=== PATIENT | female | born 1965 | race Two or more races ===

== ENCOUNTER 2020-07-01 09:22 | Outpatient (REF) | payer MEDICAID, SELFPAY ==
[2020-07-01 10:48] LABS: MANUAL DIFF FLAG NO
[2020-07-01 10:57] LABS: Basophils Absolute Auto 0.1 X10*3/uL (0.0-0.2); Eosinophils Absolute Auto 0.1 X10*3/uL (0.0-0.4); Eosinophils Percent Auto 1.7 % (0-4); Hematocrit 44.6 % (37-47); Hemoglobin 14.4 g/dl (12.0-16.0); Imm Gran Abs Auto 0.01 X10*3/uL (0.00-0.03); Imm Gran Pct Auto 0.2 % (0.0-0.4); Lymphocytes Absolute Auto 1.9 X10*3/uL (1.2-4.9); Lymphocytes Percent Auto 39.4 % (20-40); Mean Corpuscular HGB Conc 32.3 g/dl (31.0-35.0); Mean Corpuscular Hemoglobin 28.2 pg (27.0-33.0); Mean Corpuscular Volume 87.3 fL (80-98); Mean Platelet Volume 8.8 fL (9.4-12.3); Monocytes Absolute Auto 0.4 X10*3/uL (0.1-1.2); Monocytes Percent Auto 7.5 % (2-11); Neutrophils Absolute Auto 2.4 X10*3/uL (2.0-8.3); Neutrophils Percent Auto 50.2 % (45-73); Platelet Count 312 X10*3/uL (160-400); Red Blood Count 5.11 X10*6/uL (4.20-5.50); Red Cell Distribution Width 13.7 % (11.0-16.0); White Blood Count 4.8 X10*3/uL (4.8-10.8)
[2020-07-01 11:02] LABS: Estimated Average Glucose 114 mg/dL; Hemoglobin A1c % 5.6 %
[2020-07-01 11:30] LABS: Alanine Aminotransferase 14 U/L (0-31); Albumin Level 4.2 g/dL (3.5-5.0); Alkaline Phosphatase 110 U/L (39-117); Anion Gap 10 (12-20); Aspartate Amino Transferase 17 U/L (5-31); Bilirubin Total 1.2 mg/dL (0.0-1.0); Blood Urea Nitrogen 9 mg/dL (9-16); C Reactive Protein 0.04 mg/dL (< or = 0.50); Calcium 8.8 mg/dL (8.4-10.2); Carbon Dioxide 32 mmol/L (22-29); Chloride 102 mmol/L (96-108); Cholesterol 201 mg/dL; Estimated Glomerular Filt Rate > 60; Glucose Random 91 mg/dL (60-115); HDL Cholesterol 63 mg/dL; Iron 91 mcg/dL (30-160); LDL Cholesterol Calculated 127 mg/dl; Percent Iron Saturation 20 % (15-50); Potassium 3.9 mmol/l (3.3-5.1); Sodium 140 mmol/L (135-145); Total Iron Binding Capacity 457 mcg/dL (228-428); Triglycerides 58 mg/dL; Unsaturated Iron Binding 366 ug/dL
[2020-07-01 11:52] LABS: Ferritin 16 ng/mL (10-250); TSH reflex Free T4 0.67 mIU/mL (0.32-4.0); Vitamin D 25-OH Total 29.8 ng/mL (>30)
[2020-07-01 12:00] LABS: Vitamin B12 728 pg/mL (200-900)
[2020-07-02 12:11] LABS: Insulin Level Total 3.3 uIU/mL
[2020-07-02 22:57] LABS: Calcium (PTHI) 9.3 mg/dL (8.6-10.4); PTHI 36 pg/mL (14-64)
[2020-07-04 01:12] LABS: Zinc 63 mcg/dL (60-130)
[2020-07-05 12:52] LABS: Vitamin B1 6 nmol/L (8-30)
[2020-07-06 10:31] LABS: Vitamin A 37 mcg/dL (38-98)
== END 2020-07-01 09:23 | disposition home or self-care (01) ==
LOC: HO.LAB 09:22
PROVIDERS: Visit Provider Physician Assistant
DX: Z01.419 Encounter for gynecological examination (general) (routine) without abnormal findings (principal); Z98.84 Bariatric surgery status
CPT/HCPCS: 36415; 80053; 80061; 82306; 82607; 82728; 82746; 83036; 83525; 83540; 83970; 84425; 84443; 84590; 84630; 85025; 86140

== ENCOUNTER 2020-08-08 10:07 | Outpatient (REF) | payer MEDICAID, SELFPAY ==
[2020-08-08 11:05] LABS: Hematocrit 45.2 % (37-47); Hemoglobin 14.3 g/dl (12.0-16.0); Mean Corpuscular HGB Conc 31.6 g/dl (31.0-35.0); Mean Corpuscular Hemoglobin 27.8 pg (27.0-33.0); Mean Corpuscular Volume 87.8 fL (80-98); Mean Platelet Volume 8.7 fL (9.4-12.3); Platelet Count 317 X10*3/uL (160-400); Red Blood Count 5.15 X10*6/uL (4.20-5.50); Red Cell Distribution Width 13.3 % (11.0-16.0); White Blood Count 5.7 X10*3/uL (4.8-10.8)
[2020-08-08 11:15] LABS: Glucose Urine UA NEG (NEG); Leukocyte Esterase Urine TRACE (NEG); Nitrite Urine NEG (NEG); PH 6.5 (5.0-8.0); Urine Blood NEG (NEG); Urine Ketones NEG (NEG); Urine Protein NEG (NEG-TRACE)
[2020-08-08 11:16] LABS: Appearance Urine CLEAR; Color Urine YELLOW
[2020-08-08 11:23] LABS: Estimated Average Glucose 111 mg/dL; Hemoglobin A1c % 5.5 %
[2020-08-08 11:24] LABS: Anion Gap 12 (12-20); Blood Urea Nitrogen 7 mg/dL (9-16); C Reactive Protein 0.03 mg/dL (< or = 0.50); Calcium 9.4 mg/dL (8.4-10.2); Carbon Dioxide 29 mmol/L (22-29); Chloride 104 mmol/L (96-108); Cholesterol 190 mg/dL; Estimated Glomerular Filt Rate > 60; Glucose Random 90 mg/dL (60-115); HDL Cholesterol 65 mg/dL; Iron 125 mcg/dL (30-160); LDL Cholesterol Calculated 110 mg/dl; Percent Iron Saturation 27 % (15-50); Potassium 3.8 mmol/l (3.3-5.1); Sodium 141 mmol/L (135-145); Total Iron Binding Capacity 464 mcg/dL (228-428); Triglycerides 75 mg/dL; Unsaturated Iron Binding 339 ug/dL
[2020-08-08 11:50] LABS: TSH reflex Free T4 1.06 mIU/mL (0.32-4.0); Vitamin D 25-OH Total 28.5 ng/mL (>30)
[2020-08-08 12:01] LABS: Vitamin B12 610 pg/mL (200-900)
[2020-08-08 12:15] LABS: Mucus Urine 1+ /LPF; RBC Urine 0 /HPF (0); Renal Epithelial Cells Urine TRACE /LPF; Squamous Epithelial Cell Urine TRACE /LPF
[2020-08-08 12:23] LABS: Ferritin 14 ng/mL (10-250)
[2020-08-09 08:42] LABS: HIV AB/AG Nonreactive (Nonreactive); HIV Num 1 0.14 S/CO (0.00-0.99)
[2020-08-09 09:40] LABS: ~HepC Num1 0.07 S/CO (0.00-0.79); ~Hepatitis C Antibody Nonreactive (Nonreactive)
== END 2020-08-08 10:08 | disposition home or self-care (01) ==
LOC: HO.LAB 10:07
PROVIDERS: Visit Provider Nurse Practitioner Primary Care
DX: Z00.00 Encounter for general adult medical examination without abnormal findings (principal); R10.31 Right lower quadrant pain; R30.0 Dysuria; Z98.84 Bariatric surgery status
CPT/HCPCS: 36415; 80048; 80061; 81001; 82306; 82607; 82728; 82746; 83036; 83540; 84443; 85027; 86140; 86803; 87086; 87389

== ENCOUNTER 2020-08-13 12:26 | Outpatient (REF) | payer MEDICAID, SELFPAY ==
--- NOTE | 2020-08-13 12:29 | CT_ITS ---
EXAMINATION: CT ABDOMEN AND PELVIS WITHOUT CONTRAST CLINICAL INFORMATION: Right lower quadrant pain. COMPARISON: None. TECHNIQUE: Multidetector volumetric imaging was performed from the superior aspect of the liver through the pubic symphysis. Sagittal and coronal reformatted images were obtained on the technologist's workstation. This CT examination was performed using dose optimization techniques as appropriate, variously including the following: *Automated exposure control *Adjustment of mA and/or kV according to patient size (this includes techniques or standardized protocols for targeted exams where dose is matched to indication/reason for exam; i.e. extremities or head) *Use of iterative reconstruction technique DLP: 365 mGy-cm FINDINGS: LUNG BASES: The visualized lung bases are unremarkable. LIVER, GALLBLADDER, AND BILIARY TREE: The liver is normal in size, shape, and attenuation. No focal hepatic lesion or biliary ductal dilatation is present. The gallbladder has been surgically removed. PANCREAS: Unremarkable. SPLEEN: Unremarkable. ADRENAL GLANDS: Unremarkable. KIDNEYS AND URETERS: The kidneys are normal in size, shape, and attenuation. No hydronephrosis, hydroureter, or calculi seen. No perinephric stranding. BLADDER: Unremarkable. GASTROINTESTINAL TRACT: There is large amount of stool seen throughout the colon without significant distention. The small bowel loops are opacified with oral contrast and are normal caliber. Appendix is not visualized. There are surgical ld in the right lower quadrant, likely from previous appendectomy. ABDOMINAL WALL: No significant hernia is appreciated. LYMPH NODES: Normal. VASCULAR: Unremarkable. PELVIC VISCERA: No free fluid. OSSEOUS STRUCTURES: There are degenerative disc changes with vacuum disc phenomena L5-S1 disc level. No lytic or sclerotic process seen. CT/CT abdomen pelvis wo con IMPRESSION: Significant constipation with large amount of stool seen in the right colon and right lower quadrant. Surgical ld in the right lower quadrant, likely from previous appendectomy. Correlate clinically. The gallbladder has been surgically removed.
== END 2020-08-13 12:27 | disposition home or self-care (01) ==
LOC: HO.CT 12:26
PROVIDERS: Visit Provider Nurse Practitioner Primary Care
DX: R10.31 Right lower quadrant pain (principal)
CPT/HCPCS: 74176

== ENCOUNTER 2020-08-20 08:46 | Outpatient (REF) | payer MEDICAID, SELFPAY ==
--- NOTE | 2020-08-20 08:58 | MM_ITS ---
EXAMINATION: MM SCREENING DIGITAL BREAST TOMOSYNTHESIS, BILATERAL CLINICAL INFORMATION: Screening. Asymptomatic. The lifetime risk of breast cancer based on the Tyrer-Cuzick Model is 8%. COMPARISON: Mammography: 11/08/2018, 07/12/2017, 07/09/2015, 08/31/2013, 03/24/2013, 02/15/2012 TECHNIQUE: Digital breast tomosynthesis is performed in both the craniocaudal and mediolateral oblique views along with computer-aided detection (CAD). Synthesized 2D images are generated from the tomosynthesis. FINDINGS: There are scattered areas of fibroglandular density (ACR BI-RADS breast composition Category b). The breast parenchyma is similar to prior exam. There is no developing density or interval mass or architectural abnormality. There are no abnormal calcifications in either breast. The left MLO view has probable axillary node 12-13 cm from nipple measuring 0.6 x 0.4 cm. This appears high attenuation and margins are ill-defined. Patient will be recalled to further characterize. MM/MM tomosynthesis screening BI IMPRESSION: 1. Left: High attenuation nodule under 1 cm with ill-defined margins left axilla, likely node. 2. Right: No mammographic evidence of malignancy. ASSESSMENT: BI-RADS 0: Incomplete - Need Additional Imaging Evaluation RECOMMENDATION: 1. Additional views of the left breast (3-D spot MLO, 2-D magnification MLO). 2. Targeted ultrasound if warranted after review of the additional views. 3. Radiology department staff will contact the patient for additional imaging. This patient's information was entered into a reminder system with a target due date for their next mammogram.
== END 2020-08-20 08:47 | disposition home or self-care (01) ==
LOC: HO.MAMMO 08:46
PROVIDERS: Visit Provider Obstetrics & Gynecology
DX: Z12.31 Encounter for screening mammogram for malignant neoplasm of breast (principal)
CPT/HCPCS: 77063; 77067

== ENCOUNTER 2020-09-18 14:31 | Outpatient (REF) | payer MEDICAID, SELFPAY ==
--- NOTE | 2020-09-18 14:36 | US_ITS ---
EXAMINATION: US DIAGNOSTIC BREAST, LEFT MM DIAGNOSTIC BREAST, LEFT CLINICAL INFORMATION: High attenuation nodule in the left axilla. COMPARISON: 08/20/2020 and studies dating back to 08/31/2013. TECHNIQUE Ultrasound of the breast is performed with real-time grissom scale imaging and color Doppler. Diagnostic left mammography consisting of mediolateral oblique spot compression imaging with tomosynthesis. FINDINGS: MAMMOGRAM: Mammography views of the left axilla demonstrate a 6 x 5 mm poorly circumscribed density with calcifications throughout. No rim calcifications are present. It is noted that the patient has a large number of tattoos about her chest and arm, however, they have been present for many years and the finding of the calcified density is new compared to prior studies. Patient denies rheumatoid arthritis with goal treatments. ULTRASOUND: Targeted ultrasound evaluation about the left axilla did not demonstrate any abnormal cystic or solid masses. Normal-appearing lymph nodes are present without cortical thickening or lobulation. Results are discussed with the patient at time of visit. US/US breast LT limited IMPRESSION: 1. Indeterminate poorly circumscribed lesion containing a large number of indeterminate calcifications. 2. No ultrasound correlate is identified. ASSESSMENT: BI-RADS 4: Suspicious. RECOMMENDATION: Attempt at stereotactic core biopsy. If this is not possible, would recommend needle localization with surgical excision. Patient would not stay for attempt to see if lesion could be imaged with stereotactic guidance. Report will be called by [facility] patient navigator when the office is next open.
--- NOTE | 2020-09-18 14:36 | MM_ITS ---
EXAMINATION: MM DIAGNOSTIC DIGITAL BREAST TOMOSYNTHESIS, LEFT CLINICAL INFORMATION: Calcified nodule left axilla. COMPARISON: 08/20/2020 and studies dating back to 08/31/2013. TECHNIQUE Diagnostic left mammography consisting of mediolateral oblique spot compression imaging with tomosynthesis. FINDINGS: Breast parenchyma is a mixture of fibroglandular tissue (ACR BI-RADS breast density composition category B) Mammography views of the left axilla demonstrate a 6 x 5 mm poorly-circumscribed density with calcifications throughout. It is noted that the patient has a large number of tattoos about her chest and arm, however, they have been present for many years and the finding of the calcified density is new compared to prior studies. Patient denies rheumatoid arthritis with gold treatments. Results are discussed with the patient at time of visit. MM/MM tomosynthesis added views L IMPRESSION: Indeterminate poorly-circumscribed lesion containing a large number of indeterminate calcifications. No ultrasound correlate is identified. ASSESSMENT: BI-RADS 4: Suspicious RECOMMENDATION: Attempt at stereotactic core biopsy. If this is not possible would recommend needle localization with surgical excision. Patient would not stay for attempt to see if lesion could be imaged with stereotactic guidance. Report will be called by [facility] patient navigator when the office is next open.
== END 2020-09-18 14:32 | disposition home or self-care (01) ==
LOC: HO.MAMMO 14:31
PROVIDERS: Visit Provider Obstetrics & Gynecology
DX: R92.8 Other abnormal and inconclusive findings on diagnostic imaging of breast (principal); E21.3 Hyperparathyroidism, unspecified
CPT/HCPCS: 76642; 77061; 77065

== ENCOUNTER → 2020-09-19 12:21 | Outpatient (BNVA) | payer MEDICAID, SELFPAY | PROVIDERS: Visit Provider Obstetrics & Gynecology ==

== ENCOUNTER 2020-10-29 09:11 | Outpatient (REF) | payer MEDICAID, SELFPAY ==
--- NOTE | ~2020-10-29 | US_ITS ---
EXAMINATION: STEREOTACTIC TOMOSYNTHESIS-GUIDED VACUUM-ASSISTED BREAST BIOPSY, LEFT US BREAST ULTRASOUND LIMITED, LEFT SPECIMEN RADIOGRAPH, LEFT POST PROCEDURE DIGITAL MAMMOGRAM, LEFT CLINICAL INFORMATION: Oval nodule upper left breast 0.6 x 0.4 cm with dense attenuation. Numerous tattoos on extremities and torso. Also history gold therapy for rheumatoid arthritis. Patient also notes history uterine cancer. COMPARISON: Mammography 09/18/2020, 08/20/2020, targeted left breast ultrasound 09/18/2020. TECHNIQUE/PROCEDURE: Informed consent was obtained from the patient after discussion of the benefits, risks, and alternatives to biopsy today. Patient appeared to understand. Gave opportunity for questions. Patient signed consent form. PRELOCALIZATION MAMMOGRAPHY: Prior to procedure, 3 localization with digital mammography is performed with fenestrated paddle and imaging in MLO x3, CC, and exaggerated CC views. BB placed over the site of high attenuation nodule upper left breast, 15 cm from nipple. The high attenuation nodule is only visible in the MLO view and not visible on the CC or exaggerated CC projections. US LIMITED BREAST, LEFT: Ultrasound is targeted to the horizontal plane along the 3 localization BB. This included ultrasound of the left axilla. No cystic or solid mass or lymphadenopathy is demonstrated. There is no specular echo with posterior shadowing to correspond to the recent mammographic finding. STEREOTACTIC BIOPSY, LEFT: BIOPSY TABLE: [employer] Prone Biopsy System. Patient prone oblique with arm through hole. LESION: High attenuation nodule posterior upper outer quadrant. LOCAL ANESTHESIA: 8 mL 1% lidocaine; 10 mL 1% lidocaine with epinephrine. DERMATOTOMY: Single skin clayton dermatotomy performed. NEEDLE: [employer] Eviva 9-gauge vacuum assisted core biopsy device. APPROACH: lateral medial. TARGETING: Digital breast tomosynthesis used for targeting. CORES: 6. CLIP: [employer] SecurMark Cylinder-shaped marker. SPECIMEN RADIOGRAPH: Specimen radiograph is taken in separate room using digital mammography. There is dense compact high attenuation in 2 of the cores consistent with the targeted nodule. POST PROCEDURE UNILATERAL DIGITAL MAMMOGRAM: The post biopsy mammogram is performed in separate room using separate digital mammography equipment from the biopsy procedure. Single MLO view is obtained. There are scattered areas of fibroglandular density (breast composition category: b). The clip marker is in position. The high attenuation nodule is no longer demonstrated with certainty. No gross hematoma. The patient tolerated the procedure well. No immediate complications. Home instructions reviewed with the patient. Final pathology results are pending. US/US breast LT limited IMPRESSION: 1. Digital tomosynthesis-guided core biopsy left breast with clip placement. 2. Specimen radiograph taken and post procedure mammogram. There is satisfactory positioning of the biopsy clip. 3. Final pathology results pending. An addendum report will be issued.
== END 2020-10-29 09:12 | disposition home or self-care (01) ==
LOC: HO.MAMMO 09:11
PROVIDERS: PCP Surgery; Visit Provider Surgery
DX: R92.8 Other abnormal and inconclusive findings on diagnostic imaging of breast (principal); N64.52 Nipple discharge; Z79.899 Other long term (current) drug therapy
CPT/HCPCS: 19081; 76642; 88305; 99202; A4648

== ENCOUNTER → 2020-11-01 08:13 | Outpatient (BNVA) | payer MEDICAID, SELFPAY | PROVIDERS: PCP Surgery; Visit Provider Physician Assistant | DX: R92.8 Other abnormal and inconclusive findings on diagnostic imaging of breast (principal); Z98.84 Bariatric surgery status; Z79.899 Other long term (current) drug therapy | CPT/HCPCS: 99212 ==

== ENCOUNTER → 2020-11-20 10:02 | Outpatient (BNVA) | payer MEDICAID, SELFPAY | PROVIDERS: Visit Provider Internal Medicine Endocrinology, Diabetes & Metabolism ==

== ENCOUNTER 2021-06-04 22:55 | Emergency (ER) | payer MEDICAID, SELFPAY ==
[2021-06-04 23:34] VITALS: BP 126/90; PULSE 77; RESP 18; TEMP 36.6; O2SAT 99; BMI 23.3
[2021-06-05] MEDS: Ibuprofen 800 MG TABLET PO (00:38)
[2021-06-05] MEDS: Acetaminophen 325 MG TABLET 650 MG PO (00:38)
[2021-06-05] MEDS: Amoxicillin/Potassium Clav 875 MG TABLET PO (00:39)
--- NOTE | 2021-06-05 00:42 | ED.GENADULT ---
HPI - General Adult General Chief complaint: Skin/Abscess/Foreign Body Stated complaint: fb in ear/earache Time Seen by Provider: 06/05/21 00:29 Source: patient Mode of arrival: ambulatory Limitations: no limitations History of Present Illness HPI narrative: Patient presents to the ED for right ear pain. Patient states she had cotton swab qtip that was present for 2 weeks and now having ear pain. patient denies any recent ear trauma, ear discharge, bleeding from ears, headache, nausea, emesis, or dizziness. Related Data Home Medications Medication Instructions Recorded Confirmed cyanocobalamin (vitamin B-12) 1,000 mcg PO DAILY 07/05/20 11/20/20 1,000 mcg capsule Previous Rx's Medication Instructions Recorded levothyroxine 25 mcg capsule 25 mcg PO DAILY #30 cap 08/27/20 imipramine HCl 10 mg tablet 10 mg PO BID 90 Days #180 tab 02/14/21 pediatric multivitamin no.17 1 tab PO DAILY #30 tab 02/19/21 calcium citrate 250 mg PO TID #90 tab 03/27/21 cholecalciferol (vitamin D3) 50 50 mcg PO DAILY #30 cap 03/27/21 mcg (2,000 unit) capsule gabapentin 100 mg capsule 100 mg PO TID #270 cap 04/15/21 tramadol 50 mg tablet 50 mg PO TID PRN #90 tab 04/15/21 amoxicillin 875 mg-potassium 1 tab PO Q12H 10 Days #20 tab 06/05/21 clavulanate 125 mg tablet (Augmentin) naproxen 500 mg tablet 500 mg PO BID PRN #20 tab 06/05/21 Allergies Allergy/AdvReac Type Severity Reaction Status Date / Time ondansetron [From ZOFRAN] Allergy Unknown per H&P Verified 10/29/20 08:42 sumatriptan [From IMITREX] Allergy Unknown RASH FROM Verified 10/29/20 08:42 TABLET NOT INJECTION promethazine [From PHENERGAN] AdvReac Severe DYSTONIA Verified 10/29/20 08:42 Review of Systems Review of Systems: Yes all other systems are reviewed and are negative Constitutional: Constitutional: Reports as per HPI and Reports no additional constitutional complaints Eyes: Eyes: Reports as per HPI and Reports no additional eye complaints ENT: Reports system reviewed and no additional complaints, except as documented, Reports as per HPI and Reports otalgia Cardiovascular: Cardiovascular: Reports as per HPI and Reports no additional cardiovascular complaints Respiratory: Respiratory: Reports as per HPI and Reports no additional respiratory complaints Gastrointestinal: Gastrointestinal: Reports as per HPI and Reports no additional gastrointestinal complaints Genitourinary: Genitourinary: Reports no additional female genitourinary complaints and Reports as per HPI Musculoskeletal: Musculoskeletal: Reports no additional musculoskeletal complaints and Reports as per HPI Integumentary/Breasts: Skin/Breast: Reports system reviewed and no additional complaints, except as docu and Reports as per HPI Neurologic: Reports system reviewed and no additional complaints, except as documented and Reports as per HPI Psychiatric: Psychiatric: Reports no additional psychiatric complaints and Reports as per HPI [facility] Past Medical History Medical History (Updated 06/05/21 @ 00:44 by RAMONE Desir) History of secondary hyperparathyroidism Hyperparathyroidism Surgical History H/O left breast biopsy H/O: hysterectomy History of appendectomy History of bilateral tubal ligation S/P gastric bypass Family History Family History Mother Uterine cancer Social History Social History Alcohol intake: never Advance Directives: No Advance Directives Information Provided: No Patient : No Sexual orientation: Straight/Heterosexual Gender identity: Female Physical Exam Vital Signs: Vital Signs: Last Vital Signs Temp 97.9 F 06/04/21 23:34 Pulse 77 06/04/21 23:34 Resp 18 06/04/21 23:34 BP 126/90 H 06/04/21 23:34 Pulse Ox 99 06/04/21 23:34 Body Mass Index 23.3 Const: General: cooperative, healthy appearing, comfortable, no acute distress and well developed Orientation/consciousness: patient oriented x3 HENMT: Other: Ear exams negative for any foreign body or cotton swab. Head: Yes normal to inspection, Yes No palpable skull fracture present, Yes normocephalic and Yes atraumatic Ears: hearing grossly normal bilaterally, external ears normal and TM abnormal (right ear) erythematous Eyes: General: appearance normal, both eyes and all related structures Neck: Neck: Yes normal visual inspection, Yes full ROM, Yes no lymphadenopathy, Yes no meningeal signs, Yes trachea midline, Yes supple and No tender Chest: Chest palpation & inspection: normal inspection of the chest and normal palpation of entire chest wall Resp: Effort & Inspection: normal respiratory effort and able to speak in complete sentences Cardio: Jugular venous distension: no JVD Heart sounds: S1 normal heart sound present and S2 normal heart sound present GI: Inspection: Yes normal to inspection and No abdominal wall ecchymosis Palpation (GI): Soft to palpation, not firm, nontender, no guarding and not rigid : General: No CVA tenderness and Yes no CVA tenderness Back/Spine/Pelvis: Back: no CVA tenderness, No CVA tenderness and No back tenderness Skin: General skin exam: no rashes or lesions noted and elasticity normal Neuro: General: patient oriented x3, gait normal, no meningeal signs and CN's II-XI intact bilaterally Cranial nerves: Yes CN's II-XII intact bilaterally Extrem: General: Yes normal to inspection and Yes full ROM Psych: Appearance: grossly normal, well kempt and not disheveled Course Course Course Narrative: Ear exam negative for foreign body. Reevaluation(s) Reevaluation #1: Ear exam shows otitis media. patient discharged with antibiotics. Time: 00:58 Medical Decision Making [facility] Narrative Medical decision making narrative: Otitis media Discharge Plan Discharge Clinical Impression: Otitis media Patient Disposition: Home, Self-Care Instructions: Ear Infection (ED) Additional Instructions: Return to the ED immediately for worsening ear pain, swelling, redness, pus discharge, headache, foul odor, fever, chills, or any other concerning symptoms. Prescriptions: New amoxicillin-pot clavulanate [Augmentin] 875-125 mg tablet 1 tab PO Q12H 10 Days Qty: 20 RF: 0 naproxen 500 mg tablet 500 mg PO BID PRN (Reason: pain) Qty: 20 RF: 0 No Action cyanocobalamin (vitamin B-12) 1,000 mcg capsule 1,000 mcg PO DAILY RF: 0 levothyroxine 25 mcg capsule 25 mcg PO DAILY Qty: 30 RF: 3 imipramine HCl 10 mg tablet 10 mg PO BID 90 Days Qty: 180 RF: 0 pediatric multivitamin no.17 Tablet,Chewable 1 tab PO DAILY Qty: 30 RF: 8 calcium citrate 250 mg calcium tablet 250 mg PO TID Qty: 90 RF: 0 cholecalciferol (vitamin D3) 50 mcg (2,000 unit) capsule 50 mcg PO DAILY Qty: 30 RF: 11 gabapentin 100 mg capsule 100 mg PO TID Qty: 270 RF: 0 tramadol 50 mg tablet 50 mg PO TID PRN (Reason: pain) Qty: 90 RF: 2 Stand Alone Forms: Work/School Release Print Language: Indonesian
== END 2021-06-05 01:07 | disposition home or self-care (01) ==
PROVIDERS: Emergency Provider Internal Medicine
DX: H66.91 Otitis media, unspecified, right ear (principal)
CPT/HCPCS: 99283; 99284

== ENCOUNTER 2021-07-01 06:28 | Day surgery (SDC) | payer MEDICAID, SELFPAY ==
--- NOTE | 2021-06-30 10:53 | HO.ANESPROP2 ---
Documented by User: Shey Marrufo NP 06/30/21 10:54 HPI - Anesthesia Eval Consult details Narrative: 56yo F for Colonoscopy PMFSH Active Problems Active Problems: All Active Problems (Updated 06/06/21 @ 00:01 by Mary Sevilla) History of secondary hyperparathyroidism (Acute) Abnormal mammogram (Acute) Hyperparathyroidism (Acute) Well woman exam (Acute) Past Medical History Medical History History of secondary hyperparathyroidism Hyperparathyroidism Family History Family History Mother Uterine cancer Surgical History Surgical History H/O left breast biopsy H/O: hysterectomy History of appendectomy History of bilateral tubal ligation S/P gastric bypass Social History Social History Alcohol intake: never Patient Tobacco Use Status: Never used Tobacco Use of substances other than those prescribed or required for medical reasons: No Are you DNR?: No Advance Directives: No Advance Directives Information Provided: Yes Recently lost weight without trying: No Nutrition Risks: No Nutritional Risk Sexual orientation: Straight/Heterosexual Gender identity: Female Meds Allergies Allergy/AdvReac Type Severity Reaction Status Date / Time ondansetron [From ZOFRAN] Allergy Unknown per H&P Verified 10/29/20 08:42 sumatriptan [From IMITREX] Allergy Unknown RASH FROM Verified 10/29/20 08:42 TABLET NOT INJECTION promethazine [From PHENERGAN] AdvReac Severe DYSTONIA Verified 10/29/20 08:42 Home Medications Medication Instructions Recorded Confirmed Last Taken Type cyanocobalamin (vitamin B-12) 1,000 mcg PO DAILY 07/05/20 11/20/20 Unknown History 1,000 mcg capsule Exam Exam Date and Time: June 30, 2021 105 Assessment and Plan Assessment Anesthesia Assessment: Chart Reviewed Documented by User: Cristiane Valdez MD 07/01/21 07:52 [facility] Past Medical History Medical History History of secondary hyperparathyroidism Hyperparathyroidism Family History Family History Mother Uterine cancer Family history of problems with anesthesia: No Surgical History Surgical History H/O left breast biopsy H/O: hysterectomy History of appendectomy History of bilateral tubal ligation S/P gastric bypass History of Problems with Anesthesia: No Social History Social History Alcohol intake: never Patient Tobacco Use Status: Never used Tobacco Use of substances other than those prescribed or required for medical reasons: No Are you DNR?: No Advance Directives: No Advance Directives Information Provided: Yes Recently lost weight without trying: No Nutrition Risks: No Nutritional Risk Sexual orientation: Straight/Heterosexual Gender identity: Female Meds Allergies Allergy/AdvReac Type Severity Reaction Status Date / Time ondansetron [From ZOFRAN] Allergy Unknown per H&P Verified 10/29/20 08:42 sumatriptan [From IMITREX] Allergy Unknown RASH FROM Verified 10/29/20 08:42 TABLET NOT INJECTION promethazine [From PHENERGAN] AdvReac Severe DYSTONIA Verified 10/29/20 08:42 Home Medications Medication Instructions Recorded Confirmed Last Taken Type cyanocobalamin (vitamin B-12) 1,000 mcg PO DAILY 07/05/20 11/20/20 Unknown History 1,000 mcg capsule Exam Height,Weight and Vital Signs: Height 5 ft 5 in Weight 65.771 kg Vital Signs Temp Pulse Resp BP 07/01/21 06:40 97.4 F 78 16 141/117 H Airway Mallampati Class: II TM Dist: >3cm Neck ROM: Full Loose/Missing/Broken Teeth: Yes (Some broken) Heart: RRR Lungs: CTAB Assessment and Plan Final Anesthetic Review Family History of Problems with Anesthesia: No History of Problems with Anesthesia: No NPO: Yes ASA Class: II Final Preanesthetic Review: No Changes in Pt Med Stat, Meds/Allgs Chart Reviewed, Consent Obtained/Reviewed and Anes Risks/Benef Reviewed Patient Risk: Low Procedure Risk: Low Assessment/Block/Sedation in SS: Assess/Block/Sedation-SS Anesthetic Plan Anesthetic Plan: MAC: Disposition: Standard PACU
[2021-07-01 06:32] VITALS: BMI 24.1
[2021-07-01 06:40] VITALS: BP 141/117; PULSE 78; RESP 16; TEMP 36.3
[2021-07-01] MEDS: Lactated Ringers 1,000 ML 100 ML IVCONT (06:59)
--- NOTE | 2021-07-01 07:32 | MHC.SHP ---
Pre-Procedural Eval Section A Date of Service: 07/01/21 The patient is an INPATIENT: No Changes since office visit: No Cold of Flu in the past 2 weeks, No New Medical Problems, No Changes in Medication and No Patient answered all questions The History & Physical has been completed within 30 days and I have reviewed it.: Yes Section B Chief Complaint: bleeding from rectum Allergies: Allergies Allergy/AdvReac Type Severity Reaction Status Date / Time ondansetron [From ZOFRAN] Allergy Unknown per H&P Verified 10/29/20 08:42 sumatriptan [From IMITREX] Allergy Unknown RASH FROM Verified 10/29/20 08:42 TABLET NOT INJECTION promethazine [From PHENERGAN] AdvReac Severe DYSTONIA Verified 10/29/20 08:42 Plan I have reviewed the history and physical and performed a pertinent physical examination on my patient. No changes have occurred unless specified.
--- NOTE | 2021-07-01 08:08 | PM.OP ---
Brief Operative Note Date of Service: 07/01/21 Pre-op diagnosis: rectal bleeding Post-op diagnosis: same Procedure: colonoscopy Surgeon: Fidencio Vila Anesthesia: MAC Estimated blood loss (mL): 0 Pathology: none sent Condition: stable
[2021-07-01 08:10] VITALS: BP 110/76; PULSE 103; RESP 16; TEMP 36.1; O2SAT 99
[2021-07-01 08:25] VITALS: BP 121/71; PULSE 81; RESP 17; TEMP 36.1; O2SAT 100
--- NOTE | 2021-07-01 11:31 | OP_ITS ---
SURGEON: Fidencio Vila MD INDICATIONS: Rectal bleeding. PREOPERATIVE DIAGNOSIS: POSTOPERATIVE DIAGNOSIS: PROCEDURE PERFORMED: Colonoscopy to the terminal ileum. ESTIMATED BLOOD LOSS: COMPLICATIONS: ANESTHESIA: ASSISTANTS: SPECIMENS: MEDICATIONS: Monitored anesthesia care. DESCRIPTION OF PROCEDURE: History and physical performed. The risks and benefits of the procedure were explained to the patient. Informed consent was obtained. The patient was placed in the left lateral decubitus position. A digital rectal exam was performed and was found to be normal. The Olympus pediatric video colonoscope was introduced into the rectum and advanced to the cecum without difficulty. The cecum was identified by transillumination, palpation, and identification of ileocecal valve. Examination was performed and the scope was removed. She tolerated the procedure well and was taken to recovery area in stable condition. FINDINGS: The terminal ileum was examined and appeared normal. The visualized colonic mucosa was normal. The quality of the prep was good. No polyps were identified. Retroflexed examination was normal. IMPRESSION: Normal colonoscopy. RECOMMENDATIONS: 1. Follow up as needed. 2. Repeat colonoscopy is recommended in 10 years for average risk individuals. MD PEYMAN Roberts/MECHELLE / [id number]
== END 2021-07-01 08:55 | disposition home or self-care (01) ==
PROVIDERS: Visit Provider Internal Medicine Gastroenterology
PROC: 0DJD8ZZ Inspection of Lower Intestinal Tract, Via Natural or Artificial Opening Endoscopic (ICD-10-PCS; CPT 45378; principal; 2021-07-01 07:30)
DX: K62.5 Hemorrhage of anus and rectum (principal); K21.9 Gastro-esophageal reflux disease without esophagitis; K58.9 Irritable bowel syndrome, unspecified; I10 Essential (primary) hypertension; E78.00 Pure hypercholesterolemia, unspecified; G43.909 Migraine, unspecified, not intractable, without status migrainosus; J45.909 Unspecified asthma, uncomplicated; Z79.51 Long term (current) use of inhaled steroids; Z79.899 Other long term (current) drug therapy; Z85.42 Personal history of malignant neoplasm of other parts of uterus; Z98.84 Bariatric surgery status; Z98.51 Tubal ligation status
CPT/HCPCS: 45378

== ENCOUNTER 2021-07-18 10:59 | Day surgery (SDC) | payer MEDICAID, SELFPAY ==
--- NOTE | 2021-07-17 09:40 | P.CONAN_ITS ---
Documented by User: Shey Marrufo NP 07/17/21 09:40 HPI - Anesthesia Eval Consult details Narrative: 56yo F for Upper Endoscopy s/p colo with MAC 07/01/21 PMFSH Active Problems Active Problems: All Active Problems (Updated 06/06/21 @ 00:01 by Mary Sevilla) History of secondary hyperparathyroidism (Acute) Abnormal mammogram (Acute) Hyperparathyroidism (Acute) Well woman exam (Acute) Past Medical History Medical History History of secondary hyperparathyroidism Hyperparathyroidism Family History Family History Mother Uterine cancer Family history of problems with anesthesia: No Surgical History Surgical History H/O left breast biopsy H/O: hysterectomy History of appendectomy History of bilateral tubal ligation S/P gastric bypass History of Problems with Anesthesia: No Social History Social History Alcohol intake: never Patient Tobacco Use Status: Never used Tobacco Second Hand Smoke Exposure: No Use of substances other than those prescribed or required for medical reasons: No Are you DNR?: No Advance Directives: No Advance Directives Information Provided: Yes Advance Directives on File: No Sexual orientation: Straight/Heterosexual Gender identity: Female Meds Allergies Allergy/AdvReac Type Severity Reaction Status Date / Time ondansetron [From ZOFRAN] Allergy Unknown per H&P Verified 10/29/20 08:42 sumatriptan [From IMITREX] Allergy Unknown RASH FROM Verified 10/29/20 08:42 TABLET NOT INJECTION promethazine [From PHENERGAN] AdvReac Severe DYSTONIA Verified 10/29/20 08:42 Home Medications Medication Instructions Recorded Confirmed Last Taken Type cyanocobalamin (vitamin B-12) 1,000 mcg PO DAILY 07/05/20 11/20/20 Unknown History 1,000 mcg capsule Exam Exam Date and Time: July 17, 2021 0940 Assessment and Plan Assessment Anesthesia Assessment: Chart Reviewed Final Anesthetic Review Family History of Problems with Anesthesia: No History of Problems with Anesthesia: No Documented by User: Cristiane Valdez MD 07/18/21 12:25 [facility] Past Medical History Medical History History of secondary hyperparathyroidism Hyperparathyroidism Family History Family History Mother Uterine cancer Surgical History Surgical History H/O left breast biopsy H/O: hysterectomy History of appendectomy History of bilateral tubal ligation S/P gastric bypass Social History Social History Alcohol intake: never Patient Tobacco Use Status: Never used Tobacco Second Hand Smoke Exposure: No Use of substances other than those prescribed or required for medical reasons: No Are you DNR?: No Advance Directives: No Advance Directives Information Provided: Yes Advance Directives on File: No Sexual orientation: Straight/Heterosexual Gender identity: Female Meds Allergies Allergy/AdvReac Type Severity Reaction Status Date / Time ondansetron [From ZOFRAN] Allergy Unknown per H&P Verified 10/29/20 08:42 sumatriptan [From IMITREX] Allergy Unknown RASH FROM Verified 10/29/20 08:42 TABLET NOT INJECTION promethazine [From PHENERGAN] AdvReac Severe DYSTONIA Verified 10/29/20 08:42 Home Medications Medication Instructions Recorded Confirmed Last Taken Type cyanocobalamin (vitamin B-12) 1,000 mcg PO DAILY 07/05/20 11/20/20 Unknown History 1,000 mcg capsule Exam Height,Weight and Vital Signs: Height 5 ft 5 in Weight 65.771 kg Vital Signs Temp Pulse Resp BP Pulse Ox 07/18/21 11:26 98.5 F 81 16 137/89 98 Airway Mallampati Class: II TM Dist: >3cm Neck ROM: Full Loose/Missing/Broken Teeth: Yes (Some broken) Heart: RRR Lungs: CTAB Assessment and Plan Assessment Anesthesia Assessment: Anesthesia Plan Discussed Final Anesthetic Review NPO: Yes ASA Class: II Final Preanesthetic Review: No Changes in Pt Med Stat, Meds/Allgs Chart Reviewed, Consent Obtained/Reviewed and Anes Risks/Benef Reviewed Patient Risk: Low Procedure Risk: Low Assessment/Block/Sedation in SS: Assess/Block/Sedation-SS Anesthetic Plan Anesthetic Plan: MAC: Disposition: Standard PACU
[2021-07-18 11:26] VITALS: BP 137/89; PULSE 81; RESP 16; TEMP 36.9; O2SAT 98; BMI 24.1
[2021-07-18] MEDS: Lactated Ringers 1,000 ML 100 ML IVCONT (11:45)
--- NOTE | 2021-07-18 11:46 | PC.NURSE ---
pt has 6 earrings and 2 rings that are unable to be removed. pt educated on the risks of jewelry remaining during procedure which includes possible burn to area where jewelry is place. pt understands and is agreeable to proceed with procedure.
[2021-07-18] MEDS: Acetaminophen 325 MG TABLET 650 MG PO (12:04)
--- NOTE | 2021-07-18 12:08 | MHC.SHP ---
Pre-Procedural Eval Section A Date of Service: 07/18/21 The patient is an INPATIENT: No Changes since office visit: No Cold of Flu in the past 2 weeks, No New Medical Problems, No Changes in Medication and No Patient answered all questions The History & Physical has been completed within 30 days and I have reviewed it.: Yes Section B Chief Complaint: GERD, Dysphagia Allergies: Allergies Allergy/AdvReac Type Severity Reaction Status Date / Time ondansetron [From ZOFRAN] Allergy Unknown per H&P Verified 10/29/20 08:42 sumatriptan [From IMITREX] Allergy Unknown RASH FROM Verified 10/29/20 08:42 TABLET NOT INJECTION promethazine [From PHENERGAN] AdvReac Severe DYSTONIA Verified 10/29/20 08:42 Plan I have reviewed the history and physical and performed a pertinent physical examination on my patient. No changes have occurred unless specified.
--- NOTE | 2021-07-18 12:48 | PM.OP ---
Brief Operative Note Date of Service: 07/18/21 Pre-op diagnosis: dysphagia, abd pain Post-op diagnosis: same (normal) Surgeon: Fidencio Vila Anesthesia: MAC Was an Foam Machine Operator used for this Procedure?: No Estimated blood loss (mL): 2 Pathology: other (bxs egj, gastric remnant) Condition: stable Disposition: PACU
[2021-07-18 12:55] VITALS: BP 108/71; PULSE 94; RESP 16; TEMP 36.9; O2SAT 99
[2021-07-18 13:10] VITALS: BP 118/75; PULSE 82; RESP 16; O2SAT 100
[2021-07-18 13:23] VITALS: BP 122/81; PULSE 78; RESP 16; TEMP 36.9; O2SAT 100
--- NOTE | 2021-07-18 23:39 | OP_ITS ---
SURGEON: Fidencio Vila MD INDICATIONS: Dysphagia and epigastric pain. PREOPERATIVE DIAGNOSIS: POSTOPERATIVE DIAGNOSIS: PROCEDURE PERFORMED: Upper endoscopy with biopsy. ESTIMATED BLOOD LOSS: COMPLICATIONS: ANESTHESIA: Monitored anesthesia care. ASSISTANTS: SPECIMENS: DESCRIPTION OF PROCEDURE: History and physical performed. The risks and benefits of the procedure were explained to the patient. Informed consent was obtained. The patient was placed in a left lateral decubitus position. The Olympus video gastroscope was introduced into the esophagus, stomach, and small bowel. Examination was performed. The scope was removed. She tolerated the procedure well and was taken to recovery room in stable condition. FINDINGS: ESOPHAGUS: The esophagus was normal. There was no stricture. The EG junction was slightly irregular and this was biopsied. There was no esophagitis. STOMACH: There was a small gastric pouch from her previous gastric bypass surgery. The pouch was normal. Biopsies were obtained from the remnant. There was a small staple visible at the anastomosis. The gastrojejunal anastomosis was normal and wide open. The small bowel was explored for approximately 20 cm and appeared normal. IMPRESSION: 1. Dysphagia. 2. Normal upper endoscopy status post gastric bypass. RECOMMENDATION: Follow up the biopsy results. MD PEYMAN Roberts/MECHELLE / [id number]
== END 2021-07-18 13:44 | disposition home or self-care (01) ==
PROVIDERS: Visit Provider Internal Medicine Gastroenterology
PROC: 0DJ08ZZ Inspection of Upper Intestinal Tract, Via Natural or Artificial Opening Endoscopic (ICD-10-PCS; CPT 43235; principal; 2021-07-18 12:20)
DX: R13.10 Dysphagia, unspecified (principal); K29.50 Unspecified chronic gastritis without bleeding; K21.9 Gastro-esophageal reflux disease without esophagitis; Z90.3 Acquired absence of stomach [part of]; Z98.84 Bariatric surgery status; Z88.8 Allergy status to other drugs, medicaments and biological substances
CPT/HCPCS: 43239; 88305; 88342; J3010

== ENCOUNTER → 2021-08-06 11:41 | Outpatient (BNVA) | payer MEDICAID, SELFPAY | PROVIDERS: Visit Provider Obstetrics & Gynecology ==

== ENCOUNTER 2021-08-28 09:08 | Outpatient (REF) | payer MEDICAID, SELFPAY ==
[2021-08-28 10:21] LABS: Alanine Aminotransferase 30 U/L (0-31); Albumin Level 3.7 g/dL (3.5-5.0); Alkaline Phosphatase 115 U/L (39-117); Anion Gap 8 (12-20); Aspartate Amino Transferase 22 U/L (5-31); Bilirubin Total 0.9 mg/dL (0.0-1.0); Blood Urea Nitrogen 12 mg/dL (9-16); Calcium 9.2 mg/dL (8.4-10.2); Carbon Dioxide 29 mmol/L (22-29); Chloride 106 mmol/L (96-108); Estimated Glomerular Filt Rate > 60; Glucose Fasting 98 mg/dL (60-99); Potassium 3.9 mmol/L (3.3-5.1); Sodium 139 mmol/L (135-145); Total Protein 6.8 g/dL (6.5-8.0)
[2021-08-28 10:44] LABS: Vitamin D 25-OH Total 25.6 ng/mL (>30)
[2021-08-28 10:48] LABS: Hematocrit 39.7 % (37.0-47.0); Hemoglobin 12.8 g/dl (12.0-16.0); Mean Corpuscular HGB Conc 32.2 g/dl (31.0-35.0); Mean Corpuscular Hemoglobin 27.5 pg (27.0-33.0); Mean Corpuscular Volume 85.2 fL (80.0-98.0); Mean Platelet Volume 9.1 fL (9.4-12.3); Platelet Count 333 X10*3/uL (160-400); Red Blood Count 4.66 X10*6/uL (4.20-5.50); Red Cell Distribution Width 15.5 % (11.0-16.0); White Blood Count 5.4 X10*3/uL (4.8-10.8)
[2021-08-28 11:44] LABS: Vitamin B12 411 pg/mL (200-900)
[2021-08-29 17:31] LABS: Calcium, Random Urine 13.1 mg/dL
[2021-09-01 13:32] LABS: Calcium (PTHI) 9.4 mg/dL (8.6-10.4); PTHI 30 pg/mL (14-64)
== END 2021-08-28 09:09 | disposition home or self-care (01) ==
LOC: HO.LAB 09:08
PROVIDERS: Absent Provider Nurse Practitioner Primary Care; PCP Nurse Practitioner Primary Care; Visit Provider Internal Medicine Endocrinology, Diabetes & Metabolism
DX: Z00.00 Encounter for general adult medical examination without abnormal findings (principal); I10 Essential (primary) hypertension; Z86.39 Personal history of other endocrine, nutritional and metabolic disease
CPT/HCPCS: 36415; 80053; 82306; 82310; 82607; 82746; 83970; 85027

== ENCOUNTER 2021-09-10 14:21 | Outpatient (REF) | payer MEDICAID, SELFPAY ==
--- NOTE | ~2021-09-10 | MM_ITS ---
EXAMINATION: MM SCREENING DIGITAL BREAST TOMOSYNTHESIS, BILATERAL CLINICAL INFORMATION: Screening. Asymptomatic. Left axilla stereotactic biopsy (benign lymph node with tattoo ink). The lifetime risk of breast cancer based on the Tyrer-Cuzick Model is 15%. COMPARISON: Mammography: 10/29/2020, 09/18/2020, 08/20/2020, 11/08/2018 TECHNIQUE: Digital breast tomosynthesis is performed in both the craniocaudal and mediolateral oblique views along with computer-aided detection (CAD). Synthesized 2D images are generated from the tomosynthesis. Additional left MLO view is provided. FINDINGS: There are scattered areas of fibroglandular density (ACR BI-RADS breast composition Category b). There are no significant masses, abnormal calcifications, or other abnormalities. There is biopsy clip marker overlying left axilla. The skin contours are smooth. There are no significant changes. MM/MM tomosynthesis screening BI IMPRESSION: No mammographic evidence of malignancy. ASSESSMENT: BI-RADS 1: Negative RECOMMENDATION: Routine annual mammography screening. This patient's information was entered into a reminder system with a target due date for their next mammogram.
== END 2021-09-10 14:22 | disposition home or self-care (01) ==
LOC: HO.MAMMO 14:21
PROVIDERS: Visit Provider Obstetrics & Gynecology
DX: Z12.31 Encounter for screening mammogram for malignant neoplasm of breast (principal)
CPT/HCPCS: 77063; 77067

== ENCOUNTER 2021-11-04 07:05 | Emergency (ER) | payer MEDICAID, SELFPAY ==
--- NOTE | ~2021-11-04 | XR_ITS ---
EXAMINATION: XR KNEE, RIGHT CLINICAL INFORMATION: Fall COMPARISON: Previous x-ray January 2013 TECHNIQUE: Four views of the right knee. FINDINGS: There is a transverse nondisplaced fracture through the patella. No other fracture is seen. The joint spaces are normal. There is a joint effusion. There is soft tissue swelling over the patella. XR/XR knee RT 4V IMPRESSION: Transverse nondisplaced fracture of the patella.
[2021-11-04 08:55] VITALS: BP 135/88; PULSE 94; RESP 17; TEMP 36.6; O2SAT 97; BMI 23.3
--- NOTE | 2021-11-04 09:17 | ED_ITS ---
HPI - Extremity Injury (Lower) General Chief Complaint: Extremity Injury, Lower Stated Complaint: Fall/knee pain Time Seen by Provider: 11/04/21 09:02 Source: patient Mode of arrival: ambulatory Limitations: no limitations History of Present Illness HPI Narrative: 56-year-old female presents to the emergency department she states several hours after tripping over a BB. She states she tried to step over with tripped and fell landed on her right knee. She states she was ambulatory afterwards but has been complaining of back pain. States she might have bumped her chin as well but has no complaints about the chin and jaw this time. She is not on any blood thinners she denies fevers chills cough nausea vomiting or diarrhea. MD complaint: knee injury Onset (ago): hour(s) Related Data Home Medications Medication Instructions Recorded Confirmed cyanocobalamin (vitamin B-12) 1,000 mcg PO DAILY 07/05/20 11/20/20 1,000 mcg capsule Previous Rx's Medication Instructions Recorded levothyroxine 25 mcg capsule 25 mcg PO DAILY #30 cap 08/27/20 imipramine HCl 10 mg tablet 10 mg PO BID 90 Days #180 tab 02/14/21 pediatric multivitamin no.17 1 tab PO DAILY #30 tab 02/19/21 calcium citrate 250 mg PO TID #90 tab 03/27/21 cholecalciferol (vitamin D3) 50 50 mcg PO DAILY #30 cap 03/27/21 mcg (2,000 unit) capsule gabapentin 100 mg capsule 100 mg PO TID #270 cap 04/15/21 tramadol 50 mg tablet 50 mg PO TID PRN #90 tab 04/15/21 naproxen 500 mg tablet 500 mg PO BID PRN #20 tab 06/05/21 morphine 15 mg immediate release 7.5 mg PO Q8H PRN #10 tab 11/04/21 tablet Allergies Allergy/AdvReac Type Severity Reaction Status Date / Time ondansetron [From ZOFRAN] Allergy Unknown per H&P Verified 08/06/21 11:59 sumatriptan [From IMITREX] Allergy Unknown RASH FROM Verified 08/06/21 11:59 TABLET NOT INJECTION promethazine [From PHENERGAN] AdvReac Severe DYSTONIA Verified 08/06/21 11:59 Review of Systems Review of Systems: Review of systems: General: Patient denies any fever chills recent illness or falls Musculoskeletal: Lower back pain denies any or body aches or other injuries HEENT: denies headache, runny nose, ear pain Respiratory: denies shortness of breath, cough Cardiovascular: no chest pain or palpitations : denies dysuria, frequency Abdomen: no nausea vomiting denies abdominal pain Extremities: Right knee pain and swelling Skin: no diaphoresis Yes all other systems are reviewed and are negative PMFSH Past Medical History Medical History History of secondary hyperparathyroidism Hyperparathyroidism Surgical History H/O bilateral salpingo-oophorectomy H/O left breast biopsy H/O: hysterectomy History of appendectomy History of bilateral tubal ligation S/P gastric bypass Family History Family History Mother Uterine cancer Social History Social History Alcohol intake: never Patient Tobacco Use Status: Never used Tobacco Second Hand Smoke Exposure: No Advance Directives: No Advance Directives Information Provided: No Patient : No Sexual orientation: Straight/Heterosexual Gender identity: Female Physical Exam Vital Signs: Vital Signs: Last Vital Signs Temp 97.8 F 11/04/21 08:55 Pulse 94 11/04/21 08:55 Resp 17 11/04/21 08:55 BP 135/88 11/04/21 08:55 Pulse Ox 97 11/04/21 08:55 BMI result Body Mass Index 23.3 General: Well-appearing well-nourished in no signs of distress HEENT: Normocephalic atraumatic Neck: No signs of JVD, no masses no tenderness or lymphadenopathy Cardiovascular: Regular rate and rhythm Respiratory: Clear to auscultation bilaterally Abdomen: Soft nontender no masses Extremities: Patient is able to bend flex at the ankle knee and hip bilaterally the right knee is swollen compared to the left and is tender to palpation there is no signs of redness or infection Normal pedal pulses no signs of edema Skin: Dry warm no rashes Back: No tenderness full ROM she points to her lower back L4-L5 as being the most tender in its bilateral pain. No signs of infection MDM - Extremity Injury (Lower) MDM Narrative Medical decision making narrative: Acute on chronic back pain with right knee injury I will put the patient lidocaine prednisone Toradol again patient Tylenol as well. We will get an x- ray of the knee do not think there is any imaging of lumbar spine. 1011 x-ray confirms a nondisplaced patellar fracture. Place patient in immobilizer ice also patient home with short course of morphine. Medical Records Attestation: I reviewed the patient's medical records. Imaging Data xr knee: My impression: nondisplaced patella fracture Discharge Plan Discharge Clinical Impression: Closed fracture of patella Patient Disposition: Home, Self-Care Instructions: Crutch Instructions (ED), Patellar Fracture (ED) Additional Instructions: Please call to follow up. Prescriptions: New morphine 15 mg tablet 7.5 mg PO Q8H PRN (Reason: pain) Qty: 10 0RF No Action cyanocobalamin (vitamin B-12) 1,000 mcg capsule 1,000 mcg PO DAILY 0RF levothyroxine 25 mcg capsule 25 mcg PO DAILY Qty: 30 3RF imipramine HCl 10 mg tablet 10 mg PO BID 90 Days Qty: 180 0RF pediatric multivitamin no.17 Tablet,Chewable 1 tab PO DAILY Qty: 30 8RF calcium citrate 250 mg calcium tablet 250 mg PO TID Qty: 90 0RF cholecalciferol (vitamin D3) 50 mcg (2,000 unit) capsule 50 mcg PO DAILY Qty: 30 11RF gabapentin 100 mg capsule 100 mg PO TID Qty: 270 0RF tramadol 50 mg tablet 50 mg PO TID PRN (Reason: pain) Qty: 90 2RF naproxen 500 mg tablet 500 mg PO BID PRN (Reason: pain) Qty: 20 0RF Referrals: Kaveh Evans MD [Physician] - 2 days (Patella fracture follow up.)
[2021-11-04] MEDS: predniSONE 20 MG TABLET 60 MG PO (10:16)
[2021-11-04] MEDS: Acetaminophen 325 MG TABLET 650 MG PO (10:16)
[2021-11-04] MEDS: Ketorolac Tromethamine 30 MG/ML VIAL 15 MG IM (10:18)
[2021-11-04] MEDS: Lidocaine 4 % Patch ADH..PATCH 2 PATCH TRANSDERMA (10:23)
== END 2021-11-04 11:16 | disposition home or self-care (01) ==
PROVIDERS: Emergency Provider Student in an Organized Health Care Education/Training Program; PCP Nurse Practitioner Primary Care
DX: S82.034A Nondisplaced transverse fracture of right patella, initial encounter for closed fracture (principal); W01.198A Fall on same level from slipping, tripping and stumbling with subsequent striking against other object, initial encounter; M54.50 Low back pain, unspecified; Y93.89 Activity, other specified; Y92.018 Other place in single-family (private) house as the place of occurrence of the external cause; Y99.9 Unspecified external cause status
CPT/HCPCS: 73564; 96372; 99284; J1885

== ENCOUNTER 2021-11-10 13:34 | Outpatient (REF) | payer MEDICAID, SELFPAY ==
--- NOTE | ~2021-11-10 | US_ITS ---
EXAMINATION: US THYROID CLINICAL INFORMATION: Dysphagia. COMPARISON: Ultrasound-thyroid soft tissues neck, most recent 10/24/2018. TECHNIQUE: Linear transducer grayscale and color Doppler examination with attention to the region of the thyroid. FINDINGS: SIZE: Measurements of the thyroid lobes and nodules are given in sagittal, anteroposterior and transverse dimensions respectively. Right Thyroid Lobe: 4.3 x 1.1 x 1.2 cm, volume 3.2 mL. Previously 5.2 x 1.4 x 1.3 cm, volume 4.9 mL. Parenchyma: The gland echotexture is homogeneous. Thyroid vascularity is normal. Left Thyroid Lobe: 4.2 x 0.8 x 1.4 cm, volume 2.4 mL. Previously 5.1 x 0.9 x 1.5 cm, volume 3.6 mL. Parenchyma: The gland echotexture is homogeneous. Thyroid vascularity is normal. Isthmus: 0.1 cm in maximum AP dimension. Previously 0.1 cm. Estimated total number of nodules greater than or equal to 1 cm: 0. There is question of a nodule versus pseudo nodule as follows: 1. Location: Right mid pole. Size: 0.7 x 0.6 x 0.5 cm, volume 0.10 mL. Previously: 1.2 x 0.6 x 0.8 cm, volume 0.48 mL. Nodule characteristics: Composition: Solid (2). Echogenicity: Isoechoic (1). Shape: Not taller than wide (0). Margins: Smooth (0). Echogenic Foci: None (0). ACR TI-RADS total points: 3 ACR TI-RADS category: 3 Significant change in size (>/= 20% in 2 dimensions and minimal increase of 2 mm or 50% or greater increase in volume): Change in features: Change in ACR TI-RADS risk category: NODES: No lymphadenopathy is seen in the tissue surrounding the thyroid gland. US/US thyroid IMPRESSION: Small thyroid gland. Question solitary right thyroid nodule versus area of gland heterogeneity or pseudo nodule. This is decreased in size from previous exam. This does not meet TI RADS criteria for fine-needle aspiration or follow-up. ACR TI-RADS RECOMMENDATION REFERENCE: Ultrasound-guided fine-needle aspiration, followup ultrasound, no further follow up. * TR1 (0 point) and TR 2 (2 points): No FNA or follow up * TR3 (3 points): FNA if more than or equal to 2.5 cm in maximum dimension, followup ultrasound in 1, 3 and 5 years if 1.5 to 2.4 cm in maximum dimension. * TR4 (4-6 points): FNA if more than or equal to 1.5 cm in maximum dimension, followup ultrasound in 1, 2, 3 and 5 years if 1 to 1.4 cm in maximum dimension. * TR5 (more than or equal to 7 points): FNA if more than or equal to 1 cm in maximum dimension, followup ultrasound every year for 5 years if 0.5 to 0.9 cm in maximum dimension. * TR3, TR4 or TR5 nodules that are below the size threshold for follow up receive no follow up.
== END 2021-11-10 13:35 | disposition home or self-care (01) ==
LOC: HO.US 13:34
PROVIDERS: PCP Nurse Practitioner Primary Care; Visit Provider Nurse Practitioner Primary Care
DX: R13.10 Dysphagia, unspecified (principal)
CPT/HCPCS: 76536

== ENCOUNTER 2021-11-12 12:57 | Outpatient (REF) | payer MEDICAID, SELFPAY ==
--- NOTE | ~2021-11-12 | XR_ITS ---
EXAMINATION: XR knee RT 2V CLINICAL INFORMATION: Knee pain COMPARISON: Knee radiographs 11/04/2021 TECHNIQUE: 2 views of the knee XR/XR knee RT 2V FINDINGS/IMPRESSION: Redemonstration of the transversely oriented nondisplaced intra-articular fracture of the patella in unchanged alignment. Fracture margins remain visible. No jamel bony callus formation. Joint spaces are maintained. Decrease trace suprapatellar joint effusion. Soft tissues are unremarkable.
== END 2021-11-12 12:58 | disposition home or self-care (01) ==
LOC: HO.HOSX 12:57
PROVIDERS: Visit Provider Physician Assistant
DX: S82.001A Unspecified fracture of right patella, initial encounter for closed fracture (principal); X58.XXXA Exposure to other specified factors, initial encounter; Y93.9 Activity, unspecified; Y92.9 Unspecified place or not applicable; Y99.9 Unspecified external cause status
CPT/HCPCS: 73560; 99202

== ENCOUNTER → 2021-11-24 10:39 | Outpatient (BNVA) | payer MEDICAID, SELFPAY | PROVIDERS: PCP Internal Medicine; Visit Provider Internal Medicine | DX: E21.3 Hyperparathyroidism, unspecified (principal); E03.9 Hypothyroidism, unspecified; E55.9 Vitamin D deficiency, unspecified | CPT/HCPCS: 99212 ==

== ENCOUNTER 2021-12-05 08:38 | Outpatient (REF) | payer MEDICAID, SELFPAY ==
--- NOTE | ~2021-12-05 | MM_ITS ---
EXAMINATION: BONE DENSITOMETRY CLINICAL INDICATION: Hyperparathyroidism. COMPARISON: Baseline BD dated 08/19/2017. TECHNIQUE: Using a [employer] DXA System (software version: 13.1) manufactured by [employer], dual-energy x-ray absorptiometry was performed of the lumbar spine, left hip, and left forearm radius 33%. The images are of good technical quality. Summary results are attached. FINDINGS: AP SPINE L1-L4: Current: BMD 0.937 g/cm2, Z-score -1.5, T-score -2.0, osteopenia, 15.8% decrease from baseline (<5% change is not significant). Baseline: BMD 1.113 g/cm2. LEFT FEMUR, NECK: Current: BMD 0.683 g/cm2, Z-score -1.7, T-score -2.6, osteoporosis. Baseline: BMD 0.919 g/cm2. LEFT FEMUR, TOTAL: Current: BMD 0.697 g/cm2, Z-score -2.0, T-score -2.5, osteoporosis, 33.0% decrease from baseline (<5% change is not significant). Baseline: BMD 1.041 g/cm2. LEFT FOREARM RADIUS 33%: BMD 0.901 g/cm2, Z-score 0.8, T-score 0.3, normal, 9.9% decrease from baseline (<5% change is not significant). Baseline: BMD 1.000 g/cm2. IDENTIFIED RISK FACTORS: Menopause, anticonvulsant, bilateral oophorectomy, height loss, history of fracture (adult), hyperparathyroid, hysterectomy, recurrent falls, secondary osteoporosis. HISTORY OF FRACTURE: Other fracture. MEDICATIONS: Calcium, vitamin D. MM/XR DEXA appendicular skeleton IMPRESSION: 1. DIAGNOSIS: Osteoporosis based on the lowest T-score value of -2.6 in the femoral neck applying World Health Organization criteria. 2. 10-YEAR FRACTURE RISK PREDICTION, FRAX: Major osteoporotic fracture (clinical spine, forearm, hip or shoulder) 9.8%. Hip fracture 2.0%. 3. Treatment Recommendations: NOF guidelines recommend consideration for treatment in postmenopausal women and men age 50 and older presenting with the following: -A hip or vertebral (clinical or morphometric) fracture. -T-score less than or equal to -2.5 at the femoral neck or spine after appropriate evaluation to exclude secondary causes. -Low bone mass at the hip or spine and a 10-year fracture probability by FRAX of greater than or equal to 3% for hip fracture or greater than or equal to 20% for major osteoporotic fracture based on the [place] adapted WHO algorithm. 4. Other Recommendations: All treatment decisions require clinical judgment and consideration of individual patient factors, including patient preferences, comorbidities, previous drug use, risk factors not captured in the FRAX model (e.g. frailty, falls, vitamin D deficiency, increased bone turnover, interval significant decline in bone density) and possible under or overestimation of fracture risk by FRAX. Additional medical evaluation for secondary cause of low bone mineral density may be appropriate. FUTURE SCAN RECOMMENDATION: People with diagnosed cases of osteoporosis or at high risk for fracture should have regular bone mineral density tests. For patients eligible for Medicare, routine testing is allowed once every 2 years. The testing frequency can be increased to one year for patients who have rapidly progressing disease, those who are receiving or discontinuing medical therapy to restore bone mass, or have additional risk factors.
== END 2021-12-05 08:39 | disposition home or self-care (01) ==
LOC: HO.MAMMO 08:38
PROVIDERS: PCP Nurse Practitioner Primary Care; Visit Provider Internal Medicine
DX: Z13.820 Encounter for screening for osteoporosis (principal); E21.3 Hyperparathyroidism, unspecified; Z78.0 Asymptomatic menopausal state; M81.0 Age-related osteoporosis without current pathological fracture
CPT/HCPCS: 77081

== ENCOUNTER 2021-12-08 09:02 | Outpatient (REF) | payer MEDICAID, SELFPAY ==
[2021-12-08 10:01] LABS: Hematocrit 42.7 % (37.0-47.0); Hemoglobin 13.8 g/dl (12.0-16.0); Mean Corpuscular HGB Conc 32.3 g/dl (31.0-35.0); Mean Corpuscular Hemoglobin 26.7 pg (27.0-33.0); Mean Corpuscular Volume 82.8 fL (80.0-98.0); Mean Platelet Volume 8.6 fL (9.4-12.3); Platelet Count 359 X10*3/uL (160-400); Red Blood Count 5.16 X10*6/uL (4.20-5.50); Red Cell Distribution Width 14.5 % (11.0-16.0); White Blood Count 5.7 X10*3/uL (4.8-10.8)
[2021-12-08 10:20] LABS: Cholesterol 243 mg/dL; Estimated Average Glucose 114 mg/dL; HDL Cholesterol 76 mg/dL; Hemoglobin A1c % 5.6 %; LDL Cholesterol Calculated 157 mg/dl; Triglycerides 51 mg/dL
[2021-12-08 10:24] LABS: Alanine Aminotransferase 24 U/L (0-31); Albumin Level 4.1 g/dL (3.5-5.0); Alkaline Phosphatase 173 U/L (39-117); Anion Gap 11 (12-20); Aspartate Amino Transferase 22 U/L (5-31); Bilirubin Total 0.6 mg/dL (0.0-1.0); Blood Urea Nitrogen 15 mg/dL (9-16); Calcium 9.5 mg/dL (8.4-10.2); Carbon Dioxide 26 mmol/L (22-29); Chloride 106 mmol/L (96-108); Estimated Glomerular Filt Rate > 60; Glucose Random 101 mg/dL (60-115); Potassium 4.3 mmol/L (3.3-5.1); Sodium 139 mmol/L (135-145); Total Protein 7.5 g/dL (6.5-8.0)
[2021-12-08 10:38] LABS: HIV AB/AG Nonreactive (Nonreactive); HIV Num 1 0.06 S/CO (0.00-0.99)
[2021-12-08 10:39] LABS: ~Hepatitis C Antibody Nonreactive (Nonreactive)
[2021-12-08 10:46] LABS: Free T4 (Free Thyroxine) 0.99 ng/dL (0.71-1.85); Thyroid Stimulating Hormone 1.13 uIU/mL (0.32-4.0)
[2021-12-08 10:54] LABS: Syphilis Screen Nonreactive (Nonreactive)
[2021-12-08 11:09] LABS: Folate 16.2 ng/mL (> or = 4.0); Vitamin B12 406 pg/mL (200-900)
[2021-12-08 12:49] LABS: Creatinine Urine 118.23 mg/dL
[2021-12-08 13:08] LABS: CT PCR NOT DETECTED (Not Detect.); NG PCR NOT DETECTED (Not Detect.)
[2021-12-09 13:47] LABS: Calcium (PTHI) 9.4 mg/dL (8.6-10.4); PTHI 60 pg/mL (16-77)
== END 2021-12-08 09:03 | disposition home or self-care (01) ==
LOC: HO.LAB 09:02
PROVIDERS: Absent Provider Internal Medicine; PCP Nurse Practitioner Primary Care; Visit Provider Nurse Practitioner Primary Care
DX: Z00.00 Encounter for general adult medical examination without abnormal findings (principal); E21.3 Hyperparathyroidism, unspecified; I10 Essential (primary) hypertension; E03.9 Hypothyroidism, unspecified
CPT/HCPCS: 36415; 80053; 80061; 82043; 82306; 82607; 82746; 83036; 83970; 84100; 84439; 84443; 85027; 86780; 86803; 87389; 87491; 87591

== ENCOUNTER 2021-12-12 07:40 | Outpatient (REF) | payer MEDICAID, SELFPAY ==
--- NOTE | ~2021-12-12 | XR_ITS ---
EXAMINATION: XR KNEE, RIGHT CLINICAL INFORMATION: Pain in right knee. COMPARISON: 11/12/2021 TECHNIQUE: AP and lateral views of the right knee. FINDINGS: Previously noted patellar fracture is not as well seen, and there appears to be some degree of bony union. No dislocation or effusion is appreciated. There is minimal spurring superior undersurface of the patella. Joint spaces are maintained. XR/XR knee RT 2V IMPRESSION: Continued interval healing of patellar fracture with what appears to be some degree of bony union with fracture lines not well seen.
== END 2021-12-12 07:41 | disposition home or self-care (01) ==
LOC: HO.HOSX 07:40
PROVIDERS: Visit Provider Physician Assistant
DX: S82.001D Unspecified fracture of right patella, subsequent encounter for closed fracture with routine healing (principal)
CPT/HCPCS: 73560; 99212

== ENCOUNTER 2022-01-17 07:32 | Emergency (ER) | payer MEDICAID, SELFPAY ==
--- NOTE | ~2022-01-17 | US_ITS ---
EXAMINATION: US VENOUS ULTRASOUND WITH DOPPLER LOWER EXTREMITY, RIGHT CLINICAL INFORMATION: Right lower extremity swelling. COMPARISON: None TECHNIQUE: Ultrasound of the deep veins is performed from the hip to the calf with compression sonography and color and pulse Doppler assessment. Spectral analysis with color-flow imaging is performed. FINDINGS: There is normal venous compression and respiratory variation and augmented flow. The visualized common femoral vein, superficial femoral vein, profunda femoral vein, popliteal vein, and the trifurcation region shows no evidence of deep venous thrombosis. There is no significant popliteal fossa cyst. If the patient's symptoms persist, followup ultrasound in 5 days 7 days might be of value to exclude proximal propagation from a non-visualized calf vein. US/US venous duplex LE RT IMPRESSION: No DVT demonstrated in the right lower extremity.
[2022-01-17 08:21] VITALS: BP 114/81; PULSE 94; RESP 17; TEMP 36.6; O2SAT 99; BMI 25.7
--- NOTE | 2022-01-17 08:51 | ED_ITS ---
HPI - Extremity Problem General Chief complaint: Extremity Problem Stated complaint: R foot swollen/UTI Time Seen by Provider: 01/17/22 08:30 Source: patient Mode of arrival: ambulatory Limitations: no limitations History of Present Illness HPI Narrative: 56-year-old female who presents emergency department for evaluation of right lower extremity swelling. Patient states that over the past week she has noticed swelling of the right foot that extends to the right ankle. She states that the swelling comes and goes but is gotten worse over the past 3 days. She states she does have pain in the area which she describes as a mild, pressure- like pain which is intermittent as well. She also states that she has had a strong odor to her urine which is unusual for her. She states that she has had no urinary frequency, dysuria or vaginal discharge. The patient fractured her right patella on 11/04/2021 (2 months prior) which is treated with immobilization only and she currently wearing a brace to her right knee. She states she has a brace on and a brace off to shower only. The patient travel to [place] by bus 2 weeks prior, this trip was 7 [address] in each direction She denied fever, chills, rhinorrhea, sore throat, chest pain, cough, shortness of breath, dyspnea on exertion, nausea, vomiting or diarrhea. The patient does have a history of uterine cancer and has had hysterectomy with bilateral s alpingo-oophorectomy in 2012. Related Data Home Medications Medication Instructions Recorded Confirmed cyanocobalamin (vitamin B-12) 1,000 mcg PO DAILY 07/05/20 11/24/21 1,000 mcg capsule bupropion HCl 150 mg 24 hr tablet, 150 mg PO QAM 11/24/21 11/24/21 extended release clonazepam 1 mg tablet 1 mg PO BEDTIME 11/24/21 11/24/21 diltiazem HCl 180 mg 180 mg PO DAILY 11/24/21 11/24/21 capsule,extended release 24 hr fluticasone propionate 110 1 puff PO BID 11/24/21 11/24/21 mcg/actuation HFA aerosol inhaler (Flovent HFA) hydroxyzine pamoate 50 mg capsule 50 mg PO TID PRN 11/24/21 11/24/21 levothyroxine 25 mcg capsule 50 mcg PO DAILY cap 11/24/21 11/24/21 pantoprazole 40 mg tablet,delayed 40 mg PO DAILY 11/24/21 11/24/21 release zolpidem 10 mg tablet 10 mg PO BEDTIME 11/24/21 11/24/21 calcium citrate 250 mg PO DAILY 11/26/21 cholecalciferol (vitamin D3) 50 2,000 unit PO DAILY cap 11/26/21 mcg (2,000 unit) capsule Previous Rx's Medication Instructions Recorded imipramine HCl 10 mg tablet 10 mg PO BID 90 Days #180 tab 02/14/21 pediatric multivitamin no.17 1 tab PO DAILY #30 tab 02/19/21 calcium citrate 250 mg PO TID #90 tab 03/27/21 cholecalciferol (vitamin D3) 50 50 mcg PO DAILY #30 cap 03/27/21 mcg (2,000 unit) capsule gabapentin 100 mg capsule 100 mg PO TID #270 cap 04/15/21 tramadol 50 mg tablet 50 mg PO TID PRN #90 tab 04/15/21 Allergies Allergy/AdvReac Type Severity Reaction Status Date / Time ondansetron [From ZOFRAN] Allergy Unknown per H&P Verified 12/12/21 10:51 sumatriptan [From IMITREX] Allergy Unknown RASH FROM Verified 12/12/21 10:51 TABLET NOT INJECTION promethazine [From PHENERGAN] AdvReac Severe DYSTONIA Verified 12/12/21 10:51 Review of Systems Review of Systems: Yes all other systems are reviewed and are negative [facility] Past Medical History [facility] Narrative: Past medical history: Right patella fracture 11/04/2021. Social history: She denies tobacco, alcohol and drug use. Medical History History of secondary hyperparathyroidism Hyperparathyroidism Hypothyroidism Vitamin D deficiency Surgical History H/O bilateral salpingo-oophorectomy H/O left breast biopsy H/O: hysterectomy History of appendectomy History of bilateral tubal ligation S/P gastric bypass Family History Family History Mother Uterine cancer Father No problems noted. 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 Sexual orientation: Straight/Heterosexual Gender identity: Female Physical Exam Vital Signs: Vital Signs: Last Vital Signs Temp 98 F 01/17/22 08:21 Pulse 94 01/17/22 08:21 Resp 17 01/17/22 08:21 BP 114/81 01/17/22 08:21 Pulse Ox 99 01/17/22 08:21 BMI result Body Mass Index 25.7 Const: General: cooperative and no acute distress Orientation/consciousness: oriented to person and oriented to place Limitations: no limitations HEENT: Head: Yes normal to inspection, Yes normocephalic and Yes atraumatic Ears: external ears normal General nose exam: Normal external nose present Face and sinus: Yes normal facial exam Mouth: Normal oral and palatal mucosa present Throat: Yes posterior oropharynx normal Eyes: General: appearance normal, both eyes and all related structures Pupils: Equal, round and reactive pupils present Neck: Neck: Yes normal visual inspection, Yes no lymphadenopathy, Yes trachea midline and Yes supple Chest: Chest palpation & inspection: normal inspection of the chest and normal palpation of entire chest wall Resp: Effort & Inspection: normal respiratory effort and able to speak in complete sentences Auscultation: clear to auscultation bilaterally Cardio: Rate: regular rate Rhythm: regular rhythm Heart sounds: S1 normal heart sound present, S2 normal heart sound present and no murmurs GI: Inspection: Yes normal to inspection Palpation (GI): Soft to palpation, nontender and no guarding Auscultation: normal bowel sounds : General: Yes no CVA tenderness Back/Spine/Pelvis: Back: no CVA tenderness Skin: General skin exam: no rashes or lesions noted Neuro: General: oriented to person and oriented to place Cranial nerves: Yes CN's II-XII intact bilaterally and Yes Equal, round and reactive pupils present Cognition (Neuro): normal cognition Extrem: Other: Patient does have swelling of her right foot and ankle with no tenderness palpation, there is no increased warmth, there is no erythema, extremities neurovascular intact. She is wearing a right knee brace. Her extremities n eurovascular intact Psych: Appearance: grossly normal Speech and movement: Normal speech and movement present Affect: normal affect Attitude: cooperative Thought process: Normal thought process present Course Course Course Narrative: 56-year-old female who presents emergency department for evaluation swelling of her right foot and ankle x1 week worse x3 days. She also complains of a strong odor to her urine with no urinary frequency or dysuria. patient did fracture her patella 2 months prior and has been wearing a knee immobilizer. Also, 2 weeks prior she went on a long bus trip. She has not had any other symptoms such as chest pain, shortness of breath, dyspnea on exertion, fever, chills or cough. Her vital signs were normal with a heart rate of 94, respiratory rate of 17 and a normal O2 saturation of 99% on room air. Her exam did reveal swelling of the right foot and ankle otherwise was unremarkable. 1024: Patient's laboratory evaluation was unremarkable. Urinalysis revealed 1+ leukocyte esterase. Microscopic revealed 9 WBCs, 1+ bacteria, 3+ squamous cells, I do not think that this represents a urinary tract infection. The patient's right lower extremity duplex ultrasound did not reveal a DVT at this time. I did discuss these findings with the patient. I did tell the patient that a blood clot from the knee to the calf can sometimes be missed on the initial ultrasound and that if she continues to have swelling of her right lower extremity or if the swelling is getting worse and she needs a repeat ultrasound in 4-5 days. Patient was advised to keep her right leg elevated to see if this improves the swelling. Patient was given printed and verbal instructions and discharged home. MDM - Extremity (Nontraumatic) Lab Data Result diagrams: 01/17/22 09:00 01/17/22 09:00 Labs: Lab Results 01/17/22 01/17/22 01/17/22 Range/Units 09:00 09:00 09:00 WBC 5.6 (4.8-10.8) X10*3/uL RBC 5.19 (4.20-5.50) X10*6/uL Hgb 13.5 (12.0-16.0) g/dl Hct 43.0 (37.0-47.0) % MCV 82.9 (80.0-98.0) fL MCH 26.0 L (27.0-33.0) pg MCHC 31.4 (31.0-35.0) g/dl RDW 14.7 (11.0-16.0) % Plt Count 346 (160-400) X10*3/uL MPV 8.1 L (9.4-12.3) fL Immature Gran % (Auto) 0.2 (0.0-0.4) % Neut % (Auto) 40.4 L (45-73) % Lymph % (Auto) 44.2 H (20-40) % [place] % (Auto) 10.3 (2-11) % Eos % (Auto) 4.0 (0-4) % Baso % (Auto) 0.9 (0-2) % Lymph # (Auto) 2.5 (1.2-4.9) X10*3/uL [place] # (Auto) 0.6 (0.1-1.2) X10*3/uL Eos # (Auto) 0.2 (0.0-0.4) X10*3/uL Baso # (Auto) 0.1 (0.0-0.2) X10*3/uL Abs Immat Gran (auto) 0.01 (0.00-0.03) X10*3/uL Absolute Neuts (auto) 2.3 (2.0-8.3) x10*3/uL Absolute Nucleated RBC 0.000 (0.0-0.012) X10*3/uL Nucleated RBC % (auto) 0.0 (0.0-0.2) /100WBC PT 11.8 (9.9-13.0) SEC INR 1.0 (0.9-1.1) APTT 36.0 (24.1-38.0) SEC Sodium 138 (135-145) mmol/L Potassium 4.6 (3.3-5.1) mmol/L Chloride 107 (96-108) mmol/L Carbon Dioxide 26 (22-29) mmol/L Anion Gap 10 L (12-20) BUN 14 (9-16) mg/dL Creatinine 0.92 (0.5-1.4) mg/dL Estim Creat Clear Calc 67.9 Estimated GFR > 60 Random Glucose 109 (60-115) mg/dL Calcium 9.5 (8.4-10.2) mg/dL Total Bilirubin 0.6 (0.0-1.0) mg/dL AST 23 (5-31) U/L ALT 27 (0-31) U/L Alkaline Phosphatase 156 H (39-117) U/L Total Protein 7.0 (6.5-8.0) g/dL Albumin 3.7 (3.5-5.0) g/dL Urine Color Urine Appearance Urine pH (5.0-8.0) Ur Specific [place] (1.005-1.025) Urine Protein (NEG-TRACE) MG/DL Urine Glucose (UA) (NEG) MG/DL Urine Ketones (NEG) MG/DL Urine Blood (NEG) Urine Nitrite (NEG) Ur Leukocyte Esterase (NEG) Urine RBC (0) /HPF Urine WBC (0-4) /HPF Ur Squamous Epith Cells /LPF Calcium Oxalate Crystal /LPF Amorphous Sediment /LPF Urine Bacteria /LPF 01/17/22 Range/Units 09:34 WBC (4.8-10.8) X10*3/uL RBC (4.20-5.50) X10*6/uL Hgb (12.0-16.0) g/dl Hct (37.0-47.0) % MCV (80.0-98.0) fL MCH (27.0-33.0) pg MCHC (31.0-35.0) g/dl RDW (11.0-16.0) % Plt Count (160-400) X10*3/uL MPV (9.4-12.3) fL Immature Gran % (Auto) (0.0-0.4) % Neut % (Auto) (45-73) % Lymph % (Auto) (20-40) % [place] % (Auto) (2-11) % Eos % (Auto) (0-4) % Baso % (Auto) (0-2) % Lymph # (Auto) (1.2-4.9) X10*3/uL [place] # (Auto) (0.1-1.2) X10*3/uL Eos # (Auto) (0.0-0.4) X10*3/uL Baso # (Auto) (0.0-0.2) X10*3/uL Abs Immat Gran (auto) (0.00-0.03) X10*3/uL Absolute Neuts (auto) (2.0-8.3) x10*3/uL Absolute Nucleated RBC (0.0-0.012) X10*3/uL Nucleated RBC % (auto) (0.0-0.2) /100WBC PT (9.9-13.0) SEC INR (0.9-1.1) APTT (24.1-38.0) SEC Sodium (135-145) mmol/L Potassium (3.3-5.1) mmol/L Chloride (96-108) mmol/L Carbon Dioxide (22-29) mmol/L Anion Gap (12-20) BUN (9-16) mg/dL Creatinine (0.5-1.4) mg/dL Estim Creat Clear Calc Estimated GFR Random Glucose (60-115) mg/dL Calcium (8.4-10.2) mg/dL Total Bilirubin (0.0-1.0) mg/dL AST (5-31) U/L ALT (0-31) U/L Alkaline Phosphatase (39-117) U/L Total Protein (6.5-8.0) g/dL Albumin (3.5-5.0) g/dL Urine Color YELLOW Urine Appearance CLOUDY Urine pH 7.0 (5.0-8.0) Ur Specific [place] 1.015 (1.005-1.025) Urine Protein NEG (NEG-TRACE) MG/DL Urine Glucose (UA) NEG (NEG) MG/DL Urine Ketones NEG (NEG) MG/DL Urine Blood NEG (NEG) Urine Nitrite NEG (NEG) Ur Leukocyte Esterase 1+ H (NEG) Urine RBC 0 (0) /HPF Urine WBC 5-9 H (0-4) /HPF Ur Squamous Epith Cells 3+ /LPF Calcium Oxalate Crystal TRACE /LPF Amorphous Sediment 4+ /LPF Urine Bacteria 1+ /LPF Discharge Plan Discharge Clinical Impression: Swelling of right foot, Swelling of joint, ankle, right Patient Disposition: Home, Self-Care Additional Instructions: Your blood work was normal Your urinalysis did not reveal any evidence for urine infection at this time. The duplex ultrasound of your right lower extremity did not reveal a blood clot. Sometimes a blood clot from the foot to the knee can be missed on the initial ultrasound. If your swelling gets worse or if it does not improve in 4-5 days then you need a repeat duplex ultrasound to make sure that you do not have a blood clot in the veins of your lower leg. You can call your doctor to see if your doctor can order this duplex ultrasound as an outpatient however if you doctor cannot order this test and you should return to the emergency department for the repeat duplex ultrasound. Keep your right leg elevated to see if this decreases the swelling. Take ibuprofen 200 mg pills, 3 pills every 6 hours as needed for pain. Take Tylenol (acetaminophen) 500 mg pills, 2 pills every 4 to 6 hours as needed for pain. Follow-up with your doctor in 2 days. Please return to the emergency department if your symptoms get worse or if you develop any symptoms that are concerning to you. Prescriptions: No Action cyanocobalamin (vitamin B-12) 1,000 mcg capsule 1,000 mcg PO DAILY 0RF imipramine HCl 10 mg tablet 10 mg PO BID 90 Days Qty: 180 0RF pediatric multivitamin no.17 Tablet,Chewable 1 tab PO DAILY Qty: 30 8RF calcium citrate 250 mg calcium tablet 250 mg PO TID Qty: 90 0RF cholecalciferol (vitamin D3) 50 mcg (2,000 unit) capsule 50 mcg PO DAILY Qty: 30 11RF gabapentin 100 mg capsule 100 mg PO TID Qty: 270 0RF tramadol 50 mg tablet 50 mg PO TID PRN (Reason: pain) Qty: 90 2RF calcium citrate 250 mg calcium tablet 250 mg PO DAILY 0RF cholecalciferol (vitamin D3) 50 mcg (2,000 unit) capsule 2,000 unit PO DAILY 0RF levothyroxine 25 mcg capsule 50 mcg PO DAILY 0RF clonazepam 1 mg tablet 1 mg PO BEDTIME 0RF Rx Instructions: administer 30 minutes before bedtime bupropion HCl 150 mg tablet extended release 24 hr 150 mg PO QAM 0RF pantoprazole 40 mg tablet,delayed release (DR/EC) 40 mg PO DAILY 0RF diltiazem HCl 180 mg capsule,extended release 24hr 180 mg PO DAILY 0RF Flovent HFA 110 mcg/actuation HFA aerosol inhaler 1 puff PO BID 0RF zolpidem 10 mg tablet 10 mg PO BEDTIME 0RF hydroxyzine pamoate 50 mg capsule 50 mg PO TID PRN (Reason: anxiety) 0RF
[2022-01-17 09:06] LABS: Basophils Absolute Auto 0.1 X10*3/uL (0.0-0.2); Basophils Percent Auto 0.9 % (0-2); Eosinophils Absolute Auto 0.2 X10*3/uL (0.0-0.4); Hemoglobin 13.5 g/dl (12.0-16.0); Imm Gran Abs Auto 0.01 X10*3/uL (0.00-0.03); Imm Gran Pct Auto 0.2 % (0.0-0.4); Lymphocytes Absolute Auto 2.5 X10*3/uL (1.2-4.9); Lymphocytes Percent Auto 44.2 % (20-40); MANUAL DIFF FLAG NO; Mean Corpuscular HGB Conc 31.4 g/dl (31.0-35.0); Mean Corpuscular Volume 82.9 fL (80.0-98.0); Mean Platelet Volume 8.1 fL (9.4-12.3); Monocytes Absolute Auto 0.6 X10*3/uL (0.1-1.2); Monocytes Percent Auto 10.3 % (2-11); Neutrophils Absolute Auto 2.3 x10*3/uL (2.0-8.3); Neutrophils Percent Auto 40.4 % (45-73); Platelet Count 346 X10*3/uL (160-400); Red Blood Count 5.19 X10*6/uL (4.20-5.50); Red Cell Distribution Width 14.7 % (11.0-16.0); White Blood Count 5.6 X10*3/uL (4.8-10.8)
[2022-01-17 09:11] LABS: Prothrombin Time 11.8 SEC (9.9-13.0)
[2022-01-17 09:23] LABS: Alanine Aminotransferase 27 U/L (0-31); Albumin Level 3.7 g/dL (3.5-5.0); Alkaline Phosphatase 156 U/L (39-117); Anion Gap 10 (12-20); Aspartate Amino Transferase 23 U/L (5-31); Bilirubin Total 0.6 mg/dL (0.0-1.0); Blood Urea Nitrogen 14 mg/dL (9-16); Calcium 9.5 mg/dL (8.4-10.2); Carbon Dioxide 26 mmol/L (22-29); Chloride 107 mmol/L (96-108); Creatinine Clr Calc Pharmacy 67.9; Estimated Glomerular Filt Rate > 60; Glucose Random 109 mg/dL (60-115); Potassium 4.6 mmol/L (3.3-5.1); Sodium 138 mmol/L (135-145)
[2022-01-17 09:42] LABS: Appearance Urine CLOUDY; Color Urine YELLOW; Glucose Urine UA NEG (NEG); Leukocyte Esterase Urine 1+ (NEG); Nitrite Urine NEG (NEG); Specific Gravity - Urine 1.015 (1.005-1.025); UACC Culture Trigger YES; Urine Blood NEG (NEG); Urine Ketones NEG (NEG); Urine Protein NEG (NEG-TRACE)
[2022-01-17 10:04] LABS: Amorphous Sediment Urine 4+ /LPF; Bacteria Urine 1+ /LPF; Calcium Oxalate Crystals Urine TRACE /LPF; RBC Urine 0 /HPF (0); Squamous Epithelial Cell Urine 3+ /LPF
== END 2022-01-17 10:47 | disposition home or self-care (01) ==
PROVIDERS: Emergency Provider Emergency Medicine Emergency Medical Services; PCP Nurse Practitioner Primary Care
DX: M79.661 Pain in right lower leg (principal); M79.89 Other specified soft tissue disorders; M25.471 Effusion, right ankle
CPT/HCPCS: 36415; 80053; 81001; 85025; 85610; 85730; 87086; 87147; 93971; 99283; 99284

== ENCOUNTER 2022-01-23 07:30 | Outpatient (REF) | payer MEDICAID, SELFPAY ==
--- NOTE | ~2022-01-23 | XR_ITS ---
EXAMINATION: XR KNEE, RIGHT CLINICAL INFORMATION: Right knee pain COMPARISON: 04/13/2022 and studies dating back to 11/04/2021. TECHNIQUE: AP and lateral views of the right knee. FINDINGS: There is osteopenia of the patella. There appears to be bony union of previously noted patellar fracture. No acute fracture or dislocation is evident. No knee effusion is seen. Minor spurring undersurface of the patella is present. XR/XR knee RT 2V IMPRESSION: Evidence of continued healing with bony union of the patella fracture.
== END 2022-01-23 07:31 | disposition home or self-care (01) ==
LOC: HO.HOSX 07:30
PROVIDERS: Visit Provider Physician Assistant
DX: S82.001D Unspecified fracture of right patella, subsequent encounter for closed fracture with routine healing (principal); X58.XXXD Exposure to other specified factors, subsequent encounter
CPT/HCPCS: 73560; 99212

== ENCOUNTER 2022-01-24 06:58 | Emergency (ER) | payer MEDICAID, SELFPAY ==
--- NOTE | ~2022-01-24 | US_ITS ---
EXAMINATION: US VENOUS ULTRASOUND WITH DOPPLER LOWER EXTREMITY, RIGHT CLINICAL INFORMATION: Lower leg swelling/pain. Evaluate for deep vein thrombosis. COMPARISON: Right lower extremity venous ultrasound dated 01/17/2022. TECHNIQUE: Ultrasound of the deep veins is performed from the hip to the calf with compression sonography and color and pulse Doppler assessment. Spectral analysis with color-flow imaging is performed. FINDINGS: There is normal venous compression and respiratory variation and augmented flow. The visualized common femoral vein, superficial femoral vein, profunda femoral vein, popliteal vein, and the trifurcation region shows no evidence of deep venous thrombosis. There is no significant popliteal fossa cyst. If the patient's symptoms persist, followup ultrasound in 5 days 7 days might be of value to exclude proximal propagation from a non-visualized calf vein. US/US venous duplex LE RT IMPRESSION: No DVT demonstrated in the right lower extremity.
--- NOTE | ~2022-01-24 | US_ITS ---
EXAMINATION: Right LOWER EXTREMITY DUPLEX CLINICAL INFORMATION: Unilateral leg swelling and pain. Skin changes. COMPARISON: None TECHNIQUE: Real-time ultrasound and Doppler techniques (integrating B-mode 2-D vascular images, Doppler spectral analysis and color flow Doppler imaging) were utilized to interrogate the right lower extremity. FINDINGS: RIGHT LEG: Common femoral artery: 81.4 cm/s, multiphasic Profunda femoris artery: 83.2 cm/s, multiphasic Superficial femoral artery (proximal): 78.9 cm/s, multiphasic Superficial femoral artery (mid): 75.7 cm/s, multiphasic Superficial femoral artery (distal): 82.9 cm/s, multiphasic Proximal popliteal artery: 55.4 cm/s, multiphasic Distal popliteal artery: 43 cm/s, multiphasic Peroneal artery: 34.9 cm/s, multiphasic Posterior tibial artery: 36.8 cm/s, multiphasic US/US arterial duplex LE RT IMPRESSION: There is no evidence of any hemodynamically significant lower extremity arterial disease by duplex Doppler criteria at rest.
[2022-01-24 07:19] VITALS: BP 127/91; PULSE 84; RESP 16; TEMP 36.9; O2SAT 97; BMI 28.1
[2022-01-24 07:44] LABS: MANUAL DIFF FLAG NO
[2022-01-24 07:45] LABS: Appearance Urine HAZY; Color Urine YELLOW; Glucose Urine UA NEG (NEG); Leukocyte Esterase Urine TRACE (NEG); Nitrite Urine NEG (NEG); PH 6.5 (5.0-8.0); Urine Blood NEG (NEG); Urine Ketones NEG (NEG); Urine Protein NEG (NEG-TRACE)
[2022-01-24 07:48] LABS: Basophils Absolute Auto 0.1 X10*3/uL (0.0-0.2); Basophils Percent Auto 0.7 % (0-2); Eosinophils Absolute Auto 0.2 X10*3/uL (0.0-0.4); Eosinophils Percent Auto 3.4 % (0-4); Hemoglobin 12.3 g/dl (12.0-16.0); Imm Gran Abs Auto 0.02 X10*3/uL (0.00-0.03); Imm Gran Pct Auto 0.3 % (0.0-0.4); Lymphocytes Absolute Auto 2.9 X10*3/uL (1.2-4.9); Lymphocytes Percent Auto 42.7 % (20-40); Mean Corpuscular HGB Conc 31.5 g/dl (31.0-35.0); Mean Corpuscular Hemoglobin 25.9 pg (27.0-33.0); Mean Corpuscular Volume 82.1 fL (80.0-98.0); Mean Platelet Volume 8.3 fL (9.4-12.3); Monocytes Absolute Auto 0.6 X10*3/uL (0.1-1.2); Monocytes Percent Auto 8.2 % (2-11); Neutrophils Absolute Auto 3.1 x10*3/uL (2.0-8.3); Neutrophils Percent Auto 44.7 % (45-73); Platelet Count 321 X10*3/uL (160-400); Red Blood Count 4.75 X10*6/uL (4.20-5.50); Red Cell Distribution Width 14.6 % (11.0-16.0); White Blood Count 6.8 X10*3/uL (4.8-10.8)
[2022-01-24 07:58] LABS: Uric Acid 3.1 mg/dL (2.4-5.7)
[2022-01-24 07:59] LABS: Alanine Aminotransferase 38 U/L (0-31); Albumin Level 3.6 g/dL (3.5-5.0); Alkaline Phosphatase 152 U/L (39-117); Anion Gap 11 (12-20); Aspartate Amino Transferase 30 U/L (5-31); Bilirubin Total 0.6 mg/dL (0.0-1.0); Blood Urea Nitrogen 16 mg/dL (9-16); Calcium 8.9 mg/dL (8.4-10.2); Carbon Dioxide 22 mmol/L (22-29); Chloride 110 mmol/L (96-108); Creatinine Clr Calc Pharmacy 79.3; Estimated Glomerular Filt Rate > 60; Glucose Random 94 mg/dL (60-115); Potassium 3.9 mmol/L (3.3-5.1); Sodium 139 mmol/L (135-145); Total Protein 6.6 g/dL (6.5-8.0)
[2022-01-24 07:59] LABS: Amorphous Sediment Urine 3+ /LPF; Bacteria Urine TRACE /LPF; RBC Urine 0 /HPF (0); Squamous Epithelial Cell Urine 2+ /LPF; WBC Urine 0-2 /HPF (0-4)
--- NOTE | 2022-01-24 09:04 | ED.GENADULT ---
HPI - General Adult General Chief complaint: Extremity Problem Stated complaint: Swollen Feet Time Seen by Provider: 01/24/22 09:03 Source: patient Mode of arrival: ambulatory Limitations: no limitations History of Present Illness HPI narrative: Patient is a 56 year old female presenting to the emergency department today with right foot and ankle swelling. Patient states that for the last week and a half, she has had swelling to her right foot and ankle and now the area seems to be changing color. Patient states that she was seen here for it previously and was told that she doesn't have a blood clot then after getting an ultrasound but now she believes one could have developed. Patient denies any dizziness, lightheadedness, abdominal pain, nausea, vomiting, fever, chills, blurry vision, double vision, loss of vision, chest pain, difficulty breathing, shortness of breath, back pain, night sweats, pain with urination, increased urinary frequency, increased urinary urgency, blood in her urine or stool, syncope or a near syncopal episode, recent trauma or falls, bowel incontinence, bladder incontinence, bowel retention, bladder retention, or any other complaints at this time. Onset (ago): week(s) Location: right and lower extremity Severity: mild Severity scale (1-10): 2 Relieving factors: none Exacerbating factors: none Associated symptoms: denies other symptoms Treatments prior to arrival: none Related Data Home Medications Medication Instructions Recorded Confirmed cyanocobalamin (vitamin B-12) 1,000 mcg PO DAILY 07/05/20 11/24/21 1,000 mcg capsule bupropion HCl 150 mg 24 hr tablet, 150 mg PO QAM 11/24/21 11/24/21 extended release clonazepam 1 mg tablet 1 mg PO BEDTIME 11/24/21 11/24/21 diltiazem HCl 180 mg 180 mg PO DAILY 11/24/21 11/24/21 capsule,extended release 24 hr fluticasone propionate 110 1 puff PO BID 11/24/21 11/24/21 mcg/actuation HFA aerosol inhaler (Flovent HFA) hydroxyzine pamoate 50 mg capsule 50 mg PO TID PRN 11/24/21 11/24/21 levothyroxine 25 mcg capsule 50 mcg PO DAILY cap 11/24/21 11/24/21 pantoprazole 40 mg tablet,delayed 40 mg PO DAILY 11/24/21 11/24/21 release zolpidem 10 mg tablet 10 mg PO BEDTIME 11/24/21 11/24/21 calcium citrate 250 mg PO DAILY 11/26/21 cholecalciferol (vitamin D3) 50 2,000 unit PO DAILY cap 11/26/21 mcg (2,000 unit) capsule Previous Rx's Medication Instructions Recorded imipramine HCl 10 mg tablet 10 mg PO BID 90 Days #180 tab 02/14/21 pediatric multivitamin no.17 1 tab PO DAILY #30 tab 02/19/21 calcium citrate 250 mg PO TID #90 tab 03/27/21 cholecalciferol (vitamin D3) 50 50 mcg PO DAILY #30 cap 03/27/21 mcg (2,000 unit) capsule gabapentin 100 mg capsule 100 mg PO TID #270 cap 04/15/21 tramadol 50 mg tablet 50 mg PO TID PRN #90 tab 04/15/21 amoxicillin 875 mg-potassium 1 tab PO BID 10 Days #20 tab 01/20/22 clavulanate 125 mg tablet Allergies Allergy/AdvReac Type Severity Reaction Status Date / Time ondansetron [From ZOFRAN] Allergy Unknown per H&P Verified 12/12/21 10:51 sumatriptan [From IMITREX] Allergy Unknown RASH FROM Verified 12/12/21 10:51 TABLET NOT INJECTION promethazine [From PHENERGAN] AdvReac Severe DYSTONIA Verified 12/12/21 10:51 Review of Systems Constitutional: Constitutional: Reports no additional constitutional complaints, Denies chills, Denies fever(s) and Denies night sweats Eyes: Eyes: Reports no additional eye complaints, Denies blurry vision, Denies change in vision, Denies diplopia, Denies eye discharge, Denies loss of vision and Denies eye pain ENT: Denies dizziness Cardiovascular: Cardiovascular: Reports no additional cardiovascular complaints, Denies chest pain, Denies lightheadedness, Denies Loss of Consciousness and Denies dyspnea Respiratory: Respiratory: Reports no additional respiratory complaints and Denies dyspnea Gastrointestinal: Gastrointestinal: Reports no additional gastrointestinal complaints, Denies abdominal pain, Denies melena, Denies hematochezia, Denies change in bowel habits and Denies change in stool character Genitourinary: Genitourinary: Denies hematuria, Denies urinary frequency, Denies dysuria, Denies urinary incontinence, Denies urinary hesitancy and Denies urinary urgency Musculoskeletal: Musculoskeletal: Reports no additional musculoskeletal complaints, Denies numbness and Denies tingling Comments: right foot and ankle swelling with skin discoloration Neurologic: Denies dizziness, Denies loss of vision, Denies numbness and Denies tingling Psychiatric: Psychiatric: Reports no additional psychiatric complaints Endocrine: Endocrine: Reports no additional endocrine complaints Hematologic/Lymphatic: Hematologic/Lymphatic: Reports no additional hematologic/lymphatic complaints Allergic/Immunologic: Allergic/Immunologic: Reports no additional allergic/immunologic complaints [facility] Past Medical History Attestation statement: The following information was validated with the patient. Source: old records reviewed Medical History History of secondary hyperparathyroidism Hyperparathyroidism Hypothyroidism Vitamin D deficiency Surgical History H/O bilateral salpingo-oophorectomy H/O left breast biopsy H/O: hysterectomy History of appendectomy History of bilateral tubal ligation S/P gastric bypass Family History Family History Mother Uterine cancer Father No problems noted. 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 Sexual orientation: Straight/Heterosexual Gender identity: Female Physical Exam ED Vital Signs: Vital Signs - 24 hr 01/24/22 07:19 Temperature 98.5 F Pulse Rate 84 Respiratory Rate 16 Blood Pressure 127/91 H Pulse Oximetry 97 BMI result Body Mass Index 28.1 Const General: cooperative, no acute distress, alert and awake Nutritional Appearance: well nourished Orientation/consciousness: patient oriented x3 Limitations: no limitations HENMT Head: Yes normal to inspection and Yes atraumatic Ears: hearing grossly normal bilaterally and external ears normal General nose exam: Normal external nose present, no nasal discharge noted and no epistaxis Face and sinus: Yes normal facial exam, No abrasion and No laceration Mouth: Normal oral and palatal mucosa present, no drooling and no muffled voice Eyes General: appearance normal, both eyes and all related structures Periorbital: periorbital findings normal Eyelids: Yes eyelids normal Conjunctivae: conjunctivae normal Pupils: Equal, round and reactive pupils present EOM: EOMs intact bilaterally Neck Neck: Yes normal visual inspection, Yes full ROM and Yes no lymphadenopathy Chest Chest palpation & inspection: normal inspection of the chest Resp Effort & Inspection: normal respiratory effort and able to speak in complete sentences Auscultation: clear to auscultation bilaterally Cardio Rate: regular rate Rhythm: regular rhythm GI Inspection: Yes normal to inspection Skin Other: venous stasis dermatitis present to the right ankle and distal portion of the right lower leg Neuro General: patient oriented x3 and moves all extremities Cranial nerves: Yes Equal, round and reactive pupils present Cognition (Neuro): normal cognition Motor exam (neuro): 5/5 motor strength present throughout Sensory Exam: Normal double simultaneous stimulation for sensation Coordination: [id number] test normal Extrem Other: swelling to the dorsal aspect of the right foot and circumferential swelling to the right ankle General: Yes full ROM and Yes capillary refill normal Psych Appearance: grossly normal Mental Status: mental status grossly normal Affect: normal affect Attitude: cooperative Thought process: Normal thought process present Thought content: Normal thought content present Insight: Good insight present (Psych) Medical Decision Making MDM Narrative Medical decision making narrative: Patient is a 56 year old female presenting to the emergency department today with right foot and ankle swelling and skin changes. Patient's physical exam did show edema to the dorsal aspect of the right foot and circumferentially around the right ankle as well as venous stasis dermatitis to the right lower extremity. Patient's blood work was unremarkable. Patient's right lower extremity venous and arterial US showed no acute process. I explained my physical exam findings as well as all test results to the patient. I answered all questions asked by the patient. I stressed the importance of the patient taking her medication as prescribed. I stressed the importance of the patient following up with her primary care provider, a vascular specialist, and the wound center. I stressed the importance of the patient returning to the emergency department immediately if her symptoms were to worsen or if she were to develop any dizziness, shortness of breath, difficulty breathing, chest pain, blurry vision, loss of vision, nausea, vomiting, abdominal pain, fever, chills, back pain, or any other complaints. Patient verbalized agreement and understanding with this treatment plan and discharge. Differential Diagnosis Differential Diagnosis: lymphedema, venous stasis dermatitis Medical Records Medical records reviewed: Yes I reviewed the patient's medical records. Lab Data Lab results reviewed: Yes I reviewed the patient's lab results. Result diagrams: 01/24/22 07:33 01/24/22 07:33 Labs: Lab Results 01/24/22 01/24/22 01/24/22 Range/Units 07:33 07:33 07:33 WBC 6.8 (4.8-10.8) X10*3/uL RBC 4.75 (4.20-5.50) X10*6/uL Hgb 12.3 (12.0-16.0) g/dl Hct 39.0 (37.0-47.0) % MCV 82.1 (80.0-98.0) fL MCH 25.9 L (27.0-33.0) pg MCHC 31.5 (31.0-35.0) g/dl RDW 14.6 (11.0-16.0) % Plt Count 321 (160-400) X10*3/uL MPV 8.3 L (9.4-12.3) fL Immature Gran % (Auto) 0.3 (0.0-0.4) % Neut % (Auto) 44.7 L (45-73) % Lymph % (Auto) 42.7 H (20-40) % [place] % (Auto) 8.2 (2-11) % Eos % (Auto) 3.4 (0-4) % Baso % (Auto) 0.7 (0-2) % Lymph # (Auto) 2.9 (1.2-4.9) X10*3/uL [place] # (Auto) 0.6 (0.1-1.2) X10*3/uL Eos # (Auto) 0.2 (0.0-0.4) X10*3/uL Baso # (Auto) 0.1 (0.0-0.2) X10*3/uL Abs Immat Gran (auto) 0.02 (0.00-0.03) X10*3/uL Absolute Neuts (auto) 3.1 (2.0-8.3) x10*3/uL Absolute Nucleated RBC 0.000 (0.0-0.012) X10*3/uL Nucleated RBC % (auto) 0.0 (0.0-0.2) /100WBC Sodium 139 (135-145) mmol/L Potassium 3.9 (3.3-5.1) mmol/L Chloride 110 H (96-108) mmol/L Carbon Dioxide 22 (22-29) mmol/L Anion Gap 11 L (12-20) BUN 16 (9-16) mg/dL Creatinine 0.82 (0.5-1.4) mg/dL Estim Creat Clear Calc 79.3 Estimated GFR > 60 Random Glucose 94 (60-115) mg/dL Uric Acid 3.1 (2.4-5.7) mg/dL Calcium 8.9 D (8.4-10.2) mg/dL Total Bilirubin 0.6 (0.0-1.0) mg/dL AST 30 (5-31) U/L ALT 38 H (0-31) U/L Alkaline Phosphatase 152 H (39-117) U/L Total Protein 6.6 (6.5-8.0) g/dL Albumin 3.6 (3.5-5.0) g/dL Urine Color Urine Appearance Urine pH (5.0-8.0) Ur Specific Barre (1.005-1.025) Urine Protein (NEG-TRACE) MG/DL Urine Glucose (UA) (NEG) MG/DL Urine Ketones (NEG) MG/DL Urine Blood (NEG) Urine Nitrite (NEG) Ur Leukocyte Esterase (NEG) Urine RBC (0) /HPF Urine WBC (0-4) /HPF Ur Squamous Epith Cells /LPF Amorphous Sediment /LPF Urine Bacteria /LPF 01/24/22 Range/Units 07:37 WBC (4.8-10.8) X10*3/uL RBC (4.20-5.50) X10*6/uL Hgb (12.0-16.0) g/dl Hct (37.0-47.0) % MCV (80.0-98.0) fL MCH (27.0-33.0) pg MCHC (31.0-35.0) g/dl RDW (11.0-16.0) % Plt Count (160-400) X10*3/uL MPV (9.4-12.3) fL Immature Gran % (Auto) (0.0-0.4) % Neut % (Auto) (45-73) % Lymph % (Auto) (20-40) % [place] % (Auto) (2-11) % Eos % (Auto) (0-4) % Baso % (Auto) (0-2) % Lymph # (Auto) (1.2-4.9) X10*3/uL [place] # (Auto) (0.1-1.2) X10*3/uL Eos # (Auto) (0.0-0.4) X10*3/uL Baso # (Auto) (0.0-0.2) X10*3/uL Abs Immat Gran (auto) (0.00-0.03) X10*3/uL Absolute Neuts (auto) (2.0-8.3) x10*3/uL Absolute Nucleated RBC (0.0-0.012) X10*3/uL Nucleated RBC % (auto) (0.0-0.2) /100WBC Sodium (135-145) mmol/L Potassium (3.3-5.1) mmol/L Chloride (96-108) mmol/L Carbon Dioxide (22-29) mmol/L Anion Gap (12-20) BUN (9-16) mg/dL Creatinine (0.5-1.4) mg/dL Estim Creat Clear Calc Estimated GFR Random Glucose (60-115) mg/dL Uric Acid (2.4-5.7) mg/dL Calcium (8.4-10.2) mg/dL Total Bilirubin (0.0-1.0) mg/dL AST (5-31) U/L ALT (0-31) U/L Alkaline Phosphatase (39-117) U/L Total Protein (6.5-8.0) g/dL Albumin (3.5-5.0) g/dL Urine Color YELLOW Urine Appearance HAZY Urine pH 6.5 (5.0-8.0) Ur Specific [place] 1.010 (1.005-1.025) Urine Protein NEG (NEG-TRACE) MG/DL Urine Glucose (UA) NEG (NEG) MG/DL Urine Ketones NEG (NEG) MG/DL Urine Blood NEG (NEG) Urine Nitrite NEG (NEG) Ur Leukocyte Esterase TRACE H (NEG) Urine RBC 0 (0) /HPF Urine WBC 0-2 (0-4) /HPF Ur Squamous Epith Cells 2+ /LPF Amorphous Sediment 3+ /LPF Urine Bacteria TRACE /LPF Imaging Data Right lower extremity venous US: Attestation: I personally reviewed and interpreted this imaging study as follows: Radiologist's impression: EXAMINATION:? US VENOUS ULTRASOUND WITH DOPPLER LOWER EXTREMITY, RIGHT CLINICAL INFORMATION:? Lower leg swelling/pain. Evaluate for deep vein thrombosis. COMPARISON:? Right lower extremity venous ultrasound dated 01/17/2022. TECHNIQUE: Ultrasound of the deep veins is performed from the hip to the calf with compression sonography and color and pulse Doppler assessment. Spectral analysis with color-flow imaging is performed. FINDINGS: There is normal venous compression and respiratory variation and augmented flow. The visualized common femoral vein, superficial femoral vein, profunda femoral vein, popliteal vein, and the trifurcation region shows no evidence of deep venous thrombosis. ? There is no significant popliteal fossa cyst. If the patient's symptoms persist, followup ultrasound in 5 days 7 days might be of value to exclude proximal propagation from a non-visualized calf vein. US/US venous duplex LE RT IMPRESSION: No DVT demonstrated in the right lower extremity. Dictated By: Chuck Greenberg MD Signed By: Electronically signed by Chuck Greenberg MD 01/24/22 1057 Right lower extremity arterial US: Attestation: I personally reviewed and interpreted this imaging study as follows: Radiologist's impression: EXAMINATION: Right LOWER EXTREMITY DUPLEX CLINICAL INFORMATION: Unilateral leg swelling and pain. Skin changes. COMPARISON: None TECHNIQUE: Real-time ultrasound and Doppler techniques (integrating B-mode 2-D vascular images, Doppler spectral analysis and color flow Doppler imaging) were utilized to interrogate the right lower extremity. FINDINGS: RIGHT LEG: Common femoral artery: 81.4 cm/s, multiphasic Profunda femoris artery: 83.2 cm/s, multiphasic Superficial femoral artery (proximal): 78.9 cm/s, multiphasic Superficial femoral artery (mid):? 75.7 cm/s, multiphasic Superficial femoral artery (distal):? 82.9 cm/s, multiphasic Proximal popliteal artery: 55.4 cm/s, multiphasic Distal popliteal artery: 43 cm/s, multiphasic Peroneal artery:? 34.9 cm/s, multiphasic Posterior tibial artery:? 36.8 cm/s, multiphasic US/US arterial duplex LE RT IMPRESSION: There is no evidence of any hemodynamically significant lower extremity arterial disease by duplex Doppler criteria at rest. Dictated By: Garth Rocha MD Signed By: Electronically signed by Garth Rocha MD 01/24/22 1127 Discharge Plan Discharge Clinical Impression: Lymphedema, Acute venous stasis dermatitis Patient Disposition: Home, Self-Care Instructions: Lymphedema (ED) Additional Instructions: Follow up with your primary care provider. Return to the emergency department immediately if your symptoms worsen or if you develop any dizziness, shortness of breath, difficulty breathing, chest pain, blurry vision, loss of vision, nausea, vomiting, abdominal pain, fever, chills, back pain, or any other complaints. Prescriptions: No Action cyanocobalamin (vitamin B-12) 1,000 mcg capsule 1,000 mcg PO DAILY 0RF imipramine HCl 10 mg tablet 10 mg PO BID 90 Days Qty: 180 0RF pediatric multivitamin no.17 Tablet,Chewable 1 tab PO DAILY Qty: 30 8RF calcium citrate 250 mg calcium tablet 250 mg PO TID Qty: 90 0RF cholecalciferol (vitamin D3) 50 mcg (2,000 unit) capsule 50 mcg PO DAILY Qty: 30 11RF gabapentin 100 mg capsule 100 mg PO TID Qty: 270 0RF tramadol 50 mg tablet 50 mg PO TID PRN (Reason: pain) Qty: 90 2RF calcium citrate 250 mg calcium tablet 250 mg PO DAILY 0RF cholecalciferol (vitamin D3) 50 mcg (2,000 unit) capsule 2,000 unit PO DAILY 0RF amoxicillin-pot clavulanate 875-125 mg tablet 1 tab PO BID 10 Days Qty: 20 0RF levothyroxine 25 mcg capsule 50 mcg PO DAILY 0RF clonazepam 1 mg tablet 1 mg PO BEDTIME 0RF Rx Instructions: administer 30 minutes before bedtime bupropion HCl 150 mg tablet extended release 24 hr 150 mg PO QAM 0RF pantoprazole 40 mg tablet,delayed release (DR/EC) 40 mg PO DAILY 0RF diltiazem HCl 180 mg capsule,extended release 24hr 180 mg PO DAILY 0RF Flovent HFA 110 mcg/actuation HFA aerosol inhaler 1 puff PO BID 0RF zolpidem 10 mg tablet 10 mg PO BEDTIME 0RF hydroxyzine pamoate 50 mg capsule 50 mg PO TID PRN (Reason: anxiety) 0RF Referrals: [facility] [place] Vascular Services [Provider Group] [facility] [place] Wound Care Management [Provider Group] Nupur Weir CORN HUSK BALER [Primary Care Provider] - Interventions: ED Discharge Assessment Last Done: 01/24/22 11:47 Discharge Date/Time: 01/24/22 11:48 Print Language: Indian
== END 2022-01-24 11:48 | disposition home or self-care (01) ==
PROVIDERS: Emergency Provider Emergency Medicine; PCP Nurse Practitioner Primary Care
DX: R60.0 Localized edema (principal); I87.2 Venous insufficiency (chronic) (peripheral); Z79.899 Other long term (current) drug therapy
CPT/HCPCS: 36415; 80053; 81001; 84550; 85025; 93926; 93971; 99283

== ENCOUNTER 2022-02-24 08:24 | Outpatient (REF) | payer MEDICAID, SELFPAY ==
[2022-02-24 10:38] LABS: Alanine Aminotransferase 27 U/L (0-31); Alkaline Phosphatase 155 U/L (39-117); Anion Gap 11 (12-20); Aspartate Amino Transferase 25 U/L (5-31); Bilirubin Total 0.5 mg/dL (0.0-1.0); Blood Urea Nitrogen 11 mg/dL (9-16); Calcium 9.4 mg/dL (8.4-10.2); Carbon Dioxide 27 mmol/L (22-29); Chloride 110 mmol/L (96-108); Estimated Glomerular Filt Rate > 60; Glucose Random 111 mg/dL (60-115); Phosphorus 4.1 mg/dL (2.7-4.5); Potassium 4.2 mmol/L (3.3-5.1); Sodium 144 mmol/L (135-145); Total Protein 7.3 g/dL (6.5-8.0)
[2022-02-24 10:51] LABS: Free T4 (Free Thyroxine) 0.91 ng/dL (0.71-1.85); Thyroid Stimulating Hormone 1.23 uIU/mL (0.32-4.0); Vitamin D 25-OH Total 32.8 ng/mL (>30)
[2022-02-25 15:26] LABS: Calcium (PTHI) 9.7 mg/dL (8.6-10.4); PTHI 40 pg/mL (16-77)
[2022-02-26 20:53] LABS: Alkaline Phosphatase Bone 27.5 mcg/L (5.6-29.0)
[2022-02-26 23:01] LABS: Prot Elec - Alpha1 0.3 g/dL (0.2-0.3); Prot Elec - Alpha2 0.8 g/dL (0.5-0.9); Prot Elec - Beta 1 0.6 g/dL (0.4-0.6); Prot Elec - Beta 2 0.4 g/dL (0.2-0.5); Prot Elec - Gamma 1.3 g/dL (0.8-1.7); Prot Elec - Total Protein 7.3 g/dL (6.1-8.1)
== END 2022-02-24 08:25 | disposition home or self-care (01) ==
LOC: HO.LAB 08:24
PROVIDERS: PCP Nurse Practitioner Primary Care; Visit Provider Internal Medicine
DX: M81.0 Age-related osteoporosis without current pathological fracture (principal); E03.9 Hypothyroidism, unspecified; E55.9 Vitamin D deficiency, unspecified
CPT/HCPCS: 36415; 80053; 82306; 83970; 84075; 84100; 84165; 84439; 84443

== ENCOUNTER 2022-02-28 11:44 | Outpatient (REF) | payer MEDICAID, SELFPAY ==
[2022-02-28 11:59] LABS: Total Volume 24 Hour Urine 3040 mL
[2022-02-28 12:11] LABS: Creatinine, 24Hr Urine 1.4 G/Day (1.0-2.0); Creatinine, mg/dL 47.62
[2022-03-02 19:06] LABS: Calcium, 24 Hr Urine 347 mg/24 h; Calcium/Creatinine Ratio 238 mg/g creat (30-275); Creatinine 24Hr Urine 1.46 g/24 h (0.50-2.15)
[2022-03-05 15:32] LABS: N-Telopeptide 70 (see note); NTXCreaRU 49 mg/dL (20-275)
== END 2022-02-28 11:45 | disposition home or self-care (01) ==
LOC: HO.LNP 11:44
PROVIDERS: Visit Provider Internal Medicine
DX: M81.0 Age-related osteoporosis without current pathological fracture (principal)
CPT/HCPCS: 82340; 82523; 82570

== ENCOUNTER 2022-03-03 10:59 | Outpatient (REF) | payer MEDICAID, SELFPAY ==
[2022-03-03 13:57] LABS: Anion Gap 11 (12-20); Blood Urea Nitrogen 14 mg/dL (9-16); Calcium 8.8 mg/dL (8.4-10.2); Carbon Dioxide 24 mmol/L (22-29); Chloride 108 mmol/L (96-108); Estimated Glomerular Filt Rate > 60; Glucose Random 102 mg/dL (60-115); Potassium 4.2 mmol/L (3.3-5.1); Sodium 139 mmol/L (135-145)
== END 2022-03-03 11:00 | disposition home or self-care (01) ==
LOC: HO.LAB 10:59
PROVIDERS: PCP Nurse Practitioner Primary Care; Visit Provider Nurse Practitioner Primary Care
DX: I10 Essential (primary) hypertension (principal); I83.11 Varicose veins of right lower extremity with inflammation
CPT/HCPCS: 36415; 80048; 99202

== ENCOUNTER 2022-05-24 12:22 | Emergency (ER) | payer MEDICAID, SELFPAY ==
--- NOTE | ~2022-05-24 | XR_ITS ---
EXAMINATION: XR CHEST CLINICAL INFORMATION: Chest pain COMPARISON: Previous chest x-ray most recent May 2018 TECHNIQUE: Frontal view of the chest was obtained. FINDINGS: No significant abnormality is noted involving the heart, lungs, mediastinum, bony thorax or soft tissues. XR/XR chest 1V IMPRESSION: Unremarkable examination.
--- NOTE | ~2022-05-24 | CT_ITS ---
EXAMINATION: CT HEAD WITHOUT CONTRAST CLINICAL INFORMATION: Headache x1 week. Left upper lip numbness. COMPARISON: CT scan of the head 03/27/2019. TECHNIQUE: Contiguous axial imaging was performed from the skull base to vertex without intravenous administration of contrast. This CT examination was performed using dose optimization techniques as appropriate, variously including the following: *Automated exposure control *Adjustment of mA and/or kV according to patient size (this includes techniques or standardized protocols for targeted exams where dose is matched to indication/reason for exam; i.e. extremities or head) *Use of iterative reconstruction technique DLP: 630 mGy-cm FINDINGS: There is no acute intracranial hemorrhage or abnormal extra-axial collection. No intracranial mass effect or midline shift. Lateral and third ventricles are normal. No hydrocephalus. Valentin-white matter differentiation is preserved and there is no evidence of acute territorial infarct. The calvarium and skull base are intact. No mastoid middle ear effusion. No active paranasal sinus disease. CT/CT head/brain wo IV con IMPRESSION: Normal CT scan of the head.
--- NOTE | 2022-05-24 13:02 | ECG_ITS ---
Test Reason : CP Blood Pressure : / mmHG Vent. Rate : 085 BPM Atrial Rate : 085 BPM P-R Int : 152 ms QRS Dur : 074 ms QT Int : 372 ms P-R-T Axes : 039 020 018 degrees QTc Int : 442 ms Normal sinus rhythm Normal ECG When compared with ECG of 07-APR-2019 21:24, No significant change was found Referred By: Generic ED Physician Electronically Signed By:CINDI BELL
[2022-05-24 13:46] LABS: MANUAL DIFF FLAG NO
[2022-05-24 13:48] LABS: Basophils Absolute Auto 0.1 X10*3/uL (0.0-0.2); Basophils Percent Auto 0.9 % (0-2); Eosinophils Absolute Auto 0.2 X10*3/uL (0.0-0.4); Eosinophils Percent Auto 2.4 % (0-4); Hematocrit 43.1 % (37.0-47.0); Hemoglobin 13.7 g/dl (12.0-16.0); Imm Gran Abs Auto 0.01 X10*3/uL (0.00-0.03); Imm Gran Pct Auto 0.2 % (0.0-0.4); Lymphocytes Absolute Auto 2.8 X10*3/uL (1.2-4.9); Lymphocytes Percent Auto 41.5 % (20-40); Mean Corpuscular HGB Conc 31.8 g/dl (31.0-35.0); Mean Corpuscular Hemoglobin 25.6 pg (27.0-33.0); Mean Corpuscular Volume 80.4 fL (80.0-98.0); Mean Platelet Volume 8.6 fL (9.4-12.3); Monocytes Absolute Auto 0.6 X10*3/uL (0.1-1.2); Monocytes Percent Auto 8.3 % (2-11); Neutrophils Absolute Auto 3.1 x10*3/uL (2.0-8.3); Neutrophils Percent Auto 46.7 % (45-73); Platelet Count 409 X10*3/uL (160-400); Red Blood Count 5.36 X10*6/uL (4.20-5.50); Red Cell Distribution Width 17.2 % (11.0-16.0); White Blood Count 6.6 X10*3/uL (4.8-10.8)
[2022-05-24 14:02] LABS: Anion Gap 13 (12-20); Blood Urea Nitrogen 10 mg/dL (9-16); Calcium 9.6 mg/dL (8.4-10.2); Carbon Dioxide 25 mmol/L (22-29); Chloride 109 mmol/L (96-108); Estimated Glomerular Filt Rate > 60; Glucose Random 91 mg/dL (60-115); Sodium 143 mmol/L (135-145)
[2022-05-24 14:07] LABS: Troponin-I High Sensitivity < 3.5 ng/L (<3.5-17.0)
[2022-05-24 14:43] VITALS: BP 145/94; PULSE 83; RESP 18; TEMP 36.1; O2SAT 100; BMI 26.6
[2022-05-24 20:44] VITALS: BP 151/97; PULSE 85; RESP 33; TEMP 37.3; O2SAT 100
--- NOTE | 2022-05-24 20:53 | PC.NURSE ---
Pt V/S are higher than her based line. Pt is placed on the telemetry with NSR, RR 33, lung sound are clear and no edema on her legs.
--- NOTE | 2022-05-24 21:26 | ED_ITS ---
HPI - Chest Pain General Chief Complaint: Chest Pain Stated Complaint: Chest pain/Headache/HBP Time Seen by Provider: 05/24/22 14:38 Source: patient Mode of arrival: ambulatory Limitations: no limitations History of Present Illness HPI narrative: Patient comes to the emergency room complaining of 1 week of a migraine headache, chest pressure, back pain, mild left upper lip numbness. 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 Patient states that they could not do anything because her blood pressure was high. Patient went to see her primary care physician and they increased her medication. Patient does not know which medication she takes her blood pressure. Patient states that she has had occasional sharp pains on the left side of the chest that radiated towards the back, lasting a few seconds at a time. At this time, patient has no chest pain, no lip numbness, no paresthesias in upper lower extremities, denies any loss of motor function. Patient states that she continues having the headache, it is always on top of her head and complaining of photophobia, complaining of nausea with no vomiting or diarrhea. Related Data Home Medications Medication Instructions Recorded Confirmed cyanocobalamin (vitamin B-12) 1,000 mcg PO DAILY 07/05/20 05/19/22 1,000 mcg capsule bupropion HCl 150 mg 24 hr tablet, 150 mg PO QAM 11/24/21 05/19/22 extended release clonazepam 1 mg tablet 1 mg PO BEDTIME 11/24/21 05/19/22 diltiazem HCl 180 mg 180 mg PO DAILY 11/24/21 05/19/22 capsule,extended release 24 hr fluticasone propionate 110 1 puff PO BID 11/24/21 05/19/22 mcg/actuation HFA aerosol inhaler (Flovent HFA) hydroxyzine pamoate 50 mg capsule 50 mg PO TID PRN anxiety 11/24/21 05/19/22 levothyroxine 25 mcg capsule 50 mcg PO DAILY 11/24/21 05/19/22 pantoprazole 40 mg tablet,delayed 40 mg PO DAILY 11/24/21 05/19/22 release zolpidem 10 mg tablet 10 mg PO BEDTIME 11/24/21 05/19/22 calcium citrate 250 mg PO DAILY 11/26/21 05/19/22 cholecalciferol (vitamin D3) 50 2,000 unit PO DAILY 11/26/21 05/19/22 mcg (2,000 unit) capsule Previous Rx's Medication Instructions Recorded imipramine HCl 10 mg tablet 10 mg PO BID 90 days #180 tabs 02/14/21 pediatric multivitamin no.17 1 tab PO DAILY #30 tabs 02/19/21 gabapentin 100 mg capsule 100 mg PO TID #270 caps 04/15/21 tramadol 50 mg tablet 50 mg PO TID PRN pain #90 tabs 04/15/21 amoxicillin 875 mg-potassium 1 tab PO BID uti 10 days #20 tabs 01/20/22 clavulanate 125 mg tablet dfluftpqyj-smjaphdgzqcpk-fbwpllgz 2 cap PO Q4-6H PRN pain #10 caps 05/24/22 50 mg-300 mg-40 mg capsule (Fioricet) Allergies Allergy/AdvReac Type Severity Reaction Status Date / Time ondansetron [From ZOFRAN] Allergy Unknown per H&P Verified 05/24/22 14:38 sumatriptan [From IMITREX] Allergy Unknown RASH FROM Verified 05/24/22 14:38 TABLET NOT INJECTION promethazine [From PHENERGAN] AdvReac Severe DYSTONIA Verified 05/24/22 14:38 Review of Systems Review of Systems: Constitutional : No Weight loss, No Fever, No Chills, No Night Sweats, No Fatigue, No Malaise ENT/Mouth : No Hearing loss, No Ear Pain, No Nasal Congestion, No Sinus Pain, No Hoarseness, No sore throat, No Rhinorrhea, No Swallowing Difficulty Eyes: No Eye Pain, No Swelling, No Redness, No Foreign Body, No Discharge, No Vision Changes Cardiovascular : No Chest Pain, No SOB, No Dyspnea on Exertion, No Orthopnea, No Edema, No Palpitations Respiratory : No Cough, No Sputum, No Wheezing, No Smoke Exposure, No Dyspnea Gastrointestinal : Complaining of Nausea, No Vomiting, No Diarrhea, No Co nstipation, No abdominal Pain, No Hematochezia, No Melena Genitourinary : no irregular bleeding, No Dysuria, No Urinary Frequency, No Hematuria, No Urinary Incontinence, No Urgency, No Flank Pain, No Urinary Flow Changes, No Hesitancy Musculoskeletal : No joint pain, No Myalgias, No Joint Swelling Skin : No Skin Lesions, No rash Neuro : No Weakness, No Numbness, no loss of consciousness, no dizziness, complaining of a migraine headache on the top of her head, complaining of mild left upper lip numbness but it is not present anymore Psych : No Anxiety/Panic, No Depression, No SI/HI/AH/VH, No Social Issues, Heme/Lymph: No Bruising, No Bleeding,No Lymphadenopathy Endocrine : No Polyuria, No Polydipsia, No Temperature Intolerance [facility] Past Medical History Medical History History of secondary hyperparathyroidism Hyperparathyroidism Hypothyroidism Vitamin D deficiency Surgical History H/O bilateral salpingo-oophorectomy H/O left breast biopsy H/O: hysterectomy History of appendectomy History of bilateral tubal ligation S/P gastric bypass Family History Family History Mother Uterine cancer Father No problems noted. 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 Oriented X3. No acute distress. Eyes: Pupils equal, round and reactive to light. ENT: Pharynx normal. Neck: Normal inspection. Neck supple. No lymph nodes noted. No crepitus CVS: Normal heart rate and rhythm. Pulses normal. Normal S1 and S2 Respiratory: No respiratory distress. Breath sounds normal. No Wheezing. No rales Abdomen: Soft and nontender. No rigidity. No distention. Skin: Skin warm and dry. Normal skin color. Normal skin turgor. Extremities: No lower extremity edema. No Lacerations. No Rash Neuro: Oriented X 3. No motor deficit. No sensory deficit. Moving all extremities. No slurred speech. CN 2 through 12 grossly intact Psych: calm, cooperative, normal affect NIH Stroke Scale Level of Consciousness: Alert Level of Consciousness Questions: Answers both questions correctly Level of Consciousness Commands: Performs both tasks correctly Best Gaze: Normal Visual: No visual loss Facial Palsy: Normal Motor Arm (Right): No drift Motor Arm (Left): No drift Motor Leg (Right): No drift Motor Leg (Left): No drift Limb Ataxia: Absent Sensory: Normal Best Language: No aphasia Dysarthia: Normal Extinction and Inattention: No abnormality Score: 0 Course Course Course Narrative: Patient states that she used to take medications specific for migraines a year ago but she has not had any migraines and ran out of meds. Patient decided not to take anything for headache over the last week because she was hoping it would go away by itself. At this time, head CT pending, patient receiving cocktail for migraine headache. NIH score is 0. I discussed the head CT with the patient, no acute findings. Patient has had the symptoms for over a week now, likely to be positive if it was stroke related. Again, patient has no motor dysfunction a nonspecific complaints. Patient's symptoms likely secondary to migraine headache. Upon a negative, EKG within normal limits, normal sinus rhythm, heart rate 85, nonspecific T-wave inversion in lead 3, no ST segment depression or elevation, QTC 442 Patient feeling better. Patient will be sent home MDM - Chest Pain Lab Data Result diagrams: 05/24/22 13:23 05/24/22 13:23 Labs: Lab Results 05/24/22 05/24/22 05/24/22 Range/Units 13:23 13:23 13:23 WBC 6.6 (4.8-10.8) X10*3/uL RBC 5.36 (4.20-5.50) X10*6/uL Hgb 13.7 (12.0-16.0) g/dl Hct 43.1 (37.0-47.0) % MCV 80.4 (80.0-98.0) fL MCH 25.6 L (27.0-33.0) pg MCHC 31.8 (31.0-35.0) g/dl RDW 17.2 H (11.0-16.0) % Plt Count 409 H D (160-400) X10*3/uL MPV 8.6 L (9.4-12.3) fL Immature Gran % (Auto) 0.2 (0.0-0.4) % Neut % (Auto) 46.7 (45-73) % Lymph % (Auto) 41.5 H (20-40) % Jefferson % (Auto) 8.3 (2-11) % Eos % (Auto) 2.4 (0-4) % Baso % (Auto) 0.9 (0-2) % Lymph # (Auto) 2.8 (1.2-4.9) X10*3/uL Jefferson # (Auto) 0.6 (0.1-1.2) X10*3/uL Eos # (Auto) 0.2 (0.0-0.4) X10*3/uL Baso # (Auto) 0.1 (0.0-0.2) X10*3/uL Abs Immat Gran (auto) 0.01 (0.00-0.03) X10*3/uL Absolute Neuts (auto) 3.1 (2.0-8.3) x10*3/uL Absolute Nucleated RBC 0.000 (0.0-0.012) X10*3/uL Nucleated RBC % (auto) 0.0 (0.0-0.2) /100WBC Sodium 143 (135-145) mmol/L Potassium 4.0 (3.3-5.1) mmol/L Chloride 109 H (96-108) mmol/L Carbon Dioxide 25 (22-29) mmol/L Anion Gap 13 (12-20) BUN 10 (9-16) mg/dL Creatinine 0.84 (0.5-1.4) mg/dL Estim Creat Clear Calc TNP Estimated GFR > 60 Random Glucose 91 (60-115) mg/dL Calcium 9.6 D (8.4-10.2) mg/dL Troponin I High Sens < 3.5 (<3.5-17.0) ng/L Imaging Data CT scan - head: Radiologist's impression: FINDINGS: There is no acute intracranial hemorrhage or abnormal extra-axial collection. No intracranial mass effect or midline shift. Lateral and third ventricles are normal. No hydrocephalus. Valentin-white matter differentiation is preserved and there is no evidence of acute territorial infarct. The calvarium and skull base are intact. No mastoid middle ear effusion. No active paranasal sinus disease. ? CT/CT head/brain wo IV con IMPRESSION: Normal CT scan of the head. Discharge Plan Discharge Clinical Impression: Headache, migraine Patient Disposition: Home, Self-Care Instructions: Acute Headache (ED) Additional Instructions: Please follow-up with your primary care physician tomorrow. If you have any worsening or new symptoms, please return to the emergency room or call 911 Prescriptions: New tfeojhdsdb-gsdarzlozijic-yjlh [Fioricet] 50-300-40 mg capsule 2 cap PO Q4-6H PRN (Reason: pain) Qty: 10 0RF Rx Instructions: do not exceed 6 caps per day No Action cyanocobalamin (vitamin B-12) 1,000 mcg capsule 1,000 mcg PO DAILY imipramine HCl 10 mg tablet 10 mg PO BID 90 Days Qty: 180 0RF pediatric multivitamin no.17 Tablet,Chewable 1 tab PO DAILY Qty: 30 8RF gabapentin 100 mg capsule 100 mg PO TID Qty: 270 0RF tramadol 50 mg tablet 50 mg PO TID PRN (Reason: pain) Qty: 90 2RF calcium citrate 250 mg calcium tablet 250 mg PO DAILY cholecalciferol (vitamin D3) 50 mcg (2,000 unit) capsule 2,000 unit PO DAILY amoxicillin-pot clavulanate 875-125 mg tablet 1 tab PO BID 10 Days Qty: 20 0RF levothyroxine 25 mcg capsule 50 mcg PO DAILY clonazepam 1 mg tablet 1 mg PO BEDTIME Rx Instructions: administer 30 minutes before bedtime bupropion HCl 150 mg tablet extended release 24 hr 150 mg PO QAM pantoprazole 40 mg tablet,delayed release (DR/EC) 40 mg PO DAILY diltiazem HCl 180 mg capsule,extended release 24hr 180 mg PO DAILY Flovent HFA 110 mcg/actuation HFA aerosol inhaler 1 puff PO BID zolpidem 10 mg tablet 10 mg PO BEDTIME hydroxyzine pamoate 50 mg capsule 50 mg PO TID PRN (Reason: anxiety)
--- NOTE | 2022-05-24 21:32 | PC.NURSE ---
pt to radiology
[2022-05-24] MEDS: 0.9 % Sodium Chloride 1,000 ML 999 ML IVCONT (22:01)
[2022-05-24] MEDS: diphenhydrAMINE HCL 50 MG/ML VIAL 25 MG IVPUSH (22:06)
[2022-05-24] MEDS: Ketorolac Tromethamine 30 MG/ML VIAL IVPUSH (22:06)
[2022-05-24] MEDS: Metoclopramide HCl 10 MG/2 ML VIAL IVPUSH (22:06)
--- NOTE | 2022-05-24 22:09 | PC.NURSE ---
patient a&ox3, alarm security or surveillance monitor nsr 70s, iv inserted, pt medicated per order, will continue to monitor
--- NOTE | 2022-05-24 23:56 | PC.NURSE ---
pt a&o, no sob or chest pain. reviewed discharge instructions , pt verbalized undertstanding.
== END 2022-05-25 00:28 | disposition home or self-care (01) ==
PROVIDERS: Emergency Provider Emergency Medicine; PCP Nurse Practitioner Primary Care
DX: G43.909 Migraine, unspecified, not intractable, without status migrainosus (principal); R07.89 Other chest pain; Z79.899 Other long term (current) drug therapy
CPT/HCPCS: 36415; 70450; 71045; 80048; 84484; 85025; 93005; 99284; 99285; J1200; J1885; J2765

== ENCOUNTER 2022-05-29 11:41 | Outpatient (REF) | payer MEDICAID, SELFPAY ==
[2022-05-29 13:24] LABS: Alanine Aminotransferase 17 U/L (0-31); Albumin Level 4.2 g/dL (3.5-5.0); Alkaline Phosphatase 136 U/L (39-117); Anion Gap 12 (12-20); Aspartate Amino Transferase 20 U/L (5-31); Bilirubin Total 0.6 mg/dL (0.0-1.0); Blood Urea Nitrogen 9 mg/dL (9-16); Calcium 9.2 mg/dL (8.4-10.2); Carbon Dioxide 26 mmol/L (22-29); Chloride 107 mmol/L (96-108); Estimated Glomerular Filt Rate > 60; Glucose Random 96 mg/dL (60-115); Phosphorus 3.3 mg/dL (2.7-4.5); Sodium 141 mmol/L (135-145); Total Protein 7.1 g/dL (6.5-8.0)
[2022-05-29 13:34] LABS: Vitamin D 25-OH Total 36.1 ng/mL (>30)
[2022-05-29 13:51] LABS: Creatinine, mg/dL 57.75
[2022-05-29 14:48] LABS: Creatinine, 24Hr Urine 1.7 G/Day (1.0-2.0); Total Volume 24 Hour Urine 3000 mL
[2022-05-31 13:31] LABS: Calcium (PTHI) 9.3 mg/dL (8.6-10.4); PTHI 82 pg/mL (16-77)
[2022-06-01 16:32] LABS: Calcium, 24 Hr Urine 420 mg/24 h; Calcium/Creatinine Ratio 237 mg/g creat (30-275); Creatinine 24Hr Urine 1.77 g/24 h (0.50-2.15)
== END 2022-05-29 11:42 | disposition home or self-care (01) ==
LOC: HO.LAB 11:41
PROVIDERS: Visit Provider Internal Medicine
DX: M81.0 Age-related osteoporosis without current pathological fracture (principal); E55.9 Vitamin D deficiency, unspecified
CPT/HCPCS: 36415; 80053; 82306; 82340; 82570; 83970; 84100

== ENCOUNTER 2022-06-03 10:33 | Outpatient (REF) | payer MEDICAID, SELFPAY ==
--- NOTE | ~2022-06-03 | US_ITS ---
EXAMINATION: US LOWER EXTREMITY VENOUS (REFLUX EXAM), BILATERAL CLINICAL INDICATION: Chronic venous insufficiency with lower extremity varicose veins COMPARISON: 01/24/2022 TECHNIQUE: Color flow triplex imaging and compression Doppler was performed to evaluate both the deep and the superficial systems bilaterally. To evaluate the superficial system, the examination was performed in the upright position. Color-flow Doppler ultrasound and compression ultrasound were utilized. In addition, maneuvers were utilized to demonstrate reflux. FINDINGS: 1. DEEP VENOUS ULTRASOUND OF THE RIGHT LOWER EXTREMITY: Common Femoral Vein: Compressible, normal respiratory variation and augmented flow. Femoral Vein: Compressible, normal color flow and augmentation. Popliteal Vein: Compressible, normal augmentation. Deep Reflux: There is no evidence of reflux in the deep system in either the common femoral vein or the popliteal vein. There is no evidence of a Fox's cyst. 2. SUPERFICIAL ULTRASOUND WITH DOPPLER OF RIGHT LOWER EXTREMITY: GREAT SAPHENOUS VEIN: Saphenofemoral Junction: 0.5 cm; Reflux: 0 ms Proximal Thigh: 0.5 cm; Reflux: 0 ms Mid Thigh: 0.2 cm; Reflux: 0 ms Above Knee: 0.2 cm; Reflux: 0 ms At Knee: 0.2 cm; Reflux: 0 ms Below Knee: 0.2 cm; Reflux: 0 ms Mid Calf: 0.1 cm; Reflux: 1252 ms Ankle: 0.1 cm; Reflux: 0 ms DUPLICATED MEDIAL GREAT SAPHENOUS VEIN: Diameter: None Imaged Reflux: NA DUPLICATED LATERAL GREAT SAPHENOUS VEIN: Diameter: None Imaged Reflux: NA SMALL SAPHENOUS VEIN: Proximal: 0.3 cm; Reflux: 0 ms Distal: 0.1 cm; Reflux: 0 ms VEIN OF GIACOMINI: None Imaged. PERFORATORS: Location: None significant Size: NA Reflux: NA VARICOSITIES: Location: None Imaged Size: NA Reflux: NA 3. DEEP VENOUS ULTRASOUND OF THE LEFT LOWER EXTREMITY: Common Femoral Vein: Compressible, normal respiratory variation and augmented flow. Femoral Vein: Compressible, normal color flow and augmentation. Popliteal Vein: Compressible, normal augmentation. Deep Reflux: There is no evidence of reflux in the deep system in either the common femoral vein or the popliteal vein. There is no evidence of a Fox's cyst. 4. SUPERFICIAL ULTRASOUND WITH DOPPLER OF LEFT LOWER EXTREMITY: GREAT SAPHENOUS VEIN: Saphenofemoral Junction: 0.4 cm; Reflux: 0 ms Proximal Thigh: 0.4 cm; Reflux: 0 ms Mid Thigh: 0.2 cm; Reflux: 0 ms Above Knee: 0.3 cm; Reflux: 0 ms At Knee: 0.2 cm; Reflux: 0 ms Below Knee: 0.1 cm; Reflux: 0 ms Mid Calf: 0.2 cm; Reflux: 0 ms Ankle: 0.2 cm; Reflux: 0 ms DUPLICATED MEDIAL GREAT SAPHENOUS VEIN: Diameter: None Imaged Reflux: NA DUPLICATED LATERAL GREAT SAPHENOUS VEIN: Diameter: 0.3 cm Reflux: None SMALL SAPHENOUS VEIN: Proximal: 0.4 cm; Reflux: 0 ms Distal: 0.2 cm; Reflux: 0 ms VEIN OF GIACOMINI: None Imaged. PERFORATORS: Location: None significant Size: NA Reflux: NA VARICOSITIES: Location: None Imaged Size: NA Reflux: NA US/US venous duplex LE BI IMPRESSION: Right: No significant venous insufficiency. There is one focal area of reflux in the mid calf great saphenous vein which is otherwise normal in size Left: No significant venous insufficiency.
== END 2022-06-03 10:34 | disposition home or self-care (01) ==
LOC: HO.US 10:33
PROVIDERS: Visit Provider Surgery Vascular Surgery
DX: I83.11 Varicose veins of right lower extremity with inflammation (principal)
CPT/HCPCS: 93970

== ENCOUNTER → 2022-06-11 09:59 | Outpatient (BNVA) | payer MEDICAID, SELFPAY | PROVIDERS: PCP Nurse Practitioner Primary Care; Visit Provider Surgery Vascular Surgery | DX: M79.89 Other specified soft tissue disorders (principal) | CPT/HCPCS: 99212 ==

== ENCOUNTER → 2022-06-18 12:49 | Outpatient (BNVA) | payer MEDICAID, SELFPAY | PROVIDERS: PCP Nurse Practitioner Primary Care; Visit Provider Internal Medicine | DX: M81.0 Age-related osteoporosis without current pathological fracture (principal); R82.994 Hypercalciuria; E03.9 Hypothyroidism, unspecified; E55.9 Vitamin D deficiency, unspecified | CPT/HCPCS: 99212 ==

== ENCOUNTER 2022-09-09 09:07 | Outpatient (REF) | payer MEDICAID, SELFPAY ==
--- NOTE | ~2022-09-09 | XR_ITS ---
EXAMINATION: XR SHOULDER, RIGHT XR SHOULDER, LEFT CLINICAL INFORMATION: Arm pain. COMPARISON: None. TECHNIQUE: AP external rotation, Grashey, scapular Y, and axillary views of each shoulder. FINDINGS: RIGHT SHOULDER: The bones and soft tissues are normal. No fracture. Glenohumeral and acromioclavicular alignment is anatomic with normal joint space. No abnormal soft tissue calcifications. LEFT SHOULDER: Slight offset (4 mm) at the acromioclavicular joint along the inferior cortices with relative cephalad displacement of the distal clavicle is asymmetric as compared to the contralateral side and could be the result of an old, healed acromioclavicular separation injury or due to normal variation. No fracture. Glenohumeral alignment is anatomic with normal joint space. No abnormal soft tissue calcifications. XR/XR shoulder RT min 2V IMPRESSION: Slight offset at the left acromioclavicular joint could be due to an old healed acromioclavicular separation injury or normal variation. Otherwise, normal radiographs of the shoulders.
--- NOTE | ~2022-09-09 | XR_ITS ---
EXAMINATION: XR SHOULDER, RIGHT XR SHOULDER, LEFT CLINICAL INFORMATION: Arm pain. COMPARISON: None. TECHNIQUE: AP external rotation, Grashey, scapular Y, and axillary views of each shoulder. FINDINGS: RIGHT SHOULDER: The bones and soft tissues are normal. No fracture. Glenohumeral and acromioclavicular alignment is anatomic with normal joint space. No abnormal soft tissue calcifications. LEFT SHOULDER: Slight offset (4 mm) at the acromioclavicular joint along the inferior cortices with relative cephalad displacement of the distal clavicle is asymmetric as compared to the contralateral side and could be the result of an old, healed acromioclavicular separation injury or due to normal variation. No fracture. Glenohumeral alignment is anatomic with normal joint space. No abnormal soft tissue calcifications. XR/XR shoulder LT min 2V IMPRESSION: Slight offset at the left acromioclavicular joint could be due to an old healed acromioclavicular separation injury or normal variation. Otherwise, normal radiographs of the shoulders.
[2022-09-09 13:16] LABS: Syphilis Screen Nonreactive (Nonreactive)
[2022-09-10 09:20] LABS: BV Int Neg Control Negative (Negative); BV Int Pos Control Positive (Positive)
[2022-09-11 09:51] LABS: HBsAGNum1 0.31 S/CO (0.00-0.99); HIV AB/AG Nonreactive (Nonreactive); HIV Num 1 0.06 S/CO (0.00-0.99); Hepatitis B Surface Antigen Negative (Negative); ~HepC Num1 0.11 S/CO (0.00-0.79); ~Hepatitis C Antibody Nonreactive (Nonreactive)
== END 2022-09-09 09:08 | disposition home or self-care (01) ==
LOC: HO.LAB 09:07
PROVIDERS: Absent Provider Nurse Practitioner Primary Care; PCP Nurse Practitioner Primary Care; Visit Provider Obstetrics & Gynecology
DX: Z01.419 Encounter for gynecological examination (general) (routine) without abnormal findings (principal); N76.0 Acute vaginitis; B96.89 Other specified bacterial agents as the cause of diseases classified elsewhere; M79.601 Pain in right arm; M79.602 Pain in left arm
CPT/HCPCS: 36415; 73030; 86780; 86803; 87340; 87389; 87480; 87510; 87660

== ENCOUNTER 2022-09-09 10:33 | Outpatient (REF) | payer MEDICAID, SELFPAY | END 2022-09-09 10:34 | disposition home or self-care (01) | LOC: HO.LNP 10:33 | PROVIDERS: Visit Provider Obstetrics & Gynecology | DX: Z13.89 Encounter for screening for other disorder (principal) ==

== ENCOUNTER 2022-09-21 08:12 | Outpatient (REF) | payer MEDICAID, SELFPAY ==
--- NOTE | ~2022-09-21 | MM_ITS ---
EXAMINATION: MM SCREENING DIGITAL BREAST TOMOSYNTHESIS, BILATERAL CLINICAL INFORMATION: Screening. Asymptomatic. Left axilla stereotactic biopsy (benign lymph node with tattoo ink). The lifetime risk of breast cancer based on the Tyrer-Cuzick Model is 10%. COMPARISON: Mammography: 09/10/2021, 10/29/2020, 09/18/2020, 08/20/2020, 11/08/2018 TECHNIQUE: Digital breast tomosynthesis is performed in both the craniocaudal and mediolateral oblique views along with computer-aided detection (CAD). Synthesized 2D images are generated from the tomosynthesis. FINDINGS: There are scattered areas of fibroglandular density (ACR BI-RADS breast composition Category b). There are no significant masses, abnormal calcifications, or other abnormalities. No developing density or architectural abnormality. Biopsy clip marker again seen left axilla. There is left nipple piercing in a piercing medial upper chest. MM/MM tomosynthesis screening BI IMPRESSION: No mammographic evidence of malignancy. ASSESSMENT: BI-RADS 2: Benign RECOMMENDATION: Routine annual mammography screening. This patient's information was entered into a reminder system with a target due date for their next mammogram.
== END 2022-09-21 08:13 | disposition home or self-care (01) ==
LOC: HO.MAMMO 08:12
PROVIDERS: PCP Nurse Practitioner Primary Care; Visit Provider Obstetrics & Gynecology
DX: Z12.31 Encounter for screening mammogram for malignant neoplasm of breast (principal)
CPT/HCPCS: 77063; 77067

== ENCOUNTER 2022-11-01 09:02 | Emergency (ER) | payer MEDICAID, SELFPAY ==
[2022-11-01 09:08] VITALS: BP 116/85; PULSE 96; RESP 18; TEMP 36.8; O2SAT 99; BMI 28.2
--- NOTE | 2022-11-01 10:25 | ED.GENADULT ---
HPI - General Adult General Chief complaint: Ear Problems Stated complaint: R ear pain Time Seen by Provider: 11/01/22 10:14 Source: patient Mode of arrival: ambulatory Limitations: no limitations History of Present Illness HPI narrative: 57 yold female presents to the ED for right ear pain since last night. patient states she had an earing in her ear and it fell out and the back piece fell into her right ear and has had pain ever since. Patient state she showered immediatley to try and take it out and does not remember if earing piece fell out the ear. Related Data Home Medications Medication Instructions Recorded Confirmed cyanocobalamin (vitamin B-12) 1,000 mcg PO DAILY 07/05/20 06/18/22 1,000 mcg capsule bupropion HCl 150 mg 24 hr tablet, 150 mg PO QAM 11/24/21 06/18/22 extended release clonazepam 1 mg tablet 1 mg PO BEDTIME 11/24/21 06/18/22 diltiazem HCl 180 mg 180 mg PO DAILY 11/24/21 06/18/22 capsule,extended release 24 hr fluticasone propionate 110 1 puff PO BID 11/24/21 06/18/22 mcg/actuation HFA aerosol inhaler (Flovent HFA) hydroxyzine pamoate 50 mg capsule 50 mg PO TID PRN anxiety 11/24/21 06/18/22 pantoprazole 40 mg tablet,delayed 40 mg PO DAILY 11/24/21 06/18/22 release zolpidem 10 mg tablet 10 mg PO BEDTIME 11/24/21 06/18/22 cholecalciferol (vitamin D3) 50 2,000 unit PO DAILY 11/26/21 06/18/22 mcg (2,000 unit) capsule levothyroxine 25 mcg capsule 25 mcg PO DAILY 06/18/22 06/18/22 Previous Rx's Medication Instructions Recorded imipramine HCl 10 mg tablet 10 mg PO BID 90 days #180 tabs 02/14/21 pediatric multivitamin no.17 1 tab PO DAILY #30 tabs 02/19/21 gabapentin 100 mg capsule 100 mg PO TID #270 caps 04/15/21 tramadol 50 mg tablet 50 mg PO TID PRN pain #90 tabs 04/15/21 tvihlhgols-[id number]-[id number] 2 cap PO Q4-6H PRN pain #10 caps 05/24/22 50 mg-300 mg-40 mg capsule (Fioricet) metronidazole 500 mg tablet 500 mg PO BID 7 days #14 tabs 09/09/22 hydrochlorothiazide 12.5 mg tablet 12.5 mg PO DAILY 30 days #30 tabs 09/28/22 amoxicillin 875 mg-potassium 1 tab PO Q12H 10 days #20 tabs 11/01/22 clavulanate 125 mg tablet naproxen 500 mg tablet 500 mg PO BID PRN pain 10 days #20 11/01/22 tabs Allergies Allergy/AdvReac Type Severity Reaction Status Date / Time ondansetron [From ZOFRAN] Allergy Unknown per H&P Verified 09/09/22 09:35 sumatriptan [From IMITREX] Allergy Unknown RASH FROM Verified 09/09/22 09:35 TABLET NOT INJECTION promethazine [From PHENERGAN] AdvReac Severe DYSTONIA Verified 09/09/22 09:35 Review of Systems Review of Systems: Right ear pain Yes all other systems are reviewed and are negative [facility] Past Medical History Medical History History of secondary hyperparathyroidism Hypercalciuria Hyperparathyroidism Hypothyroidism Vitamin D deficiency Surgical History H/O bilateral salpingo-oophorectomy H/O left breast biopsy H/O: hysterectomy History of appendectomy History of bilateral tubal ligation S/P gastric bypass Family History Family History Mother Uterine cancer Father No problems noted. 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 Sexual orientation: Straight/Heterosexual Gender identity: Female Physical Exam ED Vital Signs: Vital Signs - 24 hr 11/01/22 09:08 Temperature 98.2 F Pulse Rate 96 Respiratory Rate 18 Blood Pressure 116/85 Pulse Oximetry 99 Oxygen Delivery Method Room Air BMI result Body Mass Index 28.2 Const General: cooperative, healthy appearing, comfortable, no acute distress, well developed, alert, awake and Physically active Orientation/consciousness: oriented to person, oriented to place, oriented to time and patient oriented x3 [facility] Head: Yes normal to inspection, Yes No palpable skull fracture present, Yes normocephalic and No atraumatic Ears: hearing grossly normal bilaterally, external ears normal, TM normal on the left, EAC's normal, mastoids normal, no periauricular adenopathy and TM abnormal (right ear. no foreign body in ear on examination) bulging and erythematous Eyes General: appearance normal, both eyes and all related structures Neck Neck: Yes normal visual inspection, Yes full ROM, Yes no lymphadenopathy, Yes no meningeal signs, Yes trachea midline, Yes supple, No anterior neck swelling, No positive Brudzinski's sign and No positive Kernig's sign Chest Chest palpation & inspection: normal inspection of the chest and normal palpation of entire chest wall Resp Effort & Inspection: normal respiratory effort and able to speak in complete sentences Auscultation: clear to auscultation bilaterally Cardio Jugular venous distension: no JVD Heart sounds: S1 normal heart sound present and S2 normal heart sound present GI Inspection: Yes normal to inspection and No abdominal wall ecchymosis Palpation (GI): Soft to palpation, not firm, nontender, no guarding and not rigid General: No CVA tenderness and Yes no CVA tenderness Back/Spine/Pelvis Back: no CVA tenderness, No CVA tenderness and No back tenderness Skin General skin exam: no rashes or lesions noted and elasticity normal Neuro General: oriented to person, oriented to place, oriented to time, patient oriented x3, gait normal, tone normal, moves all extremities, Normal light touch and pain sensation and no meningeal signs Extrem General: Yes normal to inspection and Yes full ROM Psych Appearance: grossly normal, well kempt and not disheveled Course Course Course Narrative: Right ear pain. Reevaluation(s) Reevaluation #1: On visual inspection of right ear canal there was no obvious foreign body. To make sure normal saline was injected into ear to clean out some earwax and upon re-evaluation there was no foreign body in ear. Positive for tympanic membrane erythema and bulging. No redness or swelling of mastoids. Outer ear normal. Patient discharged antibiotic and pain medication. Exam negative for tympanic membrane perforation Time: 10:33 Medical Decision Making Medical Decision Making [facility] Narrative: 57-year-old female presents to ED for right ear pain for possible foreign body causing ear pain/irritation. Negative for complaints of hearing loss, ear discharge, bleeding from the ear, headache, dizziness, nausea, vomiting. Differential Diagnosis Differential Diagnoses: The differential diagnosis associated with the presentation includes (Foreign body, otitis media, otitis externa, tympanic membrane perforation.) Prescription Management I considered prescription management with: Pain Medication and Antibiotic Discharge Plan Discharge Clinical Impression: Otitis media Patient Disposition: Home, Self-Care Instructions: Ear Infection (ED) Additional Instructions: La historia del examen f?sico indica infecci?n del o?do. No hab?a whit?n cuerpo extra?o en el o?do. Regrese al servicio de urgencias si empeora el dolor de o?do, la secreci?n del o?do, el enrojecimiento o la hinchaz?n del o?do externo/[place] del o?do/o detr?s del o?do, n?useas, v?mitos, dolor de maulik, mareos, fiebre, escalofr?os o cualquier otro s?ntoma preocupante. Por favor, ibeth un seguimiento con el PCP. Prescriptions: New amoxicillin-pot clavulanate 875-125 mg tablet 1 tab PO Q12H 10 Days Qty: 20 0RF naproxen 500 mg tablet 500 mg PO BID PRN (Reason: pain) 10 Days Qty: 20 0RF No Action cyanocobalamin (vitamin B-12) 1,000 mcg capsule 1,000 mcg PO DAILY imipramine HCl 10 mg tablet 10 mg PO BID 90 Days Qty: 180 0RF pediatric multivitamin no.17 Tablet,Chewable 1 tab PO DAILY Qty: 30 8RF gabapentin 100 mg capsule 100 mg PO TID Qty: 270 0RF tramadol 50 mg tablet 50 mg PO TID PRN (Reason: pain) Qty: 90 2RF cholecalciferol (vitamin D3) 50 mcg (2,000 unit) capsule 2,000 unit PO DAILY hydrochlorothiazide 12.5 mg tablet 12.5 mg PO DAILY 30 Days Qty: 30 5RF [id number]-gpgbdhsccancw-pwsd [Fioricet] 50-300-40 mg capsule 2 cap PO Q4-6H PRN (Reason: pain) Qty: 10 0RF Rx Instructions: do not exceed 6 caps per day clonazepam 1 mg tablet 1 mg PO BEDTIME Rx Instructions: administer 30 minutes before bedtime bupropion HCl 150 mg tablet extended release 24 hr 150 mg PO QAM pantoprazole 40 mg tablet,delayed release (DR/EC) 40 mg PO DAILY diltiazem HCl 180 mg capsule,extended release 24hr 180 mg PO DAILY Flovent HFA 110 mcg/actuation HFA aerosol inhaler 1 puff PO BID zolpidem 10 mg tablet 10 mg PO BEDTIME hydroxyzine pamoate 50 mg capsule 50 mg PO TID PRN (Reason: anxiety) levothyroxine 25 mcg capsule 25 mcg PO DAILY metronidazole 500 mg tablet 500 mg PO BID 7 Days Qty: 14 0RF Stand Alone Forms: Work/School Release Interventions: ED Discharge Assessment Last Done: 11/01/22 10:42 Discharge Date/Time: 11/01/22 10:43 Print Language: Cuban
== END 2022-11-01 10:43 | disposition home or self-care (01) ==
PROVIDERS: Emergency Provider Emergency Medicine; PCP Nurse Practitioner Primary Care
DX: H66.91 Otitis media, unspecified, right ear (principal); Z79.899 Other long term (current) drug therapy
CPT/HCPCS: 99282

== ENCOUNTER 2022-11-12 12:21 | Outpatient (REF) | payer MEDICAID, SELFPAY ==
[2022-11-12 13:29] LABS: Hematocrit 40.8 % (37.0-47.0); Hemoglobin 13.2 g/dl (12.0-16.0); Mean Corpuscular HGB Conc 32.4 g/dl (31.0-35.0); Mean Corpuscular Hemoglobin 25.5 pg (27.0-33.0); Mean Corpuscular Volume 78.9 fL (80.0-98.0); Mean Platelet Volume 8.2 fL (9.4-12.3); Platelet Count 374 X10*3/uL (160-400); Red Blood Count 5.17 X10*6/uL (4.20-5.50); Red Cell Distribution Width 16.2 % (11.0-16.0); White Blood Count 6.2 X10*3/uL (4.8-10.8)
[2022-11-12 14:03] LABS: Alanine Aminotransferase 13 U/L (0-31); Alkaline Phosphatase 139 U/L (39-117); Aspartate Amino Transferase 19 U/L (5-31); Bilirubin Direct < 0.2 mg/dL (0.0-0.5); Bilirubin Total 0.7 mg/dL (0.0-1.0); Lipase 18 U/L (8-78)
== END 2022-11-12 12:22 | disposition home or self-care (01) ==
LOC: HO.LAB 12:21
PROVIDERS: PCP Nurse Practitioner Primary Care; Visit Provider Internal Medicine Gastroenterology
DX: R10.84 Generalized abdominal pain (principal)
CPT/HCPCS: 36415; 80076; 83690; 85027

== ENCOUNTER 2022-11-18 08:13 | Emergency (ER) | payer MEDICAID, SELFPAY ==
[2022-11-18 09:16] VITALS: BP 111/77; PULSE 84; RESP 16; TEMP 36.1; O2SAT 100; BMI 29.1
--- NOTE | 2022-11-18 10:29 | ED.BACK ---
HPI - Back Pain/Injury General Chief Complaint: Back Pain/Injury Stated Complaint: L lower back pain Time Seen by Provider: 11/18/22 10:19 Source: patient Mode of arrival: ambulatory Limitations: no limitations History of Present Illness HPI Narrative: 57-year-old female with history of hypertension presents with low back pain. The pain is located on the left side. Radiates left buttock. The pain is sharp. Source with movement, twisting and lifting. There is no loss of bowel or bladder control. She denies any paresthesias including saddle paresthesias. She denies any focal weakness. She denies any falls, injuries or heavy lifting events per prior treatment includes Tylenol without any assistance. Patient does have some urinary frequency but no dysuria or hematuria. Patient denies history of intravenous drug abuse. She denies any fevers or chills. Related Data Home Medications Medication Instructions Recorded Confirmed cyanocobalamin (vitamin B-12) 1,000 mcg PO DAILY 07/05/20 06/18/22 1,000 mcg capsule bupropion HCl 150 mg 24 hr tablet, 150 mg PO QAM 11/24/21 06/18/22 extended release clonazepam 1 mg tablet 1 mg PO BEDTIME 11/24/21 06/18/22 diltiazem HCl 180 mg 180 mg PO DAILY 11/24/21 06/18/22 capsule,extended release 24 hr fluticasone propionate 110 1 puff PO BID 11/24/21 06/18/22 mcg/actuation HFA aerosol inhaler (Flovent HFA) hydroxyzine pamoate 50 mg capsule 50 mg PO TID PRN anxiety 11/24/21 06/18/22 pantoprazole 40 mg tablet,delayed 40 mg PO DAILY 11/24/21 06/18/22 release zolpidem 10 mg tablet 10 mg PO BEDTIME 11/24/21 06/18/22 cholecalciferol (vitamin D3) 50 2,000 unit PO DAILY 11/26/21 06/18/22 mcg (2,000 unit) capsule levothyroxine 25 mcg capsule 25 mcg PO DAILY 06/18/22 06/18/22 Previous Rx's Medication Instructions Recorded imipramine HCl 10 mg tablet 10 mg PO BID 90 days #180 tabs 02/14/21 pediatric multivitamin no.17 1 tab PO DAILY #30 tabs 02/19/21 gabapentin 100 mg capsule 100 mg PO TID #270 caps 04/15/21 tramadol 50 mg tablet 50 mg PO TID PRN pain #90 tabs 04/15/21 vrcckxvbyt-ksbhvgdkelgoe-czaagbqd 2 cap PO Q4-6H PRN pain #10 caps 05/24/22 50 mg-300 mg-40 mg capsule (Fioricet) metronidazole 500 mg tablet 500 mg PO BID 7 days #14 tabs 09/09/22 hydrochlorothiazide 12.5 mg tablet 12.5 mg PO DAILY 30 days #30 tabs 09/28/22 amoxicillin 875 mg-potassium 1 tab PO Q12H 10 days #20 tabs 11/01/22 clavulanate 125 mg tablet naproxen 500 mg tablet 500 mg PO BID PRN pain 10 days #20 11/01/22 tabs cephalexin 500 mg capsule 500 mg PO Q12H #14 caps 11/18/22 cyclobenzaprine 10 mg tablet 10 mg PO TID PRN muscle spasm #10 11/18/22 tabs meloxicam submicronized 10 mg 10 mg PO DAILY #14 caps 11/18/22 capsule Allergies Allergy/AdvReac Type Severity Reaction Status Date / Time ondansetron [From ZOFRAN] Allergy Unknown per H&P Verified 09/09/22 09:35 sumatriptan [From IMITREX] Allergy Unknown RASH FROM Verified 09/09/22 09:35 TABLET NOT INJECTION promethazine [From PHENERGAN] AdvReac Severe DYSTONIA Verified 09/09/22 09:35 [facility] Past Medical History Medical History History of secondary hyperparathyroidism Hypercalciuria Hyperparathyroidism Hypothyroidism Vitamin D deficiency Surgical History H/O bilateral salpingo-oophorectomy H/O left breast biopsy H/O: hysterectomy History of appendectomy History of bilateral tubal ligation S/P gastric bypass Family History Family History Mother Uterine cancer Father No problems noted. 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 Sexual orientation: Straight/Heterosexual Gender identity: Female Physical Exam Vital Signs: Vital Signs: Last Vital Signs Temp 97 F 11/18/22 09:16 Pulse 84 11/18/22 09:16 Resp 16 11/18/22 09:16 BP 111/77 11/18/22 09:16 Pulse Ox 100 11/18/22 09:16 O2 Del Method 11/18/22 09:16 BMI result Body Mass Index 29.1 GEN: Well developed, no acute distress, alert, oriented HEENT: Normocephalic, atraumatic, normal external ears, nose appears normal, no oropharyngeal edema or exudates Eyes: Normal to appearance Neck: Supple, no lymphadenopathy Respiratory: Talks in complete sentences, no respiratory distress, clear to auscultation bilaterally Cardiovascular: Regular rate and rhythm, no murmurs rubs or gallops Abdomen: Soft, nontender, nondistended, no guarding, no rebound Back: No CVA tenderness Extremities: No clubbing cyanosis or edema Neurologic: No focal neurologic deficits, cranial nerves 2-12 intact, strength is 5/5 bilaterally, gait normal Skin: No rash Back: No midline tenderness, no step-off, left paraspinous tenderness, left SI tenderness Course Course Course Narrative: 57-year-old female presents with left low back pain. The pain radiates to her left buttock. There are no focal deficits. No injuries or falls or trauma. At this point there are no warning sign red flag events to warrant emergent imaging such as an MRI. There is no traumatic injury, x-ray does not appear to be necessary at this time as well. Patient is neurologically nonfocal. She has no fevers, no midline tenderness no history of intravenous drug abuse, doubt epidural abscess. There is no evidence of acute cauda equina syndrome. Patient will receive analgesics. She does have some urinary symptoms so will check urinalysis. She denies since she had a hysterectomy approximately 13 years ago. Reevaluation(s) Reevaluation #1: The workup is complete. Urinalysis does demonstrate a mild urinary tract infection. She received Keflex 500 mg orally in the emergency department. She will receive a 7 day course. Recommend close follow-up with primary care provider. I discussed all discharge instructions including the appropriate use of medications, NSAIDs, Tylenol and muscle relaxers. She is or muscle relaxers can cause drowsiness and she is aware she should not operate any kind of machinery while on this medication. She also understands reasons to return to the emergency department including uncontrolled back pain, high fevers, neurologic abnormalities, etc.. Time: 11:00 Medical Decision Making Medical Decision Making [facility] Narrative: This patient presents with back pain most consistent with musculoskeletal back pain. Differential diagnoses includes lumbago versus musculoskeletal spasm / strain versus sciatica.No back pain red flags on history or physical. Presentation not consistent with malignancy (lack of history of malignancy, lack of B symptoms), fracture (no trauma, no bony tenderness to palpation), cauda equina (no bowel or urinary incontinence/retention, no saddle anesthesia, no distal weakness), AAA, viscus perforation , pulmonary embolism, renal colic, pyelonephritis (afebrile, no CVAT, no urinary symptoms). Given the clinical picture, no indication for imaging at this time. Plan: pain control, supportive care, reassess Differential Diagnosis Differential Diagnoses: The differential diagnosis associated with the presentation includes (Muscle spasm, strain, sprain, less likely fracture, malignancy, AAA, renal colic, pyelonephritis) Acute low back pain Admission/Observation Consideration of admission/observation: Escalation of care including admission/observation considered Lab Data [facility] Lab Attestation statement: I reviewed the patient's lab results. Labs: Lab Results 11/18/22 11/18/22 Range/Units 10:39 10:39 Urine Color Dark Yellow Urine Appearance Clear Urine pH 8.0 (5.0-9.0) Ur Specific [place] 1.010 (1.005-1.025) Urine Protein Negative (Neg-Trace) mg/dL Urine Glucose (UA) Negative (Negative) mg/dL Urine Ketones Negative (Negative) mg/dL Urine Blood Negative (Negative) Urine Nitrite Negative (Negative) Ur Leukocyte Esterase Large (3+) H (Negative) Urine RBC 0-2 (0-2) /HPF Urine WBC 11-20 H (0-5) /HPF Ur Squamous Epith Cells 3-5 (0-2) /HPF Urine Bacteria None Seen (None Seen) Hyaline Casts 0-2 (0-2) /LPF Urine Test NEGATIVE (NEGATIVE) External Record Review External record reviewed: Office record (Outpatient OBGYN record, 09/09/2022) Tests considered The following testing was considered but not selected: X-ray, MRI, CT scan Prescription Management I considered prescription management with: Pain Medication and Antibiotic Chronic Conditions Patient?s care impacted by: Hypertension Discharge Plan Discharge Clinical Impression: Strain of lumbar region, UTI (urinary tract infection) Patient Disposition: Home, Self-Care Instructions: Urinary Tract Infection in Women (ED), Acute Low Back Pain (ED) Prescriptions: New meloxicam submicronized 10 mg capsule 10 mg PO DAILY Qty: 14 0RF cyclobenzaprine 10 mg tablet 10 mg PO TID PRN (Reason: muscle spasm) Qty: 10 0RF cephalexin 500 mg capsule 500 mg PO Q12H Qty: 14 0RF No Action cyanocobalamin (vitamin B-12) 1,000 mcg capsule 1,000 mcg PO DAILY imipramine HCl 10 mg tablet 10 mg PO BID 90 Days Qty: 180 0RF pediatric multivitamin no.17 Tablet,Chewable 1 tab PO DAILY Qty: 30 8RF gabapentin 100 mg capsule 100 mg PO TID Qty: 270 0RF tramadol 50 mg tablet 50 mg PO TID PRN (Reason: pain) Qty: 90 2RF cholecalciferol (vitamin D3) 50 mcg (2,000 unit) capsule 2,000 unit PO DAILY hydrochlorothiazide 12.5 mg tablet 12.5 mg PO DAILY 30 Days Qty: 30 5RF amoxicillin-pot clavulanate 875-125 mg tablet 1 tab PO Q12H 10 Days Qty: 20 0RF naproxen 500 mg tablet 500 mg PO BID PRN (Reason: pain) 10 Days Qty: 20 0RF [id number]-srnwwjbhjkumo-wfia [Fioricet] 50-300-40 mg capsule 2 cap PO Q4-6H PRN (Reason: pain) Qty: 10 0RF Rx Instructions: do not exceed 6 caps per day clonazepam 1 mg tablet 1 mg PO BEDTIME Rx Instructions: administer 30 minutes before bedtime bupropion HCl 150 mg tablet extended release 24 hr 150 mg PO QAM pantoprazole 40 mg tablet,delayed release (DR/EC) 40 mg PO DAILY diltiazem HCl 180 mg capsule,extended release 24hr 180 mg PO DAILY Flovent HFA 110 mcg/actuation HFA aerosol inhaler 1 puff PO BID zolpidem 10 mg tablet 10 mg PO BEDTIME hydroxyzine pamoate 50 mg capsule 50 mg PO TID PRN (Reason: anxiety) levothyroxine 25 mcg capsule 25 mcg PO DAILY metronidazole 500 mg tablet 500 mg PO BID 7 Days Qty: 14 0RF Referrals: Nupur Weir, RE[employer]ERATION SERVICE INSPECTOR [Primary Care Provider] - 1 week
--- NOTE | 2022-11-18 10:42 | MHC.EDTECH ---
Urine collected and sent to lab
[2022-11-18 10:51] LABS: Appearance Urine Clear; Color Urine Dark Yellow; Glucose Urine UA Negative (Negative); Leukocyte Esterase Urine Large (3+) (Negative); Nitrite Urine Negative (Negative); UMIC TRIGGER UACC YES; Urine Blood Negative (Negative); Urine Ketones Negative (Negative); Urine Protein Negative (Neg-Trace)
[2022-11-18 10:53] LABS: Bacteria Urine None Seen (None Seen); Hyaline Casts Urine 0-2 /LPF (0-2); RBC Urine 0-2 /HPF (0-2); UACC Culture Trigger YES; UPreg QC Valid YES; Urine Pregnancy NEGATIVE (NEGATIVE)
[2022-11-18] MEDS: Ketorolac Tromethamine 30 MG/ML VIAL IM (11:12)
[2022-11-18] MEDS: cephALEXin 500 MG CAPSULE PO (11:12)
[2022-11-18] MEDS: Cyclobenzaprine HCl 10 MG TABLET PO (11:13)
[2022-11-18] MEDS: Acetaminophen 325 MG TABLET 975 MG PO (11:13)
== END 2022-11-18 11:20 | disposition home or self-care (01) ==
PROVIDERS: Emergency Provider Emergency Medicine; PCP Nurse Practitioner Primary Care
DX: S39.012A Strain of muscle, fascia and tendon of lower back, initial encounter (principal); X58.XXXA Exposure to other specified factors, initial encounter; N39.0 Urinary tract infection, site not specified; I10 Essential (primary) hypertension; Y93.9 Activity, unspecified; Y92.9 Unspecified place or not applicable; Y99.9 Unspecified external cause status; Z79.899 Other long term (current) drug therapy
CPT/HCPCS: 81001; 81025; 87086; 96372; 99284; J1885

== ENCOUNTER → 2022-11-24 14:27 | Outpatient (BNVA) | payer MEDICAID, SELFPAY | PROVIDERS: PCP Nurse Practitioner Primary Care; Visit Provider Nurse Practitioner Family | DX: N30.10 Interstitial cystitis (chronic) without hematuria (principal); R30.0 Dysuria; R32 Unspecified urinary incontinence | CPT/HCPCS: 99202 ==

== ENCOUNTER 2022-11-25 12:10 | Emergency (ER) | payer MEDICAID, SELFPAY ==
--- NOTE | 2022-11-25 12:18 | ED_ITS ---
HPI - Back Pain/Injury General Chief Complaint: General Medical <RAMONE Ward - Last Filed: 11/25/22 12:21> Stated Complaint: L side back pain <RAMONE Ward - Last Filed: 11/25/22 12:21> Time Seen by Provider: 11/25/22 14:25 <RAMONE Ward - Last Filed: 11/25/22 12:21> Source: patient <Marleny Singh NP - Last Filed: 11/25/22 15:05> Mode of arrival: ambulatory <Marleny Singh NP - Last Filed: 11/25/22 15:05> Limitations: no limitations <Marleny Singh NP - Last Filed: 11/25/22 15:05> History of Present Illness HPI Narrative: This is a 57-year-old female with history of hypertension who presents the ER with complaints of left lower back pain for the last 3 weeks with no known injury or trauma. Patient reports she was seen here on November 18 diagnosed with a UTI and given a course of antibiotics which she completed today. Patient reports she is here because she has continued pain does not feel like it is better. She denies any urinary symptoms, fevers, vomiting, diarrhea, radiation of pain, numbness/tingling/weakness in lower extremities, numbness in the groin, bowel or bladder incontinence. Patient is ambulatory <Marleny Singh NP - Last Filed: 11/25/22 15:05> MD elicited complaint: back pain <Marleny Singh NP - Last Filed: 11/25/22 15:05> Related Data Home Medications: Home Medications Medication Instructions Recorded Confirmed cyanocobalamin (vitamin B-12) 1,000 mcg PO DAILY 07/05/20 06/18/22 1,000 mcg capsule bupropion HCl 150 mg 24 hr tablet, 150 mg PO QAM 11/24/21 06/18/22 extended release clonazepam 1 mg tablet 1 mg PO BEDTIME 11/24/21 06/18/22 diltiazem HCl 180 mg 180 mg PO DAILY 11/24/21 06/18/22 capsule,extended release 24 hr fluticasone propionate 110 1 puff PO BID 11/24/21 06/18/22 mcg/actuation HFA aerosol inhaler (Flovent HFA) hydroxyzine pamoate 50 mg capsule 50 mg PO TID PRN anxiety 11/24/21 06/18/22 pantoprazole 40 mg tablet,delayed 40 mg PO DAILY 11/24/21 06/18/22 release cholecalciferol (vitamin D3) 50 2,000 unit PO DAILY 11/26/21 06/18/22 mcg (2,000 unit) capsule levothyroxine 25 mcg capsule 25 mcg PO DAILY 06/18/22 06/18/22 losartan 50 mg tablet 50 mg PO DAILY blood pressure 11/24/22 Previous Rx's Medication Instructions Recorded gabapentin 100 mg capsule 100 mg PO TID #270 caps 04/15/21 cyclobenzaprine 10 mg tablet 10 mg PO TID PRN muscle spasm #10 11/18/22 tabs estradiol 0.01% (0.1 mg/gram) See Rx Instructions vaginal 3XW 30 11/24/22 vaginal cream days #42.5 grams oxybutynin chloride 10 mg 10 mg PO DAILY 30 days #30 tabs 11/24/22 tablet,extended release 24 hr cyclobenzaprine 10 mg tablet 10 mg PO TID PRN muscle spasm #15 11/25/22 tabs ibuprofen 600 mg tablet 600 mg PO Q8H PRN pain #30 tabs 11/25/22 lidocaine 5 % topical patch 1 patch topical DAILY #15 ea 11/25/22 (Lidoderm) cefpodoxime 200 mg tablet 200 mg PO BID 10 days #20 tabs 12/24/22 ibuprofen 600 mg tablet 600 mg PO Q8H PRN fever or pain 12/24/22 #14 tabs polyethylene glycol 3350 17 17 g PO DAILY PRN constipation 12/24/22 gram/dose oral powder (Miralax) #119 grams levofloxacin 750 mg tablet 750 mg PO DAILY #7 tabs 12/29/22 <RAMONE Ward - Last Filed: 11/25/22 12:21> Allergies/Adverse Reactions: Allergies Allergy/AdvReac Type Severity Reaction Status Date / Time ondansetron [From ZOFRAN] Allergy Unknown per H&P Verified 11/25/22 12:19 sumatriptan [From IMITREX] Allergy Unknown RASH FROM Verified 11/25/22 12:19 TABLET NOT INJECTION promethazine [From PHENERGAN] AdvReac Severe DYSTONIA Verified 11/25/22 12:19 <Ana María Be PA - Last Filed: 11/25/22 12:21> Review of Systems Review of Systems: Yes all other systems are reviewed and are negative <Marleny Singh NP - Last Filed: 11/25/22 15:05> Constitutional: Constitutional: Reports no additional constitutional complaints, Denies body ache(s), Denies chills, Denies fever(s), Denies headache(s) and Denies weakness <Marleny Singh NP - Last Filed: 11/25/22 15:05> Eyes: Eyes: Reports no additional eye complaints and Denies change in vision <Marleny Singh NP - Last Filed: 11/25/22 15:05> ENT: Reports system reviewed and no additional complaints, except as documented, Denies dizziness, Denies headache(s), Denies nasal congestion, Denies nasal discharge and Denies neck pain <Marleny Singh NP - Last Filed: 11/25/22 15:05> Cardiovascular: Cardiovascular: Reports no additional cardiovascular complaints, Denies chest pain, Denies leg edema and Denies dyspnea <Marleny Singh NP - Last Filed: 11/25/22 15:05> Respiratory: Respiratory: Reports no additional respiratory complaints, Denies cough and Denies dyspnea <Marleny Singh NP - Last Filed: 11/25/22 15:05> Gastrointestinal: Gastrointestinal: Reports no additional gastrointestinal complaints, Denies abdominal pain, Denies diarrhea, Denies nausea and Denies vomiting <Marleny Singh NP - Last Filed: 11/25/22 15:05> Genitourinary: Genitourinary: Reports no additional female genitourinary complaints and Denies urinary incontinence <Marleny Singh NP - Last Filed: 11/25/22 15:05> Musculoskeletal: Musculoskeletal: Reports no additional musculoskeletal complaints, Reports back pain, Denies arthralgias, Denies joint swelling, Denies neck pain, Denies numbness and Denies tingling <Marleny Singh NP - Last Filed: 11/25/22 15:05> Integumentary/Breasts: Skin/Breast: Reports system reviewed and no additional complaints, except as docu and Denies rash <Marleny Singh NP - Last Filed: 11/25/22 15:05> Neurologic: Reports system reviewed and no additional complaints, except as documented, Denies Abnormal speech present, Denies dizziness, Denies headache(s), Denies numbness, Denies tingling and Denies weakness <Marleny Singh NP - Last Filed: 11/25/22 15:05> [facility] Past Medical History Attestation statement: The following information was validated with the patient. <Marleny Singh NP - Last Filed: 11/25/22 15:05> Source: old records reviewed and nursing notes reviewed <Marleny Singh NP - Last Filed: 11/25/22 15:05> Medical History: Medical History History of secondary hyperparathyroidism Hypercalciuria Hyperparathyroidism Hypothyroidism Vitamin D deficiency <RAMONE Ward - Last Filed: 11/25/22 12:21> Surgical History: Surgical History H/O bilateral salpingo-oophorectomy H/O left breast biopsy H/O: hysterectomy History of appendectomy History of bilateral tubal ligation S/P gastric bypass <RAMONE Ward - Last Filed: 11/25/22 12:21> Family History Family History: Family History Mother Uterine cancer Father No problems noted. 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 Sexual orientation: Straight/Heterosexual Gender identity: Female <RAMONE Ward - Last Filed: 11/25/22 12:21> Physical Exam Vital Signs: Vital Signs: Last Vital Signs Temp 98 F 11/25/22 12:19 Pulse 90 11/25/22 12:19 Resp 18 11/25/22 12:19 BP 134/83 11/25/22 12:19 Pulse Ox 99 11/25/22 12:19 O2 Del Method Room Air 11/25/22 12:19 BMI result Body Mass Index 29.7 <RAMONE Ward - Last Filed: 11/25/22 12:21> Vital Signs: Last Vital Signs Temp 98 F 11/25/22 12:19 Pulse 90 11/25/22 12:19 Resp 18 11/25/22 12:19 BP 134/83 11/25/22 12:19 Pulse Ox 99 11/25/22 12:19 O2 Del Method Room Air 11/25/22 12:19 BMI result Body Mass Index 29.7 <Marleny Singh NP - Last Filed: 11/25/22 15:05> Const: General: cooperative, healthy appearing, comfortable and no acute distress <Marleny Singh NP - Last Filed: 11/25/22 15:05> Orientation/consciousness: patient oriented x3 <Marleny Singh NP - Last Filed: 11/25/22 15:05> Limitations: no limitations <Marleny Singh NP - Last Filed: 11/25/22 15:05> HEENT: Head: Yes normal to inspection <Marleny Singh NP - Last Filed: 11/25/22 15:05> Ears: hearing grossly normal bilaterally <Marleny Singh NP - Last Filed: 11/25/22 15:05> General nose exam: Normal external nose present <Marleny Singh NP - Last Filed: 11/25/22 15:05> Face and sinus: Yes normal facial exam <Marleny Singh NP - Last Filed: 11/25/22 15:05> Mouth: Normal oral and palatal mucosa present <Marleny Singh NP - Last Filed: 11/25/22 15:05> Throat: Yes posterior oropharynx normal <Marleny Singh [employer] - Last Filed: 11/25/22 15:05> Eyes: General: appearance normal, both eyes and all related structures <Marleny Singh [employer] - Last Filed: 11/25/22 15:05> Pupils: Equal, round and reactive pupils present <Marleny Singh [employer] - Last Filed: 11/25/22 15:05> Neck: Neck: Yes normal visual inspection <Marleny Singh [employer] - Last Filed: 11/25/22 15:05> Chest: Chest palpation & inspection: normal inspection of the chest <Marleny Singh [employer] - Last Filed: 11/25/22 15:05> Resp: Effort & Inspection: normal respiratory effort <Marleny Singh [employer] - Last Filed: 11/25/22 15:05> Auscultation: clear to auscultation bilaterally <Marleny Singh [employer] - Last Filed: 11/25/22 15:05> Cardio: Rate: regular rate <Marleny Singh [employer] - Last Filed: 11/25/22 15:05> Rhythm: regular rhythm <Marleny Singh [employer] - Last Filed: 11/25/22 15:05> Peripheral pulses: Peripheral pulses 2+ throughout <Marleny Singh [employer] - Last Filed: 11/25/22 15:05> GI: Inspection: Yes normal to inspection <Marleny Singh [employer] - Last Filed: 11/25/22 15:05> Palpation (GI): Soft to palpation and nontender <Marleny Singh [employer] - Last Filed: 11/25/22 15:05> Auscultation: normal bowel sounds <Marleny Singh [employer] - Last Filed: 11/25/22 15:05> : General: Yes no CVA tenderness <Marleny Singh [employer] - Last Filed: 11/25/22 15:05> Back/Spine/Pelvis: Other: Patient with tenderness on compression over the left SI joint This is worsened with straight leg raise on the left side <Marleny Pascucci, [employer] - Last Filed: 11/25/22 15:05> Back: no CVA tenderness <Marleny Yamilkacci, [employer] - Last Filed: 11/25/22 15:05> Thoracic/Lumbar Spine: thoracic and lumbar spine normal to inspection <Marleny Francisco, [employer] - Last Filed: 11/25/22 15:05> Skin: General skin exam: no rashes or lesions noted <Marleny Francisco, [employer] - Last Filed: 11/25/22 15:05> Neuro: General: patient oriented x3, no focal motor deficits and normal sensation to monofilament <Marleny Francisco, [employer] - Last Filed: 11/25/22 15:05> Cranial nerves: Yes CN's II-XII intact bilaterally, Yes Equal, round and reactive pupils present, Yes Bilaterally intact EOM present, Yes Nystagmus not present, Yes Normal facial strength present and Yes Midline tongue present <Marleny Akilai, [employer] - Last Filed: 11/25/22 15:05> Cognition (Neuro): normal cognition <Marleny Paswilliamcci, [employer] - Last Filed: 11/25/22 15:05> Speech: No Abnormal speech present <Marleny Paswilliamcci, [employer] - Last Filed: 11/25/22 15:05> Gait exam (Neuro): Normal gait present <Marleny Akilai, [employer] - Last Filed: 11/25/22 15:05> Motor exam (neuro): 5/5 motor strength present throughout <Marleny Akilai, [employer] - Last Filed: 11/25/22 15:05> Sensory Exam: Normal double simultaneous stimulation for sensation <Marleny Akilai, [employer] - Last Filed: 11/25/22 15:05> Deep tendon reflexes (DTR's): Right patellar reflex intensity grade: 2+ and Left patellar reflex intensity grade: 2+ <Marleny Francisco, [employer] - Last Filed: 11/25/22 15:05> Extrem: General: Yes normal to inspection <Marleny Francisco, [employer] - Last Filed: 11/25/22 15:05> Course Course Course Narrative: RME - 57 yo female presenting to the ER for evaluation of non-trauamtic, left lower back pain for the last 2 weeks. Radiates into the leg at times. Seen here on 11/18 - diagnosed with UTI. Discharged with Keflex, Flexeril, Meloxicam with no improvement. Worse with any movement. Plan: repeat UA, reassess and treat pain in treatment room <RAMONE Ward - Last Filed: 11/25/22 12:21> Medical Decision Making Medical Decision Making [facility] Narrative: This is a 57-year-old female who presents with atraumatic left lower back pain for the last 3 weeks when it with no known injury or trauma. Recent diagnosis of UTI which patient believes was contributing to her pain but she complete her course of antibiotics today with continued pain. Patient with tenderness over the left SI joint on compression. Patient with no midline tenderness, step-offs deformities. Patient with a normal neurological exam with no red flag symptoms. Likely sacroiliitis Patient will be discharged home with NSAID, muscle relaxants, Lidoderm patches Recommend follow-up with primary care doctor for further evaluation <Marleny Singh NP - Last Filed: 11/25/22 15:05> Differential Diagnosis Differential Diagnoses: The differential diagnosis associated with the presentation includes <Marleny Singh NP - Last Filed: 11/25/22 15:05> Sacroiliitis Less likely fracture, epidural abscess, cord compression, cauda equina, AAA, pyelo, uti <Marleny Singh NP - Last Filed: 11/25/22 15:05> Lab Data [facility] Lab Attestation statement: I reviewed the patient's lab results. <Marleny Singh NP - Last Filed: 11/25/22 15:05> Labs: Lab Results 11/25/22 Range/Units 12:24 Urine Color Dark Yellow Urine Appearance Clear Urine pH 6.5 (5.0-9.0) Ur Specific [place] 1.025 (1.005-1.025) Urine Protein Trace (Neg-Trace) mg/dL Urine Glucose (UA) Negative (Negative) mg/dL Urine Ketones Negative (Negative) mg/dL Urine Blood Negative (Negative) Urine Nitrite Negative (Negative) Ur Leukocyte Esterase Small (1+) H (Negative) Urine RBC 0-2 (0-2) /HPF Urine WBC 0-5 (0-5) /HPF Ur Squamous Epith Cells 0-2 (0-2) /HPF Urine Bacteria None Seen (None Seen) Hyaline Casts 0-2 (0-2) /LPF <RAMONE Ward - Last Filed: 11/25/22 12:21> Lab Results 11/25/22 Range/Units 12:24 Urine Color Dark Yellow Urine Appearance Clear Urine pH 6.5 (5.0-9.0) Ur Specific [place] 1.025 (1.005-1.025) Urine Protein Trace (Neg-Trace) mg/dL Urine Glucose (UA) Negative (Negative) mg/dL Urine Ketones Negative (Negative) mg/dL Urine Blood Negative (Negative) Urine Nitrite Negative (Negative) Ur Leukocyte Esterase Small (1+) H (Negative) Urine RBC 0-2 (0-2) /HPF Urine WBC 0-5 (0-5) /HPF Ur Squamous Epith Cells 0-2 (0-2) /HPF Urine Bacteria None Seen (None Seen) Hyaline Casts 0-2 (0-2) /LPF <Marleny Singh NP - Last Filed: 11/25/22 15:05> Discharge Plan Discharge Clinical Impression: Sacroiliac pain <RAMONE Ward - Last Filed: 11/25/22 12:21> Patient Disposition: Home, Self-Care <RAMONE Ward - Last Filed: 11/25/22 12:21> Instructions: Sacroiliitis (ED) <RAMONE Ward - Last Filed: 11/25/22 12:21> Additional Instructions: Heat or ice to the area gentle stretching No heavy lifting or bending Please follow up with your PCP as you may benefit from an injection in your left lower spine <RAMONE Ward - Last Filed: 11/25/22 12:21> Prescriptions: New lidocaine [Lidoderm] 5 % adhesive patch,medicated 1 patch topical DAILY Qty: 15 0RF Rx Instructions: leave on most painful area for up to 12 hrs cyclobenzaprine 10 mg tablet 10 mg PO TID PRN (Reason: muscle spasm) Qty: 15 0RF ibuprofen 600 mg tablet 600 mg PO Q8H PRN (Reason: pain) Qty: 30 0RF No Action cyanocobalamin (vitamin B-12) 1,000 mcg capsule 1,000 mcg PO DAILY gabapentin 100 mg capsule 100 mg PO TID Qty: 270 0RF cholecalciferol (vitamin D3) 50 mcg (2,000 unit) capsule 2,000 unit PO DAILY cyclobenzaprine 10 mg tablet 10 mg PO TID PRN (Reason: muscle spasm) Qty: 10 0RF levofloxacin 750 mg tablet 750 mg PO DAILY Qty: 7 0RF cefpodoxime 200 mg tablet 200 mg PO BID 10 Days Qty: 20 0RF Rx Instructions: must administer with a meal/food polyethylene glycol 3350 [Miralax] 17 gram/dose powder 17 g PO DAILY PRN (Reason: constipation) Qty: 119 0RF ibuprofen 600 mg tablet 600 mg PO Q8H PRN (Reason: fever or pain) Qty: 14 0RF clonazepam 1 mg tablet 1 mg PO BEDTIME Rx Instructions: administer 30 minutes before bedtime bupropion HCl 150 mg tablet extended release 24 hr 150 mg PO QAM pantoprazole 40 mg tablet,delayed release (DR/EC) 40 mg PO DAILY diltiazem HCl 180 mg capsule,extended release 24hr 180 mg PO DAILY Flovent HFA 110 mcg/actuation HFA aerosol inhaler 1 puff PO BID hydroxyzine pamoate 50 mg capsule 50 mg PO TID PRN (Reason: anxiety) levothyroxine 25 mcg capsule 25 mcg PO DAILY losartan 50 mg tablet 50 mg PO DAILY oxybutynin chloride 10 mg tablet extended release 24hr 10 mg PO DAILY 30 Days Qty: 30 1RF estradiol 0.01 % (0.1 mg/gram) cream See Rx Instructions vaginal 3XW 30 Days Qty: 42.5 0RF Rx Instructions: vaginally 3 times a week; pea sized amount to urethra 3 times a week <RAMONE Ward - Last Filed: 11/25/22 12:21> Referrals: Nupur Weir NP [Primary Care Provider] - 1 week <RAMONE Ward - Last Filed: 11/25/22 12:21> Interventions: ED Discharge Assessment Last Done: 11/25/22 14:42 <RAMONE Ward - Last Filed: 11/25/22 12:21> Discharge Date/Time: 11/25/22 14:43 <RAMONE Ward - Last Filed: 11/25/22 12:21>
[2022-11-25 12:19] VITALS: BP 134/83; PULSE 90; RESP 18; TEMP 36.6; O2SAT 99; BMI 29.7
[2022-11-25 12:32] LABS: Appearance Urine Clear; Color Urine Dark Yellow; Glucose Urine UA Negative (Negative); Leukocyte Esterase Urine Small (1+) (Negative); Nitrite Urine Negative (Negative); PH 6.5 (5.0-9.0); Specific Gravity - Urine 1.025 (1.005-1.025); UMIC TRIGGER UACC YES; Urine Blood Negative (Negative); Urine Ketones Negative (Negative); Urine Protein Trace mg/dL (Neg-Trace)
[2022-11-25 12:39] LABS: Bacteria Urine None Seen (None Seen); Hyaline Casts Urine 0-2 /LPF (0-2); RBC Urine 0-2 /HPF (0-2); Squamous Epithelial Cell Urine 0-2 /HPF (0-2); UACC Culture Trigger YES; WBC Urine 0-5 /HPF (0-5)
== END 2022-11-25 14:43 | disposition home or self-care (01) ==
PROVIDERS: Physician Assistant; Emergency Provider Emergency Medicine; PCP Nurse Practitioner Primary Care
DX: M54.50 Low back pain, unspecified (principal); M53.3 Sacrococcygeal disorders, not elsewhere classified; Z79.899 Other long term (current) drug therapy
CPT/HCPCS: 81001; 87086; 99282; 99283

== ENCOUNTER 2022-11-30 12:01 | Outpatient (REF) | payer MEDICAID, SELFPAY ==
[2022-11-30 13:35] LABS: Hematocrit 39.4 % (37.0-47.0); Hemoglobin 12.6 g/dl (12.0-16.0); Mean Corpuscular Hemoglobin 25.9 pg (27.0-33.0); Mean Corpuscular Volume 81.1 fL (80.0-98.0); Mean Platelet Volume 8.2 fL (9.4-12.3); Platelet Count 403 X10*3/uL (160-400); Red Blood Count 4.86 X10*6/uL (4.20-5.50); Red Cell Distribution Width 16.5 % (11.0-16.0); White Blood Count 6.9 X10*3/uL (4.8-10.8)
[2022-11-30 14:56] LABS: Alanine Aminotransferase 11 U/L (0-31); Albumin Level 3.8 g/dL (3.5-5.0); Alkaline Phosphatase 133 U/L (39-117); Aspartate Amino Transferase 15 U/L (5-31); Bilirubin Direct 0.2 mg/dL (0.0-0.5); Bilirubin Total 0.7 mg/dL (0.0-1.0); Total Protein 6.5 g/dL (6.5-8.0)
[2022-11-30 18:43] LABS: Lipase 19 U/L (8-78)
== END 2022-11-30 12:02 | disposition home or self-care (01) ==
LOC: HO.LAB 12:01
PROVIDERS: PCP Nurse Practitioner Primary Care; Visit Provider Internal Medicine Gastroenterology
DX: R10.13 Epigastric pain (principal)
CPT/HCPCS: 36415; 80076; 83690; 85027

== ENCOUNTER 2022-12-07 09:13 | Outpatient (REF) | payer MEDICAID, SELFPAY ==
--- NOTE | ~2022-12-07 | US_ITS ---
EXAMINATION: US ABDOMEN COMPLETE CLINICAL INFORMATION: Epigastric pain. COMPARISON: CT abdomen and pelvis 08/13/2020. TECHNIQUE: Real-time imaging of the abdominal viscera. FINDINGS: PANCREAS: Visualized portions of the pancreas are unremarkable. The pancreatic tail is obscured by bowel gas. ABDOMINAL AORTA: The proximal, mid, and distal segments are normal in caliber. INFERIOR VENA CAVA: Visualized portions are normal. LIVER: Liver is normal in size. The liver contour is normal. Parenchymal echogenicity is normal. No focal hepatic lesion. There is no intrahepatic biliary duct dilatation seen. GALLBLADDER: Surgically absent. COMMON BILE DUCT: Mildly dilated for the postcholecystectomy state measuring 1.3 cm in diameter. This is unchanged from prior CT where it measured 1.3 cm. RIGHT KIDNEY: No hydronephrosis or focal parenchymal lesions. The kidney measures 9.8 cm in maximum dimension. 3 mm nonobstructing midpole renal stone. LEFT KIDNEY: Normal. No hydronephrosis. No renal calculi or focal parenchymal lesions. The kidney measures 10.9 cm in maximum dimension. SPLEEN: Normal. The spleen measures 9.3 cm in maximum dimension. FREE FLUID: None. US/US abdomen complete IMPRESSION: 1. Status post cholecystectomy. Common bile duct is mildly dilated for the postcholecystectomy state measuring 1.3 cm in diameter, unchanged from prior. No intrahepatic biliary duct dilatation. 2. A 3 mm nonobstructing right renal stone.
--- NOTE | ~2022-12-07 | US_ITS ---
EXAMINATION: US PELVIS LIMITED (BLADDER) CLINICAL INFORMATION: Unspecified urinary incontinence. COMPARISON: CT abdomen and pelvis 08/13/2020. Renal ultrasound 02/16/2012. TECHNIQUE: Real-time imaging of the bladder. FINDINGS: BLADDER: Well distended and normal. Bilateral ureteral jets are demonstrated. Prevoid bladder volume is 185 mL. Postvoid bladder volume is 12 mL. US/US bladder IMPRESSION: Unremarkable bladder ultrasound.
== END 2022-12-07 09:14 | disposition home or self-care (01) ==
LOC: HO.US 09:13
PROVIDERS: Absent Provider Nurse Practitioner Family; PCP Nurse Practitioner Primary Care; Visit Provider Internal Medicine Gastroenterology
DX: R32 Unspecified urinary incontinence (principal); R30.0 Dysuria; N30.10 Interstitial cystitis (chronic) without hematuria
CPT/HCPCS: 76700; 76857

== ENCOUNTER 2022-12-23 12:49 | Outpatient (REF) | payer MEDICAID, SELFPAY | END 2022-12-23 12:50 | disposition home or self-care (01) | LOC: HO.US 12:49 | PROVIDERS: PCP Nurse Practitioner Primary Care; Visit Provider Nurse Practitioner Family | DX: Z13.89 Encounter for screening for other disorder (principal) ==

== ENCOUNTER 2022-12-24 13:02 | Emergency (ER) | payer MEDICAID, SELFPAY ==
--- NOTE | ~2022-12-24 | CT_ITS ---
EXAMINATION: CT ABDOMEN AND PELVIS WITHOUT CONTRAST CLINICAL INFORMATION: Left flank pain, stone COMPARISON: 08/13/2020 TECHNIQUE: Multidetector volumetric imaging was performed from the superior aspect of the liver through the pubic symphysis. Sagittal and coronal reformatted images were obtained on the technologist's workstation. This CT examination was performed using dose optimization techniques as appropriate, variously including the following: *Automated exposure control *Adjustment of mA and/or kV according to patient size (this includes techniques or standardized protocols for targeted exams where dose is matched to indication/reason for exam; i.e. extremities or head) *Use of iterative reconstruction technique DLP: 558 mGy-cm FINDINGS: LUNG BASES: The visualized lung bases are unremarkable. LIVER, GALLBLADDER, AND BILIARY TREE: The liver is normal in size, shape, and attenuation. No focal hepatic lesion or biliary ductal dilatation is present. Status post cholecystectomy. Prominent common duct once again seen. PANCREAS: Pancreas is not adequately delineated. Lack of oral and intravenous contrast SPLEEN: Unremarkable. ADRENAL GLANDS: Unremarkable. KIDNEYS AND URETERS: Small nonobstructing calculi on the right and left. Largest measures 3 mm on right.. No evidence of hydronephrosis. Ureters are not adequately seen but no convincing evidence for stone in the projected path of the ureters. BLADDER: Bladder is decompressed GASTROINTESTINAL TRACT: Moderate colonic stool. Nonobstructing bowel pattern. Again limited from lack of oral and intravenous contrast. Surgical sutures associated with bowel in the upper pelvis and left upper quadrant. No convincing evidence for an acute abnormality. No obstruction is seen. A normal appendix is not visualized but no definitive suspicion around the cecum. ABDOMINAL WALL: No significant hernia is appreciated. LYMPH NODES: No bulky adenopathy is felt to be present. VASCULAR: Some atherosclerotic changes are noted. PELVIC VISCERA: Unremarkable. OSSEOUS STRUCTURES: Stable appearing sclerotic lesion in the left iliac bone. CT/CT abdomen pelvis wo IV con IMPRESSION: Limited study as described. Some small renal calculi seen bilaterally. No evidence of ureteral stone or obstruction. The bowel pattern appears nonobstructing. No free fluid. [id number] colonic stool. Other findings are as described above. Fleischner guidelines were followed.
[2022-12-24 13:10] VITALS: BP 125/86; PULSE 80; RESP 18; TEMP 36.6; O2SAT 100; BMI 29.1
--- NOTE | 2022-12-24 13:11 | ED.GENADULT ---
HPI - General Adult General Chief complaint: General Medical <RAMONE Seo - Last Filed: 12/24/22 13:11> Stated complaint: Lower L back pain <RAMONE Seo Last Filed: 12/24/22 13:11> Time Seen by Provider: 12/24/22 17:33 <RAMONE Seo - Last Filed: 12/24/22 13:11> Source: patient <RAMONE Adam Last Filed: 12/24/22 18:09> Mode of arrival: ambulatory <RAMONE Adam Last Filed: 12/24/22 18:09> History of Present Illness HPI narrative: 57-year-old female with a past medical history of hypothyroid, vitamin-D deficiency, presenting to the ED complaining of intermittent left flank pain radiating to abdomen with associated dysuria and dark/or odorous urine x 3 days. Admits symptoms feel similar to prior kidney stone on contralateral side. Denies fever, chills, nausea, vomiting, diarrhea, hematuria <RAMONE Adam Last Filed: 12/24/22 18:09> Related Data Home medications: Home Medications Medication Instructions Recorded Confirmed cyanocobalamin (vitamin B-12) 1,000 mcg PO DAILY 07/05/20 06/18/22 1,000 mcg capsule bupropion HCl 150 mg 24 hr tablet, 150 mg PO QAM 11/24/21 06/18/22 extended release clonazepam 1 mg tablet 1 mg PO BEDTIME 11/24/21 06/18/22 diltiazem HCl 180 mg 180 mg PO DAILY 11/24/21 06/18/22 capsule,extended release 24 hr fluticasone propionate 110 1 puff PO BID 11/24/21 06/18/22 mcg/actuation HFA aerosol inhaler (Flovent HFA) hydroxyzine pamoate 50 mg capsule 50 mg PO TID PRN anxiety 11/24/21 06/18/22 pantoprazole 40 mg tablet,delayed 40 mg PO DAILY 11/24/21 06/18/22 release cholecalciferol (vitamin D3) 50 2,000 unit PO DAILY 11/26/21 06/18/22 mcg (2,000 unit) capsule levothyroxine 25 mcg capsule 25 mcg PO DAILY 06/18/22 06/18/22 losartan 50 mg tablet 50 mg PO DAILY blood pressure 11/24/22 Previous Rx's Medication Instructions Recorded gabapentin 100 mg capsule 100 mg PO TID #270 caps 04/15/21 cyclobenzaprine 10 mg tablet 10 mg PO TID PRN muscle spasm #10 11/18/22 tabs estradiol 0.01% (0.1 mg/gram) See Rx Instructions vaginal 3XW 30 11/24/22 vaginal cream days #42.5 grams oxybutynin chloride 10 mg 10 mg PO DAILY 30 days #30 tabs 11/24/22 tablet,extended release 24 hr cyclobenzaprine 10 mg tablet 10 mg PO TID PRN muscle spasm #15 11/25/22 tabs ibuprofen 600 mg tablet 600 mg PO Q8H PRN pain #30 tabs 11/25/22 lidocaine 5 % topical patch 1 patch topical DAILY #15 ea 11/25/22 (Lidoderm) cefpodoxime 200 mg tablet 200 mg PO BID 10 days #20 tabs 12/24/22 ibuprofen 600 mg tablet 600 mg PO Q8H PRN fever or pain 12/24/22 #14 tabs polyethylene glycol 3350 17 17 g PO DAILY PRN constipation 12/24/22 gram/dose oral powder (Miralax) #119 grams <RAMONE Seo - Last Filed: 12/24/22 13:11> Allergies/adverse reactions: Allergies Allergy/AdvReac Type Severity Reaction Status Date / Time ondansetron [From ZOFRAN] Allergy Unknown per H&P Verified 11/25/22 12:19 sumatriptan [From IMITREX] Allergy Unknown RASH FROM Verified 11/25/22 12:19 TABLET NOT INJECTION promethazine [From PHENERGAN] AdvReac Severe DYSTONIA Verified 11/25/22 12:19 <RAMONE Seo - Last Filed: 12/24/22 13:11> Review of Systems Review of Systems: Constitutional: No Fever, No Chills, No Fatigue, No Malaise ENT/Mouth: No Ear Pain, No Nasal Congestion, No sore throat, No Rhinorrhea, No Swallowing Difficulty Cardiovascular: No Chest Pain, No SOB Respiratory: No Cough, No Sputum, No Dyspnea Gastrointestinal: No Nausea, No Vomiting, No Diarrhea, No Constipation, No Abdominal pain Genitourinary: No irregular bleeding, + Dysuria, No Urinary Frequency, No Hematuria, No Urinary Incontinence/retention, + Flank Pain, No Urinary Flow Changes, No Hesitancy Musculoskeletal: No joint pain, No Myalgias, No Joint Swelling Skin: No Skin Lesions, No rash Neuro: No Weakness, No Numbness, No Dizziness, No Headache <RAMONE Adam - Last Filed: 12/24/22 18:09> Yes all other systems are reviewed and are negative <RAMONE Adam - Last Filed: 12/24/22 18:09> Constitutional: Constitutional: Reports as per HPI <RAMONE Adam - Last Filed: 12/24/22 18:09> [facility] Past Medical History Attestation statement: The following information was validated with the patient. <RAMONE Adam - Last Filed: 12/24/22 18:09> Medical History: Medical History History of secondary hyperparathyroidism Hypercalciuria Hyperparathyroidism Hypothyroidism Vitamin D deficiency <RAMONE Seo - Last Filed: 12/24/22 13:11> Surgical History: Surgical History H/O bilateral salpingo-oophorectomy H/O left breast biopsy H/O: hysterectomy History of appendectomy History of bilateral tubal ligation S/P gastric bypass <RAMONE Seo - Last Filed: 12/24/22 13:11> Family History Family History: Family History Mother Uterine cancer Father No problems noted. 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 Sexual orientation: Straight/Heterosexual Gender identity: Female <RAMONE Seo Last Filed: 12/24/22 13:11> Physical Exam ED Vital Signs: Vital Signs - 24 hr 12/24/22 13:10 12/24/22 17:32 Temperature 97.8 F Pulse Rate 80 76 Respiratory Rate 18 16 Blood Pressure 125/86 125/84 Pulse Oximetry 100 100 Oxygen Delivery Method Room Air Room Air BMI result Body Mass Index 29.1 <RAMONE Seo - Last Filed: 12/24/22 13:11> Vital Signs - 24 hr 12/24/22 13:10 12/24/22 17:32 Temperature 97.8 F Pulse Rate 80 76 Respiratory Rate 18 16 Blood Pressure 125/86 125/84 Pulse Oximetry 100 100 Oxygen Delivery Method Room Air Room Air BMI result Body Mass Index 29.1 <RAMONE Adam - Last Filed: 12/24/22 18:09> Const General: cooperative, healthy appearing and no acute distress <RAMONE Adam - Last Filed: 12/24/22 18:09> Orientation/consciousness: patient oriented x3 <RAMONE Adam - Last Filed: 12/24/22 18:09> Limitations: no limitations <RAMONE Adam - Last Filed: 12/24/22 18:09> HENMT Head: Yes normal to inspection and Yes atraumatic <RAMONE Adam - Last Filed: 12/24/22 18:09> Ears: hearing grossly normal bilaterally <RAMONE Adam - Last Filed: 12/24/22 18:09> General nose exam: Normal external nose present <RAMONE Adam - Last Filed: 12/24/22 18:09> Face and sinus: Yes normal facial exam <RAMONE dAam - Last Filed: 12/24/22 18:09> Eyes General: appearance normal, both eyes and all related structures <RAMONE Adam - Last Filed: 12/24/22 18:09> EOM: EOMs intact bilaterally <RAMONE Adam - Last Filed: 12/24/22 18:09> Neck Neck: Yes normal visual inspection and Yes no meningeal signs <RAMONE Adam - Last Filed: 12/24/22 18:09> Resp Effort & Inspection: normal respiratory effort and no respiratory distress <Diamond Rendon PA - Last Filed: 12/24/22 18:09> Auscultation: clear to auscultation bilaterally <Diamond Rendon PA - Last Filed: 12/24/22 18:09> Cardio Rate: regular rate <Diamond Rendon PA - Last Filed: 12/24/22 18:09> Heart sounds: S1 normal heart sound present and S2 normal heart sound present <Diamond Rendon PA - Last Filed: 12/24/22 18:09> GI Inspection: Yes normal to inspection <Diamond Rendon PA - Last Filed: 12/24/22 18:09> Palpation (GI): Soft to palpation, nontender, no guarding and not rigid <Diamond Rendon PA - Last Filed: 12/24/22 18:09> General: Yes CVA tenderness on the left <Diamond Rendon PA - Last Filed: 12/24/22 18:09> Back/Spine/Pelvis Back: CVA tenderness <Diamond Rendon PA - Last Filed: 12/24/22 18:09> Skin Rashes: no rashes <Diamond Rendon PA - Last Filed: 12/24/22 18:09> Wounds: no wounds <Diamond Rendon PA - Last Filed: 12/24/22 18:09> Neuro General: patient oriented x3, tone normal and no meningeal signs <Diamond Rendon PA - Last Filed: 12/24/22 18:09> Gait exam (Neuro): Normal gait present <Diamond Rendon PA - Last Filed: 12/24/22 18:09> Extrem General: Yes normal to inspection <Diamond Rendon PA - Last Filed: 12/24/22 18:09> Course Course Course Narrative: This is an RME: Additional HPI, ROS, PE not included below will be deferred to primary provider. 57-year-old female presents with intermittent severe sharp left-sided flank pain, tells me this feels like the time she had a kidney stone. Tells me she is very uncomfortable reports 10/10 pain Exam benign Plan labs, urine, imaging <Noman Johnston PA - Last Filed: 12/24/22 13:11> This is an RME: Additional HPI, ROS, PE not included below will be deferred to primary provider. 57-year-old female presents with intermittent severe sharp left-sided flank pain, tells me this feels like the time she had a kidney stone. Tells me she is very uncomfortable reports 10/10 pain Exam benign Plan labs, urine, imaging -1736--no leukocytosis. Labs otherwise unremarkable -UA infected with moderate leuk esterase and wbc's CT abdomen pelvis wo IV con IMPRESSION: Limited study as described. ? Some small renal calculi seen bilaterally. No evidence of ureteral stone or obstruction. ? The bowel pattern appears nonobstructing. No free fluid. Vnth-[id number] colonic stool. ? Other findings are as described above.? ? Fleischner guidelines were followed. > concern for possibly passed stone versus pyelonephritis. Results discussed with patient including worrisome signs and symptoms and strict return precautions, and when to return to the emergency department. They verbalized understanding and feel safe for discharge at this time. <RAMONE Adam - Last Filed: 12/24/22 18:09> Medications Administered Discontinued Medications Generic Name Dose Route Start Last Admin Trade Name Freq PRN Reason Stop Dose Admin Ibuprofen 800 mg 12/24/22 17:56 12/24/22 18:05 Ibuprofen 800 Mg Tablet PO 12/24/22 17:57 800 mg ONCE ONE Administration <RAMONE Seo - Last Filed: 12/24/22 13:11> Medications Administered Discontinued Medications Generic Name Dose Route Start Last Admin Trade Name Freq PRN Reason Stop Dose Admin Ibuprofen 800 mg 12/24/22 17:56 12/24/22 18:05 Ibuprofen 800 Mg Tablet PO 12/24/22 17:57 800 mg ONCE ONE Administration <RAMNOE Adam - Last Filed: 12/24/22 18:09> Medical Decision Making Medical Decision Making MDM Narrative: 57-year-old female with a past medical history of hypothyroid, vitamin-D deficiency, presenting to the ED complaining of intermittent left flank pain radiating to abdomen with associated dysuria and dark/or odorous urine x 3 days. On exam vital signs stable, NAD, nontoxic appearing, abdomen soft/nontender, + left CVAT noted. Concern for renal stone vs pyelonephritis vs UTI. Lower suspicion for appendicitis/diverticulitis or pancreatitis/cholecystitis/lithiasis Plan: Labs, UA, CT AP Please refer to course for remaining clinical decision making, interpretation of labs/imaging results, and discussions with consultants and/or family members. <RAMONE Adam - Last Filed: 12/24/22 18:09> Differential Diagnosis Differential Diagnoses: The differential diagnosis associated with the presentation includes <RAMONE Adam - Last Filed: 12/24/22 18:09> As above <RAMONE Adam - Last Filed: 12/24/22 18:09> Admission/Observation Consideration of admission/observation: Escalation of care including admission/observation considered <RAMONE Adam - Last Filed: 12/24/22 18:09> Lab Data MDM Lab Attestation statement: I reviewed the patient's lab results. <RAMONE Adam - Last Filed: 12/24/22 18:09> Result Diagrams: 12/24/22 13:31 12/24/22 13:31 <RAMONE Seo - Last Filed: 12/24/22 13:11> Labs: Lab Results 12/24/22 12/24/22 12/24/22 Range/Units 13:28 13:31 13:31 WBC 9.1 (4.8-10.8) X10*3/uL RBC 5.29 (4.20-5.50) X10*6/uL Hgb 13.5 (12.0-16.0) g/dl Hct 42.4 (37.0-47.0) % MCV 80.2 (80.0-98.0) fL MCH 25.5 L (27.0-33.0) pg MCHC 31.8 (31.0-35.0) g/dl RDW 15.8 (11.0-16.0) % Plt Count 372 (160-400) X10*3/uL MPV 7.7 L (9.4-12.3) fL Immature Gran % (Auto) 0.1 (0.0-0.4) % Neut % (Auto) 56.5 (45-73) % Lymph % (Auto) 31.4 (20-40) % [place] % (Auto) 8.1 (2-11) % Eos % (Auto) 3.2 (0-4) % Baso % (Auto) 0.7 (0-2) % Lymph # (Auto) 2.9 (1.2-4.9) X10*3/uL [place] # (Auto) 0.7 (0.1-1.2) X10*3/uL Eos # (Auto) 0.3 (0.0-0.4) X10*3/uL Baso # (Auto) 0.1 (0.0-0.2) X10*3/uL Abs Immat Gran (auto) 0.01 (0.00-0.03) X10*3/uL Absolute Neuts (auto) 5.1 (2.0-8.3) x10*3/uL Absolute Nucleated RBC 0.000 (0.0-0.012) X10*3/uL Nucleated RBC % (auto) 0.0 (0.0-0.2) /100WBC Sodium 141 (135-145) mmol/L Potassium 3.6 (3.3-5.1) mmol/L Chloride 107 (96-108) mmol/L Carbon Dioxide 26 (22-29) mmol/L Anion Gap 12 (12-20) BUN 15 (9-16) mg/dL Creatinine 0.85 (0.5-1.4) mg/dL Estim Creat Clear Calc 76.9 Estimated GFR > 60 Random Glucose 110 (60-115) mg/dL Calcium 9.0 (8.4-10.2) mg/dL Magnesium 2.2 (1.6-2.6) mg/dL Total Bilirubin 0.7 (0.0-1.0) mg/dL AST 17 (5-31) U/L ALT 14 (0-31) U/L Alkaline Phosphatase 140 H (39-117) U/L Total Protein 7.1 (6.5-8.0) g/dL Albumin 4.0 (3.5-5.0) g/dL Beta HCG, Quant < 2 mIU/mL Urine Color Dark Yellow Urine Appearance Cloudy Urine pH 8.0 (5.0-9.0) Ur Specific [place] 1.020 (1.005-1.025) Urine Protein Trace (Neg-Trace) mg/dL Urine Glucose (UA) Negative (Negative) mg/dL Urine Ketones Trace (Negative) mg/dL Urine Blood Negative (Negative) Urine Nitrite Negative (Negative) Ur Leukocyte Esterase Moderate (2+) H (Negative) Urine RBC 0-2 (0-2) /HPF Urine WBC 11-20 H (0-5) /HPF Ur Squamous Epith Cells 0-2 (0-2) /HPF Urine Bacteria None Seen (None Seen) Hyaline Casts 0-2 (0-2) /LPF <RAMONE Seo - Last Filed: 12/24/22 13:11> Lab Results 12/24/22 12/24/22 12/24/22 Range/Units 13:28 13:31 13:31 WBC 9.1 (4.8-10.8) X10*3/uL RBC 5.29 (4.20-5.50) X10*6/uL Hgb 13.5 (12.0-16.0) g/dl Hct 42.4 (37.0-47.0) % MCV 80.2 (80.0-98.0) fL MCH 25.5 L (27.0-33.0) pg MCHC 31.8 (31.0-35.0) g/dl RDW 15.8 (11.0-16.0) % Plt Count 372 (160-400) X10*3/uL MPV 7.7 L (9.4-12.3) fL Immature Gran % (Auto) 0.1 (0.0-0.4) % Neut % (Auto) 56.5 (45-73) % Lymph % (Auto) 31.4 (20-40) % [place] % (Auto) 8.1 (2-11) % Eos % (Auto) 3.2 (0-4) % Baso % (Auto) 0.7 (0-2) % Lymph # (Auto) 2.9 (1.2-4.9) X10*3/uL [place] # (Auto) 0.7 (0.1-1.2) X10*3/uL Eos # (Auto) 0.3 (0.0-0.4) X10*3/uL Baso # (Auto) 0.1 (0.0-0.2) X10*3/uL Abs Immat Gran (auto) 0.01 (0.00-0.03) X10*3/uL Absolute Neuts (auto) 5.1 (2.0-8.3) x10*3/uL Absolute Nucleated RBC 0.000 (0.0-0.012) X10*3/uL Nucleated RBC % (auto) 0.0 (0.0-0.2) /100WBC Sodium 141 (135-145) mmol/L Potassium 3.6 (3.3-5.1) mmol/L Chloride 107 (96-108) mmol/L Carbon Dioxide 26 (22-29) mmol/L Anion Gap 12 (12-20) BUN 15 (9-16) mg/dL Creatinine 0.85 (0.5-1.4) mg/dL Estim Creat Clear Calc 76.9 Estimated GFR > 60 Random Glucose 110 (60-115) mg/dL Calcium 9.0 (8.4-10.2) mg/dL Magnesium 2.2 (1.6-2.6) mg/dL Total Bilirubin 0.7 (0.0-1.0) mg/dL AST 17 (5-31) U/L ALT 14 (0-31) U/L Alkaline Phosphatase 140 H (39-117) U/L Total Protein 7.1 (6.5-8.0) g/dL Albumin 4.0 (3.5-5.0) g/dL Beta HCG, Quant < 2 mIU/mL Urine Color Dark Yellow Urine Appearance Cloudy Urine pH 8.0 (5.0-9.0) Ur Specific [place] 1.020 (1.005-1.025) Urine Protein Trace (Neg-Trace) mg/dL Urine Glucose (UA) Negative (Negative) mg/dL Urine Ketones Trace (Negative) mg/dL Urine Blood Negative (Negative) Urine Nitrite Negative (Negative) Ur Leukocyte Esterase Moderate (2+) H (Negative) Urine RBC 0-2 (0-2) /HPF Urine WBC 11-20 H (0-5) /HPF Ur Squamous Epith Cells 0-2 (0-2) /HPF Urine Bacteria None Seen (None Seen) Hyaline Casts 0-2 (0-2) /LPF <RAMONE Adam - Last Filed: 12/24/22 18:09> Radiology Impression Discussion of test interpretation with radiology: I have reviewed the radiologist's reading. <RAMONE Adam - Last Filed: 12/24/22 18:09> External Record Review External record reviewed: Inpatient record, Office record, Outpatient record, Prior outpatient labs, Prior outpatient radiology, Primary care record and Outside ED record <RAMONE Adam - Last Filed: 12/24/22 18:09> Discharge Plan Discharge Clinical Impression: Pyelonephritis <RAMONE Seo - Last Filed: 12/24/22 13:11> Patient Disposition: Home, Self-Care <RAMONE Seo - Last Filed: 12/24/22 13:11> Instructions: Kidney Infection (ED) <RAMONE Seo - Last Filed: 12/24/22 13:11> Additional Instructions: Your urine is infected. Due to your back pain were concerned your kidneys infected Your blood work is otherwise reassuring. CT scan shows stones in both of her kidneys which are nonobstructing. You also are constipated MiraLax will help passage of stool. Cefpodoxime is an antibiotic please take as prescribed Please follow-up with her doctor and Urology as needed If symptoms persist or worsen, pain becomes unbearable, you have fever, difficulty or inability to pee, persistent nausea or vomiting return to the ED <RAMONE Seo - Last Filed: 12/24/22 13:11> Prescriptions: New cefpodoxime 200 mg tablet 200 mg PO BID 10 Days Qty: 20 0RF Rx Instructions: must administer with a meal/food polyethylene glycol 3350 [Miralax] 17 gram/dose powder 17 g PO DAILY PRN (Reason: constipation) Qty: 119 0RF ibuprofen 600 mg tablet 600 mg PO Q8H PRN (Reason: fever or pain) Qty: 14 0RF No Action cyanocobalamin (vitamin B-12) 1,000 mcg capsule 1,000 mcg PO DAILY gabapentin 100 mg capsule 100 mg PO TID Qty: 270 0RF cholecalciferol (vitamin D3) 50 mcg (2,000 unit) capsule 2,000 unit PO DAILY cyclobenzaprine 10 mg tablet 10 mg PO TID PRN (Reason: muscle spasm) Qty: 10 0RF lidocaine [Lidoderm] 5 % adhesive patch,medicated 1 patch topical DAILY Qty: 15 0RF Rx Instructions: leave on most painful area for up to 12 hrs cyclobenzaprine 10 mg tablet 10 mg PO TID PRN (Reason: muscle spasm) Qty: 15 0RF ibuprofen 600 mg tablet 600 mg PO Q8H PRN (Reason: pain) Qty: 30 0RF clonazepam 1 mg tablet 1 mg PO BEDTIME Rx Instructions: administer 30 minutes before bedtime bupropion HCl 150 mg tablet extended release 24 hr 150 mg PO QAM pantoprazole 40 mg tablet,delayed release (DR/EC) 40 mg PO DAILY diltiazem HCl 180 mg capsule,extended release 24hr 180 mg PO DAILY Flovent HFA 110 mcg/actuation HFA aerosol inhaler 1 puff PO BID hydroxyzine pamoate 50 mg capsule 50 mg PO TID PRN (Reason: anxiety) levothyroxine 25 mcg capsule 25 mcg PO DAILY losartan 50 mg tablet 50 mg PO DAILY oxybutynin chloride 10 mg tablet extended release 24hr 10 mg PO DAILY 30 Days Qty: 30 1RF estradiol 0.01 % (0.1 mg/gram) cream See Rx Instructions vaginal 3XW 30 Days Qty: 42.5 0RF Rx Instructions: vaginally 3 times a week; pea sized amount to urethra 3 times a week <RAMONE Seo - Last Filed: 12/24/22 13:11> Referrals: [facility] [Provider Group] Nupur Weir NP [Primary Care Provider] - <RAMONE Seo - Last Filed: 12/24/22 13:11>
[2022-12-24 13:37] LABS: Basophils Absolute Auto 0.1 X10*3/uL (0.0-0.2); Basophils Percent Auto 0.7 % (0-2); Eosinophils Absolute Auto 0.3 X10*3/uL (0.0-0.4); Eosinophils Percent Auto 3.2 % (0-4); Hematocrit 42.4 % (37.0-47.0); Hemoglobin 13.5 g/dl (12.0-16.0); Imm Gran Abs Auto 0.01 X10*3/uL (0.00-0.03); Imm Gran Pct Auto 0.1 % (0.0-0.4); Lymphocytes Absolute Auto 2.9 X10*3/uL (1.2-4.9); Lymphocytes Percent Auto 31.4 % (20-40); MANUAL DIFF FLAG NO; Mean Corpuscular HGB Conc 31.8 g/dl (31.0-35.0); Mean Corpuscular Hemoglobin 25.5 pg (27.0-33.0); Mean Corpuscular Volume 80.2 fL (80.0-98.0); Mean Platelet Volume 7.7 fL (9.4-12.3); Monocytes Absolute Auto 0.7 X10*3/uL (0.1-1.2); Monocytes Percent Auto 8.1 % (2-11); Neutrophils Absolute Auto 5.1 x10*3/uL (2.0-8.3); Neutrophils Percent Auto 56.5 % (45-73); Platelet Count 372 X10*3/uL (160-400); Red Blood Count 5.29 X10*6/uL (4.20-5.50); Red Cell Distribution Width 15.8 % (11.0-16.0); White Blood Count 9.1 X10*3/uL (4.8-10.8)
[2022-12-24 13:38] LABS: Appearance Urine Cloudy; Color Urine Dark Yellow; Glucose Urine UA Negative (Negative); Leukocyte Esterase Urine Moderate (2+) (Negative); Nitrite Urine Negative (Negative); UMIC TRIGGER UACC YES; Urine Blood Negative (Negative); Urine Ketones Trace mg/dL (Negative); Urine Protein Trace mg/dL (Neg-Trace)
[2022-12-24 13:40] LABS: Bacteria Urine None Seen (None Seen); Hyaline Casts Urine 0-2 /LPF (0-2); RBC Urine 0-2 /HPF (0-2); Squamous Epithelial Cell Urine 0-2 /HPF (0-2); UACC Culture Trigger YES
[2022-12-24 14:12] LABS: Alanine Aminotransferase 14 U/L (0-31); Alkaline Phosphatase 140 U/L (39-117); Anion Gap 12 (12-20); Aspartate Amino Transferase 17 U/L (5-31); Bilirubin Total 0.7 mg/dL (0.0-1.0); Blood Urea Nitrogen 15 mg/dL (9-16); Carbon Dioxide 26 mmol/L (22-29); Chloride 107 mmol/L (96-108); Creatinine Clr Calc Pharmacy 76.9; Estimated Glomerular Filt Rate > 60; Glucose Random 110 mg/dL (60-115); Magnesium 2.2 mg/dL (1.6-2.6); Potassium 3.6 mmol/L (3.3-5.1); Sodium 141 mmol/L (135-145); Total Protein 7.1 g/dL (6.5-8.0)
[2022-12-24 14:14] LABS: HCG Quantitative < 2 mIU/mL
[2022-12-24 17:32] VITALS: BP 125/84; PULSE 76; RESP 16; O2SAT 100
[2022-12-24] MEDS: Ibuprofen 800 MG TABLET PO (18:05)
== END 2022-12-24 18:12 | disposition home or self-care (01) ==
PROVIDERS: Physician Assistant; Emergency Provider Student in an Organized Health Care Education/Training Program; PCP Nurse Practitioner Primary Care
DX: N12 Tubulo-interstitial nephritis, not specified as acute or chronic (principal); N20.0 Calculus of kidney; Z87.442 Personal history of urinary calculi; Z79.899 Other long term (current) drug therapy; Z90.79 Acquired absence of other genital organ(s); Z98.84 Bariatric surgery status; Z90.710 Acquired absence of both cervix and uterus
CPT/HCPCS: 36415; 74176; 80053; 81001; 83735; 84702; 85025; 87086; 99284

== ENCOUNTER 2022-12-29 09:30 | Emergency (ER) | payer MEDICAID, SELFPAY ==
--- NOTE | ~2022-12-29 | CT_ITS ---
EXAMINATION: CT ABDOMEN AND PELVIS WITHOUT CONTRAST CLINICAL INFORMATION: Left flank pain, hematuria. COMPARISON: 12/24/2022 CT scan of the abdomen and pelvis. TECHNIQUE: Multidetector volumetric imaging was performed from the superior aspect of the liver through the pubic symphysis. Sagittal and coronal reformatted images were obtained on the technologist's workstation. Lack of intravenous and oral contrast limits visceral evaluation. This CT examination was performed using dose optimization techniques as appropriate, variously including the following: *Automated exposure control *Adjustment of mA and/or kV according to patient size (this includes techniques or standardized protocols for targeted exams where dose is matched to indication/reason for exam; i.e. extremities or head) *Use of iterative reconstruction technique DLP: 559 mGy-cm FINDINGS: LUNG BASES: The visualized lung bases are unremarkable. LIVER, GALLBLADDER, AND BILIARY TREE: No hepatic abnormality. Status post cholecystectomy. Associated mild biliary ductal dilatation without associated abnormality. PANCREAS: Unremarkable. SPLEEN: Unremarkable. ADRENAL GLANDS: Unremarkable. KIDNEYS AND URETERS: Nonobstructing adrenal calculi bilaterally. No hydroureteronephrosis bilaterally. BLADDER: Unremarkable. GASTROINTESTINAL TRACT: Gastric postsurgical changes are seen without abnormality. The small bowel is unremarkable. Surgical clips are seen in the right lower quadrant. No evidence for acute appendicitis. The colon shows mild to moderate stool without focal abnormality. The rectum is unremarkable. ABDOMINAL WALL: No significant hernia is appreciated. LYMPH NODES: Unremarkable. VASCULAR: Unremarkable. PELVIC VISCERA: Status post hysterectomy. No adnexal abnormality. OSSEOUS STRUCTURES: L5-S1 severe degenerative disc disease and mild to moderate bilateral neural foraminal narrowing. Mild bilateral facet arthropathy at L4-5 and L5-S1. No acute fracture. CT/CT abdomen pelvis wo IV con IMPRESSION: 1. Nonobstructing intrarenal calculi bilaterally. No hydroureteronephrosis. 2. Mild to moderate colonic stool burden without focal abnormality. 3. L5-S1 severe degenerative disc disease and mild to moderate bilateral neural foraminal narrowing.
[2022-12-29 09:42] VITALS: BP 125/85; PULSE 84; RESP 18; TEMP 36.7; O2SAT 97; BMI 29.1
[2022-12-29 10:37] LABS: Hematocrit 40.2 % (37.0-47.0); Mean Corpuscular HGB Conc 32.3 g/dl (31.0-35.0); Mean Corpuscular Hemoglobin 25.6 pg (27.0-33.0); Mean Corpuscular Volume 79.3 fL (80.0-98.0); Mean Platelet Volume 8.1 fL (9.4-12.3); Platelet Count 383 X10*3/uL (160-400); Red Blood Count 5.07 X10*6/uL (4.20-5.50); Red Cell Distribution Width 15.9 % (11.0-16.0); White Blood Count 5.8 X10*3/uL (4.8-10.8)
[2022-12-29 10:39] LABS: Appearance Urine Cloudy; Color Urine Dark Yellow; Glucose Urine UA Negative (Negative); Leukocyte Esterase Urine Moderate (2+) (Negative); Nitrite Urine Negative (Negative); Specific Gravity - Urine 1.025 (1.005-1.025); UMIC TRIGGER UACC YES; Urine Blood Negative (Negative); Urine Ketones Trace mg/dL (Negative); Urine Protein Trace mg/dL (Neg-Trace)
[2022-12-29 10:47] LABS: Bacteria Urine None Seen (None Seen); Hyaline Casts Urine 0-2 /LPF (0-2); RBC Urine 0-2 /HPF (0-2); UACC Culture Trigger YES; WBC Urine 21-50 /HPF (0-5)
[2022-12-29 10:55] LABS: Anion Gap 11 (12-20); Blood Urea Nitrogen 13 mg/dL (9-16); Calcium 9.2 mg/dL (8.4-10.2); Carbon Dioxide 30 mmol/L (22-29); Chloride 105 mmol/L (96-108); Creatinine Clr Calc Pharmacy 76.9; Estimated Glomerular Filt Rate > 60; Glucose Random 111 mg/dL (60-115); Potassium 3.5 mmol/L (3.3-5.1); Sodium 142 mmol/L (135-145)
[2022-12-29 13:11] VITALS: BP 119/83; PULSE 82; RESP 16; TEMP 36.9; O2SAT 99
--- NOTE | 2022-12-29 13:15 | PC.NURSE ---
Pt on stretcher, airway open and patent, no obvious signs of distress, no difficulty/labored breathing. Pt a&ox4, skin normal for ethnicity, warm, and dry. Lung sounds clr and equal bilaterally. Heart sounds normal. Abdomen soft, pt has tenderness on left flank. No edema noted. Pt reporting left flank pain for the past 3 days, pain rated 10/10.
--- NOTE | 2022-12-29 14:05 | ED_ITS ---
HPI - General Adult General Chief complaint: Abdominal Pain Stated complaint: Kidney stone Time Seen by Provider: 12/29/22 12:40 Source: patient Mode of arrival: ambulatory Limitations: no limitations History of Present Illness HPI narrative: 57-year-old female came in for evaluation of left flank pain and dysuria odorous urine. No fever, no chills, patient was seen 5 days ago diagnosed with UTI/pyelonephritis patient was sent home on cefpodoxime patient reported with no improvement of her symptoms. Related Data Home Medications Medication Instructions Recorded Confirmed cyanocobalamin (vitamin B-12) 1,000 mcg PO DAILY 07/05/20 06/18/22 1,000 mcg capsule bupropion HCl 150 mg 24 hr tablet, 150 mg PO QAM 11/24/21 06/18/22 extended release clonazepam 1 mg tablet 1 mg PO BEDTIME 11/24/21 06/18/22 diltiazem HCl 180 mg 180 mg PO DAILY 11/24/21 06/18/22 capsule,extended release 24 hr fluticasone propionate 110 1 puff PO BID 11/24/21 06/18/22 mcg/actuation HFA aerosol inhaler (Flovent HFA) hydroxyzine pamoate 50 mg capsule 50 mg PO TID PRN anxiety 11/24/21 06/18/22 pantoprazole 40 mg tablet,delayed 40 mg PO DAILY 11/24/21 06/18/22 release cholecalciferol (vitamin D3) 50 2,000 unit PO DAILY 11/26/21 06/18/22 mcg (2,000 unit) capsule levothyroxine 25 mcg capsule 25 mcg PO DAILY 06/18/22 06/18/22 losartan 50 mg tablet 50 mg PO DAILY blood pressure 11/24/22 Previous Rx's Medication Instructions Recorded gabapentin 100 mg capsule 100 mg PO TID #270 caps 04/15/21 cyclobenzaprine 10 mg tablet 10 mg PO TID PRN muscle spasm #10 11/18/22 tabs estradiol 0.01% (0.1 mg/gram) See Rx Instructions vaginal 3XW 30 11/24/22 vaginal cream days #42.5 grams oxybutynin chloride 10 mg 10 mg PO DAILY 30 days #30 tabs 11/24/22 tablet,extended release 24 hr cyclobenzaprine 10 mg tablet 10 mg PO TID PRN muscle spasm #15 11/25/22 tabs ibuprofen 600 mg tablet 600 mg PO Q8H PRN pain #30 tabs 11/25/22 lidocaine 5 % topical patch 1 patch topical DAILY #15 ea 11/25/22 (Lidoderm) cefpodoxime 200 mg tablet 200 mg PO BID 10 days #20 tabs 12/24/22 ibuprofen 600 mg tablet 600 mg PO Q8H PRN fever or pain 12/24/22 #14 tabs polyethylene glycol 3350 17 17 g PO DAILY PRN constipation 12/24/22 gram/dose oral powder (Miralax) #119 grams levofloxacin 750 mg tablet 750 mg PO DAILY #7 tabs 12/29/22 Allergies Allergy/AdvReac Type Severity Reaction Status Date / Time ondansetron [From ZOFRAN] Allergy Unknown per H&P Verified 11/25/22 12:19 sumatriptan [From IMITREX] Allergy Unknown RASH FROM Verified 11/25/22 12:19 TABLET NOT INJECTION promethazine [From PHENERGAN] AdvReac Severe DYSTONIA Verified 11/25/22 12:19 Review of Systems Review of Systems: All other systems are reviewed and are negative Constitutional: Reports as per HPI and Reports no additional constitutional complaints Eyes: Reports as per HPI and Reports no additional eye complaints Reports system reviewed and no additional complaints, except as documented Cardiovascular: Reports as per HPI and Reports no additional cardiovascular complaints Respiratory: Reports as per HPI and Reports no additional respiratory complaints Gastrointestinal: Reports as per HPI and Reports no additional gastrointestinal complaints Genitourinary: Reports no additional female genitourinary complaints Musculoskeletal: Reports no additional musculoskeletal complaints Skin/Breast: Reports system reviewed and no additional complaints, except as d ocu Psychiatric: Reports no additional psychiatric complaints Endocrine: Reports no additional endocrine complaints Hematologic/Lymphatic: Reports no additional hematologic/lymphatic complaints Allergic/Immunologic: Reports no additional allergic/immunologic complaints Reports system reviewed and no additional complaints, except as documented and Reports Abnormal speech present [facility] Past Medical History Medical History History of secondary hyperparathyroidism Hypercalciuria Hyperparathyroidism Hypothyroidism Vitamin D deficiency Surgical History H/O bilateral salpingo-oophorectomy H/O left breast biopsy H/O: hysterectomy History of appendectomy History of bilateral tubal ligation S/P gastric bypass Family History Family History Mother Uterine cancer Father No problems noted. 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 Blood pressure normal. Heart rate normal. Respiration rate normal. Temperature normal. Oxygen saturation normal. Appearance: Alert. Oriented X3. No acute distress. Head: Normal external exam. Normocephalic. Atraumatic. No Conrad signs noted. No raccoon eyes noted Eyes: PERRLA. EOMI. Conjunctiva and sclera normal. Eyelids normal. ENT: TM's Normal. Pharynx normal. Uvula midline. Moist mucous membranes. No trismus noted. No drooling noted. No muffled voice noted. Neck: Normal inspection. Neck supple. FROM. No adenopathy. Thyroid Normal. No meningeal signs. No neck mass noted. CVS: Normal heart rate and rhythm. Heart sound normal. No murmurs noted. Pulses normal throughout. Respiratory: No respiratory distress. Painless inspiration. Breath sounds normal. No wheezes/rales/rhonchi noted. Chest nontender. No accessory muscle usage noted or decreased air movement noted. Abdomen: Soft and nontender. Bowel sounds normal in all 4 quadrants. No distention noted. No organomegaly noted. No visible injury noted. Back: No CVA tenderness. Full range of motion noted. Skin: Skin warm and dry. Normal skin color. Normal skin turgor. No ortiz hes/lesions/lacerations noted. Extremities: No lower extremity edema. Extremities exhibit normal range of motion. Extremities nontender. Neuro: Oriented X 3. Cranial nerve exam: II-XII are grossly intact No motor deficit. No sensory deficit. Reflexes normal. Course Course Course Narrative: Left pyelonephritis, patient on day 5 of cefpodoxime was no full improvement will start the patient on Levaquin and encouraged to drink plenty of fluids. CT showing non obstructing uropathy. Medications Administered Discontinued Medications Generic Name Dose Route Start Last Admin Trade Name Freq PRN Reason Stop Dose Admin Levofloxacin 750 mg in 150 mls @ 100 mls/hr 12/29/22 14:07 12/29/22 15:20 Levaquin IV 12/29/22 15:36 100 mls/hr ONCE ONE Administration Medical Decision Making Differential Diagnosis Differential Diagnoses: The differential diagnosis associated with the presentation includes (Pyelonephritis, kidney stone, diverticulitis, colitis, electrolyte abnormalities, severe anemia, myofascial flank pain.) Lab Data MDM Lab Attestation statement: I reviewed the patient's lab results. 12/29/22 10:23 12/29/22 10:23 Labs: Lab Results 12/29/22 12/29/22 12/29/22 Range/Units 10:23 10:23 10:28 WBC 5.8 (4.8-10.8) X10*3/uL RBC 5.07 (4.20-5.50) X10*6/uL Hgb 13.0 (12.0-16.0) g/dl Hct 40.2 (37.0-47.0) % MCV 79.3 L (80.0-98.0) fL MCH 25.6 L (27.0-33.0) pg MCHC 32.3 (31.0-35.0) g/dl RDW 15.9 (11.0-16.0) % Plt Count 383 (160-400) X10*3/uL MPV 8.1 L (9.4-12.3) fL Absolute Nucleated RBC 0.000 (0.0-0.012) X10*3/uL Nucleated RBC % (auto) 0.0 (0.0-0.2) /100WBC Sodium 142 (135-145) mmol/L Potassium 3.5 (3.3-5.1) mmol/L Chloride 105 (96-108) mmol/L Carbon Dioxide 30 H (22-29) mmol/L Anion Gap 11 L (12-20) BUN 13 (9-16) mg/dL Creatinine 0.85 (0.5-1.4) mg/dL Estim Creat Clear Calc 76.9 Estimated GFR > 60 Random Glucose 111 (60-115) mg/dL Lactic Acid (0.5-2.0) mmol/L Calcium 9.2 (8.4-10.2) mg/dL Urine Color Dark Yellow Urine Appearance Cloudy Urine pH 7.0 (5.0-9.0) Ur Specific Franklin 1.025 (1.005-1.025) Urine Protein Trace (Neg-Trace) mg/dL Urine Glucose (UA) Negative (Negative) mg/dL Urine Ketones Trace (Negative) mg/dL Urine Blood Negative (Negative) Urine Nitrite Negative (Negative) Ur Leukocyte Esterase Moderate (2+) H (Negative) Urine RBC 0-2 (0-2) /HPF Urine WBC 21-50 H (0-5) /HPF Ur Squamous Epith Cells 3-5 (0-2) /HPF Urine Bacteria None Seen (None Seen) Hyaline Casts 0-2 (0-2) /LPF 12/29/22 Range/Units 15:06 WBC (4.8-10.8) X10*3/uL RBC (4.20-5.50) X10*6/uL Hgb (12.0-16.0) g/dl Hct (37.0-47.0) % MCV (80.0-98.0) fL MCH (27.0-33.0) pg MCHC (31.0-35.0) g/dl RDW (11.0-16.0) % Plt Count (160-400) X10*3/uL MPV (9.4-12.3) fL Absolute Nucleated RBC (0.0-0.012) X10*3/uL Nucleated RBC % (auto) (0.0-0.2) /100WBC Sodium (135-145) mmol/L Potassium (3.3-5.1) mmol/L Chloride (96-108) mmol/L Carbon Dioxide (22-29) mmol/L Anion Gap (12-20) BUN (9-16) mg/dL Creatinine (0.5-1.4) mg/dL Estim Creat Clear Calc Estimated GFR Random Glucose (60-115) mg/dL Lactic Acid 1.0 (0.5-2.0) mmol/L Calcium (8.4-10.2) mg/dL Urine Color Urine Appearance Urine pH (5.0-9.0) Ur Specific Franklin (1.005-1.025) Urine Protein (Neg-Trace) mg/dL Urine Glucose (UA) (Negative) mg/dL Urine Ketones (Negative) mg/dL Urine Blood (Negative) Urine Nitrite (Negative) Ur Leukocyte Esterase (Negative) Urine RBC (0-2) /HPF Urine WBC (0-5) /HPF Ur Squamous Epith Cells (0-2) /HPF Urine Bacteria (None Seen) Hyaline Casts (0-2) /LPF Independent Interpretation I performed an independent interpretation of an: CT Scan (Abdomen and pelvis: No acute intra-abdominal pathology.) Radiology Impression Discussion of test interpretation with radiology: I have reviewed the r adiologist's reading. Discharge Plan Discharge Clinical Impression: Pyelonephritis Patient Disposition: Home, Self-Care Instructions: Kidney Infection (ED) Prescriptions: New levofloxacin 750 mg tablet 750 mg PO DAILY Qty: 7 0RF No Action cyanocobalamin (vitamin B-12) 1,000 mcg capsule 1,000 mcg PO DAILY gabapentin 100 mg capsule 100 mg PO TID Qty: 270 0RF cholecalciferol (vitamin D3) 50 mcg (2,000 unit) capsule 2,000 unit PO DAILY cyclobenzaprine 10 mg tablet 10 mg PO TID PRN (Reason: muscle spasm) Qty: 10 0RF lidocaine [Lidoderm] 5 % adhesive patch,medicated 1 patch topical DAILY Qty: 15 0RF Rx Instructions: leave on most painful area for up to 12 hrs cyclobenzaprine 10 mg tablet 10 mg PO TID PRN (Reason: muscle spasm) Qty: 15 0RF ibuprofen 600 mg tablet 600 mg PO Q8H PRN (Reason: pain) Qty: 30 0RF cefpodoxime 200 mg tablet 200 mg PO BID 10 Days Qty: 20 0RF Rx Instructions: must administer with a meal/food polyethylene glycol 3350 [Miralax] 17 gram/dose powder 17 g PO DAILY PRN (Reason: constipation) Qty: 119 0RF ibuprofen 600 mg tablet 600 mg PO Q8H PRN (Reason: fever or pain) Qty: 14 0RF clonazepam 1 mg tablet 1 mg PO BEDTIME Rx Instructions: administer 30 minutes before bedtime bupropion HCl 150 mg tablet extended release 24 hr 150 mg PO QAM pantoprazole 40 mg tablet,delayed release (DR/EC) 40 mg PO DAILY diltiazem HCl 180 mg capsule,extended release 24hr 180 mg PO DAILY Flovent HFA 110 mcg/actuation HFA aerosol inhaler 1 puff PO BID hydroxyzine pamoate 50 mg capsule 50 mg PO TID PRN (Reason: anxiety) levothyroxine 25 mcg capsule 25 mcg PO DAILY losartan 50 mg tablet 50 mg PO DAILY oxybutynin chloride 10 mg tablet extended release 24hr 10 mg PO DAILY 30 Days Qty: 30 1RF estradiol 0.01 % (0.1 mg/gram) cream See Rx Instructions vaginal 3XW 30 Days Qty: 42.5 0RF Rx Instructions: vaginally 3 times a week; pea sized amount to urethra 3 times a week Referrals: Nupur Weir NP [Primary Care Provider] -
--- NOTE | 2022-12-29 14:07 | MHC.CM.ED ---
Received notification from Demetria from registration that patient is requesting to complete a HCP. Met with patient. HCP completed, signed and witnessed. Original given to patient. Copy placed in chart. Continue to monitor for d/c needs.
[2022-12-29 14:25] VITALS: BP 119/75; PULSE 73; RESP 18; O2SAT 100
[2022-12-29 15:17] VITALS: BP 126/82; PULSE 71; RESP 17; TEMP 36.9; O2SAT 100
[2022-12-29] MEDS: levoFLOXacin/D5W 750 MG/150 ML PIGGYBACK 100 MG IV (15:20)
--- NOTE | 2022-12-29 15:38 | PC.NURSE ---
pt reporting 10/10 left flank pain, abx started per MAR (late start on abx due to delay in getting blood cultures)
[2022-12-29] MEDS: Morphine Sulfate 2 MG/ML CARTRIDGE 1 MG IVPUSH (16:25)
[2022-12-29 16:57] VITALS: BP 125/80; PULSE 74; RESP 16; TEMP 36.7; O2SAT 97
--- NOTE | 2022-12-29 16:58 | MHC.EDTECH ---
THIS PCT ASSUMED CARE OF PT AT 1645 ,VITALS SIGN TAKEN ,PT WAITING FOR DISCHARGED PAPER WORK .
== END 2022-12-29 17:34 | disposition home or self-care (01) ==
PROVIDERS: Emergency Provider Emergency Medicine; PCP Nurse Practitioner Primary Care
DX: N12 Tubulo-interstitial nephritis, not specified as acute or chronic (principal); R31.9 Hematuria, unspecified; R10.9 Unspecified abdominal pain; Z79.899 Other long term (current) drug therapy
CPT/HCPCS: 36415; 74176; 80048; 81001; 83605; 85027; 87040; 87086; 96365; 96375; 99284; 99285; J1956; J2270

== ENCOUNTER 2023-01-02 09:46 | Outpatient (REF) | payer MEDICAID, SELFPAY ==
[2023-01-02 10:40] LABS: Creatinine, mg/dL 59.76
[2023-01-02 11:14] LABS: Alanine Aminotransferase 14 U/L (0-31); Albumin Level 3.9 g/dL (3.5-5.0); Alkaline Phosphatase 114 U/L (39-117); Anion Gap 13 (12-20); Aspartate Amino Transferase 19 U/L (5-31); Bilirubin Total 0.8 mg/dL (0.0-1.0); Blood Urea Nitrogen 10 mg/dL (9-16); Calcium 9.1 mg/dL (8.4-10.2); Carbon Dioxide 25 mmol/L (22-29); Chloride 105 mmol/L (96-108); Estimated Glomerular Filt Rate > 60; Glucose Random 111 mg/dL (60-115); Phosphorus 3.5 mg/dL (2.7-4.5); Potassium 3.8 mmol/L (3.3-5.1); Sodium 139 mmol/L (135-145); Total Protein 6.7 g/dL (6.5-8.0)
[2023-01-02 11:31] LABS: Free T4 (Free Thyroxine) 1.07 ng/dL (0.71-1.85); Thyroid Stimulating Hormone 0.89 uIU/mL (0.32-4.0)
[2023-01-02 13:11] LABS: Creatinine, 24Hr Urine 1.9 G/Day (1.0-2.0); Total Volume 24 Hour Urine 3110 mL
[2023-01-04 15:24] LABS: Calcium (PTHI) 9.4 mg/dL (8.6-10.4); PTHI 49 pg/mL (16-77)
[2023-01-05 15:28] LABS: Calcium, 24 Hr Urine 199 mg/24 h; Calcium/Creatinine Ratio 103 mg/g creat (30-275); Creatinine 24Hr Urine 1.93 g/24 h (0.50-2.15)
== END 2023-01-02 09:47 | disposition home or self-care (01) ==
LOC: HO.LAB 09:46
PROVIDERS: Visit Provider Internal Medicine
DX: R82.994 Hypercalciuria (principal); E03.9 Hypothyroidism, unspecified; E55.9 Vitamin D deficiency, unspecified
CPT/HCPCS: 36415; 80053; 82306; 82340; 82570; 83970; 84100; 84439; 84443

== ENCOUNTER → 2023-01-08 08:28 | Outpatient (BNVA) | payer MEDICAID, SELFPAY | PROVIDERS: PCP Nurse Practitioner Primary Care; Visit Provider Nurse Practitioner Family | DX: N12 Tubulo-interstitial nephritis, not specified as acute or chronic (principal); R30.0 Dysuria; R10.9 Unspecified abdominal pain | CPT/HCPCS: 51798; 99212 ==

== ENCOUNTER → 2023-01-13 09:12 | Outpatient (BNVA) | payer MEDICAID, SELFPAY | PROVIDERS: PCP Nurse Practitioner Primary Care; Visit Provider Internal Medicine | DX: R82.994 Hypercalciuria (principal); M81.0 Age-related osteoporosis without current pathological fracture; E03.9 Hypothyroidism, unspecified; E55.9 Vitamin D deficiency, unspecified; E04.9 Nontoxic goiter, unspecified; Z98.84 Bariatric surgery status; Z79.899 Other long term (current) drug therapy | CPT/HCPCS: 99212 ==

== ENCOUNTER → 2023-01-18 09:11 | Outpatient (BNVA) | payer MEDICAID, SELFPAY | PROVIDERS: PCP Nurse Practitioner Primary Care; Visit Provider Nurse Practitioner Family ==

== ENCOUNTER 2023-01-18 09:22 | Emergency (ER) | payer MEDICAID, SELFPAY ==
[2023-01-18 09:39] VITALS: BP 102/68; PULSE 76; RESP 20; TEMP 36.8; O2SAT 97; BMI 29.1
[2023-01-18 09:54] LABS: Hematocrit 39.5 % (37.0-47.0); Hemoglobin 12.6 g/dl (12.0-16.0); Mean Corpuscular HGB Conc 31.9 g/dl (31.0-35.0); Mean Corpuscular Hemoglobin 25.5 pg (27.0-33.0); Platelet Count 372 X10*3/uL (160-400); Red Blood Count 4.94 X10*6/uL (4.20-5.50); Red Cell Distribution Width 16.1 % (11.0-16.0); White Blood Count 7.1 X10*3/uL (4.8-10.8)
[2023-01-18 09:59] LABS: Appearance Urine Clear; Color Urine Dark Yellow; Glucose Urine UA Negative (Negative); Leukocyte Esterase Urine Small (1+) (Negative); Nitrite Urine Negative (Negative); PH 7.5 (5.0-9.0); Specific Gravity - Urine <= 1.005 (1.005-1.025); UMIC TRIGGER UACC YES; Urine Blood Negative (Negative); Urine Ketones Negative (Negative); Urine Protein Negative (Neg-Trace)
[2023-01-18 10:05] LABS: Anion Gap 14 (12-20); Blood Urea Nitrogen 7 mg/dL (9-16); Calcium 9.2 mg/dL (8.4-10.2); Carbon Dioxide 24 mmol/L (22-29); Chloride 107 mmol/L (96-108); Creatinine Clr Calc Pharmacy 81.7; Estimated Glomerular Filt Rate > 60; Glucose Random 87 mg/dL (60-115); Potassium 3.8 mmol/L (3.3-5.1); Sodium 141 mmol/L (135-145)
[2023-01-18 10:20] LABS: Bacteria Urine None Seen (None Seen); Hyaline Casts Urine 0-2 /LPF (0-2); RBC Urine 0-2 /HPF (0-2); Squamous Epithelial Cell Urine 0-2 /HPF (0-2); UACC Culture Trigger YES; WBC Urine 0-5 /HPF (0-5)
--- NOTE | 2023-01-18 10:50 | ED.GENADULT ---
HPI - General Adult General Chief complaint: Back Pain/Injury Stated complaint: kidney inflamation back pain Time Seen by Provider: 01/18/23 10:49 Source: patient Mode of arrival: ambulatory Limitations: no limitations History of Present Illness HPI narrative: Patient is a 57 year old assigned female at with a history of pyelonephritis and kidney stones presenting to the emergency department today with persistent back pain. Patient states that she was seen here for this previously and was told then it was a UTI / kidney infection. Patient states that she has been on multiple antibiotics and followed up with urology who will be seeing her again at the end of this month. Patient denies any dizziness, lightheadedness, abdominal pain, nausea, vomiting, fever, chills, blurry vision, double vision, loss of vision, chest pain, difficulty breathing, shortness of breath, night sweats, pain with urination, increased urinary frequency, increased urinary urgency, blood in her urine or stool, syncope or a near syncopal episode, recent trauma or falls, bowel incontinence, bladder incontinence, bowel retention, bladder retention, or any other complaints at this time. Onset (ago): week(s) (3) Location: back Severity: mild Severity scale (1-10): 2 Relieving factors: none Exacerbating factors: none Associated symptoms: denies other symptoms Treatments prior to arrival: none Related Data Home Medications Medication Instructions Recorded Confirmed cyanocobalamin (vitamin B-12) 1,000 mcg PO DAILY 07/05/20 01/13/23 1,000 mcg capsule bupropion HCl 150 mg 24 hr tablet, 150 mg PO QAM 11/24/21 01/13/23 extended release clonazepam 1 mg tablet 1 mg PO BEDTIME 11/24/21 01/13/23 diltiazem HCl 180 mg 180 mg PO DAILY 11/24/21 01/13/23 capsule,extended release 24 hr fluticasone propionate 110 1 puff PO BID 11/24/21 01/13/23 mcg/actuation HFA aerosol inhaler (Flovent HFA) hydroxyzine pamoate 50 mg capsule 50 mg PO TID PRN anxiety 11/24/21 01/13/23 pantoprazole 40 mg tablet,delayed 40 mg PO DAILY 11/24/21 01/13/23 release cholecalciferol (vitamin D3) 50 2,000 unit PO DAILY 11/26/21 01/13/23 mcg (2,000 unit) capsule losartan 50 mg tablet 50 mg PO DAILY blood pressure 11/24/22 01/13/23 levothyroxine 25 mcg tablet 25 mcg PO DAILY 01/08/23 01/13/23 riboflavin (vitamin B2) 100 mg 200 mg PO BID 01/08/23 01/13/23 tablet (Vitamin B-2) topiramate 50 mg tablet 50 mg PO QID 01/08/23 01/13/23 Previous Rx's Medication Instructions Recorded gabapentin 100 mg capsule 100 mg PO TID #270 caps 04/15/21 estradiol 0.01% (0.1 mg/gram) See Rx Instructions vaginal 3XW 30 11/24/22 vaginal cream days #42.5 grams oxybutynin chloride 10 mg 10 mg PO DAILY 30 days #30 tabs 11/24/22 tablet,extended release 24 hr cyclobenzaprine 10 mg tablet 10 mg PO TID PRN muscle spasm #15 11/25/22 tabs lidocaine 5 % topical patch 1 patch topical DAILY #15 ea 11/25/22 (Lidoderm) levofloxacin 500 mg tablet 500 mg PO DAILY 7 days #7 tabs 01/08/23 hydrochlorothiazide 12.5 mg tablet 12.5 mg PO DAILY 90 days #90 tabs 01/13/23 Allergies Allergy/AdvReac Type Severity Reaction Status Date / Time ondansetron [From ZOFRAN] Allergy Unknown per H&P Verified 01/13/23 09:19 sumatriptan [From IMITREX] Allergy Unknown RASH FROM Verified 01/13/23 09:19 TABLET NOT INJECTION promethazine [From PHENERGAN] AdvReac Severe DYSTONIA Verified 01/13/23 09:19 Review of Systems Constitutional: Constitutional: Reports no additional constitutional complaints, Denies chills, Denies fever(s) and Denies night sweats Eyes: Eyes: Reports no additional eye complaints, Denies blurry vision, Denies change in vision, Denies diplopia, Denies eye discharge, Denies loss of vision and Denies eye pain ENT: Denies dizziness Cardiovascular: Cardiovascular: Reports no additional cardiovascular complaints, Denies chest pain, Denies lightheadedness, Denies Loss of Consciousness and Denies dyspnea Respiratory: Respiratory: Reports no additional respiratory complaints and Denies dyspnea Gastrointestinal: Gastrointestinal: Reports no additional gastrointestinal complaints, Denies abdominal pain, Denies melena, Denies hematochezia, Denies change in bowel habits and Denies change in stool character Genitourinary: Genitourinary: Denies hematuria, Denies urinary frequency, Denies dysuria, Denies urinary incontinence, Denies urinary hesitancy and Denies urinary urgency Musculoskeletal: Musculoskeletal: Reports no additional musculoskeletal complaints, Reports back pain, Denies numbness and Denies tingling Neurologic: Denies dizziness, Denies loss of vision, Denies numbness and Denies tingling Psychiatric: Psychiatric: Reports no additional psychiatric complaints Endocrine: Endocrine: Reports no additional endocrine complaints Hematologic/Lymphatic: Hematologic/Lymphatic: Reports no additional hematologic/lymphatic complaints Allergic/Immunologic: Allergic/Immunologic: Reports no additional allergic/immunologic complaints PMFSH Past Medical History Attestation statement: The following information was validated with the patient. Source: old records reviewed and nursing notes reviewed Medical History Goiter History of secondary hyperparathyroidism Hypercalciuria Hyperparathyroidism Hypothyroidism Vitamin D deficiency Surgical History H/O bilateral salpingo-oophorectomy H/O left breast biopsy H/O: hysterectomy History of appendectomy History of bilateral tubal ligation S/P gastric bypass Family History Family History Mother Uterine cancer Father No problems noted. 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 Sexual orientation: Straight/Heterosexual Gender identity: Female Physical Exam ED Vital Signs: Vital Signs - 24 hr 01/18/23 09:39 Temperature 98.3 F Pulse Rate 76 Respiratory Rate 20 Blood Pressure 102/68 Pulse Oximetry 97 Oxygen Delivery Method Room Air BMI result Body Mass Index 29.1 Const General: cooperative, no acute distress, alert and awake Nutritional Appearance: well nourished Orientation/consciousness: patient oriented x3 Limitations: no limitations HENMT Head: Yes normal to inspection and Yes atraumatic Ears: hearing grossly normal bilaterally and external ears normal General nose exam: Normal external nose present, no nasal discharge noted and no epistaxis Face and sinus: Yes normal facial exam, No abrasion and No laceration Mouth: Normal oral and palatal mucosa present, no drooling and no muffled voice Eyes General: appearance normal, both eyes and all related structures Periorbital: periorbital findings normal Eyelids: Yes eyelids normal Conjunctivae: conjunctivae normal Pupils: Equal, round and reactive pupils present EOM: EOMs intact bilaterally Neck Neck: Yes normal visual inspection, Yes full ROM and Yes no lymphadenopathy Chest Chest palpation & inspection: normal inspection of the chest Resp Effort & Inspection: normal respiratory effort and able to speak in complete sentences Auscultation: clear to auscultation bilaterally Cardio Rate: regular rate Rhythm: regular rhythm GI Inspection: Yes normal to inspection Palpation (GI): Soft to palpation, not firm, nontender and no guarding General: Yes no CVA tenderness Back/Spine/Pelvis Back: no CVA tenderness Neuro General: patient oriented x3 and moves all extremities Cranial nerves: Yes Equal, round and reactive pupils present Cognition (Neuro): normal cognition Motor exam (neuro): 5/5 motor strength present throughout Sensory Exam: Normal double simultaneous stimulation for sensation Coordination: [id number] test normal Extrem General: Yes normal to inspection, Yes full ROM and Yes capillary refill normal Psych Appearance: grossly normal Mental Status: mental status grossly normal Affect: normal affect Attitude: cooperative Thought process: Normal thought process present Thought content: Normal thought content present Insight: Good insight present (Psych) Medical Decision Making Medical Decision Making MDM Narrative: Patient is a 57 year old assigned female at with a history of pyelonephritis, UTI, and kidney stones presenting to the emergency department today with persistent back pain. Patient's physical exam was unremarkable. Patient's blood work was unremarkable. Patient's urine showed no acute process. Patient's CT of the abdomen/pelvis from her previous visit on 12/29/2022 showed no acute process but did show bilateral kidney stones. I explained my physical exam findings as well as all test results to the patient. I answered all questions asked by the patient. I stressed the importance of the patient taking her medication as prescribed. I stressed the importance of the patient following up with her primary care provider and her urologist. I stressed the importance of the patient returning to the emergency department immediately if her symptoms were to worsen or if she were to develop any dizziness, shortness of breath, difficulty breathing, chest pain, blurry vision, loss of vision, nausea, vomiting, abdominal pain, fever, chills, back pain, or any other complaints. Patient verbalized agreement and understanding with this treatment plan and discharge. Differential Diagnosis Differential Diagnoses: The differential diagnosis associated with the presentation includes flank pain Lab Data MDM Lab Attestation statement: I reviewed the patient's lab results. 01/18/23 09:46 01/18/23 09:46 Labs: Lab Results 01/18/23 01/18/23 01/18/23 Range/Units 09:46 09:46 09:46 WBC 7.1 (4.8-10.8) X10*3/uL RBC 4.94 (4.20-5.50) X10*6/uL Hgb 12.6 (12.0-16.0) g/dl Hct 39.5 (37.0-47.0) % MCV 80.0 (80.0-98.0) fL MCH 25.5 L (27.0-33.0) pg MCHC 31.9 (31.0-35.0) g/dl RDW 16.1 H (11.0-16.0) % Plt Count 372 (160-400) X10*3/uL MPV 8.0 L (9.4-12.3) fL Absolute Nucleated RBC 0.000 (0.0-0.012) X10*3/uL Nucleated RBC % (auto) 0.0 (0.0-0.2) /100WBC Sodium 141 (135-145) mmol/L Potassium 3.8 (3.3-5.1) mmol/L Chloride 107 (96-108) mmol/L Carbon Dioxide 24 (22-29) mmol/L Anion Gap 14 (12-20) BUN 7 L (9-16) mg/dL Creatinine 0.80 (0.5-1.4) mg/dL Estim Creat Clear Calc 81.7 Estimated GFR > 60 Random Glucose 87 (60-115) mg/dL Calcium 9.2 (8.4-10.2) mg/dL Urine Color Dark Yellow Urine Appearance Clear Urine pH 7.5 (5.0-9.0) Ur Specific [place] <= 1.005 (1.005-1.025) Urine Protein Negative (Neg-Trace) mg/dL Urine Glucose (UA) Negative (Negative) mg/dL Urine Ketones Negative (Negative) mg/dL Urine Blood Negative (Negative) Urine Nitrite Negative (Negative) Ur Leukocyte Esterase Small (1+) H (Negative) Urine RBC 0-2 (0-2) /HPF Urine WBC 0-5 (0-5) /HPF Ur Squamous Epith Cells 0-2 (0-2) /HPF Urine Bacteria None Seen (None Seen) Hyaline Casts 0-2 (0-2) /LPF Discharge Plan Discharge Clinical Impression: Flank pain Patient Disposition: Home, Self-Care Instructions: Flank Pain (ED) Additional Instructions: Follow up with your primary care provider and your urologist. Return to the emergency department immediately if your symptoms worsen or if you develop any dizziness, shortness of breath, difficulty breathing, chest pain, blurry vision, loss of vision, nausea, vomiting, abdominal pain, fever, chills, back pain, or any other complaints. Prescriptions: No Action cyanocobalamin (vitamin B-12) 1,000 mcg capsule 1,000 mcg PO DAILY gabapentin 100 mg capsule 100 mg PO TID Qty: 270 0RF cholecalciferol (vitamin D3) 50 mcg (2,000 unit) capsule 2,000 unit PO DAILY hydrochlorothiazide 12.5 mg tablet 12.5 mg PO DAILY 90 Days Qty: 90 3RF lidocaine [Lidoderm] 5 % adhesive patch,medicated 1 patch topical DAILY Qty: 15 0RF Rx Instructions: leave on most painful area for up to 12 hrs cyclobenzaprine 10 mg tablet 10 mg PO TID PRN (Reason: muscle spasm) Qty: 15 0RF clonazepam 1 mg tablet 1 mg PO BEDTIME Rx Instructions: administer 30 minutes before bedtime bupropion HCl 150 mg tablet extended release 24 hr 150 mg PO QAM pantoprazole 40 mg tablet,delayed release (DR/EC) 40 mg PO DAILY diltiazem HCl 180 mg capsule,extended release 24hr 180 mg PO DAILY Flovent HFA 110 mcg/actuation HFA aerosol inhaler 1 puff PO BID hydroxyzine pamoate 50 mg capsule 50 mg PO TID PRN (Reason: anxiety) losartan 50 mg tablet 50 mg PO DAILY oxybutynin chloride 10 mg tablet extended release 24hr 10 mg PO DAILY 30 Days Qty: 30 1RF estradiol 0.01 % (0.1 mg/gram) cream See Rx Instructions vaginal 3XW 30 Days Qty: 42.5 0RF Rx Instructions: vaginally 3 times a week; pea sized amount to urethra 3 times a week levothyroxine 25 mcg tablet 25 mcg PO DAILY topiramate 50 mg tablet 50 mg PO QID riboflavin (vitamin B2) [Vitamin B-2] 100 mg tablet 200 mg PO BID levofloxacin 500 mg tablet 500 mg PO DAILY 7 Days Qty: 7 0RF Referrals: Nupur Weir PATIENT SERVICE ASSOCIATE [Primary Care Provider] - Interventions: ED Discharge Assessment Last Done: 01/18/23 11:06 Discharge Date/Time: 01/18/23 11:06 Print Language: Wolof
== END 2023-01-18 11:06 | disposition home or self-care (01) ==
PROVIDERS: Emergency Provider Emergency Medicine; PCP Nurse Practitioner Primary Care
DX: R10.9 Unspecified abdominal pain (principal)
CPT/HCPCS: 36415; 80048; 81001; 85027; 87086; 99282; 99283

== ENCOUNTER → 2023-01-26 10:53 | Outpatient (BNVA) | payer MEDICAID, SELFPAY | PROVIDERS: PCP Nurse Practitioner Primary Care; Visit Provider Nurse Practitioner Family | DX: N30.10 Interstitial cystitis (chronic) without hematuria (principal); N20.0 Calculus of kidney; R30.0 Dysuria; R32 Unspecified urinary incontinence | CPT/HCPCS: 51798; 99212 ==

== ENCOUNTER 2023-02-11 10:11 | Outpatient (REF) | payer MEDICAID, SELFPAY ==
--- NOTE | ~2023-02-11 | US_ITS ---
EXAMINATION: US RETROPERITONEAL COMPLETE (RENAL) CLINICAL INFORMATION: Interstitial cystitis (chronic) without hematuria. COMPARISON: CT abdomen and pelvis 12/29/2022. Bladder ultrasound 12/07/2022. Ultrasound abdomen complete 12/07/2022. TECHNIQUE: Real-time imaging of the kidneys and bladder. FINDINGS: RIGHT KIDNEY: 11.3 x 3.5 x 5.2 cm (SAG x AP x TRV). The kidney is normal in size, contour, and echogenicity. Renal cortical thickness is normal. There is a 3 mm echogenic focus present in the mid right kidney consistent with a nonobstructing calculus. No focal parenchymal lesions or hydronephrosis. LEFT KIDNEY: 11.4 x 4.9 x 5.4 cm (SAG x AP x TRV). The kidney is normal in size, contour, and echogenicity. Renal cortical thickness is normal. No calculi or focal parenchymal lesions. No hydronephrosis. BLADDER: Well distended and normal. Bilateral ureteral jets are demonstrated. Prevoid bladder volume is 202 mL. Postvoid bladder volume is 11 mL. US/US retroperitoneal comp IMPRESSION: Nonobstructing 3 mm right renal calculus.
== END 2023-02-11 10:12 | disposition home or self-care (01) ==
LOC: HO.US 10:11
PROVIDERS: PCP Nurse Practitioner Primary Care; Visit Provider Nurse Practitioner Family
DX: N30.10 Interstitial cystitis (chronic) without hematuria (principal); N20.0 Calculus of kidney
CPT/HCPCS: 76770

== ENCOUNTER 2023-03-03 18:04 | Emergency (ER) | payer MEDICAID, SELFPAY ==
[2023-03-03 18:18] VITALS: BP 110/73; PULSE 84; RESP 18; TEMP 37.1; O2SAT 99; BMI 29.1
--- NOTE | 2023-03-03 18:20 | ED.GENADULT ---
HPI - General Adult General Chief complaint: General Medical Stated complaint: 3 day L sided back pain. Time Seen by Provider: 03/03/23 19:35 Source: patient Mode of arrival: ambulatory Limitations: no limitations History of Present Illness HPI narrative: Patient is a 58-year-old female who presents emergency department for evaluation of left lateral abdomen/back pain x3 days. Additionally reporting dark colored urine with dysuria. denies frequency, urgency, hesitancy, or hematuria. Denies fevers, chills, nausea, vomiting, diarrhea, constipation. Denies any chest pain or shortness of breath. Denies history of similar pain. Related Data Home Medications Medication Instructions Recorded Confirmed cyanocobalamin (vitamin B-12) 1,000 mcg PO DAILY 07/05/20 01/26/23 1,000 mcg capsule bupropion HCl 150 mg 24 hr tablet, 150 mg PO QAM 11/24/21 01/26/23 extended release clonazepam 1 mg tablet 1 mg PO BEDTIME 11/24/21 01/26/23 diltiazem HCl 180 mg 180 mg PO DAILY 11/24/21 01/26/23 capsule,extended release 24 hr fluticasone propionate 110 1 puff PO BID 11/24/21 01/26/23 mcg/actuation HFA aerosol inhaler (Flovent HFA) hydroxyzine pamoate 50 mg capsule 50 mg PO TID PRN anxiety 11/24/21 01/26/23 pantoprazole 40 mg tablet,delayed 40 mg PO DAILY 11/24/21 01/26/23 release cholecalciferol (vitamin D3) 50 2,000 unit PO DAILY 11/26/21 01/26/23 mcg (2,000 unit) capsule losartan 50 mg tablet 50 mg PO DAILY blood pressure 11/24/22 01/26/23 levothyroxine 25 mcg tablet 25 mcg PO DAILY 01/08/23 01/26/23 riboflavin (vitamin B2) 100 mg 200 mg PO BID 01/08/23 01/26/23 tablet (Vitamin B-2) topiramate 50 mg tablet 50 mg PO QID 01/08/23 01/26/23 Previous Rx's Medication Instructions Recorded gabapentin 100 mg capsule 100 mg PO TID #270 caps 04/15/21 estradiol 0.01% (0.1 mg/gram) See Rx Instructions vaginal 3XW 30 11/24/22 vaginal cream days #42.5 grams cyclobenzaprine 10 mg tablet 10 mg PO TID PRN muscle spasm #15 11/25/22 tabs lidocaine 5 % topical patch 1 patch topical DAILY #15 ea 11/25/22 (Lidoderm) hydrochlorothiazide 12.5 mg tablet 12.5 mg PO DAILY 90 days #90 tabs 01/13/23 nitrofurantoin macrocrystal 100 mg 100 mg PO Q12H 14 days #28 caps 01/26/23 capsule cefuroxime axetil 250 mg tablet 250 mg PO BID #9 tabs 03/03/23 Allergies Allergy/AdvReac Type Severity Reaction Status Date / Time ondansetron [From ZOFRAN] Allergy Unknown per H&P Verified 01/26/23 20:31 sumatriptan [From IMITREX] Allergy Unknown RASH FROM Verified 01/26/23 20:31 TABLET NOT INJECTION promethazine [From PHENERGAN] AdvReac Severe DYSTONIA Verified 01/26/23 20:31 Review of Systems Review of Systems: Constitutional : No Weight loss, No Fever, No Chills ENT/Mouth :? No sore throat, No Rhinorrhea Eyes: No Swelling, No Redness Cardiovascular : No Chest Pain, No SOB, No Edema Respiratory : No Cough, No Sputum, No Wheezing Gastrointestinal : No Nausea, no Vomiting, no Diarrhea, positive abdominal pain, No Hematochezia, No Melena Genitourinary : No Dysuria, No Urinary Frequency, No Hematuria, No Urgency? Musculoskeletal : No joint pain, No Myalgias, No Joint Swelling Skin : No Skin Lesions, No rash Neuro : No Weakness, No Numbness, No Dizziness, No Headache Psych : No Anxiety/Panic, No Depression Heme/Lymph: No Bruising, No Lymphadenopathy Endocrine : No Polyuria, No Polydipsia Yes all other systems are reviewed and are negative [facility] Past Medical History Attestation statement: The following information was validated with the patient. Source: old records reviewed Medical History Goiter History of secondary hyperparathyroidism Hypercalciuria Hyperparathyroidism Hypothyroidism Vitamin D deficiency Surgical History H/O bilateral salpingo-oophorectomy H/O left breast biopsy H/O: hysterectomy History of appendectomy History of bilateral tubal ligation S/P gastric bypass Family History Family History Mother Uterine cancer Father No problems noted. 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 No acute distress.?Normal affect. Eyes: Pupils equal, round and reactive to light.? ENT: Pharynx normal.?? Neck: Normal inspection.? Neck supple.?? CVS: Heart sounds normal. Normal heart rate and rhythm.? Pulses normal.?? Respiratory: No respiratory distress.? Lung sounds clear to auscultation bilaterally?? Abdomen: Soft with left lower and upper quadrant tenderness upon palpation. Normoactive bowel sounds. ? Skin: Skin warm and dry.? Normal skin color.? Extremities: No lower extremity edema.? Neuro: Moves all extremities spontaneously. Sensation intact bilaterally. . No focal neuro deficits. Ambulates with normal steady gait. Course Course Course Narrative: RME- 58 year old female presents for evaluation of left flank pain with painful urination for the last 3 days. Also complains of dark urine. Plan for labs and UA Reevaluation(s) Reevaluation #1: CBC reveals no leukocytosis, BMP is overall unremarkable. Urinalysis revealing 1+ leukocyte esterase, no WBC, nitrate, bacteria. She had had mild improvement with ketorolac. Given persistent ABD tenderness, no will obtain CT abdomen and pelvis for further evaluation. Reevaluation #2: CT of the abdomen and pelvis reveals postsurgical gastric bypass changes, post cholecystectomy with dilated CBD seen on previous exams, small nonobstructing right renal stone. Otherwise no acute abnormality. She is symptomatic for urinary infection and has history of interstitial cystitis, will treat at this time as urinary tract infection, culture sent. Advised outpatient follow-up with primary care provider. Reviewed worrisome signs and symptoms that would warrant re-evaluation emergency department. All questions answered. Stable for discharge. Time: 23:48 Medications Administered Discontinued Medications Generic Name Dose Route Start Last Admin Trade Name Freq PRN Reason Stop Dose Admin Iohexol 100 ml 03/03/23 22:22 03/03/23 22:24 Iohexol 350 Mg/Ml 100 Ml Infus..Btl IV 03/03/23 22:23 85 ml ONCE ONE Administration Ketorolac Tromethamine 30 mg 03/03/23 20:50 03/03/23 20:54 Ketorolac Tromethamine 30 Mg/Ml Vial IM 03/03/23 20:51 30 mg ONCE ONE Administration Medical Decision Making Medical Decision Making [facility] Narrative: Patient is a 58-year-old female with past medical history of nephrolithiasis, interstitial cystitis, osteoporosis, hypothyroidism, bilateral salpingo-oophorectomy presenting to emergency department for evaluation of left-sided abdominal pain and reported dark urine without mild dysuria. Abdominal examination is prominent for left upper and lower quadrant tenderness upon palpation, and left CVA tenderness. Will obtain CBC to evaluate for leukocytosis/ anemia, CMP and lipase to evaluate for abnormal electrolytes /abnormal renal function/ abnormal hepatic/biliary function, and Urinalysis. Will trial ketorolac for pain Differential Diagnosis Differential Diagnoses: The differential diagnosis associated with the presentation includes (Appendicitis, diverticulitis, nephrolithiasis, pyelonephritis, urinary tract infection) Admission/Observation Consideration of admission/observation: Escalation of care including admission/observation considered (I considered admission for abdominal pain as noted above, please see course for further narrative) Lab Data [facility] Lab Attestation statement: I reviewed the patient's lab results. (Please see course for further narrative) 03/03/23 18:34 03/03/23 18:34 Labs: Lab Results 03/03/23 03/03/23 03/03/23 Range/Units 18:34 18:34 20:45 WBC 9.3 (4.8-10.8) X10*3/uL RBC 4.99 (4.20-5.50) X10*6/uL Hgb 12.8 (12.0-16.0) g/dl Hct 39.7 (37.0-47.0) % MCV 79.6 L (80.0-98.0) fL MCH 25.7 L (27.0-33.0) pg MCHC 32.2 (31.0-35.0) g/dl RDW 15.6 (11.0-16.0) % Plt Count 376 (160-400) X10*3/uL MPV 8.3 L (9.4-12.3) fL Immature Gran % (Auto) 0.2 (0.0-0.4) % Neut % (Auto) 56.3 (45-73) % Lymph % (Auto) 32.6 (20-40) % [place] % (Auto) 8.8 (2-11) % Eos % (Auto) 1.5 (0-4) % Baso % (Auto) 0.6 (0-2) % Lymph # (Auto) 3.0 (1.2-4.9) X10*3/uL [place] # (Auto) 0.8 (0.1-1.2) X10*3/uL Eos # (Auto) 0.1 (0.0-0.4) X10*3/uL Baso # (Auto) 0.1 (0.0-0.2) X10*3/uL Abs Immat Gran (auto) 0.02 (0.00-0.03) X10*3/uL Absolute Neuts (auto) 5.2 (2.0-8.3) x10*3/uL Absolute Nucleated RBC 0.000 (0.0-0.012) X10*3/uL Nucleated RBC % (auto) 0.0 (0.0-0.2) /100WBC Sodium 142 (135-145) mmol/L Potassium 3.2 L (3.3-5.1) mmol/L Chloride 106 (96-108) mmol/L Carbon Dioxide 26 (22-29) mmol/L Anion Gap 13 (12-20) BUN 10 (9-16) mg/dL Creatinine 0.96 (0.5-1.4) mg/dL Estim Creat Clear Calc 67.2 Estimated GFR 60 Random Glucose 110 (60-115) mg/dL Calcium 9.3 (8.4-10.2) mg/dL Total Bilirubin 0.4 (0.0-1.0) mg/dL Direct Bilirubin 0.2 (0.0-0.5) mg/dL AST 19 (5-31) U/L ALT 13 (0-31) U/L Alkaline Phosphatase 156 H (39-117) U/L Total Protein 7.5 (6.5-8.0) g/dL Albumin 4.1 (3.5-5.0) g/dL Lipase 25 (8-78) U/L Urine Color Yellow Urine Appearance Clear Urine pH 7.0 (5.0-9.0) Ur Specific [place] 1.010 (1.005-1.025) Urine Protein Negative (Neg-Trace) mg/dL Urine Glucose (UA) Negative (Negative) mg/dL Urine Ketones Negative (Negative) mg/dL Urine Blood Negative (Negative) Urine Nitrite Negative (Negative) Ur Leukocyte Esterase Small (1+) H (Negative) Urine RBC 0-2 (0-2) /HPF Urine WBC 0-5 (0-5) /HPF Ur Squamous Epith Cells 0-2 (0-2) /HPF Urine Bacteria None Seen (None Seen) Hyaline Casts 0-2 (0-2) /LPF Radiology Impression Discussion of test interpretation with radiology: I have reviewed the radiologist's reading. Radiologist Impression: CT/CT abdomen pelvis w IV con IMPRESSION: Postop changes from gastric bypass. Post cholecystectomy. Dilated common bile duct similar to previous exams. This may be normal postcholecystectomy. Correlation with liver function tests recommended. Small nonobstructing right renal stone.? Independent Historian Clinical information obtained from an independent historian. History obtained from or confirmed by: Spouse (Spouse is present at bed side and confirms history) External Record Review External record reviewed: Outpatient record and Prior outpatient labs Discharge Plan Discharge Clinical Impression: Urinary tract infection Patient Disposition: Home, Self-Care Instructions: Urinary Tract Infection in Women (DC) Additional Instructions: A prescription for antibiotic was sent to your pharmacy, you received the 1st dose while in the emergency department. Please tile picker your prescription from the pharmacy intake tomorrow morning. Return back to emergency department any new or worsening symptoms or concerns. Please follow-up with your primary care provider. Prescriptions: New cefuroxime axetil 250 mg tablet 250 mg PO BID Qty: 9 0RF No Action cyanocobalamin (vitamin B-12) 1,000 mcg capsule 1,000 mcg PO DAILY gabapentin 100 mg capsule 100 mg PO TID Qty: 270 0RF cholecalciferol (vitamin D3) 50 mcg (2,000 unit) capsule 2,000 unit PO DAILY hydrochlorothiazide 12.5 mg tablet 12.5 mg PO DAILY 90 Days Qty: 90 3RF lidocaine [Lidoderm] 5 % adhesive patch,medicated 1 patch topical DAILY Qty: 15 0RF Rx Instructions: leave on most painful area for up to 12 hrs cyclobenzaprine 10 mg tablet 10 mg PO TID PRN (Reason: muscle spasm) Qty: 15 0RF clonazepam 1 mg tablet 1 mg PO BEDTIME Rx Instructions: administer 30 minutes before bedtime bupropion HCl 150 mg tablet extended release 24 hr 150 mg PO QAM pantoprazole 40 mg tablet,delayed release (DR/EC) 40 mg PO DAILY diltiazem HCl 180 mg capsule,extended release 24hr 180 mg PO DAILY Flovent HFA 110 mcg/actuation HFA aerosol inhaler 1 puff PO BID hydroxyzine pamoate 50 mg capsule 50 mg PO TID PRN (Reason: anxiety) losartan 50 mg tablet 50 mg PO DAILY estradiol 0.01 % (0.1 mg/gram) cream See Rx Instructions vaginal 3XW 30 Days Qty: 42.5 0RF Rx Instructions: vaginally 3 times a week; pea sized amount to urethra 3 times a week levothyroxine 25 mcg tablet 25 mcg PO DAILY topiramate 50 mg tablet 50 mg PO QID riboflavin (vitamin B2) [Vitamin B-2] 100 mg tablet 200 mg PO BID nitrofurantoin macrocrystal 100 mg capsule 100 mg PO Q12H 14 Days Qty: 28 0RF Rx Instructions: Start antibiotics 2 days before procedure Referrals: Nupur Weir NP [Primary Care Provider] -
[2023-03-03 18:58] LABS: Anion Gap 13 (12-20); Blood Urea Nitrogen 10 mg/dL (9-16); Calcium 9.3 mg/dL (8.4-10.2); Carbon Dioxide 26 mmol/L (22-29); Chloride 106 mmol/L (96-108); Creatinine Clr Calc Pharmacy 67.2; Estimated Glomerular Filt Rate 60; Glucose Random 110 mg/dL (60-115); Potassium 3.2 mmol/L (3.3-5.1); Sodium 142 mmol/L (135-145)
[2023-03-03 19:00] VITALS: BP 107/73; PULSE 73; RESP 16; TEMP 37; O2SAT 99
[2023-03-03 20:00] VITALS: BP 113/72; PULSE 81; RESP 16; O2SAT 96
[2023-03-03 21:53] VITALS: BP 128/86; PULSE 70; RESP 16; TEMP 36.9; O2SAT 95
[2023-03-03 22:37] LABS: Alanine Aminotransferase 13 U/L (0-31); Albumin Level 4.1 g/dL (3.5-5.0); Alkaline Phosphatase 156 U/L (39-117); Aspartate Amino Transferase 19 U/L (5-31); Bilirubin Direct 0.2 mg/dL (0.0-0.5); Bilirubin Total 0.4 mg/dL (0.0-1.0); Lipase 25 U/L (8-78); Total Protein 7.5 g/dL (6.5-8.0)
== END 2023-03-03 23:59 | disposition home or self-care (01) ==
PROVIDERS: Physician Assistant; Emergency Provider Emergency Medicine Emergency Medical Services; PCP Nurse Practitioner Primary Care
DX: N39.0 Urinary tract infection, site not specified (principal); Z90.710 Acquired absence of both cervix and uterus; Z98.51 Tubal ligation status; Z98.84 Bariatric surgery status; Z90.722 Acquired absence of ovaries, bilateral; Z79.899 Other long term (current) drug therapy
CPT/HCPCS: 36415; 74177; 80048; 80076; 81001; 83690; 85025; 87086; 96372; 99284; J1885; Q9967

== ENCOUNTER 2023-03-07 08:32 | Emergency (ER) | payer MEDICAID, SELFPAY ==
[2023-03-07 08:42] VITALS: BP 104/58; PULSE 81; RESP 18; TEMP 36.6; O2SAT 100; BMI 29.1
[2023-03-07 09:06] VITALS: BP 123/88; PULSE 76; RESP 18; O2SAT 96
--- NOTE | 2023-03-07 09:56 | ED_ITS ---
HPI - General Adult General Chief complaint: General Medical Stated complaint: left side rib pain Time Seen by Provider: 03/07/23 08:52 Source: patient and RN notes reviewed Mode of arrival: ambulatory Limitations: no limitations History of Present Illness HPI narrative: This is a 58-year-old female, with a past medical history of nephrolithiasis, interstitial cystitis, osteoarthritis, hypothyroidism, presenting to the emergency department for evaluation of left rib pain x1 week. Patient states that 1 week ago she woke up and felt pain on her left rib. She states that the pain is constant and does not radiate. She reports that the pain worsens with palpation and with positional changes. Patient denies any fevers or chills. Denies cough, shortness of breath, palpitations, abdominal pain, nausea, vomit ing or diarrhea. She was seen several days ago for a UTI, she has been taking prescribed antibiotic as directed. No other complaints or concerns at this time. MD complaint: Left rib pain Onset (ago): week(s) Radiation: non-radiation Severity: mild Quality: aching Pain Consistency: constant Relieving factors: none Exacerbating factors: none Associated symptoms: denies other symptoms Treatments prior to arrival: none Related Data Home Medications Medication Instructions Recorded Confirmed cyanocobalamin (vitamin B-12) 1,000 mcg PO DAILY 07/05/20 01/26/23 1,000 mcg capsule bupropion HCl 150 mg 24 hr tablet, 150 mg PO QAM 11/24/21 01/26/23 extended release clonazepam 1 mg tablet 1 mg PO BEDTIME 11/24/21 01/26/23 diltiazem HCl 180 mg 180 mg PO DAILY 11/24/21 01/26/23 capsule,extended release 24 hr fluticasone propionate 110 1 puff PO BID 11/24/21 01/26/23 mcg/actuation HFA aerosol inhaler (Flovent HFA) hydroxyzine pamoate 50 mg capsule 50 mg PO TID PRN anxiety 11/24/21 01/26/23 pantoprazole 40 mg tablet,delayed 40 mg PO DAILY 11/24/21 01/26/23 release cholecalciferol (vitamin D3) 50 2,000 unit PO DAILY 11/26/21 01/26/23 mcg (2,000 unit) capsule losartan 50 mg tablet 50 mg PO DAILY blood pressure 11/24/22 01/26/23 levothyroxine 25 mcg tablet 25 mcg PO DAILY 01/08/23 01/26/23 riboflavin (vitamin B2) 100 mg 200 mg PO BID 01/08/23 01/26/23 tablet (Vitamin B-2) topiramate 50 mg tablet 50 mg PO QID 01/08/23 01/26/23 Previous Rx's Medication Instructions Recorded gabapentin 100 mg capsule 100 mg PO TID #270 caps 04/15/21 estradiol 0.01% (0.1 mg/gram) See Rx Instructions vaginal 3XW 30 11/24/22 vaginal cream days #42.5 grams cyclobenzaprine 10 mg tablet 10 mg PO TID PRN muscle spasm #15 11/25/22 tabs lidocaine 5 % topical patch 1 patch topical DAILY #15 ea 11/25/22 (Lidoderm) hydrochlorothiazide 12.5 mg tablet 12.5 mg PO DAILY 90 days #90 tabs 01/13/23 nitrofurantoin macrocrystal 100 mg 100 mg PO Q12H 14 days #28 caps 01/26/23 capsule cefuroxime axetil 250 mg tablet 250 mg PO BID #9 tabs 03/03/23 ibuprofen 600 mg tablet 600 mg PO QID PRN pain #30 tabs 03/07/23 lidocaine 5 % topical patch 1 patch topical DAILY #15 ea 03/07/23 (Lidoderm) Allergies Allergy/AdvReac Type Severity Reaction Status Date / Time ondansetron [From ZOFRAN] Allergy Unknown per H&P Verified 01/26/23 20:31 sumatriptan [From IMITREX] Allergy Unknown RASH FROM Verified 01/26/23 20:31 TABLET NOT INJECTION promethazine [From PHENERGAN] AdvReac Severe DYSTONIA Verified 01/26/23 20:31 Review of Systems Review of Systems: Constitutional: No Weight loss, No Fever, No Chills ENT/Mouth: No Ear Pain, No Nasal Congestion, No Sinus Pain, No Hoarseness, No sore throat, No Rhinorrhea, No Swallowing Difficulty Cardiovascular: No Chest Pain, No SOB Respiratory: No Cough, No Sputum, No Wheezing Gastrointestinal: No Nausea, No Vomiting, No Diarrhea, No Constipation, No Abdominal pain Genitourinary: No Dysuria, No Urinary Frequency, No Hematuria, No Urinary Incontinence/retention, No Urgency, No Flank Pain Musculoskeletal: No joint pain, No Myalgias, No Joint Swelling Skin: No Skin Lesions, No rash Neuro: No Weakness, No Numbness, No Paresthesias Yes all other systems are reviewed and are negative Constitutional: Constitutional: Reports as per [facility] Past Medical History Medical History Goiter History of secondary hyperparathyroidism Hypercalciuria Hyperparathyroidism Hypothyroidism Vitamin D deficiency Surgical History H/O bilateral salpingo-oophorectomy H/O left breast biopsy H/O: hysterectomy History of appendectomy History of bilateral tubal ligation S/P gastric bypass Family History Family History Mother Uterine cancer Father No problems noted. 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 Sexual orientation: Straight/Heterosexual Gender identity: Female Physical Exam ED Vital Signs: Vital Signs - 24 hr 03/07/23 08:42 03/07/23 09:06 Temperature 97.8 F Pulse Rate 81 76 Respiratory Rate 18 18 Blood Pressure 104/58 L 123/88 Pulse Oximetry 100 96 Oxygen Delivery Method Room Air Room Air BMI result Body Mass Index 29.1 Const General: cooperative, comfortable and no acute distress Orientation/consciousness: patient oriented x3 Limitations: no limitations [facility] Head: Yes normal to inspection, Yes normocephalic and Yes atraumatic Ears: hearing grossly normal bilaterally General nose exam: Normal external nose present Face and sinus: Yes normal facial exam Mouth: Normal oral and palatal mucosa present, oropharynx normal and moist mucous membranes Throat: Yes posterior oropharynx normal Eyes General: appearance normal, both eyes and all related structures Eyelids: Yes eyelids normal Conjunctivae: conjunctivae normal Sclerae: sclerae normal Pupils: Equal, round and reactive pupils present EOM: EOMs intact bilaterally Neck Neck: Yes normal visual inspection, Yes full ROM and Yes no lymphadenopathy Lymphatic: no lymphadenopathy noted Chest Other: Left anterior rib with point tenderness to palpation, no crepitus, step-off, or deformity. Chest palpation & inspection: normal inspection of the chest Resp Effort & Inspection: normal respiratory effort and able to speak in complete sentences Auscultation: clear to auscultation bilaterally, no crackles, no rales, no rhonchi and no wheezes Cardio Rate: regular rate Rhythm: regular rhythm Heart sounds: S1 normal heart sound present and S2 normal heart sound present GI Other: No left upper abdominal quadrant tenderness. Inspection: Yes normal to inspection Palpation (GI): Soft to palpation, nontender and no guarding Skin General skin exam: no rashes or lesions noted Trauma: no lacerations or abrasions Wounds: no wounds Neuro General: patient oriented x3 and moves all extremities Cranial nerves: Yes Equal, round and reactive pupils present Extrem General: Yes normal to inspection Right upper extremity: normal to inspection Left upper extremity: normal to inspection Right lower extremity: normal to inspection Left lower extremity: normal to inspection Course Reevaluation(s) Reevaluation #1: No fracture seen on xray. symptoms likely MSK related. will treat conservatively, given return precautions if any new or worsening symptoms occur. Pt remained stable in department. VSS. Stable for d/c. Medical Decision Making Medical Decision Making MDM Narrative: 58-year-old female, with a past medical history of osteopenia, presenting to the emergency department for evaluation of left rib pain x1 week. No trauma or injury, vital signs within normal limits, patient has anterior left rib tenderness to palpation. Lungs clear to auscultation bilaterally. Patient's abdomen is soft nontender, no left upper quadrant tenderness to palpation. Pain worsens with positional changes. Given history of osteoporosis will obtain left rib x-ray with one-view chest for further evaluation. Differential Diagnosis Differential Diagnoses: The differential diagnosis associated with the presentation includes Left rib fracture, pneumothorax, costochondritis Admission/Observation Consideration of admission/observation: Escalation of care including admission/observation considered Patient would have been admitted to the hospital had her work up had any findings where hospital admission was appropriate and her clinical presentation warranted hospital admission. Radiology Impression Discussion of test interpretation with radiology: I have reviewed the radiologist's reading. Radiologist Impression: CLINICAL INFORMATION: Left rib pain COMPARISON: 05/24/2022 TECHNIQUE: 3 views of the left ribs were obtained. FINDINGS: Lungs are well-inflated and clear. No pneumothorax or pleural effusion. Cardiac silhouette is normal in size. Pulmonary vascular pattern is normal. The ribs have an intact appearance. No evidence of an acute, displaced rib fracture. Mild dextrocurvature and mild to moderate multilevel discovertebral degenerative changes of the thoracic spine. Multiple surgical clips are present in the epigastric region. No dilated bowel loops in the visualized portion of the upper abdomen. No pneumoperitoneum. XR/XR ribs LT min 3V w CXR1V IMPRESSION: *? No acute pulmonary disease. *? No evidence of rib fracture. Discharge Plan Discharge Clinical Impression: Rib pain on left side, Acute costochondritis Patient Disposition: Home, Self-Care Instructions: Costochondritis (ED) Additional Instructions: Your x-rays did not show any rib fractures today. You likely have inflammation in between the rib cage. Please take prescribed anti-inflammatory as directed over the next several days. You can apply heat or ice to the area. Gentle stretching can help with your pain. Please return if you develop any fevers or chills, worsening pain, shortness of breath or chest pain. If any new or worsening symptoms occur please return for re-evaluation. Prescriptions: New ibuprofen 600 mg tablet 600 mg PO QID PRN (Reason: pain) Qty: 30 0RF lidocaine [Lidoderm] 5 % adhesive patch,medicated 1 patch topical DAILY Qty: 15 0RF Rx Instructions: leave on most painful area for up to 12 hrs No Action cyanocobalamin (vitamin B-12) 1,000 mcg capsule 1,000 mcg PO DAILY gabapentin 100 mg capsule 100 mg PO TID Qty: 270 0RF cholecalciferol (vitamin D3) 50 mcg (2,000 unit) capsule 2,000 unit PO DAILY hydrochlorothiazide 12.5 mg tablet 12.5 mg PO DAILY 90 Days Qty: 90 3RF lidocaine [Lidoderm] 5 % adhesive patch,medicated 1 patch topical DAILY Qty: 15 0RF Rx Instructions: leave on most painful area for up to 12 hrs cyclobenzaprine 10 mg tablet 10 mg PO TID PRN (Reason: muscle spasm) Qty: 15 0RF cefuroxime axetil 250 mg tablet 250 mg PO BID Qty: 9 0RF clonazepam 1 mg tablet 1 mg PO BEDTIME Rx Instructions: administer 30 minutes before bedtime bupropion HCl 150 mg tablet extended release 24 hr 150 mg PO QAM pantoprazole 40 mg tablet,delayed release (DR/EC) 40 mg PO DAILY diltiazem HCl 180 mg capsule,extended release 24hr 180 mg PO DAILY Flovent HFA 110 mcg/actuation HFA aerosol inhaler 1 puff PO BID hydroxyzine pamoate 50 mg capsule 50 mg PO TID PRN (Reason: anxiety) losartan 50 mg tablet 50 mg PO DAILY estradiol 0.01 % (0.1 mg/gram) cream See Rx Instructions vaginal 3XW 30 Days Qty: 42.5 0RF Rx Instructions: vaginally 3 times a week; pea sized amount to urethra 3 times a week levothyroxine 25 mcg tablet 25 mcg PO DAILY topiramate 50 mg tablet 50 mg PO QID riboflavin (vitamin B2) [Vitamin B-2] 100 mg tablet 200 mg PO BID nitrofurantoin macrocrystal 100 mg capsule 100 mg PO Q12H 14 Days Qty: 28 0RF Rx Instructions: Start antibiotics 2 days before procedure Interventions: ED Discharge Assessment Last Done: 03/07/23 11:52 Discharge Date/Time: 03/07/23 11:53
[2023-03-07 11:48] VITALS: BP 131/81; PULSE 70; RESP 17; O2SAT 97
== END 2023-03-07 11:53 | disposition home or self-care (01) ==
PROVIDERS: Emergency Provider Emergency Medicine; PCP Nurse Practitioner Primary Care
DX: R07.81 Pleurodynia (principal); M94.0 Chondrocostal junction syndrome [Tietze]; Z79.899 Other long term (current) drug therapy
CPT/HCPCS: 71101; 99283; 99284

== ENCOUNTER 2023-03-10 10:22 | Outpatient (AMB) | payer MEDICAID, SELFPAY ==
--- NOTE | 2023-03-10 10:47 | MHC.OFFVIS ---
Intake Intake Visit Reasons: 6w/US(SET) Intake Note: Patient is present for follow up ultrasound/interstitial cystitis (imaging 02/11) Urology Medications: Macrobid, Estrace (patient stated not using cream) Blood Thinner: none Tool Planner Required: Yes Accompanied by: Self / Same As Patient Allergies ondansetron [From ZOFRAN] Allergy (Unknown, Verified 03/10/23 11:15) per H&P sumatriptan [From IMITREX] Allergy (Unknown, Verified 03/10/23 11:15) RASH FROM TABLET NOT INJECTION promethazine [From PHENERGAN] Adverse Reaction (Severe, Verified 03/10/23 11:15) DYSTONIA Medication List - Last Reconciled 03/10/23 by KYLER Bhatia- bupropion HCl 150 mg PO QAM cefuroxime axetil 250 mg PO BID cholecalciferol (vitamin D3) 2,000 units PO DAILY clonazepam 1 mg PO BEDTIME cyanocobalamin (vitamin B-12) 1,000 mcg PO DAILY cyclobenzaprine 10 mg PO TID PRN diltiazem HCl 180 mg PO DAILY estradiol 0.01%(0.1mg/gram) vaginally 3 times a week; pea sized amount to urethra 3 times a week 30 days fluticasone propionate 110 mcg/actuation (Flovent HFA) 1 puff PO BID gabapentin 100 mg PO TID hydrochlorothiazide 12.5 mg PO DAILY 90 days hydroxyzine pamoate 50 mg PO TID PRN ibuprofen 600 mg PO QID PRN levothyroxine 25 mcg PO DAILY lidocaine 5% (Lidoderm) 1 patch topical DAILY lidocaine 5% (Lidoderm) 1 patch topical DAILY losartan 50 mg PO DAILY mirtazapine 30 mg PO BEDTIME pantoprazole 40 mg PO DAILY riboflavin (vitamin B2) (Vitamin B-2) 200 mg PO BID topiramate 50 mg PO QID zolpidem 10 mg PO BEDTIME HPI HPI Comments History of Present Illness Details Laura is a pleasant 58 year old female patient of Dr. Weir. She has a past medical history of interstitial cystitis, BV, osteoporosis, and hypothyroidism. She presents to the office today for follow-up. Of note, patient was previously seen approximately 6 weeks ago at which time a retroperitoneal ultrasound was ordered for further assessment evaluation given her recent ER admission and ongoing issues with recurrent UTIs with question of pyelonephritis. Retroperitoneal ultrasound results reviewed with the patient today. Right kidney with 3 mm echogenic focus present in the mid right kidney consistent with nonobstructing calculus. No lesions or hydronephrosis noted. Left kidney with no calculi, lesions, and or hydronephrosis. The bladder is well distended and normal. Patient reports recent ER visit approximately 3 days ago for left-sided rib pain radiating under left breast. She reports to be following up with her PCP regarding this issue within the next few days as she has called and left message with nursing. She does continue to report left-sided rib pain. She reports pain to be worse with movement and palpation of area she otherwise denies any other aggravating factors. In office urinalysis results reviewed with the patient today. However she denies urinary urgency, urinary frequency, incontinence, nocturia, hematuria, changes to urinary stream, flank pain, fever, and or chills. When asked she reports complaince with Estrace cream as prescribed. [facility] Medical History (Updated 03/11/23 @ 21:07 by JEANETH Bhatia) Goiter History of secondary hyperparathyroidism Hypercalciuria Hyperparathyroidism Hypothyroidism Vitamin D deficiency Surgical History H/O bilateral salpingo-oophorectomy H/O left breast biopsy H/O: hysterectomy History of appendectomy History of bilateral tubal ligation S/P gastric bypass Family History Mother Uterine cancer Father No problems noted. 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 Sexual orientation: Straight/Heterosexual Gender identity: Female Female Reproductive History Menstrual Age of Menarche: 13 Review of Systems Const All systems reviewed & are unremarkable except as noted in HPI and below Reports as per HPI Eyes Reports no additional complaints ENT Reports no additional complaints Card Reports no additional complaints Resp Reports no additional complaints GI Reports no additional complaints Reports as per HPI Musc Reports no additional complaints Neuro Reports no additional complaints Psych Reports anxiety and Reports depression Endo Reports no additional complaints Aman/Lymph Reports no additional complaints Aller/Immun Reports no additional complaints Physical Exam Const General: cooperative, healthy appearing, comfortable, no acute distress, well developed, alert and awake Orientation/consciousness: patient oriented x3 Limitations: no limitations HEENT Head: Yes normal to inspection, Yes normocephalic and Yes atraumatic Ears: hearing grossly normal bilaterally Eyes General: appearance normal, both eyes and all related structures Neck Neck: Yes normal visual inspection and Yes trachea midline Chest Chest palpation & inspection: normal inspection of the chest Resp Effort & Inspection: normal respiratory effort and able to speak in complete sentences Cardio Rate: regular rate GI Inspection: Yes normal to inspection General: Yes CVA tenderness bilateral External Female Exam: normal external appearance and normal appearance of the urethra Speculum Exam - Vagina: normal appearance of the vagina (piercing noted ) Back/Spine/Pelvis Back: CVA tenderness Skin General skin exam: no rashes or lesions noted Neuro General: patient oriented x3 Extrem General: Yes normal to inspection Psych Appearance: grossly normal and well kempt Mental Status: mental status grossly normal Speech and movement: Normal speech and movement present and Clear speech present Affect: normal affect Attitude: cooperative Thought process: Normal thought process present Thought content: Normal thought content present Insight: Fair insight present (Psych) Judgement: Fair judgement present (Psych) Office Procedures Post Void Residual Post Residual Void Post Void Residual (PVR): 0 07135-[id number] Void Residual by ultrasound Results AMB Urinalysis, Automated UA Leukoctes 15 Ynes/uL Last Edit by [employer] on 03/10/23 10:59 UA Nitrite Negative Last Edit by [employer] on 03/10/23 10:59 UA Urobilinogen 0.2 mg/dL Last Edit by [employer] on 03/10/23 10:59 UA Protein 0 mg/dL Last Edit by [employer] on 03/10/23 10:59 UA pH 8.0 Last Edit by [employer] on 03/10/23 10:59 UA Blood 0 Christiano/uL Last Edit by [employer] on 03/10/23 10:59 UA Specific Naoma 1.010 Last Edit by [employer] on 03/10/23 10:59 UA Ketone Negative Last Edit by [employer] on 03/10/23 10:59 UA Bilirubin 0 mg/dL Last Edit by Lara Hull on 03/10/23 10:59 UA Glucose 0 mg/dL Last Edit by Lara Hull on 03/10/23 10:59 Results Reviewed Results Reviewed: Laboratory Last Values Urine pH (Auto) 8.0 03/10/23 10:50 Specific Naoma (Auto) 1.010 03/10/23 10:50 Urine Protein (Auto) 0 mg/dL 03/10/23 10:50 Glucose (UA)(Auto) 0 mg/dL 03/10/23 10:50 Urine Ketones (Auto) Negative 03/10/23 10:50 Urine Blood (Auto) 0 Christiano/uL 03/10/23 10:50 Urine Nitrite (Auto) Negative 03/10/23 10:50 Urine Bilirubin (Auto) 0 mg/dL 03/10/23 10:50 Urine Urobilinogen (Auto) 0.2 mg/dL 03/10/23 10:50 Leukocyte Esterase (Auto) 15 Ynes/uL 03/10/23 10:50 Date of Service: 02/11/23 Procedure(s): US retroperitoneal comp FINDINGS: RIGHT KIDNEY: 11.3 x 3.5 x 5.2 cm (SAG x AP x TRV). The kidney is normal in size, contour, and echogenicity. Renal cortical thickness is normal. There is a 3 mm echogenic focus present in the mid right kidney consistent with a nonobstructing calculus. No focal parenchymal lesions or hydronephrosis. LEFT KIDNEY: 11.4 x 4.9 x 5.4 cm (SAG x AP x TRV). The kidney is normal in size, contour, and echogenicity. Renal cortical thickness is normal. No calculi or focal parenchymal lesions. No hydronephrosis. BLADDER: Well distended and normal. Bilateral ureteral jets are demonstrated. Prevoid bladder volume is 202 mL. Postvoid bladder volume is 11 mL. IMPRESSION: Nonobstructing 3 mm right renal calculus. Assessment & Plan Assessment & Plan (1) Nephrolithiasis: Code(s): N20.0 - Calculus of kidney (2) Recurrent UTI: Code(s): N39.0 - Urinary tract infection, site not specified Plan In office urinalysis results reviewed with the patient today. Recent imaging results reviewed with the patient today; as noted above. Discussed, educated, and stressed the importance of drinking plenty of water daily. Discussed adding 1 oz of lemon juice to water daily Continue Estrace cream as discussed and prescribed. Start vitamin B6 as discussed and prescribed. Patient continues with lateral left-sided rib pain radiating under left breast; follow-up with PCP as planned. Follow-up in 3 months; if not sooner with any issues, concerns, and or questions Orders: Orders AMB Urinalysis Automated 03/10/23 Z13.9 - Encounter for screening, unspecified AMB Post Void Residual by ultrasound 03/10/23 R32 - Unspecified urinary incontinence Medications: New pyridoxine (vitamin B6) 100 mg PO DAILY 90 tabs 1RF 90 days N20.0 - Calculus of kidney Refilled estradiol 0.01%(0.1mg/gram) vaginally 3 times a week; pea sized amount to urethra 3 times a week 30 days 42.5 grams 0RF Patient Instructions: The patient had an opportunity to ask questions regarding the treatment plan. All questions were answered. Physical exam, labs, and imaging were discussed and reviewed in detail. As well as risks, benefits, and discussion of treatment choices. No major barriers to understanding were identified. The patient expressed understanding and agreement with the above treatment plan. The patient was made aware they should contact our office by phone for worsening of their current condition, the appearance of new symptoms, or with any questions or concerns. Compliance is encouraged with any medications and follow up testing that is ordered. It is a privilege to be allowed the opportunity to participate in? your urological care.? Again, if you have any questions or concerns If you have any questions or concerns please do not hesitate to contact me. The office is [phone]. This note is constructed using voice recognition software. While every effort has been made to ensure accuracy glazier metal furniture errors may have been included. Yours sincerely, JEANETH Bhatia Coding Level of Care Code Est Pt Level 4 (26405) Diagnoses Nephrolithiasis N20.0 Recurrent UTI N39.0 CPT Codes Post Residual Void - PVR CPT Code: 40973-Wuak Void Residual by ultrasound ([id number])
== END 2023-03-10 11:19 | disposition home or self-care (01) ==
PROVIDERS: Visit Provider Nurse Practitioner Family
DX: N39.0 Urinary tract infection, site not specified (principal)
CPT/HCPCS: 99214

== ENCOUNTER → 2023-03-10 10:22 | Outpatient (BNVA) | payer MEDICAID, SELFPAY | PROVIDERS: Visit Provider Nurse Practitioner Family | DX: N20.0 Calculus of kidney (principal); N39.0 Urinary tract infection, site not specified | CPT/HCPCS: 51798; 99214 ==

== ENCOUNTER 2023-05-06 22:33 | Emergency (ER) | payer MEDICAID, SELFPAY ==
--- NOTE | ~2023-05-06 | XR_ITS ---
EXAMINATION: XR FOOT, LEFT CLINICAL INFORMATION: Pain status post trauma. COMPARISON: None available. TECHNIQUE: AP, lateral, and oblique views of the left foot. FINDINGS: There is abnormal morphology of the fifth toe phalanges with absence of the middle phalanx and the widened articulation between the proximal and distal phalanx, potentially the result of developmental variation (synphalangism) or prior trauma. No acute fractures are identified. No acute fractures are identified. Minimal first MTP osteoarthritis. Lisfranc alignment appears appropriate. Mild soft tissue swelling in the medial midfoot. Small enthesopathic spurs are present at the Achilles tendon insertion and plantar fascial origin on the calcaneus. XR/XR foot LT 2V IMPRESSION: 1. No acute fracture or malalignment. 2. 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 Widening of the fifth toe interphalangeal joint may be due to developmental variation, though prior trauma with instability at this articulation is also possible.
[2023-05-06 22:56] VITALS: BP 105/71; PULSE 88; RESP 18; TEMP 36.6; O2SAT 96; BMI 28.3
[2023-05-06] MEDS: Ibuprofen 600 MG TABLET PO (23:05)
--- NOTE | 2023-05-07 01:41 | ED.LOWEXIN ---
HPI - Extremity Injury (Lower) General Chief Complaint: Extremity Injury, Lower Stated Complaint: left foot inj Time Seen by Provider: 05/07/23 01:27 Source: patient and RN notes reviewed Mode of arrival: ambulatory Limitations: no limitations History of Present Illness HPI Narrative: This is a 58-year-old female, with a past medical history of osteoporosis, presenting to the emergency department with complaints of left foot pain since today. Patient states that she was walking to let her dogs out and she accidentally being to her foot up against a wooden drawer. Patient reports that she immediately felt pain. She has had a throbbing pain in her feet. She denies history of problems in her feet before. She has been able to ambulate without difficulty. No numbness or tingling. No other complaints or concerns at this time. MD complaint: foot injury Onset (ago): hour(s) Place: home Severity: moderate Relieving factors: nothing Exacerbating factors: nothing Context: direct blow Other symptoms: none Related Data Home Medications Medication Instructions Recorded Confirmed cyanocobalamin (vitamin B-12) 1,000 mcg PO DAILY 07/05/20 03/10/23 1,000 mcg capsule bupropion HCl 150 mg 24 hr tablet, 150 mg PO QAM 11/24/21 03/10/23 extended release clonazepam 1 mg tablet 1 mg PO BEDTIME 11/24/21 03/10/23 diltiazem HCl 180 mg 180 mg PO DAILY 11/24/21 03/10/23 capsule,extended release 24 hr fluticasone propionate 110 1 puff PO BID 11/24/21 03/10/23 mcg/actuation HFA aerosol inhaler (Flovent HFA) hydroxyzine pamoate 50 mg capsule 50 mg PO TID PRN anxiety 11/24/21 03/10/23 pantoprazole 40 mg tablet,delayed 40 mg PO DAILY 11/24/21 03/10/23 release cholecalciferol (vitamin D3) 50 2,000 unit PO DAILY 11/26/21 03/10/23 mcg (2,000 unit) capsule losartan 50 mg tablet 50 mg PO DAILY blood pressure 11/24/22 03/10/23 levothyroxine 25 mcg tablet 25 mcg PO DAILY 01/08/23 03/10/23 riboflavin (vitamin B2) 100 mg 200 mg PO BID 01/08/23 03/10/23 tablet (Vitamin B-2) topiramate 50 mg tablet 50 mg PO QID 01/08/23 03/10/23 mirtazapine 30 mg tablet 30 mg PO BEDTIME 03/10/23 03/10/23 zolpidem 10 mg tablet 10 mg PO BEDTIME 03/10/23 03/10/23 Previous Rx's Medication Instructions Recorded gabapentin 100 mg capsule 100 mg PO TID #270 caps 04/15/21 cyclobenzaprine 10 mg tablet 10 mg PO TID PRN muscle spasm #15 11/25/22 tabs lidocaine 5 % topical patch 1 patch topical DAILY #15 ea 11/25/22 (Lidoderm) hydrochlorothiazide 12.5 mg tablet 12.5 mg PO DAILY 90 days #90 tabs 01/13/23 cefuroxime axetil 250 mg tablet 250 mg PO BID #9 tabs 03/03/23 ibuprofen 600 mg tablet 600 mg PO QID PRN pain #30 tabs 03/07/23 lidocaine 5 % topical patch 1 patch topical DAILY #15 ea 03/07/23 (Lidoderm) estradiol 0.01% (0.1 mg/gram) See Rx Instructions vaginal 3XW 30 03/10/23 vaginal cream days #42.5 grams pyridoxine (vitamin B6) 100 mg 100 mg PO DAILY 90 days #90 tabs 03/11/23 tablet acetaminophen 325 mg capsule 650 mg (2 x 325 mg) PO Q6H PRN 05/07/23 (Tylenol) pain #30 caps ibuprofen 600 mg tablet 600 mg PO Q6H PRN pain #30 tabs 05/07/23 Allergies Allergy/AdvReac Type Severity Reaction Status Date / Time ondansetron [From ZOFRAN] Allergy Unknown per H&P Verified 03/10/23 11:15 sumatriptan [From IMITREX] Allergy Unknown RASH FROM Verified 03/10/23 11:15 TABLET NOT INJECTION promethazine [From PHENERGAN] AdvReac Severe DYSTONIA Verified 03/10/23 11:15 Review of Systems Review of Systems: Yes all other systems are reviewed and are negative Constitutional: Constitutional: Reports as per [facility] Past Medical History Attestation statement: The following information was validated with the patient. Medical History Goiter Hypercalciuria Vitamin D deficiency Hypothyroidism History of secondary hyperparathyroidism Hyperparathyroidism Surgical History H/O bilateral salpingo-oophorectomy S/P gastric bypass H/O left breast biopsy H/O: hysterectomy History of bilateral tubal ligation History of appendectomy Family History Family History Mother Uterine cancer Father No problems noted. 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 Sexual orientation: Straight/Heterosexual Gender identity: Female Physical Exam Vital Signs: Vital Signs: Last Vital Signs Temp 97.9 F 05/06/23 22:56 Pulse 88 05/06/23 22:56 Resp 18 05/06/23 22:56 BP 105/71 05/06/23 22:56 Pulse Ox 96 05/06/23 22:56 O2 Del Method Room Air 05/06/23 22:56 BMI result Body Mass Index 28.3 Const: General: cooperative, comfortable and no acute distress Orientation/consciousness: patient oriented x3 Limitations: no limitations HEENT: Head: Yes normal to inspection, Yes normocephalic and Yes atraumatic Ears: hearing grossly normal bilaterally General nose exam: Normal external nose present Face and sinus: Yes normal facial exam Mouth: Normal oral and palatal mucosa present, oropharynx normal and moist mucous membranes Throat: Yes posterior oropharynx normal Eyes: General: appearance normal, both eyes and all related structures Eyelids: Yes eyelids normal Conjunctivae: conjunctivae normal Sclerae: sclerae normal Pupils: Equal, round and reactive pupils present EOM: EOMs intact bilaterally Neck: Neck: Yes normal visual inspection, Yes full ROM and Yes no lymphadenopathy Lymphatic: no lymphadenopathy noted Chest: Chest palpation & inspection: normal inspection of the chest Resp: Effort & Inspection: normal respiratory effort and able to speak in complete sentences Auscultation: clear to auscultation bilaterally, no crackles, no rales, no rhonchi and no wheezes Cardio: Rate: regular rate Rhythm: regular rhythm Heart sounds: S1 normal heart sound present and S2 normal heart sound present GI: Inspection: Yes normal to inspection Skin: General skin exam: no rashes or lesions noted Trauma: no lacerations or abrasions Wounds: no wounds Neuro: General: patient oriented x3 and moves all extremities Cranial nerves: Yes Equal, round and reactive pupils present Extrem: Other: Left foot with no obvious deformity or swelling. Patient has tenderness to palpation along the left 3rd 4th and 5th metatarsals. No step-off. No hematoma. No ecchymosis. No open wounds. DP pulses 2+. Full range of motion of the ankle and foot General: Yes normal to inspection Right upper extremity: normal to inspection Left upper extremity: normal to inspection Right lower extremity: normal to inspection Left lower extremity: normal to inspection Medications Administered Discontinued Medications Generic Name Dose Route Start Last Admin Trade Name Freq PRN Reason Stop Dose Admin Ibuprofen 600 mg 05/06/23 23:00 05/06/23 23:05 Ibuprofen 600 Mg Tablet PO 05/06/23 23:01 600 mg ONCE ONE Administration Medical Decision Making Medical Decision Making [facility] Narrative: This is a 58-year-old female presenting to the emergency department with complaints of left foot pain status post striking her left foot on a drawer. Vital signs stable. Patient is ambulatory. Differentials include fracture, contusion, sprain, strain. Differential Diagnosis Differential Diagnoses: The differential diagnosis associated with the presentation includes Fracture, contusion, sprain, strain Radiology Impression Discussion of test interpretation with radiology: I have reviewed the radiologist's reading. Radiologist Impression: EXAMINATION: XR FOOT, LEFT CLINICAL INFORMATION: Pain status post trauma. COMPARISON: None available. TECHNIQUE: AP, lateral, and oblique views of the left foot. FINDINGS: There is abnormal morphology of the fifth toe phalanges with absence of the middle phalanx and the widened articulation between the proximal and distal phalanx, potentially the result of developmental variation (synphalangism) or prior trauma. No acute fractures are identified. No acute fractures are identified. Minimal first MTP osteoarthritis. Lisfranc alignment appears appropriate. Mild soft tissue swelling in the medial midfoot. Small enthesopathic spurs are present at the Achilles tendon insertion and plantar fascial origin on the calcaneus. XR/XR foot LT 2V IMPRESSION: 1. No acute fracture or malalignment. 2. 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 Widening of the fifth toe interphalangeal joint may be due to developmental variation, though prior trauma with instability at this articulation is also possible. Dictated By: n Discharge Plan Discharge Clinical Impression: Contusion of foot, left Qualifiers: Encounter type: initial encounter Qualified Code(s): S90.32XA - Contusion of left foot, initial encounter Patient Disposition: Home, Self-Care Instructions: Foot Contusion (ED) Additional Instructions: Your foot x-ray does not show any broken bones. Please rest, ice, and elevate your left leg and foot. Take ibuprofen and Tylenol as directed as needed for pain. If any new or worsening symptoms occur, please return for re-evaluation. Prescriptions: New ibuprofen 600 mg tablet 600 mg PO Q6H PRN (Reason: pain) Qty: 30 0RF acetaminophen [Tylenol] 325 mg capsule 650 mg PO Q6H PRN (Reason: pain) Qty: 30 0RF No Action cyanocobalamin (vitamin B-12) 1,000 mcg capsule 1,000 mcg PO DAILY gabapentin 100 mg capsule 100 mg PO TID Qty: 270 0RF cholecalciferol (vitamin D3) 50 mcg (2,000 unit) capsule 2,000 unit PO DAILY hydrochlorothiazide 12.5 mg tablet 12.5 mg PO DAILY 90 Days Qty: 90 3RF lidocaine [Lidoderm] 5 % adhesive patch,medicated 1 patch topical DAILY Qty: 15 0RF Rx Instructions: leave on most painful area for up to 12 hrs cyclobenzaprine 10 mg tablet 10 mg PO TID PRN (Reason: muscle spasm) Qty: 15 0RF cefuroxime axetil 250 mg tablet 250 mg PO BID Qty: 9 0RF ibuprofen 600 mg tablet 600 mg PO QID PRN (Reason: pain) Qty: 30 0RF lidocaine [Lidoderm] 5 % adhesive patch,medicated 1 patch topical DAILY Qty: 15 0RF Rx Instructions: leave on most painful area for up to 12 hrs clonazepam 1 mg tablet 1 mg PO BEDTIME Rx Instructions: administer 30 minutes before bedtime bupropion HCl 150 mg tablet extended release 24 hr 150 mg PO QAM pantoprazole 40 mg tablet,delayed release (DR/EC) 40 mg PO DAILY diltiazem HCl 180 mg capsule,extended release 24hr 180 mg PO DAILY Flovent HFA 110 mcg/actuation HFA aerosol inhaler 1 puff PO BID hydroxyzine pamoate 50 mg capsule 50 mg PO TID PRN (Reason: anxiety) losartan 50 mg tablet 50 mg PO DAILY levothyroxine 25 mcg tablet 25 mcg PO DAILY topiramate 50 mg tablet 50 mg PO QID riboflavin (vitamin B2) [Vitamin B-2] 100 mg tablet 200 mg PO BID zolpidem 10 mg tablet 10 mg PO BEDTIME mirtazapine 30 mg tablet 30 mg PO BEDTIME estradiol 0.01 % (0.1 mg/gram) cream See Rx Instructions vaginal 3XW 30 Days Qty: 42.5 0RF Rx Instructions: vaginally 3 times a week; pea sized amount to urethra 3 times a week pyridoxine (vitamin B6) 100 mg tablet 100 mg PO DAILY 90 Days Qty: 90 1RF
== END 2023-05-07 02:16 | disposition home or self-care (01) ==
PROVIDERS: Emergency Provider Internal Medicine
DX: S90.32XA Contusion of left foot, initial encounter (principal); W22.03XA Walked into furniture, initial encounter; Y93.89 Activity, other specified; Y92.009 Unspecified place in unspecified non-institutional (private) residence as the place of occurrence of the external cause; Y99.9 Unspecified external cause status
CPT/HCPCS: 73620; 99283

== ENCOUNTER 2023-06-02 09:36 | Outpatient (REF) | payer MEDICAID, SELFPAY ==
[2023-06-02 10:59] LABS: Alanine Aminotransferase 17 U/L (0-31); Alkaline Phosphatase 109 U/L (39-117); Aspartate Amino Transferase 21 U/L (5-31); Bilirubin Direct 0.2 mg/dL (0.0-0.5); Bilirubin Total 0.5 mg/dL (0.0-1.0); Gamma Glutamyl Transpeptidase 19 U/L (7-33); Iron 36 mcg/dL (30-160); Percent Iron Saturation 8 % (15-50); Total Iron Binding Capacity 425 mcg/dL (228-428); Unsaturated Iron Binding 389 ug/dL
[2023-06-02 11:17] LABS: Ferritin 9 ng/mL (10-250)
[2023-06-05 23:03] LABS: Smooth Muscle Antibody <20 U (<20)
[2023-06-07 13:59] LABS: Anti Nuclear Antibody Screen NEGATIVE (NEGATIVE)
[2023-06-08 11:04] LABS: Mitochondrial Antibodies NEGATIVE (NEGATIVE)
[2023-06-09 00:18] LABS: FIB-ALT 17 U/L (6-29); FIB-Alpha-2-Macroglobulin 204 mg/dL (106-279); FIB-Apolipoprotein A1 164 mg/dL (101-198); FIB-GGT 15 U/L (3-70); FIB-Haptoglobin 108 mg/dL (43-212); FIB-Total Bilirubin 0.5 mg/dL (0.2-1.2); Liver Fibrosis Score 0.15; Liver Fibrosis Stage F0; Nec Inflam Act Grade A0; Nec Inflam Act Score 0.05
== END 2023-06-02 09:37 | disposition home or self-care (01) ==
LOC: HO.LAB 09:36
PROVIDERS: Visit Provider Internal Medicine Gastroenterology
DX: R79.89 Other specified abnormal findings of blood chemistry (principal)
CPT/HCPCS: 36415; 80076; 81596; 82728; 82977; 83540; 86015; 86038; 86381

== ENCOUNTER 2023-06-10 10:31 | Outpatient (AMB) | payer MEDICAID, SELFPAY ==
--- NOTE | 2023-06-10 11:01 | A.OFFVIS_ITS ---
Intake Intake Visit Reasons: 3m follow up Intake Note: Patient is present for follow up recurrent uti/nephrolithiasis Urology Medications: Estrace Cream, Vitamin B 6 Blood Thinner: none PVR: 0ml's Air Drier Machine Operator Required: Yes Air Drier Machine Operator Name: DARCI Accompanied by: Self / Same As Patient Allergies ondansetron [From ZOFRAN] Allergy (Unknown, Verified 06/10/23 12:03) per H&P sumatriptan [From IMITREX] Allergy (Unknown, Verified 06/10/23 12:03) RASH FROM TABLET NOT INJECTION promethazine [From PHENERGAN] Adverse Reaction (Severe, Verified 06/10/23 12:03) DYSTONIA Medication List - Last Reconciled 06/10/23 by JEANETH Bhatia acetaminophen (Tylenol) 650 mg (2 x 325 mg) PO Q6H PRN bupropion HCl 150 mg PO QAM cefuroxime axetil 250 mg PO BID cholecalciferol (vitamin D3) 2,000 units PO DAILY clonazepam 1 mg PO BEDTIME cyanocobalamin (vitamin B-12) 1,000 mcg PO DAILY cyclobenzaprine 10 mg PO TID PRN diltiazem HCl 180 mg PO DAILY estradiol 0.01%(0.1mg/gram) vaginally 3 times a week; pea sized amount to urethra 3 times a week 30 days fluticasone propionate 110 mcg/actuation (Flovent HFA) 1 puff PO BID gabapentin 100 mg PO TID hydrochlorothiazide 12.5 mg PO DAILY 90 days hydroxyzine pamoate 50 mg PO TID PRN ibuprofen 600 mg PO QID PRN ibuprofen 600 mg PO Q6H PRN levothyroxine 25 mcg PO DAILY lidocaine 5% (Lidoderm) 1 patch topical DAILY lidocaine 5% (Lidoderm) 1 patch topical DAILY losartan 50 mg PO DAILY mirtazapine 30 mg PO BEDTIME pantoprazole 40 mg PO DAILY pyridoxine (vitamin B6) 100 mg PO DAILY 90 days riboflavin (vitamin B2) (Vitamin B-2) 200 mg PO BID topiramate 50 mg PO QID zolpidem 10 mg PO BEDTIME HPI HPI Comments History of Present Illness Details Laura is a pleasant 58 year old female patient of Dr. Weir. She has a past medical history of goiter, hypercalciuria interstitial cystitis, BV, osteoporosis, and hyperthyroidism. She presents to the office today for follow-up. When asked patient reports to be doing and feeling well. She reports recently following up with [facility] same date urgent care for an infection in her toe that she stubbed. When asked she continues to report bilateral flank pain. Discussed most recent CT results from February. The kidneys are normal in size, shape, and attenuation. Small stone in the right kidney. Kidneys are otherwise normal. The bladder is unremarkable. No CVA tenderness noted on exam today bilaterally. Discussed pain being related to musculoskeletal back pain during assessment of the patient today pain elicited with movements of bending over and or sitting up. In office urinalysis results reviewed with the patient today. She otherwise denies urinary urgency, urinary frequency, incontinence, nocturia, hematuria, changes to urinary stream, fever, and or c hills. Patient reports compliance with Estrace cream and reports somewhat improvement in dysuria. PVR 0 mL PFSH Medical History Goiter Hypercalciuria Vitamin D deficiency Hypothyroidism History of secondary hyperparathyroidism Hyperparathyroidism Surgical History H/O bilateral salpingo-oophorectomy S/P gastric bypass H/O left breast biopsy H/O: hysterectomy History of bilateral tubal ligation History of appendectomy Family History Mother Uterine cancer Father No problems noted. 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 Sexual orientation: Straight/Heterosexual Gender identity: Female Female Reproductive History Menstrual Age of Menarche: 13 Review of Systems Const All systems reviewed & are unremarkable except as noted in HPI and below Reports as per HPI Eyes Reports no additional complaints ENT Reports no additional complaints Card Reports no additional complaints Resp Reports no additional complaints GI Reports no additional complaints Reports as per HPI Musc Reports as per HPI Neuro Reports no additional complaints Psych Reports anxiety and Reports depression Endo Reports as per HPI Aman/Lymph Reports no additional complaints Aller/Immun Reports no additional complaints Physical Exam Const General: cooperative, healthy appearing, comfortable, no acute distress, well developed, alert and awake Orientation/consciousness: patient oriented x3 Limitations: no limitations HEENT Head: Yes normal to inspection, Yes normocephalic and Yes atraumatic Ears: hearing grossly normal bilaterally Eyes General: appearance normal, both eyes and all related structures Neck Neck: Yes normal visual inspection and Yes trachea midline Chest Chest palpation & inspection: normal inspection of the chest Resp Effort & Inspection: normal respiratory effort and able to speak in complete sentences Cardio Rate: regular rate GI Inspection: Yes normal to inspection General: Yes CVA tenderness bilateral External Female Exam: normal external appearance and normal appearance of the urethra Speculum Exam - Vagina: normal appearance of the vagina (piercing noted ) Back/Spine/Pelvis Back: CVA tenderness Skin General skin exam: no rashes or lesions noted Neuro General: patient oriented x3 Extrem General: Yes normal to inspection Psych Appearance: grossly normal and well kempt Mental Status: mental status grossly normal Speech and movement: Normal speech and movement present and Clear speech present Affect: normal affect Attitude: cooperative Thought process: Normal thought process present Thought content: Normal thought content present Insight: Fair insight present (Psych) Judgement: Fair judgement present (Psych) Office Procedures Post Void Residual Post Residual Void Post Void Residual (PVR): 0 [id number] Void Residual by ultrasound Results AMB Urinalysis, Automated UA Leukoctes 0 Ynes/uL Last Edit by [employer] on 06/10/23 11:25 UA Nitrite Negative Last Edit by [employer] on 06/10/23 11:25 UA Urobilinogen 0.2 mg/dL Last Edit by Dreamise on 06/10/23 11:25 UA Protein 0 mg/dL Last Edit by Dreamise on 06/10/23 11:25 UA pH 7.5 Last Edit by Dreamise on 06/10/23 11:25 UA Blood 0 Christiano/uL Last Edit by Dreamise on 06/10/23 11:25 UA Specific Killbuck 1.010 Last Edit by Dreamise on 06/10/23 11:25 UA Ketone Negative Last Edit by Dreamise on 06/10/23 11:25 UA Bilirubin 0 mg/dL Last Edit by Dreamise on 06/10/23 11:25 UA Glucose 0 mg/dL Last Edit by Lara Hull on 06/10/23 11:25 Results Reviewed Results Reviewed: Laboratory Last Values Urine pH (Auto) 7.5 06/10/23 11: Specific Killbuck (Auto) 1.010 06/10/23 11:23 Urine Protein (Auto) 0 mg/dL 06/10/23 11:23 Glucose (UA)(Auto) 0 mg/dL 06/10/23 11:23 Urine Ketones (Auto) Negative 06/10/23 11:23 Urine Blood (Auto) 0 Christiano/uL 06/10/23 11:23 Urine Nitrite (Auto) Negative 06/10/23 11:23 Urine Bilirubin (Auto) 0 mg/dL 06/10/23 11:23 Urine Urobilinogen (Auto) 0.2 mg/dL 06/10/23 11:23 Leukocyte Esterase (Auto) 0 Ynes/uL 06/10/23 11:23 Assessment & Plan Assessment & Plan (1) Recurrent UTI: Code(s): N39.0 - Urinary tract infection, site not specified (2) Nephrolithiasis: Code(s): N20.0 - Calculus of kidney (3) Flank pain: Code(s): R10.9 - Unspecified abdominal pain Plan In office urinalysis results reviewed with the patient today; as noted above. PVR 0 mL. Will obtain renal ultrasound for further assessment evaluation. Continue Estrace cream as discussed and prescribed. No CVA tenderness noted on exam today Discussed pain elicited during movements of sitting and standing most likely musculoskeletal. Educated, encouraged, instructed on importance of drinking plenty of water daily. Follow-up once imaging is completed; or sooner with any issues, concerns, and or questions. Orders: Orders AMB Post Void Residual by ultrasound 06/10/23 N39.0 - Urinary tract infection, site not specified AMB Urinalysis Automated 06/10/23 Z13.9 - Encounter for screening, unspecified US renal BI Today N20.0 - Calculus of kidney Medications: Refilled estradiol 0.01%(0.1mg/gram) vaginally 3 times a week; pea sized amount to uret hra 3 times a week 30 days 42.5 grams 0RF Coding Level of Care Code Est Pt Level 3 (25199) Diagnoses Recurrent UTI N39.0 Nephrolithiasis N20.0 Flank pain R10.9 CPT Codes Post Residual Void - PVR CPT Code: 23663-Ivlq Void Residual by ultrasound ([id number])
== END 2023-06-10 11:27 | disposition home or self-care (01) ==
PROVIDERS: PCP Nurse Practitioner Primary Care; Visit Provider Nurse Practitioner Family
DX: N39.0 Urinary tract infection, site not specified (principal); N20.0 Calculus of kidney; R10.9 Unspecified abdominal pain
CPT/HCPCS: 99213

== ENCOUNTER → 2023-06-10 10:31 | Outpatient (BNVA) | payer MEDICAID, SELFPAY | PROVIDERS: PCP Nurse Practitioner Primary Care; Visit Provider Nurse Practitioner Family | DX: N39.0 Urinary tract infection, site not specified (principal); N20.0 Calculus of kidney | CPT/HCPCS: 51798; 81003; 99212 ==

== ENCOUNTER 2023-07-07 08:50 | Outpatient (REF) | payer MEDICAID, SELFPAY ==
--- NOTE | ~2023-07-07 | US_ITS ---
EXAMINATION: US THYROID CLINICAL INFORMATION: Nontoxic goiter, unspecified. COMPARISON: Thyroid ultrasound 11/10/2021 and 10/24/2018. TECHNIQUE: Linear transducer grissom-scale and color Doppler examination with attention to the region of the thyroid. FINDINGS: SIZE: Measurements of the thyroid lobes and nodules are given in sagittal, anteroposterior and transverse dimensions respectively. Right Thyroid Lobe: 4.3 x 1.3 x 1.4 cm, volume 4.0 mL. Previously 4.3 x 1.1 x 1.2 cm, volume 4.9 mL. Parenchyma: The gland echotexture is homogeneous. Thyroid vascularity is normal. Left Thyroid Lobe: 4.6 x 0.9 x 1.2 cm, volume 2.5 mL. Previously 4.2 x 0.8 x 1.4 cm, volume 2.4 mL. Parenchyma: The gland echotexture is homogeneous. Thyroid vascularity is normal. Isthmus: 0.3 cm in maximum AP dimension. Previously 0.1 cm. Estimated total number of nodules greater than or equal to 1 cm: 0. [employer] nodules are described as follows: 1. Location: Right mid. Size: 0.8 x 0.6 x 0.7 cm, volume 0.2 mL. Previously: 0.7 x 0.6 x 0.5 cm, volume 0.1 mL. Nodule characteristics: Composition: Solid (2). Echogenicity: Isoechoic (1). Shape: Not taller than wide (0). Margins: Smooth (0). Echogenic Foci: None (0). ACR TI-RADS total points: 3 Previous: 3 ACR TI-RADS category: 3 Previous: 3 Significant change in size (>/= 20% in 2 dimensions and minimal increase of 2 mm or 50% or greater increase in volume): No Change in features: No Change in ACR TI-RADS risk category: No NODES: Left level 3 lymph node measures 2.1 x 0.3 x 1.2 cm. US/US thyroid IMPRESSION: No further routine follow-up is needed for right mid thyroid nodule. Nonspecific left level 3 lymph node measuring 2.1 x 0.3 x 1.2 cm. ACR TI-RADS RECOMMENDATION REFERENCE: Ultrasound-guided fine-needle aspiration, follow up ultrasound, no further followup. * TR1 (0 point) and TR2 (2 points): No FNA or followup * TR3 (3 points): FNA if more than or equal to 2.5 cm in maximum dimension, follow up ultrasound in 1, 3 and 5 years if 1.5 to 2.4 cm in maximum dimension. * TR4 (4-6 points): FNA if more than or equal to 1.5 cm in maximum dimension, follow up ultrasound in 1, 2, 3 and 5 years if 1 to 1.4 cm in maximum dimension. * TR5 (more than or equal to 7 points): FNA if more than or equal to 1 cm in maximum dimension, follow up ultrasound every year for 5 years if 0.5 to 0.9 cm in maximum dimension. * TR3, TR4 or TR5 nodules that are below the size threshold for follow up receive no followup.
== END 2023-07-07 08:51 | disposition home or self-care (01) ==
LOC: HO.US 08:50
PROVIDERS: PCP Nurse Practitioner Primary Care; Visit Provider Internal Medicine
DX: E04.9 Nontoxic goiter, unspecified (principal)
CPT/HCPCS: 76536

== ENCOUNTER 2023-07-20 14:40 | Outpatient (REF) | payer MEDICAID, SELFPAY ==
--- NOTE | ~2023-07-20 | XR_ITS ---
EXAMINATION: XR RIBS, LEFT CLINICAL INFORMATION: Pain left sided ribs COMPARISON: Left rib radiograph from 03/07/2023 TECHNIQUE: 5 views of the left ribs were obtained. FINDINGS: No focal consolidation. No pneumothorax. Trachea is midline. Cardiomediastinal silhouette is not enlarged. Aorta demonstrates atherosclerotic calcifications. No large pleural effusion. Soft tissue piercings noted. Surgical clips involving the stomach and gastroesophageal junction. Surgical clip left breast tissue. Degenerative changes of the thoracolumbar spine. No acute visualized left-sided rib fractures. XR/XR ribs LT min 3V w CXR1V IMPRESSION: 1. No acute cardiopulmonary process. 2. No acute visualized left-sided rib fractures.
== END 2023-07-20 14:41 | disposition home or self-care (01) ==
LOC: HO.HHCX 14:40
PROVIDERS: Visit Provider Internal Medicine Geriatric Medicine
DX: R07.81 Pleurodynia (principal)
CPT/HCPCS: 71101

== ENCOUNTER 2023-08-02 11:48 | Emergency (ER) | payer MEDICAID, SELFPAY ==
[2023-08-02 12:01] VITALS: BP 114/67; PULSE 90; RESP 16; TEMP 36.4; O2SAT 99; BMI 27.5
--- NOTE | 2023-08-02 12:02 | ED.GENADULT ---
HPI - General Adult General Chief complaint: Abdominal Pain Stated complaint: L Side Pain Radiating to Back Time Seen by Provider: 08/02/23 20:23 Source: patient Mode of arrival: ambulatory Limitations: no limitations History of Present Illness HPI narrative: Patient is a 58 year old assigned female at with a history of kidney stones presenting to the emergency department today with left sided flank pain. Patient states that she has had left sided flank pain intermittently for 3 weeks. Patient denies any dizziness, lightheadedness, abdominal pain, nausea, vomiting, fever, chills, blurry vision, double vision, loss of vision, chest pain, difficulty breathing, shortness of breath, back pain, night sweats, pain with urination, increased urinary frequency, increased urinary urgency, blood in her urine or stool, syncope or a near syncopal episode, recent trauma or falls, bowel incontinence, bladder incontinence, bowel retention, bladder retention, or any other complaints at this time. Onset (ago): week(s) (3) Location: left (flank) Severity: mild Severity scale (1-10): 3 Quality: aching and dull Pain Consistency: intermittent Relieving factors: none Exacerbating factors: none Associated symptoms: denies other symptoms Treatments prior to arrival: none Related Data Home Medications Medication Instructions Recorded Confirmed cyanocobalamin (vitamin B-12) 1,000 mcg PO DAILY 07/05/20 06/10/23 1,000 mcg capsule bupropion HCl 150 mg 24 hr tablet, 150 mg PO QAM 11/24/21 06/10/23 extended release clonazepam 1 mg tablet 1 mg PO BEDTIME 11/24/21 06/10/23 diltiazem HCl 180 mg 180 mg PO DAILY 11/24/21 06/10/23 capsule,extended release 24 hr fluticasone propionate 110 1 puff PO BID 11/24/21 06/10/23 mcg/actuation HFA aerosol inhaler (Flovent HFA) hydroxyzine pamoate 50 mg capsule 50 mg PO TID PRN anxiety 11/24/21 06/10/23 pantoprazole 40 mg tablet,delayed 40 mg PO DAILY 11/24/21 06/10/23 release cholecalciferol (vitamin D3) 50 2,000 unit PO DAILY 11/26/21 06/10/23 mcg (2,000 unit) capsule losartan 50 mg tablet 50 mg PO DAILY blood pressure 11/24/22 06/10/23 levothyroxine 25 mcg tablet 25 mcg PO DAILY 01/08/23 06/10/23 riboflavin (vitamin B2) 100 mg 200 mg PO BID 01/08/23 06/10/23 tablet (Vitamin B-2) topiramate 50 mg tablet 50 mg PO QID 01/08/23 06/10/23 mirtazapine 30 mg tablet 30 mg PO BEDTIME 03/10/23 06/10/23 zolpidem 10 mg tablet 10 mg PO BEDTIME 03/10/23 06/10/23 Previous Rx's Medication Instructions Recorded gabapentin 100 mg capsule 100 mg PO TID #270 caps 04/15/21 cyclobenzaprine 10 mg tablet 10 mg PO TID PRN muscle spasm #15 11/25/22 tabs lidocaine 5 % topical patch 1 patch topical DAILY #15 ea 11/25/22 (Lidoderm) hydrochlorothiazide 12.5 mg tablet 12.5 mg PO DAILY 90 days #90 tabs 01/13/23 cefuroxime axetil 250 mg tablet 250 mg PO BID #9 tabs 03/03/23 ibuprofen 600 mg tablet 600 mg PO QID PRN pain #30 tabs 03/07/23 lidocaine 5 % topical patch 1 patch topical DAILY #15 ea 03/07/23 (Lidoderm) pyridoxine (vitamin B6) 100 mg 100 mg PO DAILY 90 days #90 tabs 03/11/23 tablet acetaminophen 325 mg capsule 650 mg (2 x 325 mg) PO Q6H PRN 05/07/23 (Tylenol) pain #30 caps ibuprofen 600 mg tablet 600 mg PO Q6H PRN pain #30 tabs 05/07/23 estradiol 0.01% (0.1 mg/gram) See Rx Instructions vaginal 3XW 30 06/10/23 vaginal cream days #42.5 grams Allergies Allergy/AdvReac Type Severity Reaction Status Date / Time ondansetron [From ZOFRAN] Allergy Unknown per H&P Verified 06/10/23 12:03 sumatriptan [From IMITREX] Allergy Unknown RASH FROM Verified 06/10/23 12:03 TABLET NOT INJECTION promethazine [From PHENERGAN] AdvReac Severe DYSTONIA Verified 06/10/23 12:03 Review of Systems Constitutional: Constitutional: Reports no additional constitutional complaints, Denies chills, Denies fever(s) and Denies night sweats Eyes: Eyes: Reports no additional eye complaints, Denies blurry vision, Denies change in vision, Denies diplopia, Denies eye discharge, Denies loss of vision and Denies eye pain ENT: Denies dizziness Cardiovascular: Cardiovascular: Reports no additional cardiovascular complaints, Denies chest pain, Denies lightheadedness, Denies Loss of Consciousness and Denies dyspnea Respiratory: Respiratory: Reports no additional respiratory complaints and Denies dyspnea Gastrointestinal: Gastrointestinal: Reports no additional gastrointestinal complaints, Denies abdominal pain, Denies melena, Denies hematochezia, Denies change in bowel habits and Denies change in stool character Genitourinary: Genitourinary: Denies hematuria, Denies urinary frequency, Denies dysuria, Denies urinary incontinence, Denies urinary hesitancy and Denies urinary urgency Comments: left flank pain Musculoskeletal: Musculoskeletal: Reports no additional musculoskeletal complaints, Denies numbness and Denies tingling Neurologic: Denies dizziness, Denies loss of vision, Denies numbness and Denies tingling Psychiatric: Psychiatric: Reports no additional psychiatric complaints Endocrine: Endocrine: Reports no additional endocrine complaints Hematologic/Lymphatic: Hematologic/Lymphatic: Reports no additional hematologic/lymphatic complaints Allergic/Immunologic: Allergic/Immunologic: Reports no additional allergic/immunologic complaints PMF Past Medical History Attestation statement: The following information was validated with the patient. Source: old records reviewed and nursing notes reviewed Medical History Recurrent UTI Flank pain Dysuria Swelling of joint, ankle, right Swelling of right foot Right patella fracture Well woman exam Abnormal mammogram Well woman exam Goiter Hypercalciuria Vitamin D deficiency Hypothyroidism History of secondary hyperparathyroidism Hyperparathyroidism Surgical History H/O bilateral salpingo-oophorectomy S/P gastric bypass H/O left breast biopsy H/O: hysterectomy History of bilateral tubal ligation History of appendectomy Family History Family History Mother Uterine cancer Father No problems noted. 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 Sexual orientation: Straight/Heterosexual Gender identity: Female Physical Exam ED Vital Signs: Vital Signs - 24 hr 08/02/23 12:01 08/02/23 19:42 Temperature 97.5 F Pulse Rate 90 85 Respiratory Rate 16 18 Blood Pressure 114/67 118/73 Pulse Oximetry 99 97 Oxygen Delivery Method Room Air Room Air BMI result Body Mass Index 27.5 Const General: cooperative, no acute distress, alert and awake Nutritional Appearance: well nourished Orientation/consciousness: patient oriented x3 Limitations: no limitations HENMT Head: Yes normal to inspection and Yes atraumatic Ears: hearing grossly normal bilaterally and external ears normal General nose exam: Normal external nose present, no nasal discharge noted and no epistaxis Face and sinus: Yes normal facial exam, No abrasion and No laceration Mouth: Normal oral and palatal mucosa present, no drooling and no muffled voice Eyes General: appearance normal, both eyes and all related structures Periorbital: periorbital findings normal Eyelids: Yes eyelids normal Conjunctivae: conjunctivae normal Pupils: Equal, round and reactive pupils present EOM: EOMs intact bilaterally Neck Neck: Yes normal visual inspection, Yes full ROM and Yes no lymphadenopathy Chest Chest palpation & inspection: normal inspection of the chest Resp Effort & Inspection: normal respiratory effort and able to speak in complete sentences GI Inspection: Yes normal to inspection Palpation (GI): Soft to palpation, not firm, nontender and no guarding General: Yes no CVA tenderness Back/Spine/Pelvis Back: no CVA tenderness Neuro General: patient oriented x3 and moves all extremities Cranial nerves: Yes Equal, round and reactive pupils present Cognition (Neuro): normal cognition Motor exam (neuro): 5/5 motor strength present throughout Sensory Exam: Normal double simultaneous stimulation for sensation Coordination: [id number] test normal Extrem General: Yes normal to inspection, Yes full ROM and Yes capillary refill normal Psych Appearance: grossly normal Mental Status: mental status grossly normal Affect: normal affect Attitude: cooperative Thought process: Normal thought process present Thought content: Normal thought content present Insight: Good insight present (Psych) Course Course Course Narrative: RME performed by Luci Gu PA-C. Patient is a 58 year old assigned female at presenting to the emergency department with left flank pain x 3 weeks. Hx of kidney stones. Labs and swabs ordered. Patient placed back in the waiting room pending room availability and results. Medications Administered Discontinued Medications Generic Name Dose Route Start Last Admin Trade Name Nancy PRN Reason Stop Dose Admin Ketorolac Tromethamine 15 mg 08/02/23 20:32 08/02/23 20:49 Ketorolac Tromethamine 15 Mg/Ml Vial IM 08/02/23 20:33 15 mg ONCE ONE Administration Medical Decision Making Medical Decision Making [facility] Narrative: Patient is a 58 year old assigned female at with a history of kidney stones presenting to the emergency department today with left flank pain. Patient's physical exam was unremarkable. Patient's blood work was unremarkable. Patient's urine showed a possible UTI but no urinary symptoms so will await culture before initiating treatment. I explained my physical exam findings as well as all test results to the patient. I answered all questions asked by the patient. Patient received IM Toradol which she stated helped her symptoms significantly. I stressed the importance of the patient taking her medication as prescribed. I stressed the importance of the patient following up with her primary care provider. I stressed the importance of the patient returning to the emergency department immediately if her symptoms were to worsen or if she were to develop any dizziness, shortness of breath, difficulty breathing, chest pain, blurry vision, loss of vision, nausea, vomiting, abdominal pain, fever, chills, back pain, or any other complaints. Patient verbalized agreement and understanding with this treatment plan and discharge. Differential Diagnosis Differential Diagnoses: The differential diagnosis associated with the presentation includes Flank pain Kidney stone Admission/Observation Consideration of admission/observation: Escalation of care including admission/observation considered Patient would have been admitted to the hospital had her work up had any findings where hospital admission was appropriate and her clinical presentation warranted hospital admission. Lab Data [facility] Lab Attestation statement: I reviewed the patient's lab results. My interpretation of these results are in the [facility] Rationale portion of this note. 08/02/23 13:07 08/02/23 13:07 Labs: Lab Results 08/02/23 08/02/23 Range/Units 13:07 15:56 WBC 7.0 (4.8-10.8) X10*3/uL RBC 4.98 (4.20-5.50) X10*6/uL Hgb 12.7 (12.0-16.0) g/dl Hct 38.9 (37.0-47.0) % MCV 78.1 L (80.0-98.0) fL MCH 25.5 L (27.0-33.0) pg MCHC 32.6 (31.0-35.0) g/dl RDW 15.6 (11.0-16.0) % Plt Count 388 (160-400) X10*3/uL MPV 8.3 L (9.4-12.3) fL Immature Gran % (Auto) 0.1 (0.0-0.4) % Neut % (Auto) 48.8 (45-73) % Lymph % (Auto) 41.3 H (20-40) % [place] % (Auto) 7.2 (2-11) % Eos % (Auto) 1.6 (0-4) % Baso % (Auto) 1.0 (0-2) % Lymph # (Auto) 2.9 (1.2-4.9) X10*3/uL [place] # (Auto) 0.5 (0.1-1.2) X10*3/uL Eos # (Auto) 0.1 (0.0-0.4) X10*3/uL Baso # (Auto) 0.1 (0.0-0.2) X10*3/uL Abs Immat Gran (auto) 0.01 (0.00-0.03) X10*3/uL Absolute Neuts (auto) 3.4 (2.0-8.3) x10*3/uL Absolute Nucleated RBC 0.000 (0.0-0.012) X10*3/uL Nucleated RBC % (auto) 0.0 (0.0-0.2) /100WBC Sodium 137 (135-145) mmol/L Potassium 3.5 (3.3-5.1) mmol/L Chloride 106 (96-108) mmol/L Carbon Dioxide 25 (22-29) mmol/L Anion Gap 10 L (12-20) BUN 14 (9-16) mg/dL Creatinine 0.85 (0.5-1.4) mg/dL Estim Creat Clear Calc 73.9 Estimated GFR > 60 Random Glucose 103 (60-115) mg/dL Calcium 9.0 (8.4-10.2) mg/dL Magnesium 2.1 (1.6-2.6) mg/dL Total Bilirubin 0.5 (0.0-1.0) mg/dL AST 23 (5-31) U/L ALT 16 (0-31) U/L Alkaline Phosphatase 120 H (39-117) U/L Total Protein 7.4 (6.5-8.0) g/dL Albumin 4.0 (3.5-5.0) g/dL Urine Color Yellow Urine Appearance Hazy Urine pH 7.5 (5.0-9.0) Ur Specific [place] 1.010 (1.005-1.025) Urine Protein Negative (Neg-Trace) mg/dL Urine Glucose (UA) Negative (Negative) mg/dL Urine Ketones Negative (Negative) mg/dL Urine Blood Negative (Negative) Urine Nitrite Negative (Negative) Ur Leukocyte Esterase Moderate (2+) H (Negative) Urine RBC 0-2 (0-2) /HPF Urine WBC 6-10 H (0-5) /HPF Ur Squamous Epith Cells 3-5 (0-2) /HPF Urine Bacteria Trace (None Seen) Hyaline Casts 0-2 (0-2) /LPF Influenza Type A (PCR) NEGATIVE (Negative) Influenza Type B (PCR) NEGATIVE (Negative) RSV RNA Qual (PCR) NEGATIVE (Negative) SARS-CoV-2 RNA (RT-PCR) NEGATIVE (Negative) Discharge Plan Discharge Clinical Impression: Flank pain Patient Disposition: Home, Self-Care Instructions: Flank Pain (ED) Additional Instructions: Follow up with your primary care provider and given your history of kidney stones, a urologist. Return to the emergency department immediately if your symptoms worsen or if you develop any dizziness, shortness of breath, difficulty breathing, chest pain, blurry vision, loss of vision, nausea, vomiting, abdominal pain, fever, chills, back pain, or any other complaints. Prescriptions: No Action cyanocobalamin (vitamin B-12) 1,000 mcg capsule 1,000 mcg PO DAILY gabapentin 100 mg capsule 100 mg PO TID Qty: 270 0RF cholecalciferol (vitamin D3) 50 mcg (2,000 unit) capsule 2,000 unit PO DAILY hydrochlorothiazide 12.5 mg tablet 12.5 mg PO DAILY 90 Days Qty: 90 3RF lidocaine [Lidoderm] 5 % adhesive patch,medicated 1 patch topical DAILY Qty: 15 0RF Rx Instructions: leave on most painful area for up to 12 hrs cyclobenzaprine 10 mg tablet 10 mg PO TID PRN (Reason: muscle spasm) Qty: 15 0RF cefuroxime axetil 250 mg tablet 250 mg PO BID Qty: 9 0RF ibuprofen 600 mg tablet 600 mg PO QID PRN (Reason: pain) Qty: 30 0RF lidocaine [Lidoderm] 5 % adhesive patch,medicated 1 patch topical DAILY Qty: 15 0RF Rx Instructions: leave on most painful area for up to 12 hrs ibuprofen 600 mg tablet 600 mg PO Q6H PRN (Reason: pain) Qty: 30 0RF acetaminophen [Tylenol] 325 mg capsule 650 mg PO Q6H PRN (Reason: pain) Qty: 30 0RF clonazepam 1 mg tablet 1 mg PO BEDTIME Rx Instructions: administer 30 minutes before bedtime bupropion HCl 150 mg tablet extended release 24 hr 150 mg PO QAM pantoprazole 40 mg tablet,delayed release (DR/EC) 40 mg PO DAILY diltiazem HCl 180 mg capsule,extended release 24hr 180 mg PO DAILY Flovent HFA 110 mcg/actuation HFA aerosol inhaler 1 puff PO BID hydroxyzine pamoate 50 mg capsule 50 mg PO TID PRN (Reason: anxiety) losartan 50 mg tablet 50 mg PO DAILY levothyroxine 25 mcg tablet 25 mcg PO DAILY topiramate 50 mg tablet 50 mg PO QID riboflavin (vitamin B2) [Vitamin B-2] 100 mg tablet 200 mg PO BID zolpidem 10 mg tablet 10 mg PO BEDTIME mirtazapine 30 mg tablet 30 mg PO BEDTIME pyridoxine (vitamin B6) 100 mg tablet 100 mg PO DAILY 90 Days Qty: 90 1RF estradiol 0.01 % (0.1 mg/gram) cream See Rx Instructions vaginal 3XW 30 Days Qty: 42.5 0RF Rx Instructions: vaginally 3 times a week; pea sized amount to urethra 3 times a week Referrals: [facility] [Provider Group] (Call to establish and follow up with a urologist given your current flank pain and history of kidney stones. ) Nupur Weir, [employer] [Primary Care Provider] - Stand Alone Forms: Work/School Release Interventions: ED Discharge Assessment Last Done: 08/02/23 20:52 Discharge Date/Time: 08/02/23 20:53 Print Language: Romansh
[2023-08-02 13:13] LABS: MANUAL DIFF FLAG NO
[2023-08-02 13:15] LABS: Basophils Absolute Auto 0.1 X10*3/uL (0.0-0.2); Eosinophils Absolute Auto 0.1 X10*3/uL (0.0-0.4); Eosinophils Percent Auto 1.6 % (0-4); Hematocrit 38.9 % (37.0-47.0); Hemoglobin 12.7 g/dl (12.0-16.0); Imm Gran Abs Auto 0.01 X10*3/uL (0.00-0.03); Imm Gran Pct Auto 0.1 % (0.0-0.4); Lymphocytes Absolute Auto 2.9 X10*3/uL (1.2-4.9); Lymphocytes Percent Auto 41.3 % (20-40); Mean Corpuscular HGB Conc 32.6 g/dl (31.0-35.0); Mean Corpuscular Hemoglobin 25.5 pg (27.0-33.0); Mean Corpuscular Volume 78.1 fL (80.0-98.0); Mean Platelet Volume 8.3 fL (9.4-12.3); Monocytes Absolute Auto 0.5 X10*3/uL (0.1-1.2); Monocytes Percent Auto 7.2 % (2-11); Neutrophils Absolute Auto 3.4 x10*3/uL (2.0-8.3); Neutrophils Percent Auto 48.8 % (45-73); Platelet Count 388 X10*3/uL (160-400); Red Blood Count 4.98 X10*6/uL (4.20-5.50); Red Cell Distribution Width 15.6 % (11.0-16.0)
[2023-08-02 13:32] LABS: Alanine Aminotransferase 16 U/L (0-31); Alkaline Phosphatase 120 U/L (39-117); Anion Gap 10 (12-20); Aspartate Amino Transferase 23 U/L (5-31); Bilirubin Total 0.5 mg/dL (0.0-1.0); Blood Urea Nitrogen 14 mg/dL (9-16); Carbon Dioxide 25 mmol/L (22-29); Chloride 106 mmol/L (96-108); Creatinine Clr Calc Pharmacy 73.9; Estimated Glomerular Filt Rate > 60; Glucose Random 103 mg/dL (60-115); Magnesium 2.1 mg/dL (1.6-2.6); Potassium 3.5 mmol/L (3.3-5.1); Sodium 137 mmol/L (135-145); Total Protein 7.4 g/dL (6.5-8.0)
[2023-08-02 16:14] LABS: Appearance Urine Hazy; Color Urine Yellow; Glucose Urine UA Negative (Negative); Leukocyte Esterase Urine Moderate (2+) (Negative); Nitrite Urine Negative (Negative); PH 7.5 (5.0-9.0); UMIC TRIGGER UACC YES; Urine Blood Negative (Negative); Urine Ketones Negative (Negative); Urine Protein Negative (Neg-Trace)
[2023-08-02 16:21] LABS: Bacteria Urine Trace (None Seen); Hyaline Casts Urine 0-2 /LPF (0-2); RBC Urine 0-2 /HPF (0-2); UACC Culture Trigger YES
[2023-08-02 17:38] LABS: Influenza A PCR NEGATIVE (Negative); Influenza B PCR NEGATIVE (Negative); Resp Syncy Virus RNA Qual PCR NEGATIVE (Negative); SARS COV2 PCR INHOUSE NEGATIVE (Negative)
[2023-08-02 19:42] VITALS: BP 118/73; PULSE 85; RESP 18; O2SAT 97
[2023-08-02] MEDS: Ketorolac Tromethamine 15 MG/ML VIAL IM (20:49)
== END 2023-08-02 20:53 | disposition home or self-care (01) ==
PROVIDERS: Physician Assistant Medical; Emergency Provider Student in an Organized Health Care Education/Training Program; PCP Nurse Practitioner Primary Care
DX: R10.9 Unspecified abdominal pain (principal); M54.50 Low back pain, unspecified; Z20.822 Contact with and (suspected) exposure to COVID-19; Z20.828 Contact with and (suspected) exposure to other viral communicable diseases; Z79.899 Other long term (current) drug therapy
CPT/HCPCS: 0241U; 36415; 80053; 81001; 83735; 85025; 87086; 96372; 99284; J1885

== ENCOUNTER 2023-08-12 15:57 | Emergency (ER) | payer MEDICAID, SELFPAY ==
[2023-08-12 16:30] VITALS: BP 115/80; PULSE 89; RESP 20; TEMP 36.6; O2SAT 99; BMI 27.5
[2023-08-12 21:22] VITALS: BP 112/68; PULSE 66; RESP 16; TEMP 36.7; O2SAT 96
[2023-08-12 21:48] LABS: Appearance Urine Clear; Color Urine Dark Yellow; Glucose Urine UA Negative (Negative); Leukocyte Esterase Urine Moderate (2+) (Negative); Nitrite Urine Negative (Negative); Specific Gravity - Urine 1.015 (1.005-1.025); UMIC TRIGGER UACC YES; Urine Blood Negative (Negative); Urine Ketones Trace mg/dL (Negative); Urine Protein Negative (Neg-Trace)
[2023-08-12 21:52] LABS: Bacteria Urine 1+ (None Seen); Hyaline Casts Urine 0-2 /LPF (0-2); RBC Urine 0-2 /HPF (0-2); UACC Culture Trigger YES; WBC Urine 21-50 /HPF (0-5)
--- NOTE | 2023-08-12 22:35 | ED.FEMALEGU ---
HPI - Female Genitourinary General Chief complaint: Urogenital-Female Stated complaint: flank pain/back pain Time Seen by Provider: 08/12/23 21:52 Source: patient and RN notes reviewed Mode of arrival: ambulatory Limitations: no limitations History of Present Illness HPI Narrative: Pt is a 58yo female who presents to the ED with 3 wks of left flank pain. Pt states the pain is constant pressure and 10/10. She reports associated burning with urination and increased frequency of urination but denies any blood in the urine. She notes no worsening factors and states that propping something under her back on the left side helps alleviate the pain. She denies any fevers, chills, n/v, or abdominal pain. Pt states a hx of cholecystectomy and appendectomy. Related Data Home Medications Medication Instructions Recorded Confirmed cyanocobalamin (vitamin B-12) 1,000 mcg PO DAILY 07/05/20 06/10/23 1,000 mcg capsule bupropion HCl 150 mg 24 hr tablet, 150 mg PO QAM 11/24/21 06/10/23 extended release clonazepam 1 mg tablet 1 mg PO BEDTIME 11/24/21 06/10/23 diltiazem HCl 180 mg 180 mg PO DAILY 11/24/21 06/10/23 capsule,extended release 24 hr fluticasone propionate 110 1 puff PO BID 11/24/21 06/10/23 mcg/actuation HFA aerosol inhaler (Flovent HFA) hydroxyzine pamoate 50 mg capsule 50 mg PO TID PRN anxiety 11/24/21 06/10/23 pantoprazole 40 mg tablet,delayed 40 mg PO DAILY 11/24/21 06/10/23 release cholecalciferol (vitamin D3) 50 2,000 unit PO DAILY 11/26/21 06/10/23 mcg (2,000 unit) capsule losartan 50 mg tablet 50 mg PO DAILY blood pressure 11/24/22 06/10/23 levothyroxine 25 mcg tablet 25 mcg PO DAILY 01/08/23 06/10/23 riboflavin (vitamin B2) 100 mg 200 mg PO BID 01/08/23 06/10/23 tablet (Vitamin B-2) topiramate 50 mg tablet 50 mg PO QID 01/08/23 06/10/23 mirtazapine 30 mg tablet 30 mg PO BEDTIME 03/10/23 06/10/23 zolpidem 10 mg tablet 10 mg PO BEDTIME 03/10/23 06/10/23 Previous Rx's Medication Instructions Recorded gabapentin 100 mg capsule 100 mg PO TID #270 caps 04/15/21 cyclobenzaprine 10 mg tablet 10 mg PO TID PRN muscle spasm #15 11/25/22 tabs lidocaine 5 % topical patch 1 patch topical DAILY #15 ea 11/25/22 (Lidoderm) hydrochlorothiazide 12.5 mg tablet 12.5 mg PO DAILY 90 days #90 tabs 01/13/23 cefuroxime axetil 250 mg tablet 250 mg PO BID #9 tabs 03/03/23 ibuprofen 600 mg tablet 600 mg PO QID PRN pain #30 tabs 03/07/23 lidocaine 5 % topical patch 1 patch topical DAILY #15 ea 03/07/23 (Lidoderm) pyridoxine (vitamin B6) 100 mg 100 mg PO DAILY 90 days #90 tabs 03/11/23 tablet acetaminophen 325 mg capsule 650 mg (2 x 325 mg) PO Q6H PRN 05/07/23 (Tylenol) pain #30 caps ibuprofen 600 mg tablet 600 mg PO Q6H PRN pain #30 tabs 05/07/23 estradiol 0.01% (0.1 mg/gram) See Rx Instructions vaginal 3XW 30 06/10/23 vaginal cream days #42.5 grams cefuroxime axetil 250 mg tablet 250 mg PO Q12H #14 tabs 08/12/23 Allergies Allergy/AdvReac Type Severity Reaction Status Date / Time ondansetron [From ZOFRAN] Allergy Unknown per H&P Verified 06/10/23 12:03 sumatriptan [From IMITREX] Allergy Unknown RASH FROM Verified 06/10/23 12:03 TABLET NOT INJECTION promethazine [From PHENERGAN] AdvReac Severe DYSTONIA Verified 06/10/23 12:03 Review of Systems Constitutional: Constitutional: Denies chills, Denies fever(s) and Denies headache(s) ENT: Denies headache(s) Cardiovascular: Cardiovascular: Denies chest pain and Denies dyspnea Respiratory: Respiratory: Denies dyspnea Gastrointestinal: Gastrointestinal: Denies abdominal pain, Denies constipation, Denies diarrhea, Denies nausea and Denies vomiting Genitourinary: Genitourinary: Reports dysuria, Reports flank pain (left) and Reports urinary urgency Neurologic: Denies headache(s) [facility] Past Medical History Medical History Recurrent UTI Flank pain Dysuria Swelling of joint, ankle, right Swelling of right foot Right patella fracture Well woman exam Abnormal mammogram Well woman exam Goiter Hypercalciuria Vitamin D deficiency Hypothyroidism History of secondary hyperparathyroidism Hyperparathyroidism Surgical History H/O bilateral salpingo-oophorectomy S/P gastric bypass H/O left breast biopsy H/O: hysterectomy History of bilateral tubal ligation History of appendectomy Family History Family History Mother Uterine cancer Father No problems noted. 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 Sexual orientation: Straight/Heterosexual Gender identity: Female Physical Exam Vital Signs: Vital Signs: Last Vital Signs Temp 98.0 F 08/12/23 21:22 Pulse 66 08/12/23 21:22 Resp 16 08/12/23 21:22 BP 112/68 08/12/23 21:22 Pulse Ox 96 08/12/23 21:22 O2 Del Method Room Air 08/12/23 21:22 BMI result Body Mass Index 27.5 Const: General: cooperative, no acute distress and alert Orientation/consciousness: patient oriented x3 HEENT: Head: Yes normal to inspection Ears: hearing grossly normal bilaterally General nose exam: Normal external nose present Eyes: General: appearance normal, both eyes and all related structures Resp: Effort & Inspection: normal respiratory effort and able to speak in complete sentences Cardio: Rate: regular rate Rhythm: regular rhythm GI: Inspection: Yes normal to inspection Palpation (GI): Soft to palpation and nontender : General: Yes CVA tenderness on the left Back/Spine/Pelvis: Back: CVA tenderness Neuro: General: patient oriented x3 and moves all extremities Medical Decision Making Medical Decision Making MDM Narrative: 58-year-old female presents for evaluation of left flank pain and symptoms. She has no leukocytosis, her vital signs are within normal limits. Clinically she has positive CVA tenderness, therefore will treat for complicated UTI/pyelonephritis with 7 days of cefuroxime. The patient is requesting a dose of parental antibiotics here as her symptoms started 3 weeks ago. Will give her a 1 time dose of ceftriaxone 500 mg IM Differential Diagnosis Differential Diagnoses: The differential diagnosis associated with the presentation includes (pyelonephritis, uncomplicated UTI, muscle strain, PID, nephrolithiasis) Lab Data MDM Lab Attestation statement: I reviewed the patient's lab results. And labs from previous visit due to air, however she has no leukocytosis with a white count of 6.6, no left shift. She has a chronic microcytic anemia consistent with baseline patient's potassium is just below normal at 3.2, renal function within normal limits. No other significant abnormalities Labs: Lab Results 08/12/23 Range/Units 21:41 Urine Color Dark Yellow Urine Appearance Clear Urine pH 6.0 (5.0-9.0) Ur Specific [place] 1.015 (1.005-1.025) Urine Protein Negative (Neg-Trace) mg/dL Urine Glucose (UA) Negative (Negative) mg/dL Urine Ketones Trace (Negative) mg/dL Urine Blood Negative (Negative) Urine Nitrite Negative (Negative) Ur Leukocyte Esterase Moderate (2+) H (Negative) Urine RBC 0-2 (0-2) /HPF Urine WBC 21-50 H (0-5) /HPF Ur Squamous Epith Cells 6-10 (0-2) /HPF Urine Bacteria 1+ (None Seen) Hyaline Casts 0-2 (0-2) /LPF Discharge Plan Discharge Clinical Impression: Acute pyelonephritis Patient Disposition: Home, Self-Care Instructions: Kidney Infection (ED) Additional Instructions: Your urine appears to show an infection. Your blood work and vital signs have been normal We are treating you for a kidney infection Your given a dose of antibiotic in the emergency department Take the prescription antibiotic twice daily for 7 days incompletely entire course Return for new or worsening symptoms, especially if you develop a fever Prescriptions: New cefuroxime axetil 250 mg tablet 250 mg PO Q12H Qty: 14 0RF No Action cyanocobalamin (vitamin B-12) 1,000 mcg capsule 1,000 mcg PO DAILY gabapentin 100 mg capsule 100 mg PO TID Qty: 270 0RF cholecalciferol (vitamin D3) 50 mcg (2,000 unit) capsule 2,000 unit PO DAILY hydrochlorothiazide 12.5 mg tablet 12.5 mg PO DAILY 90 Days Qty: 90 3RF lidocaine [Lidoderm] 5 % adhesive patch,medicated 1 patch topical DAILY Qty: 15 0RF Rx Instructions: leave on most painful area for up to 12 hrs cyclobenzaprine 10 mg tablet 10 mg PO TID PRN (Reason: muscle spasm) Qty: 15 0RF cefuroxime axetil 250 mg tablet 250 mg PO BID Qty: 9 0RF ibuprofen 600 mg tablet 600 mg PO QID PRN (Reason: pain) Qty: 30 0RF lidocaine [Lidoderm] 5 % adhesive patch,medicated 1 patch topical DAILY Qty: 15 0RF Rx Instructions: leave on most painful area for up to 12 hrs ibuprofen 600 mg tablet 600 mg PO Q6H PRN (Reason: pain) Qty: 30 0RF acetaminophen [Tylenol] 325 mg capsule 650 mg PO Q6H PRN (Reason: pain) Qty: 30 0RF clonazepam 1 mg tablet 1 mg PO BEDTIME Rx Instructions: administer 30 minutes before bedtime bupropion HCl 150 mg tablet extended release 24 hr 150 mg PO QAM pantoprazole 40 mg tablet,delayed release (DR/EC) 40 mg PO DAILY diltiazem HCl 180 mg capsule,extended release 24hr 180 mg PO DAILY Flovent HFA 110 mcg/actuation HFA aerosol inhaler 1 puff PO BID hydroxyzine pamoate 50 mg capsule 50 mg PO TID PRN (Reason: anxiety) losartan 50 mg tablet 50 mg PO DAILY levothyroxine 25 mcg tablet 25 mcg PO DAILY topiramate 50 mg tablet 50 mg PO QID riboflavin (vitamin B2) [Vitamin B-2] 100 mg tablet 200 mg PO BID zolpidem 10 mg tablet 10 mg PO BEDTIME mirtazapine 30 mg tablet 30 mg PO BEDTIME pyridoxine (vitamin B6) 100 mg tablet 100 mg PO DAILY 90 Days Qty: 90 1RF estradiol 0.01 % (0.1 mg/gram) cream See Rx Instructions vaginal 3XW 30 Days Qty: 42.5 0RF Rx Instructions: vaginally 3 times a week; pea sized amount to urethra 3 times a week
[2023-08-12 22:58] VITALS: BP 115/80; PULSE 77; RESP 16; O2SAT 99
[2023-08-12] MEDS: cefTRIAXone sodium 500 MG, Lidocaine HCl 1 % MPF 1 ML IM (22:58)
== END 2023-08-12 23:06 | disposition home or self-care (01) ==
PROVIDERS: Registered Nurse Emergency; Emergency Provider Internal Medicine; PCP Nurse Practitioner Primary Care
DX: N10 Acute pyelonephritis (principal); M54.50 Low back pain, unspecified; R10.9 Unspecified abdominal pain; R30.0 Dysuria; Z79.899 Other long term (current) drug therapy
CPT/HCPCS: 36415; 80053; 81001; 85025; 87086; 96372; 99284; J0696

== ENCOUNTER 2023-08-31 09:18 | Outpatient (REF) | payer MEDICAID, SELFPAY ==
--- NOTE | ~2023-08-31 | US_ITS ---
EXAMINATION: US RETROPERITONEAL LIMITED (RENAL ONLY) CLINICAL INFORMATION: Calculus of kidney. COMPARISON: CT abdomen and pelvis 03/03/2023. Ultrasound kidneys and bladder 03/13/2023. Ultrasound abdomen complete 12/07/2022. TECHNIQUE: Real-time imaging of the kidneys. Limited visualization due to bowel gas. FINDINGS: RIGHT KIDNEY: 10.8 x 5.1 x 5.2 cm (SAG x AP x TRV). Mid pole 0.3 cm calculus. Upper pole 0.3 cm calculus. No hydronephrosis. Renal cortical thickness is normal. Limited visualization. LEFT KIDNEY: 11.2 x 5.2 x 4.2 cm (SAG x AP x TRV). No hydronephrosis. No renal calculi. Renal cortical thickness is normal. Limited visualization. US/US renal BI IMPRESSION: Right renal nonobstructive calculi. No hydronephrosis.
== END 2023-08-31 09:19 | disposition home or self-care (01) ==
LOC: HO.US 09:18
PROVIDERS: PCP Nurse Practitioner Primary Care; Visit Provider Nurse Practitioner Family
DX: N20.0 Calculus of kidney (principal)
CPT/HCPCS: 76775

== ENCOUNTER 2023-09-09 10:04 | Outpatient (REF) | payer MEDICAID, SELFPAY ==
[2023-09-09 11:47] LABS: Alanine Aminotransferase 19 U/L (0-31); Alkaline Phosphatase 103 U/L (39-117); Anion Gap 11 (12-20); Aspartate Amino Transferase 25 U/L (5-31); Bilirubin Total 0.7 mg/dL (0.0-1.0); Blood Urea Nitrogen 11 mg/dL (9-16); Calcium 9.2 mg/dL (8.4-10.2); Carbon Dioxide 28 mmol/L (22-29); Chloride 106 mmol/L (96-108); Estimated Glomerular Filt Rate > 60; Glucose Random 104 mg/dL (60-115); Phosphorus 2.9 mg/dL (2.7-4.5); Potassium 3.6 mmol/L (3.3-5.1); Sodium 141 mmol/L (135-145); Total Protein 7.1 g/dL (6.5-8.0)
[2023-09-09 12:04] LABS: Free T4 (Free Thyroxine) 1.05 ng/dL (0.71-1.85); Vitamin D 25-OH Total 66.5 ng/mL (>30)
== END 2023-09-09 10:05 | disposition home or self-care (01) ==
LOC: HO.LAB 10:04
PROVIDERS: PCP Nurse Practitioner Primary Care; Visit Provider Internal Medicine
DX: E04.9 Nontoxic goiter, unspecified (principal); M81.0 Age-related osteoporosis without current pathological fracture; E55.9 Vitamin D deficiency, unspecified
CPT/HCPCS: 36415; 80053; 82306; 84100; 84439; 84443

== ENCOUNTER 2023-09-10 09:18 | Outpatient (AMB) | payer MEDICAID, SELFPAY ==
--- NOTE | 2023-09-10 09:46 | A.OFFVIS_ITS ---
Intake Intake Visit Reasons: 2m/US Intake Note: Patient is present for follow up recurrent uti/nephrolithiasis Urology Medications: Estrace Cream, Vitamin B 6 Blood Thinner: none PVR: 0ml's [employer] Required: No Accompanied by: Self / Same As Patient Allergies ondansetron [From ZOFRAN] Allergy (Unknown, Verified 09/12/23 21:11) per H&P sumatriptan [From IMITREX] Allergy (Unknown, Verified 09/12/23 21:11) RASH FROM TABLET NOT INJECTION promethazine [From PHENERGAN] Adverse Reaction (Severe, Verified 09/12/23 21:11) DYSTONIA Medication List - Last Reconciled 09/12/23 by KYLER Bhatia-PEYMAN acetaminophen (Tylenol) 650 mg (2 x 325 mg) PO Q6H PRN bupropion HCl 150 mg PO QAM cholecalciferol (vitamin D3) 2,000 units PO DAILY clonazepam 1 mg PO BEDTIME cyanocobalamin (vitamin B-12) 1,000 mcg PO DAILY cyclobenzaprine 10 mg PO TID PRN diltiazem HCl 180 mg PO DAILY estradiol 0.01%(0.1mg/gram) vaginally 3 times a week; pea sized amount to urethra 3 times a week 30 days fluticasone propionate 110 mcg/actuation (Flovent HFA) 1 puff PO BID gabapentin 100 mg PO TID hydrochlorothiazide 12.5 mg PO DAILY 90 days hydroxyzine pamoate 50 mg PO TID PRN ibuprofen 600 mg PO QID PRN ibuprofen 600 mg PO Q6H PRN levothyroxine 25 mcg PO DAILY lidocaine 5% (Lidoderm) 1 patch topical DAILY lidocaine 5% (Lidoderm) 1 patch topical DAILY losartan 50 mg PO DAILY mirtazapine 30 mg PO BEDTIME pantoprazole 40 mg PO DAILY pyridoxine (vitamin B6) 100 mg PO DAILY 90 days riboflavin (vitamin B2) (Vitamin B-2) 200 mg PO BID topiramate 50 mg PO QID zolpidem 10 mg PO BEDTIME HPI HPI Comments History of Present Illness Details Laura is a pleasant 58 year old female patient of Dr. Weir. She has a past medical history of goiter, hypercalciuria interstitial cystitis, BV, osteoporosis, and hyperthyroidism. She presents to the office today for follow-up. When asked patient reports to be doing and feeling well. She reports having seeked emergency room care last month for left-sided pain in symptoms. She had no leukocytosish and her vital signs were within normal limits. However, she had positive CVA tenderness, therefore was treated for complicated UTI/pyelonephritis with 7 days of cefuroxime. Urine culture was negative. Renal ultrasound results obtained through ER visit reviewed with the patient today. Right mid pole 0.3 cm calculus. Upper 0.3 cm calculus. No hydronephrosis. Left kidney with no hydronephrosis or calculi noted. When asked she reports having finished antibiotic therapy approximately 2 weeks ago however continues with intermittent episodes of left sided flank pain and dysuria. In office urinalysis results reviewed with the patient today. PVR 0 mL. No CVA tenderness noted bilaterally. She otherwise denies urinary urgency, urinary frequency, incontinence, nocturia, hematuria, changes to urinary stream, fever, and or chills. Patient reports compliance with Estrace cream. Discussed further assessment evaluation with urine culture and or microgen testing. She otherwise offers no other issues or concerns at this time. [facility] Medical History (Updated 09/12/23 @ 21:30 by [facility]) Flank pain Dysuria Recurrent UTI Swelling of joint, ankle, right Swelling of right foot Right patella fracture Well woman exam Abnormal mammogram Well woman exam Goiter Hypercalciuria Vitamin D deficiency Hypothyroidism History of secondary hyperparathyroidism Hyperparathyroidism Surgical History H/O bilateral salpingo-oophorectomy S/P gastric bypass H/O left breast biopsy H/O: hysterectomy History of bilateral tubal ligation History of appendectomy Family History Mother Uterine cancer Father No problems noted. 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 Sexual orientation: Straight/Heterosexual Gender identity: Female Female Reproductive History Menstrual Age of Menarche: 13 Review of Systems Const All systems reviewed & are unremarkable except as noted in HPI and below Reports as per HPI Eyes Reports no additional complaints ENT Reports no additional complaints Card Reports no additional complaints Resp Reports no additional complaints GI Reports no additional complaints Reports as per HPI Musc Reports as per HPI Neuro Reports no additional complaints Psych Reports anxiety and Reports depression Endo Reports as per HPI Aman/Lymph Reports no additional complaints Aller/Immun Reports no additional complaints Physical Exam Const General: cooperative, healthy appearing, comfortable, no acute distress, well developed, alert and awake Orientation/consciousness: patient oriented x3 Limitations: no limitations HEENT Head: Yes normal to inspection, Yes normocephalic and Yes atraumatic Ears: hearing grossly normal bilaterally Eyes General: appearance normal, both eyes and all related structures Neck Neck: Yes normal visual inspection and Yes trachea midline Chest Chest palpation & inspection: normal inspection of the chest Resp Effort & Inspection: normal respiratory effort and able to speak in complete sentences Cardio Rate: regular rate GI Inspection: Yes normal to inspection General: Yes no CVA tenderness Back/Spine/Pelvis Back: no CVA tenderness Skin General skin exam: no rashes or lesions noted Neuro General: patient oriented x3 Extrem General: Yes normal to inspection Psych Appearance: grossly normal and well kempt Mental Status: mental status grossly normal Speech and movement: Normal speech and movement present and Clear speech present Affect: normal affect Attitude: cooperative Thought process: Normal thought process present Thought content: Normal thought content present Insight: Fair insight present (Psych) Judgement: Fair judgement present (Psych) Office Procedures Post Void Residual Post Residual Void Post Void Residual (PVR): 0 [id number] Void Residual by ultrasound Results AMB Urinalysis, Automated UA Leukoctes 15 Ynes/uL Last Edit by Revver on 09/10/23 10:10 UA Nitrite Negative Last Edit by Revver on 09/10/23 10:10 UA Urobilinogen 0.2 mg/dL Last Edit by Revver on 09/10/23 10:10 UA Protein 15 mg/dL Last Edit by Revver on 09/10/23 10:10 UA pH 8.0 Last Edit by Revver on 09/10/23 10:10 UA Blood 0 Christiano/uL Last Edit by Revver on 09/10/23 10:10 UA Specific [place] 1.010 Last Edit by Revver on 09/10/23 10:10 UA Ketone Negative Last Edit by Lara Hull on 09/10/23 10:10 UA Bilirubin 1 mg/dL Last Edit by Lara Hull on 09/10/23 10:10 UA Glucose 0 mg/dL Last Edit by Lara Hull on 09/10/23 10:10 Results Reviewed Results Reviewed: Laboratory Last Values Urine pH (Auto) 8.0 09/10/23 10:09 Specific [place] (Auto) 1.010 09/10/23 10:09 Urine Protein (Auto) 15 mg/dL 09/10/23 10:09 Glucose (UA)(Auto) 0 mg/dL 09/10/23 10:09 Urine Ketones (Auto) Negative 09/10/23 10:09 Urine Blood (Auto) 0 Christiano/uL 09/10/23 10:09 Urine Nitrite (Auto) Negative 09/10/23 10:09 Urine Bilirubin (Auto) 1 mg/dL 09/10/23 10:09 Urine Urobilinogen (Auto) 0.2 mg/dL 09/10/23 10:09 Leukocyte Esterase (Auto) 15 Ynes/uL 09/10/23 10:09 Date of Service: 08/31/23 EXAMINATION: US RETROPERITONEAL LIMITED (RENAL ONLY) FINDINGS: RIGHT KIDNEY: 10.8 x 5.1 x 5.2 cm (SAG x AP x TRV). Mid pole 0.3 cm calculus. Upper pole 0.3 cm calculus. No hydronephrosis. Renal cortical thickness is normal. Limited visualization. LEFT KIDNEY: 11.2 x 5.2 x 4.2 cm (SAG x AP x TRV). No hydronephrosis. No renal calculi. Renal cortical thickness is normal. Limited visualization. IMPRESSION: Right renal nonobstructive calculi. No hydronephrosis. Assessment & Plan Assessment & Plan (1) Nephrolithiasis: Code(s): N20.0 - Calculus of kidney (2) Dysuria: Code(s): R30.0 - Dysuria (3) Flank pain: Code(s): R10.9 - Unspecified abdominal pain Plan In office urinalysis results reviewed with the patient today; as noted above; will send for urine culture Information provided for insurance company to further assess approval for microgen Continue Estrace cream as discussed and prescribed. Discussed seeking medical treatment if symptoms persist and/or worsen. Discussed, educated, and stressed the importance of drinking plenty of water daily. Will await results for treatment. Discussed at length potential causes for lower urinary tract symptoms patient is experiencing. Follow-up in 1 month with PVR; or sooner with any issues, concerns, and or questions. Orders: Orders AMB Post Void Residual by ultrasound 09/10/23 R32 - Unspecified urinary incontinence Urine Culture 09/10/23 N39.0 - Urinary tract infection, site not specified AMB Urinalysis Automated 09/10/23 Z13.9 - Encounter for screening, unspecified Medications: Discontinued ibuprofen Discontinued Reason: Duplicate 600 mg PO Q6H PRN 30 tabs 0RF pain Patient Instructions: The patient had an opportunity to ask questions regarding the treatment plan. All questions were answered. Physical exam, labs, and imaging were discussed and reviewed in detail. As well as risks, benefits, and discussion of treatment choices. No major barriers to understanding were identified. The patient expressed understanding and agreement with the above treatment plan. The patient was made aware they should contact our office by phone for worsening of their current condition, the appearance of new symptoms, or with any questions or concerns. Compliance is encouraged with any medications and follow up testing that is ordered. It is a privilege to be allowed the opportunity to participate in? your urological care.? Again, if you have any questions or concerns If you have any questions or concerns please do not hesitate to contact me. The office is [phone]. This note is constructed using voice recognition software. While every effort has been made to ensure accuracy psychiatry adult physician errors may have been included. Yours sincerely, JEANETH Bhatia Coding Level of Care Code Est Pt Level 3 (35123) Diagnoses Nephrolithiasis N20.0 Dysuria R30.0 Flank pain R10.9 CPT Codes Post Residual Void - PVR CPT Code: 27035-Fwik Void Residual by ultrasound ([id number])
== END 2023-09-10 10:13 | disposition home or self-care (01) ==
PROVIDERS: PCP Nurse Practitioner Primary Care; Visit Provider Nurse Practitioner Family
DX: N20.0 Calculus of kidney (principal); R30.0 Dysuria; R10.9 Unspecified abdominal pain
CPT/HCPCS: 99213

== ENCOUNTER → 2023-09-10 09:18 | Outpatient (BNVA) | payer MEDICAID, SELFPAY | PROVIDERS: PCP Nurse Practitioner Primary Care; Visit Provider Nurse Practitioner Family ==

== ENCOUNTER 2023-09-10 09:51 | Outpatient (REF) | payer MEDICAID, SELFPAY ==
[2023-09-15 15:13] LABS: N-Telopeptide 77 (see note); NTXCreaRU 61 mg/dL (20-275)
== END 2023-09-10 09:52 | disposition home or self-care (01) ==
LOC: HO.LNP 09:51
PROVIDERS: Visit Provider Internal Medicine
DX: M81.0 Age-related osteoporosis without current pathological fracture (principal); N20.0 Calculus of kidney; R30.0 Dysuria; R10.9 Unspecified abdominal pain; R32 Unspecified urinary incontinence; N39.0 Urinary tract infection, site not specified; Z79.899 Other long term (current) drug therapy
CPT/HCPCS: 51798; 81003; 82523; 99212

== ENCOUNTER 2023-09-11 11:22 | Outpatient (REF) | payer MEDICAID, SELFPAY ==
[2023-09-11 12:00] LABS: Creatinine, mg/dL 76.22
[2023-09-11 14:13] LABS: Creatinine, 24Hr Urine 1.4 G/Day (1.0-2.0); Total Volume 24 Hour Urine 1900 mL
[2023-09-13 17:54] LABS: Calcium, 24 Hr Urine 268 mg/24 h; Calcium/Creatinine Ratio 176 mg/g creat (30-275); Creatinine 24Hr Urine 1.52 g/24 h (0.50-2.15)
== END 2023-09-11 11:23 | disposition home or self-care (01) ==
LOC: HO.LNP 11:22
PROVIDERS: Visit Provider Internal Medicine
DX: M81.0 Age-related osteoporosis without current pathological fracture (principal)
CPT/HCPCS: 82340; 82570

== ENCOUNTER 2023-09-15 10:07 | Outpatient (AMB) | payer MEDICAID, SELFPAY ==
--- OUTSIDE RECORDS SUMMARY | 2023-09-15 10:09 | XMS_ITS | Patient Health Record ---
Author Name Unknown Organization [facility] Address [address] [place] [address] Care Team Providers Care Deputy District Customs Director Name Role Phone MICHAEL YANEZ N.P. Primary Care Provider Joselin Langley Jr Unavailable ALLERGIES No Known Allergies RESULTS Component Value Reference Range Notes Complete Blood Count no Diff Reviewed date:11/12/2022 01:32:57 PM Interpretation: Performing Lab:[facility], [address] [place] [phone] Notes/Report: White Blood Count 6.2 4.8-10.8 X10*3/uL Red Blood Count 5.17 4.20-5.50 X10*6/uL Hemoglobin 13.2 12.0-16.0 g/dl Hematocrit 40.8 37.0-47.0 % Mean Corpuscular Volume 78.9 80.0-98.0 fL Mean Corpuscular Hemoglobin 25.5 27.0-33.0 pg Mean Corpuscular HGB Conc 32.4 31.0-35.0 g/dl Red Cell Distribution Width 16.2 11.0-16.0 % Platelet Count 374 160-400 X10*3/uL Mean Platelet Volume 8.2 9.4-12.3 fL NRBC Pct Auto 0.0 0.0-0.2 /100WBC NRBC Abs Auto 0.000 0.0-0.012 X10*3/uL Liver Panel Reviewed date:11/13/2022 07:46:07 AM Interpretation: Performing Lab:[facility], [address] [place] [phone] Notes/Report: Bilirubin Total 0.7 0.0-1.0 mg/dL Bilirubin Direct < 0.2 0.0-0.5 mg/dL Aspartate Amino Transferase 19 5-31 U/L Alanine Aminotransferase 13 0-31 U/L Total Protein 7.0 6.5-8.0 g/dL Albumin Level 4.0 3.5-5.0 g/dL Alkaline Phosphatase 139 39-117 U/L Lipase Reviewed date:11/13/2022 07:46:00 AM Interpretation: Performing Lab:[facility], [address] [place] [phone] Notes/Report: Lipase 18 8-78 U/L Complete Blood Count no Diff Reviewed date:12/03/2022 08:57:38 AM Interpretation: Performing Lab:[facility], [address] [place] [phone] Notes/Report: White Blood Count 6.9 4.8-10.8 X10*3/uL Red Blood Count 4.86 4.20-5.50 X10*6/uL Hemoglobin 12.6 12.0-16.0 g/dl Hematocrit 39.4 37.0-47.0 % Mean Corpuscular Volume 81.1 80.0-98.0 fL Mean Corpuscular Hemoglobin 25.9 27.0-33.0 pg Mean Corpuscular HGB Conc 32.0 31.0-35.0 g/dl Red Cell Distribution Width 16.5 11.0-16.0 % Platelet Count 403 160-400 X10*3/uL Mean Platelet Volume 8.2 9.4-12.3 fL NRBC Pct Auto 0.0 0.0-0.2 /100WBC NRBC Abs Auto 0.000 0.0-0.012 X10*3/uL Liver Panel Reviewed date:12/03/2022 08:57:30 AM Interpretation: Performing Lab:[address] [phone] Notes/Report: Bilirubin Total 0.7 0.0-1.0 mg/dL Bilirubin Direct 0.2 0.0-0.5 mg/dL Aspartate Amino Transferase 15 5-31 U/L Alanine Aminotransferase 11 0-31 U/L Total Protein 6.5 6.5-8.0 g/dL Albumin Level 3.8 3.5-5.0 g/dL Alkaline Phosphatase 133 39-117 U/L Lipase Reviewed date:12/03/2022 08:57:19 AM Interpretation: Performing Lab:[facility], [address] [place] [address] Notes/Report: Lipase 19 8-78 U/L US abdomen complete Reviewed date:12/17/2022 12:54:08 PM Interpretation: Performing Lab: Notes/Report: [facility] [address] [place] [address] Ultrasound Report Signed Patient: Tay Tyler MR#: [id number] 27 : 1965 Acct:[id number] Age/Sex: 57 / F ADM Date: 12/07/22 Loc: HO.US Attending Dr: Joselin Maravilla Ordering Physician: JOSELIN MARAVILLA MD Date of Service: 12/07/22 Procedure(s): US abdomen complete Accession Number(s): [id number] cc: JOSELIN MARAVILLA MD EXAMINATION: US ABDOMEN COMPLETE CLINICAL INFORMATION: Epigastric pain. COMPARISON: CT abdomen and pelvis 08/13/2020. TECHNIQUE: Real-time imaging of the abdominal viscera. FINDINGS: PANCREAS: Visualized portions of the pancreas are unremarkable. The pancreatic tail is obscured by bowel gas. ABDOMINAL AORTA: The proximal, mid, and distal segments are normal in caliber. INFERIOR VENA CAVA: Visualized portions are normal. LIVER: Liver is normal in size. The liver contour is normal. Parenchymal echogenicity is normal. No focal hepatic lesion. There is no intrahepatic biliary duct dilatation seen. GALLBLADDER: Surgically absent. COMMON BILE DUCT: Mildly dilated for the postcholecystectomy state measuring 1.3 cm in diameter. This is unchanged from prior CT where it measured 1.3 cm. RIGHT KIDNEY: No hydronephrosis or focal parenchymal lesions. The kidney measures 9.8 cm in maximum dimension. 3 mm nonobstructing midpole renal stone. LEFT KIDNEY: Normal. No hydronephrosis. No renal calculi or focal parenchymal lesions. The kidney measures 10.9 cm in maximum dimension. SPLEEN: Normal. The spleen measures 9.3 cm in maximum dimension. FREE FLUID: None. US/US abdomen complete IMPRESSION: 1. Status post cholecystectomy. Common bile duct is mildly dilated for the postcholecystectomy state measuring 1.3 cm in diameter, unchanged from prior. No intrahepatic biliary duct dilatation. 2. A 3 mm nonobstructing right renal stone. Dictated By: Katherine Guillory MD Signed By: <Electronically signed by Katherine Guillory MD in OV> 12/14/221949 DD/ 2 TD/TT: Rehabilitation Case Coordinator: Liver Panel Reviewed date:06/03/2023 01:14:34 PM Interpretation: Performing Lab:[facility], [address] [place] [phone] Notes/Report: Bilirubin Total 0.5 0.0-1.0 mg/dL Bilirubin Direct 0.2 0.0-0.5 mg/dL Aspartate Amino Transferase 21 5-31 U/L Alanine Aminotransferase 17 0-31 U/L Total Protein 7.0 6.5-8.0 g/dL Albumin Level 4.0 3.5-5.0 g/dL Alkaline Phosphatase 109 39-117 U/L IRON PROFILE Reviewed date:06/02/2023 03:49:57 PM Interpretation: Performing Lab:[facility], [address] [place] [phone] Notes/Report: Iron 36 30-160 mcg/dL Total Iron Binding Capacity 425 228-428 mcg/d L Percent Iron Saturation 8 15-50 % Unsaturated Iron Binding 389 Ferritin Reviewed date:06/02/2023 03:49:40 PM Interpretation: Performing Lab:[facility], [address] [place] [phone] Notes/Report: Ferritin 9 10-250 ng/mL Gamma Glutamyl Transpeptidas e Reviewed date:06/03/2023 01:14:41 PM Interpretation: Performing Lab:[address] [phone] Notes/Report: Gamma Glutamyl Transpeptidase 19 7-33 U/L Mitochondrial Antibody Reviewed date:06/10/2023 09:19:32 AM Interpretation: Performing Lab:[facility], [address] [place] [phone] Notes/Report: Mitochondrial Antibodies NEGATIVE NEGATIVE THIS TEST WAS PERFORMED AT: [facility] [address] [place] [phone] NILSA MATTHEWS MD Mitochondrial Ab Titer TNP Smooth Muscle Antibody Reviewed date:06/10/2023 09:19:26 AM Interpretation: Performing Lab:[facility], [address] [place] [phone] Notes/Report: Smooth Muscle Antibody <20 <20 U Reference Range: <20 U: Negative >or=20 U: Positive Antibodies recognizing actin are the main component of smooth muscle antibodies associated with auto- immune liver disease. Actin antibodies are found in approximately 75% of patients with autoimmune hepatitis (AIH) type 1, approximately 65% of patients with autoimmune cholangitis, approximately 30% of patients with primary biliary cirrhosis and approximately 2% of healthy controls. High values are closely correlated with AIH type 1. THIS TEST WAS PERFORMED AT: [facility]/[address] [phone] TREVIN XIAO MD,PHD Liver Fibrosis Pnl Reviewed date:06/10/2023 09:19:10 AM Interpretation: Performing Lab:[facility], [address] [place] [phone] Notes/Report: Liver Fibrosis Score 0.15 Liver Fibrosis Stage F0 Liver Fibrosis Interpretation SEE NOTE no fibrosis Fibro Test Score (f) Metavir Score f>=0 and f<=0.21 : F0 (no fibrosis) f>0.21 and f<=0.27 : F0-F1 (no fibrosis) f>0.27 and f<=0.31 : F1 (minimal fibrosis) f>0.31 and f<=0.48 : F1-F2 (minimal fibrosis) f>0.48 and f<=0.58 : F2 (moderate fibrosis) f>0.58 and f<=0.72 : F3 (advanced fibrosis) f>0.72 and f<=0.74 : F3-F4 (advanced fibrosis) f>0.74 and f<=1.00 : F4 (severe fibrosis) Nec Inflam Act Score 0.05 Nec Inflam Act Grade A0 Nec Inflam Act Interpretation SEE NOTE no activity ActiTest Score (a) Metavir Score a>=0 and a<=0.17 : A0 (no activity) a>0.17 and a<=0.29 : A0-A1 (no activity) a>0.29 and a<=0.36 : A1 (minimal activity) a>0.36 and a<=0.52 : A1-A2 (minimal activity) a>0.52 and a<=0.60 : A2 (significant activity) a>0.60 and a<=0.62 : A2-A3 (significant activity) a>0.62 and a<=1.00 : A3 (severe activity) HRF-Vvlka-9-Macroglobulin 204 106-279 mg/dL FIB-Haptoglobin 108 43-212 mg/dL FIB-Apolipoprotein A1 164 101-198 mg/dL FIB-Total Bilirubin 0.5 0.2-1.2 mg/dL FIB-GGT 15 3-70 U/L FIB-ALT 17 6-29 U/L Reference ID [id number] Footnote SEE NOTE The reliability of results is dependent on compliance with the preanalytical and analytical conditions recommended by [employer]. The tests have to be deferred for: acute hemolysis, acute hepatitis, acute inflammation, extra hepatic cholestasis. The advice of a specialist should be sought for interpretation in chronic hemolysis and Gilbert's syndrome. The test interpretation is not validated in liver transplant patients. Isolated extreme values of one of the components should lead to caution in interpreting the results. In case of discordance between a biopsy result and a test, it is recommended to seek the advice of a specialist. The causes of these discordances could be due to a flaw of the test or to a flaw in the biopsy: i.e. a liver biopsy has a 33% variability rate for one fibrosis stage. FibroTest is interpretable for chronic hepatitis B and C, alcoholic and non alcoholic steatosis. ActiTest is interpretable for chronic hepatitis B and C. The performance characteristics have been determined by [employer] [place]. It has not been cleared or approved by the U.S. Food and Drug Administration. Performance characteristics refer to the analytical performance of the test. [address], the associated logo, [employer] and all associated [employer] gamino are the registered trademarks of [employer]. All third green party gamino - (R) and (TM) - are the property of their respective owners. (C) 7060-4512 [employer]. All rights reserved. THIS TEST WAS PERFORMED AT: [facility] [address] [place] [address] VASQUEZ JENKINS MD,PHD,CARLOS ENRIQUE VINH Reflex Titer and Pattern Reviewed date:06/10/2023 09:19:16 AM Interpretation: Performing Lab:[facility], [address] [place] [phone] Notes/Report: Anti Nuclear Antibody Screen NEGATIVE NEGATIVE VINH IFA is a first line screen for detecting the presence of up to approximately 150 autoantibodies in various autoimmune diseases. A negative VINH IFA result suggests an VINH-associated autoimmune disease is not present at this time, but is not definitive. If there is high clinical suspicion for Sjogren's syndrome, testing for anti-SS-A/Ro antibody should be considered. Anti-Maddie-1 antibody should be considered for clinically suspected inflammatory myopathies. AC-0: Negative International Consensus on VINH Patterns (https://doi.org/10.1515/c hfs-3843-9649) For additional information, please refer to http://education.[employer].FOXFRAME.COM/faq/QOA270 (This link is being provided for informational/ educational purposes only.) THIS TEST WAS PERFORMED AT: [facility] [address] [place] [phone] NILSA MATTHEWS MD Anti Nuclear Antibody Titer TNP Anti Nuclear Antibody Pattern TNP VINH Titer 2 TNP VINH Pattern 2 TNP VINH Titer 3 TNP VINH Pattern 3 TNP REASON FOR REFERRAL Referring Provider First Name Hadley Referring Provider Last Name Odell Referred Organization [facility] Referred Provider Joselin Maravilla Jr Referred Address [address] [place] [phone], Referred Provider Specialty Gastroentero logy General Notes Sarah Posey 023 10:50:22 AM EDT > requested a [facility] referral from [facility] for visit with Dr. Maravilla on 11-30-2022. [phone] Referral Priority Routine MEDICATIONS Medication SIG (Take, Route, Frequency, Duration) Notes Start Date End Date Status ProAir HFA 8.5gm Act jermain Nabumetone Not-Takin g Vitamin D 1000units Active Rizatriptan Benzoate Not-Taking Vitamin B-2 Active Calcium Citrate Acti ve Cephalexin prn Not-Takin g Cyclobenzaprine HCl Active Vitamin B12 Active Dulcolax (colon prep) 5 MG take at 3:00 p.m and 7:00p.m. Orally two tablets twice a day for one day for 1 day 06/23/2021 Active MiraLax (colon prep) 17 GM/SCOOP mixed with Gatorade or Crystal Light Orally begin at 5:00 p.m. the day before the procedure for 1 day 06/23/2021 Active buPROPion HCl ER (XL) Active Loperamide HCl Not-T aking DOK Not-Taking Vitamin C Active Levothyroxine Sodium Active Mirtazapine 30 MG TAKE 1 TABLET BY MOUTH EVERY NIGHT AT BEDTIME Oral for 30 Active hydrOXYzine Pamoate 50 MG TAKE 1 CAPSULE BY MOUTH AT BEDTIME. TAKE 1 CAPSULE 2 TIMES PER DAY NEEDED FOR INCREASED ANXIETY Oral for 30 Active Flovent HFA 110 MCG/ACT INHALE 1 PUFF BY MOUTH TWICE DAILY Inhalation for 60 Active Pantoprazole Sodium 40 MG TAKE 1 TABLET BY MOUTH EVERY DAY Orally Once a day for 90 days Active Topiramate 50 MG TAKE 1 TABLET BY MOUTH FOUR TIMES DAILY Oral for 90 Active clonazePAM 2mg Activ e metroNIDAZOLE Not-Ta bryanna Wellbutrin 300mg Act jermain Estradiol 0.5 MG 1 tablet Orally Not-Taking Magnesium Oxide 400 MG TAKE 1 TABLET BY MOUTH DAILY Oral for 90 Active Gabapentin 100 MG TAKE 1 CAPSULE BY MOUTH FOUR TIMES DAILY Diagnosis Unavailable Oral for 30 Active hydroCHLOROthiazide 12.5 MG TAKE 1 TABLE T BY MOUTH DAILY Diagnosis Unavailable Oral for 90 Active Losartan Potassium 50 MG TAKE 1 TABLET B Y MOUTH EVERY DAY FOR BLOOD PRESSURE Oral for 90 Active IMMUNIZATIONS Vaccine Route Administration Date Status Comme nts Influenza Unknown 12/14/2018 Refused Influenza Unknown 11/30/2022 Refused SOCIAL HISTORY Sex Assigned At : Social History Observation Description Sex Assigned At Unknown PROBLEMS Problem Type ICD Code Onset Dates Problem Status W/U Status Risk SNOMED Code Notes Problem Colon cancer screening (Z12.11) Active confirmed 931618618 Problem Rectal bleeding (K62.5) Active confirmed 58763032 Problem Epigastric pain (R10.13) Active confirmed 05362601 Problem Dysphagia (R13.10) Active confirmed Dys phagia (86674813) Problem Elevated LFTs (R79.89) Active confirmed 238573516 Problem Gastroesophageal reflux disease without esophagitis (K21.9) Active confirmed 944123544 Problem Dysphagia, unspecified type (R13.10) Active confirmed 97420291 Encounters Encounter Location Date Provider Diagnosis [facility] [address] [place] [address] 11/30/2022 Joselin Maravilla Jr Epigastric pain R10.13 ; Elevated liver function tests R79.89 and Gastroesophageal reflux disease without esophagitis K21.9 [facility] [address] [place] [address] 06/02/2023 Joselin Maravilla Jr Elevated LFTs R79.89 and Gastroesophageal reflux disease without esophagitis K21.9 [facility] [address] [facility] [place] [address] 09/28/2022 Joselin Maravilla Jr [facility] [address] [facility] [place] [address] 11/11/2022 Jsoelin Maravilla Jr Generalized abdominal pain R10.84 [facility] [address] [facility] [place] [address] 11/13/2022 Joselin Maravilla Jr [facility] [address] [facility] [place] [address] 12/03/2022 Joselin Maravilla Jr [facility] [address] [place] [address] 12/17/2022 Joselin Maravilla Jr [facility] [address] [facility] [place] [address] 04/13/2023 Joselin Maravilla Jr [facility] [address] [place] [address] 04/13/2023 Joselin Maravilla Jr [facility] [address] [facility] [place] [address] 06/10/2023 Joselin Maravilla Jr ASSESSMENTS Encounter Date Diagnosis Assessment Notes Treatment Notes Treatment Clinical Notes 11/11/2022 Generalized abdomina l pain (ICD-10 - R10.84) 11/30/2022 Epigastric pain (ICD -10 - R10.13) 11/30/2022 Elevated liver funct ion tests (ICD-10 - R79.89) 06/02/2023 Elevated LFTs (ICD-1 0 - R79.89) 06/02/2023 Gastroesophageal ref lux disease without esophagitis (ICD-10 - K21.9) 11/30/2022 Gastroesophageal ref lux disease without esophagitis (ICD-10 - K21.9) PLAN OF TREATMENT Pending Test Test Name Order Date LIVER PROFILE 11/11/2022 LIVER PROFILE 06/02/2023 LIVER PROFILE 11/30/2022 LIPASE 11/11/2022 LIPASE 11/30/2022 GGT 06/02/2023 IRON + IBC (FE) 06/02/2023 FERRITIN 06/02/2023 CBC w/o DIFF 11/30/2022 CBC w/o DIFF 11/11/2022 MITOCHONDRIAL AB 06/02/2023 SMOOTH MUSCLE ANTIBODIES 06/02/2023 XR GI SERIES 09/12/2015 US ABD 11/30/2022 Future Test Test Name Order Date COLONOSCOPY 07/08/2012 UPPER GI ENDOSCOPY BALLOOON DILATION OF ESOPH 12/11/2015 COLONOSCOPY 12/11/2015 COLONOSCOPY 06/23/2021 Next Appt Details Provider Name:Joselin haider , 12/01/2023 09:40:00 AM, [address] [facility], [address], [place], [address], Insurance Providers Payer Name Payer Address Payer Phone Subscriber Number Group Number Insured Name Patient Relationship to Insured Coverage Start Date Coverage End Date MEDICAID OF [employer] [address] [place] [phone] [id number] TAY TYLER Self - patient is the insured MEDICAL (GENERAL) HISTORY Medical History History ICD Code colonoscopy 07/20, normal, ten-year foll owup irritable bowel syndrome gastroesophageal reflux dise ase, EGD 07/20, normal, surgical changes from gastric bypass, biopsies negative for H. pylori elevated cholesterol migraine headaches urinary incontinence anxiety/depression hypertension interstitial cystitis migraines asthma Surgical History Surgery Date(Month/Year) cystoscopy partial bladder denervation tubal ligation appendectomy partial hysterectomy tonsillectomy cancer in uterus x2 [phone] Laparoscopic bypass surgery 11/14
--- NOTE | 2023-09-15 10:10 | MHC.OFFVIS ---
Intake Vital Signs 09/15/23 10:11 Height 5 ft 5 in Weight 163 lb 2.273 oz BMI 27.1 BP 118/72 Intake Visit Reasons: [employer] annual exam Workers' Compensation Claims Supervisor Required: No Information Interpreted: non-clinical & clinical Supervisor Type Disk Quality Control: Supervisor Type Disk Quality Control Present (Yahaira REYES) Accompanied by: Self / Same As Patient Allergies ondansetron [From ZOFRAN] Allergy (Unknown, Verified 09/15/23 10:14) per H&P sumatriptan [From IMITREX] Allergy (Unknown, Verified 09/15/23 10:14) RASH FROM TABLET NOT INJECTION promethazine [From PHENERGAN] Adverse Reaction (Severe, Verified 09/15/23 10:14) DYSTONIA Post menopausal: Yes HPI HPI Comments History of Present Illness Details Presenting for annual exam. No complaints. Last Pap/HPV was in 2015, the patient is status post hysterectomy for endometrial hyperplasia Last Mammogram was BI-RADS 2 in 09/21 Last Colonoscopy was in 07/20, the recommendation was to repeat in 10 years [facility] Medical History (Updated 09/15/23 @ 10:26 by Alex Machuca MD) Flank pain Dysuria Recurrent UTI Swelling of joint, ankle, right Swelling of right foot Right patella fracture Well woman exam Abnormal mammogram Well woman exam Goiter Hypercalciuria Vitamin D deficiency Hypothyroidism History of secondary hyperparathyroidism Hyperparathyroidism Surgical History H/O bilateral salpingo-oophorectomy S/P gastric bypass H/O left breast biopsy H/O: hysterectomy History of bilateral tubal ligation History of appendectomy Family History Mother Uterine cancer Father No problems noted. 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 Sexual orientation: Straight/Heterosexual Gender identity: Female Female Reproductive History Menstrual Age of Menarche: 13 Menopause type: surgical Total pregnancies: 7 Full term: 4 Number of Living Children: 4 Ab spontaneous: 3 Date of Mammogram: 09/21/22 Review of Systems Const All systems reviewed & are unremarkable except as noted in HPI and below Card Reports as per HPI and Reports no additional complaints Resp Reports as per HPI and Reports no additional complaints GI Reports as per HPI and Reports no additional complaints Reports as per HPI Physical Exam Vital Signs: BMI result Body Mass Index 27.1 Const General: cooperative, healthy appearing and comfortable General: Yes bladder normal to palpation External Female Exam: No lesion Speculum Exam - Vagina: normal appearance of the vagina, normal vaginal discharge and not erythematous Speculum Exam - Cervix: Cervix absent Bimanual exam- vagina & uterus: bladder normal to palpation and uterus absent Bimanual Exam- Adnexa, other: Other (No masses detected) Assessment & Plan Assessment & Plan (1) Well woman exam: Code(s): Z01.419 - Encounter for gynecological examination (general) (routine) without abnormal findings Plan: Co testing not indicated since the patient is status post hysterectomy with no history of cervical dysplasia. Mammogram ordered. The patient was instructed to perform monthly self-breast exams and schedule annual exam in a year. All questions answered and the patient verbalized understanding. Orders: Orders MM tomosynthesis screening BI Today Z12.31 - Encounter for screening mammogram for malignant neoplasm of breast Coding Level of Care Code Est Pt Prev Care 40-64y([address]) Diagnoses Well woman exam Z01.419
[2023-09-15 10:11] VITALS: BP 118/72; BMI 27.1
== END 2023-09-15 10:54 | disposition home or self-care (01) ==
LOC: HO.HWS 10:07
PROVIDERS: PCP Nurse Practitioner Primary Care; Referring Provider Nurse Practitioner Primary Care; Visit Provider Obstetrics & Gynecology
DX: Z01.419 Encounter for gynecological examination (general) (routine) without abnormal findings (principal)
CPT/HCPCS: 99396

== ENCOUNTER → 2023-09-15 10:07 | Outpatient (BNVA) | payer MEDICAID, SELFPAY | PROVIDERS: PCP Nurse Practitioner Primary Care; Visit Provider Obstetrics & Gynecology | DX: Z01.419 Encounter for gynecological examination (general) (routine) without abnormal findings (principal) | CPT/HCPCS: 99396 ==

== ENCOUNTER 2023-09-16 10:06 | Outpatient (AMB) | payer MEDICAID, SELFPAY ==
[2023-09-16 10:09] VITALS: BP 114/80; PULSE 88; BMI 26.0
--- NOTE | 2023-09-16 10:09 | A.OFFVIS_ITS ---
Intake Vital Signs 09/16/23 10:09 Height 5 ft 5 in Weight 156 lb 8.451 oz BMI 26.0 BP 114/80 Blood Pressure Location Lt brachial Position Sitting Pulse 88 Pulse Source Pulse Oximeter Intake Visit Reasons: F/U Osteoporosis-confirmed Intake Note: Patient presents today for Osteoporosis follow up. Last seen by Dr. Galvan on 01/13/2023. Front Office Administrator Required: Yes Front Office Administrator Language: Selenium Plant Operator Name: [facility] medical staff Information Interpreted: non-clinical & clinical Accompanied by: Self / Same As Patient Allergies ondansetron [From ZOFRAN] Allergy (Unknown, Verified 09/16/23 10:18) per H&P sumatriptan [From IMITREX] Allergy (Unknown, Verified 09/16/23 10:18) RASH FROM TABLET NOT INJECTION promethazine [From PHENERGAN] Adverse Reaction (Severe, Verified 09/16/23 10:18) DYSTONIA HPI HPI Comments History of Present Illness Details 58 YO Female with a PMHx of obesity s/p a marie en y gastric bypass in 2017 who is seen in F/U for idiopathic hypercalciuria. She was previously followed by Dr. Lozada. The patient last saw Dr. Galvan on 01/13/2023 First diagnosed in 2021 with her first bone density. Has never been treated for this. Workup revealed elevated urinary calcium and mildly elevated PTH. She was started on HCTZ 12.5 mg once daily and urine calcium and PTH have normalized. No history of pathologic fracture or ONJ. Has 1 servings of dietary calcium per day in the form of cheese.? Takes Calcium supplement Calcium citrate 750 mg daily in divided doses.? Takes 2000 IU of Vitamin D daily. Does use daily PPI. Denies ever using anticoagulant, antiepileptic or glucocorticoid medication.? Does no scheduled exercise. Fracture history: Fracture of the kneecap in Sep 2021. This was a fragility fracture. Height loss: Has lost [address] [employer]GE history: Menarche was age 10. Menses were always irregular. . She did breastfeed for 5.5 years. She had uterine cancer and underwent a TAHBSOO in 2013. She used HRT for 5 years, which she stopped at the age of 51. Denies history of Kidney stones: Family history of Osteoporosis in her Mother. UTD on dental cleanings and sees dentist every 6 months.? Is having dental extractions tomorrow. She did complete a full biochemical workup for secondary causes of Osteoporosis. Her 24 hour urine calcium was elevated, but she had been taking Calcium supplements at that time. Calcium was stopped and she repeated her workup 2 weeks later. Labs 05/29/2022 with Calcium 9.3, Albumin 4.2, PTH 82 and Vitamin D 36.1. Urine calcium was elevated to 420 and was an adequate collection. She presents today to review these results. DXA: 12/05/2021 FINDINGS: AP SPINE L1-L4: Current: BMD 0.937 g/cm2, Z-score -1.5, T-score -2.0, osteopenia, 15.8% decrease from baseline (<5% change is not significant). Baseline: BMD 1.113 g/cm2. LEFT FEMUR, NECK: Current: BMD 0.683 g/cm2, Z-score -1.7, T-score -2.6, osteoporosis. Baseline: BMD 0.919 g/cm2. LEFT FEMUR, TOTAL: Current: BMD 0.697 g/cm2, Z-score -2.0, T-score -2.5, osteoporosis, 33.0% decrease from baseline (<5% change is not significant). Baseline: BMD 1.041 g/cm2. LEFT FOREARM RADIUS 33%: BMD 0.901 g/cm2, Z-score 0.8, T-score 0.3, normal, 9.9% decrease from baseline (<5% change is not significant). Baseline: BMD 1.000 g/cm2. Labs: Laboratory Tests 01/02/23 01/02/23 01/02/23 09:00 09:00 10:00 Creatinine 0.84 Estimated GFR > 60 Calcium 9.1 Albumin 3.9 25-OH Vitamin D To magdalena 44.0 TSH 0.89 Free T4 1.07 PTH Intact Calcium (PTH Intac t) Ur 24 Hour Volume 3110 Ur Creatinine 24 H our 1.93 Ur Calcium 24 Hr 199 01/02/23 10:00 Creatinine Estimated GFR Calcium Albumin 25-OH Vitamin D To magdalena TSH Free T4 PTH Intact 49 Calcium (PTH Intac t) 9.4 Ur 24 Hour Volume Ur Creatinine 24 H our Ur Calcium 24 Hr No fracture since last visit [facility] Medical History (Updated 09/15/23 @ 10:26 by Alex Machuca MD) Flank pain Dysuria Recurrent UTI Swelling of joint, ankle, right Swelling of right foot Right patella fracture Well woman exam Abnormal mammogram Well woman exam Goiter Hypercalciuria Vitamin D deficiency Hypothyroidism History of secondary hyperparathyroidism Hyperparathyroidism Surgical History H/O bilateral salpingo-oophorectomy S/P gastric bypass H/O left breast biopsy H/O: hysterectomy History of bilateral tubal ligation History of appendectomy Family History Mother Uterine cancer Father No problems noted. 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 Was also history of nephrolithiasis. Plan is to continue the hydrochlorothiazide and recheck a DEXA bone density in 3 months' time. Depending upon the above could consider giving anti resorptive therapy or observing. Will also check urinary NTX at that point Orders: Orders Collagen Crosslinks NTX Today M81.0 - Age-related osteoporosis without current pathological fracture XR DEXA axial skeleton Today M81.0 - Age-related osteoporosis without current pathological fracture Coding Level of Care Code Est Pt Level 3 (97718) Diagnoses Hypercalciuria R82.994
== END 2023-09-16 10:25 | disposition home or self-care (01) ==
PROVIDERS: PCP Nurse Practitioner Primary Care; Visit Provider Internal Medicine Endocrinology, Diabetes & Metabolism
DX: R82.994 Hypercalciuria (principal)
CPT/HCPCS: 99213

== ENCOUNTER → 2023-09-16 10:06 | Outpatient (BNVA) | payer MEDICAID, SELFPAY | PROVIDERS: Visit Provider Internal Medicine Endocrinology, Diabetes & Metabolism | DX: R82.994 Hypercalciuria (principal) | CPT/HCPCS: 99212 ==

== ENCOUNTER 2023-10-08 08:51 | Outpatient (REF) | payer MEDICAID, SELFPAY | END 2023-10-08 08:52 | disposition home or self-care (01) | LOC: HO.LAB 08:51 | PROVIDERS: PCP Nurse Practitioner Primary Care; Visit Provider Nurse Practitioner Family | DX: R30.0 Dysuria (principal); N20.0 Calculus of kidney; N39.0 Urinary tract infection, site not specified | CPT/HCPCS: 51798; 81003; 87086; 99212 ==

== ENCOUNTER 2023-10-08 08:51 | Outpatient (AMB) | payer MEDICAID, SELFPAY ==
--- NOTE | 2023-10-08 08:57 | MHC.OFFVIS ---
Intake Intake Visit Reasons: 4w/PVR Intake Note: Patient is present for follow up recurrent uti/nephrolithiasis Urology Medications: Estrace Cream, Vitamin B 6 Blood Thinner: none Patient stated she feels a burning sensation when she urinates PVR:0ml Critical Care Unit Manager Required: No Accompanied by: Self / Same As Patient Allergies ondansetron [From ZOFRAN] Allergy (Unknown, Verified 10/08/23 09:25) per H&P sumatriptan [From IMITREX] Allergy (Unknown, Verified 10/08/23 09:25) RASH FROM TABLET NOT INJECTION promethazine [From PHENERGAN] Adverse Reaction (Severe, Verified 10/08/23 09:25) DYSTONIA Medication List - Last Reconciled 10/08/23 by KYLER Bhatia- bupropion HCl 150 mg PO QAM cholecalciferol (vitamin D3) 2,000 units PO DAILY clonazepam 1 mg PO BEDTIME cyanocobalamin (vitamin B-12) 1,000 mcg PO DAILY diltiazem HCl 180 mg PO DAILY fluticasone propionate 110 mcg/actuation (Flovent HFA) 1 puff PO BID gabapentin 100 mg PO TID hydrochlorothiazide 12.5 mg PO DAILY 90 days hydroxyzine pamoate 50 mg PO TID PRN levothyroxine 25 mcg PO DAILY lidocaine 5% (Lidoderm) 1 patch topical DAILY losartan 50 mg PO DAILY mirtazapine 30 mg PO BEDTIME pantoprazole 40 mg PO DAILY pyridoxine (vitamin B6) 100 mg PO DAILY 90 days riboflavin (vitamin B2) (Vitamin B-2) 200 mg PO BID sulfamethoxazole-trimethoprim 800-160 mg (Bactrim DS) 1 tab PO BID 14 days topiramate 50 mg PO QID trimethoprim 100 mg PO DAILY 90 days HPI HPI Comments History of Present Illness Details Laura is a pleasant 58 year old female patient of Dr. Weir. She has a past medical history of goiter, hypercalciuria interstitial cystitis, BV, osteoporosis, and hyperthyroidism. She presents to the office today for follow-up of her nephrolithiasis, recurrent urinary tract infections and pyelonephritis. In discussion with the patient today she reports noting dysuria over the last 2 weeks. She reports not having called the office as she had this appointment scheduled. In office urinalysis today with 3+ leukocytes negative nitrates. Discussed importance of calling office with any new onset UTI like symptoms given longstanding history of pyelonephritis. No CVA tenderness noted bilaterally. She otherwise denies urinary urgency, urinary frequency, incontinence, nocturia, hematuria, foul smelling urine, changes to urinary stream, flank pain, fever, and or chills. Recent renal imaging results reviewed with the patient today. Right kidney with mid pole 0.3 cm calculus. Upper pole was 0.3 cm calculus. No hydronephrosis. Left kidney with no hydronephrosis and or calculi noted. When asked she reports having since stopped Estrace cream as she does not wish to continue this. Discussed further treatment options for prevention of recurrent urinary tract infections. PVR 0 mL. She otherwise offers no other issues or concerns at this time. [facility] Medical History Flank pain Dysuria Recurrent UTI Swelling of joint, ankle, right Swelling of right foot Right patella fracture Well woman exam Abnormal mammogram Well woman exam Goiter Hypercalciuria Vitamin D deficiency Hypothyroidism History of secondary hyperparathyroidism Hyperparathyroidism Surgical History H/O bilateral salpingo-oophorectomy S/P gastric bypass H/O left breast biopsy H/O: hysterectomy History of bilateral tubal ligation History of appendectomy Family History Mother Uterine cancer Father No problems noted. 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 Sexual orientation: Straight/Heterosexual Gender identity: Female Female Reproductive History Menstrual Age of Menarche: 13 Review of Systems Const All systems reviewed & are unremarkable except as noted in HPI and below Reports as per HPI Eyes Reports no additional complaints ENT Reports no additional complaints Card Reports no additional complaints Resp Reports no additional complaints GI Reports no additional complaints Reports as per HPI Musc Reports as per HPI Neuro Reports no additional complaints Psych Reports anxiety and Reports depression Endo Reports as per HPI Aman/Lymph Reports no additional complaints Aller/Immun Reports no additional complaints Physical Exam Const General: cooperative, healthy appearing, comfortable, no acute distress, well developed, alert and awake Orientation/consciousness: patient oriented x3 Limitations: no limitations HEENT Head: Yes normal to inspection, Yes normocephalic and Yes atraumatic Ears: hearing grossly normal bilaterally Eyes General: appearance normal, both eyes and all related structures Neck Neck: Yes normal visual inspection and Yes trachea midline Chest Chest palpation & inspection: normal inspection of the chest Resp Effort & Inspection: normal respiratory effort and able to speak in complete sentences Cardio Rate: regular rate GI Inspection: Yes normal to inspection General: Yes no CVA tenderness Back/Spine/Pelvis Back: no CVA tenderness Skin General skin exam: no rashes or lesions noted Neuro General: patient oriented x3 Extrem General: Yes normal to inspection Psych Appearance: grossly normal and well kempt Mental Status: mental status grossly normal Speech and movement: Normal speech and movement present and Clear speech present Affect: normal affect Attitude: cooperative Thought process: Normal thought process present Thought content: Normal thought content present Insight: Fair insight present (Psych) Judgement: Fair judgement present (Psych) Office Procedures Post Void Residual Post Residual Void Post Void Residual (PVR): 0 21137-Imlx Void Residual by ultrasound Results AMB Urinalysis, Automated UA Leukoctes 500 Ynes/uL Last Edit by Angela Quintanilla CMA on 10/08/23 09:15 UA Nitrite Negative Last Edit by Angela Quintanilla CMA on 10/08/23 09:15 UA Urobilinogen 0.2 mg/dL Last Edit by Angela Quintanilla CMA on 10/08/23 09:15 UA Protein 15 mg/dL Last Edit by Angela Quintanilla CMA on 10/08/23 09:15 UA pH 7.5 Last Edit by Angela Quintanilla CMA on 10/08/23 09:15 UA Blood 0 Christiano/uL Last Edit by Angela Quintanilla CMA on 10/08/23 09:15 UA Specific [place] 1.010 Last Edit by Angela Quintanilla CMA on 10/08/23 09:15 UA Ketone Negative Last Edit by Angela Quintanilla CMA on 10/08/23 09:15 UA Bilirubin 1 mg/dL Last Edit by Angela Quintanilla CMA on 10/08/23 09:15 UA Glucose 0 mg/dL Last Edit by Angela Quintanilla CMA on 10/08/23 09:15 Results Reviewed Results Reviewed: Laboratory Last Values Urine pH (Auto) 7.5 10/08/23 08:59 Specific [place] (Auto) 1.010 10/08/23 08:59 Urine Protein (Auto) 15 mg/dL 10/08/23 08:59 Glucose (UA)(Auto) 0 mg/dL 10/08/23 08:59 Urine Ketones (Auto) Negative 10/08/23 08:59 Urine Blood (Auto) 0 Christiano/uL 10/08/23 08:59 Urine Nitrite (Auto) Negative 10/08/23 08:59 Urine Bilirubin (Auto) 1 mg/dL 10/08/23 08:59 Urine Urobilinogen (Auto) 0.2 mg/dL 10/08/23 08:59 Leukocyte Esterase (Auto) 500 Ynes/uL 10/08/23 08:59 Date of Service: 08/31/23 EXAMINATION: US RETROPERITONEAL LIMITED (RENAL ONLY) FINDINGS: RIGHT KIDNEY: 10.8 x 5.1 x 5.2 cm (SAG x AP x TRV). Mid pole 0.3 cm calculus. Upper pole 0.3 cm calculus. No hydronephrosis. Renal cortical thickness is normal. Limited visualization. LEFT KIDNEY: 11.2 x 5.2 x 4.2 cm (SAG x AP x TRV). No hydronephrosis. No renal calculi. Renal cortical thickness is normal. Limited visualization. IMPRESSION: Right renal nonobstructive calculi. No hydronephrosis. Assessment & Plan Assessment & Plan (1) Dysuria: Code(s): R30.0 - Dysuria (2) Nephrolithiasis: Code(s): N20.0 - Calculus of kidney (3) Urinary tract infection: Code(s): N39.0 - Urinary tract infection, site not specified Plan In office urinalysis results reviewed with the patient today; as noted above; will send for urine culture. Recent renal imaging results reviewed with the patient today; as noted above. Start Bactrim as discussed and prescribed. Will discontinue Estrace cream as patient does not wish to continue. Discussed UTI prevention with D mannose supplement, vitamin-C, increasing fluid intake, behavioral therapy with timed voiding, perineal hygiene and postcoital voiding, and management of constipation with stool softeners and increased fiber intake. Discussed low-dose antibiotic therapy of trimethoprim once completion of treatment dose for urinary tract infection. Discussed at length multiple treatment options of recurrent urinary tract infections as well as potential causes for recurrent urinary tract infections as well as nephrolithiasis. Discussed further metabolic workup with 24 hour urine collection as well as labs however patient declines at this time as she feels recurrent nephrolithiasis is related to topiramate in which she finds helpful for her headaches. Discussed, educated, and stressed the importance of drinking plenty of water daily. Continue adding 1 oz of lemon juice to water daily. Follow-up in 3 months with PVR; or sooner with any issues, concerns, and or questions. Orders: Orders AMB Urinalysis Automated Today R33.9 - Retention of urine, unspecified Urine Culture Today N39.0 - Urinary tract infection, site not specified AMB Post Void Residual by ultrasound Today R33.9 - Retention of urine, unspecified Medications: New sulfamethoxazole-trimethoprim 800-160 mg (Bactrim DS) 1 tab PO BID 14 days 28 tabs 0RF N39.0 - Urinary tract infection, site not specified trimethoprim Start daily once treatment of/for UTI is completed 100 mg PO DAILY 90 days 90 tabs 1RF R33.9 - Retention of urine, unspecified Discontinued estradiol 0.01%(0.1mg/gram) Discontinued Reason: Patient Refused vaginally 3 times a week; pea sized amount to urethra 3 times a week 30 days 42.5 grams 5RF Patient Instructions: The patient had an opportunity to ask questions regarding the treatment plan. All questions were answered. Physical exam, labs, and imaging were discussed and reviewed in detail. As well as risks, benefits, and discussion of treatment choices. No major barriers to understanding were identified. The patient expressed understanding and agreement with the above treatment plan. The patient was made aware they should contact our office by phone for worsening of their current condition, the appearance of new symptoms, or with any questions or concerns. Compliance is encouraged with any medications and follow up testing that is ordered. It is a privilege to be allowed the opportunity to participate in? your urological care.? Again, if you have any questions or concerns If you have any questions or concerns please do not hesitate to contact me. The office is [phone]. This note is constructed using voice recognition software. While every effort has been made to ensure accuracy land department head errors may have been included. Yours sincerely, KYLER Bhatia-PEYMAN Coding Level of Care Code Est Pt Level 4 (79030) Diagnoses Dysuria R30.0 Nephrolithiasis N20.0 Urinary tract infection N39.0 CPT Codes Post Residual Void - PVR CPT Code: 40037-Zdez Void Residual by ultrasound ([id number])
== END 2023-10-08 09:21 | disposition home or self-care (01) ==
PROVIDERS: PCP Nurse Practitioner Primary Care; Visit Provider Nurse Practitioner Family
DX: R30.0 Dysuria (principal); N20.0 Calculus of kidney; N39.0 Urinary tract infection, site not specified; R33.9 Retention of urine, unspecified
CPT/HCPCS: 99214

== ENCOUNTER 2023-12-07 08:38 | Outpatient (REF) | payer MEDICAID, SELFPAY ==
--- NOTE | ~2023-12-07 | MM_ITS ---
EXAMINATION: BONE DENSITOMETRY CLINICAL INDICATION: Age-related osteoporosis without current pathological fracture. COMPARISON: Previous BD dated 12/05/2021 and baseline BD dated 08/19/2017. TECHNIQUE: Using a [employer] DXA System (software version: 13.1) manufactured by [employer], dual-energy x-ray absorptiometry was performed of the lumbar spine and left hip. The images are of good technical quality. Summary results are attached. FINDINGS: LEFT FEMUR, NECK: Current: BMD 0.749 g/cm2, Z-score -1.1, T-score -2.1, osteopenia. Prior: BMD 0.683 g/cm2. Baseline: BMD 0.919 g/cm2. LEFT FEMUR, TOTAL: Current: BMD 0.772 g/cm2, Z-score -1.2, T-score -1.9, osteopenia, 10.8% increase from previous, 25.8% decrease from baseline (<5% change is not significant). Prior: BMD 0.697 g/cm2. Baseline: BMD 1.041 g/cm2. AP SPINE L1-L4: Current: BMD 0.885 g/cm2, Z-score -1.6, T-score -2.5, osteoporosis, 5.5% decrease from previous, 20.5% decrease from baseline (<5% change is not significant). Prior: BMD 0.937 g/cm2. Baseline: BMD 1.113 g/cm2. IDENTIFIED RISK FACTORS: Menopause, hysterectomy, history of fracture (adult), bilateral oophorectomy, osteoporosis, recurrent falls, secondary osteoporosis (partial gastrectomy, hyperthyroidism). HISTORY OF FRACTURE: Other. MEDICATIONS: None listed. MM/XR DEXA axial skeleton IMPRESSION: 1. DIAGNOSIS: Osteoporosis based on the lowest T-score value of -2.5 in the lumbar spine applying World Health Organization criteria. 2. 10-YEAR FRACTURE RISK PREDICTION, FRAX: According to the guidelines, FRAX calculation should only be performed on patients in the osteopenia bone density category. Therefore, FRAX was not performed on this patient. 3. Treatment Recommendations: NOF guidelines recommend consideration for treatment in postmenopausal women and men age 50 and older presenting with the following: -A hip or vertebral (clinical or morphometric) fracture. -T-score less than or equal to -2.5 at the femoral neck or spine after appropriate evaluation to exclude secondary causes. -Low bone mass at the hip or spine and a 10-year fracture probability by FRAX of greater than or equal to 3% for hip fracture or greater than or equal to 20% for major osteoporotic fracture based on the [place] adapted WHO algorithm. 4. Other Recommendations: All treatment decisions require clinical judgment and consideration of individual patient factors, including patient preferences, comorbidities, previous drug use, risk factors not captured in the FRAX model (e.g. frailty, falls, vitamin D deficiency, increased bone turnover, interval significant decline in bone density) and possible under or overestimation of fracture risk by FRAX. Additional medical evaluation for secondary cause of low bone mineral density may be appropriate. FUTURE SCAN RECOMMENDATION: People with diagnosed cases of osteoporosis or at high risk for fracture should have regular bone mineral density tests. For patients eligible for Medicare, routine testing is allowed once every 2 years. The testing frequency can be increased to one year for patients who have rapidly progressing disease, those who are receiving or discontinuing medical therapy to restore bone mass, or have additional risk factors.
--- NOTE | ~2023-12-07 | MM_ITS ---
EXAMINATION: MM SCREENING DIGITAL BREAST TOMOSYNTHESIS, BILATERAL CLINICAL INFORMATION: Screening. Asymptomatic. COMPARISON: Mammography: This study is compared with prior exams dating back to 2019. TECHNIQUE: Digital breast tomosynthesis is performed in both the craniocaudal and mediolateral oblique views along with computer-aided detection (CAD). Synthesized 2D images are generated from the tomosynthesis. FINDINGS: There are scattered areas of fibroglandular density (ACR BI-RADS breast composition Category b). There are no significant masses, abnormal calcifications, or other abnormalities. There is a biopsy tissue marker in the left axilla. The patient has bilateral metallic hardware in the medial aspects of each breast, unchanged from the previous study. The patient's left nipple ring is present on the this study. MM/MM tomosynthesis screening BI IMPRESSION: No mammographic evidence of malignancy. ASSESSMENT: BI-RADS BI-RADS 1 - Negative RECOMMENDATION: Routine annual mammography screening. 1 year F/U This examination should not preclude the clinical evaluation of a suspicious palpable abnormality. This patient's information was entered into a reminder system with a target due date for their next mammogram.
== END 2023-12-07 08:39 | disposition home or self-care (01) ==
LOC: HO.MAMMO 08:38
PROVIDERS: PCP Nurse Practitioner Primary Care; Visit Provider Nurse Practitioner Primary Care
DX: Z12.31 Encounter for screening mammogram for malignant neoplasm of breast (principal); Z13.820 Encounter for screening for osteoporosis; M81.0 Age-related osteoporosis without current pathological fracture; Z78.0 Asymptomatic menopausal state
CPT/HCPCS: 77063; 77067; 77080

== ENCOUNTER → 2023-12-07 09:15 | Outpatient (BNV) | payer MEDICAID, SELFPAY | PROVIDERS: PCP Nurse Practitioner Primary Care; Visit Provider Radiology Diagnostic Radiology | DX: Z12.31 Encounter for screening mammogram for malignant neoplasm of breast (principal) | CPT/HCPCS: 77063; 77067 ==

== ENCOUNTER 2023-12-29 12:06 | Day surgery (SDC) | payer MEDICAID, SELFPAY ==
--- NOTE | 2023-12-27 15:34 | P.CONAN_ITS ---
Documented by User: Shey Marrufo NP 12/27/23 15:35 HPI - Anesthesia Eval Consult details Narrative: 58yo F for Colonoscopy PMFSH Active Problems Active Problems: All Active Problems Flank pain (Acute) Dysuria (Acute) Nephrolithiasis (Acute) Goiter (Acute) Interstitial cystitis (Acute) Urinary incontinence (Acute) Bacterial vaginosis (Acute) Hypercalciuria (Acute) Varicose veins of right lower extremity with inflammation (Acute) Osteoporosis (Acute) Vitamin D deficiency (Acute) Hypothyroidism (Acute) H/O bilateral salpingo-oophorectomy (Acute) History of secondary hyperparathyroidism (Acute) Hyperparathyroidism (Acute) Past Medical History Medical History Flank pain Dysuria Recurrent UTI Swelling of joint, ankle, right Swelling of right foot Right patella fracture Well woman exam Abnormal mammogram Well woman exam Goiter Hypercalciuria Vitamin D deficiency Hypothyroidism History of secondary hyperparathyroidism Hyperparathyroidism Family History Family History Mother Uterine cancer Father No problems noted. 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 Sexual orientation: Straight/Heterosexual Gender identity: Female Meds Allergies Allergy/AdvReac Type Severity Reaction Status Date / Time ondansetron [From ZOFRAN] Allergy Unknown per H&P Verified 10/08/23 09:25 sumatriptan [From IMITREX] Allergy Unknown RASH FROM Verified 10/08/23 09:25 TABLET NOT INJECTION promethazine [From PHENERGAN] AdvReac Severe DYSTONIA Verified 10/08/23 09:25 Home Medications ?Medication ?Instructions ?Recorded ?Confirmed ?Last Taken ?Type cyanocobalamin (vitamin B-12) 1,000 mcg PO DAILY 07/05/20 06/10/23 Unknown History 1,000 mcg capsule bupropion HCl 150 mg 24 hr tablet, 150 mg PO QAM 11/24/21 06/10/23 Unknown History extended release clonazepam 1 mg tablet 1 mg PO BEDTIME 11/24/21 06/10/23 Unknown History diltiazem HCl 180 mg 180 mg PO DAILY 11/24/21 06/10/23 Unknown History capsule,extended release 24 hr fluticasone propionate 110 1 puff PO BID 11/24/21 06/10/23 Unknown History mcg/actuation HFA aerosol inhaler (Flovent HFA) hydroxyzine pamoate 50 mg capsule 50 mg PO TID PRN anxiety 11/24/21 06/10/23 Unknown History pantoprazole 40 mg tablet,delayed 40 mg PO DAILY 11/24/21 06/10/23 Unknown History release cholecalciferol (vitamin D3) 50 2,000 unit PO DAILY 11/26/21 06/10/23 Unknown History mcg (2,000 unit) capsule losartan 50 mg tablet 50 mg PO DAILY blood pressure 11/24/22 06/10/23 Unknown History levothyroxine 25 mcg tablet 25 mcg PO DAILY 01/08/23 06/10/23 Unknown History riboflavin (vitamin B2) 100 mg 200 mg PO BID 01/08/23 06/10/23 Unknown History tablet (Vitamin B-2) topiramate 50 mg tablet 50 mg PO QID 01/08/23 06/10/23 Unknown History mirtazapine 30 mg tablet 30 mg PO BEDTIME 03/10/23 06/10/23 Unknown History Assessment and Plan Assessment Anesthesia Assessment: Chart Reviewed Final Anesthetic Review Family History of Problems with Anesthesia: No History of Problems with Anesthesia: No Documented by User: Yolanda Velazquez MD 12/29/23 13:11 PMFSH Past Medical History Medical History Flank pain Dysuria Recurrent UTI Swelling of joint, ankle, right Swelling of right foot Right patella fracture Well woman exam Abnormal mammogram Well woman exam Goiter Hypercalciuria Vitamin D deficiency Hypothyroidism History of secondary hyperparathyroidism Hyperparathyroidism Family History Family History Mother Uterine cancer Father No problems noted. 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 Sexual orientation: Straight/Heterosexual Gender identity: Female Meds Allergies Allergy/AdvReac Type Severity Reaction Status Date / Time ondansetron [From ZOFRAN] Allergy Unknown per H&P Verified 10/08/23 09:25 sumatriptan [From IMITREX] Allergy Unknown RASH FROM Verified 10/08/23 09:25 TABLET NOT INJECTION promethazine [From PHENERGAN] AdvReac Severe DYSTONIA Verified 10/08/23 09:25 Home Medications ?Medication ?Instructions ?Recorded ?Confirmed ?Last Taken ?Type cyanocobalamin (vitamin B-12) 1,000 mcg PO DAILY 07/05/20 06/10/23 Unknown History 1,000 mcg capsule bupropion HCl 150 mg 24 hr tablet, 150 mg PO QAM 11/24/21 06/10/23 Unknown Hi story extended release clonazepam 1 mg tablet 1 mg PO BEDTIME 11/24/21 06/10/23 Unknown History diltiazem HCl 180 mg 180 mg PO DAILY 11/24/21 06/10/23 Unknown History capsule,extended release 24 hr fluticasone propionate 110 1 puff PO BID 11/24/21 06/10/23 Unknown History mcg/actuation HFA aerosol inhaler (Flovent HFA) hydroxyzine pamoate 50 mg capsule 50 mg PO TID PRN anxiety 11/24/21 06/10/23 Unknown History pantoprazole 40 mg tablet,delayed 40 mg PO DAILY 11/24/21 06/10/23 Unknown History release cholecalciferol (vitamin D3) 50 2,000 unit PO DAILY 11/26/21 06/10/23 Unknown History mcg (2,000 unit) capsule losartan 50 mg tablet 50 mg PO DAILY blood pressure 11/24/22 06/10/23 Unknown History levothyroxine 25 mcg tablet 25 mcg PO DAILY 01/08/23 06/10/23 Unknown History riboflavin (vitamin B2) 100 mg 200 mg PO BID 01/08/23 06/10/23 Unknown History tablet (Vitamin B-2) topiramate 50 mg tablet 50 mg PO QID 01/08/23 06/10/23 Unknown History mirtazapine 30 mg tablet 30 mg PO BEDTIME 03/10/23 06/10/23 Unknown History Exam Airway Mallampati Class: II TM Dist: >3cm Neck ROM: Full Loose/Missing/Broken Teeth: Yes and Lower Heart: RRR Lungs: CTA Assessment and Plan Assessment Anesthesia Assessment: Anesthesia Plan Discussed Final Anesthetic Review NPO: Yes ASA Class: II Final Preanesthetic Review: Meds/Allgs Chart Reviewed, Consent Obtained/Reviewed and Anes Risks/Benef Reviewed Patient Risk: Low Procedure Risk: Low Anesthetic Plan Anesthetic Plan: MAC: Disposition: Standard PACU
[2023-12-29 12:20] VITALS: BMI 26.3
[2023-12-29 12:22] VITALS: BP 120/87; PULSE 72; RESP 18; TEMP 36.6; O2SAT 99
[2023-12-29] MEDS: Lactated Ringers 1,000 ML 100 ML IVCONT (12:37)
--- NOTE | 2023-12-29 12:47 | MHC.SHP ---
Pre-Procedural Eval Section A - 24 Hr Update-Section A only Date of Service: 12/29/23 The patient is an INPATIENT: No Changes since office visit: No Cold of Flu in the past 2 weeks, No New Medical Problems, No Changes in Medication and No Patient answered all questions The patient has been examined within 24 hours of the surgical procedure. The History & Physical has been completed within 30 days and I have reviewed it.: Yes Section B - Complete if H&P > 30 days Chief Complaint: Hemorrhage of anus and rectum Allergies: Allergies Allergy/AdvReac Type Severity Reaction Status Date / Time ondansetron [From ZOFRAN] Allergy Unknown per H&P Verified 10/08/23 09:25 sumatriptan [From IMITREX] Allergy Unknown RASH FROM Verified 10/08/23 09:25 TABLET NOT INJECTION promethazine [From PHENERGAN] AdvReac Severe DYSTONIA Verified 10/08/23 09:25 Plan I have reviewed the history and physical and performed a pertinent physical examination on my patient. No changes have occurred unless specified. Time Spent With Patient Time: Total time managing care of this patient today ____ minutes.
[2023-12-29 13:45] VITALS: BP 105/64; PULSE 82; RESP 16; TEMP 36.2; O2SAT 99
[2023-12-29 14:00] VITALS: BP 116/77; PULSE 82; RESP 18; TEMP 36.2; O2SAT 99
--- NOTE | 2023-12-29 21:40 | OP_ITS ---
DATE OF SERVICE: 12/29/2023 SURGEON: Fidencio Vila MD INDICATIONS: Rectal bleeding. PREOPERATIVE DIAGNOSIS: POSTOPERATIVE DIAGNOSIS: PROCEDURE PERFORMED: Colonoscopy to the terminal ileum. ESTIMATED BLOOD LOSS: COMPLICATIONS: ANESTHESIA: Monitored anesthesia care. ASSISTANTS: SPECIMENS: DESCRIPTION OF PROCEDURE: A history and physical was performed. The risks and benefits of the procedure were explained to the patient, and informed consent was obtained. The patient was placed in the left lateral decubitus position. A digital rectal exam was performed and showed decreased sphincter tone. The Olympus pediatric video colonoscope was introduced into the rectum and advanced to the cecum. The cecum was identified by transillumination, palpation, and identification of ileocecal valve. Examination was performed. The scope was removed. She tolerated the procedure well and was returned to the recovery area in stable condition. FINDINGS: The terminal ileum was normal. The visualized colonic mucosa was normal. The quality of the prep was good. Random sigmoid biopsies were obtained. Retroflexed examination showed small internal hemorrhoids. IMPRESSION: Normal colonoscopy. RECOMMENDATION: 1. Follow up as needed. 2. Repeat colonoscopy is recommended in 10 years for average risk individuals. MD PEYMAN Roberts/MODL / [id number]
== END 2023-12-29 15:21 | disposition home or self-care (01) ==
PROVIDERS: PCP Nurse Practitioner Primary Care; Visit Provider Internal Medicine Gastroenterology
PROC: 0DJD8ZZ Inspection of Lower Intestinal Tract, Via Natural or Artificial Opening Endoscopic (ICD-10-PCS; CPT 45378; principal; 2023-12-29 13:10)
DX: K62.5 Hemorrhage of anus and rectum (principal); K64.8 Other hemorrhoids; I10 Essential (primary) hypertension; Z88.8 Allergy status to other drugs, medicaments and biological substances
CPT/HCPCS: 45380; 88305; J2704

== ENCOUNTER 2024-01-04 09:47 | Outpatient (REF) | payer MEDICAID, SELFPAY ==
[2024-01-04 11:52] LABS: MANUAL DIFF FLAG NO
[2024-01-04 12:08] LABS: Basophils Absolute Auto 0.1 X10*3/uL (0.0-0.2); Basophils Percent Auto 1.3 % (0-2); Eosinophils Absolute Auto 0.2 X10*3/uL (0.0-0.4); Eosinophils Percent Auto 2.7 % (0-4); Hematocrit 36.5 % (37.0-47.0); Hemoglobin 11.7 g/dl (12.0-16.0); Imm Gran Abs Auto 0.01 X10*3/uL (0.00-0.03); Imm Gran Pct Auto 0.2 % (0.0-0.4); Lymphocytes Absolute Auto 2.2 X10*3/uL (1.2-4.9); Lymphocytes Percent Auto 39.8 % (20-40); Mean Corpuscular HGB Conc 32.1 g/dl (31.0-35.0); Mean Corpuscular Hemoglobin 24.8 pg (27.0-33.0); Mean Corpuscular Volume 77.5 fL (80.0-98.0); Mean Platelet Volume 8.4 fL (9.4-12.3); Monocytes Absolute Auto 0.5 X10*3/uL (0.1-1.2); Monocytes Percent Auto 9.3 % (2-11); Neutrophils Absolute Auto 2.6 x10*3/uL (2.0-8.3); Neutrophils Percent Auto 46.7 % (45-73); Platelet Count 391 X10*3/uL (160-400); Red Blood Count 4.71 X10*6/uL (4.20-5.50); Red Cell Distribution Width 17.4 % (11.0-16.0); White Blood Count 5.5 X10*3/uL (4.8-10.8)
[2024-01-04 12:34] LABS: Anion Gap 13 (12-20); Blood Urea Nitrogen 11 mg/dL (9-16); Carbon Dioxide 23 mmol/L (22-29); Chloride 107 mmol/L (96-108); Estimated Glomerular Filt Rate > 60; Glucose Random 103 mg/dL (60-115); Iron 24 mcg/dL (30-160); Percent Iron Saturation 5 % (15-50); Potassium 3.7 mmol/L (3.3-5.1); Sodium 139 mmol/L (135-145); Total Iron Binding Capacity 446 mcg/dL (228-428); Unsaturated Iron Binding 422 ug/dL
[2024-01-04 12:53] LABS: Ferritin 9 ng/mL (10-250)
[2024-01-04 13:02] LABS: Folate 12.9 ng/mL (> or = 4.0); Vitamin B12 473 pg/mL (200-900)
[2024-01-05 04:01] LABS: HIV AB/AG Nonreactive (Nonreactive); HIV Num 1 0.05 S/CO (0.00-0.99)
[2024-01-05 11:14] LABS: RPR Rapid Plasma Reagin NON-REACTIVE (NON-REACTIVE)
== END 2024-01-04 09:48 | disposition home or self-care (01) ==
LOC: HO.HHCL 09:47
PROVIDERS: Visit Provider Nurse Practitioner Primary Care
DX: R41.3 Other amnesia (principal)
CPT/HCPCS: 36415; 80048; 82607; 82728; 82746; 83540; 85025; 86592; 87389

== ENCOUNTER 2024-02-15 09:51 | Outpatient (AMB) | payer MEDICAID, SELFPAY ==
[2024-02-15 10:02] VITALS: BP 100/66; PULSE 90; BMI 25.9
--- NOTE | 2024-02-15 10:02 | MHC.OFFVIS ---
Vital Signs 02/15/24 10:02 Height 5 ft 5 in Weight 155 lb 6.814 oz BMI 25.9 BP 100/66 Blood Pressure Location Lt brachial Position Sitting Pulse 90 Pulse Source Pulse Oximeter Intake Visit Reasons: Osteoporosis-lvm Intake Note: Patient presents today for Osteoporosis follow up visit. Missile Facilities Repairer Required: No Accompanied by: Self / Same As Patient Allergies ondansetron [From ZOFRAN] Allergy (Unknown, Verified 02/15/24 10:06) per H&P sumatriptan [From IMITREX] Allergy (Unknown, Verified 02/15/24 10:06) RASH FROM TABLET NOT INJECTION promethazine [From PHENERGAN] Adverse Reaction (Severe, Verified 02/15/24 10:06) DYSTONIA HPI Comments Details: 59 YO [Female] with PMHx of partial gastrectomy and reported secondary hyperpara is seen in consultation at the request of PCP for Osteoporosis. First diagnosed in 1 yr ago . Never Received treatment in the past No history of pathologic fracture or ONJ. Hx of fx of knee right 1 1/2 yrs ago Has servings of dietary calcium per day in the form of [].Does not Takes Calcium supplement mg daily in divided doses. Takes 2000 IU of Vitamin D daily. Takes PPI, anticoagulant, takes antiepileptic Topramax or glucocorticoid medication. 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 Has history of Kidney stones: Denies family history of Osteoporosis or hip fracture. UTD on dental cleanings and sees dentist every 6 months. Has planned upcoming dental work for broken teet or extractions. DXA dated :FINDINGS: LEFT FEMUR, NECK: Current: BMD 0.749 g/cm2, Z-score -1.1, T-score -2.1, osteopenia. Prior: BMD 0.683 g/cm2. Baseline: BMD 0.919 g/cm2. LEFT FEMUR, TOTAL: Current: BMD 0.772 g/cm2, Z-score -1.2, T-score -1.9, osteopenia, 10.8% increase from previous, 25.8% decrease from baseline (<5% change is not significant). Prior: BMD 0.697 g/cm2. Baseline: BMD 1.041 g/cm2. AP SPINE L1-L4: Current: BMD 0.885 g/cm2, Z-score -1.6, T-score -2.5, osteoporosis, 5.5% decrease from previous, 20.5% decrease from baseline (<5% change is not significant). Prior: BMD 0.937 g/cm2. Baseline: BMD 1.113 g/cm2. Labs: [facility] Medical History Flank pain Dysuria Recurrent UTI Swelling of joint, ankle, right Swelling of right foot Right patella fracture Well woman exam Abnormal mammogram Well woman exam Goiter Hypercalciuria Vitamin D deficiency Hypothyroidism History of secondary hyperparathyroidism Hyperparathyroidism Surgical History H/O bilateral salpingo-oophorectomy S/P gastric bypass H/O left breast biopsy H/O: hysterectomy History of bilateral tubal ligation History of appendectomy Family History Mother Uterine cancer Father No problems noted. 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 Absence of blue sclera. Absence of kyphosis. Thyroid gland is of nl size and weighs 15 gms. There are no thyroid nodules palpated. Lungs CTA. Heart S1 S2 Reg R/R Abdominal exam benign. Muscle strength 5/5 . Examination of spine reveals absence of tenderness on palpation Assessment & Plan Assessment & Plan (1) Osteoporosis: Code(s): M81.0 - Age-related osteoporosis without current pathological fracture Category: Medical Plan: This is a 59-year-old female with a history of osteoporosis with secondary workup in the past suggestive of 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 Recent 24 hour urine for calcium was normal. Currently on calcium and vitamin-D supplementation. Pharmacologic therapy is warranted considering risk factors as well as high urinary NTX After careful discussion with the patient going over options of therapy, we start Evista 60 mg q.d.. Patient was warned about the side effects including but not limited to flashes and risk of DVT. Will recheck urine NTX in 3-4 months prior to follow-up visit Orders: Orders Collagen Crosslinks NTX 3 Months M81.0 - Age-related osteoporosis without current pathological fracture Medications: New raloxifene (Evista) 60 mg PO DAILY 30 tabs 4RF Coding Level of Care Code New Pt Level 4 (58088) Diagnoses Osteoporosis M81.0
== END 2024-02-15 10:44 | disposition home or self-care (01) ==
PROVIDERS: PCP Nurse Practitioner Primary Care; Referring Provider Nurse Practitioner Primary Care; Visit Provider Internal Medicine Endocrinology, Diabetes & Metabolism
DX: M81.0 Age-related osteoporosis without current pathological fracture (principal)
CPT/HCPCS: 99214

== ENCOUNTER → 2024-02-15 09:51 | Outpatient (BNVA) | payer MEDICAID, SELFPAY | PROVIDERS: PCP Nurse Practitioner Primary Care; Visit Provider Internal Medicine Endocrinology, Diabetes & Metabolism | DX: M81.0 Age-related osteoporosis without current pathological fracture (principal) | CPT/HCPCS: 99212 ==

== ENCOUNTER 2024-02-18 10:30 | Outpatient (REF) | payer MEDICAID, SELFPAY | END 2024-02-18 10:31 | disposition home or self-care (01) | LOC: HO.LAB 10:30 | PROVIDERS: Absent Provider Internal Medicine Endocrinology, Diabetes & Metabolism; PCP Internal Medicine; Visit Provider Nurse Practitioner Family | DX: N39.0 Urinary tract infection, site not specified (principal) | CPT/HCPCS: 87086 ==

== ENCOUNTER 2024-02-26 21:18 | Emergency (ER) | payer MEDICAID, SELFPAY ==
[2024-02-26 21:55] VITALS: BP 114/75; PULSE 75; RESP 20; TEMP 37.1; O2SAT 100; BMI 25.1
[2024-02-26 22:18] LABS: Basophils Absolute Auto 0.1 X10*3/uL (0.0-0.2); Basophils Percent Auto 1.1 % (0-2); Eosinophils Absolute Auto 0.1 X10*3/uL (0.0-0.4); Eosinophils Percent Auto 1.9 % (0-4); Hematocrit 36.1 % (37.0-47.0); Imm Gran Abs Auto 0.01 X10*3/uL (0.00-0.03); Imm Gran Pct Auto 0.2 % (0.0-0.4); Lymphocytes Absolute Auto 3.3 X10*3/uL (1.2-4.9); Lymphocytes Percent Auto 50.8 % (20-40); MANUAL DIFF FLAG NO; Mean Corpuscular HGB Conc 33.2 g/dl (31.0-35.0); Mean Corpuscular Hemoglobin 25.6 pg (27.0-33.0); Mean Platelet Volume 7.9 fL (9.4-12.3); Monocytes Absolute Auto 0.6 X10*3/uL (0.1-1.2); Monocytes Percent Auto 9.3 % (2-11); Neutrophils Absolute Auto 2.4 x10*3/uL (2.0-8.3); Neutrophils Percent Auto 36.7 % (45-73); Platelet Count 324 X10*3/uL (160-400); Red Blood Count 4.69 X10*6/uL (4.20-5.50); Red Cell Distribution Width 16.7 % (11.0-16.0); White Blood Count 6.5 X10*3/uL (4.8-10.8)
[2024-02-26 22:24] LABS: INTERNATIONAL NORM RATIO 1.1 (0.9-1.1); Prothrombin Time 12.9 SEC (11.1-13.3)
[2024-02-26 22:40] LABS: Alanine Aminotransferase 14 U/L (0-31); Alkaline Phosphatase 109 U/L (39-117); Anion Gap 10 (12-20); Aspartate Amino Transferase 19 U/L (5-31); Bilirubin Total 0.4 mg/dL (0.0-1.0); Blood Urea Nitrogen 9 mg/dL (9-16); Calcium 8.8 mg/dL (8.4-10.2); Carbon Dioxide 26 mmol/L (22-29); Chloride 105 mmol/L (96-108); Creatinine Clr Calc Pharmacy 56.8; Estimated Glomerular Filt Rate 54; Glucose Random 98 mg/dL (60-115); Potassium 3.1 mmol/L (3.3-5.1); Sodium 138 mmol/L (135-145)
[2024-02-26 23:18] VITALS: BP 107/68; PULSE 75; RESP 15; TEMP 36.6; O2SAT 99
[2024-02-26 23:28] LABS: Appearance Urine Clear; Color Urine Yellow; Glucose Urine UA Negative (Negative); Leukocyte Esterase Urine Large (3+) (Negative); Nitrite Urine Negative (Negative); Specific Gravity - Urine <= 1.005 (1.005-1.025); UMIC TRIGGER UACC YES; Urine Blood Negative (Negative); Urine Ketones Negative (Negative); Urine Protein Negative (Neg-Trace)
[2024-02-26 23:33] LABS: Bacteria Urine None Seen (None Seen); Hyaline Casts Urine 0-2 /LPF (0-2); RBC Urine 0-2 /HPF (0-2); Squamous Epithelial Cell Urine 0-2 /HPF (0-2); UACC Culture Trigger YES; WBC Urine 21-50 /HPF (0-5)
--- NOTE | 2024-02-27 00:08 | ED.GENADULT ---
HPI - General Adult General Chief complaint: Recheck/Abnormal Lab/Rx Stated complaint: Anemia/Cyst Time Seen by Provider: 02/27/24 00:08 Source: patient Mode of arrival: ambulatory Limitations: no limitations History of Present Illness ED Provider: Romero PARSON HPI narrative: 59-year-old female history of Hypothyroidism, hyperparathyroidism, bilateral salpingo-oophorectomy, osteoporosis, urinary incontinence presents to the emergency department with multiple complaints. She is requesting that she be tested for diabetes she is concerned she may be diabetic. He is also requesting that we check her hemoglobin and hematocrit she thinks she may be anemic. She has never needed a blood transfusion has not yet seen Hematology. Denies any bleeding. No known bleeding disorders. Patient also concerned that she had a cyst in her coccyx region that ?burst? this has been there for a few days. Now it is starting to bother her. Denies fevers, chills, chest pain, shortness of breath, nausea, vomiting, abdominal pain, headache, vision changes, dizziness and weakness. Related Data Home Medications ?Medication ?Instructions ?Recorded ?Confirmed cyanocobalamin (vitamin B-12) 1,000 mcg PO DAILY 07/05/20 06/10/23 1,000 mcg capsule bupropion HCl 150 mg 24 hr tablet, 150 mg PO QAM 11/24/21 06/10/23 extended release clonazepam 1 mg tablet 1 mg PO BEDTIME 11/24/21 06/10/23 diltiazem HCl 180 mg 180 mg PO DAILY 11/24/21 06/10/23 capsule,extended release 24 hr fluticasone propionate 110 1 puff PO BID 11/24/21 06/10/23 mcg/actuation HFA aerosol inhaler (Flovent HFA) hydroxyzine pamoate 50 mg capsule 50 mg PO TID PRN anxiety 11/24/21 06/10/23 pantoprazole 40 mg tablet,delayed 40 mg PO DAILY 11/24/21 06/10/23 release cholecalciferol (vitamin D3) 50 2,000 unit PO DAILY 11/26/21 06/10/23 mcg (2,000 unit) capsule losartan 50 mg tablet 50 mg PO DAILY blood pressure 11/24/22 06/10/23 levothyroxine 25 mcg tablet 25 mcg PO DAILY 01/08/23 06/10/23 riboflavin (vitamin B2) 100 mg 200 mg PO BID 01/08/23 06/10/23 tablet (Vitamin B-2) topiramate 50 mg tablet 50 mg PO QID 01/08/23 06/10/23 mirtazapine 30 mg tablet 30 mg PO BEDTIME 03/10/23 06/10/23 Previous Rx's ?Medication ?Instructions ?Recorded hydrochlorothiazide 12.5 mg tablet 12.5 mg PO DAILY 90 days #90 tabs 01/13/23 lidocaine 5 % topical patch 1 patch topical DAILY #15 ea 03/07/23 (Lidoderm) pyridoxine (vitamin B6) 100 mg 100 mg PO DAILY 90 days #90 tabs 08/31/23 tablet sulfamethoxazole 800 1 tab PO BID 14 days #28 tabs 10/08/23 mg-trimethoprim 160 mg tablet (Bactrim DS) trimethoprim 100 mg tablet 100 mg PO DAILY 90 days #90 tabs 10/08/23 gabapentin 100 mg capsule 100 mg PO TID #270 caps 12/06/23 raloxifene 60 mg tablet (Evista) 60 mg PO DAILY #30 tabs 02/15/24 cephalexin 500 mg tablet 500 mg PO Q6H 10 days #40 tabs 02/27/24 doxycycline hyclate 100 mg capsule 100 mg PO BID 10 days #20 caps 02/27/24 ketorolac 10 mg tablet 10 mg PO TID PRN pain 5 days #15 02/27/24 tabs Allergies Allergy/AdvReac Type Severity Reaction Status Date / Time ondansetron [From ZOFRAN] Allergy Unknown per H&P Verified 02/26/24 21:59 sumatriptan [From IMITREX] Allergy Unknown RASH FROM Verified 02/26/24 21:59 TABLET NOT INJECTION promethazine [From PHENERGAN] AdvReac Severe DYSTONIA Verified 02/26/24 21:59 Review of Systems Review of Systems: Yes all other systems are reviewed and are negative PMFSH Past Medical History Attestation statement: The following information was validated with the patient. Source: old records reviewed and nursing notes reviewed Medical History Flank pain Dysuria Recurrent UTI Swelling of joint, ankle, right Swelling of right foot Right patella fracture Well woman exam Abnormal mammogram Well woman exam Goiter Hypercalciuria Vitamin D deficiency Hypothyroidism History of secondary hyperparathyroidism Hyperparathyroidism Surgical History H/O bilateral salpingo-oophorectomy S/P gastric bypass H/O left breast biopsy H/O: hysterectomy History of bilateral tubal ligation History of appendectomy Family History Family History Mother Uterine cancer Father No problems noted. 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 Oriented X3.? No acute distress.? Head: Normocephalic, atraumatic, no step-offs or deformities Eyes: Pupils equal, round and reactive to light.? ENT: Pharynx normal.? Neck: Normal inspection.? Neck supple.? CVS: Normal heart rate and rhythm.? Pulses normal.? Respiratory: No respiratory distress.? Breath sounds normal.? Abdomen: Soft and nontender.? Skin: Skin warm and dry.? Normal skin color.? Normal skin turgor.? +small developing abscess to left buttocks with centralized area with purulence that is self draining. Overlying erythema and warmth. No fluctuance, induration noted . Extremities: No lower extremity edema.? No calf ttp. 5/5 strength to bilateral upper and lower extremities Back: No midline tenderness, no C-spine tenderness, full range of motion, no CVA tenderness bilaterally Neuro: Oriented X 3.? No motor deficit.? No sensory deficit. CN 2-12 intact . Normal finger to nose, heel to marroquin, steady tandem gait normal coordination Course Reevaluation(s) Reevaluation #1: CBC with no acute findings requiring intervention chronically low hematocrit however appears to be around her baseline. Low MCV. Chemistry with low potassium 3.1 will give oral potassium at this time. No other abnormalities needing intervention. Used a needle to deroof area on left buttocks now self draining. Advised wound check in 3-4 days. PO atbx will be sent Time: 00:15 Reevaluation #2: Educated patient on diagnosis and treatment plan, answered all question, patient verbalizes understanding. At this time patient will be discharged home, advised to return with new or worsening symptoms. Educated on worrisome signs and symptoms and when to return. At this time I feel comfortable discharge home. Time: 00:26 Medical Decision Making Medical Decision Making [facility] Narrative: [id number] 59-year-old female presents requesting lab work to see if she is anemic and diabetic also concerned that she has a cyst in her coccyx region. Also complaining of nausea and headache Physical exam with a small developing abscess to left buttocks with centralized area with purulence that is self draining. Overlying erythema and warmth. No fluctuance, induration noted . NIH stroke scale 0 History and physical exam concerning for migraine versus headache. Unlikely intracranial hemorrhage, stroke, posterior stroke. I suspect developing abscess that is self draining with mild cellulitis overlying. Unlikely pilonidal cyst. Unlikely necrotizing infection. Will rule out anemia. Diabetes workup should be followed up with her PCP. Not appropriate for emergency department. Unlikely DKA, HHS. Will rule out metabolic derangement Plan labs, urine Differential Diagnosis Differential Diagnoses: The differential diagnosis associated with the presentation includes History and physical exam concerning for migraine versus headache. Unlikely intracranial hemorrhage, stroke, posterior stroke. I suspect developing abscess that is self draining with mild cellulitis overlying. Unlikely pilonidal cyst. Unlikely necrotizing infection. Will rule out anemia. Diabetes workup should be followed up with her PCP. Not appropriate for emergency department. Unlikely DKA, HHS. Will rule out metabolic derangement Admission/Observation Consideration of admission/observation: Escalation of care including admission/observation considered Lab Data [facility] Lab Attestation statement: I reviewed the patient's lab results. 02/26/24 22:13 02/26/24 22:13 Labs: Lab Results 02/26/24 02/26/24 Range/Units 22:13 23:22 WBC 6.5 (4.8-10.8) X10*3/uL RBC 4.69 (4.20-5.50) X10*6/uL Hgb 12.0 (12.0-16.0) g/dl Hct 36.1 L (37.0-47.0) % MCV 77.0 L (80.0-98.0) fL MCH 25.6 L (27.0-33.0) pg MCHC 33.2 (31.0-35.0) g/dl RDW 16.7 H (11.0-16.0) % Plt Count 324 (160-400) X10*3/uL MPV 7.9 L (9.4-12.3) fL Immature Gran % (Auto) 0.2 (0.0-0.4) % Neut % (Auto) 36.7 L (45-73) % Lymph % (Auto) 50.8 H (20-40) % [place] % (Auto) 9.3 (2-11) % Eos % (Auto) 1.9 (0-4) % Baso % (Auto) 1.1 (0-2) % Lymph # (Auto) 3.3 (1.2-4.9) X10*3/uL [place] # (Auto) 0.6 (0.1-1.2) X10*3/uL Eos # (Auto) 0.1 (0.0-0.4) X10*3/uL Baso # (Auto) 0.1 (0.0-0.2) X10*3/uL Abs Immat Gran (auto) 0.01 (0.00-0.03) X10*3/uL Absolute Neuts (auto) 2.4 (2.0-8.3) x10*3/uL Absolute Nucleated RBC 0.000 (0.0-0.012) X10*3/uL Nucleated RBC % (auto) 0.0 (0.0-0.2) /100WBC PT 12.9 (11.1-13.3) SEC INR 1.1 (0.9-1.1) Sodium 138 (135-145) mmol/L Potassium 3.1 L (3.3-5.1) mmol/L Chloride 105 (96-108) mmol/L Carbon Dioxide 26 (22-29) mmol/L Anion Gap 10 L (12-20) BUN 9 (9-16) mg/dL Creatinine 1.05 (0.5-1.4) mg/dL Estim Creat Clear Calc 56.8 Estimated GFR 54 Random Glucose 98 (60-115) mg/dL Calcium 8.8 (8.4-10.2) mg/dL Total Bilirubin 0.4 (0.0-1.0) mg/dL AST 19 (5-31) U/L ALT 14 (0-31) U/L Alkaline Phosphatase 109 (39-117) U/L Total Protein 7.0 (6.5-8.0) g/dL Albumin 4.0 (3.5-5.0) g/dL Urine Color Yellow Urine Appearance Clear Urine pH 7.0 (5.0-9.0) Ur Specific [place] <= 1.005 (1.005-1.025) Urine Protein Negative (Neg-Trace) mg/dL Urine Glucose (UA) Negative (Negative) mg/dL Urine Ketones Negative (Negative) mg/dL Urine Blood Negative (Negative) Urine Nitrite Negative (Negative) Ur Leukocyte Esterase Large (3+) H (Negative) Urine RBC 0-2 (0-2) /HPF Urine WBC 21-50 H (0-5) /HPF Ur Squamous Epith Cells 0-2 (0-2) /HPF Urine Bacteria None Seen (None Seen) Hyaline Casts 0-2 (0-2) /LPF External Record Review External record reviewed: Inpatient record, Office record, Outpatient record, Prior outpatient labs, Prior outpatient radiology, Primary care record and Outside ED record Chronic Conditions Patient?s care impacted by: Other (Hypothyroidism, hyperparathyroidism, bilateral salpingo-oophorectomy, osteoporosis, urinary incontinence) Critical Care Time Critical Care Time Critical Care Time: No Discharge Plan Discharge Clinical Impression: Blood glucose elevated, Headache, Abscess, Hypokalemia Patient Disposition: Home, Self-Care Instructions: Pilonidal Cyst (ED), Acute Headache (DC) Additional Instructions: Take your medications as prescribed. If you were prescribed antibiotics today, it is important that you take your medication to their entirety, do not skip any doses, do not finish them early. Follow-up with your primary care provider this week. Return to the emergency department with new or worsening symptoms. Such as fevers, chills, chest pain, shortness of breath, nausea, vomiting, dizziness, headache, vision changes, lethargy In case of emergency call 911 Toradol has been sent to your pharmacy, you tolerated this well in the department. Please take this as prescribed do not take this with ibuprofen, or other NSAIDs, do not mix this with alcohol. Side effects of this medication including increased risk for bleeding and possible kidney injury. Diabetes with something that should be followed up with with your primary care provider not here in the emergency department. Please follow-up with hematology for your concerns about your hemoglobin and hematocrit. This is a workup that is further evaluated by a specialist or your primary care provider not here in the emergency department. Follow up with your pcp to repeat check your potassium Prescriptions: New doxycycline hyclate 100 mg capsule 100 mg PO BID 10 Days Qty: 20 0RF ketorolac 10 mg tablet 10 mg PO TID PRN (Reason: pain) 5 Days Qty: 15 0RF cephalexin 500 mg tablet 500 mg PO Q6H 10 Days Qty: 40 0RF No Action cyanocobalamin (vitamin B-12) 1,000 mcg capsule 1,000 mcg PO DAILY cholecalciferol (vitamin D3) 50 mcg (2,000 unit) capsule 2,000 unit PO DAILY hydrochlorothiazide 12.5 mg tablet 12.5 mg PO DAILY 90 Days Qty: 90 3RF pyridoxine (vitamin B6) 100 mg tablet 100 mg PO DAILY 90 Days Qty: 90 1RF gabapentin 100 mg capsule 100 mg PO TID Qty: 270 3RF lidocaine [Lidoderm] 5 % adhesive patch,medicated 1 patch topical DAILY Qty: 15 0RF Rx Instructions: leave on most painful area for up to 12 hrs clonazepam 1 mg tablet 1 mg PO BEDTIME Rx Instructions: administer 30 minutes before bedtime bupropion HCl 150 mg tablet extended release 24 hr 150 mg PO QAM pantoprazole 40 mg tablet,delayed release (DR/EC) 40 mg PO DAILY diltiazem HCl 180 mg capsule,extended release 24hr 180 mg PO DAILY Flovent HFA 110 mcg/actuation HFA aerosol inhaler 1 puff PO BID hydroxyzine pamoate 50 mg capsule 50 mg PO TID PRN (Reason: anxiety) losartan 50 mg tablet 50 mg PO DAILY levothyroxine 25 mcg tablet 25 mcg PO DAILY topiramate 50 mg tablet 50 mg PO QID riboflavin (vitamin B2) [Vitamin B-2] 100 mg tablet 200 mg PO BID mirtazapine 30 mg tablet 30 mg PO BEDTIME sulfamethoxazole-trimethoprim [Bactrim DS] 800-160 mg tablet 1 tab PO BID 14 Days Qty: 28 0RF trimethoprim 100 mg tablet 100 mg PO DAILY 90 Days Qty: 90 1RF Rx Instructions: Start daily once treatment of/for UTI is completed raloxifene [Evista] 60 mg tablet 60 mg PO DAILY Qty: 30 4RF Referrals: [facility] [place] Oncology/Hematology [Provider Group] - 2 days Nupur Weir NP [Primary Care Provider] - 2 days Print Language: Czech
[2024-02-27] MEDS: Potassium Chloride Packet 20 MEQ PACKET 40 MEQ PO (00:41)
[2024-02-27] MEDS: Ketorolac Tromethamine 30 MG/ML VIAL IM (00:42)
[2024-02-27 00:48] VITALS: BP 107/68; PULSE 75; RESP 15; TEMP 36.6; O2SAT 99
== END 2024-02-27 00:52 | disposition home or self-care (01) ==
PROVIDERS: Emergency Provider Emergency Medicine; PCP Nurse Practitioner Primary Care
DX: L05.01 Pilonidal cyst with abscess (principal); R73.9 Hyperglycemia, unspecified; R51.9 Headache, unspecified
CPT/HCPCS: 36415; 80053; 81001; 85025; 85610; 87086; 96372; 99284; J1885

== ENCOUNTER 2024-02-28 11:21 | Outpatient (AMB) | payer MEDICAID, SELFPAY ==
--- NOTE | 2024-02-28 11:40 | MHC.OFFVIS ---
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 Required: No Accompanied by: Self / Same As Patient Allergies ondansetron [From ZOFRAN] Allergy (Unknown, Verified 02/28/24 13:27) per H&P sumatriptan [From IMITREX] Allergy (Unknown, Verified 02/28/24 13:27) RASH FROM TABLET NOT INJECTION promethazine [From PHENERGAN] Adverse Reaction (Severe, Verified 02/28/24 13:27) DYSTONIA Medication List - Last Reconciled 02/28/24 by SHANDA BhatiaP- bupropion HCl XL 150 mg PO QAM cephalexin 500 mg PO Q6H 10 days cholecalciferol (vitamin D3) 2,000 units PO DAILY clonazepam 1 mg PO BEDTIME cyanocobalamin (vitamin B-12) 1,000 mcg PO DAILY diltiazem HCl CD 180 mg PO DAILY doxycycline hyclate 100 mg PO BID 10 days fluticasone propionate 110 mcg/actuation (Flovent HFA) 1 puff PO BID gabapentin 100 mg PO TID hydrochlorothiazide 12.5 mg PO DAILY 90 days hydroxyzine pamoate 50 mg PO TID PRN ketorolac 10 mg PO TID PRN 5 days levothyroxine 25 mcg PO DAILY lidocaine 5% (Lidoderm) 1 patch topical DAILY losartan 50 mg PO DAILY mirtazapine 30 mg PO BEDTIME pantoprazole 40 mg PO DAILY pyridoxine (vitamin B6) 100 mg PO DAILY 90 days raloxifene (Evista) 60 mg PO DAILY riboflavin (vitamin B2) (Vitamin B-2) 200 mg PO BID topiramate 50 mg PO QID HPI Comments Details: Laura is a pleasant 59 year old female patient of Dr. Weir. She has a past medical history of goiter, hypercalciuria interstitial cystitis, BV, osteoporosis, and hyperthyroidism. She presents to the office today for follow-up of her nephrolithiasis, recurrent urinary tract infections and pyelonephritis. In discussion with the patient today she reports to be doing and feeling well urologically however has been experiencing issues with an abscess to the left buttocks (Pilonidal Cyst). She reports having followed up with [facility] and has been on antibiotic therapy since 02/27/24 doxycycline and cephalexin. She also reports having gone to oncology prior to this appointment today to schedule an appointment for her ongoing issues with her blood work and potential anemia. She currently denies any bothersome urinary issues or concerns. She reports having stopped her low-dose trimethoprim as she has been on antibiotics for pilonidal cyst. In office urinalysis results reviewed with the patient today. She currently denies any UTI like symptoms. She denies urinary urgency, urinary frequency, incontinence, nocturia, hematuria, foul smelling urine, changes to urinary stream, flank pain, fever, and or chills. Previous imaging 09/22 renal ultrasound noted right kidney with mid pole 0.3 cm calculus and upper pole was 0.3 cm calculus. No hydronephrosis. Left kidney with no hydronephrosis and or calculi noted. Patient had previously been on Estrace cream however does not wish to continue. PVR 32 mL. She otherwise offers no other issues or concerns at this time. [facility] Medical History (Updated 02/28/24 @ 13:53 by LUCRECIA Bhatia) Recurrent UTI Flank pain Dysuria Swelling of joint, ankle, right Swelling of right foot Right patella fracture Well woman exam Abnormal mammogram Well woman exam Goiter Hypercalciuria Vitamin D deficiency Hypothyroidism History of secondary hyperparathyroidism Hyperparathyroidism Surgical History H/O bilateral salpingo-oophorectomy S/P gastric bypass H/O left breast biopsy H/O: hysterectomy History of bilateral tubal ligation History of appendectomy Family History Mother Uterine cancer Father No problems noted. 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 Sexual orientation: Straight/Heterosexual Gender identity: Female Female Reproductive History Menstrual Age of Menarche: 13 Review of Systems Const All systems reviewed & are unremarkable except as noted in HPI and below Reports as per HPI Eyes Reports no additional complaints ENT Reports no additional complaints Card Reports no additional complaints Resp Reports no additional complaints GI Reports no additional complaints Reports as per HPI Musc Reports as per HPI Neuro Reports no additional complaints Psych Reports anxiety and Reports depression Endo Reports as per HPI Aman/Lymph Reports no additional complaints Aller/Immun Reports no additional complaints Physical Exam Const General: cooperative, healthy appearing, comfortable, no acute distress, well developed, alert and awake Orientation/consciousness: patient oriented x3 Limitations: no limitations HEENT Head: Yes normal to inspection, Yes normocephalic and Yes atraumatic Ears: hearing grossly normal bilaterally Eyes General: appearance normal, both eyes and all related structures Neck Neck: Yes normal visual inspection and Yes trachea midline Chest Chest palpation & inspection: normal inspection of the chest Resp Effort & Inspection: normal respiratory effort and able to speak in complete sentences Cardio Rate: regular rate GI Inspection: Yes normal to inspection General: Yes no CVA tenderness Back/Spine/Pelvis Back: no CVA tenderness Skin General skin exam: no rashes or lesions noted Neuro General: patient oriented x3 Extrem General: Yes normal to inspection Psych Appearance: grossly normal and well kempt Mental Status: mental status grossly normal Speech and movement: Normal speech and movement present and Clear speech present Affect: normal affect Attitude: cooperative Thought process: Normal thought process present Thought content: Normal thought content present Insight: Fair insight present (Psych) Judgement: Fair judgement present (Psych) Office Procedures Post Void Residual Post Residual Void Post Void Residual (PVR): 32 [id number] Void Residual by ultrasound Results AMB Urinalysis, Automated UA Leukoctes 15 Ynes/uL Last Edit by [employer] Della on 02/28/24 12:00 UA Nitrite Negative Last Edit by [employer] Della on 02/28/24 12:00 UA Urobilinogen 0.2 mg/dL Last Edit by [employer] on 02/28/24 12:00 UA Protein 15 mg/dL Last Edit by [employer] on 02/28/24 12:00 UA pH 8.5 Last Edit by [employer] on 02/28/24 12:00 UA Blood 0 Christiano/uL Last Edit by [employer] on 02/28/24 12:00 UA Specific [place] 1.005 Last Edit by [employer] on 02/28/24 12:00 UA Ketone Negative Last Edit by [employer] on 02/28/24 12:00 UA Bilirubin 1 mg/dL Last Edit by Lara Hull on 02/28/24 12:00 UA Glucose 0 mg/dL Last Edit by Lara Hull on 02/28/24 12:00 Results Reviewed Results Reviewed: Laboratory Last Values Urine pH (Auto) 8.5 02/28/24 11:48 Specific [place] (Auto) 1.005 02/28/24 11:48 Urine Protein (Auto) 15 mg/dL 02/28/24 11:48 Glucose (UA)(Auto) 0 mg/dL 02/28/24 11:48 Urine Ketones (Auto) Negative 02/28/24 11:48 Urine Blood (Auto) 0 [place]/uL 02/28/24 11:48 Urine Nitrite (Auto) Negative 02/28/24 11:48 Urine Bilirubin (Auto) 1 mg/dL 02/28/24 11:48 Urine Urobilinogen (Auto) 0.2 mg/dL 02/28/24 11:48 Leukocyte Esterase (Auto) 15 Ynes/uL 02/28/24 11:48 Assessment & Plan Assessment & Plan (1) Nephrolithiasis: Code(s): N20.0 - Calculus of kidney Category: Medical Plan In office urinalysis results reviewed with the patient today; as noted above. PVR 32 mL. Patient currently denies any bothersome urinary issues or concerns. She reports be happy with current voiding parameters. Stop trimethoprim as discussed Discussed UTI prevention with D mannose supplement, vitamin-C, increasing fluid intake, behavioral therapy with timed voiding, perineal hygiene and postcoital voiding, and management of constipation with stool softeners and increased fiber intake. Will obtain renal ultrasound in 3 months. Follow-up in 3 months with imaging to be completed prior; or sooner with any issues, concerns, and or questions. Orders: Orders AMB Urinalysis Automated Today Z13.9 - Encounter for screening, unspecified AMB Post Void Residual by ultrasound Today R32 - Unspecified urinary incontinence US renal BI 3 Months N20.0 - Calculus of kidney Patient Instructions: The patient had an opportunity to ask questions regarding the treatment plan. All questions were answered. Physical exam, labs, and imaging were discussed and reviewed in detail. As well as risks, benefits, and discussion of treatment choices. No major barriers to understanding were identified. The patient expressed understanding and agreement with the above treatment plan. The patient was made aware they should contact our office by phone for worsening of their current condition, the appearance of new symptoms, or with any questions or concerns. Compliance is encouraged with any medications and follow up testing that is ordered. It is a privilege to be allowed the opportunity to participate in? your urological care.? Again, if you have any questions or concerns If you have any questions or concerns please do not hesitate to contact me. The office is [phone]. This note is constructed using voice recognition software. While every effort has been made to ensure accuracy coin box collector errors may have been included. Yours sincerely, JEANETH Bhatia Coding Level of Care Code Est Pt Level 3 (80405) Diagnoses Nephrolithiasis N20.0 CPT Codes Post Residual Void - PVR CPT Code: 01401-Pruf Void Residual by ultrasound ([id number])
== END 2024-02-28 12:22 | disposition home or self-care (01) ==
PROVIDERS: PCP Nurse Practitioner Primary Care; Visit Provider Nurse Practitioner Family
DX: Z13.9 Encounter for screening, unspecified (principal); N20.0 Calculus of kidney
CPT/HCPCS: 99213

== ENCOUNTER → 2024-02-28 11:21 | Outpatient (BNVA) | payer MEDICAID, SELFPAY | PROVIDERS: PCP Nurse Practitioner Primary Care; Visit Provider Nurse Practitioner Family | DX: N20.0 Calculus of kidney (principal); R32 Unspecified urinary incontinence; Z87.440 Personal history of urinary (tract) infections | CPT/HCPCS: 51798; 81003; 99212 ==

== ENCOUNTER 2024-04-11 12:16 | Outpatient (REF) | payer MEDICAID, SELFPAY ==
[2024-04-11 13:52] LABS: Anion Gap 14 (12-20); Blood Urea Nitrogen 10 mg/dL (9-16); C Reactive Protein < 0.04 mg/dL (< or = 0.50); Calcium 9.4 mg/dL (8.4-10.2); Carbon Dioxide 24 mmol/L (22-29); Chloride 103 mmol/L (96-108); Estimated Glomerular Filt Rate 47; Glucose Random 114 mg/dL (60-115); Potassium 3.1 mmol/L (3.3-5.1); Sodium 138 mmol/L (135-145)
[2024-04-11 14:07] LABS: Erythrocyte Sedimentation Rate 2 MM/HR (0-20)
== END 2024-04-11 12:17 | disposition home or self-care (01) ==
LOC: HO.HHCL 12:16
PROVIDERS: Visit Provider Nurse Practitioner Primary Care
DX: E87.6 Hypokalemia (principal); R53.1 Weakness
CPT/HCPCS: 36415; 80048; 83735; 85652; 86140

== ENCOUNTER 2024-04-21 11:35 | Outpatient (REF) | payer MEDICAID, SELFPAY ==
[2024-04-21 13:56] LABS: Anion Gap 8 (12-20); Blood Urea Nitrogen 8 mg/dL (9-16); Calcium 8.9 mg/dL (8.4-10.2); Carbon Dioxide 23 mmol/L (22-29); Chloride 114 mmol/L (96-108); Estimated Glomerular Filt Rate > 60; Glucose Random 93 mg/dL (60-115); Potassium 3.8 mmol/L (3.3-5.1); Sodium 141 mmol/L (135-145)
== END 2024-04-21 11:36 | disposition home or self-care (01) ==
LOC: HO.HHCL 11:35
PROVIDERS: Visit Provider Nurse Practitioner Primary Care
DX: E87.6 Hypokalemia (principal)
CPT/HCPCS: 36415; 80048

== ENCOUNTER 2024-05-04 14:58 | Outpatient (AMB) | payer MEDICAID, SELFPAY ==
--- NOTE | 2024-05-04 15:00 | A.OFFVIS_ITS ---
Vital Signs 05/04/24 15:01 Height 5 ft 5 in Weight 150 lb BMI 25.0 BP 117/72 Blood Pressure Location Rt brachial Position Sitting Pulse 59 Intake Visit Reasons: Pilonidal Cyst Intake Note: This patient presents for Pilonidal Cyst assessment. Pt c/o; reports when she has a flare-up she gets redness on the skin and then several days later it turns into little blister's with oozing, reports completed two rounds of antibiotics in January 2024, reports she gets a flare approximately every 1 1/2 months, reports when she gets the flare-up it is painful for x1 week, reports burning sensation from the inside out and she feels like it want's to burst. 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 Required: No Accompanied by: Self / Same As Patient Allergies ondansetron [From ZOFRAN] Allergy (Unknown, Verified 05/04/24 15:01) per H&P sumatriptan [From IMITREX] Allergy (Unknown, Verified 05/04/24 15:01) RASH FROM TABLET NOT INJECTION promethazine [From PHENERGAN] Adverse Reaction (Severe, Verified 05/04/24 15:01) DYSTONIA Medication List - Last Reconciled 05/04/24 by Raffy Ramirez MD bupropion HCl XL 150 mg PO QAM cephalexin 500 mg PO Q6H 10 days cholecalciferol (vitamin D3) 2,000 units PO DAILY clonazepam 1 mg PO BEDTIME cyanocobalamin (vitamin B-12) 1,000 mcg PO DAILY diltiazem HCl CD 180 mg PO DAILY doxycycline hyclate 100 mg PO BID 10 days fluticasone propionate 110 mcg/actuation (Flovent HFA) 1 puff PO BID gabapentin 100 mg PO TID hydrochlorothiazide 12.5 mg PO DAILY 90 days hydroxyzine pamoate 50 mg PO TID PRN ketorolac 10 mg PO TID PRN 5 days levothyroxine 25 mcg PO DAILY lidocaine 5% (Lidoderm) 1 patch topical DAILY losartan 50 mg PO DAILY mirtazapine 30 mg PO BEDTIME pantoprazole 40 mg PO DAILY pyridoxine (vitamin B6) 100 mg PO DAILY 90 days raloxifene (Evista) 60 mg PO DAILY riboflavin (vitamin B2) (Vitamin B-2) 200 mg PO BID topiramate 50 mg PO QID HPI HPI Pilonidal Cyst: Details: [age] year old female referred for Pilar cyst of the sacrococcygeal area. She describes an area of pain, swelling and drainage at the tailbone on and off for about 3 years now. She says that this happens every 1 to months and would improve after this drained spontaneously. However, she would notice reaccumulation. She has never had any surgery in the area before. She says that this keeps happening regularly wants this area removed. [facility] Medical History (Updated 05/04/24 @ 15:48 by Raffy Ramirez MD) Sacrococcygeal pilonidal cyst Recurrent UTI Flank pain Dysuria Swelling of joint, ankle, right Swelling of right foot Right patella fracture Well woman exam Abnormal mammogram Well woman exam Goiter Hypercalciuria Vitamin D deficiency Hypothyroidism History of secondary hyperparathyroidism Hyperparathyroidism Surgical History H/O bilateral salpingo-oophorectomy S/P gastric bypass H/O left breast biopsy H/O: hysterectomy History of bilateral tubal ligation History of appendectomy Family History Mother Uterine cancer Father No problems noted. 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 Sexual orientation: Straight/Heterosexual Gender identity: Female Female Reproductive History Menstrual Age of Menarche: 13 Review of Systems Const Denies chills and Denies fever(s) Card Denies chest pain, Denies dyspnea and Denies dyspnea on exertion Resp Denies cough, Denies dyspnea and Denies dyspnea on exertion GI Denies hematochezia and Denies change in bowel habits Denies hematuria Musc Denies back pain and Denies limited range of motion Neuro Denies focal weakness and Denies convulsions Psych Denies depression and Denies mood swings Physical Exam Vital Signs: Last Vital Signs Pulse 59 05/04/24 15:01 BP 117/72 05/04/24 15:01 BMI result Body Mass Index 25.0 Const General: comfortable and no acute distress Orientation/consciousness: patient oriented x3 Neck Neck: Yes no lymphadenopathy Resp Auscultation: clear to auscultation bilaterally Cardio Rhythm: regular rhythm GI Palpation (GI): Soft to palpation, nontender and no guarding Back/Spine/Pelvis Other: Faint induration to the left of the midline of the sacrococcygeal area, with no obvious sinus, no obvious midline pits at this time Neuro General: patient oriented x3 Assessment & Plan Assessment & Plan (1) Sacrococcygeal pilonidal cyst: Code(s): L05.91 - Pilonidal cyst without abscess Category: Medical Plan: She has this recurrent area of pain, swelling and drainage on the sacrococcygeal area to the left of the midline. She says this is happens every 1-2 months and this has been doing so for the past 2 years. Overall clinical picture is suggestive of a pilonidal cyst. I do not see any obvious midline pits I explained to her the option of excising this area of faint induration. This may be best done under anesthesia in the operating room. I explained the risks of excision of this pilonidal cyst including but not limited to bleeding, infections, recurrence, postop pain, poor healing, as well as the benefits and alternatives She says that this has been bothering her as this has been happening for several years now. She wants to proceed. Coding Level of Care Code New Pt Level 3 (85684) Diagnoses Sacrococcygeal pilonidal cyst L05.91
[2024-05-04 15:01] VITALS: BP 117/72; PULSE 59; BMI 25.0
== END 2024-05-04 15:47 | disposition home or self-care (01) ==
PROVIDERS: PCP Nurse Practitioner Primary Care; Visit Provider Surgery
DX: L05.91 Pilonidal cyst without abscess (principal)
CPT/HCPCS: 99203

== ENCOUNTER → 2024-05-04 14:58 | Outpatient (BNVA) | payer MEDICAID, SELFPAY | PROVIDERS: PCP Nurse Practitioner Primary Care; Visit Provider Surgery | DX: L05.91 Pilonidal cyst without abscess (principal) | CPT/HCPCS: 99202 ==

== ENCOUNTER 2024-05-10 11:22 | Outpatient (REF) | payer MEDICAID, SELFPAY ==
--- NOTE | ~2024-05-10 | US_ITS ---
EXAMINATION: US RETROPERITONEAL LIMITED (RENAL ONLY) CLINICAL INFORMATION: Calculus of kidney. COMPARISON: Ultrasound renal 08/31/2023. Ultrasound retroperitoneal 02/11/2023. CT abdomen and pelvis 02/01/2023. TECHNIQUE: Real-time imaging of the kidneys. FINDINGS: RIGHT KIDNEY: 10.3 x 3.4 x 5.8 cm (SAG x AP x TRV). The kidney is normal in size, contour, and echogenicity. Renal cortical thickness is normal. There are two echogenic foci in the kidney measuring 4 mm in size one in the mid kidney one in the upper pole. These are consistent with nonobstructing calculi. No focal parenchymal lesions or hydronephrosis. LEFT KIDNEY: 11.0 x 4.5 x 5.7 cm (SAG x AP x TRV). The kidney is normal in size, contour, and echogenicity. Renal cortical thickness is normal. No calculi or focal parenchymal lesions. No hydronephrosis. US/US renal BI IMPRESSION: Nonobstructing right renal calculi. Similar findings were seen on the 08/31/2023 study. Electronically signed by: Calin Doe MD 05/17/2024 02:10 PM EDT
== END 2024-05-10 11:23 | disposition home or self-care (01) ==
LOC: HO.US 11:22
PROVIDERS: PCP Nurse Practitioner Primary Care; Visit Provider Nurse Practitioner Family
DX: N20.0 Calculus of kidney (principal)
CPT/HCPCS: 76775

== ENCOUNTER 2024-05-12 10:22 | Day surgery (SDC) | payer MEDICAID, SELFPAY ==
--- NOTE | 2024-05-10 15:08 | P.CONAN_ITS ---
Documented by User: Shey Marrufo NP 05/10/24 15:09 HPI - Anesthesia Eval Consult details Narrative: 59yo F for Excision Pilonidal Cyst sacrococcygeal area s/p [facility] 12/2023 with [facility] Active Problems Active Problems: All Active Problems Sacrococcygeal pilonidal cyst (Acute) Recurrent UTI (Acute) Flank pain (Acute) Dysuria (Acute) Nephrolithiasis (Acute) Goiter (Acute) Interstitial cystitis (Acute) Urinary incontinence (Acute) Bacterial vaginosis (Acute) Hypercalciuria (Acute) Varicose veins of right lower extremity with inflammation (Acute) Osteoporosis (Acute) Vitamin D deficiency (Acute) Hypothyroidism (Acute) H/O bilateral salpingo-oophorectomy (Acute) History of secondary hyperparathyroidism (Acute) Hyperparathyroidism (Acute) Past Medical History Medical History Migraine HTN (hypertension) IBS (irritable bowel syndrome) GERD (gastroesophageal reflux disease) Chronic interstitial cystitis Sleep apnea Asthma Anemia Hypercholesteremia Depression Anxiety Sacrococcygeal pilonidal cyst Recurrent UTI Goiter Flank pain Dysuria Hypercalciuria Swelling of joint, ankle, right Swelling of right foot Vitamin D deficiency Hypothyroidism Right patella fracture History of secondary hyperparathyroidism Abnormal mammogram Well woman exam Family History Family History Mother Uterine cancer Father No problems noted. Family history of problems with anesthesia: No Surgical History Surgical History History of bladder surgery H/O bilateral salpingo-oophorectomy S/P gastric bypass H/O left breast biopsy H/O: hysterectomy History of bilateral tubal ligation History of appendectomy History of Problems with Anesthesia: No Social History Social History Household Members Other:: son Housing: Apartment Are you a primary acute care certified nursing assistant to a significant other at home: No Do you presently have visiting nurse or other home services: No Alcohol intake: never Patient Tobacco Use Status: Never used Tobacco Second Hand Smoke Exposure: No Use of substances other than those prescribed or required for medical reasons: No Have you been hit, kicked, punched, or otherwise hurt by someone within the past year? 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 Sexual orientation: Straight/Heterosexual Gender identity: Female Meds Allergies Allergy/AdvReac Type Severity Reaction Status Date / Time ondansetron [From ZOFRAN] Allergy Unknown per H&P Verified 05/12/24 10:29 sumatriptan [From IMITREX] Allergy Unknown RASH FROM Verified 05/12/24 10:29 TABLET NOT INJECTION promethazine [From PHENERGAN] AdvReac Severe DYSTONIA Verified 05/12/24 10:29 Home Medications ?Medication ?Instructions ?Recorded ?Confirmed ?Last Taken ?Type cyanocobalamin (vitamin B-12) 1,000 mcg PO DAILY 07/05/20 05/12/24 Unknown History 1,000 mcg capsule diltiazem HCl 180 mg 180 mg PO DAILY 11/24/21 05/12/24 05/11/24 History capsule,extended release 24 hr fluticasone propionate 110 1 puff PO BID 11/24/21 05/12/24 Unknown History mcg/actuation HFA aerosol inhaler (Flovent HFA) pantoprazole 40 mg tablet,delayed 40 mg PO DAILY 11/24/21 05/12/24 Unknown History release cholecalciferol (vitamin D3) 50 2,000 unit PO DAILY 11/26/21 05/12/24 Unknown History mcg (2,000 unit) capsule losartan 50 mg tablet 50 mg PO DAILY blood pressure 11/24/22 05/12/24 05/11/24 History levothyroxine 25 mcg tablet 25 mcg PO DAILY 01/08/23 05/12/24 Unknown History riboflavin (vitamin B2) 100 mg 200 mg PO BID 01/08/23 05/12/24 Unknown History tablet (Vitamin B-2) topiramate 50 mg tablet 100 mg PO BID 01/08/23 05/12/24 Unknown History Exam Pertinent Lab Results Pertinent Lab Results: Laboratory Tests 02/26/24 04/21/24 22:13 11:38 WBC 6.5 Hgb 12.0 Hct 36.1 L Plt Count 324 Sodium 141 Potassium 3.8 D Chloride 114 H Carbon Dioxide 23 BUN 8 L Creatinine 0.87 Assessment and Plan Assessment Anesthesia Assessment: Chart Reviewed Final Anesthetic Review Family History of Problems with Anesthesia: No History of Problems with Anesthesia: No Documented by User: Zoe Rooney MD 05/12/24 10:52 [facility] Past Medical History Medical History Migraine HTN (hypertension) IBS (irritable bowel syndrome) GERD (gastroesophageal reflux disease) Chronic interstitial cystitis Sleep apnea Asthma Anemia Hypercholesteremia Depression Anxiety Sacrococcygeal pilonidal cyst Recurrent UTI Goiter Flank pain Dysuria Hypercalciuria Swelling of joint, ankle, right Swelling of right foot Vitamin D deficiency Hypothyroidism Right patella fracture History of secondary hyperparathyroidism Abnormal mammogram Well woman exam Family History Family History Mother Uterine cancer Father No problems noted. Surgical History Surgical History History of bladder surgery H/O bilateral salpingo-oophorectomy S/P gastric bypass H/O left breast biopsy H/O: hysterectomy History of bilateral tubal ligation History of appendectomy Social History Social History Household Members Other:: son Housing: Apartment Are you a primary acute care certified nursing assistant to a significant other at home: No Do you presently have visiting nurse or other home services: No Alcohol intake: never Patient Tobacco Use Status: Never used Tobacco Second Hand Smoke Exposure: No Use of substances other than those prescribed or required for medical reasons: No Have you been hit, kicked, punched, or otherwise hurt by someone within the past year? 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 Sexual orientation: Straight/Heterosexual Gender identity: Female Meds Allergies Allergy/AdvReac Type Severity Reaction Status Date / Time ondansetron [From ZOFRAN] Allergy Unknown per H&P Verified 05/12/24 10:29 sumatriptan [From IMITREX] Allergy Unknown RASH FROM Verified 05/12/24 10:29 TABLET NOT INJECTION promethazine [From PHENERGAN] AdvReac Severe DYSTONIA Verified 05/12/24 10:29 Home Medications ?Medication ?Instructions ?Recorded ?Confirmed ?Last Taken ?Type cyanocobalamin (vitamin B-12) 1,000 mcg PO DAILY 07/05/20 05/12/24 Unknown History 1,000 mcg capsule diltiazem HCl 180 mg 180 mg PO DAILY 11/24/21 05/12/24 05/11/24 History capsule,extended release 24 hr fluticasone propionate 110 1 puff PO BID 11/24/21 05/12/24 Unknown History mcg/actuation HFA aerosol inhaler (Flovent HFA) pantoprazole 40 mg tablet,delayed 40 mg PO DAILY 11/24/21 05/12/24 Unknown History release cholecalciferol (vitamin D3) 50 2,000 unit PO DAILY 11/26/21 05/12/24 Unknown History mcg (2,000 unit) capsule losartan 50 mg tablet 50 mg PO DAILY blood pressure 11/24/22 05/12/24 05/11/24 History levothyroxine 25 mcg tablet 25 mcg PO DAILY 01/08/23 05/12/24 Unknown History riboflavin (vitamin B2) 100 mg 200 mg PO BID 01/08/23 05/12/24 Unknown History tablet (Vitamin B-2) topiramate 50 mg tablet 100 mg PO BID 01/08/23 05/12/24 Unknown History Exam Airway Mallampati Class: II TM Dist: >3cm Neck ROM: Full Heart: rrr Lungs: cta Assessment and Plan Assessment Anesthesia Assessment: Anesthesia Plan Discussed Final Anesthetic Review NPO: Yes ASA Class: III Final Preanesthetic Review: No Changes in Pt Med Stat, Meds/Allgs Chart Reviewed, Consent Obtained/Reviewed and Anes Risks/Benef Reviewed Patient Risk: Intermediate Procedure Risk: Low Anesthetic Plan Anesthetic Plan: GA (nipple and ear piercings multiple, pt refuses to take them out, risk of pressure necrosis at sie from prone position explained, pt says she is fine taking the risk.) Disposition: Standard PACU
--- OUTSIDE RECORDS SUMMARY | 2024-05-12 10:24 | XMS_ITS | Patient Health Record ---
Author Organization [facility] Address [address] [place] [address] Care Team Providers Care Shoemaking Finisher Name Role Phone MICHAEL YANEZ N.P. Primary Care Provider Fidencio Langley Jr Unavailable [phone] ALLERGIES No Known Allergies RESULTS Component Value Reference Range Notes Liver Panel Reviewed date:06/03/2023 01:14:34 PM Interpretation: Performing Lab:[facility], [address] [place] [phone] Notes/Report: Bilirubin Total 0.5 0.0-1.0 mg/dL Bilirubin Direct 0.2 0.0-0.5 mg/dL Aspartate Amino Transferase 21 5-31 U/L Alanine Aminotransferase 17 0-31 U/L Total Protein 7.0 6.5-8.0 g/dL Albumin Level 4.0 3.5-5.0 g/dL Alkaline Phosphatase 109 39-117 U/L IRON PROFILE Reviewed date:06/02/2023 03:49:57 PM Interpretation: Performing Lab:[facility], [address] [place] [phone] Notes/Report: Iron 36 30-160 mcg/dL Total Iron Binding Capacity 425 228-428 mcg/d L Percent Iron Saturation 8 15-50 % Unsaturated Iron Binding 389 Ferritin Reviewed date:06/02/2023 03:49:40 PM Interpretation: Performing Lab:[facility], [address] [place] [phone] Notes/Report: Ferritin 9 10-250 ng/mL Gamma Glutamyl Transpeptidas e Reviewed date:06/03/2023 01:14:41 PM Interpretation: Performing Lab:[facility], [address] [place] [phone] Notes/Report: Gamma Glutamyl Transpeptidase 19 7-33 U/L Mitochondrial Antibody Reviewed date:06/10/2023 09:19:32 AM Interpretation: Performing Lab:[facility], [address] [place] [phone] Notes/Report: Mitochondrial Antibodies NEGATIVE NEGATIVE THIS TEST WAS PERFORMED AT: [facility] [address] [phone] NILSA MATTHEWS MD Mitochondrial Ab Titer TNP Smooth Muscle Antibody Reviewed date:06/10/2023 09:19:26 AM Interpretation: Performing Lab:[facility], [address] [place] [phone] Notes/Report: Smooth Muscle Antibody <20 <20 U [...] type 1. THIS TEST WAS PERFORMED AT: [facility]/[address] [phone] TREVIN XIAO MD,PHD Liver Fibrosis Pnl Reviewed date:06/10/2023 09:19:10 AM Interpretation: Performing Lab:[facility], [address] [place] [phone] Notes/Report: Liver Fibrosis Score 0.15 Liver Fibrosis [...] a>0.62 and a<=1.00 : A3 (severe activity) MFQ-Nwqfa-7-Macroglobulin 204 106-279 mg/dL FIB-Haptoglobin 108 43-212 mg/dL FIB-Apolipoprotein A1 164 101-198 mg/dL FIB-Total Bilirubin 0.5 0.2-1.2 mg/dL FIB-GGT 15 3-70 U/L FIB-ALT 17 6-29 U/L Reference ID [id number] Footnote SEE NOTE The reliability of results is dependent on compliance with the preanalytical and analytical conditions recommended by [employer]. The tests have to be deferred for: [...] The performance characteristics have been determined by [facility]. It has not been cleared or approved by the U.S. Food and Drug Administration. Performance characteristics refer to the analytical performance of the test. Unified, [employer], the associated logo, [employer] and all associated [employer] gamino are the registered trademarks of [employer]. All third republican gamino - (R) and (TM) - are the property of their respective owners. (C) 6819-2277 [employer]. All rights reserved. THIS TEST WAS PERFORMED AT: [facility] [place] [address] [place] [address] VASQUEZ JENKINS MD,PHD,CARLOS ENRIQUE VINH Reflex Titer and Pattern Reviewed date:06/10/2023 09:19:16 AM Interpretation: Performing Lab:[facility], [address] [place] [phone] Notes/Report: Anti Nuclear Antibody Screen NEGATIVE NEGATIVE [...] AC-0: Negative International Consensus on VINH Patterns (https://doi.org/10.1515/cclm -2409-1177) For additional information, please refer to http://education.RelayFoods.com/faq/HDI763 (This link is being provided for informational/ educational purposes only.) THIS TEST WAS PERFORMED AT: [facility] [address] [place] [phone] NILSA MATTHEWS MD Anti Nuclear Antibody Titer TNP Anti Nuclear Antibody Pattern TNP VINH Titer 2 TNP VINH Pattern 2 TNP VINH Titer 3 TNP VINH Pattern 3 TNP Pathology Reviewed date:12/31/2023 03:02:56 PM Interpretation: Performing Lab:[facility], [address] [place] [phone] Notes/Report: REASON FOR REFERRAL Referring Provider First Name Hadley Referring Provider Last Name Odell Referred Organization [facility] Referred Provider Fidencio Vila Jr Referred Address [address] [place] [address],[place] [address],[place],[address],[place] Referred Provider Specialty Gastroentero tigre General Notes [place],Sarah 024 11:31:55 AM EDT > requested a [facility] referral from [facility] for procedure with Dr. Vila on [phone] Referral Priority Routine MEDICATIONS Medication SIG (Take, Route, Frequency, Duration) Notes Start Date End Date Status Flovent HFA 110 MCG/ACT INHALE 1 PUFF BY MOUTH TWICE DAILY Inhalation for 60 Active Gabapentin 100 MG TAKE 1 CAPSULE BY MOUTH FOUR TIMES DAILY Diagnosis Unavailable Oral for 30 Active Magnesium Oxide 400 MG TAKE 1 TABLET BY MOUTH DAILY Oral for 90 Active Losartan Potassium 50 MG TAKE 1 TABLET B Y MOUTH EVERY DAY FOR BLOOD PRESSURE Oral for 90 Active Dulcolax (colon prep) 5 MG take at 3:00 p.m and 7:00p.m. Orally two tablets twice a day for one day for 1 day 06/23/2021 Active hydrOXYzine Pamoate 50 MG TAKE 1 CAPSULE BY MOUTH AT BEDTIME. TAKE 1 CAPSULE 2 TIMES PER DAY NEEDED FOR INCREASED ANXIETY Oral for 30 Active Mirtazapine 30 MG TAKE 1 TABLET BY MOUTH EVERY NIGHT AT BEDTIME Oral for 30 Active Vitamin C Active Vitamin B12 Active MiraLax (colon prep) 17 GM/SCOOP mixed with Gatorade or Crystal Light Orally begin at 5:00 p.m. the day before the procedure for 1 day 12/01/2023 Active Cyclobenzaprine HCl Active MiraLax (colon prep) 17 GM/SCOOP mixed with Gatorade or Crystal Light Orally begin at 5:00 p.m. the day before the procedure for 1 day 06/23/2021 Active Cephalexin prn Not-Takin g Vitamin B-2 Active DOK Not-Taking Dulcolax (colon prep) 5 MG take at 3:00 p.m and 7:00p.m. Orally two tablets twice a day for one day for 1 day 12/08/2023 Active buPROPion HCl ER (XL) Active Loperamide HCl Not-T aking MiraLax (colon prep) 8.3 ounce ((238) grams mixed with Gatorade or Crystal Light orally begin at 5:00 p.m. the day before the procedure for 1 day 12/08/2023 Active Levothyroxine Sodium Active Nabumetone Not-Takin g clonazePAM 2mg Activ e metroNIDAZOLE Not-Ta bryanna Vitamin D 1000units Active Rizatriptan Benzoate Not-Taking ProAir HFA 8.5gm Act jermain Calcium Citrate Acti ve hydroCHLOROthiazide 12.5 MG TAKE 1 TABLE T BY MOUTH DAILY Diagnosis Unavailable Oral for 90 Active Topiramate 50 MG TAKE 1 TABLET BY MOUTH FOUR TIMES DAILY Oral for 90 Active Pantoprazole Sodium 40 MG TAKE 1 TABLET BY MOUTH EVERY DAY Orally Once a day for 90 days Active Wellbutrin 300mg Act jermain Estradiol 0.5 MG 1 tablet Orally Not-Taking IMMUNIZATIONS Vaccine Route Administration Date Status Comme nts Influenza Unknown 12/14/2018 Refused Influenza Unknown 11/30/2022 Refused SOCIAL HISTORY Sex Assigned At : Social History Observation Description Sex Assigned At Unknown PROBLEMS Problem Type ICD Code Onset Dates Problem Status W/U Status Risk SNOMED Code Notes Problem Colon cancer screening (Z12.11) Active confirmed 205238641 Problem Rectal bleeding (K62.5) Active confirmed 01129822 Problem Epigastric pain (R10.13) Active confirmed 57410527 Problem Dysphagia (R13.10) Active confirmed Dys phagia (38459467) Problem Elevated LFTs (R79.89) Active confirmed 469003418 Problem Gastroesophageal reflux disease without esophagitis (K21.9) Active confirmed 486105586 Problem Dysphagia, unspecified type (R13.10) Active confirmed 70147426 VITAL SIGNS Temperature 98.0 degrees Fahrenheit 12/01/2023 Blood pressure diastolic 00 mm Hg 12/01/2023 Height 64.5 in 12/01/2023 Blood pressure systolic 000 mm Hg 12/01/2023 Weight 157 lb 2 oz lbs 12/01/2023 BMI 26.55 kg/m2 12/01/2023 Encounters Encounter Location Date Provider Diagnosis [facility] [address] [place], [place] [phone] 12/29/2023 Fidencio Vial Jr Rectal bleeding K62.5 [facility] [address] [place] [address] 06/02/2023 Fidencio Vila Jr Elevated LFTs R79.89 and Gastroesophageal reflux disease without esophagitis K21.9 [facility] [address] [place] [address] 12/01/2023 Fidencio Vila Jr Rectal bleeding K62.5 ; Gastroesophageal reflux disease without esophagitis K21.9 and Elevated LFTs R79.89 [facility] [address] [place] [address] 06/10/2023 Fidencio Vila Jr [facility] [address] [place] [address] 12/01/2023 Fidencio Vila Jr [facility] [address] [place] [address] 12/24/2023 Fidencio Vila Jr [facility] [address] [place] [address] 12/31/2023 Fidencio Vila Jr ASSESSMENTS Encounter Date Diagnosis Assessment Notes Treatment Notes Treatment Clinical Notes 12/29/2023 Rectal bleeding (ICD-10 - K62.5) 06/02/2023 Elevated LFTs (ICD-1 0 - R79.89) 06/02/2023 Gastroesophageal reflux disease without esophagitis (ICD-10 - K21.9) 12/01/2023 Rectal bleeding (ICD-10 - K62.5) Colonoscopy material was printed 12/01/2023 Gastroesophageal reflux disease without esophagitis (ICD-10 - K21.9) 12/01/2023 Elevated LFTs (ICD-1 0 - R79.89) PLAN OF TREATMENT Pending Test Test Name Order Date LIVER PROFILE 11/11/2022 LIVER PROFILE 06/02/2023 LIVER PROFILE 11/30/2022 LIPASE 11/11/2022 LIPASE 11/30/2022 GGT 06/02/2023 IRON + IBC (FE) 06/02/2023 FERRITIN 06/02/2023 CBC w/o DIFF 11/11/2022 CBC w/o DIFF 11/30/2022 MITOCHONDRIAL AB 06/02/2023 SMOOTH MUSCLE ANTIBODIES 06/02/2023 XR GI SERIES 09/12/2015 US ABD 11/30/2022 Future Test Test Name Order Date COLONOSCOPY 07/08/2012 UPPER GI ENDOSCOPY BALLOOON DILATION OF ESOPH 12/11/2015 COLONOSCOPY 12/11/2015 COLONOSCOPY 06/23/2021 COLONOSCOPY 12/01/2023 Next Appt Details Provider Name:Fidencio rosenbergtadeo Kapoor, 01/03/2025 09:20:00 AM, [address], [address], [place], [address], Insurance Providers Payer Name Payer Address Payer Phone Subscriber Number Group Number Insured Name Patient Relationship to Insured Coverage Start Date Coverage End Date [facility] [address] [place] [address] [id number] TAY TYLER Self - patient is the [...] partial hysterectomy tonsillectomy cancer in uterus [phone] Laparoscopic bypass surgery 11/14
--- OUTSIDE RECORDS SUMMARY | 2024-05-12 10:24 | XMS_ITS ---
Author Organization [facility] Address [address] [place] [address] [place] [address] Care Team Providers Care Shim Plug Cutter Name Role Phone MICHAEL YANEZ N.P. Primary Care Provider Tiara Vila Jr, Fidencio Rivera [phone] REASON FOR VISIT bowel prep MEDICATIONS Medication SIG (Take, Route, Frequency, Duration) Notes Start Date End Date Status Dulcolax (colon prep) 5 MG take at 3:00 p.m and 7:00p.m. Orally two tablets twice a day for one day for 1 day 12/08/2023 Active MiraLax (colon prep) 8.3 ounce ((238) grams mixed with Gatorade or Crystal Light orally begin at 5:00 p.m. the day before the procedure for 1 day 12/08/2023 Active Encounters Encounter Location Date Provider Diagnosis [address] [address] 12/24/2023 Fidencio Vila Jr PLAN OF TREATMENT Medication Medication Name Sig Start Date Stop Date Notes Dulcolax (colon prep) 5 MG take at 3:00 p.m and 7:00p.m. Orally two tablets twice a day for one day for 1 day 12/08/2023 MiraLax (colon prep) 8.3 oun ce ((238) grams mixed with Gatorade or Crystal Light orally begin at 5:00 p.m. the day before the procedure for 1 day 12/08/2023 Next Appt Details Provider Name:Fidencio haider Jr, 01/03/2025 09:20:00 AM, [address] [place] [address], [address], [place], [address],
--- OUTSIDE RECORDS SUMMARY | 2024-05-12 10:24 | XMS_ITS ---
Author Organization [facility] Address [address] [place] [address] Drive [address] [place] [address] Care Team Providers Care Health Safety Coordinator Name Role Phone MICHAEL YANEZ N.P. Primary Care Provider Fidencio Langley Jr REASON FOR VISIT rectal bleeding Encounters Encounter Location Date Provider Diagnosis [facility] [place] [address] [place] [phone] 12/29/2023 Fidencio Vila Jr Rectal bleeding K62.5 ASSESSMENTS Encounter Date Diagnosis Assessment Notes Treatment Notes Treatment Clinical Notes 12/29/2023 Rectal bleeding (ICD-10 - K62.5) PLAN OF TREATMENT Next Appt Details Provider Name:Fidencio haider Jr, 01/03/2025 09:20:00 AM, [address] [place] [address], [address], [place], [address],
--- OUTSIDE RECORDS SUMMARY | 2024-05-12 10:24 | XMS_ITS ---
Author Organization [facility] Address [address] [facility] [place] [address] Care Team Providers Care Inspector Rubber Stamp Die Name Role Phone MICHAEL YANEZ N.P. Primary Care Provider Tiara Vila Jr, Fidencio Rivera REASON FOR VISIT pathology Encounters Encounter Location Date Provider Diagnosis [facility] [address] [place] [address] 12/31/2023 Fidencio Vila Jr PLAN OF TREATMENT Next Appt Details Provider Name:Fidencio haider Jr, 01/03/2025 09:20:00 AM, [address] [place] [address], [address], [place], [address],
[2024-05-12 10:43] VITALS: BP 124/74; PULSE 63; RESP 16; TEMP 36.5; O2SAT 100; BMI 30.7
[2024-05-12] MEDS: Lactated Ringers 1,000 ML 100 ML IVCONT (11:01)
--- NOTE | 2024-05-12 11:24 | MHC.SHP ---
Pre-Procedural Eval Section A - 24 Hr Update-Section A only Date of Service: 05/12/24 The patient is an INPATIENT: No Changes since office visit: No Cold of Flu in the past 2 weeks, No New Medical Problems, No Changes in Medication and No Patient answered all questions The patient has been examined within 24 hours of the surgical procedure. The History & Physical has been completed within 30 days and I have reviewed it.: Yes Section B - Complete if H&P > 30 days Chief Complaint: Pilonidal cyst without abscess Allergies: Allergies Allergy/AdvReac Type Severity Reaction Status Date / Time ondansetron [From ZOFRAN] Allergy Unknown per H&P Verified 05/12/24 10:29 sumatriptan [From IMITREX] Allergy Unknown RASH FROM Verified 05/12/24 10:29 TABLET NOT INJECTION promethazine [From PHENERGAN] AdvReac Severe DYSTONIA Verified 05/12/24 10:29 Plan I have reviewed the history and physical and performed a pertinent physical examination on my patient. No changes have occurred unless specified. Time Spent With Patient Time: Total time managing care of this patient today ____ minutes.
--- NOTE | 2024-05-12 11:25 | PC.NURSE ---
Patient arrived with multiple earrings in bilateral ears, as well as two nipple piercings. All jewelry unable to be removed, per patient. Dr. Rooney made aware and at bedside to discuss risks with patient. Dr. Ramirez made aware. Waiver signed. Okay to proceed. OR nurse and FINANCIAL PLANNING ADVISOR Collin aware.
--- NOTE | 2024-05-12 11:56 | P.OP_ITS ---
Operative Note Operative Note Date of Service: 05/12/24 Narrative: Preop diagnosis: Pilonidal cyst, sacrococcygeal area Postop diagnosis: Epidermal cyst, sacrococcygeal area Procedure: Excision of epidermal cyst, sacrococcygeal area Surgeon: Raffy Ramirez MD Hotel Supplies Salesperson: RAMONE Jiang The patient is a 59-year-old female with note of recurrent ear pain, swelling and drainage left of the midline on the sacrococcygeal area. This was suggestive of a pilonidal cyst. There was note of a faint induration with discoloration in this area. She understood the technique of the planned procedure as well as the risks, benefits, and alternatives. She was brought to the operating room. She was placed in prone position under general anesthesia via endotracheal tube. The sacrococcygeal area was prepped and draped in the usual sterile fashion. A surgical time-out was done. The patient received cefazolin 2 g IV preoperatively Examination of the area revealed this faint induration to the left of the midline with discoloration of the overlying skin. However, I did not notice any midline pits. There was no induration suggestive of fistulous tracts elsewhere. Examination therefore was more suggestive of an epidermal cyst I infiltrated the planned line of incision with lidocaine 1%. I made the incision elliptically overlying the area of induration and discoloration of the skin with a blade 15. This carried down with electrocautery through the full-thickness of the skin subcutaneous fat. This entire area measuring about 5 cm long by 2 cm wide was excised. This was entered as a specimen. I used a electrocautery to achieve hemostasis. Once hemostasis was confirmed, I closed the deep subcutaneous layer with Polysorb 3-0 simple interrupted sutures. Skin closure was achieved with nylon 3-0 simple interrupted sutures alternating with vertical mattress sutures. The The area was then infiltrated with Marcaine 0.5% for postop analgesia. Dressings were applied. The procedure was then completed. The patient tolerated the procedure well. There were no immediate complications. Initial final counts of sponges and instruments were correct. Estimated blood loss was less than 10 cc. The patient was extubated without difficulty and transferred to the recovery room with stable vital signs.
[2024-05-12 12:25] VITALS: BP 105/61; PULSE 80; RESP 12; TEMP 36.1; O2SAT 97
[2024-05-12 12:30] VITALS: BP 97/69; PULSE 77; RESP 18; O2SAT 96
[2024-05-12 12:35] VITALS: BP 109/70; PULSE 64; RESP 18; O2SAT 97
[2024-05-12] MEDS: fentaNYL citrate/PF 100 MCG/2 ML VIAL 25 MCG IVPUSH (12:35)
[2024-05-12 12:40] VITALS: BP 101/70; PULSE 59; RESP 12; O2SAT 95
[2024-05-12 12:55] VITALS: BP 98/71; PULSE 67; RESP 18; TEMP 36.5; O2SAT 98
== END 2024-05-12 13:10 | disposition home or self-care (01) ==
PROVIDERS: PCP Nurse Practitioner Primary Care; Visit Provider Surgery
PROC: (CPT 11406; principal; 2024-05-12 12:00)
DX: L72.0 Epidermal cyst (principal); I10 Essential (primary) hypertension; E78.00 Pure hypercholesterolemia, unspecified; D64.9 Anemia, unspecified; J45.909 Unspecified asthma, uncomplicated; Z79.51 Long term (current) use of inhaled steroids; Z79.899 Other long term (current) drug therapy; Z88.8 Allergy status to other drugs, medicaments and biological substances; Z98.84 Bariatric surgery status; Z98.890 Other specified postprocedural states
CPT/HCPCS: 11406; 88304; J0690; J1100; J2250; J2704; J2795; J3010

== ENCOUNTER → 2024-05-12 10:22 | Outpatient (BNV) | payer MEDICAID, SELFPAY | PROVIDERS: PCP Nurse Practitioner Primary Care; Visit Provider Surgery | DX: L72.0 Epidermal cyst (principal) | CPT/HCPCS: 11406 ==

== ENCOUNTER 2024-05-25 10:33 | Outpatient (AMB) | payer MEDICAID, SELFPAY ==
--- NOTE | 2024-05-25 10:44 | A.OFFVIS_ITS ---
Intake Visit Reasons: S/P exc. pilonidal cyst sacrococcygeal area Intake Note: This patient presents for post-op assessment status post excision of epidermal cyst, sacrococcygeal area. Pt c/o; reports pain. Tint Layer Required: Yes Tint Layer Language: Product Development Consultant Services: Tint Layer Present Information Interpreted: non-clinical & clinical Accompanied by: Self / Same As Patient Allergies ondansetron [From ZOFRAN] Allergy (Unknown, Verified 05/25/24 10:48) per H&P sumatriptan [From IMITREX] Allergy (Unknown, Verified 05/25/24 10:48) RASH FROM TABLET NOT INJECTION promethazine [From PHENERGAN] Adverse Reaction (Severe, Verified 05/25/24 10:48) DYSTONIA HPI HPI S/P exc. pilonidal cyst sacrococcygeal area: Details: She underwent excision of an epidermal cyst from the sacrococcygeal area under anesthesia last 05/12/2024. She tolerated procedure well. She currently denies significant complaints. [facility] Medical History (Updated 05/25/24 @ 10:57 by Raffy Ramirez MD) Epidermal cyst Migraine HTN (hypertension) IBS (irritable bowel syndrome) GERD (gastroesophageal reflux disease) Chronic interstitial cystitis Sleep apnea Asthma Anemia Hypercholesteremia Depression Anxiety Sacrococcygeal pilonidal cyst Recurrent UTI Goiter Flank pain Dysuria Hypercalciuria Swelling of joint, ankle, right Swelling of right foot Vitamin D deficiency Hypothyroidism Right patella fracture History of secondary hyperparathyroidism Abnormal mammogram Well woman exam Surgical History History of removal of cyst (~05/12/24) History of bladder surgery H/O bilateral salpingo-oophorectomy S/P gastric bypass H/O left breast biopsy H/O: hysterectomy History of bilateral tubal ligation History of appendectomy Family History Mother Uterine cancer Father No problems noted. 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 Sexual orientation: Straight/Heterosexual Gender identity: Female Female Reproductive History Menstrual Age of Menarche: 13 Review of Systems Const Denies chills and Denies fever(s) Physical Exam Const General: comfortable and no acute distress Resp Effort & Inspection: normal respiratory effort Back/Spine/Pelvis Other: Excision site on the sacrococcygeal area is well healed, not infected, sutures intact Assessment & Plan Assessment & Plan (1) Epidermal cyst: Code(s): L72.0 - Epidermal cyst Category: Medical Plan: I had done excision of an area of cystic induration on the sacrococcygeal region. The incision is well healed. I removed all her sutures. Her path report had shown spongiotic dermatitis along with superficial perivascular chronic inflammation. I explained to her the benign nature of this pathology She can follow up on a p.r.n. basis. Coding Level of Care Code Global (85310) Diagnoses Epidermal cyst L72.0
== END 2024-05-25 10:55 | disposition home or self-care (01) ==
PROVIDERS: PCP Nurse Practitioner Primary Care; Visit Provider Surgery
DX: L72.0 Epidermal cyst (principal)
CPT/HCPCS: 99024

== ENCOUNTER → 2024-05-25 10:33 | Outpatient (BNVA) | payer MEDICAID, SELFPAY | PROVIDERS: PCP Nurse Practitioner Primary Care; Visit Provider Surgery | DX: Z09 Encounter for follow-up examination after completed treatment for conditions other than malignant neoplasm (principal); Z98.890 Other specified postprocedural states; Z87.2 Personal history of diseases of the skin and subcutaneous tissue | CPT/HCPCS: 99212 ==

== ENCOUNTER 2024-05-31 08:26 | Outpatient (AMB) | payer MEDICAID, SELFPAY ==
--- NOTE | 2024-05-31 08:44 | A.OFFVIS_ITS ---
Intake Visit Reasons: 3m/US/PVR(set) Intake Note: Patient presents today for follow up on: nephrolithiasis, interstitial cystitis, recurrent uti, and ultrasound results Urology Medications: Vitamin B6 Blood Thinner: none PVR: 71ml's Sales Representative Malt Liquors Required: No Accompanied by: Self / Same As Patient Allergies ondansetron [From ZOFRAN] Allergy (Unknown, Verified 05/31/24 08:53) per H&P sumatriptan [From IMITREX] Allergy (Unknown, Verified 05/31/24 08:53) RASH FROM TABLET NOT INJECTION promethazine [From PHENERGAN] Adverse Reaction (Severe, Verified 05/31/24 08:53) DYSTONIA Medication List - Last Reconciled 05/31/24 by LUCRECIA Bhatia cholecalciferol (vitamin D3) 2,000 units PO DAILY cyanocobalamin (vitamin B-12) 1,000 mcg PO DAILY diltiazem HCl CD 180 mg PO DAILY docusate sodium (Colace) 100 mg PO BID fluticasone propionate 110 mcg/actuation (Flovent HFA) 1 puff PO BID gabapentin 100 mg PO TID ketorolac 10 mg PO TID PRN 5 days levothyroxine 25 mcg PO DAILY lidocaine 5% (Lidoderm) 1 patch topical DAILY losartan 50 mg PO DAILY oxycodone-acetaminophen 5-325 mg (Percocet) 1 tab PO Q4-6H PRN pantoprazole 40 mg PO DAILY pyridoxine (vitamin B6) 100 mg PO DAILY 90 days raloxifene 60 mg PO DAILY riboflavin (vitamin B2) (Vitamin B-2) 200 mg PO BID topiramate 100 mg PO BID HPI Comments Details: Laura is a pleasant 59 year old female patient of Dr. Weir. She has a past medical history of goiter, hypercalciuria interstitial cystitis, BV, osteoporosis, and hyperthyroidism. She presents to the office today for follow- up of her nephrolithiasis, recurrent urinary tract infections and pyelonephritis. In discussion with the patient today she reports to be doing and feeling well. She reports noting intermittent episodes of dysuria over the last 2 weeks. She reports feeling at times with increase in hydration symptoms to subside. Unable to obtain urine for urinalysis today however PVR 71 mL. Recent renal imaging results reviewed with the patient today bilateral kidneys with no lesions or hydronephrosis. Right kidney with 2 echogenic foci in the right kidney consistent with nonobstructing calculi. When asked she does report compliance with vitamin B6 as prescribed. She discusses feeling episodes of mixed urinary incontinence are occurring more frequently. She reports having edge d this issue in the past and felt symptoms improved spontaneously however more recently has has been experiencing mixed urinary incontinence. She otherwise denies nocturia, hematuria, foul smelling urine, changes to urinary stream, flank pain, fever, and or chills. She otherwise offers no other issues or concerns at this time. [facility] Medical History Epidermal cyst Migraine HTN (hypertension) IBS (irritable bowel syndrome) GERD (gastroesophageal reflux disease) Chronic interstitial cystitis Sleep apnea Asthma Anemia Hypercholesteremia Depression Anxiety Sacrococcygeal pilonidal cyst Recurrent UTI Goiter Flank pain Dysuria Hypercalciuria Swelling of joint, ankle, right Swelling of right foot Vitamin D deficiency Hypothyroidism Right patella fracture History of secondary hyperparathyroidism Abnormal mammogram Well woman exam Surgical History History of removal of cyst (~05/12/24) History of bladder surgery H/O bilateral salpingo-oophorectomy S/P gastric bypass H/O left breast biopsy H/O: hysterectomy History of bilateral tubal ligation History of appendectomy Family History Mother Uterine cancer Father No problems noted. 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 Sexual orientation: Straight/Heterosexual Gender identity: Female Female Reproductive History Menstrual Age of Menarche: 13 Review of Systems Const All systems reviewed & are unremarkable except as noted in HPI and below Reports as per HPI Eyes Reports no additional complaints ENT Reports no additional complaints Card Reports no additional complaints Resp Reports no additional complaints GI Reports no additional complaints Reports as per HPI Musc Reports as per HPI Neuro Reports no additional complaints Psych Reports anxiety and Reports depression Endo Reports as per HPI Aman/Lymph Reports no additional complaints Aller/Immun Reports no additional complaints Physical Exam Const General: cooperative, healthy appearing, comfortable, no acute distress, well developed, alert and awake Orientation/consciousness: patient oriented x3 Limitations: no limitations HEENT Head: Yes normal to inspection, Yes normocephalic and Yes atraumatic Ears: hearing grossly normal bilaterally Eyes General: appearance normal, both eyes and all related structures Neck Neck: Yes normal visual inspection and Yes trachea midline Chest Chest palpation & inspection: normal inspection of the chest Resp Effort & Inspection: normal respiratory effort and able to speak in complete sentences Cardio Rate: regular rate GI Inspection: Yes normal to inspection General: Yes no CVA tenderness Back/Spine/Pelvis Back: no CVA tenderness Skin General skin exam: no rashes or lesions noted Neuro General: patient oriented x3 Extrem General: Yes normal to inspection Psych Appearance: grossly normal and well kempt Mental Status: mental status grossly normal Speech and movement: Normal speech and movement present and Clear speech present Affect: normal affect Attitude: cooperative Thought process: Normal thought process present Thought content: Normal thought content present Insight: Fair insight present (Psych) Judgement: Fair judgement present (Psych) Office Procedures Post Void Residual Post Residual Void Post Void Residual (PVR): 71 [id number] Void Residual by ultrasound Results Reviewed Results Reviewed: Date of Service: 05/10/24 EXAMINATION: US RETROPERITONEAL LIMITED (RENAL ONLY) FINDINGS: RIGHT KIDNEY: 10.3 x 3.4 x 5.8 cm (SAG x AP x TRV). The kidney is normal in size, contour, and echogenicity. Renal cortical thickness is normal. There are two echogenic foci in the kidney measuring 4 mm in size one in the mid kidney one in the upper pole. These are consistent with nonobstructing calculi. No focal parenchymal lesions or hydronephrosis. LEFT KIDNEY: 11.0 x 4.5 x 5.7 cm (SAG x AP x TRV). The kidney is normal in size, contour, and echogenicity. Renal cortical thickness is normal. No calculi or focal parenchymal lesions. No hydronephrosis. IMPRESSION: Nonobstructing right renal calculi. Similar findings were seen on the 08/31/2023 study. Assessment & Plan Assessment & Plan (1) Nephrolithiasis: Code(s): N20.0 - Calculus of kidney Category: Medical (2) Interstitial cystitis: Code(s): N30.10 - Interstitial cystitis (chronic) without hematuria Category: Medical (3) Recurrent UTI: Code(s): N39.0 - Urinary tract infection, site not specified Category: Medical (4) Dysuria: Code(s): R30.0 - Dysuria Category: Medical Plan Unable to obtain urine for urinalysis however PVR 74 mL. Order for urinalysis submitted patient will go to lab will await results for potential treatment. Discussed bladder triggers/irritants. Recent renal imaging results reviewed with the patient today; as noted above. Continue drinking plenty of water daily. Continue adding 1 oz of lemon juice to water daily. Continue vitamin B6 as discussed and prescribed. Discussed pelvic floor therapy/exercises. Start oxybutynin as discussed and prescribed. Follow-up in 1-3 months with PVR; or sooner with any issues, concerns, and or questions. Orders: Orders AMB Post Void Residual by ultrasound Today R32 - Unspecified urinary incontinence UA CC w/rflx Micro + Cult Today N39.0 - Urinary tract infection, site not specified, R30.0 - Dysuria Medications: New oxybutynin chloride ER 10 mg PO DAILY 30 days 30 tabs 3RF N32.81 - Overactive bladder Discontinued ketorolac Discontinued Reason: Patient Completed Course 10 mg PO TID 5 days PRN 15 tabs 0RF pain oxycodone-acetaminophen 5-325 mg (Percocet) Partial Fill upon patient request. Discontinued Reason: Patient Completed Course 1 tab PO Q4-6H PRN 25 tabs 0RF pain Patient Instructions: The patient had an opportunity to ask questions regarding the treatment plan. All questions were answered. Physical exam, labs, and imaging were discussed and reviewed in detail. As well as risks, benefits, and discussion of treatment choices. No major barriers to understanding were identified. The patient expressed understanding and agreement with the above treatment plan. The patient was made aware they should contact our office by phone for worsening of their current condition, the appearance of new symptoms, or with any questions or concerns. Compliance is encouraged with any medications and follow up testing that is ordered. It is a privilege to be allowed the opportunity to participate in? your urological care.? Again, if you have any questions or concerns If you have any questions or concerns please do not hesitate to contact me. The office is [phone]. This note is constructed using voice recognition software. While every effort has been made to ensure accuracy tape folding machine operator errors may have been included. Yours sincerely, KYLER Bhatia-PEYMAN Coding Level of Care Code Est Pt Level 4 (40396) Diagnoses Nephrolithiasis N20.0 Interstitial cystitis N30.10 Recurrent UTI N39.0 Dysuria R30.0 CPT Codes Post Residual Void - PVR CPT Code: 70117-Elcl Void Residual by ultrasound ([id number])
== END 2024-05-31 09:17 | disposition home or self-care (01) ==
PROVIDERS: PCP Nurse Practitioner Primary Care; Visit Provider Nurse Practitioner Family
DX: N20.0 Calculus of kidney (principal); N30.10 Interstitial cystitis (chronic) without hematuria; N39.0 Urinary tract infection, site not specified; R30.0 Dysuria
CPT/HCPCS: 99214

== ENCOUNTER → 2024-05-31 08:26 | Outpatient (BNVA) | payer MEDICAID, SELFPAY | PROVIDERS: PCP Nurse Practitioner Primary Care; Visit Provider Nurse Practitioner Family | DX: N20.0 Calculus of kidney (principal); N30.10 Interstitial cystitis (chronic) without hematuria; N39.0 Urinary tract infection, site not specified; R30.0 Dysuria | CPT/HCPCS: 51798; 99212 ==

== ENCOUNTER 2024-06-08 08:54 | Emergency (ER) | payer MEDICAID, SELFPAY ==
--- NOTE | ~2024-06-08 | XR_ITS ---
EXAMINATION: XR FOOT, RIGHT CLINICAL INFORMATION: Fall. Pain. COMPARISON: Right ankle and foot radiographs dated 02/20/2017. TECHNIQUE: AP, lateral, and oblique views of the right foot. FINDINGS: No acute fracture or dislocation. Normal tarsal alignment. No joint space narrowing or marginal osteophytes. No osseous erosion. Small plantar and dorsal calcaneal spurs. XR/XR foot RT min 3V IMPRESSION: 1. No acute fracture or dislocation. 2. Small plantar and dorsal calcaneal spurs. Electronically signed by: Chuck Greenberg MD 06/08/2024 10:45 AM EDT
[2024-06-08 08:57] VITALS: BP 100/67; PULSE 62; RESP 20; TEMP 36.2; O2SAT 100; BMI 24.6
--- OUTSIDE RECORDS SUMMARY | 2024-06-08 09:29 | XMS_ITS ---
Author Organization [facility] Address [address] [place] [address] Care Team Providers Care Case Resource Manager Name Role Phone MICHAEL YANEZ N.P. Primary Care Provider Tiara Vila Jr, Fidencio Rivera REASON FOR VISIT pathology Encounters Encounter Location Date Provider Diagnosis [facility] [address] [place] [address] 12/31/2023 Fidencio Vila Jr PLAN OF TREATMENT Next Appt Details Provider Name:Fidencio haider Jr, 01/03/2025 09:20:00 AM, [address] [place] [address], [address], [place], [address],
--- OUTSIDE RECORDS SUMMARY | 2024-06-08 09:30 | XMS_ITS | Patient Health Record ---
Author Organization [facility] Address [address] [place] [phone] Care Team Providers Care English Composition Teacher Name Role Phone MICHAEL YANEZ N.P. Primary Care Provider Fidencio Langley Jr Unavailable ALLERGIES No Known Allergies RESULTS Component Value Reference Range Notes Pathology Reviewed date:12/31/2023 03:02:56 PM Interpretation: Performing Lab:[facility], [address] [place] [phone] Notes/Report: REASON FOR REFERRAL Referring Provider First Name Hadley Referring Provider Last Name Odell Referred Organization [facility] Referred Provider Fidencio iVla Jr Referred Address [address] [place] [address] [address] [place] [phone], Referred Provider Specialty Gastroentero logy General Notes Sarah Posey 024 11:31:55 AM EDT > requested a [facility] referral from [facility] for procedure with Dr. Vila on [phone] Referral Priority Routine MEDICATIONS Medication SIG (Take, [...] Problem Colon cancer screening (Z12.11) Active confirmed 028363029 Problem Rectal bleeding (K62.5) Active confirmed 51942735 Problem Epigastric pain (R10.13) Active confirmed 25029515 Problem Dysphagia (R13.10) Active confirmed Dys phagia (11259468) Problem Elevated LFTs (R79.89) Active confirmed 471889355 Problem Gastroesophageal reflux disease without esophagitis (K21.9) Active confirmed 919852979 Problem Dysphagia, unspecified type (R13.10) Active confirmed 00494663 VITAL SIGNS Temperature 98.0 degrees Fahrenheit 12/01/2023 Blood pressure diastolic 00 mm Hg 12/01/2023 Height 64.5 in 12/01/2023 Blood pressure systolic 000 mm Hg 12/01/2023 Weight 157 lb 2 oz lbs 12/01/2023 BMI 26.55 kg/m2 12/01/2023 Encounters Encounter Location Date Provider Diagnosis [facility] [address] [place] [phone] 12/29/2023 Fidencio Vila Jr Rectal bleeding K62.5 [facility] [address] [place] [phone] 12/01/2023 Fidencio Vila Jr Rectal bleeding K62.5 ; Gastroesophageal reflux disease without esophagitis K21.9 and Elevated LFTs R79.89 [facility] [address] [place] [phone] 06/10/2023 Fidencio Vila Jr [facility] [address] [place] [phone] 12/01/2023 Fidencio Vila Jr [facility] [address] [place] [phone] 12/24/2023 Fidencio Vila Jr [facility] [address] [place] [phone] 12/31/2023 Fidencio Vila Jr ASSESSMENTS Encounter Date Diagnosis Assessment Notes Treatment Notes Treatment Clinical Notes 12/29/2023 Rectal bleeding (ICD-10 - K62.5) 12/01/2023 Rectal bleeding (ICD-10 - K62.5) Colonoscopy [...] COLONOSCOPY 12/01/2023 Next Appt Details Provider Name:Fidencio haider , 01/03/2025 09:20:00 AM, [address], [address], [place], [address], Insurance Providers Payer Name Payer Address Payer Phone Subscriber Number Group Number Insured Name Patient Relationship to Insured Coverage Start Date Coverage End Date [facility] [address] [place] [phone] [id number] TAY TYLER Self - patient is the [...] partial hysterectomy tonsillectomy cancer in uterus [phone] Laparoscopic bypass surgery 11/14
--- OUTSIDE RECORDS SUMMARY | 2024-06-08 09:30 | XMS_ITS ---
Author Organization [facility] Address [address] [place] [address] [place] [phone] Care Team Providers Care Feeder Driver Name Role Phone MICHAEL YANEZ N.P. Primary Care Provider Tiara Vila Jr, Fidencio Rivera REASON FOR VISIT bowel prep MEDICATIONS Medication [...] Active Encounters Encounter Location Date Provider Diagnosis [address] [phone] 12/24/2023 Fidencio Vila Jr PLAN OF TREATMENT [...] Provider Name:Fidencio haider Jr, 01/03/2025 09:20:00 AM, [address] [place] [address], [address], [place], [address],
--- OUTSIDE RECORDS SUMMARY | 2024-06-08 09:30 | XMS_ITS ---
Author Organization [facility] Address [address] [place] [address] Drive [address] [place] [address] Care Team Providers Care Milieu Coordinator Name Role Phone MICHAEL YANEZ N.P. Primary Care Provider Fidencio Langley Jr [phone] REASON FOR VISIT rectal bleeding Encounters Encounter Location Date Provider Diagnosis [facility] Out[facility] [address] [place] [phone] 12/29/2023 Fidencio Vila Jr Rectal bleeding K62.5 ASSESSMENTS Encounter Date Diagnosis Assessment Notes Treatment Notes Treatment Clinical Notes 12/29/2023 Rectal bleeding (ICD-10 - K62.5) PLAN OF TREATMENT Next Appt Details Provider Name:Fidencio haider Jr, 01/03/2025 09:20:00 AM, [address] [place] [address], [address], [place], [address],
--- NOTE | 2024-06-08 10:00 | ED_ITS ---
HPI - Extremity Problem General Chief complaint: Extremity Problem Stated complaint: Toe injury Time Seen by Provider: 06/08/24 09:26 Source: patient and rail tractor operator (Slovenian) Mode of arrival: ambulatory Limitations: language barrier (Slovenian speaking) History of Present Illness ED Provider: ANTHONY MO PA-C HPI Narrative: 59 year old zambian speaking female with pmhx significant for hypothyroidism, hyperparathyroidism, osteoporosis, anemia, asthma, anxiety, depression, PETER with CPAP, GERD, IBS, hypertension, chronic migraine presents to the ED today for evaluation of toe pain x 24 hours. Patient reports standing on stairs to hang something yesterday, tripped causing her right 1-3 toes to curl under her foot. She did not fall to the ground. Denies head strike or LOC. Not on blood thinners. Reports pain in these toes since. She has not taken any OTC pain meds for this. Able to ambulate with some discomfort. Denies fever, chills, numbness/tingling/weakness to RLE. gasket supervisor utilized throughout visit to communicate with patient. Related Data Home Medications ?Medication ?Instructions ?Recorded ?Confirmed cyanocobalamin (vitamin B-12) 1,000 mcg PO DAILY 07/05/20 05/31/24 1,000 mcg capsule diltiazem HCl 180 mg 180 mg PO DAILY 11/24/21 05/31/24 capsule,extended release 24 hr fluticasone propionate 110 1 puff PO BID 11/24/21 05/31/24 mcg/actuation HFA aerosol inhaler (Flovent HFA) pantoprazole 40 mg tablet,delayed 40 mg PO DAILY 11/24/21 05/31/24 release cholecalciferol (vitamin D3) 50 2,000 unit PO DAILY 11/26/21 05/31/24 mcg (2,000 unit) capsule losartan 50 mg tablet 50 mg PO DAILY blood pressure 11/24/22 05/31/24 levothyroxine 25 mcg tablet 25 mcg PO DAILY 01/08/23 05/31/24 riboflavin (vitamin B2) 100 mg 200 mg PO BID 01/08/23 05/31/24 tablet (Vitamin B-2) topiramate 50 mg tablet 100 mg PO BID 01/08/23 05/31/24 Previous Rx's ?Medication ?Instructions ?Recorded lidocaine 5 % topical patch 1 patch topical DAILY #15 ea 03/07/23 (Lidoderm) gabapentin 100 mg capsule 100 mg PO TID #270 caps 12/06/23 raloxifene 60 mg tablet 60 mg PO DAILY #30 tabs 05/11/24 docusate sodium 100 mg capsule 100 mg PO BID #30 caps 05/12/24 (Colace) pyridoxine (vitamin B6) 100 mg 100 mg PO DAILY 90 days #90 tabs 05/26/24 tablet oxybutynin chloride 10 mg 10 mg PO DAILY 30 days #30 tabs 05/31/24 tablet,extended release 24 hr Allergies Allergy/AdvReac Type Severity Reaction Status Date / Time ondansetron [From ZOFRAN] Allergy Unknown per H&P Verified 06/08/24 08:59 sumatriptan [From IMITREX] Allergy Unknown RASH FROM Verified 06/08/24 08:59 TABLET NOT INJECTION promethazine [From PHENERGAN] AdvReac Severe DYSTONIA Verified 06/08/24 08:59 Review of Systems Review of Systems: Yes all other systems are reviewed and are negative [facility] Past Medical History Attestation statement: The following information was validated with the patient. Source: old records reviewed and nursing notes reviewed Medical History Epidermal cyst Migraine HTN (hypertension) IBS (irritable bowel syndrome) GERD (gastroesophageal reflux disease) Chronic interstitial cystitis Sleep apnea Asthma Anemia Hypercholesteremia Depression Anxiety Sacrococcygeal pilonidal cyst Recurrent UTI Goiter Flank pain Dysuria Hypercalciuria Swelling of joint, ankle, right Swelling of right foot Vitamin D deficiency Hypothyroidism Right patella fracture History of secondary hyperparathyroidism Abnormal mammogram Well woman exam Surgical History History of removal of cyst (~05/12/24) History of bladder surgery H/O bilateral salpingo-oophorectomy S/P gastric bypass H/O left breast biopsy H/O: hysterectomy History of bilateral tubal ligation History of appendectomy Family History Family History Mother Uterine cancer Father No problems noted. 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 Skin: Warm, dry, intact. No rashes or lesions. Head: Normocephalic, atraumatic. EENT: Hearing is intact b/l. Conjunctiva clear. PERRLA. Moist mucous membranes.? Cardiac: Chest wall symmetric. RRR. Lungs: Normal respiratory effort without accessory muscle use. CTA bilaterally. Back: No midline spinous or paraspinal tenderness. No step off deformity. Ext: Upper and lower extremities atraumatic, without tenderness, deformity, swelling or erythema. Full ROM to all toes on right foot/ right ankle. ambulating with steady gait. cap refill >2 sec. 2+ pt/dp pulse intact. no calf tenderness. no ttp over Achilles tendon or plantar fascia. Neuro: AOx3. Normal speech. Sensation intact to light touch. NV intact distally. Psych: Appropriate mood and affect. Responds appropriately to questions. Course Course Course Narrative: 1100 -- xr right foot without fracture. post op shoe provided for comfort. advised to alternate tylenol/ motrin for pain. Patient has remained stable throughout ED visit today. Discussed worrisome signs and symptoms and when to return to the ED. All questions answered at this time. Patient is agreeable with disposition and stable for discharge. Medications Administered Discontinued Medications Generic Name Dose Route Start Last Admin Trade Name Freq PRN Reason Stop Dose Admin Acetaminophen 975 mg 06/08/24 10:02 06/08/24 10:10 Acetaminophen 325 Mg Tablet PO 06/08/24 10:03 975 mg ONCE ONE Administration Medical Decision Making Medical Decision Making MDM Narrative: 59 year old zambian speaking female with pmhx significant for hypothyroidism, hyperparathyroidism, osteoporosis, anemia, asthma, anxiety, depression, PETER with CPAP, GERD, IBS, hypertension, chronic migraine presents to the ED today for evaluation of toe pain x 24 hours. Vital signs stable, afebrile. Patient is nontoxic-appearing and in no acute distress. On exam, lower extremities atr aumatic, without tenderness, deformity, swelling or erythema. Full ROM to all toes on right foot/ right ankle. ambulating with steady gait. cap refill >2 sec. 2+ pt/dp pulse intact. no calf tenderness. no ttp over Achilles tendon or plantar fascia. Differential diagnosis includes contusion, MSK sprain/strain, fracture, dislocation. Unlikely neurovascular compromise, threat to limb, compartment s yndrome. Presentation not consistent with gout, pseudogout, Lyme arthritis, septic joint. Plan for x-rays, pain control, re-evaluation. Differential Diagnosis Differential Diagnoses: The differential diagnosis associated with the presentation includes As above Admission/Observation Not indicated Independent Interpretation I performed an independent interpretation of an: Plain X-Ray Interpretation: X-ray right foot without fracture, agree with radiologist's interpretation. Radiology Impression Discussion of test interpretation with radiology: I have reviewed the radiologist's reading. Radiologist Impression: EXAMINATION: XR FOOT, RIGHT CLINICAL INFORMATION: Fall. Pain. COMPARISON: Right ankle and foot radiographs dated 02/20/2017. TECHNIQUE: AP, lateral, and oblique views of the right foot. FINDINGS: No acute fracture or dislocation. Normal tarsal alignment. No joint space narrowing or marginal osteophytes. No osseous erosion. Small plantar and dorsal calcaneal spurs. XR/XR foot RT min 3V IMPRESSION: 1. No acute fracture or dislocation. 2. Small plantar and dorsal calcaneal spurs. Electronically signed by: Chuck Greenberg MD 06/08/2024 10:45 AM EDT External Record Review External record reviewed: Inpatient record, Office record, Outpatient record, Prior outpatient labs, Prior outpatient radiology, Primary care record and Outside ED record Prescription Management I considered prescription management with: Pain Medication (tylenol/ motrin) Chronic Conditions Patient?s care impacted by: Other (Osteoporosis) Social Determinants Patient?s care significantly limited by Social Determinants of Health including: Other Social Determinant of Health Procedures Orthopedic Splinting/Casting Injury #1: Side: right Lower Extremity Injury Location: foot and toe Lower Extremity Immobilizer: post-op shoe Critical Care Time Critical Care Time Critical Care Time: No Discharge Plan Discharge Clinical Impression: Strain of great toe Patient Disposition: Home, Self-Care Instructions: Post Surgical Shoe (ED) Additional Instructions: You have been evaluated in the Emergency Department today for toe pain. Your evaluation did not find evidence of medical conditions requiring emergent intervention at this time. You?ve been provided post-op shoe to use for comfort. Please rest, ice, and elevate your foot and resume normal activities as tolerated. I recommend you take 600mg ibuprofen every 6 hours or Tylenol 650mg every 6 hours as needed for pain. If needed, you can alternate these medications so that you take one medication every 3 hours. For instance, at noon take ibuprofen, then at 3pm take Tylenol, then at 6pm take ibuprofen. Please schedule an appointment for follow up with your primary care provider this week. Return to the Emergency Department if you experience worsening pain, numbness, tingling, change of color in your toes, or any other concerning symptoms. Prescriptions: No Action cyanocobalamin (vitamin B-12) 1,000 mcg capsule 1,000 mcg PO DAILY cholecalciferol (vitamin D3) 50 mcg (2,000 unit) capsule 2,000 unit PO DAILY gabapentin 100 mg capsule 100 mg PO TID Qty: 270 3RF raloxifene 60 mg tablet 60 mg PO DAILY Qty: 30 4RF docusate sodium [Colace] 100 mg capsule 100 mg PO BID Qty: 30 0RF pyridoxine (vitamin B6) 100 mg tablet 100 mg PO DAILY 90 Days Qty: 90 1RF lidocaine [Lidoderm] 5 % adhesive patch,medicated 1 patch topical DAILY Qty: 15 0RF Rx Instructions: leave on most painful area for up to 12 hrs pantoprazole 40 mg tablet,delayed release (DR/EC) 40 mg PO DAILY diltiazem HCl 180 mg capsule,extended release 24hr 180 mg PO DAILY Flovent HFA 110 mcg/actuation HFA aerosol inhaler 1 puff PO BID losartan 50 mg tablet 50 mg PO DAILY levothyroxine 25 mcg tablet 25 mcg PO DAILY topiramate 50 mg tablet 100 mg PO BID riboflavin (vitamin B2) [Vitamin B-2] 100 mg tablet 200 mg PO BID oxybutynin chloride 10 mg tablet extended release 24hr 10 mg PO DAILY 30 Days Qty: 30 3RF Referrals: Nupur Weir, AUTOMATIC DRILL OPERATOR [Primary Care Provider] - Stand Alone Forms: Work/School Release Print Language: Slovenian
[2024-06-08] MEDS: Acetaminophen 325 MG TABLET 975 MG PO (10:10)
[2024-06-08 11:11] VITALS: BP 127/71; PULSE 75; RESP 18; TEMP 36.8; O2SAT 97
== END 2024-06-08 11:11 | disposition home or self-care (01) ==
PROVIDERS: Emergency Provider Emergency Medicine; PCP Nurse Practitioner Primary Care
DX: S93.501A Unspecified sprain of right great toe, initial encounter (principal); M79.671 Pain in right foot; X58.XXXA Exposure to other specified factors, initial encounter; Y93.89 Activity, other specified; Y92.89 Other specified places as the place of occurrence of the external cause; Y99.8 Other external cause status; Z79.899 Other long term (current) drug therapy
CPT/HCPCS: 29515; 73630; 99283; 99284

== ENCOUNTER 2024-06-10 10:28 | Outpatient (REF) | payer MEDICAID, SELFPAY ==
[2024-06-10 11:27] LABS: Appearance Urine Clear; Color Urine Yellow; Glucose Urine UA Negative (Negative); Leukocyte Esterase Urine Trace (Negative); Nitrite Urine Negative (Negative); UMIC TRIGGER UACC YES; Urine Blood Negative (Negative); Urine Ketones Negative (Negative); Urine Protein Negative (Neg-Trace)
[2024-06-10 11:35] LABS: Bacteria Urine None Seen (None Seen); Hyaline Casts Urine 0-2 /LPF (0-2); RBC Urine 0-2 /HPF (0-2); Squamous Epithelial Cell Urine 0-2 /HPF (0-2); WBC Urine 0-5 /HPF (0-5)
== END 2024-06-10 10:29 | disposition home or self-care (01) ==
LOC: HO.LAB 10:28
PROVIDERS: PCP Nurse Practitioner Primary Care; Visit Provider Nurse Practitioner Family
DX: N39.0 Urinary tract infection, site not specified (principal); R30.0 Dysuria
CPT/HCPCS: 81001

== ENCOUNTER 2024-06-14 10:42 | Outpatient (AMB) | payer MEDICAID, SELFPAY ==
--- NOTE | 2024-06-14 10:46 | MHC.OFFVIS ---
Intake Visit Reasons: excision of cyst Intake Note: Office procedure: excision of cyst. Venue Manager Required: No Accompanied by: Self / Same As Patient Allergies ondansetron [From ZOFRAN] Allergy (Unknown, Verified 06/14/24 10:48) per H&P sumatriptan [From IMITREX] Allergy (Unknown, Verified 06/14/24 10:48) RASH FROM TABLET NOT INJECTION promethazine [From PHENERGAN] Adverse Reaction (Severe, Verified 06/14/24 10:48) DYSTONIA HPI HPI excision of cyst: Details: She is here for excision of a cyst on the shoulder on the right just under the neck. [facility] Medical History Epidermal cyst Migraine HTN (hypertension) IBS (irritable bowel syndrome) GERD (gastroesophageal reflux disease) Chronic interstitial cystitis Sleep apnea Asthma Anemia Hypercholesteremia Depression Anxiety Sacrococcygeal pilonidal cyst Recurrent UTI Goiter Flank pain Dysuria Hypercalciuria Swelling of joint, ankle, right Swelling of right foot Vitamin D deficiency Hypothyroidism Right patella fracture History of secondary hyperparathyroidism Abnormal mammogram Well woman exam Surgical History History of removal of cyst (~05/12/24) History of bladder surgery H/O bilateral salpingo-oophorectomy S/P gastric bypass H/O left breast biopsy H/O: hysterectomy History of bilateral tubal ligation History of appendectomy Family History Mother Uterine cancer Father No problems noted. 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 The area of the cyst on the back of the neck to the right was prepped and draped. Lidocaine 1% was used for local anesthesia. I made an elliptical incision on the skin surrounding this cystic induration with a blade 15. This was carried down through the full-thickness of the skin and subcutaneous fat to excise this entire cystic induration. This was sent as a specimen. This cyst measured about 1 cm in widest dimension. I closed the incision with full-thickness nylon 3-0 interrupted sutures. Dressings were applied. The procedure was completed. She tolerated the procedure well. There were no immediate complications. Estimated blood loss was less than 5 cc. 09617-[id number]/arms/legs 0.6-1cm Procedure code (CPT) selection complete Assessment & Plan Assessment & Plan (1) Epidermal cyst: Code(s): L72.0 - Epidermal cyst Category: Medical Plan: The cyst on the base of the neck near the shoulder was excised. She was given wound care instructions. I will see her for removal of sutures in about 2 weeks. Medications: New ibuprofen 200 mg PO TID PRN 10 tabs 0RF pain Coding Level of Care Code Procedure Only Diagnoses Epidermal cyst L72.0 CPT Codes Trunk/Arms/Legs - CPT: 96150-nxtge/arms/legs 0.6-1cm ([id number])
== END 2024-06-14 11:35 | disposition home or self-care (01) ==
PROVIDERS: PCP Nurse Practitioner Primary Care; Referring Provider Nurse Practitioner Primary Care; Visit Provider Surgery
DX: L72.0 Epidermal cyst (principal)
CPT/HCPCS: 11421

== ENCOUNTER 2024-06-28 13:21 | Outpatient (AMB) | payer MEDICAID, SELFPAY ==
--- NOTE | 2024-06-28 13:22 | MHC.OFFVIS ---
Vital Signs 06/28/24 13:32 Height 5 ft 5 in Weight 149 lb BMI 24.8 Intake Visit Reasons: s/p excision cyst Intake Note: This patient presents for post-op follow-up assessment status post excision epidermal cyst. Pt c/o; ? infection, reports excision of back has white discharge. Field Machinist Required: Yes Field Machinist Language: Mold Parter Services: Field Machinist Present (Marcia) Information Interpreted: non-clinical & clinical Accompanied by: Self / Same As Patient Allergies ondansetron [From ZOFRAN] Allergy (Unknown, Verified 06/28/24 13:33) per H&P sumatriptan [From IMITREX] Allergy (Unknown, Verified 06/28/24 13:33) RASH FROM TABLET NOT INJECTION promethazine [From PHENERGAN] Adverse Reaction (Severe, Verified 06/28/24 13:33) DYSTONIA HPI HPI s/p excision cyst: Details: She underwent excision of a cyst from the right neck/shoulder under local anesthesia last June 14. She tolerated procedure well. She currently denies significant complaints. [facility] Medical History Epidermal cyst Migraine HTN (hypertension) IBS (irritable bowel syndrome) GERD (gastroesophageal reflux disease) Chronic interstitial cystitis Sleep apnea Asthma Anemia Hypercholesteremia Depression Anxiety Sacrococcygeal pilonidal cyst Recurrent UTI Goiter Flank pain Dysuria Hypercalciuria Swelling of joint, ankle, right Swelling of right foot Vitamin D deficiency Hypothyroidism Right patella fracture History of secondary hyperparathyroidism Abnormal mammogram Well woman exam Surgical History History of removal of cyst (~05/12/24) History of bladder surgery H/O bilateral salpingo-oophorectomy S/P gastric bypass H/O left breast biopsy H/O: hysterectomy History of bilateral tubal ligation History of appendectomy Family History Mother Uterine cancer Father No problems noted. 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 The incision is well healed. The path report shows an epidermal cyst. I removed her sutures. She can follow up on a p.r.n. basis. Coding Level of Care Code Global (39718) Diagnoses Epidermal cyst L72.0
[2024-06-28 13:32] VITALS: BMI 24.8
== END 2024-06-28 14:10 | disposition home or self-care (01) ==
LOC: HO.HGS 13:21
PROVIDERS: PCP Nurse Practitioner Primary Care; Visit Provider Surgery
DX: L72.0 Epidermal cyst (principal)
CPT/HCPCS: 99024

== ENCOUNTER → 2024-06-28 13:21 | Outpatient (BNVA) | payer MEDICAID, SELFPAY | PROVIDERS: PCP Nurse Practitioner Primary Care; Visit Provider Surgery | DX: Z09 Encounter for follow-up examination after completed treatment for conditions other than malignant neoplasm (principal); Z87.2 Personal history of diseases of the skin and subcutaneous tissue | CPT/HCPCS: 99212 ==

== ENCOUNTER 2024-07-05 15:32 | Emergency (ER) | payer MEDICAID, SELFPAY ==
--- NOTE | ~2024-07-05 | CT_ITS ---
EXAMINATION: CT ABDOMEN AND PELVIS WITH CONTRAST CLINICAL INFORMATION: Abdominal pain. Nausea, vomiting and diarrhea. COMPARISON: March 03, 2023 TECHNIQUE: Multidetector volumetric images were obtained from the superior aspect of the liver through the pubic symphysis following administration 85 mL of Omnipaque 350 intravenous contrast. Sagittal and coronal reformatted images were obtained on the technologist's workstation. Oral contrast: No This CT examination was performed using dose optimization techniques as appropriate, variously including the following: *Automated exposure control *Adjustment of mA and/or kV according to patient size (this includes techniques or standardized protocols for targeted exams where dose is matched to indication/reason for exam; i.e. extremities or head) *Use of iterative reconstruction technique DLP: 514 mGy-cm FINDINGS: LUNG BASES: The visualized lung bases are unremarkable. LIVER, GALLBLADDER, AND BILIARY TREE: The liver is normal in size, shape, and attenuation. No focal hepatic lesion or biliary ductal dilatation is present. There has been a prior cholecystectomy. The common bile duct measures up to 1.1 cm. PANCREAS: Unremarkable. SPLEEN: Unremarkable. ADRENAL GLANDS: Unremarkable. KIDNEYS AND URETERS: The kidneys are normal in size, shape, and attenuation. There is a stable small right mid pole renal calcification. There is no hydronephrosis. BLADDER: Unremarkable. GASTROINTESTINAL TRACT: There are prominent fluid-filled and mildly thickened small bowel loops. The appendix is not confidently seen as a separate structure. There is a distended segment of mid small bowel within the left abdomen associated with surgical clips. ABDOMINAL WALL: No significant hernia is appreciated. LYMPH NODES: Normal. VASCULAR: Unremarkable. PELVIC VISCERA: Unremarkable. OSSEOUS STRUCTURES: There is diffuse thoracolumbar degenerative change. CT/CT abdomen pelvis w IV con IMPRESSION: Prominent fluid-filled and mildly thickened small bowel loops. Findings are suggestive of enteritis. There is a distended segment of mid small bowel within the left abdomen associated with surgical clips likely chronic. Fleischner guidelines were followed. Electronically signed by: Josue Montoya MD 07/06/2024 03:03 AM ROBIN
[2024-07-05 15:48] VITALS: BP 103/74; PULSE 94; RESP 20; TEMP 36.6; O2SAT 97; BMI 24.5
--- NOTE | 2024-07-05 15:52 | ED.NAVMDI ---
HPI - Nausea/Vomiting/Diarrhea General Chief complaint: Nausea/Vomiting/Diarrhea Stated complaint: abd pain-diarrhea Time Seen by Provider: 07/05/24 22:15 Related Data Home Medications ?Medication ?Instructions ?Recorded ?Confirmed cyanocobalamin (vitamin B-12) 1,000 mcg PO DAILY 07/05/20 05/31/24 1,000 mcg capsule diltiazem HCl 180 mg 180 mg PO DAILY 11/24/21 05/31/24 capsule,extended release 24 hr fluticasone propionate 110 1 puff PO BID 11/24/21 05/31/24 mcg/actuation HFA aerosol inhaler (Flovent HFA) pantoprazole 40 mg tablet,delayed 40 mg PO DAILY 11/24/21 05/31/24 release cholecalciferol (vitamin D3) 50 2,000 unit PO DAILY 11/26/21 05/31/24 mcg (2,000 unit) capsule losartan 50 mg tablet 50 mg PO DAILY blood pressure 11/24/22 05/31/24 levothyroxine 25 mcg tablet 25 mcg PO DAILY 01/08/23 05/31/24 riboflavin (vitamin B2) 100 mg 200 mg PO BID 01/08/23 05/31/24 tablet (Vitamin B-2) topiramate 50 mg tablet 100 mg PO BID 01/08/23 05/31/24 Previous Rx's ?Medication ?Instructions ?Recorded lidocaine 5 % topical patch 1 patch topical DAILY #15 ea 03/07/23 (Lidoderm) gabapentin 100 mg capsule 100 mg PO TID #270 caps 12/06/23 raloxifene 60 mg tablet 60 mg PO DAILY #30 tabs 05/11/24 docusate sodium 100 mg capsule 100 mg PO BID #30 caps 05/12/24 (Colace) pyridoxine (vitamin B6) 100 mg 100 mg PO DAILY 90 days #90 tabs 05/26/24 tablet oxybutynin chloride 10 mg 10 mg PO DAILY 30 days #30 tabs 05/31/24 tablet,extended release 24 hr ibuprofen 600 mg tablet 600 mg PO Q6-8H PRN pain (scale 06/08/24 score 1-3) #20 tabs ibuprofen 200 mg tablet 200 mg PO TID PRN pain #10 tabs 06/14/24 Allergies Allergy/AdvReac Type Severity Reaction Status Date / Time ondansetron [From ZOFRAN] Allergy Unknown per H&P Verified 07/05/24 15:50 sumatriptan [From IMITREX] Allergy Unknown RASH FROM Verified 07/05/24 15:50 TABLET NOT INJECTION promethazine [From PHENERGAN] AdvReac Severe DYSTONIA Verified 07/05/24 15:50 PMFSH Past Medical History Medical History Epidermal cyst Migraine HTN (hypertension) IBS (irritable bowel syndrome) GERD (gastroesophageal reflux disease) Chronic interstitial cystitis Sleep apnea Asthma Anemia Hypercholesteremia Depression Anxiety Sacrococcygeal pilonidal cyst Recurrent UTI Goiter Flank pain Dysuria Hypercalciuria Swelling of joint, ankle, right Swelling of right foot Vitamin D deficiency Hypothyroidism Right patella fracture History of secondary hyperparathyroidism Abnormal mammogram Well woman exam Surgical History History of removal of cyst (~05/12/24) History of bladder surgery H/O bilateral salpingo-oophorectomy S/P gastric bypass H/O left breast biopsy H/O: hysterectomy History of bilateral tubal ligation History of appendectomy Family History Family History Mother Uterine cancer Father No problems noted. 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 Full HPI, ROS, assessment and treatment plan per primary provider in the Main ED. 59 yo female here for eval of diarrhea x2 weeks. no recent travel. abd pain to epigastric region. no sick contacts. Plan: labs, UA, viral swabs Medications Administered Discontinued Medications Generic Name Dose Route Start Last Admin Trade Name Freq PRN Reason Stop Dose Admin Sodium Chloride 1,000 mls @ 999 mls/hr 07/05/24 23:00 07/06/24 00:40 Ns IV 07/06/24 00:00 Infused .Q1H1M YODIT Infusion Sodium Chloride 1,000 mls @ 999 mls/hr 07/05/24 23:00 07/06/24 02:20 Ns IV 07/06/24 00:00 Infused .Q1H1M YODIT Infusion Iohexol 85 ml 07/05/24 23:37 07/05/24 23:38 Iohexol 350 Mg/Ml 100 Ml Infus..Btl IV 07/05/24 23:38 85 ml ONCE ONE Administration Metoclopramide HCl 10 mg 07/05/24 22:48 07/05/24 23:18 Metoclopramide Hcl 10 Mg/2 Ml Vial IVPUSH 07/05/24 22:49 10 mg ONCE ONE Administration Medical Decision Making Lab Data 07/05/24 16:54 07/05/24 16:54 Labs: Lab Results 07/05/24 Range/Units 16:54 WBC 5.8 (4.8-10.8) X10*3/uL RBC 4.67 (4.20-5.50) X10*6/uL Hgb 13.3 (12.0-16.0) g/dl Hct 41.5 (37.0-47.0) % MCV 88.9 (80.0-98.0) fL MCH 28.5 (27.0-33.0) pg MCHC 32.0 (31.0-35.0) g/dl RDW 14.7 (11.0-16.0) % Plt Count 328 (160-400) X10*3/uL MPV 8.6 L (9.4-12.3) fL Immature Gran % (Auto) 0.2 (0.0-0.4) % Neut % (Auto) 44.1 L (45-73) % Lymph % (Auto) 44.4 H (20-40) % [place] % (Auto) 8.1 (2-11) % Eos % (Auto) 2.2 (0-4) % Baso % (Auto) 1.0 (0-2) % Lymph # (Auto) 2.6 (1.2-4.9) X10*3/uL [place] # (Auto) 0.5 (0.1-1.2) X10*3/uL Eos # (Auto) 0.1 (0.0-0.4) X10*3/uL Baso # (Auto) 0.1 (0.0-0.2) X10*3/uL Abs Immat Gran (auto) 0.01 (0.00-0.03) X10*3/uL Absolute Neuts (auto) 2.6 (2.0-8.3) x10*3/uL Absolute Nucleated RBC 0.000 (0.0-0.012) X10*3/uL Nucleated RBC % (auto) 0.0 (0.0-0.2) /100WBC Sodium 140 (135-145) mmol/L Potassium 3.7 (3.3-5.1) mmol/L Chloride 110 H (96-108) mmol/L Carbon Dioxide 24 (22-29) mmol/L Anion Gap 10 L (12-20) BUN 7 L (9-16) mg/dL Creatinine 0.81 (0.5-1.4) mg/dL Estim Creat Clear Calc 68.1 Estimated GFR > 60 Random Glucose 85 (60-115) mg/dL Calcium 9.3 (8.4-10.2) mg/dL Magnesium 2.1 (1.6-2.6) mg/dL Total Bilirubin 1.0 (0.0-1.0) mg/dL AST 26 (5-31) U/L ALT 20 (0-31) U/L Alkaline Phosphatase 111 (39-117) U/L Total Protein 7.0 (6.5-8.0) g/dL Albumin 4.0 (3.5-5.0) g/dL Lipase 18 (8-78) U/L Urine Color Yellow Urine Appearance Clear Urine pH 7.5 (5.0-9.0) Ur Specific [place] 1.010 (1.005-1.025) Urine Protein Negative (Neg-Trace) mg/dL Urine Glucose (UA) Negative (Negative) mg/dL Urine Ketones Negative (Negative) mg/dL Urine Blood Negative (Negative) Urine Nitrite Negative (Negative) Ur Leukocyte Esterase Small (1+) H (Negative) Urine RBC 0-2 (0-2) /HPF Urine WBC 6-10 H (0-5) /HPF Ur Squamous Epith Cells 0-2 (0-2) /HPF Urine Bacteria None Seen (None Seen) Hyaline Casts 0-2 (0-2) /LPF Influenza Type A (PCR) NEGATIVE (Negative) Influenza Type B (PCR) NEGATIVE (Negative) RSV RNA Qual (PCR) NEGATIVE (Negative) SARS-CoV-2 RNA (RT-PCR) NEGATIVE (Negative) Discharge Plan Discharge Clinical Impression: Gastroenteritis, Dehydration Patient Disposition: Home, Self-Care Instructions: Dehydration (ED), Gastroenteritis (DC) Additional Instructions: Please follow-up with your primary care physician tomorrow. If you have any worsening or new symptoms, please return to the emergency room or call 911 Prescriptions: No Action cyanocobalamin (vitamin B-12) 1,000 mcg capsule 1,000 mcg PO DAILY cholecalciferol (vitamin D3) 50 mcg (2,000 unit) capsule 2,000 unit PO DAILY gabapentin 100 mg capsule 100 mg PO TID Qty: 270 3RF raloxifene 60 mg tablet 60 mg PO DAILY Qty: 30 4RF docusate sodium [Colace] 100 mg capsule 100 mg PO BID Qty: 30 0RF pyridoxine (vitamin B6) 100 mg tablet 100 mg PO DAILY 90 Days Qty: 90 1RF ibuprofen 600 mg tablet 600 mg PO Q6-8H PRN (Reason: pain (scale score 1-3)) Qty: 20 0RF lidocaine [Lidoderm] 5 % adhesive patch,medicated 1 patch topical DAILY Qty: 15 0RF Rx Instructions: leave on most painful area for up to 12 hrs pantoprazole 40 mg tablet,delayed release (DR/EC) 40 mg PO DAILY diltiazem HCl 180 mg capsule,extended release 24hr 180 mg PO DAILY Flovent HFA 110 mcg/actuation HFA aerosol inhaler 1 puff PO BID losartan 50 mg tablet 50 mg PO DAILY levothyroxine 25 mcg tablet 25 mcg PO DAILY topiramate 50 mg tablet 100 mg PO BID riboflavin (vitamin B2) [Vitamin B-2] 100 mg tablet 200 mg PO BID oxybutynin chloride 10 mg tablet extended release 24hr 10 mg PO DAILY 30 Days Qty: 30 3RF ibuprofen 200 mg tablet 200 mg PO TID PRN (Reason: pain) Qty: 10 0RF Referrals: Nupur Weir [employer] [Primary Care Provider] - 07/11/24 Interventions: ED Discharge Assessment Last Done: 07/06/24 05:20 Discharge Date/Time: 07/06/24 05:22 Print Language: Eritrean
[2024-07-05 16:58] LABS: MANUAL DIFF FLAG NO
[2024-07-05 17:04] LABS: Basophils Absolute Auto 0.1 X10*3/uL (0.0-0.2); Eosinophils Absolute Auto 0.1 X10*3/uL (0.0-0.4); Eosinophils Percent Auto 2.2 % (0-4); Hematocrit 41.5 % (37.0-47.0); Hemoglobin 13.3 g/dl (12.0-16.0); Imm Gran Abs Auto 0.01 X10*3/uL (0.00-0.03); Imm Gran Pct Auto 0.2 % (0.0-0.4); Lymphocytes Absolute Auto 2.6 X10*3/uL (1.2-4.9); Lymphocytes Percent Auto 44.4 % (20-40); Mean Corpuscular Hemoglobin 28.5 pg (27.0-33.0); Mean Corpuscular Volume 88.9 fL (80.0-98.0); Mean Platelet Volume 8.6 fL (9.4-12.3); Monocytes Absolute Auto 0.5 X10*3/uL (0.1-1.2); Monocytes Percent Auto 8.1 % (2-11); Neutrophils Absolute Auto 2.6 x10*3/uL (2.0-8.3); Neutrophils Percent Auto 44.1 % (45-73); Platelet Count 328 X10*3/uL (160-400); Red Blood Count 4.67 X10*6/uL (4.20-5.50); Red Cell Distribution Width 14.7 % (11.0-16.0); White Blood Count 5.8 X10*3/uL (4.8-10.8)
[2024-07-05 17:06] LABS: Appearance Urine Clear; Color Urine Yellow; Glucose Urine UA Negative (Negative); Leukocyte Esterase Urine Small (1+) (Negative); Nitrite Urine Negative (Negative); PH 7.5 (5.0-9.0); UMIC TRIGGER UACC YES; Urine Blood Negative (Negative); Urine Ketones Negative (Negative); Urine Protein Negative (Neg-Trace)
[2024-07-05 17:12] LABS: Bacteria Urine None Seen (None Seen); Hyaline Casts Urine 0-2 /LPF (0-2); RBC Urine 0-2 /HPF (0-2); Squamous Epithelial Cell Urine 0-2 /HPF (0-2); UACC Culture Trigger YES
[2024-07-05 17:14] LABS: Alanine Aminotransferase 20 U/L (0-31); Alkaline Phosphatase 111 U/L (39-117); Anion Gap 10 (12-20); Aspartate Amino Transferase 26 U/L (5-31); Blood Urea Nitrogen 7 mg/dL (9-16); Calcium 9.3 mg/dL (8.4-10.2); Carbon Dioxide 24 mmol/L (22-29); Chloride 110 mmol/L (96-108); Creatinine Clr Calc Pharmacy 68.1; Estimated Glomerular Filt Rate > 60; Glucose Random 85 mg/dL (60-115); Lipase 18 U/L (8-78); Magnesium 2.1 mg/dL (1.6-2.6); Potassium 3.7 mmol/L (3.3-5.1); Sodium 140 mmol/L (135-145)
[2024-07-05 17:38] LABS: Influenza A PCR NEGATIVE (Negative); Influenza B PCR NEGATIVE (Negative); Resp Syncy Virus RNA Qual PCR NEGATIVE (Negative); SARS COV2 PCR INHOUSE NEGATIVE (Negative)
[2024-07-05 21:37] VITALS: BP 107/66; PULSE 85; RESP 16; TEMP 36.6; O2SAT 100
[2024-07-05 22:12] VITALS: BP 118/63; PULSE 95; RESP 16; TEMP 36.6; O2SAT 98
--- NOTE | 2024-07-05 22:18 | PC.NURSE ---
pt from [facility], assume care of pt at this time. Pt states, she has been having diarrhea for 2 weeks, tried to take something for it, but it was not working, and stopped. Pt states, it dont' tell me, when it is coming, it just comes out . Pt has gastric bypass surgery 3 years ago
--- NOTE | 2024-07-05 22:49 | ED_ITS ---
HPI - Nausea/Vomiting/Diarrhea General Chief complaint: Nausea/Vomiting/Diarrhea Stated complaint: abd pain-diarrhea Time Seen by Provider: 07/05/24 22:15 History of Present Illness HPI Narrative: Patient is a 59-year-old female with a history of gastric sleeve done 3 years ago presents today with having generalized malaise nausea also having some diarrhea. Not feeling well. The diarrhea is brown in color. There is no blood. There is no fever no chills. Patient is from home. No coughing or congestion positive diffuse abdominal pain. Related Data Home Medications ?Medication ?Instructions ?Recorded ?Confirmed cyanocobalamin (vitamin B-12) 1,000 mcg PO DAILY 07/05/20 05/31/24 1,000 mcg capsule diltiazem HCl 180 mg 180 mg PO DAILY 11/24/21 05/31/24 capsule,extended release 24 hr fluticasone propionate 110 1 puff PO BID 11/24/21 05/31/24 mcg/actuation HFA aerosol inhaler (Flovent HFA) pantoprazole 40 mg tablet,delayed 40 mg PO DAILY 11/24/21 05/31/24 release cholecalciferol (vitamin D3) 50 2,000 unit PO DAILY 11/26/21 05/31/24 mcg (2,000 unit) capsule losartan 50 mg tablet 50 mg PO DAILY blood pressure 11/24/22 05/31/24 levothyroxine 25 mcg tablet 25 mcg PO DAILY 01/08/23 05/31/24 riboflavin (vitamin B2) 100 mg 200 mg PO BID 01/08/23 05/31/24 tablet (Vitamin B-2) topiramate 50 mg tablet 100 mg PO BID 01/08/23 05/31/24 Previous Rx's ?Medication ?Instructions ?Recorded lidocaine 5 % topical patch 1 patch topical DAILY #15 ea 03/07/23 (Lidoderm) gabapentin 100 mg capsule 100 mg PO TID #270 caps 12/06/23 raloxifene 60 mg tablet 60 mg PO DAILY #30 tabs 05/11/24 docusate sodium 100 mg capsule 100 mg PO BID #30 caps 05/12/24 (Colace) pyridoxine (vitamin B6) 100 mg 100 mg PO DAILY 90 days #90 tabs 05/26/24 tablet oxybutynin chloride 10 mg 10 mg PO DAILY 30 days #30 tabs 05/31/24 tablet,extended release 24 hr ibuprofen 600 mg tablet 600 mg PO Q6-8H PRN pain (scale 06/08/24 score 1-3) #20 tabs ibuprofen 200 mg tablet 200 mg PO TID PRN pain #10 tabs 06/14/24 Allergies Allergy/AdvReac Type Severity Reaction Status Date / Time ondansetron [From ZOFRAN] Allergy Unknown per H&P Verified 07/05/24 15:50 sumatriptan [From IMITREX] Allergy Unknown RASH FROM Verified 07/05/24 15:50 TABLET NOT INJECTION promethazine [From PHENERGAN] AdvReac Severe DYSTONIA Verified 07/05/24 15:50 Review of Systems 2 Review of Systems: Positive abdominal pain Positive diarrhea Yes all other systems are reviewed and are negative PMFSH Past Medical History Attestation statement: The following information was validated with the patient. Medical History Epidermal cyst Migraine HTN (hypertension) IBS (irritable bowel syndrome) GERD (gastroesophageal reflux disease) Chronic interstitial cystitis Sleep apnea Asthma Anemia Hypercholesteremia Depression Anxiety Sacrococcygeal pilonidal cyst Recurrent UTI Goiter Flank pain Dysuria Hypercalciuria Swelling of joint, ankle, right Swelling of right foot Vitamin D deficiency Hypothyroidism Right patella fracture History of secondary hyperparathyroidism Abnormal mammogram Well woman exam Surgical History History of removal of cyst (~05/12/24) History of bladder surgery H/O bilateral salpingo-oophorectomy S/P gastric bypass H/O left breast biopsy H/O: hysterectomy History of bilateral tubal ligation History of appendectomy Family History Family History Mother Uterine cancer Father No problems noted. 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 Oriented X3. No acute distress. Eyes: Pupils equal, round and reactive to light. ENT: Pharynx normal. Neck: Normal inspection. Neck supple. No lymph nodes noted. No crepitus CVS: Normal heart rate and rhythm. Pulses normal. Normal S1 and S2 Respiratory: No respiratory distress. Breath sounds normal. No Wheezing. No rales Abdomen: Soft and nontender. No rigidity. No distention. good BS x4 Skin: Skin warm and dry. Normal skin color. Normal skin turgor. Extremities: No lower extremity edema. Neurovascular intact to all extremities. No Lacerations. No Rash Neuro: Oriented X 3. No motor deficit. No sensory deficit. Moving all extermities. No slurred speech Medications Administered Discontinued Medications Generic Name Dose Route Start Last Admin Trade Name Freq PRN Reason Stop Dose Admin Sodium Chloride 1,000 mls @ 999 mls/hr 07/05/24 23:00 07/06/24 00:40 Ns IV 07/06/24 00:00 Infused .Q1H1M YODIT Infusion Sodium Chloride 1,000 mls @ 999 mls/hr 07/05/24 23:00 07/06/24 00:40 Ns IV 07/06/24 00:00 999 mls/hr .Q1H1M YODIT Administration Iohexol 85 ml 07/05/24 23:37 07/05/24 23:38 Iohexol 350 Mg/Ml 100 Ml Infus..Btl IV 07/05/24 23:38 85 ml ONCE ONE Administration Metoclopramide HCl 10 mg 07/05/24 22:48 07/05/24 23:18 Metoclopramide Hcl 10 Mg/2 Ml Vial IVPUSH 07/05/24 22:49 10 mg ONCE ONE Administration Medical Decision Making Medical Decision Making [facility] Narrative: Patient is 59 years old presents today with having diarrhea for 2 weeks. Abdominal pain. History of having gastric bypass surgery multiple years ago. Given IV fluids here in the emergency department. Patient's white count is normal. Hemoglobin is 13 no evidence for anemia. Patient's electrolytes showed normal BUN and creatinine. Urine showed no signs of infection. Patient's flu COVID RSV were all negative. My interpretation patient's CT scan was grossly negative for obstruction abscess perforation. Currently awaiting CT scan results from Radiology. Differential Diagnosis Differential Diagnoses: The differential diagnosis associated with the presentation includes Obstruction, dehydration, UTI Admission/Observation Consideration of admission/observation: Escalation of care including admission/observation considered Lab Data [facility] Lab Attestation statement: I reviewed the patient's lab results. 07/05/24 16:54 07/05/24 16:54 Labs: Lab Results 07/05/24 Range/Units 16:54 WBC 5.8 (4.8-10.8) X10*3/uL RBC 4.67 (4.20-5.50) X10*6/uL Hgb 13.3 (12.0-16.0) g/dl Hct 41.5 (37.0-47.0) % MCV 88.9 (80.0-98.0) fL MCH 28.5 (27.0-33.0) pg MCHC 32.0 (31.0-35.0) g/dl RDW 14.7 (11.0-16.0) % Plt Count 328 (160-400) X10*3/uL MPV 8.6 L (9.4-12.3) fL Immature Gran % (Auto) 0.2 (0.0-0.4) % Neut % (Auto) 44.1 L (45-73) % Lymph % (Auto) 44.4 H (20-40) % [place] % (Auto) 8.1 (2-11) % Eos % (Auto) 2.2 (0-4) % Baso % (Auto) 1.0 (0-2) % Lymph # (Auto) 2.6 (1.2-4.9) X10*3/uL [place] # (Auto) 0.5 (0.1-1.2) X10*3/uL Eos # (Auto) 0.1 (0.0-0.4) X10*3/uL Baso # (Auto) 0.1 (0.0-0.2) X10*3/uL Abs Immat Gran (auto) 0.01 (0.00-0.03) X10*3/uL Absolute Neuts (auto) 2.6 (2.0-8.3) x10*3/uL Absolute Nucleated RBC 0.000 (0.0-0.012) X10*3/uL Nucleated RBC % (auto) 0.0 (0.0-0.2) /100WBC Sodium 140 (135-145) mmol/L Potassium 3.7 (3.3-5.1) mmol/L Chloride 110 H (96-108) mmol/L Carbon Dioxide 24 (22-29) mmol/L Anion Gap 10 L (12-20) BUN 7 L (9-16) mg/dL Creatinine 0.81 (0.5-1.4) mg/dL Estim Creat Clear Calc 68.1 Estimated GFR > 60 Random Glucose 85 (60-115) mg/dL Calcium 9.3 (8.4-10.2) mg/dL Magnesium 2.1 (1.6-2.6) mg/dL Total Bilirubin 1.0 (0.0-1.0) mg/dL AST 26 (5-31) U/L ALT 20 (0-31) U/L Alkaline Phosphatase 111 (39-117) U/L Total Protein 7.0 (6.5-8.0) g/dL Albumin 4.0 (3.5-5.0) g/dL Lipase 18 (8-78) U/L Urine Color Yellow Urine Appearance Clear Urine pH 7.5 (5.0-9.0) Ur Specific [place] 1.010 (1.005-1.025) Urine Protein Negative (Neg-Trace) mg/dL Urine Glucose (UA) Negative (Negative) mg/dL Urine Ketones Negative (Negative) mg/dL Urine Blood Negative (Negative) Urine Nitrite Negative (Negative) Ur Leukocyte Esterase Small (1+) H (Negative) Urine RBC 0-2 (0-2) /HPF Urine WBC 6-10 H (0-5) /HPF Ur Squamous Epith Cells 0-2 (0-2) /HPF Urine Bacteria None Seen (None Seen) Hyaline Casts 0-2 (0-2) /LPF Influenza Type A (PCR) NEGATIVE (Negative) Influenza Type B (PCR) NEGATIVE (Negative) RSV RNA Qual (PCR) NEGATIVE (Negative) SARS-CoV-2 RNA (RT-PCR) NEGATIVE (Negative) Independent Interpretation I performed an independent interpretation of an: CT Scan Discharge Plan Discharge Clinical Impression: Gastroenteritis, Dehydration Patient Disposition: Still a Patient Instructions: Gastroenteritis (DC), Dehydration (ED) Prescriptions: No Action cyanocobalamin (vitamin B-12) 1,000 mcg capsule 1,000 mcg PO DAILY cholecalciferol (vitamin D3) 50 mcg (2,000 unit) capsule 2,000 unit PO DAILY gabapentin 100 mg capsule 100 mg PO TID Qty: 270 3RF raloxifene 60 mg tablet 60 mg PO DAILY Qty: 30 4RF docusate sodium [Colace] 100 mg capsule 100 mg PO BID Qty: 30 0RF pyridoxine (vitamin B6) 100 mg tablet 100 mg PO DAILY 90 Days Qty: 90 1RF ibuprofen 600 mg tablet 600 mg PO Q6-8H PRN (Reason: pain (scale score 1-3)) Qty: 20 0RF lidocaine [Lidoderm] 5 % adhesive patch,medicated 1 patch topical DAILY Qty: 15 0RF Rx Instructions: leave on most painful area for up to 12 hrs pantoprazole 40 mg tablet,delayed release (DR/EC) 40 mg PO DAILY diltiazem HCl 180 mg capsule,extended release 24hr 180 mg PO DAILY Flovent HFA 110 mcg/actuation HFA aerosol inhaler 1 puff PO BID losartan 50 mg tablet 50 mg PO DAILY levothyroxine 25 mcg tablet 25 mcg PO DAILY topiramate 50 mg tablet 100 mg PO BID riboflavin (vitamin B2) [Vitamin B-2] 100 mg tablet 200 mg PO BID oxybutynin chloride 10 mg tablet extended release 24hr 10 mg PO DAILY 30 Days Qty: 30 3RF ibuprofen 200 mg tablet 200 mg PO TID PRN (Reason: pain) Qty: 10 0RF Referrals: Nupur Weir [employer] [Primary Care Provider] - 07/11/24 Print Language: Cymraes
[2024-07-05] MEDS: 0.9 % Sodium Chloride 1,000 ML 999 ML IV (23:18)
[2024-07-05] MEDS: Metoclopramide HCl 10 MG/2 ML VIAL IVPUSH (23:18)
[2024-07-05] MEDS: iohexoL 350 MG/ML 100 ML INFUS..BTL 85 ML IV (23:38)
[2024-07-06] MEDS: 0.9 % Sodium Chloride 1,000 ML 999 ML IV (00:40)
[2024-07-06 00:58] VITALS: BP 98/55; PULSE 63; TEMP 36.4; O2SAT 97
[2024-07-06 05:20] VITALS: BP 93/61; PULSE 64; RESP 18; TEMP 36.4; O2SAT 99
== END 2024-07-06 05:22 | disposition home or self-care (01) ==
PROVIDERS: Physician Assistant Medical; Emergency Provider Emergency Medicine Emergency Medical Services; PCP Nurse Practitioner Primary Care
DX: K52.9 Noninfective gastroenteritis and colitis, unspecified (principal); E86.0 Dehydration; Z03.818 Encounter for observation for suspected exposure to other biological agents ruled out; I10 Essential (primary) hypertension; E78.00 Pure hypercholesterolemia, unspecified; J45.909 Unspecified asthma, uncomplicated; Z79.899 Other long term (current) drug therapy
CPT/HCPCS: 0241U; 74177; 80053; 81001; 81003; 83690; 83735; 85025; 87086; 96361; 96374; 99284; J2765; Q9967

== ENCOUNTER 2024-07-13 08:42 | Outpatient (AMB) | payer MEDICAID, SELFPAY ==
--- NOTE | 2024-07-13 08:46 | A.OFFVIS_ITS ---
Intake Visit Reasons: 1m/PVR Intake Note: Patient presents today for follow up on: nephrolithiasis, interstitial cystitis, and recurrent uti Urology Medications: Vitamin B6, oxybutynin Blood Thinner: none PVR: 107ml's Rn Cardiac Rehab Required: No Accompanied by: Self / Same As Patient Allergies ondansetron [From ZOFRAN] Allergy (Unknown, Verified 07/13/24 10:36) per H&P sumatriptan [From IMITREX] Allergy (Unknown, Verified 07/13/24 10:36) RASH FROM TABLET NOT INJECTION promethazine [From PHENERGAN] Adverse Reaction (Severe, Verified 07/13/24 10:36) DYSTONIA Medication List - Last Reconciled 07/13/24 by LUCRECIA Bhatia cholecalciferol (vitamin D3) 2,000 units PO DAILY cyanocobalamin (vitamin B-12) 1,000 mcg PO DAILY diltiazem HCl CD 180 mg PO DAILY docusate sodium (Colace) 100 mg PO BID fluticasone propionate 110 mcg/actuation (Flovent HFA) 1 puff PO BID gabapentin 100 mg PO TID ibuprofen 600 mg PO Q6-8H PRN ibuprofen 200 mg PO TID PRN levothyroxine 25 mcg PO DAILY lidocaine 5% (Lidoderm) 1 patch topical DAILY losartan 50 mg PO DAILY pantoprazole 40 mg PO DAILY pyridoxine (vitamin B6) 100 mg PO DAILY 90 days raloxifene 60 mg PO DAILY riboflavin (vitamin B2) (Vitamin B-2) 200 mg PO BID solifenacin (Vesicare) 5 mg PO DAILY 30 days topiramate 100 mg PO BID HPI Comments Details: Laura is a pleasant 59 year old female patient of Dr. Weir. She has a past medical history of goiter, hypercalciuria interstitial cystitis, BV, osteoporosis, and hyperthyroidism. She presents to the office today for follow- up of her nephrolithiasis, recurrent urinary tract infections and pyelonephritis. In discussion with the patient today she reports since her last office visit here approximately 3 months ago she seeked emergency room care services at which time she was diagnosed with gastritis and is following up with Dr. Vila outpatient. She reports nausea and vomiting she had been experiencing have significantly subsided. In discussion with the patient today regarding her urinary issues she reports she continues with episodes of urinary frequency and urgency despite trial of oxybutynin 10 mg daily. In office urinalysis results reviewed with the patient today. PVR 107 mL. We discussed slight increase in PVR in relation to OAB medications. Previous workup has included renal ultrasound 05/23 noting bilateral kidneys with no lesions or hydronephrosis. Right kidney with 2 echogenic foci in the right kidney consistent with nonobstructing calculi. When asked she does report compliance with vitamin B6 as prescribed. She denies nocturia, hematuria, foul smelling urine, changes to urinary stream, flank pain, fever, and or chills. She otherwise offers no other issues or concerns at this time. [facility]LY [facility] Medical History Epidermal cyst Migraine HTN (hypertension) IBS (irritable bowel syndrome) GERD (gastroesophageal reflux disease) Chronic interstitial cystitis Sleep apnea Asthma Anemia Hypercholesteremia Depression Anxiety Sacrococcygeal pilonidal cyst Recurrent UTI Goiter Flank pain Dysuria Hypercalciuria Swelling of joint, ankle, right Swelling of right foot Vitamin D deficiency Hypothyroidism Right patella fracture History of secondary hyperparathyroidism Abnormal mammogram Well woman exam Surgical History History of removal of cyst (~05/12/24) History of bladder surgery H/O bilateral salpingo-oophorectomy S/P gastric bypass H/O left breast biopsy H/O: hysterectomy History of bilateral tubal ligation History of appendectomy Family History Mother Uterine cancer Father No problems noted. 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 Sexual orientation: Straight/Heterosexual Gender identity: Female Female Reproductive History Menstrual Age of Menarche: 13 Review of Systems Const All systems reviewed & are unremarkable except as noted in HPI and below Reports as per HPI Eyes Reports no additional complaints ENT Reports no additional complaints Card Reports no additional complaints Resp Reports no additional complaints GI Reports no additional complaints Reports as per HPI Musc Reports as per HPI Neuro Reports no additional complaints Psych Reports anxiety and Reports depression Endo Reports as per HPI Aman/Lymph Reports no additional complaints Aller/Immun Reports no additional complaints Physical Exam Const General: cooperative, healthy appearing, comfortable, no acute distress, well developed, alert and awake Orientation/consciousness: patient oriented x3 Limitations: no limitations HEENT Head: Yes normal to inspection, Yes normocephalic and Yes atraumatic Ears: hearing grossly normal bilaterally Eyes General: appearance normal, both eyes and all related structures Neck Neck: Yes normal visual inspection and Yes trachea midline Chest Chest palpation & inspection: normal inspection of the chest Resp Effort & Inspection: normal respiratory effort and able to speak in complete sentences Cardio Rate: regular rate GI Inspection: Yes normal to inspection General: Yes no CVA tenderness Back/Spine/Pelvis Back: no CVA tenderness Skin General skin exam: no rashes or lesions noted Neuro General: patient oriented x3 Extrem General: Yes normal to inspection Psych Appearance: grossly normal and well kempt Mental Status: mental status grossly normal Speech and movement: Normal speech and movement present and Clear speech present Affect: normal affect Attitude: cooperative Thought process: Normal thought process present Thought content: Normal thought content present Insight: Fair insight present (Psych) Judgement: Fair judgement present (Psych) Office Procedures Post Void Residual Post Residual Void Post Void Residual (PVR): 107 [id number] Void Residual by ultrasound Results AMB Urinalysis, Automated UA Leukoctes 70 Ynes/uL Last Edit by Lara Hull on 07/13/24 09:57 UA Nitrite Last Edit by Lara Hull on 07/13/24 09:57 UA Urobilinogen 0.2 mg/dL Last Edit by Lara Hull on 07/13/24 09:57 UA Protein 15 mg/dL Last Edit by Lara Hull on 07/13/24 09:57 UA pH 6.0 Last Edit by Lara Rollinsnura on 07/13/24 09:57 UA Blood 0 Christiano/uL Last Edit by Maximusrichmond Rianura on 07/13/24 09:57 UA Specific [place] 1.015 Last Edit by Maximusedgaralverto Rollinsnura on 07/13/24 09:57 UA Ketone Last Edit by Maximusrichmond Rianura on 07/13/24 09:57 UA Bilirubin 0 mg/dL Last Edit by Lauraalverto Rianura on 07/13/24 09:57 UA Glucose 0 mg/dL Last Edit by Maximusrichmond Rianura on 07/13/24 09:57 Results Reviewed Results Reviewed: Laboratory Last Values Urine pH (Auto) 6.0 07/13/24 09:56 Specific [place] (Auto) 1.015 07/13/24 09:56 Urine Protein (Auto) 15 mg/dL 07/13/24 09:56 Glucose (UA)(Auto) 0 mg/dL 07/13/24 09:56 Urine Blood (Auto) 0 Christiano/uL 07/13/24 09:56 Urine Bilirubin (Auto) 0 mg/dL 07/13/24 09:56 Urine Urobilinogen (Auto) 0.2 mg/dL 07/13/24 09:56 Leukocyte Esterase (Auto) 70 Ynes/uL 07/13/24 09:56 Assessment & Plan Assessment & Plan (1) Nephrolithiasis: Code(s): N20.0 - Calculus of kidney Category: Medical (2) Interstitial cystitis: Code(s): N30.10 - Interstitial cystitis (chronic) without hematuria Category: Medical (3) Urinary incontinence: Code(s): R32 - Unspecified urinary incontinence Category: Medical (4) Lower urinary tract symptoms: Code(s): R39.9 - Unspecified symptoms and signs involving the genitourinary system Category: Medical Plan In office urinalysis results reviewed the patient today; as noted above. PVR 107 mL. We discussed slight increase in PVR in relation to OAB medications. Stop oxybutynin as discussed. We discussed potential near future in office cystoscopy and or urodynamics for further assessment evaluation. Discussed bladder triggers/irritants. Start VESIcare 5 mg daily. We discussed pelvic floor therapy. Follow-up in 1-3 months with PVR; or sooner with any issues, concerns, and or questions. Orders: Orders AMB Urinalysis Automated Today Z13.9 - Encounter for screening, unspecified AMB Post Void Residual by ultrasound Today R32 - Unspecified urinary incontinence Medications: New solifenacin (Vesicare) 5 mg PO DAILY 30 days 30 tabs 3RF Discontinued oxybutynin chloride ER Discontinued Reason: Doctor's Order 10 mg PO DAILY 30 days 30 tabs 3RF N32.81 - Overactive bladder Patient Instructions: The patient had an opportunity to ask questions regarding the treatment plan. All questions were answered. Physical exam, labs, and imaging were discussed and reviewed in detail. As well as risks, benefits, and discussion of treatment choices. No major barriers to understanding were identified. The patient expressed understanding and agreement with the above treatment plan. The patient was made aware they should contact our office by phone for worsening of their current condition, the appearance of new symptoms, or with any questions or concerns. Compliance is encouraged with any medications and follow up testing that is ordered. It is a privilege to be allowed the opportunity to participate in? your urological care.? Again, if you have any questions or concerns If you have any questions or concerns please do not hesitate to contact me. The office is [phone]. This note is constructed using voice recognition software. While every effort has been made to ensure accuracy diving coach errors may have been included. Yours sincerely, JEANETH Bhatia Coding Level of Care Code Est Pt Level 4 (90780) Diagnoses Nephrolithiasis N20.0 Interstitial cystitis N30.10 Urinary incontinence R32 Lower urinary tract symptoms R39.9 CPT Codes Post Residual Void - PVR CPT Code: 85538-[id number] Void Residual by ultrasound ([id number])
== END 2024-07-13 09:28 | disposition home or self-care (01) ==
PROVIDERS: PCP Nurse Practitioner Primary Care; Visit Provider Nurse Practitioner Family
DX: N20.0 Calculus of kidney (principal); N30.10 Interstitial cystitis (chronic) without hematuria; R32 Unspecified urinary incontinence; R39.9 Unspecified symptoms and signs involving the genitourinary system; Z13.9 Encounter for screening, unspecified
CPT/HCPCS: 99214

== ENCOUNTER → 2024-07-13 08:42 | Outpatient (BNVA) | payer MEDICAID, SELFPAY | PROVIDERS: PCP Nurse Practitioner Primary Care; Visit Provider Nurse Practitioner Family | DX: N20.0 Calculus of kidney (principal); N30.10 Interstitial cystitis (chronic) without hematuria; R32 Unspecified urinary incontinence; N32.81 Overactive bladder | CPT/HCPCS: 51798; 81003; 99212 ==

== ENCOUNTER 2024-07-13 09:29 | Outpatient (REF) | payer MEDICAID, SELFPAY ==
[2024-07-13 12:56] LABS: Adenovirus F 40/41 Not Detected (Not Detect.); Astrovirus Not Detected (Not Detect.); Campylobacter Not Detected (Not Detect.); Cryptosporidium Not Detected (Not Detect.); Cyclospora cayetanensis Not Detected (Not Detect.); E. coli EAEC Not Detected (Not Detect.); E. coli EPEC Not Detected (Not Detect.); E. coli ETEC Not Detected (Not Detect.); E. coli STEC Not Detected (Not Detect.); Entamoeba histolytica Not Detected (Not Detect.); Giardia lamblia Not Detected (Not Detect.); Norovirus GI/GII Not Detected (Not Detect.); Plesiomonas shigelloides Not Detected (Not Detect.); Rotavirus A Not Detected (Not Detect.); Salmonella Not Detected (Not Detect.); Sapovirus Not Detected (Not Detect.); Shigella sp./EIEC Not Detected (Not Detect.); Vibrio Not Detected (Not Detect.); Vibrio Cholerae Not Detected (Not Detect.); Yersinia enterocolitica Not Detected (Not Detect.)
== END 2024-07-13 09:30 | disposition home or self-care (01) ==
LOC: HO.LNP 09:29
PROVIDERS: Visit Provider Nurse Practitioner Primary Care
DX: R19.7 Diarrhea, unspecified (principal)
CPT/HCPCS: 87507

== ENCOUNTER 2024-07-14 12:12 | Outpatient (REF) | payer MEDICAID, SELFPAY ==
[2024-07-14 12:37] LABS: MANUAL DIFF FLAG NO
[2024-07-14 13:34] LABS: Basophils Percent Auto 0.8 % (0-2); Eosinophils Absolute Auto 0.1 X10*3/uL (0.0-0.4); Eosinophils Percent Auto 2.7 % (0-4); Hemoglobin 12.8 g/dl (12.0-16.0); Imm Gran Abs Auto 0.01 X10*3/uL (0.00-0.03); Imm Gran Pct Auto 0.2 % (0.0-0.4); Lymphocytes Percent Auto 38.9 % (20-40); Mean Corpuscular Hemoglobin 28.6 pg (27.0-33.0); Mean Corpuscular Volume 89.5 fL (80.0-98.0); Mean Platelet Volume 8.7 fL (9.4-12.3); Monocytes Absolute Auto 0.5 X10*3/uL (0.1-1.2); Monocytes Percent Auto 9.7 % (2-11); Neutrophils Absolute Auto 2.5 x10*3/uL (2.0-8.3); Neutrophils Percent Auto 47.7 % (45-73); Platelet Count 301 X10*3/uL (160-400); Red Blood Count 4.47 X10*6/uL (4.20-5.50); Red Cell Distribution Width 14.8 % (11.0-16.0); White Blood Count 5.3 X10*3/uL (4.8-10.8)
[2024-07-14 14:08] LABS: Alanine Aminotransferase 17 U/L (0-31); Albumin Level 3.7 g/dL (3.5-5.0); Alkaline Phosphatase 104 U/L (39-117); Aspartate Amino Transferase 21 U/L (5-31); Bilirubin Direct 0.3 mg/dL (0.0-0.5); Bilirubin Total 0.7 mg/dL (0.0-1.0); Lipase 14 U/L (8-78); Total Protein 6.4 g/dL (6.5-8.0)
[2024-07-14 14:08] LABS: Appearance Urine Clear; Color Urine Yellow; Glucose Urine UA Negative (Negative); Leukocyte Esterase Urine Moderate (2+) (Negative); Nitrite Urine Negative (Negative); PH 7.5 (5.0-9.0); Specific Gravity - Urine <= 1.005 (1.005-1.025); UMIC TRIGGER UACC YES; Urine Blood Negative (Negative); Urine Ketones Negative (Negative); Urine Protein Negative (Neg-Trace)
[2024-07-14 14:15] LABS: TSH reflex Free T4 0.96 uIU/mL (0.32-4.0); Thyroid Stimulating Hormone 0.97 uIU/mL (0.32-4.0)
[2024-07-14 14:23] LABS: Bacteria Urine None Seen (None Seen); Hyaline Casts Urine 0-2 /LPF (0-2); RBC Urine 0-2 /HPF (0-2); WBC Urine 0-5 /HPF (0-5)
[2024-07-21 11:43] LABS: N-Telopeptide 76 (see note); NTXCreaRU 45 mg/dL (20-275)
== END 2024-07-14 12:13 | disposition home or self-care (01) ==
LOC: HO.LAB 12:12
PROVIDERS: Internal Medicine Gastroenterology; Absent Provider Internal Medicine Endocrinology, Diabetes & Metabolism; PCP Nurse Practitioner Primary Care; Visit Provider Nurse Practitioner Family
DX: R10.9 Unspecified abdominal pain (principal); M81.0 Age-related osteoporosis without current pathological fracture; R53.83 Other fatigue
CPT/HCPCS: 36415; 80076; 81001; 81003; 82523; 83690; 84443; 85025

== ENCOUNTER 2024-07-24 09:08 | Outpatient (AMB) | payer MEDICAID, SELFPAY ==
--- NOTE | 2024-07-24 09:12 | MHC.OFFVIS ---
Vital Signs 07/24/24 09:14 Height 5 ft 5.67 in Weight 149 lb 11.102 oz BMI 24.4 BP 126/82 Blood Pressure Location Rt brachial Position Sitting Pulse 78 Pulse Source Pulse Oximeter Intake Visit Reasons: Osteoporosis-confirmed Intake Note: Patient presents today for Osteoporosis follow up visit. Television Writer Required: Yes Television Writer Language: Video Game Developer Services: Television Writer Present Television Writer Name: Ghassan Information Interpreted: non-clinical & clinical Accompanied by: Self / Same As Patient Allergies ondansetron [From ZOFRAN] Allergy (Unknown, Verified 07/24/24 09:15) per H&P sumatriptan [From IMITREX] Allergy (Unknown, Verified 07/24/24 09:15) RASH FROM TABLET NOT INJECTION promethazine [From PHENERGAN] Adverse Reaction (Severe, Verified 07/24/24 09:15) DYSTONIA Medication List - Last Reconciled 07/24/24 by Allen Trinidad MD cetirizine 10 mg PO DAILY PRN cholecalciferol (vitamin D3) 2,000 units PO DAILY cyanocobalamin (vitamin B-12) 1,000 mcg PO DAILY dicyclomine 10 mg PO diltiazem HCl CD 180 mg PO DAILY docusate sodium (Colace) 100 mg PO BID fluticasone propionate 110 mcg/actuation (Flovent HFA) 1 puff PO BID gabapentin 100 mg PO TID ibuprofen 600 mg PO Q6-8H PRN ibuprofen 200 mg PO TID PRN levothyroxine 25 mcg PO DAILY lidocaine 5% (Lidoderm) 1 patch topical DAILY losartan 50 mg PO DAILY pantoprazole 40 mg PO DAILY pyridoxine (vitamin B6) 100 mg PO DAILY 90 days riboflavin (vitamin B2) (Vitamin B-2) 200 mg PO BID solifenacin (Vesicare) 5 mg PO DAILY 30 days topiramate 100 mg PO BID HPI Comments Details: 59 YO [Female] with PMHx of partial gastrectomy and reported secondary hyperpara is seen in consultation at the request of PCP for Osteoporosis. First diagnosed in 1 yr ago . Never Received treatment in the past No history of pathologic fracture or ONJ. Hx of fx of knee right 1 1/2 yrs ago Has servings of dietary calcium per day in the form of [].Does not Takes Calcium supplement mg daily in divided doses. Takes 2000 IU of Vitamin D daily. Takes PPI, anticoagulant, takes antiepileptic Topramax or glucocorticoid medication. Not Does weight bearing exercise Fracture history: as above Height loss: No CONTENT WRITER history: 2012 -2013 BERNIE -BSO ? Has history of Kidney stones: Denies family history of Osteoporosis or hip fracture. UTD on dental cleanings and sees dentist every 6 months. Has planned upcoming dental work for broken teet or extractions. DXA dated :FINDINGS: LEFT FEMUR, NECK: Current: BMD 0.749 g/cm2, Z-score -1.1, T-score -2.1, osteopenia. Prior: BMD 0.683 g/cm2. Baseline: BMD 0.919 g/cm2. LEFT FEMUR, TOTAL: Current: BMD 0.772 g/cm2, Z-score -1.2, T-score -1.9, osteopenia, 10.8% increase from previous, 25.8% decrease from baseline (<5% change is not significant). Prior: BMD 0.697 g/cm2. Baseline: BMD 1.041 g/cm2. AP SPINE L1-L4: Current: BMD 0.885 g/cm2, Z-score -1.6, T-score -2.5, osteoporosis, 5.5% decrease from previous, 20.5% decrease from baseline (<5% change is not significant). Prior: BMD 0.937 g/cm2. Baseline: BMD 1.113 g/cm2. Labs: Currently on Evista 60 mg q.d.. Urine NTX is elevated. Paternal aunt had breast cancer . Has significant amount of GERD [facility] Medical History Epidermal cyst Migraine HTN (hypertension) IBS (irritable bowel syndrome) GERD (gastroesophageal reflux disease) Chronic interstitial cystitis Sleep apnea Asthma Anemia Hypercholesteremia Depression Anxiety Sacrococcygeal pilonidal cyst Recurrent UTI Goiter Flank pain Dysuria Hypercalciuria Swelling of joint, ankle, right Swelling of right foot Vitamin D deficiency Hypothyroidism Right patella fracture History of secondary hyperparathyroidism Abnormal mammogram Well woman exam Surgical History History of removal of cyst (~05/12/24) History of bladder surgery H/O bilateral salpingo-oophorectomy S/P gastric bypass H/O left breast biopsy H/O: hysterectomy History of bilateral tubal ligation History of appendectomy Family History Mother Uterine cancer Father No problems noted. 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 Recent 24 hour urine for calcium was normal. Currently on calcium and vitamin-D supplementation. Currently on Evista 60 mg q.d. but urine NTX remains high After careful discussion with the patient going over options of therapy, we decided to discontinue the Evista and to give a dose of Reclast considering patient is high risk for fracture but has significant GERD and probably can not tolerate oral alendronate. I went over side effects of Reclast including acute phase reaction and told the patient to take Tylenol the day of the infusion as well as muscle aches and bone aches Medications: Discontinued raloxifene Discontinued Reason: Doctor's Order 60 mg PO DAILY 30 tabs 4RF Coding Level of Care Code Est Pt Level 3 (62374) Diagnoses Osteoporosis M81.0
[2024-07-24 09:14] VITALS: BP 126/82; PULSE 78; BMI 24.4
== END 2024-07-24 09:35 | disposition home or self-care (01) ==
PROVIDERS: PCP Nurse Practitioner Primary Care; Visit Provider Internal Medicine Endocrinology, Diabetes & Metabolism
DX: M81.0 Age-related osteoporosis without current pathological fracture (principal)
CPT/HCPCS: 99213

== ENCOUNTER → 2024-07-24 09:08 | Outpatient (BNVA) | payer MEDICAID, SELFPAY | PROVIDERS: PCP Nurse Practitioner Primary Care; Visit Provider Internal Medicine Endocrinology, Diabetes & Metabolism | DX: M81.0 Age-related osteoporosis without current pathological fracture (principal) | CPT/HCPCS: 99212 ==

== ENCOUNTER 2024-07-28 07:23 | Outpatient (REF) | payer MEDICAID, SELFPAY ==
[2024-07-28 08:31] LABS: Anion Gap 10 (12-20); Blood Urea Nitrogen 16 mg/dL (9-16); Calcium 8.4 mg/dL (8.4-10.2); Carbon Dioxide 23 mmol/L (22-29); Chloride 112 mmol/L (96-108); Estimated Glomerular Filt Rate > 60; Glucose Random 94 mg/dL (60-115); Potassium 3.9 mmol/L (3.3-5.1); Sodium 141 mmol/L (135-145)
== END 2024-07-28 07:24 | disposition home or self-care (01) ==
LOC: HO.LAB 07:23
PROVIDERS: PCP Nurse Practitioner Primary Care; Visit Provider Internal Medicine Endocrinology, Diabetes & Metabolism
DX: M81.0 Age-related osteoporosis without current pathological fracture (principal)
CPT/HCPCS: 36415; 80048

== ENCOUNTER 2024-08-07 08:48 | Outpatient (RCR) | payer MEDICAID, SELFPAY ==
[2024-08-07 08:52] VITALS: BP 106/71; PULSE 66; RESP 16; TEMP 36.5; O2SAT 100
[2024-08-07] MEDS: Zoledronic Acid/Mannitol-Water 5 MG/100 ML PGGYBK.BTL IV (09:07)
[2024-08-07] MEDS: 0.9 % Sodium Chloride Flush 10 ML SYRINGE 5 ML IVFLUSH (09:21)
== END 2024-08-07 15:24 | disposition home or self-care (01) ==
LOC: HO.INF 08:48
PROVIDERS: Visit Provider Internal Medicine Endocrinology, Diabetes & Metabolism
DX: M81.0 Age-related osteoporosis without current pathological fracture (principal)
CPT/HCPCS: 96374; J3489

== ENCOUNTER 2024-08-25 09:59 | Outpatient (REF) | payer MEDICAID, SELFPAY ==
[2024-08-25 12:32] LABS: Cholesterol 173 mg/dL (<200); HDL Cholesterol 56 mg/dL (>40); LDL Cholesterol Calculated 105 mg/dL (<100); Triglycerides 61 mg/dL (<150)
== END 2024-08-25 10:00 | disposition home or self-care (01) ==
LOC: HO.HHCL 09:59
PROVIDERS: Visit Provider Nurse Practitioner Primary Care
DX: E78.00 Pure hypercholesterolemia, unspecified (principal)
CPT/HCPCS: 36415; 80061

== ENCOUNTER 2024-08-30 11:43 | Emergency (ER) | payer MEDICAID, SELFPAY ==
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
[2024-08-30 11:45] VITALS: BP 110/75; PULSE 75; RESP 18; TEMP 36.6; O2SAT 94; BMI 24.2
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
[2024-08-30 13:30] VITALS: BP 109/70; PULSE 64; RESP 16; TEMP 36.7; O2SAT 100
[2024-08-30] MEDS: Cyclobenzaprine HCl 10 MG TABLET PO (13:47)
[2024-08-30 13:48] VITALS: BP 109/70; PULSE 64; RESP 16; TEMP 36.7; O2SAT 100
== END 2024-08-30 13:49 | disposition home or self-care (01) ==
PROVIDERS: Emergency Provider Emergency Medicine; PCP Nurse Practitioner Primary Care
DX: S39.012A Strain of muscle, fascia and tendon of lower back, initial encounter (principal); V43.52XA Car driver injured in collision with other type car in traffic accident, initial encounter; Y92.414 Local residential or business street as the place of occurrence of the external cause; Y93.9 Activity, unspecified; Y99.9 Unspecified external cause status; E03.9 Hypothyroidism, unspecified; E21.3 Hyperparathyroidism, unspecified; M81.0 Age-related osteoporosis without current pathological fracture; I10 Essential (primary) hypertension; Z79.899 Other long term (current) drug therapy
CPT/HCPCS: 72100; 99283

== ENCOUNTER → 2024-08-30 11:47 | Outpatient (BNV) | payer MEDICAID, SELFPAY | PROVIDERS: Emergency Provider Emergency Medicine; PCP Nurse Practitioner Primary Care; Visit Provider Radiology Vascular & Interventional Radiology | DX: M54.50 Low back pain, unspecified (principal); V49.40XA Driver injured in collision with unspecified motor vehicles in traffic accident, initial encounter; Z04.3 Encounter for examination and observation following other accident | CPT/HCPCS: 72100 ==

== ENCOUNTER 2024-11-23 10:07 | Outpatient (AMB) | payer MEDICAID, SELFPAY ==
[2024-11-23 10:11] VITALS: BP 104/60; BMI 24.6
--- NOTE | 2024-11-23 10:11 | MHC.OFFVIS ---
Vital Signs 11/23/24 10:11 Height 5 ft 5 in Weight 148 lb BMI 24.6 BP 104/60 Intake Visit Reasons: SOFTWARE APPLICATIONS ARCHITECT annual exam/DO NOT RS Staff Development Coordinator Rn Required: Yes Staff Development Coordinator Rn Language: Linter Operator Services: Staff Development Coordinator Rn Present (in person) Staff Development Coordinator Rn Name: Yahaira REYES Information Interpreted: non-clinical & clinical Claim Manager: Claim Manager Present (Yahaira REYES) Accompanied by: Self / Same As Patient Allergies ondansetron [From ZOFRAN] Allergy (Unknown, Verified 11/23/24 10:15) per H&P sumatriptan [From IMITREX] Allergy (Unknown, Verified 11/23/24 10:15) RASH FROM TABLET NOT INJECTION promethazine [From PHENERGAN] Adverse Reaction (Severe, Verified 11/23/24 10:15) DYSTONIA Post menopausal: Yes HPI Comments Details: Presenting for annual exam. No complaints. Last Pap/HPV was negative in 09/14, the patient is status post hysterectomy for endometrial hyperplasia Last Mammogram was BI-RADS 1 in 12/21 Last Colonoscopy was done in 01/20, the recommendation was to repeat in 10 years [facility] Medical History (Updated 11/23/24 @ 10:26 by Alex Machuca MD) Well woman exam Epidermal cyst Migraine HTN (hypertension) IBS (irritable bowel syndrome) GERD (gastroesophageal reflux disease) Chronic interstitial cystitis Sleep apnea Asthma Anemia Hypercholesteremia Depression Anxiety Sacrococcygeal pilonidal cyst Recurrent UTI Goiter Flank pain Dysuria Hypercalciuria Swelling of joint, ankle, right Swelling of right foot Vitamin D deficiency Hypothyroidism Right patella fracture History of secondary hyperparathyroidism Abnormal mammogram Surgical History History of removal of cyst (~05/12/24) History of bladder surgery H/O bilateral salpingo-oophorectomy S/P gastric bypass H/O left breast biopsy H/O: hysterectomy History of bilateral tubal ligation History of appendectomy Family History Mother Uterine cancer Father No problems noted. 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 Sexual orientation: Straight/Heterosexual Gender identity: Female Female Reproductive History Menstrual Age of Menarche: 13 Total pregnancies: 7 Full term: 4 Ab spontaneous: 3 Date of Mammogram: 12/07/23 (bi rad 1) Date of last Bone Density Screenin12/07/23 Review of Systems Const All systems reviewed & are unremarkable except as noted in HPI and below Card Reports as per HPI and Reports no additional complaints Resp Reports as per HPI and Reports no additional complaints GI Reports as per HPI and Reports no additional complaints Reports as per HPI Physical Exam Vital Signs: Last Vital Signs BP 104/60 11/23/24 10:11 BMI result Body Mass Index 24.6 Const General: cooperative, healthy appearing and comfortable General: Yes bladder normal to palpation External Female Exam: No lesion Speculum Exam - Vagina: normal appearance of the vagina, normal vaginal discharge and not erythematous Speculum Exam - Cervix: Cervix absent Bimanual exam- vagina & uterus: bladder normal to palpation and uterus absent Bimanual Exam- Adnexa, other: Other (No masses detected) Assessment & Plan Assessment & Plan (1) Well woman exam: Code(s): Z01.419 - Encounter for gynecological examination (general) (routine) without abnormal findings Category: Medical Plan: Co testing not indicated since the patient is status post hysterectomy with no history of abnormal Pap smears. Counseled the patient about the recommended dietary allowance of 1200 mg of Calcium & 600 IU of vitamin D. Mammogram ordered. The patient was instructed to perform monthly self-breast exams and schedule annual exam in a year. All questions answered and the patient verbalized understanding. Orders: Orders MM tomosynthesis screening BI Today Z12.31 - Encounter for screening mammogram for malignant neoplasm of breast Coding Level of Care Code Est Pt Prev Care 40-64y(11862) Diagnoses Well woman exam Z01.419
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
--- OUTSIDE RECORDS SUMMARY | 2024-11-23 12:52 | XMS_ITS | Encounter Summary ---
Author Organization [employer] Address [address] [facility] [address] 7[address] [place] [address] Care Team Providers Care Economic Consultant Name Role Phone Weir Nupur RENAE Primary Care Provider [phone] Encounter Details Date Type Department Care Team (Latest Contact Info) Description 11/16/2024 Travel Social History Tobacco Use Types Packs/Day Years [...] the past 12 months, has t he electric, gas, oil or water company threatened to shut off services in your [...] AM EDT documented as of this encounter Plan of Treatment Upcoming Encounters Date Type Department Care Team (Late st Contact Info) Description 12/01/2024 11:00 AM EDT [address] [facility] [address] [place] [address] Kassy Ramsey, ILENE [address] [place] [address] 12/15/2024 9:15 AM EDT Office Visit [facility] [address] [place] [address] Nupur Weir ANP [address] [place] [address] 09/28/2025 9:30 AM EST Medication Management [address] [address] Fay Leigh, PharmD [address] [place] [address] documented as of this encounter Visit Diagnoses Not on filedocumented in this encounter Care Teams Economic Consultant Relationship Specialty Start Date End Date Nupur Weir ANP [address] [place] [address] PCP - General Family Medicine 01/16/20 documented as of this encounter
--- OUTSIDE RECORDS SUMMARY | 2024-11-23 12:52 | XMS_ITS | Encounter Summary ---
Author Organization [employer] Address [address] 7[address] [place] [address] Care Team Providers Care Financial Reporting Director Name Role Phone Nupur Weir Primary Care Provider [phone] Encounter Details Date Type Department Care Team (Late st Contact Info) Description 11/16/2024 Orders Only [facility] [address] [place] [address] Nupur Weir ANP [address] [place] [address] Acute cystitis without hematuria (Primary Dx) Social History Tobacco Use Types [...] AM EDT documented as of this encounter Progress Notes * BATOOL Liang - 11/16/2024 2:47 PM EDT Spoke w/ pt - Pt w/ strep agalactiae UTI, still w/ sx, will rx amox TID x 7d. She is to let me knowif she still has sx next week. documented in this encounter Plan of Treatment Upcoming Encounters Date Type Department Care Team (Late st Contact Info) Description 12/01/2024 11:00 AM EDT Clinical Support [facility] [address] [place] [address] Kassy Ramsey RN 505 [place] [address] 12/15/2024 9:15 AM EDT Office Visit [facility] [address] [place] [address] Nupur Weir ANP [address] [place] [address] 09/28/2025 9:30 AM EST Medication Management [facility] [address] [place] [address] Fay Leigh PharmD [address] [place] [address] documented as of this encounter Visit Diagnoses Diagnosis Acute cystitis without hematuria- Primary documented in this encounter Care Teams Financial Reporting Director Relationship Specialty Start Date End Date Nupur Weir ANP [address] [place] [address] PCP - General Family Medicine 01/16/20 documented as of this encounter
--- OUTSIDE RECORDS SUMMARY | 2024-11-23 12:52 | XMS_ITS | Encounter Summary ---
Author Organization [employer] Address [address] [place] [address] 7t [place] [address] Care Team Providers Care Ssrs Developer Name Role Phone Nupur Weir Primary Care Provider [phone] Reason for Visit * Reason Comments Med Refill Encounter Details Date Type Department Care Team (Late st Contact Info) Description 01/09/2023 Refill [facility] [address] [place] [address] Nupur Weir ANP [address] [place] [address] Arthralgia, unspecified joint; Other specified hypothyroidism Social History Tobacco Use Types Packs/Day Years Used Date Smoking Tobacco: Never Passive Smoke Exposure: Never Smokeless Tobacco: Never Alcohol Use Standard Drinks/Week Comments Never 0 (1 standard drink = 0.6 oz pur e alcohol) PHQ-2 Answer Date Recorded Patient Health Questionnaire-2 Score 0 01/01/2023 Depression Answer Date Recorded Patient Health Questionnaire-2 Score 0 01/01/2023 Comments Unknown Sex and Gender Information Value Date Recorded Sex Assigned at Female 06/29/2022 10:16 AM EDT Legal Sex Female 10:16 AM EDT Gender Identity Female 06/29/2022 10:16 AM EDT Sexual Orientation Straight 06/29/2022 10 :16 AM EDT COVID-19 Exposure Response Date Recorded In the last 10 days, have yo u been in contact with someone who was confirmed or suspected to have Coronavirus/COVID-19? No / Unsure 01/01/2023 11:19 AM EDT documented as of this encounter Plan of Treatment Upcoming Encounters Date Type Department Care Team (Late st Contact Info) Description 12/01/2024 11:00 AM EDT Clinical Support [address] [address] Kassy Ramsey, ILENE [address] [place] [address] 12/15/2024 9:15 AM EDT Office Visit [address] [address] Nupur Weir ANP [address] [place] [address] 09/28/2025 9:30 AM EST Medication Management [address] [address] Fay Leigh, MayoD [address] [place] [address] documented as of this encounter Visit Diagnoses Diagnosis Arthralgia, unspecified joint Other specified hypothyroidism documented in this encounter Care Teams Ssrs Developer Relationship Specialty Start Date End Date Nupur Weir ANP [address] [place] [phone] PCP - General Family Medicine 01/16/20 documented as of this encounter
--- OUTSIDE RECORDS SUMMARY | 2024-11-23 12:52 | XMS_ITS | Encounter Summary ---
Author Organization [employer] Address [address] [facility] [address] [facility] [address] 7[address] [place] [address] Care Team Providers Care Motorcoach Driver Name Role Phone Nupur Weir Primary Care Provider [phone] Reason for Visit * Reason Comments Med Refill Encounter Details Date Type Department Care Team ([facility] st Contact Info) Description 11/07/2024 Refill [facility] [address] [place] [address] Nupur Weir ANP [address] [place] [address] Primary hypertension; Iron deficiency anemia, unspecified iron deficiency anemia type Social History Tobacco Use Types Packs/Day Years [...] the past 12 months, has t he [employer], oil or water [employer] threatened to shut off services in your [...] Description 12/01/2024 11:00 AM EDT Clinical Support [address] [address] Kassy Ramsey, RN [address] [place] [address] 12/15/2024 9:15 AM EDT Office Visit [facility] [address] [place] [address] Nupur Weir, BATOOL [address] [place] [address] 09/28/2025 9:30 AM EST Medication Management [address] [address] Fay Leigh, MayoD [address] [place] [address] documented as of this encounter Visit Diagnoses Diagnosis Primary hypertension Unspecified essential hypertension Iron deficiency anemia, unspecified iron deficiency anemia type documented in this encounter Care Teams Motorcoach Driver Relationship Specialty Start Date End Date Nupur Weir ANP [address] [place] [address] PCP - General Family Medicine 01/16/20 documented as of this encounter
--- OUTSIDE RECORDS SUMMARY | 2024-11-23 12:52 | XMS_ITS | Encounter Summary ---
Author Organization [employer] Address [address] [facility] [address] [place] [address] Care Team Providers Care Equipment Operator Warehouse Name Role Phone Nupur Weir Primary Care Provider [phone] Reason for Visit * Reason Onset Date Comments Med Refill 07/26/2024 Encounter Details Date Type Department Care Team ([facility] st Contact Info) Description 07/26/2024 Telephone [facility] [address] [place] [address] Nupur Weir ANP [address] [place] [address] Med Refill Social History Tobacco Use Types Packs/Day Years [...] AM EDT documented as of this encounter Miscellaneous Notes * Telephone Encounter - Guille Monet - 07/26/2024 3:04 PM EST TC from pt requesting medication refill. Medications needing refill : traMADol (Ultram) 50 MG tablet To be sent to: [id number] [place], [place] - [address] [place] [address] AT [facility] documented in this encounter Plan of Treatment Upcoming Encounters Date Type Department Care Team (Late st Contact Info) Description 12/01/2024 11:00 AM EDT Clinical Support [facility] [address] [place] [address] Kassy Ramsey RN [address] [place] [address] 12/15/2024 9:15 AM EDT Office Visit [facility] [address] [place] [address] Nupur Weir, ANP [address] [place] [address] 09/28/2025 9:30 AM EST Medication Management [facility] [address] [place], [place] [phone] Fay Leigh, MayoD [address] [place] [address] documented as of this encounter Visit Diagnoses Not on filedocumented in this encounter Care Teams Equipment Operator Warehouse Relationship Specialty Start Date End Date Nupur Weir ANP [address] [place], [place] [phone] PCP - General Family Medicine 01/16/20 documented as of this encounter
--- OUTSIDE RECORDS SUMMARY | 2024-11-23 12:52 | XMS_ITS | Encounter Summary ---
Author Organization [employer] Address [address] [place] [address] Care Team Providers Care Spin Instructor Name Role Phone Nupur Weir Primary Care Provider [phone] Encounter Details Date Type Department Care Team (Late st Contact Info) Description 11/16/2024 Orders Only [facility] [address] [place] [address] Nupur Weir ANP [address] [place] [address] Constipation, unspecified constipation type (Primary Dx) Social History Tobacco Use Types [...] Progress Notes * BATOOL Liang - 11/16/2024 2:56 PM EDT She is having chronic constipation despite taking senna and docusate. We will add fiber supplement and PRN miralax. documented in this encounter Plan of Treatment Upcoming Encounters Date Type Department Care Team (Late st Contact Info) Description 12/01/2024 11:00 AM EDT Clinical Support [facility] [address] [place] [address] Kassy Ramsey, ILENE [address] [place] [address] 12/15/2024 9:15 AM EDT Office Visit [address] [address] Nupur Weir ANP [address] [place] [address] 09/28/2025 9:30 AM EST Medication Management [address] [place] [address] Fay Leigh, [place] [address] [place] [address] documented as of this encounter Visit Diagnoses Diagnosis Constipation, unspecified constipation type- Primary documented in this encounter Care Teams Spin Instructor Relationship Specialty Start Date End Date Nupur Weir ANP [address] [place] [address] PCP - General Family Medicine 01/16/20 documented as of this encounter
--- OUTSIDE RECORDS SUMMARY | 2024-11-23 12:52 | XMS_ITS | Clinical Summary ---
Author Organization [employer] Address [address] [place] [address] [address] [place] [address] Care Team Providers Care Shipper Receiver Name Role Phone Carmella Michael RENAE Primary Care Provider [phone] Allergies Active Allergy Reactions Criticality Noted Date Comments Ondansetron 09/01/2022 Promethazine 04/29/2014 Sumatriptan 10/19/2011 Other reaction(s): tablet only Medications SUMAtriptan Succinate 4 MG/0.5ML solution auto-injectorIndic ations:Migraine with aura and without status migrainosus, not intractable Admin 0.5mL under the skin once as needed for migraine, can repeat once in 1 hour if not effective 1 mL 2 09/01/19 23 Active Spacer/Aero-Holdin g Chambers (OptiChamber Sylvia-Lg Mask) deviceIndications: Moderate asthma without complication, unspecified whether persistent Use for metered doses inhaler as directed 1 each 09/04/19 23 Active Additional Information Patient not taking.Reported on 05/24/2024 ferrous sulfate (Fe Tabs) 325 (65 Fe) MG EC tabletIndications: Iron deficiency anemia, unspecified iron deficiency anemia type Take 1 tab every other day with vitamin C or juice. Do not crush, chew, or split. 45 tablet 1 07/21/20 24 Active ascorbic acid (Vitamin C) 500 MG tabletIndications: Iron deficiency anemia, unspecified iron deficiency anemia type Take 1 tab every other day with iron supplement (ferrous sulfate) 45 tablet 1 07/21/20 24 Active gabapentin (Neurontin) 100 MG capsuleIndications :Arthralgia, unspecified joint 1 capsule by mouth 3 times a day 90 capsule 2 07/21/20 24 Active lidocaine (Lidoderm) 5 % patch APPLY 1 PATCH TOPICALLY TO THE SKIN DAILY. LEAVE ON MOST PAINFUL AREA FOR UP TO 12 HOURS 30 patch 1 08/01/20 24 Active dicyclomine (Bentyl) 10 MG capsule Take 1 capsule by mouth. 2 to 4 times a day 08/08/20 Active dilTIAZem CD (Cardizem CD) 180 MG 24 hr capsule Take 1 capsule by mouth Once per day. 07/14/20 24 Active fluticasone (Flonase) 50 MCG/ACT nasal spray Administer 2 sprays into each nostril Once per day. 08/10/20 24 Active magnesium oxide (Mag-Ox) 400 (240 Mg) MG tablet Take 1 tablet by mouth Once per day. 08/13/20 Active pantoprazole (ProtoNix) 40 MG EC tablet Take 1 tablet by mouth Once per day. 06/27/20 24 Active pyridoxine (Vitamin B-6) 100 MG tablet Take 1 tablet by mouth Once per day. 05/26/20 24 Active raloxifene (Evista) 60 MG tablet Take 1 tablet by mouth Once per day. 05/11/20 24 Active solifenacin (VESIcare) 5 MG tablet Take 1 tablet by mouth Once per day. 08/08/20 24 Active topiramate (Topamax) 100 MG tablet Take 1 tablet by mouth 2 times daily. 05/25/20 24 Active senna-docusate (Stimulant Laxative) 8.6-50 MG tabletIndications: Constipation, unspecified constipation type TAKE 2 TABLETS BY MOUTH DAILY NEEDED FOR CONSTIPATION 180 tablet 1 08/25/20 24 Active levothyroxine (Synthroid, Levoxyl) 25 MCG tabletIndications: Other specified hypothyroidism TAKE 1 TABLET BY MOUTH EVERY DAY BEFORE BREAKFAST 90 tablet 1 08/29/20 24 Active losartan (Cozaar) 50 MG tabletIndications: Primary hypertension TAKE 1 TABLET(50 MG) BY MOUTH IN THE MORNING 90 tablet 1 08/29/20 24 Active hydrocortisone (Anusol-HC) 2.5 % rectal creamIndications:H emorrhoids, unspecified hemorrhoid type Insert into the rectum 2 times daily. For 7 days 28 g 1 09/15/19 25 Active clotrimazole (Lotrimin) 1 % creamIndications:I ntertrigo Apply twice daily for 14-28d to navel area 30 g 09/15/19 25 Active albuterol (Ventolin HFA) 108 (90 Base) MCG/ACT inhaler INHALE 2 PUFFS BY MOUTH EVERY 4 HOURS IF NEEDED 18 g 1 09/21/19 25 Active Cholecalciferol (Vitamin D3) 125 MCG (5000 UT) chewable tablet Chew 1 tablet Once per day. otc Active Mometasone Furoate (Asmanex HFA) 100 MCG/ACT aerosol INHALE 1 PUFF BY MOUTH EVERY 12 HOURS 13 g 1 10/23/19 25 Active amoxicillin (Amoxil) 500 MG capsuleIndications :Acute cystitis without hematuria Take 1 capsule (500 mg) by mouth every 8 (eight) hours for 7 days. 21 capsule 11/17/19 25 025 Active polyethylene glycol, PEG, 3350 (MiraLax) 17 GM/SCOOP powderIndications: Constipation, unspecified constipation type Take 17 g by mouth Once daily as needed (constipation). 510 g 11/17/19 25 Active polycarbophil (FiberCon) 625 MG tabletIndications: Constipation, unspecified constipation type Take 1 tablet (625 mg) by mouth Once per day. 90 tablet 3 11/17/19 25 026 Active traMADol (Ultram) 50 MG tabletIndications: Arthralgia, unspecified joint Take 1 tablet (50 mg) by mouth every 8 (eight) hours if needed for severe pain for up to 7 days. 21 tablet 10/23/19 25 025 Active Problems Problem Noted Date Diagnosed Date Constipation 08/25/2024 Dental calculus 05/08/2024 Missing teeth, acquired 05/08/2024 Dental caries 05/08/2024 Obstructive sleep apnea 10/20/2023 Paronychia of great toe, left 05/31/2023 Assessment & Plan (05/31/2023 5:38 PM EDT): I cleaned the area with Iodine swab and alcohol pad, put on triple antibiotic ointment and dressed with gauze and non adherent dressing. Patient will repeat same dressing daily, clean with soap and water only, keep it clean and dry and put on ab ointment Rx Duricef x 5-7d. Refer to podiatry Td up to date less than 5y ago. Acute pyelonephritis 01/01/2023 Assessment & Plan (01/01/2023 12:58 PM EDT): Seems to be resolving, however given the presence of some residual symptoms I will start a new antibiotic regimen for 7 days. increase water intake fu with PCP for evaluation of kidney stone take Tylenol PRN pain DC levoquin due to intolerance and start Bactrim DS BID x7 days. Gastritis medicamentosa 01/01/2023 Assessment & Plan (01/01/2023 12:58 PM EDT): Most likely related to antibioitcs, otherwise pt seems to tolerate PO. Use Tums TID AC meals and Reglan PRN (Pt seems to be allergic to Zofran) Recurrent syncope 07/30/2022 Fracture of patella 11/04/2021 History of total hysterectomy 12/30/2012 Joint pain 12/30/2012 Headache disorder 12/20/2012 Atypical endometrial hyperplasia 11/30/2012 Migraine 10/18/2012 Hypertension 08/13/2012 Allergic rhinitis 03/10/2012 Anemia 03/10/2012 Asthma 03/10/2012 Backache 03/10/2012 Chronic interstitial cystitis 03/10/2012 Gastroesophageal reflux disease 03/10/2012 Insomnia 03/10/2012 Irritable bowel syndrome 03/10/2012 Stress incontinence, female 03/10/2012 Anxiety 02/15/2012 Depressive disorder 02/15/2012 Obesity 02/15/2012 Pure hypercholesterolemia 02/15/2012 Encounters Date Type Department Care Team Description 11/16/2024 2:15 PM EDT Office Visit [facility] [address] [place] [phone] Michael Yanez ANP Low back pain at multiple sites (Primary Dx) 11/16/2024 Orders Only [facility] [address] [place] [phone] Michael Yanez ANP Constipation, unspecified constipation type (Primary Dx) 11/16/2024 Orders Only [facility] [address] [place] [phone] Michael Yanez, BATOOL Acute cystitis without hematuria (Primary Dx) 11/16/2024 Travel 11/10/2024 Telephone [facility] [address] [facility] [place] [address] Michael Yanez ANP Referral 11/10/2024 Population Health Risk Score [facility] ([facility]) Department [address] [place] [phone] Provider, Population Health Generic 11/07/2024 Refill [facility] [address] [place] [address] Michael Yanez ANP Primary hypertension; Iron deficiency anemia, unspecified iron deficiency anemia type 10/23/2024 Travel 10/23/2024 Refill [facility] [address] [facility] [place] [address] Michael Yanez ANP Arthralgia, unspecified joint (Primary Dx) 10/23/2024 Refill [facility] [place] [place] [address] Michael Yanez ANP 10/04/2024 Telephone [facility] [address] [place] [phone] Renee Law MA november (Called pt to book appt ,pt agreed to come 12/15/24.) 09/29/2024 Telephone [facility] [address] [place] [phone] Mary Lou Obrien, PharmD 09/29/2024 Travel 09/21/2024 Refill [facility] [address] [place] [phone] Michael Yanez ANP Arthralgia, unspecified joint (Primary Dx) 09/21/2024 Refill [facility] [place] [address] Michael Yanez ANP 09/15/2024 11:00 AM EST Office Visit [facility] [address] [place] [phone] Michael Yanez ANP Hemorrhoids, unspecified hemorrhoid type (Primary Dx); Intertrigo; Dysuria; Vaginal discharge; Right ear pain; Obstructive sleep apnea 09/15/2024 Orders Only [facility] [address] [place] [phone] Michael Yanez ANP 09/15/2024 Travel 08/31/2024 Patient Outreach [facility] [address] [place] [phone] Michael Yanez ANP Transition Of Care (Tcm) 08/31/2024 Telephone [facility] [address] [place] [phone] Michael Yanez ANP Error (VOID this visit) 08/30/2024 Orders Only [facility] External Provider, [facility] 08/29/2024 Refill [facility] [address] [place], [place] [phone] Michael Yanez ANP Other specified hypothyroidism; Primary hypertension 08/25/2024 Telephone [facility] [address] [place] [address] Julianne Anne RN Results 08/25/2024 Orders Only [facility] [address] [place] [phone] Michael Yanez ANP Constipation, unspecified constipation type (Primary Dx); Constipation, unspecified constipation type 08/25/2024 Orders Only [facility] [address] [place] [phone] Michael Yanez ANP 08/25/2024 Travel from Last 3 Months Immunizations Name Administration Dates Next Due Hep B, adult 02/15/2008,10/26/2007,09/07/2007 Influenza injectable quadriv alent preservative free 09/01/2022,08/19/2021,07/12/2020,07/17,06/10/2017,10/12/2016 Influenza, IIV3, injectable 05/25/2014, 2,05/07/2011 Influenza, Split (incl. [place] f[place] antigen) 05/11/2013 Influenza, seasonal, injecta ble, preservative free 07/21/2024 Pfizer Covid-19 Vaccine 12+ 09/29/2024(Deferred: Patient decision) Pneumococcal Polysaccharide PPSV23 07/17/2018, TD (adult), 2 Lf tetanus tox oid, preservative free, adsorbed 07/12/2020,08/17/2017 Td (adult), 5 Lf tetanus tox oid, preservative free, adsorbed 08/13/2015,05/04/2014 Tdap 06/07/2009 Zoster, Recombinant 10/03/2024,07/21/2024 Social History Tobacco Use Types Packs/Day Years Used Date Smoking Tobacco: Never Passive Smoke Exposure: Never Smokeless Tobacco: Never Tobacco Cessation:Counseling Given: Not Answered Alcohol Use Standard Drinks/Week Comments Never 0 [...] Orientation Straight 06/29/2022 10 :16 AM EDT Last Filed Vital Signs Vital Sign Reading [...] oz) 11/16/2024 2:12 P M EDT Height 165.1 cm (5' 5 ) 07/07/2024 9:35 AM EST Body Mass Index 25.16 07/07/2024 9:35 AM EST Plan of Treatment Upcoming Encounters Date Type Department Care Team (Late st Contact Info) Description 12/01/2024 11:00 AM EDT Clinical Support [address] [phone] Kassy Ramsey, RN [address] [place] [address] 12/15/2024 9:15 AM EDT Office Visit [facility] [address] [place] [phone] Michael Yanez, ANP [address] [place] [phone] 09/28/2025 9:30 AM EST Medication Management [address] [address] Fay Leigh, PharmD [address] [place] [phone] Health Maintenance Due Date Last Done Comments CT Colonography 1966 FIT DNA/Cologuard 1966 FIT 1966 FOBT 1966 Sigmoidoscopy 1966 Pap Smear 1987 Cervical Cancer Screening 01/27/1996 HPV/Cotest 01/27/1996 Pneumococcal Vaccine: 50+ Years (2 of 2 - PCV) 07/17/2019 07/17/2018, 02/09/2014 SDOH Screening 11/04/2023 11/03/2022 Dental Oral Exam 11/06/2024 05/08/2024, 03/20/2022 Dental Prophylaxis 11/06/2024 05/08/2024, 03/20/2022 Depression Screening 01/03/2025 01/04/2024, 01/04/20 Dental X-Ray: Full Mouth 03/21/2025 03/20/2022 Dental X-Ray: Bitewings 05/09/2025 05/08/2024 Alcohol/Substance Use Screening 07/07/2025 07/07/2024 Tobacco Screening 11/16/2025 11/16/2024 Mammogram 12/06/2025 12/07/2023, 11/09/2018 Lipid Panel 08/25/2029 08/25/2024, 12/08/2021 DTaP/Tdap/Td Vaccines (6 - Td or Tdap) 07/12/2030 07/12/2020, 08/17/2017, 08/13/2015, Additional history exists Colonoscopy 12/28/2033 07/08/2021 Colorectal Cancer Screening 12/28/2033 RSV Patients and Patients Aged 60 years or older (1 - 1-dose 75+ series) 2041 Hepatitis B Vaccines Completed 02/15/2008, 10/26/2007, 09/07/2007 Hepatitis C Screening Completed 09/09/2022 , 12/08/2021, 08/08/2020 HIV Screening Completed 01/04/2024, 08/30, 12/08/2021, Additional history exists Influenza Vaccine Completed 07/21/2024, , 08/19/2021, Additional history exists Zoster Vaccines Completed 10/03/2024, 07/21/2024 COVID-19 Vaccine Discontinued HIB Vaccines Aged Out No longer eligi ble based on patient's age to complete this topic HPV Vaccines Aged Out No longer eligi ble based on patient's age to complete this topic Hepatitis A Vaccines Aged Out No long er eligible based on patient's age to complete this topic IPV Vaccines Aged Out No longer eligi ble based on patient's age to complete this topic Meningococcal Vaccine Aged Out No yanira werner eligible based on patient's age to complete this topic RSV under 20 months Aged Out No longe r eligible based on patient's age to complete this topic Rotavirus Vaccines Aged Out No longer eligible based on patient's age to complete this topic Procedures Procedure Name Priority Date/Time Associated Diagnosis Comments CULTURE, URINE, ROUTINE Routine 09/15/2024 5:27 PM EST POCT URINALYSIS DIPSTICK Routine 09/15/2024 12:05 PM EST Dysuria URINALYSIS, COMPLETE, WITH REFLEX TO CULTURE Routine 09/15/2024 11:58 AM EST Dysuria BACTERIAL VAGINOSIS PANEL Routine 09/15/2024 12:00 AM EST Vaginal discharge XR LUMBAR SPINE 2-3 VIEWS Routine 08/30/2024 12:38 PM EST LIPID PANEL, STANDARD Routine 08/25/2024 10:00 AM EST Full PROPHYLAXIS - ADULT Routine 05/08/2024 9:00 AM EDT Dental calculus BITEWINGS - 4 RADIOGRAPHIC IMAGES Routine 05/08/2024 9:00 AM EDT Dental calculus Missing teeth, acquired Dental caries PERIODIC ORAL EVALUATION - ESTABLISHED PATIENT Routine 05/08/2024 9:00 AM EDT Dental calculus Missing teeth, acquired Dental caries Encounter for dental examination HIV 1/2 ANTIGEN/ANTIBODY, FOURTH GENERATION W/RFL Routine 01/04/2024 9:49 AM EDT Memory loss BI MAMMOGRAM SCREENING TOMOSYNTHESIS BILATERAL Routine 12/07/2023 9:05 AM EDT HEPATITIS C ANTIBODY Routine 09/09/2022 10:23 AM EST HM COLONOSCOPY Routine 07/08/2021 12:15 PM EST from Last 3 Months or Most Recently Relevant to Health Maintenance Results * Culture, Urine, Routine (09/15/2024 5:27 PM EST) Urine Urine specimen obtained by clean catch procedure / Unknown 09/15/2024 5:27 PM EST 09/15/2024 5:27 PM EST Comment:UACC Narrative [facility] - 09/16/2024 1:25 PM EST Strep agalactiae (Grp B) Quant > 100,000 cfu/mL Susc N/A Susceptibility not routinely performed on this isolate. Specimen Source: Urine clean catch Michael RENAE LAB MICROBIOLOGY - GENERAL ORDER MARGI Final Result [facility] [address] [place] [phone] * (ABNORMAL) POCT Urinalysis (09/15/2024 12:05 PM EST) Color, UA Ciara Clarity, UA Hazy Glucose, UA Negative Bilirubin, UA Negative Ketones, UA Negative Spec Grav, UA 1.025 Blood, UA Positive(A) Negative, None Detected Comment:trace pH, UA 7.0 Protein, UA Trace Urobilinogen, UA 1.0 Leukocytes, UA Trace Negative, Rare, Trace Comment:small Nitrite, UA Negative Negative, None Detected Appearance, UA hazy QC Media Lot # [id number] Lot# Expiration Date Urine 09/15/2024 12:0 5 PM EST Michael Yanez [place] POINT OF CARE TEST ENTER/EDIT OR DERABLES Final Result * (ABNORMAL) Urinalysis, Complete, with Reflex to Culture (09/15/2024 11:58 AM EST) Color Urine Yellow [facility] Appearance Urine Turbid [facility] PH 7.0 5.0 - 9.0 [facility] Glucose Urine UA Negative Negative mg/dL [facility] Urine Blood Negative Negative [facility] Specific [place] - Urine 1.020 1.005 - 1.025 [facility] Urine Protein Negative Neg-Trace mg/dL [facility] Urine Ketones Negative Negative mg/dL [facility] Nitrite Urine Negative Negative [facility] Leukocyte Esterase Urine Moderate (2+)(A) Negative [facility] RBC Urine 0-2 0 - 2 /HPF [facility] Urine WBC 6-10 0 - 5 /HPF [facility] Urine Squamous Epithelial Cell 6-10 0 - 2 /HPF [facility] TRANSITIONAL (EPITHELIAL) CELLS (#/HPF) IN URINE Present [facility] CALCIUM OXALATE CRYSTAL, UR Present [facility] Urine Bacteria 1+ None Seen [facility] Hyaline Casts, Urine 0-2 0 - 2 /LPF [facility] Urine 09/15/2024 11:5 8 AM EST 09/15/2024 4:10 PM EST Narrative [facility] - 09/15/2024 5:19 PM EST Urine, Clean Catch Michael RENAE LAB URINE ORDERABLES Final Resul t Performing Organization Address City/[facility]/ZIP Co de Phone Number [facility] [address] [place] [address] [phone] * Bacterial Vaginosis Panel (09/15/2024 12:00 AM EST) TRICHOMONAS VAGINALIS DETECTION BY PCR NOT DETECTED Not Detect [facility] BACTERIAL VAGINOSIS DETECTION BY PCR NEGATIVE Negative [facility] Comment:The BV organism targ ets of the Xpert Xpress MVP test can becommensal in women; Xpert Xpress MVP positive results forbacterial vaginosis should be considered in conjunction withother clinical and patient information to determine thedisease status. Organisms that are not detected by the XpertXpress MVP test have also been reported to be associatedwith BV and aerobic vaginitis.The Xpert Xpress MVP test performance has not been evaluatedin patients under the age of 14. RHONDA GROUP DETECTION BY PCR NOT DETECTED Not Detect [facility] Rhonda glab krusei PCR NOT DETECTED Not Detect [facility] Swab Vaginal structure / Unknown 09/15/2024 09/15/2024 us Michael RENAE LAB MICROBIOLOGY - GENERAL ORDER MARGI Final Result [facility] [address] [place] [phone] * XR Lumbar Spine 2-3 Views (08/30/2024 12:38 PM EST) Anatomical Region Laterality Modality Spine, L-spine Radiographic Jennifer ging 08/30/2024 12:3 8 PM EST Narrative 08/30/2024 12:39 PM EST ? [facility] ?[address] ?[place] [address] ?XRay Report ? Signed ? Patient: Gladys,Laura ?MR#: [id number] ?? 28 ? : 1965 ?Acct:[id number] ? Age/Sex: 59 / F ?ADM Date: 08/30/24 ? Loc: HO.ED ? Attending Dr: ? Ordering Physician: Garth Pedersen ?? Date of Service: 08/30/24 ?? Procedure(s): XR lumbar spine 2-3V ?? Accession Number(s): [id number] ? cc: Garth Pedersen; MICHAEL YANEZ NP ? CLINICAL HISTORY: trauma ? 3 views lumbar spine ? Comparison: None ? Findings: ?? No acute fracture or acute malalignment. ?? Moderate degenerative changes within the lumbar spine most pronounced at ?? L5-S1. ? Impression: ? No acute finding. Moderate degenerative change. ? This document has been electronically signed by: Vipin Joe MD on ?? 08/30/2024 12:38:00 ? Dictated By: ?Vipin Joe MD ? Signed By: ?<Electronically signed by Vipin Joe MD in OV> ? 08/30/24 1238 ? DD/ 1238 ? TD/TT: 08/30/24 1238 ? Education Rep: ? Procedure Note Jayda, Image - 08/30/[address] [address] XRay Report Signed Patient: Aleksandar Graham#: [id number] [birth year] : 1965Acct:[id number] Age/Sex: 59 / FADM Date: 08/30/24 Loc: HO.ED Attending Dr: Ordering Physician: Garth Pedersen Date of Service: 08/30/24 Procedure(s): XR lumbar spine 2-3V Accession Number(s): [id number] cc: Garth Pedersen; MICHAEL YANEZ NP CLINICAL HISTORY: trauma 3 views lumbar spine Comparison: None Findings: No acute fracture or acute malalignment. Moderate degenerative changes within the lumbar spine most pronounced at L5-S1. Impression: No acute finding. Moderate degenerative change. This document has been electronically signed by: Vipin Joe MD on 08/30/2024 12:38:00 Dictated By: Vipin Joe MD Signed By: <Electronically signed by Vipin Joe MD in OV> 08/30/24 1238 DD/ 1238 TD/TT: 08/30/24 1238 Education Rep: [facility] External Provider IMG XR PROCEDURES Edited Result - Final * (ABNORMAL) Lipid Panel, Standard (08/25/2024 10:00 AM EST) Triglycerides 61 <150 mg/dL [facility] Comment:Desirable Triglyceri de: less than 150 mg/dLBorderline High Triglyceride 150-199 mg/dLHigh Triglyceride: 200-499 mg/dLVery High Triglyceride: greater than or equal to 5OO mg/dL Cholesterol 173 <200 mg/dL [facility] Comment:Desirable Cholestero l: less than 200 mg/dLBorderline High Cholesterol: 200-239 mg/dLHigh Cholesterol: greater than 239 mg/dL LDL Cholesterol Calculated 105(H) <100 mg/dL [facility] Comment:Desirable LDL: less than 100 mg/dLNear Optimal/Above Optimal LDL: 110- 129 mg/dLBorderline High LDL: 130-159 mg/dLHigh LDL: 160-189 mg/dLVery High LDL: greater than or equal to 190 mg/dL HDL Cholesterol 56 >40 mg/dL [facility] Comment:Desirable HDL: great er than 40 mg/dL Note: This HDL assay may give artificially low results in patients with liver disease. 08/25/2024 10:0 0 AM EST 08/25/2024 11:37 AM EST us Michael Yanez ANP LAB BLOOD ORDERABLES Final Resul t Performing Organization Address [facility] Co de Phone Number [facility] [address] [place] [phone] * HIV-1/2 Antigen and Antibodies, Fourth Generation, with Reflexes (01/04/2024 9:49 AM EDT) HIV AB/AG Nonreactive Nonreactive [facility] Comment:HIV-1 p24 Ag and/or HIV-1/HIV-2 Ab not detected.A test result that is nonreactive does not exclude thepossibility of exposure to or infection with HIV-1 and/orHIV-2. Nonreactive results in this assay for individualswith prior exposure to HIV-1 and/or HIV-2 may be due toantigen and antibody levels that are below the limit ofdetection of this assay.The Smart Cube HIV Ag/Ab Combo assay result andsupplemental assay results should be interpreted inconjunction with the patient's clinical presentation,history and other laboratory results. If the results areinconsistent with clinical evidence, additional testing issuggested to confirm the result. Blood Venous blood specimen / Unknown 01/04/2024 9:49 AM EDT 01/04/2024 11:50 AM EDT us Michael Yanez ANP LAB BLOOD ORDERABLES Final Resul t Performing Organization Address [facility] Co de Phone Number [facility] [address] [place] [phone] * BI Mammogram Screening Tomosynthesis Bilateral (12/07/2023 9:05 AM EDT) Anatomical Region Laterality Modality Breast Bilateral Mammography 12/07/2023 9:05 AM EDT Narrative 12/13/2023 5:28 AM EDT ? [facility] ? [address] ?[place] [address] ? Mammography Report ? Signed ? Patient: Gladys,Laura ?MR#: [id number] ?? 28 ? : 1965 ?Acct:[id number] ? Age/Sex: 58 / F ?ADM Date: 04/09/24 ? Loc: HO.MAMMO ? Attending Dr: Michael Yanez NP ? Ordering Physician: Alex Machuca MD ?Results: 1Negativ ?? e ? Date of Service: 12/07/23 ?Follow Up: 1 Year From Orig ?? inal Mammogram ? Procedure(s): MM tomosynthesis screening BI ?? Accession Number(s): [id number] ? cc: MICHAEL YANEZ NP; Alex Machuca MD ? EXAMINATION: ?? MM SCREENING DIGITAL BREAST TOMOSYNTHESIS, BILATERAL ? CLINICAL INFORMATION: ? Screening. Asymptomatic. ? COMPARISON: ?? Mammography: This study is compared with prior exams dating back to ?? 2019. ? TECHNIQUE: ?? Digital breast tomosynthesis is performed in both the craniocaudal and ?? mediolateral oblique views along with computer-aided detection (CAD). ?? Synthesized 2D images are generated from the tomosynthesis. ? FINDINGS: ?? There are scattered areas of fibroglandular density (ACR BI-RADS breast ?? composition Category b). ? There are no significant masses, abnormal calcifications, or other ?? abnormalities. ? There is a biopsy tissue marker in the left axilla. ? The patient has bilateral metallic hardware in the medial aspects of ?? each breast, unchanged from the previous study. The patient's left ?? nipple ring is present on the this study. ? MM/MM tomosynthesis screening BI ?? IMPRESSION: ?? No mammographic evidence of malignancy. ? ASSESSMENT: ? BI-RADS BI-RADS 1 - Negative ? RECOMMENDATION: ?? Routine annual mammography screening. ? 1 year F/U ? This examination should not preclude the clinical evaluation of a ?? suspicious palpable abnormality. ? This patient's information was entered into a reminder system with a ?? target due date for their next mammogram. ? Dictated By: ?Bebe Hagan MD ? Signed By: ?<Electronically signed by Bebe Hagan MD in OV> ? 12/13/23 05 ? DD/ 0905 ? TD/TT: ? Education Rep: ? Procedure Note Donheraclioter, Image - 12/13/2023 [facility] [address] [place] [address] Mammography Report Signed Patient: Aleksandar Graham#: [id number] 27 : 1965Acct:[id number] Age/Sex: 58 / FADM Date: 12/07/23 Loc: HO.MAMMO Attending Dr: Michael Yanez NP Ordering Physician: Alex Machucaesults: 1Negativ e Date of Service: 12/07/23Follow Up: 1 Year From Orig inal Mammogram Procedure(s): MM tomosynthesis screening BI Accession Number(s): [id number] cc: MICHAEL YANEZ NP; Alex Machuca MD EXAMINATION: MM SCREENING DIGITAL BREAST TOMOSYNTHESIS, BILATERAL CLINICAL INFORMATION: Screening. Asymptomatic. COMPARISON: Mammography: This study is compared with prior exams dating back to 2019. TECHNIQUE: Digital breast tomosynthesis is performed in both the craniocaudal and mediolateral oblique views along with computer-aided detection (CAD). Synthesized 2D images are generated from the tomosynthesis. FINDINGS: There are scattered areas of fibroglandular density (ACR BI-RADS breast composition Category b). There are no significant masses, abnormal calcifications, or other abnormalities. There is a biopsy tissue marker in the left axilla. The patient has bilateral metallic hardware in the medial aspects of each breast, unchanged from the previous study. The patient's left nipple ring is present on the this study. MM/MM tomosynthesis screening BI IMPRESSION: No mammographic evidence of malignancy. ASSESSMENT: BI-RADS BI-RADS 1 - Negative RECOMMENDATION: Routine annual mammography screening. 1 year F/U This examination should not preclude the clinical evaluation of a suspicious palpable abnormality. This patient's information was entered into a reminder system with a target due date for their next mammogram. Dictated By: Bebe Hagan MD Signed By: <Electronically signed by Bebe Hagan MD in OV> 12/13/23523 DD/ 4 TD/TT: Education Rep: [facility] External Provider IMG BI PROCEDURES Final Result * Hepatitis C Ab (09/09/2022 10:23 AM EST) Hepatitis C Antibody Nonreactive Nonreactive [facility] Comment:Antibodies to HCV no t detected; does not exclude early acuteHCV infection. 09/09/2022 10:2 3 AM EST 09/09/2022 10:23 AM EST [facility] External Provider LAB BLO OD ORDERABLES Final Result [facility] [address] [place] [address] [phone] * Hm Colonoscopy (07/08/2021 12:15 PM EST) Colonoscopy Normal Normal Fidencio Vila MD HEALTH MAINTENANCE Edited Re sult - Final from Last 3 Months or Most Recently Relevant to Health Maintenance Insurance [facility] AD[facility] Care Teams Shipper Receiver Relationship Specialty Start Date End Date Michael Yanez ANP [address] [place] [address] PCP - General Family Medicine 01/16/20
--- OUTSIDE RECORDS SUMMARY | 2024-11-23 12:52 | XMS_ITS | Encounter Summary ---
Author Organization [employer] Address [address] [place] [address] 7t [place] [address] Care Team Providers Care Furnace Operator Oil Or Gas Name Role Phone Nupur Weir Primary Care Provider [phone] Reason for Visit * Reason Onset Date Comments Med Refill 05/14/2023 Encounter Details Date Type Department Care Team ([facility] st Contact Info) Description 05/14/2023 Telephone [facility] [address] [place] [address] Nupur Weir ANP [address] [place] [address] Med Refill Social History Tobacco Use Types [...] encounter Miscellaneous Notes * Telephone Encounter - Chanel Whyte - 05/14/2023 1:36 PM EDT Tc from pt requesting med refill for medication tramadol . documented in this encounter Plan of Treatment Upcoming Encounters Date Type Department Care Team (Late st Contact Info) Description 12/01/2024 11:00 AM EDT Clinical Support [address] [address] Kassy Ramsey RN 505 [place] [address] 12/15/2024 9:15 AM EDT Office Visit [address] [address] Nupur Weir ANP [address] [place] [address] 09/28/2025 9:30 AM EST Medication Management [address] [address] Fay Leigh PharmD [address] [place] [address] documented as of this encounter Visit Diagnoses Not on filedocumented in this encounter Care Teams Furnace Operator Oil Or Gas Relationship Specialty Start Date End Date Nupur Weir ANP [address] [place] [address] PCP - General Family Medicine 01/16/20 documented as of this encounter
--- OUTSIDE RECORDS SUMMARY | 2024-11-23 12:52 | XMS_ITS | Encounter Summary ---
Author Organization [employer] Address [address] [facility] 7t [place] [address] Care Team Providers Care Professor Of Music Name Role Phone Nupur Weir Primary Care Provider [phone] Encounter Details Date Type Department Care Team ([facility] st Contact Info) Description 11/10/2024 Population Health Risk Score [facility] (C[facility]) Department [address] [facility] 7 [place] [id number] Provider, Population Health Generic Social History Tobacco Use Types Packs/Day Years [...] Description 12/01/2024 11:00 AM EDT Clinical Support [facility] [address] [place] [address] Kassy Ramsey RN 505 [place] [address] 12/15/2024 9:15 AM EDT Office Visit [facility] [address] [place] [address] Nupur Weir ANP [address] [place] [address] 09/28/2025 9:30 AM EST Medication Management [facility] [address] [place] [address] Fay Leigh, MayoD [address] [place] [address] documented as of this encounter Visit Diagnoses Not on filedocumented in this encounter Care Teams Professor Of Music Relationship Specialty Start Date End Date Nupur Weir ANP [address] [place] [address] PCP - General Family Medicine 01/16/20 documented as of this encounter
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
--- OUTSIDE RECORDS SUMMARY | 2024-11-23 12:53 | XMS_ITS | Encounter Summary ---
Author Organization [employer] Address [address] [facility] [address] 7t [place] [address] Care Team Providers Care Cylinder Die Machine Helper Name Role Phone Nupur Weir Primary Care Provider [phone] Reason for Visit * Reason Comments Med Refill Encounter Details Date Type Department Care Team ([facility] st Contact Info) Description 02/11/[address] [facility] MED[facility]INE 230 [place] [address] Nupur Weir ANP [address] [place] [address] Social History Tobacco Use Types Packs/Day Years Used Date Smoking Tobacco: Never Passive Smoke Exposure: Never Smokeless Tobacco: Never Alcohol Use Standard Drinks/Week Comments Never 0 (1 standard drink = 0.6 oz pur e alcohol) PHQ-2 Answer Date Recorded Patient Health Questionnaire-2 Score 0 01/01/2023 Housing Stability Answer Date Recorded What is your housing situation today? I have michael gilbert 06/13/[address] you li ve. Do you have problems with any of the following? None of the above 06/13/2023 Food Insecurity Answer Date Recorded Within the past 12 months, y ou worried that your food would run out before you got money to buy more: Never True 06/13/2023 Within the past 12 months,th e food you bought just didn't last and you didn't have enough money to get more: Never True Transportation Answer Date Recorded In the past 12 months, has l ack of transportation kept you from medical appts, meetings, work or from getting things needed for daily living? No 06/13/2023 Utilities Answer Date Recorded In the past 12 months, has t he electric, gas, oil or water company threatened to shut off services in your home? No 06/13/2023 Depression Answer Date Recorded Patient Health Questionnaire-2 Score 0 01/04/2024 Comments Unknown Sex and Gender Information Value [...] Description 12/01/2024 11:00 AM EDT Clinical Support [address] [address] Kassy Ramsey, ILENE [address] [place] [address] 12/15/2024 9:15 AM EDT Office Visit [address] [address] Nupur Weir ANP [address] [place] [address] 09/28/2025 9:30 AM EST Medication Management [address] [address] Fay Leigh, PharmD [address] [place] [address] documented as of this encounter Visit Diagnoses Not on filedocumented in this encounter Care Teams Cylinder Die Machine Helper Relationship Specialty Start Date End Date Nupur Weir ANP [address] [place] [address] PCP - General Family Medicine 01/16/20 documented as of this encounter
--- OUTSIDE RECORDS SUMMARY | 2024-11-23 12:53 | XMS_ITS | Encounter Summary ---
Author Organization [employer] Address [address] [facility] [facility] [address] 7[address] [place] [address] Care Team Providers Care Data Virtualization Consultant Name Role Phone Nupur Weir Primary Care Provider [phone] Encounter Details Date Type Department Care Team ([facility] st Contact Info) Description 07/05/2024 Telephone [facility] [address] [place] [address] Yarelis Rosales DDS [address] [place] [address] Social History Tobacco Use Types Packs/Day Years [...] encounter Miscellaneous Notes * Telephone Encounter - Shameka Simons - 07/05/2024 10:56 AM EST [place] doctor flip Patient called she went her pharmacy and her medication was not there. Can we send her prescriptions to her pharmacy thank you . documented in this encounter Plan of Treatment Upcoming Encounters Date Type Department Care Team (Late st Contact Info) Description 12/01/2024 11:00 AM EDT Clinical Support [facility] [address] [place] [address] Kassy Ramsey RN 505 [place] [address] 12/15/2024 9:15 AM EDT Office Visit [facility] [address] [place] [address] Nupur Weir ANP [address] [place] [address] 09/28/2025 9:30 AM EST Medication Management [facility] [address] [place] [address] Fay Leigh, PharmD [address] [place] [address] documented as of this encounter Visit Diagnoses Not on filedocumented in this encounter Care Teams Data Virtualization Consultant Relationship Specialty Start Date End Date Nupur Weir ANP 230 [place] [address] PCP - General Family Medicine 01/16/20 documented as of this encounter
--- OUTSIDE RECORDS SUMMARY | 2024-11-23 12:53 | XMS_ITS ---
Author Organization [facility] Address [address] [facility] [address] [place] [address] Care Team Providers Care Director Surface Transportation Name Role Phone MICHAEL YANEZ N.P. Primary Care Provider Fidencio Langley Jr REASON FOR VISIT labs Encounters Encounter Location Date Provider Diagnosis [facility] [address] [facility] [address] [place] [address] 07/17/2024 Fidencio Vila Jr Plan Of Treatment Next Appt Details Provider Name:Fidencio haider Jr, 07/11/2025 09:40:00 AM, [address] [facility], [address], [place], [address], Progress Notes * TIFFANIE TYLERADOB: 6 (59 yo F)Acc No.[id number]:07/17/2024 Patient:?TAY TYLER :1965???Age:59 Y???Sex:Female [address] [facility] [address] * true * Date:? Generated for Viviane negrete/Shakila/eTransmitting on:?11/23/2024 12:53 PM EDT
--- OUTSIDE RECORDS SUMMARY | 2024-11-23 12:53 | XMS_ITS | Encounter Summary ---
Author Organization [employer] Address [address] [facility] [address] [address] 7t [place] [address] Care Team Providers Care Devops Consultant Name Role Phone Nupur Weir Primary Care Provider [phone] Reason for Visit * Reason Comments Med Refill Encounter Details Date Type Department Care Team ([facility] st Contact Info) Description 09/19/2023 Refill [facility] 230 [place] [address] Nupur Weir ANP 230 [place] [address] Constipation, unspecified constipation type Social History Tobacco Use Types Packs/Day [...] Description 12/01/2024 11:00 AM EDT Clinical Support [address] [address] Kassy Ramsey RN 505 [place] [address] 12/15/2024 9:15 AM EDT Office Visit [address] [address] Nupur Weir ANP [address] [place] [address] 09/28/2025 9:30 AM EST Medication Management [address] [address] Fay Leigh PharmD [address] [place] [phone] documented as of this encounter Visit Diagnoses Diagnosis Constipation, unspecified constipation type documented in this encounter Care Teams Devops Consultant Relationship Specialty Start Date End Date Nupur Weir ANP [address] [place] [address] PCP - General Family Medicine 01/16/20 documented as of this encounter
--- OUTSIDE RECORDS SUMMARY | 2024-11-23 12:53 | XMS_ITS ---
Author Organization [facility] Address [address] [place] [address] Care Team Providers Care Mortar Mixer Name Role Phone MICHAEL YANEZ N.P. Primary Care Provider Fidencio Langley Jr Unavailable [phone] Allergies Allergen (clinical drug ingredient) Drug/Non Drug Allergy documented on EMR Reaction Allergy Type Onset Date Status fentanyl fentaNYL Unknown Drug Allergy Active REASON FOR VISIT Patient presents today for diarrhea Medications Medication SIG (Take, Route, Frequency, Duration) Notes Start Date End Date Status Dicyclomine HCl 10 MG 1 tablet Orally 2- 4 times a day 07/14/2024 Active Topiramate 50 MG TAKE 1 TABLET BY MOUTH FOUR TIMES DAILY Oral for 90 Unknown Pantoprazole Sodium 40 MG TAKE 1 TABLET BY MOUTH EVERY DAY for 90 Active traMADol HCl 50 MG Oral for 7 M2550,Unavail able Active Gabapentin 100 MG TAKE 1 CAPSULE BY MOUTH FOUR TIMES DAILY Diagnosis Unavailable Oral for 30 Active Magnesium Oxide 400 MG TAKE 1 TABLET BY MOUTH DAILY Oral for 90 Active Ferrous Sulfate 325 (65 Fe) MG Oral for 90 D509,Unavaila ble Active hydrOXYzine Pamoate 50 MG TAKE 1 CAPSULE BY MOUTH AT BEDTIME. TAKE 1 CAPSULE 2 TIMES PER DAY NEEDED FOR INCREASED ANXIETY Oral for 30 Active Flovent HFA 110 MCG/ACT INHALE 1 PUFF BY MOUTH TWICE DAILY Inhalation for 60 prn Active Vitamin B12 Active Cyclobenzaprine HCl prn Active Vitamin C Active ProAir HFA 8.5gm Act jermain Calcium Citrate Acti ve Vitamin D 1000units Active Vitamin B-2 Active Levothyroxine Sodium Active Vital Signs Blood pressure systolic 00 mm Hg 07/14/20 24 Blood pressure diastolic 00 mm Hg 024 Height 64.5 in 07/14/2024 Weight 153 lbs 07/14/2024 BMI 25.85 kg/m2 07/14/2024 Encounters Encounter Location Date Provider Diagnosis [facility] [address] [place] [address] 07/14/2024 Fidencio Vila Jr Abdominal cramping R10.9 Assessments Encounter Date Diagnosis (ICD Code) Assessment Notes Treatment Notes Treatment Clinical Notes Section Notes 07/14/2024 Abdominal cramping (ICD-10 - R10.9) Dicyclomine (By mouth) material was printed We discussed her symptoms today. We discussed infectious gastroenteritis. We recommended repeat laboratory testing, and a trial of dicyclomine. It is possible that she has postinfectious IBS exacerbation. We discussed this today. She'll let us know how she's doing a month. Followup in one year. Plan Of Treatment Medication Medication Name Sig Start Date Stop Date Notes Dicyclomine HCl 10 MG 1 tablet Orally 2-4 times a day 06/30 Treatment Notes Assessment Notes Abdominal cramping Dicyclomine (By mout h) material was printed Pending Test Test Name Order Date LIVER PROFILE 07/14/2024 LIPASE 07/14/2024 TSH (THYROID STIMULATING HORMONE) 2023 CBC w DIFF 07/14/2024 Next Appt Details Follow Up: 1 Year, Reason: Provider Name:Fidencio haider Jr, 07/11/2025 09:40:00 AM, [address] [facility], [address], [place], [address], Progress Notes * GREG TYLERFRENCHB: 6 (59 yo F)Acc No.[id number]:07/14/2024 Progress Notes Patient:?TAY TYLER Provider:?Fidencio Vila MD :1965???Age:59 Y???Sex:Female D ate:07/14/2024 Address:[place] [address], [address] [place] [address] [place], [place] Pcp:MICHAEL YANEZ N.P. Subjective: * Chief Complaints: * ???1. Patient presents today for diarrhea. * HPI: ???New symptom(s):? Tay returns today for followup. She was seen in the emergency department on 07/05 with complaints of nausea, vomiting, and diarrhea. She was evaluated and diagnosed with enteritis. CT scan and labs are reviewed. Since that time, she has had cramps and diarrhea, with decreased appetite. Diarrhea resolved and she hasn't been able to go over the past couple of days. She still has cramping. There has been no rectal bleeding. There has been no fevers or chills. ?She was last seen for colonoscopy in december which was normal. This included biopsies. We reviewed this today. * Medical History:?Colonoscopy 01/20, normal including biopsies, ten-year colon recall, Irritable bowel syndrome, gastroesophageal reflux disease, EGD 07/20, normal, surgical changes from gastric bypass, biopsies negative for H. pylori, Elevated cholesterol, Migraine headaches, Urinary incontinence, Anxiety/depression, Hypertension, Interstitial cystitis, Migraines, Asthma. * Surgical History:?cystoscopy , partial bladder denervation , tubal ligation , appendectomy , partial hysterectomy , tonsillectomy , cancer in uterus x2 2012- 2013, Laparoscopic bypass surgery 11/14, removed two cyst removed from right shouder and outer colon =dr. jones . * Family History:?Father: dece ased, cancer, diagnosed with Colon cancer.?Mother: , reflux/cancer.? Positive for reflux disease in her mother. No family history of liver cancer. * Social History:?Tobacco Use:?Tobacco Use/Smoking?Are you a: nonsmoker.?Drugs/Alcohol:?Alcohol Screen?Points: 0, Interpretation: Negative.?Miscellaneous:?Marital status: single. Occupation: unemployed. * Medications:?Taking Vitamin D 1000units , Taking ProAir HFA 8.5gm , Taking Calcium Citrate , Taking Vitamin B-2 , Taking Levothyroxine Sodium , Taking Vitamin C , Taking Vitamin B12 , Taking Cyclobenzaprine HCl , Notes: prn, Taking hydrOXYzine Pamoate 50 MG Capsule TAKE 1 CAPSULE BY MOUTH AT BEDTIME. TAKE 1 CAPSULE 2 TIMES PER DAY NEEDED FOR INCREASED ANXIETY Oral , Taking Flovent HFA 110 MCG/ACT Aerosol INHALE 1 PUFF BY MOUTH TWICE DAILY Inhalation , Notes: prn, Taking Gabapentin 100 MG Capsule TAKE 1 CAPSULE BY MOUTH FOUR TIMES DAILY Diagnosis Unavailable Oral , Taking Magnesium Oxide 400 MG Tablet TAKE 1 TABLET BY MOUTH DAILY Oral , Taking Pantoprazole Sodium 40 MG Tablet Delayed Release TAKE 1 TABLET BY MOUTH EVERY DAY , Taking traMADol HCl 50 MG Tablet Oral , Notes: M2550,Unavailable, Taking Ferrous Sulfate 325 (65 Fe) MG Tablet Delayed Release Oral , Notes: D509,Unavailable, Discontinued Wellbutrin 300mg , Discontinued clonazePAM 2mg , Discontinued buPROPion HCl ER (XL) , Discontinued MiraLax (colon prep) 17 GM/SCOOP Powder mixed with Gatorade or Crystal Light Orally begin at 5:00 p.m. the day before the procedure, Discontinued Dulcolax (colon prep) 5 MG Tablet Delayed Release take at 3:00 p.m and 7:00p.m. Orally two tablets twice a day for one day, Discontinued Mirtazapine 30 MG Tablet TAKE 1 TABLET BY MOUTH EVERY NIGHT AT BEDTIME Oral , Discontinued Losartan Potassium 50 MG Tablet TAKE 1 TABLET BY MOUTH EVERY DAY FOR BLOOD PRESSURE Oral , Discontinued hydroCHLOROthiazide 12.5 MG Tablet TAKE 1 TABLET BY MOUTH DAILY Diagnosis Unavailable Oral , Discontinued MiraLax (colon prep) 17 GM/SCOOP Powder mixed with Gatorade or Crystal Light Orally begin at 5:00 p.m. the day before the procedure, Discontinued MiraLax (colon prep) 8.3 ounce ((238) grams mixed with Gatorade or Crystal Light orally begin at 5:00 p.m. the day before the procedure, Discontinued Dulcolax (colon prep) 5 MG Tablet Delayed Release take at 3:00 p.m and 7:00p.m. Orally two tablets twice a day for one day, Discontinued Estradiol 0.5 MG Tablet 1 tablet Orally , Discontinued metroNIDAZOLE , Discontinued Rizatriptan Benzoate , Discontinued Nabumetone , Discontinued Cephalexin prn, Discontinued DOK , Discontinued Loperamide HCl , Unknown Topiramate 50 MG Tablet TAKE 1 TABLET BY MOUTH FOUR TIMES DAILY Oral , Medication List reviewed and reconciled with the patient * Allergies:?fentaNYL. Objective: * Vitals:?Wt: 153 lbs, Ht: 64. 5 in, BMI:25.85 Index, BP: 00/00 mm Hg. * Examination: ???General Examination: ???On examination today, she appears well. Skin is anicteric. Lungs are clear. Heart shows regular rate. Abdomen is soft without focal masses or tenderness. Extremities are without edema. Assessment: * Assessment: 1.?Abdominal cramping - R10. 9 (Primary)? We discussed her symptoms to day. We discussed infectious gastroenteritis. We recommended repeat laboratory testing, and a trial of dicyclomine. It is possible that she has postinfectious IBS exacerbation. We discussed this today. She'll let us know how she's doing a month. Followup in one year. Plan: * Treatment: * Procedure Codes:?3017F COLOR ECTAL CA SCREEN DOC REV, G9903 Pt scrn tbco id as non user, G9745 DOC RSN FOR NOT SCREEN/REC F/U HBP * Preventive Medicine:? ??Counseling:?Care goal follow-up plan:?Above Normal BMI Follow-up?Giving encouragement to exercise,?BMI management provided?Yes.? * Follow Up:?1 Year * * Sign off status: Completed true * Provider:?Fidencio Vila MD Date:?1 09/13/2023 Generated for Viviane negrete/Shakila/eTransmitting on:?11/23/2024 12:53 PM EDT History and Physical Notes * HPI (History of Present Illness) Category Sub-Category Detail Notes Category Not es New symptom(s) Tay returns today for followup. She was seen in the emergency department on 07/05 with complaints of nausea, vomiting, and diarrhea. She was evaluated and diagnosed with enteritis. CT scan and labs are reviewed. Since that time, she has had cramps and diarrhea, with decreased appetite. Diarrhea resolved and she hasn't been able to go over the past couple of days. She still has cramping. There has been no rectal bleeding. There has been no fevers or chills. She was last seen for colonoscopy in december which was normal. This included biopsies. We reviewed this today. Examination Category Sub-Category Detail Notes Category Not es General Examination On exami nation today, she appears well. Skin is anicteric. Lungs are clear. Heart shows regular rate. Abdomen is soft without focal masses or tenderness. Extremities are without edema.
--- OUTSIDE RECORDS SUMMARY | 2024-11-23 12:53 | XMS_ITS | Encounter Summary ---
Author Organization [employer] Address [address] 7t [place] [address] Care Team Providers Care House Officer Name Role Phone Nupur Weir Primary Care Provider [phone] Reason for Visit * Reason Comments Med Refill Encounter Details Date Type Department Care Team ([facility] Contact Info) Description 06/19/2024 Refill [facility] MED[facility]INE 230 [place] [address] Nupur Weir ANP 230 [place] [address] Other specified hypothyroidism Social History Tobacco Use [...] Description 12/01/2024 11:00 AM EDT Clinical Support [address] [address] Kassy Ramsey, ILENE 505 [place] [address] 12/15/2024 9:15 AM EDT Office Visit [address] [address] Nupur Weir ANP [address] [place] [address] 09/28/2025 9:30 AM EST Medication Management [address] [address] Fay Leigh PharmD [address] [place] [address] documented as of this encounter Visit Diagnoses Diagnosis Other specified hypothyroidism documented in this encounter Care Teams House Officer Relationship Specialty Start Date End Date Nupur Weir ANP [address] [place] [address] PCP - General Family Medicine 01/16/20 documented as of this encounter
--- OUTSIDE RECORDS SUMMARY | 2024-11-23 12:53 | XMS_ITS | Encounter Summary ---
Author Organization [employer] Address [address] 7t [place] [address] Care Team Providers Care Commercial Administrator Name Role Phone Nupur Weir Primary Care Provider [phone] Reason for Visit * Reason Comments Med Refill Encounter Details Date Type Department Care Team ([facility] st Contact Info) Description 11/11/2023 Refill [facility] MEDICINE 230 [place] [address] Nupur Weir ANP 230 [place] [address] Social History Tobacco Use Types Packs/Day Years [...] Description 12/01/2024 11:00 AM EDT Clinical Support [address] [address] Kassy Ramsey, ILENE 505 [place] [address] 12/15/2024 9:15 AM EDT Office Visit [address] [address] Nupur Weir ANP [address] [place] [address] 09/28/2025 9:30 AM EST Medication Management [address] [address] Fay Leigh, PharmD [address] [place] [address] documented as of this encounter Visit Diagnoses Not on filedocumented in this encounter Care Teams Commercial Administrator Relationship Specialty Start Date End Date Nupur Weir ANP [address] [place] [address] PCP - General Family Medicine 01/16/20 documented as of this encounter
--- OUTSIDE RECORDS SUMMARY | 2024-11-23 12:53 | XMS_ITS | Encounter Summary ---
Author Organization [employer] Address [address] 7t [place] [address] Care Team Providers Care Customs And Immigration Officer Name Role Phone Weir Nupur RENAE Primary Care Provider [phone] Reason for Visit * Reason Comments Med Refill Encounter Details Date Type Department Care Team ([facility] st Contact Info) Description 02/11/2024 Refill [facility] MEDICINE 230 [place] [address] Marcella Colindres MD 230 [place] [address] Gastritis medicamentosa Social History Tobacco Use Types Packs/Day Years [...] Description 12/01/2024 11:00 AM EDT Clinical Support [address] [address] Kassy Ramsey, RN 505 [place] [address] 12/15/2024 9:15 AM EDT Office Visit [address] [address] Nupur Weir ANP [address] [place] [address] 09/28/2025 9:30 AM EST Medication Management [address] [address] Fay Leigh PharmD [address] [place] [address] documented as of this encounter Visit Diagnoses Diagnosis Gastritis medicamentosa Other specified gastritis without mention of hemorrhage documented in this encounter Care Teams Customs And Immigration Officer Relationship Specialty Start Date End Date Nupur Weir ANP [address] [place] [address] PCP - General Family Medicine 01/16/20 documented as of this encounter
--- OUTSIDE RECORDS SUMMARY | 2024-11-23 12:53 | XMS_ITS ---
Author Organization [facility] Address [address] [place] [address] Care Team Providers Care Computer Applications Engineer Name Role Phone MICHAEL YANEZ N.P. Primary Care Provider Tiara Vila Jr, Fidencio Rivera REASON FOR VISIT pathology Encounters Encounter Location Date Provider Diagnosis [facility] [address] [place] [address] 12/31/2023 Fidencio Vial Jr Plan Of Treatment Next Appt Details Provider Name:Fidencio haider Jr, 07/11/2025 09:40:00 AM, [address], [address], [place], [address], Progress Notes * TIFFANIE TYLERADOB: 6 (58 yo F)Acc No.[id number]:12/31/2023 Patient:?TAY TYLER :1965???Age:58 Y???Sex:Female Address:[address] [facility] [address] * true * Date:? Generated for Viviane negrete/Shakila/eTransmitting on:?11/23/2024 12:52 PM EDT
--- OUTSIDE RECORDS SUMMARY | 2024-11-23 12:53 | XMS_ITS | Encounter Summary ---
Author Organization [employer] Address [address] 7t [place] [address] Care Team Providers Care Events Specialist Name Role Phone Nupur Weir Primary Care Provider [phone] Reason for Visit * Reason Onset Date Comments Med Refill 10/01/2023 Encounter Details Date Type Department Care Team ([facility] st Contact Info) Description 10/01/2023 Telephone [facility] MEDICINE 230 [place] [address] Nupur Weir ANP 230 [place] [address] Med Refill Social History Tobacco Use Types [...] encounter Miscellaneous Notes * Telephone Encounter - Simran Mcghee - 10/01/2023 4:12 PM EST TC from pt requesting medication refill. Medications needing refill : albuterol 108 (90 Base) MCG/ACT inhaler To be sent to: [id number] [place] [facility] [address] [facility] documented in this encounter Plan of Treatment Upcoming Encounters Date Type Department Care Team (Late st Contact Info) Description 12/01/2024 11:00 AM EDT Clinical Support [facility] MEDICINE [address] [place] [address] Kassy Ramsey, RN 505 [place] [address] 12/15/2024 9:15 AM EDT Office Visit [facility] [address] [place] [address] Nupur Weir, BATOOL [address] [place] [address] 09/28/2025 9:30 AM EST Medication Management [facility] [address] [place] [address] Fay Leigh, PharmD [address] [place] [address] documented as of this encounter Visit Diagnoses Not on filedocumented in this encounter Care Teams Events Specialist Relationship Specialty Start Date End Date Nupur Weir ANP 230 [place] [address] PCP - General Family Medicine 01/16/20 documented as of this encounter
--- OUTSIDE RECORDS SUMMARY | 2024-11-23 12:54 | XMS_ITS | Encounter Summary ---
Author Organization [employer] Address [address] 7t [place] [address] Care Team Providers Care Cardiovascular Or Nurse Name Role Phone Nupur Weir Primary Care Provider [phone] Encounter Details Date Type Department Care Team (Late st Contact Info) Description 04/11/2024 Orders Only [facility] 230 [place] [address] Nupur Weir ANP 230 [place] [address] Social History Tobacco Use Types Packs/Day Years [...] Description 12/01/2024 11:00 AM EDT Clinical Support [address] [address] Kassy Ramsey, RN 505 [place] [address] 12/15/2024 9:15 AM EDT Office Visit [address] [address] Nupur Weir ANP [address] [place] [address] 09/28/2025 9:30 AM EST Medication Management [address] [address] Fay Leigh, PharmD [address] [place] [address] documented as of this encounter Visit Diagnoses Not on filedocumented in this encounter Care Teams Cardiovascular Or Nurse Relationship Specialty Start Date End Date Nupur Weir ANP [address] [place] [address] PCP - General Family Medicine 01/16/20 documented as of this encounter
--- OUTSIDE RECORDS SUMMARY | 2024-11-23 12:54 | XMS_ITS | Encounter Summary ---
Author Organization [facility] [facility] Address [address] [place] [address] 7t [place] [address] Care Team Providers Care Launch Operator Name Role Phone Nupur Weir Primary Care Provider [phone] Encounter Details Date Type Department Care Team (Latest Contact Info) Description 03/26/2022 Abstract [facility] CONVERSIONS Dental, Provider, DDS Social History Tobacco Use Types Packs/Day Years Used Date Smoking Tobacco: Never Assessed Comments Unknown Sex and Gender Information Value [...] Description 12/01/2024 11:00 AM EDT Clinical Support [facility] MEDICINE [address] [place] [address] Kassy Ramsey RN [address] [place] [address] 12/15/2024 9:15 AM EDT Office Visit [facility] [address] [place] [address] Nupur Weir ANP 230 [place] [address] 09/28/2025 9:30 AM EST Medication Management [facility] [address] [place] [address] Fay Leigh PharmD 230 [place] [address] documented as of this encounter Visit Diagnoses Not on filedocumented in this encounter Care Teams Launch Operator Relationship Specialty Start Date End Date Nupur Weir ANP 230 [place] [address] PCP - General Family Medicine 01/16/20 documented as of this encounter
--- OUTSIDE RECORDS SUMMARY | 2024-11-23 12:54 | XMS_ITS | Encounter Summary ---
Author Organization [email or web address] Address [address] 7t [place] [address] Care Team Providers Care Side Gluer Name Role Phone Nupur Weir Primary Care Provider [phone] Reason for Visit * Reason Comments Med Refill Encounter Details Date Type Department Care Team ([facility] st Contact Info) Description 07/22/2024 Refill [facility] MEDICINE 230 [place] [address] Nupur Weir ANP 230 [place] [address] Social History Tobacco Use Types Packs/Day Years [...] Description 12/01/2024 11:00 AM EDT Clinical Support [facility] MEDICINE [address] [place] [address] Kassy Ramsey, RN 505 [place] [address] 12/15/2024 9:15 AM EDT Office Visit [facility] MEDICINE [address] [place] [address] Nupur Weir ANP [address] [place] [address] 09/28/2025 9:30 AM EST Medication Management [facility] MED[facility] [address] [place] [address] Fay Leigh, PharmD [address] [place] [address] documented as of this encounter Visit Diagnoses Not on filedocumented in this encounter Care Teams Side Gluer Relationship Specialty Start Date End Date Nupur Weir ANP 230 [place] [address] PCP - General Family Medicine 01/16/20 documented as of this encounter
--- OUTSIDE RECORDS SUMMARY | 2024-11-23 12:54 | XMS_ITS | Encounter Summary ---
Author Organization [employer] [facility] Address [address] [place] [address] 7 [place] [address] Care Team Providers Care Real Estate Inspector Name Role Phone Nupur Weir Primary Care Provider [phone] Encounter Details Date Type Department Care Team (Late st Contact Info) Description 08/14/2022 Abstract [facility] 230 [place] [address] Angel Lagos DMD 230 [place] [address] Social History Tobacco Use Types Packs/Day Years [...] Description 12/01/2024 11:00 AM EDT Clinical Support [facility] [address] [place] [address] Kassy Ramsey RN 505 [place] [address] 12/15/2024 9:15 AM EDT Office Visit [facility] [address] [place] [address] Nupur Weir ANP 230 [place] [address] 09/28/2025 9:30 AM EST Medication Management [facility] 230 [place] [address] Fay Leigh, [place] 230 [place] [address] documented as of this encounter Visit Diagnoses Not on filedocumented in this encounter Care Teams Real Estate Inspector Relationship Specialty Start Date End Date Nupur Weir ANP [address] [place] [address] PCP - General Family Medicine 01/16/20 documented as of this encounter
--- OUTSIDE RECORDS SUMMARY | 2024-11-23 12:54 | XMS_ITS | Encounter Summary ---
Author Organization [employer] Address [address] 7t [place] [address] Care Team Providers Care Acting Instructor Name Role Phone Weir Nupur RENAE Primary Care Provider [phone] Reason for Visit * Reason Comments Med Refill Encounter Details Date Type Department Care Team ([facility] st Contact Info) Description 03/22/[address] [facility] MEDICINE 230 [place] [address] Marcella Colindres MD 230 [place] [address] Acute pyelonephritis Social History Tobacco Use Types Packs/Day Years [...] Description 12/01/2024 11:00 AM EDT Clinical Support [address] [address] Kassy Ramsey, RN 505 [place] [address] 12/15/2024 9:15 AM EDT Office Visit [address] [address] Nupur Weir ANP [address] [place] [address] 09/28/2025 9:30 AM EST Medication Management [address] [address] Fay Leigh PharmD [address] [place] [address] documented as of this encounter Visit Diagnoses Diagnosis Acute pyelonephritis 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
--- OUTSIDE RECORDS SUMMARY | 2024-11-23 12:54 | XMS_ITS | Encounter Summary ---
Author Organization [employer] [facility] Address [address] [place] [address] 7 [place] [address] Care Team Providers Care Silk Soaker Name Role Phone Nupur Weir Primary Care Provider [phone] Encounter Details Date Type Department Care Team (Late st Contact Info) Description 07/30/2022 Abstract [facility] ADULT DENTAL [address] [place] [address] Dental, Provider, DDS Social History Tobacco Use [...] Description 12/01/2024 11:00 AM EDT Clinical Support [facility] MEDICINE [address] [place] [address] Kassy Ramsey RN [address] [place] [address] 12/15/2024 9:15 AM EDT Office Visit [facility] [address] [place] [address] Nupur Weir ANP [address] [place] [address] 09/28/2025 9:30 AM EST Medication Management [facility] [address] [place] [address] Fay Leigh, MayoD [address] [place] [address] documented as of this encounter Procedures Procedure Name Priority Date/Time Associated Diagnosis Comments 32 MO COMPOSITE FILLING Routine 07/30/2022 12:00 AM EST 28 O COMPOSITE FILLING Routine 07/30/2022 12:00 AM EST 21 O COMPOSITE FILLING Routine 07/30/2022 12:00 AM EST 6 DL COMPOSITE FILLING Routine 07/30/2022 12:00 AM EST 8 DL COMPOSITE FILLING Routine 07/30/2022 12:00 AM EST 15 MOL AMALGAM FILLING Routine 07/30/2022 12:00 AM EST 14 MODL AMALGAM FILLING Routine 07/30/2022 12:00 AM EST 12 DO AMALGAM FILLING Routine 07/30/2022 12:00 AM EST 5 MOD AMALGAM FILLING Routine 07/30/2022 12:00 AM EST 1 O AMALGAM FILLING Routine 07/30/2022 12:00 AM EST documented in this encounter Visit Diagnoses Not on filedocumented in this encounter Care Teams Silk Soaker Relationship Specialty Start Date End Date Nupur Weir ANP [address] [place] [address] PCP - General Family Medicine 01/16/20 documented as of this encounter
== END 2024-11-23 10:35 | disposition home or self-care (01) ==
LOC: HO.HWS 10:07
PROVIDERS: PCP Nurse Practitioner Primary Care; Visit Provider Obstetrics & Gynecology
DX: Z01.419 Encounter for gynecological examination (general) (routine) without abnormal findings (principal)
CPT/HCPCS: 99396; 99459

== ENCOUNTER → 2024-11-23 10:07 | Outpatient (BNVA) | payer MEDICAID, SELFPAY | PROVIDERS: PCP Nurse Practitioner Primary Care; Visit Provider Obstetrics & Gynecology | DX: Z01.419 Encounter for gynecological examination (general) (routine) without abnormal findings (principal) | CPT/HCPCS: 99396; 99459 ==

== ENCOUNTER 2024-12-07 10:04 | Outpatient (REF) | payer MEDICAID, SELFPAY ==
--- OUTSIDE RECORDS SUMMARY | 2024-12-07 11:44 | XMS_ITS | Encounter Summary ---
Author Organization [employer] [facility] Address [address] [place] [address] 7t [place] [address] Care Team Providers Care Dry Cell Tester Name Role Phone Nupur Weir Primary Care Provider [phone] Reason for Visit * Reason Onset Date Comments Med Refill 05/14/2023 Encounter Details Date Type Department Care Team ([facility] st Contact Info) Description 05/14/2023 Telephone [facility] MEDICINE 230 [place] [address] Nupur Weir ANP [address] [place] [address] Med Refill Social History Tobacco Use Types [...] Care Team (Late st Contact Info) Description 12/15/2024 9:15 AM EDT Office Visit [address] [address] Nupur Weir ANP [address] [place] [address] 02/06/2025 9:45 AM EDT Office Visit [address] [address] 09/28/2025 9:30 AM EST Medication Management [address] [address] Fay Leigh, Elba [address] [place] [address] documented as of this encounter Visit Diagnoses Not on filedocumented in this encounter Care Teams Dry Cell Tester Relationship Specialty Start Date End Date Nupur Weir ANP [address] [place] [address] PCP - General Family Medicine 01/16/20 documented as of this encounter
--- OUTSIDE RECORDS SUMMARY | 2024-12-07 11:44 | XMS_ITS | Encounter Summary ---
Author Organization [employer] Address [address] 7t [place] [address] Care Team Providers Care Fashion Artist Name Role Phone Nupur Weir Primary Care Provider [phone] Reason for Visit * Reason Onset Date Comments Medication Question 12/01/2024 Encounter Details Date Type Department Care Team ([facility] st Contact Info) Description 12/01/2024 Telephone [facility] MEDICINE 230 [place] [address] Nupur Weir ANP 230 [place] [address] Medication Question Social History Tobacco Use Types Packs/Day Years [...] encounter Miscellaneous Notes * Telephone Encounter - Berkley Hinkle RN - 12/02/2024 11:19 AM EDT Telephone call placed to pt regarding below message. Advised to drink lots of water this and come in Wednesday for repeat urine Cx to make sure we Rx correct Abx for her infection. Pt agreeable,states will come Wednesday and denied having any other questions or concerns at this time. Recommend repeat urine culture given persistent symptoms despite taking antibiotics as prescribed.I believe these were prescribed at an outside provider and the last urine culture here shows group B strep which should have been susceptible I believe to amoxicillin. Please ask Kacy to repeat her urine culture at her earliest convenience and drink lots and lots of water this weekend. * Telephone Encounter - Luh Carcamo RN - 12/01/2024 2:44 PM EDT Telephone call returned to pt. Pt states she took full 7 days of antibiotics (amoxicillin) for acute cystitis but she says she finished the abx 2 days ago and is still having burning with urination. Denies other symptoms. Reports drinking a lot of water. She said that PCP advised her to call backif symptoms unresolved because may change medication. Advised her will send message to PCP but as it is Wednesday, reviewed [facility] hours, Wednesday hours, and warning signs and symptoms for when to seek medical care. Pt verbalized understanding. * Telephone Encounter - Diane Cohen - 12/01/2024 11:08 AM EDT Pt walked in requesting another medication due to urine burning pt states pcp sent a medication butmedication is not working , pt states the burning is getting worse. documented in this encounter Plan of Treatment Upcoming Encounters Date Type Department Care Team (Late st Contact Info) Description 12/15/2024 9:15 AM EDT Office Visit [address] [address] Nupur Weir ANP [address] [place] [address] 02/06/2025 9:45 AM EDT Office Visit [address] [address] 09/28/2025 9:30 AM EST Medication Management [address] [address] Fay Leigh, PharmD [address] [place] [address] documented as of this encounter Visit Diagnoses Not on filedocumented in this encounter Care Teams Fashion Artist Relationship Specialty Start Date End Date Nupur Weir ANP [address] [place] [address] PCP - General Family Medicine 01/16/20 documented as of this encounter
--- OUTSIDE RECORDS SUMMARY | 2024-12-07 11:44 | XMS_ITS | Encounter Summary ---
Author Organization [employer] Address [address] 7t [place] [address] Care Team Providers Care Sales Route Driver Helper Name Role Phone Nupur Weir Primary Care Provider [phone] Reason for Visit * Reason Comments Med Refill Encounter Details Date Type Department Care Team ([facility] st Contact Info) Description 02/11/2024 Refill [facility] MEDICINE 230 [place] [address] Nupur Weir ANP [address] [place] [address] Social History Tobacco Use Types Packs/Day Years [...] Description 12/15/2024 9:15 AM EDT Office Visit [address] [address] Nupur Weir ANP [address] [place] [address] 02/06/2025 9:45 AM EDT Office Visit [address] [address] 09/28/2025 9:30 AM EST Medication Management [address] [address] Fay Leigh, PharmD [address] [place] [address] documented as of this encounter Visit Diagnoses Not on filedocumented in this encounter Care Teams Sales Route Driver Helper Relationship Specialty Start Date End Date Nupur Weir ANP [address] [place] [address] PCP - General Family Medicine 01/16/20 documented as of this encounter
--- OUTSIDE RECORDS SUMMARY | 2024-12-07 11:44 | XMS_ITS | Encounter Summary ---
Author Organization [employer] Address [address] [place] [address] 7t [place] [address] Care Team Providers Care Practice Specialist Name Role Phone Nupur Weir Primary Care Provider [phone] Reason for Visit * Reason Comments Med Refill Encounter Details Date Type Department Care Team (Late st Contact Info) Description 01/09/2023 Refill [facility] MEDICINE 230 [place] [address] Nupur Weir ANP [address] [place] [address] Arthralgia, unspecified joint; Other specified hypothyroidism Social [...] Description 12/15/2024 9:15 AM EDT Office Visit [address] [address] Nupur Weir ANP [address] [place] [address] 02/06/2025 9:45 AM EDT Office Visit [address] [address] 09/28/2025 9:30 AM EST Medication Management [address] [address] Fay Leigh, MayoD [address] [place] [address] documented as of this encounter Visit Diagnoses Diagnosis Arthralgia, unspecified joint Other specified hypothyroidism documented in this encounter Care Teams Practice Specialist Relationship Specialty Start Date End Date Nupur Weir ANP [address] [place] [address] PCP - General Family Medicine 01/16/20 documented as of this encounter
--- OUTSIDE RECORDS SUMMARY | 2024-12-07 11:44 | XMS_ITS | Encounter Summary ---
Author Organization [employer] Address [address] 7t [place] [address] Care Team Providers Care Marketing Analytics Manager Name Role Phone Carmella Nupur RENAE Primary Care Provider [phone] Reason for Visit * Reason Comments Med Refill Encounter Details Date Type Department Care Team ([facility] st Contact Info) Description 02/11/2024 Refill [facility] MEDICINE 230 [place] [address] Marcella Colindres MD [address] [place] [address] Gastritis medicamentosa Social History Tobacco Use Types [...] Description 12/15/2024 9:15 AM EDT Office Visit [address] [address] Nupur Weir ANP [address] [place] [address] 02/06/2025 9:45 AM EDT Office Visit [address] [address] 09/28/2025 9:30 AM EST Medication Management [address] [address] Fay Leigh, PharmD [address] [place] [address] documented as of this encounter Visit Diagnoses Diagnosis Gastritis medicamentosa Other specified gastritis without mention of hemorrhage documented in this encounter Care Teams Marketing Analytics Manager Relationship Specialty Start Date End Date Nupur Weir ANP [address] [place] [address] PCP - General Family Medicine 01/16/20 documented as of this encounter
--- OUTSIDE RECORDS SUMMARY | 2024-12-07 11:44 | XMS_ITS | Patient Health Record ---
Author Organization [facility] Address [address] [place] [address] Care Team Providers Care Progress Worker Name Role Phone MICHAEL YANEZ N.P. Primary Care Provider Fidencio Langley Jr Unavailable Allergies Allergen (clinical drug ingredient) Drug/Non Drug Allergy documented on EMR Reaction Allergy Type Onset Date Status fentanyl fentaNYL Unknown Drug Allergy Active Results Component Value Reference Range Notes Pathology Reviewed date:12/31/2023 03:02:56 PM Interpretation: Performing Lab:[facility], [address] [place] [phone] Notes/Report: - -------- Name: Tay Tyler Age/Sex: 58/F : 1965 Unit#: [id number] Attend Dr: Fidencio Vila MD Re12/29/23 Status : [facility] Location: [facility] Disch: - -------- SPEC : [id number] RECD : 12/29/23 STATUS: CIELO PRICE NUM: [id number] ANGELA: 12/29/231338 [facility] DR: Fidencio Vila MD ENTERED: 12/29/23 SP TYPE: Surgical OTHR DR: MICHAEL YANEZ NP ORDERED: HE Stain/3, Gross Micro L4 Diagnosis Colon, sigmoid, biopsy: Colonic mucosa within normal limits. Clinical History Pre-Op Dx: Rectal bleeding Post-Op Dx: Normal colon Microscopic Description Microscopic sections reviewed. Material Received Sigmoid bx's Gross Description Received in formalin labeled ?sigmoid bx's? are 2 marti-pink irregular tissue fragments measuring 0.25 and 0.3 cm, submitted in toto in a cassette labeled A. CEDS Copies To: Fidencio Vila MD [address] [place] [address] [id number] [place] [id number] MICHAEL YANEZ NP [address] [place] [address] [place] [id number] - -------- Signed (signature on file) Messi Anaya MD 12/31/[address] - -------- END OF REPORT Complete Blood Count Auto Rena maddox Reviewed date:07/17/2024 08:00:34 AM Interpretation: Performing Lab:[facility], [address] [place] [phone] Notes/Report: White Blood Count 5.3 4.8-10.8 X10*3/uL Red Blood Count 4.47 4.20-5.50 X10*6/uL Hemoglobin 12.8 12.0-16.0 g/dl Hematocrit 40.0 37.0-47.0 % Mean Corpuscular Volume 89.5 80.0-98.0 fL Mean Corpuscular Hemoglobin 28.6 27.0-33.0 pg Mean Corpuscular HGB Conc 32.0 31.0-35.0 g/dl Red Cell Distribution Width 14.8 11.0-16.0 % Platelet Count 301 160-400 X10*3/uL Mean Platelet Volume 8.7 9.4-12.3 fL Neutrophils Percent Auto 47.7 45-73 % Imm Gran Pct Auto 0.2 0.0-0.4 % Lymphocytes Percent Auto 38.9 20-40 % Monocytes Percent Auto 9.7 2-11 % Eosinophils Percent Auto 2.7 0-4 % Basophils Percent Auto 0.8 0-2 % NRBC Pct Auto 0.0 0.0-0.2 /100WBC Neutrophils Absolute Auto 2.5 2.0-8.3 x10*3/u L Imm Gran Abs Auto 0.01 0.00-0.03 X10*3/uL Lymphocytes Absolute Auto 2.0 1.2-4.9 X10*3/u L Monocytes Absolute Auto 0.5 0.1-1.2 X10*3/uL Eosinophils Absolute Auto 0.1 0.0-0.4 X10*3/u L Basophils Absolute Auto 0.0 0.0-0.2 X10*3/uL NRBC Abs Auto 0.000 0.0-0.012 X10*3/uL Liver Panel Reviewed date:07/17/2024 08:00:27 AM Interpretation: Performing Lab:[facility], [address] [place] [phone] Notes/Report: Bilirubin Total 0.7 0.0-1.0 mg/dL Bilirubin Direct 0.3 0.0-0.5 mg/dL Aspartate Amino Transferase 21 5-31 U/L Alanine Aminotransferase 17 0-31 U/L Total Protein 6.4 6.5-8.0 g/dL Albumin Level 3.7 3.5-5.0 g/dL Alkaline Phosphatase 104 39-117 U/L Lipase Reviewed date:07/17/2024 08:00:21 AM Interpretation: Performing Lab:[facility], [address] [place] [phone] Notes/Report: Lipase 14 8-78 U/L Thyroid Stimulating Hormone Reviewed date:07/17/2024 08:00:15 AM Interpretation: Performing Lab:[facility], [address] [place] [phone] Notes/Report: Thyroid Stimulating Hormone 0.97 0.32-4.0 uIU/mL TSH 3rd Generation ([facility]) Reason For Referral No Information Medications Medication SIG (Take, Route, Frequency, Duration) Notes Start Date End Date Status Vitamin C Active Vitamin B-2 Active Ferrous Sulfate 325 (65 Fe) MG Oral for 90 D509,Unavaila ble Active Levothyroxine Sodium Active hydrOXYzine Pamoate 50 MG TAKE 1 CAPSULE BY MOUTH AT BEDTIME. TAKE 1 CAPSULE 2 TIMES PER DAY NEEDED FOR INCREASED ANXIETY Oral for 30 Active Flovent HFA 110 MCG/ACT INHALE 1 PUFF BY MOUTH TWICE DAILY Inhalation for 60 prn Active Vitamin B12 Active Cyclobenzaprine HCl prn Active Dicyclomine HCl 10 MG 1 tablet Orally 2- 4 times a day 07/14/2024 Active ProAir HFA 8.5gm Act jermain Pantoprazole Sodium 40 MG TAKE 1 TABLET BY MOUTH EVERY DAY for 90 Active Calcium Citrate Acti ve traMADol HCl 50 MG Oral for 7 M2550,Unavail able Active Gabapentin 100 MG TAKE 1 CAPSULE BY MOUTH FOUR TIMES DAILY Diagnosis Unavailable Oral for 30 Active Vitamin D 1000units Active Magnesium Oxide 400 MG TAKE 1 TABLET BY MOUTH DAILY Oral for 90 Active Topiramate 50 MG TAKE 1 TABLET BY MOUTH FOUR TIMES DAILY Oral for 90 Unknown Immunizations Vaccine Route Administration Date Status Comme nts Influenza Unknown 12/14/2018 Refused Influenza Unknown 11/30/2022 Refused Problems Problem Type SNOMED Code ICD Code Onset Dates Problem Status W/U Status Risk Notes Problem 211518076 Colon cancer screening (Z12.11) Active confirmed Problem 32081430 Rectal bleeding (K62.5) Active confirmed Problem 70233368 Epigastric pain (R10.13) Active confirmed Problem Dysphagia (11000384) Dysphagia (R13.10) Active confirmed Problem 044760815 Elevated LFTs (R79.89) Active confirmed Problem 920320575 Gastroesophageal reflux disease without esophagitis (K21.9) Active confirmed Problem 87070260 Dysphagia, unspecified type (R13.10) Active confirmed Vital Signs Blood pressure diastolic 00 mm Hg 07/14/2024 Height 64.5 in 07/14/2024 Blood pressure systolic 00 mm Hg 07/14/2024 Weight 153 lbs 07/14/2024 BMI 25.85 kg/m2 07/14/2024 Encounters Encounter Location Date Provider Diagnosis [facility] Outpatient [address] [place] [phone] 12/29/2023 Fidencio Vila Jr Rectal bleeding K62.5 [facility] [address] [place] [phone] 07/14/2024 Fidencio Vila Jr Abdominal cramping R10.9 [facility] [address] [address] 12/24/2023 Fidencio Vila Jr [facility] [address] [place] [address] [address] 12/31/2023 Fidencio Vila Jr [facility] [address] [address] 07/17/2024 Fidencio Vila Jr Assessments Encounter Date Diagnosis (ICD Code) Assessment Notes Treatment Notes Treatment Clinical Notes Section Notes 12/29/2023 Rectal bleeding (ICD-10 - K62.5) 07/14/2024 Abdominal cramping (ICD-10 - R10.9) Dicyclomine (By mouth) material was printed We discussed her symptoms today. We discussed infectious gastroenteritis. We recommended repeat laboratory testing, and a trial of dicyclomine. It is possible that she has postinfectious IBS exacerbation. We discussed this today. She'll let us know how she's doing a month. Followup in one year. Plan Of Treatment Pending Test Test Name Order Date LIVER PROFILE 06/02/2023 LIVER PROFILE 11/30/2022 LIVER PROFILE 11/11/2022 LIVER PROFILE 07/14/2024 LIPASE 07/14/2024 LIPASE 11/30/2022 LIPASE 11/11/2022 GGT 06/02/2023 TSH (THYROID STIMULATING HORMONE) 2023 IRON + IBC (FE) 06/02/2023 FERRITIN 06/02/2023 CBC w DIFF 07/14/2024 CBC w/o DIFF 11/30/2022 CBC w/o DIFF 11/11/2022 MITOCHONDRIAL AB 06/02/2023 SMOOTH MUSCLE ANTIBODIES 06/02/2023 XR GI SERIES 09/12/2015 US ABD 11/30/2022 Future Test Test Name Order Date COLONOSCOPY 07/08/2012 UPPER GI ENDOSCOPY BALLOOON DILATION OF ESOPH 12/11/2015 COLONOSCOPY 12/11/2015 COLONOSCOPY 06/23/2021 COLONOSCOPY 12/01/2023 Next Appt Details Provider Name:Fidencio haider , 07/11/2025 09:40:00 AM, [address] [facility], [address], [place], [address], Insurance Providers Payer Name Payer Address Payer Phone Subscriber Number Group Number Insured Name Patient Relationship to Insured Coverage Start Date Coverage End Date [facility] [address] [place] [address] [id number] TAY TYLER Self - patient is the insured Medical (General) History Medical History History ICD Code Colonoscopy 01/20, normal including biops ies, ten-year colon recall irritable bowel syndrome gastroesophageal reflux dise ase, EGD 07/20, normal, surgical changes from gastric bypass, biopsies negative for H. pylori elevated cholesterol migraine headaches urinary incontinence anxiety/depression hypertension interstitial cystitis migraines asthma Surgical History Surgery Date(Month/Year) cystoscopy partial bladder denervation tubal ligation appendectomy partial hysterectomy tonsillectomy cancer in uterus x2 [phone] Laparoscopic bypass surgery 11/14 removed two cyst removed fro m right shouder and outer colon =dr. jones
--- OUTSIDE RECORDS SUMMARY | 2024-12-07 11:44 | XMS_ITS | Encounter Summary ---
Author Organization [employer] Address [address] [place] [address] Care Team Providers Care Heavy Truck Mechanic Name Role Phone Nupur Weir Primary Care Provider [phone] Reason for Visit * Reason Onset Date Comments Appointment Request 11/30/2024 Encounter Details Date Type Department Care Team ([facility] st Contact Info) Description 11/30/2024 Telephone [facility] MEDICINE [address] [place] [address] Nupur Weir ANP [address] [place] [address] Appointment Request Social History Tobacco Use Types Packs/Day Years [...] * Telephone Encounter - Chanel Whyte - 11/30/2024 11:07 AM EDT Tc from pt requesting to r/s 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 States has another appt around the same time at sleep medicine and pt informs takes bus and believes will not be able to make it on time. Would like to r/s for Wednesday. documented in this encounter Plan of Treatment Upcoming Encounters Date Type Department Care Team (Late st Contact Info) Description 12/15/2024 9:15 AM EDT Office Visit [facility] MED[facility] [address] [place] [address] Nupur Weir ANP [address] [place] [address] 02/06/2025 9:45 AM EDT Office Visit [facility] [address] [place] [address] 09/28/2025 9:30 AM EST Medication Management [facility] [address] [place] [address] Fay Leigh, Elba [address] [place] [address] documented as of this encounter Visit Diagnoses Not on filedocumented in this encounter Care Teams Heavy Truck Mechanic Relationship Specialty Start Date End Date Nupur Weir ANP [address] [place] [address] PCP - General Family Medicine 01/16/20 documented as of this encounter
--- OUTSIDE RECORDS SUMMARY | 2024-12-07 11:44 | XMS_ITS ---
Author Organization [facility] Address [address] [place] [address] Care Team Providers Care Environmental Economist Name Role Phone MICHAEL YANEZ N.P. Primary Care Provider Fidencio Langley Jr [phone] REASON FOR VISIT labs Encounters Encounter Location Date Provider Diagnosis [facility] [address] [place] [address] 07/17/2024 Fidencio Vila Jr Plan Of Treatment Next Appt Details Provider Name:Fidencio haider Jr, 07/11/2025 09:40:00 AM, [address], [address], [place], [address], Progress Notes * TIFFANIE TYLERADOB: 6 (59 yo F)Acc No.[id number]:07/17/2024 Patient:?TAY TYLER :1965???Age:59 Y???Sex:Female Address:[address] [place] [address] * true * Date:? Generated for Viviane negrete/Shakila/eTransmitting on:?12/07/2024 11:44 AM EDT
--- OUTSIDE RECORDS SUMMARY | 2024-12-07 11:44 | XMS_ITS | Clinical Summary ---
Author Organization [employer] Address [address] [place] [address] 7t [place] [address] Care Team Providers Care Content Management Consultant Name Role Phone Michael Yanez BATOOL Primary Care Provider Allergies Active Allergy Reactions Criticality Noted Date Comments Ondansetron 09/01/2022 Promethazine 04/29/2014 Sumatriptan 10/19/2011 Other reaction(s): tablet only Medications SUMAtriptan Succinate 4 MG/0.5ML solution auto-injectorIndi cations:Migraine with aura and without status migrainosus, not intractable Admin 0.5mL under the skin once as needed for migraine, can repeat once in 1 hour if not effective 1 mL 2 023 Active Spacer/Aero-Holdi ng Chambers (OptiChamber Sylvia-Lg Mask) deviceIndications :Moderate asthma without complication, unspecified whether persistent Use for metered doses inhaler as directed 1 each 023 Active Additional Information Patient not taking.Reported on 05/24/2024 ferrous sulfate (Fe Tabs) 325 (65 Fe) MG EC tabletIndications :Iron deficiency anemia, unspecified iron deficiency anemia type Take 1 tab every other day with vitamin C or juice. Do not crush, chew, or split. 45 tablet 1 024 Active ascorbic acid (Vitamin C) 500 MG tabletIndications :Iron deficiency anemia, unspecified iron deficiency anemia type Take 1 tab every other day with iron supplement (ferrous sulfate) 45 tablet 1 024 Active gabapentin (Neurontin) 100 MG capsuleIndication s:Arthralgia, unspecified joint 1 capsule by mouth 3 times a day 90 capsule 2 Active lidocaine (Lidoderm) 5 % patch APPLY 1 PATCH TOPICALLY TO THE SKIN DAILY. LEAVE ON MOST PAINFUL AREA FOR UP TO 12 HOURS 30 patch 1 Active dicyclomine (Bentyl) 10 MG capsule Take 1 capsule by mouth. 2 to 4 times a day Active dilTIAZem CD (Cardizem CD) 180 MG 24 hr capsule Take 1 capsule by mouth Once per day. Active fluticasone (Flonase) 50 MCG/ACT nasal spray Administer 2 sprays into each nostril Once per day. Active magnesium oxide (Mag-Ox) 400 (240 Mg) MG tablet Take 1 tablet by mouth Once per day. Active pantoprazole (ProtoNix) 40 MG EC tablet Take 1 tablet by mouth Once per day. Active pyridoxine (Vitamin B-6) 100 MG tablet Take 1 tablet by mouth Once per day. Active raloxifene (Evista) 60 MG tablet Take 1 tablet by mouth Once per day. Active solifenacin (VESIcare) 5 MG tablet Take 1 tablet by mouth Once per day. Active topiramate (Topamax) 100 MG tablet Take 1 tablet by mouth 2 times daily. Active senna-docusate (Stimulant Laxative) 8.6-50 MG tabletIndications :Constipation, unspecified constipation type TAKE 2 TABLETS BY MOUTH DAILY NEEDED FOR CONSTIPATION 180 tablet 1 Active levothyroxine (Synthroid, Levoxyl) 25 MCG tabletIndications :Other specified hypothyroidism TAKE 1 TABLET BY MOUTH EVERY DAY BEFORE BREAKFAST 90 tablet 1 Active losartan (Cozaar) 50 MG tabletIndications :Primary hypertension TAKE 1 TABLET(50 MG) BY MOUTH IN THE MORNING 90 tablet 1 024 Active clotrimazole (Lotrimin) 1 % creamIndications: Intertrigo Apply twice daily for 14-28d to navel area 30 g Active Cholecalciferol (Vitamin D3) 125 MCG (5000 UT) chewable tablet Chew 1 tablet Once per day. otc Active Mometasone Furoate (Asmanex HFA) 100 MCG/ACT aerosol INHALE 1 PUFF BY MOUTH EVERY 12 HOURS 13 g 1 025 Active polyethylene glycol, PEG, 3350 (MiraLax) 17 GM/SCOOP powderIndications :Constipation, unspecified constipation type Take 17 g by mouth Once daily as needed (constipation). 510 g 025 Active polycarbophil (FiberCon) 625 MG tabletIndications :Constipation, unspecified constipation type Take 1 tablet (625 mg) by mouth Once per day. 90 tablet 3 025 2025 Active hydrocortisone (Anusol-HC) 2.5 % rectal creamIndications: Hemorrhoids, unspecified hemorrhoid type INSERT INTO THE RECTUM TWICE A DAY FOR 7 DAYS 28 g 1 025 Active albuterol (Ventolin HFA) 108 (90 Base) MCG/ACT inhaler INHALE 2 PUFFS BY MOUTH EVERY 4 HOURS NEEDED 18 g 1 025 Active hydrocortisone (Anusol-HC) 2.5 % rectal creamIndications: Hemorrhoids, unspecified hemorrhoid type Insert into the rectum 2 times daily. For 7 days 28 g 1 025 2024 Discontinued(R eorder (will not trigger notification to Pharmacy)) albuterol (Ventolin HFA) 108 (90 Base) MCG/ACT inhaler INHALE 2 PUFFS BY MOUTH EVERY 4 HOURS IF NEEDED 18 g 1 025 2024 Discontinued amoxicillin (Amoxil) 500 MG capsuleIndication s:Acute cystitis without hematuria Take 1 capsule (500 mg) by mouth every 8 (eight) hours for 7 days. 21 capsule 025 2024 traMADol (Ultram) 50 MG tabletIndications :Low back pain at multiple sites Take 1 tablet (50 mg) by mouth every 8 (eight) hours if needed for severe pain for up to 7 days. 21 tablet 025 2024 Active Problems Problem Noted Date Diagnosed Date Long-term current use of opiate analgesic 2024 Constipation 08/25/2024 Dental calculus 05/08/2024 Missing teeth, [...] Encounters Date Type Department Care Team Description 12/01/2024 11:30 AM EDT Clinical Support [address] [address] Kassy Ramsey, ILENE Low back pain at multiple sites (Primary Dx); Long-term current use of opiate analgesic 12/01/2024 Orders Only [facility] [address] [place] [address] [place] [id number] Michael Yanez ANP Dysuria (Primary Dx) 12/01/2024 Telephone [facility] [address] [place] [address] Michael Yanez ANP Medication Question 12/01/2024 Travel 11/30/2024 Telephone [facility] ADULT DENTAL [address] [place] [address] Diego Poseyaris rs no show appt 11/30/2024 Telephone [facility] MED & PEDS [address] [place] [address] Kassy Ramsey RN 11/30/2024 Telephone [facility] [address] [place] [phone] Michael Yanez ANP Appointment Request 11/30/2024 Refill [facility] [address] [place] [address] Michael Yanez ANP 11/24/2024 Refill [facility] [address] [place] [address] Michael Yanez ANP Hemorrhoids, unspecified hemorrhoid type 11/24/2024 Refill [facility] [address] [place] [address] [place] [address] Michael Yanez ANP Low back pain at multiple sites (Primary Dx) 11/16/2024 2:15 PM EDT Office Visit [facility] [place] [address] Michael Yanez ANP Low back pain at multiple sites (Primary Dx) 11/16/2024 Orders Only [facility] [address] [place] [address] [place] [address] Michael Yanez ANP Constipation, unspecified constipation type (Primary Dx) 11/16/2024 Orders Only [facility] [address] [place] [address] [place] [address] Michael Yanez ANP Acute cystitis without hematuria (Primary Dx) 11/16/2024 Travel 11/10/2024 Telephone [facility] [address] [place] [address] Michael Yanez ANP Referral 11/10/2024 Population Health Risk Score Community Care [facility] ([facility] Department [address] [place] [phone] Provider, Population Health Generic 11/07/2024 Refill [facility] [address] [place] [address] Michael Yanez ANP Primary hypertension; Iron deficiency anemia, unspecified iron deficiency anemia type 10/23/2024 Travel 10/23/2024 Refill [facility] [address] [place] [address] Michael Yanez ANP Arthralgia, unspecified joint (Primary Dx) 10/23/2024 Refill [facility] [address] [place] [address] Michael Yanez ANP 10/04/2024 Telephone [facility] [address] [place] [address] Renee Law MA november (Called pt to book appt ,pt agreed to come 12/15/24.) 09/29/2024 Telephone [facility] [address] [place] [address] Mary Lou Obrien, Elba 09/29/2024 Travel 09/21/2024 Refill [facility] [address] [place] [address] Michael Yanez ANP Arthralgia, unspecified joint (Primary Dx) 09/21/2024 Refill [facility] [address] [place] [address] Michael Yanez ANP 09/15/2024 11:00 AM EST Office Visit [facility] [address] [place] [address] Michael Yanez ANP Hemorrhoids, unspecified hemorrhoid type (Primary Dx); Intertrigo; Dysuria; Vaginal discharge; Right ear pain; Obstructive sleep apnea 09/15/2024 Orders Only [facility] [address] [place] [address] Michael Yanez ANP 09/15/2024 Travel from Last 3 Months Immunizations Name [...] Description 12/15/2024 9:15 AM EDT Office Visit [facility] [address] [place] [address] Michael Yanez ANP [address] [place] [address] 02/06/2025 9:45 AM EDT Office Visit [facility] [address] [place] [address] 09/28/2025 9:30 AM EST Medication Management [facility] [address] [place] [address] Fay Leigh, PharmD [address] [place] [address] Health Maintenance Due Date Last Done Comments [...] Procedure Name Priority Date/Time Associated Diagnosis Comments POCT MERY-14 URINE DRUG SCREEN Routine 12/01/2024 11:09 AM EDT Long-term current use of opiate analgesic Low back pain at multiple sites CULTURE, URINE, ROUTINE Routine 09/15/2024 5:27 PM EST POCT URINALYSIS DIPSTICK Routine 09/15/2024 12:05 PM EST Dysuria URINALYSIS, COMPLETE, WITH REFLEX TO CULTURE Routine 09/15/2024 11:58 AM EST Dysuria BACTERIAL VAGINOSIS PANEL Routine 09/15/2024 12:00 AM EST Vaginal discharge LIPID PANEL, STANDARD Routine 08/25/2024 10:00 AM [...] Recently Relevant to Health Maintenance Results * POCT MERY-14 Urine Drug Screen (12/01/2024 11:09 AM EDT) Urine Urine specimen obtained by clean catch procedure / Unknown 12/01/2024 11:09 AM EDT Narrative Kassy Ramsey RN - 12/01/2024 11:09 AM EDT negative AMP, BAR, BUP, BZO, ADOLFO, FTY, MDMA, MET, MOP, MTD, OXY, PCP, TCA, THC. .UTOX cup Lot#[id number] Exp. 04/18/26 Internal Pass Control us Michael RENAE POINT OF CARE TEST ENTER/EDIT OR DERABLES Final Result * Culture, Urine, Routine (09/15/2024 5:27 PM EST) Urine Urine specimen obtained by clean catch procedure / Unknown 09/15/2024 5:27 PM EST 09/15/2024 5:27 PM EST Comment:UACC Narrative [facility] - 09/16/2024 1:25 PM EST Strep agalactiae (Grp B) Quant > 100,000 cfu/mL Susc N/A Susceptibility not routinely performed on this isolate. Specimen Source: Urine clean catch us Michael RENAE LAB MICROBIOLOGY - GENERAL ORDER MARGI Final Result [facility] [address] [place] [phone] * (ABNORMAL) POCT Urinalysis (09/15/2024 12:05 [...] Date Urine 09/15/2024 12:0 5 PM EST [facility] POINT OF CARE TEST ENTER/EDIT OR DERABLES Final Result * (ABNORMAL) Urinalysis, Complete, with Reflex to Culture (09/15/2024 11:58 AM EST) Color Urine Yellow [facility] Appearance Urine Turbid [facility] PH 7.0 5.0 - 9.0 [facility] Glucose Urine UA Negative Negative mg/dL [facility] Urine Blood Negative Negative [facility] Specific [place] - Urine 1.020 1.005 - 1.025 [facility] Urine Protein Negative Neg-Trace mg/dL [facility] Urine Ketones Negative Negative mg/dL [facility] Nitrite Urine Negative Negative [facility] Leukocyte Esterase Urine Moderate (2+)(A) Negative [facility] RBC Urine 0-2 0 - 2 /HPF [facility] Urine WBC 6-10 0 - 5 /HPF [facility] Urine Squamous Epithelial Cell 6-10 0 - 2 /HPF [facility] TRANSITIONAL (EPITHELIAL) CELLS (#/HPF) IN URINE Present [facility] CALCIUM OXALATE CRYSTAL, UR Present [facility] Urine Bacteria 1+ None Seen [facility] Hyaline Casts, Urine 0-2 0 - 2 /LPF [facility] Urine 09/15/2024 11:5 8 AM EST 09/15/2024 4:10 PM EST Narrative [facility] - 09/15/2024 5:19 PM EST Urine, Clean Catch Michael Yanez [facility] URINE ORDERABLES Final Resul t Performing Organization Address [facility] Co de Phone Number [facility] [address] [place] [phone] * Bacterial Vaginosis Panel (09/15/2024 12:00 AM EST) TRICHOMONAS VAGINALIS DETECTION BY PCR NOT DETECTED Not Detect [facility] BACTERIAL VAGINOSIS DETECTION BY PCR NEGATIVE Negative [facility] Comment:The BV organism targ ets of [...] DETECTION BY PCR NOT DETECTED Not Detect [facility] Rhonda glab krusei PCR NOT DETECTED Not Detect [facility] Swab Vaginal structure / Unknown 09/15/2024 09/15/2024 us Michael RENAE LAB MICROBIOLOGY - GENERAL ORDER MARGI Final Result Performing Organization Address City/[facility]/ZIP Co de Phone Number [facility] [address] [place] [phone] * (ABNORMAL) Lipid Panel, Standard (08/25/2024 10:00 AM EST) Triglycerides 61 <150 mg/dL [facility] Comment:Desirable Triglyceri de: less than 150 mg/dLBorderline High Triglyceride 150-199 mg/dLHigh Triglyceride: 200-499 mg/dLVery High Triglyceride: greater than or equal to 5OO mg/dL Cholesterol 173 <200 mg/dL [facility] Comment:Desirable Cholestero l: less than 200 mg/dLBorderline High Cholesterol: 200-239 mg/dLHigh Cholesterol: greater than 239 mg/dL LDL Cholesterol Calculated 105(H) <100 mg/dL [facility] Comment:Desirable LDL: less than 100 mg/dLNear Optimal/Above Optimal LDL: 110- 129 mg/dLBorderline High LDL: 130-159 mg/dLHigh LDL: 160-189 mg/dLVery High LDL: greater than or equal to 190 mg/dL HDL Cholesterol 56 >40 mg/dL [facility] Comment:Desirable HDL: great er than 40 mg/dL Note: This HDL assay may give artificially low results in patients with liver disease. 08/25/2024 10:0 0 AM EST 08/25/2024 11:37 AM EST [facility] LAB BLOOD ORDERABLES Final Resul t [facility] [address] [place] [phone] * HIV-1/2 Antigen and Antibodies, Fourth Generation, with Reflexes (01/04/2024 9:49 AM EDT) HIV AB/AG Nonreactive Nonreactive [facility] Comment:HIV-1 p24 Ag and/or HIV-1/HIV-2 Ab not detected.A test result that is nonreactive does not exclude thepossibility of exposure to or infection with HIV-1 and/orHIV-2. Nonreactive results in this assay for individualswith prior exposure to HIV-1 and/or HIV-2 may be due toantigen and antibody levels that are below the limit ofdetection of this assay.The Ultora HIV Ag/Ab Combo assay result andsupplemental assay results should be interpreted inconjunction with the patient's clinical presentation,history and other laboratory results. If the results areinconsistent with clinical evidence, additional testing issuggested to confirm the result. Blood Venous blood specimen / Unknown 01/04/2024 9:49 AM EDT 01/04/2024 11:50 AM EDT us Michael Yanez ANP LAB BLOOD ORDERABLES Final Resul t [facility] [address] [place] [phone] * BI Mammogram Screening Tomosynthesis Bilateral (12/07/2023 9:05 AM EDT) Anatomical Region Laterality Modality Breast Bilateral Mammography 12/07/2023 9:05 AM EDT Narrative 12/13/2023 5:28 AM EDT ? [facility] ? [address] ?[place] [address] ? Mammography Report ? Signed ? Patient: Laura Graham ?MR#: [id number] ?? 27 ? : 1965 ?Acct:[id number] ? Age/Sex: 58 / F ?ADM Date: 12/07/23 ? Loc: HO.MAMMO ? Attending Dr: Michael Yanez FILEMAKER DEVELOPER ? Ordering Physician: Alex Machuca MD ?Results: 1Negativ ?? e ? Date of Service: 12/07/23 ?Follow Up: 1 Year From Orig ?? inal Mammogram ? Procedure(s): MM tomosynthesis screening BI ?? Accession Number(s): [id number] ? cc: MICHAEL YANEZ NP; Alex Machuca [...] Bebe Hagan MD in OV> ? 12/13/23 0524 ? DD/ 0905 ? TD/TT: ? Computer Technician: ? Procedure Note Jayda, Image - 12/13/2023 [facility] [address] [place] [address] Dr. [place], [place] [address] Mammography Report Signed Patient: Aleksandar Graham#: [id number] 27 : 1965Acct:[id number] Age/Sex: 58 / FADM Date: 12/07/23 Loc: FOREST Attending Dr: Michael Yanez FILEMAKER DEVELOPER Ordering Physician: Alex Machuca MDResults: 1Negativ e Date of Service: 12/07/23Follow Up: 1 Year From Orig ina Mammogram Procedure(s): MM tomosynthesis screening BI Accession Number(s): [id number] cc: MICHAEL YANEZ NP; Alex Machuca MD [...] Bebe Hagan MD in OV> 12/13/23523 DD/ 0905 TD/TT: Computer Technician: us [facility] External Provider IMG BI PROCEDURES Final Result * Hepatitis C Ab (09/09/2022 10:23 AM EST) Hepatitis C Antibody Nonreactive Nonreactive [facility] Comment:Antibodies to HCV no t detected; does not exclude early acuteHCV infection. 09/09/2022 10:2 3 AM EST 09/09/2022 10:23 AM EST [facility] External Provider LAB BLO OD ORDERABLES Final Result [facility] [address] [place] [phone] * Hm Colonoscopy (07/08/2021 12:15 PM EST) Colonoscopy Normal Normal Fidencio Vila MD HEALTH MAINTENANCE Edited Re sult - Final from Last 3 Months or Most Recently Relevant to Health Maintenance [place] [facility] MEDICAID STAND ADULT Care Teams Content Management Consultant Relationship Specialty Start Date End Date Michael Yanez ANP [address] [place] [phone] PCP - General Family Medicine 01/16/20
--- OUTSIDE RECORDS SUMMARY | 2024-12-07 11:44 | XMS_ITS | Encounter Summary ---
Author Organization [employer] Address [address] [place] [address] Care Team Providers Care Weight Loss Sales Consultant Name Role Phone Nupur Weir Primary Care Provider [phone] Reason for Visit * Reason Onset Date Comments Med Refill 07/26/2024 Encounter Details Date Type Department Care Team ([facility] st Contact Info) Description 07/26/2024 Telephone [facility] [address] [place] [address] Nupur Weir ANP [address] [place] [address] Med Refill Social History Tobacco Use Types [...] 50 MG tablet To be sent to: [id number] [place], [place] - [address] [place] [address] AT [facility] documented in this encounter Plan of Treatment Upcoming Encounters Date Type Department Care Team (Late st Contact Info) Description 12/15/2024 9:15 AM EDT Office Visit [facility] [address] [place] [address] Nupur Weir, ANP [address] [place] [address] 02/06/2025 9:45 AM EDT Office Visit [facility] [address] [place] [address] 09/28/2025 9:30 AM EST Medication Management [facility] [address] [place] [address] Fay Leigh, [place] [address] [place] [address] documented as of this encounter Visit Diagnoses Not on filedocumented in this encounter Care Teams Weight Loss Sales Consultant Relationship Specialty Start Date End Date Nupur Weir ANP [address] [place] [address] PCP - General Family Medicine 01/16/20 documented as of this encounter
--- OUTSIDE RECORDS SUMMARY | 2024-12-07 11:44 | XMS_ITS | Encounter Summary ---
Author Organization [employer] Address [address] [place] [address] Care Team Providers Care Leather Tooler Name Role Phone Nupur Weir Primary Care Provider [phone] Reason for Visit * Reason Comments Med Refill Encounter Details Date Type Department Care Team ([facility] st Contact Info) Description 11/07/2024 Refill [facility] MED & PEDS [address] [place] [address] Nupur Weir ANP [address] [place] [address] Primary hypertension; Iron deficiency anemia, unspecified iron [...] the past 12 months, has t he giddy, [employer], oil or water [employer] threatened to shut off services in your [...] Description 12/15/2024 9:15 AM EDT Office Visit [address] [address] Nupur Weir ANP [address] [place] [address] 02/06/2025 9:45 AM EDT Office Visit [address] [address] 09/28/2025 9:30 AM EST Medication Management [address] [address] Fay Leigh, MayoD [address] [place] [address] documented as of this encounter Visit Diagnoses Diagnosis Primary hypertension Unspecified essential hypertension Iron deficiency anemia, unspecified iron deficiency anemia type documented in this encounter Care Teams Leather Tooler Relationship Specialty Start Date End Date Nupur Weir ANP [address] [place] [phone] PCP - General Family Medicine 01/16/20 documented as of this encounter
--- OUTSIDE RECORDS SUMMARY | 2024-12-07 11:44 | XMS_ITS ---
Author Organization [facility] Address [address] [place] [address] Care Team Providers Care Nursery Helper Name Role Phone MICHAEL YANEZ N.P. Primary Care Provider Tiara Vila Jr, Fidencio Rivera [phone] REASON FOR VISIT pathology Encounters Encounter Location Date Provider Diagnosis [facility] [address] [place] [address] 12/31/2023 Fidencio Vila Jr Plan Of Treatment Next Appt Details Provider Name:Fidencio haider Jr, 07/11/2025 09:40:00 AM, [address], [address], [place], [address], Progress Notes * TIFFANIE TYLERADOB: 6 (58 yo F)Acc No.[id number]:12/31/2023 Patient:?TAY TYLER :1965???Age:58 Y???Sex:Female Address:[address] [place] [address] * true * Date:? Generated for Viviane negrete/Shakila/eTransmitting on:?12/07/2024 11:44 AM EDT
--- OUTSIDE RECORDS SUMMARY | 2024-12-07 11:44 | XMS_ITS | Encounter Summary ---
Author Organization [employer] Address [address] [place] [address] Care Team Providers Care Cone Marker Name Role Phone Nupur Weir Primary Care Provider [phone] Reason for Visit * Reason Comments Med Refill Encounter Details Date Type Department Care Team ([facility] st Contact Info) Description 09/19/2023 Refill [facility] [address] [place] [address] Nupur Weir ANP [address] [place] [address] Constipation, unspecified constipation type Social History Tobacco [...] Description 12/15/2024 9:15 AM EDT Office Visit [facility] [address] [place] [address] Nupur Weir ANP [address] [place] [address] 02/06/2025 9:45 AM EDT Office Visit [address] [address] 09/28/2025 9:30 AM EST Medication Management [address] [address] Fay Leigh, PharmD [address] [place] [phone] documented as of this encounter Visit Diagnoses Diagnosis Constipation, unspecified constipation type documented in this encounter Care Teams Cone Marker Relationship Specialty Start Date End Date Nupur Weir ANP [address] [place] [address] PCP - General Family Medicine 01/16/20 documented as of this encounter
--- OUTSIDE RECORDS SUMMARY | 2024-12-07 11:44 | XMS_ITS | Encounter Summary ---
Author Organization [employer] Address [address] [facility] [address] 7[address] [place] [address] Care Team Providers Care Window Cutter Name Role Phone Nupur Weir Primary Care Provider [phone] Reason for Visit * Reason Onset Date Comments rs no show appt 11/30/2024 Encounter Details Date Type Department Care Team ([facility] st Contact Info) Description 11/30/2024 Telephone [facility] [address] [place] [address] Taty, Laura [address] [place] [address] rs no show appt Social History Tobacco Use Types Packs/Day Years [...] encounter Miscellaneous Notes * Telephone Encounter - Brittney Wiley - 11/30/2024 1:58 PM EDT Patient called in looking to rs no show appt. Patient has been informed there is a waiting period prior to rs a no show visit and office will reach out to katheryn directly to reschedule. Patient understood DR documented in this encounter Plan of Treatment Upcoming Encounters Date Type Department Care Team (Late st Contact Info) Description 12/15/2024 9:15 AM EDT Office Visit [facility] [address] [place] [address] Nupur Weir, ANP [address] [place] [address] 02/06/2025 9:45 AM EDT Office Visit [address] [address] 09/28/2025 9:30 AM EST Medication Management [address] [address] Fay Leigh, MayoD 230 [place] [address] documented as of this encounter Visit Diagnoses Not on filedocumented in this encounter Care Teams Window Cutter Relationship Specialty Start Date End Date Nupur Weir ANP [address] [place] [address] PCP - General Family Medicine 01/16/20 documented as of this encounter
--- OUTSIDE RECORDS SUMMARY | 2024-12-07 11:45 | XMS_ITS ---
Author Organization [facility] Address [address] [place] [address] Care Team Providers Care Back Joiner Name Role Phone MICHAEL YANEZ N.P. Primary Care Provider Fidencio Langley Jr Unavailable [phone] Allergies Allergen (clinical drug ingredient) Drug/Non Drug [...] 07/14/2024 Encounters Encounter Location Date Provider Diagnosis [facility] [address] [place] [address] 07/14/2024 Fidencio Vila Jr Abdominal cramping R10.9 [...] Name:Fidencio haider Jr, 07/11/2025 09:40:00 AM, [address] [facility], [address], [place], [address], Progress Notes * GREG TYLERFRENCHB: 6 (59 yo F)Acc No.[id number]:07/14/2024 Progress Notes Patient:?TAY TYLER Provider:?Fidencio Vila MD :[id number]???Age:59 Y???Sex:Female D ate:07/14/2024 Address:[place] [address], [address] [place] [address] [id number] Pcp:MICHAEL YANEZ N.P. Subjective: * Chief Complaints: [...] Vila MD Date:?1 09/13/2023 Generated for Viviane negrete/Shakila/eTalexsmitting on:?12/07/2024 11:44 AM EDT History and Physical Notes * HPI [...]
--- OUTSIDE RECORDS SUMMARY | 2024-12-07 11:45 | XMS_ITS | Encounter Summary ---
Author Organization [employer] Address [address] [facility] [address] 7t [place] [address] Care Team Providers Care Shield Runner Name Role Phone Nupur Weir Primary Care Provider [phone] Reason for Visit * Reason Onset Date Comments Med Refill 10/01/2023 Encounter Details Date Type Department Care Team ([facility] st Contact Info) Description 10/01/2023 Telephone [facility] 230 [place] [address] Nupur Weir ANP 230 [place] [address] Med Refill Social History Tobacco Use Types [...] Base) MCG/ACT inhaler To be sent to: [id number] [place], [place] [address] [address] [facility] documented in this encounter Plan of Treatment Upcoming Encounters Date Type Department Care Team (Late st Contact Info) Description 12/15/2024 9:15 AM EDT Office Visit [facility] [address] [place] [address] Nupur Weir ANP [address] [place] [address] 02/06/2025 9:45 AM EDT Office Visit [facility] [address] [place] [address] 09/28/2025 9:30 AM EST Medication Management [address] [address] Fay Leigh, MayoD [address] [place] [address] documented as of this encounter Visit Diagnoses Not on filedocumented in this encounter Care Teams Shield Runner Relationship Specialty Start Date End Date Nupur Weir ANP [address] [place] [address] PCP - General Family Medicine 01/16/20 documented as of this encounter
--- OUTSIDE RECORDS SUMMARY | 2024-12-07 11:45 | XMS_ITS | Encounter Summary ---
Author Organization [employer] Address [address] [facility] [address] 7[address] [place] [address] Care Team Providers Care Store Receiver Name Role Phone Nupur Weir Primary Care Provider [phone] Reason for Visit * Reason Comments Med Refill Encounter Details Date Type Department Care Team ([facility] st Contact Info) Description 11/11/2023 Refill [facility] 230 [place] [address] Nupur Weir ANP 230 [place] [address] Social History Tobacco Use Types Packs/Day Years [...] Description 12/15/2024 9:15 AM EDT Office Visit [address] [address] Nupur Weir ANP [address] [place] [address] 02/06/2025 9:45 AM EDT Office Visit [address] [address] 09/28/2025 9:30 AM EST Medication Management [address] [address] Fay Leigh, PharmD [address] [place] [address] documented as of this encounter Visit Diagnoses Not on filedocumented in this encounter Care Teams Store Receiver Relationship Specialty Start Date End Date Nupur Weir ANP [address] [place] [address] PCP - General Family Medicine 01/16/20 documented as of this encounter
--- OUTSIDE RECORDS SUMMARY | 2024-12-07 11:45 | XMS_ITS | Encounter Summary ---
Author Organization [employer] Address [address] [facility] [address] 7t [place] [address] Care Team Providers Care Automotive Sales Professional Name Role Phone Nupur Weir Primary Care Provider [phone] Encounter Details Date Type Department Care Team (Late st Contact Info) Description 04/11/2024 Orders Only [facility] 230 [place] [address] Nupur Weir ANP 230 [place] [address] Social History Tobacco Use Types Packs/Day Years [...] Description 12/15/2024 9:15 AM EDT Office Visit [facility] [address] [place] [address] Nupur Weir ANP [address] [place] [address] 02/06/2025 9:45 AM EDT Office Visit [address] [address] 09/28/2025 9:30 AM EST Medication Management [address] [address] Fay Leigh, PharmD [address] [place] [address] documented as of this encounter Visit Diagnoses Not on filedocumented in this encounter Care Teams Automotive Sales Professional Relationship Specialty Start Date End Date Nupur Weir ANP [address] [place] [address] PCP - General Family Medicine 01/16/20 documented as of this encounter
--- OUTSIDE RECORDS SUMMARY | 2024-12-07 11:45 | XMS_ITS | Encounter Summary ---
Author Organization [employer] [facility] Address [address] [place] [address] 7t [place] [address] Care Team Providers Care Drapery Hanger Name Role Phone Nupur Weir Primary Care Provider [phone] Encounter Details Date Type Department Care Team (Late st Contact Info) Description 07/30/2022 Abstract [facility] ADULT D[facility] [address] [place] [address] Dental, Provider, DDS Social History Tobacco Use [...] Description 12/15/2024 9:15 AM EDT Office Visit [facility] [address] [place] [address] Nupur Weir ANP 230 [place] [address] 02/06/2025 9:45 AM EDT Office Visit [facility] [address] [place] [address] 09/28/2025 9:30 AM EST Medication Management [facility] [address] [place] [address] Fay Leigh, PharmD 230 [place] [address] documented as of this encounter Procedures Procedure [...] on filedocumented in this encounter Care Teams Drapery Hanger Relationship Specialty Start Date End Date Nupur Weir ANP [address] [place] [address] PCP - General Family Medicine 01/16/20 documented as of this encounter
--- OUTSIDE RECORDS SUMMARY | 2024-12-07 11:45 | XMS_ITS | Encounter Summary ---
Author Organization [employer] Address [address] [facility] [address] 7t [place] [address] Care Team Providers Care Pipe Fitter Street Service Name Role Phone Nupur Weir Primary Care Provider [phone] Encounter Details Date Type Department Care Team (Late st Contact Info) Description 07/05/2024 Telephone [facility]ULT D[facility] [address] [place] [address] Yarelis Rosales DDS 230 [place] [address] Social History Tobacco Use Types Packs/Day Years [...] Shameka Simons - 07/05/2024 10:56 AM EST Co doctor flip Patient called she went her pharmacy and her medication was not there. Can we send her prescriptions to her pharmacy thank you . documented in this encounter Plan of Treatment Upcoming Encounters Date Type Department Care Team (Late st Contact Info) Description 12/15/2024 9:15 AM EDT Office Visit [facility] [address] [place] [address] Nupur Weir ANP 230 [place] [address] 02/06/2025 9:45 AM EDT Office Visit [facility] [address] [place] [address] 09/28/2025 9:30 AM EST Medication Management [address] [address] Fay Leigh, PharmD [address] [place] [address] documented as of this encounter Visit Diagnoses Not on filedocumented in this encounter Care Teams Pipe Fitter Street Service Relationship Specialty Start Date End Date Nupur Weir ANP [address] [place] [address] PCP - General Family Medicine 01/16/20 documented as of this encounter
--- OUTSIDE RECORDS SUMMARY | 2024-12-07 11:45 | XMS_ITS | Encounter Summary ---
Author Organization [facility] Address [address] [place] [address] 7 [place] [address] Care Team Providers Care Lens Finisher Name Role Phone Nupur Weir Primary Care Provider Encounter Details Date Type Department Care Team (Late st Contact Info) Description 08/14/2022 Abstract [facility] ADULT D[facility] [address] [place] [address] Angel Lagos DMD 230 [place] [address] Social History Tobacco Use Types Packs/Day Years [...] Description 12/15/2024 9:15 AM EDT Office Visit [facility] [address] [place] [address] Nupur Weir ANP 230 [place] [address] 02/06/2025 9:45 AM EDT Office Visit [facility] [address] [place] [address] 09/28/2025 9:30 AM EST Medication Management [facility] [address] [place] [address] Fay Leigh, MayoD [address] [place] [address] documented as of this encounter Visit Diagnoses Not on filedocumented in this encounter Care Teams Lens Finisher Relationship Specialty Start Date End Date Nupur Weir ANP 230 [place] [address] PCP - General Family Medicine 01/16/20 documented as of this encounter
--- OUTSIDE RECORDS SUMMARY | 2024-12-07 11:45 | XMS_ITS | Encounter Summary ---
Author Organization [employer] Address [address] 7[address] [place] [address] Care Team Providers Care Supply Chain Engineer Name Role Phone Nupur Weir Primary Care Provider [phone] Reason for Visit * Reason Comments Med Refill Encounter Details Date Type Department Care Team ([facility] Contact Info) Description 06/19/2024 Refill [facility] 230 [place] [address] Nupur Weir ANP [address] [place] [address] Other specified hypothyroidism Social History Tobacco Use [...] Description 12/15/2024 9:15 AM EDT Office Visit [facility] [address] [place] [address] Nupur Weir ANP [address] [place] [address] 02/06/2025 9:45 AM EDT Office Visit [address] [address] 09/28/2025 9:30 AM EST Medication Management [address] [address] Fay Leigh, PharmD [address] [place] [address] documented as of this encounter Visit Diagnoses Diagnosis Other specified hypothyroidism documented in this encounter Care Teams Supply Chain Engineer Relationship Specialty Start Date End Date Nupur Weir ANP [address] [place] [address] PCP - General Family Medicine 01/16/20 documented as of this encounter
--- OUTSIDE RECORDS SUMMARY | 2024-12-07 11:45 | XMS_ITS | Encounter Summary ---
Author Organization [employer] Address [address] [facility] [address] 7t [place] [address] Care Team Providers Care Peripheral Edp Equipment Operator Name Role Phone Weir Nupur RENAE Primary Care Provider [phone] Reason for Visit * Reason Comments Med Refill Encounter Details Date Type Department Care Team ([facility] st Contact Info) Description 03/22/2024 Refill [facility] 230 [place] [address] Marcella Colindres MD 230 [place] [address] Acute pyelonephritis Social History Tobacco Use Types [...] Description 12/15/2024 9:15 AM EDT Office Visit [address] [address] Nupur Weir ANP [address] [place] [address] 02/06/2025 9:45 AM EDT Office Visit [address] [address] 09/28/2025 9:30 AM EST Medication Management [address] [address] Fay Leigh, PharmD [address] [place] [address] documented as of this encounter Visit Diagnoses Diagnosis Acute pyelonephritis 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
--- OUTSIDE RECORDS SUMMARY | 2024-12-07 11:45 | XMS_ITS | Encounter Summary ---
Author Organization [facility] Address [address] [place] [address] 7t [place] [address] Care Team Providers Care Assorter Laundry Name Role Phone Nupur Weir Primary Care Provider [phone] Encounter Details Date Type Department Care Team (Latest Contact Info) Description 03/26/2022 Abstract [facility] CONVERSIONS Dental, Provider, DDS Social History Tobacco [...] Description 12/15/2024 9:15 AM EDT Office Visit [facility] MEDICINE [address] [place] [address] Nupur Weir ANP 230 [place] [address] 02/06/2025 9:45 AM EDT Office Visit [facility] MEDICINE [address] [place] [address] 09/28/2025 9:30 AM EST Medication Management [address] [address] Fay Leigh, PharmD 230 [place] [address] documented as of this encounter Visit Diagnoses Not on filedocumented in this encounter Care Teams Assorter Laundry Relationship Specialty Start Date End Date Nupur Weir ANP 230 [place] [address] PCP - General Family Medicine 01/16/20 documented as of this encounter
--- OUTSIDE RECORDS SUMMARY | 2024-12-07 11:45 | XMS_ITS | Encounter Summary ---
Author Organization [employer] Address [address] [facility] [address] 7t [place] [address] Care Team Providers Care Insulation Worker Interior Surface Name Role Phone Nupur Weir Primary Care Provider [phone] Reason for Visit * Reason Comments Med Refill Encounter Details Date Type Department Care Team ([facility] st Contact Info) Description 07/22/2024 Refill [facility] 230 [place] [address] Nupur Weir ANP [address] [place] [address] Social History Tobacco Use Types Packs/Day Years [...] Description 12/15/2024 9:15 AM EDT Office Visit [facility] [address] [place] [address] Nupur Weir ANP [address] [place] [address] 02/06/2025 9:45 AM EDT Office Visit [address] [address] 09/28/2025 9:30 AM EST Medication Management [facility] [address] [place] [address] Fay Leigh, PharmD [address] [place] [address] documented as of this encounter Visit Diagnoses Not on filedocumented in this encounter Care Teams Insulation Worker Interior Surface Relationship Specialty Start Date End Date Nupur Weir ANP [address] [place] [address] PCP - General Family Medicine 01/16/20 documented as of this encounter
[2024-12-07 11:57] LABS: Appearance Urine Cloudy; Color Urine Yellow; Glucose Urine UA Negative (Negative); Leukocyte Esterase Urine Moderate (2+) (Negative); Nitrite Urine Negative (Negative); UMIC TRIGGER UACC YES; Urine Blood Negative (Negative); Urine Ketones Negative (Negative); Urine Protein Negative (Neg-Trace)
[2024-12-07 12:27] LABS: Bacteria Urine Trace (None Seen); Hyaline Casts Urine 0-2 /LPF (0-2); RBC Urine 0-2 /HPF (0-2); Squamous Epithelial Cell Urine 0-2 /HPF (0-2); UACC Culture Trigger YES
== END 2024-12-07 10:05 | disposition home or self-care (01) ==
LOC: HO.HHCL 10:04
PROVIDERS: Nurse Practitioner Family; Visit Provider Nurse Practitioner Primary Care
DX: R30.0 Dysuria (principal)
CPT/HCPCS: 81001; 87086; 87088; 87186

== ENCOUNTER 2024-12-21 10:44 | Outpatient (AMB) | payer MEDICAID, SELFPAY ==
--- NOTE | 2024-12-21 10:50 | A.OFFVIS_ITS ---
Intake Visit Reasons: 2m/followup Intake Note: Patient presents today for follow up on: nephrolithiasis, interstitial cystitis, and recurrent uti Urology Medications: Vitamin B6, Vesicare Blood Thinner: none PVR: 34ml's [employer] Director Required: No Accompanied by: Self / Same As Patient Allergies ondansetron [From ZOFRAN] Allergy (Unknown, Verified 12/21/24 11:04) per H&P sumatriptan [From IMITREX] Allergy (Unknown, Verified 12/21/24 11:04) RASH FROM TABLET NOT INJECTION promethazine [From PHENERGAN] Adverse Reaction (Severe, Verified 12/21/24 11:04) DYSTONIA HPI Comments Details: Laura is a pleasant 59 year old female patient of Dr. Weir. She has a past medical history of goiter, hypercalciuria interstitial cystitis, BV, osteoporosis, and hyperthyroidism. She presents to the office today for follow- up of her nephrolithiasis, recurrent urinary tract infections and pyelonephritis. In discussion with the patient today she reports having followed up with PCP for a sore throat and dysuria at which time she was started on Augmentin however initially recommendations were made for Macrobid. She reports that although she completed Augmentin as prescribed she continues with episodes of dysuria. She discusses feeling UTIs are related to her ongoing issues with constipation. She reports having followed up with her GI provider Dr. Vila and has underwent colonoscopy with normal findings however continues with constipation despite changes to her diet and compliance with MiraLax. In review of patient's chart it appears urine cultures are as follows: 01/18 Strep agalactiae, 09/23 Strep agalactiae (grp B), 12/22 E coli, 12/22 E coli Microgen 01/19 Enterococcus faecalis When asked she reports having completed Augmentin 2 days ago. In office urinalysis results were reviewed with the patient today negative leukocytes negative nitrates however patient continues to report dysuria. Will send for microgen. Patient also with a history of nephrolithiasis renal ultrasound 05/23 noted bilateral kidneys with no lesions or hydronephrosis. Right kidney with 2 echogenic foci in the right kidney consistent with nonobstructing calculi. When asked she does report compliance with vitamin B6 as prescribed. Patient also with a previous history of trialing oxybutynin for episodes of urinary urgency and frequency however PVRs were borderline elevated and therefore were discontinued. We recently trialed low-dose VESIcare however patient unsure if this has been helpful as she had a urinary tract infection. PVR today 34 mL. We discussed importance of following up with GI in relation to constipation. All questions were answered. She otherwise offers no other issues or concerns at this time. History of Present Illness The patient is a 59-year-old female presenting with symptoms suggestive of a urinary tract infection and concurrent constipation issues. Approximately a month ago, she started experiencing symptoms typical of a urinary tract infection as well as a sore throat at which time she followed up with her PCP and she was treated with Augmentin. The course of antibiotics was completed, but the symptoms of UTI have not improved. The patient has been experiencing chronic constipation, exacerbated post-gastric bypass surgery, which has impacted her bowel movements significantly. Despite dietary modifications and the use of MiraLAX and Docusate, her symptoms persist. The patient suffers from hard stools, occasionally accompanied by blood, which raises concern about her current bowel health. In relation to her urinary symptoms, the patient reports burning as a significant feature of her presentation. Despite treatment, there has not been satisfactory improvement in her urinary symptoms. This concern, coupled with persistent constipation, continues to affect her daily health and well-being. Plan The plan for the patient involves refraining from further antibiotic use until the current urinary sample is analyzed via micorgen. Dietary management addressing constipation will continue, with advisory on high fiber intake and fluid consumption. The patient's past use of MiraLAX and Docusate We may consider alternatives based on upcoming evaluations, particularly if her symptoms do not improve. An assessment by a release specialist may be crucial for optimizing the management plan. Pending urine analysis results will guide any necessary adjustment to the treatment strategy. Follow-up will occur post- results to reassess and possibly refine the therapeutic measures. Patient was informed and verbally consented to the use of an ambient scribe for clinic note documentation during this visit. Discussion Notes In this consultation, I discussed with the patient the management of her ongoing symptoms. There is an understanding that the antibiotic course for the urinary tract infection has been completed, yet symptom relief is minimal. The plan involves awaiting results from the urine culture before deciding on any further antibiotic use to ensure targeted treatment should bacterial infection persist. The patient was advised about adjusting her diet further to potentially alleviate constipation while maintaining hydration. Although she has been compliant with dietary improvements and medications like MiraLAX and Docusate, if symptoms remain unresolved, consultation with a release specialist may be necessary. The patient was encouraged to communicate with the specialist about her ongoing symptoms despite previous evaluations indicating a normally appearing colonoscopy. [facility] Medical History Well woman exam Epidermal cyst Migraine HTN (hypertension) IBS (irritable bowel syndrome) GERD (gastroesophageal reflux disease) Chronic interstitial cystitis Sleep apnea Asthma Anemia Hypercholesteremia Depression Anxiety Sacrococcygeal pilonidal cyst Recurrent UTI Goiter Flank pain Dysuria Hypercalciuria Swelling of joint, ankle, right Swelling of right foot Vitamin D deficiency Hypothyroidism Right patella fracture History of secondary hyperparathyroidism Abnormal mammogram Surgical History History of removal of cyst (~05/12/24) History of bladder surgery H/O bilateral salpingo-oophorectomy S/P gastric bypass H/O left breast biopsy H/O: hysterectomy History of bilateral tubal ligation History of appendectomy Family History Mother Uterine cancer Father No problems noted. 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 Sexual orientation: Straight/Heterosexual Gender identity: Female Female Reproductive History Menstrual Age of Menarche: 13 Review of Systems Const All systems reviewed & are unremarkable except as noted in HPI and below Reports as per HPI Eyes Reports no additional complaints ENT Reports no additional complaints Card Reports no additional complaints Resp Reports no additional complaints GI Reports no additional complaints Reports as per HPI Musc Reports as per HPI Neuro Reports no additional complaints Psych Reports anxiety and Reports depression Endo Reports as per HPI Aman/Lymph Reports no additional complaints Aller/Immun Reports no additional complaints Physical Exam Const General: cooperative, healthy appearing, comfortable, no acute distress, well developed, alert and awake Orientation/consciousness: patient oriented x3 Limitations: no limitations HEENT Head: Yes normal to inspection, Yes normocephalic and Yes atraumatic Ears: hearing grossly normal bilaterally Eyes General: appearance normal, both eyes and all related structures Neck Neck: Yes normal visual inspection and Yes trachea midline Chest Chest palpation & inspection: normal inspection of the chest Resp Effort & Inspection: normal respiratory effort and able to speak in complete sentences Cardio Rate: regular rate GI Inspection: Yes normal to inspection General: Yes no CVA tenderness Back/Spine/Pelvis Back: no CVA tenderness Skin General skin exam: no rashes or lesions noted Neuro General: patient oriented x3 Extrem General: Yes normal to inspection Psych Appearance: grossly normal and well kempt Mental Status: mental status grossly normal Speech and movement: Normal speech and movement present and Clear speech present Affect: normal affect Attitude: cooperative Thought process: Normal thought process present Thought content: Normal thought content present Insight: Fair insight present (Psych) Judgement: Fair judgement present (Psych) Office Procedures Post Void Residual Post Residual Void Post Void Residual (PVR): 34 [id number] Void Residual by ultrasound Results AMB Urinalysis, Automated UA Leukoctes 70 Ynes/uL Last Edit by [employer] on 12/21/24 11:07 UA Nitrite Last Edit by [employer] on 12/21/24 11:07 UA Urobilinogen 0.2 mg/dL Last Edit by [employer] on 12/21/24 11:07 UA Protein 0 mg/dL Last Edit by [employer] on 12/21/24 11:07 UA pH 8.0 Last Edit by [employer] on 12/21/24 11:07 UA Blood 0 Christiano/uL Last Edit by [employer] on 12/21/24 11:07 UA Specific [place] 1.010 Last Edit by [employer] on 12/21/24 11:07 UA Ketone Last Edit by [employer] on 12/21/24 11:07 UA Bilirubin 0 mg/dL Last Edit by Lara Della on 12/21/24 11:07 UA Glucose 0 mg/dL Last Edit by Maximusedgaralverto Hull on 12/21/24 11:07 Results Reviewed Results Reviewed: Laboratory Last Values Urine pH (Auto) 8.0 12/21/24 11:06 Specific [place] (Auto) 1.010 12/21/24 11:06 Urine Protein (Auto) 0 mg/dL 12/21/24 11:06 Glucose (UA)(Auto) 0 mg/dL 12/21/24 11:06 Urine Blood (Auto) 0 Christiano/uL 12/21/24 11:06 Urine Bilirubin (Auto) 0 mg/dL 12/21/24 11:06 Urine Urobilinogen (Auto) 0.2 mg/dL 12/21/24 11:06 Leukocyte Esterase (Auto) 70 Ynes/uL 12/21/24 11:06 Assessment & Plan Assessment & Plan (1) Dysuria: Code(s): R30.0 - Dysuria Category: Medical (2) Nephrolithiasis: Code(s): N20.0 - Calculus of kidney Category: Medical Plan In office urinalysis results reviewed with the patient today; will send for microgen testing; will await results for potential treatment PVR 34 mL. We discussed correlation of constipation with recurrent urinary tract infections. Encouraged to call GI specialist for further recommendation of ongoing issues with constipation. Will continue with surveillance monitoring We discussed worsening symptoms. Discussed UTI prevention with D mannose supplement, vitamin-C, increasing fluid intake, behavioral therapy with timed voiding, perineal hygiene and postcoital voiding, and management of constipation with stool softeners and increased fiber intake. Follow-up in 1-3 months with PVR; or sooner with any issues, concerns, and or questions. Orders: Orders AMB Post Void Residual by ultrasound Today R39.9 - Unspecified symptoms and signs involving the genitourinary system AMB Urinalysis Automated Today Z13.9 - Encounter for screening, unspecified Patient Instructions: The patient had an opportunity to ask questions regarding the treatment plan. All questions were answered. Physical exam, labs, and imaging were discussed and reviewed in detail. As well as risks, benefits, and discussion of treatment choices. No major barriers to understanding were identified. The patient expressed understanding and agreement with the above treatment plan. The patient was made aware they should contact our office by phone for worsening of their current condition, the appearance of new symptoms, or with any questions or concerns. Compliance is encouraged with any medications and follow up testing that is ordered. It is a privilege to be allowed the opportunity to participate in? your urological care.? Again, if you have any questions or concerns If you have any questions or concerns please do not hesitate to contact me. The office is [phone]. This note is constructed using voice recognition software. While every effort has been made to ensure accuracy control room operator errors may have been included. Yours sincerely, JEANETH Bhatia Coding Level of Care Code Est Pt Level 4 (60144) Complex EM visit Add On G2211 Diagnoses Dysuria R30.0 Nephrolithiasis N20.0 CPT Codes Post Residual Void - PVR CPT Code: 55623-Ikai Void Residual by ultrasound ([id number])
--- OUTSIDE RECORDS SUMMARY | 2024-12-21 12:34 | XMS_ITS | Encounter Summary ---
Author Organization [employer] Address [address] [place] [address] Care Team Providers Care Production Control Pegboard Clerk Name Role Phone Nupur Weir Primary Care Provider [phone] Reason for Visit * Reason Comments Med Refill Encounter Details Date Type Department Care Team ([facility] st Contact Info) Description 11/07/2024 Refill [facility] [address] [place] [address] Nupur Weir ANP [address] [place] [address] Primary hypertension; Iron deficiency anemia, unspecified iron [...] the past 12 months, has t he [employer], gas, oil or water company threatened to [...] Care Team (Late st Contact Info) Description 02/06/2025 9:45 AM EDT Office Visit [facility] [address] [place] [phone] 09/28/2025 9:30 AM EST Medication Management [facility] [address] [place] [phone] Fay Leigh, MayoD [address] [place] [phone] documented as of this encounter Visit Diagnoses Diagnosis Primary hypertension Unspecified essential hypertension Iron deficiency anemia, unspecified iron deficiency anemia type documented in this encounter Care Teams Production Control Pegboard Clerk Relationship Specialty Start Date End Date Nupur Weir ANP [address] [place] [phone] PCP - General Family Medicine 01/16/20 documented as of this encounter
--- OUTSIDE RECORDS SUMMARY | 2024-12-21 12:34 | XMS_ITS | Encounter Summary ---
Author Organization [employer] Address [address] [place] [address] Care Team Providers Care Drum Dyeing Machine Operator Name Role Phone Nupur Weir Primary Care Provider [phone] Reason for Visit * Reason Onset Date Comments rs no show appt 11/30/2024 Encounter Details Date Type Department Care Team ([facility] st Contact Info) Description 11/30/2024 Telephone [facility] [address] [place] [address] Taty, Laura [address] [place] [address] rs no show appt Social History Tobacco [...] visit and office will reach out to katherny directly to reschedule. Patient understood DR documented in this encounter Plan of Treatment Upcoming Encounters Date Type Department Care Team (Late st Contact Info) Description 02/06/2025 9:45 AM EDT Office Visit [facility] [address] [place] [address] [phone] 09/28/2025 9:30 AM EST Medication Management [facility] [address] [place] [phone] Fay Leigh, PharmD [address] [place] [address] documented as of this encounter Visit Diagnoses Not on filedocumented in this encounter Care Teams Drum Dyeing Machine Operator Relationship Specialty Start Date End Date Nupur Weir ANP [address] [place] [address] PCP - General Family Medicine 01/16/20 documented as of this encounter
--- OUTSIDE RECORDS SUMMARY | 2024-12-21 12:34 | XMS_ITS | Clinical Summary ---
Author Organization [employer] Address [address] [place] [address] 7[address] [place] [address] Care Team Providers Care Finishing Trimmer Name Role Phone Carmella Michael RENAE Primary Care Provider [phone] Allergies Active Allergy Reactions Criticality Noted Date [...] inhaler as directed 1 each 023 Active ferrous sulfate (Fe Tabs) 325 (65 Fe) [...] 3 times a day 90 capsule 2 024 Active lidocaine (Lidoderm) 5 % patch APPLY 1 PATCH TOPICALLY TO THE SKIN DAILY. LEAVE ON MOST PAINFUL AREA FOR UP TO 12 HOURS 30 patch 1 Active dicyclomine (Bentyl) 10 MG capsule Take 1 capsule by mouth. 2 to 4 times a day Active dilTIAZem CD (Cardizem CD) 180 MG 24 hr capsule Take 1 capsule by mouth Once per day. Active magnesium oxide (Mag-Ox) [...] DAILY NEEDED FOR CONSTIPATION 180 tablet 1 024 Active levothyroxine (Synthroid, Levoxyl) 25 MCG tabletIndications :Other specified hypothyroidism TAKE 1 TABLET BY MOUTH EVERY DAY BEFORE BREAKFAST 90 tablet 1 024 Active losartan (Cozaar) 50 MG tabletIndications :Primary hypertension TAKE 1 TABLET(50 MG) BY MOUTH IN THE MORNING 90 tablet 1 024 Active clotrimazole (Lotrimin) 1 % creamIndications: Intertrigo Apply twice daily for 14-28d to navel area 30 g 025 Active Cholecalciferol (Vitamin D3) 125 MCG (5000 [...] EVERY 4 HOURS NEEDED 18 g 1 Active amoxicillin-clavu lanate (Augmentin) 875-125 MG tablet Take 1 tablet by mouth 2 times daily for 10 days. 20 tablet 025 2024 Active acetaminophen (Tylenol Extra Strength) 500 MG tablet Take 1 tablet (500 mg) by mouth every 6 (six) hours if needed for mild pain. 120 tablet 025 2024 Active fluticasone (Flonase) 50 MCG/ACT nasal spray Administer 2 sprays into each nostril Once per day. 16 g 1 025 Active fluticasone (Flonase) 50 MCG/ACT nasal spray Administer 2 sprays into each nostril Once per day. 024 2024 Discontinued(R eorder (will not trigger notification to Pharmacy)) hydrocortisone (Anusol-HC) 2.5 % rectal creamIndications: Hemorrhoids, [...] to 7 days. 21 tablet 025 2024 nitrofurantoin, macrocrystal-mono hydrate, (Macrobid) 100 MG capsuleIndication s:Dysuria Take 1 capsule (100 mg) by mouth 2 times daily for 5 days. 10 capsule 025 2024 Active Problems Problem Noted Date Diagnosed Date Subacute pansinusitis 12/11/2024 Assessment & Plan (12/11/2024 10:46 AM EDT): Rx Augmentin x 10d Rest (sleep at least 8 hours a night). Hydrate with plenty of water (avoid caffeine and alcohol). Use saline nose drops to loosen mucus + Flonase Take Acetaminophen (Tylenol??)/Ibuprofen as needed to reduce fever, headache, body aches or discomfort Gargle with salt water and use throat sprays/lozenges for throat pain. Use heated, humidified air. If you do not have a humidifier, take hot showers. Cover coughs and sneezes using the crook of your elbow. If you have a fever, stay home and away from others (self isolation) until fever-free for 72 hours (temperature should be less than 100??F without medication). DC as needed persistent symptoms, presence of vaginal discharge, diarrhea. Lower urinary tract symptoms (LUTS) 12/11/2024 Assessment & Plan (12/11/2024 10:45 AM EDT): Patient has symptomatic bacteriuria PCP had sent Macrobid but given concomitant sinus symptoms, I have reviewed urine culture and prescribed amoxicillin Advised to follow-up as needed recurrent UTI symptoms Long-term current use of opiate analgesic 2024 [...] Encounters Date Type Department Care Team Description 12/21/2024 Refill [facility] [address] [place] [address] Michael Yanez, BATOOL Arthralgia, unspecified joint 12/15/2024 9:15 AM EDT Office Visit [facility] [address] [place] [address] Michael Yanez ANP PETER (obstructive sleep apnea) (Primary Dx); Uncomplicated asthma, unspecified asthma severity, unspecified whether persistent 12/15/2024 Travel 12/13/2024 Refill [facility] [address] [place] [address] Michael aYnez ANP Arthralgia, unspecified joint 12/11/2024 10:20 AM EDT Office Visit [facility] [address] [place] [address] Marcella Colindres MD Subacute pansinusitis (Primary Dx); Lower urinary tract symptoms (LUTS); Nasal congestion 12/11/2024 Travel 12/07/2024 Orders Only GENERIC EXTERNAL DATA DEPARTMENT Provider, Generic External Data 12/01/2024 11:30 AM EDT Clinical Support [facility] [address] [place] [phone] Kassy Ramsey, RN Low back pain at multiple sites (Primary Dx); Long-term current use of opiate analgesic 12/01/2024 Orders Only [facility] [address] [place] [phone] Michael Yanez ANP Dysuria (Primary Dx) 12/01/2024 Telephone [facility] [address] [place] [phone] Michael Yanez ANP Medication Question 12/01/2024 Travel 11/30/2024 Telephone [facility] ADULT DENTAL [address] [place] [address] Laura Posey rs no show appt 11/30/2024 Telephone [facility] & PEDS [address] [place], [place] [phone] Kassy Ramsey, RN 11/30/2024 Telephone [facility] [address] [place] [phone] Michael Yanez ANP Appointment Request 11/30/2024 Refill [facility] [address] [place] [phone] Michael Yanez ANP 11/24/2024 Refill [facility] [address] [place] [address] Michael Yanez ANP Hemorrhoids, unspecified hemorrhoid type 11/24/2024 Refill [facility] [address] [facility] [place] [address] Michael Yanez ANP Low back pain at multiple sites (Primary Dx) 11/16/2024 2:15 PM EDT Office Visit [facility] [address] [facility] [place] [address] Michael Yanez ANP Low back pain at multiple sites (Primary Dx) 11/16/2024 Orders Only [facility] [address] [facility] [place] [address] Michael Yanez ANP Constipation, unspecified constipation type (Primary Dx) 11/16/2024 Orders Only [facility] [address] [facility] [address] Michael Yanez ANP Acute cystitis without hematuria (Primary Dx) 11/16/2024 Travel 11/10/2024 Telephone [facility] [place] [address] Michael Yanez ANP Referral 11/10/2024 Population Health Risk Score [facility] () Department [address] [place] [phone] Provider, Population Health Generic 11/07/2024 Refill [facility] [address] [place] [address] Michael Yanez ANP Primary hypertension; Iron deficiency anemia, unspecified iron deficiency anemia type 10/23/2024 Travel 10/23/2024 Refill [facility] [place] [address] Michael Yanez ANP Arthralgia, unspecified joint (Primary Dx) 10/23/2024 Refill [facility] [place] [address] Michael Yanez ANP 10/04/2024 Telephone [facility] [place] [address] Renee Law [place] november (Called pt to book appt ,pt agreed to come 12/15/24.) 09/29/2024 Telephone [facility] [address] [place] [phone] Mary Lou Obrien, PharmD 09/29/2024 Travel from Last 3 Months Immunizations Name Administration Dates Next Due Hep B, adult 02/15/2008,10/26/2007,09/07/2007 Influenza injectable quadriv alent preservative free 09/01/2022,08/19/2021,07/12/2020,07/17,06/10/2017,10/12/2016 Influenza, IIV3, injectable 05/25/2014, 2,05/07/2011 Influenza, Split (incl. [place] antigen) 05/11/2013 Influenza, seasonal, injecta ble, preservative free 07/21/2024 Pfizer Covid-19 Vaccine 12+ 09/29/2024(Deferred: Patient decision) Pneumococcal Conjugate PCV 20 12/15/2024 Pneumococcal Polysaccharide PPSV23 07/17/2018, TD (adult), 2 [...] the past 12 months, has t he [employer], gas, oil or water [email or web address] threatened to shut off services in your [...] Sign Reading Time Taken Comments Blood Pressure 111/79 12/15/2024 9:06 AM EDT Pulse 76 12/15/2024 9:06 AM EDT Temperature 35.9 ??C (96.7 ??F) 12/11/2024 10:10 AM E DT Respiratory Rate 20 12/15/2024 9:06 AM EDT Oxygen Saturation 98% 12/11/2024 10:10 AM EDT Inhaled Oxygen Concentration - - Weight 68 kg (150 lb) 12/15/2024 9:06 AM EDT Height 165.1 cm (5' 5 ) 12/15/2024 9:06 AM EDT Body Mass Index 24.96 12/15/2024 9:06 AM EDT Plan of Treatment Upcoming Encounters Date Type Department Care Team (Late st Contact Info) Description 02/06/2025 9:45 AM EDT Office Visit [facility] [address] [place] [phone] 09/28/2025 9:30 AM EST Medication Management [address] [address] Fay Leigh, PharmD [address] [place] [address] Health Maintenance Due Date Last Done Comments CT Colonography 1966 FIT DNA/Cologuard 1966 FIT 1966 FOBT 1965 Sigmoidoscopy 1966 Pap Smear 1987 HPV/Cotest 01/27/1996 SDOH Screening 11/04/2023 11/03/2022 Dental Oral Exam 11/06/2024 05/08/2024, 03/20/2022 Dental Prophylaxis 11/06/2024 05/08/2024, 03/20/2022 Depression Screening 01/03/2025 01/04/2024, 01/04/20 Dental X-Ray: Full Mouth 03/21/2025 03/20/2022 Dental X-Ray: Bitewings 05/09/2025 05/08/2024 Alcohol/Substance Use Screening 07/07/2025 07/07/2024 Mammogram 12/06/2025 12/07/2023, 11/09/2018 Tobacco Screening 12/15/2025 12/15/2024 Lipid Panel 08/25/2029 08/25/2024, 12/08/2021 DTaP/Tdap/Td Vaccines [...] history exists Zoster Vaccines Completed 10/03/2024, 07/21/2024 Pneumococcal Vaccine: 50+ Years Completed 12/15/2024, 07/17/2018, 02/09/2014 COVID-19 Vaccine Discontinued Cervical Cancer Screening Discontinued HIB Vaccines Aged Out No longer [...] Procedure Name Priority Date/Time Associated Diagnosis Comments POC VU ID NOW STREP A Routine 12/11/2024 10:23 AM EDT Nasal congestion POCT INFLUENZA B (ID NOW RAPID MOLECULAR) Routine 12/11/2024 10:23 AM EDT Nasal congestion POCT INFLUENZA A (ID NOW RAPID MOLECULAR) Routine 12/11/2024 10:23 AM EDT Nasal congestion POCT RAPID COVID ANTIGEN Routine 12/11/2024 10:23 AM EDT Nasal congestion URINALYSIS, COMPLETE, WITH REFLEX TO CULTURE Routine 12/07/2024 10:06 AM EDT URINALYSIS WITH REFLEX MICROSCOPIC Routine 12/07/2024 10:06 AM EDT CULTURE, URINE, ROUTINE Routine 12/07/2024 10:06 AM EDT Dysuria CULTURE, URINE, ROUTINE Routine 12/07/2024 12:00 AM EDT POCT MERY-14 URINE DRUG SCREEN Routine 12/01/2024 11:09 AM EDT Long-term current use of opiate analgesic Low back pain at multiple sites LIPID PANEL, STANDARD Routine 08/25/2024 10:00 AM [...] Relevant to Health Maintenance Results * POCT Rapid Influenza B VU ID NOW (12/11/2024 10:23 AM EDT) Influenza B Negative Negative, Indeterminate [facility] QC Media Lot # [id number] [facility] Lot# Expiration Date [facility] Swab 12/11/2024 10:2 3 AM EDT Marcella Colindres MD POINT OF CARE TEST ENTER /EDIT ORDERABLES Final Result [facility] [address] [place] [address] [phone] * POCT Rapid Influenza A VU ID NOW (12/11/2024 10:23 AM EDT) Influenza A Negative Negative, Indeterminate [facility] QC Media Lot # [id number] [facility] Lot# Expiration Date [facility] Swab 12/11/2024 10:2 3 AM EDT Marcella Colindres MD POINT OF CARE TEST ENTER /EDIT ORDERABLES Final Result [facility] [address] [place] [address] [phone] * POCT Rapid Strep A VU ID NOW (12/11/2024 10:23 AM EDT) [facility] Rapid Strep A Screen Negative Negative, None Detected QC Media Lot # [id number] Lot# Expiration Date Swab 12/11/2024 10:2 3 AM EDT Marcella Colindres MD POINT OF CARE TEST ENTER /EDIT ORDERABLES Final Result * POCT Rapid Covid-19 BinaxNOW (12/11/2024 10:23 AM EDT) [facility] Rapid COVID Ag Negative QC Media Lot # [id number] Lot# Expiration Date Swab 12/11/2024 10:2 3 AM EDT Marcella Colindres MD POINT OF CARE TEST ENTER /EDIT ORDERABLES Final Result * (ABNORMAL) Urinalysis, Complete, with Reflex to Culture (12/07/2024 10:06 AM EDT) Pathologist [facility] Color Urine Yellow [facility] Appearance Urine Cloudy [facility] PH 7.0 5.0 - 9.0 [facility] Glucose Urine UA Negative Negative mg/dL [facility] Urine Blood Negative Negative [facility] Specific Murphy - Urine 1.020 1.005 - 1.025 [facility] Urine Protein Negative Neg-Trace mg/dL [facility] Urine Ketones Negative Negative mg/dL [facility] Nitrite Urine Negative Negative [facility] Leukocyte Esterase Urine Moderate (2+)(A) Negative [facility] RBC Urine 0-2 0 - 2 /HPF [facility] Urine WBC 6-10 0 - 5 /HPF [facility] Urine Squamous Epithelial Cell 0-2 0 - 2 /HPF [facility] Urine Bacteria Trace None Seen [facility] Hyaline Casts, Urine 0-2 0 - 2 /LPF [facility] 12/07/2024 10:0 6 AM EDT 12/07/2024 11:43 AM EDT [facility] - 12/07/2024 12:28 PM EDT Urine, Clean Catch us Generic External Data Provider LAB URINE ORDERAB LES Final Result Performing Organization Address City/[facility]/ZIP Co de Phone Number [facility] [address] [place] [phone] * (ABNORMAL) Urinalysis w/reflex microscopic (12/07/2024 10:06 AM EDT) Color Urine Yellow [facility] Appearance Urine Cloudy [facility] PH 7.0 5.0 - 9.0 [facility] Glucose Urine UA Negative Negative mg/dL [facility] Urine Blood Negative Negative [facility] Specific Murphy - Urine 1.020 1.005 - 1.025 [facility] Urine Protein Negative Neg-Trace mg/dL [facility] Urine Ketones Negative Negative mg/dL [facility] Nitrite Urine Negative Negative [facility] Leukocyte Esterase Urine Moderate (2+)(A) Negative [facility] 12/07/2024 10:0 6 AM EDT 12/07/2024 11:43 AM EDT [facility] - 12/07/2024 11:57 AM EDT Urine, Clean Catch us Generic External Data Provider LAB URINE ORDERAB LES Final Result Performing Organization Address City/[facility]/ZIP Co de Phone Number [facility] [address] [place] [phone] * Culture, Urine, Routine (12/07/2024 10:06 AM EDT) Only the most recent of2 resultswithin the time period is included. Urine Urine specimen obtained by clean catch procedure / Unknown 12/07/2024 10:06 AM EDT 12/07/2024 11:43 AM EDT Comment:UACC Narrative [facility] - 12/09/2024 8:29 AM EDT Escherichia coli Quant 10,000 to 50,000 cfu/mL Escherichia coli: Ampicillin <=2(S) Escherichia coli: Cefazolin (Urine) 4(S) Escherichia coli: Cefepime <=0.12(S) Escherichia coli: Ceftriaxone <=0.25(S) Escherichia coli: Ciprofloxacin 1(R) Escherichia coli: Gentamicin <=1(S) Escherichia coli: Nitrofurantoin <=16(S) Escherichia coli: Trimethoprim/Sulfamethoxazole >=320(R) Specimen Source: Urine clean catch us Michael RENAE LAB MICROBIOLOGY - GENERAL ORDER MARGI Final Result [facility] [address] [place] [phone] * POCT MERY-14 Urine Drug Screen (12/01/2024 11:09 AM EDT) Urine Urine specimen obtained by clean catch procedure / Unknown 12/01/2024 11:09 AM EDT Narrative Kassy Ramsey RN - 12/01/2024 11:09 AM EDT negative AMP, BAR, BUP, BZO, ADOLFO, FTY, MDMA, MET, MOP, MTD, OXY, PCP, TCA, THC. .UTOX cup Lot#[id number] Exp. 04/18/26 Internal Pass Control us Michael RENAE POINT OF CARE TEST ENTER/EDIT OR DERABLES Final Result * (ABNORMAL) Lipid Panel, Standard (08/25/2024 10:00 AM EST) Triglycerides 61 <150 mg/dL [facility] Comment:Desirable Triglyceri de: less than 150 mg/dLBorderline High Triglyceride 150-199 mg/dLHigh Triglyceride: 200-499 mg/dLVery High Triglyceride: greater than or equal to 5OO mg/dL Cholesterol 173 <200 mg/dL [facility] Comment:Desirable Cholestero l: less than 200 mg/dLBorderline High Cholesterol: 200-239 mg/dLHigh Cholesterol: greater than 239 mg/dL LDL Cholesterol Calculated 105(H) <100 mg/dL [facility] Comment:Desirable LDL: less than 100 mg/dLNear Optimal/Above Optimal LDL: 110- 129 mg/dLBorderline High LDL: 130-159 mg/dLHigh LDL: 160-189 mg/dLVery High LDL: greater than or equal to 190 mg/dL HDL Cholesterol 56 >40 mg/dL [facility] Comment:Desirable HDL: great er than 40 mg/dL Note: This HDL assay may give artificially low results in patients with liver disease. 08/25/2024 10:0 0 AM EST 08/25/2024 11:37 AM EST [facility] LAB BLOOD ORDERABLES Final Resul t [facility] [address] [place] [phone] * HIV-1/2 Antigen and Antibodies, Fourth Generation, with Reflexes (01/04/2024 9:49 AM EDT) HIV AB/AG Nonreactive Nonreactive [facility] Comment:HIV-1 p24 Ag and/or HIV-1/HIV-2 Ab not detected.A test result that is nonreactive does not exclude thepossibility of exposure to or infection with HIV-1 and/orHIV-2. Nonreactive results in this assay for individualswith prior exposure to HIV-1 and/or HIV-2 may be due toantigen and antibody levels that are below the limit ofdetection of this assay.The [employer]otec AMD HIV Ag/Ab Combo assay result andsupplemental assay results should be interpreted inconjunction with the patient's clinical presentation,history and other laboratory results. If the results areinconsistent with clinical evidence, additional testing issuggested to confirm the result. Blood Venous blood specimen / Unknown 01/04/2024 9:49 AM EDT 01/04/2024 11:50 AM EDT us Michael Yanez [facility] BLOOD ORDERABLES Final Resul t [facility] [address] [place] [phone] * BI Mammogram Screening Tomosynthesis Bilateral (12/07/2023 9:05 AM EDT) Anatomical Region Laterality Modality Breast Bilateral Mammography 12/07/2023 9:05 AM EDT Narrative 12/13/2023 5:28 AM EDT ? [facility] ? [address] ?[place] [address] ? Mammography Report ? Signed ? Patient: Gladys,Laura ?MR#: [id number] ?? 27 ? : 1965 ?Acct:[id number] ? Age/Sex: 58 / F ?ADM Date: 04//24 ? Loc: HO.MAMMO ? Attending Dr: Michael Yanez HISTOLOGY TECHNICIAN ? Ordering Physician: Alex Machuca MD ?Results: 1Negativ ?? e ? Date of Service: 12/06/ ?Follow Up: 1 Year From Orig ?? inal Mammogram ? Procedure(s): MM tomosynthesis screening BI ?? Accession Number(s): [id number] ? cc: MICHAEL YANEZ NP; Alex Machuca [...] by Bebe Hagan MD in OV> ? 12/13/23523 ? DD/ 4 ? TD/TT: ? [employer] Set Up Technician: ? Procedure Note Jayda, Frances - 12/13/2023 [facility] [address] [place] [address] [place] [address] Mammography Report Signed Patient: Aleksandar Graham#: [id number] 27 : 1965Acct:[id number] Age/Sex: 58 / FADM Date: 12/07/23 Loc: BUDDayronMAMMO Attending Dr: Michael Yanez NP Ordering Physician: Alex Machuca MDResults: 1Negativ e Date of Service: 12/07/23Follow Up: 1 Year From Orig inal Mammogram Procedure(s): MM tomosynthesis screening BI Accession Number(s): [id number] cc: MICHAEL YANEZ NP; Alex Machuca MD [...] MD in OV> 12/13/23523 DD/ 4 TD/TT: [employer] Set Up Technician: [facility] External Provider IMG BI PROCEDURES Final Result * Hepatitis C Ab (09/09/2022 10:23 AM EST) Hepatitis C Antibody Nonreactive Nonreactive [facility] Comment:Antibodies to HCV no t detected; does not exclude early acuteHCV infection. 09/09/2022 10:2 3 AM EST 09/09/2022 10:23 AM EST [facility] External Provider LAB BLO OD ORDERABLES Final Result [facility] [address] [place] [phone] [phone] * Hm Colonoscopy (07/08/2021 12:15 PM EST) Colonoscopy Normal Normal Fidencio Vila MD HEALTH MAINTENANCE Edited Re sult - Final from Last 3 Months or Most Recently Relevant to Health Maintenance Insurance [facility] C3 DENTAL-[facility] MEDICAID STAND ADULT Care Teams Finishing Trimmer Relationship Specialty Start Date End Date Michael Yanez ANP [address] [place] [phone] PCP - General Family Medicine 01/16/20
--- OUTSIDE RECORDS SUMMARY | 2024-12-21 12:34 | XMS_ITS | Encounter Summary ---
Author Organization [employer] Address [address] [place] [address] [address] [place] [address] Care Team Providers Care Industrial Waste Treatment Technician Name Role Phone Nupur Weir Primary Care Provider [phone] Reason for Visit * Reason Comments Med Refill Encounter Details Date Type Department Care Team (Late st Contact Info) Description 01/09/2023 Refill [facility] [address] [place] [address] Nupur Weir ANP [address] [place] [address] Arthralgia, unspecified joint; Other specified hypothyroidism Social [...] Description 02/06/2025 9:45 AM EDT Office Visit [address] [address] 09/28/2025 9:30 AM EST Medication Management [address] [address] Fay Leigh, [place] [address] [place] [address] documented as of this encounter Visit Diagnoses Diagnosis Arthralgia, unspecified joint Other specified hypothyroidism documented in this encounter Care Teams Industrial Waste Treatment Technician Relationship Specialty Start Date End Date Nupur Weir ANP [address] [place] [phone] PCP - General Family Medicine 01/16/20 documented as of this encounter
--- OUTSIDE RECORDS SUMMARY | 2024-12-21 12:34 | XMS_ITS | Encounter Summary ---
Author Organization [employer] Address [address] [place] [address] Care Team Providers Care Methods Engineer Name Role Phone Nupur Weir Primary Care Provider [phone] Reason for Visit * Reason Onset Date Comments Appointment Request 11/30/2024 Encounter Details Date Type Department Care Team ([facility] st Contact Info) Description 11/30/2024 Telephone [facility] [address] [place] [address] Nupur Weir ANP [address] [place] [address] Appointment Request Social History Tobacco Use Types [...] EDT Tc from pt requesting to r/s [employer] appt. States has another appt around the same time at sleep medicine and pt informs takes bus and believes will not be able to make it on time. Would like to r/s for Wednesday. documented in this encounter Plan of Treatment Upcoming Encounters Date Type Department Care Team (Late st Contact Info) Description 02/06/2025 9:45 AM EDT Office Visit [facility] [address] [place] [address] [phone] 09/28/2025 9:30 AM EST Medication Management [facility] [address] [place] [phone] Fay Leigh, PharmD [address] [place], [place] [phone] documented as of this encounter Visit Diagnoses Not on filedocumented in this encounter Care Teams Methods Engineer Relationship Specialty Start Date End Date Nupur Weir ANP [address] [place] [address] PCP - General Family Medicine 01/16/20 documented as of this encounter
--- OUTSIDE RECORDS SUMMARY | 2024-12-21 12:34 | XMS_ITS | Encounter Summary ---
Author Organization [employer] Address [address] [place] [address] 7t [place] [address] Care Team Providers Care Home Lending Officer Name Role Phone Nupur Weir Primary Care Provider Reason for Visit * Reason Onset Date Comments Med Refill 05/14/2023 Encounter Details Date Type Department Care Team ([facility] st Contact Info) Description 05/14/2023 Telephone [facility] MEDICINE 230 [place] [address] Nupur Weir ANP 230 [place] [address] Med Refill Social History Tobacco Use Types [...] Description 02/06/2025 9:45 AM EDT Office Visit [address] [address] 09/28/2025 9:30 AM EST Medication Management [address] [address] Fay Leigh PharmD [address] [place] [address] documented as of this encounter Visit Diagnoses Not on filedocumented in this encounter Care Teams Home Lending Officer Relationship Specialty Start Date End Date Nupur Weir ANP [address] [place] [address] PCP - General Family Medicine 01/16/20 documented as of this encounter
--- OUTSIDE RECORDS SUMMARY | 2024-12-21 12:35 | XMS_ITS | Encounter Summary ---
Author Organization [id number] | [employer] [facility] Address [address] [place] [address] 7 [place] [address] Care Team Providers Care Metal Furniture Glazier Name Role Phone Nupur Weir Primary Care Provider [phone] Encounter Details Date Type Department Care Team (Latest Contact Info) Description 03/26/[address] [facility] CONVERSIONS Dental, Provider, DDS Social History [...] Upcoming Encounters Date Type Department Care Team ( st Contact Info) Description 02/06/2025 9:45 AM EDT Office Visit [facility] MEDICINE [address] [place] [address] 09/28/2025 9:30 AM EST Medication Management [facility] MEDICINE 230 [place] [address] Fay Leigh, PharmD 230 [place] [address] documented as of this encounter Visit Diagnoses Not on filedocumented in this encounter Care Teams Metal Furniture Glazier Relationship Specialty Start Date End Date Nupur Weir ANP [address] [place] [address] PCP - General Family Medicine 01/16/20 documented as of this encounter"
--- OUTSIDE RECORDS SUMMARY | 2024-12-21 12:35 | XMS_ITS ---
Author Organization [facility] Address [address] [place] [address] Care Team Providers Care Code Enforcement Supervisor Name Role Phone MICHAEL YANEZ N.P. Primary [...] 07/14/2024 Encounters Encounter Location Date Provider Diagnosis [facility] [address] [place] [address] 07/14/2024 Fidencio Vila Jr Abdominal cramping R10.9 [...] [address] [facility], [address], [place], [address], Progress Notes * GREG TYLERFRENCHB: 6 (59 yo F)Acc No.[id number]:07/14/2024 Progress Notes Patient:?TAY TYLER Provider:?Fidencio Vila MD :1965???Age:59 Y???Sex:Female D ate:07/14/2024 Address:[place] [address], [address] [place] [address] [place], [id number] Pcp:MICHAEL YANEZ N.P. Subjective: * Chief Complaints: [...] Provider:?Fidencio Vila MD Date:?1 09/13/2023 Generated for Vivinae negrete/Shakila/eTransmitting on:?12/21/2024 12:35 PM EDT History and Physical Notes * [...]
--- OUTSIDE RECORDS SUMMARY | 2024-12-21 12:35 | XMS_ITS | Encounter Summary ---
Author Organization [employer] Address [address] 7t [place] [address] Care Team Providers Care Diffusion Operator Name Role Phone Nupur Weir Primary Care Provider [phone] Reason for Visit * Reason Onset Date Comments Med Refill 07/26/2024 Encounter Details Date Type Department Care Team ([facility] st Contact Info) Description 07/26/2024 Telephone [facility] MEDICINE 230 [place] [address] Nupur Weir ANP 230 [place] [address] Med Refill Social History Tobacco Use Types [...] 50 MG tablet To be sent to: [id number] [place], [place] [address] [facility] documented in this encounter Plan of Treatment Upcoming Encounters Date Type Department Care Team (Late st Contact Info) Description 02/06/2025 9:45 AM EDT Office Visit [facility] MEDICINE [address] [place] [phone] 09/28/2025 9:30 AM EST Medication Management [facility] MEDICINE [address] [place] [address] Fay Leigh, PharmD 230 [place] [address] documented as of this encounter Visit Diagnoses Not on filedocumented in this encounter Care Teams Diffusion Operator Relationship Specialty Start Date End Date Nupur Weir ANP 230 [place] [address] PCP - General Family Medicine 01/16/20 documented as of this encounter
--- OUTSIDE RECORDS SUMMARY | 2024-12-21 12:35 | XMS_ITS | Encounter Summary ---
Author Organization [employer] Address [address] 7t [place] [address] Care Team Providers Care Hplc Chemist Name Role Phone Weir Nupur RENAE Primary Care Provider Reason for Visit * Reason Comments Med Refill Encounter Details Date Type Department Care Team ([facility] st Contact Info) Description 03/22/[address] 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
--- OUTSIDE RECORDS SUMMARY | 2024-12-21 12:35 | XMS_ITS | Encounter Summary ---
Author Organization [employer] Address [address] 7t [place] [address] Care Team Providers Care Junior Analyst Name Role Phone Carmella Nupur RENAE Primary Care Provider [phone] Reason for Visit * Reason Comments Med Refill Encounter Details Date Type Department Care Team ([facility] st Contact Info) Description 02/11/2024 Refill [facility] MEDICINE 230 [place] [address] Marcella Colindres MD 230 [place] [address] Gastritis medicamentosa Social History Tobacco Use Types [...] Description 02/06/2025 9:45 AM EDT Office Visit [address] [address] 09/28/2025 9:30 AM EST Medication Management [address] [address] Fay Leigh, PharmD [address] [place] [address] documented as of this encounter Visit Diagnoses Diagnosis Gastritis medicamentosa Other specified gastritis without mention of hemorrhage documented in this encounter Care Teams Junior Analyst Relationship Specialty Start Date End Date Nupur Weir ANP [address] [place] [address] PCP - General Family Medicine 01/16/20 documented as of this encounter
--- OUTSIDE RECORDS SUMMARY | 2024-12-21 12:35 | XMS_ITS | Encounter Summary ---
Author Organization [employer] [facility] Address [address] [place] [address] 7t [place] [address] Care Team Providers Care Credit Reference Clerk Name Role Phone Carmella Nupur RENAE Primary Care Provider [phone] Encounter Details Date Type Department Care Team (Late st Contact Info) Description 07/30/2022 Abstract [facility] ADULT DENTAL 230 [place] [address] Dental, Provider, DDS Social History Tobacco Use [...] Description 02/06/2025 9:45 AM EDT Office Visit [facility] MEDICINE [address] [place] [address] 09/28/2025 9:30 AM EST Medication Management [facility] MEDICINE [address] [place] [address] Fay Leigh, PharmD 230 [place] [address] documented as of this encounter Procedures Procedure [...] on filedocumented in this encounter Care Teams Credit Reference Clerk Relationship Specialty Start Date End Date Nupur Weir ANP [address] [place] [address] PCP - General Family Medicine 01/16/20 documented as of this encounter
--- OUTSIDE RECORDS SUMMARY | 2024-12-21 12:35 | XMS_ITS | Patient Health Record ---
Author Organization [facility] Address [address] [place] [address] Care Team Providers Care Warehouse Examiner Name Role Phone MICHAEL YANEZ N.P. Primary Care Provider Fidencio Langely Jr Unavailable Allergies Allergen (clinical drug ingredient) Drug/Non Drug Allergy documented on EMR Reaction Allergy Type Onset Date Status fentanyl fentaNYL Unknown Drug Allergy Active Results Component Value Reference Range Notes Pathology Reviewed date:12/31/2023 03:02:56 PM Interpretation: Performing Lab:[facility], [address] [place] [phone] Notes/Report: - -------- Name: Tay Tyler Age/Sex: 58/F : 1965 Unit#: [id number] Attend Dr: Fidencio Vila MD Re12/29/23 Status : [facility] Location: [facility] Disch: - -------- SPEC : [id number] RECD : 12/29/23 STATUS: CIELO PRICE NUM: [id number] ANGELA: 12/29/231338 [facility] DR: Fidencio Vila MD ENTERED: 12/29/23 [...] A. CEDS Copies To: Fidencio Vila MD [address] [place] [address] [id number] [place] [id number] MICHAEL YANEZ NP [address] [place] [address] [place] [phone] - -------- Signed (signature on file) Messi Anaya MD 12/31/[address] - -------- END OF REPORT Complete Blood Count Auto Rena maddox Reviewed date:07/17/2024 08:00:34 AM Interpretation: Performing Lab:[facility], [address] [place] [phone] Notes/Report: White Blood Count 5.3 4.8-10.8 X10*3/uL [...] Panel Reviewed date:07/17/2024 08:00:27 AM Interpretation: Performing Lab:[facility], [address] [place] [phone] Notes/Report: Bilirubin Total 0.7 0.0-1.0 mg/dL Bilirubin Direct 0.3 0.0-0.5 mg/dL Aspartate Amino Transferase 21 5-31 U/L Alanine Aminotransferase 17 0-31 U/L Total Protein 6.4 6.5-8.0 g/dL Albumin Level 3.7 3.5-5.0 g/dL Alkaline Phosphatase 104 39-117 U/L Lipase Reviewed date:07/17/2024 08:00:21 AM Interpretation: Performing Lab:[facility], [address] [place] [phone] Notes/Report: Lipase 14 8-78 U/L Thyroid Stimulating Hormone Reviewed date:07/17/2024 08:00:15 AM Interpretation: Performing Lab:[facility], [address] [place] [phone] Notes/Report: Thyroid Stimulating Hormone 0.97 0.32-4.0 uIU/mL [...] Problem Status W/U Status Risk Notes Problem 558567025 Colon cancer screening (Z12.11) Active confirmed Problem 85974948 Rectal bleeding (K62.5) Active confirmed Problem 48101392 Epigastric pain (R10.13) Active confirmed Problem Dysphagia (66631585) Dysphagia (R13.10) Active confirmed Problem 170233045 Elevated LFTs (R79.89) Active confirmed Problem 670678483 Gastroesophageal reflux disease without esophagitis (K21.9) Active confirmed Problem 90346077 Dysphagia, unspecified type (R13.10) Active confirmed Vital Signs Blood pressure diastolic 00 mm Hg 07/14/2024 Height 64.5 in 07/14/2024 Blood pressure systolic 00 mm Hg 07/14/2024 Weight 153 lbs 07/14/2024 BMI 25.85 kg/m2 07/14/2024 Encounters Encounter Location Date Provider Diagnosis [facility] Outpatient [address] [place] [id number] 12/29/2023 Fidencio Vila Jr Rectal bleeding K62.5 [facility] [address] [place] [address] 07/14/2024 Fidencio Vila Jr Abdominal cramping R10.9 [facility] [address] [address] 12/24/2023 Fidencio Vila Jr [facility] [address] [place] [address] [address] 12/31/2023 Fidencio Vila Jr [facility] [address] [address] 07/17/2024 Fidencio Vila Jr Assessments Encounter Date [...] Test Name Order Date LIVER PROFILE 07/14/2024 LIVER PROFILE 06/02/2023 LIVER PROFILE 11/30/2022 LIVER PROFILE 11/11/2022 LIPASE 11/30/2022 LIPASE 11/11/2022 LIPASE 07/14/2024 GGT 06/02/2023 TSH (THYROID STIMULATING HORMONE) 2023 [...] Name:Fidencio haider , 07/11/2025 09:40:00 AM, [address] [facility], [address], [place], [address], Insurance Providers Payer Name Payer Address Payer Phone Subscriber Number Group Number Insured Name Patient Relationship to Insured Coverage Start Date Coverage End Date MEDICAID OF [facility] [address] [place] [address] [id number] TAY TYLER Self - patient is the [...] partial hysterectomy tonsillectomy cancer in uterus [phone] Laparoscopic bypass surgery 11/14 removed two cyst removed fro m right shouder and outer colon =dr. jones
--- OUTSIDE RECORDS SUMMARY | 2024-12-21 12:35 | XMS_ITS | Encounter Summary ---
Author Organization [employer] Address [address] 7t [place] [address] Care Team Providers Care Tire Service Technician Name Role Phone Nupur Weir Primary Care Provider Reason for Visit * Reason Comments Med Refill Encounter Details Date Type Department Care Team ([facility] st Contact Info) Description 11/11/2023 Refill [facility] MEDICINE 230 [place] [address] uNpur Weir ANP 230 [place] [address] Social History Tobacco Use Types Packs/Day Years Used Date Smoking Tobacco: Never Passive Smoke Exposure: Never Smokeless Tobacco: Never Alcohol Use Standard Drinks/Week Comments Never 0 (1 standard drink = 0.6 oz pur e alcohol) PHQ-2 Answer Date Recorded Patient Health Questionnaire-2 Score 0 01/01/2023 Housing Stability Answer Date Recorded What is your housing situation today? I have michael gilbetr 06/13/[address] you li [...] Description 02/06/2025 9:45 AM EDT Office Visit [facility] MEDICINE [address] [place] [address] 09/28/2025 9:30 AM EST Medication Management [address] [address] Fay Leigh, PharmD [address] [place] [address] documented as of this encounter Visit Diagnoses Not on filedocumented in this encounter Care Teams Tire Service Technician Relationship Specialty Start Date End Date Nupur Weir ANP [address] [place] [address] PCP - General Family Medicine 01/16/20 documented as of this encounter
--- OUTSIDE RECORDS SUMMARY | 2024-12-21 12:35 | XMS_ITS | Encounter Summary ---
Author Organization [employer] [facility] Address [address] [place] [address] 7t [place] [address] Care Team Providers Care User Interface Artist Name Role Phone Nupur Weir Primary Care Provider [phone] Encounter Details Date Type Department Care Team (Late st Contact Info) Description 08/14/2022 Abstract [facility] ADULT DENTAL 230 [place] [address] Angel Lagos DMD 230 [place] [address] Social History Tobacco Use Types Packs/Day Years [...] Description 02/06/2025 9:45 AM EDT Office Visit [facility] MEDICINE [address] [place] [address] 09/28/2025 9:30 AM EST Medication Management [facility] MEDICINE 230 [place] [address] Fay Leigh, PharmD 230 [place] [address] documented as of this encounter Visit Diagnoses Not on filedocumented in this encounter Care Teams User Interface Artist Relationship Specialty Start Date End Date Nupur Weir ANP 230 [place] [address] PCP - General Family Medicine 01/16/20 documented as of this encounter
--- OUTSIDE RECORDS SUMMARY | 2024-12-21 12:35 | XMS_ITS | Encounter Summary ---
Author Organization [employer] Address [address] 7t [place] [address] Care Team Providers Care Airbrush Artist Name Role Phone Nupur Weir Primary Care Provider [phone] Encounter Details Date Type Department Care Team (Late st Contact Info) Description 07/05/2024 Telephone [facility] ADULT DENTAL 230 [place] [address] Yarelis Rosales DDS 230 [place] [address] Social History Tobacco Use Types Packs/Day Years [...] Shameka Simons - 07/05/2024 10:56 AM EST In doctor flip Patient called she went her pharmacy and her medication was not there. Can we send her prescriptions to her pharmacy thank you . documented in this encounter Plan of Treatment Upcoming Encounters Date Type Department Care Team (Late st Contact Info) Description 02/06/2025 9:45 AM EDT Office Visit [facility] MEDICINE [address] [place] [address] 09/28/2025 9:30 AM EST Medication Management [facility] [address] [place] [address] Fay Leigh, PharmD [address] [place] [address] documented as of this encounter Visit Diagnoses Not on filedocumented in this encounter Care Teams Airbrush Artist Relationship Specialty Start Date End Date Nupur Weir ANP [address] [place] [address] PCP - General Family Medicine 01/16/20 documented as of this encounter
--- OUTSIDE RECORDS SUMMARY | 2024-12-21 12:35 | XMS_ITS | Encounter Summary ---
Author Organization [employer] Address [address] 7t [place] [address] Care Team Providers Care Solution Developer Name Role Phone Nupur Weir Primary Care Provider [phone] Reason for Visit * Reason Onset Date Comments Med Refill 10/01/2023 Encounter Details Date Type Department Care Team ([facility] st Contact Info) Description 10/01/2023 Telephone [facility] MEDICINE 230 [place] [address] Nupur Weir ANP 230 [place] [address] Med Refill Social History Tobacco Use Types [...] Base) MCG/ACT inhaler To be sent to: [id number] [place], [place] [address] [facility] documented in this encounter Plan of Treatment Upcoming Encounters Date Type Department Care Team (Late st Contact Info) Description 02/06/2025 9:45 AM EDT Office Visit [facility] MEDICINE [address] [place] [address] 09/28/2025 9:30 AM EST Medication Management [facility] MEDICINE [address] [place] [address] Fay Leigh, PharmD 230 [place] [address] documented as of this encounter Visit Diagnoses Not on filedocumented in this encounter Care Teams Solution Developer Relationship Specialty Start Date End Date Nupur Weir ANP 230 [place] [address] PCP - General Family Medicine 01/16/20 documented as of this encounter
--- OUTSIDE RECORDS SUMMARY | 2024-12-21 12:35 | XMS_ITS | Encounter Summary ---
Author Organization [employer] Address [address] 7t [place] [address] Care Team Providers Care Refractory Tile Helper Name Role Phone Nupur Weir Primary Care Provider [phone] Reason for Visit * Reason Comments Med Refill Encounter Details Date Type Department Care Team ([facility] st Contact Info) Description 09/19/2023 Refill [facility] MEDICINE 230 [place] [address] Nupur Weir ANP 230 [place] [address] Constipation, unspecified constipation type Social History Tobacco [...] Description 02/06/2025 9:45 AM EDT Office Visit [facility] MEDICINE [address] [place] [address] 09/28/2025 9:30 AM EST Medication Management [address] [address] Fay Leigh, PharmD [address] [place] [address] documented as of this encounter Visit Diagnoses Diagnosis Constipation, unspecified constipation type documented in this encounter Care Teams Refractory Tile Helper Relationship Specialty Start Date End Date Nupur Weir ANP [address] [place] [address] PCP - General Family Medicine 01/16/20 documented as of this encounter
--- OUTSIDE RECORDS SUMMARY | 2024-12-21 12:35 | XMS_ITS | Encounter Summary ---
Author Organization [employer] Address [address] 7t [place] [address] Care Team Providers Care Asp Net Software Developer Name Role Phone Nupur Weir Primary Care Provider [phone] Reason for Visit * Reason Comments Med Refill Encounter Details Date Type Department Care Team ([facility] st Contact Info) Description 02/11/2024 Refill [facility] MEDICINE 230 [place] [address] Nupur Weir ANP 230 [place] [address] Social History Tobacco Use Types Packs/Day Years [...] Description 02/06/2025 9:45 AM EDT Office Visit [facility] MEDICINE [address] [place] [address] 09/28/2025 9:30 AM EST Medication Management [address] [address] Fay Leigh, PharmD [address] [place] [address] documented as of this encounter Visit Diagnoses Not on filedocumented in this encounter Care Teams Asp Net Software Developer Relationship Specialty Start Date End Date Nupur Weir ANP [address] [place] [address] PCP - General Family Medicine 01/16/20 documented as of this encounter
--- OUTSIDE RECORDS SUMMARY | 2024-12-21 12:35 | XMS_ITS | Encounter Summary ---
Author Organization [employer] Address [address] 7t [place] [address] Care Team Providers Care Smokehouse Worker Name Role Phone Nupur Weir Primary Care Provider [phone] Reason for Visit * Reason Comments Med Refill Encounter Details Date Type Department Care Team ([facility] st Contact Info) Description 07/22/2024 Refill [facility] MEDICINE 230 [place] [address] Nupur Weir ANP 230 [place] [address] Social History Tobacco Use Types Packs/Day Years [...] Description 02/06/2025 9:45 AM EDT Office Visit [facility] MEDICINE [address] [place] [address] 09/28/2025 9:30 AM EST Medication Management [facility] MEDICINE [address] [place] [address] Fay Leigh, PharmD [address] [place] [address] documented as of this encounter Visit Diagnoses Not on filedocumented in this encounter Care Teams Smokehouse Worker Relationship Specialty Start Date End Date Nupur Weir ANP [address] [place] [address] PCP - General Family Medicine 01/16/20 documented as of this encounter
--- OUTSIDE RECORDS SUMMARY | 2024-12-21 12:35 | XMS_ITS ---
Author Organization [facility] Address [address] [place] [address] Care Team Providers Care Instructional Support Services Director Name Role Phone MICHAEL YANEZ N.P. Primary Care Provider Fidencio Langley Jr REASON FOR VISIT labs Encounters Encounter Location Date Provider Diagnosis [facility] [address] [place] [address] 07/17/2024 Fidencio Vila Jr Plan Of Treatment Next Appt Details Provider Name:Fidencio haider Jr, 07/11/2025 09:40:00 AM, [address], [address], [place], [address], Progress Notes * TIFFANEI TYLERADOB: 6 (59 yo F)Acc No.[id number]:07/17/2024 Patient:?TAY TYLER :1965???Age:59 Y???Sex:Female Address:[address] [facility] [place] [address] * true * Date:? Generated for Viviane negrete/Shakila/eTransmitting on:?12/21/2024 12:35 PM EDT
--- OUTSIDE RECORDS SUMMARY | 2024-12-21 12:35 | XMS_ITS | Encounter Summary ---
Author Organization [employer] Address [address] [place] [address] Care Team Providers Care Pricing Intern Name Role Phone Nupur Weir Primary Care Provider [phone] Encounter Details Date Type Department Care Team (Late st Contact Info) Description 04/11/2024 Orders Only [facility] [address] [place] [address] Nupur Weir ANP [address] [place] [address] Social History Tobacco Use Types Packs/Day Years [...] Description 02/06/2025 9:45 AM EDT Office Visit [facility] [address] [place] [phone] 09/28/2025 9:30 AM EST Medication Management [facility] [address] [place] [phone] Fay Leigh, PharmD [address] [place] [phone] documented as of this encounter Visit Diagnoses Not on filedocumented in this encounter Care Teams Pricing Intern Relationship Specialty Start Date End Date Nupur Weir ANP [address] [place] [phone] PCP - General Family Medicine 01/16/20 documented as of this encounter
--- OUTSIDE RECORDS SUMMARY | 2024-12-21 12:35 | XMS_ITS | Encounter Summary ---
Author Organization [employer] Address [address] 7[address] [place] [address] Care Team Providers Care Flask Cleaner Name Role Phone Nupur Weir Primary Care Provider [phone] Reason for Visit * Reason Comments Med Refill Encounter Details Date Type Department Care Team ([facility] Contact Info) Description 06/19/2024 Refill [facility] [address] [place] [address] Nupur Weir ANP [address] [place] [address] Other specified hypothyroidism Social History Tobacco Use [...] Description 02/06/2025 9:45 AM EDT Office Visit [facility] [address] [place] [phone] 09/28/2025 9:30 AM EST Medication Management [facility] [address] [place] [phone] Fay Leigh, PharmD [address] [place] [phone] documented as of this encounter Visit Diagnoses Diagnosis Other specified hypothyroidism documented in this encounter Care Teams Flask Cleaner Relationship Specialty Start Date End Date Nupur Weir ANP [address] [place] [phone] PCP - General Family Medicine 01/16/20 documented as of this encounter
--- OUTSIDE RECORDS SUMMARY | 2024-12-21 12:35 | XMS_ITS | Encounter Summary ---
Author Organization [employer] Address [address] [place] [address] Care Team Providers Care Dye Stand Loader Name Role Phone Nupur Weir Primary Care Provider [phone] Reason for Visit * Reason Comments Med Refill Encounter Details Date Type Department Care Team ([facility] st Contact Info) Description 12/21/2024 Refill [facility] [address] [place] [address] Nupur Weir ANP [address] [place] [address] Arthralgia, unspecified joint Social History Tobacco Use Types Packs/Day Years [...] Description 02/06/2025 9:45 AM EDT Office Visit [facility] [address] [place] [phone] 09/28/2025 9:30 AM EST Medication Management [facility] [address] [place] [phone] Fay Leigh, MayoD [address] [place] [phone] documented as of this encounter Visit Diagnoses Diagnosis Arthralgia, unspecified joint documented in this encounter Care Teams Dye Stand Loader Relationship Specialty Start Date End Date Nupur Weir ANP [address] [place] [phone] PCP - General Family Medicine 01/16/20 documented as of this encounter
--- OUTSIDE RECORDS SUMMARY | 2024-12-21 12:35 | XMS_ITS ---
Author Organization [facility] Address [address] [place] [address] Care Team Providers Care Transformation Analyst Name Role Phone MICHAEL YANEZ N.P. Primary Care Provider Tiara Vila Jr, Fidencio Rivera REASON FOR VISIT pathology Encounters Encounter Location Date Provider Diagnosis [facility] [address] [place] [address] 12/31/2023 Fidencio Vila Jr Plan Of Treatment Next Appt Details Provider Name:Fidencio haider Jr, 07/11/2025 09:40:00 AM, [address], [address], [place], [address], Progress Notes * TIFFANIE TYLERADOB: 6 (58 yo F)Acc No.[id number]:12/31/2023 Patient:?TAY TYLER :1965???Age:58 Y???Sex:Female Address:[address] [place] [address] * true * Date:? Generated for Taylori caden/Shakila/eTransmitting on:?12/21/2024 12:34 PM EDT
== END 2024-12-21 11:32 | disposition home or self-care (01) ==
LOC: HO.HUSH 10:45
PROVIDERS: PCP Nurse Practitioner Primary Care; Visit Provider Nurse Practitioner Family
DX: R30.0 Dysuria (principal); N20.0 Calculus of kidney; Z13.9 Encounter for screening, unspecified
CPT/HCPCS: 99214

== ENCOUNTER → 2024-12-21 10:44 | Outpatient (BNVA) | payer MEDICAID, SELFPAY | PROVIDERS: PCP Nurse Practitioner Primary Care; Visit Provider Nurse Practitioner Family | DX: R30.0 Dysuria (principal); N20.0 Calculus of kidney; Z87.440 Personal history of urinary (tract) infections | CPT/HCPCS: 51798; 81003; 99212 ==

== ENCOUNTER 2024-12-31 08:52 | Emergency (ER) | payer MEDICAID, SELFPAY ==
--- NOTE | ~2024-12-31 | CT_ITS ---
CLINICAL HISTORY: right flank pain, +uti, eval for pyelo CT abdomen and pelvis without contrast Comparison: None Findings: The lung bases are clear. Partial gastrectomy. Left lower abdominal enteroenteric anastomosis. No bowel obstruction. Up to 13 mm dilatation of the extrahepatic bile duct at least partially secondary to the cholecystectomy. 2 mm nonobstructive right renal stone. No hydronephrosis. Jwew-jy-obcqbcnk colonic stool. Hysterectomy. Appendix not seen and therefore could not be evaluated. The bones are intact. Spinal degenerative changes. Atherosclerotic calcifications. Nonspecific small sclerotic focus within the left iliac wing. Spleen, pancreas, adrenals, and liver are unremarkable. IMPRESSION: 2 mm nonobstructive right renal stone. No hydronephrosis. This document has been electronically signed by: Marium Avendano MD on 12/31/2024 11:41:34
[2024-12-31 08:57] VITALS: BP 93/43; PULSE 89; RESP 18; TEMP 36.4; O2SAT 97; BMI 25.6
[2024-12-31 09:14] VITALS: BP 102/66; PULSE 67; RESP 16; O2SAT 98
--- OUTSIDE RECORDS SUMMARY | 2024-12-31 09:31 | XMS_ITS ---
Author Organization [facility] Address [address] [place] [address] Care Team Providers Care Management Professor Name Role Phone MICHAEL YANEZ N.P. Primary Care Provider Fidencio Langley Jr REASON FOR VISIT labs Encounters Encounter Location Date Provider Diagnosis [facility] [address] [place] [address] 07/17/2024 Fidencio Vila Jr Plan Of Treatment Next Appt Details Provider Name:Fidencio haider Jr, 07/11/2025 09:40:00 AM, [address], [address], [place], [address], Progress Notes * TIFFANIE TYLERADOB: 6 (59 yo F)Acc No.[id number]:07/17/2024 Patient:?TAY TYLER :1965???Age:59 Y???Sex:Female Address:[address] [place] [address] * true * Date:? Generated for Viviane negrete/Shakila/eTransmitting on:?12/31/2024 09:31 AM EDT
--- OUTSIDE RECORDS SUMMARY | 2024-12-31 09:31 | XMS_ITS ---
Author Organization [facility] Address [address] [place] [address] Care Team Providers Care Depositing Machine Operator Name Role Phone MICHAEL YANEZ N.P. Primary Care Provider Fidencio Langley Jr Unavailable [phone] Allergies Allergen (clinical drug ingredient) Drug/Non Drug [...] 07/14/2024 Encounters Encounter Location Date Provider Diagnosis [facility] [address] [place] [address] 07/14/2024 Fidencio Vila Jr Abdominal cramping R10.9 [...] AM, [address], [address], [place], [address], Progress Notes * GREG TYLERFRENCHB: 6 (59 yo F)Acc No.[id number]:07/14/2024 Progress Notes Patient:?TAY TYLER Provider:?Fidencio Vila MD :1965???Age:59 Y???Sex:Female D ate:07/14/2024 Address:[place] [address], [address] [place] [address] [place], [place]-[address] Pcp:MICHAEL YANEZ N.P. Subjective: * Chief Complaints: [...] MD Date:?1 09/13/2023 Generated for Viviane negrete/Shakila/eTransmitting on:?12/31/2024 09:31 AM EDT History and Physical Notes * [...]
--- OUTSIDE RECORDS SUMMARY | 2024-12-31 09:32 | XMS_ITS ---
Author Organization [facility] Address [address] [place] [address] Care Team Providers Care Glaze Carrier Name Role Phone MICHAEL YANEZ N.P. Primary Care Provider Tiara Vila Jr, Fidencio Rivera [phone] REASON FOR VISIT pathology Encounters Encounter Location Date Provider Diagnosis [facility] [address] [place] [address] 12/31/2023 Fidencio Vila Jr Plan Of Treatment Next Appt Details Provider Name:Fidencio haider Jr, 07/11/2025 09:40:00 AM, [address], [address], [place], [address], Progress Notes * TIFFANIE TYLERADOB: 6 (58 yo F)Acc No.[id number]:12/31/2023 Patient:?TAY TYLER :1965???Age:58 Y???Sex:Female Address:[address] [facility] [address] * true * Date:? Generated for Viviane negrete/Shakila/eTransmitting on:?12/31/2024 09:31 AM EDT
--- OUTSIDE RECORDS SUMMARY | 2024-12-31 09:32 | XMS_ITS | Patient Health Record ---
Author Organization [facility] Address [address] [place] [address] Care Team Providers Care Pharmacy Benefit Manager Name Role Phone MICHAEL YANEZ N.P. Primary Care Provider Fidencio Langley Jr Unavailable Allergies Allergen (clinical drug ingredient) Drug/Non Drug Allergy documented on EMR Reaction Allergy Type Onset Date Status fentanyl fentaNYL Unknown Drug Allergy Active Results Component Value Reference Range Notes Complete Blood Count Auto Di ff Reviewed date:07/17/2024 08:00:34 AM Interpretation: Performing Lab:[facility], [address] [place] [phone] Notes/Report: White Blood Count 5.3 4.8-10.8 X10*3/uL [...] Panel Reviewed date:07/17/2024 08:00:27 AM Interpretation: Performing Lab:[facility], [address] [place] [phone] Notes/Report: Bilirubin Total 0.7 0.0-1.0 mg/dL Bilirubin Direct 0.3 0.0-0.5 mg/dL Aspartate Amino Transferase 21 5-31 U/L Alanine Aminotransferase 17 0-31 U/L Total Protein 6.4 6.5-8.0 g/dL Albumin Level 3.7 3.5-5.0 g/dL Alkaline Phosphatase 104 39-117 U/L Lipase Reviewed date:07/17/2024 08:00:21 AM Interpretation: Performing Lab:[facility], [address] [place] [phone] Notes/Report: Lipase 14 8-78 U/L Thyroid Stimulating Hormone Reviewed date:07/17/2024 08:00:15 AM Interpretation: Performing Lab:[facility], [address] [place] [phone] Notes/Report: Thyroid Stimulating Hormone 0.97 0.32-4.0 uIU/ mL TSH 3rd Generation ([facility]) Reason For [...] Problem Status W/U Status Risk Notes Problem 283664311 Colon cancer screening (Z12.11) Active confirmed Problem 98526457 Rectal bleeding (K62.5) Active confirmed Problem 49749514 Epigastric pain (R10.13) Active confirmed Problem Dysphagia (78600462) Dysphagia (R13.10) Active confirmed Problem 746071962 Elevated LFTs (R79.89) Active confirmed Problem 407814242 Gastroesophageal reflux disease without esophagitis (K21.9) Active confirmed Problem 62823111 Dysphagia, unspecified type (R13.10) Active confirmed Vital Signs Blood pressure diastolic 00 mm Hg 07/14/2024 Height 64.5 in 07/14/2024 Blood pressure systolic 00 mm Hg 07/14/2024 Weight 153 lbs 07/14/2024 BMI 25.85 kg/m2 07/14/2024 Encounters Encounter Location Date Provider Diagnosis [facility] [address] [place] [address] 07/14/2024 Fidencio Vila Jr Abdominal cramping R10.9 [facility] [address] [place] [address] 07/17/2024 Fidencio Vila Jr Assessments Encounter Date [...] COLONOSCOPY 12/01/2023 Next Appt Details Provider Name:Fidencio Lori haider , 07/11/2025 09:40:00 AM, [address] [place] [address], [address], [place], [address], Insurance Providers Payer Name Payer Address Payer Phone Subscriber Number Group Number Insured Name Patient Relationship to Insured Coverage Start Date Coverage End Date MEDICAID OF [employer] [facility] [address] [place] [address] [phone] [id number] TAY TYLER Self - patient is the [...] partial hysterectomy tonsillectomy cancer in uterus [phone] Laparoscopic bypass surgery 11/14 removed two cyst removed fro m right shouder and outer colon =dr. jones
[2024-12-31 09:35] LABS: MANUAL DIFF FLAG NO
[2024-12-31 09:36] LABS: Basophils Absolute Auto 0.1 X10*3/uL (0.0-0.2); Basophils Percent Auto 1.1 % (0-2); Eosinophils Absolute Auto 0.3 X10*3/uL (0.0-0.4); Eosinophils Percent Auto 5.8 % (0-4); Hematocrit 39.9 % (37.0-47.0); Imm Gran Abs Auto 0.01 X10*3/uL (0.00-0.03); Imm Gran Pct Auto 0.2 % (0.0-0.4); Lymphocytes Absolute Auto 2.3 X10*3/uL (1.2-4.9); Lymphocytes Percent Auto 50.4 % (20-40); Mean Corpuscular HGB Conc 32.6 g/dl (31.0-35.0); Mean Corpuscular Hemoglobin 29.3 pg (27.0-33.0); Mean Corpuscular Volume 90.1 fL (80.0-98.0); Mean Platelet Volume 8.1 fL (9.4-12.3); Monocytes Absolute Auto 0.4 X10*3/uL (0.1-1.2); Monocytes Percent Auto 8.2 % (2-11); Neutrophils Absolute Auto 1.5 x10*3/uL (2.0-8.3); Neutrophils Percent Auto 34.3 % (45-73); Platelet Count 269 X10*3/uL (160-400); Red Blood Count 4.43 X10*6/uL (4.20-5.50); Red Cell Distribution Width 13.5 % (11.0-16.0); White Blood Count 4.5 X10*3/uL (4.8-10.8)
[2024-12-31 09:37] LABS: Appearance Urine Cloudy; Color Urine Yellow; Glucose Urine UA Negative (Negative); Leukocyte Esterase Urine Moderate (2+) (Negative); Nitrite Urine Negative (Negative); PH 8.5 (5.0-9.0); Specific Gravity - Urine 1.015 (1.005-1.025); UMIC TRIGGER UACC YES; Urine Blood Negative (Negative); Urine Ketones Negative (Negative); Urine Protein Negative (Neg-Trace)
[2024-12-31 09:42] LABS: Bacteria Urine None Seen (None Seen); Hyaline Casts Urine 0-2 /LPF (0-2); RBC Urine 0-2 /HPF (0-2); Squamous Epithelial Cell Urine 0-2 /HPF (0-2); UACC Culture Trigger YES
[2024-12-31 09:49] LABS: Anion Gap 12 (12-20); Blood Urea Nitrogen 11 mg/dL (9-16); Calcium 8.4 mg/dL (8.4-10.2); Carbon Dioxide 21 mmol/L (22-29); Chloride 111 mmol/L (96-108); Creatinine Clr Calc Pharmacy 84.6; Estimated Glomerular Filt Rate > 60; Glucose Random 91 mg/dL (60-115); Potassium 3.8 mmol/L (3.3-5.1); Sodium 140 mmol/L (135-145)
--- NOTE | 2024-12-31 09:49 | ED_ITS ---
HPI - Back Pain/Injury General Chief Complaint: Back Pain/Injury Stated Complaint: back pain Time Seen by Provider: 12/31/24 09:33 Source: patient and party demonstrator Mode of arrival: ambulatory Limitations: language barrier History of Present Illness ED Provider: Marleny Singh APRN HPI Narrative: This is a 51-year-old female who has a history of hypertension, urinary incontinence, abdominal surgical history (total hyst, appendectomy, cholecystectomy, bariatric surgeon) who presents to the ER with complaints of lower back pain right greater than left for the last 4 days which radiates to the right lower abdomen. There is associated dysuria. There is no reports of nausea, vomiting, diarrhea, constipation, fevers, chills, vaginal discharge. Patient is not sexually active. No concern for STI. Patient was seen at her urologist 4days ago and was diagnosed with a UTI and started on linezolid. She feels that she has no improvement in her symptoms. MD elicited complaint: back pain Related Data Home Medications ?Medication ?Instructions ?Recorded ?Confirmed cyanocobalamin (vitamin B-12) 1,000 mcg PO DAILY 07/05/20 07/13/24 1,000 mcg capsule diltiazem HCl 180 mg 180 mg PO DAILY 11/24/21 07/13/24 capsule,extended release 24 hr fluticasone propionate 110 1 puff PO BID 11/24/21 07/13/24 mcg/actuation HFA aerosol inhaler (Flovent HFA) pantoprazole 40 mg tablet,delayed 40 mg PO DAILY 11/24/21 07/13/24 release cholecalciferol (vitamin D3) 50 2,000 unit PO DAILY 11/26/21 07/13/24 mcg (2,000 unit) capsule losartan 50 mg tablet 50 mg PO DAILY blood pressure 11/24/22 07/13/24 levothyroxine 25 mcg tablet 25 mcg PO DAILY 01/08/23 07/13/24 riboflavin (vitamin B2) 100 mg 200 mg PO BID 01/08/23 07/13/24 tablet (Vitamin B-2) topiramate 50 mg tablet 100 mg PO BID 01/08/23 07/13/24 cetirizine 10 mg tablet 10 mg PO DAILY PRN itch 07/24/24 Previous Rx's ?Medication ?Instructions ?Recorded lidocaine 5 % topical patch 1 patch topical DAILY #15 ea 03/07/23 (Lidoderm) gabapentin 100 mg capsule 100 mg PO TID #270 caps 12/06/23 docusate sodium 100 mg capsule 100 mg PO BID #30 caps 05/12/24 (Colace) ibuprofen 600 mg tablet 600 mg PO Q6-8H PRN pain (scale 06/08/24 score 1-3) #20 tabs ibuprofen 200 mg tablet 200 mg PO TID PRN pain #10 tabs 06/14/24 cyclobenzaprine 10 mg tablet 10 mg PO TID PRN muscle spasm #10 08/30/24 tabs lidocaine 5 % topical patch 1 patch topical DAILY #15 ea 08/30/24 solifenacin 5 mg tablet (Vesicare) 5 mg PO DAILY 30 days #30 tabs 12/13/24 pyridoxine (vitamin B6) 100 mg 100 mg PO DAILY 90 days #90 tabs 12/22/24 tablet linezolid 600 mg tablet (Zyvox) 600 mg PO BID 7 days #14 tabs 12/26/24 phenazopyridine 200 mg tablet 200 mg PO TID 6 doses #6 tabs 12/31/24 (Pyridium) Allergies Allergy/AdvReac Type Severity Reaction Status Date / Time ondansetron [From ZOFRAN] Allergy Unknown per H&P Verified 12/31/24 08:58 sumatriptan [From IMITREX] Allergy Unknown RASH FROM Verified 12/31/24 08:58 TABLET NOT INJECTION promethazine [From PHENERGAN] AdvReac Severe DYSTONIA Verified 12/31/24 08:58 Review of Systems 2 Review of Systems: Yes all other systems are reviewed and are negative Constitutional: Constitutional: Reports no additional constitutional complaints, Denies body ache(s), Denies chills, Denies fever(s), Denies headache(s) and Denies weakness Eyes: Eyes: Reports no additional eye complaints and Denies change in vision ENT: Reports system reviewed and no additional complaints, except as documented, Denies dizziness, Denies headache(s), Denies nasal congestion, Denies nasal discharge and Denies neck pain Cardiovascular: Cardiovascular: Reports no additional cardiovascular complaints, Denies chest pain, Denies leg edema and Denies dyspnea Respiratory: Respiratory: Reports no additional respiratory complaints, Denies cough and Denies dyspnea Gastrointestinal: Gastrointestinal: Reports no additional gastrointestinal complaints, Reports abdominal pain, Denies diarrhea, Denies nausea and Denies vomiting Genitourinary: Genitourinary: Reports no additional female genitourinary complaints, Reports dysuria, Denies urinary incontinence, Denies urinary hesitancy, Denies urinary urgency, Denies vaginal discharge, Denies vaginal dryness and Denies vaginal odor Musculoskeletal: Musculoskeletal: Reports no additional musculoskeletal complaints, Reports back pain, Denies arthralgias, Denies joint swelling, Denies neck pain, Denies numbness and Denies tingling Integumentary/Breasts: Skin/Breast: Reports system reviewed and no additional complaints, except as docu and Denies rash Neurologic: Reports system reviewed and no additional complaints, except as documented, Denies Abnormal speech present, Denies dizziness, Denies headache(s), Denies numbness, Denies tingling and Denies weakness PMFSH Past Medical History Attestation statement: The following information was validated with the patient. Source: old records reviewed and nursing notes reviewed Medical History Well woman exam Epidermal cyst Migraine HTN (hypertension) IBS (irritable bowel syndrome) GERD (gastroesophageal reflux disease) Chronic interstitial cystitis Sleep apnea Asthma Anemia Hypercholesteremia Depression Anxiety Sacrococcygeal pilonidal cyst Recurrent UTI Goiter Flank pain Dysuria Hypercalciuria Swelling of joint, ankle, right Swelling of right foot Vitamin D deficiency Hypothyroidism Right patella fracture History of secondary hyperparathyroidism Abnormal mammogram Surgical History History of removal of cyst (~05/12/24) History of bladder surgery H/O bilateral salpingo-oophorectomy S/P gastric bypass H/O left breast biopsy H/O: hysterectomy History of bilateral tubal ligation History of appendectomy Family History Family History Mother Uterine cancer Father No problems noted. 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 Sexual orientation: Straight/Heterosexual Gender identity: Female Physical Exam 2 Vital Signs: Vital Signs: Last Vital Signs Temp 98.2 F 12/31/24 12:25 Pulse 76 12/31/24 12:25 Resp 18 12/31/24 12:25 BP 106/60 12/31/24 12:25 Pulse Ox 97 12/31/24 12:25 O2 Del Method Room Air 12/31/24 12:25 BMI result Body Mass Index 25.6 Const: General: cooperative, healthy appearing, comfortable and no acute distress Orientation/consciousness: patient oriented x3 Limitations: no limitations HEENT: Head: Yes normal to inspection Ears: hearing grossly normal bilaterally General nose exam: Normal external nose present Face and sinus: Yes normal facial exam Mouth: Normal oral and palatal mucosa present Throat: Yes posterior oropharynx normal Eyes: General: appearance normal, both eyes and all related structures P upils: Equal, round and reactive pupils present Neck: Neck: Yes normal visual inspection Chest: Chest palpation & inspection: normal inspection of the chest Resp: Effort & Inspection: normal respiratory effort Auscultation: clear to auscultation bilaterally Cardio: Rate: regular rate Rhythm: regular rhythm Peripheral pulses: P eripheral pulses 2+ throughout GI: Inspection: Yes normal to inspection Palpation (GI): Soft to palpation and Tenderness to palpation present (GI) (No rebound or guarding) in the RLQ Auscultation: normal bowel sounds : General: Yes no CVA tenderness Back/Spine/Pelvis: Back: no CVA tenderness Thoracic/Lumbar Spine: thoracic and lumbar spine normal to inspection Skin: General skin exam: no rashes or lesions noted Neuro: General: patient oriented x3, no focal motor deficits and normal sensation to monofilament Cranial nerves: Yes Equal, round and reactive pupils present Cognition (Neuro): normal cognition Speech: No Abnormal speech present Gait exam (Neuro): Normal gait present Motor exam (neuro): 5/5 motor strength present throughout Extrem: General: Yes normal to inspection Course Course Course Narrative: CT shows IMPRESSION: 2 mm nonobstructive right renal stone. No hydronephrosis. Otherwise unremarkable. Labs are unremarkable. UA is consistent with a UTI. Patient is currently on linezolid from her urologist. I do not have her culture available. I will send a repeat culture to determine if this is the appropriate antibiotic. There is no clinical findings concerning for pyelonephritis. Patient nontoxic. Stable vital signs. She can be discharged home with recommendations to continue to follow up with her outpatient neurologist. Reviewed worrisome signs and symptoms of when to return to the emergency room. Comfortable plan for discharge home Medications Administered Discontinued Medications Generic Name Dose Route Start Last Admin Trade Name Nancy PRN Reason Stop Dose Admin Oxycodone HCl 5 mg 12/31/24 09:49 12/31/24 09:58 Oxycodone Hcl Immed Release 5 Mg Tablet PO 12/31/24 09:50 5 mg ONCE ONE Administration Medical Decision Making Medical Decision Making [facility] Narrative: This is a 51-year-old female who has a history of hypertension, urinary incontinence, abdominal surgical history (total hyst, appendectomy, cholecystectomy, bariatric surgeon) who presents to the ER with complaints of lower back pain right greater than left for the last 4 days which radiates to the right lower abdomen. There is associated dysuria. There is no reports of nausea, vomiting, diarrhea, constipation, fevers, chills, vaginal discharge. Patient is not sexually active. No concern for STI. Patient was seen at her urologist 4days ago and was diagnosed with a UTI and started on linezolid. She feels that she has no improvement in her symptoms. On exam patient has tenderness of the right lower quadrant no rebound or guarding. She has no CVA tenderness. Patient nontoxic. Vitals stable. Will obtain labs, UA, CT Will provide analgesia Differential Diagnosis Differential Diagnoses: The differential diagnosis associated with the presentation includes Renal colic, pyelonephritis, UTI Admission/Observation Consideration of admission/observation: Escalation of care including admission/observation considered Lab Data [facility] Lab Attestation statement: I reviewed the patient's lab results. 12/31/24 09:30 12/31/24 09:30 Labs: Lab Results 12/31/24 Range/Units 09:30 WBC 4.5 L (4.8-10.8) X10*3/uL RBC 4.43 (4.20-5.50) X10*6/uL Hgb 13.0 (12.0-16.0) g/dl Hct 39.9 (37.0-47.0) % MCV 90.1 (80.0-98.0) fL MCH 29.3 (27.0-33.0) pg MCHC 32.6 (31.0-35.0) g/dl RDW 13.5 (11.0-16.0) % Plt Count 269 (160-400) X10*3/uL MPV 8.1 L (9.4-12.3) fL Immature Gran % (Auto) 0.2 (0.0-0.4) % Neut % (Auto) 34.3 L (45-73) % Lymph % (Auto) 50.4 H (20-40) % [place] % (Auto) 8.2 (2-11) % Eos % (Auto) 5.8 H (0-4) % Baso % (Auto) 1.1 (0-2) % Lymph # (Auto) 2.3 (1.2-4.9) X10*3/uL [place] # (Auto) 0.4 (0.1-1.2) X10*3/uL Eos # (Auto) 0.3 (0.0-0.4) X10*3/uL Baso # (Auto) 0.1 (0.0-0.2) X10*3/uL Abs Immat Gran (auto) 0.01 (0.00-0.03) X10*3/uL Absolute Neuts (auto) 1.5 L (2.0-8.3) x10*3/uL Absolute Nucleated RBC 0.000 (0.0-0.012) X10*3/uL Nucleated RBC % (auto) 0.0 (0.0-0.2) /100WBC Sodium 140 (135-145) mmol/L Potassium 3.8 (3.3-5.1) mmol/L Chloride 111 H (96-108) mmol/L Carbon Dioxide 21 L (22-29) mmol/L Anion Gap 12 (12-20) BUN 11 (9-16) mg/dL Creatinine 0.71 (0.5-1.4) mg/dL Estim Creat Clear Calc 84.6 Estimated GFR > 60 Random Glucose 91 (60-115) mg/dL Calcium 8.4 (8.4-10.2) mg/dL Total Bilirubin 0.7 (0.0-1.0) mg/dL Direct Bilirubin 0.2 (0.0-0.5) mg/dL AST 28 (5-31) U/L ALT 27 (0-31) U/L Alkaline Phosphatase 88 (39-117) U/L Total Protein 6.6 (6.5-8.0) g/dL Albumin 3.7 (3.5-5.0) g/dL Urine Color Yellow Urine Appearance Cloudy Urine pH 8.5 (5.0-9.0) Ur Specific [place] 1.015 (1.005-1.025) Urine Protein Negative (Neg-Trace) mg/dL Urine Glucose (UA) Negative (Negative) mg/dL Urine Ketones Negative (Negative) mg/dL Urine Blood Negative (Negative) Urine Nitrite Negative (Negative) Ur Leukocyte Esterase Moderate (2+) H (Negative) Urine RBC 0-2 (0-2) /HPF Urine WBC 6-10 H (0-5) /HPF Ur Squamous Epith Cells 0-2 (0-2) /HPF Urine Bacteria None Seen (None Seen) Hyaline Casts 0-2 (0-2) /LPF Independent Interpretation I performed an independent interpretation of an: CT Scan Interpretation: I independently viewed the CT scan agree with the radiology report Radiology Impression Discussion of test interpretation with radiology: I have reviewed the radiologist's reading. Radiologist Impression: [place] [id number] CT Scan Report Signed Patient: Laura Graham MR#: [id number] : 1965 Acct:[id number] Age/Sex: 59 / F ADM Date: 12/31/24 Loc: HO.ED Attending Dr: Ordering Physician: Marleny Singh NP Date of Service: 12/31/24 Procedure(s): CT abdomen pelvis wo IV con Accession Number(s): [id number] cc: Marleny Singh NP; MICHAEL YAENZ NP~ Report Number: [id number]: Total DLP = 505.00 mGy-cm CLINICAL HISTORY: right flank pain, +uti, eval for pyelo CT abdomen and pelvis without contrast Comparison: None Findings: The lung bases are clear. Partial gastrectomy. Left lower abdominal enteroenteric anastomosis. No bowel obstruction. Up to 13 mm dilatation of the extrahepatic bile duct at least partially secondary to the cholecystectomy. 2 mm nonobstructive right renal stone. No hydronephrosis. Lluo-gx-bxggrubz colonic stool. Hysterectomy. Appendix not seen and therefore could not be evaluated. The bones are intact. Spinal degenerative changes. Atherosclerotic calcifications. Nonspecific small sclerotic focus within the left iliac wing. Spleen, pancreas, adrenals, and liver are unremarkable. IMPRESSION: 2 mm nonobstructive right renal stone. No hydronephrosis. Discharge Plan Discharge Clinical Impression: UTI (urinary tract infection) Patient Disposition: Home, Self-Care Instructions: Urinary Tract Infection in Women (ED) Additional Instructions: Continue your antibiotics You may take Tylenol for pain We are also prescribing you Pyridium which will help with the discomfort Your CT scan does show kidney stone in the right kidney. This is not causing any of your pain. Please follow-up with your outpatient urologist as needed Prescriptions: New phenazopyridine [Pyridium] 200 mg tablet 200 mg PO TID Qty: 6 0RF No Action cyanocobalamin (vitamin B-12) 1,000 mcg capsule 1,000 mcg PO DAILY cholecalciferol (vitamin D3) 50 mcg (2,000 unit) capsule 2,000 unit PO DAILY gabapentin 100 mg capsule 100 mg PO TID Qty: 270 3RF docusate sodium [Colace] 100 mg capsule 100 mg PO BID Qty: 30 0RF solifenacin [Vesicare] 5 mg tablet 5 mg PO DAILY 30 Days Qty: 30 1RF pyridoxine (vitamin B6) 100 mg tablet 100 mg PO DAILY 90 Days Qty: 90 0RF linezolid [Zyvox] 600 mg tablet 600 mg PO BID 7 Days Qty: 14 0RF ibuprofen 600 mg tablet 600 mg PO Q6-8H PRN (Reason: pain (scale score 1-3)) Qty: 20 0RF lidocaine [Lidoderm] 5 % adhesive patch,medicated 1 patch topical DAILY Qty: 15 0RF Rx Instructions: leave on most painful area for up to 12 hrs cyclobenzaprine 10 mg tablet 10 mg PO TID PRN (Reason: muscle spasm) Qty: 10 0RF lidocaine 5 % adhesive patch,medicated 1 patch topical DAILY Qty: 15 0RF Rx Instructions: leave on most painful area for up to 12 hrs pantoprazole 40 mg tablet,delayed release (DR/EC) 40 mg PO DAILY diltiazem HCl 180 mg capsule,extended release 24hr 180 mg PO DAILY Flovent HFA 110 mcg/actuation HFA aerosol inhaler 1 puff PO BID losartan 50 mg tablet 50 mg PO DAILY levothyroxine 25 mcg tablet 25 mcg PO DAILY topiramate 50 mg tablet 100 mg PO BID riboflavin (vitamin B2) [Vitamin B-2] 100 mg tablet 200 mg PO BID ibuprofen 200 mg tablet 200 mg PO TID PRN (Reason: pain) Qty: 10 0RF cetirizine 10 mg tablet 10 mg PO DAILY PRN (Reason: itch) Referrals: Michael Yanez, JETTING MACHINE OPERATOR [Primary Care Provider] - 1 week (as needed) Interventions: ED Discharge Assessment Last Done: 12/31/24 12:25 Discharge Date/Time: 12/31/24 12:26 Print Language: Malian
[2024-12-31] MEDS: oxyCODONE HCl Immed Release 5 MG TABLET PO (09:58)
[2024-12-31 10:19] LABS: Alanine Aminotransferase 27 U/L (0-31); Albumin Level 3.7 g/dL (3.5-5.0); Alkaline Phosphatase 88 U/L (39-117); Aspartate Amino Transferase 28 U/L (5-31); Bilirubin Direct 0.2 mg/dL (0.0-0.5); Bilirubin Total 0.7 mg/dL (0.0-1.0); Total Protein 6.6 g/dL (6.5-8.0)
--- NOTE | 2024-12-31 11:06 | PC.NURSE ---
Report received. Taken over care at this time.
[2024-12-31 12:00] VITALS: BP 106/60; PULSE 76; RESP 18; TEMP 36.8; O2SAT 97
[2024-12-31 12:25] VITALS: BP 106/60; PULSE 76; RESP 18; TEMP 36.8; O2SAT 97
== END 2024-12-31 12:26 | disposition home or self-care (01) ==
PROVIDERS: Nurse Practitioner Family; Emergency Provider Emergency Medicine; PCP Nurse Practitioner Primary Care
DX: N39.0 Urinary tract infection, site not specified (principal); M54.50 Low back pain, unspecified; R10.31 Right lower quadrant pain; R30.0 Dysuria; Z79.899 Other long term (current) drug therapy
CPT/HCPCS: 36415; 74176; 80048; 80076; 81001; 85025; 87086; 99284

== ENCOUNTER → 2024-12-31 09:48 | Outpatient (BNV) | payer MEDICAID, SELFPAY | PROVIDERS: Emergency Provider Emergency Medicine; PCP Nurse Practitioner Primary Care; Visit Provider Radiology Diagnostic Radiology | DX: N20.0 Calculus of kidney (principal) | CPT/HCPCS: 74176 ==

== ENCOUNTER 2025-01-08 08:45 | Emergency (ER) | payer MEDICAID, SELFPAY ==
[2025-01-08 08:53] VITALS: BP 97/63; PULSE 67; RESP 16; TEMP 36.2; O2SAT 100; BMI 25.6
[2025-01-08 09:19] LABS: IDNOW Serial# 6674DD1D; Strep A Nucleic Acid Negative (Negative)
--- OUTSIDE RECORDS SUMMARY | 2025-01-08 09:52 | XMS_ITS | Encounter Summary ---
Author Organization [employer] Address [address] [facility] [address] [place] [address] Care Team Providers Care Consumer Loan Underwriter Name Role Phone Nupur Weir Primary Care Provider [phone] Reason for Visit * Reason Comments Med Refill Encounter Details Date Type Department Care Team ([facility] st Contact Info) Description 12/22/2024 Refill [facility] [address] [place] [address] Nupur Weir ANP [address] [place] [address] Arthralgia, unspecified joint Social History Tobacco Use [...] Description 02/06/2025 9:45 AM EDT Office Visit [address] [address] 04/13/2025 9:00 AM EDT Office Visit [address] [address] Nupur Weir ANP [address] [place] [address] 09/28/2025 9:30 AM EST Medication Management [facility] [address] [place] [address] Fay Leigh, [place] [address] [place] [address] documented as of this encounter Visit Diagnoses Diagnosis Arthralgia, unspecified joint documented in this encounter Care Teams Consumer Loan Underwriter Relationship Specialty Start Date End Date Nupur Weir ANP [address] [place] [address] PCP - General Family Medicine 01/16/20 documented as of this encounter
--- OUTSIDE RECORDS SUMMARY | 2025-01-08 09:52 | XMS_ITS | Encounter Summary ---
Author Organization [employer] Address [address] 7[address] [place] [address] Care Team Providers Care Cap Blocker Name Role Phone Nupur Weir Primary Care Provider [phone] Reason for Visit * Reason Comments Med Refill Encounter Details Date Type Department Care Team ([facility] st Contact Info) Description 11/07/2024 Refill [facility] [address] [place] [address] Nupur Weir ANP [address] [place] [address] Primary hypertension; Iron deficiency anemia, unspecified iron [...] the past 12 months, has t he [employer] or [employer] threatened to shut off services in your [...] Description 02/06/2025 9:45 AM EDT Office Visit [facility] [address] [place] [address] 04/13/2025 9:00 AM EDT Office Visit [facility] [address] [place] [address] Nupur Weir ANP [address] [place] [address] 09/28/2025 9:30 AM EST Medication Management [facility] [address] [place] [address] Fay Leigh, [place] [address] [place] [phone] documented as of this encounter Visit Diagnoses Diagnosis Primary hypertension Unspecified essential hypertension Iron deficiency anemia, unspecified iron deficiency anemia type documented in this encounter Care Teams Cap Blocker Relationship Specialty Start Date End Date Nupur Weir ANP [address] [place] [address] PCP - General Family Medicine 01/16/20 documented as of this encounter
--- OUTSIDE RECORDS SUMMARY | 2025-01-08 09:52 | XMS_ITS | Encounter Summary ---
Author Organization [employer] Address [address] [place] [address] 7t [place] [address] Care Team Providers Care Show Host Name Role Phone Nupur Weir Primary Care Provider [phone] Reason for Visit * Reason Comments Med Refill Encounter Details Date Type Department Care Team (Late st Contact Info) Description 01/09/2023 Refill [facility] [address] [place] [address] Nupur Weir ANP [address] [place] [address] Arthralgia, unspecified joint; Other specified hypothyroidism Social [...] Description 02/06/2025 9:45 AM EDT Office Visit [address] [address] 04/13/2025 9:00 AM EDT Office Visit [address] [address] Nupur Weir ANP [address] [place] [address] 09/28/2025 9:30 AM EST Medication Management [address] [address] Fay Leigh PharmD [address] [place] [address] documented as of this encounter Visit Diagnoses Diagnosis Arthralgia, unspecified joint Other specified hypothyroidism documented in this encounter Care Teams Show Host Relationship Specialty Start Date End Date Nupur Weir ANP [address] [place] [address] PCP - General Family Medicine 01/16/20 documented as of this encounter
--- OUTSIDE RECORDS SUMMARY | 2025-01-08 09:52 | XMS_ITS ---
Author Organization [facility] Address 10 [facility] [address] [place] [address] Care Team Providers Care Telecommunications Operator Name Role Phone MICHAEL YANEZ N.P. Primary Care Provider Fidencio Langley Jr REASON FOR VISIT dysphagia Encounters Encounter Location Date Provider Diagnosis [facility] [address] [place] [address] 01/03/2025 Fidencio Vila Jr Plan Of Treatment Next Appt Details Provider Name:Fidencio haider Jr, 07/11/2025 09:40:00 AM, [address] [facility], [address], [place], [address], Progress Notes * TIFFANIE TYLERADOB: 6 (59 yo F)Acc No.[id number]:01/03/2025 Progress Notes Patient:?TAY TYLER Provider:?Fidencio Vila MD :1965???Age:59 Y???Sex:Female D ate:01/03/2025 Address:[address] [place] Pcp:MICHAEL YANEZ N.P. Subjective: * Chief Complaints: * ???1. Dysphagia. * Medical History:? Objective: * Vitals:? Assessment: Plan: * Treatment: * * The named appointment provid er may or may not be the originator of this progress note, and it is not deemed complete until electronically signed by the appointment provider. Sign off status: Pending * Provider:?Fidencio Vila MD Date:?0 01/03/2025 Generated for Viviane negrete/Shakila/Constantino on:?01/08/2025 09:52 AM EDT
--- OUTSIDE RECORDS SUMMARY | 2025-01-08 09:52 | XMS_ITS | Encounter Summary ---
Author Organization [employer] Address [address] [place] [address] Street 7t [place] [address] Care Team Providers Care Pony Ride Attendant Name Role Phone Nupur Weir Primary Care Provider [phone] Reason for Visit * Reason Onset Date Comments Med Refill 12/22/2024 Encounter Details Date Type Department Care Team ([facility] st Contact Info) Description 12/22/2024 Telephone [facility] [address] [place] [address] Nupur Weir ANP [address] [place] [address] Med Refill Social History Tobacco Use Types [...] * Telephone Encounter - Guille Monet - 12/22/2024 12:45 PM EDT TC from pt requesting medication refill. Medications needing refill : traMADol (Ultram) 50 MG tablet To be sent to: [facility] - [place], [place] - [address] [place] [address] documented in this encounter Plan of Treatment Upcoming Encounters Date Type Department Care Team (Late st Contact Info) Description 02/06/2025 9:45 AM EDT Office Visit [address] [address] 04/13/2025 9:00 AM EDT Office Visit [address] [address] Nupur Weir ANP [address] [place] [address] 09/28/2025 9:30 AM EST Medication Management [address] [place] [address] Fay Leigh, [place] [address] [place] [address] documented as of this encounter Visit Diagnoses Not on filedocumented in this encounter Care Teams Pony Ride Attendant Relationship Specialty Start Date End Date Nupur Weir ANP [address] [place] [address] PCP - General Family Medicine 01/16/20 documented as of this encounter
--- OUTSIDE RECORDS SUMMARY | 2025-01-08 09:53 | XMS_ITS | Clinical Summary ---
Author Organization [email or web address] Address [address] [place] [address] [address] [place] [address] Care Team Providers Care Aviation Maintenance Technician Name Role Phone Carmella Michael RENAE Primary Care Provider [phone] Allergies Active Allergy Reactions Criticality Noted Date [...] (ferrous sulfate) 45 tablet 1 024 Active lidocaine (Lidoderm) 5 % patch APPLY 1 PATCH TOPICALLY TO THE SKIN DAILY. LEAVE ON MOST PAINFUL AREA FOR UP TO 12 HOURS 30 patch 1 024 Active dicyclomine (Bentyl) 10 MG capsule Take [...] HOURS NEEDED 18 g 1 025 Active acetaminophen (Tylenol Extra Strength) 500 MG tablet Take 1 tablet (500 mg) by mouth every 6 (six) hours if needed for mild pain. 120 tablet 025 2024 Active fluticasone (Flonase) 50 MCG/ACT nasal spray Administer 2 sprays into each nostril Once per day. 16 g 1 025 Active gabapentin (Neurontin) 100 MG capsuleIndication s:Arthralgia, unspecified joint 1 capsule by mouth 3 times a day 90 capsule 2 025 Active gabapentin (Neurontin) 100 MG capsuleIndication s:Arthralgia, unspecified joint 1 capsule by mouth 3 times a day 90 capsule 2 024 2024 Discontinued(R eorder (will not trigger notification to Pharmacy)) fluticasone (Flonase) 50 MCG/ACT nasal spray Administer 2 sprays into each nostril Once per day. 024 2024 Discontinued(R eorder (will not trigger notification to Pharmacy)) nitrofurantoin, macrocrystal-mono hydrate, (Macrobid) 100 MG capsuleIndication s:Dysuria Take 1 capsule (100 mg) by mouth 2 times daily for 5 days. 10 capsule 025 2024 amoxicillin-clavu lanate (Augmentin) 875-125 MG tablet Take 1 tablet by mouth 2 times daily for 10 days. 20 tablet 025 2024 traMADol (Ultram) 50 MG tabletIndications [...] Encounters Date Type Department Care Team Description 01/08/2025 Orders Only GENERIC EXTERNAL DATA DEPARTMENT Provider, Generic External Data 01/02/2025 Telephone [facility] [address] [place] [phone] Michael Yanez ANP March01/02/2025 Patient Outreach [facility] [address] [place] [phone] Michael Yanez ANP Care Coordination (CM/CHW outreach) 01/01/2025 Patient Outreach [facility] [address] [place] [phone] Michael Yanez ANP Care Coordination (CHW chart review) 01/01/2025 Patient Outreach [facility] [address] [place] [phone] Michael Yanez ANP Care Management ([facility]- chart review) 01/01/2025 Patient Outreach [address] [address] Michael Yanez ANP 12/31/2024 Orders Only GENERIC EXTERNAL DATA DEPARTMENT Provider, Generic External Data 12/22/2024 Refill [facility] [address] [place] [phone] Michael Yanez ANP Arthralgia, unspecified joint 12/22/2024 Refill [facility] [address] [place] [address] Kassy Ramsey RN Low back pain at multiple sites (Primary Dx) 12/22/2024 Telephone [facility] [address] [place] [address] Michael Yanez ANP Med Refill 12/22/[address] [address] Michael Yanez ANP Arthralgia, unspecified joint 12/21/[address] [address] Michael Yanez ANP Arthralgia, unspecified joint 12/15/2024 9:15 AM EDT Office Visit [address] [address] Michael Yanez ANP PETER (obstructive sleep apnea) (Primary Dx); Uncomplicated asthma, unspecified asthma severity, unspecified whether persistent 12/15/2024 Travel 12/13/2024 Refill [facility] [address] [place] [phone] Michael Yanez ANP Arthralgia, unspecified joint 12/11/2024 10:20 AM EDT Office Visit [facility] [address] [place] [phone] Marcella Colindres MD Subacute pansinusitis (Primary Dx); Lower urinary tract symptoms (LUTS); Nasal congestion 12/11/2024 Travel 12/07/2024 Orders Only GENERIC EXTERNAL DATA DEPARTMENT Provider, Generic External Data 12/01/2024 11:30 AM EDT Clinical Support [facility] [address] [place] [phone] Kassy Ramsey, ILENE Low back pain at multiple sites (Primary Dx); Long-term current use of opiate analgesic 12/01/2024 Orders Only [facility] [place] [address] Michael Yanez ANP Dysuria (Primary Dx) 12/01/2024 Telephone [facility] [address] [place] [address] [place] [address] Michael Yanez ANP Medication Question 12/01/2024 Travel 11/30/2024 Telephone [facility] [address] [place] [address] Diego Poseyaris rs no show appt 11/30/2024 Telephone [facility] [address] [place] [address] Kassy Ramsey RN 11/30/2024 Telephone [facility] [address] [place] [phone] Michael Yanez ANP Appointment Request 11/30/2024 Refill [facility] [address] [place] [phone] Michael Yanez ANP 11/24/2024 Refill [facility] [address] [place] [phone] Michael Yanez ANP Hemorrhoids, unspecified hemorrhoid type 11/24/2024 Refill [facility] [address] [place] [address] [place] [address] Michael Yanez ANP Low back pain at multiple sites (Primary Dx) 11/16/2024 2:15 PM EDT Office Visit [facility] [place] [address] Michael Yaenz ANP Low back pain at multiple sites (Primary Dx) 11/16/2024 Orders Only [facility] [place] [place] [address] Michael Yanez ANP Constipation, unspecified constipation type (Primary Dx) 11/16/2024 Orders Only [facility] [address] [place] [address] [place] [address] Michael Yanez ANP Acute cystitis without hematuria (Primary Dx) 11/16/2024 Travel 11/10/2024 Telephone [facility] [address] [place] [phone] Michael Yanez ANP Referral 11/10/2024 Population Health Risk Score Community [facility] ([facility]) Department [address] [place] [phone] Provider, Population Health Generic 11/07/2024 Refill [facility] [address] [place] [address] Michael Yanez ANP Primary hypertension; Iron deficiency anemia, unspecified iron deficiency anemia type 10/23/2024 Travel 10/23/2024 Refill [facility] [address] [place] [address] Michael Yanez ANP Arthralgia, unspecified joint (Primary Dx) 10/23/2024 Refill [facility] [address] [place] [address] Michael Yanez ANP from Last 3 Months Immunizations Name Administration [...] Description 02/06/2025 9:45 AM EDT Office Visit [address] [address] 04/13/2025 9:00 AM EDT Office Visit [address] [address] Michael Yanez, ANP [address] [place] [address] 09/28/2025 9:30 AM EST Medication Management [address] [address] Fay Leigh, PharmD [address] [place] [address] Health Maintenance Due Date Last Done Comments [...] Procedure Name Priority Date/Time Associated Diagnosis Comments STREP A NUCLEIC ACID Routine 01/08/2025 9:[address] ABDOMEN PELVIS WO CONTRAST Routine 12/31/2024 11:41 AM EDT BASIC METABOLIC PANEL Routine 12/31/2024 9:30 AM EDT URINALYSIS, COMPLETE, WITH REFLEX TO CULTURE Routine 12/31/2024 9:30 AM EDT CBC WITH AUTO DIFFERENTIAL Routine 12/31/2024 9:30 AM EDT CULTURE, URINE, ROUTINE Routine 12/31/2024 12:00 AM EDT POC VU ID NOW STREP A Routine [...] Recently Relevant to Health Maintenance Results * Strep A Nucleic Acid (01/08/2025 9:03 AM EDT) IDNOW SERIAL# [id number] [facility] Strep A Nucleic Acid Negative Negative [facility] Comment:All test results mus t be correlated with clinical findings.This test has not been evaluated for monitoring treatment ofinfection.Additional follow-up testing using the culture method isrequired if the result is negative and clinical symptomspersist, or in the event of an acute rheumatic feveroutbreak. 01/08/2025 9:03 AM EDT 01/08/2025 9:06 AM EDT us Generic External Data Provider LAB MICROBIOLOGY - GENERAL ORDERABLES Final Result [facility] [address] [place] [phone] * CT Abdomen Pelvis w/o Contrast (12/31/2024 11:41 AM EDT) Anatomical Region Laterality Modality Body, Pelvis, Abdomen Computed T omography 12/31/2024 11:4 1 AM EDT Narrative 12/31/2024 11:43 AM EDT ? [facility] ?[address] ?[place] [address] ? CT Scan Report ? Signed ? Patient: Gladys,Laura ?MR#: [id number] ?? 27 ? : 1965 ?Acct:[id number] ? Age/Sex: 59 / F ?ADM Date: 12/31/24 ? Loc: HO.ED ? Attending Dr: ? Ordering Physician: Marleny Singh NP ?? Date of Service: 12/31/24 ?? Procedure(s): CT abdomen pelvis wo IV con ?? Accession Number(s): [id number] ? cc: Marleny Singh COMSEC MANAGER; MICHAEL YANEZ COMSEC MANAGER ? Report Number: ?? [id number]: Total DLP = ??505.00 mGy-cm ? CLINICAL HISTORY: right flank pain, +uti, eval for pyelo ? CT abdomen and pelvis without contrast ? Comparison: None ? Findings: ?? The lung bases are clear. ? Partial gastrectomy. Left lower abdominal enteroenteric anastomosis. No ?? bowel obstruction. ?? Up to 13 mm dilatation of the extrahepatic bile duct at least partially ?? secondary to the cholecystectomy. ?? 2 mm nonobstructive right renal stone. No hydronephrosis. ?? Mwlh-ac-ujcbkxsm colonic stool. ? Hysterectomy. ?? Appendix not seen and therefore could not be evaluated. ?? The bones are intact. ?? Spinal degenerative changes. ? Atherosclerotic calcifications. ?? Nonspecific small sclerotic focus within the left iliac wing. ?? Spleen, pancreas, adrenals, and liver are unremarkable. ? IMPRESSION: ?? 2 mm nonobstructive right renal stone. No hydronephrosis. ? This document has been electronically signed by: Marium Avendano MD on ?? 12/31/2024 11:41:34 ? Dictated By: ?Marium Avendano MD ? Signed By: ?<Electronically signed by Marium Avendano MD in OV> ? 12/31/24 1142 ? DD/ 1141 ? TD/TT: 12/31/24 1141 ? Embedded Software Architect: ? Procedure Note Frances Montelongo - 12/31/[address] [address] [address] Scan Report Signed Patient: Aleksandar Graham#: [id number] 28 : 1965Acct:[id number] Age/Sex: 59 / FADM Date: 12/31/24 Loc: HO.ED Attending Dr: Ordering Physician: Marleny Singh NP Date of Service: 12/31/24 Procedure(s): CT abdomen pelvis wo IV con Accession Number(s): [id number] cc: Marleny Singh COMSEC MANAGER; MICHAEL YANEZ NP Report Number: [id number]: Total DLP = 505.00 mGy-cm CLINICAL HISTORY: right flank pain, +uti, eval for pyelo CT abdomen and pelvis without contrast Comparison: None Findings: The lung bases are clear. Partial gastrectomy. Left lower abdominal enteroenteric anastomosis. No bowel obstruction. Up to 13 mm dilatation of the extrahepatic bile duct at least partially secondary to the cholecystectomy. 2 mm nonobstructive right renal stone. No hydronephrosis. Fdpc-ul-gffogkdc colonic stool. Hysterectomy. Appendix not seen and therefore could not be evaluated. The bones are intact. Spinal degenerative changes. Atherosclerotic calcifications. Nonspecific small sclerotic focus within the left iliac wing. Spleen, pancreas, adrenals, and liver are unremarkable. IMPRESSION: 2 mm nonobstructive right renal stone. No hydronephrosis. This document has been electronically signed by: Marium Avendano MD on 12/31/2024 11:41:34 Dictated By: Marium Avendano MD Signed By: <Electronically signed by Marium Avendano MD in OV> 12/31/24 1142 DD/ 1141 TD/TT: 12/31/24 1141 Embedded Software Architect: [facility] External Provider IMG CT PROCEDURES Edited Result - Final * (ABNORMAL) Urinalysis, Complete, with Reflex to Culture (12/31/2024 9:30 AM EDT) Only the most recent of2 resultswithin the time period is included. Color Urine Yellow [facility] Appearance Urine Cloudy [facility] PH 8.5 5.0 - 9.0 [facility] Glucose Urine UA Negative Negative mg/dL [facility] Urine Blood Negative Negative [facility] Specific [place] - Urine 1.015 1.005 - 1.025 [facility] Urine Protein Negative Neg-Trace mg/dL [facility] Urine Ketones Negative Negative mg/dL [facility] Nitrite Urine Negative Negative [facility] Leukocyte Esterase Urine Moderate (2+)(A) Negative [facility] RBC Urine 0-2 0 - 2 /HPF [facility] Urine WBC 6-10(A) 0 - 5 /HPF [facility] Urine Squamous Epithelial Cell 0-2 0 - 2 /HPF [facility] Urine Bacteria None Seen None Seen [facility] Hyaline Casts, Urine 0-2 0 - 2 /LPF [facility] 12/31/2024 9:30 AM EDT 12/31/2024 9:33 AM EDT Narrative [facility] - 12/31/2024 9:43 AM EDT [id number], Clean Catch us Generic External Data Provider LAB URINE ORDERAB LES Final Result [facility] [address] [place] [phone] * (ABNORMAL) CBC auto differential (12/31/2024 9:30 AM EDT) White Blood Count 4.5(L) 4.8 - 10.8 X10*3/uL [facility] Red Blood Count 4.43 4.20 - 5.50 X10*6/uL [facility] Hemoglobin 13.0 12.0 - 16.0 g/dl [facility] Hematocrit 39.9 37.0 - 47.0 % [facility] Mean Corpuscular Volume 90.1 80.0 - 98.0 fL [facility] Mean Corpuscular Hemoglobin 29.3 27.0 - 33.0 pg [facility] Mean Corpuscular HGB Conc 32.6 31.0 - 35.0 g/dl [facility] Red Cell Distribution Width 13.5 11.0 - 16.0 % [facility] Platelet Count 269 160 - 400 X10*3/uL [facility] Mean Platelet Volume 8.1(L) 9.4 - 12.3 fL [facility] Neutrophils Percent Auto 34.3(L) 45 - 73 % [facility] Imm Gran Pct Auto 0.2 0.0 - 0.4 % [facility] Lymphocytes Percent Auto 50.4(H) 20 - 40 % [facility] Monocytes Percent Auto 8.2 2 - 11 % [facility] Eosinophils Percent Auto 5.8(H) 0 - 4 % [facility] Basophils Percent Auto 1.1 0 - 2 % [facility] NRBC Pct Auto 0.0 0.0 - 0.2 /100WBC [facility] Neutrophils Absolute Auto 1.5(L) 2.0 - 8.3 x10*3/uL [facility] Imm Gran Abs Auto 0.01 0.00 - 0.03 X10*3/uL [facility] Lymphocytes Absolute Auto 2.3 1.2 - 4.9 X10*3/uL [facility] Monocytes Absolute Auto 0.4 0.1 - 1.2 X10*3/uL [facility] Eosinophils Absolute Auto 0.3 0.0 - 0.4 X10*3/uL [facility] Basophils Absolute Auto 0.1 0.0 - 0.2 X10*3/uL [facility] NRBC Abs Auto 0.000 0.0 - 0.012 X10*3/uL [facility] 12/31/2024 9:30 AM EDT 12/31/2024 9:33 AM EDT us Generic External Data Provider LAB BLOOD ORDERAB LES Final Result [facility] [address] [place] [phone] * (ABNORMAL) Basic Metabolic Panel (12/31/2024 9:30 AM EDT) Sodium 140 135 - 145 mmol/L [facility] Potassium 3.8 3.3 - 5.1 mmol/L [facility] Chloride 111(H) 96 - 108 mmol/L [facility] Carbon Dioxide 21(L) 22 - 29 mmol/L [facility] Anion Gap 12 12 - 20 [facility] Urea Nitrogen (BUN) 11 9 - 16 mg/dL [facility] Creatinine, Serum 0.71 0.5 - 1.4 mg/dL [facility] Creatinine Clr Calc Pharmacy 84.6 [facility] Comment:Provided height and weight: 165.1 cm,69.7 kg.eGFR (calculated from the MDRD study equation) and eCrCl(calculated from the Cockcroft-Gault equation) are based ondifferent parameters and may not yield comparable results.If eCrCl result is absurd, please check patient'sheight/weight. Estimated Glomerular Filt Rate >60 [facility] Comment:Chronic Kidney Disea se: Estimated GFR < 60 mL/min/1.00t4Mklamx Kidney Disease: Estimated GFR < 15 mL/min/1.73m2 Glucose 91 60 - 115 mg/dL [facility] Calcium 8.4 8.4 - 10.2 mg/dL [facility] 12/31/2024 9:30 AM EDT 12/31/2024 9:33 AM EDT us Generic External Data Provider LAB BLOOD ORDERAB LES Final Result [facility] [address] [place] [phone] * Culture, Urine, Routine (12/31/2024 12:00 AM EDT) Only the most recent of3 resultswithin the time period is included. Urine Urine specimen obtained by clean catch procedure / Unknown 12/31/2024 12/31/2024 Comment:UACC Narrative [facility] - 01/01/2025 9:58 AM EDT Urine Culture Report Result Urine Culture < 10,000 cfu/ml Specimen Source: Urine clean catch us Generic External Data Provider LAB MICROBIOLOGY - GENERAL ORDERABLES Final Result Performing Organization Address [facility] Co de Phone Number [facility] [address] [place] [phone] * POCT Rapid Influenza B VU ID NOW (12/11/2024 10:23 AM EDT) Influenza B Negative Negative, Indeterminate [facility] QC Media Lot # [id number] [facility] Lot# Expiration Date [facility] Swab 12/11/2024 10:2 3 AM EDT Marcella Colindres MD POINT OF CARE TEST ENTER /EDIT ORDERABLES Final Result Performing Organization Address [facility] de Phone Number [facility] [address] [place] [phone] * POCT Rapid Influenza A VU ID NOW (12/11/2024 10:23 AM EDT) Influenza A Negative Negative, Indeterminate [facility] QC Media Lot # [id number] [facility] Lot# Expiration Date [facility] Swab 12/11/2024 10:2 3 AM EDT Marcella Colindres MD POINT OF CARE TEST ENTER /EDIT ORDERABLES Final Result Performing Organization Address [facility] Co de Phone Number [facility] [address] [place] [phone] * POCT Rapid Strep A VU ID NOW (12/11/2024 10:23 AM EDT) Rapid Strep A Screen Negative Negative, None Detected QC Media Lot # [id number] Lot# Expiration Date Swab 12/11/2024 10:2 3 AM EDT Marcella Colindres MD POINT OF CARE TEST ENTER /EDIT ORDERABLES Final Result * POCT Rapid Covid-19 BinaxNOW (12/11/2024 10:23 AM EDT) Rapid COVID Ag Negative QC Media Lot # [id number] Lot# Expiration Date 42 Swab 12/11/2024 10:2 3 AM EDT Marcella Colindres MD POINT OF CARE TEST ENTER /EDIT ORDERABLES Final Result * (ABNORMAL) Urinalysis w/reflex microscopic (12/07/2024 10:06 AM EDT) [facility] Color Urine Yellow [facility] Appearance Urine Cloudy [facility] PH 7.0 5.0 - 9.0 [facility] Glucose Urine UA Negative Negative mg/dL [facility] Urine Blood Negative Negative [facility] Specific [place] - Urine 1.020 1.005 - 1.025 [facility] Urine Protein Negative Neg-Trace mg/dL [facility] Urine Ketones Negative Negative mg/dL [facility] Nitrite Urine Negative Negative [facility] Leukocyte Esterase Urine Moderate (2+)(A) Negative [facility] 12/07/2024 10:0 6 AM EDT 12/07/2024 11:43 AM EDT Narrative [facility] - 12/07/2024 11:57 AM EDT Urine, Clean Catch Generic External Data Provider LAB URINE ORDERAB LES Final Result [facility] [address] [place] [phone] * POCT MERY-14 Urine Drug Screen (12/01/2024 11:09 AM EDT) Urine Urine specimen obtained by clean catch procedure / Unknown 12/01/2024 11:09 AM EDT Narrative Kassy Ramsey, ILENE - 12/01/2024 11:09 AM EDT negative AMP, BAR, BUP, BZO, ADOLFO, FTY, MDMA, MET, MOP, MTD, OXY, PCP, TCA, THC. .UTOX cup Lot#[id number] Exp. 04/18/26 Internal Pass Control Michael Yanez ANP POINT OF CARE TEST ENTER/EDIT OR DERABLES Final Result * (ABNORMAL) Lipid Panel, Standard (08/25/2024 10:00 AM EST) Triglycerides 61 <150 mg/dL [facility] Comment:Desirable Triglyceri de: less than 150 mg/dLBorderline High Triglyceride 150-199 mg/dLHigh Triglyceride: 200-499 mg/dLVery High Triglyceride: greater than or equal to 5OO mg/dL Cholesterol 173 <200 mg/dL [facility] Comment:Desirable Cholestero l: less than 200 mg/dLBorderline High Cholesterol: 200-239 mg/dLHigh Cholesterol: greater than 239 mg/dL LDL Cholesterol Calculated 105(H) <100 mg/dL [facility] Comment:Desirable LDL: less than 100 mg/dLNear Optimal/Above Optimal LDL: 110- 129 mg/dLBorderline High LDL: 130-159 mg/dLHigh LDL: 160-189 mg/dLVery High LDL: greater than or equal to 190 mg/dL HDL Cholesterol 56 >40 mg/dL [facility] Comment:Desirable HDL: great er than 40 mg/dL Note: This HDL assay may give artificially low results in patients with liver disease. 08/25/2024 10:0 0 AM EST 08/25/2024 11:37 AM EST us Michael Yanez ANP LAB BLOOD ORDERABLES Final Resul t [facility] [place] [phone] * HIV-1/2 Antigen and Antibodies, Fourth [...] below the limit ofdetection of this assay.The CritiSense HIV Ag/Ab Combo assay result andsupplemental assay results should be interpreted inconjunction with the patient's clinical presentation,history and other laboratory results. If the results areinconsistent with clinical evidence, additional testing issuggested to confirm the result. Blood Venous blood specimen / Unknown 01/04/2024 9:49 AM EDT 01/04/2024 11:50 AM EDT [facility] LAB BLOOD ORDERABLES Final Resul t [facility] [address] [place] [phone] * BI Mammogram Screening Tomosynthesis Bilateral (12/07/2023 9:05 AM EDT) Anatomical Region Laterality Modality Breast Bilateral Mammography 12/07/2023 9:05 AM EDT Narrative 12/13/2023 5:28 AM EDT ? [facility] [place] ? [address] [facility] ?[place] [address] ? Mammography Report ? Signed ? Patient: Gladys,Laura ?MR#: [id number] ?? 27 ? : 1965 ?Acct:[id number] ? Age/Sex: 58 / F ?ADM Date: 04/09/24 ? Loc: HO.MAMMO ? Attending Dr: Michael Yanez NP ? Ordering Physician: Alex Machuca MD ?Results: 1Negativ ?? e ? Date of Service: 12/07/23 ?Follow Up: 1 Year From Orig ?? inal Mammogram ? Procedure(s): MM tomosynthesis screening BI ?? Accession Number(s): [id number] ? cc: MICHAEL YANEZ NP; Alex Machuca [...] MD in OV> ? 12/13/23523 ? DD/ 0905 ? TD/TT: ? Embedded Software Architect: ? Procedure Note Donotuseinterpreter, Image - 12/13/2023 Mar[facility]n [facility] [address] [place] [address] Mammography Report Signed Patient: Aleksandar Graham#: [id number] 28 : 1965Acct:[id number] Age/Sex: 58 / FADM Date: 12/07/23 Loc: HO.MAMMO Attending Dr: Michael Yanez NP Ordering Physician: Alex Mcahuca MDResults: 1Negativ e Date of Service: 12/07/23Follow Up: 1 Year From Orig inal Mammogram Procedure(s): MM tomosynthesis screening BI Accession Number(s): [id number] cc: MICHAEL YANEZ NP; Alex Machuca MD [...] Bebe Hagan MD in OV> 12/13/23523 DD/ 09 TD/TT: Embedded Software Architect: [facility] External Provider IMG BI PROCEDURES Final Result * Hepatitis C Ab (09/09/2022 10:23 AM EST) Hepatitis C Antibody Nonreactive Nonreactive [facility] Comment:Antibodies to HCV no t detected; does not exclude early acuteHCV infection. 09/09/2022 10:2 3 AM EST 09/09/2022 10:23 AM EST [facility] External Provider LAB BLO OD ORDERABLES Final Result Performing Organization Address City/State/[facility] Co de Phone Number [facility] [address] [place] [phone] * Hm Colonoscopy (07/08/2021 12:15 PM EST) Colonoscopy Normal Normal Fidencio Vila MD HEALTH MAINTENANCE Edited Re sult - Final from Last 3 Months or Most Recently Relevant to Health Maintenance Insurance [place] [address] C[place] AD[place] Care Teams Aviation Maintenance Technician Relationship Specialty Start Date End Date Michael Yanez ANP [address] [place] [place] [address] PCP - General Family Medicine 01/16/20
--- OUTSIDE RECORDS SUMMARY | 2025-01-08 09:53 | XMS_ITS | Encounter Summary ---
Author Organization [employer] Address [address] 7t [place] [address] Care Team Providers Care Middle School Professional Name Role Phone Nupur Weir Primary Care Provider [phone] Reason for Visit * Reason Comments Med Refill Encounter Details Date Type Department Care Team ([facility] st Contact Info) Description 12/21/2024 Refill [facility] [address] [place] [address] Nupur Weir ANP 230 [place] [address] Arthralgia, unspecified joint Social History Tobacco Use [...] Description 02/06/2025 9:45 AM EDT Office Visit [address] [address] 04/13/2025 9:00 AM EDT Office Visit [address] [address] Nupur Weir ANP [address] [place] [address] 09/28/2025 9:30 AM EST Medication Management [facility] [address] [place] [address] Fay Leigh, MayoD [address] [place] [address] documented as of this encounter Visit Diagnoses Diagnosis Arthralgia, unspecified joint documented in this encounter Care Teams Middle School Professional Relationship Specialty Start Date End Date Nupur Weir ANP [address] [place] [address] PCP - General Family Medicine 01/16/20 documented as of this encounter
--- OUTSIDE RECORDS SUMMARY | 2025-01-08 09:53 | XMS_ITS | Patient Health Record ---
Author Organization [facility] Address [address] [place] [address] Care Team Providers Care Metal Finish Inspector Name Role Phone MICHAEL YANEZ N.P. Primary Care Provider Fidencio Langley Jr Unavailable [phone] Allergies Allergen (clinical drug ingredient) Drug/Non Drug Allergy documented on EMR Reaction Allergy Type Onset Date Status fentanyl fentaNYL Unknown Drug Allergy Active Results Component Value Reference Range Notes Complete Blood Count Auto Di ff Reviewed date:07/17/2024 08:00:34 AM Interpretation: Performing Lab:[facility], [address] [place] [phone] Notes/Report: White Blood Count 5.3 4.8-10.8 X10*3/uL [...] Panel Reviewed date:07/17/2024 08:00:27 AM Interpretation: Performing Lab:[facility], [address] [place] [phone] Notes/Report: Bilirubin Total 0.7 0.0-1.0 mg/dL Bilirubin Direct 0.3 0.0-0.5 mg/dL Aspartate Amino Transferase 21 5-31 U/L Alanine Aminotransferase 17 0-31 U/L Total Protein 6.4 6.5-8.0 g/dL Albumin Level 3.7 3.5-5.0 g/dL Alkaline Phosphatase 104 39-117 U/L Lipase Reviewed date:07/17/2024 08:00:21 AM Interpretation: Performing Lab:[facility], [address] [place] [phone] Notes/Report: Lipase 14 8-78 U/L Thyroid Stimulating Hormone Reviewed date:07/17/2024 08:00:15 AM Interpretation: Performing Lab:[facility], [address] [place] [phone] Notes/Report: Thyroid Stimulating Hormone 0.97 0.32-4.0 uIU/ [...] Problem Status W/U Status Risk Notes Problem 276127655 Colon cancer screening (Z12.11) Active confirmed Problem 18274003 Rectal bleeding (K62.5) Active confirmed Problem 32972844 Epigastric pain (R10.13) Active confirmed Problem Dysphagia (09284985) Dysphagia (R13.10) Active confirmed Problem 778182668 Elevated LFTs (R79.89) Active confirmed Problem 569438984 Gastroesophageal reflux disease without esophagitis (K21.9) Active confirmed Problem 01087341 Dysphagia, unspecified type (R13.10) Active confirmed Vital Signs Blood pressure diastolic 00 mm Hg 07/14/2024 Height 64.5 in 07/14/2024 Blood pressure systolic 00 mm Hg 07/14/2024 Weight 153 lbs 07/14/2024 BMI 25.85 kg/m2 07/14/2024 Encounters Encounter Location Date Provider Diagnosis [facility] [address] [place] [address] 07/14/2024 Fidencio Vila Jr Abdominal cramping R10.9 [facility] [address] [place] [address] 07/17/2024 Fidencio Vila Jr Assessments Encounter Date [...] LIVER PROFILE 11/11/2022 LIVER PROFILE 07/14/2024 LIPASE 11/30/2022 LIPASE 11/11/2022 LIPASE 07/14/2024 GGT [...] Name:Fidencio Lori haider , 07/11/2025 09:40:00 AM, [address] [place] [address], [address], [place], [address], Insurance Providers Payer Name Payer Address Payer Phone Subscriber Number Group Number Insured Name Patient Relationship to Insured Coverage Start Date Coverage End Date MEDICA[facility] [address] [place] [phone] [id number] TAY TYLER Self - patient is the [...] partial hysterectomy tonsillectomy cancer in uterus [phone] Laparoscopic bypass surgery 11/14 removed two cyst removed fro m right shouder and outer colon =dr. jones
--- OUTSIDE RECORDS SUMMARY | 2025-01-08 09:53 | XMS_ITS | Encounter Summary ---
Author Organization [employer] Address [address] [facility] 7t [place] [address] Care Team Providers Care Gate Watch Name Role Phone Nupur Weir Primary Care Provider [phone] Encounter Details Date Type Department Care Team (Late st Contact Info) Description 04/11/2024 Orders Only [facility] [address] [place] [address] Nupur Weir ANP 230 [place] [address] Social History Tobacco Use Types Packs/Day Years [...] Description 02/06/2025 9:45 AM EDT Office Visit [facility] [address] [place] [address] 04/13/2025 9:00 AM EDT Office Visit [facility] [address] [place] [address] Nupur Weir ANP [address] [place] [address] 09/28/2025 9:30 AM EST Medication Management [facility] [address] [place] [address] Fay Leigh, PharmD [address] [place] [address] documented as of this encounter Visit Diagnoses Not on filedocumented in this encounter Care Teams Gate Watch Relationship Specialty Start Date End Date Nupur Weir ANP [address] [place] [address] PCP - General Family Medicine 01/16/20 documented as of this encounter
--- OUTSIDE RECORDS SUMMARY | 2025-01-08 09:53 | XMS_ITS ---
Author Organization [facility] Address [address] [place] [address] Care Team Providers Care Model Builder Display Name Role Phone MICHAEL YANEZ N.P. Primary Care Provider Fidencio Langley Jr [phone] REASON FOR VISIT labs Encounters Encounter Location Date Provider Diagnosis [facility] [address] [place] [address] 07/17/2024 Fidencio Vila Jr Plan Of Treatment Next Appt Details Provider Name:Fidencio haiedr Jr, 07/11/2025 09:40:00 AM, [address], [address], [place], [address], Progress Notes * TIFFANIE TYLERADOB: 6 (59 yo F)Acc No.[id number]:07/17/2024 Patient:?TAY TYLER :1965???Age:59 Y???Sex:Female Address:[address] [place] [address] * true * Date:? Generated for Taylori caden/Shakila/eTransmitting on:?01/08/2025 09:52 AM EDT
--- OUTSIDE RECORDS SUMMARY | 2025-01-08 09:53 | XMS_ITS | Encounter Summary ---
Author Organization [employer] Address [address] [place] [address] Street 7t [place] [address] Care Team Providers Care Burrer Operator Name Role Phone Nupur Weir Primary Care Provider [phone] Reason for Visit * Reason Onset Date Comments Med Refill 07/26/2024 Encounter Details Date Type Department Care Team ([facility] st Contact Info) Description 07/26/2024 Telephone [facility] [address] [place] [address] Nupur Weir ANP 230 [place] [address] Med Refill Social History Tobacco Use Types [...] 50 MG tablet To be sent to: [id number] [address] [place] [address] AT [facility] documented in this encounter Plan of Treatment Upcoming Encounters Date Type Department Care Team (Late st Contact Info) Description 02/06/2025 9:45 AM EDT Office Visit [facility] [address] [place] [address] 04/13/2025 9:00 AM EDT Office Visit [facility] [address] [place] [address] Nupur Weir, BATOOL [address] [place] [address] 09/28/2025 9:30 AM EST Medication Management [facility] [address] [place] [address] Fay Leigh, Elba [address] [place] [address] documented as of this encounter Visit Diagnoses Not on filedocumented in this encounter Care Teams Burrer Operator Relationship Specialty Start Date End Date Nupur Weir ANP [address] [place] [address] PCP - General Family Medicine 01/16/20 documented as of this encounter
--- OUTSIDE RECORDS SUMMARY | 2025-01-08 09:53 | XMS_ITS | Encounter Summary ---
Author Organization [employer] Address [address] [place] [address] Street 7t [place] [address] Care Team Providers Care Time Study Statistician Name Role Phone Nupur Weir Primary Care Provider [phone] Reason for Visit * Reason Comments Med Refill Encounter Details Date Type Department Care Team ([facility] st Contact Info) Description 11/11/[address] [facility] [address] [place] [address] Nupur Weir ANP 230 [place] [address] Social History Tobacco Use Types Packs/Day Years [...] 9:45 AM EDT Office Visit [facility] [address] [place] [address] 04/13/2025 9:00 AM EDT Office Visit [address] [address] Nupur Weir ANP [address] [place] [address] 09/28/2025 9:30 AM EST Medication Management [address] [address] Fay Leigh, PharmD [address] [place] [address] documented as of this encounter Visit Diagnoses Not on filedocumented in this encounter Care Teams Time Study Statistician Relationship Specialty Start Date End Date Nupur Weir ANP [address] [place] [address] PCP - General Family Medicine 01/16/20 documented as of this encounter
--- OUTSIDE RECORDS SUMMARY | 2025-01-08 09:53 | XMS_ITS | Encounter Summary ---
Author Organization [employer] Address [address] [place] [address] Street 7t [place] [address] Care Team Providers Care Stone Chimney Mason Name Role Phone Nupur Weir Primary Care Provider [phone] Encounter Details Date Type Department Care Team (Late st Contact Info) Description 01/08/2025 Orders Only GENERIC EXTERNAL DATA DEPARTMENT Provider, Generic External Data Social History Tobacco Use Types Packs/Day Years [...] Description 02/06/2025 9:45 AM EDT Office Visit [facility] [address] [place] [address] 04/13/2025 9:00 AM EDT Office Visit [address] [address] Nupur Weir, ANP 230 [place] [address] 09/28/2025 9:30 AM EST Medication Management [address] [address] Fay Leigh, PharmD 230 [place] [address] documented as of this encounter Procedures Procedure Name Priority Date/Time Associated Diagnosis Comments STREP A NUCLEIC ACID Routine 01/08/2025 9:03 AM EDT documented in this encounter Results * Strep A Nucleic Acid (01/08/2025 9:03 AM EDT) [facility] SERIAL# [id number] [facility] Strep A Nucleic Acid Negative Negative [facility] Comment:All test results mus t [...] LAB MICROBIOLOGY - GENERAL ORDERABLES Final Result [facility] [address] [place] [phone] documented in this encounter Visit Diagnoses Not on filedocumented in this encounter Care Teams Stone Chimney Mason Relationship Specialty Start Date End Date Nupur Weir ANP [address] [place] [address] PCP - General Family Medicine 01/16/20 documented as of this encounter
--- OUTSIDE RECORDS SUMMARY | 2025-01-08 09:53 | XMS_ITS ---
Author Organization [facility] Address [address] [place] [address] Care Team Providers Care Distributed Generation Project Manager Name Role Phone MIHCAEL YANEZ N.P. Primary Care Provider Fidencio Langley Jr Unavailable [phone] Allergies Allergen (clinical drug ingredient) Drug/Non Drug [...] 07/14/2024 Encounters Encounter Location Date Provider Diagnosis [facility] [address] [place] [address] 07/14/2024 Fidencio Vila Jr Abdominal cramping R10.9 [...] Name:Fidencio haider Jr, 07/11/2025 09:40:00 AM, [address] [facility], [address], [place], [address], Progress Notes * GREG TYLERFRENCHB: 6 (59 yo F)Acc No.[id number]:07/14/2024 Progress Notes Patient:?TAY TYLER Provider:?Fidencio Vila MD :1965???Age:59 Y???Sex:Female D ate:07/14/2024 Address:[place] [address], [address] [place] [address] [id number] Pcp:MICHAEL YANEZ N.P. Subjective: * Chief Complaints: [...] MD Date:?1 09/13/2023 Generated for Viviane negrete/Shakila/eTransmitting on:?01/08/2025 09:52 AM EDT History and Physical Notes * [...]
--- OUTSIDE RECORDS SUMMARY | 2025-01-08 09:53 | XMS_ITS | Encounter Summary ---
Author Organization [employer] Address [address] [place] [address] 7t [place] [address] Care Team Providers Care Denial Resolution Specialist Name Role Phone Nupur Weir Primary Care Provider [phone] Reason for Visit * Reason Comments Med Refill Encounter Details Date Type Department Care Team ([facility] st Contact Info) Description 09/19/2023 Refill [facility] 230 [place] [address] Nupur Weir ANP 230 [place] [address] Constipation, unspecified constipation type Social History Tobacco [...] 9:45 AM EDT Office Visit [facility] [address] [place] [address] 04/13/2025 9:00 AM EDT Office Visit [address] [address] Nupur Weir ANP [address] [place] [address] 09/28/2025 9:30 AM EST Medication Management [address] [address] Fay Leigh, PharmD [address] [place] [address] documented as of this encounter Visit Diagnoses Diagnosis Constipation, unspecified constipation type documented in this encounter Care Teams Denial Resolution Specialist Relationship Specialty Start Date End Date Nupur Weir ANP [address] [place] [address] PCP - General Family Medicine 01/16/20 documented as of this encounter
--- OUTSIDE RECORDS SUMMARY | 2025-01-08 09:53 | XMS_ITS | Encounter Summary ---
Author Organization [employer] [facility] Address [address] [place] [address] 7 [place] [address] Care Team Providers Care Exhaust Emissions Inspector Name Role Phone Nupur Weir Primary Care Provider [phone] Encounter Details Date Type Department Care Team (Latest Contact Info) Description 03/26/2022 Abstract [facility] Dental, Provider, DDS Social History [...] Description 02/06/2025 9:45 AM EDT Office Visit [facility] [address] [place] [address] 04/13/2025 9:00 AM EDT Office Visit [facility] [address] [place] [address] Nupur Weir ANP 230 [place] [address] 09/28/2025 9:30 AM EST Medication Management [facility] [address] [place] [address] Fay Leigh, PharmD [address] [place] [address] documented as of this encounter Visit Diagnoses Not on filedocumented in this encounter Care Teams Exhaust Emissions Inspector Relationship Specialty Start Date End Date Nupur Weir ANP 230 [place] [address] PCP - General Family Medicine 01/16/20 documented as of this encounter
--- OUTSIDE RECORDS SUMMARY | 2025-01-08 09:53 | XMS_ITS | Encounter Summary ---
Author Organization [employer] Address [address] 7t [place] [address] Care Team Providers Care Special Education Para Professional Name Role Phone Nupur Weir Primary Care Provider [phone] Reason for Visit * Reason Comments Med Refill Encounter Details Date Type Department Care Team ([facility] st Contact Info) Description 03/22/2024 Refill [facility] 230 [place] [address] Marcella Colindres MD 230 [place] [address] Acute pyelonephritis Social History Tobacco Use Types [...] Description 02/06/2025 9:45 AM EDT Office Visit [facility] [address] [place] [address] 04/13/2025 9:00 AM EDT Office Visit [address] [address] Nupur Weir ANP [address] [place] [address] 09/28/2025 9:30 AM EST Medication Management [address] [address] Fay Leigh, PharmD [address] [place] [address] documented as of this encounter Visit Diagnoses Diagnosis Acute pyelonephritis 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 documented in this encounter Care Teams Special Education Para Professional Relationship Specialty Start Date End Date Nupur Weir ANP [address] [place] [address] PCP - General Family Medicine 01/16/20 documented as of this encounter
--- OUTSIDE RECORDS SUMMARY | 2025-01-08 09:53 | XMS_ITS | Encounter Summary ---
Author Organization [employer] [facility] Address [address] [place] [address] 7 [place] [address] Care Team Providers Care Traffic Court Magistrate Name Role Phone Nupur Weir Primary Care Provider [phone] Encounter Details Date Type Department Care Team (Late st Contact Info) Description 07/30/2022 Abstract [facility] [address] [place] [address] Dental, Provider, DDS Social History Tobacco Use [...] 9:45 AM EDT Office Visit [facility] [address] [place] [address] 04/13/2025 9:00 AM EDT Office Visit [facility] [address] [place] [address] Nupur Weir ANP 230 [place] [address] 09/28/2025 9:30 AM EST Medication Management [facility] [address] [place] [address] Fay Leigh, PharmD [address] [place] [address] documented as of this encounter Procedures Procedure [...] on filedocumented in this encounter Care Teams Traffic Court Magistrate Relationship Specialty Start Date End Date Nupur Weir ANP [address] [place] [address] PCP - General Family Medicine 01/16/20 documented as of this encounter
--- OUTSIDE RECORDS SUMMARY | 2025-01-08 09:53 | XMS_ITS | Encounter Summary ---
Author Organization [email or web address] Address [address] [place] [address] 7t [place] [address] Care Team Providers Care Enterprise Software Developer Name Role Phone Nupur Weir Primary Care Provider [phone] Reason for Visit * Reason Onset Date Comments Med Refill 10/01/2023 Encounter Details Date Type Department Care Team ([facility] st Contact Info) Description 10/01/2023 Telephone [facility] 230 [place] [address] Nupur Weir ANP 230 [place] [address] Med Refill Social History Tobacco Use Types [...] Base) MCG/ACT inhaler To be sent to: [id number] - [place], [place] - [address] [facility] documented in this encounter Plan of Treatment Upcoming Encounters Date Type Department Care Team (Late st Contact Info) Description 02/06/2025 9:45 AM EDT Office Visit [facility] [address] [place] [address] 04/13/2025 9:00 AM EDT Office Visit [facility] [address] [place] [address] Nupur Weir ANP 230 [place] [address] 09/28/2025 9:30 AM EST Medication Management [facility] [address] [place] [address] Fay Leigh, MayoD [address] [place] [address] documented as of this encounter Visit Diagnoses Not on filedocumented in this encounter Care Teams Enterprise Software Developer Relationship Specialty Start Date End Date Nupur Weir ANP 230 [place] [address] PCP - General Family Medicine 01/16/20 documented as of this encounter
--- OUTSIDE RECORDS SUMMARY | 2025-01-08 09:53 | XMS_ITS | Encounter Summary ---
Author Organization [employer] Address [address] [place] [address] 7 [place] [address] Care Team Providers Care Power System Electrical Engineer Name Role Phone Nupur Weir Primary Care Provider [phone] Encounter Details Date Type Department Care Team (Late st Contact Info) Description 08/14/2022 Abstract [facility] [address] [place] [address] Angel Lagos DMD 230 [place] [address] Social History Tobacco Use Types Packs/Day Years [...] Description 02/06/2025 9:45 AM EDT Office Visit [facility] [address] [place] [address] 04/13/2025 9:00 AM EDT Office Visit [facility] [address] [place] [address] Nupur Weir ANP [address] [place] [address] 09/28/2025 9:30 AM EST Medication Management [facility] [address] [place] [address] Fay Leigh, MayoD 230 [place] [address] documented as of this encounter Visit Diagnoses Not on filedocumented in this encounter Care Teams Power System Electrical Engineer Relationship Specialty Start Date End Date Nupur Weir ANP [address] [place] [address] PCP - General Family Medicine 01/16/20 documented as of this encounter
--- OUTSIDE RECORDS SUMMARY | 2025-01-08 09:53 | XMS_ITS | Encounter Summary ---
Author Organization [employer] Address [address] [place] [address] Street 7t [place] [address] Care Team Providers Care Cell Technician Name Role Phone Nupur Weir Primary Care Provider [phone] Reason for Visit * Reason Comments Med Refill Encounter Details Date Type Department Care Team ([facility] Contact Info) Description 06/19/2024 Refill [facility] 230 [place] [address] Nupur Weir ANP [address] [place] [address] Other specified hypothyroidism Social History Tobacco Use [...] Description 02/06/2025 9:45 AM EDT Office Visit [address] [address] 04/13/2025 9:00 AM EDT Office Visit [address] [address] Nupur Weir ANP [address] [place] [address] 09/28/2025 9:30 AM EST Medication Management [address] [address] Fay Leigh, PharmD [address] [place] [address] documented as of this encounter Visit Diagnoses Diagnosis Other specified hypothyroidism documented in this encounter Care Teams Cell Technician Relationship Specialty Start Date End Date Nupur Weir ANP [address] [place] [address] PCP - General Family Medicine 01/16/20 documented as of this encounter
--- OUTSIDE RECORDS SUMMARY | 2025-01-08 09:53 | XMS_ITS | Encounter Summary ---
Author Organization [employer] Address [address] 7[address] [place] [address] Care Team Providers Care Regulatory Coordinator Name Role Phone Nupur Weir Primary Care Provider [phone] Reason for Visit * Reason Comments Med Refill Encounter Details Date Type Department Care Team ([facility] st Contact Info) Description 02/11/2024 Refill [facility] [address] [place] [address] Nupur Weir ANP 230 [place] [address] Social History Tobacco Use Types Packs/Day Years [...] Description 02/06/2025 9:45 AM EDT Office Visit [facility] [address] [place] [address] 04/13/2025 9:00 AM EDT Office Visit [address] [address] Nupur Weir ANP [address] [place] [address] 09/28/2025 9:30 AM EST Medication Management [address] [address] Fay Leigh, PharmD [address] [place] [address] documented as of this encounter Visit Diagnoses Not on filedocumented in this encounter Care Teams Regulatory Coordinator Relationship Specialty Start Date End Date Nupur Weir ANP [address] [place] [phone] PCP - General Family Medicine 01/16/20 documented as of this encounter
--- OUTSIDE RECORDS SUMMARY | 2025-01-08 09:53 | XMS_ITS | Encounter Summary ---
Author Organization [employer] Address [address] 7t [place] [address] Care Team Providers Care Service Operations Manager Name Role Phone Nupur Weir Primary Care Provider [phone] Reason for Visit * Reason Comments Med Refill Encounter Details Date Type Department Care Team ([facility] Contact Info) Description 07/22/2024 Refill [facility] 230 [place] [address] Nupur Weir ANP 230 [place] [address] Social History Tobacco Use Types Packs/Day Years [...] Description 02/06/2025 9:45 AM EDT Office Visit [facility] [address] [place] [phone] 04/13/2025 9:00 AM EDT Office Visit [facility] [address] [place] [address] Nupur Weir ANP [address] [place] [address] 09/28/2025 9:30 AM EST Medication Management [facility] [address] [place] [address] Fay Leigh, PharmD [address] [place] [address] documented as of this encounter Visit Diagnoses Not on filedocumented in this encounter Care Teams Service Operations Manager Relationship Specialty Start Date End Date Nupur Weir ANP [address] [place] [address] PCP - General Family Medicine 01/16/20 documented as of this encounter
--- OUTSIDE RECORDS SUMMARY | 2025-01-08 09:53 | XMS_ITS | Encounter Summary ---
Author Organization [employer] Address [address] [place] [address] 7t [place] [address] Care Team Providers Care Scrap Drop Engineer Name Role Phone Nupur Weir Primary Care Provider [phone] Reason for Visit * Reason Onset Date Comments Appointment Request 11/30/2024 Encounter Details Date Type Department Care Team ([facility] st Contact Info) Description 11/30/[address] [facility] 230 [place] [address] Nupur Weir ANP 230 [place] [address] Appointment Request Social History Tobacco Use Types [...] EDT Tc from pt requesting to r/s VEGETABLE INSPECTOR appt. States has another appt around the same time at sleep medicine and pt informs takes bus and believes will not be able to make it on time. Would like to r/s for Wednesday. documented in this encounter Plan of Treatment Upcoming Encounters Date Type Department Care Team (Late st Contact Info) Description 02/06/2025 9:45 AM EDT Office Visit [facility] [address] [place] [address] 04/13/2025 9:00 AM EDT Office Visit [facility] [address] [place] [address] Nupur Weir ANP 230 [place] [address] 09/28/2025 9:30 AM EST Medication Management [facility] 230 [place] [address] Fay Leigh, Elba 230 [place] [address] documented as of this encounter Visit Diagnoses Not on filedocumented in this encounter Care Teams Scrap Drop Engineer Relationship Specialty Start Date End Date Nupur Weir ANP 230 [place] [address] PCP - General Family Medicine 01/16/20 documented as of this encounter
--- OUTSIDE RECORDS SUMMARY | 2025-01-08 09:53 | XMS_ITS | Encounter Summary ---
Author Organization [employer] Address [address] 7t [place] [address] Care Team Providers Care Dry End Tester Name Role Phone Nupur Weir Primary Care Provider [phone] Reason for Visit * Reason Comments Med Refill Encounter Details Date Type Department Care Team ([facility] st Contact Info) Description 02/11/2024 Refill [facility] 230 [place] [address] Marcella Colindres MD 230 [place] [address] Gastritis medicamentosa Social History Tobacco Use Types [...] EDT Office Visit [facility] [address] [place] [address] 04/13/2025 9:00 AM EDT Office Visit [address] [address] Nupur Weir ANP [address] [place] [address] 09/28/2025 9:30 AM EST Medication Management [address] [address] Fay Leigh, PharmD [address] [place] [address] documented as of this encounter Visit Diagnoses Diagnosis Gastritis medicamentosa Other specified gastritis without mention of hemorrhage documented in this encounter Care Teams Dry End Tester Relationship Specialty Start Date End Date Nupur Weir ANP [address] [place] [address] PCP - General Family Medicine 01/16/20 documented as of this encounter
--- OUTSIDE RECORDS SUMMARY | 2025-01-08 09:53 | XMS_ITS | Encounter Summary ---
Author Organization [employer] Address [address] 7t [place] [address] Care Team Providers Care Machine Design Checker Name Role Phone Nupur Weir Primary Care Provider Encounter Details Date Type Department Care Team (Late st Contact Info) Description 07/05/2024 Telephone [facility] 230 [place] [address] Yarelis Rosales DDS 230 [place] [address] Social History Tobacco Use Types Packs/Day Years [...] Shameka Simons - 07/05/2024 10:56 AM EST Hi doctor flip Patient called she went her pharmacy and her medication was not there. Can we send her prescriptions to her pharmacy thank you . documented in this encounter Plan of Treatment Upcoming Encounters Date Type Department Care Team (Late st Contact Info) Description 02/06/2025 9:45 AM EDT Office Visit [facility] [address] [place] [address] 04/13/2025 9:00 AM EDT Office Visit [facility] [address] [place] [address] Nupur Weir ANP [address] [place] [address] 09/28/2025 9:30 AM EST Medication Management [facility] [address] [place] [address] Fay Leigh, MayoD [address] [place] [address] documented as of this encounter Visit Diagnoses Not on filedocumented in this encounter Care Teams Machine Design Checker Relationship Specialty Start Date End Date Nupur Weir ANP 230 [place] [address] PCP - General Family Medicine 01/16/20 documented as of this encounter
--- OUTSIDE RECORDS SUMMARY | 2025-01-08 09:53 | XMS_ITS | Encounter Summary ---
Author Organization [employer] Address [address] [place] [address] 7t [place] [address] Care Team Providers Care Accredited Legal Secretary Name Role Phone Nupur Weir Primary Care Provider [phone] Reason for Visit * Reason Onset Date Comments Med Refill 05/14/2023 Encounter Details Date Type Department Care Team ([facility] st Contact Info) Description 05/14/2023 Telephone [facility] [address] [place] [address] Nupur Weir ANP 230 [place] [address] Med Refill Social History Tobacco Use Types [...] Description 02/06/2025 9:45 AM EDT Office Visit [address] [address] 04/13/2025 9:00 AM EDT Office Visit [address] [address] Nupur Weir ANP [address] [place] [address] 09/28/2025 9:30 AM EST Medication Management [address] [address] Fay Leigh PharmD [address] [place] [address] documented as of this encounter Visit Diagnoses Not on filedocumented in this encounter Care Teams Accredited Legal Secretary Relationship Specialty Start Date End Date Nupur Weir ANP [address] [place] [address] PCP - General Family Medicine 01/16/20 documented as of this encounter
--- OUTSIDE RECORDS SUMMARY | 2025-01-08 09:53 | XMS_ITS | Encounter Summary ---
Author Organization [employer] Address [address] [place] [address] Street 7t [place] [address] Care Team Providers Care Strip Mill Operator Name Role Phone Nupur Weir Primary Care Provider [phone] Reason for Visit * Reason Onset Date Comments rs no show appt 11/30/2024 Encounter Details Date Type Department Care Team ([facility] st Contact Info) Description 11/30/2024 Telephone [facility] [address] [place] [address] Taty Laura [address] [place] [address] rs no show appt Social History Tobacco [...] Description 02/06/2025 9:45 AM EDT Office Visit [facility] [address] [place] [phone] 04/13/2025 9:00 AM EDT Office Visit [address] [address] Nupur Weir, BATOOL 230 [place] [address] 09/28/2025 9:30 AM EST Medication Management [address] [address] Fay Leigh, Elba 230 [place] [address] documented as of this encounter Visit Diagnoses Not on filedocumented in this encounter Care Teams Strip Mill Operator Relationship Specialty Start Date End Date Nupur Weir ANP 230 [place] [address] PCP - General Family Medicine 01/16/20 documented as of this encounter
[2025-01-08 10:08] LABS: Influenza A PCR NEGATIVE (Negative); Influenza B PCR NEGATIVE (Negative); Resp Syncy Virus RNA Qual PCR NEGATIVE (Negative); SARS COV2 PCR INHOUSE NEGATIVE (Negative)
--- NOTE | 2025-01-08 10:11 | ED_ITS ---
HPI - General Adult General Chief complaint: General Medical Stated complaint: ? FB in Throat Headache Time Seen by Provider: 01/08/25 09:46 Source: patient Mode of arrival: ambulatory Limitations: no limitations History of Present Illness ED Provider: Fifi Be PA-C HPI narrative: 59-year-old female presents to the ER for evaluation of sore throat, foreign body sensation in the throat. Throat pain with associated headache and ear pain x 3 days. Reports fever overnight. States she takes multiple medications and feels as though one of her pills could have caused the sensation, however she remains able to drink fluids, and have broth and soft foods. Reports feeling irritation, without coughing or choking. Denies any recent sick contacts, difficulty breathing, no N/V/D. Has been taking in normal PO medications as well. MD complaint: sore throat Onset (ago): day(s) Location: mouth (throat ) Radiation: non-radiation Pain Consistency: intermittent Exacerbating factors: eating Associated symptoms: denies other symptoms Treatments prior to arrival: none Related Data Home Medications ?Medication ?Instructions ?Recorded ?Confirmed cyanocobalamin (vitamin B-12) 1,000 mcg PO DAILY 07/05/20 07/13/24 1,000 mcg capsule diltiazem HCl 180 mg 180 mg PO DAILY 11/24/21 07/13/24 capsule,extended release 24 hr fluticasone propionate 110 1 puff PO BID 11/24/21 07/13/24 mcg/actuation HFA aerosol inhaler (Flovent HFA) pantoprazole 40 mg tablet,delayed 40 mg PO DAILY 11/24/21 07/13/24 release cholecalciferol (vitamin D3) 50 2,000 unit PO DAILY 11/26/21 07/13/24 mcg (2,000 unit) capsule losartan 50 mg tablet 50 mg PO DAILY blood pressure 11/24/22 07/13/24 levothyroxine 25 mcg tablet 25 mcg PO DAILY 01/08/23 07/13/24 riboflavin (vitamin B2) 100 mg 200 mg PO BID 01/08/23 07/13/24 tablet (Vitamin B-2) topiramate 50 mg tablet 100 mg PO BID 01/08/23 07/13/24 cetirizine 10 mg tablet 10 mg PO DAILY PRN itch 07/24/24 Previous Rx's ?Medication ?Instructions ?Recorded lidocaine 5 % topical patch 1 patch topical DAILY #15 ea 03/07/23 (Lidoderm) gabapentin 100 mg capsule 100 mg PO TID #270 caps 12/06/23 docusate sodium 100 mg capsule 100 mg PO BID #30 caps 05/12/24 (Colace) ibuprofen 600 mg tablet 600 mg PO Q6-8H PRN pain (scale 06/08/24 score 1-3) #20 tabs ibuprofen 200 mg tablet 200 mg PO TID PRN pain #10 tabs 06/14/24 cyclobenzaprine 10 mg tablet 10 mg PO TID PRN muscle spasm #10 08/30/24 tabs lidocaine 5 % topical patch 1 patch topical DAILY #15 ea 08/30/24 solifenacin 5 mg tablet (Vesicare) 5 mg PO DAILY 30 days #30 tabs 12/13/24 pyridoxine (vitamin B6) 100 mg 100 mg PO DAILY 90 days #90 tabs 12/22/24 tablet linezolid 600 mg tablet (Zyvox) 600 mg PO BID 7 days #14 tabs 12/26/24 phenazopyridine 200 mg tablet 200 mg PO TID 6 doses #6 tabs 12/31/24 (Pyridium) Allergies Allergy/AdvReac Type Severity Reaction Status Date / Time ondansetron [From ZOFRAN] Allergy Unknown per H&P Verified 01/08/25 08:57 sumatriptan [From IMITREX] Allergy Unknown RASH FROM Verified 01/08/25 08:57 TABLET NOT INJECTION promethazine [From PHENERGAN] AdvReac Severe DYSTONIA Verified 01/08/25 08:57 [facility] Past Medical History Medical History Well woman exam Epidermal cyst Migraine HTN (hypertension) IBS (irritable bowel syndrome) GERD (gastroesophageal reflux disease) Chronic interstitial cystitis Sleep apnea Asthma Anemia Hypercholesteremia Depression Anxiety Sacrococcygeal pilonidal cyst Recurrent UTI Goiter Flank pain Dysuria Hypercalciuria Swelling of joint, ankle, right Swelling of right foot Vitamin D deficiency Hypothyroidism Right patella fracture History of secondary hyperparathyroidism Abnormal mammogram Surgical History History of removal of cyst (~05/12/24) History of bladder surgery H/O bilateral salpingo-oophorectomy S/P gastric bypass H/O left breast biopsy H/O: hysterectomy History of bilateral tubal ligation History of appendectomy Family History Family History Mother Uterine cancer Father No problems noted. Social History Social History Household Members Other:: son Housing: Apartment Are you a primary healthcare business analyst to a significant other at home: No Do you presently have visiting nurse or other home services: No Alcohol intake: never Comment: counts correct Patient Tobacco Use Status: Never used Tobacco Smoked in Last 30 Days: No Second Hand Smoke Exposure: No Use of substances other than those prescribed or required for medical reasons: No Advance Directives: Yes Advance Directives on File: Yes Advance Directives Date on File: 12/29/22 Do you have a plan to hurt others: No Plan Current occupational status: disabled 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 Oriented X3. No acute distress. Head: normocephalic, atraumatic. Eyes: Pupils equal, round and reactive to light. ENT: Pharynx with moderate generalized erythema posteriorly. No tonsillar swelling or exudate. voice is normal. superior aspect of the left tympanic membrane with mild erythema, remainder of the tympanic membrane is normal without any bulging or perforation. Right TM is normal. Neck: Normal inspection. Neck supple. No palpable masses or lymphadenopathy. CVS: Normal heart rate and rhythm. Pulses normal. Respiratory: No respiratory distress. Breath sounds normal. Abdomen: Soft and nontender. +BS x4 Skin: Skin warm and dry. Normal skin color. Normal skin turgor. No rashes. Extremities: No lower extremity edema. No joint swelling. Neuro/psych: Oriented X 3. Sounds grossly normal, nonfocal Normal speech and cognition. Medications Administered Discontinued Medications Generic Name Dose Route Start Last Admin Trade Name Nancy PRN Reason Stop Dose Admin Lidocaine HCl 15 ml 01/08/25 10:23 01/08/25 10:35 Lidocaine Hcl Viscous 2 % 15 Ml Solution MUCOUS MEM 01/08/25 10:24 15 ml ONCE ONE Administration Medical Decision Making Medical Decision Making [facility] Narrative: 59 yo female presenting with throat pain with associated headache and ear pain x 3 days. Complaints are primarily related to throat pain and irritation, FB sensation in the throat. she is tolerating PO intake, no vomiting. No tonsillitis on exam, her neck is supple. voice is normal. Likely viral URI. low suspicion for thyroiditis, foreign body, obstruction. Safe for discharge home. Differential Diagnosis Differential Diagnoses: The differential diagnosis associated with the presentation includes viral infection, bacterial infection, GERD, pill esophagitis, foreign body, allergic rhinitis with post nasal drip, thyroiditis Lab Data [facility] Lab Attestation statement: I reviewed the patient's lab results. Labs: Lab Results 01/08/25 Range/Units 09:03 Influenza Type A (PCR) NEGATIVE (Negative) Influenza Type B (PCR) NEGATIVE (Negative) RSV RNA Qual (PCR) NEGATIVE (Negative) SARS-CoV-2 RNA (RT-PCR) NEGATIVE (Negative) S. pyogenes GrpA KIMBERLEY Negative (Negative) External Record Review External record reviewed: Outpatient record, Prior outpatient labs and Prior outpatient radiology Tests considered The following testing was considered but not selected: Considered x-ray of the soft tissue of the neck however low yield and low suspicion for esophageal obstruction Prescription Management I considered prescription management with: Pain Medication and Antibiotic Critical Care Time Critical Care Time Critical Care Time: No Discharge Plan Discharge Clinical Impression: Pharyngitis Patient Disposition: Home, Self-Care Instructions: Pharyngitis (ED) Additional Instructions: you tested negative for strep throat, COVID, flu, RSV. Your symptoms most likely due to another viral process. drink plenty of fluids. Stick to easy to swallow foods like soup, applesauce, pudding. slowly advanced as tolerated. If you are still having issues swallowing, call Dr. Vila with the GI office for further evaluation and treatment recommend [id number] Cepacol lozenges or Chloraseptic spray to help with throat pain and sore throat take Motrin & Tylenol as needed for pain If you develop new or worsening symptoms call 911 or come back to the ER for further evaluation. Prescriptions: No Action cyanocobalamin (vitamin B-12) 1,000 mcg capsule 1,000 mcg PO DAILY cholecalciferol (vitamin D3) 50 mcg (2,000 unit) capsule 2,000 unit PO DAILY gabapentin 100 mg capsule 100 mg PO TID Qty: 270 3RF docusate sodium [Colace] 100 mg capsule 100 mg PO BID Qty: 30 0RF solifenacin [Vesicare] 5 mg tablet 5 mg PO DAILY 30 Days Qty: 30 1RF pyridoxine (vitamin B6) 100 mg tablet 100 mg PO DAILY 90 Days Qty: 90 0RF linezolid [Zyvox] 600 mg tablet 600 mg PO BID 7 Days Qty: 14 0RF ibuprofen 600 mg tablet 600 mg PO Q6-8H PRN (Reason: pain (scale score 1-3)) Qty: 20 0RF phenazopyridine [Pyridium] 200 mg tablet 200 mg PO TID Qty: 6 0RF lidocaine [Lidoderm] 5 % adhesive patch,medicated 1 patch topical DAILY Qty: 15 0RF Rx Instructions: leave on most painful area for up to 12 hrs cyclobenzaprine 10 mg tablet 10 mg PO TID PRN (Reason: muscle spasm) Qty: 10 0RF lidocaine 5 % adhesive patch,medicated 1 patch topical DAILY Qty: 15 0RF Rx Instructions: leave on most painful area for up to 12 hrs pantoprazole 40 mg tablet,delayed release (DR/EC) 40 mg PO DAILY diltiazem HCl 180 mg capsule,extended release 24hr 180 mg PO DAILY Flovent HFA 110 mcg/actuation HFA aerosol inhaler 1 puff PO BID losartan 50 mg tablet 50 mg PO DAILY levothyroxine 25 mcg tablet 25 mcg PO DAILY topiramate 50 mg tablet 100 mg PO BID riboflavin (vitamin B2) [Vitamin B-2] 100 mg tablet 200 mg PO BID ibuprofen 200 mg tablet 200 mg PO TID PRN (Reason: pain) Qty: 10 0RF cetirizine 10 mg tablet 10 mg PO DAILY PRN (Reason: itch) Referrals: [facility] [Provider Group] Nupur Weir NP [Primary Care Provider] - Interventions: ED Discharge Assessment Last Done: 01/08/25 11:14 Discharge Date/Time: 01/08/25 11:17 Print Language: Korean
[2025-01-08 10:25] VITALS: BP 111/71; PULSE 66; RESP 14
[2025-01-08] MEDS: Lidocaine HCl Viscous 2 % 15 ML SOLUTION MUCOUS MEM (10:35)
--- NOTE | 2025-01-08 10:40 | PC.NURSE ---
pt is alert and oriented, skin appropriate for ethnicity, respirations even and unlabored, pt reports for the last 3 days feels like her pill is stuck in her throat, pt is able swallow water and handling her secretions with out any difficulties but solids give her pain and that feeling of something being stuck, speaking in clear and full sentences and airway is patent
[2025-01-08 11:14] VITALS: BP 111/71; PULSE 66; RESP 14; TEMP 36.8; O2SAT 97
== END 2025-01-08 11:17 | disposition home or self-care (01) ==
PROVIDERS: Emergency Provider Emergency Medicine Emergency Medical Services; PCP Nurse Practitioner Primary Care
DX: J02.9 Acute pharyngitis, unspecified (principal); R51.9 Headache, unspecified; I10 Essential (primary) hypertension; E78.00 Pure hypercholesterolemia, unspecified; J45.909 Unspecified asthma, uncomplicated; Z03.818 Encounter for observation for suspected exposure to other biological agents ruled out; Z79.899 Other long term (current) drug therapy
CPT/HCPCS: 0241U; 87651; 99283; 99284

== ENCOUNTER 2025-02-05 12:22 | Outpatient (REF) | payer MEDICAID, SELFPAY ==
--- OUTSIDE RECORDS SUMMARY | 2025-02-05 14:02 | XMS_ITS | Encounter Summary ---
Author Organization [employer] Address [address] 7t [place] [address] Care Team Providers Care Cable Tower Operator Name Role Phone Nupur Weir Primary Care Provider [phone] Reason for Visit * Reason Comments Med Refill Encounter Details Date Type Department Care Team ([facility] st Contact Info) Description 11/07/2024 Refill [facility] [address] [place] [address] Nupur Weir ANP [address] [place] [address] Primary hypertension; Iron deficiency anemia, unspecified iron [...] got money to buy more: Sometimes True 11/22/ 2024 Within the past 12 months,th e food [...] the past 12 months, has t he [employer], [employer], oil or water [employer] threatened to shut off services in your [...] Description 02/06/2025 9:45 AM EDT Office Visit [facility] [address] [place] [address] 04/13/2025 9:00 AM EDT Office Visit [facility] [address] [place] [address] Nupur Weir ANP [address] [place] [address] 09/28/2025 9:30 AM EST Medication Management [facility] [address] [place] [address] Fay Leigh, MayoD [address] [place] [address] documented as of this encounter Visit Diagnoses Diagnosis Primary hypertension Unspecified essential hypertension Iron deficiency anemia, unspecified iron deficiency anemia type documented in this encounter Care Teams Cable Tower Operator Relationship Specialty Start Date End Date Nupur Weir ANP [address] [place] [address] PCP - General Family Medicine 01/16/20 documented as of this encounter
== END 2025-02-05 12:23 | disposition home or self-care (01) ==
LOC: HO.MAMMO 12:22
PROVIDERS: PCP Nurse Practitioner Primary Care; Visit Provider Obstetrics & Gynecology
DX: Z12.31 Encounter for screening mammogram for malignant neoplasm of breast (principal)
CPT/HCPCS: 77063; 77067

== ENCOUNTER → 2025-02-05 12:30 | Outpatient (BNV) | payer MEDICAID, SELFPAY | PROVIDERS: PCP Nurse Practitioner Primary Care; Visit Provider Internal Medicine | DX: Z12.31 Encounter for screening mammogram for malignant neoplasm of breast (principal) | CPT/HCPCS: 77063; 77067 ==

== ENCOUNTER 2025-02-21 09:38 | Outpatient (AMB) | payer MEDICAID, SELFPAY ==
--- NOTE | 2025-02-21 09:41 | MHC.OFFVIS ---
Vital Signs 02/21/25 09:45 Height 5 ft 5.04 in Weight 152 lb 1.903 oz BMI 25.3 BP 92/58 L Blood Pressure Location Lt brachial Position Sitting Pulse 66 Pulse Source Pulse Oximeter Intake Visit Reasons: Osteoporosis Intake Note: Patient presents today for Osteoporosis follow up visit. Head Of Marketing Analytics Required: Yes Head Of Marketing Analytics Language: City [employer] Services: Head Of Marketing Analytics Present Head Of Marketing Analytics [place] [facility] [place] Information Interpreted: non-clinical & clinical Accompanied by: Self / Same As Patient Allergies ondansetron (From ZOFRAN) Allergy (Unknown, Verified 02/21/25 09:54) per H&P sumatriptan (From IMITREX) Allergy (Unknown, Verified 02/21/25 09:54) RASH FROM TABLET NOT INJECTION promethazine (From PHENERGAN) Adverse Reaction (Severe, Verified 02/21/25 09:54) DYSTONIA Medication List - Last Reconciled 02/21/25 by Allen Trinidad MD cetirizine 10 mg PO DAILY PRN cholecalciferol (vitamin D3) 2,000 units PO DAILY cyanocobalamin (vitamin B-12) 1,000 mcg PO DAILY cyclobenzaprine 10 mg PO TID PRN diltiazem HCl CD 180 mg PO DAILY docusate sodium (Colace) 100 mg PO BID fluticasone propionate 110 mcg/actuation (Flovent HFA) 1 puff PO BID gabapentin 100 mg PO TID ibuprofen 600 mg PO Q6-8H PRN ibuprofen 200 mg PO TID PRN levothyroxine 25 mcg PO DAILY lidocaine 5% (Lidoderm) 1 patch topical DAILY lidocaine 5% 1 patch topical DAILY linezolid (Zyvox) 600 mg PO BID 7 days losartan 50 mg PO DAILY pantoprazole 40 mg PO DAILY phenazopyridine (Pyridium) 200 mg PO TID 6 doses pyridoxine (vitamin B6) 100 mg PO DAILY 90 days riboflavin (vitamin B2) (Vitamin B-2) 200 mg PO BID solifenacin (Vesicare) 5 mg PO DAILY 30 days topiramate 100 mg PO BID HPI Comments Details: 60 YO [Female] with PMHx of partial gastrectomy and reported secondary hyperpara is seen in consultation at the request of PCP for Osteoporosis. First diagnosed in 1 yr ago . Never Received treatment in the past No history of pathologic fracture or ONJ. Hx of fx of knee right 1 1/2 yrs ago Has servings of dietary calcium per day in the form of [].Does not Takes Calcium supplement mg daily in divided doses. Takes 2000 IU of Vitamin D daily. Takes PPI, anticoagulant, takes antiepileptic Topramax or glucocorticoid medication. Not Does weight bearing exercise Fracture history: as above Height loss: No [employer] history: 2012 -2013 BERNIE -BSO ? Has history of Kidney stones: Denies family history of Osteoporosis or hip fracture. UTD on dental cleanings and sees dentist every 6 months. Has planned upcoming dental work for broken teet or extractions. DXA dated :FINDINGS: LEFT FEMUR, NECK: Current: BMD 0.749 g/cm2, Z-score -1.1, T-score -2.1, osteopenia. Prior: BMD 0.683 g/cm2. Baseline: BMD 0.919 g/cm2. LEFT FEMUR, TOTAL: Current: BMD 0.772 g/cm2, Z-score -1.2, T-score -1.9, osteopenia, 10.8% increase from previous, 25.8% decrease from baseline (<5% change is not significant). Prior: BMD 0.697 g/cm2. Baseline: BMD 1.041 g/cm2. AP SPINE L1-L4: Current: BMD 0.885 g/cm2, Z-score -1.6, T-score -2.5, osteoporosis, 5.5% decrease from previous, 20.5% decrease from baseline (<5% change is not significant). Prior: BMD 0.937 g/cm2. Baseline: BMD 1.113 g/cm2. Labs: Was on Evista 60 mg q.d.. Urine NTX was s elevated. Paternal aunt had breast cancer . Has significant amount of GERD. Received a dose of Reclast in 07/2024 The patient is a 60-year-old female presenting for osteoporosis management and preventative care. She received a dose of Reclast infusion in July and tolerated it well, with no fractures reported since the last visit. Prior to Reclast, she was on Raloxifene (Avista) for osteoporosis management. The patient has been advised to maintain a dietary intake of 1200 mg of calcium, preferably from food sources, and to continue vitamin D supplementation. A urine test was discussed to evaluate the effectiveness of Reclast, with instructions to provide the second morning urine sample after fasting overnight. She is due for a bone density test next year in November, which will help determine the need for further Reclast treatment. The patient reported experiencing bone pain when bending, which was suggested to be unrelated to her current osteoporosis treatment and possibly due to arthritis. [facility] Medical History Well woman exam Epidermal cyst Migraine HTN (hypertension) IBS (irritable bowel syndrome) GERD (gastroesophageal reflux disease) Chronic interstitial cystitis Sleep apnea Asthma Anemia Hypercholesteremia Depression Anxiety Sacrococcygeal pilonidal cyst Recurrent UTI Goiter Flank pain Dysuria Hypercalciuria Swelling of joint, ankle, right Swelling of right foot Vitamin D deficiency Hypothyroidism Right patella fracture History of secondary hyperparathyroidism Abnormal mammogram Surgical History History of removal of cyst (~05/12/24) History of bladder surgery H/O bilateral salpingo-oophorectomy S/P gastric bypass H/O left breast biopsy H/O: hysterectomy History of bilateral tubal ligation History of appendectomy Family History Mother Uterine cancer Father No problems noted. 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 Recent 24 hour urine for calcium was normal. Currently on calcium and vitamin-D supplementation. Was on Evista 60 mg q.d. but urine NTX remains high and received a dose of Reclast in 07/2024 Plan is to check a urine NTX. If urine NTX is suppressed we will continue to observe on calcium and vitamin-D. He is due for another DEXA in 1 year's time in 11/2025 1. Osteoporosis The patient is managed with Reclast infusion, which she tolerated well. A urine NTX test is planned to assess the effectiveness of Reclast. She is advised to maintain a dietary intake of 1200 mg of calcium and continue vitamin D supplementation. A bone density test is scheduled for next year to evaluate the need for further Reclast treatment. During the visit, I discussed the patient's current osteoporosis management with Reclast and the importance of maintaining adequate calcium and vitamin D intake. We reviewed the need for a urine test to assess Reclast's effectiveness and scheduled a bone density test for next year. I advised the patient to consult her primary care physician regarding her bone pain, which may be due to arthritis. - Continue taking vitamin D as prescribed. - Aim to consume 1200 mg of calcium daily from dietary sources. - Complete the urine test as instructed to assess Reclast effectiveness. - Schedule and complete a bone density test next year before the follow-up visit. - Discuss bone pain with your primary care physician. The patient had an opportunity to ask questions regarding treatment plan. The patient expressed understanding and agreement with the above treatment plan. Patient was informed and verbally consented to the use of an ambient scribe for clinic note documentation during this visit. Orders: Orders XR DEXA axial skeleton 1 Year M81.0 - Age-related osteoporosis without current pathological fracture Coding Level of Care Code Est Pt Level 3 (74243) Diagnoses Osteoporosis M81.0
[2025-02-21 09:45] VITALS: BP 92/58; PULSE 66; BMI 25.3
--- OUTSIDE RECORDS SUMMARY | 2025-02-21 10:51 | XMS_ITS | Encounter Summary ---
Author Organization [employer] Address [address] [place] [address] Care Team Providers Care Personalized Living Manager Name Role Phone Nupur Weir Primary Care Provider [phone] Reason for Visit * Reason Comments Med Refill Encounter Details Date Type Department Care Team ([facility] st Contact Info) Description 11/07/2024 Refill [facility] [address] [place] [address] Nupur Weir ANP [address] [place] [address] Primary hypertension; Iron deficiency anemia, unspecified iron [...] the past 12 months, has t he [employer], SHADOW, oil or water [employer] threatened to shut off services in your [...] Care Team (Late st Contact Info) Description 04/13/2025 9:00 AM EDT Office Visit [facility] [address] [place] [id number] Nupur Weir ANP [address] [place] [address] 09/28/2025 9:30 AM EST Medication Management [facility] [address] [place] [address] Fay Leigh, PharmD [address] [place] [address] documented as of this encounter Visit Diagnoses Diagnosis Primary hypertension Unspecified essential hypertension Iron deficiency anemia, unspecified iron deficiency anemia type documented in this encounter Care Teams Personalized Living Manager Relationship Specialty Start Date End Date Nupur Weir ANP [address] [place] [address] PCP - General Family Medicine 01/16/20 documented as of this encounter
== END 2025-02-21 10:04 | disposition home or self-care (01) ==
LOC: HO.ENCR 09:39
PROVIDERS: PCP Nurse Practitioner Primary Care; Visit Provider Internal Medicine Endocrinology, Diabetes & Metabolism
DX: M81.0 Age-related osteoporosis without current pathological fracture (principal)
CPT/HCPCS: 99213

== ENCOUNTER → 2025-02-21 09:38 | Outpatient (BNVA) | payer MEDICAID, SELFPAY | PROVIDERS: PCP Nurse Practitioner Primary Care; Visit Provider Internal Medicine Endocrinology, Diabetes & Metabolism | DX: M81.0 Age-related osteoporosis without current pathological fracture (principal) | CPT/HCPCS: 99212 ==

== ENCOUNTER 2025-02-24 10:27 | Emergency (ER) | payer MEDICAID, SELFPAY ==
--- NOTE | ~2025-02-24 | XR_ITS ---
CLINICAL HISTORY: fall 3 view left shoulder Comparison: CR/SR - XR SHOULDER LT MIN 2V - 09/09/22 10:52 EST Findings: Bony alignment is anatomic without fracture, dislocation, or separation. Mild AC joint DJD. Glenohumeral joint is well-maintained. IMPRESSION: 1. No acute findings This document has been electronically signed by: Hoang Rapp MD on 02/24/2025 12:58:05
--- NOTE | ~2025-02-24 | XR_ITS ---
CLINICAL HISTORY: fall Exam: AP pelvis with AP and frog-leg lateral views of the left hip. Comparison: CT/[place]/SR - CT ABDOMEN PELVIS WO IV CON - 12/31/24 09:53 EDT Findings: Bony alignment is anatomic. No acute fractures. Surgical clips are seen within the pelvis and lower abdomen. Continued findings of osteitis pubis. Unchanged bone island within the left iliac bone. IMPRESSION: No acute findings. This document has been electronically signed by: Hoang Rapp MD on 02/24/2025 12:58:18
--- NOTE | ~2025-02-24 | XR_ITS ---
CLINICAL HISTORY: fall Exam: AP, lateral, and oblique views of the left knee. Comparison: None provided. Findings: Bony alignment is anatomic. No fracture or joint effusion. Joint spaces are well preserved. Impression: No fracture. This document has been electronically signed by: Hoang Rapp MD on 02/24/2025 12:55:48
[2025-02-24 10:38] VITALS: BP 100/66; PULSE 71; RESP 16; TEMP 36.1; O2SAT 98; BMI 25.4
[2025-02-24] MEDS: Ibuprofen 600 MG TABLET PO (11:57)
[2025-02-24 12:00] VITALS: BP 107/69; PULSE 56; RESP 16; TEMP 36.3; O2SAT 100
--- NOTE | 2025-02-24 12:25 | ED.GENADULT ---
HPI - General Adult General Chief complaint: Fall Stated complaint: fall Time Seen by Provider: 02/24/25 11:04 Source: patient, RN notes reviewed and old records reviewed Mode of arrival: ambulatory Limitations: no limitations History of Present Illness ED Provider: Slava HPI narrative: 60-year-old female with past medical history significant for osteoporosis presents for evaluation after a fall. Patient reports that yesterday she tripped while getting out of bed. She has an extension cord next to her bed. She got her foot stuck in the cord and fell onto her left side. This happened yesterday morning She is having pain to her left shoulder, hip and thigh/knee area primarily pain She does have some mild left ankle pain pain She has been ambulatory. She denies hitting her head or losing consciousness. She is not anticoagulated. Denies any chest pain or pain with inspiration Related Data Home Medications ?Medication ?Instructions ?Recorded ?Confirmed cyanocobalamin (vitamin B-12) 1,000 mcg PO DAILY 07/05/20 02/21/25 1,000 mcg capsule diltiazem HCl 180 mg 180 mg PO DAILY 11/24/21 02/21/25 capsule,extended release 24 hr fluticasone propionate 110 1 puff PO BID 11/24/21 02/21/25 mcg/actuation HFA aerosol inhaler (Flovent HFA) pantoprazole 40 mg tablet,delayed 40 mg PO DAILY 11/24/21 02/21/25 release cholecalciferol (vitamin D3) 50 2,000 unit PO DAILY 11/26/21 02/21/25 mcg (2,000 unit) capsule losartan 50 mg tablet 50 mg PO DAILY blood pressure 11/24/22 02/21/25 levothyroxine 25 mcg tablet 25 mcg PO DAILY 01/08/23 02/21/25 riboflavin (vitamin B2) 100 mg 200 mg PO BID 01/08/23 02/21/25 tablet (Vitamin B-2) topiramate 50 mg tablet 100 mg PO BID 01/08/23 02/21/25 cetirizine 10 mg tablet 10 mg PO DAILY PRN itch 07/24/24 02/21/25 Previous Rx's ?Medication ?Instructions ?Recorded lidocaine 5 % topical patch 1 patch topical DAILY #15 ea 03/07/23 (Lidoderm) gabapentin 100 mg capsule 100 mg PO TID #270 caps 12/06/23 docusate sodium 100 mg capsule 100 mg PO BID #30 caps 05/12/24 (Colace) ibuprofen 600 mg tablet 600 mg PO Q6-8H PRN pain (scale 06/08/24 score 1-3) #20 tabs ibuprofen 200 mg tablet 200 mg PO TID PRN pain #10 tabs 06/14/24 cyclobenzaprine 10 mg tablet 10 mg PO TID PRN muscle spasm #10 08/30/24 tabs lidocaine 5 % topical patch 1 patch topical DAILY #15 ea 08/30/24 pyridoxine (vitamin B6) 100 mg 100 mg PO DAILY 90 days #90 tabs 12/22/24 tablet linezolid 600 mg tablet (Zyvox) 600 mg PO BID 7 days #14 tabs 12/26/24 phenazopyridine 200 mg tablet 200 mg PO TID 6 doses #6 tabs 12/31/24 (Pyridium) solifenacin 5 mg tablet (Vesicare) 5 mg PO DAILY 30 days #30 tabs 02/06/25 ibuprofen 600 mg tablet 600 mg PO Q6H PRN pain #20 tabs 02/24/25 Allergies Allergy/AdvReac Type Severity Reaction Status Date / Time ondansetron (From ZOFRAN) Allergy Unknown per H&P Verified 02/24/25 10:39 sumatriptan (From IMITREX) Allergy Unknown RASH FROM Verified 02/24/25 10:39 TABLET NOT INJECTION promethazine (From PHENERGAN) AdvReac Severe DYSTONIA Verified 02/24/25 10:39 Review of Systems Constitutional: Constitutional: Denies chills, Denies fever(s) and Denies headache(s) Eyes: Eyes: Denies blurry vision ENT: Denies vertigo, Denies dizziness and Denies headache(s) Cardiovascular: Cardiovascular: Denies chest pain and Denies dyspnea on exertion Respiratory: Respiratory: Denies cough and Denies dyspnea on exertion Gastrointestinal: Gastrointestinal: Denies abdominal pain, Denies nausea and Denies vomiting Musculoskeletal: Musculoskeletal: Reports back pain, Reports arthralgias and Reports limited range of motion Integumentary/Breasts: Skin/Breast: Denies rash Neurologic: Denies vertigo, Denies dizziness and Denies headache(s) Psychiatric: Psychiatric: Denies anxiety PMFSH Past Medical History Medical History Well woman exam Epidermal cyst Migraine HTN (hypertension) IBS (irritable bowel syndrome) GERD (gastroesophageal reflux disease) Chronic interstitial cystitis Sleep apnea Asthma Anemia Hypercholesteremia Depression Anxiety Sacrococcygeal pilonidal cyst Recurrent UTI Goiter Flank pain Dysuria Hypercalciuria Swelling of joint, ankle, right Swelling of right foot Vitamin D deficiency Hypothyroidism Right patella fracture History of secondary hyperparathyroidism Abnormal mammogram Surgical History History of removal of cyst (~05/12/24) History of bladder surgery H/O bilateral salpingo-oophorectomy S/P gastric bypass H/O left breast biopsy H/O: hysterectomy History of bilateral tubal ligation History of appendectomy Family History Family History Mother Uterine cancer Father No problems noted. 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 Sexual orientation: Straight/Heterosexual Gender identity: Female Physical Exam ED Vital Signs: Vital Signs - 24 hr 02/24/25 10:38 02/24/25 12:00 Temperature 96.9 F 97.3 F Pulse Rate 71 56 Respiratory Rate 16 16 Blood Pressure 100/66 107/69 Pulse Oximetry 98 100 Oxygen Delivery Method Room Air Room Air BMI result Body Mass Index 25.4 Const General: healthy appearing, comfortable, no acute distress, alert and awake Nutritional Appearance: well nourished Orientation/consciousness: patient oriented x3 HENMT Head: Yes normocephalic and Yes atraumatic Eyes Eyelids: Yes eyelids normal Conjunctivae: conjunctivae normal Sclerae: sclerae normal Corneas: corneas normal Pupils: Equal, round and reactive pupils present EOM: EOMs intact bilaterally Neck Neck: Yes full ROM Resp Effort & Inspection: normal respiratory effort, able to speak in complete sentences and not labored GI Inspection: No distended Palpation (GI): Soft to palpation, not firm, nontender, no guarding and not rigid Auscultation: normoactive bowel sounds Skin General skin exam: elasticity normal Neuro General: patient oriented x3 Cranial nerves: Yes Equal, round and reactive pupils present and Yes Bilaterally intact EOM present Cognition (Neuro): normal cognition Extrem Other: There was no obvious deformity to the left shoulder, hip, knee or ankle. She is able to abduct her left upper extremity at the shoulder to shoulder level. She is able to who pronate and supinate without any difficulty. Stent no tenderness over the clavicle. No evidence of shoulder dislocation. She has some mild tenderness over the left the rotator cuff region. The patient is able to elevate the left lower extremity at the hip with full flexion-extension. She has limited flexion of the knee to about 90?. There is some tenderness to the lateral hip, knee and without deformity to any of these regions. No Achilles tenderness or deformity. There was no significant tenderness over the left lateral malleolus. Course Reevaluation(s) Reevaluation #1: X-rays did not show any evidence of fracture. The patient be discharged with symptomatic care Time: 13:32 Medications Administered Discontinued Medications Generic Name Dose Route Start Last Admin Trade Name Freq PRN Reason Stop Dose Admin Ibuprofen 600 mg 02/24/25 11:40 02/24/25 11:57 Ibuprofen 600 Mg Tablet PO 02/24/25 11:41 600 mg ONCE ONE Administration Medical Decision Making Medical Decision Making [facility] Narrative: 60-year-old female presents for evaluation after a fall. This was a nonsyncopal fall. She tripped over an extension cord landing on her left side. Plan for x-rays of the left shoulder, hip, knee. She has no edema or deformity to the left ankle and no tenderness over the lateral malleolus. X-ray of the left ankle was deferred Radiology Impression Discussion of test interpretation with radiology: I have reviewed the radiologist's reading. Radiologist Impression: Findings: Bony alignment is anatomic without fracture, dislocation, or separation. Mild AC joint DJD. Glenohumeral joint is well-maintained. IMPRESSION: 1. No acute findings This document has been electronically signed by: Hoang Rapp MD on 02/24/2025 12:58:05 Findings: Bony alignment is anatomic. No acute fractures. Surgical clips are seen within the pelvis and lower abdomen. Continued findings of osteitis pubis. Unchanged bone island within the left iliac bone. IMPRESSION: No acute findings. This document has been electronically signed by: Hoang Rapp MD on 02/24/2025 12:58:18 Findings: Bony alignment is anatomic. No fracture or joint effusion. Joint spaces are well preserved. Impression: No fracture. This document has been electronically signed by: Hoang Rapp MD on 02/24/2025 12:55:48 Discharge Plan Discharge Clinical Impression: Acute pain of left lower extremity, Acute pain of left shoulder Patient Disposition: Home, Self-Care Instructions: Arthralgia (ED) Additional Instructions: Your x-rays did not show any evidence of fracture. Use ibuprofen/Tylenol for pain Follow-up with your primary doctor, return for worsening symptoms Prescriptions: New ibuprofen 600 mg tablet 600 mg PO Q6H PRN (Reason: pain) Qty: 20 0RF No Action cyanocobalamin (vitamin B-12) 1,000 mcg capsule 1,000 mcg PO DAILY cholecalciferol (vitamin D3) 50 mcg (2,000 unit) capsule 2,000 unit PO DAILY gabapentin 100 mg capsule 100 mg PO TID Qty: 270 3RF docusate sodium [Colace] 100 mg capsule 100 mg PO BID Qty: 30 0RF pyridoxine (vitamin B6) 100 mg tablet 100 mg PO DAILY 90 Days Qty: 90 0RF linezolid [Zyvox] 600 mg tablet 600 mg PO BID 7 Days Qty: 14 0RF solifenacin [Vesicare] 5 mg tablet 5 mg PO DAILY 30 Days Qty: 30 1RF ibuprofen 600 mg tablet 600 mg PO Q6-8H PRN (Reason: pain (scale score 1-3)) Qty: 20 0RF phenazopyridine [Pyridium] 200 mg tablet 200 mg PO TID Qty: 6 0RF lidocaine [Lidoderm] 5 % adhesive patch,medicated 1 patch topical DAILY Qty: 15 0RF Rx Instructions: leave on most painful area for up to 12 hrs cyclobenzaprine 10 mg tablet 10 mg PO TID PRN (Reason: muscle spasm) Qty: 10 0RF lidocaine 5 % adhesive patch,medicated 1 patch topical DAILY Qty: 15 0RF Rx Instructions: leave on most painful area for up to 12 hrs pantoprazole 40 mg tablet,delayed release (DR/EC) 40 mg PO DAILY diltiazem HCl 180 mg capsule,extended release 24hr 180 mg PO DAILY Flovent HFA 110 mcg/actuation HFA aerosol inhaler 1 puff PO BID losartan 50 mg tablet 50 mg PO DAILY levothyroxine 25 mcg tablet 25 mcg PO DAILY topiramate 50 mg tablet 100 mg PO BID riboflavin (vitamin B2) [Vitamin B-2] 100 mg tablet 200 mg PO BID ibuprofen 200 mg tablet 200 mg PO TID PRN (Reason: pain) Qty: 10 0RF cetirizine 10 mg tablet 10 mg PO DAILY PRN (Reason: itch) Print Language: Mongolian
[2025-02-24 13:40] VITALS: BP 107/69; PULSE 56; RESP 16; TEMP 36.3; O2SAT 100
== END 2025-02-24 13:40 | disposition home or self-care (01) ==
PROVIDERS: Emergency Provider Emergency Medicine; PCP Nurse Practitioner Primary Care
DX: M79.605 Pain in left leg (principal); M25.552 Pain in left hip; M25.512 Pain in left shoulder; M25.562 Pain in left knee; Z79.899 Other long term (current) drug therapy
CPT/HCPCS: 73030; 73502; 73564; 99283; 99284

== ENCOUNTER → 2025-02-24 11:40 | Outpatient (BNV) | payer MEDICAID, SELFPAY | PROVIDERS: Emergency Provider Emergency Medicine; PCP Nurse Practitioner Primary Care; Visit Provider Radiology Diagnostic Radiology | DX: M25.552 Pain in left hip (principal); M85.38 Osteitis condensans, other site; M19.012 Primary osteoarthritis, left shoulder | CPT/HCPCS: 73030; 73502; 73564 ==

== ENCOUNTER 2025-03-09 09:35 | Outpatient (REF) | payer MEDICAID, SELFPAY ==
--- OUTSIDE RECORDS SUMMARY | 2025-01-03 05:20 | XMS_ITS ---
Author Organization [facility] Address 10 [facility] [address] [place] [address] Care Team Providers Care Kitman Name Role Phone MICHAEL YANEZ N.P. Primary Care Provider Fidencio Langley Jr REASON FOR VISIT dysphagia Encounters Encounter Location Date Provider Diagnosis [facility] [address] [place] [address] 01/03/2025 Fidencio Vila Jr Plan Of Treatment Next Appt Details Provider Name:Fidencio haider Jr, 07/18/2025 11:20:00 AM, [address] [place] [address], [address], [place], [address], Progress Notes * TIFFANIE TYLERADOB: 6 (60 yo F)Acc No.[id number]:01/03/2025 Progress Notes Patient: TAY CAPELLAN Provider: Remi Vila MD :1965 A ge:59 Y S ex:Female Date:01/03/2025 Address:[address] [place] Pcp:MICHAEL YANEZ N.P. Subjective: * Chief Complaints: [...] 01/03/2025 Generated for Viviane negrete/Shakila/Constantino on: 0 03/09/2025 09:51 AM EDT
--- OUTSIDE RECORDS SUMMARY | 2025-03-09 09:52 | XMS_ITS ---
Author Organization [employer] Address [address] [place] [address] [address] [place] [address] Care Team Providers Care Recording Artist Name Role Phone Nupur Weir Primary Care Provider [phone] Abel Chavarria RN Unavailable [phone] Margareth Chavarria Unavailable CM Complex Status:Outreach In Progress (Enrolling) Start date:02/26/2025 Enrollment reason:ADT Feed Overview ED- Pt went to [facility] ED on 02/24/25. Case Team Name Relationship Phone Abel Chavarria RN(Responsible Staff) Registered Nurse [phone] Continued Care and Services Coordination
[2025-03-15 05:09] LABS: NTXCreaRU 69 mg/dL (20-275)
== END 2025-03-09 09:36 | disposition home or self-care (01) ==
LOC: HO.LNP 09:35
PROVIDERS: Visit Provider Internal Medicine Endocrinology, Diabetes & Metabolism
DX: M81.0 Age-related osteoporosis without current pathological fracture (principal)
CPT/HCPCS: 82523

== ENCOUNTER 2025-03-10 11:21 | Emergency (ER) | payer MEDICAID, SELFPAY ==
--- NOTE | 2025-03-10 | ECG_ITS ---
Test Reason : CHEST PAIN Blood Pressure : */* mmHG Vent. Rate : 65 BPM Atrial Rate : 65 BPM P-R Int : 148 ms QRS Dur : 76 ms QT Int : 390 ms P-R-T Axes : 1 48 32 degrees QTcB Int : 405 ms Normal sinus rhythm Normal ECG When compared with ECG of 24-May-2022 13:47, No significant change was found Referred By: Generic ED Physician Electronically Signed By: Inderjit Heart
--- NOTE | ~2025-03-10 | XR_ITS ---
EXAMINATION: XR CHEST CLINICAL INFORMATION: shortness of breath COMPARISON: July 20, 2023. TECHNIQUE: 2 views of the chest were obtained. FINDINGS: Hyperinflated lungs. No consolidation, pleural effusion or pneumothorax. Cardiomediastinal silhouette size is normal. Calcified plaque thoracic aortic arch. Multilevel thoracolumbar spondylosis. Sutures in the epigastric/left upper quadrant abdomen. Metallic piercing in the mid lower sternum and likely nipple areolar region, both breasts. XR/XR chest 2V IMPRESSION: Hyperinflated lungs. No acute airspace disease. Electronically signed by: Maximus Max MD 03/12/2025 08:12 AM EDT
[2025-03-10 11:42] VITALS: BP 131/77; PULSE 69; RESP 20; TEMP 36.6; O2SAT 100; BMI 24.1
--- NOTE | 2025-03-10 11:46 | ED.CHESTPAIN ---
HPI - Chest Pain General Chief Complaint: Chest Pain Stated Complaint: CP Time Seen by Provider: 03/10/25 13:20 Source: patient and lead housekeeper Mode of arrival: ambulatory Limitations: no limitations History of Present Illness ED Provider: HPI narrative: 60-year-old woman presenting with pain over her left shoulder as well as packed muscle and upper back, it is radiating to her left arm she feels pulsations, denies nausea or vomiting diaphoresis or shortness of breath, she does not smoke does not drink no drug use, no history of cardiac issues no recent travel, no hemoptysis no pleurisy. Related Data Home Medications ?Medication ?Instructions ?Recorded ?Confirmed cyanocobalamin (vitamin B-12) 1,000 mcg PO DAILY 07/05/20 02/21/25 1,000 mcg capsule diltiazem HCl 180 mg 180 mg PO DAILY 11/24/21 02/21/25 capsule,extended release 24 hr fluticasone propionate 110 1 puff PO BID 11/24/21 02/21/25 mcg/actuation HFA aerosol inhaler (Flovent HFA) pantoprazole 40 mg tablet,delayed 40 mg PO DAILY 11/24/21 02/21/25 release cholecalciferol (vitamin D3) 50 2,000 unit PO DAILY 11/26/21 02/21/25 mcg (2,000 unit) capsule losartan 50 mg tablet 50 mg PO DAILY blood pressure 11/24/22 02/21/25 levothyroxine 25 mcg tablet 25 mcg PO DAILY 01/08/23 02/21/25 riboflavin (vitamin B2) 100 mg 200 mg PO BID 01/08/23 02/21/25 tablet (Vitamin B-2) topiramate 50 mg tablet 100 mg PO BID 01/08/23 02/21/25 cetirizine 10 mg tablet 10 mg PO DAILY PRN itch 07/24/24 02/21/25 Previous Rx's ?Medication ?Instructions ?Recorded lidocaine 5 % topical patch 1 patch topical DAILY #15 ea 03/07/23 (Lidoderm) gabapentin 100 mg capsule 100 mg PO TID #270 caps 12/06/23 docusate sodium 100 mg capsule 100 mg PO BID #30 caps 05/12/24 (Colace) ibuprofen 600 mg tablet 600 mg PO Q6-8H PRN pain (scale 06/08/24 score 1-3) #20 tabs ibuprofen 200 mg tablet 200 mg PO TID PRN pain #10 tabs 06/14/24 cyclobenzaprine 10 mg tablet 10 mg PO TID PRN muscle spasm #10 08/30/24 tabs lidocaine 5 % topical patch 1 patch topical DAILY #15 ea 08/30/24 pyridoxine (vitamin B6) 100 mg 100 mg PO DAILY 90 days #90 tabs 12/22/24 tablet linezolid 600 mg tablet (Zyvox) 600 mg PO BID 7 days #14 tabs 12/26/24 phenazopyridine 200 mg tablet 200 mg PO TID 6 doses #6 tabs 12/31/24 (Pyridium) solifenacin 5 mg tablet (Vesicare) 5 mg PO DAILY 30 days #30 tabs 02/06/25 ibuprofen 600 mg tablet 600 mg PO Q6H PRN pain #20 tabs 02/24/25 Medrol (Angel) 4 mg tablets in a 4 mg PO DAILY #21 ea 03/10/25 dose pack (methylprednisolone) lidocaine 4 % topical patch 1 patch topical DAILY PRN pain #10 03/10/25 (Aspercreme (lidocaine)) ea Allergies Allergy/AdvReac Type Severity Reaction Status Date / Time ondansetron (From ZOFRAN) Allergy Unknown per H&P Verified 03/10/25 11:42 sumatriptan (From IMITREX) Allergy Unknown RASH FROM Verified 03/10/25 11:42 TABLET NOT INJECTION promethazine (From PHENERGAN) AdvReac Severe DYSTONIA Verified 03/10/25 11:42 Review of Systems Constitutional: Constitutional: Reports as per [facility] Past Medical History Medical History Well woman exam Epidermal cyst Migraine HTN (hypertension) IBS (irritable bowel syndrome) GERD (gastroesophageal reflux disease) Chronic interstitial cystitis Sleep apnea Asthma Anemia Hypercholesteremia Depression Anxiety Sacrococcygeal pilonidal cyst Recurrent UTI Goiter Flank pain Dysuria Hypercalciuria Swelling of joint, ankle, right Swelling of right foot Vitamin D deficiency Hypothyroidism Right patella fracture History of secondary hyperparathyroidism Abnormal mammogram Surgical History History of removal of cyst (~05/12/24) History of bladder surgery H/O bilateral salpingo-oophorectomy S/P gastric bypass H/O left breast biopsy H/O: hysterectomy History of bilateral tubal ligation History of appendectomy Family History Family History Mother Uterine cancer Father No problems noted. 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 Sexual orientation: Straight/Heterosexual Gender identity: Female Physical Exam Vital Signs: Vital Signs: Last Vital Signs Temp 98.0 F 03/10/25 14:19 Pulse 63 03/10/25 14:19 Resp 13 03/10/25 14:19 BP 108/61 03/10/25 14:19 Pulse Ox 100 03/10/25 14:19 O2 Del Method Room Air 03/10/25 14:19 BMI result Body Mass Index 24.1 Const: Other: Gen: ?Overall well-appearing patient HEENT: PERRLA, EOMI, MMM, Neck: Supple, no LAD CV: RRR, no obvious murmurs appreciated, radial pulses intact bilateral upper extremities Resp: ?No wheezing rales rhonchi no stridor moving air well Abd: ?Bowel sounds are present, no tenderness no rebound no rigidity MSK: Positive impingement sign left shoulder, tenderness along pectoralis tenderness along parasternal muscles and medial border of the scapula Skin: Warm, dry, intact, Neuro: ?Alert and oriented x3, moving upper and lower extremities symmetrically, no obvious facial asymmetry noted Course Course Course Narrative: RME 1148 am, 03/10/25, Alisha Saldivar PA-C: We will defer full ROS and PE to treating provider. Since , 2 days ago patient has had left anterior chest wall pain. It is worse with positional changes as well as deep inspiration and are movement. It feels worse when she is sitting up versus lying down flat. She reports it does not feel like heartburn and she is not coughing denying any fevers or chills but does make her feel winded with ambulation. She denies any history of tobacco use or heart failure. She is reporting a history of asthma and mom she does have a rescue inhaler she does not feel she needed to use it at all or wheezing. She denies any fevers or chills no abdominal discomfort or nausea or vomiting no diarrhea no body aches joint pain or rashes other than her chest wall pain. She has not tried to treat it in any way. No cardiac family history. No paresthesias or weakness no radiation to back. no falls or trauma. Pain is 10/10, she has not appear in any acute respiratory distress and is speaking evenly. She does not feel like she is going to pass out and no palpitations. This has happened to her before in the past she can not recall what the etiology was. Medical Decision Making Medical Decision Making [facility] Narrative: PERC negative, EKG without any changes to suspect underlying ACS, chest x-ray without mediastinal widening or pneumothorax, physical exam is consistent with impingement of the left shoulder, scapulothoracic dyskinesis, see my discharge instructions Differential Diagnosis Differential Diagnoses: The differential diagnosis associated with the presentation includes ACS, pneumothorax, aortic dissection, PE, musculoskeletal pain Admission/Observation Consideration of admission/observation: Escalation of care including admission/observation considered Lab Data [facility] Lab Attestation statement: I reviewed the patient's lab results. 03/10/25 11:57 03/10/25 11:57 Labs: Lab Results 03/10/25 Range/Units 11:57 WBC 5.7 (4.8-10.8) X10*3/uL RBC 5.13 (4.20-5.50) X10*6/uL Hgb 15.1 (12.0-16.0) g/dl Hct 46.6 (37.0-47.0) % MCV 90.8 (80.0-98.0) fL MCH 29.4 (27.0-33.0) pg MCHC 32.4 (31.0-35.0) g/dl RDW 13.2 (11.0-16.0) % Plt Count 264 (160-400) X10*3/uL MPV 8.3 L (9.4-12.3) fL Immature Gran % (Auto) 0.3 (0.0-0.4) % Neut % (Auto) 49.2 (45-73) % Lymph % (Auto) 39.5 (20-40) % Beauregard % (Auto) 7.7 (2-11) % Eos % (Auto) 2.4 (0-4) % Baso % (Auto) 0.9 (0-2) % Lymph # (Auto) 2.3 (1.2-4.9) X10*3/uL Beauregard # (Auto) 0.4 (0.1-1.2) X10*3/uL Eos # (Auto) 0.1 (0.0-0.4) X10*3/uL Baso # (Auto) 0.1 (0.0-0.2) X10*3/uL Abs Immat Gran (auto) 0.02 (0.00-0.03) X10*3/uL Absolute Neuts (auto) 2.8 (2.0-8.3) x10*3/uL Absolute Nucleated RBC 0.000 (0.0-0.012) X10*3/uL Nucleated RBC % (auto) 0.0 (0.0-0.2) /100WBC Sodium 139 (135-145) mmol/L Potassium 4.0 (3.3-5.1) mmol/L Chloride 107 (96-108) mmol/L Carbon Dioxide 26 (22-29) mmol/L Anion Gap 10 L (12-20) BUN 11 (9-16) mg/dL Creatinine 0.77 (0.5-1.4) mg/dL Estim Creat Clear Calc 73.6 Estimated GFR > 60 Fasting Glucose 95 (60-99) mg/dL Calcium 8.9 (8.4-10.2) mg/dL Magnesium 2.3 (1.6-2.6) mg/dL Total Bilirubin 0.8 (0.0-1.0) mg/dL AST 27 (5-31) U/L ALT 29 (0-31) U/L Alkaline Phosphatase 100 (39-117) U/L Troponin I High Sens < 2.7 (<3.5-17.0) ng/L Total Protein 7.1 (6.5-8.0) g/dL Albumin 4.2 (3.5-5.0) g/dL Lipase 17 (8-78) U/L Independent Interpretation I performed an independent interpretation of an: EKG (65 beats per minute otherwise normal ECG without dysrhythmia, AV suni blocks or ST-T changes to suspect underlying ACS, my independent interpretation) and Plain X-Ray (My independent chest xray interpretation: Lungs: Lungs are clear bilaterally without evidence of focal consolidation, pleural effusion, or pneumothorax. Cardiac silhouette is unremarkable, no obvious mediastinal widening, no obvious bony abnormalities such as fractures. Impression: Normal chest X-r) Discharge Plan Discharge Clinical Impression: Chest pain, precordial, Impingement of left shoulder Patient Disposition: Home, Self-Care Additional Instructions: Evaluated with chest pain, shoulder pain, you had cardiac workup, chest x-ray, physical examination is consistent musculoskeletal pain, lidocaine patches to your upper back, big bag of ice for 30 minutes to his shoulder, gentle [id number] exercises as not to get stiff, and steroid pack as prescribed, follow up with the PCP any other issues or concerns come back to the ER Prescriptions: New methylprednisolone [Medrol (Angel)] 4 mg tablets,dose pack 4 mg PO DAILY Qty: 21 0RF Rx Instructions: Day 1: 24 mg on day 1 administered as 8 mg before breakfast, 4 mg after lunch, 4 mg after supper, and 8 mg at bedtime or 24 mg as a single dose or divided into 2 or 3 doses upon initiation. Day 2: 20 mg on day 2 administered as 4 mg before breakfast, 4 mg after lunch, 4 mg after supper, and 8 mg at bedtime. Day 3: 16 mg on day 3 administered as 4 mg before breakfast, 4 mg after lunch, 4 mg after supper, and 4 mg at bedtime. Day 4: 12 mg on day 4 administered as 4 mg before breakfast, 4 mg after lunch, and 4 mg at bedtime. Day 5: 8 mg on day 5 administered as 4 mg before breakfast and 4 mg at bedtime. Day 6: 4 mg on day 6 administered as 4 mg before breakfast. lidocaine [Aspercreme (lidocaine)] 4 % adhesive patch,medicated 1 patch topical DAILY PRN (Reason: pain) Qty: 10 0RF No Action cyanocobalamin (vitamin B-12) 1,000 mcg capsule 1,000 mcg PO DAILY cholecalciferol (vitamin D3) 50 mcg (2,000 unit) capsule 2,000 unit PO DAILY gabapentin 100 mg capsule 100 mg PO TID Qty: 270 3RF docusate sodium [Colace] 100 mg capsule 100 mg PO BID Qty: 30 0RF pyridoxine (vitamin B6) 100 mg tablet 100 mg PO DAILY 90 Days Qty: 90 0RF linezolid [Zyvox] 600 mg tablet 600 mg PO BID 7 Days Qty: 14 0RF solifenacin [Vesicare] 5 mg tablet 5 mg PO DAILY 30 Days Qty: 30 1RF ibuprofen 600 mg tablet 600 mg PO Q6-8H PRN (Reason: pain (scale score 1-3)) Qty: 20 0RF phenazopyridine [Pyridium] 200 mg tablet 200 mg PO TID Qty: 6 0RF lidocaine [Lidoderm] 5 % adhesive patch,medicated 1 patch topical DAILY Qty: 15 0RF Rx Instructions: leave on most painful area for up to 12 hrs cyclobenzaprine 10 mg tablet 10 mg PO TID PRN (Reason: muscle spasm) Qty: 10 0RF lidocaine 5 % adhesive patch,medicated 1 patch topical DAILY Qty: 15 0RF Rx Instructions: leave on most painful area for up to 12 hrs ibuprofen 600 mg tablet 600 mg PO Q6H PRN (Reason: pain) Qty: 20 0RF pantoprazole 40 mg tablet,delayed release (DR/EC) 40 mg PO DAILY diltiazem HCl 180 mg capsule,extended release 24hr 180 mg PO DAILY Flovent HFA 110 mcg/actuation HFA aerosol inhaler 1 puff PO BID losartan 50 mg tablet 50 mg PO DAILY levothyroxine 25 mcg tablet 25 mcg PO DAILY topiramate 50 mg tablet 100 mg PO BID riboflavin (vitamin B2) [Vitamin B-2] 100 mg tablet 200 mg PO BID ibuprofen 200 mg tablet 200 mg PO TID PRN (Reason: pain) Qty: 10 0RF cetirizine 10 mg tablet 10 mg PO DAILY PRN (Reason: itch) Referrals: Nupur Weir, VEHICLE CHECK IN CLERK [Primary Care Provider, Internal Medicine] - 2 weeks Clinical Impression: Impingement of left shoulder; Chest pain, precordial Print Language: Polish
[2025-03-10 12:02] LABS: MANUAL DIFF FLAG NO
[2025-03-10 12:03] LABS: Hematocrit 46.6 % (37.0-47.0); Hemoglobin 15.1 g/dl (12.0-16.0); Imm Gran Abs Auto 0.02 X10*3/uL (0.00-0.03); Imm Gran Pct Auto 0.3 % (0.0-0.4); Lymphocytes Absolute Auto 2.3 X10*3/uL (1.2-4.9); Mean Corpuscular HGB Conc 32.4 g/dl (31.0-35.0); Mean Corpuscular Hemoglobin 29.4 pg (27.0-33.0); Mean Corpuscular Volume 90.8 fL (80.0-98.0); NRBC Abs Auto 0.000 X10*3/uL (0.0-0.012); NRBC Pct Auto 0.0 /100WBC (0.0-0.2); Platelet Count 264 X10*3/uL (160-400); Red Blood Count 5.13 X10*6/uL (4.20-5.50); White Blood Count 5.7 X10*3/uL (4.8-10.8)
[2025-03-10 12:25] LABS: Alanine Aminotransferase 29 U/L (0-31); Albumin Level 4.2 g/dL (3.5-5.0); Alkaline Phosphatase 100 U/L (39-117); Anion Gap 10 (12-20); Aspartate Amino Transferase 27 U/L (5-31); Blood Urea Nitrogen 11 mg/dL (9-16); Calcium 8.9 mg/dL (8.4-10.2); Carbon Dioxide 26 mmol/L (22-29); Chloride 107 mmol/L (96-108); Creatinine Clr Calc Pharmacy 73.6; Estimated Glomerular Filt Rate > 60; Lipase 17 U/L (8-78); Magnesium 2.3 mg/dL (1.6-2.6); Potassium 4.0 mmol/L (3.3-5.1); Sodium 139 mmol/L (135-145); Total Protein 7.1 g/dL (6.5-8.0)
[2025-03-10 12:36] LABS: Troponin-I High Sensitivity < 2.7 ng/L (<3.5-17.0)
[2025-03-10 13:18] VITALS: BP 115/72; PULSE 60; RESP 16; O2SAT 98
[2025-03-10 14:19] VITALS: BP 108/61; PULSE 63; RESP 13; TEMP 36.7; O2SAT 100
--- NOTE | 2025-03-10 14:52 | PC.NURSE ---
patient a&ox3, labs previously drawn, ekg performed-nsr, pt c/o 06/08 pain to left shoulder/chest, singer and unloader applied, call smith within reach, plan of care ongoing
[2025-03-10 15:22] VITALS: BP 104/70; PULSE 61; RESP 11; TEMP 36.8; O2SAT 97
[2025-03-10] MEDS: Lidocaine 4 % Patch ADH..PATCH 1 PATCH TRANSDERMA (15:36)
--- NOTE | 2025-03-10 15:48 | PC.NURSE ---
pt a&ox3, vss, pt medicated per order, pt to discharge home
[2025-03-10 15:49] VITALS: BP 114/86; PULSE 62; RESP 16; TEMP 36.6; O2SAT 94
[2025-03-10 15:53] VITALS: BP 114/86; PULSE 62; RESP 16; TEMP 36.6; O2SAT 94
== END 2025-03-10 15:53 | disposition home or self-care (01) ==
PROVIDERS: Physician Assistant Medical; Emergency Provider Emergency Medicine; PCP Nurse Practitioner Primary Care
DX: M25.812 Other specified joint disorders, left shoulder (principal); R07.2 Precordial pain; R07.9 Chest pain, unspecified; R06.02 Shortness of breath; M25.512 Pain in left shoulder; I10 Essential (primary) hypertension
CPT/HCPCS: 36415; 71046; 80053; 83690; 83735; 84484; 85025; 93005; 96372; 99284; 99285; J1885; J8540

== ENCOUNTER → 2025-03-10 11:23 | Outpatient (BNV) | payer MEDICAID, SELFPAY | PROVIDERS: Emergency Provider Emergency Medicine; PCP Nurse Practitioner Primary Care; Visit Provider Internal Medicine Cardiovascular Disease | DX: R07.9 Chest pain, unspecified (principal) | CPT/HCPCS: 93010 ==

== ENCOUNTER → 2025-03-10 11:46 | Outpatient (BNV) | payer MEDICAID, SELFPAY | PROVIDERS: Emergency Provider Emergency Medicine; PCP Nurse Practitioner Primary Care; Visit Provider Radiology Diagnostic Radiology | DX: J98.4 Other disorders of lung (principal) | CPT/HCPCS: 71046 ==

== ENCOUNTER 2025-03-22 11:18 | Outpatient (REF) | payer MEDICAID, SELFPAY | END 2025-03-22 11:19 | disposition home or self-care (01) | LOC: HO.LAB 11:18 | PROVIDERS: PCP Nurse Practitioner Primary Care; Visit Provider Nurse Practitioner Family | DX: N20.0 Calculus of kidney (principal); R30.0 Dysuria; N39.0 Urinary tract infection, site not specified; N36.2 Urethral caruncle; N95.2 Postmenopausal atrophic vaginitis; Z98.51 Tubal ligation status; Z79.890 Hormone replacement therapy; Z79.899 Other long term (current) drug therapy | CPT/HCPCS: 51798; 81003; 87086; 99212 ==

== ENCOUNTER 2025-03-22 11:18 | Outpatient (AMB) | payer MEDICAID, SELFPAY ==
--- OUTSIDE RECORDS SUMMARY | 2025-01-03 05:20 | XMS_ITS ---
Author Organization [facility] Address [address] [address] [place] [phone] Care Team Providers Care Mail Deliverer Name Role Phone MICHAEL YANEZ N.P. Primary Care Provider Fidencio Langley Jr [phone] REASON FOR VISIT dysphagia Encounters Encounter Location Date Provider Diagnosis [facility] [address] [place] [phone] 01/03/2025 Fidencio Vila Jr Plan Of Treatment Next Appt Details Provider Name:Fidencio haider Jr, 07/18/2025 11:20:00 AM, [address] [place] [address], [address], [place], [address], Progress Notes * TIFFANIE TYLERADOB: 6 (60 yo F)Acc No.[id number]:01/03/2025 Progress Notes Patient: TAY CAPELLAN Provider: Remi Vila MD :1965 A ge:59 Y S ex:Female Date:01/03/2025 Address:[address] [id number] Pcp:MICHAEL YANEZ N.P. Subjective: * Chief Complaints: [...] 0 01/03/2025 Generated for Viviane negrete/Shakila/Constantino on: 0 03/22/2025 12:14 PM EDT
--- NOTE | 2025-03-22 11:21 | A.OFFVIS_ITS ---
Intake Visit Reasons: 3m/PVR Intake Note: Patient is present for 3M/PVR Urology Medication:VITAMIN B6,SOLIFENACIN Antibiotic Allergy:NONE Blood Thinner:NONE TODAY'S PVR:54ML'S Dot Net Architect Required: No Allergies ondansetron (From ZOFRAN) Allergy (Unknown, Verified 03/22/25 22:33) per H&P sumatriptan (From IMITREX) Allergy (Unknown, Verified 03/22/25 22:33) RASH FROM TABLET NOT INJECTION promethazine (From PHENERGAN) Adverse Reaction (Severe, Verified 03/22/25 22:33) DYSTONIA Medication List - Last Reconciled 03/22/25 by KYLER Bhatia- diltiazem HCl CD 180 mg PO DAILY estradiol 0.01%(0.1mg/gram) Apply a pea-sized amount to urethra daily x1 month and then 3 times per week thereafter 30 days gabapentin 100 mg PO TID levothyroxine 25 mcg PO DAILY losartan 50 mg PO DAILY pantoprazole 40 mg PO DAILY pyridoxine (vitamin B6) 100 mg PO DAILY 90 days riboflavin (vitamin B2) (Vitamin B-2) 200 mg PO BID solifenacin (Vesicare) 5 mg PO DAILY 30 days topiramate 100 mg PO BID HPI Comments Details: Laura is a pleasant 60 year old female patient of Dr. Weir. She has a past medical history of goiter, hypercalciuria interstitial cystitis, BV, osteoporosis, and hyperthyroidism. She presents to the office today for follow- up of her nephrolithiasis, recurrent urinary tract infections and pyelonephritis. Of note, patient was last seen approximately 3 months ago at which time she had been reporting UTI like symptoms and her urine was sent for microgen testing. Microgen 12/22 notes corynebacterium pyruviciproducens, Staphylococcus hemolyticus, Staphylococcus epidermidis, corynebacterium tuberculostearicum, and Staphylococcus lugdunensis. She reports having completed linezolid as prescribed. She reports shortly after initial course of antibiotic therapy she did seek emergency room care however recommendations were made to complete antibiotic therapy as prescribed. In review of patient's chart it appears CT of the abdomen was ordered and performed. These results were reviewed and communicated with the patient today. 01/21 2 mm nonobstructing right renal stone. No hydronephrosis noted bilaterally. She does continue to report intermittent episodes of dysuria. In office urinalysis results reviewed with the patient today. 3+ leukocytes negative nitrates. She does report a longstanding history of constipation and follows up with Dr. Vila. Previous urine cultures are as follows: 01/18 Strep agalactiae, 09/23 Strep agalactiae (grp B), 12/22 E coli, 12/22 E coli Microgen 01/19 Enterococcus faecalis When asked she does report compliance with vitamin B6 as prescribed as well as drinking plenty of water daily. Patient also with a previous history of triali ng oxybutynin for episodes of urinary urgency and frequency however PVRs were borderline elevated and therefore were discontinued. She continues on low-dose VESIcare however patient unsure if this has been helpful as she continues with UTI like symptoms. PVR today 54 mL. We discussed potential causes of lower urinary tract symptoms patient is experiencing as well as further treatment options of recurrent urinary tract infections. All questions were answered. She otherwise offers no other issues or concerns at this time. [facility] Medical History Well woman exam Epidermal cyst Migraine HTN (hypertension) IBS (irritable bowel syndrome) GERD (gastroesophageal reflux disease) Chronic interstitial cystitis Sleep apnea Asthma Anemia Hypercholesteremia Depression Anxiety Sacrococcygeal pilonidal cyst Recurrent UTI Goiter Flank pain Dysuria Hypercalciuria Swelling of joint, ankle, right Swelling of right foot Vitamin D deficiency Hypothyroidism Right patella fracture History of secondary hyperparathyroidism Abnormal mammogram Surgical History History of removal of cyst (~05/12/24) History of bladder surgery H/O bilateral salpingo-oophorectomy S/P gastric bypass H/O left breast biopsy H/O: hysterectomy History of bilateral tubal ligation History of appendectomy Family History Mother Uterine cancer Father No problems noted. 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 Sexual orientation: Straight/Heterosexual Gender identity: Female Female Reproductive History Menstrual Age of Menarche: 13 Review of Systems Const All systems reviewed & are unremarkable except as noted in HPI and below Reports as per HPI Eyes Reports no additional complaints ENT Reports no additional complaints Card Reports no additional complaints Resp Reports no additional complaints GI Reports no additional complaints Reports as per HPI Musc Reports as per HPI Neuro Reports no additional complaints Psych Reports anxiety and Reports depression Endo Reports as per HPI Aman/Lymph Reports no additional complaints Aller/Immun Reports no additional complaints Physical Exam Const General: cooperative, healthy appearing, comfortable, no acute distress, well developed, alert and awake Orientation/consciousness: patient oriented x3 Limitations: no limitations HEENT Head: Yes normal to inspection, Yes normocephalic and Yes atraumatic Ears: hearing grossly normal bilaterally Eyes General: appearance normal, both eyes and all related structures Neck Neck: Yes normal visual inspection and Yes trachea midline Chest Chest palpation & inspection: normal inspection of the chest Resp Effort & Inspection: normal respiratory effort and able to speak in complete sentences Cardio Rate: regular rate GI Inspection: Yes normal to inspection General: Yes no CVA tenderness Back/Spine/Pelvis Back: no CVA tenderness Skin General skin exam: no rashes or lesions noted Neuro General: patient oriented x3 Extrem General: Yes normal to inspection Psych Appearance: grossly normal and well kempt Mental Status: mental status grossly normal Speech and movement: Normal speech and movement present and Clear speech present Affect: normal affect Attitude: cooperative Thought process: Normal thought process present Thought content: Normal thought content present Insight: Fair insight present (Psych) Judgement: Fair judgement present (Psych) Office Procedures Post Void Residual Post Residual Void Post Void Residual (PVR): 54 [id number] Void Residual by ultrasound Results AMB Urinalysis, Automated 2 UA Leukoctes 500 Ynes/uL Last Edit by DIA Hussein on 03/22/25 11:44 UA Nitrite Negative Last Edit by DIA Hussein on 03/22/25 11:44 UA Urobilinogen 0.2 mg/dL Last Edit by DIA Hussein on 03/22/25 11:4 4 UA Protein 15 mg/dL Last Edit by Bull Eaton [facility] on 03/22/25 11:44 UA pH 6.5 Last Edit by Bull Eaton [facility] on 03/22/25 11:44 UA Blood 0 Christiano/uL Last Edit by Bull Eaton [facility] on 03/22/25 11:44 UA Specific [place] 1.015 Last Edit by Bull Eaton [facility] on 03/22/25 11: 44 UA Ketone Negative Last Edit by Bull Eaton [facility] on 03/22/25 11:44 UA Bilirubin 0 mg/dL Last Edit by Bull Eaton [facility] on 03/22/25 11:44 UA Glucose 0 mg/dL Last Edit by Bull Eaton [facility] on 03/22/25 11:44 Results Reviewed Results Reviewed: Laboratory Last Values Urine pH (Auto) 6.5 03/22/25 11:44 Specific [place] (Auto) 1.015 03/22/25 11:44 Urine Protein (Auto) 15 mg/dL 03/22/25 11:44 Glucose (UA)(Auto) 0 mg/dL 03/22/25 11:44 Urine Ketones (Auto) Negative 03/22/25 11:44 Urine Blood (Auto) 0 Christiano/uL 03/22/25 11:44 Urine Nitrite (Auto) Negative 03/22/25 11:44 Urine Bilirubin (Auto) 0 mg/dL 03/22/25 11:44 Urine Urobilinogen (Auto) 0.2 mg/dL 03/22/25 11:44 Leukocyte Esterase (Auto) 500 Ynes/uL 03/22/25 11:44 Date of Service: 12/31/24 Procedure(s): CT abdomen pelvis wo IV con Findings: The lung bases are clear. Partial gastrectomy. Left lower abdominal enteroenteric anastomosis. No bowel obstruction. Up to 13 mm dilatation of the extrahepatic bile duct at least partially secondary to the cholecystectomy. 2 mm nonobstructive right renal stone. No hydronephrosis. [id number] colonic stool. Hysterectomy. Appendix not seen and therefore could not be evaluated. The bones are intact. Spinal degenerative changes. Atherosclerotic calcifications. Nonspecific small sclerotic focus within the left iliac wing. Spleen, pancreas, adrenals, and liver are unremarkable. IMPRESSION: 2 mm nonobstructive right renal stone. No hydronephrosis. Assessment & Plan Assessment & Plan (1) Nephrolithiasis: Code(s): N20.0 - Calculus of kidney Category: Medical (2) Dysuria: Code(s): R30.0 - Dysuria Category: Medical (3) Lower urinary tract symptoms: Code(s): R39.9 - Unspecified symptoms and signs involving the genitourinary system Category: Medical (4) Recurrent UTI: Code(s): N39.0 - Urinary tract infection, site not specified Category: Medical Plan In office urinalysis results with the patient today; as noted above; will send for urine culture; will await results for potential treatment We discussed potential causes of recurrent urinary tract infections as well as further treatment options and risks and benefits of these treatment options. Start Estrace cream as discussed and prescribed. Discussed UTI prevention with D mannose supplement, vitamin-C, increasing fluid intake, behavioral therapy with timed voiding, perineal hygiene and postcoital voiding, and management of constipation with stool softeners and increased fiber intake. Recent CT results reviewed with the patient today; as noted above. Follow-up next available in office cystoscopy; or sooner with any issues, concerns, and or questions. Orders: Orders Urine Culture Today N39.0 - Urinary tract infection, site not specified AMB Urinalysis Automated Today Z13.9 - Encounter for screening, unspecified Medications: New estradiol 0.01%(0.1mg/gram) Apply a pea-sized amount to urethra daily x1 month and then 3 times per week thereafter 42.5 grams 2RF 30 days N36.2 - Urethral caruncle, N39.0 - Urinary tract infection, site not specified, N95.2 - Postmenopausal atrophic vaginitis Patient Instructions: The patient had an opportunity to ask questions regarding the treatment plan. All questions were answered. Physical exam, labs, and imaging were discussed and reviewed in detail. As well as risks, benefits, and discussion of treatment choices. No major barriers to understanding were identified. The patient expressed understanding and agreement with the above treatment plan. The patient was made aware they should contact our office by phone for worsening of their current condition, the appearance of new symptoms, or with any questions or concerns. Compliance is encouraged with any medications and follow up testing that is ordered. It is a privilege to be allowed the opportunity to participate in? your urological care.? Again, if you have any questions or concerns If you have any questions or concerns please do not hesitate to contact me. The office is [phone]. This note is constructed using voice recognition software. While every effort has been made to ensure accuracy structural engineer errors may have been included. Yours sincerely, JEANETH Bhatia Coding Level of Care Code Est Pt Level 4 (93825) Complex EM visit Add On G2211 Diagnoses Nephrolithiasis N20.0 Dysuria R30.0 Lower urinary tract symptoms R39.9 Recurrent UTI N39.0 CPT Codes Post Residual Void - PVR CPT Code: 03375-[id number] Void Residual by ultrasound ([id number])
--- OUTSIDE RECORDS SUMMARY | 2025-03-22 12:14 | XMS_ITS ---
Author Organization [employer] Address [address] [place] [address] [address] [place] [address] Care Team Providers Care Communications Department Head Name Role Phone Nupur Weir Primary Care Provider [phone] Abel Chavarria RN Unavailable [phone] Margaerth Chavarria Unavailable CM Complex Status:Enrolled (Active) Start date:02/26/2025 Enrollment date:03/15/2025 Enrollment reason:ADT Feed Overview ED- Pt went [place] [facility] [place]. Case Team Name Relationship Phone Abel Chavarria RN(Responsible Staff) Registered Nurse [phone] Continued Care and Services Coordination
== END 2025-03-22 12:15 | disposition home or self-care (01) ==
LOC: HO.HUSH 11:18
PROVIDERS: PCP Nurse Practitioner Primary Care; Visit Provider Nurse Practitioner Family
DX: Z13.9 Encounter for screening, unspecified (principal)

== ENCOUNTER 2025-04-04 14:04 | Outpatient (REF) | payer MEDICAID, SELFPAY ==
--- OUTSIDE RECORDS SUMMARY | 2025-01-03 05:20 | XMS_ITS ---
Author Organization [facility] Address [address] [facility] [address] [place] [address] Care Team Providers Care Automation Qa Lead Name Role Phone MICHAEL YANEZ N.P. Primary Care Provider Fidencio Langley Jr [phone] REASON FOR VISIT dysphagia Encounters Encounter Location Date Provider Diagnosis [facility] [address] [place] [phone] 01/03/2025 Fidencio Vila Jr Plan Of Treatment Next Appt Details Provider Name:Fidencio haider Jr, 07/18/2025 11:20:00 AM, [address] [place] [address], [address], [place], [address], Progress Notes * TIFFANIE TYLERADOB: 6 (60 yo F)Acc No.[id number]:01/03/2025 Progress Notes Patient: TAY CAPELLAN Provider: Remi Vila MD :1965 A ge:59 Y S ex:Female Date:01/03/2025 Address:[address] [id number] Pcp:MICHAEL YANEZ N.P. Subjective: * Chief Complaints: [...] 01/03/2025 Generated for Viviane negrete/Shakila/Constantino on: 0 04/04/2025 02:38 PM EDT
--- NOTE | ~2025-04-04 | XR_ITS ---
EXAMINATION: XR CHEST 2 VIEWS HISTORY: right chest pain, hemoptysis COMPARISON: Comparison is made with the prior examination dated 03/10/2025. FINDINGS: PA and lateral views of the chest are submitted. The lungs are mildly hyperinflated, consistent with COPD. The lungs are clear. There is no pleural effusion, pneumothorax, or pulmonary vascular congestion. The heart is normal in size. There is degenerative disc disease of the spine. There are surgical clips at the GE junction. XR/XR chest 2V IMPRESSION: COPD. No acute cardiopulmonary abnormality. Electronically signed by: Allen Horta MD 04/05/2025 07:18 AM EDT
--- OUTSIDE RECORDS SUMMARY | 2025-04-04 14:39 | XMS_ITS ---
Author Organization [employer] Address [address] [place] [address] [address] [place] [address] Care Team Providers Care Senior System Operator Name Role Phone Nupur Weir Primary Care Provider [phone] Abel Chavarria RN Unavailable [phone] Margareth Chavarria Unavailable CM Complex Status:Enrolled (Active) Start date:02/26/2025 Enrollment date:03/15/2025 Enrollment reason:ADT Feed Overview ED- [place] [facility] [place]. Case Team Name Relationship Phone Abel Chavarria RN(Responsible Staff) Registered Nurse [phone] Continued Care and Services Coordination
[2025-04-04 15:22] LABS: D Dimer High Sensitivity 200 NG/ML
[2025-04-04 15:40] LABS: Blood Urea Nitrogen 11 mg/dL (9-16); Estimated Glomerular Filt Rate > 60
== END 2025-04-04 14:05 | disposition home or self-care (01) ==
LOC: HO.XRAY 14:04
PROVIDERS: PCP Nurse Practitioner Primary Care; Visit Provider Emergency Medicine
DX: R04.2 Hemoptysis (principal); R07.9 Chest pain, unspecified
CPT/HCPCS: 36415; 71046; 82565; 84520; 85379

== ENCOUNTER → 2025-04-04 14:23 | Outpatient (BNV) | payer MEDICAID, SELFPAY | PROVIDERS: PCP Nurse Practitioner Primary Care; Visit Provider Radiology Diagnostic Radiology | DX: R10.11 Right upper quadrant pain (principal) | CPT/HCPCS: 71046 ==

== ENCOUNTER 2025-04-05 08:09 | Emergency (ER) | payer MEDICAID, SELFPAY ==
--- OUTSIDE RECORDS SUMMARY | 2025-01-03 05:20 | XMS_ITS ---
Author Organization [facility] Address [address] [facility] [address] [place] [address] Care Team Providers Care Data Software Engineer Name Role Phone MICHAEL YANEZ N.P. Primary Care Provider Fidencio Langley Jr REASON FOR VISIT dysphagia Encounters Encounter Location Date Provider Diagnosis [facility] [address] [place] [phone] 01/03/2025 Fidencio Vila Jr Plan Of Treatment Next Appt Details Provider Name:Fidencio haider Jr, 07/18/2025 11:20:00 AM, [address] [place] [address], [address], [place], [address], Progress Notes * TIFFANIE TYLERADOB: 6 (60 yo F)Acc No.[id number]:01/03/2025 Progress Notes Patient: TAY CAPELALN Provider: Remi Vila MD :1965 A ge:59 Y S ex:Female Date:01/03/2025 Address:[address] Pcp:MICHAEL YANEZ N.P. Subjective: * Chief Complaints: [...] 01/03/2025 Generated for Viviane negrete/Shakila/Constantino on: 0 04/05/2025 09:25 AM EDT
--- NOTE | ~2025-04-05 | CT_ITS ---
EXAMINATION: CT ABDOMEN AND PELVIS WITHOUT CONTRAST CLINICAL INFORMATION: Right upper quadrant/flank pain. Rule out right-sided hydronephrosis/kidney stone. COMPARISON: 12/31/2024, 07/05/2024. TECHNIQUE: Multidetector volumetric imaging was performed from the superior aspect of the liver through the pubic symphysis. Sagittal and coronal reformatted images were obtained on the technologist's workstation. This CT examination was performed using dose optimization techniques as appropriate, variously including the following: *Automated exposure control *Adjustment of mA and/or kV according to patient size (this includes techniques or standardized protocols for targeted exams where dose is matched to indication/reason for exam; i.e. extremities or head) *Use of iterative reconstruction technique FINDINGS: LUNG BASES: Lung bases are clear. There are no effusions. Heart size is normal. LIVER, GALLBLADDER, AND BILIARY TREE: The unenhanced liver is normal in size, shape, and attenuation. No focal hepatic lesion or biliary ductal dilatation is present. The gallbladder is surgically absent. Prominent common bile duct, unchanged, measuring up to 1.1 cm. This is likely secondary to reservoir effect from cholecystectomy. PANCREAS: Unremarkable. SPLEEN: Unremarkable. ADRENAL GLANDS: Unremarkable. KIDNEYS AND URETERS: Right kidney: 3 mm nonobstructing calculus in the midpole. Right kidney otherwise normal. No hydronephrosis. No hydroureter. Left kidney: Normal appearance. No hydronephrosis. No hydroureter. BLADDER: Unremarkable. GASTROINTESTINAL TRACT: There has been a prior gastric bypass procedure. The gastric pouch and gastrojejunostomy have an unremarkable appearance. The distal anastomosis demonstrates what appears to be an intussusception. There is extensive fecal residue seen throughout the colon and rectum in keeping with constipation. There is no small bowel dilatation or obstruction. There is no large bowel dilatation or wall thickening. There is no CT evidence of appendicitis. ABDOMINAL WALL: No significant hernia is appreciated. LYMPH NODES: Normal. VASCULAR: Unremarkable. PELVIC VISCERA: Probable hysterectomy. No adnexal masses. OSSEOUS STRUCTURES: There are degenerative changes of the spine particularly involving L5-S1. There is a bone island in the left iliac bone. CT/CT abdomen pelvis wo IV con IMPRESSION: 1. There is no obstructive uropathy. There is a nonobstructing 3 mm calculus in the midpole right kidney. 2. There has been gastric bypass procedure. There is what appears to be an intussusception at the distal anastomosis. Given no associated small bowel obstruction, this is likely transient. Would correlate with clinical presentation and symptomatology. 3. There is moderate constipation present. 4. Stable prominence of the common bile duct measuring 1.1 cm. This is likely secondary to reservoir effect from cholecystectomy. 5. There has been a cholecystectomy. 6. There has been a hysterectomy. Electronically signed by: Gallo Schuster MD 04/05/2025 10:18 AM EDT
--- NOTE | ~2025-04-05 | US_ITS ---
EXAMINATION: US ABDOMEN LIMITED HISTORY: RUQ pain TECHNIQUE: Real-time grayscale ultrasound imaging of the liver and pancreas was performed and images were reviewed. COMPARISON: Correlation is made with a CT of the abdomen without contrast performed earlier in the day. FINDINGS: Liver: The right lobe of the liver measures 14.0 cm in size. The left lobe of the liver measures 10.7 cm in size. The liver demonstrates slightly increased echotexture, consistent with steatosis. No focal mass or intrahepatic biliary ductal dilatation is identified. There is normal hepatopedal flow in the portal vein. Gallbladder and biliary tree: The gallbladder is surgically absent. The common bile duct measures 12 mm diameter. Pancreas: The pancreatic head, neck, and body are unremarkable. The pancreatic tail is obscured by bowel gas. There is no free fluid in the right upper quadrant. US/US abdomen limited IMPRESSION: Mild hepatic steatosis. The common bile duct measures 13 mm in diameter which may be within normal limits for a patient status post cholecystectomy. If there is clinical concern for choledocholithiasis, MRCP could be performed. Electronically signed by: Allen Horta MD 04/05/2025 01:25 PM EDT
--- NOTE | ~2025-04-05 | XR_ITS ---
EXAMINATION: XR CHEST CLINICAL INFORMATION: right upper quadrant pain COMPARISON: 04/04/2025. TECHNIQUE: 2 views of the chest were obtained. FINDINGS: The cardiac, hilar, and mediastinal contours are normal. The lungs are somewhat hyperaerated, however bilaterally. There is no pneumothorax or pleural effusion. There is no focal osseous or soft tissue abnormality. There are mild degenerative spinal changes. There are surgical clips throughout the epigastric region. XR/XR chest 2V IMPRESSION: No active pulmonary disease. Electronically signed by: Gallo Schuster MD 04/05/2025 09:56 AM EDT
[2025-04-05 08:18] VITALS: BP 120/74; PULSE 71; RESP 18; TEMP 36.1; O2SAT 100; BMI 25.8
--- NOTE | 2025-04-05 09:11 | ED_ITS ---
HPI - General Adult General Chief complaint: General Medical Stated complaint: pain in lung Time Seen by Provider: 04/05/25 09:09 Source: patient Mode of arrival: ambulatory Limitations: no limitations History of Present Illness HPI narrative: Well-appearing 60-year-old female presenting to the emergency department today for evaluation of what she describes as lung pain. This has been going on for the last week and a half. It is worse with lying down and if she leans to her right side. Worse with movement and with eating. Past medical history significant for both a cholecystectomy and appendectomy as well as recurrent UTIs and kidney stones. It does hurt when she takes a deep breath than but it does not make her feel short of breath. She has tried both pain patches as well as cold and heat compresses all of which has made no difference for her. She did seek medical attention to her walk-in PCP clinic a week ago and they did not give her any answers they just told her to go to the ED if it is worse. There was no workup or imaging done. Patient denies this happening before in the past. She is also endorsing dysuria with frequency for the last 2 days. She is denying any vaginal symptoms or concern for STIs. She is not exhibiting any fevers chills coughing nausea or vomiting or diarrhea she has not had any body aches joint pain or rashes. Despite chart being flagged for salesperson recreational vehicles need- patient declines this and communicated well in Icelandic. Upon receiving the results of the CT abdomen and pelvis is shown that patient had prior gastric bypass surgery I questioned her about this she stated it was 4 years ago. Related Data Home Medications ?Medication ?Instructions ?Recorded ?Confirmed diltiazem HCl 180 mg 180 mg PO DAILY 11/24/21 capsule,extended release 24 hr pantoprazole 40 mg tablet,delayed 40 mg PO DAILY 11/2403/22/25 release losartan 50 mg tablet 50 mg PO DAILY blood pressur e 11/24/22 03/22/25 levothyroxine 25 mcg tablet 25 mcg PO DAILY 01/08/23 0 03/22/25 riboflavin (vitamin B2) 100 mg 200 mg PO BID 01/08/23 03/22/25 tablet (Vitamin B-2) topiramate 50 mg tablet 100 mg PO BID 01/08/2303/22 Previous Rx's ?Medication ?Instructions ?Recorded gabapentin 100 mg capsule 100 mg PO TID #270 caps 0404/22 solifenacin 5 mg tablet (Vesicare) 5 mg PO DAILY 30 da ys #30 tabs 02/06/25 estradiol 0.01% (0.1 mg/gram) See Rx Instructions .Rou te 3XW 30 03/22/25 vaginal cream days #42.5 grams pyridoxine (vitamin B6) 100 mg 100 mg PO DAILY 90 days #90 tabs 03/22/25 tablet fosfomycin tromethamine 3 gram 3 g PO Q3D 9 days #3 ea 03/26/25 oral packet lidocaine 5 % topical patch 1 patch topical DAILY pain #30 ea 04/05/25 nitrofurantoin 100 mg PO Q12H 5 days #10 ca ps 04/05/25 monohydrate/macrocrystals 100 mg capsule (Macrobid) Allergies Allergy/AdvReac Type Severity Reaction Status Date / Time ondansetron (From ZOFRAN) Allergy Unknown per H&P Verified 04/05/25 08:20 sumatriptan (From IMITREX) Allergy Unknown RASH FROM Verified 04/05/25 08:20 TABLET NOT INJECTION promethazine (From PHENERGAN) AdvReac Severe DYSTONIA Verified 04/05/25 08:20 Review of Systems 2 Review of Systems: Yes all other systems are reviewed and are negative [facility] Past Medical History Attestation statement: The following information was validated with the patient. Source: old records reviewed and nursing notes reviewed Medical History Well woman exam Epidermal cyst Migraine HTN (hypertension) IBS (irritable bowel syndrome) GERD (gastroesophageal reflux disease) Chronic interstitial cystitis Sleep apnea Asthma Anemia Hypercholesteremia Depression Anxiety Sacrococcygeal pilonidal cyst Recurrent UTI Goiter Flank pain Dysuria Hypercalciuria Swelling of joint, ankle, right Swelling of right foot Vitamin D deficiency Hypothyroidism Right patella fracture History of secondary hyperparathyroidism Abnormal mammogram Surgical History History of removal of cyst (~05/12/24) History of bladder surgery H/O bilateral salpingo-oophorectomy S/P gastric bypass H/O left breast biopsy H/O: hysterectomy History of bilateral tubal ligation History of appendectomy Family History Family History Mother Uterine cancer Father No problems noted. 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 Sexual orientation: Straight/Heterosexual Gender identity: Female Physical Exam ED Vital Signs: Vital Signs - 24 hr 04/05/25 08:18 04/05/25 09:28 04/05/25 13:13 Temperature 97 F 98.4 F 98.1 F Pulse Rate 71 64 60 Respiratory Rate 18 18 16 Blood Pressure 120/74 114/74 121/76 Pulse Oximetry 100 100 100 Oxygen Delivery Method Room Air Room Air Room Air BMI result Body Mass Index 25.8 Const General: cooperative, healthy appearing, no acute distress and other (uncomfortable appearing leaning to left side and sitting upward) Nutritional Appearance: average body habitus Orientation/consciousness: patient oriented x3 Limitations: no limitations HENMT Head: Yes normal to inspection Ears: hearing grossly normal bilaterally General nose exam: Normal external nose present Face and sinus: Yes normal facial exam Mouth: Normal oral and palatal mucosa present Teeth and gingiva: dentition normal Eyes General: appearance normal, both eyes and all related structures Alignment and Position: alignment normal Periorbital: periorbital findings normal Eyelids: Yes eyelids normal Conjunctivae: conjunctivae normal Sclerae: sclerae normal Corneas: corneas normal Pupils: Equal, round and reactive pupils present EOM: EOMs intact bilaterally Neck Neck: Yes normal visual inspection, Yes full ROM and Yes no lymphadenopathy Chest Chest palpation & inspection: normal inspection of the chest and other (TTP right upper quadrant) Resp Effort & Inspection: normal respiratory effort and able to speak in complete sentences Auscultation: clear to auscultation bilaterally Cardio Jugular venous distension: no JVD Palpation: normal PMI Rate: regular rate Rhythm: regular rhythm Bruits: other (no bruit) Peripheral pulses: Peripheral pulses 2+ throughout GI Inspection: Yes normal to inspection Palpation (GI): Soft to palpation and Tenderness to palpation present (GI) (RUQ + murphys but no gallbladder) Percussion: Yes normal to percussion Auscultation: Hyperactive bowel sounds present Rectal Exam - Female: deferred General: Yes CVA tenderness on the right Back/Spine/Pelvis Back: CVA tenderness Thoracic/Lumbar Spine: thoracic and lumbar spine normal to inspection Skin General skin exam: other (several tattoos no infectious lesions noted) Neuro General: patient oriented x3 Cranial nerves: Yes Equal, round and reactive pupils present Extrem General: Yes normal to inspection, Yes full ROM and Yes capillary refill normal Medications Administered Discontinued Medications Generic Name Dose Route Start Last Admin Trade Name Freq PRN Reason Stop Dose Admin Acetaminophen 975 mg 04/05/25 09:28 04/05/25 09:57 Acetaminophen 325 Mg Tablet PO 04/05/25 09:29 975 mg ONCE ONE Administration Medical Decision Making Medical Decision Making MDM Narrative: Well appearing 60 year old F here for evaluation of RUQ pain for the last 10 days. Upon arrival to ED she is afebrile, saturating 100 % on RA with normal stable vitals signs appearing in no distress. She has tender abd in the RUQ and suprapubic region, but no gaurding. Will obtain labs and imaging. Will give tylenol for pain.Differentials are broad at this point as PCP referred for lungs, but history is more suggestive of GI/ ailment. She has negative murphys not likely gallbladder etiology. No pleuritic pain constant, nonexertional not consistent with ACS etiology either. 1045am: CT results rev'd of abd/pelvis with intussusception at the level of the anastomosis from prior gastric surgery that occurred 4 years ago could be transient. Consult placed to surgery Dr. Ashley. 1104: Dr. Ashley reviewed case and imaging, he recommended I consult with bariatric surgery. COnsult placed to construction engineering manager RAMONE Brown. UA with pyuria will treat for UTI with macrobid and culture to follow. No pyelo. 1233: Bariatric specialist bowel RAMONE saw patient at bedside and after discussing patient with supervising MD they have recommended that patient have a right upper quadrant ultrasound to look at the biliary duct to make sure no stone blockage and if that is normal plan is to discharge patient home on a liquid diet only until they see her for follow up with plan for upper endo. Right upper quadrant ultrasound ordered. 1332: RUQ Ultrasound without evidence of obvious CBD stone. Plan to send home with care plan. Differential Diagnosis Differential Diagnoses: The differential diagnosis associated with the presentation includes kidney stone hepatobiliary disease musculoskeletal strain abdominal mass PE pyelonephritis Admission/Observation Consideration of admission/observation: Escalation of care including admission/observation considered Patient would have been admitted to the hospital had her work up had any findings where hospital admission was appropriate and her clinical presentation warranted hospital admission. Consult Healthcare Provider Management of the patient was discussed with: Facing Cutting Machine Operator See MDM Lab Data [facility] Lab Attestation statement: I reviewed the patient's lab results. NO luekocytosis. D dimer is negative. PE can be ruled out. There is bordeline elevation of ALT, but otherwise no evidence for hepatobiliary dysfunction or pancreatitis. No OLGA LIDIA, but urine suggestive of UTI. Will reflex to culture. 04/05/25 10:05 04/05/25 10:05 Labs: Lab Results 04/05/25 04/05/25 Range/Units 10:05 10:08 WBC 4.4 L (4.8-10.8) X10*3/uL RBC 4.62 (4.20-5.50) X10*6/uL Hgb 13.6 (12.0-16.0) g/dl Hct 41.1 (37.0-47.0) % MCV 89.0 (80.0-98.0) fL MCH 29.4 (27.0-33.0) pg MCHC 33.1 (31.0-35.0) g/dl RDW 13.5 (11.0-16.0) % Plt Count 235 (160-400) X10*3/uL MPV 8.0 L (9.4-12.3) fL Immature Gran % (Auto) 0.2 (0.0-0.4) % Neut % (Auto) 42.5 L (45-73) % Lymph % (Auto) 41.9 H (20-40) % [place] % (Auto) 11.3 H (2-11) % Eos % (Auto) 3.2 (0-4) % Baso % (Auto) 0.9 (0-2) % Lymph # (Auto) 1.9 (1.2-4.9) X10*3/uL [place] # (Auto) 0.5 (0.1-1.2) X10*3/uL Eos # (Auto) 0.1 (0.0-0.4) X10*3/uL Baso # (Auto) 0.0 (0.0-0.2) X10*3/uL Abs Immat Gran (auto) 0.01 (0.00-0.03) X10*3/uL Absolute Neuts (auto) 1.9 L (2.0-8.3) x10*3/uL Absolute Nucleated RBC 0.000 (0.0-0.012) X10*3/uL Nucleated RBC % (auto) 0.0 (0.0-0.2) /100WBC D-Dimer High Sensitivty 164 NG/ML Sodium 141 (135-145) mmol/L Potassium 4.7 (3.3-5.1) mmol/L Chloride 112 H (96-108) mmol/L Carbon Dioxide 23 (22-29) mmol/L Anion Gap 11 L (12-20) BUN 13 (9-16) mg/dL Creatinine 0.70 (0.5-1.4) mg/dL Estim Creat Clear Calc 85.1 Estimated GFR > 60 Random Glucose 96 (60-115) mg/dL Calcium 8.9 (8.4-10.2) mg/dL Total Bilirubin 0.8 (0.0-1.0) mg/dL AST 27 (5-31) U/L ALT 41 H (0-31) U/L Alkaline Phosphatase 98 (39-117) U/L Troponin I High Sens < 2.7 (<3.5-17.0) ng/L Total Protein 6.6 (6.5-8.0) g/dL Albumin 3.9 (3.5-5.0) g/dL Lipase 19 (8-78) U/L Urine Color Yellow Urine Appearance Turbid Urine pH 7.0 (5.0-9.0) Ur Specific [place] 1.015 (1.005-1.025) Urine Protein Negative (Neg-Trace) mg/dL Urine Glucose (UA) Negative (Negative) mg/dL Urine Ketones Negative (Negative) mg/dL Urine Blood Negative (Negative) Urine Nitrite Negative (Negative) Ur Leukocyte Esterase Moderate (2+) H (Negative) Urine RBC 0-2 (0-2) /HPF Urine WBC 6-10 H (0-5) /HPF Ur Squamous Epith Cells 0-2 (0-2) /HPF Urine Bacteria None Seen (None Seen) Hyaline Casts 0-2 (0-2) /LPF Independent Interpretation I performed an independent interpretation of an: EKG, Plain X-Ray, Ultrasound and CT Scan Radiology Impression Discussion of test interpretation with radiology: I have reviewed the radiologist's reading. Tests considered The following testing was considered but not selected: CTA had there been concerns for PE. Prescription Management I considered prescription management with: Pain Medication and Antibiotic Chronic Conditions Patient?s care impacted by: Other Discharge Plan Discharge Clinical Impression: Abdominal pain, Dysuria, Calculus, kidney, Anterior chest wall pain Patient Disposition: Home, Self-Care Instructions: Dysuria (ED), Abdominal Pain (ED), Chest Wall Pain (ED) Additional Instructions: You were seen in the emergency department today due to right upper quadrant pain. You had both abdominal labs and imaging done including a ultrasound of the right upper quadrant. There was concern for potential intussusception of the area of where he had surgery before in the past but this was evaluated bedside by bariatric surgery team who did not feel agreed to this finding. Your lab work today was reassuring but suggest potential for UTI as well. Given that there is no fluid collection or kidney stones. We will treat this with Macrobid and send a culture to follow. Plan for diet restrictions until bariatric team sees you and recommends otherwise: Organic protein powder. 1 scoop to be mixed in with 8 oz of water or almond milk 5 times a day. Absolutely no food otherwise. They do plan to do an upper endoscopy with you to be further discussed at your follow up with them next week. If you experience any worsening pain or discomfort please do not hesitate to return to the emergency department. To help with the chest wall pain we will prescribe lidocaine patches. Prescriptions: New lidocaine 5 % adhesive patch,medicated 1 patch topical DAILY Qty: 30 0RF Rx Instructions: leave on most painful area for up to 12 hrs nitrofurantoin monohyd/m-cryst [Macrobid] 100 mg capsule 100 mg PO Q12H 5 Days Qty: 10 0RF Rx Instructions: must administer with a meal/food No Action gabapentin 100 mg capsule 100 mg PO TID Qty: 270 3RF solifenacin [Vesicare] 5 mg tablet 5 mg PO DAILY 30 Days Qty: 30 1RF pyridoxine (vitamin B6) 100 mg tablet 100 mg PO DAILY 90 Days Qty: 90 0RF fosfomycin tromethamine 3 gram packet 3 g PO Q3D 9 Days Qty: 3 0RF Rx Instructions: One dose (one packet) every 3 days pantoprazole 40 mg tablet,delayed release (DR/EC) 40 mg PO DAILY diltiazem HCl 180 mg capsule,extended release 24hr 180 mg PO DAILY losartan 50 mg tablet 50 mg PO DAILY levothyroxine 25 mcg tablet 25 mcg PO DAILY topiramate 50 mg tablet 100 mg PO BID riboflavin (vitamin B2) [Vitamin B-2] 100 mg tablet 200 mg PO BID estradiol 0.01 % (0.1 mg/gram) cream See Rx Instructions .Route 3XW 30 Days Qty: 42.5 2RF Rx Instructions: Apply a pea-sized amount to urethra daily x1 month and then 3 times per week thereafter Referrals: Dex Brown PA [Physician Ship'S Captain, Bariatric Surgery] Referral Note: follow up next week Interventions: ED Discharge Assessment Last Done: 04/05/25 14:26 Discharge Date/Time: 04/05/25 14:26 Print Language: Belarusian
--- OUTSIDE RECORDS SUMMARY | 2025-04-05 09:25 | XMS_ITS ---
Author Organization [employer] Address [address] [place] [address] [address] [place] [address] Care Team Providers Care Court Reporter Name Role Phone Nupur Weir Primary Care Provider [phone] Abel Chavarria RN Unavailable [phone] Margareth Chavarria Unavailable CM Complex Status:Enrolled (Active) Start date:02/26/2025 Enrollment date:03/15/2025 Enrollment reason:ADT Feed Overview ED- [place] [facility] [place]. Case Team Name Relationship Phone Abel Chavarria RN(Responsible Staff) Registered Nurse [phone] Continued Care and Services Coordination
[2025-04-05 09:28] VITALS: BP 114/74; PULSE 64; RESP 18; TEMP 36.9; O2SAT 100
--- NOTE | 2025-04-05 09:29 | ECG_ITS ---
Test Reason : PAIN WITH INSPIRATION Blood Pressure : */* mmHG Vent. Rate : 61 BPM Atrial Rate : 61 BPM P-R Int : 164 ms QRS Dur : 90 ms QT Int : 416 ms P-R-T Axes : -10 9 7 degrees QTcB Int : 418 ms Normal sinus rhythm Normal ECG When compared with ECG of 10-Mar-2025 11:23, No significant change was found Referred By: Alisha Saldivar Electronically Signed By: HUMBERTO LAKE
--- NOTE | 2025-04-05 09:58 | PC.NURSE ---
patient returned from radiology- a&ox3, vss, pt c/o 06/08 rt upper abd/flank pain, pt medicated with tylenol per order, ekg performed, tech to draw labs, call smith within reach, plan of care ongoing
[2025-04-05 10:09] LABS: MANUAL DIFF FLAG NO
[2025-04-05 10:11] LABS: Hematocrit 41.1 % (37.0-47.0); Hemoglobin 13.6 g/dl (12.0-16.0); Imm Gran Abs Auto 0.01 X10*3/uL (0.00-0.03); Imm Gran Pct Auto 0.2 % (0.0-0.4); Lymphocytes Absolute Auto 1.9 X10*3/uL (1.2-4.9); Mean Corpuscular HGB Conc 33.1 g/dl (31.0-35.0); Mean Corpuscular Hemoglobin 29.4 pg (27.0-33.0); Mean Corpuscular Volume 89.0 fL (80.0-98.0); NRBC Abs Auto 0.000 X10*3/uL (0.0-0.012); NRBC Pct Auto 0.0 /100WBC (0.0-0.2); Platelet Count 235 X10*3/uL (160-400); Red Blood Count 4.62 X10*6/uL (4.20-5.50); White Blood Count 4.4 X10*3/uL (4.8-10.8)
[2025-04-05 10:16] LABS: Appearance Urine Turbid; Glucose Urine UA Negative (Negative); PH 7.0 (5.0-9.0); Specific Gravity - Urine 1.015 (1.005-1.025); UMIC TRIGGER UACC YES
[2025-04-05 10:20] LABS: UACC Culture Trigger YES
[2025-04-05 10:21] LABS: D Dimer High Sensitivity 164 NG/ML
[2025-04-05 10:24] LABS: Alanine Aminotransferase 41 U/L (0-31); Albumin Level 3.9 g/dL (3.5-5.0); Alkaline Phosphatase 98 U/L (39-117); Anion Gap 11 (12-20); Aspartate Amino Transferase 27 U/L (5-31); Blood Urea Nitrogen 13 mg/dL (9-16); Calcium 8.9 mg/dL (8.4-10.2); Carbon Dioxide 23 mmol/L (22-29); Chloride 112 mmol/L (96-108); Creatinine Clr Calc Pharmacy 85.1; Estimated Glomerular Filt Rate > 60; Lipase 19 U/L (8-78); Potassium 4.7 mmol/L (3.3-5.1); Sodium 141 mmol/L (135-145); Total Protein 6.6 g/dL (6.5-8.0)
[2025-04-05 10:36] LABS: Troponin-I High Sensitivity < 2.7 ng/L (<3.5-17.0)
[2025-04-05 13:13] VITALS: BP 121/76; PULSE 60; RESP 16; TEMP 36.7; O2SAT 100
--- NOTE | 2025-04-05 13:31 | PM.CNGS ---
History of Present Illness Consult details Consult date: 04/05/25 Narrative: Patient is a 60-year-old female with a history of gastric bypass performed by Dr. Potter in October 2017. She returned to the hospital in June 2018 with abdominal pain, found to have anastomotic ulcer and acute cholecystitis. She underwent laparoscopic cholecystectomy in June 2018 and eventual healing of her ulcer. She was last seen in the office in October 2020. Lost to follow-up since then. She presented to the emergency department today with right upper quadrant abdominal pain for the last 10 days. She does state that she felt as though food caused some discomfort upon swallowing for the last 3 months. Describes this pain is different. Currently right upper quadrant abdominal pain worse with deep inspiration. She does report taking pantoprazole, avoiding alcohol NSAIDs and tobacco. In the emergency room, labs were fairly benign. CT scan was consider for possible distal anastomosis intussusception. She was also found to have positive urinalysis. [facility] Past Medical History Medical History Well woman exam Epidermal cyst Migraine HTN (hypertension) IBS (irritable bowel syndrome) GERD (gastroesophageal reflux disease) Chronic interstitial cystitis Sleep apnea Asthma Anemia Hypercholesteremia Depression Anxiety Sacrococcygeal pilonidal cyst Recurrent UTI Goiter Flank pain Dysuria Hypercalciuria Swelling of joint, ankle, right Swelling of right foot Vitamin D deficiency Hypothyroidism Right patella fracture History of secondary hyperparathyroidism Abnormal mammogram Family History Family History Mother Uterine cancer Father No problems noted. Surgical History Surgical History History of removal of cyst (~05/12/24) History of bladder surgery H/O bilateral salpingo-oophorectomy S/P gastric bypass H/O left breast biopsy H/O: hysterectomy History of bilateral tubal ligation History of appendectomy Social History Social History Household Members Other:: son Housing: Apartment Are you a primary child care attendant school to a significant other at home: No Do you presently have visiting nurse or other home services: No Alcohol intake: former Comment: counts correct Patient Tobacco Use Status: Never used Tobacco Smoked in Last 30 Days: Yes Second Hand Smoke Exposure: No Use of substances other than those prescribed or required for medical reasons: No Advance Directives: Yes Advance Directives on File: Yes Advance Directives Date on File: 12/29/22 Do you have a plan to hurt others: No Plan Patient : No Current occupational status: disabled 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 Sexual orientation: Straight/Heterosexual Gender identity: Female Meds Allergies Allergy/AdvReac Type Severity Reaction Status Date / Time ondansetron (From ZOFRAN) Allergy Unknown per H&P Verified 04/05/25 08:20 sumatriptan (From IMITREX) Allergy Unknown RASH FROM Verified 04/05/25 08:20 TABLET NOT INJECTION promethazine (From PHENERGAN) AdvReac Severe DYSTONIA Verified 04/05/25 08:20 Home Medications ?Medication ?Instructions ?Recorded ?Confirmed ?Last Taken ?Type diltiazem HCl 180 mg 180 mg PO DAILY 11/24/21 03/22/25 05/11/24 History capsule,extended release 24 hr pantoprazole 40 mg tablet,delayed 40 mg PO DAILY 11/24/21 03/22/25 Unknown History release losartan 50 mg tablet 50 mg PO DAILY blood pressure 11/24/22 03/22/25 05/11/24 History levothyroxine 25 mcg tablet 25 mcg PO DAILY 01/08/23 03/22/25 Unknown History riboflavin (vitamin B2) 100 mg 200 mg PO BID 01/08/23 03/22/25 Unknown History tablet (Vitamin B-2) topiramate 50 mg tablet 100 mg PO BID 01/08/23 03/22/25 Unknown History Physical Exam Vital Signs: Vital Signs: Last Vital Signs Temp 98.1 F 04/05/25 13:13 Pulse 60 04/05/25 13:13 Resp 16 04/05/25 13:13 BP 121/76 04/05/25 13:13 Pulse Ox 100 04/05/25 13:13 O2 Del Method Room Air 04/05/25 13:13 BMI result Body Mass Index 25.8 Const: General: cooperative, healthy appearing and no acute distress Orientation/consciousness: patient oriented x3 HEENT: Head: Yes normal to inspection Ears: hearing grossly normal bilaterally General nose exam: Normal external nose present Face and sinus: Yes normal facial exam Eyes: General: appearance normal, both eyes and all related structures Chest: Chest palpation & inspection: tenderness costal cartilage right anterior-axillary line Resp: Effort & Inspection: normal respiratory effort Auscultation: clear to auscultation bilaterally Cardio: Rate: regular rate Rhythm: regular rhythm Heart sounds: S1 normal heart sound present and S2 normal heart sound present GI: Inspection: Yes normal to inspection, No distended and Yes obesity Palpation (GI): Soft to palpation, nontender and no guarding Auscultation: normal bowel sounds : General: Yes no CVA tenderness Back/Spine/Pelvis: Back: no CVA tenderness Skin: General skin exam: no rashes or lesions noted Neuro: General: patient oriented x3 Extrem: General: No edema Psych: Appearance: grossly normal Mental Status: mental status grossly normal Speech and movement: Normal speech and movement present Affect: normal affect Attitude: cooperative Results Labs 04/05/25 10:05 04/05/25 10:05 Labs: Abnormal lab results 04/05/25 04/05/25 Range/Units 10:05 10:08 WBC 4.4 L (4.8-10.8) X10*3/uL MPV 8.0 L (9.4-12.3) fL Neut % (Auto) 42.5 L (45-73) % Lymph % (Auto) 41.9 H (20-40) % [place] % (Auto) 11.3 H (2-11) % Absolute Neuts (auto) 1.9 L (2.0-8.3) x10*3/uL Chloride 112 H (96-108) mmol/L Anion Gap 11 L (12-20) ALT 41 H (0-31) U/L Ur Leukocyte Esterase Moderate (2+) H (Negative) Urine WBC 6-10 H (0-5) /HPF Short CBC 04/05/25 Range/Units 10:05 WBC 4.4 L (4.8-10.8) X10*3/uL Hgb 13.6 (12.0-16.0) g/dl Hct 41.1 (37.0-47.0) % Plt Count 235 (160-400) X10*3/uL BMP 04/05/25 10:05 Sodium 141 Potassium 4.7 Chloride 112 H Carbon Dioxide 23 BUN 13 Creatinine 0.70 Calcium 8.9 Liver Function 04/05/25 Range/Units 10:05 Total Bilirubin 0.8 (0.0-1.0) mg/dL AST 27 (5-31) U/L ALT 41 H (0-31) U/L Alkaline Phosphatase 98 (39-117) U/L Albumin 3.9 (3.5-5.0) g/dL Urine 04/05/25 Range/Units 10:08 Urine Color Yellow Urine Appearance Turbid Urine pH 7.0 (5.0-9.0) Ur Specific [place] 1.015 (1.005-1.025) Urine Protein Negative (Neg-Trace) mg/dL Urine Glucose (UA) Negative (Negative) mg/dL All other labs normal. Imaging CT scan - pelvis: report reviewed and image reviewed Assessment and Plan (1) Right upper quadrant abdominal pain: Status: Acute Patient will get right upper quadrant ultrasound rule out choledocholithiasis If this is negative, likely representing costochondritis. Avoid NSAIDs. Continue PPI. The previously noted intussusception on CT scan, may be incidental finding. We will treat conservatively with recommendation for liquid diet until seen in follow-up. Or[place] protein powder, 1 scoop in 8 oz of unsweetened almond milk or water. Five shakes per day until seen in the office next week. We will arrange for upper endoscopy next week Encouraged to follow up in the office moving forward Plan Patient is seen and examined with Dr. Potter. Procedures Date of Service Date of Service: 04/05/25
[2025-04-05 14:26] VITALS: BP 121/76; PULSE 60; RESP 16; TEMP 36.7; O2SAT 100
== END 2025-04-05 14:26 | disposition home or self-care (01) ==
PROVIDERS: Physician Assistant Medical; Emergency Provider Emergency Medicine; PCP Nurse Practitioner Primary Care
DX: R30.0 Dysuria (principal); N20.0 Calculus of kidney; R10.9 Unspecified abdominal pain; R07.89 Other chest pain; Z98.84 Bariatric surgery status; Z87.19 Personal history of other diseases of the digestive system; Z79.899 Other long term (current) drug therapy
CPT/HCPCS: 36415; 71046; 74176; 76705; 80053; 81001; 83690; 84484; 85025; 85379; 87086; 93005; 99284

== ENCOUNTER → 2025-04-05 09:02 | Outpatient (BNV) | payer MEDICAID, SELFPAY | PROVIDERS: Emergency Provider Emergency Medicine; PCP Nurse Practitioner Primary Care; Visit Provider Physician Assistant Surgical | DX: R10.11 Right upper quadrant pain (principal) | CPT/HCPCS: 99283 ==

== ENCOUNTER → 2025-04-05 09:29 | Outpatient (BNV) | payer MEDICAID, SELFPAY | PROVIDERS: Emergency Provider Emergency Medicine; PCP Nurse Practitioner Primary Care; Visit Provider Internal Medicine | DX: R07.1 Chest pain on breathing (principal) | CPT/HCPCS: 93010 ==

== ENCOUNTER → 2025-04-05 09:31 | Outpatient (BNV) | payer MEDICAID, SELFPAY | PROVIDERS: PCP Nurse Practitioner Primary Care; Visit Provider Radiology Diagnostic Radiology | DX: N20.0 Calculus of kidney (principal); K76.0 Fatty (change of) liver, not elsewhere classified; R10.11 Right upper quadrant pain | CPT/HCPCS: 71046; 74176; 76705 ==

== ENCOUNTER 2025-04-10 10:00 | Outpatient (REF) | payer MEDICAID, SELFPAY ==
--- OUTSIDE RECORDS SUMMARY | 2025-01-03 05:20 | XMS_ITS ---
Author Organization [facility] Address 10 [facility] [address] [place] [address] Care Team Providers Care Media Sales Representative Name Role Phone MICHAEL YANEZ N.P. Primary Care Provider Fidencio Langley Jr REASON FOR VISIT dysphagia Encounters Encounter Location Date Provider Diagnosis [facility] [address] [place] [address] 01/03/2025 Fidencio Vila Jr Plan Of Treatment Next Appt Details Provider Name:Fidencio haider Jr, 07/18/2025 11:20:00 AM, [address] [place] [address], [address], [place], [address], Progress Notes * TIFFANIE TYLERADOB: 6 (60 yo F)Acc No.[id number]:01/03/2025 Progress Notes Patient: TAY CAPELLAN Provider: Remi Vila MD :1965 A ge:59 Y S ex:Female Date:01/03/2025 Address:[address] [place] Pcp:MICHAEL YANEZ N.P. Subjective: * Chief Complaints: [...] 01/03/2025 Generated for Viviane negrete/Shakila/Constantino on: 0 04/10/2025 01:55 PM EDT
--- OUTSIDE RECORDS SUMMARY | 2025-04-10 13:56 | XMS_ITS ---
Author Organization [employer] Address [address] [place] [address] [address] [place] [address] Care Team Providers Care Internet Designer Name Role Phone Nupur Weir Primary Care Provider [phone] Abel Chavarria RN Unavailable [phone] Margareth Chavarria Unavailable CM Complex Status:Enrolled (Active) Start date:02/26/2025 Enrollment date:03/15/2025 Enrollment reason:ADT Feed Overview ED- Pt went to [facility] ED on 02/24/25. Case Team Name Relationship Phone Abel Chavarria RN(Responsible Staff) Registered Nurse [phone] Continued Care and Services Coordination
[2025-04-16 09:05] LABS: Alphahydroxytriazolam, GCMS Ur NEGATIVE; Alprazolam, GCMS Urine NEGATIVE; Aminoclonazepam, GCMS Urine NEGATIVE; Lorazepam GCMS Urine NEGATIVE; Nordiazepam, GCMS Urine NEGATIVE; Oxazepam, GCMS Urine NEGATIVE; Temazepam, GCMS Urine NEGATIVE
[2025-04-16 09:06] LABS: Alphahydroxymidazolam,GCMS Ur NEGATIVE; Flurazepam Metabolite,GCMS Ur NEGATIVE
== END 2025-04-10 10:01 | disposition home or self-care (01) ==
LOC: HO.HHCLNP 10:00
PROVIDERS: Visit Provider Nurse Practitioner Primary Care
DX: Z51.81 Encounter for therapeutic drug level monitoring (principal); Z79.891 Long term (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
CPT/HCPCS: 80307; 80346

== ENCOUNTER → 2025-04-11 08:55 | Outpatient (REF) | payer MEDICAID, SELFPAY ==
--- OUTSIDE RECORDS SUMMARY | 2025-01-03 05:20 | XMS_ITS ---
Author Organization [facility] Address 10 [facility] [address] [place] [address] Care Team Providers Care Fur Cleaner Name Role Phone MICHAEL YANEZ N.P. Primary Care Provider Fidencio Langley Jr REASON FOR VISIT dysphagia Encounters Encounter Location Date Provider Diagnosis [facility] [address] [place] [address] 01/03/2025 Fidencio Vila Jr Plan Of Treatment Next Appt Details Provider Name:Fidencio haider Jr, 07/18/2025 11:20:00 AM, [address] [place] [address], [address], [place], [address], Progress Notes * TIFFANIE TYLERADOB: 6 (60 yo F)Acc No.[id number]:01/03/2025 Progress Notes Patient: TAY CAPELLAN Provider: Remi Vila MD :1965 A ge:59 Y S ex:Female Date:01/03/2025 Address:[address] [place] Pcp:MICHAEL YANEZ N.P. Subjective: * Chief Complaints: * 1 . Dysphagia. * Medical History: Objective: * Vitals: Assessment: Plan: * Treatment: * * The named appointment provid er may or may not be the originator of this progress note, and it is not deemed complete until electronically signed by the appointment provider. Sign off status: Pending * Provider: Rmei Vila MD Date: 0 01/03/2025 Generated for Viviane negrete/Shakila/Constantino on: 0 04/11/2025 09:15 AM EDT
[2025-04-11 09:08] LABS: MANUAL DIFF FLAG NO
--- NOTE | 2025-04-11 09:17 | ECG_ITS ---
Test Reason : z79.899 Blood Pressure : */* mmHG Vent. Rate : 64 BPM Atrial Rate : 64 BPM P-R Int : 152 ms QRS Dur : 88 ms QT Int : 420 ms P-R-T Axes : -4 33 25 degrees QTcB Int : 433 ms Normal sinus rhythm Normal ECG When compared with ECG of 05-Apr-2025 09:52, No significant change was found Referred By: Sarabjit Purcell Electronically Signed By: Inderjit Heart
[2025-04-11 09:48] LABS: Hematocrit 44.0 % (37.0-47.0); Hemoglobin 14.2 g/dl (12.0-16.0); Imm Gran Abs Auto 0.02 X10*3/uL (0.00-0.03); Imm Gran Pct Auto 0.4 % (0.0-0.4); Lymphocytes Absolute Auto 2.1 X10*3/uL (1.2-4.9); Mean Corpuscular HGB Conc 32.3 g/dl (31.0-35.0); Mean Corpuscular Hemoglobin 28.7 pg (27.0-33.0); Mean Corpuscular Volume 88.9 fL (80.0-98.0); NRBC Abs Auto 0.000 X10*3/uL (0.0-0.012); NRBC Pct Auto 0.0 /100WBC (0.0-0.2); Platelet Count 337 X10*3/uL (160-400); Red Blood Count 4.95 X10*6/uL (4.20-5.50); White Blood Count 4.9 X10*3/uL (4.8-10.8)
[2025-04-11 10:39] LABS: Alanine Aminotransferase 30 U/L (0-31); Albumin Level 4.3 g/dL (3.5-5.0); Alkaline Phosphatase 119 U/L (39-117); Anion Gap 13 (12-20); Aspartate Amino Transferase 32 U/L (5-31); Blood Urea Nitrogen 13 mg/dL (9-16); Calcium 8.9 mg/dL (8.4-10.2); Carbon Dioxide 22 mmol/L (22-29); Chloride 107 mmol/L (96-108); Cholesterol 227 mg/dL (<200); Estimated Glomerular Filt Rate > 60; HDL Cholesterol 53 mg/dL (>40); Potassium 3.7 mmol/L (3.3-5.1); Sodium 138 mmol/L (135-145); Total Protein 7.5 g/dL (6.5-8.0); Triglycerides 77 mg/dL (<150)
[2025-04-11 11:00] LABS: Free T4 (Free Thyroxine) 1.12 ng/dL (0.71-1.85); Thyroid Stimulating Hormone 0.70 uIU/mL (0.32-4.0)
== END ==
LOC: HO.CARD 08:55
PROVIDERS: PCP Nurse Practitioner Primary Care; Visit Provider Registered Nurse Psychiatric/Mental Health
DX: Z51.81 Encounter for therapeutic drug level monitoring (principal); Z79.899 Other long term (current) drug therapy
CPT/HCPCS: 36415; 80053; 80061; 82248; 84439; 84443; 85025; 93005

== ENCOUNTER → 2025-04-11 09:17 | Outpatient (BNV) | payer MEDICAID, SELFPAY | PROVIDERS: PCP Nurse Practitioner Primary Care; Visit Provider Internal Medicine Cardiovascular Disease | DX: Z13.6 Encounter for screening for cardiovascular disorders (principal); Z79.899 Other long term (current) drug therapy | CPT/HCPCS: 93010 ==

== ENCOUNTER 2025-04-11 09:28 | Day surgery (SDC) | payer MEDICAID, SELFPAY ==
--- NOTE | 2025-04-10 15:17 | HO.ANESPROP2 ---
Documented by User: Diamond Murcia NP 04/10/25 15:26 HPI - Anesthesia Eval Consult details Narrative: 60 yr old female for upper endoscopy Migraines: on topamax Asthma: Asmanex & rescue inhaler PETER: CPAP status unknown [facility] Active Problems Active Problems: All Active Problems Right upper quadrant abdominal pain (Acute) Well woman exam (Acute) Lower urinary tract symptoms (Acute) Epidermal cyst (Acute) Nephrolithiasis (Acute) Interstitial cystitis (Acute) Urinary incontinence (Acute) Bacterial vaginosis (Acute) Varicose veins of right lower extremity with inflammation (Acute) Osteoporosis (Acute) Hyperparathyroidism (Acute) Sacrococcygeal pilonidal cyst (Acute) Recurrent UTI (Acute) Flank pain (Acute) Dysuria (Acute) Goiter (Acute) Hypercalciuria (Acute) Vitamin D deficiency (Acute) Hypothyroidism (Acute) H/O bilateral salpingo-oophorectomy (Acute) History of secondary hyperparathyroidism (Acute) Past Medical History Medical History Well woman exam Epidermal cyst Migraine HTN (hypertension) IBS (irritable bowel syndrome) GERD (gastroesophageal reflux disease) Chronic interstitial cystitis Sleep apnea Asthma Anemia Hypercholesteremia Depression Anxiety Sacrococcygeal pilonidal cyst Recurrent UTI Goiter Flank pain Dysuria Hypercalciuria Swelling of joint, ankle, right Swelling of right foot Vitamin D deficiency Hypothyroidism Right patella fracture History of secondary hyperparathyroidism Abnormal mammogram Family History Family History Mother Uterine cancer Father No problems noted. Family history of problems with anesthesia: No Surgical History Surgical History History of removal of cyst (~05/12/24) History of bladder surgery H/O bilateral salpingo-oophorectomy S/P gastric bypass H/O left breast biopsy H/O: hysterectomy History of bilateral tubal ligation History of appendectomy History of Problems with Anesthesia: No Social History Social History Household Members Other:: son Housing: Apartment Are you a primary rehab care assistant to a significant other at home: No Do you presently have visiting nurse or other home services: No Alcohol intake: former Comment: counts correct Patient Tobacco Use Status: Never used Tobacco Second Hand Smoke Exposure: No Use of substances other than those prescribed or required for medical reasons: No Have you been hit, kicked, punched, or otherwise hurt by someone within the past year? 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 Sexual orientation: Straight/Heterosexual Gender identity: Female Meds Allergies Allergy/AdvReac Type Severity Reaction Status Date / Time ondansetron (From ZOFRAN) Allergy Unknown per H&P Verified 04/11/25 10:30 sumatriptan (From IMITREX) Allergy Unknown RASH FROM Verified 04/11/25 10:30 TABLET NOT INJECTION promethazine (From PHENERGAN) AdvReac Severe DYSTONIA Verified 04/11/25 10:30 Home Medications ?Medication ?Instructions ?Recorded ?Confirmed ?Last Taken ?Type diltiazem HCl 180 mg 180 mg PO DAILY 11/24/21 04/11/25 05/11/24 History capsule,extended release 24 hr pantoprazole 40 mg tablet,delayed 40 mg PO DAILY 11/24/21 04/11/25 Unknown History release losartan 50 mg tablet 50 mg PO DAILY blood pressure 11/24/22 04/11/25 05/11/24 History levothyroxine 25 mcg tablet 25 mcg PO DAILY 01/08/23 04/11/25 Unknown History riboflavin (vitamin B2) 100 mg 200 mg PO BID 01/08/23 04/11/25 Unknown History tablet (Vitamin B-2) topiramate 50 mg tablet 100 mg PO BID 01/08/23 04/11/25 Unknown History Exam Pertinent Lab Results Pertinent Lab Results: Laboratory Tests 04/05/25 10:05 WBC 4.4 L RBC 4.62 Hgb 13.6 Hct 41.1 Plt Count 235 Sodium 141 Potassium 4.7 BUN 13 Creatinine 0.70 Narrative Narrative: EKG 03/2025 Vent. Rate : 61 BPM Atrial Rate : 61 BPM P-R Int : 164 ms QRS Dur : 90 ms QT Int : 416 ms P-R-T Axes : -10 9 7 degrees QTcB Int : 418 ms Normal sinus rhythm Normal ECG When compared with ECG of 10-Mar-2025 11:23, No significant change was found Assessment and Plan Final Anesthetic Review Family History of Problems with Anesthesia: No History of Problems with Anesthesia: No Documented by User: Halle Howard MD 04/11/25 11:37 [facility] Past Medical History Medical History Well woman exam Epidermal cyst Migraine HTN (hypertension) IBS (irritable bowel syndrome) GERD (gastroesophageal reflux disease) Chronic interstitial cystitis Sleep apnea Asthma Anemia Hypercholesteremia Depression Anxiety Sacrococcygeal pilonidal cyst Recurrent UTI Goiter Flank pain Dysuria Hypercalciuria Swelling of joint, ankle, right Swelling of right foot Vitamin D deficiency Hypothyroidism Right patella fracture History of secondary hyperparathyroidism Abnormal mammogram Family History Family History Mother Uterine cancer Father No problems noted. Surgical History Surgical History History of removal of cyst (~05/12/24) History of bladder surgery H/O bilateral salpingo-oophorectomy S/P gastric bypass H/O left breast biopsy H/O: hysterectomy History of bilateral tubal ligation History of appendectomy Social History Social History Household Members Other:: son Housing: Apartment Are you a primary rehab care assistant to a significant other at home: No Do you presently have visiting nurse or other home services: No Alcohol intake: former Comment: counts correct Patient Tobacco Use Status: Never used Tobacco Second Hand Smoke Exposure: No Use of substances other than those prescribed or required for medical reasons: No Have you been hit, kicked, punched, or otherwise hurt by someone within the past year? 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 Sexual orientation: Straight/Heterosexual Gender identity: Female Meds Allergies Allergy/AdvReac Type Severity Reaction Status Date / Time ondansetron (From ZOFRAN) Allergy Unknown per H&P Verified 04/11/25 10:30 sumatriptan (From IMITREX) Allergy Unknown RASH FROM Verified 04/11/25 10:30 TABLET NOT INJECTION promethazine (From PHENERGAN) AdvReac Severe DYSTONIA Verified 04/11/25 10:30 Home Medications ?Medication ?Instructions ?Recorded ?Confirmed ?Last Taken ?Type diltiazem HCl 180 mg 180 mg PO DAILY 11/24/21 04/11/25 05/11/24 History capsule,extended release 24 hr pantoprazole 40 mg tablet,delayed 40 mg PO DAILY 11/24/21 04/11/25 Unknown History release losartan 50 mg tablet 50 mg PO DAILY blood pressure 11/24/22 04/11/25 05/11/24 History levothyroxine 25 mcg tablet 25 mcg PO DAILY 01/08/23 04/11/25 Unknown History riboflavin (vitamin B2) 100 mg 200 mg PO BID 01/08/23 04/11/25 Unknown History tablet (Vitamin B-2) topiramate 50 mg tablet 100 mg PO BID 01/08/23 04/11/25 Unknown History Exam Airway Mallampati Class: II TM Dist: >3cm Neck ROM: Full Assessment and Plan Assessment Anesthesia Assessment: Anesthesia Plan Discussed and Chart Reviewed Final Anesthetic Review NPO: Yes ASA Class: III Final Preanesthetic Review: No Changes in Pt Med Stat, Meds/Allgs Chart Reviewed, Consent Obtained/Reviewed, Anes Risks/Benef Reviewed and DNR Form (If Appl.) Patient Risk: Intermediate Procedure Risk: Low Anesthetic Plan Anesthetic Plan: TIVA Disposition: Standard PACU
[2025-04-11 10:37] VITALS: BP 100/66; PULSE 66; RESP 12; TEMP 36.6; O2SAT 99; BMI 23.8
[2025-04-11] MEDS: Lactated Ringers 1,000 ML 100 ML IVCONT (10:41)
--- NOTE | 2025-04-11 11:29 | P.HPSUR_ITS ---
Pre-Procedural Eval Section A - 24 Hr Update-Section A only Date of Service: 04/11/25 The patient is an INPATIENT: No The patient has been examined within 24 hours of the surgical procedure. The History & Physical has been completed within 30 days and I have reviewed it.: Yes Section B - Complete if H&P > 30 days Chief Complaint: Bariatric surgery status Details of Present Illness: Right side abdominal pain, s/p gastric bypass Relevant Family History (Specify if Yes): No Relevant Social History: None Present Medications: None Medical History: No relevant PMH History of Previous Operations: Relevant previous surgery/procedure and date(s) (Lap gastric bypass) Allergies: Allergies Allergy/AdvReac Type Severity Reaction Status Date / Time ondansetron (From ZOFRAN) Allergy Unknown per H&P Verified 04/11/25 10:30 sumatriptan (From IMITREX) Allergy Unknown RASH FROM Verified 04/11/25 10:30 TABLET NOT INJECTION promethazine (From PHENERGAN) AdvReac Severe DYSTONIA Verified 04/11/25 10:30 Review of Systems Sugical H&P ROS: Negative: Constitution, Cardiovascular, Respiratory, Neurological, Psychiatric, Hem-Onc, Allergic/Immunologic, Gastrointestinal, Genitourinary, Musculoskeletal, Integumentary, Endocrine and Eyes/Ears/Nose/Throat Exam Surgical H&P Exam: Normal: HEENT, Normal: Heart, Normal: Lungs, Normal: Extre mities, Normal: Abdomen, Normal: Skin and Normal: Neurological Plan Diagnosis/Plan: Unchanged (EGD to assess etiology of the right side abdominal pain in relation to her gastric bypass. Risks of bleeding and perforation were discussed with the patient and she is in agreement with the plan.) I have reviewed the history and physical and performed a pertinent physical examination on my patient. No changes have occurred unless specified. Time Spent With Patient Time: Total time managing care of this patient today ____ minutes.
--- NOTE | 2025-04-11 11:31 | P.BOP_ITS ---
Brief Operative Note Date of Service: 04/11/25 Pre-op diagnosis: RUQ abdominal pain, s/p gastric bypass Post-op diagnosis: same Procedure: PROCEDURE DATE: 04/11/2025 PREOPERATIVE DIAGNOSIS: RUQ pain, s/p gastric bypass POSTOPERATIVE DIAGNOSIS: ?Same as above. Normal post-gastric bypass anatomy PROCEDURE: [id number] with biopsies Surgeon: ?Yao Potter M.D.. Ph.D. Pyrotechnics Press Tender: ?None ? Anesthesia: IV sedation Estimated blood loss: ?Minimal FINDINGS AND PROCEDURE: ? OPERATIVE INDICATIONS: ?The patient is a 60 year old male known to me who underwent a laparoscopic gastric bypass by me. The patient had an excellent weight loss so far and had an uneventful recovery.?She presented to the ER a week ago with right side abdominal pain. CT of the abdomen showed constipation and questionable intussusception. Based on this information I recommended an upper endoscopy to evaluate the patient's symptoms.? Risks and complications of the surgery were discussed with the patient in advance particularly the possibility of perforation or bleeding that may require surgical intervention. The patient understood the risks and was in agreement with the plan. ? PROCEDURE: After informed consent was obtained by the patient, the patient was ?transferred to the Operating Room and was placed in the supine position.? After successful induction of IV sedation, a mouth block was placed and the patient was placed in the left lateral decubitus position. An upper endoscopy was performed next, the oropharynx and esophagus appeared within the normal limits. There was no hiatal hernia.? The z-line was smooth. One biopsy from the GE junction. The small pouch was entered, appeared to be of normal size. There was no gastritis and the gastrojejunostomy was patent. A biopsy was obtained from the gastric pouch. No significant bleeding was noted from any of the biopsy sites. There was no anastomotic ulcer.? At that point the scope was advanced into the proximal small intestine (proximal Ml limb) up to 120cm from incisors which appeared to be normal as well. The Ml limb and the pouch were decompressed and the scope was withdrawn from the patient's mouth. The patient was awaken and was transferred in stable condition to the Recovery Room for further care. I was present and performed all steps of the procedure. There were no residents to assist with this case. Yao Potter M.D., Ph.D. Surgeon: Tung Potter MD Anesthesia: MAC Was an Pyrotechnics Press Tender used for this Procedure?: No Estimated blood loss (mL): 0 IV fluids (mL): 400 Urine output (mL): 0 (No Donald to record output) Pathology: other (1) gastric pouch x1, GE junction x1) Condition: stable Disposition: PACU
[2025-04-11 11:59] VITALS: BP 95/62; PULSE 76; RESP 16; TEMP 36.1; O2SAT 99
[2025-04-11 12:14] VITALS: BP 109/71; PULSE 78; RESP 12; O2SAT 99
[2025-04-11 12:25] VITALS: BP 112/69; PULSE 74; RESP 16; O2SAT 99
[2025-04-11 12:47] VITALS: BP 112/58; PULSE 67; RESP 16; O2SAT 100
== END 2025-04-11 14:13 | disposition home or self-care (01) ==
PROVIDERS: PCP Nurse Practitioner Primary Care; Visit Provider Surgery
PROC: 0DJ08ZZ Inspection of Upper Intestinal Tract, Via Natural or Artificial Opening Endoscopic (ICD-10-PCS; CPT 43235; principal; 2025-04-11 11:40)
DX: R10.11 Right upper quadrant pain (principal); K59.00 Constipation, unspecified; K21.9 Gastro-esophageal reflux disease without esophagitis; K58.9 Irritable bowel syndrome, unspecified; I10 Essential (primary) hypertension; D64.9 Anemia, unspecified; N30.10 Interstitial cystitis (chronic) without hematuria; E78.00 Pure hypercholesterolemia, unspecified; J45.909 Unspecified asthma, uncomplicated; E55.9 Vitamin D deficiency, unspecified; E03.9 Hypothyroidism, unspecified; R82.994 Hypercalciuria; Z87.11 Personal history of peptic ulcer disease; Z87.19 Personal history of other diseases of the digestive system; Z90.49 Acquired absence of other specified parts of digestive tract; Z98.84 Bariatric surgery status; Z79.899 Other long term (current) drug therapy; Z88.8 Allergy status to other drugs, medicaments and biological substances
CPT/HCPCS: 43239; 88305; 88313; 88342; J0131; J2003; J2704

== ENCOUNTER → 2025-04-11 09:28 | Outpatient (BNV) | payer MEDICAID, SELFPAY | PROVIDERS: PCP Nurse Practitioner Primary Care; Visit Provider Surgery | DX: R10.11 Right upper quadrant pain (principal) | CPT/HCPCS: 43239 ==

== ENCOUNTER 2025-05-01 14:29 | Outpatient (REF) | payer MEDICAID, SELFPAY ==
--- NOTE | ~2025-05-01 | CT_ITS ---
EXAMINATION: CT ANGIOGRAM CHEST CLINICAL INFORMATION: Chest pain with episode of hemoptysis COMPARISON: September 12, 2023 TECHNIQUE: Multiple axial images were obtained through the chest after the administration of 65 mL of Omnipaque 350 intravenous contrast. Extensive vascular post-processing including two-dimensional and three-dimensional reformatted images were created and reviewed on an independent workstation. This CT examination was performed using dose optimization techniques as appropriate, variously including the following: *Automated exposure control *Adjustment of mA and/or kV according to patient size (this includes techniques or standardized protocols for targeted exams where dose is matched to indication/reason for exam; i.e. extremities or head) *Use of iterative reconstruction technique DLP: 139 mGY*cm FINDINGS: QUALITY OF STUDY/CONTRAST BOLUS: Adequate PULMONARY ARTERIES: No filling defects are identified in the pulmonary arteries. THORACIC AORTA: Unremarkable without aneurysm. There is minimal chronic calcification. LUNGS AND PLEURA: There is no pleural effusion or pleural thickening. MEDIASTINUM: Unremarkable CORONARY ARTERY CALCIFICATION: None CHEST WALL/AXILLA: No axillary or internal mammary lymphadenopathy. UPPER ABDOMEN: Changes from gastric bypass surgery are evident. BONES: Mild to moderate degenerative changes are evident in the midthoracic spine. CT/CT angio chest PE protocol IMPRESSION: No sign of pulmonary embolus or parenchymal disease. Fleischner guidelines were followed. Electronically signed by: Kleber Garg MD 05/01/2025 03:08 PM EDT
[2025-05-01] MEDS: iohexoL 350 MG/ML 100 ML INFUS..BTL IV (14:43)
--- OUTSIDE RECORDS SUMMARY | 2025-05-01 15:41 | XMS_ITS | Encounter Summary ---
Author Organization [employer] Address [address] [place] [address] [address] [place] [address] Care Team Providers Care Clinic Physician Name Role Phone Nupur Weir Primary Care Provider [phone] Abel Chavarria RN Unavailable [phone] Margareth Chavarria Unavailable Reason for Visit * Reason Onset Date Comments Med Refill 07/26/2024 Encounter Details Date Type Department Care Team ([facility] st Contact Info) Description 07/26/2024 Telephone [facility] [address] [place] [address] Nupur Weir ANP [address] [place] [address] Med Refill Social History Tobacco Use Types [...] t he electric, gas, oil or water [employer] threatened to shut off services in your [...] 50 MG tablet To be sent to: [id number] [id number] documented in this encounter Plan of Treatment Upcoming Encounters Date Type Department Care Team (Late st Contact Info) Description 05/08/2025 9:45 AM EDT Office Visit [facility] [address] [place] [id number] 05/15/2025 9:15 AM EDT Office Visit [facility] [address] [place] [id number] Nupur Weri, ANP [address] [place] [address] [place] [address] 09/28/2025 9:30 AM EST Medication Management [facility] [address] [place], [place] [phone] Fay Leigh, [place] [address] [place] [address] documented as of this encounter Visit Diagnoses Not on filedocumented in this encounter Care Teams Clinic Physician Relationship Specialty Start Date End Date Nupur Weir ANP [address] [place] [address] PCP - General Family Medicine 01/16/20 Abel Chavarria, RN [address] [place] [id number] Registered Nurse Family Medicine 02/26/25 Margareth Chavarria 02/26/25 documented as of this encounter
--- OUTSIDE RECORDS SUMMARY | 2025-05-01 15:41 | XMS_ITS | Encounter Summary ---
Author Organization [employer] Address [address] [place] [address] Care Team Providers Care Tar Heater Operator Name Role Phone Michael Yanez Primary Care Provider [phone] Abel Chavarria RN Unavailable [phone] Margareth Chavarria Unavailable Encounter Details Date Type Department Care Team (Late st Contact Info) Description 05/01/2025 Orders Only [facility] [address] [place] [address] Jaleel Holley MD [address] [place] [address] Social History Tobacco Use Types Packs/Day Years Used Date Smoking Tobacco: Never Passive Smoke Exposure: Never Smokeless Tobacco: Never Alcohol Use Standard Drinks/Week Comments Never 0 (1 standard drink = 0.6 oz pur e alcohol) Alcohol Answer Date Recorded Frequency of Alcohol Consumption Not on file 07/07/2024 Average Number of Drinks Not on file 024 Frequency of Binge Drinking Not on file 03/2024 Score 0 07/07/2024 Depression Answer Date Recorded Patient Health Questionnaire-9 Score 17 04/12/2025 Patient Health Questionnaire-9 Score 17 04/12/2025 Last PHQ-9: Questionnaire Data Not on file 0 04/12/2025 Housing Stability Answer Date Recorded What is your housing situation today? I have michael gilbert 02/26/[address] you li ve. Do you have problems with any of the following? None of the above 02/26/2025 Food Insecurity Answer Date Recorded Within the past 12 months, y ou worried that your food would run out before you got money to buy more: Never True 02/26/2025 Within the past 12 months,th e food you bought just didn't last and you didn't have enough money to get more: Never True Transportation Answer Date Recorded In the past 12 months, has l ack of transportation kept you from medical appts, meetings, work or from getting things needed for daily living? Yes, it has kept me from medical appointments or getting medications. 02/26/2025 Utilities Answer Date Recorded In the past 12 months, has t he electric, gas, oil or water company threatened to shut off services in your home? No 02/26/2025 Depression Answer Date Recorded Patient Health Questionnaire-2 Score 3 04/12/2025 Internet Access Answer Date Recorded Internet Access Q1 Yes 02/26/2025 Internet Access Q2 Not on file 02/26/2025 Comments Unknown Sex and Gender Information Value [...] Description 05/08/2025 9:45 AM EDT Office Visit [facility] [address] [place] [address] 05/15/2025 9:15 AM EDT Office Visit [facility] [address] [place] [address] Michael Yanez, ANP [address] [place] [address] 09/28/2025 9:30 AM EST Medication Management [facility] [address] [place] [address] Fay Leigh, PharmD [address] [place] [address] documented as of this encounter Procedures Procedure Name Priority Date/Time Associated Diagnosis Comments CTA CHEST PE PROTOCAL Routine 05/01/2025 2:33 PM EDT documented in this encounter Results * CTA Chest PE Protocal (05/01/2025 2:33 PM EDT) Anatomical Region Laterality Modality Body, Chest Computed Tomogra phy 05/01/2025 2:33 PM EDT Narrative 05/01/2025 3:11 PM EDT [place] [address] [address] Scan Report Signed Patient: Laura Gonzalez MR#: [id number] : 1965 Acct:[id number] Age/Sex: 60 / F ADM Date: 05/01/25 Loc: .CT Attending Dr: Jaleel Holley MD Ordering Physician: JALEEL HOLLEY MD Date of Service: 05/01/25 Procedure(s): CT angio chest PE protocol Accession Number(s): [id number] cc: JALEEL HOLLEY MD; MICHAEL YANEZ NP Report Number: [id number]: Total DLP = 139.00 mGy-cm Reason for Exam: CHEST PAIN W episode of hemoptysis EXAMINATION: CT ANGIOGRAM CHEST CLINICAL INFORMATION: Chest pain with episode of hemoptysis COMPARISON: September 12, 2023 TECHNIQUE: Multiple axial images were obtained through the chest after the administration of 65 mL of Omnipaque 350 intravenous contrast. Extensive vascular post-processing including two-dimensional and three-dimensional reformatted images were created and reviewed on an independent workstation. This CT examination was performed using dose optimization techniques as appropriate, variously including the following: *Automated exposure control *Adjustment of mA and/or kV according to patient size (this includes techniques or standardized protocols for targeted exams where dose is matched to indication/reason for exam; i.e. extremities or head) *Use of iterative reconstruction technique DLP: 139 mGY*cm FINDINGS: QUALITY OF STUDY/CONTRAST BOLUS: Adequate PULMONARY ARTERIES: No filling defects are identified in the pulmonary arteries. THORACIC AORTA: Unremarkable without aneurysm. There is minimal chronic calcification. LUNGS AND PLEURA: There is no pleural effusion or pleural thickening. MEDIASTINUM: Unremarkable CORONARY ARTERY CALCIFICATION: None CHEST WALL/AXILLA: No axillary or internal mammary lymphadenopathy. UPPER ABDOMEN: Changes from gastric bypass surgery are evident. BONES: Mild to moderate degenerative changes are evident in the midthoracic spine. CT/CT angio chest PE protocol IMPRESSION: No sign of pulmonary embolus or parenchymal disease. Fleischner guidelines were followed. Electronically signed by: Kleber Garg MD 05/01/2025 03:08 PM EDT RP Dictated By: Kleber Garg MD Signed By: <Electronically signed by Kleber Garg MD in OV> 05/01/25 1508 DD/ 1433 TD/TT: 05/01/25 1452 Individual Pension Adviser: Procedure Note Donotuseinterpreter, Image - 05/01/[address] [place] [address] [address] Scan Report Signed Patient: Aleksandar Gonzalez#: [id number] : 1965Acct:[id number] Age/Sex: 60 / FADM Date: 05/01/25 Loc: HO.CT Attending Dr: Jaleel Holley MD Ordering Physician: JALEEL HOLLEY MD Date of Service: 05/01/25 Procedure(s): CT angio chest PE protocol Accession Number(s): [id number] cc: JALEEL HOLLEY MD; MICHAEL YANEZ NP Report Number: [id number]: Total DLP = 139.00 mGy-cm Reason for Exam: CHEST PAIN W episode of hemoptysis EXAMINATION: CT ANGIOGRAM CHEST CLINICAL INFORMATION: Chest pain with episode of hemoptysis COMPARISON: September 12, 2023 TECHNIQUE: Multiple axial images were obtained through the chest after the administration of 65 mL of Omnipaque 350 intravenous contrast. Extensive vascular post-processing including two-dimensional and three-dimensional reformatted images were created and reviewed on an independent workstation. This CT examination was performed using dose optimization techniques as appropriate, variously including the following: *Automated exposure control *Adjustment of mA and/or kV according to patient size (this includes techniques or standardized protocols for targeted exams where dose is matched to indication/reason for exam; i.e. extremities or head) *Use of iterative reconstruction technique DLP: 139 mGY*cm FINDINGS: QUALITY OF STUDY/CONTRAST BOLUS: Adequate PULMONARY ARTERIES: No filling defects are identified in the pulmonary arteries. THORACIC AORTA: Unremarkable without aneurysm. There is minimal chronic calcification. LUNGS AND PLEURA: There is no pleural effusion or pleural thickening. MEDIASTINUM: Unremarkable CORONARY ARTERY CALCIFICATION: None CHEST WALL/AXILLA: No axillary or internal mammary lymphadenopathy. UPPER ABDOMEN: Changes from gastric bypass surgery are evident. BONES: Mild to moderate degenerative changes are evident in the midthoracic spine. CT/CT angio chest PE protocol IMPRESSION: No sign of pulmonary embolus or parenchymal disease. Fleischner guidelines were followed. Electronically signed by: Kleber Garg MD 05/01/2025 03:08 PM EDT RP Dictated By: Kleber Garg MD Signed By: <Electronically signed by Kleber Garg MD in OV> 05/01/25 1508 DD/ 1433 TD/TT: 05/01/25 1452 Individual Pension Adviser: Jaleel Holley MD IMG CT PROCEDURES Final Result documented in this encounter Visit Diagnoses Not on filedocumented in this encounter Additional Health Concerns Assessment Noted Time PHQ-9 Depression Total Score: 17 08/ 025 10:08 AM EDT documented as of this encounter Care Teams Tar Heater Operator Relationship Specialty Start Date End Date Michael Yanez ANP [address] [place] [address] PCP - General Family Medicine 01/16/20 Abel Chavarria, ILENE [address] [place] [address] Registered Nurse Family Medicine 02/26/25 Margareth Chavarria 02/26/25 documented as of this encounter
--- OUTSIDE RECORDS SUMMARY | 2025-05-01 15:41 | XMS_ITS | Encounter Summary ---
Author Organization [employer] Address [address] 7[address] [place] [address] Care Team Providers Care Spray Crew Name Role Phone Nupur Weir Primary Care Provider [phone] Abel Chavarria RN Unavailable [phone] Margareth Chavarria Unavailable Reason for Visit * Reason Comments Med Refill Encounter Details Date Type Department Care Team (Late st Contact Info) Description 02/11/2024 Refill [facility] 230 [place] [address] Marcella Colindres MD 230 [place] [address] Gastritis medicamentosa Social History Tobacco Use Types [...] Description 05/08/2025 9:45 AM EDT Office Visit [address] [address] 05/15/2025 9:15 AM EDT Office Visit [address] [address] Nupur Weir ANP [address] [place] [address] 09/28/2025 9:30 AM EST Medication Management [address] [address] Fay Leigh PharmD [address] [place] [address] documented as of this encounter Visit Diagnoses Diagnosis Gastritis medicamentosa Other specified gastritis without mention of hemorrhage documented in this encounter Care Teams Spray Crew Relationship Specialty Start Date End Date Nupur Weir ANP [address] [place] [address] PCP - General Family Medicine 01/16/20 Abel Chavarria, ILENE [address] [place] [address] Registered Nurse Family Medicine 02/26/25 Margareth Chavarria 02/26/25 documented as of this encounter
--- OUTSIDE RECORDS SUMMARY | 2025-05-01 15:41 | XMS_ITS | Encounter Summary ---
Author Organization [employer] Address [address] [place] [address] Street 7t [place] [address] Care Team Providers Care Steam Room Attendant Name Role Phone Nupur Weir Primary Care Provider [phone] Abel Chavarria RN Unavailable [phone] Margareth Chavarria Unavailable Reason for Visit * Reason Comments Med Refill Encounter Details Date Type Department Care Team (Late st Contact Info) Description 12/22/2024 Refill [facility] [address] [place] [address] Nupur Weir ANP 230 [place] [address] Arthralgia, unspecified joint Social History Tobacco Use [...] t he electric, gas, oil or water [employer] threatened to shut off services in your [...] Description 05/08/2025 9:45 AM EDT Office Visit [address] [address] 05/15/2025 9:15 AM EDT Office Visit [address] [address] Nupur Weir ANP [address] [place] [address] 09/28/2025 9:30 AM EST Medication Management [address] [address] Fay Leigh, MayoD [address] [place] [address] documented as of this encounter Visit Diagnoses Diagnosis Arthralgia, unspecified joint documented in this encounter Care Teams Steam Room Attendant Relationship Specialty Start Date End Date Nupur Weir ANP 230 [place] [address] PCP - General Family Medicine 01/16/20 Abel Chavarria, ILENE [address] [place] [address] Registered Nurse Family Medicine 02/26/25 Margareth Chavarria 02/26/25 documented as of this encounter
--- OUTSIDE RECORDS SUMMARY | 2025-05-01 15:41 | XMS_ITS | Encounter Summary ---
Author Organization [employer] Address [address] 7t [place] [address] Care Team Providers Care Pottery Decorator Name Role Phone Nupur Weir Primary Care Provider [phone] Abel Chavarria RN Unavailable [phone] Margareth Chavarria Unavailable Reason for Visit * Reason Comments Med Refill Encounter Details Date Type Department Care Team ([facility] st Contact Info) Description 02/11/2024 Refill [facility] 230 [place] [address] Nupur Weir ANP 230 [place] [address] Social History Tobacco Use Types Packs/Day Years [...] Description 05/08/2025 9:45 AM EDT Office Visit [address] [address] 05/15/2025 9:15 AM EDT Office Visit [address] [address] Nupur Weir ANP [address] [place] [address] 09/28/2025 9:30 AM EST Medication Management [address] [address] Fay Leigh, PharmD [address] [place] [address] documented as of this encounter Visit Diagnoses Not on filedocumented in this encounter Care Teams Pottery Decorator Relationship Specialty Start Date End Date Nupur Weir ANP [address] [place] [address] PCP - General Family Medicine 01/16/20 Abel Chavarria, RN [address] [place] [address] Registered Nurse Family Medicine 02/26/25 Margareth Chavarria 02/26/25 documented as of this encounter
--- OUTSIDE RECORDS SUMMARY | 2025-05-01 15:41 | XMS_ITS | Encounter Summary ---
Author Organization [employer] Address [address] 7t [place] [address] Care Team Providers Care Electronics Teacher Name Role Phone Nupur Weir Primary Care Provider [phone] Abel Chavarria RN Unavailable [phone] Margareth Chavarria Unavailable Reason for Visit * Reason Comments Med Refill Encounter Details Date Type Department Care Team (Late st Contact Info) Description 11/07/2024 Refill [facility] [address] [place] [address] Nupur Weir ANP 230 [place] [address] Primary hypertension; Iron deficiency anemia, unspecified iron [...] Description 05/08/2025 9:45 AM EDT Office Visit [address] [address] 05/15/2025 9:15 AM EDT Office Visit [address] [address] Nupur Weir, BATOOL [address] [place] [address] 09/28/2025 9:30 AM EST Medication Management [address] [address] Fay Leigh, MayoD [address] [place] [address] documented as of this encounter Visit Diagnoses Diagnosis Primary hypertension Unspecified essential hypertension Iron deficiency anemia, unspecified iron deficiency anemia type documented in this encounter Care Teams Electronics Teacher Relationship Specialty Start Date End Date Nupur Weir ANP [address] [place] [address] PCP - General Family Medicine 01/16/20 Abel Chavarria RN [address] [place] [address] Registered Nurse Family Medicine 02/26/25 Margareth Chavarria 02/26/25 documented as of this encounter
--- OUTSIDE RECORDS SUMMARY | 2025-05-01 15:41 | XMS_ITS | Encounter Summary ---
Author Organization [employer] Address [address] [address] 7t [place] [address] Care Team Providers Care Manufacturing Mechanic Name Role Phone Nupur Weir Primary Care Provider [phone] Abel Chavarria RN Unavailable [phone] Margareth Chavarria Unavailable Encounter Details Date Type Department Care Team (Late st Contact Info) Description 04/11/2024 Orders Only [facility] [address] [place] [address] Nupur Weir ANP 230 [place] [address] Social History Tobacco Use Types Packs/Day Years [...] Description 05/08/2025 9:45 AM EDT Office Visit [address] [address] 05/15/2025 9:15 AM EDT Office Visit [address] [address] Nupur Weir ANP [address] [place] [address] 09/28/2025 9:30 AM EST Medication Management [address] [address] Fay Leigh, PharmD [address] [place] [address] documented as of this encounter Visit Diagnoses Not on filedocumented in this encounter Care Teams Manufacturing Mechanic Relationship Specialty Start Date End Date Nupur Weir ANP [address] [place] [address] PCP - General Family Medicine 01/16/20 Abel Chavarria, ILENE [address] [place] [address] Registered Nurse Family Medicine 02/26/25 Margareth Chavarria 02/26/25 documented as of this encounter
--- OUTSIDE RECORDS SUMMARY | 2025-05-01 15:41 | XMS_ITS | Encounter Summary ---
Author Organization [employer] Address [address] [facility] [address] 7t [place] [address] Care Team Providers Care Central Office Supervisor Name Role Phone Nupur Weir Primary Care Provider [phone] Abel Chavarria RN Unavailable [phone] Margareth Chavarria Unavailable Reason for Visit * Reason Comments Med Refill Encounter Details Date Type Department Care Team ([facility] st Contact Info) Description 06/19/2024 Refill [facility] 230 [place] [address] Nupur Weir ANP [address] [place] [address] Other specified hypothyroidism Social History Tobacco Use [...] Description 05/08/2025 9:45 AM EDT Office Visit [address] [address] 05/15/2025 9:15 AM EDT Office Visit [address] [address] Nupur Weir ANP [address] [place] [address] 09/28/2025 9:30 AM EST Medication Management [address] [address] Fay Leigh PharmD [address] [place] [address] documented as of this encounter Visit Diagnoses Diagnosis Other specified hypothyroidism documented in this encounter Care Teams Central Office Supervisor Relationship Specialty Start Date End Date Nupur Weir ANP [address] [place] [address] PCP - General Family Medicine 01/16/20 Abel Chavarria, ILENE [address] [place] [address] Registered Nurse Family Medicine 02/26/25 Margareth Chavarria 02/26/25 documented as of this encounter
--- OUTSIDE RECORDS SUMMARY | 2025-05-01 15:41 | XMS_ITS | Encounter Summary ---
Author Organization [employer] Address [address] [place] [address] Street 7t [place] [address] Care Team Providers Care Tape Cutting Machine Operator Name Role Phone Nupur Weir Primary Care Provider [phone] Abel Chavarria RN Unavailable [phone] Margareth Chavarria Unavailable Reason for Visit * Reason Comments Med Refill Encounter Details Date Type Department Care Team (Late st Contact Info) Description 07/22/2024 Refill [facility] 230 [place] [address] Nupur Weir ANP [address] [place] [address] Social History Tobacco Use Types Packs/Day Years [...] the past 12 months, has t he [employer], gas, oil or water [employer] threatened to shut off services in your [...] Description 05/08/2025 9:45 AM EDT Office Visit [address] [address] 05/15/2025 9:15 AM EDT Office Visit [address] [address] Nupur Weir ANP [address] [place] [address] 09/28/2025 9:30 AM EST Medication Management [address] [address] Fay Leigh, PharmD [address] [place] [address] documented as of this encounter Visit Diagnoses Not on filedocumented in this encounter Care Teams Tape Cutting Machine Operator Relationship Specialty Start Date End Date Nupur Weir ANP [address] [place] [address] PCP - General Family Medicine 01/16/20 Abel Chavarria RN 505 [place] [address] Registered Nurse Family Medicine 02/26/25 Margareth Chavarria 02/26/25 documented as of this encounter
--- OUTSIDE RECORDS SUMMARY | 2025-05-01 15:41 | XMS_ITS | Encounter Summary ---
Author Organization [employer] Address [address] [place] [address] 7t [place] [address] Care Team Providers Care Marketing Assistant Name Role Phone Nupur Weir Primary Care Provider [phone] Abel Chavarria RN Unavailable [phone] Margareth Chavarria Unavailable Reason for Visit * Reason Onset Date Comments Med Refill 10/01/2023 Encounter Details Date Type Department Care Team ([facility] st Contact Info) Description 10/01/[address] [facility] [address] [place] [address] Nupur Weir ANP [address] [place] [address] Med Refill Social History Tobacco Use Types [...] Base) MCG/ACT inhaler To be sent to: [id number] [place], [place] - [address] [facility] documented in this encounter Plan of Treatment Upcoming Encounters Date Type Department Care Team (Late st Contact Info) Description 05/08/2025 9:45 AM EDT Office Visit [facility] [address] [place] [address] 05/15/2025 9:15 AM EDT Office Visit [facility] [address] [place] [address] Nupur Weir, ANP [address] [place] [address] 09/28/2025 9:30 AM EST Medication Management [facility] [address] [place] [address] Fay Leigh, PharmD [address] [place] [address] documented as of this encounter Visit Diagnoses Not on filedocumented in this encounter Care Teams Marketing Assistant Relationship Specialty Start Date End Date Nupur Weir ANP [address] [place] [address] PCP - General Family Medicine 01/16/20 Abel Chavarria RN 505 [place] [address] Registered Nurse Family Medicine 02/26/25 Margareth Chavarria 02/26/25 documented as of this encounter
--- OUTSIDE RECORDS SUMMARY | 2025-05-01 15:41 | XMS_ITS | Encounter Summary ---
Author Organization [employer] Address [address] [place] [address] Street 7t [place] [address] Care Team Providers Care Legal Compliance Officer Name Role Phone Nupur Weir Primary Care Provider [phone] Abel Chavarria RN Unavailable [phone] Margareth Chavarria Unavailable Reason for Visit * Reason Onset Date Comments rs no show appt 11/30/2024 Encounter Details Date Type Department Care Team (Late st Contact Info) Description 11/30/2024 Telephone [facility] [address] [place] [address] Taty, Laura [address] [place] [address] rs no show appt Social History Tobacco [...] the past 12 months, has t he [employer], gas, oil or water company threatened to [...] AM EDT documented as of this encounter Functional Status * Over the last 2 weeks, how often have you been bothered by any of the following problems? Question Answer Date of Assessment Author Feeling nervous, anxious, or on edge 2 12/01/2024 11:08 AM EDT Kassy Ramsey RN Not being able to stop or co ntrol worrying 2 12/01/2024 11:08 AM Kassy Lay RN Worrying too much about diff erent things 0 12/01/2024 11:08 AM Kassy Lay RN Trouble relaxing 1 12/01/2024 11:08 AM Kassy Lay RN Being so restless that it is hard to sit still 0 12/01/2024 11:08 AM Kassy Lay RN Becoming easily annoyed or irritable 1 12/01/2024 11:08 AM Kassy Lay RN Feeling afraid as if somethi ng awful might happen 0 12/01/2024 11:08 AM EDT Kassy Ramsey, ILENE ROSALBA-7 Total Score 6 12/01/2024 11:08 AM EDT Kassy Ramsey, ILENE documented as of this encounter Miscellaneous Notes [...] Description 05/08/2025 9:45 AM EDT Office Visit [address] [address] 05/15/2025 9:15 AM EDT Office Visit [address] [address] Nupur Weir ANP [address] [place] [address] 09/28/2025 9:30 AM EST Medication Management [address] [address] Fay Leigh, PharmD [address] [place] [address] documented as of this encounter Visit Diagnoses Not on filedocumented in this encounter Care Teams Legal Compliance Officer Relationship Specialty Start Date End Date Nupur Weir ANP [address] [place] [address] PCP - General Family Medicine 01/16/20 Abel Chavarria, ILENE [address] [place] [address] Registered Nurse Family Medicine 02/26/25 Margareth Chavarria 02/26/25 documented as of this encounter
--- OUTSIDE RECORDS SUMMARY | 2025-05-01 15:41 | XMS_ITS ---
Author Organization [employer] Address [address] [place] [address] 7t [place] [address] Care Team Providers Care Workers Compensation Legal Secretary Name Role Phone Nupur Weir Primary Care Provider [phone] Abel Chavarria RN Unavailable [phone] Margareth Chavarria Unavailable [facility] Status:Enrolled (Active) Start date:02/26/2025 Enrollment date:03/15/2025 Enrollment reason:ADT Feed Overview ED- Pt went to [facility] on 02/24/25. Please outreach for enrollment. [place] Case Team Name Relationship Phone Margareth Chavarria(Responsible Staff) [phone] Continued Care and Services Coordination
--- OUTSIDE RECORDS SUMMARY | 2025-05-01 15:41 | XMS_ITS | Encounter Summary ---
Author Organization [employer] Address [address] [place] [address] Care Team Providers Care Development Officer Name Role Phone Nupur Weir Primary Care Provider [phone] Abel Chavarria RN Unavailable [phone] Margareth Chavarria Unavailable Encounter Details Date Type Department Care Team (Late st Contact Info) Description 04/05/2025 Orders Only [facility] [address] [place] [address] Jaleel Block MD [address] [place] [address] Right-sided chest pain (Primary Dx); Hemoptysis Social History Tobacco Use Types Packs/Day Years [...] Answer Date Recorded Patient Health Questionnaire-9 Score 7 03/15/2025 Patient Health Questionnaire-9 Score 7 03/15/2025 Last PHQ-9: Questionnaire Data Not on file 0 03/15/2025 Housing Stability Answer Date Recorded What is [...] Answer Date Recorded Patient Health Questionnaire-2 Score 2 03/15/2025 Internet Access Answer Date Recorded Internet Access [...] Description 05/08/2025 9:45 AM EDT Office Visit [address] [address] 05/15/2025 9:15 AM EDT Office Visit [address] [address] Nupur Weir, ANP [address] [place] [address] 09/28/2025 9:30 AM EST Medication Management [address] [address] Fay Leigh, MayoD [address] [place] [address] documented as of this encounter Procedures Procedure Name Priority Date/Time Associated Diagnosis Comments CULTURE, URINE, ROUTINE Routine 04/05/2025 12:00 AM EDT Right-sided chest pain documented in this encounter Results * Culture, Urine, Routine (04/05/2025 12:00 AM EDT) Urine Urine specimen obtained by clean catch procedure / Unknown 04/05/2025 04/05/2025 Comment:[facility] - 04/06/2025 10:53 AM EDT Urine Culture No growth. Specimen Source: Urine clean catch us Generic External Data Provider LAB MICROBIOLOGY - GENERAL ORDERABLES Final Result Performing Organization Address City/State/[facility] Co de Phone Number [facility] [address] [place] [phone] documented in this encounter Visit Diagnoses Diagnosis Right-sided chest pain- Primary Hemoptysis documented in this encounter Additional Health Concerns Assessment Noted Time PHQ-9 Depression Total Score: 7 03/15/20 25 3:29 PM EDT documented as of this encounter Care Teams Development Officer Relationship Specialty Start Date End Date Nupur Weir ANP [address] [place] [address] PCP - General Family Medicine 01/16/20 Abel Chavarria, ILENE [address] [place] [address] Registered Nurse Family Medicine 02/26/25 Margareth Chavarria 02/26/25 documented as of this encounter
--- OUTSIDE RECORDS SUMMARY | 2025-05-01 15:41 | XMS_ITS | Encounter Summary ---
Author Organization [employer] Address [address] [place] [address] Street [address]t [place] [address] Care Team Providers Care Director Of Acquisitions Name Role Phone Nupur Weir Primary Care Provider [phone] Abel Chavarria RN Unavailable [phone] Margareth Chavarria Unavailable Reason for Visit * Reason Onset Date Comments Appointment Request 11/30/2024 Encounter Details Date Type Department Care Team ([facility] st Contact Info) Description 11/30/2024 Telephone [facility] [address] [place] [address] Nupur Weir ANP [address] [place] [address] Appointment Request Social History Tobacco Use Types [...] t he electric, gas, oil or water [email or web address] threatened to shut off services in your [...] Score 6 12/01/2024 11:08 AM EDT Kassy Ramsey RN documented as of this encounter Miscellaneous Notes * Telephone Encounter - Chanel Whyte - 11/30/2024 11:07 AM EDT 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 States has another appt around the same time at sleep medicine and pt informs takes bus and believes will not be able to make it on time. Would like to r/s for Wednesday. documented in this encounter Plan of Treatment Upcoming Encounters Date Type Department Care Team (Late st Contact Info) Description 05/08/2025 9:45 AM EDT Office Visit [address] [address] 05/15/2025 9:15 AM EDT Office Visit [address] [address] Nupur Weir ANP [address] [place] [address] 09/28/2025 9:30 AM EST Medication Management [address] [address] Fay Leigh, PharmD [address] [place] [address] documented as of this encounter Visit Diagnoses Not on filedocumented in this encounter Care Teams Director Of Acquisitions Relationship Specialty Start Date End Date Nupur Weir ANP [address] [place] [address] PCP - General Family Medicine 01/16/20 Abel Chavarria, ILENE [address] [place] [address] Registered Nurse Family Medicine 02/26/25 Margareth Chavarria 02/26/25 documented as of this encounter
--- OUTSIDE RECORDS SUMMARY | 2025-05-01 15:41 | XMS_ITS | Encounter Summary ---
Author Organization [employer] Address [address] 7[address] [place] [address] Care Team Providers Care Physical Meteorologist Name Role Phone Nupur Weir Primary Care Provider [phone] Abel Chavarria RN Unavailable [phone] Margareth Chavarria Unavailable Reason for Visit * Reason Comments Med Refill Encounter Details Date Type Department Care Team (Late st Contact Info) Description 03/11/2025 Refill [facility] [address] [place] [address] Nupur Weir ANP [address] [place] [address] Arthralgia, unspecified joint Social History Tobacco Use [...] 05/08/2025 9:45 AM EDT Office Visit [address] [address] 05/15/2025 9:15 AM EDT Office Visit [address] [address] Nupur Weir, ANP [address] [place] [address] 09/28/2025 9:30 AM EST Medication Management [address] [address] Fay Leigh, MayoD [address] [place] [address] documented as of this encounter Visit Diagnoses Diagnosis Arthralgia, unspecified joint documented in this encounter Care Teams Physical Meteorologist Relationship Specialty Start Date End Date Nupur Weir ANP [address] [place] [address] PCP - General Family Medicine 01/16/20 Abel Chavarria RN 505 [place] [address] Registered Nurse Family Medicine 02/26/25 Margareth Chavarria 02/26/25 documented as of this encounter
--- OUTSIDE RECORDS SUMMARY | 2025-05-01 15:41 | XMS_ITS | Encounter Summary ---
Author Organization [employer] Address [address] [place] [address] Street 7t [place] [address] Care Team Providers Care Weight Recorder Name Role Phone Nupur Weir Primary Care Provider [phone] Abel Chavarria RN Unavailable [phone] Margareth Chavarria Unavailable Reason for Visit * Reason Comments Med Refill Encounter Details Date Type Department Care Team (Late st Contact Info) Description 09/19/2023 Refill [facility] 230 [place] [address] Nupur Weir ANP 230 [place] [address] Constipation, unspecified constipation type Social History Tobacco [...] 05/08/2025 9:45 AM EDT Office Visit [address] [address] 05/15/2025 9:15 AM EDT Office Visit [address] [address] Nupur Weir ANP [address] [place] [address] 09/28/2025 9:30 AM EST Medication Management [address] [address] Fay Leigh PharmD [address] [place] [address] documented as of this encounter Visit Diagnoses Diagnosis Constipation, unspecified constipation type documented in this encounter Care Teams Weight Recorder Relationship Specialty Start Date End Date Nupur Weir ANP [address] [place] [address] PCP - General Family Medicine 01/16/20 Abel Chavarria, ILENE [address] [place] [address] Registered Nurse Family Medicine 02/26/25 Margareth Chavarria 02/26/25 documented as of this encounter
--- OUTSIDE RECORDS SUMMARY | 2025-05-01 15:41 | XMS_ITS | Encounter Summary ---
Author Organization [employer] Address [address] [facility] [facility] [address] 7t [place] [address] Care Team Providers Care Customer Security Clerk Name Role Phone Nupur Weir Primary Care Provider [phone] Abel Chavarria RN Unavailable [phone] Margareth Chavarria Unavailable Reason for Visit * Reason Comments Med Refill Encounter Details Date Type Department Care Team (Late st Contact Info) Description 03/22/2024 Refill [facility] [address] [place] [address] Marcella Colindres MD [address] [place] [address] Acute pyelonephritis Social History Tobacco Use Types [...] 05/08/2025 9:45 AM EDT Office Visit [address] [address] 05/15/2025 9:15 AM EDT Office Visit [address] [address] Nupur Weir ANP [address] [place] [address] 09/28/2025 9:30 AM EST Medication Management [address] [address] Fay Leigh PharmD [address] [place] [address] documented as of this encounter Visit Diagnoses Diagnosis Acute pyelonephritis 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
--- OUTSIDE RECORDS SUMMARY | 2025-05-01 15:41 | XMS_ITS | Encounter Summary ---
Author Organization [employer] Address [address] [facility] [facility] [address] [place] [address] Care Team Providers Care Steam Hammer Operator Name Role Phone Nupur Weir Primary Care Provider [phone] Abel Chavarria RN Unavailable [phone] Margareth Chavarria Unavailable Reason for Visit * Reason Comments Med Refill Encounter Details Date Type Department Care Team (Late st Contact Info) Description 11/11/2023 Refill [facility] [address] [place] [address] Nupur Weir ANP 230 [place] [address] Social History Tobacco Use Types Packs/Day Years [...] Description 05/08/2025 9:45 AM EDT Office Visit [address] [address] 05/15/2025 9:15 AM EDT Office Visit [address] [address] Nupur Weir ANP [address] [place] [address] 09/28/2025 9:30 AM EST Medication Management [address] [address] Fay Leigh, PharmD [address] [place] [address] documented as of this encounter Visit Diagnoses Not on filedocumented in this encounter Care Teams Steam Hammer Operator Relationship Specialty Start Date End Date Nupur Weir ANP [address] [place] [address] PCP - General Family Medicine 01/16/20 Abel Chavarria, RN [address] [place] [address] Registered Nurse Family Medicine 02/26/25 Margareth Chavarria 02/26/25 documented as of this encounter
--- OUTSIDE RECORDS SUMMARY | 2025-05-01 15:41 | XMS_ITS ---
Author Organization [employer] Address [address] [place] [address] [address]t [place] [address] Care Team Providers Care Lines Tender Name Role Phone Nupur Weir Primary Care Provider [phone] Abel Chavarria RN Unavailable [phone] Margareth Chavarria Unavailable CM Complex Status:Enrolled (Active) Start date:02/26/2025 Enrollment date:03/15/2025 Enrollment reason:ADT Feed Overview ED- Pt went to [facility] ED on 02/24/25. Case Team Name Relationship Phone Abel Chavarria RN(Responsible Staff) Registered Nurse [phone] Continued Care and Services Coordination
--- OUTSIDE RECORDS SUMMARY | 2025-05-01 15:41 | XMS_ITS | Encounter Summary ---
Author Organization [employer] Address [address] [place] [address] 7t [place] [address] Care Team Providers Care Berry Picker Machine Operator Name Role Phone Nupur Weir Primary Care Provider [phone] Abel Chavarria RN Unavailable [phone] Margareth Chavarria Unavailable Reason for Visit * Reason Onset Date Comments Med Refill 05/14/2023 Encounter Details Date Type Department Care Team (Late st Contact Info) Description 05/14/2023 Telephone [facility] [address] [place] [address] Nupur Weir ANP [address] [place], [place] [phone] Med Refill Social History Tobacco Use Types [...] Description 05/08/2025 9:45 AM EDT Office Visit [address] [address] 05/15/2025 9:15 AM EDT Office Visit [address] [address] Nupur Weir ANP [address] [place] [address] 09/28/2025 9:30 AM EST Medication Management [address] [address] Fay Leigh PharmD [address] [place] [address] documented as of this encounter Visit Diagnoses Not on filedocumented in this encounter Care Teams Berry Picker Machine Operator Relationship Specialty Start Date End Date Nupur Weir ANP [address] [place] [address] PCP - General Family Medicine 01/16/20 Abel Chavarria, ILENE [address] [place] [address] Registered Nurse Family Medicine 02/26/25 Margareth Chavarria 02/26/25 documented as of this encounter
--- OUTSIDE RECORDS SUMMARY | 2025-05-01 15:41 | XMS_ITS | Encounter Summary ---
Author Organization [employer] [facility] Address [address] [place] [address] 7t [place] [address] Care Team Providers Care Managing Director Name Role Phone Nupur Weir Primary Care Provider [phone] Abel Chavarria RN Unavailable [phone] Margareth Chavarria Unavailable Reason for Visit * Reason Comments Med Refill Encounter Details Date Type Department Care Team (Late st Contact Info) Description 01/09/2023 Refill [facility] [address] [place] [address] Nupur Weir ANP 230 [place] [address] Arthralgia, unspecified joint; Other specified hypothyroidism Social [...] Description 05/08/2025 9:45 AM EDT Office Visit [address] [address] 05/15/2025 9:15 AM EDT Office Visit [address] [address] Nupur Weir ANP [address] [place] [address] 09/28/2025 9:30 AM EST Medication Management [address] [address] Fay Leigh PharmD [address] [place] [address] documented as of this encounter Visit Diagnoses Diagnosis Arthralgia, unspecified joint Other specified hypothyroidism documented in this encounter Care Teams Managing Director Relationship Specialty Start Date End Date Nupur Weir ANP [address] [place] [address] PCP - General Family Medicine 01/16/20 Abel Chavarria, RN [address] [place] [address] Registered Nurse Family Medicine 02/26/25 Margareth Chavarria 02/26/25 documented as of this encounter
--- OUTSIDE RECORDS SUMMARY | 2025-05-01 15:41 | XMS_ITS | Clinical Summary ---
Author Organization [employer] Address [address] [place] [address] Care Team Providers Care Unemployment Specialist Name Role Phone Michael Yanez Primary Care Provider Abel Chavarria RN Unavailable Margareth Chavarria Unavailable Allergies Active Allergy Reactions Criticality Noted Date Comments Ondansetron 09/01/2022 Promethazine 04/29/2014 Sumatriptan 10/19/2011 Other reaction(s): tablet only Medications * This document contains information received from the source organization and may not represent a complete record from that organization. SUMAtriptan Succinate 4 MG/0.5ML solution auto-injectorIndi cations:Migraine with aura and without status migrainosus, not intractable Admin 0.5mL under the skin once as needed for migraine, can repeat once in 1 hour if not effective 1 mL 2 023 Active dicyclomine (Bentyl) 10 MG capsule Take 1 capsule by mouth. 2 to 4 times a day 024 Active dilTIAZem CD (Cardizem CD) 180 MG 24 hr capsule Take 1 capsule by mouth Once per day. 024 Active magnesium oxide (Mag-Ox) 400 (240 Mg) MG tablet Take 1 tablet by mouth Once per day. 024 Active pantoprazole (ProtoNix) 40 MG EC tablet Take 1 tablet by mouth Once per day. 024 Active pyridoxine (Vitamin B-6) 100 MG tablet Take 1 tablet by mouth Once per day. 024 Active raloxifene (Evista) 60 MG tablet Take 1 tablet by mouth Once per day. Active solifenacin (VESIcare) 5 MG tablet Take 1 tablet by mouth Once per day. Active topiramate (Topamax) 100 MG tablet Take 1 tablet by mouth in the morning and 1 tablet in the evening. 024 Active clotrimazole (Lotrimin) 1 % creamIndications: Intertrigo Apply twice daily for 14-28d to [facility] 30 g 025 Active Cholecalciferol (Vitamin D3) 125 MCG (5000 UT) chewable tablet Chew 1 tablet Once per day. otc Active polyethylene glycol, PEG, 3350 (MiraLax) 17 [...] HOURS NEEDED 18 g 1 025 Active Spacer/Aero-Holdi ng Chambers (OptiChamber Sylvia-Lg Mask) deviceIndications :Moderate asthma without complication, unspecified whether persistent Use for metered doses inhaler as directed 1 each 025 Active fluticasone (Flonase) 50 MCG/ACT nasal spray Administer 2 sprays into each nostril Once per day. 16 g 1 025 Active senna-docusate (Stimulant Laxative) 8.6-50 MG tabletIndications :Constipation, unspecified constipation type TAKE 2 TABLETS BY MOUTH DAILY NEEDED FOR CONSTIPATION 180 tablet 1 025 Active atovaquone-progua nil (Malarone) 250-100 MG tabletIndications :Need for malaria prophylaxis Begin 1 - 2 days before travel, take 1 tab daily during travel and for 7 days after leaving. 28 tablet Active naloxone (Narcan) 4 mg/0.1 mL nasal sprayIndications: Long-term current use of opiate analgesic Administer 1 spray (4 mg) into affected nostril(s) if needed for opioid reversal. May repeat every 2-3 minutes if needed, alternating nostrils, until medical assistance becomes available. 2 each 2 025 2025 Active levothyroxine (Synthroid, Levoxyl) 25 MCG tabletIndications :Other specified hypothyroidism TAKE 1 TABLET BY MOUTH EVERY MORNING BEFORE BREAKFAST 90 tablet 1 Active Mometasone Furoate (Asmanex HFA) 100 MCG/ACT aerosol INHALE 1 PUFF EVERY TWELVE HOURS 13 g 1 Active cyclobenzaprine (Flexeril) 10 MG tablet Take 1 tablet (10 mg) by mouth at bedtime for 10 days. 10 tablet Active meloxicam (Mobic) 15 MG tablet Take 1 tablet (15 mg) by mouth Once per day. 30 tablet 025 2025 Active Ascorbic Acid (vitamin C) 500 MG tabletIndications :Iron deficiency anemia, unspecified iron deficiency anemia type TAKE 1 TABLET BY MOUTH EVERY EVENING WITH IRON supplement 90 tablet Active losartan (Cozaar) 50 MG tabletIndications :Primary hypertension TAKE 1 TABLET BY MOUTH EVERY MORNING 90 tablet Active gabapentin (Neurontin) 100 MG capsuleIndication s:Arthralgia, unspecified joint TAKE 1 CAPSULE BY MOUTH AT NOON, EVENING, AND BEDTIME 90 capsule 2 Active tiZANidine (Zanaflex) 2 MG tablet Take 1 tablet (2 mg) by mouth every 8 (eight) hours if needed (pain) for up to 10 days. 30 tablet Active lidocaine (Lidoderm) 5 % patch APPLY 1 PATCH TOPICALLY TO THE SKIN DAILY. LEAVE ON MOST PAINFUL AREA FOR UP TO 12 HOURS 30 patch 1 Active acetaminophen (Tylenol Extra Strength) 500 MG tablet Take 1 tablet (500 mg) by mouth every 6 (six) hours if needed for mild pain. 60 tablet 08/06/2 025 Active ferrous sulfate (Fe Tabs) 325 (65 Fe) MG EC tabletIndications :Iron deficiency anemia, unspecified iron deficiency anemia type Take 1 tab every other day with vitamin C or juice. Do not crush, chew, or split. 45 tablet 1 025 Active traMADol (Ultram) 50 MG tabletIndications :Long-term current use of opiate analgesic,Back pain, unspecified back location, unspecified back pain laterality, unspecified chronicity TAKE 1 TABLET BY MOUTH EVERY 8 HOURS NEEDED FOR SEVERE PAIN FOR UP TO 7 DAYS 21 tablet 025 Active ferrous sulfate (Fe Tabs) 325 (65 Fe) MG EC tabletIndications :Iron deficiency anemia, unspecified iron deficiency anemia type Take 1 tab every other day with vitamin C or juice. Do not crush, chew, or split. 45 tablet 1 024 2024 Discontinued(R eorder (will not trigger notification to Pharmacy)) lidocaine (Lidoderm) 5 % patch APPLY 1 PATCH TOPICALLY TO THE SKIN DAILY. LEAVE ON MOST PAINFUL AREA FOR UP TO 12 HOURS 30 patch 1 024 2024 Discontinued(R eorder (will not trigger notification to Pharmacy)) azithromycin (Zithromax Z-Angel) 250 MG tablet Take 2 tablets once on day 1, then 1 tablet 1x/day for 4 days. 6 tablet 025 2024 Discontinued(T herapy completed) acetaminophen (Tylenol Extra Strength) 500 MG tablet Take 1 tablet (500 mg) by mouth every 6 (six) hours if needed for mild pain. 120 tablet 025 2024 Discontinued(R eorder (will not trigger notification to Pharmacy)) Diclofenac Sodium 1 % gel Apply 1 inch topically if needed in the morning and at bedtime (pain). 60 g 025 2024 traMADol (Ultram) 50 MG tabletIndications :Long-term current use of opiate analgesic,Back pain, unspecified back location, unspecified back pain laterality, unspecified chronicity Take 1 tablet (50 mg) by mouth every 8 (eight) hours if needed for severe pain for up to 7 days. 21 tablet 025 2024 Discontinued ibuprofen 800 MG tablet Take 1 tablet (800 mg) by mouth if needed in the morning, at noon, and at bedtime for mild pain for up to 10 days. 30 tablet 025 2024 Active Problems Problem Noted Date Diagnosed Date Moderate major depression 04/11/2025 Acute bursitis of left shoulder 03/12/2025 Assessment & Plan (03/12/2025 5:01 PM EDT): Patient will apply heat to affected area, start meloxicam tomorrow + Tylenol 3 times daily + Flexeril nightly Can use diclofenac gel twice daily on affected area and gentle stretching exercises, will refer to PT Toradol injection today Subacute pansinusitis 12/11/2024 Assessment & Plan (12/11/2024 10:46 AM EDT): Rx Augmentin x 10d Rest (sleep at least 8 hours a night). Hydrate with plenty of water (avoid caffeine and alcohol). Use saline nose drops to loosen mucus + Flonase Take Acetaminophen (Tylenol )/Ibuprofen as needed to reduce fever, headache, body [...] 72 hours (temperature should be less than 100 F without medication). DC as needed persistent symptoms, presence of vaginal discharge, diarrhea. 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 Encouraged multifactorial approach to pain control including pharm and non-pharm modalities Pill count as expected. UTOX unexpected. 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 Send out MTD and BZO confirmatory. Possible BZO from psych. Chronic interstitial cystitis 03/10/2012 Gastroesophageal reflux disease 03/10/2012 Insomnia 03/10/2012 Irritable bowel syndrome 03/10/2012 Stress incontinence, female 03/10/2012 Anxiety 02/15/2012 Depressive disorder 02/15/2012 Obesity 02/15/2012 Pure hypercholesterolemia 02/15/2012 Encounters * This document contains information received from the source organization and may not represent a complete record from that organization. Date Type Department Care Team Description 05/01/2025 Orders Only [facility] [address] [place] [phone] Jaleel Block MD 04/25/2025 Patient Outreach [facility] [address] [place] [phone] Michael Yanez ANP 04/23/2025 Patient Outreach [facility] [address] [place] [phone] Michael Yanez ANP Care Management (C3CM- f/u call) 04/18/2025 Refill [facility] [address] [place] [address] Michael Yanez ANP Long-term current use of opiate analgesic; Back pain, unspecified back location, unspecified back pain laterality, unspecified chronicity 04/17/2025 10:30 AM EDT Clinical Support [facility] [address] [place] [address] Kassy Ramsey, RN Long-term current use of opiate analgesic (Primary Dx) 04/17/2025 Refill [facility] [address] [place] [address] Michael Yanez ANP Iron deficiency anemia, unspecified iron deficiency anemia type 04/17/2025 Telephone [facility] [address] [place] [address] Kassy Ramsey RN 04/17/2025 Travel 04/16/2025 Refill [facility] [address] [place] [address] Michael Yanez ANP Iron deficiency anemia, unspecified iron deficiency anemia type 04/11/2025 4:00 PM EDT Office Visit [address] [address] Michael Yanez ANP Primary hypertension (Primary Dx) 04/11/2025 Orders Only GENERIC EXTERNAL DATA DEPARTMENT Provider, Generic External Data 04/11/2025 Travel 04/10/2025 9:45 AM EDT Office Visit [address] [address] Anushka Gunter, KYLER Lumbar spondylosis (Primary Dx); Long-term current use of opiate analgesic 04/10/2025 Patient Outreach [address] [address] Michael Yanez ANP Care Coordination (C3/CHW KHUSHBU Edwards- Appt reminder) 04/10/2025 Telephone [facility] [address] [place] [address] Kassy Ramsey RN 04/10/[address] [address] Jaleel Block MD CTA Chest order 04/10/[address] [address] Michael Yanez ANP CHART PREP 04/10/2025 Telephone [facility] [address] [place] [address] Kassy Ramsey RN 04/10/2025 Travel 04/10/[address] [address] Michael Yanez ANP ER Follow-up 04/09/2025 Patient Outreach [address] [address] Michael Yanez ANP Care Management (C3- f/u call) 04/09/2025 Patient Outreach [address] [address] Michael Yanez ANP 04/06/2025 Patient Outreach [address] [address] Michael Yanez ANP Pre-visit Planning (SDOH screening completed on 02/26/25 ) 04/05/2025 Patient Outreach [address] [address] Michael Yanez ANP 04/05/2025 Telephone [facility] [address] [place] [address] Jaleel Block MD 04/05/2025 [facility] [address] [address] Jaleel Block MD Right-sided chest pain (Primary Dx); Hemoptysis 04/05/2025 Orders Only [facility] External Provider, [facility] 04/04/2025 9:40 AM EDT [facility] [address] [address] Jaleel Block MD Right-sided chest pain (Primary Dx); Hemoptysis 04/04/2025 Telephone [facility] [address] [address] Jaleel Block MD 04/04/2025 Orders Only [facility] [address] [address] Jaleel Block MD 04/04/2025 Telephone [facility] [address] [place] [address] Jaleel Block MD 04/04/2025 Travel 03/28/2025 Patient Outreach [address] [address] Michael Yanez ANP Care Coordination (C3/W Margareth Chavarria TC- PT-1 Coordination) 03/27/2025 Patient Outreach [address] [address] Michale Yanez ANP Care Management (C3CM- f/u call) 03/22/2025 Orders Only GENERIC EXTERNAL DATA DEPARTMENT Provider, Generic External Data 03/22/2025 Travel 03/22/[address] [address] Michael Yanez ANP Long-term current use of opiate analgesic (Primary Dx); Back pain, unspecified back location, unspecified back pain laterality, unspecified chronicity 03/21/2025 Patient Outreach [facility] [address] [place] [phone] Michael Yanez ANP Care Coordination ([facility]/KHUSHBU Jurado-Appt reminder-[facility]) 03/19/2025 Refill [facility] [address] [place], [place] [address] [address] Michael Yanez ANP Arthralgia, unspecified joint 03/16/2025 Patient Outreach [address] [address] Michael Yanez ANP Care Coordination ([facility]/Isra Chavarria-KHUSHBU- Booked PT-1 for upcoming appt to [facility]) 03/15/2025 Patient Outreach [address] [address] Michael Yanez ANP Care Management ([facility]- initial assessment/ enrollment/) 03/15/[address] [address] Berkley Hinkle, ILENE 03/15/2025 Plan of Care Documentation [address] [address] 03/14/[address] [address] Michael Yanez ANP Iron deficiency anemia, unspecified iron deficiency anemia type; Primary hypertension 03/13/2025 Patient Outreach [address] [address] Michael Yanez ANP Care Coordination ([facility]/KHUSHBU Jurado- CM Complex Care [place] Appt Reminder) 03/12/2025 2:00 PM EDT Office Visit [facility] [address] [place] [phone] Marcella Colindres MD Acute bursitis of left shoulder (Primary Dx) 03/12/2025 Travel 03/12/2025 Patient Outreach [address] [address] Michael Yanez ANP 03/11/[address] [address] Michael Yanez ANP Arthralgia, unspecified joint 03/10/2025 Orders Only GENERIC EXTERNAL DATA DEPARTMENT Provider, Generic External Data 02/28/2025 Patient Outreach [address] [address] Michael Yanez ANP 02/27/2025 1:00 PM EDT Telemedicine [address] [address] Julianne Anne RN Strain of left shoulder, initial encounter 02/27/2025 Travel 02/26/2025 Patient Outreach [address] [address] Michael Yanez ANP Care Coordination (C3/W Margareth Chavarria - ADT Outreach-Agrees to participate) 02/26/2025 Patient Outreach [address] [address] Michael Yanez ANP Care Coordination (C3/[facility] Margareth Chavarria, Chart Review) 02/26/2025 Patient Outreach [address] [address] iMchael Yanez ANP Care Management (C3CM- chart review) 02/26/2025 Patient Outreach [address] [address] Michael Yanez ANP 02/25/2025 Refill [facility] [address] [place] [address] Jaleel Block MD 02/12/2025 Refill [facility] [address] [place], [place] [phone] Michael Yanez ANP Other specified hypothyroidism 02/06/2025 Telephone [facility] [address] [place], [place] [phone] Kassy Ramsey RN 02/05/2025 Orders Only [facility] External Provider, [facility] from Last 3 Months Immunizations Immunization Administration Dates Next Due Hep A, Adult 01/12/2025 Hep B, adult 02/15/2008,10/26/2007,09/07/2007 Influenza injectable quadriv alent preservative free 09/01/2022,08/19/2021,07/12/2020,07/17,06/10/2017,10/12/2016 Influenza, IIV3, injectable 05/25/2014, 2,05/07/2011 Influenza, Split (incl. [place] antigen) 05/11/2013 Influenza, seasonal, injecta ble, preservative free 07/21/2024 Pfizer Covid-19 Vaccine 12+ 01/12/2025(Deferred: Patient decision) Pneumococcal Conjugate PCV 20 12/15/2024 [...] Sign Reading Time Taken Comments Blood Pressure 104/70 04/11/2025 4:23 PM EDT Pulse 70 04/11/2025 4:23 PM EDT Temperature 36.3 C (97.4 F) 04/04/2025 9:16 AM EDT Respiratory Rate 20 04/11/2025 4:23 PM EDT Oxygen Saturation 98% 04/04/2025 9:16 AM EDT Inhaled Oxygen Concentration - - Weight 64.9 kg (143 lb) 04/11/2025 4:23 PM EDT Height 165.1 cm (5' 5 ) 04/11/2025 4:23 PM EDT Body Mass Index 23.8 04/11/2025 4:23 PM EDT Plan of Treatment Upcoming Encounters Date Type Department Care Team (Late st Contact Info) Description 05/08/2025 9:45 AM EDT Office Visit [facility] [address] [place] [phone] 05/15/2025 9:15 AM EDT Office Visit [address] [address] Michael Yanez ANP [address] [place] [address] 09/28/2025 9:30 AM EST Medication Management [address] [address] Fay Leigh, PharmD [address] [facility] [place] [address] Health Maintenance Due Date Last Done Comments CT Colonography 1965 FIT DNA/Cologuard 1965 FIT 1965 FOBT 1965 Sigmoidoscopy 1965 Pap Smear 1987 HPV/Cotest 01/27/1996 Dental Oral Exam 11/06/2024 05/08/2024, 03/20/2022 Dental Prophylaxis 11/06/2024 05/08/2024, 03/20/2022 Dental X-Ray: Full Mouth 03/21/2025 03/20/2022 Influenza Vaccine (#1) 2025 , 09/01/2022, 08/19/2021, Additional history exists Dental X-Ray: Bitewings 05/09/2025 05/08/2024 Alcohol/Substance Use Screening 07/07/2025 07/07/2024 Depression Monitoring 10/13/2025 04/12/2025, 025 Disability Screening 12/15/2025 12/15/2024 Mammogram 02/05/2026 02/05/2025, 04/04/2024, 11/09/2018 SDOH Screening 02/26/2026 02/26/2025 Tobacco Screening 04/11/2026 04/11/2025 Lipid Panel 08/25/2029 08/25/2024, 12/08/2021 DTaP/Tdap/Td Vaccines [...] Completed 01/04/2024, 08/30, 12/08/2021, Additional history exists Zoster Vaccines Completed 10/03/2024, 07/21/2024 Pneumococcal Vaccine: 50+ Years Completed 12/15/2024, 07/17/2018, 02/09/2014 Hepatitis A Vaccines Aged Out 01/12/2025 No long er eligible based on patient's age to complete this topic COVID-19 Vaccine Discontinued Cervical Cancer Screening Discontinued HIB Vaccines Aged Out No longer eligi ble based on patient's age to complete this topic HPV Vaccines Aged Out No longer eligi ble based on patient's age to complete this topic IPV Vaccines Aged Out No longer eligi ble based on patient's age to complete this topic Meningococcal B Vaccine Aged Out No l onger eligible based on patient's age to complete [...] PE PROTOCAL Routine 05/01/2025 2:33 PM EDT POCT MERY-14 URINE DRUG SCREEN Routine 04/17/2025 10:40 AM EDT Long-term current use of opiate analgesic HEMATOXYLIN AND EOSIN STAIN Routine 04/11/2025 12:01 PM EDT POCT MERY-14 URINE DRUG SCREEN Routine 04/10/2025 10:46 AM EDT Long-term current use of opiate analgesic DRUG MONITORING, BENZODIAZEPINES, QUANTITATIVE, URINE Routine 04/10/2025 10:00 AM EDT Long-term current use of opiate analgesic METHADONE SCREEN, URINE Routine 04/10/2025 10:00 AM EDT Long-term current use of opiate analgesic US ABDOMEN LIMITED Routine 04/05/2025 12 :53 PM EDT URINALYSIS, COMPLETE, WITH REFLEX TO CULTURE Routine 04/05/2025 10:08 AM EDT HIGH SENSITIVITY TROPONIN I Routine 04/05/2025 10:05 AM EDT LIPASE Routine 04/05/2025 10:05 AM EDT COMPREHENSIVE METABOLIC PANEL Routine 04/05/2025 10:05 AM EDT D DIMER HIGH SENSITIVITY Routine 04/05/2025 10:05 AM EDT CBC WITH AUTO DIFFERENTIAL Routine 04/05/2025 10:[address] ABDOMEN PELVIS WO CONTRAST Routine 04/05/2025 9:45 AM EDT XR CHEST 2 VIEWS Routine 04/05/2025 8:44 AM EDT CULTURE, URINE, ROUTINE Routine 04/05/2025 12:00 AM EDT Right-sided chest pain XR CHEST 2 VIEWS Routine 04/04/2025 2:35 PM EDT Right-sided chest pain Hemoptysis D DIMER HIGH SENSITIVITY Routine 04/04/2025 2:21 PM EDT CREATININE, SERUM Routine 04/04/2025 2:2 1 PM EDT Right-sided chest pain UREA NITROGEN (BUN) Routine 04/04/2025 2 :21 PM EDT Right-sided chest pain CULTURE, URINE, ROUTINE Routine 03/22/2025 11:18 AM EDT HIGH SENSITIVITY TROPONIN I Routine 03/10/2025 11:57 AM EDT LIPASE Routine 03/10/2025 11:57 AM EDT MAGNESIUM Routine 03/10/2025 11:57 AM EDT COMPREHENSIVE METABOLIC PANEL, FASTING Routine 03/10/2025 11:57 AM EDT CBC WITH AUTO DIFFERENTIAL Routine 03/10/2025 11:57 AM EDT XR CHEST 2 VIEWS Routine 03/10/2025 11:0 5 AM EDT XR HIP LEFT WITH PELVIS 1 VIEW Routine 02/24/2025 12:58 PM EDT XR SHOULDER 2+ VIEWS LEFT Routine 02/24/2025 12:58 PM EDT XR KNEE 4+ VIEWS LEFT Routine 02/24/2025 12:55 PM EDT BI MAMMOGRAM SCREENING TOMOSYNTHESIS BILATERAL Routine 02/05/2025 12:34 PM EDT LIPID PANEL, STANDARD Routine 08/25/2024 10:00 AM [...] Routine 01/04/2024 9:49 AM EDT Memory loss HEPATITIS C ANTIBODY Routine 09/09/2022 10:23 AM EST HM COLONOSCOPY Routine 07/08/2021 12:15 PM EST from Last 3 Months or Most Recently Relevant to Health Maintenance Results * CTA Chest PE Protocal (05/01/2025 2:33 PM EDT) Anatomical Region Laterality Modality Body, Chest Computed Tomogra phy 05/01/2025 2:33 PM EDT Narrative 05/01/2025 3:11 PM EDT [address] [address] [address] Scan Report Signed Patient: Laura Gonzalez MR#: [id number] : 1965 Acct:[id number] Age/Sex: 60 / F ADM Date: 05/01/25 Loc: .CT Attending Dr: Jaleel Block MD Ordering Physician: JALEEL BLOCK MD Date of Service: 05/01/25 Procedure(s): CT angio chest PE protocol Accession Number(s): [id number] cc: JALEEL BLOCK MD; MICHAEL YANEZ NP Report Number: [id number]: Total DLP = 139.00 mGy-cm Reason for [...] Kleber Garg MD 05/01/2025 03:08 PM EDT Dictated By: Kleber Garg MD Signed By: <Electronically signed by Kleber Garg MD in OV> 05/01/25 1508 DD/ 1433 TD/TT: 05/01/25 1452 Bag Adjuster: Procedure Note Donotrikkiter, Image - 05/01/[address] [place] [address] [address] Scan Report Signed Patient: Aleksandar Gonzalez#: [id number] : 1965Acct:[id number] Age/Sex: 60 / FADM Date: 05/01/25 Loc: HO.CT Attending Dr: Jaleel Block MD Ordering Physician: JALEEL BLOCK MD Date of Service: 05/01/25 Procedure(s): CT angio chest PE protocol Accession Number(s): [id number] cc: JALEEL BLOKC MD; MICHAEL YANEZ NP Report Number: [id number]: Total DLP = 139.00 mGy-cm Reason for [...] 05/01/25 1508 DD/ 1433 TD/TT: 05/01/25 1452 Bag Adjuster: Jaleel Block MD IMG CT PROCEDURES Final Result * (ABNORMAL) POCT MERY-14 Urine Drug Screen (04/17/2025 10:40 AM EDT) Only the most recent of2 resultswithin the time period is included. THC Negative Negative Cocaine Screen, Urine Negative Negative Opiate Screen, Urine Negative Negative Methamphetamine Screen Urine Negative Negative Amphetamine Screen, Urine Negative Negative Benzodiazepines Screen, Urine Negative Negative Barbiturate Screen, Urine Negative Negative Methadone Screen, Urine Negative Negative Buprenophine Screen, Urine Negative Negative TCA, Urine Positive(A) Negative MDMA Urine Negative Negative ng/mL Oxycodone Screen, Urine Negative Negative Phencyclidine (PCP), Urine Negative Negative Propoxyphene, Urine Negative Negative Fentanyl, Urine Negative Negative Urine Urine specimen obtained by clean catch procedure / Unknown 04/17/2025 10:40 AM EDT Kassy Restrepo RN - 04/17/2025 10:40 AM EDT Internal Pass Control Lot# [id number] Exp: 06-29-26 [facility] POINT OF CARE TEST ENTER/EDIT OR DERABLES Final Result * Hematoxylin and Eosin Stain (04/11/2025 12:01 PM EDT) 04/11/2025 12:0 1 PM EDT 04/11/2025 1:46 PM EDT [facility] - 04/12/2025 2:08 PM EDT ----- ------- Name: Laura Gonzalez Age/Sex: 60/F : 1965 Unit#: [id number] Attend Dr: Tung Potter MD Re04/11/25 Status: [facility] Location: [facility] Disch: ----- ------- SPEC : [id number] RECD: 04/11/25 STATUS: [facility] NUM: [id number] ANGELA: 04/11/25-[address] [facility] [address]: Tung Potter MD ENTERED: 04/11/25 SP TYPE: Surgical OTHR DR: MICHAEL YANEZ NP ORDERED: HE Stain/6, Gross Micro L4/2, IHC, Special st. 2/2, H. pylori, AB/PAS/2 Diagnosis A. Stomach, pouch, biopsy: Gastric body mucosa within normal limits; negative for Helicobacter pylori, intestinal metaplasia and dysplasia. B. Gastroesophageal junction, biopsy: Squamous mucosa within normal limits; negative for inflammation (including intraepithelial eosinophils), fungal organisms, intestinal metaplasia and dysplasia. Clinical History Pre-Op Dx: Abdominal pain Post-Op Dx: Normal post gastric bypass anatomy Microscopic Description A-B. Microscopic sections examined. No metaplastic changes are seen, supported by AB/PAS stains (A); no Helicobacter organisms are seen, supported by H. pylori immunostain (A). Material Received A. Gastric pouch bx B. EG junction bx Gross Description Received in two parts. Part A: Received in formalin labeled gastric pouch bx is a 0.25 cm marti-pink irregular tissue fragment, submitted in toto in a cassette labeled A. Part B: Received in formalin labeled EG junction bx is a 0.2 cm pale, grissom-marti irregular tissue fragment, submitted in toto in a cassette labeled B. CEDS Special stains ordered and performed: AB/PAS on A-B; immunostain for H pylori on A. IHC S/NG Disclaimer NOTE: Unless otherwise stated, all tissue is formalin-fixed and paraffin-embedded. Some or all of the immunohistochemical tests reported herein may have been developed and their performance characteristics determined by [facility]. They have not been cleared or approved by the U.S. Food and Drug Administration (FDA). However, the FDA has determined that such clearance or approval is not necessary. This laboratory is CONTINUED ON NEXT PAGE ----- ------- Name: Laura Gonzalez Age/Sex: 60/F : 1965 Unit#: [id number] Attend Dr: Tung Potter MD Re04/11/25 Status: [facility] Location: [facility] Disch: ----- ------- SPEC : [id number] RECD: 04/11/25 STATUS: CIELO PRICE NUM: [id number] ANGELA: 04/11/25-1201 [facility] DR: Tung Potter MD ENTERED: 04/11/25 SP TYPE: Surgical OTHR DR: MICHAEL YANEZ NP ORDERED: HE Stain/6, Gross Micro L4/2, IHC, Special st. 2/2, H. pylori, AB/PAS/2 IHC S/NG Disclaimer (Continued) certified under the Clinical Laboratory Improvement Amendments of 1988 (CLIA) as qualified to perform high complexity clinical laboratory testing. Copies To: Tung Potter MD [facility] [address] [place] [id number] MICHAEL YANEZ NP [address] [place] [address] ----- ------- Signed (signature on file) Yasmeen Carrasco MD 04/12/25 1408 ----- ------- END OF REPORT us Generic External Data Provider LAB BLOOD ORDERAB LES Final Result [facility] [address] [place] [phone] * Drug Monitoring, Benzodiazepines, Quantitative, Urine (04/10/2025 10:00 AM EDT) Nordiazepam, GCMS Urine NEGATIVE [facility] Comment:CUTOFF: 50 ng/mL Oxazepam, GCMS Urine NEGATIVE [facility] Comment:CUTOFF: 50 ng/mL Lorazepam GCMS Urine NEGATIVE [facility] Comment:CUTOFF: 50 ng/mL Alprazolam, GCMS Urine NEGATIVE [facility] Comment:CUTOFF: 25 ng/mL Alphahydroxytriazolam, GCMS Ur NEGATIVE [facility] Comment:CUTOFF: 50 ng/mL Temazepam, GCMS Urine NEGATIVE [facility] Comment:CUTOFF: 50 ng/mL Alphahydroxymidazolam,GC MS Ur NEGATIVE [facility] Comment:CUTOFF: 50 ng/mL Aminoclonazepam, GCMS Urine NEGATIVE [facility] Comment:CUTOFF: 25 ng/mL Flurazepam Metabolite,GCMS Ur NEGATIVE [facility] Comment:CUTOFF: 50 ng/mL Benzodiazepines Comments SEE NOTE [facility] Comment:This drug testing is for medical treatment only. Analysiswas performed as non-forensic testing and these resultsshould be used only by healthcare providers to renderdiagnosis or treatment, or to monitor progress of medicalconditions.LDT Notes:Confirmation tests were developed and their analyticalperformance characteristics have been determined by [employer]. It has not been cleared or approved by the FDA.This assay has been validated pursuant to the CLIAregulations and is used for clinical purposes.Healthcare Providers needing Interpretation assistance,please contact us at [phone] ( ) M-F,8am to 10pm ESTPERFORMING SITE:[facility] [employer] [facility], [address] [place] [phone] [employer] Operator: NILSA MATTHEWS MD, CLIA:[id number] Urine (Urine, Random) 04/10/2025 10:00 AM EDT 04/10/2025 1:[address] [facility] LAB URINE ORDERABLES Final Resul t [facility] [address] [place] [phone] * Drug Monitoring, Methadone Metabolite, Screen, Urine (04/10/2025 10:00 AM EDT) Methadone Screen, Urine Not Detected Not Detect ng/mL [facility] Comment:Methadone cut-off is 300 ng/mL.Positive results are unconfirmed and should not be used fornon-medical purposes. Urine (Urine, Random) 04/10/2025 10:00 AM EDT 04/10/2025 1:08 PM EDT us Michael Yanez ANP LAB URINE ORDERABLES Final Resul t [facility] [address] [place] [phone] * US Abdomen Limited (04/05/2025 12:53 PM EDT) Anatomical Region Laterality Modality Abdomen Ultrasound 04/05/2025 12:5 3 PM EDT Narrative 04/05/2025 1:28 PM EDT [address] [address] Ultrasound Report Signed Patient: Laura Gonzalez MR#: [id number] : 1965 Acct:[id number] Age/Sex: 60 / F ADM Date: 04/05/25 Loc: HO.ED Attending Dr: Ordering Physician: Alisha Saldivar PA-C Date of Service: 04/05/25 Procedure(s): US abdomen limited Accession Number(s): [id number] cc: Alisha Saldivar PA-C; MICHAEL YANEZ [employer]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 COMPARISON: Correlation is made with a CT of the abdomen without contrast performed earlier in the day. FINDINGS: Liver: The right lobe of the liver measures 14.0 cm in size. The left lobe of the liver measures 10.7 cm in size. The liver demonstrates slightly increased echotexture, consistent with steatosis. No focal mass or intrahepatic biliary ductal dilatation is identified. There is normal hepatopedal flow in the portal vein. Gallbladder and biliary tree: The gallbladder is surgically absent. The common bile duct measures 12 mm diameter. Pancreas: The pancreatic head, neck, and body are unremarkable. The pancreatic tail is obscured by bowel gas. There is no free fluid in the right upper quadrant. US/US abdomen limited IMPRESSION: Mild hepatic steatosis. The common bile duct measures 13 mm in diameter which may be within normal limits for a patient status post cholecystectomy. If there is clinical concern for choledocholithiasis, MRCP could be performed. Electronically signed by: Allen Horta MD 04/05/2025 01:25 PM EDT RP Dictated By: Allen Horta MD Signed By: <Electronically signed by Allen Horta MD in OV> 04/05/25 1325 DD/ 1253 TD/TT: 04/05/25 1302 Bag Adjuster: Procedure Note Donotuseinterpreter, Image - 04/05/2025 [place] [address] Ultrasound Report Signed Patient: Aleksandar Gonzalez#: [id number] : 1965Acct:[id number] Age/Sex: 60 / FADM Date: 04/05/25 Loc: HO.ED Attending Dr: Ordering Physician: Alisha Saldivar PA-C Date of Service: 04/05/25 Procedure(s): US abdomen limited Accession Number(s): [id number] cc: Alisha Saldivar PA-C; MICHAEL YANEZ NP EXAMINATION: US ABDOMEN LIMITED HISTORY: RUQ pain TECHNIQUE: Real-time grayscale ultrasound imaging of the liver and pancreas was performed and images were reviewed. COMPARISON: Correlation is made with a CT of the abdomen without contrast performed earlier in the day. FINDINGS: Liver: The right lobe of the liver measures 14.0 cm in size. The left lobe of the liver measures 10.7 cm in size. The liver demonstrates slightly increased echotexture, consistent with steatosis. No focal mass or intrahepatic biliary ductal dilatation is identified. There is normal hepatopedal flow in the portal vein. Gallbladder and biliary tree: The gallbladder is surgically absent. The common bile duct measures 12 mm diameter. Pancreas: The pancreatic head, neck, and body are unremarkable. The pancreatic tail is obscured by bowel gas. There is no free fluid in the right upper quadrant. US/US abdomen limited IMPRESSION: Mild hepatic steatosis. The common bile duct measures 13 mm in diameter which may be within normal limits for a patient status post cholecystectomy. If there is clinical concern for choledocholithiasis, MRCP could be performed. Electronically signed by: Allen Horta MD 04/05/2025 01:25 PM EDT RP Dictated By: Allen Horta MD Signed By: <Electronically signed by Allen Horta MD in OV> 04/05/25 1325 DD/ 1253 TD/TT: 04/05/25 1302 Bag Adjuster: [facility] External Provider IMG US PROCEDURES Final Result * (ABNORMAL) Urinalysis, Complete, with Reflex to Culture (04/05/2025 10:08 AM EDT) Color Urine Yellow [facility] Appearance Urine Turbid [facility] PH 7.0 5.0 - 9.0 [facility] Glucose Urine UA Negative Negative mg/dL [facility] Urine Blood Negative Negative [facility] Specific [place] - Urine 1.015 1.005 - 1.025 [facility] Urine Protein Negative Neg-Trace mg/dL [facility] Urine Ketones Negative Negative mg/dL [facility] Nitrite Urine Negative Negative [facility] Leukocyte Esterase Urine Moderate (2+)(A) Negative [facility] RBC Urine 0-2 0 - 2 /HPF [facility] Urine WBC 6-10(A) 0 - 5 /HPF [facility] Urine Squamous Epithelial Cell 0-2 0 - 2 /HPF [facility] Urine Bacteria None Seen None Seen [facility] Hyaline Casts, Urine 0-2 0 - 2 /LPF [facility] 04/05/2025 10:0 8 AM EDT 04/05/2025 10:13 AM EDT Narrative [facility] - 04/05/2025 10:22 AM EDT Urine, Clean Catch Generic External Data Provider LAB URINE ORDERAB LES Final Result Performing Organization Address [facility] Phone Number [facility] [address] [place] [phone] * D Dimer High Sensitivity (04/05/2025 10:05 AM EDT) Only the most recent of2 resultswithin the time period is included. [facility] D Dimer High Sensitivity 164 NG/ML [facility] Comment:D-DIMER HS REFERENCE RANGENote: Our assay reports D-Dimer Units (D- DU).The cut-off value for venous thromboembolic (VTE) disease is230 ng/mL. This value has a very high negative predictivevalue when the patient has a low to moderate clinicalprobability of VTE.The upper limit of normal is 243 ng/mL. 04/05/2025 10:0 5 AM EDT 04/05/2025 10:08 AM EDT Generic External Data Provider LAB BLOOD ORDERAB LES Final Result Performing Organization Address [facility] [address] [place] [phone] * High Sensitivity Troponin I (04/05/2025 10:05 AM EDT) Only the most recent of2 resultswithin the time period is included. [facility] TROPONIN I HIGH SENSITIVITY <2.7 <3.5 - 17.0 ng/L [facility] Comment:The Brar high sens itivity Troponin-I results should beused in conjunction with other diagnostic information suchas ECG, clinical observations and information, and patientsymptoms to aid in the diagnosis of [place]. 04/05/2025 10:0 5 AM EDT 04/05/2025 10:08 AM EDT Generic External Data Provider LAB BLOOD ORDERAB LES Final Result Performing Organization Address [facility] de Phone Number [facility] [address] [place] [phone] * (ABNORMAL) CBC auto differential (04/05/2025 10:05 AM EDT) Only the most recent of2 resultswithin the time period is included. White Blood Count 4.4(L) 4.8 - 10.8 X10*3/uL [facility] Red Blood Count 4.62 4.20 - 5.50 X10*6/uL [facility] Hemoglobin 13.6 12.0 - 16.0 g/dl [facility] Hematocrit 41.1 37.0 - 47.0 % [facility] Mean Corpuscular Volume 89.0 80.0 - 98.0 fL [facility] Mean Corpuscular Hemoglobin 29.4 27.0 - 33.0 pg [facility] Mean Corpuscular HGB Conc 33.1 31.0 - 35.0 g/dl [facility] Red Cell Distribution Width 13.5 11.0 - 16.0 % [facility] Platelet Count 235 160 - 400 X10*3/uL [facility] Mean Platelet Volume 8.0(L) 9.4 - 12.3 fL [facility] Neutrophils Percent Auto 42.5(L) 45 - 73 % [facility] Imm Gran Pct Auto 0.2 0.0 - 0.4 % [facility] Lymphocytes Percent Auto 41.9(H) 20 - 40 % [facility] Monocytes Percent Auto 11.3(H) 2 - 11 % [facility] Eosinophils Percent Auto 3.2 0 - 4 % [facility] Basophils Percent Auto 0.9 0 - 2 % [facility] NRBC Pct Auto 0.0 0.0 - 0.2 /100WBC [facility] Neutrophils Absolute Auto 1.9(L) 2.0 - 8.3 x10*3/uL [facility] Imm Gran Abs Auto 0.01 0.00 - 0.03 X10*3/uL [facility] Lymphocytes Absolute Auto 1.9 1.2 - 4.9 X10*3/uL [facility] Monocytes Absolute Auto 0.5 0.1 - 1.2 X10*3/uL [facility] Eosinophils Absolute Auto 0.1 0.0 - 0.4 X10*3/uL [facility] Basophils Absolute Auto 0.0 0.0 - 0.2 X10*3/uL [facility] NRBC Abs Auto 0.000 0.0 - 0.012 X10*3/uL [facility] 04/05/2025 10:0 5 AM EDT 04/05/2025 10:08 AM EDT Generic External Data Provider LAB BLOOD ORDERAB LES Final Result Performing Organization Address [facility]/ZIP Co de Phone Number [facility] [address] [place] [phone] * Lipase (04/05/2025 10:05 AM EDT) Only the most recent of2 resultswithin the time period is included. Pathologist [facility] Lipase 19 8 - 78 U/L [facility] 04/05/2025 10:0 5 AM EDT 04/05/2025 10:08 AM EDT [employer] External Data Provider LAB BLOOD ORDERAB LES Final Result Performing Organization Address [facility]/ZIP Co de Phone Number [facility] [address] [place] [phone] * (ABNORMAL) Comprehensive Metabolic Panel (04/05/2025 10:05 AM EDT) Sodium 141 135 - 145 mmol/L [facility] Potassium 4.7 3.3 - 5.1 mmol/L [facility] Chloride 112(H) 96 - 108 mmol/L [facility] Carbon Dioxide 23 22 - 29 mmol/L [facility] Anion Gap 11(L) 12 - 20 [facility] Urea Nitrogen (BUN) 13 9 - 16 mg/dL [facility] Creatinine, Serum 0.70 0.5 - 1.4 mg/dL [facility] Creatinine Clr Calc Pharmacy 85.1 [facility] Comment:Provided height and weight: 165.1 cm,70.307 kg.eGFR (calculated from the MDRD study equation) and eCrCl(calculated from the Cockcroft-Gault equation) are based ondifferent parameters and may not yield comparable results.If eCrCl result is absurd, please check patient'sheight/weight. Estimated Glomerular Filt Rate >60 [facility] Comment:Chronic Kidney Disea se: Estimated GFR < 60 mL/min/1.60v5Pdmerr Kidney Disease: Estimated GFR < 15 mL/min/1.73m2 Glucose 96 60 - 115 mg/dL [facility] Calcium 8.9 8.4 - 10.2 mg/dL [facility] Bilirubin, Total 0.8 0.0 - 1.0 mg/dL [facility] Aspartate Amino Transferase 27 5 - 31 U/L [facility] Alanine Aminotransferase 41(H) 0 - 31 U/L [facility] Total Protein 6.6 6.5 - 8.0 g/dL [facility] Albumin Level 3.9 3.5 - 5.0 g/dL [facility] Alkaline Phosphatase 98 39 - 117 U/L [facility] 04/05/2025 10:0 5 AM EDT 04/05/2025 10:08 AM EDT us Generic External Data Provider LAB BLOOD ORDERAB LES Final Result [facility] [address] [place] [phone] * CT Abdomen Pelvis w/o Contrast (04/05/2025 9:45 AM EDT) Anatomical Region Laterality Modality Body, Pelvis, Abdomen Computed T omography 04/05/2025 9:45 AM EDT Narrative 04/05/2025 10:20 AM EDT [address] [address] [address] Scan Report Signed Patient: Laura Gonzalez MR#: [id number] : 1965 Acct:[id number] Age/Sex: 60 / F ADM Date: 04/05/25 Loc: HO.ED Attending Dr: Ordering Physician: Alisha Saldivar PA-C Date of Service: 04/05/25 Procedure(s): CT abdomen pelvis wo IV con Accession Number(s): [id number] cc: Alisha Saldivar PA-C; MICHAEL YANEZ NP Report Number: [id number]: Total DLP = 431.00 mGy-cm EXAMINATION: CT ABDOMEN AND PELVIS WITHOUT CONTRAST CLINICAL INFORMATION: Right upper quadrant/flank pain. Rule out right-sided hydronephrosis/kidney stone. COMPARISON: 12/31/2024, 07/05/2024. TECHNIQUE: Multidetector volumetric imaging was performed from the superior aspect of the liver through the pubic symphysis. Sagittal and coronal reformatted images were obtained on the technologist's workstation. This CT examination was performed using dose optimization techniques as appropriate, variously including the following: *Automated exposure control *Adjustment of mA and/or kV according to patient size (this includes techniques or standardized protocols for targeted exams where dose is matched to indication/reason for exam; i.e. extremities or head) *Use of iterative reconstruction technique FINDINGS: LUNG BASES: Lung bases are clear. There are no effusions. Heart size is normal. LIVER, GALLBLADDER, AND BILIARY TREE: The unenhanced liver is normal in size, shape, and attenuation. No focal hepatic lesion or biliary ductal dilatation is present. The gallbladder is surgically absent. Prominent common bile duct, unchanged, measuring up to 1.1 cm. This is likely secondary to reservoir effect from cholecystectomy. PANCREAS: Unremarkable. SPLEEN: Unremarkable. ADRENAL GLANDS: Unremarkable. KIDNEYS AND URETERS: Right kidney: 3 mm nonobstructing calculus in the midpole. Right kidney otherwise normal. No hydronephrosis. No hydroureter. Left kidney: Normal appearance. No hydronephrosis. No hydroureter. BLADDER: Unremarkable. GASTROINTESTINAL TRACT: There has been a prior gastric bypass procedure. The gastric pouch and gastrojejunostomy have an unremarkable appearance. The distal anastomosis demonstrates what appears to be an intussusception. There is extensive fecal residue seen throughout the colon and rectum in keeping with constipation. There is no small bowel dilatation or obstruction. There is no large bowel dilatation or wall thickening. There is no CT evidence of appendicitis. ABDOMINAL WALL: No significant hernia is appreciated. LYMPH NODES: Normal. VASCULAR: Unremarkable. PELVIC VISCERA: Probable hysterectomy. No adnexal masses. OSSEOUS STRUCTURES: There are degenerative changes of the spine particularly involving L5-S1. There is a bone island in the left iliac bone. CT/CT abdomen pelvis wo IV con IMPRESSION: 1. There is no obstructive uropathy. There is a nonobstructing 3 mm calculus in the midpole right kidney. 2. There has been gastric bypass procedure. There is what appears to be an intussusception at the distal anastomosis. Given no associated small bowel obstruction, this is likely transient. Would correlate with clinical presentation and symptomatology. 3. There is moderate constipation present. 4. Stable prominence of the common bile duct measuring 1.1 cm. This is likely secondary to reservoir effect from cholecystectomy. 5. There has been a cholecystectomy. 6. There has been a hysterectomy. Electronically signed by: Gallo Schuster MD 04/05/2025 10:18 AM EDT Dictated By: Gallo Schuster MD Signed By: <Electronically signed by Gallo Schuster MD in OV> 04/05/25 1018 DD/ 0945 TD/TT: 04/05/25 1000 Bag Adjuster: Procedure Note Donotuseinterpreter, Image - 04/05/[address] [place] [address] [address] Scan Report Signed Patient: Aleksandar Gonzalez#: [id number] : 1965Acct:[id number] Age/Sex: 60 / FADM Date: 04/05/25 Loc: HO.ED Attending Dr: Ordering Physician: Alisha Saldivar PA-C Date of Service: 04/05/25 Procedure(s): CT abdomen pelvis wo IV con Accession Number(s): [id number] cc: Alisha Saldivar PA-C; MICHAEL YANEZ NP Report Number: [id number]: Total DLP = 431.00 mGy-cm EXAMINATION: CT ABDOMEN AND PELVIS WITHOUT CONTRAST CLINICAL INFORMATION: Right upper quadrant/flank pain. Rule out right-sided hydronephrosis/kidney stone. COMPARISON: 12/31/2024, 07/05/2024. TECHNIQUE: Multidetector volumetric imaging was performed from the superior aspect of the liver through the pubic symphysis. Sagittal and coronal reformatted images were obtained on the technologist's workstation. This CT examination was performed using dose optimization techniques as appropriate, variously including the following: *Automated exposure control *Adjustment of mA and/or kV according to patient size (this includes techniques or standardized protocols for targeted exams where dose is matched to indication/reason for exam; i.e. extremities or head) *Use of iterative reconstruction technique FINDINGS: LUNG BASES: Lung bases are clear. There are no effusions. Heart size is normal. LIVER, GALLBLADDER, AND BILIARY TREE: The unenhanced liver is normal in size, shape, and attenuation. No focal hepatic lesion or biliary ductal dilatation is present. The gallbladder is surgically absent. Prominent common bile duct, unchanged, measuring up to 1.1 cm. This is likely secondary to reservoir effect from cholecystectomy. PANCREAS: Unremarkable. SPLEEN: Unremarkable. ADRENAL GLANDS: Unremarkable. KIDNEYS AND URETERS: Right kidney: 3 mm nonobstructing calculus in the midpole. Right kidney otherwise normal. No hydronephrosis. No hydroureter. Left kidney: Normal appearance. No hydronephrosis. No hydroureter. BLADDER: Unremarkable. GASTROINTESTINAL TRACT: There has been a prior gastric bypass procedure. The gastric pouch and gastrojejunostomy have an unremarkable appearance. The distal anastomosis demonstrates what appears to be an intussusception. There is extensive fecal residue seen throughout the colon and rectum in keeping with constipation. There is no small bowel dilatation or obstruction. There is no large bowel dilatation or wall thickening. There is no CT evidence of appendicitis. ABDOMINAL WALL: No significant hernia is appreciated. LYMPH NODES: Normal. VASCULAR: Unremarkable. PELVIC VISCERA: Probable hysterectomy. No adnexal masses. OSSEOUS STRUCTURES: There are degenerative changes of the spine particularly involving L5-S1. There is a bone island in the left iliac bone. CT/CT abdomen pelvis wo IV con IMPRESSION: 1. There is no obstructive uropathy. There is a nonobstructing 3 mm calculus in the midpole right kidney. 2. There has been gastric bypass procedure. There is what appears to be an intussusception at the distal anastomosis. Given no associated small bowel obstruction, this is likely transient. Would correlate with clinical presentation and symptomatology. 3. There is moderate constipation present. 4. Stable prominence of the common bile duct measuring 1.1 cm. This is likely secondary to reservoir effect from cholecystectomy. 5. There has been a cholecystectomy. 6. There has been a hysterectomy. Electronically signed by: Gallo Schuster MD 04/05/2025 10:18 AM EDT Dictated By: Gallo Schuster MD Signed By: <Electronically signed by Gallo Schuster MD in OV> 04/05/25 1018 DD/ 0945 TD/TT: 04/05/25 1000 Bag Adjuster: [facility] External Provider IMG CT PROCEDURES Final Result * XR Chest 2 Views (04/05/2025 8:44 AM EDT) Only the most recent of3 resultswithin the time period is included. Anatomical Region Laterality Modality Chest Radiographic Jennifer ging 04/05/2025 8:44 AM EDT Narrative 04/05/2025 9:59 AM EDT [place] [address] XRay Report Signed Patient: Laura Gonzalez MR#: [id number] : 1965 Acct:[id number] Age/Sex: 60 / F ADM Date: 04/05/25 Loc: .ED Attending Dr: Ordering Physician: Alisha Saldivar PA-C Date of Service: 04/05/25 Procedure(s): XR chest 2V Accession Number(s): [id number] cc: Alisha Saldivar PA-C; MICHAEL YANEZ NP EXAMINATION: XR CHEST CLINICAL INFORMATION: right upper quadrant pain COMPARISON: 04/04/2025. TECHNIQUE: 2 views of the chest were obtained. FINDINGS: The cardiac, hilar, and mediastinal contours are normal. The lungs are somewhat hyperaerated, however bilaterally. There is no pneumothorax or pleural effusion. There is no focal osseous or soft tissue abnormality. There are mild degenerative spinal changes. There are surgical clips throughout the epigastric region. XR/XR chest 2V IMPRESSION: No active pulmonary disease. Electronically signed by: Gallo Schuster MD 04/05/2025 09:56 AM EDT RP Dictated By: Gallo Schuster MD Signed By: <Electronically signed by Gallo Schuster MD in OV> 04/05/2556 DD/ TD/TT: 04/05/25 0942 Bag Adjuster: Procedure Note Donotuseinterpreter, Image - 04/05/2025 [place] [address] XRay Report Signed Patient: Aleksandar Gonzalez#: [id number] : 1965Acct:[id number] Age/Sex: 60 / FADM Date: 04/05/25 Loc: .ED Attending Dr: Ordering Physician: Alisha Saldivar PA-C Date of Service: 04/05/25 Procedure(s): XR chest 2V Accession Number(s): [id number] cc: Alisha Saldivar PA-C; MICHAEL YANEZ NP EXAMINATION: XR CHEST CLINICAL INFORMATION: right upper quadrant pain COMPARISON: 04/04/2025. TECHNIQUE: 2 views of the chest were obtained. FINDINGS: The cardiac, hilar, and mediastinal contours are normal. The lungs are somewhat hyperaerated, however bilaterally. There is no pneumothorax or pleural effusion. There is no focal osseous or soft tissue abnormality. There are mild degenerative spinal changes. There are surgical clips throughout the epigastric region. XR/XR chest 2V IMPRESSION: No active pulmonary disease. Electronically signed by: Gallo Schuster MD 04/05/2025 09:56 AM EDT RP Dictated By: Gallo Schuster MD Signed By: <Electronically signed by Gallo Schuster MD in OV> 04/05/2556 DD/ TD/TT: 04/05/25 09 Bag Adjuster: [facility] External Provider IMG XR PROCEDURES Final Result * Culture, Urine, Routine (04/05/2025 12:00 AM EDT) Only the most recent of2 resultswithin the time period is included. Urine Urine specimen obtained by clean catch procedure / Unknown 04/05/2025 04/05/2025 Comment:UACC Narrative [facility] - 04/06/2025 10:53 AM EDT Urine Culture No growth. Specimen Source: Urine clean catch Generic External Data Provider LAB MICROBIOLOGY - GENERAL ORDERABLES Final Result Performing Organization Address [facility] Co de Phone Number [facility] [address] [place] [phone] * Creatinine, Serum (04/04/2025 2:21 PM EDT) Creatinine, Serum 0.78 0.5 - 1.4 mg/dL [facility] Estimated Glomerular Filt Rate >60 [facility] Comment:Chronic Kidney Disea se: Estimated GFR < 60 mL/min/1.39u6Qswguk Kidney Disease: Estimated GFR < 15 mL/min/1.73m2 Blood Venous blood specimen / Unknown 04/04/2025 2:21 PM EDT 04/04/2025 2:21 PM EDT Jaleel Block MD LAB BLOOD ORDERABLES Final Resul t Performing Organization Address [facility] Co de Phone Number [facility] [address] [place] [phone] * BUN (Blood Urea Nitrogen) (04/04/2025 2:21 PM EDT) Urea Nitrogen (BUN) 11 9 - 16 mg/dL [facility] Blood Venous blood specimen / Unknown 04/04/2025 2:21 PM EDT 04/04/2025 2:21 PM EDT Jaleel Block MD LAB BLOOD ORDERABLES Final Resul t Performing Organization Address [facility] Co de Phone Number [facility] [address] [place] [address] [phone] * (ABNORMAL) Comprehensive Metabolic Panel, Fasting (03/10/2025 11:57 AM EDT) Sodium 139 135 - 145 mmol/L [facility] Potassium 4.0 3.3 - 5.1 mmol/L [facility] Chloride 107 96 - 108 mmol/L [facility] Carbon Dioxide 26 22 - 29 mmol/L [facility] Anion Gap 10(L) 12 - 20 [facility] Urea Nitrogen (BUN) 11 9 - 16 mg/dL [facility] Creatinine, Serum 0.77 0.5 - 1.4 mg/dL [facility] Creatinine Clr Calc Pharmacy 73.6 [facility] Comment:Provided height and weight: 167.64 cm,67.7 kg.eGFR (calculated from the MDRD study equation) and eCrCl(calculated from the Cockcroft-Gault equation) are based ondifferent parameters and may not yield comparable results.If eCrCl result is absurd, please check patient'sheight/weight. Estimated Glomerular Filt Rate >60 [facility] Comment:Chronic Kidney Disea se: Estimated GFR < 60 mL/min/1.11p3Lygrnc Kidney Disease: Estimated GFR < 15 mL/min/1.73m2 Glucose Fasting 95 60 - 99 mg/dL [facility] Calcium 8.9 8.4 - 10.2 mg/dL [facility] Bilirubin, Total 0.8 0.0 - 1.0 mg/dL [facility] Aspartate Amino Transferase 27 5 - 31 U/L [facility] Alanine Aminotransferase 29 0 - 31 U/L [facility] Total Protein 7.1 6.5 - 8.0 g/dL [facility] Albumin Level 4.2 3.5 - 5.0 g/dL [facility] Alkaline Phosphatase 100 39 - 117 U/L [facility] 03/10/2025 11:5 7 AM EDT 03/10/2025 12:00 PM EDT us Generic External Data Provider LAB BLOOD ORDERAB LES Final Result Performing Organization Address [facility] Co de Phone Number [facility] [address] [place] [phone] * Magnesium (03/10/2025 11:57 AM EDT) Magnesium 2.3 1.6 - 2.6 mg/dL [facility] 03/10/2025 11:5 7 AM EDT 03/10/2025 12:00 PM EDT Generic External Data Provider LAB BLOOD ORDERAB LES Final Result Performing Organization Address [facility] de Phone Number [facility] [address] [place] [phone] * XR Hip left with Pelvis 1 view (02/24/2025 12:58 PM EDT) Anatomical Region Laterality Modality Lower Extremities, Hip Bilateral Radiograp hic Imaging 02/24/2025 12:5 8 PM EDT Narrative 02/24/2025 12:59 PM EDT [address] [address] XRay Report Signed Patient: Laura Graham MR#: [id number] 27 : 1965 Acct:[id number] Age/Sex: 60 / F ADM Date: 02/24/25 Loc: HO.ED Attending Dr: Ordering Physician: Garth Pedersen Date of Service: 02/24/25 Procedure(s): XR hip LT w PEL1V Accession Number(s): [id number] cc: Garth Pedersen; MICHAEL YANEZ NP CLINICAL HISTORY: fall Exam: AP pelvis with AP and frog-leg lateral views of the left hip. Comparison: CT/RI/SR - CT ABDOMEN PELVIS WO IV CON - 12/31/24 09:53 EDT Findings: Bony alignment is anatomic. No acute fractures. Surgical clips are seen within the pelvis and lower abdomen. Continued findings of osteitis pubis. Unchanged bone island within the left iliac bone. IMPRESSION: No acute findings. This document has been electronically signed by: Hoang Rapp MD on 02/24/2025 12:58:18 Dictated By: Hoang Rapp MD Signed By: <Electronically signed by Hoang Rapp MD in OV> 02/24/25 1259 DD/ 125 TD/TT: 02/24/251257 Bag Adjuster: Procedure Note Donotuseinterpreter, Image - 02/24/[address] [address] XRay Report Signed Patient: Aleksandar Graham#: [id number] 27 : 1965Acct:[id number] Age/Sex: 60 / FADM Date: 02/24/25 Loc: .ED Attending Dr: Ordering Physician: Garth Pedersen Date of Service: 02/24/25 Procedure(s): XR hip LT w PEL1V Accession Number(s): [id number] cc: Garth Pedersen; MICHAEL YANEZ NP CLINICAL HISTORY: fall Exam: AP pelvis with AP and frog-leg lateral views of the left hip. Comparison: CT/RI/SR - CT ABDOMEN PELVIS WO IV CON - 12/31/24 09:53 EDT Findings: Bony alignment is anatomic. No acute fractures. Surgical clips are seen within the pelvis and lower abdomen. Continued findings of osteitis pubis. Unchanged bone island within the left iliac bone. IMPRESSION: No acute findings. This document has been electronically signed by: Hoang Rapp MD on 02/24/2025 12:58:18 Dictated By: Hoang Rapp MD Signed By: <Electronically signed by Hoang Rapp MD in OV> 02/24/25 125 DD/ 125 TD/TT: 02/24/251257 Bag Adjuster: [facility] External Provider IMG XR PROCEDURES Final Result * XR Shoulder 2+ Views Left (02/24/2025 12:58 PM EDT) Anatomical Region Laterality Modality Upper Extremities, Shoulder Left Radi ographic Imaging 02/24/2025 12:5 8 PM EDT Narrative 02/24/2025 12:59 PM EDT [address] [address] XRay Report Signed Patient: Laura Graham MR#: [id number] 27 : 1965 Acct:[id number] Age/Sex: 60 / F ADM Date: 02/24/25 Loc: HO.ED Attending Dr: Ordering Physician: Garth Pedersen Date of Service: 02/24/25 Procedure(s): XR shoulder LT min 2V Accession Number(s): [id number] cc: Garth Pedersen; MICHAEL YANEZ NP CLINICAL HISTORY: fall 3 view left shoulder Comparison: CR/SR - XR SHOULDER LT MIN 2V - 09/09/22 10:52 EST Findings: Bony alignment is anatomic without fracture, dislocation, or separation. Mild AC joint DJD. Glenohumeral joint is well-maintained. IMPRESSION: 1. No acute findings This document has been electronically signed by: Hoang Rapp MD on 02/24/2025 12:58:05 Dictated By: Hoang Rapp MD Signed By: <Electronically signed by Hoang Rapp MD in OV> 02/24/25 1259 DD/ 1258 TD/TT: 02/24/25 1258 Bag Adjuster: Procedure Note Donotuseinterpreter, Image - 02/24/[address] [address] XRay Report Signed Patient: Paz GrahamR#: [id number] 27 : 1965Acct:[id number] Age/Sex: 60 / FADM Date: 02/24/25 Loc: .ED Attending Dr: Ordering Physician: Garth Pedersen Date of Service: 02/24/25 Procedure(s): XR shoulder LT min 2V Accession Number(s): [id number] cc: Garth Pedersen; MICHAEL YANEZ NP CLINICAL HISTORY: fall 3 view left shoulder Comparison: CR/SR - XR SHOULDER LT MIN 2V - 09/09/22 10:52 EST Findings: Bony alignment is anatomic without fracture, dislocation, or separation. Mild AC joint DJD. Glenohumeral joint is well-maintained. IMPRESSION: 1. No acute findings This document has been electronically signed by: Hoang Rapp MD on 02/24/2025 12:58:05 Dictated By: Hoang Rapp MD Signed By: <Electronically signed by Hoang Rapp MD in OV> 02/24/25 1259 DD/ 1258 TD/TT: 02/24/25 1258 Bag Adjuster: [facility] External Provider IMG XR PROCEDURES Final Result * XR Knee 4+ Views Left (02/24/2025 12:55 PM EDT) Anatomical Region Laterality Modality Lower Extremities, Knee Left Radiogra phic Imaging 02/24/2025 12:5 5 PM EDT Narrative 02/24/2025 12:57 PM EDT [place] [address] XRay Report Signed Patient: Laura Graham MR#: [id number] 27 : 1965 Acct:[id number] Age/Sex: 60 / F ADM Date: 02/24/25 Loc: .ED Attending Dr: Ordering Physician: Garth Pedersen Date of Service: 02/24/25 Procedure(s): XR knee LT 4V Accession Number(s): [id number] cc: Garth Pedersen; MICHAEL YANEZ NP CLINICAL HISTORY: fall Exam: AP, lateral, and oblique views of the left knee. Comparison: None provided. Findings: Bony alignment is anatomic. No fracture or joint effusion. Joint spaces are well preserved. Impression: No fracture. This document has been electronically signed by: Hoang Rapp MD on 02/24/2025 12:55:48 Dictated By: Hoang Rapp MD Signed By: <Electronically signed by Hoang Rapp MD in OV> 02/24/25 1257 DD/ 1255 TD/TT: 02/24/25 1255 Bag Adjuster: Procedure Note Donotuseinterpreter, Image - 02/24/[address] [place] [address] XRay Report Signed Patient: Paz GrahamR#: [id number] 27 : 1965Acct:[id number] Age/Sex: 60 / FADM Date: 02/24/25 Loc: HO.ED Attending Dr: Ordering Physician: Garth Pedersen Date of Service: 02/24/25 Procedure(s): XR knee LT 4V Accession Number(s): [id number] cc: Garth Pedersen; MICHAEL YANEZ NP CLINICAL HISTORY: fall Exam: AP, lateral, and oblique views of the left knee. Comparison: None provided. Findings: Bony alignment is anatomic. No fracture or joint effusion. Joint spaces are well preserved. Impression: No fracture. This document has been electronically signed by: Hoang Rapp MD on 02/24/2025 12:55:48 Dictated By: Hoang Rapp MD Signed By: <Electronically signed by Hoang Rapp MD in OV> 02/24/25 1257 DD/ 1255 TD/TT: 02/24/25 125 Bag Adjuster: [facility] External Provider IMG XR PROCEDURES Final Result * BI Mammogram Screening Tomosynthesis Bilateral (02/05/2025 12:34 PM EDT) Anatomical Region Laterality Modality Breast Bilateral Mammography 02/05/2025 12:3 4 PM EDT Narrative 02/12/2025 2:54 PM EDT [facility] [address] [place] [address] Mammography Report Signed Patient: Laura Graham MR#: [id number] 27 : 1965 Acct:[id number] Age/Sex: 60 / F ADM Date: 02/05/25 Loc: HO.MAMMO Attending Dr: Alex Machuca MD Ordering Physician: Alex Machuca MD Results: 2Benign Findings Date of Service: 02/05/25 Follow Up: 1 Year From Orig inal Mammogram Procedure(s): MM tomosynthesis screening BI Accession Number(s): [id number] cc: MICHAEL YANEZ NP; Alex Machuca MD EXAMINATION: MM SCREENING DIGITAL BREAST TOMOSYNTHESIS, BILATERAL CLINICAL INFORMATION: Screening. Asymptomatic. COMPARISON: Mammography: Comparison is made with available priors TECHNIQUE: Digital breast mammography with tomosynthesis is performed in both the craniocaudal and mediolateral oblique views along with computer-aided detection (CAD). FINDINGS: There are scattered areas of fibroglandular density (ACR BI-RADS breast composition Category b). Left marker clip. There are no significant masses, abnormal calcifications, or other abnormalities. MM/MM tomosynthesis screening BI IMPRESSION: No mammographic evidence of malignancy. ASSESSMENT: BI-RADS BI-RADS 2 - Benign Findings RECOMMENDATION: Routine annual mammography screening. 1 year F/U This examination should not preclude the clinical evaluation of a suspicious palpable abnormality. This patient's information was entered into a reminder system with a target due date for their next mammogram. Electronically signed by: Kyleigh Buenrostro DO 02/12/2025 02:51 PM EDT Dictated By: Kyleigh Buenrostro DO Signed By: <Electronically signed by Kyleigh Buenrostro DO in OV> 02/12/25 1451 DD/ 1234 TD/TT: 02/05/25 1248 Bag Adjuster: Procedure Note Donotuseinterpreter, Image - 02/12/2025 [facility] [address] [place] [address] Mammography Report Signed Patient: Aleksandar Graham#: [id number] 27 : 1965Acct:[id number] Age/Sex: 60 / FADM Date: 02/05/25 Loc: HO.MAMMO Attending Dr: Alex Machuca MD Ordering Physician: Alex Machuca MDResults: 2Benign Findings Date of Service: 02/05/25Follow Up: 1 Year From Orig inal Mammogram Procedure(s): MM tomosynthesis screening BI Accession Number(s): [id number] cc: MICHAEL YANEZ BARREL WASHER MACHINE; Alex Machuca MD EXAMINATION: MM SCREENING DIGITAL BREAST TOMOSYNTHESIS, BILATERAL CLINICAL INFORMATION: Screening. Asymptomatic. COMPARISON: Mammography: Comparison is made with available priors TECHNIQUE: Digital breast mammography with tomosynthesis is performed in both the craniocaudal and mediolateral oblique views along with computer-aided detection (CAD). FINDINGS: There are scattered areas of fibroglandular density (ACR BI-RADS breast composition Category b). Left marker clip. There are no significant masses, abnormal calcifications, or other abnormalities. MM/MM tomosynthesis screening BI IMPRESSION: No mammographic evidence of malignancy. ASSESSMENT: BI-RADS BI-RADS 2 - Benign Findings RECOMMENDATION: Routine annual mammography screening. 1 year F/U This examination should not preclude the clinical evaluation of a suspicious palpable abnormality. This patient's information was entered into a reminder system with a target due date for their next mammogram. Electronically signed by: Kyleigh Buenrostro DO 02/12/2025 02:51 PM EDT Dictated By: Kyleigh Buenrostro DO Signed By: <Electronically signed by Kyleigh Buenrostro DO in OV> 02/12/25 1451 DD/ 1234 TD/TT: 02/05/25 1248 Bag Adjuster: [facility] External Provider IMG BI PROCEDURES Final Result * (ABNORMAL) Lipid Panel, Standard (08/25/2024 10:00 AM EST) Triglycerides 61 <150 mg/dL [facility] Comment:Desirable Triglyceri de: less than 150 mg/dLBorderline High Triglyceride 150-199 mg/dLHigh Triglyceride: 200-499 mg/dLVery High Triglyceride: greater than or equal to 5OO mg/dL Cholesterol 173 <200 mg/dL [facility] Comment:Desirable Cholestero l: less than 200 mg/dLBorderline High Cholesterol: 200-239 mg/dLHigh Cholesterol: greater than 239 mg/dL LDL Cholesterol Calculated 105(H) <100 mg/dL [facility] Comment:Desirable LDL: less than 100 mg/dLNear Optimal/Above Optimal LDL: 110- 129 mg/dLBorderline High LDL: 130-159 mg/dLHigh LDL: 160-189 mg/dLVery High LDL: greater than or equal to 190 mg/dL HDL Cholesterol 56 >40 mg/dL [facility] Comment:Desirable HDL: great er than 40 mg/dL Note: This HDL assay may give artificially low results in patients with liver disease. 08/25/2024 10:0 0 AM EST 08/25/2024 11:37 AM EST Michael Yanez ANP LAB BLOOD ORDERABLES Final Resul t Performing Organization Address [facility] Co de Phone Number [facility] [address] [place] [phone] * HIV-1/2 Antigen and Antibodies, Fourth Generation, with Reflexes (01/04/2024 9:49 AM EDT) HIV AB/AG Nonreactive Nonreactive [facility] Comment:HIV-1 p24 Ag and/or HIV-1/HIV-2 Ab not detected.A test result that is nonreactive does not exclude thepossibility of exposure to or infection with HIV-1 and/orHIV-2. Nonreactive results in this assay for individualswith prior exposure to HIV-1 and/or HIV-2 may be due toantigen and antibody levels that are below the limit ofdetection of this assay.The Image Insight HIV Ag/Ab Combo assay result andsupplemental assay results should be interpreted inconjunction with the patient's clinical presentation,history and other laboratory results. If the results areinconsistent with clinical evidence, additional testing issuggested to confirm the result. Blood Venous blood specimen / Unknown 01/04/2024 9:49 AM EDT 01/04/2024 11:50 AM EDT us Michael Yanez [facility] LAB BLOOD ORDERABLES Final Resul t Performing Organization Address City/[facility]/ZIP Co de Phone Number [facility] [address] [place] [phone] * Hepatitis C Ab (09/09/2022 10:23 AM EST) Hepatitis C Antibody Nonreactive Nonreactive [facility] Comment:Antibodies to HCV no t detected; does not exclude early acuteHCV infection. 09/09/2022 10:2 3 AM EST 09/09/2022 10:23 AM EST [facility] External Provider LAB BLO OD ORDERABLES Final Result [facility] [address] [place] [address] [phone] * Hm Colonoscopy (07/08/2021 12:15 PM EST) Colonoscopy Normal Normal Fidencio Vila MD HEALTH MAINTENANCE Edited Re sult - Final from Last 3 Months or Most Recently Relevant to Health Maintenance Insurance [facility] STAND ADULT [employer] Care Teams Unemployment Specialist Relationship Specialty Start Date End Date Michael Yanez ANP [address] [place] [phone] PCP - General Family Medicine 01/16/20 Abel Chavarria, ILENE [address] [place] [address] Registered Nurse Family Medicine 02/26/25 Margareth Chavarria 02/26/25
--- OUTSIDE RECORDS SUMMARY | 2025-05-01 15:41 | XMS_ITS | Encounter Summary ---
Author Organization [facility] Address [address] [place] [address] [address] [place] [address] Care Team Providers Care Pewter Finisher Name Role Phone Nupur Weir Primary Care Provider [phone] Abel Chavarria RN Unavailable [phone] Margareth Chavarria Unavailable Reason for Visit * Reason Onset Date Comments Med Refill 12/22/2024 Encounter Details Date Type Department Care Team ([facility] st Contact Info) Description 12/22/2024 Telephone [facility] MEDICINE [address] [place] [address] Nupur Weir ANP [address] [place] [address] Med Refill Social History Tobacco Use Types [...] t he electric, gas, oil or water [employer] threatened to shut off services in your [...] 50 MG tablet To be sent to: [facility] - [place], [place] - [address] [place] [address] documented in this encounter Plan of Treatment Upcoming Encounters Date Type Department Care Team ([facility] st Contact Info) Description 05/08/2025 9:45 AM EDT Office Visit [facility] MEDICINE [address] [place] [phone] 05/15/2025 9:15 AM EDT Office Visit [facility] MEDICINE [address] [place] [phone] Nupur Weir, BATOOL [address] [place] [address] 09/28/2025 9:30 AM EST Medication Management [facility] MEDICINE [address], [place] [phone] Fay Leigh, PharmD [address] [place] [address] documented as of this encounter Visit Diagnoses Not on filedocumented in this encounter Care Teams Pewter Finisher Relationship Specialty Start Date End Date Nupur Weir ANP [address], [place] [phone] PCP - General Family Medicine 01/16/20 Abel Chavarria RN [address] [place] [phone] Registered Nurse Family Medicine 02/26/25 Margareth Chavarria 02/26/25 documented as of this encounter
--- OUTSIDE RECORDS SUMMARY | 2025-05-01 15:41 | XMS_ITS | Encounter Summary ---
Author Organization [facility] Address [address] [place] [address] Street [address] [place] [address] Care Team Providers Care Medical Case Manager Name Role Phone Nupur Weir Primary Care Provider [phone] Abel Chavarria RN Unavailable [phone] Margareth Chavarria Unavailable Reason for Visit * Reason Comments Med Refill Encounter Details Date Type Department Care Team (Late st Contact Info) Description 12/21/2024 Refill [facility] MED[facility]INE [address] [place] [address] Nupur Weir ANP [address] [place] [address] Arthralgia, unspecified joint Social History Tobacco Use [...] t he electric, gas, oil or water [employer] threatened to shut off services in your [...] Description 05/08/2025 9:45 AM EDT Office Visit [address] [address] 05/15/2025 9:15 AM EDT Office Visit [address] [address] Nupur Weir ANP [address] [place] [address] 09/28/2025 9:30 AM EST Medication Management [address] [address] Fay Leigh, MayoD [address] [place] [phone] documented as of this encounter Visit Diagnoses Diagnosis Arthralgia, unspecified joint documented in this encounter Care Teams Medical Case Manager Relationship Specialty Start Date End Date Nupur Weir ANP [address] [place] [address] PCP - General Family Medicine 01/16/20 Abel Chavarria, ILENE [address] [place] [address] Registered Nurse Family Medicine 02/26/25 Margareth Chavarria 02/26/25 documented as of this encounter
--- OUTSIDE RECORDS SUMMARY | 2025-05-01 15:41 | XMS_ITS | Encounter Summary ---
Author Organization [employer] Address [address] 7t [place] [address] Care Team Providers Care Stave Saw Operator Name Role Phone Nupur Weir Primary Care Provider [phone] Abel Chavarria RN Unavailable [phone] Margareth Chavarria Unavailable Encounter Details Date Type Department Care Team ([facility] st Contact Info) Description 07/05/[address] [facility] ADULT DENTAL [address] [place] [address] Alonso-PradhanYarelis friedman, DDS [address] [place] [address] Social History Tobacco Use Types Packs/Day Years [...] Shameka Simons - 07/05/2024 10:56 AM EST [place] doctor flip Patient called she went her pharmacy and her medication was not there. Can we send her prescriptions to her pharmacy thank you . documented in this encounter Plan of Treatment Upcoming Encounters Date Type Department Care Team (Late st Contact Info) Description 05/08/2025 9:45 AM EDT Office Visit [facility] MEDICINE [address] [place] [address] 05/15/2025 9:15 AM EDT Office Visit [facility] MEDICINE [address] [place] [address] Nupur Weir, ANP [address] [place] [address] 09/28/2025 9:30 AM EST Medication Management [facility] MEDICINE [address] [place] [address] Fay Leigh, PharmD [address] [place] [phone] documented as of this encounter Visit Diagnoses Not on filedocumented in this encounter Care Teams Stave Saw Operator Relationship Specialty Start Date End Date Nupur Weir ANP 230 [place] [address] PCP - General Family Medicine 01/16/20 Abel Chavarria RN [address] [place] [address] Registered Nurse Family Medicine 02/26/25 Margareth Chavarria 02/26/25 documented as of this encounter
--- OUTSIDE RECORDS SUMMARY | 2025-05-01 15:42 | XMS_ITS | Encounter Summary ---
Author Organization [employer] [facility] Address [address] [place] [address] 7t [place] [address] Care Team Providers Care Aluminum Siding Applicator Name Role Phone Nupur Weir Primary Care Provider [phone] Abel Chavarria RN Unavailable [phone] Margareth Chavarria Unavailable Encounter Details Date Type Department Care Team (Latest Contact Info) Description 03/26/2022 Abstract [facility] CONVERSIONS Dental, Provider, DDS Social History [...] Description 05/08/2025 9:45 AM EDT Office Visit [facility] MEDICINE [address] [place] [address] 05/15/2025 9:15 AM EDT Office Visit [facility] MEDICINE [address] [place] [address] Nupur Weir ANP [address] [place] [address] 09/28/2025 9:30 AM EST Medication Management [facility] MEDICINE [address] [place] [address] Fay Leigh PharmD [address] [place] [address] documented as of this encounter Visit Diagnoses Not on filedocumented in this encounter Care Teams Aluminum Siding Applicator Relationship Specialty Start Date End Date Nupur Weir ANP [address] [place] [address] PCP - General Family Medicine 01/16/20 Abel Chavarria, ILENE [address] [place] [address] Registered Nurse Family Medicine 02/26/25 Margareth Chavarria 02/26/25 documented as of this encounter
--- OUTSIDE RECORDS SUMMARY | 2025-05-01 15:42 | XMS_ITS | Encounter Summary ---
Author Organization [employer] [facility] Address [address] [place] [address] 7t [place] [address] Care Team Providers Care Park Landscape Architect Name Role Phone Nupur Weir Primary Care Provider Abel Chavarria RN Unavailable [phone] Margareth Chavarria Unavailable Encounter Details Date Type Department Care Team (Late st Contact Info) Description 08/14/2022 Abstract [facility] ADULT DENTAL [address] [place] [address] Angel Lagos, CAPRI [address] [place] [address] Social History Tobacco Use Types Packs/Day Years [...] Description 05/08/2025 9:45 AM EDT Office Visit [facility] MEDICINE [address] [place] [address] 05/15/2025 9:15 AM EDT Office Visit [facility] MEDICINE [address] [place] [address] Nupur Weir ANP [address] [place] [address] 09/28/2025 9:30 AM EST Medication Management [facility] MEDICINE [address] [place] [address] Fay Leigh, MayoD 230 [place] [address] documented as of this encounter Visit Diagnoses Not on filedocumented in this encounter Care Teams Park Landscape Architect Relationship Specialty Start Date End Date Nupur Weir ANP [address] [place] [address] PCP - General Family Medicine 01/16/20 Abel Chavarria, ILENE [address] [place] [address] Registered Nurse Family Medicine 02/26/25 Margareth Chavarria 02/26/25 documented as of this encounter
--- OUTSIDE RECORDS SUMMARY | 2025-05-01 15:42 | XMS_ITS | Encounter Summary ---
Author Organization [employer] [facility] Address [address] [place] [address] 7t [place] [address] Care Team Providers Care Church Business Administrator Name Role Phone Nupur Weir Primary Care Provider [phone] Abel Chavarria RN Unavailable [phone] Margareth Chavarria Unavailable Encounter Details Date Type Department Care Team (Late st Contact Info) Description 07/30/2022 Abstract [facility] ADULT DENTAL [address] [place] [address] Dental, Provider, DDS Social History Tobacco Use [...] Description 05/08/2025 9:45 AM EDT Office Visit [facility] MEDICINE [address] [place] [address] 05/15/2025 9:15 AM EDT Office Visit [facility] MEDICINE [address] [place] [address] [phone] Nupur Weir ANP 230 [place] [address] 09/28/2025 9:30 AM EST Medication Management [facility] MEDICINE [address] [place] [address] Fay Leigh, MayoD 230 [place] [address] documented as of this encounter Procedures Procedure [...] on filedocumented in this encounter Care Teams Church Business Administrator Relationship Specialty Start Date End Date Nupur Weir ANP 230 [place] [address] PCP - General Family Medicine 01/16/20 Abel Chavarria, ILENE [address] [place] [address] Registered Nurse Family Medicine 02/26/25 Margareth Chavarria 02/26/25 documented as of this encounter
--- OUTSIDE RECORDS SUMMARY | 2025-05-01 15:42 | XMS_ITS | Encounter Summary ---
Author Organization [employer] Address [address] [place] [address] 7t [place] [address] Care Team Providers Care Piano Mechanic Name Role Phone Nupur Weir Primary Care Provider [phone] Abel Chavarria RN Unavailable [phone] Margareth Chavarria Unavailable Reason for Visit * Reason Onset Date Comments Med Refill 01/19/2025 Encounter Details Date Type Department Care Team ([facility] st Contact Info) Description 01/19/2025 Telephone [facility] MEDICINE [address] [place] [address] Nupur Weir ANP [address] [place] [address] Med Refill Social History Tobacco Use Types [...] t he electric, gas, oil or water Work [employer] threatened to shut off services in your [...] encounter Miscellaneous Notes * Telephone Encounter - Jeannette Amaral - 01/19/2025 11:19 AM EDT TC from pt requesting medication refill. Medications needing refill : traMADol (Ultram) 50 MG tablet To be sent to: [facility] pharmacy documented in this encounter Plan of Treatment Upcoming Encounters Date Type Department Care Team (Late st Contact Info) Description 05/08/2025 9:45 AM EDT Office Visit [facility] MEDICINE [address] [place] [phone] 05/15/2025 9:15 AM EDT Office Visit [facility] MEDICINE [address] [place] [address] Nupur Weir ANP [address] [place] [address] 09/28/2025 9:30 AM EST Medication Management [facility] MEDICINE [address] [place] [address] Fay Leigh, PharmD [address] [place] [address] documented as of this encounter Visit Diagnoses Not on filedocumented in this encounter Care Teams Piano Mechanic Relationship Specialty Start Date End Date Nupur Weir ANP [address] [place] [address] PCP - General Family Medicine 01/16/20 Abel Chavarria, ILENE [address] [place] [address] Registered Nurse Family Medicine 02/26/25 Margareth Chavarria 02/26/25 documented as of this encounter
== END 2025-05-01 14:30 | disposition home or self-care (01) ==
LOC: HO.CT 14:29
PROVIDERS: PCP Nurse Practitioner Primary Care; Visit Provider Emergency Medicine
DX: R07.9 Chest pain, unspecified (principal); R04.2 Hemoptysis
CPT/HCPCS: 71275; Q9967

== ENCOUNTER → 2025-05-01 14:32 | Outpatient (BNV) | payer MEDICAID, SELFPAY | PROVIDERS: PCP Nurse Practitioner Primary Care; Visit Provider Radiology Diagnostic Radiology | DX: R07.9 Chest pain, unspecified (principal); R04.2 Hemoptysis | CPT/HCPCS: 71275 ==

== ENCOUNTER 2025-05-08 22:50 | Emergency (ER) | payer MEDICAID, SELFPAY ==
--- OUTSIDE RECORDS SUMMARY | 2023-12-29 09:10 | XMS_ITS ---
Author Organization [facility] Address [address] [place] [address] [place] [phone] Care Team Providers Care Mineral Surveyor Name Role Phone MICHAEL YANEZ N.P. Primary Care Provider Fidencio Langley Jr [phone] REASON FOR VISIT rectal bleeding Encounters Encounter Location Date Provider Diagnosis [facility] [place] [address] [place] [id number] 12/29/2023 Fidencio Vila Jr Rectal bleeding K62.5 Assessments Encounter Date Diagnosis (ICD Code) Assessment Notes Treatment Notes Treatment Clinical Notes Section Notes 12/29/2023 Rectal bleeding (ICD-10 - K62.5) Plan Of Treatment Next Appt Details Provider Name:Fidencio haider Jr, 07/18/2025 11:20:00 AM, [address] [place] [address], Suite [facility], [place], [address], Progress Notes * TIFFANIE TYLERMACB: 6 (60 yo F)Acc No.[id number]:12/29/2023 COLON WITH MAC Patient: TAY CAPELLAN Provider: Remi Vila MD :1965 A ge:58 Y S ex:Female Date:12/29/2023 Address:[address] [place] Pcp:MICHAEL YANEZ N.P. Subjective: * Chief Complaints: [...] 12/29/2023 Generated for Viviane negrete/Shakila/Jadenitting on: 0 05/09/2025 12:26 AM EDT
--- OUTSIDE RECORDS SUMMARY | 2025-01-03 05:20 | XMS_ITS ---
Author Organization [facility] Address 10 [facility] [address] [place] [address] Care Team Providers Care Clarity Developer Name Role Phone MICHAEL YANEZ N.P. Primary Care Provider Fidencio Langley Jr [phone] REASON FOR VISIT dysphagia Encounters Encounter Location Date Provider Diagnosis [facility] [address] [place] [phone] 01/03/2025 Fidencio Vila Jr Plan Of Treatment Next Appt Details Provider Name:Fidencio haider Jr, 07/18/2025 11:20:00 AM, [address] [place] [address], [address], [place], [address], Progress Notes * TIFFANIE TYLERADOB: 6 (60 yo F)Acc No.[id number]:01/03/2025 Progress Notes Patient: TAY CAPELLAN Provider: Remi Vila MD :1965 A ge:59 Y S ex:Female Date:01/03/2025 Address:[address] [place] Pcp:MICHAEL YANEZ N.P. Subjective: * Chief Complaints: [...] 01/03/2025 Generated for Viviane negrete/Shakila/Constantino on: 0 05/09/2025 12:25 AM EDT
--- OUTSIDE RECORDS SUMMARY | 2025-05-08 09:45 | XMS_ITS | Encounter Summary ---
Author Organization [employer] Address [address] [place] [address] Care Team Providers Care Manager Hair Name Role Phone Nupur Weir Primary Care Provider [phone] Abel Chavarria RN Unavailable [phone] Margareth Chavarria Unavailable Encounter Details Date Type Department Care Team (Late st Contact Info) Description 05/08/2025 9:45 AM EDT Office Visit [facility] MEDICINE [address] [place] [address] Anushka Gunter, PHOTOGRAPHIC TECHNICIAN [address] [place] [address] Lumbar spondylosis (Primary Dx); Long-term current use [...] this encounter Progress Notes * Anushka Gunter, PHOTOGRAPHIC TECHNICIAN - 05/08/2025 9:45 AM EDT Subjective: Laura [...] Q8H PRN Indication: arthralgia, lumbar spondylosis Last FUNCTIONAL SKILLS TUTOR Agreement: 12/01/24 Express Manager tier 2 q 3 mo Current Assessment [...] Ramsey RN - 05/08/2025 9:45 AM EDT .FUNCTIONAL SKILLS TUTOR inspector eyeglass: PDMP reviewed today. Last fill date: 04/23/25 [...] Description 05/15/2025 9:15 AM EDT Office Visit [facility] MEDICINE [address] [place] [address] Nupur Weir ANP [address] [place] [address] 06/12/2025 9:45 AM EDT Office Visit [address] [address] 09/28/2025 9:30 AM EST Medication Management [facility] MEDICINE [address] [place] [address] PaulsFay Hallman, PharmD [address] [place] [address] documented as of this encounter Procedures Procedure [...] - 05/08/2025 10:33 AM EDT .UTOX cup Lot#[id number] Exp. 06/05/26 Internal Pass Control us Nupru RENAE POINT OF CARE TEST ENTER/EDIT OR [...] documented as of this encounter Care Teams Manager Hair Relationship Specialty Start Date End Date Nupur Weir ANP [address] [place] [address] PCP - General Family Medicine 01/16/20 Abel Chavarria, RN [address] [place] [address] Registered Nurse Family Medicine 02/26/25 Margareth Chavarria 02/26/25 documented as of this encounter
[2025-05-08 22:54] VITALS: BP 120/61; PULSE 82; RESP 16; TEMP 36.6; O2SAT 100; BMI 24.4
--- NOTE | 2025-05-09 00:11 | ED.ANIMALBIT ---
HPI - Animal Bite General Chief Complaint: Animal Bite Stated Complaint: cat bit her on the rt leg/swollen Time Seen by Provider: 05/09/25 00:09 History of Present Illness ED Provider: Kwan Roldan MD HPI narrative: This is a 60-year-old female said she was bitten yesterday on the right calf by a cat she has been watching in her home for 2 weeks. The cat is currently feeding 6 kittens and the patient has been watching her daily for the past 2 weeks the CAT appears healthy and has not left the home for the past 2 weeks. Bite occurred after 1 of the patient's own cats came by and she was trying to protect them. Over the past 24 hours redness and warmth has developed in the area no rigors night sweats or streaking up the leg Animal: cat Related Data Home Medications ?Medication ?Instructions ?Recorded ?Confirmed diltiazem HCl 180 mg 180 mg PO DAILY 11/24/21 04/11/25 capsule,extended release 24 hr pantoprazole 40 mg tablet,delayed 40 mg PO DAILY 11/24/21 04/11/25 release losartan 50 mg tablet 50 mg PO DAILY blood pressure 11/24/22 04/11/25 levothyroxine 25 mcg tablet 25 mcg PO DAILY 01/08/23 04/11/25 riboflavin (vitamin B2) 100 mg 200 mg PO BID 01/08/23 04/11/25 tablet (Vitamin B-2) topiramate 50 mg tablet 100 mg PO BID 01/08/23 04/11/25 Previous Rx's ?Medication ?Instructions ?Recorded gabapentin 100 mg capsule 100 mg PO TID #270 caps 12/06/23 estradiol 0.01% (0.1 mg/gram) See Rx Instructions .Route 3XW 30 03/22/25 vaginal cream days #42.5 grams pyridoxine (vitamin B6) 100 mg 100 mg PO DAILY 90 days #90 tabs 03/22/25 tablet fosfomycin tromethamine 3 gram 3 g PO Q3D 9 days #3 ea 03/26/25 oral packet lidocaine 5 % topical patch 1 patch topical DAILY pain #30 ea 04/05/25 nitrofurantoin 100 mg PO Q12H 5 days #10 caps 04/05/25 monohydrate/macrocrystals 100 mg capsule (Macrobid) solifenacin 5 mg tablet (Vesicare) 5 mg PO DAILY 30 days #30 tabs 04/16/25 amoxicillin 875 mg-potassium 1 tab PO BID 7 days #14 tabs 05/09/25 clavulanate 125 mg tablet Allergies Allergy/AdvReac Type Severity Reaction Status Date / Time ondansetron (From ZOFRAN) Allergy Unknown per H&P Verified 05/08/25 23:00 sumatriptan (From IMITREX) Allergy Unknown RASH FROM Verified 05/08/25 23:00 TABLET NOT INJECTION promethazine (From PHENERGAN) AdvReac Severe DYSTONIA Verified 05/08/25 23:00 [facility] Past Medical History Medical History Well woman exam Epidermal cyst Migraine HTN (hypertension) IBS (irritable bowel syndrome) GERD (gastroesophageal reflux disease) Chronic interstitial cystitis Sleep apnea Asthma Anemia Hypercholesteremia Depression Anxiety Sacrococcygeal pilonidal cyst Recurrent UTI Goiter Flank pain Dysuria Hypercalciuria Swelling of joint, ankle, right Swelling of right foot Vitamin D deficiency Hypothyroidism Right patella fracture History of secondary hyperparathyroidism Abnormal mammogram Surgical History History of removal of cyst (~05/12/24) History of bladder surgery H/O bilateral salpingo-oophorectomy S/P gastric bypass H/O left breast biopsy H/O: hysterectomy History of bilateral tubal ligation History of appendectomy Family History Family History Mother Uterine cancer Father No problems noted. 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 No apparent distress. Alert. HEAD/NECK: No visual trauma. EYES: Normal to inspection. No conjunctival erythema. No discharge. ENMT: Hearing grossly normal. External nose normal. RESPIRATORY: Respiratory effort normal. CARDIOVASCULAR: Additional details (Grossly well perfused). SKIN: 3 distinct puncture wounds from bite wound in the right medial distal calf with erythema surrounding the area up to about the mid calf and ankle the area of erythema was outlined with my pen NEUROLOGICAL: Alert. Moving all extremities x4. Additional details (No gross motor deficits. Normal tone. ). PSYCHIATRIC: Alert. Appearance appropriate for situation. Vital Signs: Vital Signs - 24 hr 05/08/25 22:54 Temperature 97.9 F Pulse Rate 82 Respiratory Rate 16 Blood Pressure 120/61 Pulse Oximetry 100 Oxygen Delivery Method Room Air BMI result Body Mass Index 24.4 Medications Administered Discontinued Medications Generic Name Dose Route Start Last Admin Trade Name Gilq PRN Reason Stop Dose Admin Acetaminophen 975 mg 05/09/25 00:59 05/09/25 01:03 Acetaminophen 325 Mg Tablet PO 05/09/25 01:00 975 mg ONCE ONE Administration Amoxicillin/Clavulanate Potassium 875 mg 05/09/25 00:10 05/09/25 00:58 Amoxicillin/Potassium Clav 875 Mg Tablet PO 05/09/25 00:11 875 mg ONCE ONE Administration Ibuprofen 600 mg 05/09/25 00:59 05/09/25 01:02 Ibuprofen 600 Mg Tablet PO 05/09/25 01:00 600 mg ONCE ONE Administration Medical Decision Making Medical Decision Making MDM Narrative: Medical Decision Makin-year-old female bitten by a cat that she is currently baby sitting. The cat has been within her home for the past 14 days with no chance that she has left. This is reassuring that the patient has been observing the CAT without any signs symptoms to suggest that it was rabid. She and I discussed low likelihood of rabies exposure shared decision-making risks benefit discussion of rabies vaccination For this is likely an infected cat bite wound we will start Augmentin erythema was marked gave her strict return precautions. No apparent immunocompromise based on history Preliminary Favored Differential Diagnosis: Cat bite, cellulitis, lymphangitis among additional considered etiologies Testing Interpreted Independently: ?See below for details Radiology or Lab testing Results Reviewed: ?See below for details Consults: ?See below for details Independent Historians/External Chart Reviews: ?See below for details Social Determinants of Health Impacting MDM/Planning: ?See below for details Discharge Plan Discharge Clinical Impression: Cat bite Patient Disposition: Home, Self-Care Instructions: Animal Bite (ED) Additional Instructions: As we discussed you have an infected cat bite wound. We had low suspicion that you had rabies exposure given that the cat has been in your home for the past at least 14 days and has not left and exhibits no signs of rabies or illness. We are prescribing antibiotics gait your 1st dose in the emergency department continue and do not miss any doses we recommend taking probiotics which are [id number] or 1 Austrian yogurt per day Prescriptions: New amoxicillin-pot clavulanate 875-125 mg tablet 1 tab PO BID 7 Days Qty: 14 0RF No Action gabapentin 100 mg capsule 100 mg PO TID Qty: 270 3RF pyridoxine (vitamin B6) 100 mg tablet 100 mg PO DAILY 90 Days Qty: 90 0RF fosfomycin tromethamine 3 gram packet 3 g PO Q3D 9 Days Qty: 3 0RF Rx Instructions: One dose (one packet) every 3 days solifenacin [Vesicare] 5 mg tablet 5 mg PO DAILY 30 Days Qty: 30 1RF lidocaine 5 % adhesive patch,medicated 1 patch topical DAILY Qty: 30 0RF Rx Instructions: leave on most painful area for up to 12 hrs nitrofurantoin monohyd/m-cryst [Macrobid] 100 mg capsule 100 mg PO Q12H 5 Days Qty: 10 0RF Rx Instructions: must administer with a meal/food pantoprazole 40 mg tablet,delayed release (DR/EC) 40 mg PO DAILY diltiazem HCl 180 mg capsule,extended release 24hr 180 mg PO DAILY losartan 50 mg tablet 50 mg PO DAILY levothyroxine 25 mcg tablet 25 mcg PO DAILY topiramate 50 mg tablet 100 mg PO BID riboflavin (vitamin B2) [Vitamin B-2] 100 mg tablet 200 mg PO BID estradiol 0.01 % (0.1 mg/gram) cream See Rx Instructions .Route 3XW 30 Days Qty: 42.5 2RF Rx Instructions: Apply a pea-sized amount to urethra daily x1 month and then 3 times per week thereafter Print Language: Austrian
--- OUTSIDE RECORDS SUMMARY | 2025-05-09 00:24 | XMS_ITS | Encounter Summary ---
Author Organization [employer] Address [address] [place] [address] Care Team Providers Care Loft Worker Apprentice Name Role Phone Nupur Weir Primary Care Provider [phone] Abel Chavarria RN Unavailable [phone] Margareth Chavarria Unavailable Reason for Visit * Reason Comments Med Refill Encounter Details Date Type Department Care Team (Late st Contact Info) Description 11/07/2024 Refill [facility] MED & PEDS [address] [place] [address] Nupur Weir ANP [address] [place] [address] Primary hypertension; Iron deficiency anemia, unspecified iron [...] Description 05/15/2025 9:15 AM EDT Office Visit [address] [address] Nupur Weir, ANP [address] [place] [address] 06/12/2025 9:45 AM EDT Office Visit [address] [address] 09/28/2025 9:30 AM EST Medication Management [address] [address] Fay Leigh, Elba [address] [place] [address] documented as of this encounter Visit Diagnoses Diagnosis Primary hypertension Unspecified essential hypertension Iron deficiency anemia, unspecified iron deficiency anemia type documented in this encounter Care Teams Loft Worker Apprentice Relationship Specialty Start Date End Date Nupur Weir ANP [address] [place] [address] PCP - General Family Medicine 01/16/20 Abel Chavarria RN [address] [place] [address] Registered Nurse Family Medicine 02/26/25 Margareth Chavarria 02/26/25 documented as of this encounter
--- OUTSIDE RECORDS SUMMARY | 2025-05-09 00:25 | XMS_ITS | Encounter Summary ---
Author Organization [employer] Address [address] 7[address] [place] [address] Care Team Providers Care Textile Machine Operator Name Role Phone Nupur Weir Primary Care Provider [phone] Abel Chavarria RN Unavailable [phone] Margareth Chavarria Unavailable Reason for Visit * Reason Comments Med Refill Encounter Details Date Type Department Care Team (Late st Contact Info) Description 02/11/2024 Refill [facility] MEDICINE [address] [place] [address] Marcella Colindres MD [address] [place] [address] Gastritis medicamentosa Social History Tobacco Use Types [...] 05/15/2025 9:15 AM EDT Office Visit [address] [address] Nupur Weir ANP [address] [place] [address] 06/12/2025 9:45 AM EDT Office Visit [address] [address] 09/28/2025 9:30 AM EST Medication Management [address] [address] Fay Leigh PharmD [address] [place] [address] documented as of this encounter Visit Diagnoses Diagnosis Gastritis medicamentosa Other specified gastritis without mention of hemorrhage documented in this encounter Care Teams Textile Machine Operator Relationship Specialty Start Date End Date Nupur Weir ANP [address] [place] [address] PCP - General Family Medicine 01/16/20 Abel Chavarria, ILENE [address] [place] [address] Registered Nurse Family Medicine 02/26/25 Margareth Chavarria 02/26/25 documented as of this encounter
--- OUTSIDE RECORDS SUMMARY | 2025-05-09 00:25 | XMS_ITS | Encounter Summary ---
Author Organization [employer] Address [address] [place] [address] Street 7t [place] [address] Care Team Providers Care Community Planning Technician Name Role Phone Nupur Weir Primary Care Provider [phone] Abel Chavarria RN Unavailable [phone] Margareth Chavarria Unavailable Reason for Visit * Reason Onset Date Comments Appointment Request 11/30/2024 Encounter Details Date Type Department Care Team ([facility] st Contact Info) Description 11/30/2024 Telephone [facility] MEDICINE [address] [place] [address] Nupur Weir ANP [address] [place] [address] Appointment Request Social History Tobacco Use Types [...] t he electric, gas, oil or water [employer] threatened to shut off services in your [...] 0 12/01/2024 11:08 AM EDT Kassy Ramsey, ILEEN ROSALBA-7 Total Score 6 12/01/2024 11:08 AM EDT Kassy Ramsey, ILENE documented as of this encounter Miscellaneous Notes * Telephone Encounter - Chanel Whyte - 11/30/2024 11:07 AM EDT Tc from pt requesting to r/s FINANCE INTERN appt. States has another appt around the same time at sleep medicine and pt informs takes bus and believes will not be able to make it on time. Would like to r/s for Wednesday. documented in this encounter Plan of Treatment Upcoming Encounters Date Type Department Care Team (Late st Contact Info) Description 05/15/2025 9:15 AM EDT Office Visit [address] [address] Nupur Weir ANP [address] [place] [address] 06/12/2025 9:45 AM EDT Office Visit [address] [address] 09/28/2025 9:30 AM EST Medication Management [address] [address] Fay Leigh, PharmD [address] [place] [address] documented as of this encounter Visit Diagnoses Not on filedocumented in this encounter Care Teams Community Planning Technician Relationship Specialty Start Date End Date Nupur Weir ANP [address] [place] [address] PCP - General Family Medicine 01/16/20 Abel Chavarria, ILENE [address] [place] [address] Registered Nurse Family Medicine 02/26/25 Margareth Chavarria 02/26/25 documented as of this encounter
--- OUTSIDE RECORDS SUMMARY | 2025-05-09 00:25 | XMS_ITS | Encounter Summary ---
Author Organization [employer] Address [address] [place] [address] Street 7t [place] [address] Care Team Providers Care Cras Name Role Phone Nupur Weir Primary Care Provider [phone] Abel Chavarria RN Unavailable [phone] Margareth Chavarria Unavailable Reason for Visit * Reason Onset Date Comments rs no show appt 11/30/2024 Encounter Details Date Type Department Care Team (Late st Contact Info) Description 11/30/2024 Telephone [facility] ADULT DENTAL [address] [place] [address] Taty, Laura [address] [place] [address] rs no show appt Social History Tobacco [...] the past 12 months, has t he [employer], gas, oil or water company threatened to [...] diff erent things 0 12/01/2024 11:08 AM aKssy Lay RN Trouble relaxing 1 12/01/2024 11:08 [...] Description 05/15/2025 9:15 AM EDT Office Visit [address] [address] Nupur Weir ANP [address] [place] [address] 06/12/2025 9:45 AM EDT Office Visit [address] [address] 09/28/2025 9:30 AM EST Medication Management [address] [address] Fay Leigh, PharmD [address] [place] [address] documented as of this encounter Visit Diagnoses Not on filedocumented in this encounter Care Teams Cras Relationship Specialty Start Date End Date Nupur Weir ANP [address] [place] [address] PCP - General Family Medicine 01/16/20 Abel Chavarria, ILENE [address] [place] [address] Registered Nurse Family Medicine 02/26/25 Margareth Chavarria 02/26/25 documented as of this encounter
--- OUTSIDE RECORDS SUMMARY | 2025-05-09 00:25 | XMS_ITS | Encounter Summary ---
Author Organization [employer] [facility] Address [address] [place] [address] 7t [place] [address] Care Team Providers Care Artist And Repertoire Manager Name Role Phone Nupur Weir Primary Care Provider [phone] Abel Chavarria RN Unavailable [phone] Margareth Chavarria Unavailable Reason for Visit * Reason Comments Med Refill Encounter Details Date Type Department Care Team (Late st Contact Info) Description 01/09/2023 Refill [facility] MEDICINE [address] [place] [address] Nupur Weir ANP [address] [place] [address] Arthralgia, unspecified joint; Other specified hypothyroidism Social [...] Description 05/15/2025 9:15 AM EDT Office Visit [address] [address] Nupur Weir ANP [address] [place] [address] 06/12/2025 9:45 AM EDT Office Visit [address] [address] 09/28/2025 9:30 AM EST Medication Management [address] [address] Fay Leigh, PharmD [address] [place] [address] documented as of this encounter Visit Diagnoses Diagnosis Arthralgia, unspecified joint Other specified hypothyroidism documented in this encounter Care Teams Artist And Repertoire Manager Relationship Specialty Start Date End Date Nupur Weir ANP [address] [place] [address] PCP - General Family Medicine 01/16/20 Abel Chavarria, RN [address] [place] [address] Registered Nurse Family Medicine 02/26/25 Margareth Chavarria 02/26/25 documented as of this encounter
--- OUTSIDE RECORDS SUMMARY | 2025-05-09 00:26 | XMS_ITS | Encounter Summary ---
Author Organization [employer] [facility] Address [address] [place] [address] 7t [place] [address] Care Team Providers Care Loft Worker Name Role Phone Nupur Weir Primary Care Provider Abel Chavarria RN Unavailable [phone] Margareth Chavarria Unavailable Encounter Details Date Type Department Care Team (Late st Contact Info) Description 08/14/2022 Abstract [facility] ADULT DENTAL [address] [place] [address] Angel Lagos, CAPRI [address] [place] [address] Social History Tobacco Use Types Packs/Day Years [...] Description 05/15/2025 9:15 AM EDT Office Visit [facility] MEDICINE [address] [place] [address] Nupur Weir ANP [address] [place] [address] 06/12/2025 9:45 AM EDT Office Visit [facility] MEDICINE [address] [place] [address] 09/28/2025 9:30 AM EST Medication Management [facility] MEDICINE [address] [place] [address] Fay Leigh, MayoD [address] [place] [address] documented as of this encounter Visit Diagnoses Not on filedocumented in this encounter Care Teams Loft Worker Relationship Specialty Start Date End Date Nupur Weir ANP [address] [place] [address] PCP - General Family Medicine 01/16/20 Abel Chavarria RN [address] [place] [address] Registered Nurse Family Medicine 02/26/25 Margareth Chavarria 02/26/25 documented as of this encounter
--- OUTSIDE RECORDS SUMMARY | 2025-05-09 00:26 | XMS_ITS | Encounter Summary ---
Author Organization [employer] Address [address] 7t [place] [address] Care Team Providers Care Assistant Commissioner Name Role Phone Nupur Weir Primary Care Provider [phone] Abel Chavarria RN Unavailable Margareth Chavarria Unavailable Reason for Visit * Reason Onset Date Comments Results 05/06/2025 Encounter Details Date Type Department Care Team (Late st Contact Info) Description 05/06/2025 Results Follow-Up [facility] [address] [place] [address] Jaleel Block MD [address] [place] [address] CTA Chest PE Protocal Social History Tobacco Use Types Packs/Day Years [...] encounter Miscellaneous Notes * Telephone Encounter - Katherine Moe RN - 05/07/2025 8:29 AM EDT Normal imagining letter generated and mailed to address on file documented in this encounter Plan of Treatment Upcoming Encounters Date Type Department Care Team (Late st Contact Info) Description 05/15/2025 9:15 AM EDT Office Visit [facility] MED[facility]INE [address] [place] [address] Nupur Weir ANP [address] [place] [address] 06/12/2025 9:45 AM EDT Office Visit [facility] [address] [place] [address] 09/28/2025 9:30 AM EST Medication Management [facility] MED[facility]INE [address] [place] [address] Fay Leigh, Elba [address] [place] [address] documented as of this encounter Visit Diagnoses Not on filedocumented in this encounter Additional Health Concerns Assessment Noted Time PHQ-9 Depression Total Score: 17 025 10:08 AM EDT documented as of this encounter Care Teams Assistant Commissioner Relationship Specialty Start Date End Date Nupur Weir ANP 230 [place] [address] PCP - General Family Medicine 01/16/20 Abel Chavarria, RN [address] [place] [address] Registered Nurse Family Medicine 02/26/25 Margareth Chavarria 02/26/25 documented as of this encounter
--- OUTSIDE RECORDS SUMMARY | 2025-05-09 00:26 | XMS_ITS | Encounter Summary ---
Author Organization [employer] Address [address] 7t [place] [address] Care Team Providers Care Scrap Preparer Name Role Phone Nupur Weir Primary Care Provider [phone] Abel Chavarria RN Unavailable [phone] Margareth Chavarria Unavailable Reason for Visit * Reason Comments Med Refill Encounter Details Date Type Department Care Team ([facility] st Contact Info) Description 06/19/2024 Refill [facility] MEDICINE [address] [place] [address] Nupur Weir ANP [address] [place] [address] Other specified hypothyroidism Social History Tobacco Use [...] Description 05/15/2025 9:15 AM EDT Office Visit [address] [address] Nupur Weir ANP [address] [place] [address] 06/12/2025 9:45 AM EDT Office Visit [address] [address] 09/28/2025 9:30 AM EST Medication Management [address] [address] Fay Leigh PharmD [address] [place] [address] documented as of this encounter Visit Diagnoses Diagnosis Other specified hypothyroidism documented in this encounter Care Teams Scrap Preparer Relationship Specialty Start Date End Date Nupur Weir ANP [address] [place] [address] PCP - General Family Medicine 01/16/20 Abel Chavarria, ILENE [address] [place] [address] Registered Nurse Family Medicine 02/26/25 Margareth Chavarria 02/26/25 documented as of this encounter
--- OUTSIDE RECORDS SUMMARY | 2025-05-09 00:26 | XMS_ITS | Encounter Summary ---
Author Organization [employer] [facility] Address [address] [place] [address] 7t [place] [address] Care Team Providers Care Trim Carpenter Name Role Phone Nupur Weir Primary Care Provider [phone] Abel Chavarria RN Unavailable [phone] Margareth Chavarria Unavailable Encounter Details Date Type Department Care Team (Latest Contact Info) Description 03/26/2022 Abstract [facility] CONVERSIONS Dental, Provider, DDS Social History Tobacco [...] Description 05/15/2025 9:15 AM EDT Office Visit [facility] MEDICINE [address] [place] [address] Nupur Weir ANP [address] [place] [address] 06/12/2025 9:45 AM EDT Office Visit [facility] MEDICINE [address] [place] [address] 09/28/2025 9:30 AM EST Medication Management [facility] MEDICINE [address] [place] [address] Fay Leigh PharmD [address] [place] [address] documented as of this encounter Visit Diagnoses Not on filedocumented in this encounter Care Teams Trim Carpenter Relationship Specialty Start Date End Date Nupur Weir ANP [address] [place] [address] PCP - General Family Medicine 01/16/20 Abel Chavarria, ILENE [address] [place] [address] Registered Nurse Family Medicine 02/26/25 Margareth Chavarria 02/26/25 documented as of this encounter
--- OUTSIDE RECORDS SUMMARY | 2025-05-09 00:26 | XMS_ITS | Encounter Summary ---
Author Organization [employer] Address [address] 7t [place] [address] Care Team Providers Care Shredded Filler Cigar Maker Machine Name Role Phone Nupur Weir Primary Care Provider [phone] Abel Chavarria RN Unavailable [phone] Margareth Chavarria Unavailable Reason for Visit * Reason Comments Med Refill Encounter Details Date Type Department Care Team (Late st Contact Info) Description 11/11/2023 Refill [facility] 230 [place] [address] Nupur Weir ANP 230 [place] [address] Social History Tobacco Use Types Packs/Day Years [...] Description 05/15/2025 9:15 AM EDT Office Visit [address] [address] Nupur Weir ANP [address] [place] [address] 06/12/2025 9:45 AM EDT Office Visit [address] [address] 09/28/2025 9:30 AM EST Medication Management [address] [address] Fay Leigh, PharmD [address] [place] [address] documented as of this encounter Visit Diagnoses Not on filedocumented in this encounter Care Teams Shredded Filler Cigar Maker Machine Relationship Specialty Start Date End Date Nupur Weir ANP [address] [place] [address] PCP - General Family Medicine 01/16/20 Abel Chavarria, ILENE [address] [place] [address] Registered Nurse Family Medicine 02/26/25 Margareth Chavarria 02/26/25 documented as of this encounter
--- OUTSIDE RECORDS SUMMARY | 2025-05-09 00:26 | XMS_ITS | Encounter Summary ---
Author Organization [employer] Address [address] [place] [address] 7t [place] [address] Care Team Providers Care Mounted Police Officer Name Role Phone Nupur Weir Primary Care Provider [phone] Abel Chavarria RN Unavailable [phone] Margareth Chavarria Unavailable Reason for Visit * Reason Onset Date Comments Med Refill 10/01/2023 Encounter Details Date Type Department Care Team ([facility] st Contact Info) Description 10/01/2023 Telephone [facility] 230 [place] [address] Nupur Weir ANP 230 [place] [address] Med Refill Social History Tobacco Use Types [...] Base) MCG/ACT inhaler To be sent to: [id number] [place], [place] - [address] [facility] documented in this encounter Plan of Treatment Upcoming Encounters Date Type Department Care Team (Late st Contact Info) Description 05/15/2025 9:15 AM EDT Office Visit [facility] [address] [place] [address] Nupur Weir, ANP 230 [place] [address] 06/12/2025 9:45 AM EDT Office Visit [facility] [address] [place] [address] 09/28/2025 9:30 AM EST Medication Management [facility] [address] [place] [address] Fay Leigh, PharmD 230 [place] [address] documented as of this encounter Visit Diagnoses Not on filedocumented in this encounter Care Teams Mounted Police Officer Relationship Specialty Start Date End Date Nupur Weir ANP 230 [place] [address] PCP - General Family Medicine 01/16/20 Abel Chavarria RN 505 [place] [address] Registered Nurse Family Medicine 02/26/25 Margareth Chavarria 02/26/25 documented as of this encounter
--- OUTSIDE RECORDS SUMMARY | 2025-05-09 00:26 | XMS_ITS | Encounter Summary ---
Author Organization [employer] Address [address] [place] [address] Street 7t [place] [address] Care Team Providers Care Burlesque Dancer Name Role Phone Nupur Weir Primary Care Provider [phone] Abel Chavarria RN Unavailable [phone] Margareth Chavarria Unavailable Reason for Visit * Reason Comments Med Refill Encounter Details Date Type Department Care Team (Late st Contact Info) Description 09/19/2023 Refill [facility] 230 [place] [address] Nupur Weir ANP 230 [place] [address] Constipation, unspecified constipation type Social History Tobacco [...] Description 05/15/2025 9:15 AM EDT Office Visit [address] [address] Nupur Weir ANP [address] [place] [address] 06/12/2025 9:45 AM EDT Office Visit [address] [address] 09/28/2025 9:30 AM EST Medication Management [address] [address] Fay Leigh PharmD [address] [place] [address] documented as of this encounter Visit Diagnoses Diagnosis Constipation, unspecified constipation type documented in this encounter Care Teams Burlesque Dancer Relationship Specialty Start Date End Date Nupur Weir ANP [address] [place] [address] PCP - General Family Medicine 01/16/20 Abel Chavarria, ILENE [address] [place] [address] Registered Nurse Family Medicine 02/26/25 Margareth Chavarria 02/26/25 documented as of this encounter
--- OUTSIDE RECORDS SUMMARY | 2025-05-09 00:26 | XMS_ITS | Encounter Summary ---
Author Organization [employer] Address [address] 7t [place] [address] Care Team Providers Care Slide Maker Name Role Phone Nupur Weir Primary Care Provider [phone] Abel Chavarria RN Unavailable [phone] Margareth Chavarria Unavailable Encounter Details Date Type Department Care Team (Late st Contact Info) Description 04/11/2024 Orders Only [facility] 230 [place] [address] Nupur Weir ANP 230 [place] [address] Social History Tobacco Use Types Packs/Day Years [...] Description 05/15/2025 9:15 AM EDT Office Visit [address] [address] Nupur Weir ANP [address] [place] [address] 06/12/2025 9:45 AM EDT Office Visit [address] [address] 09/28/2025 9:30 AM EST Medication Management [address] [address] Fay Leigh, PharmD [address] [place] [address] documented as of this encounter Visit Diagnoses Not on filedocumented in this encounter Care Teams Slide Maker Relationship Specialty Start Date End Date Nupur Weir ANP [address] [place] [address] PCP - General Family Medicine 01/16/20 Abel Chavarria, RN [address] [place] [address] Registered Nurse Family Medicine 02/26/25 Margareth Chavarria 02/26/25 documented as of this encounter
--- OUTSIDE RECORDS SUMMARY | 2025-05-09 00:26 | XMS_ITS | Encounter Summary ---
Author Organization [employer] Address [address] 7t [place] [address] Care Team Providers Care Student Assistance Counselor Name Role Phone Nupur Weir Primary Care Provider [phone] Abel Chavarria RN Unavailable [phone] Margareth Chavarria Unavailable Reason for Visit * Reason Comments Med Refill Encounter Details Date Type Department Care Team ([facility] st Contact Info) Description 02/11/2024 Refill [facility] 230 [place] [address] Npuur Weir ANP 230 [place] [address] Social History Tobacco Use Types Packs/Day Years [...] Description 05/15/2025 9:15 AM EDT Office Visit [address] [address] Nupur Weir ANP [address] [place] [address] 06/12/2025 9:45 AM EDT Office Visit [address] [address] 09/28/2025 9:30 AM EST Medication Management [address] [address] Fay Leigh, PharmD [address] [place] [address] documented as of this encounter Visit Diagnoses Not on filedocumented in this encounter Care Teams Student Assistance Counselor Relationship Specialty Start Date End Date Nupur Weir ANP [address] [place] [address] PCP - General Family Medicine 01/16/20 Abel Chavarria, ILENE [address] [place] [address] Registered Nurse Family Medicine 02/26/25 Margareth Chavarria 02/26/25 documented as of this encounter
--- OUTSIDE RECORDS SUMMARY | 2025-05-09 00:26 | XMS_ITS | Encounter Summary ---
Author Organization [employer] [facility] Address [address] [place] [address] 7t [place] [address] Care Team Providers Care Automobile Tire Builder Name Role Phone Nupur Weir Primary Care Provider [phone] Abel Chavarria RN Unavailable [phone] Margareth Chavarria Unavailable Encounter Details Date Type Department Care Team (Late st Contact Info) Description 07/30/2022 Abstract [facility] ADULT DENTAL [address] [place] [address] Dental, Provider, DDS Social History Tobacco Use [...] Description 05/15/2025 9:15 AM EDT Office Visit [facility] [address] [place] [address] Nupur Weir ANP 230 [place] [address] 06/12/2025 9:45 AM EDT Office Visit [facility] [address] [place] [address] 09/28/2025 9:30 AM EST Medication Management [address] [address] Fay Leigh, MayoD 230 [place] [address] documented as of this encounter Procedures Procedure [...] on filedocumented in this encounter Care Teams Automobile Tire Builder Relationship Specialty Start Date End Date Nupur Weir ANP 230 [place] [address] PCP - General Family Medicine 01/16/20 Abel Chavarria, ILENE [address] [place] [address] Registered Nurse Family Medicine 02/26/25 Margareth Chavarria 02/26/25 documented as of this encounter
--- OUTSIDE RECORDS SUMMARY | 2025-05-09 00:26 | XMS_ITS | Encounter Summary ---
Author Organization [employer] Address [address] [place] [address] 7t [place] [address] Care Team Providers Care Floor Worker Name Role Phone Nupur Weir Primary Care Provider [phone] Abel Chavarria RN Unavailable [phone] Margareth Chavarria Unavailable Reason for Visit * Reason Comments Care Coordination C3CM/JOHN Morocho Appt reminder/PT-1 update Encounter Details Date Type Department Care Team (Latest Contact Info) Description 05/07/2025 Patient Outreach [facility] 230 [place] [address] Nupur Weir ANP 230 [place] [address] Care Coordination (C3CM/JOHN Jurado Appt reminder/PT-1 update) Social History Tobacco Use Types Packs/Day Years [...] as of this encounter Progress Notes * Margareth Chavarria - 05/07/2025 5:06 PM EDT CHW Margareth Chavarria, placed outbound call to patient introducing herself calling from [facility]. Patient's name, and address confirmed. CHW reminded patient of 2 upcoming appt at [facility] scheduled for tomorrow 05/08/2025. -1st appt@9:45AM with Pain Management, 2nd appt with [facility] physch@10:30AM. Patient aware of brain picker times, and drop off times, and agrees with plan. No further questions or concerns. CHW reinforced direct contact information for any additional questions or concerns and extended clinic hours on Mondays and Wednesdays, and Walk-In Urgent Care Located in [facility] of [facility]. Patient provided with after-hours line for [facility], , which offer night time triage service and option to transfer to cotton sampler provider if needed. Patient verbalizes understanding, and able to repeat back to data analyst report writer. A follow up call will be placed within 10 days, patient agrees with plan. documented in this encounter Plan of Treatment Upcoming Encounters Date Type Department Care Team (Late st Contact Info) Description 05/15/2025 9:15 AM EDT Office Visit [address] [address] Nupur Weir ANP [address] [place] [address] 06/12/2025 9:45 AM EDT Office Visit [address] [address] 09/28/2025 9:30 AM EST Medication Management [address] [address] Fay Leigh, PharmD [address] [place] [address] documented as of this encounter Visit Diagnoses Not on filedocumented in this encounter Additional Health Concerns Assessment Noted Time PHQ-9 Depression Total Score: 17 025 10:08 AM EDT documented as of this encounter Care Teams Floor Worker Relationship Specialty Start Date End Date Nupur Weir ANP [address] [place] [address] PCP - General Family Medicine 01/16/20 Abel Chavarria, RN [address] [place] [address] Registered Nurse Family Medicine 02/26/25 Margareth Chavarria 02/26/25 documented as of this encounter
--- OUTSIDE RECORDS SUMMARY | 2025-05-09 00:26 | XMS_ITS | Encounter Summary ---
Author Organization [employer] Address [address] 7t [place] [address] Care Team Providers Care Siebel Crm Developer Name Role Phone Nupur Weir Primary Care Provider [phone] Abel Chavarria RN Unavailable [phone] Margareth Chavarria Unavailable Encounter Details Date Type Department Care Team ([facility] st Contact Info) Description 07/05/2024 Telephone [facility] 230 [place] [address] Alonso-PradhanAncaYarelis, DDS 230 [place] [address] Social History Tobacco Use Types Packs/Day Years [...] Shameka Simons - 07/05/2024 10:56 AM EST Oh doctor flip Patient called she went her pharmacy and her medication was not there. Can we send her prescriptions to her pharmacy thank you . documented in this encounter Plan of Treatment Upcoming Encounters Date Type Department Care Team (Late st Contact Info) Description 05/15/2025 9:15 AM EDT Office Visit [facility] [address] [place] [address] Nupur Weir, ANP 230 [place] [address] 06/12/2025 9:45 AM EDT Office Visit [facility] [address] [place] [address] 09/28/2025 9:30 AM EST Medication Management [facility] [address] [place] [address] Fay Leigh, MayoD 230 [place] [address] documented as of this encounter Visit Diagnoses Not on filedocumented in this encounter Care Teams Siebel Crm Developer Relationship Specialty Start Date End Date Nupur Weir ANP 230 [place] [address] PCP - General Family Medicine 01/16/20 Abel Chavarria RN [address] [place] [address] Registered Nurse Family Medicine 02/26/25 Margareth Chavarria 02/26/25 documented as of this encounter
--- OUTSIDE RECORDS SUMMARY | 2025-05-09 00:26 | XMS_ITS | Encounter Summary ---
Author Organization [employer] Address [address] 7t [place] [address] Care Team Providers Care Db2 Developer Name Role Phone Nupur Weir Primary Care Provider [phone] Abel Chavarria RN Unavailable [phone] Margareth Chavarria Unavailable Reason for Visit * Reason Comments Med Refill Encounter Details Date Type Department Care Team (Late st Contact Info) Description 03/22/2024 Refill [facility] 230 [place] [address] Marcella Colindres MD 230 [place] [address] Acute pyelonephritis Social History Tobacco Use Types [...] Description 05/15/2025 9:15 AM EDT Office Visit [address] [address] Nupur Weir ANP [address] [place] [address] 06/12/2025 9:45 AM EDT Office Visit [address] [address] 09/28/2025 9:30 AM EST Medication Management [address] [address] Fay Leigh PharmD [address] [place] [address] documented as of this encounter Visit Diagnoses Diagnosis Acute pyelonephritis 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
--- OUTSIDE RECORDS SUMMARY | 2025-05-09 00:26 | XMS_ITS | Encounter Summary ---
Author Organization [employer] Address [address] [place] [address] Street 7t [place] [address] Care Team Providers Care Legal Instruments Examiner Name Role Phone Nupur Weir Primary Care Provider [phone] Abel Chavarria RN Unavailable [phone] Margareth Chavarria Unavailable Reason for Visit * Reason Comments Med Refill Encounter Details Date Type Department Care Team (Late st Contact Info) Description 07/22/2024 Refill [facility] 230 [place] [address] Nupur Weir ANP 230 [place] [address] Social History Tobacco Use Types Packs/Day Years [...] the past 12 months, has t he CHAINels, gas, oil or water [employer] threatened to shut off services in your [...] Description 05/15/2025 9:15 AM EDT Office Visit [address] [address] Nupur Weir ANP [address] [place] [address] 06/12/2025 9:45 AM EDT Office Visit [address] [address] 09/28/2025 9:30 AM EST Medication Management [address] [address] Fay Leigh, PharmD [address] [place] [address] documented as of this encounter Visit Diagnoses Not on filedocumented in this encounter Care Teams Legal Instruments Examiner Relationship Specialty Start Date End Date Nupur Weir ANP 230 [place] [address] PCP - General Family Medicine 01/16/20 Abel Chavarria RN 505 [place] [address] Registered Nurse Family Medicine 02/26/25 Margareth Chavarria 02/26/25 documented as of this encounter
--- OUTSIDE RECORDS SUMMARY | 2025-05-09 00:26 | XMS_ITS | Encounter Summary ---
Author Organization [employer] Address [address] [place] [address] Street 7t [place] [address] Care Team Providers Care Tax Clerk Name Role Phone Nupur Weir Primary Care Provider [phone] Abel Chavarria RN Unavailable Margareth Chavarria Unavailable Reason for Visit * Reason Comments Med Refill Encounter Details Date Type Department Care Team (Late st Contact Info) Description 12/21/2024 Refill [facility] 230 [place] [address] Nupur Weir ANP 230 [place] [address] Arthralgia, unspecified joint Social History Tobacco Use [...] t he electric, gas, oil or water [employer] threatened to shut off services in your [...] Description 05/15/2025 9:15 AM EDT Office Visit [facility] [address] [place] [address] Nupur Weir ANP 230 [place] [address] 06/12/2025 9:45 AM EDT Office Visit [address] [address] 09/28/2025 9:30 AM EST Medication Management [address] [address] Fay Leigh, MayoD [address] [place] [address] documented as of this encounter Visit Diagnoses Diagnosis Arthralgia, unspecified joint documented in this encounter Care Teams Tax Clerk Relationship Specialty Start Date End Date Nupur Weir ANP 230 [place] [address] PCP - General Family Medicine 01/16/20 Abel Chavarria, ILENE 505 [place] [address] Registered Nurse Family Medicine 02/26/25 Margareth Chavarria 02/26/25 documented as of this encounter
--- OUTSIDE RECORDS SUMMARY | 2025-05-09 00:27 | XMS_ITS | Encounter Summary ---
Author Organization [employer] Address [address] [place] [address] Street 7t [place] [address] Care Team Providers Care Software Security Consultant Name Role Phone Nupur Weir Primary Care Provider [phone] Abel Chavarria RN Unavailable [phone] Margareth Chavarria Unavailable Reason for Visit * Reason Onset Date Comments Med Refill 12/22/2024 Encounter Details Date Type Department Care Team ([facility] st Contact Info) Description 12/22/2024 Telephone [facility] 230 [place] [address] Nupur Weir ANP 230 [place] [address] Med Refill Social History Tobacco Use Types [...] t he electric, gas, oil or water [employer] [facility] threatened to shut off services in your [...] 50 MG tablet To be sent to: [facility] - [place], [place] - [address] [place] [address] documented in this encounter Plan of Treatment Upcoming Encounters Date Type Department Care Team ([facility] st Contact Info) Description 05/15/2025 9:15 AM EDT Office Visit [facility] [address] [place] [address] Nupur Weir ANP 230 [place] [address] 06/12/2025 9:45 AM EDT Office Visit [address] [address] 09/28/2025 9:30 AM EST Medication Management [facility] [address] [place] [id number] Fay Leigh, PharmD [address] [place] [address] documented as of this encounter Visit Diagnoses Not on filedocumented in this encounter Care Teams Software Security Consultant Relationship Specialty Start Date End Date Nupur Weir ANP [address] [place] [address] PCP - General Family Medicine 01/16/20 Abel Chavarria RN [address] [place] [address] Registered Nurse Family Medicine 02/26/25 Margareth Chavarria 02/26/25 documented as of this encounter
--- OUTSIDE RECORDS SUMMARY | 2025-05-09 00:27 | XMS_ITS ---
Author Organization [employer] Address [address] [place] [address] 7t [place] [address] Care Team Providers Care Tubing Mill Operator Name Role Phone Nupur Weir Primary Care Provider [phone] Abel Chavarria RN Unavailable [phone] Margareth Chavarria Unavailable CM Complex Status:Enrolled (Active) Start date:02/26/2025 Enrollment date:03/15/2025 Enrollment reason:ADT Feed Overview ED- Pt went to [facility] ED on 02/24/25. Case Team Name Relationship Phone Abel Chavarria RN(Responsible Staff) Registered Nurse [phone] Continued Care and Services Coordination
--- OUTSIDE RECORDS SUMMARY | 2025-05-09 00:27 | XMS_ITS | Encounter Summary ---
Author Organization [employer] Address [address] [address] 7t [place] [address] Care Team Providers Care Computer Applications Engineer Name Role Phone Nupur Weir Primary Care Provider [phone] Abel Chavarria RN Unavailable [phone] Margareth Chavarria Unavailable Encounter Details Date Type Department Care Team (Latest Contact Info) Description 05/08/2025 Travel Social History Tobacco Use Types Packs/Day [...] Description 05/15/2025 9:15 AM EDT Office Visit [facility] [address] [place] [address] Nupur Weir ANP 230 [place] [address] 06/12/2025 9:45 AM EDT Office Visit [address] [address] 09/28/2025 9:30 AM EST Medication Management [address] [address] Fay Leigh, PharmD [address] [place] [address] documented as of this encounter Visit Diagnoses Not on filedocumented in this encounter Additional Health Concerns Assessment Noted Time PHQ-9 Depression Total Score: 17 025 10:08 AM EDT documented as of this encounter Care Teams Computer Applications Engineer Relationship Specialty Start Date End Date Nupur Weir ANP [address] [place] [address] PCP - General Family Medicine 01/16/20 Abel Chavarria RN [address] [place] [address] Registered Nurse Family Medicine 02/26/25 Margareth Chavarria 02/26/25 documented as of this encounter
--- OUTSIDE RECORDS SUMMARY | 2025-05-09 00:27 | XMS_ITS | Clinical Summary ---
Author Organization [employer] Address [address] [place] [address] Care Team Providers Care Bench Press Operator Name Role Phone Michael Yanez Primary Care Provider [phone] Abel Chavarria RN Unavailable [phone] Margareth Chavarria Unavailable Allergies Active Allergy Reactions [...] Intertrigo Apply twice daily for 14-28d to [facility] 30 g 025 Active Cholecalciferol [...] needed for severe pain for up to 14 days. 42 tablet 025 2024 Active ferrous sulfate (Fe Tabs) 325 (65 [...] 6 tablet 025 2024 Discontinued(T herapy completed) Diclofenac Sodium 1 % gel Apply 1 [...] to 10 days. 30 tablet 025 2024 traMADol (Ultram) 50 MG tabletIndications :Long-term current use of opiate analgesic,Back pain, unspecified back location, unspecified back pain laterality, unspecified chronicity TAKE 1 TABLET BY MOUTH EVERY 8 HOURS NEEDED FOR SEVERE PAIN FOR UP TO 7 DAYS 21 tablet 025 2024 Discontinued(R eorder (will not trigger notification to Pharmacy)) Active Problems Problem Noted Date Diagnosed Date [...] Q8H PRN Indication: arthralgia, lumbar spondylosis Last JD EDWARDS DEVELOPER Agreement: 12/01/24 Marketing Production Specialist tier 2 q 3 mo Assessment & Plan (05/08/2025 12:44 PM EDT): Timeline: - 05/08/25: Group - utox/pill count as expected Constipation 08/25/2024 Dental calculus 05/08/2024 Missing teeth, [...] 03/10/2012 Lumbar spondylosis 03/10/2012 Assessment & Plan (05/08/2025 12:44 PM EDT): Chronic low back pain, XR Lumbar spine Aug 2024 demonstrates moderate degenerative changes in the lumbar spine most pronounced at L5-S1 Good engagement and participation with Group Medical Visit model Encouraged multifactorial approach to pain control including pharm and non-pharm modalities Pill count and UTOX as expected Assessment & Plan (04/10/2025 2:14 PM EDT): Chronic low back pain, XR Lumbar spine Aug 2024 demonstrates moderate degenerative changes in the lumbar spine most pronounced at L5-S1 Good engagement and participation with Group Medical Visit model, today was first visit. Encouraged multifactorial approach to pain control including pharm and non-pharm modalities Pill count as expected. UTOX unexpected. See bias cutting machine operator vertical. Send out MTD and BZO confirmatory. Possible [...] organization. Date Type Department Care Team Description 05/08/2025 9:45 AM EDT Office Visit [facility] MEDICINE [address] [place] [phone] Anushka Gunter FNP Lumbar spondylosis (Primary Dx); Long-term current use of opiate analgesic 05/08/2025 Refill [facility] CHC MED & PEDS [address] [place] [address] Kassy Ramsey, ILENE Long-term current use of opiate analgesic; Back pain, unspecified back location, unspecified back pain laterality, unspecified chronicity 05/08/2025 Travel 05/07/2025 Patient Outreach [facility] MEDICINE [address] [place] [address] Michael Yanez, BATOOL Care Coordination (C3CM/CHW KHUSHBU Edwards- Appt reminder/PT-1 update) 05/06/2025 Results Follow-Up [facility] WALK-IN CENTER [address] [place] [address] Jaleel Block MD CTA Chest PE Protocal 05/03/2025 Patient Outreach [facility] MEDICINE [address] [place] [phone] Michael Yanez ANP Care Coordination (C3/CHW KHUSHBU Edwards-Follow up/PT-1) 05/03/2025 Patient Outreach [address] [address] Michael Yanez ANP Care Management (C3CM- f/u call) 05/01/2025 Orders Only [facility] WALK-IN CENTER [address] [place] [phone] Jaleel Block MD 04/25/2025 Patient Outreach [address] [address] Michael Yanez ANP 04/23/2025 Patient Outreach [address] [address] Michael Yanez ANP Care Management (C3CM- f/u call) 04/18/2025 Refill [facility] MEDICINE [address] [place] [phone] Michael Yanez ANP Long-term current use of opiate analgesic; Back pain, unspecified back location, unspecified back pain laterality, unspecified chronicity 04/17/2025 10:30 AM EDT Clinical Support [facility] MED & PEDS [address] [place] [address] Kassy Ramsey, RN Long-term current use of opiate analgesic (Primary Dx) 04/17/2025 Refill [facility] MEDICINE [address] [place] [address] Michael Yanez ANP Iron deficiency anemia, unspecified iron deficiency anemia type 04/17/2025 Telephone [facility] MED & PEDS [address] [place] [address] Kassy Ramsey, ILENE 04/17/2025 Travel 04/16/2025 Refill [facility] MEDICINE [address] [place] [address] Michael Yanez ANP Iron deficiency anemia, unspecified iron deficiency anemia type 04/11/2025 4:00 PM EDT Office Visit [address] [address] Michael Yanez ANP Primary hypertension (Primary Dx); RUQ pain 04/11/2025 Orders Only GENERIC EXTERNAL DATA DEPARTMENT Provider, Generic External Data 04/11/2025 Travel 04/10/2025 9:45 AM EDT Office Visit [address] [address] Anushka Gunter, KYLER Lumbar spondylosis (Primary Dx); Long-term current use of opiate analgesic 04/10/2025 Patient Outreach [address] [address] Michael Yanez ANP Care Coordination (C3CM/CHW KHUSHBU Edwards- Appt reminder) 04/10/2025 Telephone [facility] MED & PEDS [address] [place] [address] Kassy Ramsey RN 04/10/[address] [address] Jaleel Block MD CTA Chest order 04/10/[address] [address] Michael Yanez ANP CHART PREP 04/10/2025 Telephone [facility] MED & PEDS [address] [place] [address] Kassy Ramsey RN 04/10/2025 Travel 04/10/[address] [address] Michael Yanez ANP ER Follow-up 04/09/2025 Patient Outreach [address] [address] Michael Yanez ANP Care Management (C3CM- f/u call) 04/09/2025 Patient Outreach [address] [address] Michael Yanez ANP 04/06/2025 Patient Outreach [address] [address] Michael Yanez ANP Pre-visit Planning (SDOH screening completed on 02/26/25 ) 04/05/2025 Patient Outreach [address] [address] Michael Yanez ANP 04/05/2025 Telephone [facility] WALK-IN CENTER [address] [place] [phone] Jaleel Block MD 04/05/2025 Orders Only [facility] [address] [address] Jaleel Block MD Right-sided chest pain (Primary Dx); Hemoptysis 04/05/2025 Orders Only [facility] External Provider, [facility] 04/04/2025 9:40 AM EDT Office Visit [facility] WALK-IN [address] [address] Jaleel Block MD Right-sided chest pain (Primary Dx); Hemoptysis 04/04/[facility] [address] [address] Jaleel Block MD 04/04/2025 [facility] [address] [address] Jaleel Block MD 04/04/2025 Telephone [facility] MED & PEDS [address] [place] [address] Jaleel Block MD 04/04/2025 Travel 03/28/2025 Patient Outreach [address] [address] Michael Yanez ANP Care Coordination (NATHALY/KHUSHBU Jurado- PT-1 Coordination) 03/27/2025 Patient Outreach [address] [address] Michael Yanez ANP Care Management (C3- f/u call) 03/22/2025 Orders Only GENERIC EXTERNAL DATA DEPARTMENT Provider, Generic External Data 03/22/2025 Travel 03/22/[address] [address] Michael Yanez ANP Long-term current use of opiate analgesic (Primary Dx); Back pain, unspecified back location, unspecified back pain laterality, unspecified chronicity 03/21/2025 Patient Outreach [address] [address] Michael Yanez ANP Care Coordination (NATHALY/KHUSHBU Jurado-Appt reminder-[facility]) 03/19/2025 Refill [facility] MEDICINE [address] [place] [address] Michael Yanez ANP Arthralgia, unspecified joint 03/16/2025 Patient Outreach [address] [address] Michael Yaenz ANP Care Coordination ([facility]/Isra Chavarria-KHUSHBU- Booked PT-1 for upcoming appt to [facility]) 03/15/2025 Patient Outreach [address] [address] Michael Yanez ANP Care Management ([facility]- initial assessment/ enrollment/) 03/15/[address] [address] Berkley Hinkle RN 03/15/2025 Plan of Care Documentation [address] [address] 03/14/[address] [address] Michael Yanez ANP Iron deficiency anemia, unspecified iron deficiency anemia type; Primary hypertension 03/13/2025 Patient Outreach [address] [address] Michael Yanez ANP Care Coordination ([facility]/KHUSHBU Jurado- Complex Care [place] Appt Reminder) 03/12/2025 2:00 PM EDT Office Visit [facility] WALK-IN CENTER [address] [place] [phone] Marcella Colindres MD Acute bursitis of left shoulder (Primary Dx) 03/12/2025 Travel 03/12/2025 Patient Outreach [address] [address] Michael Yanez ANP 03/11/[address] [address] Michael Yanez ANP Arthralgia, unspecified joint 03/10/2025 Orders Only GENERIC EXTERNAL DATA DEPARTMENT Provider, Generic External Data 02/28/2025 Patient Outreach [address] [address] Michael Yanez ANP 02/27/2025 1:00 PM EDT Telemedicine [address] [address] Julianne Anne RN Strain of left shoulder, initial encounter 02/27/2025 Travel 02/26/2025 Patient Outreach [address] [address] Michael Yanez ANP Care Coordination (C3/W Margareth Chavarria - ADT Outreach-Agrees to participate) 02/26/2025 Patient Outreach [address] [address] Michael Yanez ANP Care Coordination (C3/W Margareth Chavarria, Chart Review) 02/26/2025 Patient Outreach [address] [address] Micahel Yanez ANP Care Management (C3- chart review) 02/26/2025 Patient Outreach [address] [address] Michael Yanez ANP 02/25/2025 Refill [facility] WALK-IN CENTER [address] [place] [address] Jaleel Block MD 02/12/2025 Refill [facility] MED & PEDS [address] [place], [place] [phone] Michael Yanez ANP Other specified hypothyroidism 02/06/2025 Telephone [facility] MED & PEDS [address] [place], [place] [phone] Kassy Ramsey RN from Last 3 Months Immunizations Immunization Administration [...] Description 05/15/2025 9:15 AM EDT Office Visit [facility] MEDICINE [address] [place] [address] Michael Yanez ANP [address] [place] [address] 06/12/2025 9:45 AM EDT Office Visit [facility] MEDICINE [address] [place] [address] 09/28/2025 9:30 AM EST Medication Management [address] [address] Fay Leigh, PharmD [address] [place] [address] Health Maintenance Due Date Last Done Comments [...] Disability Screening 12/15/2025 12/15/2024 Mammogram 02/05/2026 02/05/2025, 04/0 04/2024, 11/09/2018 SDOH Screening 02/26/2026 02/26/2025 Tobacco Screening [...] EDT Long-term current use of opiate analgesic CTA CHEST PE PROTOCAL Routine 05/01/2025 2:33 [...] Urine Drug Screen (05/08/2025 10:33 AM EDT) Only the most recent of3 resultswithin the time period is included. THC [...] - 05/08/2025 10:33 AM EDT .UTOX cup Lot#[id number] Exp. 06/05/26 Internal Pass Control us Michael RENAE POINT OF CARE TEST ENTER/EDIT OR DERABLES Final Result * CTA Chest PE Protocal (05/01/2025 2:33 PM EDT) Anatomical Region Laterality Modality Body, Chest Computed Tomogra phy 05/01/2025 2:33 PM EDT Narrative 05/01/2025 3:11 PM EDT [place] [address] [address] Scan Report Signed Patient: Laura Gonzalez MR#: [id number] : 1965 Acct:[id number] Age/Sex: 60 / F ADM Date: 05/01/25 Loc: .CT Attending Dr: Jaleel Block MD Ordering Physician: JALEEL BLOCK MD Date of Service: 05/01/25 Procedure(s): CT angio chest PE protocol Accession Number(s): [id number] cc: JALEEL BLOCK MD; MICHAEL YANEZ NP Report Number: [id number]: Total DLP = 139.00 mGy-cm Reason for [...] 05/01/25 1508 DD/ 1433 TD/TT: 05/01/25 1452 Senior Specialist: Procedure Note Donotuseinterpreter, Image - 05/01/[address] [place] [address] [address] Scan Report Signed Patient: Aleksandar Gonzalez#: [id number] : 1965Acct:[id number] Age/Sex: 60 / FADM Date: 05/01/25 Loc: HO.CT Attending Dr: Jaleel Block MD Ordering Physician: JALEEL BLOCK MD Date of Service: 05/01/25 Procedure(s): CT angio chest PE protocol Accession Number(s): [id number] cc: JALEEL BLOCK MD; MICHAEL YANEZ NP Report Number: [id number]: Total DLP = 139.00 mGy-cm Reason for [...] 05/01/25 1508 DD/ 1433 TD/TT: 05/01/25 1452 Senior Specialist: Jaleel Block MD IMG CT PROCEDURES Final Result * Hematoxylin and Eosin Stain (04/11/2025 12:01 PM EDT) 04/11/2025 12:0 1 PM EDT 04/11/2025 1:46 PM EDT [facility] - 04/12/2025 2:08 PM EDT ----- ------- Name: Laura Gonzalez Age/Sex: 60/F : 1965 [facility]#: [id number] Unit#: [id number] Attend Dr: Tung Potter MD Re04/11/25 Status: [facility] Location: [facility] Disch: ----- ------- SPEC : [id number] RECD: 04/11/25-1345 STATUS: CIELO PRICE NUM: [id number] ANGELA: 04/11/25-[address] [facility] [address]: Tung Potter MD ENTERED: 04/11/25 SP [...] developed and their performance characteristics determined by [facility]. They have not been cleared or approved by the U.S. Food and Drug Administration (FDA). However, the FDA has determined that such clearance or approval is not necessary. This laboratory is CONTINUED ON NEXT PAGE ----- ------- Name: Laura Gonzalez Age/Sex: 60/F : 1965 Unit#: [id number] Attend Dr: Tung Potter MD Re04/11/25 Status: [facility] Location: [facility] Disch: ----- ------- SPEC : [id number] RECD: 04/11/25-1345 STATUS: CIELO PRICE NUM: [id number] ANGELA: 04/11/25-[address]: Tung Potter MD ENTERED: 04/11/25 SP TYPE: Surgical OTHR DR: MICHAEL YANEZ NP ORDERED: HE Stain/6, Gross Micro L4/2, IHC, Special st. 2/2, H. pylori, AB/PAS/2 IHC S/NG Disclaimer (Continued) certified under the Clinical Laboratory Improvement Amendments of 1988 (CLIA) as qualified to perform high complexity clinical laboratory testing. Copies To: Tung Potter MD [facility] Weight Management Program [address] [place] [phone] MICHAEL YANEZ NP [facility] [address] [facility] [address] [place] [address] ----- ------- Signed (signature on file) Yasmeen Carrasco MD 04/12/25 1408 ----- ------- END OF REPORT us Generic External Data Provider LAB BLOOD ORDERAB LES Final Result [facility] [address] [place] [phone] * Drug Monitoring, Benzodiazepines, Quantitative, Urine (04/10/2025 10:00 AM EDT) Nordiazepam, GCMS Urine NEGATIVE [facility] Comment:CUTOFF: 50 ng/mL Oxazepam, GCMS Urine NEGATIVE [facility] Comment:CUTOFF: 50 ng/mL Lorazepam GCMS Urine NEGATIVE [facility] Comment:CUTOFF: 50 ng/mL Alprazolam, GCMS Urine NEGATIVE [facility] Comment:CUTOFF: 25 ng/mL Alphahydroxytriazolam, GCMS Ur NEGATIVE [facility] Comment:CUTOFF: 50 ng/mL Temazepam, GCMS Urine NEGATIVE [facility] Comment:CUTOFF: 50 ng/mL Alphahydroxymidazolam,GC MS Ur NEGATIVE [facility] Comment:CUTOFF: 50 ng/mL Aminoclonazepam, GCMS Urine NEGATIVE [facility] Comment:CUTOFF: 25 ng/mL Flurazepam Metabolite,GCMS Ur NEGATIVE [facility] Comment:CUTOFF: 50 ng/mL Benzodiazepines Comments SEE NOTE [facility] Comment:This drug testing is for medical treatment only. Analysiswas performed as non-forensic testing and these resultsshould be used only by healthcare providers to renderdiagnosis or treatment, or to monitor progress of medicalconditions.LDT Notes:Confirmation tests were developed and their analyticalperformance characteristics have been determined by [employer]. It has not been cleared or approved by the FDA.This assay has been validated pursuant to the CLIAregulations and is used for clinical purposes.Healthcare Providers needing Interpretation assistance,please contact us at [phone] ( ) M-F,8am to 10pm ESTPERFORMING SITE:[facility] [employer] [facility], [address] [place] [phone] Fact Checker: NILSA MATTHEWS MD, CLIA:[id number] Urine (Urine, Random) 04/10/2025 10:00 AM EDT 04/10/2025 1:08 PM EDT us [facility] LAB URINE ORDERABLES Final Resul t [facility] [address] [place] [phone] [phone] * Drug Monitoring, Methadone Metabolite, Screen, Urine (04/10/2025 10:00 AM EDT) Methadone Screen, Urine Not Detected Not Detect ng/mL [facility] Comment:Methadone cut-off is 300 ng/mL.Positive results are unconfirmed and should not be used fornon-medical purposes. Urine (Urine, Random) 04/10/2025 10:00 AM EDT 04/10/2025 1:08 PM EDT us Michael Yanez ANP LAB URINE ORDERABLES Final Resul t [facility] [address] [place] [phone] * US Abdomen Limited (04/05/2025 12:53 PM EDT) Anatomical Region Laterality Modality Abdomen Ultrasound 04/05/2025 12:5 3 PM EDT Narrative 04/05/2025 1:28 PM EDT [address] [address] Ultrasound Report Signed Patient: Laura Gonzalez MR#: [id number] : 1965 Acct:[id number] Age/Sex: 60 / F ADM Date: 04/05/25 Loc: HO.ED Attending Dr: Ordering Physician: Alisha Saldivar PA-C Date of Service: 04/05/25 Procedure(s): US abdomen limited Accession Number(s): [id number] cc: Alisha Saldivar PA-C; MICHAEL YANEZ [employer] CUTTER EXAMINATION: US ABDOMEN LIMITED HISTORY: RUQ pain [...] 04/05/25 1325 DD/ 1253 TD/TT: 04/05/25 1302 Senior Specialist: Procedure Note Donotuseinterpreter, Image - 04/05/[address] [address] Ultrasound Report Signed Patient: Aleksandar Gonzalez#: [id number] : 1965Acct:[id number] Age/Sex: 60 / FADM Date: 04/05/25 Loc: HO.ED Attending Dr: Ordering Physician: Alisha Saldivar PA-C Date of Service: 04/05/25 Procedure(s): US abdomen limited Accession Number(s): [id number] cc: Alisha Saldivar PA-C; MICHAEL YANEZ NP [...] Allen Horta MD 04/05/2025 01:25 PM EDT Dictated By: Allen Horta MD Signed By: <Electronically signed by Allen Horta MD in OV> 04/05/25 1325 DD/ 1253 TD/TT: 04/05/25 1302 Senior Specialist: us [facility] External Provider IMG US PROCEDURES Final Result * (ABNORMAL) Urinalysis, Complete, with Reflex to Culture (04/05/2025 10:08 AM EDT) Color Urine Yellow [facility] Appearance Urine Turbid [facility] PH 7.0 5.0 - 9.0 [facility] Glucose Urine UA Negative Negative mg/dL [facility] Urine Blood Negative Negative [facility] Specific Deputy - Urine 1.015 1.005 - 1.025 [facility] Urine Protein Negative Neg-Trace mg/dL [facility] Urine Ketones Negative Negative mg/dL [facility] Nitrite Urine Negative Negative [facility] Leukocyte Esterase Urine Moderate (2+)(A) Negative [facility] RBC Urine 0-2 0 - 2 /HPF [facility] Urine WBC 6-10(A) 0 - 5 /HPF [facility] Urine Squamous Epithelial Cell 0-2 0 - 2 /HPF [facility] Urine Bacteria None Seen None Seen [facility] Hyaline Casts, Urine 0-2 0 - 2 /LPF [facility] 04/05/2025 10:0 8 AM EDT 04/05/2025 10:13 AM EDT Narrative [facility] - 04/05/2025 10:22 AM EDT Urine, Clean Catch us Generic External Data Provider LAB URINE ORDERAB LES Final Result [facility] [address] [place] [phone] * D Dimer High Sensitivity (04/05/2025 10:05 AM EDT) Only the most recent of2 resultswithin the time period is included. [facility] D Dimer High Sensitivity 164 NG/ML [facility] Comment:D-DIMER HS REFERENCE RANGENote: [...] ORDERAB LES Final Result Performing Organization Address [facility] [address] [place] [phone] * High Sensitivity Troponin I (04/05/2025 10:05 AM EDT) Only the most recent of2 resultswithin the time period is included. [facility] TROPONIN I HIGH SENSITIVITY <2.7 <3.5 - 17.0 ng/L [facility] Comment:The Brar high sens itivity Troponin-I results should beused in conjunction with other diagnostic information suchas ECG, clinical observations and information, and patientsymptoms to aid in the diagnosis of PA. 04/05/2025 10:0 5 AM EDT 04/05/2025 10:08 AM EDT us Generic External Data Provider LAB BLOOD ORDERAB LES Final Result Performing Organization Address [facility] Co de Phone Number [facility] [address] [place] [phone] * (ABNORMAL) CBC auto differential (04/05/2025 10:05 AM EDT) Only the most recent of2 resultswithin the time period is included. White Blood Count 4.4(L) 4.8 - 10.8 X10*3/uL [facility] Red Blood Count 4.62 4.20 - 5.50 X10*6/uL [facility] Hemoglobin 13.6 12.0 - 16.0 g/dl [facility] Hematocrit 41.1 37.0 - 47.0 % [facility] Mean Corpuscular Volume 89.0 80.0 - 98.0 fL [facility] Mean Corpuscular Hemoglobin 29.4 27.0 - 33.0 pg [facility] Mean Corpuscular HGB Conc 33.1 31.0 - 35.0 g/dl [facility] Red Cell Distribution Width 13.5 11.0 - 16.0 % [facility] Platelet Count 235 160 - 400 X10*3/uL [facility] Mean Platelet Volume 8.0(L) 9.4 - 12.3 fL [facility] Neutrophils Percent Auto 42.5(L) 45 - 73 % [facility] Imm Gran Pct Auto 0.2 0.0 - 0.4 % [facility] Lymphocytes Percent Auto 41.9(H) 20 - 40 % [facility] Monocytes Percent Auto 11.3(H) 2 - 11 % [facility] Eosinophils Percent Auto 3.2 0 - 4 % [facility] Basophils Percent Auto 0.9 0 - 2 % [facility] NRBC Pct Auto 0.0 0.0 - 0.2 /100WBC [facility] Neutrophils Absolute Auto 1.9(L) 2.0 - 8.3 x10*3/uL [facility] Imm Gran Abs Auto 0.01 0.00 - 0.03 X10*3/uL [facility] Lymphocytes Absolute Auto 1.9 1.2 - 4.9 X10*3/uL [facility] Monocytes Absolute Auto 0.5 0.1 - 1.2 X10*3/uL [facility] Eosinophils Absolute Auto 0.1 0.0 - 0.4 X10*3/uL [facility] Basophils Absolute Auto 0.0 0.0 - 0.2 X10*3/uL [facility] NRBC Abs Auto 0.000 0.0 - 0.012 X10*3/uL [facility] 04/05/2025 10:0 5 AM EDT 04/05/2025 10:08 AM EDT Generic External Data Provider LAB BLOOD ORDERAB LES Final Result Performing Organization Address City/[facility]/ZIP Co de Phone Number [facility] [address] [place] [phone] * Lipase (04/05/2025 10:05 AM EDT) Only the most recent of2 resultswithin the time period is included. Lipase 19 8 - 78 U/L [facility] 04/05/2025 10:0 5 AM EDT 04/05/2025 10:08 AM EDT Generic External Data Provider LAB BLOOD ORDERAB LES Final Result Performing Organization Address [facility] Co de Phone Number [facility] [address] [place] [phone] * (ABNORMAL) Comprehensive Metabolic Panel (04/05/2025 10:05 AM EDT) Sodium 141 135 - 145 mmol/L [facility] Potassium 4.7 3.3 - 5.1 mmol/L [facility] Chloride 112(H) 96 - 108 mmol/L [facility] Carbon Dioxide 23 22 - 29 mmol/L [facility] Anion Gap 11(L) 12 - 20 [facility] Urea Nitrogen (BUN) 13 9 - 16 mg/dL [facility] Creatinine, Serum 0.70 0.5 - 1.4 mg/dL [facility] Creatinine Clr Calc Pharmacy 85.1 [facility] Comment:Provided height and weight: 165.1 cm,70.307 kg.eGFR (calculated from the MDRD study equation) and eCrCl(calculated from the Cockcroft-Gault equation) are based ondifferent parameters and may not yield comparable results.If eCrCl result is absurd, please check patient'sheight/weight. Estimated Glomerular Filt Rate >60 [facility] Comment:Chronic Kidney Disea se: Estimated GFR < 60 mL/min/1.64h0Hwwosi Kidney Disease: Estimated GFR < 15 mL/min/1.73m2 Glucose 96 60 - 115 mg/dL [facility] Calcium 8.9 8.4 - 10.2 mg/dL [facility] Bilirubin, Total 0.8 0.0 - 1.0 mg/dL [facility] Aspartate Amino Transferase 27 5 - 31 U/L [facility] Alanine Aminotransferase 41(H) 0 - 31 U/L [facility] Total Protein 6.6 6.5 - 8.0 g/dL [facility] Albumin Level 3.9 3.5 - 5.0 g/dL [facility] Alkaline Phosphatase 98 39 - 117 U/L [facility] 04/05/2025 10:0 5 AM EDT 04/05/2025 10:08 AM EDT us Generic External Data Provider LAB BLOOD ORDERAB LES Final Result [facility] [address] [place] [phone] * CT Abdomen Pelvis w/o Contrast (04/05/2025 9:45 AM EDT) Anatomical Region Laterality Modality Body, Pelvis, Abdomen Computed T omography 04/05/2025 9:45 AM EDT Narrative 04/05/2025 10:20 AM EDT [address] [address] [address] Scan Report Signed Patient: Laura Gonzalez MR#: [id number] : 1965 Acct:[id number] Age/Sex: 60 / F ADM Date: 04/05/25 Loc: HO.ED Attending Dr: Ordering Physician: Alisha Saldivar PA-C Date of Service: 04/05/25 Procedure(s): CT abdomen pelvis wo IV con Accession Number(s): [id number] cc: Alisha Saldivar PA-C; MICHAEL YANEZ NP Report Number: [id number]: Total DLP = 431.00 mGy-cm EXAMINATION: CT [...] 04/05/25 1018 DD/ 0945 TD/TT: 04/05/25 1000 Senior Specialist: Procedure Note Donotuseinterpreter, Image - 04/05/[address] [place] [address] [address] Scan Report Signed Patient: Aleksandar Gonzalez#: [id number] : 1965Acct:[id number] Age/Sex: 60 / FADM Date: 04/05/25 Loc: HO.ED Attending Dr: Ordering Physician: Alisha Saldivar PA-C Date of Service: 04/05/25 Procedure(s): CT abdomen pelvis wo IV con Accession Number(s): [id number] cc: Alisha Saldivar PA-C; MICHAEL YANEZ NP Report Number: [id number]: Total DLP = 431.00 mGy-cm EXAMINATION: CT [...] 04/05/25 1018 DD/ 0945 TD/TT: 04/05/25 1000 Senior Specialist: [facility] External Provider IMG CT PROCEDURES Final Result * XR Chest 2 Views (04/05/2025 8:44 AM EDT) Only the most recent of3 resultswithin the time period is included. Anatomical Region Laterality Modality Chest Radiographic Jennifer ging 04/05/2025 8:44 AM EDT Narrative 04/05/2025 9:59 AM EDT [place] [address] XRay Report Signed Patient: Laura Gonzalez MR#: [id number] : 1965 Acct:[id number] Age/Sex: 60 / F ADM Date: 04/05/25 Loc: .ED Attending Dr: Ordering Physician: Alisha Saldivar PA-C Date of Service: 04/05/25 Procedure(s): XR chest 2V Accession Number(s): [id number] cc: Alisha Saldivar PA-C; MICHAEL YANEZ NP [...] signed by Gallo Schuster MD in OV> 04/05/25955 DD/ 3 TD/TT: 04/05/25941 Senior Specialist: Procedure Note Donotuseinterpreter, Image - 04/05/[address] [address] XRay Report Signed Patient: Aleksandar Gonzalez#: [id number] : 1965Acct:[id number] Age/Sex: 60 / FADM Date: 04/05/25 Loc: .ED Attending Dr: Ordering Physician: Alisha Saldivar PA-C Date of Service: 04/05/25 Procedure(s): XR chest 2V Accession Number(s): [id number] cc: Alisha Saldivar PA-C; IMCHAEL YANEZ NP EXAMINATION: XR CHEST CLINICAL INFORMATION: [...] Gallo Schuster MD in OV> 04/05/2556 DD/ 3 TD/TT: 04/05/25941 Senior Specialist: [facility] External Provider IMG XR PROCEDURES Final Result * Culture, Urine, Routine (04/05/2025 12:00 AM EDT) Only the most recent of2 resultswithin the time period is included. Urine Urine specimen obtained by clean catch procedure / Unknown 04/05/2025 04/05/2025 Comment:UACC Narrative [facility] - 04/06/2025 10:53 AM EDT Urine Culture No growth. Specimen Source: Urine clean catch Generic External Data Provider LAB MICROBIOLOGY - GENERAL ORDERABLES Final Result Performing Organization Address [facility] Co de Phone Number [facility] [address] [place] [phone] * Creatinine, Serum (04/04/2025 2:21 PM EDT) Creatinine, Serum 0.78 0.5 - 1.4 mg/dL [facility] Estimated Glomerular Filt Rate >60 [facility] Comment:Chronic Kidney Disea se: Estimated GFR < 60 mL/min/1.74f1Fctneo Kidney Disease: Estimated GFR < 15 mL/min/1.73m2 Blood Venous blood specimen / Unknown 04/04/2025 2:21 PM EDT 04/04/2025 2:21 PM EDT us Jaleel Block MD LAB BLOOD ORDERABLES Final Resul t Performing Organization Address [facility] Co de Phone Number [facility] [address] [place] [phone] * BUN (Blood Urea Nitrogen) (04/04/2025 2:21 PM EDT) Urea Nitrogen (BUN) 11 9 - 16 mg/dL [facility] Blood Venous blood specimen / Unknown 04/04/2025 2:21 PM EDT 04/04/2025 2:21 PM EDT us Jaleel Block MD LAB BLOOD ORDERABLES Final Resul t Performing Organization Address [facility] Co de Phone Number [facility] [address] [place] [phone] * (ABNORMAL) Comprehensive Metabolic Panel, Fasting (03/10/2025 11:57 AM EDT) Sodium 139 135 - 145 mmol/L [facility] Potassium 4.0 3.3 - 5.1 mmol/L [facility] Chloride 107 96 - 108 mmol/L [facility] Carbon Dioxide 26 22 - 29 mmol/L [facility] Anion Gap 10(L) 12 - 20 [facility] Urea Nitrogen (BUN) 11 9 - 16 mg/dL [facility] Creatinine, Serum 0.77 0.5 - 1.4 mg/dL [facility] Creatinine Clr Calc Pharmacy 73.6 [facility] Comment:Provided height and weight: 167.64 cm,67.7 kg.eGFR (calculated from the MDRD study equation) and eCrCl(calculated from the Cockcroft-Gault equation) are based ondifferent parameters and may not yield comparable results.If eCrCl result is absurd, please check patient'sheight/weight. Estimated Glomerular Filt Rate >60 [facility] Comment:Chronic Kidney Disea se: Estimated GFR < 60 mL/min/1.02x5Ibvgqg Kidney Disease: Estimated GFR < 15 mL/min/1.73m2 Glucose Fasting 95 60 - 99 mg/dL [facility] Calcium 8.9 8.4 - 10.2 mg/dL [facility] Bilirubin, Total 0.8 0.0 - 1.0 mg/dL [facility] Aspartate Amino Transferase 27 5 - 31 U/L [facility] Alanine Aminotransferase 29 0 - 31 U/L [facility] Total Protein 7.1 6.5 - 8.0 g/dL [facility] Albumin Level 4.2 3.5 - 5.0 g/dL [facility] Alkaline Phosphatase 100 39 - 117 U/L [facility] 03/10/2025 11:5 7 AM EDT 03/10/2025 12:00 PM EDT us Generic External Data Provider LAB BLOOD ORDERAB LES Final Result [facility] [address] [place] [phone] * Magnesium (03/10/2025 11:57 AM EDT) Magnesium 2.3 1.6 - 2.6 mg/dL [facility] 03/10/2025 11:5 7 AM EDT 03/10/2025 12:00 PM EDT us Generic External Data Provider LAB BLOOD ORDERAB LES Final Result Performing Organization Address [facility] Co de Phone Number [facility] [address] [place] [phone] * XR Hip left with Pelvis 1 view (02/24/2025 12:58 PM EDT) Anatomical Region Laterality Modality Lower Extremities, Hip Bilateral Radiograp hic Imaging 02/24/2025 12:5 8 PM EDT Narrative 02/24/2025 12:59 PM EDT [address] [address] XRay Report Signed Patient: Laura Graham MR#: [id number] 27 : 1965 Acct:[id number] Age/Sex: 60 / F ADM Date: 02/24/25 Loc: HO.ED Attending Dr: Ordering Physician: Garth Pedersen Date of Service: 02/24/25 Procedure(s): XR hip LT w PEL1V Accession Number(s): [id number] cc: Garth Pedersen; MICHAEL YANEZ NP CLINICAL HISTORY: fall Exam: AP pelvis with AP and frog-leg lateral views of the left hip. Comparison: CT/NH/SR - CT ABDOMEN PELVIS WO IV CON [...] in OV> 02/24/25 1259 DD/ 1258 TD/TT: 02/24/251257 Senior Specialist: Procedure Note Donotclaudiainterpreter, Image - 02/24/[address] [address] XRay Report Signed Patient: Aleksandar Graham#: [id number] 27 : 1965Acct:[id number] Age/Sex: 60 / FADM Date: 02/24/25 Loc: HO.ED Attending Dr: Ordering Physician: Garth Pedersen Date of Service: 02/24/25 Procedure(s): XR hip LT w PEL1V Accession Number(s): [id number] cc: Garth Pedersen; MICHAEL YANEZ NP CLINICAL HISTORY: fall Exam: AP pelvis with AP and frog-leg lateral views of the left hip. Comparison: CT/NH/SR - CT ABDOMEN PELVIS WO IV CON [...] in OV> 02/24/25 1259 DD/ 1258 TD/TT: 02/24/251257 Senior Specialist: [facility] External Provider IMG XR PROCEDURES Final Result * XR Shoulder 2+ Views Left (02/24/2025 12:58 PM EDT) Anatomical Region Laterality Modality Upper Extremities, Shoulder Left Radi ographic Imaging 02/24/2025 12:5 8 PM EDT Narrative 02/24/2025 12:59 PM EDT [address] [address] XRay Report Signed Patient: Laura Graham MR#: [id number] 27 : 1965 Acct:[id number] Age/Sex: 60 / F ADM Date: 02/24/25 Loc: HO.ED Attending Dr: Ordering Physician: Garth Pedersen Date of Service: 02/24/25 Procedure(s): XR shoulder LT min 2V Accession Number(s): [id number] cc: Garth Pedersen; MICHAEL YANEZ NP CLINICAL [...] 02/24/25 1259 DD/ 1258 TD/TT: 02/24/25 1258 Senior Specialist: Procedure Note Donotuseinterpreter, Image - 02/24/[address] [address] XRay Report Signed Patient: Paz GrahamR#: [id number] 27 : 1965Acct:[id number] Age/Sex: 60 / FADM Date: 02/24/25 Loc: HO.ED Attending Dr: Ordering Physician: Garth Pedersen Date of Service: 02/24/25 Procedure(s): XR shoulder LT min 2V Accession Number(s): [id number] cc: Garth Pedersen; MICHAEL YANEZ NP CLINICAL [...] 02/24/25 1259 DD/ 1258 TD/TT: 02/24/25 1258 Senior Specialist: us [facility] External Provider IMG XR PROCEDURES Final Result * XR Knee 4+ Views Left (02/24/2025 12:55 PM EDT) Anatomical Region Laterality Modality Lower Extremities, Knee Left Radiogra phic Imaging 02/24/2025 12:5 5 PM EDT Narrative 02/24/2025 12:57 PM EDT [place] [address] XRay Report Signed Patient: Laura Graham MR#: [id number] 27 : 1965 Acct:[id number] Age/Sex: 60 / F ADM Date: 02/24/25 Loc: .ED Attending Dr: Ordering Physician: Garth Pedersen Date of Service: 02/24/25 Procedure(s): XR knee LT 4V Accession Number(s): [id number] cc: Garth Pedersen; MICHAEL YANEZ NP CLINICAL [...] 02/24/25 1257 DD/ 1255 TD/TT: 02/24/25 125 Senior Specialist: Procedure Note Miguelinater, Image - 06/28/[address] [place] [address] XRay Report Signed Patient: Paz GrahamR#: [id number] 27 : 1965Acct:[id number] Age/Sex: 60 / FADM Date: 02/24/25 Loc: HO.ED Attending Dr: Ordering Physician: Garth Pedersen Date of Service: 02/24/25 Procedure(s): XR knee LT 4V Accession Number(s): [id number] cc: Garth Pedersen; MICHAEL YANEZ NP CLINICAL HISTORY: fall Exam: AP, lateral, and oblique views of the left knee. Comparison: None provided. Findings: Bony alignment is anatomic. No fracture or joint effusion. Joint spaces are well preserved. Impression: No fracture. This document has been electronically signed by: Hoang Rapp MD on 02/24/2025 12:55:48 Dictated By: Honag Rapp MD Signed By: <Electronically signed by Hoang Rapp MD in OV> 02/24/25 1257 DD/ 1255 TD/TT: 02/24/25 1255 Senior Specialist: [facility] External Provider IMG XR PROCEDURES Final Result * BI Mammogram Screening Tomosynthesis Bilateral (02/05/2025 12:34 PM EDT) Anatomical Region Laterality Modality Breast Bilateral Mammography 02/05/2025 12:3 4 PM EDT Narrative 02/12/2025 2:54 PM EDT [facility] [address] [place] [address] Mammography Report Signed Patient: Laura Graham MR#: [id number] 27 : 1965 Acct:[id number] Age/Sex: 60 / F ADM Date: 02/05/25 Loc: HO.MAMMO Attending Dr: Alex Machuca MD Ordering Physician: Alex Machuca MD Results: 2Benign Findings Date of Service: 02/05/25 Follow Up: 1 Year From Orig inal Mammogram Procedure(s): MM tomosynthesis screening BI Accession Number(s): [id number] cc: MICHAEL YANEZ NP; Alex Machuca MD [...] 02/12/25 1451 DD/ 1234 TD/TT: 02/05/25 1248 Senior Specialist: Procedure Note Donotuseinterpreter, Image - 02/12/2025 [facility] [address] [place] [address] Mammography Report Signed Patient: Aleksandar Graham#: [id number] 27 : 1965Acct:[id number] Age/Sex: 60 / FADM Date: 02/05/25 Loc: HO.MAMMO Attending Dr: Alex Machuca MD Ordering Physician: Alex Machuca MDResults: 2Benign Findings Date of Service: 02/05/25Follow Up: 1 Year From Orig inal Mammogram Procedure(s): MM tomosynthesis screening BI Accession Number(s): [id number] cc: MICHAEL YANEZ NP; Alex Machuca MD [...] 02/12/25 1451 DD/ 1234 TD/TT: 02/05/25 1248 Senior Specialist: [facility] External Provider IMG BI PROCEDURES Final Result * (ABNORMAL) Lipid Panel, Standard (08/25/2024 10:00 AM EST) Triglycerides 61 <150 mg/dL [facility] Comment:Desirable Triglyceri de: less than 150 mg/dLBorderline High Triglyceride 150-199 mg/dLHigh Triglyceride: 200-499 mg/dLVery High Triglyceride: greater than or equal to 5OO mg/dL Cholesterol 173 <200 mg/dL [facility] Comment:Desirable Cholestero l: less than 200 mg/dLBorderline High Cholesterol: 200-239 mg/dLHigh Cholesterol: greater than 239 mg/dL LDL Cholesterol Calculated 105(H) <100 mg/dL [facility] Comment:Desirable LDL: less than 100 mg/dLNear Optimal/Above Optimal LDL: 110- 129 mg/dLBorderline High LDL: 130-159 mg/dLHigh LDL: 160-189 mg/dLVery High LDL: greater than or equal to 190 mg/dL HDL Cholesterol 56 >40 mg/dL [facility] Comment:Desirable HDL: great er than 40 mg/dL Note: This HDL assay may give artificially low results in patients with liver disease. 08/25/2024 10:0 0 AM EST 08/25/2024 11:37 AM EST Michael Yanez [employer] [facility] LAB BLOOD ORDERABLES Final Resul t Performing Organization Address City/[facility]/ZIP Co de Phone Number [facility] [address] [place] [phone] * HIV-1/2 Antigen and Antibodies, Fourth Generation, with Reflexes (01/04/2024 9:49 AM EDT) Pathologist [facility] HIV AB/AG Nonreactive Nonreactive [facility] Comment:HIV-1 p24 Ag and/or HIV-1/HIV-2 Ab not detected.A test result that is nonreactive does not exclude thepossibility of exposure to or infection with HIV-1 and/orHIV-2. Nonreactive results in this assay for individualswith prior exposure to HIV-1 and/or HIV-2 may be due toantigen and antibody levels that are below the limit ofdetection of this assay.The [employer] HIV Ag/Ab Combo assay result andsupplemental assay results should be interpreted inconjunction with the patient's clinical presentation,history and other laboratory results. If the results areinconsistent with clinical evidence, additional testing issuggested to confirm the result. Blood Venous blood specimen / Unknown 01/04/2024 9:49 AM EDT 01/04/2024 11:50 AM EDT Michael Yanez [facility] LAB BLOOD ORDERABLES Final Resul t Performing Organization Address City/[facility]/ZIP Co de Phone Number [facility] [address] [place] [phone] * Hepatitis C Ab (09/09/2022 10:23 AM EST) Hepatitis C Antibody Nonreactive Nonreactive [facility] Comment:Antibodies to HCV no t detected; does not exclude early acuteHCV infection. 09/09/2022 10:2 3 AM EST 09/09/2022 10:23 AM EST [facility] External Provider LAB BLO OD ORDERABLES Final Result [facility] [address] [place] [phone] * Hm Colonoscopy (07/08/2021 12:15 PM EST) Colonoscopy Normal Normal Fidencio Vila MD HEALTH MAINTENANCE Edited Re sult - Final from Last 3 Months or Most Recently Relevant to Health Maintenance Insurance [facility] STAND ADULT [employer] Care Teams Bench Press Operator Relationship Specialty Start Date End Date Michael Yanez ANP [address] [place] [phone] PCP - General Family Medicine 01/16/20 Abel Chavarria RN [address] [place] [address] Registered Nurse Family Medicine 02/26/25 Margareth Chavarria 02/26/25
--- OUTSIDE RECORDS SUMMARY | 2025-05-09 00:27 | XMS_ITS | Encounter Summary ---
Author Organization [employer] Address [address] [place] [address] Street [address] [place] [address] Care Team Providers Care Senior Tableau Developer Name Role Phone Nupur Weir Primary Care Provider [phone] Abel Chavarria RN Unavailable [phone] Margareth Chavarria Unavailable Reason for Visit * Reason Onset Date Comments Med Refill 05/08/2025 Encounter Details Date Type Department Care Team ([facility] st Contact Info) Description 05/08/2025 Refill [facility] [address] [place] [address] Kassy Ramsey, RN [address] [place] [address] Long-term current use of opiate analgesic; Back pain, unspecified back location, unspecified back pain laterality, unspecified chronicity Social History Tobacco Use Types Packs/Day Years [...] Description 05/15/2025 9:15 AM EDT Office Visit [facility] [address] [place] [phone] Nupur Weir, ANP [address] [place] [address] 06/12/2025 9:45 AM EDT Office Visit [facility] [address] [place] [address] 09/28/2025 9:30 AM EST Medication Management [facility] [address] [place] [address] Fay Leigh, MayoD [address] [place] [address] documented as of this encounter Visit Diagnoses Diagnosis Long-term current use of opiate analgesic Encounter for long-term (current) use of other medications Back pain, unspecified back location, unspecified back pain laterality, unspecified chronicity documented in this encounter Additional Health Concerns Assessment Noted Time PHQ-9 Depression Total Score: 17 04/12/ 025 10:08 AM EDT documented as of this encounter Care Teams Senior Tableau Developer Relationship Specialty Start Date End Date Nupur Weir ANP [address] [place] [address] PCP - General Family Medicine 01/16/20 Abel Chavarria RN [address] [place] [address] Registered Nurse Family Medicine 02/26/25 Margareth Chavarria 02/26/25 documented as of this encounter
--- OUTSIDE RECORDS SUMMARY | 2025-05-09 00:27 | XMS_ITS | Encounter Summary ---
Author Organization [employer] Address [address] [place] [address] Street [address] [place] [address] Care Team Providers Care Manager Loss Prevention Name Role Phone Nupur Weir Primary Care Provider [phone] Abel Chavarria RN Unavailable [phone] Margareth Chavarria Unavailable Reason for Visit * Reason Comments Med Refill Encounter Details Date Type Department Care Team (Late st Contact Info) Description 12/22/2024 Refill [facility] [address] [place] [address] Nupur Weir ANP [address] [place] [address] Arthralgia, unspecified joint Social History Tobacco Use [...] t he electric, gas, oil or water [employer] threatened to shut off services in your [...] Description 05/15/2025 9:15 AM EDT Office Visit [facility] [address] [place] [address] Nupur Weir ANP [address] [place] [address] 06/12/2025 9:45 AM EDT Office Visit [address] [address] 09/28/2025 9:30 AM EST Medication Management [address] [address] Fay Leigh, MayoD [address] [place] [address] documented as of this encounter Visit Diagnoses Diagnosis Arthralgia, unspecified joint documented in this encounter Care Teams Manager Loss Prevention Relationship Specialty Start Date End Date Nupur Weir ANP [address] [place] [address] PCP - General Family Medicine 01/16/20 Abel Chavarria, ILENE [address] [place] [address] Registered Nurse Family Medicine 02/26/25 Margareth Chavarria 02/26/25 documented as of this encounter
--- OUTSIDE RECORDS SUMMARY | 2025-05-09 00:27 | XMS_ITS | Encounter Summary ---
Author Organization [employer] Address [address] [place] [address] [address]t [place] [address] Care Team Providers Care Reinforcing Steel Worker Name Role Phone Nupur Weir Primary Care Provider [phone] Abel Chavarria RN Unavailable [phone] Margareth Chavarria Unavailable Reason for Visit * Reason Onset Date Comments Med Refill 05/14/2023 Encounter Details Date Type Department Care Team (Late st Contact Info) Description 05/14/2023 Telephone [facility] [address] [place] [address] Nupur Weir ANP [address] [place], [place] [phone] Med Refill Social History Tobacco Use Types [...] Description 05/15/2025 9:15 AM EDT Office Visit [address] [address] Nupur Weir ANP [address] [place] [address] 06/12/2025 9:45 AM EDT Office Visit [address] [address] 09/28/2025 9:30 AM EST Medication Management [address] [address] Fay Leigh PharmD [address] [place] [address] documented as of this encounter Visit Diagnoses Not on filedocumented in this encounter Care Teams Reinforcing Steel Worker Relationship Specialty Start Date End Date Nupur Weir ANP [address] [place] [address] PCP - General Family Medicine 01/16/20 Abel Chavarria, ILENE [address] [place] [address] Registered Nurse Family Medicine 02/26/25 Margareth Chavarria 02/26/25 documented as of this encounter
--- OUTSIDE RECORDS SUMMARY | 2025-05-09 00:27 | XMS_ITS ---
Author Organization [employer] Address [address] [place] [address] [address] [place] [address] Care Team Providers Care Freight Hustler Name Role Phone Nupur Weir Primary Care Provider [phone] Abel Chavarria RN Unavailable [phone] Margareth Chavarria Unavailable [facility] Status:Enrolled (Active) Start date:02/26/2025 Enrollment date:03/15/2025 Enrollment reason:ADT Feed Overview ED- Pt went to [facility] ED on 02/24/25. Please outreach for enrollment. [place] Case Team Name Relationship Phone Margareth Chavarria(Responsible Staff) [phone] Continued Care and Services Coordination
--- OUTSIDE RECORDS SUMMARY | 2025-05-09 00:28 | XMS_ITS | Encounter Summary ---
Author Organization [employer] Address [address] [place] [address] Care Team Providers Care Slope Runner Name Role Phone Nupur Weir Primary Care Provider [phone] Abel Chavarria RN Unavailable [phone] Margareth Chavarria Unavailable Encounter Details Date Type Department Care Team (Late st Contact Info) Description 04/05/2025 Orders Only [facility] [address] [place] [address] Jaleel Block MD [address] [place] [address] Right-sided chest pain (Primary Dx); Hemoptysis Social [...] Description 05/15/2025 9:15 AM EDT Office Visit [address] [address] Nupur Weir, ANP [address] [place] [address] 06/12/2025 9:45 AM EDT Office Visit [address] [address] 09/28/2025 9:30 AM EST Medication Management [address] [address] Fay Leigh, MayoD [address] [place] [address] documented as of this encounter Procedures Procedure Name Priority Date/Time Associated Diagnosis Comments CULTURE, URINE, ROUTINE Routine 04/05/2025 12:00 AM EDT Right-sided chest pain documented in this encounter Results * Culture, Urine, Routine (04/05/2025 12:00 AM EDT) Urine Urine specimen obtained by clean catch procedure / Unknown 04/05/2025 04/05/2025 Comment:[facility] - 04/06/2025 10:53 AM EDT Urine Culture No growth. Specimen Source: Urine clean catch us Generic External Data Provider LAB MICROBIOLOGY - GENERAL ORDERABLES Final Result Performing Organization Address City/State/[facility] Co de Phone Number [facility] [address] [place] [address] [phone] documented in this encounter Visit Diagnoses Diagnosis Right-sided chest pain- Primary Hemoptysis documented in this encounter Additional Health Concerns Assessment Noted Time PHQ-9 Depression Total Score: 7 03/15/20 25 3:29 PM EDT documented as of this encounter Care Teams Slope Runner Relationship Specialty Start Date End Date Nupur Weir ANP [address] [place] [address] PCP - General Family Medicine 01/16/20 Abel Chavarria, ILENE [address] [place] [address] Registered Nurse Family Medicine 02/26/25 Margareth Chavarria 02/26/25 documented as of this encounter
--- OUTSIDE RECORDS SUMMARY | 2025-05-09 00:28 | XMS_ITS | Encounter Summary ---
Author Organization [employer] Address [address] [place] [address] Care Team Providers Care Firm Administrator Name Role Phone Nupur Weir Primary Care Provider [phone] Abel Chavarria RN Unavailable [phone] Margareth Chavarria Unavailable Reason for Visit * Reason Comments Med Refill Encounter Details Date Type Department Care Team (Late st Contact Info) Description 03/11/2025 Refill [facility] [address] [place] [address] Nupur Weir ANP [address] [place] [address] Arthralgia, unspecified joint Social History Tobacco Use [...] Description 05/15/2025 9:15 AM EDT Office Visit [address] [address] Nupur Weir, ANP [address] [place] [address] 06/12/2025 9:45 AM EDT Office Visit [address] [address] 09/28/2025 9:30 AM EST Medication Management [address] [address] Fay Leigh, MayoD [address] [place] [address] documented as of this encounter Visit Diagnoses Diagnosis Arthralgia, unspecified joint documented in this encounter Care Teams Firm Administrator Relationship Specialty Start Date End Date Nupur Weir ANP [address] [place] [address] PCP - General Family Medicine 01/16/20 Abel Chavarria RN [address] [place] [address] Registered Nurse Family Medicine 02/26/25 Margareth Chavarria 02/26/25 documented as of this encounter
--- OUTSIDE RECORDS SUMMARY | 2025-05-09 00:28 | XMS_ITS | Patient Health Record ---
Author Organization [facility] Address [address] [place] [address] Care Team Providers Care Garnett Machine Operator Name Role Phone MICHAEL YANEZ N.P. Primary Care Provider Fidencio Langley Jr Unavailable Allergies Allergen (clinical drug ingredient) Drug/Non Drug Allergy documented on EMR Reaction Allergy Type Onset Date Status fentanyl fentaNYL Unknown Drug Allergy Active Results Component Value Reference Range Notes Complete Blood Count Auto Di ff Reviewed date:07/17/2024 08:00:34 AM Interpretation: Performing Lab:[facility] [place], [address] [place] [phone] Notes/Report: White Blood Count 5.3 4.8-10.8 X10*3/uL [...] Panel Reviewed date:07/17/2024 08:00:27 AM Interpretation: Performing Lab:[facility] [place], [address] [place] [phone] Notes/Report: Bilirubin Total 0.7 0.0-1.0 mg/dL Bilirubin Direct 0.3 0.0-0.5 mg/dL Aspartate Amino Transferase 21 5-31 U/L Alanine Aminotransferase 17 0-31 U/L Total Protein 6.4 6.5-8.0 g/dL Albumin Level 3.7 3.5-5.0 g/dL Alkaline Phosphatase 104 39-117 U/L Lipase Reviewed date:07/17/2024 08:00:21 AM Interpretation: Performing Lab:[facility] [place], [address] [place] [phone] Notes/Report: Lipase 14 8-78 U/L Thyroid Stimulating Hormone Reviewed date:07/17/2024 08:00:15 AM Interpretation: Performing Lab:[facility] [place], [address] [place] [phone] Notes/Report: Thyroid Stimulating Hormone 0.97 0.32-4.0 uIU/ [...] Problem Status W/U Status Risk Notes Problem 437187594 Colon cancer screening (Z12.11) Active confirmed Problem 69800023 Rectal bleeding (K62.5) Active confirmed Problem 13222713 Epigastric pain (R10.13) Active confirmed Problem Dysphagia (52647795) Dysphagia (R13.10) Active confirmed Problem 770064186 Elevated LFTs (R79.89) Active confirmed Problem 669413277 Gastroesophageal reflux disease without esophagitis (K21.9) Active confirmed Problem 01569174 Dysphagia, unspecified type (R13.10) Active confirmed Vital Signs Blood pressure diastolic 00 mm Hg 07/14/2024 Height 64.5 in 07/14/2024 Blood pressure systolic 00 mm Hg 07/14/2024 Weight 153 lbs 07/14/2024 BMI 25.85 kg/m2 07/14/2024 Encounters Encounter Location Date Provider Diagnosis [facility] [address] [place] [phone] 07/14/2024 Fidencio Vila Jr Abdominal cramping R10.9 [facility] [address] [place] [phone] 07/17/2024 Fidencio Vila Jr Assessments Encounter Date [...] Appt Details Provider Name:Fidencio Lori haider , 07/18/2025 11:20:00 AM, [address] [place] [address], [address], [place], [address], Insurance Providers Payer Name Payer Address Payer Phone Subscriber Number Group Number Insured Name Patient Relationship to Insured Coverage Start Date Coverage End Date [facility] [address] [place] [address] [phone] [id number] TAY TYLER Self - patient is the [...] partial hysterectomy tonsillectomy cancer in uterus [phone] Laparoscopic bypass surgery 11/14 removed two cyst removed fro m right shouder and outer colon =dr. jones
--- OUTSIDE RECORDS SUMMARY | 2025-05-09 00:28 | XMS_ITS | Encounter Summary ---
Author Organization [employer] Address [address] [place] [address] Street 7t [place] [address] Care Team Providers Care Translation Director Name Role Phone Nupur Weir Primary Care Provider [phone] Abel Chavarria RN Unavailable [phone] Margareth Chavarria Unavailable Reason for Visit * Reason Onset Date Comments Med Refill 01/19/2025 Encounter Details Date Type Department Care Team ([facility] st Contact Info) Description 01/19/2025 Telephone [facility] [address] [place] [address] Nupur Weir ANP 230 [place] [address] Med Refill Social History Tobacco Use Types [...] t he electric, gas, oil or water [employer] threatened to shut off services in your [...] 50 MG tablet To be sent to: [facility] pharmacy documented in this encounter Plan of Treatment Upcoming Encounters Date Type Department Care Team (Late st Contact Info) Description 05/15/2025 9:15 AM EDT Office Visit [facility] [address] [place] [address] Nupur Weir ANP [address] [place] [address] 06/12/2025 9:45 AM EDT Office Visit [facility] [address] [place] [address] 09/28/2025 9:30 AM EST Medication Management [facility] [address] [place] [address] Fay Leigh, PharmD [address] [place] [address] documented as of this encounter Visit Diagnoses Not on filedocumented in this encounter Care Teams Translation Director Relationship Specialty Start Date End Date Nupur Weir ANP [address] [place] [address] PCP - General Family Medicine 01/16/20 Abel Chavarria, ILENE [address] [place] [address] Registered Nurse Family Medicine 02/26/25 Margareth Chavarria 02/26/25 documented as of this encounter
--- OUTSIDE RECORDS SUMMARY | 2025-05-09 00:28 | XMS_ITS | Encounter Summary ---
Author Organization [email or web address] Address [address] [place] [address] Street 7t [place] [address] Care Team Providers Care Sandwich Hand Name Role Phone Nupur Weir Primary Care Provider Abel Chavarria RN Unavailable Margareth Chavarria Unavailable Reason for Visit * Reason Onset Date Comments Med Refill 07/26/2024 Encounter Details Date Type Department Care Team ([facility] st Contact Info) Description 07/26/2024 Telephone [facility] [address] [place] [address] Nupur Weir ANP [address] [place] [address] Med Refill Social History Tobacco Use Types [...] the past 12 months, has t he [employer], gas, oil or water [employer] threatened to shut off services in your [...] 50 MG tablet To be sent to: [id number] [place], [place] - [address] [facility] documented in this encounter Plan of Treatment Upcoming Encounters Date Type Department Care Team (Late st Contact Info) Description 05/15/2025 9:15 AM EDT Office Visit [facility] [address] [place] [address] Nupur Weir ANP [address] [place] [address] 06/12/2025 9:45 AM EDT Office Visit [address] [address] 09/28/2025 9:30 AM EST Medication Management [address] [address] Fay Leigh, PharmD [address] [place] [address] documented as of this encounter Visit Diagnoses Not on filedocumented in this encounter Care Teams Sandwich Hand Relationship Specialty Start Date End Date Nupur Weir ANP [address] [place] [address] PCP - General Family Medicine 01/16/20 Abel Chavarria, ILENE [address] [place] [address] Registered Nurse Family Medicine 02/26/25 Margareth Chavarria 02/26/25 documented as of this encounter
[2025-05-09 01:12] VITALS: BP 120/61; PULSE 82; RESP 16; TEMP 36.6; O2SAT 100
== END 2025-05-09 01:12 | disposition home or self-care (01) ==
PROVIDERS: Emergency Provider Emergency Medicine; PCP Nurse Practitioner Primary Care
DX: S81.851A Open bite, right lower leg, initial encounter (principal); W55.01XA Bitten by cat, initial encounter; Y93.9 Activity, unspecified; Y92.9 Unspecified place or not applicable; Y99.9 Unspecified external cause status
CPT/HCPCS: 99283; 99284

== ENCOUNTER 2025-05-13 08:59 | Emergency (ER) | payer MEDICAID, SELFPAY ==
--- OUTSIDE RECORDS SUMMARY | 2025-05-08 09:45 | XMS_ITS | Encounter Summary ---
Author Organization [employer] Address [address] 7t [place] [address] Care Team Providers Care Freight Brakeman Name Role Phone Nupur Weir Primary Care Provider [phone] Abel Chavarria RN Unavailable [phone] Margareth Chavarria Unavailable Encounter Details Date Type Department Care Team (Late st Contact Info) Description 05/08/2025 9:45 AM EDT Office Visit [facility] MEDICINE [address] [place] [address] Anushka Gunter, WOMEN'S GARMENT FITTER [address] [place] [address] Lumbar spondylosis (Primary Dx); Long-term current use of opiate analgesic Social History Tobacco Use Types Packs/Day Years [...] as of this encounter Progress Notes * Anushka Gunter, WOMEN'S GARMENT FITTER - 05/08/2025 9:45 AM EDT Subjective: Laura Graham is a 60 y.o. female w/ PMH hypertension, HLD, IBS, GERD, anemia, anxiety, insomnia, PETER, and chronic low back pain, who presents to the office for - Chronic Pain Clinic Group visits. Initial Group visit: 04/10/25 Group Topic: Stretching Presenter: Donna Amaral RN Chronic Pain History: Associated Diagnosis: chronic low back pain, arthralgia Relevant Imaging: Lumbar XR 08/30/24: moderate degenerative changes within the lumbar spine most pronounced at L5-S1. Current pharm tx: tramadol 50mg Q8H PRN. Also has tried iburpofen, APAP, meloxicam Medication: States taking medication as prescribed. Non-pharm tx: Related Specialists: previously tried chiropractic but did not find helpful Functional Goals: Review of Systems Constitutional: Negative for chills and fever. Respiratory: Negative for wheezing. Cardiovascular: Negative for chest pain and palpitations. Gastrointestinal: Negative for diarrhea and vomiting. Musculoskeletal: Positive for arthralgias. Physical Exam Constitutional: Appearance: Normal appearance. Pulmonary: Effort: Pulmonary effort is normal. Neurological: Mental Status: She is alert and oriented to person, place, and time. Psychiatric: Mood and Affect: Mood normal. Behavior: Behavior normal. Problem List Items Addressed This Visit Mental Health Long-term current use of opiate analgesic Overview Medication: Tramadol 50mg Q8H PRN Indication: arthralgia, lumbar spondylosis Last RN CORRECTIONS Agreement: 12/01/24 Gathering Worker tier 2 q 3 mo Current Assessment & Plan Timeline: - 05/08/25: Group - utox/pill count as expected Relevant Orders POCT MERY-14 Urine Drug Screen (Completed) Neuro Lumbar spondylosis - Primary Current Assessment & Plan Chronic low back pain, XR Lumbar spine Aug 2024 demonstrates moderate degenerative changes in the lumbar spine most pronounced at L5-S1 Good engagement and participation with Group Medical Visit model Encouraged multifactorial approach to pain control including pharm and non-pharm modalities Pill count and UTOX as expected Follow up: 1-3 months for Group Chronic Pain Clinic. Follow up as scheduled with PCP, sooner as needed. * Kassy Ramsey RN - 05/08/2025 9:45 AM EDT .RN CORRECTIONS newspaper stuffer: PDMP reviewed today. Last fill date: 04/23/25 (Tramadol 50mg tid) count was (0), anticipated (0) to be remaining. .UTOX completed. Negative for AMP, BAR, BUP, BZO, ADOLFO, FTY, MDMA, MET, MOP, MTD, OXY, PCP, TCA, THC. UTOX as expected. .BPI updated today. Pain severity score of (7), activity interference score of (6). Previous BPI completed (12/01/24) with pain severity score of (7), activity interference score of (6). documented in this encounter Miscellaneous Notes * Assessment & Plan Note - KYLER Henson - 05/08/2025 12:44 PM EDT Associated Problem(s): Long-term current use of opiate analgesic Timeline: - 05/08/25: Group - utox/pill count as expected * Assessment & Plan Note - KYLER Henson - 05/08/2025 12:44 PM EDT Associated Problem(s): Lumbar spondylosis Chronic low back pain, XR Lumbar spine Aug 2024 demonstrates moderate degenerative changes in the lumbar spine most pronounced at L5-S1 Good engagement and participation with Group Medical Visit model Encouraged multifactorial approach to pain control including pharm and non-pharm modalities Pill count and UTOX as expected documented in this encounter Plan of Treatment Upcoming Encounters Date Type Department Care Team (Late st Contact Info) Description 05/15/2025 9:15 AM EDT Office Visit [facility] MEDICINE [address] [place] [address] Nupur Weir ANP [address] [place] [address] 06/12/2025 9:45 AM EDT Office Visit [address] [address] 09/28/2025 9:30 AM EST Medication Management [facility] MEDICINE [address] [place] [address] PaulsFay Hallman, PharmD [address] [place] [address] documented as of this encounter Procedures Procedure Name Priority Date/Time Associated Diagnosis Comments POCT MERY-14 URINE DRUG SCREEN Routine 05/08/2025 10:33 AM EDT Long-term current use of opiate analgesic documented in this encounter Results * POCT MERY-14 Urine Drug Screen (05/08/2025 10:33 AM EDT) THC Negative Negative Cocaine Screen, Urine Negative Negative Opiate Screen, Urine Negative Negative Methamphetamine Screen Urine Negative Negative Amphetamine Screen, Urine Negative Negative Benzodiazepines Screen, Urine Negative Negative Barbiturate Screen, Urine Negative Negative Methadone Screen, Urine Negative Negative Buprenophine Screen, Urine Negative Negative TCA, Urine Negative Negative MDMA Urine Negative Negative ng/mL Oxycodone Screen, Urine Negative Negative Phencyclidine (PCP), Urine Negative Negative Propoxyphene, Urine Negative Negative Fentanyl, Urine Negative Negative Urine Urine specimen obtained by clean catch procedure / Unknown 05/08/2025 10:33 AM EDT Narrative Kassy Ramsey RN - 05/08/2025 10:33 AM EDT .UTOX cup Lot#[id number] Exp. 06/05/26 Internal Pass Control us Nupur RENAE POINT OF CARE TEST ENTER/EDIT OR DERABLES Final Result documented in this encounter Visit Diagnoses Diagnosis Lumbar spondylosis- Primary Lumbosacral spondylosis without myelopathy Long-term current use of opiate analgesic Encounter for long-term (current) use of other medications documented in this encounter Additional Health Concerns Assessment Noted Time PHQ-9 Depression Total Score: 17 025 10:08 AM EDT documented as of this encounter Care Teams Freight Brakeman Relationship Specialty Start Date End Date Nupur Weir ANP [address] [place] [address] PCP - General Family Medicine 01/16/20 Abel Chavarria, RN [address] [place] [address] Registered Nurse Family Medicine 02/26/25 Margareth Chavarria 02/26/25 documented as of this encounter
--- OUTSIDE RECORDS SUMMARY | 2025-05-09 17:40 | XMS_ITS | Encounter Summary ---
Author Organization [employer] Address [address] [place] [address] Care Team Providers Care Keeper Head Name Role Phone Nupur Weir Primary Care Provider [phone] Abel Chavarria RN Unavailable [phone] Margareth Chavarria Unavailable Encounter Details Date Type Department Care Team (Late st Contact Info) Description 05/09/2025 5:40 PM EDT Office Visit [facility] [address] [place] [address] Nupur Weir ANP [address] [place] [address] Cat bite, subsequent encounter (Primary Dx) Social History Tobacco Use Types [...] Access Q2 Not on file 02/26/2025 Comments No Sex and Gender Information Value Date Recorded Sex Assigned at Female 06/29/2022 10:16 AM EDT Legal Sex Female 10:16 AM EDT Gender Identity Female 06/29/2022 10:16 AM EDT Sexual Orientation Straight 06/29/2022 10 :16 AM EDT documented as of this encounter Last Filed Vital Signs Vital Sign Reading Time Taken Comments Blood Pressure 123/77 05/09/2025 5:12 PM EDT Pulse 70 05/09/2025 5:12 PM EDT Temperature 36.6 C (97.8 F) 05/09/2025 5:12 PM EDT Respiratory Rate 21 05/09/2025 5:12 PM EDT Oxygen Saturation 98% 05/09/2025 5:12 PM EDT Inhaled Oxygen Concentration - - Weight 66.2 kg (146 lb) 05/09/2025 5:12 PM EDT Height 165.1 cm (5' 5 ) 05/09/2025 5:12 PM EDT Body Mass Index 24.3 05/09/2025 5:12 PM EDT documented in this encounter Progress Notes * BATOOL Liang - 05/09/2025 5:40 PM EDT Images from the original note were not included. Subjective Patient ID: Laura Graham is a 60 y.o. female who presents for cat bite. HPI Pt well known to me Seen yesterday [facility] for same (see below) she was bitten yesterday on the right calf by a cat she has been watching in her home for 2 weeks. The cat is currently feeding 6 kittens and the patient has been watching her daily for the past 2 weeks the CAT appears healthy and has not left the home for the past 2 weeks. Bite occurred after 1 of the patient's own cats came by and she was trying to protect them. Over the past 24 hours redness and warmth has developed in the area no rigors night sweats or streaking up the leg Noted on exam portion SKIN: 3 distinct puncture wounds from bite wound in the right medial distal calf with erythema surrounding the area up to about the mid calf and ankle the area of erythema was outlined with my pen Was given 1 dose of amox-clav at ED and rx'd full 7d course to complete. She did not get abx as rx'd until 3pm today d/t error with e-prescribing. All set now and has meds. Reports pain in RLE w/ swelling and redness. No fever/chills. Non-smoker Review of Systems Constitutional: Negative for chills and fever. HENT: Negative for sore throat. Respiratory: Negative for cough and shortness of breath. Cardiovascular: Negative for chest pain. Gastrointestinal: Negative for constipation and diarrhea. Endocrine: Negative for polydipsia, polyphagia and polyuria. Genitourinary: Negative for dysuria. Musculoskeletal: Positive for arthralgias. Neurological: Negative for weakness. +RLE swelling, redness, warmth Objective BP 123/77 (BP Location: Left arm, Patient Position: Sitting, BP Cuff Size: Adult) Pulse70 Temp 97.8 ??F (36.6 ??C) (Temporal) Resp 21 Ht 5' 5 (1.651 m) Wt 146 lb (66.2 kg) SpO2 98% BMI 24.30 kg/m?? Physical Exam Vitals reviewed. Constitutional: General: She is not in acute distress. Appearance: Normal appearance. She is not ill-appearing. HENT: Head: Normocephalic and atraumatic. Eyes: General: No scleral icterus. Extraocular Movements: Extraocular movements intact. Pupils: Pupils are equal, round, and reactive to light. Cardiovascular: Rate and Rhythm: Normal rate and regular rhythm. Pulmonary: Effort: Pulmonary effort is normal. No accessory muscle usage or respiratory distress. Musculoskeletal: Legs: Comments: 3 puncture wounds, right medial distal calf with erythema surrounding the area up to about the mid calf and ankle, extends <1cm beyond pen outline on marroquin Neurological: Mental Status: She is alert and oriented to person, place, and time. Psychiatric: Mood and Affect: Mood normal. Behavior: Behavior normal. Assessment/Plan Diagnoses and all orders for this visit: Cat bite, subsequent encounter Other orders - Tdap vaccine greater than or equal to 7 years old IM Plan reinforced from ED, she will take abx today and as rx'd Reassured regarding rabies d/t cat having been quarantined at her house for 14d w no s/s of rabies,acting normally, just defensive when other house cats were near. Reviewed need to extend abx amox-clav if sx not resolved by Wednesday, she will RTC for any worsening sx incl worsening swelling, pain, redness, fever/chills From ED plan The cat has been within her home for the past 14 days with no chance that she has left. This is reassuring that the patient hasbeen observing the CAT without any signs symptoms to suggest that it was rabid. She and I discussed low likelihood of rabies exposure shared decision-making risks benefit discussion of rabies vaccination For this is likely an infected cat bite wound we will start Augmentin erythema was marked gave her strict return precautions. documented in this encounter Plan of Treatment Upcoming Encounters Date Type Department Care Team (Late st Contact Info) Description 05/15/2025 9:15 AM EDT Office Visit [address] [address] Nupur Weir ANP [address] [place] [address] 06/12/2025 9:45 AM EDT Office Visit [address] [address] 09/28/2025 9:30 AM EST Medication Management [address] [address] Fay Leigh, El[place] [address] [place] [address] documented as of this encounter Visit Diagnoses Diagnosis Cat bite, subsequent encounter- Primary documented in this encounter Additional Health Concerns Assessment Noted Time PHQ-9 Depression Total Score: 17 08/ 025 10:08 AM EDT documented as of this encounter Care Teams Keeper Head Relationship Specialty Start Date End Date Nupur Weir ANP [address] [place] [address] PCP - General Family Medicine 01/16/20 Abel Chavarria, ILENE [address] [place] [address] Registered Nurse Family Medicine 02/26/25 Margareth Chavarria 02/26/25 documented as of this encounter
[2025-05-13 09:02] VITALS: BP 117/57; PULSE 76; RESP 16; TEMP 36.1; O2SAT 98; BMI 24.4
--- NOTE | 2025-05-13 09:19 | ED.GENADULT ---
HPI - General Adult General Chief complaint: Animal Bite Stated complaint: cat bite, redness and swollen. unknown cat Time Seen by Provider: 05/13/25 09:19 Source: patient, RN notes reviewed and old records reviewed Mode of arrival: ambulatory Limitations: no limitations History of Present Illness ED Provider: Shraddha HPI narrative: Patient is a 60-year-old female presenting to the emergency department for evaluation of a cat bite. She was seen here on 05/09 and started on Augmentin, has taken more than half the course of antibiotics. States that at 1 point she noticed a pustule over the bite wound but that the pus did not drain externally, she is expressing concern that the pus ?went inside. ? Denies any fevers, chills, sweats. Area of erythema outlined on 05/09 by provider. Patient states she has been having erythema distal to the cat bite but not proximal. Concerned that the infection is not improving. MD complaint: wound check Related Data Home Medications ?Medication ?Instructions ?Recorded ?Confirmed diltiazem HCl 180 mg 180 mg PO DAILY 11/24/21 04/11/25 capsule,extended release 24 hr pantoprazole 40 mg tablet,delayed 40 mg PO DAILY 11/24/21 04/11/25 release losartan 50 mg tablet 50 mg PO DAILY blood pressure 11/24/22 04/11/25 levothyroxine 25 mcg tablet 25 mcg PO DAILY 01/08/23 04/11/25 riboflavin (vitamin B2) 100 mg 200 mg PO BID 01/08/23 04/11/25 tablet (Vitamin B-2) topiramate 50 mg tablet 100 mg PO BID 01/08/23 04/11/25 Previous Rx's ?Medication ?Instructions ?Recorded gabapentin 100 mg capsule 100 mg PO TID #270 caps 12/06/23 estradiol 0.01% (0.1 mg/gram) See Rx Instructions .Route 3XW 30 03/22/25 vaginal cream days #42.5 grams pyridoxine (vitamin B6) 100 mg 100 mg PO DAILY 90 days #90 tabs 03/22/25 tablet fosfomycin tromethamine 3 gram 3 g PO Q3D 9 days #3 ea 03/26/25 oral packet lidocaine 5 % topical patch 1 patch topical DAILY pain #30 ea 04/05/25 nitrofurantoin 100 mg PO Q12H 5 days #10 caps 04/05/25 monohydrate/macrocrystals 100 mg capsule (Macrobid) solifenacin 5 mg tablet (Vesicare) 5 mg PO DAILY 30 days #30 tabs 04/16/25 amoxicillin 875 mg-potassium 1 tab PO BID 7 days #14 tabs 05/09/25 clavulanate 125 mg tablet Allergies Allergy/AdvReac Type Severity Reaction Status Date / Time ondansetron (From ZOFRAN) Allergy Unknown per H&P Verified 05/13/25 09:03 sumatriptan (From IMITREX) Allergy Unknown RASH FROM Verified 05/13/25 09:03 TABLET NOT INJECTION promethazine (From PHENERGAN) AdvReac Severe DYSTONIA Verified 05/13/25 09:03 Review of Systems Review of Systems: As per HPI Yes all other systems are reviewed and are negative Constitutional: Constitutional: Reports as per HPI [facility] Past Medical History Medical History Well woman exam Epidermal cyst Migraine HTN (hypertension) IBS (irritable bowel syndrome) GERD (gastroesophageal reflux disease) Chronic interstitial cystitis Sleep apnea Asthma Anemia Hypercholesteremia Depression Anxiety Sacrococcygeal pilonidal cyst Recurrent UTI Goiter Flank pain Dysuria Hypercalciuria Swelling of joint, ankle, right Swelling of right foot Vitamin D deficiency Hypothyroidism Right patella fracture History of secondary hyperparathyroidism Abnormal mammogram Surgical History History of removal of cyst (~05/12/24) History of bladder surgery H/O bilateral salpingo-oophorectomy S/P gastric bypass H/O left breast biopsy H/O: hysterectomy History of bilateral tubal ligation History of appendectomy Family History Family History Mother Uterine cancer Father No problems noted. 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 Blood pressure normal. Heart rate normal. Respiratory rate normal. Temperature normal. Oxygen saturation normal. Const General: cooperative, healthy appearing and no acute distress Orientation/consciousness: oriented to person, oriented to place, oriented to time and patient oriented x3 Limitations: no limitations HENMT Head: Yes normocephalic and Yes atraumatic Ears: external ears normal General nose exam: Normal external nose present Face and sinus: Yes face symmetric Mouth: oropharynx normal and moist mucous membranes Throat: Yes uvula midline Eyes Pupils: Equal, round and reactive pupils present Neck Neck: Yes normal visual inspection and Yes supple Resp Effort & Inspection: normal respiratory effort and able to speak in complete sentences Auscultation: clear to auscultation bilaterally Cardio Rate: regular rate Rhythm: regular rhythm Heart sounds: S1 normal heart sound present and S2 normal heart sound present GI Palpation (GI): Soft to palpation and nontender Auscultation: normoactive bowel sounds General: Yes no CVA tenderness Back/Spine/Pelvis Back: no CVA tenderness Skin General skin exam: elasticity normal and turgor normal Neuro General: oriented to person, oriented to place, oriented to time, patient oriented x3, moves all extremities, no focal motor deficits and CN's II-XI intact bilaterally Cranial nerves: Yes Equal, round and reactive pupils present Cognition (Neuro): normal cognition Extrem Other: General: Yes full ROM, Yes no pedal edema and Yes no calf tenderness Right lower extremity: lower leg (puncture wounds to R lower leg with mild erythema, no warmth, no drainage) Details: other (erythema decreased as compared to area outlined by previous provider on 05/09/25); no unusual warmth and foot Details: normal capillary refill, toes with normal ROM and vascular exam Details: dorsalis pedis pulse present, posterior tibial pulse present and normal capillary refill Psych Mental Status: mental status grossly normal Affect: normal affect Thought process: Normal thought process present Procedures Procedure Narrative Procedure Narrative: EMERGENCY ULTRASOUND INTERPRETATION-Limited Point of Care Venous (DVT)? [The study reveals:? Impression: NO EVIDENCE OF DVT. I RECOMMENDED TO THE PATIENT? REPEAT ULTRASOUND IN ONE WEEK IF SYMPTOMS PERSIST.] [Indication: Laterality: ? RIGHT? Common Femoral:? -Full Compressibility: YES -Clot Seen: NO Superficial Femoral:? -Full Compressibility: YES -Clot Seen: NO Popliteal:? -Full Compressibility: YES -Clot Seen: NO Performed by: Kwan Roldan MD Interpretation. CPT: 13536; Reference Codes? https://bit.Inventbuy/[email or web address]] Medical Decision Making Medical Decision Making [facility] Narrative: Patient is a 60-year-old female presenting to the emergency department for evaluation of a cat bite. On exam patient is awake, A+Ox3, VS WNL, afebrile, normal neurological exam without focal deficits, physical exam findings as above. Given reported symptoms and physical exam findings, initial differential includes but is not limited to wound check, cellulitis. No physical exam findings concerning for compartment syndrome. Labs notable for no leukocytosis, no elevation of ESR, CRP. Point of care ultrasound performed by Dr. Roldan is without evidence of DVT. Results discussed with patient and all questions answered. Advised patient that her wound appears to be healing appropriately. Patient repeatedly stating that her leg appears more swollen since she came to the ED. There is no evidence of this on my exam. Advised patient to complete full course of antibiotics prescribed her at her 05/09 visit. Return precautions discussed. Patient verbalized understanding of and agreement with plan. Differential Diagnosis Differential Diagnoses: The differential diagnosis associated with the presentation includes As per [facility] Admission/Observation Consideration of admission/observation: Escalation of care including admission/observation considered Patient would have been admitted to the hospital had their clinical presentation warranted hospital admission. Lab Data [facility] Lab Attestation statement: I reviewed the patient's lab results. as per [facility] 05/13/25 09:41 05/13/25 09:41 Labs: Lab Results 05/13/25 Range/Units 09:41 WBC 4.4 L (4.8-10.8) X10*3/uL RBC 4.76 (4.20-5.50) X10*6/uL Hgb 13.8 (12.0-16.0) g/dl Hct 42.3 (37.0-47.0) % MCV 88.9 (80.0-98.0) fL MCH 29.0 (27.0-33.0) pg MCHC 32.6 (31.0-35.0) g/dl RDW 13.8 (11.0-16.0) % Plt Count 272 (160-400) X10*3/uL MPV 8.1 L (9.4-12.3) fL Immature Gran % (Auto) 0.0 (0.0-0.4) % Neut % (Auto) 42.8 L (45-73) % Lymph % (Auto) 38.5 (20-40) % [place] % (Auto) 8.1 (2-11) % Eos % (Auto) 9.7 H (0-4) % Baso % (Auto) 0.9 (0-2) % Lymph # (Auto) 1.7 (1.2-4.9) X10*3/uL [place] # (Auto) 0.4 (0.1-1.2) X10*3/uL Eos # (Auto) 0.4 (0.0-0.4) X10*3/uL Baso # (Auto) 0.0 (0.0-0.2) X10*3/uL Abs Immat Gran (auto) 0.00 (0.00-0.03) X10*3/uL Absolute Neuts (auto) 1.9 L (2.0-8.3) x10*3/uL Absolute Nucleated RBC 0.000 (0.0-0.012) X10*3/uL Nucleated RBC % (auto) 0.0 (0.0-0.2) /100WBC ESR 11 (0-20) MM/HR Sodium 143 (135-145) mmol/L Potassium 4.6 D (3.3-5.1) mmol/L Chloride 111 H (96-108) mmol/L Carbon Dioxide 25 (22-29) mmol/L Anion Gap 12 (12-20) BUN 9 (9-16) mg/dL Creatinine 0.86 (0.5-1.4) mg/dL Estim Creat Clear Calc 63.3 Estimated GFR > 60 Random Glucose 109 (60-115) mg/dL Calcium 9.4 (8.4-10.2) mg/dL Total Bilirubin 0.4 (0.0-1.0) mg/dL AST 23 (5-31) U/L ALT 19 (0-31) U/L Alkaline Phosphatase 99 (39-117) U/L C-Reactive Protein 0.27 (< or = 0.50) mg/dL Total Protein 7.1 (6.5-8.0) g/dL Albumin 4.2 (3.5-5.0) g/dL Hold Red Top See Note External Record Review External record reviewed: Inpatient record, Office record and Outpatient record Discharge Plan Discharge Clinical Impression: Cat bite of right lower leg Qualifiers: Encounter type: subsequent encounter Qualified Code(s): S81.851D - Open bite, right lower leg, subsequent encounter Patient Disposition: Home, Self-Care Instructions: Animal Bite (ED) Additional Instructions: You presented to the emergency department today for evaluation of a cat bite to your leg. Your wound appears to be healing appropriately. Your labs were reassuring. Your ultrasound did not show evidence of a DVT (blood clot). Complete the full course of antibiotics prescribed to you at your initial visit. Keep your leg elevated as much as possible. Return to the emergency department if you develop new redness, especially redness outside the outlined area, warmth, thick yellow drainage, fever/chills/body aches, or any other new or concerning symptoms. Prescriptions: No Action gabapentin 100 mg capsule 100 mg PO TID Qty: 270 3RF pyridoxine (vitamin B6) 100 mg tablet 100 mg PO DAILY 90 Days Qty: 90 0RF fosfomycin tromethamine 3 gram packet 3 g PO Q3D 9 Days Qty: 3 0RF Rx Instructions: One dose (one packet) every 3 days solifenacin [Vesicare] 5 mg tablet 5 mg PO DAILY 30 Days Qty: 30 1RF amoxicillin-pot clavulanate 875-125 mg tablet 1 tab PO BID 7 Days Qty: 14 0RF lidocaine 5 % adhesive patch,medicated 1 patch topical DAILY Qty: 30 0RF Rx Instructions: leave on most painful area for up to 12 hrs nitrofurantoin monohyd/m-cryst [Macrobid] 100 mg capsule 100 mg PO Q12H 5 Days Qty: 10 0RF Rx Instructions: must administer with a meal/food pantoprazole 40 mg tablet,delayed release (DR/EC) 40 mg PO DAILY diltiazem HCl 180 mg capsule,extended release 24hr 180 mg PO DAILY losartan 50 mg tablet 50 mg PO DAILY levothyroxine 25 mcg tablet 25 mcg PO DAILY topiramate 50 mg tablet 100 mg PO BID riboflavin (vitamin B2) [Vitamin B-2] 100 mg tablet 200 mg PO BID estradiol 0.01 % (0.1 mg/gram) cream See Rx Instructions .Route 3XW 30 Days Qty: 42.5 2RF Rx Instructions: Apply a pea-sized amount to urethra daily x1 month and then 3 times per week thereafter Interventions: ED Discharge Assessment Last Done: 05/13/25 12:32 Discharge Date/Time: 05/13/25 12:33 Print Language: Danish
--- OUTSIDE RECORDS SUMMARY | 2025-05-13 09:42 | XMS_ITS | Encounter Summary ---
Author Organization [employer] Address [address] [place] [address] Care Team Providers Care Final Inspector Name Role Phone Nupur Weir Primary Care Provider [phone] Abel Chavarria RN Unavailable [phone] Margareth Chavarria Unavailable Encounter Details Date Type Department Care Team (Late st Contact Info) Description 05/11/2025 Patient Outreach [facility] [address] [place] [address] Nupur Weir ANP [address] [place] [address] Social History Tobacco Use Types Packs/Day Years [...] is your housing situation today? I have michale gilbert 02/26/[address] you [...] 9:15 AM EDT Office Visit [facility] [address] [place] [address] Nupur Weir, ANP [address] [place] [address] 06/12/2025 9:45 AM EDT Office Visit [facility] [address] [place] [address] 09/28/2025 9:30 AM EST Medication Management [address] [address] Fay Leigh, PharmD [address] [place] [address] documented as of this encounter Visit Diagnoses Not on filedocumented in this encounter Additional Health Concerns Assessment Noted Time PHQ-9 Depression Total Score: 17 08/14/2 025 10:08 AM EDT documented as of this encounter Care Teams Final Inspector Relationship Specialty Start Date End Date Nupur Weir ANP [address] [place] [address] PCP - General Family Medicine 01/16/20 Abel Chavarria RN [address] [place] [address] Registered Nurse Family Medicine 02/26/25 Margareth Chavarria 02/26/25 documented as of this encounter
--- OUTSIDE RECORDS SUMMARY | 2025-05-13 09:42 | XMS_ITS | Encounter Summary ---
Author Organization [employer] Address [address] [place] [address] Care Team Providers Care Braided Band Assembler Name Role Phone Nupur Weir Primary Care Provider [phone] Abel Chavarria RN Unavailable [phone] Margareth Chavarria Unavailable Encounter Details Date Type [...] Description 05/15/2025 9:15 AM EDT Office Visit [facility] [address] [place] [address] Nupur Weir ANP [address] [place] [address] 06/12/2025 9:45 AM EDT Office Visit [address] [address] 09/28/2025 9:30 AM EST Medication Management [address] [address] Fay Leigh, PharmD [address] [place] [address] documented as of this encounter Visit Diagnoses Not on filedocumented in this encounter Additional Health Concerns Assessment Noted Time PHQ-9 Depression Total Score: 17 025 10:08 AM EDT documented as of this encounter Care Teams Braided Band Assembler Relationship Specialty Start Date End Date Nupur Weir ANP [address] [place] [address] PCP - General Family Medicine 01/16/20 Abel Chavarria RN [address] [place] [address] Registered Nurse Family Medicine 02/26/25 Margareth Chavarria 02/26/25 documented as of this encounter
--- OUTSIDE RECORDS SUMMARY | 2025-05-13 09:42 | XMS_ITS | Encounter Summary ---
Author Organization [employer] Address [address] [place] [address] Street [address] [place] [address] Care Team Providers Care Digital Product Manager Name Role Phone Nupur Weir Primary Care Provider [phone] Abel Chavarria RN Unavailable [phone] Margareth Chavarria Unavailable Reason for Visit * Reason Onset Date Comments Appointment Request 11/30/2024 Encounter Details Date Type Department Care Team ([facility] st Contact Info) Description 11/30/2024 Telephone [facility] [address] [place] [address] Nupur Weir ANP [address] [place] [address] Appointment Request Social History Tobacco Use Types [...] t he electric, gas, oil or water [employer] threatened to shut off services in your [...] EDT Tc from 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 States has another appt around the same time at sleep medicine and pt informs takes bus and believes will not be able to make it on time. Would like to r/s for Wednesday. documented in this encounter Plan of Treatment Upcoming Encounters Date Type Department Care Team (Late st Contact Info) Description 05/15/2025 9:15 AM EDT Office Visit [address] [address] Nupur Weir ANP [address] [place] [address] 06/12/2025 9:45 AM EDT Office Visit [address] [address] 09/28/2025 9:30 AM EST Medication Management [address] [address] Fay Leigh, PharmD [address] [place] [address] documented as of this encounter Visit Diagnoses Not on filedocumented in this encounter Care Teams Digital Product Manager Relationship Specialty Start Date End Date Nupur Weir ANP [address] [place] [address] PCP - General Family Medicine 01/16/20 Abel Chavarria, ILENE [address] [place] [address] Registered Nurse Family Medicine 02/26/25 Margareth Chavarria 02/26/25 documented as of this encounter
--- OUTSIDE RECORDS SUMMARY | 2025-05-13 09:42 | XMS_ITS ---
Author Organization [employer] Address [address] [place] [address] 7t [place] [address] Care Team Providers Care Cow Buyer Name Role Phone Nupur Weir Primary Care Provider [phone] Abel Chavarria RN Unavailable [phone] Margareth Chavarria Unavailable CM Complex Status:Enrolled (Active) Start date:02/26/2025 Enrollment date:03/15/2025 Enrollment reason:ADT Feed Overview ED- Pt went to [facility] on 02/24/25. Case Team Name Relationship Phone Abel Chavarria RN(Responsible Staff) Registered Nurse [phone] Continued Care and Services Coordination
--- OUTSIDE RECORDS SUMMARY | 2025-05-13 09:42 | XMS_ITS | Encounter Summary ---
Author Organization [employer] Address [address] [place] [address] Care Team Providers Care Solar Panel Installer Name Role Phone Nupur Weir Primary Care Provider [phone] Abel Chavarria RN Unavailable [phone] Margareth Chavarria Unavailable Reason for Visit * Reason Comments Med Refill Encounter Details Date Type Department Care Team (Late st Contact Info) Description 02/11/2024 Refill [facility] [address] [place] [address] Marcella Colindres MD [address] [place] [address] Gastritis medicamentosa Social History Tobacco Use Types [...] Description 05/15/2025 9:15 AM EDT Office Visit [address] [address] Nupur Weir ANP [address] [place] [address] 06/12/2025 9:45 AM EDT Office Visit [address] [address] 09/28/2025 9:30 AM EST Medication Management [address] [address] Fay Leigh PharmD [address] [place] [address] documented as of this encounter Visit Diagnoses Diagnosis Gastritis medicamentosa Other specified gastritis without mention of hemorrhage documented in this encounter Care Teams Solar Panel Installer Relationship Specialty Start Date End Date Nupur Weir ANP [address] [place] [address] PCP - General Family Medicine 01/16/20 Abel Chavarria, ILENE [address] [place] [address] Registered Nurse Family Medicine 02/26/25 Margareth Chavarria 02/26/25 documented as of this encounter
--- OUTSIDE RECORDS SUMMARY | 2025-05-13 09:42 | XMS_ITS | Encounter Summary ---
Author Organization [employer] Address [address] [place] [address] 7t [place] [address] Care Team Providers Care Building Maintenance Supervisor Name Role Phone Nupur Weir Primary Care Provider [phone] Abel Chavarria RN Unavailable [phone] Margareth Chavarria Unavailable Reason for Visit * Reason Onset Date Comments Med Refill 05/14/2023 Encounter Details Date Type Department Care Team (Late st Contact Info) Description 05/14/[address] [facility] MED[facility]INE [address] [place] [address] Nupur Weir ANP [address] [place], [place] [id number] Med Refill Social History Tobacco Use Types [...] Description 05/15/2025 9:15 AM EDT Office Visit [address] [address] Nupur Weir ANP [address] [place] [address] 06/12/2025 9:45 AM EDT Office Visit [address] [address] 09/28/2025 9:30 AM EST Medication Management [address] [address] Fay Leigh PharmD [address] [place] [address] documented as of this encounter Visit Diagnoses Not on filedocumented in this encounter Care Teams Building Maintenance Supervisor Relationship Specialty Start Date End Date Nupur Weir ANP [address] [place] [address] PCP - General Family Medicine 01/16/20 Abel Chavarria, ILENE [address] [place] [address] Registered Nurse Family Medicine 02/26/25 Margaerth Chavarria 02/26/25 documented as of this encounter
--- OUTSIDE RECORDS SUMMARY | 2025-05-13 09:42 | XMS_ITS | Encounter Summary ---
Author Organization [employer] Address [address] [place] [address] Street [address] [place] [address] Care Team Providers Care Bridges Supervisor Name Role Phone Nupur Weir Primary Care Provider [phone] Abel Chavarria RN Unavailable [phone] Margareth Chavarria Unavailable Reason for Visit * Reason Onset Date Comments Med Refill 07/26/2024 Encounter Details Date Type Department Care Team ([facility] st Contact Info) Description 07/26/2024 Telephone [facility] MED[facility]INE [address] [place] [address] Nupur Weir ANP [address] [place] [address] Med Refill Social History Tobacco Use Types [...] the past 12 months, has t he [employer], gas, oil or water [employer] threatened to shut off services in your [...] 50 MG tablet To be sent to: [id number] [place], [place] - [address] [facility] documented in this encounter Plan of Treatment Upcoming Encounters Date Type Department Care Team (Late st Contact Info) Description 05/15/2025 9:15 AM EDT Office Visit [facility] [address] [place] [address] Nupur Weir ANP [address] [place] [address] 06/12/2025 9:45 AM EDT Office Visit [address] [address] 09/28/2025 9:30 AM EST Medication Management [address] [address] Fay Leigh, PharmD [address] [place] [address] documented as of this encounter Visit Diagnoses Not on filedocumented in this encounter Care Teams Bridges Supervisor Relationship Specialty Start Date End Date Nupur Weir ANP [address] [place] [address] PCP - General Family Medicine 01/16/20 Abel Chavarria, ILENE [address] [place] [address] Registered Nurse Family Medicine 02/26/25 Margareth Chavarria 02/26/25 documented as of this encounter
--- OUTSIDE RECORDS SUMMARY | 2025-05-13 09:42 | XMS_ITS | Encounter Summary ---
Author Organization [employer] Address [address] [facility] [address] [place] [address] Care Team Providers Care Metal Buffer Name Role Phone Nupur Weir Primary Care Provider [phone] Abel Chavarria RN Unavailable Margareth Chavarria Unavailable Encounter Details Date Type Department Care Team (Latest Contact Info) Description 05/09/2025 Travel Social History Tobacco Use Types Packs/Day [...] 05/15/2025 9:15 AM EDT Office Visit [facility] MEDICINE [address] [place] [address] Nupur Weir ANP 230 [place] [address] 06/12/2025 9:45 AM EDT Office Visit [address] [address] 09/28/2025 9:30 AM EST Medication Management [address] [address] Fay Leigh, PharmD [address] [place] [address] documented as of this encounter Visit Diagnoses Not on filedocumented in this encounter Additional Health Concerns Assessment Noted Time PHQ-9 Depression Total Score: 17 025 10:08 AM EDT documented as of this encounter Care Teams Metal Buffer Relationship Specialty Start Date End Date Nupur Weir ANP [address] [place] [address] PCP - General Family Medicine 01/16/20 Abel Chavarria RN [address] [place] [address] Registered Nurse Family Medicine 02/26/25 Margareth Chavarria 02/26/25 documented as of this encounter
--- OUTSIDE RECORDS SUMMARY | 2025-05-13 09:42 | XMS_ITS | Encounter Summary ---
Author Organization [employer] Address [address] [facility] [address]t [place] [address] Care Team Providers Care Printing Bindery Assistant Name Role Phone Nupur Weir Primary Care Provider [phone] Abel Chavarria RN Unavailable [phone] Margareth Chavarria Unavailable Reason for Visit * Reason Comments Med Refill Encounter Details Date Type Department Care Team ([facility] st Contact Info) Description 02/11/2024 Refill [facility] MED[facility]INE 230 [place] [address] Nupur Weir ANP 230 [place] [address] Social History Tobacco Use Types Packs/Day Years [...] Description 05/15/2025 9:15 AM EDT Office Visit [address] [address] Nupur Weir ANP [address] [place] [address] 06/12/2025 9:45 AM EDT Office Visit [address] [address] 09/28/2025 9:30 AM EST Medication Management [address] [address] Fay Leigh, PharmD [address] [place] [address] documented as of this encounter Visit Diagnoses Not on filedocumented in this encounter Care Teams Printing Bindery Assistant Relationship Specialty Start Date End Date Nupur Weir ANP [address] [place] [address] PCP - General Family Medicine 01/16/20 Abel Chavarria, ILENE [address] [place] [address] Registered Nurse Family Medicine 02/26/25 Margareth Chavarria 02/26/25 documented as of this encounter
--- OUTSIDE RECORDS SUMMARY | 2025-05-13 09:42 | XMS_ITS | Encounter Summary ---
Author Organization [employer] Address [address] [facility] [address] 7[address] [place] [address] Care Team Providers Care Adult Ministries Director Name Role Phone Nupur Weir Primary Care Provider [phone] Abel Chavarria RN Unavailable [phone] Margareth Chavarria Unavailable Encounter Details Date Type Department Care Team (Late st Contact Info) Description 04/05/2025 Orders Only [facility] 230 [place] [address] Jaleel Block MD 230 [place] [address] Right-sided chest pain (Primary Dx); Hemoptysis Social [...] 05/15/2025 9:15 AM EDT Office Visit [address] [address] Nupur Weir, ANP [address] [place] [address] 06/12/2025 9:45 AM EDT Office Visit [address] [address] 09/28/2025 9:30 AM EST Medication Management [address] [address] Fay Leigh, MayoD [address] [place] [address] documented as of this encounter Procedures Procedure Name Priority Date/Time Associated Diagnosis Comments CULTURE, URINE, ROUTINE Routine 04/05/2025 12:00 AM EDT Right-sided chest pain documented in this encounter Results * Culture, Urine, Routine (04/05/2025 12:00 AM EDT) Urine Urine specimen obtained by clean catch procedure / Unknown 04/05/2025 04/05/2025 Comment:[facility] - 04/06/2025 10:53 AM EDT Urine Culture No growth. Specimen Source: Urine clean catch us Generic External Data Provider LAB MICROBIOLOGY - GENERAL ORDERABLES Final Result Performing Organization Address City/State/[facility] Co de Phone Number [facility] [address] [place] [phone] documented in this encounter Visit Diagnoses Diagnosis Right-sided chest pain- Primary Hemoptysis documented in this encounter Additional Health Concerns Assessment Noted Time PHQ-9 Depression Total Score: 7 03/15/20 25 3:29 PM EDT documented as of this encounter Care Teams Adult Ministries Director Relationship Specialty Start Date End Date Nupur Weir ANP [address] [place] [address] PCP - General Family Medicine 01/16/20 Abel Chavarria, ILENE [address] [place] [address] Registered Nurse Family Medicine 02/26/25 Margareth Chavarria 02/26/25 documented as of this encounter
--- OUTSIDE RECORDS SUMMARY | 2025-05-13 09:42 | XMS_ITS | Encounter Summary ---
Author Organization [employer] Address [address] [place] [address] Street 7t [place] [address] Care Team Providers Care Procurement Representative Name Role Phone Nupur Weir Primary Care Provider [phone] Abel Chavarria RN Unavailable [phone] Margareth Chavarria Unavailable Reason for Visit * Reason Onset Date Comments Med Refill 05/08/2025 Encounter Details Date Type Department Care Team ([facility] st Contact Info) Description 05/08/2025 Refill [facility] [address] [place] [address] Kassy Ramsey, RN [address] [place] [address] Long-term current use of opiate analgesic; Back [...] Description 05/15/2025 9:15 AM EDT Office Visit [facility] MEDICINE [address] [place] [address] Nupur Weir, ANP [address] [place] [address] 06/12/2025 9:45 AM EDT Office Visit [facility] MEDICINE [address] [place] [address] 09/28/2025 9:30 AM EST Medication Management [facility] MED[facility]INE [address] [place] [address] Fay Leigh, MayoD [address] [place] [address] documented as of this encounter Visit Diagnoses Diagnosis Long-term current use of opiate analgesic Encounter for long-term (current) use of other medications Back pain, unspecified back location, unspecified back pain laterality, unspecified chronicity documented in this encounter Additional Health Concerns Assessment Noted Time PHQ-9 Depression Total Score: 17 04/12/ 025 10:08 AM EDT documented as of this encounter Care Teams Procurement Representative Relationship Specialty Start Date End Date Nupur Weir ANP [address] [place] [address] PCP - General Family Medicine 01/16/20 Abel Chavarria RN [address] [place] [address] Registered Nurse Family Medicine 02/26/25 Margareth Chavarria 02/26/25 documented as of this encounter
--- OUTSIDE RECORDS SUMMARY | 2025-05-13 09:42 | XMS_ITS | Encounter Summary ---
Author Organization [employer] Address [address] [place] [address] Street 7t [place] [address] Care Team Providers Care Civil Rights Representative Name Role Phone Nupur Weir Primary Care Provider [phone] Abel Chavarria RN Unavailable [phone] Margareth Chavarria Unavailable Reason for Visit * Reason Comments Med Refill Encounter Details Date Type Department Care Team (Late st Contact Info) Description 09/19/2023 Refill [facility] MEDICINE 230 [place] [address] Nupur Weir ANP 230 [place] [address] Constipation, unspecified constipation type Social History Tobacco [...] Description 05/15/2025 9:15 AM EDT Office Visit [address] [address] Nupur Weir ANP [address] [place] [address] 06/12/2025 9:45 AM EDT Office Visit [address] [address] 09/28/2025 9:30 AM EST Medication Management [address] [address] Fay Leigh PharmD [address] [place] [address] documented as of this encounter Visit Diagnoses Diagnosis Constipation, unspecified constipation type documented in this encounter Care Teams Civil Rights Representative Relationship Specialty Start Date End Date Nupur Weir ANP [address] [place] [address] PCP - General Family Medicine 01/16/20 Abel Chavarria, ILENE [address] [place] [address] Registered Nurse Family Medicine 02/26/25 Margareth Chavarria 02/26/25 documented as of this encounter
--- OUTSIDE RECORDS SUMMARY | 2025-05-13 09:42 | XMS_ITS ---
Author Organization [employer] Address [address] [place] [address] 7t [place] [address] Care Team Providers Care Meter Repairer Helper Name Role Phone Nupur Weir Primary Care Provider [phone] Abel Chavarria RN Unavailable [phone] Margareth Chavarria Unavailable [facility] Status:Enrolled (Active) Start date:02/26/2025 Enrollment date:03/15/2025 Enrollment reason:ADT Feed Overview ED- Pt went to [facility] ED on 02/24/25. Please outreach for enrollment. Armida Case Team Name Relationship Phone Margareth Chavarria(Responsible Staff) [phone] Continued Care and Services Coordination
--- OUTSIDE RECORDS SUMMARY | 2025-05-13 09:42 | XMS_ITS | Encounter Summary ---
Author Organization [employer] Address [address] [place] [address] Street 7t [place] [address] Care Team Providers Care Push Bench Operator Helper Name Role Phone Nupur Weir Primary Care Provider [phone] Abel Chavarria RN Unavailable [phone] Margareth Chavarria Unavailable Reason for Visit * Reason Onset Date Comments Med Refill 12/22/2024 Encounter Details Date Type Department Care Team ([facility] st Contact Info) Description 12/22/2024 Telephone [facility] MEDICINE 230 [place] [address] Nupur Weir ANP [address] [place] [address] Med Refill Social History Tobacco Use Types [...] t he electric, gas, oil or water [employer] threatened to shut off services in your [...] MG tablet To be sent to: [facility] - [place], [place] - [address] [place] [address] documented in this encounter Plan of Treatment Upcoming Encounters Date Type Department Care Team ([facility] st Contact Info) Description 05/15/2025 9:15 AM EDT Office Visit [facility] MEDICINE [address] [place] [address] Nupur Weir ANP [address] [place] [address] 06/12/2025 9:45 AM EDT Office Visit [address] [address] 09/28/2025 9:30 AM EST Medication Management [facility] MED[facility]INE [address] [place] [phone] Fay Leigh, PharmD [address] [place] [address] documented as of this encounter Visit Diagnoses Not on filedocumented in this encounter Care Teams Push Bench Operator Helper Relationship Specialty Start Date End Date Nupur Weir ANP [address] [place] [address] PCP - General Family Medicine 01/16/20 Abel Chavarria RN [address] [place] [address] Registered Nurse Family Medicine 02/26/25 Margareth Chavarria 02/26/25 documented as of this encounter
--- OUTSIDE RECORDS SUMMARY | 2025-05-13 09:42 | XMS_ITS | Encounter Summary ---
Author Organization [employer] Address [address] [place] [address] Street 7t [place] [address] Care Team Providers Care Compressor Operator Portable Name Role Phone Nupur Weir Primary Care Provider [phone] Abel Chavarria RN Unavailable [phone] Margareth Chavarria Unavailable Reason for Visit * Reason Onset Date Comments rs no show appt 11/30/2024 Encounter Details Date Type Department Care Team (Late st Contact Info) Description 11/30/2024 Telephone [facility] [address] [place] [address] Taty, Laura [address] [place] [address] rs no show appt Social History Tobacco [...] the past 12 months, has t he vivit, gas, oil or water company threatened to [...] Description 05/15/2025 9:15 AM EDT Office Visit [address] [address] Nupur Weir ANP [address] [place] [address] 06/12/2025 9:45 AM EDT Office Visit [address] [address] 09/28/2025 9:30 AM EST Medication Management [address] [address] Fay Leigh, PharmD [address] [place] [address] documented as of this encounter Visit Diagnoses Not on filedocumented in this encounter Care Teams Compressor Operator Portable Relationship Specialty Start Date End Date Nupur Weir ANP [address] [place] [address] PCP - General Family Medicine 01/16/20 Abel Chavarria, ILENE [address] [place] [address] Registered Nurse Family Medicine 02/26/25 Magrareth Chavarrai 02/26/25 documented as of this encounter
--- OUTSIDE RECORDS SUMMARY | 2025-05-13 09:42 | XMS_ITS | Encounter Summary ---
Author Organization [employer] Address [address] [facility] [address] [place] [address] Care Team Providers Care Town Clerk Name Role Phone Nupur Weir Primary Care Provider [phone] Abel Chavarria RN Unavailable [phone] Margareth Chavarria Unavailable Encounter Details Date Type Department Care Team ([facility] st Contact Info) Description 07/05/2024 Telephone [facility] AD[facility]AL [address] [place] [address] Alonso-PradhanYarelis friedman, DDS 230 [place] [address] Social History Tobacco Use Types Packs/Day Years [...] Shameka [place] - 07/05/2024 10:56 AM EST Al doctor flip Patient called she went her pharmacy and her medication was not there. Can we send her prescriptions to her pharmacy thank you . documented in this encounter Plan of Treatment Upcoming Encounters Date Type Department Care Team (Late st Contact Info) Description 05/15/2025 9:15 AM EDT Office Visit [facility] MEDICINE [address] [place] [address] Nupur Weir, ANP [address] [place] [address] 06/12/2025 9:45 AM EDT Office Visit [facility] MED[facility] [address] [place] [address] 09/28/2025 9:30 AM EST Medication Management [facility] [address] [place] [address] Fay Leigh, MayoD [address] [place] [address] documented as of this encounter Visit Diagnoses Not on filedocumented in this encounter Care Teams Town Clerk Relationship Specialty Start Date End Date Nupur Weir ANP [address] [place] [address] PCP - General Family Medicine 01/16/20 Abel Chavarria RN [address] [place] [address] Registered Nurse Family Medicine 02/26/25 Margareth Chavarria 02/26/25 documented as of this encounter
--- OUTSIDE RECORDS SUMMARY | 2025-05-13 09:42 | XMS_ITS | Clinical Summary ---
Author Organization [employer] Address [address] [place] [address] Care Team Providers Care Ripening Room Attendant Name Role Phone Michael Yanez Primary Care Provider [phone] Abel Chavarria RN Unavailable [phone] Margareth Chavarria Unavailable Allergies Active Allergy Reactions [...] Intertrigo Apply twice daily for 14-28d to [facility] 30 g 025 Active Cholecalciferol (Vitamin D3) [...] eorder (will not trigger notification to Pharmacy)) traMADol (Ultram) 50 MG tabletIndications :Long-term current [...] Q8H PRN Indication: arthralgia, lumbar spondylosis Last BEHAVIOR ANALYST Agreement: 12/01/24 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 UTOX unexpected. See commercial producer. Send out MTD and BZO confirmatory. Possible [...] organization. Date Type Department Care Team Description 05/11/2025 Patient Outreach [facility] [address] [place] [address] Michael Yanez ANP 05/09/2025 5:40 PM EDT Office Visit [facility] [address] [place] [address] Michael Yanez ANP Cat bite, subsequent encounter (Primary Dx) 05/09/2025 Travel 05/08/2025 9:45 AM EDT Office Visit [address] [address] Anushka Gunter, KYLER Lumbar spondylosis (Primary Dx); Long-term current use of opiate analgesic 05/08/2025 Refill [facility] [address] [place] [address] Kassy Ramsey, ILENE Long-term current use of opiate analgesic; Back pain, unspecified back location, unspecified back pain laterality, unspecified chronicity 05/08/2025 Travel 05/07/2025 Patient Outreach [facility] [address] [place] [address] Mcihael Yanez ANP Care Coordination (C3CM/CHW KHUSHBU Edwards- Appt reminder/PT-1 update) 05/06/2025 Results Follow-Up [facility] [address] [place] [address] Jaleel Block MD CTA Chest PE Protocal 05/03/2025 Patient Outreach [facility] [address] [place] [address] Michael Yanez ANP Care Coordination (C3/CHW KHUSHBU Edwards-Follow up/PT-1) 05/03/2025 Patient Outreach [address] [address] Michael Yanez ANP Care Management (C3CM- f/u call) 05/01/2025 Orders Only [facility] [address] [place] [address] Jaleel Block MD 04/25/2025 Patient Outreach [address] [address] Michael Yanez ANP 04/23/2025 Patient Outreach [address] [address] Michael Yanez ANP Care Management (C3CM- f/u call) 04/18/2025 Refill [facility] [address] [place] [address] Michael Yanez ANP Long-term current use of opiate analgesic; Back pain, unspecified back location, unspecified back pain laterality, unspecified chronicity 04/17/2025 10:30 AM EDT Clinical Support [facility] [address] [place] [address] Kassy Ramsey, RN Long-term current use of opiate analgesic (Primary Dx) 04/17/2025 Refill [facility] [address] [place] [address] Mihcael Yanez ANP Iron deficiency anemia, unspecified iron deficiency anemia type 04/17/2025 Telephone [facility] [address] [place] [address] Kassy Ramsey, ILENE 04/17/2025 Travel 04/16/2025 Refill [facility] [address] [place] [address] Michael Yanez ANP Iron deficiency anemia, unspecified iron deficiency anemia type 04/11/2025 4:00 PM EDT Office Visit [address] [address] Michael Yanez ANP Primary hypertension (Primary Dx); RUQ pain 04/11/2025 Orders Only GENERIC EXTERNAL DATA DEPARTMENT Provider, Generic External Data 04/11/2025 Travel 04/10/2025 9:45 AM EDT Office Visit [address] [address] Anushka Gunter, KYLER Lumbar spondylosis (Primary Dx); Long-term current use of opiate analgesic 04/10/2025 Patient Outreach [address] [address] Michael Yanez ANP Care Coordination (C3CM/CHW KHUSHBU Edwards- Appt reminder) 04/10/2025 Telephone [facility] [address] [place] [address] Kassy Ramsey RN 04/10/[address] [address] Jaleel Block MD CTA Chest order 04/10/[address] [address] Michael Yanez ANP CHART PREP 04/10/2025 Telephone [facility] [address] [place] [address] Kassy Ramsey RN 04/10/2025 Travel 04/10/[address] [address] Michael Yanez ANP ER Follow-up 04/09/2025 Patient Outreach [address] [address] Michael Yanez ANP Care Management (C3CM- f/u call) 04/09/2025 Patient Outreach [address] [address] Michael Yanez ANP 04/06/2025 Patient Outreach [address] [address] Michael Yanez ANP Pre-visit Planning (SDOH screening completed on 02/26/25 ) 04/05/2025 Patient Outreach [address] [address] Michael Yanez ANP 04/05/2025 Telephone [facility] [address] [place] [address] Jaleel Block MD 04/05/2025 Orders Only [facility] [address] [address] Jaleel Block MD Right-sided chest pain (Primary Dx); Hemoptysis 04/05/2025 Orders Only [facility] External Provider, [facility] 04/04/2025 9:40 AM EDT Office Visit [facility] [address] [address] Jaleel Block MD Right-sided chest pain (Primary Dx); Hemoptysis 04/04/2025 [facility] [address] [address] Jaleel Block MD 04/04/2025 [facility] Only [facility] [address] [address] Jaleel Block MD 04/04/2025 Telephone [facility] [address] [place] [address] Jaleel Block MD 04/04/2025 Travel 03/28/2025 Patient Outreach [address] [address] Michael Yanez ANP Care Coordination (NATHALY/KHUSHBU Jurado- PT-1 Coordination) 03/27/2025 Patient Outreach [address] [address] Michael Yanez ANP Care Management (C3- f/u call) 03/22/2025 Orders Only GENERIC EXTERNAL DATA DEPARTMENT Provider, Generic External Data 03/22/2025 Travel 03/22/[address] [address] Michael Yanez ANP Long-term current use of opiate analgesic (Primary Dx); Back pain, unspecified back location, unspecified back pain laterality, unspecified chronicity 03/21/2025 Patient Outreach [address] [address] Michael Yanez ANP Care Coordination (NATHALY/KHUSHBU Jurado-Appt reminder-[facility] Urology) 03/19/2025 Refill [facility] [address] [place] [address] Michael Yanez ANP Arthralgia, unspecified joint 03/16/2025 Patient Outreach [address] [address] Michael Yanez ANP Care Coordination ([facility]/Isra Chavarria-KHUSHBU- Booked PT-1 for upcoming appt to [facility] Urology) 03/15/2025 Patient Outreach [address] [address] Michael Yanez ANP Care Management ([facility]- initial assessment/ enrollment/) 03/15/[address] [address] Berkley Hinkle RN 03/15/2025 Plan of Care Documentation [address] [address] 03/14/[address] [address] Michael Yanez ANP Iron deficiency anemia, unspecified iron deficiency anemia type; Primary hypertension 03/13/2025 Patient Outreach [address] [address] Michael Yanez ANP Care Coordination ([facility]/KHUSHBU Jurado- Complex Care [place] Appt Reminder) 03/12/2025 2:00 PM EDT Office Visit [facility] [address] [place] [address] Marcella Colindres MD Acute bursitis of left shoulder (Primary Dx) 03/12/2025 Travel 03/12/2025 Patient Outreach [address] [address] Michael Yanez ANP 03/11/[address] [address] Michael Yanez ANP Arthralgia, unspecified joint 03/10/2025 Orders Only GENERIC EXTERNAL DATA DEPARTMENT Provider, Generic External Data 02/28/2025 Patient Outreach [address] [address] Michael Yanez ANP 02/27/2025 1:00 PM EDT Telemedicine [address] [address] Julianne Anne RN Strain of left shoulder, initial encounter 02/27/2025 Travel 02/26/2025 Patient Outreach [address] [address] Michael Yanez ANP Care Coordination (C3/W Margareth Chavarria - ADT Outreach-Agrees to participate) 02/26/2025 Patient Outreach [address] [address] Michael Yanez ANP Care Coordination (C3/W Margareth Chavarria, Chart Review) 02/26/2025 Patient Outreach [address] [address] Michael Yanez ANP Care Management (C3- chart review) 02/26/2025 Patient Outreach [address] [address] Michael Yanez ANP 02/25/2025 Refill [facility] [address] [place] [address] Jaleel Block MD 02/12/2025 Refill [facility] [address], [place] [phone] Michael Yanez ANP Other specified hypothyroidism from Last 3 Months Immunizations Immunization Administration [...] tox oid, preservative free, adsorbed 08/13/2015,05/04/2014 Tdap 05/09/2025,06/07/2009 Zoster, Recombinant 10/03/2024,07/21/2024 Social History Tobacco Use [...] Mass Index 24.3 05/09/2025 5:12 PM EDT Plan of Treatment Upcoming Encounters Date Type Department Care Team (Late st Contact Info) Description 05/15/2025 9:15 AM EDT Office Visit [facility] [address] [place] [address] Michael Yanez, ANP [address] [place] [address] 06/12/2025 9:45 AM EDT Office Visit [facility] [address] [place] [address] 09/28/2025 9:30 AM EST Medication Management [facility] [address] [place] [address] Fay Leigh, PharmD [address] [place] [address] Health Maintenance Due Date Last Done Comments [...] 11/09/2018 SDOH Screening 02/26/2026 02/26/2025 Tobacco Screening 05/09/2026 05/09/2025 Lipid Panel 08/25/2029 08/25/2024, 12/08/2021 Colonoscopy 12/28/2033 07/08/2021 Colorectal Cancer Screening 12/28/2033 DTaP/Tdap/Td Vaccines (7 - Td or Tdap) 05/09/2035 05/09/2025, 07/12/2020, 08/17/2017, Additional history exists RSV Patients and Patients Aged 60 years [...] Unknown 05/08/2025 10:33 AM EDT Narrative Kassy Ramsey, RN - 05/08/2025 10:33 AM EDT .UTOX cup Lot#[id number] Exp. 06/05/26 Internal Pass Control us Michael RENAE POINT OF CARE TEST ENTER/EDIT OR DERABLES Final Result * CTA Chest PE Protocal (05/01/2025 2:33 PM EDT) Anatomical Region Laterality Modality Body, Chest Computed Tomogra phy 05/01/2025 2:33 PM EDT Narrative 05/01/2025 3:11 PM EDT [place] [address] [address] Scan Report Signed Patient: Laura Gonzalez MR#: [id number] : 1965 Acct:[id number] Age/Sex: 60 / F ADM Date: 05/01/25 Loc: HO.CT Attending Dr: Jaleel Block MD Ordering Physician: JALEEL BLOCK MD Date of Service: 05/01/25 Procedure(s): CT angio chest PE protocol Accession Number(s): [id number] cc: JALEEL BLOCK MD; MICHAEL YANEZ NP Report Number: [id number]: Total DLP = 139.00 mGy-cm Reason for [...] 05/01/25 1508 DD/ 1433 TD/TT: 05/01/25 1452 Log Grader: Procedure Note Donotuseinterpreter, Image - 05/01/[address] [place] [address] [address] Scan Report Signed Patient: Aleksandar Gonzalez#: [id number] : 1965Acct:[id number] Age/Sex: 60 / FADM Date: 05/01/25 Loc: .CT Attending Dr: Jaleel Block MD Ordering Physician: JALEEL BLOCK MD Date of Service: 05/01/25 Procedure(s): CT angio chest PE protocol Accession Number(s): [id number] cc: JALEEL BLOCK MD; MICHAEL YANEZ NP Report Number: [id number]: Total DLP = 139.00 mGy-cm Reason for [...] 05/01/25 1508 DD/ 1433 TD/TT: 05/01/25 1452 Log Grader: Jaleel Block MD [facility] PROCEDURES Final Result * Hematoxylin and Eosin Stain (04/11/2025 12:01 PM EDT) 04/11/2025 12:0 1 PM EDT 04/11/2025 1:46 PM EDT [facility] LABS - 04/12/2025 2:08 PM EDT ----- ------- Name: Laura Gonzalez Age/Sex: 60/F : 1965 [id number]#: [id number] Attend Dr: Tung Potter MD Re04/11/25 Status: [facility] Location: [facility] Disch: ----- ------- SPEC : [id number] RECD: 04/11/25-1345 STATUS: [facility] NUM: [id number] ANGELA: 04/11/25-[address] [facility] [address]: Tung Potter MD ENTERED: 04/11/25-2 SP TYPE: Surgical OTHR DR: MICHAEL YANEZ [...] developed and their performance characteristics determined by [facility]. They have not been cleared or approved by the U.S. Food and Drug Administration (FDA). However, the FDA has determined that such clearance or approval is not necessary. This laboratory is CONTINUED ON NEXT PAGE ----- ------- Name: Gladys Laura Melissa Age/Sex: 60/F : 1965 Unit#: [id number] Attend Dr: Tung Potter MD Re04/11/25 Status: [facility] Location: [facility] Disch: ----- ------- SPEC : [id number] RECD: 04/11/25 STATUS: VASUCarolyn ALBERT NUM: [id number] ANGELA: 04/11/25-[address] [facility] [address]: Tung Potter MD ENTERED: 04/11/25 SP TYPE: Surgical OTHR DR: MICHAEL YANEZ NP ORDERED: HE Stain/6, Gross Micro L4/2, IHC, Special st. 2/2, H. pylori, AB/PAS/2 IHC S/NG Disclaimer (Continued) certified under the Clinical Laboratory Improvement Amendments of 1988 (CLIA) as qualified to perform high complexity clinical laboratory testing. Copies To: Tung Potter MD [facility] Weight Management Program [address] [place] [address] MICHAEL YANEZ NP [facility] [address] [place] [address] ----- ------- Signed (signature on file) Yasmeen Carrasco MD 04/12/25 1408 ----- ------- END OF REPORT Generic External Data Provider LAB BLOOD ORDERAB LES Final Result [facility] [address] [place] [phone] * Drug Monitoring, Benzodiazepines, Quantitative, Urine (04/10/2025 10:00 AM EDT) Nordiazepam, GCMS Urine NEGATIVE [facility] Comment:CUTOFF: 50 ng/mL Oxazepam, GCMS Urine NEGATIVE [facility] Comment:CUTOFF: 50 ng/mL Lorazepam GCMS Urine NEGATIVE [facility] Comment:CUTOFF: 50 ng/mL Alprazolam, GCMS Urine NEGATIVE [facility] Comment:CUTOFF: 25 ng/mL Alphahydroxytriazolam, GCMS Ur NEGATIVE [facility] Comment:CUTOFF: 50 ng/mL Temazepam, GCMS Urine NEGATIVE [facility] Comment:CUTOFF: 50 ng/mL Alphahydroxymidazolam,GC MS Ur NEGATIVE [facility] Comment:CUTOFF: 50 ng/mL Aminoclonazepam, GCMS Urine NEGATIVE [facility] Comment:CUTOFF: 25 ng/mL Flurazepam Metabolite,GCMS Ur NEGATIVE [facility] Comment:CUTOFF: 50 ng/mL Benzodiazepines Comments SEE NOTE [facility] Comment:This drug testing is for medical treatment only. Analysiswas performed as non-forensic testing and these resultsshould be used only by healthcare providers to renderdiagnosis or treatment, or to monitor progress of medicalconditions.LDT Notes:Confirmation tests were developed and their analyticalperformance characteristics have been determined by [employer]. It has not been cleared or approved by the FDA.This assay has been validated pursuant to the CLIAregulations and is used for clinical purposes.Healthcare Providers needing Interpretation assistance,please contact us at [phone] ( ) M-F,8am to 10pm ESTPERFORMING SITE:[facility] [employer] [facility], [address] [place] [phone] Parcel Carrier: NILSA MATTHEWS MD, CLIA:[id number] Urine (Urine, Random) 04/10/2025 10:00 AM EDT 04/10/2025 1:08 PM EDT [facility] LAB URINE ORDERABLES Final Resul t [facility] [address] [place] [address] [phone] * Drug Monitoring, Methadone Metabolite, Screen, Urine (04/10/2025 10:00 AM EDT) Methadone Screen, Urine Not Detected Not Detect ng/mL [facility] Comment:Methadone cut-off is 300 ng/mL.Positive results are unconfirmed and should not be used fornon-medical purposes. Urine (Urine, Random) 04/10/2025 10:00 AM EDT 04/10/2025 1:08 PM EDT us Michael Yanez ANP LAB URINE ORDERABLES Final Resul t [facility] [address] [place] [phone] * US Abdomen Limited (04/05/2025 12:53 PM EDT) Anatomical Region Laterality Modality Abdomen Ultrasound 04/05/2025 12:5 3 PM EDT Narrative 04/05/2025 1:28 PM EDT [address] [address] Ultrasound Report Signed Patient: Laura Gonzalez MR#: [id number] : 1965 Acct:[id number] Age/Sex: 60 / F ADM Date: 04/05/25 Loc: HO.ED Attending Dr: Ordering Physician: Alisha Saldivar PA-C Date of Service: 04/05/25 Procedure(s): US abdomen limited Accession Number(s): [id number] cc: Alisha Saldivar PA-C; MICHAEL YANEZ NP [...] 04/05/25 1325 DD/ 1253 TD/TT: 04/05/25 1302 Log Grader: Procedure Note Donotuseinterpreter, Image - 04/05/[address] [address] Ultrasound Report Signed Patient: Aleksandar Gonzalez#: [id number] : 1965Acct:[id number] Age/Sex: 60 / FADM Date: 04/05/25 Loc: HO.ED Attending Dr: Ordering Physician: Alisha Saldivar PA-C Date of Service: 04/05/25 Procedure(s): US abdomen limited Accession Number(s): [id number] cc: Alisha Saldivar PA-C; MICHAEL YANEZ NP [...] 04/05/25 1325 DD/ 1253 TD/TT: 04/05/25 1302 Log Grader: [facility] External Provider IMG US PROCEDURES Final Result * (ABNORMAL) Urinalysis, Complete, with Reflex to Culture (04/05/2025 10:08 AM EDT) Color Urine Yellow [facility] Appearance Urine Turbid [facility] PH 7.0 5.0 - 9.0 [facility] Glucose Urine UA Negative Negative mg/dL [facility] Urine Blood Negative Negative [facility] Specific [place] - Urine 1.015 1.005 - 1.025 [facility] Urine Protein Negative Neg-Trace mg/dL [facility] Urine Ketones Negative Negative mg/dL [facility] Nitrite Urine Negative Negative [facility] Leukocyte Esterase Urine Moderate (2+)(A) Negative [facility] RBC Urine 0-2 0 - 2 /HPF [facility] Urine WBC 6-10(A) 0 - 5 /HPF [facility] Urine Squamous Epithelial Cell 0-2 0 - 2 /HPF [facility] Urine Bacteria None Seen None Seen [facility] Hyaline Casts, Urine 0-2 0 - 2 /LPF [facility] 04/05/2025 10:0 8 AM EDT 04/05/2025 10:13 AM EDT Narrative [facility] - 04/05/2025 10:22 AM EDT Urine, Clean Catch Generic External Data Provider LAB URINE ORDERAB LES Final Result [facility] [address] [place] [address] [phone] * D Dimer High Sensitivity (04/05/2025 10:05 AM EDT) Only the most recent of2 resultswithin the time period is included. [facility] D Dimer High Sensitivity 164 NG/ML [facility] Comment:D-DIMER HS REFERENCE RANGENote: Our assay [...] ORDERAB LES Final Result Performing Organization Address [facility] de Phone Number [facility] [address] [place] [address] [phone] * High Sensitivity Troponin I (04/05/2025 10:05 AM EDT) Only the most recent of2 resultswithin the time period is included. [facility] TROPONIN I HIGH SENSITIVITY <2.7 <3.5 - 17.0 ng/L [facility] Comment:The Brar high sens itivity Troponin-I results should beused in conjunction with other diagnostic information suchas ECG, clinical observations and information, and patientsymptoms to aid in the diagnosis of [place]. 04/05/2025 10:0 5 AM EDT 04/05/2025 10:08 AM EDT us Generic External Data Provider LAB BLOOD ORDERAB LES Final Result Performing Organization Address [facility] Co de Phone Number [facility] [address] [place] [phone] * (ABNORMAL) CBC auto differential (04/05/2025 10:05 AM EDT) Only the most recent of2 resultswithin the time period is included. [facility] White Blood Count 4.4(L) 4.8 - 10.8 X10*3/uL [facility] Red Blood Count 4.62 4.20 - 5.50 X10*6/uL [facility] Hemoglobin 13.6 12.0 - 16.0 g/dl [facility] Hematocrit 41.1 37.0 - 47.0 % [facility] Mean Corpuscular Volume 89.0 80.0 - 98.0 fL [facility] Mean Corpuscular Hemoglobin 29.4 27.0 - 33.0 pg [facility] Mean Corpuscular HGB Conc 33.1 31.0 - 35.0 g/dl [facility] Red Cell Distribution Width 13.5 11.0 - 16.0 % [facility] Platelet Count 235 160 - 400 X10*3/uL [facility] Mean Platelet Volume 8.0(L) 9.4 - 12.3 fL [facility] Neutrophils Percent Auto 42.5(L) 45 - 73 % [facility] Imm Gran Pct Auto 0.2 0.0 - 0.4 % [facility] Lymphocytes Percent Auto 41.9(H) 20 - 40 % [facility] Monocytes Percent Auto 11.3(H) 2 - 11 % [facility] Eosinophils Percent Auto 3.2 0 - 4 % [facility] Basophils Percent Auto 0.9 0 - 2 % [facility] NRBC Pct Auto 0.0 0.0 - 0.2 /100WBC [facility] Neutrophils Absolute Auto 1.9(L) 2.0 - 8.3 x10*3/uL [facility] Imm Gran Abs Auto 0.01 0.00 - 0.03 X10*3/uL [facility] Lymphocytes Absolute Auto 1.9 1.2 - 4.9 X10*3/uL [facility] Monocytes Absolute Auto 0.5 0.1 - 1.2 X10*3/uL [facility] Eosinophils Absolute Auto 0.1 0.0 - 0.4 X10*3/uL [facility] Basophils Absolute Auto 0.0 0.0 - 0.2 X10*3/uL [facility] NRBC Abs Auto 0.000 0.0 - 0.012 X10*3/uL [facility] 04/05/2025 10:0 5 AM EDT 04/05/2025 10:08 AM EDT us Generic External Data Provider LAB BLOOD ORDERAB LES Final Result Performing Organization Address City/[facility]/ZIP Co de Phone Number [facility] [address] [place] [phone] * Lipase (04/05/2025 10:05 AM EDT) Only the most recent of2 resultswithin the time period is included. Lipase 19 8 - 78 U/L [facility] 04/05/2025 10:0 5 AM EDT 04/05/2025 10:08 AM EDT us Generic External Data Provider LAB BLOOD ORDERAB LES Final Result Performing Organization Address City/[facility]/ZIP Co de Phone Number [facility] [address] [place] [phone] * (ABNORMAL) Comprehensive Metabolic Panel (04/05/2025 10:05 AM EDT) Sodium 141 135 - 145 mmol/L [facility] Potassium 4.7 3.3 - 5.1 mmol/L [facility] Chloride 112(H) 96 - 108 mmol/L [facility] Carbon Dioxide 23 22 - 29 mmol/L [facility] Anion Gap 11(L) 12 - 20 [facility] Urea Nitrogen (BUN) 13 9 - 16 mg/dL [facility] Creatinine, Serum 0.70 0.5 - 1.4 mg/dL [facility] Creatinine Clr Calc Pharmacy 85.1 [facility] Comment:Provided height and weight: 165.1 cm,70.307 kg.eGFR (calculated from the MDRD study equation) and eCrCl(calculated from the Cockcroft-Gault equation) are based ondifferent parameters and may not yield comparable results.If eCrCl result is absurd, please check patient'sheight/weight. Estimated Glomerular Filt Rate >60 [facility] Comment:Chronic Kidney Disea se: Estimated GFR < 60 mL/min/1.21r6Kevrlo Kidney Disease: Estimated GFR < 15 mL/min/1.73m2 Glucose 96 60 - 115 mg/dL [facility] Calcium 8.9 8.4 - 10.2 mg/dL [facility] Bilirubin, Total 0.8 0.0 - 1.0 mg/dL [facility] Aspartate Amino Transferase 27 5 - 31 U/L [facility] Alanine Aminotransferase 41(H) 0 - 31 U/L [facility] Total Protein 6.6 6.5 - 8.0 g/dL [facility] Albumin Level 3.9 3.5 - 5.0 g/dL [facility] Alkaline Phosphatase 98 39 - 117 U/L [facility] 04/05/2025 10:0 5 AM EDT 04/05/2025 10:08 AM EDT us Generic External Data Provider LAB BLOOD ORDERAB LES Final Result Performing Organization Address City/State/[facility] Co de Phone Number [facility] [address] [place] [phone] * CT Abdomen Pelvis w/o Contrast (04/05/2025 9:45 AM EDT) Anatomical Region Laterality Modality Body, Pelvis, Abdomen Computed T omography 04/05/2025 9:45 AM EDT Narrative 04/05/2025 10:20 AM EDT [address] [address] [address] Scan Report Signed Patient: Laura Gonzalez MR#: [id number] : 1965 Acct:[id number] Age/Sex: 60 / F ADM Date: 04/05/25 Loc: HO.ED Attending Dr: Ordering Physician: Alisha Saldivar PA-C Date of Service: 04/05/25 Procedure(s): CT abdomen pelvis wo IV con Accession Number(s): [id number] cc: Alisha Saldivar PA-C; MICHAEL YANEZ NP Report Number: [id number]: Total DLP = 431.00 mGy-cm EXAMINATION: CT [...] 04/05/25 1018 DD/ 0945 TD/TT: 04/05/25 1000 Log Grader: Procedure Note Donotuseinterpreter, Image - 04/05/[address] [place] [address] [address] Scan Report Signed Patient: Aleksandar Gonzalez#: [id number] : 1965Acct:[id number] Age/Sex: 60 / FADM Date: 04/05/25 Loc: HO.ED Attending Dr: Ordering Physician: Alisha Saldivar PA-C Date of Service: 04/05/25 Procedure(s): CT abdomen pelvis wo IV con Accession Number(s): [id number] cc: Alisha Saldivar PA-C; MICHAEL YANEZ NP Report Number: [id number]: Total DLP = 431.00 mGy-cm EXAMINATION: CT [...] Gallo Schuster MD 04/05/2025 10:18 AM EDT RP Dictated By: Gallo Schuster MD Signed By: <Electronically signed by Gallo Schuster MD in OV> 04/05/25 1018 DD/ 0945 TD/TT: 04/05/25 1000 Log Grader: [facility] External Provider IMG CT PROCEDURES Final Result * XR Chest 2 Views (04/05/2025 8:44 AM EDT) Only the most recent of3 resultswithin the time period is included. Anatomical Region Laterality Modality Chest Radiographic Jennifer ging 04/05/2025 8:44 AM EDT Narrative 04/05/2025 9:59 AM EDT [place] [address] XRay Report Signed Patient: Laura Gonzalez MR#: [id number] : 1965 Acct:[id number] Age/Sex: 60 / F ADM Date: 04/05/25 Loc: .ED Attending Dr: Ordering Physician: Alisha Saldivar PA-C Date of Service: 04/05/25 Procedure(s): XR chest 2V Accession Number(s): [id number] cc: Alisha Saldivar PA-C; MICHAEL YANEZ NP [...] in OV> 04/05/2556 DD/ 3 TD/TT: 04/05/25941 Log Grader: Procedure Note Jayda, Frances - 04/05/2025 [place] [address] XRay Report Signed Patient: Aleksandar Gonzalez#: [id number] : 1965Acct:[id number] Age/Sex: 60 / FADM Date: 04/05/25 Loc: .ED Attending Dr: Ordering Physician: Alisha Saldivar PA-C Date of Service: 04/05/25 Procedure(s): XR chest 2V Accession Number(s): [id number] cc: Alisha Saldivar PA-C; MICHAEL YANEZ NP [...] by Gallo Schuster MD in OV> 04/05/25 0956 DD/ 3 TD/TT: 04/05/25941 Log Grader: [facility] External Provider IMG XR PROCEDURES Final Result * Culture, Urine, Routine (04/05/2025 12:00 AM EDT) Only the most recent of2 resultswithin the time period is included. Urine Urine specimen obtained by clean catch procedure / Unknown 04/05/2025 04/05/2025 Comment:UACC Narrative [facility] - 04/06/2025 10:53 AM EDT Urine Culture No growth. Specimen Source: Urine clean catch Generic External Data Provider LAB MICROBIOLOGY - GENERAL ORDERABLES Final Result Performing Organization Address City/[facility] Co de Phone Number [facility] [address] [place] [phone] * Creatinine, Serum (04/04/2025 2:21 PM EDT) Creatinine, Serum 0.78 0.5 - 1.4 mg/dL [facility] Estimated Glomerular Filt Rate >60 [facility] Comment:Chronic Kidney Disea se: Estimated GFR < 60 mL/min/1.14b0Xbffzm Kidney Disease: Estimated GFR < 15 mL/min/1.73m2 Blood Venous blood specimen / Unknown 04/04/2025 2:21 PM EDT 04/04/2025 2:21 PM EDT Jaleel Block MD LAB BLOOD ORDERABLES Final Resul t Performing Organization Address [facility] Co de Phone Number [facility] [address] [place] [phone] * BUN (Blood Urea Nitrogen) (04/04/2025 2:21 PM EDT) Urea Nitrogen (BUN) 11 9 - 16 mg/dL [facility] Blood Venous blood specimen / Unknown 04/04/2025 2:21 PM EDT 04/04/2025 2:21 PM EDT Jaleel Block MD LAB BLOOD ORDERABLES Final Resul t Performing Organization Address [facility] Co de Phone Number [facility] [address] [place] [phone] * (ABNORMAL) Comprehensive Metabolic Panel, Fasting (03/10/2025 11:57 AM EDT) Sodium 139 135 - 145 mmol/L [facility] Potassium 4.0 3.3 - 5.1 mmol/L [facility] Chloride 107 96 - 108 mmol/L [facility] Carbon Dioxide 26 22 - 29 mmol/L [facility] Anion Gap 10(L) 12 - 20 [facility] Urea Nitrogen (BUN) 11 9 - 16 mg/dL [facility] Creatinine, Serum 0.77 0.5 - 1.4 mg/dL [facility] Creatinine Clr Calc Pharmacy 73.6 [facility] Comment:Provided height and weight: 167.64 cm,67.7 kg.eGFR (calculated from the MDRD study equation) and eCrCl(calculated from the Cockcroft-Gault equation) are based ondifferent parameters and may not yield comparable results.If eCrCl result is absurd, please check patient'sheight/weight. Estimated Glomerular Filt Rate >60 [facility] Comment:Chronic Kidney Disea se: Estimated GFR < 60 mL/min/1.76i1Bqacgj Kidney Disease: Estimated GFR < 15 mL/min/1.73m2 Glucose Fasting 95 60 - 99 mg/dL [facility] Calcium 8.9 8.4 - 10.2 mg/dL [facility] Bilirubin, Total 0.8 0.0 - 1.0 mg/dL [facility] Aspartate Amino Transferase 27 5 - 31 U/L [facility] Alanine Aminotransferase 29 0 - 31 U/L [facility] Total Protein 7.1 6.5 - 8.0 g/dL [facility] Albumin Level 4.2 3.5 - 5.0 g/dL [facility] Alkaline Phosphatase 100 39 - 117 U/L [facility] 03/10/2025 11:5 7 AM EDT 03/10/2025 12:00 PM EDT us Generic External Data Provider LAB BLOOD ORDERAB LES Final Result [facility] [address] [place] [phone] [phone] * Magnesium (03/10/2025 11:57 AM EDT) Magnesium 2.3 1.6 - 2.6 mg/dL [facility] 03/10/2025 11:5 7 AM EDT 03/10/2025 12:00 PM EDT us Generic External Data Provider LAB BLOOD ORDERAB LES Final Result [facility] [address] [place] [phone] * XR Hip left with Pelvis 1 view (02/24/2025 12:58 PM EDT) Anatomical Region Laterality Modality Lower Extremities, Hip Bilateral Radiograp hic Imaging 02/24/2025 12:5 8 PM EDT Narrative 02/24/2025 12:59 PM EDT [address] [address] XRay Report Signed Patient: Laura Graham MR#: [id number] 27 : 1965 Acct:[id number] Age/Sex: 60 / F ADM Date: 02/24/25 Loc: HO.ED Attending Dr: Ordering Physician: Garth Pedersen Date of Service: 02/24/25 Procedure(s): XR hip LT w PEL1V Accession Number(s): [id number] cc: Garth Pedersen; MICHAEL YANEZ NP CLINICAL HISTORY: fall Exam: AP pelvis with AP and frog-leg lateral views of the left hip. Comparison: CT/[place] - CT ABDOMEN PELVIS WO IV CON [...] OV> 02/24/25 1259 DD/ 1258 TD/TT: 02/24/25 125 Log Grader: Procedure Note Jayda, Frances - 02/24/[address] [address] XRay Report Signed Patient: Aleksandar Graham#: [id number] 27 : 1965Acct:[id number] Age/Sex: 60 / FADM Date: 02/24/25 Loc: HO.ED Attending Dr: Ordering Physician: Garth Pedersen Date of Service: 02/24/25 Procedure(s): XR hip LT w PEL1V Accession Number(s): [id number] cc: Garth Pedersen; MICHAEL YANEZ NP CLINICAL HISTORY: fall Exam: AP pelvis with AP and frog-leg lateral views of the left hip. Comparison: CT/[place] - CT ABDOMEN PELVIS WO IV CON [...] OV> 02/24/25 1259 DD/ 1258 TD/TT: 02/24/251257 Log Grader: us [facility] External Provider IMG XR PROCEDURES Final Result * XR Shoulder 2+ Views Left (02/24/2025 12:58 PM EDT) Anatomical Region Laterality Modality Upper Extremities, Shoulder Left Radi ographic Imaging 02/24/2025 12:5 8 PM EDT Narrative 02/24/2025 12:59 PM EDT [address] [address] XRay Report Signed Patient: Laura Graham MR#: [id number] 27 : 1965 Acct:[id number] Age/Sex: 60 / F ADM Date: 02/24/25 Loc: HO.ED Attending Dr: Ordering Physician: Garth Pedersen Date of Service: 02/24/25 Procedure(s): XR shoulder LT min 2V Accession Number(s): [id number] cc: Garth Pedersen; MICHAEL YANEZ NP CLINICAL [...] 02/24/25 1259 DD/ 1258 TD/TT: 02/24/25 1258 Log Grader: Procedure Note Donotuseinterpreter, Image - 02/24/[address] [address] XRay Report Signed Patient: Paz GrahamR#: [id number] 27 : 1965Acct:[id number] Age/Sex: 60 / FADM Date: 02/24/25 Loc: .ED Attending Dr: Ordering Physician: Garth Pedersen Date of Service: 02/24/25 Procedure(s): XR shoulder LT min 2V Accession Number(s): [id number] cc: Garth Pedersen; MICHAEL YANEZ NP CLINICAL [...] OV> 02/24/25 1259 DD/ 1258 TD/TT: 02/24/251257 Log Grader: us [facility] External Provider IMG XR PROCEDURES Final Result * XR Knee 4+ Views Left (02/24/2025 12:55 PM EDT) Anatomical Region Laterality Modality Lower Extremities, Knee Left Radiogra phic Imaging 02/24/2025 12:5 5 PM EDT Narrative 02/24/2025 12:57 PM EDT [address] [address] XRay Report Signed Patient: Laura Graham MR#: [id number] 27 : 1965 Acct:[id number] Age/Sex: 60 / F ADM Date: 02/24/25 Loc: .ED Attending Dr: Ordering Physician: Garth Pedersen Date of Service: 02/24/25 Procedure(s): XR knee LT 4V Accession Number(s): [id number] cc: Garth Pedersen; MICHAEL YANEZ NP CLINICAL [...] in OV> 02/24/25 1257 DD/ 1255 TD/TT: 02/24/251254 Log Grader: Procedure Note Donotuseinterpreter, Image - 02/24/[address] [address] XRay Report Signed Patient: aPz GrahamR#: [id number] 27 : 1965Acct:[id number] Age/Sex: 60 / FADM Date: 02/24/25 Loc: HO.ED Attending Dr: Ordering Physician: Garth Pedersen Date of Service: 02/24/25 Procedure(s): XR knee LT 4V Accession Number(s): [id number] cc: Garth Pedersen; MICHAEL YANEZ NP CLINICAL [...] 02/24/25 1257 DD/ 1255 TD/TT: 02/24/25 1255 Log Grader: [facility] External Provider IMG XR PROCEDURES Final Result * BI Mammogram Screening Tomosynthesis Bilateral (02/05/2025 12:34 PM EDT) Anatomical Region Laterality Modality Breast Bilateral Mammography 02/05/2025 12:3 4 PM EDT Narrative 02/12/2025 2:54 PM EDT [address] [place] [address] Mammography Report Signed Patient: Laura Graham MR#: [id number] 27 : 1965 Acct:[id number] Age/Sex: 60 / F ADM Date: 02/05/25 Loc: HO.MAMMO Attending Dr: Alex Machuca MD Ordering Physician: Alex Machuca MD Results: 2Benign Findings Date of Service: 02/05/25 Follow Up: 1 Year From Orig inal Mammogram Procedure(s): MM tomosynthesis screening BI Accession Number(s): [id number] cc: MICHAEL YANEZ NP; Alex Machuca MD [...] Kyleigh Buenrostro DO 02/12/2025 02:51 PM EDT RP Dictated By: Kyleigh Buenrostro DO Signed By: <Electronically signed by Kyleigh Buenrostro DO in OV> 02/12/25 1451 DD/ 1234 TD/TT: 02/05/25 1248 Log Grader: Procedure Note Donotuseinterpreter, Image - 02/12/[facility] [address] [place] [address] Mammography Report Signed Patient: Aleksandar Graham#: [id number] 27 : 1965Acct:[id number] Age/Sex: 60 / FADM Date: 02/05/25 Loc: HO.MAMMO Attending Dr: Alex Machuca MD Ordering Physician: Alex Machuca MDResults: 2Benign Findings Date of Service: 02/05/25Follow Up: 1 Year From Orig inal Mammogram Procedure(s): MM tomosynthesis screening BI Accession Number(s): [id number] cc: MICHAEL YANEZ NP; Alex Machuca MD [...] Kyleigh Buenrostro DO 02/12/2025 02:51 PM EDT RP Dictated By: Kyleigh Buenrostro DO Signed By: <Electronically signed by Kyleigh Buenrostro DO in OV> 02/12/25 1451 DD/ 1234 TD/TT: 02/05/25 1248 Log Grader: [facility] External Provider IMG BI PROCEDURES Final Result * (ABNORMAL) Lipid Panel, Standard (08/25/2024 10:00 AM EST) Triglycerides 61 <150 mg/dL [facility] Comment:Desirable Triglyceri de: less than 150 mg/dLBorderline High Triglyceride 150-199 mg/dLHigh Triglyceride: 200-499 mg/dLVery High Triglyceride: greater than or equal to 5OO mg/dL Cholesterol 173 <200 mg/dL [facility] Comment:Desirable Cholestero l: less than 200 mg/dLBorderline High Cholesterol: 200-239 mg/dLHigh Cholesterol: greater than 239 mg/dL LDL Cholesterol Calculated 105(H) <100 mg/dL [facility] Comment:Desirable LDL: less than 100 mg/dLNear Optimal/Above Optimal LDL: 110- 129 mg/dLBorderline High LDL: 130-159 mg/dLHigh LDL: 160-189 mg/dLVery High LDL: greater than or equal to 190 mg/dL HDL Cholesterol 56 >40 mg/dL [facility] Comment:Desirable HDL: great er than 40 mg/dL Note: This HDL assay may give artificially low results in patients with liver disease. 08/25/2024 10:0 0 AM EST 08/25/2024 11:37 AM EST Michael Yanez [facility] BLOOD ORDERABLES Final Resul t Performing Organization Address City/[facility] Co de Phone Number [facility] [address] [place] [phone] * HIV-1/2 Antigen and Antibodies, Fourth Generation, with Reflexes (01/04/2024 9:49 AM EDT) HIV AB/AG Nonreactive Nonreactive [facility] Comment:HIV-1 p24 Ag and/or HIV-1/HIV-2 Ab not detected.A test result that is nonreactive does not exclude thepossibility of exposure to or infection with HIV-1 and/orHIV-2. Nonreactive results in this assay for individualswith prior exposure to HIV-1 and/or HIV-2 may be due toantigen and antibody levels that are below the limit ofdetection of this assay.The LinksifyniStrongView HIV Ag/Ab Combo assay result andsupplemental assay results should be interpreted inconjunction with the patient's clinical presentation,history and other laboratory results. If the results areinconsistent with clinical evidence, additional testing issuggested to confirm the result. Blood Venous blood specimen / Unknown 01/04/2024 9:49 AM EDT 01/04/2024 11:50 AM EDT Michael Yanez [facility] LAB BLOOD ORDERABLES Final Resul t Performing Organization Address [facility] Co de Phone Number [facility] [address] [place] [phone] * Hepatitis C Ab (09/09/2022 10:23 AM EST) Hepatitis C Antibody Nonreactive Nonreactive [facility] Comment:Antibodies to HCV no t detected; does not exclude early acuteHCV infection. 09/09/2022 10:2 3 AM EST 09/09/2022 10:23 AM EST [facility] External Provider LAB BLO OD ORDERABLES Final Result [facility] [address] [place] [phone] [phone] * Hm Colonoscopy (07/08/2021 12:15 PM EST) Colonoscopy Normal Normal Fidencio Vila MD HEALTH MAINTENANCE Edited Re sult - Final from Last 3 Months or Most Recently Relevant to Health Maintenance Insurance [facility] C3 DENTAL-[facility] MEDICAID STAND ADULT [employer] Care Teams Ripening Room Attendant Relationship Specialty Start Date End Date Michael Yanez ANP [address] [place] [address] PCP - General Family Medicine 01/16/20 Abel Chavarria RN [address] [place] [address] Registered Nurse Family Medicine 02/26/25 Margareth Chavarria 02/26/25
--- OUTSIDE RECORDS SUMMARY | 2025-05-13 09:42 | XMS_ITS | Encounter Summary ---
Author Organization [employer] Address [address] [place] [address] Street [address] [place] [address] Care Team Providers Care Right Of Way Buyer Name Role Phone Nupur Weir Primary Care Provider Abel Chavarria RN Unavailable [phone] Margareth Chavarria Unavailable Reason for Visit * Reason Comments Med Refill Encounter Details Date Type Department Care Team (Late st Contact Info) Description 07/22/2024 Refill [facility] [address] [place] [address] Nupur Weir ANP [address] [place] [address] Social History Tobacco Use Types Packs/Day Years [...] the past 12 months, has t he [employer], gas, oil or water [employer] threatened to shut off services in your [...] Description 05/15/2025 9:15 AM EDT Office Visit [address] [address] Nupur Weir ANP [address] [place] [address] 06/12/2025 9:45 AM EDT Office Visit [address] [address] 09/28/2025 9:30 AM EST Medication Management [address] [address] Fay Leigh, PharmD [address] [place] [address] documented as of this encounter Visit Diagnoses Not on filedocumented in this encounter Care Teams Right Of Way Buyer Relationship Specialty Start Date End Date Nupur Weir ANP [address] [place] [address] PCP - General Family Medicine 01/16/20 Abel Chavarria RN [address] [place] [address] Registered Nurse Family Medicine 02/26/25 Margareth Chavarria 02/26/25 documented as of this encounter
--- OUTSIDE RECORDS SUMMARY | 2025-05-13 09:42 | XMS_ITS | Encounter Summary ---
Author Organization [employer] Address [address] [place] [address] Street [address]t [place] [address] Care Team Providers Care Seed Cone Picker Name Role Phone Nupur Weir Primary Care Provider [phone] Abel Chavarria RN Unavailable [phone] Margareth Chavarria Unavailable Reason for Visit * Reason Comments Med Refill Encounter Details Date Type Department Care Team (Late st Contact Info) Description 12/22/2024 Refill [facility] [address] [place] [address] Nupur Weir ANP [address] [place] [address] Arthralgia, unspecified joint Social History Tobacco Use [...] t he electric, gas, oil or water [employer] threatened to shut off services in your [...] Description 05/15/2025 9:15 AM EDT Office Visit [facility] [address] [place] [address] Nupur Weir ANP [address] [place] [address] 06/12/2025 9:45 AM EDT Office Visit [address] [address] 09/28/2025 9:30 AM EST Medication Management [address] [address] Fay Leigh, MayoD [address] [place] [address] documented as of this encounter Visit Diagnoses Diagnosis Arthralgia, unspecified joint documented in this encounter Care Teams Seed Cone Picker Relationship Specialty Start Date End Date Nupur Weir ANP [address] [place] [address] PCP - General Family Medicine 01/16/20 Abel Chavarria, ILENE [address] [place] [address] Registered Nurse Family Medicine 02/26/25 Margareth Chavarria 02/26/25 documented as of this encounter
--- OUTSIDE RECORDS SUMMARY | 2025-05-13 09:42 | XMS_ITS | Encounter Summary ---
Author Organization [facility] Address [address] [place] [address] 7t [place] [address] Care Team Providers Care Roll Winder Name Role Phone Nupur Weir Primary Care Provider [phone] Abel Chavarria RN Unavailable [phone] Margareth Chavarria Unavailable Reason for Visit * Reason Comments Med Refill Encounter Details Date Type Department Care Team (Late st Contact Info) Description 01/09/2023 Refill [facility] [address] [place] [address] Nupur Weir ANP [address] [place] [address] Arthralgia, unspecified joint; Other specified hypothyroidism Social [...] 05/15/2025 9:15 AM EDT Office Visit [address] [address] Nupur Weir ANP [address] [place] [address] 06/12/2025 9:45 AM EDT Office Visit [address] [address] 09/28/2025 9:30 AM EST Medication Management [address] [address] Fay Leigh, PharmD [address] [place] [address] documented as of this encounter Visit Diagnoses Diagnosis Arthralgia, unspecified joint Other specified hypothyroidism documented in this encounter Care Teams Roll Winder Relationship Specialty Start Date End Date Nupur Weir ANP [address] [place] [address] PCP - General Family Medicine 01/16/20 Abel Chavarria, RN [address] [place] [address] Registered Nurse Family Medicine 02/26/25 Margareth Chavarria 02/26/25 documented as of this encounter
--- OUTSIDE RECORDS SUMMARY | 2025-05-13 09:42 | XMS_ITS | Encounter Summary ---
Author Organization [employer] Address [address] [place] [address] Care Team Providers Care Public Relations Counselor Name Role Phone Nupur Weir Primary Care Provider [phone] Abel Chavarria RN Unavailable [phone] Margareth Chavarria Unavailable Reason for Visit * Reason Comments Med Refill Encounter Details Date Type Department Care Team (Late st Contact Info) Description 11/11/2023 Refill [facility] [address] [place] [address] Nupur Weir ANP [address] [place] [address] Social History Tobacco Use Types Packs/Day Years [...] Description 05/15/2025 9:15 AM EDT Office Visit [address] [address] Nupur Weir ANP [address] [place] [address] 06/12/2025 9:45 AM EDT Office Visit [address] [address] 09/28/2025 9:30 AM EST Medication Management [address] [address] Fay Leigh, PharmD [address] [place] [address] documented as of this encounter Visit Diagnoses Not on filedocumented in this encounter Care Teams Public Relations Counselor Relationship Specialty Start Date End Date Nupur Weir ANP [address] [place] [address] PCP - General Family Medicine 01/16/20 Abel Chavarria, ILENE [address] [place] [address] Registered Nurse Family Medicine 02/26/25 Margareth Chavarria 02/26/25 documented as of this encounter
--- OUTSIDE RECORDS SUMMARY | 2025-05-13 09:42 | XMS_ITS | Encounter Summary ---
Author Organization [employer] Address [address] [place] [address] Care Team Providers Care Work Distributor Name Role Phone Nupur Weir Primary Care Provider [phone] Abel Chavarria RN Unavailable [phone] Margareth Chavarria Unavailable Reason for Visit * Reason Comments Med Refill Encounter Details Date Type Department Care Team ([facility] st Contact Info) Description 06/19/2024 Refill [facility] [address] [place] [address] Nupur Weir ANP [address] [place] [address] Other specified hypothyroidism Social History Tobacco Use [...] Description 05/15/2025 9:15 AM EDT Office Visit [address] [address] Nupur Weir ANP [address] [place] [address] 06/12/2025 9:45 AM EDT Office Visit [address] [address] 09/28/2025 9:30 AM EST Medication Management [address] [address] Fay Leigh PharmD [address] [place] [address] documented as of this encounter Visit Diagnoses Diagnosis Other specified hypothyroidism documented in this encounter Care Teams Work Distributor Relationship Specialty Start Date End Date Nupur Weir ANP [address] [place] [address] PCP - General Family Medicine 01/16/20 Abel Chavarria, ILENE [address] [place] [address] Registered Nurse Family Medicine 02/26/25 Margareth Chavarria 02/26/25 documented as of this encounter
--- OUTSIDE RECORDS SUMMARY | 2025-05-13 09:42 | XMS_ITS | Encounter Summary ---
Author Organization [email or web address] Address [address] 7[address] [place] [address] Care Team Providers Care Cruise Coordinator Name Role Phone Nupur Weir Primary Care Provider [phone] Abel Chavarria RN Unavailable [phone] Margareth Chavarria Unavailable Reason for Visit * Reason Comments Med Refill Encounter Details Date Type Department Care Team (Late st Contact Info) Description 03/22/2024 Refill [facility] MED[facility]INE [address] [place] [address] Marcella Colindres MD [address] [place] [address] Acute pyelonephritis Social History Tobacco Use Types [...] Description 05/15/2025 9:15 AM EDT Office Visit [address] [address] Nupur Weir ANP [address] [place] [address] 06/12/2025 9:45 AM EDT Office Visit [address] [address] 09/28/2025 9:30 AM EST Medication Management [address] [address] Fay Leigh PharmD [address] [place] [address] documented as of this encounter Visit Diagnoses Diagnosis Acute pyelonephritis 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 documented in this encounter Care Teams Cruise Coordinator Relationship Specialty Start Date End Date Nupur Weir ANP [address] [place] [address] PCP - General Family Medicine 01/16/20 Abel Chavarria RN [address] [place] [address] Registered Nurse Family Medicine 02/26/25 Margareth Chavarria 02/26/25 documented as of this encounter
--- OUTSIDE RECORDS SUMMARY | 2025-05-13 09:42 | XMS_ITS | Encounter Summary ---
Author Organization [employer] Address [address] [place] [address] Street 7t [place] [address] Care Team Providers Care Cycle Counter Name Role Phone Nupur Weir Primary Care Provider [phone] Abel Chavarria RN Unavailable [phone] Margareth Chavarria Unavailable Reason for Visit * Reason Comments Med Refill Encounter Details Date Type Department Care Team (Late st Contact Info) Description 12/21/[address] [facility] MEDICINE 230 [place] [address] Nupur Weir ANP [address] [place] [address] Arthralgia, unspecified joint Social History Tobacco Use [...] t he electric, gas, oil or water [employer] threatened to shut off services in your [...] Description 05/15/2025 9:15 AM EDT Office Visit [facility] MED[facility]INE [address] [place] [address] Nupur Weir ANP [address] [place] [address] 06/12/2025 9:45 AM EDT Office Visit [address] [address] 09/28/2025 9:30 AM EST Medication Management [address] [address] Fay Leigh, MayoD [address] [place] [address] documented as of this encounter Visit Diagnoses Diagnosis Arthralgia, unspecified joint documented in this encounter Care Teams Cycle Counter Relationship Specialty Start Date End Date Nupur Weir ANP [address] [place] [address] PCP - General Family Medicine 01/16/20 Abel Chavarria, ILENE [address] [place] [address] Registered Nurse Family Medicine 02/26/25 Margareth Chavarria 02/26/25 documented as of this encounter
--- OUTSIDE RECORDS SUMMARY | 2025-05-13 09:42 | XMS_ITS | Encounter Summary ---
Author Organization [employer] Address [address] [place] [address] 7t [place] [address] Care Team Providers Care Television Anchor Name Role Phone Nupur Weir Primary Care Provider [phone] Aebl Chavarria RN Unavailable [phone] Margareth Chavarria Unavailable Reason for Visit * Reason Onset Date Comments Med Refill 10/01/2023 Encounter Details Date Type Department Care Team ([facility] st Contact Info) Description 10/01/2023 Telephone [facility] MEDICINE 230 [place] [address] Nupur Weir ANP 230 [place] [address] Med Refill Social History Tobacco Use Types [...] Base) MCG/ACT inhaler To be sent to: [id number] [place], [place] - [address] [facility] documented in this encounter Plan of Treatment Upcoming Encounters Date Type Department Care Team (Late st Contact Info) Description 05/15/2025 9:15 AM EDT Office Visit [facility] MEDICINE [address] [place] [address] Nupur Weir, ANP 230 [place] [address] 06/12/2025 9:45 AM EDT Office Visit [facility] MED[facility]INE [address] [place] [address] 09/28/2025 9:30 AM EST Medication Management [facility] MEDICINE [address] [place] [address] Fay Leigh, PharmD 230 [place] [address] documented as of this encounter Visit Diagnoses Not on filedocumented in this encounter Care Teams Television Anchor Relationship Specialty Start Date End Date Nupur Weir ANP 230 [place] [address] PCP - General Family Medicine 01/16/20 Abel Chavarria RN 505 [place] [address] Registered Nurse Family Medicine 02/26/25 Margareth Chavarria 02/26/25 documented as of this encounter
--- OUTSIDE RECORDS SUMMARY | 2025-05-13 09:42 | XMS_ITS | Encounter Summary ---
Author Organization [employer] Address [address] [facility] [address] 7t [place] [address] Care Team Providers Care Metal Shaping Machine Operator Name Role Phone Nupur Weir Primary Care Provider [phone] Abel Chavarria RN Unavailable [phone] Margareth Chavarria Unavailable Reason for Visit * Reason Comments Med Refill Encounter Details Date Type Department Care Team (Late st Contact Info) Description 11/07/2024 Refill [facility] [address] [place] [address] Nupur Weir ANP 230 [place] [address] Primary hypertension; Iron deficiency anemia, unspecified iron [...] 05/15/2025 9:15 AM EDT Office Visit [address] [address] Nupur Weir, ANP 230 [place] [address] 06/12/2025 9:45 AM EDT Office Visit [address] [address] 09/28/2025 9:30 AM EST Medication Management [address] [address] Fay Leigh, Elba [address] [place] [address] documented as of this encounter Visit Diagnoses Diagnosis Primary hypertension Unspecified essential hypertension Iron deficiency anemia, unspecified iron deficiency anemia type documented in this encounter Care Teams Metal Shaping Machine Operator Relationship Specialty Start Date End Date Nupur Weir ANP 230 [place] [address] PCP - General Family Medicine 01/16/20 Abel Chavarria RN [address] [place] [address] Registered Nurse Family Medicine 02/26/25 Margareth Chavarria 02/26/25 documented as of this encounter
--- OUTSIDE RECORDS SUMMARY | 2025-05-13 09:43 | XMS_ITS | Encounter Summary ---
Author Organization [employer] [facility] Address [address] [place] [address] 7t [place] [address] Care Team Providers Care Flat Lock Operator Name Role Phone Nupur Weir Primary Care Provider [phone] Abel Chavarria RN Unavailable Margareth Chavarria Unavailable Encounter Details Date Type Department Care Team (Latest Contact Info) Description 03/26/2022 Abstract [facility] CONVERSIONS Dental, Provider, DDS Social History [...] Visit [facility] MEDICINE [address] [place] [address] Nupur Weir ANP 230 [place] [address] 06/12/2025 9:45 AM EDT Office Visit [facility] MEDICINE [address] [place] [address] 09/28/2025 9:30 AM EST Medication Management [facility] MEDICINE [address] [place] [address] Fay Leigh PharmD 230 [place] [address] documented as of this encounter Visit Diagnoses Not on filedocumented in this encounter Care Teams Flat Lock Operator Relationship Specialty Start Date End Date Nupur Weir ANP 230 [place] [address] PCP - General Family Medicine 01/16/20 Abel Chavarria, ILENE [address] [place] [address] Registered Nurse Family Medicine 02/26/25 Margareth Chavarria 02/26/25 documented as of this encounter
--- OUTSIDE RECORDS SUMMARY | 2025-05-13 09:43 | XMS_ITS | Encounter Summary ---
Author Organization [employer] [facility] Address [address] [place] [address] 7t [place] [address] Care Team Providers Care Rn Cardiovascular Name Role Phone Nupur Weir Primary Care Provider Abel Chavarria RN Unavailable [phone] Margareth Chavarria Unavailable Encounter Details Date Type Department Care Team (Late st Contact Info) Description 08/14/2022 Abstract [facility] ADULT DENTAL [address] [place] [address] Angel Lagos, CAPRI [address] [place] [address] Social History Tobacco Use Types Packs/Day Years [...] Description 05/15/2025 9:15 AM EDT Office Visit [facility] MEDICINE [address] [place] [address] Nupur Weir ANP 230 [place] [address] 06/12/2025 9:45 AM EDT Office Visit [facility] MEDICINE [address] [place] [address] 09/28/2025 9:30 AM EST Medication Management [facility] MEDICINE [address] [place] [address] Fay Leigh, MayoD [address] [place] [address] documented as of this encounter Visit Diagnoses Not on filedocumented in this encounter Care Teams Rn Cardiovascular Relationship Specialty Start Date End Date Nupur Weir ANP 230 [place] [address] PCP - General Family Medicine 01/16/20 Abel Chavarria RN [address] [place] [address] Registered Nurse Family Medicine 02/26/25 Margareth Chavarria 02/26/25 documented as of this encounter
--- OUTSIDE RECORDS SUMMARY | 2025-05-13 09:43 | XMS_ITS | Encounter Summary ---
Author Organization [employer] Address [address] [place] [address] Street 7t [place] [address] Care Team Providers Care Sap Ariba Consultant Name Role Phone Nupur Weir Primary Care Provider [phone] Abel Chavarria RN Unavailable [phone] Margareth Chavarria Unavailable Reason for Visit * Reason Onset Date Comments Med Refill 01/19/2025 Encounter Details Date Type Department Care Team ([facility] st Contact Info) Description 01/19/2025 Telephone [facility] MEDICINE 230 [place] [address] Nupur Weir ANP 230 [place] [address] Med Refill Social History Tobacco Use Types [...] t he electric, gas, oil or water [employer] threatened to shut off services in your [...] 50 MG tablet To be sent to: [facility] pharmacy documented in this encounter Plan of Treatment Upcoming Encounters Date Type Department Care Team (Late st Contact Info) Description 05/15/2025 9:15 AM EDT Office Visit [facility] MEDICINE [address] [place] [address] Nupur Weir ANP 230 [place] [address] 06/12/2025 9:45 AM EDT Office Visit [facility] [address] [place] [address] 09/28/2025 9:30 AM EST Medication Management [facility] [address] [place] [address] Fay Leigh, PharmD [address] [place] [address] documented as of this encounter Visit Diagnoses Not on filedocumented in this encounter Care Teams Sap Ariba Consultant Relationship Specialty Start Date End Date Nupur Weir ANP 230 [place] [address] PCP - General Family Medicine 01/16/20 Abel Chavarria, ILENE [address] [place] [address] Registered Nurse Family Medicine 02/26/25 Margareth Chavarria 02/26/25 documented as of this encounter
--- OUTSIDE RECORDS SUMMARY | 2025-05-13 09:43 | XMS_ITS | Encounter Summary ---
Author Organization [employer] [facility] Address [address] [place] [address] 7t [place] [address] Care Team Providers Care Production Hardener Name Role Phone Nupur Weir Primary Care Provider [phone] Abel Chavarria RN Unavailable [phone] Margareth Chavarria Unavailable Encounter Details Date Type Department Care Team (Late st Contact Info) Description 07/30/2022 Abstract [facility] ADULT DENTAL [address] [place] [address] Dental, Provider, DDS Social History Tobacco Use [...] Description 05/15/2025 9:15 AM EDT Office Visit [facility] MEDICINE [address] [place] [address] Nupur Weir ANP 230 [place] [address] 06/12/2025 9:45 AM EDT Office Visit [facility] MEDICINE [address] [place] [address] 09/28/2025 9:30 AM EST Medication Management [address] [address] Fay Leigh, MayoD 230 [place] [address] documented as of this encounter Procedures Procedure [...] on filedocumented in this encounter Care Teams Production Hardener Relationship Specialty Start Date End Date Nupur Weir ANP 230 [place] [address] PCP - General Family Medicine 01/16/20 Abel Chavarria, ILENE [address] [place] [address] Registered Nurse Family Medicine 02/26/25 Margareth Chavarria 02/26/25 documented as of this encounter
--- OUTSIDE RECORDS SUMMARY | 2025-05-13 09:43 | XMS_ITS | Encounter Summary ---
Author Organization [employer] Address [address] [facility] [address] 7[address] [place] [address] Care Team Providers Care Sheet Rock Taper Name Role Phone Nupur Weir Primary Care Provider [phone] Abel Chavarria RN Unavailable [phone] Margareth Chavarria Unavailable Reason for Visit * Reason Comments Med Refill Encounter Details Date Type Department Care Team (Late st Contact Info) Description 03/11/2025 Refill [facility] MEDICINE 230 [place] [address] Nupur Weir ANP 230 [place] [address] Arthralgia, unspecified joint Social History Tobacco Use [...] Description 05/15/2025 9:15 AM EDT Office Visit [address] [address] Nupur Weir, ANP 230 [place] [address] 06/12/2025 9:45 AM EDT Office Visit [address] [address] 09/28/2025 9:30 AM EST Medication Management [address] [address] Fay Leigh, MayoD [address] [place] [address] documented as of this encounter Visit Diagnoses Diagnosis Arthralgia, unspecified joint documented in this encounter Care Teams Sheet Rock Taper Relationship Specialty Start Date End Date Nupur Weir ANP [address] [place] [address] PCP - General Family Medicine 01/16/20 Abel Chavarria RN 505 [place] [address] Registered Nurse Family Medicine 02/26/25 Margareth Chavarria 02/26/25 documented as of this encounter
--- OUTSIDE RECORDS SUMMARY | 2025-05-13 09:43 | XMS_ITS | Encounter Summary ---
Author Organization [employer] Address [address] [facility] [address] 7t [place] [address] Care Team Providers Care Public Health Nutritionist Name Role Phone Nupur Weir Primary Care Provider [phone] Abel Chavarria RN Unavailable [phone] Margareth Chavarria Unavailable Encounter Details Date Type Department Care Team (Late st Contact Info) Description 04/11/2024 Orders Only [facility] 230 [place] [address] Nupur Weir ANP 230 [place] [address] Social History Tobacco Use Types Packs/Day Years [...] Description 05/15/2025 9:15 AM EDT Office Visit [address] [address] Nupur Weir ANP [address] [place] [address] 06/12/2025 9:45 AM EDT Office Visit [address] [address] 09/28/2025 9:30 AM EST Medication Management [address] [address] Fay Leigh, PharmD [address] [place] [address] documented as of this encounter Visit Diagnoses Not on filedocumented in this encounter Care Teams Public Health Nutritionist Relationship Specialty Start Date End Date Nupur Weir ANP [address] [place] [address] PCP - General Family Medicine 01/16/20 Abel Chavarria, RN [address] [place] [address] Registered Nurse Family Medicine 02/26/25 Margareth Chavarria 02/26/25 documented as of this encounter
[2025-05-13 09:44] VITALS: BP 120/76; PULSE 75; RESP 16; O2SAT 98
[2025-05-13 09:47] LABS: MANUAL DIFF FLAG NO
[2025-05-13 09:49] LABS: Hematocrit 42.3 % (37.0-47.0); Hemoglobin 13.8 g/dl (12.0-16.0); Imm Gran Abs Auto 0.00 X10*3/uL (0.00-0.03); Imm Gran Pct Auto 0.0 % (0.0-0.4); Lymphocytes Absolute Auto 1.7 X10*3/uL (1.2-4.9); Mean Corpuscular HGB Conc 32.6 g/dl (31.0-35.0); Mean Corpuscular Hemoglobin 29.0 pg (27.0-33.0); Mean Corpuscular Volume 88.9 fL (80.0-98.0); NRBC Abs Auto 0.000 X10*3/uL (0.0-0.012); NRBC Pct Auto 0.0 /100WBC (0.0-0.2); Platelet Count 272 X10*3/uL (160-400); Red Blood Count 4.76 X10*6/uL (4.20-5.50); White Blood Count 4.4 X10*3/uL (4.8-10.8)
--- NOTE | 2025-05-13 09:49 | PC.NURSE ---
Patient presents to ED with concerns about previous animal bite. Patient was seen at [facility] for a cat bite and was prescribed ABT, patient believes the medication isnt working Redness reduced from outlined area, afebrile, VSS Patient c/o right leg pain from knee to toes warmth noted at site, denies numbness tingling blood work collected and sent provider in to see patient plan of care on going
[2025-05-13 10:04] LABS: Alanine Aminotransferase 19 U/L (0-31); Albumin Level 4.2 g/dL (3.5-5.0); Alkaline Phosphatase 99 U/L (39-117); Anion Gap 12 (12-20); Aspartate Amino Transferase 23 U/L (5-31); Blood Urea Nitrogen 9 mg/dL (9-16); Calcium 9.4 mg/dL (8.4-10.2); Carbon Dioxide 25 mmol/L (22-29); Chloride 111 mmol/L (96-108); Creatinine Clr Calc Pharmacy 63.3; Estimated Glomerular Filt Rate > 60; Potassium 4.6 mmol/L (3.3-5.1); Sodium 143 mmol/L (135-145); Total Protein 7.1 g/dL (6.5-8.0)
[2025-05-13 12:32] VITALS: BP 117/62; PULSE 63; RESP 15; TEMP 36.1; O2SAT 98
== END 2025-05-13 12:33 | disposition home or self-care (01) ==
PROVIDERS: Registered Nurse Emergency; Emergency Provider Emergency Medicine; PCP Nurse Practitioner Primary Care
DX: S81.851A Open bite, right lower leg, initial encounter (principal); R60.0 Localized edema; W54.0XXA Bitten by dog, initial encounter; Y92.9 Unspecified place or not applicable; Y93.9 Activity, unspecified; Y99.8 Other external cause status; Z79.899 Other long term (current) drug therapy
CPT/HCPCS: 36415; 80053; 85025; 85652; 86140; 93971; 99284

== ENCOUNTER 2025-05-25 15:38 | Outpatient (REF) | payer MEDICAID, SELFPAY ==
--- OUTSIDE RECORDS SUMMARY | 2023-12-29 09:10 | XMS_ITS ---
Author Organization [facility] Address [address] [place] [address] [place] [phone] Care Team Providers Care Gauge Controller Name Role Phone MICHAEL YANEZ N.P. Primary Care Provider Fidencio Langley Jr REASON FOR VISIT rectal bleeding Encounters Encounter Location Date Provider [place] [facility] [place] [address] [place] [id number] 12/29/2023 Fidencio Vila Jr Rectal bleeding K62.5 Assessments Encounter Date Diagnosis (ICD Code) Assessment Notes Treatment Notes Treatment Clinical Notes Section Notes 12/29/2023 Rectal bleeding (ICD-10 - K62.5) Plan Of Treatment Next Appt Details Provider Name:Fidencio haider Jr, 07/18/2025 11:20:00 AM, [address] [place] [address], Suite [facility], [place], [address], Progress Notes * TIFFANIE TYLERMACB: 6 (60 yo F)Acc No.[id number]:12/29/2023 COLON WITH MAC Patient: TAY CAPELLAN Provider: Remi Vila MD :1965 A ge:58 Y S ex:Female Date:12/29/2023 Address:[address] [place] Pcp:MICHAEL YANEZ N.P. Subjective: * Chief Complaints: * 1 . Rectal bleeding. * Medical History: Objective: * Vitals: Assessment: * Assessment: 1. R ectal bleeding - K62.5 (Primary) Plan: * Treatment: * Procedure Codes: 4 5380 COLONOSCOPY AND BIOPSY * * The named appointment provid er may or may not be the originator of this progress note, and it is not deemed complete until electronically signed by the appointment provider. Sign off status: Pending * Provider: Remi Vila MD Date: 0 12/29/2023 Generated for Viviane negrete/Shakila/Jadenitting on: 0 05/25/2025 04:03 PM EDT
--- OUTSIDE RECORDS SUMMARY | 2025-01-03 05:20 | XMS_ITS ---
Author Organization [facility] Address 10 [facility] [address] [place] [address] Care Team Providers Care Furnace Roaster Name Role Phone MICHAEL YANEZ N.P. Primary Care Provider Fidencio Langley Jr [phone] REASON FOR VISIT dysphagia Encounters Encounter Location Date Provider Diagnosis [facility] [address] [place] [address] 01/03/2025 Fidencio Vila Jr Plan Of Treatment Next Appt Details Provider Name:Fidencio haider Jr, 07/18/2025 11:20:00 AM, [address] [place] [address], [address], [place], [address], Progress Notes * TIFFANIE TYLERADOB: 6 (60 yo F)Acc No.[id number]:01/03/2025 Progress Notes Patient: TAY CAPELLAN Provider: Remi Vila MD :1965 A ge:59 Y S ex:Female Date:01/03/2025 Address:[address] [place] Pcp:MICHAEL YANEZ N.P. Subjective: * Chief Complaints: [...] 01/03/2025 Generated for Viviane negrete/Shakila/Constantino on: 0 05/25/2025 04:02 PM EDT
--- NOTE | ~2025-05-25 | US_ITS ---
EXAMINATION: US TRIPLEX LOWER EXTREMITY, RIGHT CLINICAL INFORMATION: Right lower extremity edema. COMPARISON: None available. TECHNIQUE: Color-flow triplex imaging with spectral analysis and compression Doppler were performed on the right lower extremity. FINDINGS: Respiratory variation, normal compression and augmented flow are noted throughout the right lower extremity. The visualized common femoral vein, superficial femoral vein, profunda femoral vein, popliteal vein and midcalf peroneal and posterior tibial venous segments show no evidence of deep venous thrombosis. There is no Fox's cyst. US/US venous duplex LE RT IMPRESSION: No evidence of deep venous thrombosis involving the right lower extremity. Electronically signed by: Gallo Schuster MD 05/25/2025 04:42 PM EDT
--- NOTE | ~2025-05-25 | US_ITS ---
Examination:US Extremity Nonvas Comp Jt Rt HISTORY: right leg, s/p cat bite, r/o abscess TECHNIQUE: Grayscale and color Doppler imaging was performed in the right lower leg COMPARISON: None FINDINGS: No mass or loculated fluid collection is identified. In the region where the patient complains of a lump, there is a patent 2 mm parenchymal stain in the subcutaneous soft tissues. US/US Extremity Nonvas Comp JT RT IMPRESSION: No sign of an abscess on ultrasound. Electronically signed by: Kleber Garg MD 05/25/2025 05:09 PM EDT
--- OUTSIDE RECORDS SUMMARY | 2025-05-25 10:00 | XMS_ITS | Encounter Summary ---
Author Organization [facility] Address [address] [place] [address] 7t [place] [address] Care Team Providers Care Taker Down Name Role Phone Nupur Weir Primary Care Provider [phone] Abel Chavarria RN Unavailable [phone] Margareth Chavarria Unavailable Reason for Referral * Imaging (STAT) - Authorized Specialty Diagnoses / Procedures Referred By Aston marr Referred To Contact Radiology Diagnoses Subcutaneous mass Procedures US SOFT TISSUE Cecilia Johnson DO [address] [place] [address] Phone: tel: fax: [address] Phone: tel: fax: Referral ID Status Reason Start Date Expiration Date V isits Requested Visits Authorized [id number] Authorized 05/25/2025 05/25/2026 1 1 * Imaging (STAT) - Authorized Specialty Diagnoses / Procedures Referred By Contshikha marr Referred To Contact Cardiology Diagnoses Pain and swelling of right lower leg Procedures VASC US Lower Extremity Venous Duplex Right Cecilia Johnson DO [address] [place] [address] Phone: tel: fax: [address] Phone: tel: fax: Referral ID Status Reason Start Date Expiration Date Visits Requested Visits Authorized [id number] Authorized Perform Procedure 05/25/2025 05/25/2026 1 1 Reason for Visit * Reason Comments Animal Bite Foot Swelling Encounter Details Date Type Department Care Team (Late st Contact Info) Description 05/25/2025 10:00 AM EDT Office Visit [facility] [address] [place] [address] Cecilia Johnson DO [address] [place] [address] Pain and swelling of right lower leg (Primary Dx); Subcutaneous mass; Long-term current use of opiate analgesic; Back [...] Sign Reading Time Taken Comments Blood Pressure 114/82 05/25/2025 9:54 AM EDT Pulse 71 05/25/2025 9:54 AM EDT Temperature 36.7 C (98.1 F) 05/25/2025 9:54 AM EDT Respiratory Rate 18 05/25/2025 9:54 AM EDT Oxygen Saturation 99% 05/25/2025 9:54 AM EDT Inhaled Oxygen Concentration - - Weight 64 kg (141 lb 3.2 oz) 05/25/2025 9:54 AM EDT Height - - Body Mass Index 23.5 05/15/2025 8:57 AM EDT documented in this encounter Progress Notes * Cecilia Johnson, - 05/25/2025 10:00 AM EDT SUBJECTIVE Laura Graham is a 60 y.o. female who presents for Sick Visit. She presents to [place] today c/o cat bite. She was [place] [facility] [place] 9[place] c/o RLE pain and swelling S/P cat bite the previous day. On exam, she had three distinct puncture wounds in the distal calf with significant erythema. She was given adose of augmentin in ED and she was sent home with augmentin x 1 week. She had f/u with her PCP thefollowing day and Tdap was administered. She was advised low likelihood of rabies and to begin the course of augmentin that was rx'd. She was seen by her PCP several days later because she did not feel the wound was improving and was given three additional days of augmentin. She says that the redness is better but she still has a lot of swelling in her R leg. She says thatshe has pain from her knee down to her ankle which is worse at night. She says that she has been staying her room and bed for the last few weeks because of her pain. She also feels a mass under the area of the bite. She has not had any bleeding or discharge. She says that the bite gamino are dry. She has not had any fevers. She says she has not used any medications for sx relief. History provided by: Patient shift engineer used: Yes Leg Pain The incident occurred more than 1 week ago. The incident occurred at home. The pain is present in the right leg. The quality of the pain is described as burning. The pain is moderate. The pain has been Constant since onset. Pertinent negatives include no inability to bear weight, muscle weakness, numbness or tingling. She has tried nothing for the symptoms. Review of Systems Constitutional: Negative for activity change, appetite change, chills, fever and unexpected weight change. Respiratory: Negative for cough and shortness of breath. Cardiovascular: Negative for chest pain, palpitations and leg swelling. Gastrointestinal: Negative for abdominal pain, diarrhea, nausea and vomiting. Skin: Positive for wound. Neurological: Negative for tingling, weakness, numbness and headaches. Patient Active Problem List Diagnosis Allergic rhinitis Anemia Anxiety Asthma Atypical endometrial hyperplasia Lumbar spondylosis Chronic interstitial cystitis Depressive disorder Fracture of patella Gastroesophageal reflux disease Headache disorder History of total hysterectomy Hypertension Insomnia Irritable bowel syndrome Joint pain Migraine Obesity Pure hypercholesterolemia Recurrent syncope Stress incontinence, female Acute pyelonephritis Gastritis medicamentosa Paronychia of great toe, left Obstructive sleep apnea Dental calculus Missing teeth, acquired Dental caries Constipation Long-term current use of opiate analgesic Subacute pansinusitis Lower urinary tract symptoms (LUTS) Acute bursitis of left shoulder Moderate major depression (CMS/HCC) Allergies Allergen Reactions Ondansetron Promethazine Sumatriptan Other reaction(s): tablet only OBJECTIVE Visit Vitals BP 114/82 (BP Location: Left arm, Patient Position: Sitting, BP Cuff Size: Adult) Pulse 71 Temp 98.1 ??F (36.7 ??C) (Temporal) Resp 18 Wt 141 lb 3.2 oz (64 kg) SpO2 99% BMI 23.50 kg/m?? OB Status Postmenopausal Smoking Status Never BSA 1.71 m?? Physical Exam Constitutional: General: She is not in acute distress. Appearance: Normal appearance. Cardiovascular: Rate and Rhythm: Normal rate and regular rhythm. Heart sounds: Normal heart sounds. No murmur heard. Comments: R calf = 37cm L calf = 36 cm Pulmonary: Effort: Pulmonary effort is normal. Breath sounds: Normal breath sounds. No wheezing or rhonchi. Musculoskeletal: Right lower le+ Pitting Edema present. Left lower leg: No edema. Skin: Comments: ~ 2x3cm firm, tender mass under bite gamino; no discharge/bleeding, mild TTP, no overlyingerythema Neurological: General: No focal deficit present. Mental Status: She is alert and oriented to person, place, and time. Cranial Nerves: No cranial nerve deficit. Motor: No weakness. Gait: Gait normal. Psychiatric: Mood and Affect: Mood normal. Assessment/Plan Diagnoses and all orders for this visit: Pain and swelling of right lower leg Likely residual inflammation from recent infection -given persistent symptoms referred for LE doppler to r/o DVT -advised rtc or go to ED if increased pain, swelling, redness or SOB/CP Subcutaneous mass ? Abscess -referred for STAT US -advised rtc if worsening pain, fevers, or discharge, she agrees with plans --Follow-up with PCP as scheduled or sooner prn-- Current Outpatient Medications: acetaminophen (Tylenol 8 Hour) 650 MG ER tablet, Take 1 tablet (650 mg) by mouth every 8 (eight) hours if needed for mild pain. Do not crush, chew, or split., Disp: 40 tablet, Rfl: 1 albuterol (Ventolin HFA) 108 (90 Base) MCG/ACT inhaler, INHALE 2 PUFFS BY MOUTH EVERY 4 HOURS NEEDED, Disp: 18 g, Rfl: 1 Ascorbic Acid (vitamin C) 500 MG tablet, TAKE 1 TABLET BY MOUTH EVERY EVENING WITH IRON supplement,Disp: 90 tablet, Rfl: 0 atovaquone-proguanil (Malarone) 250-100 MG tablet, Begin 1 - 2 days before travel, take 1 tab dailyduring travel and for 7 days after leaving., Disp: 28 tablet, Rfl: 0 Cholecalciferol (Vitamin D3) 125 MCG (5000 UT) chewable tablet, Chew 1 tablet Once per day. otc, Disp: , Rfl: clotrimazole (Lotrimin) 1 % cream, Apply twice daily for 14-28d to navel area, Disp: 30 g, Rfl: 0 cyclobenzaprine (Flexeril) 10 MG tablet, Take 1 tablet (10 mg) by mouth at bedtime for 10 days., Disp: 10 tablet, Rfl: 0 dicyclomine (Bentyl) 10 MG capsule, Take 1 capsule by mouth. 2 to 4 times a day, Disp: , Rfl: dilTIAZem CD (Cardizem CD) 180 MG 24 hr capsule, Take 1 capsule by mouth Once per day., Disp: , Rfl: ferrous sulfate (Fe Tabs) 325 (65 Fe) MG EC tablet, Take 1 tab every other day with vitamin C or juice. Do not crush, chew, or split., Disp: 45 tablet, Rfl: 1 fluticasone (Flonase) 50 MCG/ACT nasal spray, Administer 2 sprays into each nostril Once per day., Disp: 16 g, Rfl: 1 gabapentin (Neurontin) 100 MG capsule, TAKE 1 CAPSULE BY MOUTH AT NOON, EVENING, AND BEDTIME, Disp:90 capsule, Rfl: 2 hydrocortisone (Anusol-HC) 2.5 % rectal cream, INSERT INTO THE RECTUM TWICE A DAY FOR 7 DAYS, Disp:28 g, Rfl: 1 levothyroxine (Synthroid, Levoxyl) 25 MCG tablet, TAKE 1 TABLET BY MOUTH EVERY MORNING BEFORE BREAKFAST, Disp: 90 tablet, Rfl: 1 lidocaine (Lidoderm) 5 % patch, APPLY 1 PATCH TOPICALLY TO THE SKIN DAILY. LEAVE ON MOST PAINFUL AREA FOR UP TO 12 HOURS, Disp: 30 patch, Rfl: 1 losartan (Cozaar) 50 MG tablet, TAKE 1 TABLET BY MOUTH EVERY MORNING, Disp: 90 tablet, Rfl: 0 magnesium oxide (Mag-Ox) 400 (240 Mg) MG tablet, Take 1 tablet by mouth Once per day., Disp: , Rfl: meloxicam (Mobic) 15 MG tablet, Take 1 tablet (15 mg) by mouth Once per day., Disp: 30 tablet, Rfl:0 Mometasone Furoate (Asmanex HFA) 100 MCG/ACT aerosol, INHALE 1 PUFF EVERY TWELVE HOURS, Disp: 13 g,Rfl: 1 naloxone (Narcan) 4 mg/0.1 mL nasal spray, Administer 1 spray (4 mg) into affected nostril(s) if needed for opioid reversal. May repeat every 2-3 minutes if needed, alternating nostrils, until medical assistance becomes available., Disp: 2 each, Rfl: 2 pantoprazole (ProtoNix) 40 MG EC tablet, Take 1 tablet by mouth Once per day., Disp: , Rfl: polycarbophil (FiberCon) 625 MG tablet, Take 1 tablet (625 mg) by mouth Once per day., Disp: 90 tablet, Rfl: 3 polyethylene glycol, PEG, 3350 (MiraLax) 17 GM/SCOOP powder, Take 17 g by mouth Once daily as needed (constipation)., Disp: 510 g, Rfl: 0 pyridoxine (Vitamin B-6) 100 MG tablet, Take 1 tablet by mouth Once per day., Disp: , Rfl: raloxifene (Evista) 60 MG tablet, Take 1 tablet by mouth Once per day., Disp: , Rfl: senna-docusate (Stimulant Laxative) 8.6-50 MG tablet, TAKE 2 TABLETS BY MOUTH DAILY NEEDED FOR CONSTIPATION, Disp: 180 tablet, Rfl: 1 solifenacin (VESIcare) 5 MG tablet, Take 1 tablet by mouth Once per day., Disp: , Rfl: Spacer/Aero-Holding Chambers (OptiChamber Sylvia-Lg Mask) device, Use for metered doses inhaler asdirected, Disp: 1 each, Rfl: 0 SUMAtriptan Succinate 4 MG/0.5ML solution auto-injector, ADMINISTER 0.5 ML UNDER THE SKIN ONCE NEEDED FOR MIGRAINE. CAN REPEAT ONCE IN 1 HOUR IF NOT EFFECTIVE., Disp: 1 mL, Rfl: 2 tiZANidine (Zanaflex) 2 MG tablet, Take 1 tablet (2 mg) by mouth every 8 (eight) hours if needed (pain) for up to 10 days., Disp: 30 tablet, Rfl: 0 topiramate (Topamax) 100 MG tablet, Take 1 tablet by mouth in the morning and 1 tablet in the evening., Disp: , Rfl: traMADol (Ultram) 50 MG tablet, Take 1 tablet (50 mg) by mouth every 8 (eight) hours if needed for severe pain for up to 7 days., Disp: 21 tablet, Rfl: 0 Scribe Attestation: Mike Carlisle, am serving as a scribe to document services personally performed by Cecilia Powell, based on the patient's response to questions by provider and provider's statements to me. 05/25/25 12:51 PM Physicians Attestation: Cecilia Carlisle DO, have reviewed the information by the scribe, Mike Palmer, for accuracy and agree with its content. documented in this encounter Plan of Treatment Upcoming Encounters Date Type Department Care Team (Late st Contact Info) Description 06/12/2025 9:45 AM EDT Office Visit [address] [address] 09/28/2025 9:30 AM EST Medication Management [address] [address] Fay Leigh, PharmD [address] [place] [address] Scheduled Orders Name Type Priority Associated Diagnoses Orde r Schedule US SOFT TISSUE Imaging STAT Subcutaneous mass Expected: 05/25/2025, Expires: 05/25/2026 documented as of this encounter Visit Diagnoses Diagnosis Pain and swelling of right lower leg- Primary Subcutaneous mass Long-term current use of opiate analgesic Encounter for long-term (current) use of other medications Back pain, unspecified back location, unspecified back pain laterality, unspecified chronicity documented in this encounter Additional Health Concerns Assessment Noted Time PHQ-9 Depression Total Score: 17 025 10:08 AM EDT documented as of this encounter Care Teams Taker Down Relationship Specialty Start Date End Date Nupur Weir ANP [address] [place] [address] PCP - General Family Medicine 01/16/20 Abel Chavarria RN [address] [place] [address] Registered Nurse Family Medicine 02/26/25 Margareth Chavarria 02/26/25 documented as of this encounter
--- OUTSIDE RECORDS SUMMARY | 2025-05-25 16:02 | XMS_ITS | Encounter Summary ---
Author Organization [employer] Address [address] [place] [address] Care Team Providers Care Microfilm Processor Name Role Phone Nupur Weir Primary Care Provider [phone] Abel Chavarria RN Unavailable [phone] Margareth Chavarria Unavailable Reason for Visit * Reason Comments Med Refill Encounter Details Date Type Department Care Team (Late st Contact Info) Description 11/07/2024 Refill [facility] [address] [place] [address] Nupur Weir ANP [address] [place] [address] Primary hypertension; Iron deficiency anemia, unspecified iron [...] Description 06/12/2025 9:45 AM EDT Office Visit [address] [address] 09/28/2025 9:30 AM EST Medication Management [facility] [address] [place] [address] Fay Leigh, PharmD [address] [place] [address] documented as of this encounter Visit Diagnoses Diagnosis Primary hypertension Unspecified essential hypertension Iron deficiency anemia, unspecified iron deficiency anemia type documented in this encounter Care Teams Microfilm Processor Relationship Specialty Start Date End Date Nupur Weir ANP [address] [place] [address] PCP - General Family Medicine 01/16/20 Abel Chavarria RN [address] [place] [address] Registered Nurse Family Medicine 02/26/25 Margareth Chavarria 02/26/25 documented as of this encounter
--- OUTSIDE RECORDS SUMMARY | 2025-05-25 16:03 | XMS_ITS | Encounter Summary ---
Author Organization [facility] Address [address] [place] [address] 7t [place] [address] Care Team Providers Care Powerhouse Electrician Apprentice Name Role Phone Nupur Weir Primary Care Provider [phone] Abel Chavarria RN Unavailable [phone] Margareth Chavarria Unavailable Reason for Visit * Reason Comments Med Refill Encounter Details Date Type Department Care Team (Late st Contact Info) Description 01/09/2023 Refill [facility] [address] [place] [address] Nupur Weir ANP [address] [place] [address] Arthralgia, unspecified joint; Other specified hypothyroidism Social [...] Description 06/12/2025 9:45 AM EDT Office Visit [address] [address] 09/28/2025 9:30 AM EST Medication Management [address] [address] Fay Leigh, MayoD [address] [place] [address] documented as of this encounter Visit Diagnoses Diagnosis Arthralgia, unspecified joint Other specified hypothyroidism documented in this encounter Care Teams Powerhouse Electrician Apprentice Relationship Specialty Start Date End Date Nupur Weir ANP [address] [place] [address] PCP - General Family Medicine 01/16/20 Abel Chavarria RN [address] [place] [address] Registered Nurse Family Medicine 02/26/25 Margareth Chavarria 02/26/25 documented as of this encounter
--- OUTSIDE RECORDS SUMMARY | 2025-05-25 16:03 | XMS_ITS | Encounter Summary ---
Author Organization [employer] [facility] Address [address] [facility] [address] [place] [address] Care Team Providers Care Outpatient Therapist Name Role Phone Nupur Weir Primary Care Provider [phone] Abel Chavarria RN Unavailable [phone] Maragreth Chavarria Unavailable Reason for Visit * Reason Comments Med Refill Encounter Details Date Type Department Care Team ([facility] st Contact Info) Description 11/11/2023 Refill [facility] [address] [place] [address] Nupur Weir ANP [address] [place] [address] Social History Tobacco Use Types Packs/Day Years [...] Description 06/12/2025 9:45 AM EDT Office Visit [address] [address] 09/28/2025 9:30 AM EST Medication Management [address] [address] Fay Leigh, PharmD [address] [place] [address] documented as of this encounter Visit Diagnoses Not on filedocumented in this encounter Care Teams Outpatient Therapist Relationship Specialty Start Date End Date Nupur Weir ANP [address] [place] [address] PCP - General Family Medicine 01/16/20 Abel Chavarria, RN [address] [place] [address] Registered Nurse Family Medicine 02/26/25 Margareth Chavarria 02/26/25 documented as of this encounter
--- OUTSIDE RECORDS SUMMARY | 2025-05-25 16:03 | XMS_ITS ---
Author Organization [employer] Address [address] [place] [address] 7t [place] [address] Care Team Providers Care Bunch Maker Name Role Phone Nupur Weir Primary Care Provider [phone] Abel Chavarria RN Unavailable [phone] Margareth Chavarria Unavailable CM Complex Status:Enrolled (Active) Start date:02/26/2025 Enrollment date:03/15/2025 Enrollment reason:ADT Feed Overview ED- Pt went [place] [facility] [place]. Case Team Name Relationship Phone Abel Chavarria RN(Responsible Staff) Registered Nurse [phone] Continued Care and Services Coordination
--- OUTSIDE RECORDS SUMMARY | 2025-05-25 16:03 | XMS_ITS | Encounter Summary ---
Author Organization [employer] Address [address] [place] [address] Care Team Providers Care Manager Strategy Name Role Phone Nupur Weir Primary Care Provider [phone] Abel Chavarria RN Unavailable [phone] Margareth Chavarria Unavailable Reason for Visit * Reason Comments Med Refill Encounter Details Date Type Department Care Team ([facility] st Contact Info) Description 02/11/2024 Refill [facility] MEDICINE [address] [place] [address] Nupur Weir ANP [address] [place] [address] Social History Tobacco Use Types Packs/Day Years [...] Description 06/12/2025 9:45 AM EDT Office Visit [address] [address] 09/28/2025 9:30 AM EST Medication Management [address] [address] Fay Leigh, PharmD [address] [place] [address] documented as of this encounter Visit Diagnoses Not on filedocumented in this encounter Care Teams Manager Strategy Relationship Specialty Start Date End Date Nupur Weir ANP [address] [place] [address] PCP - General Family Medicine 01/16/20 Abel Chavarria, RN [address] [place] [address] Registered Nurse Family Medicine 02/26/25 Margareth Chavarria 02/26/25 documented as of this encounter
--- OUTSIDE RECORDS SUMMARY | 2025-05-25 16:03 | XMS_ITS | Encounter Summary ---
Author Organization [employer] Address [address] [place] [address] Street 7t [place] [address] Care Team Providers Care Weaving Machine Operator Name Role Phone Nupur Weir Primary Care Provider [phone] Abel Chavarria RN Unavailable [phone] Margareth Chavarria Unavailable Reason for Visit * Reason Comments Care Coordination C3CM/KHUSHBU [place]ocho- follow up call Encounter Details Date Type Department Care Team (Latest Contact Info) Description 05/23/2025 Patient Outreach [facility] MED[facility]INE [address] [place] [address] Nupur Weir ANP [address] [place] [address] Care Coordination (NATHALY/KHUSHBU [place]- follow up call) Social History Tobacco Use Types Packs/Day Years [...] encounter Progress Notes * Margareth Chavarria - 05/23/2025 3:38 PM EDT CHW Margareth Chavarria, placed outbound call to patient introducing herself calling from [facility]. Patient's name, and address confirmed. CHW followed up on SDOH, and no SDOH needs at this time. No further questions or concerns. CHW educated parent of [facility] Located in [facility] with extended clinic hours Mondays through 8:00AM-8:00PM, Fridays 8:30AM-4:30PM, and Saturdays 9AM-1PM as well as patient provided with after-hours line for [facility], , which offer night time triage service and option to transfer to personal lines sales rep provider if needed. CHW reinforced direct contact information for any additional questions or concerns. Parent acknowledged understanding and agrees with plan and able to repeat back to newspaper writer. A follow up call will be placed within 10 days, patient agrees with plan. documented in this encounter Plan of Treatment Upcoming Encounters Date Type Department Care Team ([facility] st Contact Info) Description 06/12/2025 9:45 AM EDT Office Visit [address] [address] 09/28/2025 9:30 AM EST Medication Management [address] [address] Fay Leigh, PharmD [address] [place] [address] documented as of this encounter Visit Diagnoses Not on filedocumented in this encounter Additional Health Concerns Assessment Noted Time PHQ-9 Depression Total Score: 17 025 10:08 AM EDT documented as of this encounter Care Teams Weaving Machine Operator Relationship Specialty Start Date End Date Nupur Weir ANP [address] [place] [address] PCP - General Family Medicine 01/16/20 Abel Chavarria, ILENE [address] [place] [address] Registered Nurse Family Medicine 02/26/25 Margareth Chavarria 02/26/25 documented as of this encounter
--- OUTSIDE RECORDS SUMMARY | 2025-05-25 16:03 | XMS_ITS | Encounter Summary ---
Author Organization [employer] Address [address] 7[address] [place] [address] Care Team Providers Care Ore Trimmer Name Role Phone Nupur Weir Primary Care Provider [phone] Abel Chavarria RN Unavailable [phone] Margareth Chavarria Unavailable Encounter Details Date Type Department Care Team (Latest Contact Info) Description 05/25/2025 Travel Social History Tobacco Use Types Packs/Day [...] Description 06/12/2025 9:45 AM EDT Office Visit [facility] [address] [place] [address] 09/28/2025 9:30 AM EST Medication Management [facility] [address] [place] [address] Fay Leigh, PharmD [address] [place] [address] documented as of this encounter Visit Diagnoses Not on filedocumented in this encounter Additional Health Concerns Assessment Noted Time PHQ-9 Depression Total Score: 17 025 10:08 AM EDT documented as of this encounter Care Teams Ore Trimmer Relationship Specialty Start Date End Date Nupur Weir ANP [address] [place] [address] PCP - General Family Medicine 01/16/20 Abel Chavarria RN [address] [place] [address] Registered Nurse Family Medicine 02/26/25 Margareth Chavarria 02/26/25 documented as of this encounter
--- OUTSIDE RECORDS SUMMARY | 2025-05-25 16:03 | XMS_ITS | Encounter Summary ---
Author Organization [employer] Address [address] [facility] [address] 7t [place] [address] Care Team Providers Care Financial Secretary Name Role Phone Nupur Weir Primary Care Provider [phone] Abel Chavarria RN Unavailable [phone] Margareth Chavarria Unavailable Reason for Visit * Reason Comments Med Refill Encounter Details Date Type Department Care Team (Late st Contact Info) Description 05/25/2025 Refill [facility] 230 [place] [address] Jaleel Block MD 230 [place] [address] Social History Tobacco Use Types Packs/Day Years [...] 06/12/2025 9:45 AM EDT Office Visit [facility] [address] [place] [address] 09/28/2025 9:30 AM EST Medication Management [facility] 230 [place] [address] Fay Leigh, PharmD 230 [place] [address] documented as of this encounter Visit Diagnoses Not on filedocumented in this encounter Additional Health Concerns Assessment Noted Time PHQ-9 Depression Total Score: 17 025 10:08 AM EDT documented as of this encounter Care Teams Financial Secretary Relationship Specialty Start Date End Date Nupur Weir ANP [address] [place] [address] PCP - General Family Medicine 01/16/20 Abel Chavarria RN [address] [place] [address] Registered Nurse Family Medicine 02/26/25 Margareth Chavarria 02/26/25 documented as of this encounter
--- OUTSIDE RECORDS SUMMARY | 2025-05-25 16:03 | XMS_ITS | Encounter Summary ---
Author Organization [employer] Address [address] [facility] [address] 7t [place] [address] Care Team Providers Care Central Sterile Supply Technician Name Role Phone Nupur Weir Primary Care Provider [phone] Abel Chavarria RN Unavailable Margareth Chavarria Unavailable Encounter Details Date Type Department Care Team ([facility] st Contact Info) Description 07/05/2024 Telephone [facility] 230 [place] [address] Alonso-PradhanYarelis friedman, DDS 230 [place] [address] Social History Tobacco Use Types Packs/Day Years [...] Shameka Simons - 07/05/2024 10:56 AM EST [facility] doctor flip Patient called she went her pharmacy and her medication was not there. Can we send her prescriptions to her pharmacy thank you . documented in this encounter Plan of Treatment Upcoming Encounters Date Type Department Care Team (Late st Contact Info) Description 06/12/2025 9:45 AM EDT Office Visit [facility] [address] [place] [address] 09/28/2025 9:30 AM EST Medication Management [facility] [address] [place] [address] Fay Leigh, PharmD 230 [place] [address] documented as of this encounter Visit Diagnoses Not on filedocumented in this encounter Care Teams Central Sterile Supply Technician Relationship Specialty Start Date End Date Nupur Weir ANP [address] [place] [address] PCP - General Family Medicine 5/19/20 Abel Chavarria RN [address] [place] [address] Registered Nurse Family Medicine 02/26/25 Margareth Chavarria 02/26/25 documented as of this encounter
--- OUTSIDE RECORDS SUMMARY | 2025-05-25 16:03 | XMS_ITS | Encounter Summary ---
Author Organization [employer] Address [address] [place] [address] Street 7t [place] [address] Care Team Providers Care Basket Bottom Machine Operator Name Role Phone Nupur Weir Primary Care Provider [phone] Abel Chavarria RN Unavailable [phone] Margareth Chavarria Unavailable Reason for Visit * Reason Comments Med Refill Encounter Details Date Type Department Care Team (Late st Contact Info) Description 12/21/2024 Refill [facility] 230 [place] [address] Nupur Weir ANP 230 [place] [address] Arthralgia, unspecified joint Social History Tobacco Use [...] t he electric, gas, oil or water [employer] threatened to shut off services in your [...] Description 06/12/2025 9:45 AM EDT Office Visit [facility] [address] [place] [address] 09/28/2025 9:30 AM EST Medication Management [facility] [address] [place] [address] Fay Leigh, PharmD [address] [place] [address] documented as of this encounter Visit Diagnoses Diagnosis Arthralgia, unspecified joint documented in this encounter Care Teams Basket Bottom Machine Operator Relationship Specialty Start Date End Date Nupur Weir ANP [address] [place] [address] PCP - General Family Medicine 01/16/20 Abel Chavarria RN [address] [place] [address] Registered Nurse Family Medicine 02/26/25 Margareth Chavarria 02/26/25 documented as of this encounter
--- OUTSIDE RECORDS SUMMARY | 2025-05-25 16:03 | XMS_ITS | Encounter Summary ---
Author Organization [employer] Address [address] [place] [address] Street 7t [place] [address] Care Team Providers Care Simonizer Name Role Phone Nupur Weir Primary Care Provider [phone] Abel Chavarria RN Unavailable [phone] Margareth Chavarria Unavailable Reason for Visit * Reason Comments Med Refill Encounter Details Date Type Department Care Team (Late st Contact Info) Description 12/22/2024 Refill [facility] 230 [place] [address] Nupur Weir ANP 230 [place] [address] Arthralgia, unspecified joint Social History Tobacco Use [...] t he electric, gas, oil or water [employer] threatened to shut off services in your [...] Description 06/12/2025 9:45 AM EDT Office Visit [facility] [address] [place] [address] 09/28/2025 9:30 AM EST Medication Management [facility] [address] [place] [address] Fay Leigh, PharmD [address] [place] [address] documented as of this encounter Visit Diagnoses Diagnosis Arthralgia, unspecified joint documented in this encounter Care Teams Simonizer Relationship Specialty Start Date End Date Nupur Weir ANP [address] [place] [address] PCP - General Family Medicine 01/16/20 Abel Chavarria RN [address] [place] [address] Registered Nurse Family Medicine 02/26/25 Margareth Chavarria 02/26/25 documented as of this encounter
--- OUTSIDE RECORDS SUMMARY | 2025-05-25 16:03 | XMS_ITS ---
Author Organization [employer] Address [address] [place] [address] 7t [place] [address] Care Team Providers Care Field Horticultural Specialty Grower Name Role Phone Nupur Weir Primary Care Provider [phone] Abel Chavarria RN Unavailable [phone] Margareth Chavarria Unavailable [facility] Status:Enrolled (Active) Start date:02/26/2025 Enrollment date:03/15/2025 Enrollment reason:ADT Feed Overview ED- Pt went to [facility] ED on 02/24/25. Please outreach for enrollment. [place] Case Team Name Relationship Phone Margareth Chavarria(Responsible Staff) [phone] Continued Care and Services Coordination
--- OUTSIDE RECORDS SUMMARY | 2025-05-25 16:03 | XMS_ITS | Encounter Summary ---
Author Organization [employer] Address [address] [place] [address] Street 7t [place] [address] Care Team Providers Care University President Name Role Phone Nupur Weir Primary Care Provider [phone] Abel Chavarria RN Unavailable [phone] Margareth Chavarria Unavailable Reason for Visit * Reason Onset Date Comments rs no show appt 11/30/2024 Encounter Details Date Type Department Care Team (Late st Contact Info) Description 11/30/2024 Telephone [facility] 230 [place] [address] Taty, Laura 230 [place] [address] rs no show appt Social History Tobacco [...] the past 12 months, has t he [employer], gas, oil or water company threatened to [...] Description 06/12/2025 9:45 AM EDT Office Visit [address] [address] 09/28/2025 9:30 AM EST Medication Management [address] [address] Fay Leigh, PharmD 230 [place] [address] documented as of this encounter Visit Diagnoses Not on filedocumented in this encounter Care Teams University President Relationship Specialty Start Date End Date Nupur Weir ANP 230 [place] [address] PCP - General Family Medicine 01/16/20 Abel Chavarria, ILENE [address] [place] [address] Registered Nurse Family Medicine 02/26/25 Margareth Chavarria 02/26/25 documented as of this encounter
--- OUTSIDE RECORDS SUMMARY | 2025-05-25 16:03 | XMS_ITS | Encounter Summary ---
Author Organization [employer] Address [address] [place] [address] Street 7t [place] [address] Care Team Providers Care Sanitary Landfill Operator Name Role Phone Nupur Weir Primary Care Provider [phone] Abel Chavarria RN Unavailable [phone] Margareth Cahvarria Unavailable Reason for Visit * Reason Onset Date Comments Appointment Request 11/30/2024 Encounter Details Date Type Department Care Team ([facility] st Contact Info) Description 11/30/2024 Telephone [facility] 230 [place] [address] Nupur Weir ANP 230 [place] [address] Appointment Request Social History Tobacco Use Types [...] t he electric, gas, oil or water [employer] threatened to shut off services in your [...] EDT Tc from pt requesting to r/s ART DIRECTOR appt. States has another appt around the same time at sleep medicine and pt informs takes bus and believes will not be able to make it on time. Would like to r/s for Wednesday. documented in this encounter Plan of Treatment Upcoming Encounters Date Type Department Care Team (Late st Contact Info) Description 06/12/2025 9:45 AM EDT Office Visit [address] [address] 09/28/2025 9:30 AM EST Medication Management [address] [address] Fay Leigh, PharmD 230 [place] [address] documented as of this encounter Visit Diagnoses Not on filedocumented in this encounter Care Teams Sanitary Landfill Operator Relationship Specialty Start Date End Date Nupur Weir ANP 230 [place] [address] PCP - General Family Medicine 01/16/20 Abel Chavarria, RN [address] [place] [address] Registered Nurse Family Medicine 02/26/25 Margareth Chavarria 02/26/25 documented as of this encounter
--- OUTSIDE RECORDS SUMMARY | 2025-05-25 16:03 | XMS_ITS | Encounter Summary ---
Author Organization [employer] [facility] Address [address] [place] [address] 7t [place] [address] Care Team Providers Care Electrophysiologist Name Role Phone Nupur Weir Primary Care Provider [phone] Abel Chavarria RN Unavailable [phone] Margareth Chavarria Unavailable Encounter Details Date Type Department Care Team (Late st Contact Info) Description 07/30/2022 Abstract [facility] 230 [place] [address] Dental, Provider, DDS Social History Tobacco Use [...] Description 06/12/2025 9:45 AM EDT Office Visit [facility] [address] [place] [address] [phone] 09/28/2025 9:30 AM EST Medication Management [facility] [address] [place] [address] [phone] Fay Leigh, PharmD 230 [place] [address] documented as of this encounter Procedures Procedure [...] on filedocumented in this encounter Care Teams Electrophysiologist Relationship Specialty Start Date End Date Nupur Weir ANP [address] [place] [address] PCP - General Family Medicine 01/16/20 Abel Chavarria, ILENE [address] [place] [address] Registered Nurse Family Medicine 02/26/25 Margareth Chavarria 02/26/25 documented as of this encounter
--- OUTSIDE RECORDS SUMMARY | 2025-05-25 16:03 | XMS_ITS | Encounter Summary ---
Author Organization [employer] Address [address] [place] [address] Street 7t [place] [address] Care Team Providers Care B And B Gang Worker Name Role Phone Nupur Weir Primary Care Provider [phone] Abel Chavarria RN Unavailable [phone] Margareth Chavarria Unavailable Reason for Visit * Reason Comments Med Refill Encounter Details Date Type Department Care Team (Late st Contact Info) Description 09/19/2023 Refill [facility] 230 [place] [address] Nupur Weir ANP 230 [place] [address] Constipation, unspecified constipation type Social History Tobacco [...] Description 06/12/2025 9:45 AM EDT Office Visit [address] [address] 09/28/2025 9:30 AM EST Medication Management [address] [address] Fay Leigh, PharmD [address] [place] [address] documented as of this encounter Visit Diagnoses Diagnosis Constipation, unspecified constipation type documented in this encounter Care Teams B And B Gang Worker Relationship Specialty Start Date End Date Nupur Weir ANP 230 [place] [address] PCP - General Family Medicine 01/16/20 Abel Chavarria, ILENE [address] [place] [address] Registered Nurse Family Medicine 02/26/25 Margareth Chavarria 02/26/25 documented as of this encounter
--- OUTSIDE RECORDS SUMMARY | 2025-05-25 16:03 | XMS_ITS | Encounter Summary ---
Author Organization [employer] Address [address] [place] [address] Street 7t [place] [address] Care Team Providers Care Autocad Technician Name Role Phone Nupur Weir Primary Care Provider [phone] Abel Chavarria RN Unavailable [phone] Margareth Chavarria Unavailable Reason for Visit * Reason Onset Date Comments Med Refill 05/23/2025 Encounter Details Date Type Department Care Team (Late st Contact Info) Description 05/23/[address] [facility] 230 [place] [address] Nupur Weir ANP 230 [place] [address] Migraine with aura and without status migrainosus, not intractable Social History Tobacco Use Types Packs/Day Years [...] Description 06/12/2025 9:45 AM EDT Office Visit [facility] [address] [place] [address] 09/28/2025 9:30 AM EST Medication Management [facility] [address] [place] [address] Fay Leigh, PharmD [address] [place] [address] documented as of this encounter Visit Diagnoses Diagnosis Migraine with aura and without status migrainosus, not intractable documented in this encounter Additional Health Concerns Assessment Noted Time PHQ-9 Depression Total Score: 17 025 10:08 AM EDT documented as of this encounter Care Teams Autocad Technician Relationship Specialty Start Date End Date Nupur Weir ANP 230 [place] [address] PCP - General Family Medicine 01/16/20 Abel Chavarria RN [address] [place] [address] Registered Nurse Family Medicine 02/26/25 Margareth Chavarria 02/26/25 documented as of this encounter
--- OUTSIDE RECORDS SUMMARY | 2025-05-25 16:03 | XMS_ITS | Encounter Summary ---
Author Organization [employer] Address [address] [facility] [address] 7t [place] [address] Care Team Providers Care Fire Hydrant Mechanic Name Role Phone Nupur Weir Primary Care Provider [phone] Abel Chavarria RN Unavailable [phone] Margareth Chavarria Unavailable Reason for Visit * Reason Comments Med Refill Encounter Details Date Type Department Care Team (Late st Contact Info) Description 02/11/2024 Refill [facility] 230 [place] [address] Marcella Colindres MD 230 [place] [address] Gastritis medicamentosa Social History Tobacco Use Types [...] Description 06/12/2025 9:45 AM EDT Office Visit [address] [address] 09/28/2025 9:30 AM EST Medication Management [address] [address] Fay Leigh, PharmD [address] [place] [address] documented as of this encounter Visit Diagnoses Diagnosis Gastritis medicamentosa Other specified gastritis without mention of hemorrhage documented in this encounter Care Teams Fire Hydrant Mechanic Relationship Specialty Start Date End Date Nupur Weir ANP 230 [place] [address] PCP - General Family Medicine 01/16/20 Abel Chavarria, ILENE [address] [place] [address] Registered Nurse Family Medicine 02/26/25 Margareth Chavarria 02/26/25 documented as of this encounter
--- OUTSIDE RECORDS SUMMARY | 2025-05-25 16:03 | XMS_ITS | Encounter Summary ---
Author Organization [employer] [facility] Address [address] [place] [address] 7t [place] [address] Care Team Providers Care Director Design Name Role Phone Nupur Weir Primary Care Provider [phone] Abel Chavarria RN Unavailable [phone] Margareth Chavarria Unavailable Encounter Details Date Type Department Care Team (Latest Contact Info) Description 03/26/2022 Abstract [facility] Dental, Provider, DDS Social History [...] Description 06/12/2025 9:45 AM EDT Office Visit [facility] [address] [place] [address] 09/28/2025 9:30 AM EST Medication Management [facility] 230 [place], [place] [phone] Fay Leigh, PharmD 230 [place] [address] documented as of this encounter Visit Diagnoses Not on filedocumented in this encounter Care Teams Director Design Relationship Specialty Start Date End Date Nupur Weir ANP [address] [place] [address] PCP - General Family Medicine 01/16/20 Abel Chavarria RN [address] [place] [address] Registered Nurse Family Medicine 02/26/25 Margareth Chavarria 02/26/25 documented as of this encounter
--- OUTSIDE RECORDS SUMMARY | 2025-05-25 16:03 | XMS_ITS | Encounter Summary ---
Author Organization [employer] Address [address] [facility] [address] 7t [place] [address] Care Team Providers Care Facility Administrator Name Role Phone Nupur Weir Primary Care Provider [phone] Abel Chavarria RN Unavailable [phone] Margareth Chavarria Unavailable Encounter Details Date Type Department Care Team (Late st Contact Info) Description 04/11/2024 Orders Only [facility] 230 [place] [address] Nupur Weir ANP 230 [place] [address] Social History Tobacco Use Types Packs/Day Years [...] Description 06/12/2025 9:45 AM EDT Office Visit [address] [address] 09/28/2025 9:30 AM EST Medication Management [address] [address] Fay Leigh, PharmD [address] [place] [address] documented as of this encounter Visit Diagnoses Not on filedocumented in this encounter Care Teams Facility Administrator Relationship Specialty Start Date End Date Nupur Weir ANP [address] [place] [address] PCP - General Family Medicine 01/16/20 Abel Chavarria, ILENE [address] [place] [address] Registered Nurse Family Medicine 02/26/25 Margareth Chavarria 02/26/25 documented as of this encounter
--- OUTSIDE RECORDS SUMMARY | 2025-05-25 16:03 | XMS_ITS | Encounter Summary ---
Author Organization [employer] Address [address] [facility] [address] 7t [place] [address] Care Team Providers Care Arson And Bomb Investigator Name Role Phone Nupur Weir Primary Care Provider [phone] Abel Chavarria RN Unavailable [phone] Margareth Chavarria Unavailable Reason for Visit * Reason Comments Med Refill Encounter Details Date Type Department Care Team (Late st Contact Info) Description 03/22/2024 Refill [facility] 230 [place] [address] Marcella Colindres MD 230 [place] [address] Acute pyelonephritis Social History Tobacco Use Types [...] Description 06/12/2025 9:45 AM EDT Office Visit [address] [address] 09/28/2025 9:30 AM EST Medication Management [address] [address] Fay Leigh, PharmD [address] [place] [address] documented as of this encounter Visit Diagnoses Diagnosis Acute pyelonephritis 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
--- OUTSIDE RECORDS SUMMARY | 2025-05-25 16:03 | XMS_ITS | Encounter Summary ---
Author Organization [employer] Address [address] [facility] [address] 7t [place] [address] Care Team Providers Care Configuration Management Analyst Name Role Phone Nupur Weir Primary Care Provider [phone] Abel Chavarria RN Unavailable [phone] Margareth Chavarria Unavailable Reason for Visit * Reason Comments Med Refill Encounter Details Date Type Department Care Team (Late st Contact Info) Description 05/25/2025 Refill [facility] 230 [place] [address] Marcella Colindres MD 230 [place] [address] Social History Tobacco Use Types Packs/Day Years [...] Description 06/12/2025 9:45 AM EDT Office Visit [facility] [address] [place] [address] 09/28/2025 9:30 AM EST Medication Management [facility] 230 [place] [address] Fay Leigh, PharmD 230 [place] [address] documented as of this encounter Visit Diagnoses Not on filedocumented in this encounter Additional Health Concerns Assessment Noted Time PHQ-9 Depression Total Score: 17 025 10:08 AM EDT documented as of this encounter Care Teams Configuration Management Analyst Relationship Specialty Start Date End Date Nupur Weir ANP [address] [place] [address] PCP - General Family Medicine 01/16/20 Abel Chavarria RN [address] [place] [address] Registered Nurse Family Medicine 02/26/25 Margareth Chavarria 02/26/25 documented as of this encounter
--- OUTSIDE RECORDS SUMMARY | 2025-05-25 16:03 | XMS_ITS | Encounter Summary ---
Author Organization [employer] Address [address] [place] [address] 7t [place] [address] Care Team Providers Care Truck Dispatcher Name Role Phone Nupur Weir Primary Care Provider [phone] Abel Chavarria RN Unavailable [phone] Margareth Chavarria Unavailable Reason for Visit * Reason Onset Date Comments Med Refill 10/01/2023 Encounter Details Date Type Department Care Team ([facility] st Contact Info) Description 10/01/2023 Telephone [facility] MEDICINE 230 [place] [address] Nupur Weir ANP 230 [place] [address] Med Refill Social History Tobacco Use Types [...] Base) MCG/ACT inhaler To be sent to: [id number] [place], [place] - [address] [facility] documented in this encounter Plan of Treatment Upcoming Encounters Date Type Department Care Team (Late st Contact Info) Description 06/12/2025 9:45 AM EDT Office Visit [facility] MEDICINE [address] [place] [address] 09/28/2025 9:30 AM EST Medication Management [facility] MED[facility]INE [address] [place] [address] Fay Leigh, PharmD 230 [place] [address] documented as of this encounter Visit Diagnoses Not on filedocumented in this encounter Care Teams Truck Dispatcher Relationship Specialty Start Date End Date Nupur Weir ANP [address] [place] [address] PCP - General Family Medicine 01/16/20 Abel Chavarria, ILENE [address] [place] [address] Registered Nurse Family Medicine 02/26/25 Margareth Chavarria 02/26/25 documented as of this encounter"
--- OUTSIDE RECORDS SUMMARY | 2025-05-25 16:03 | XMS_ITS | Encounter Summary ---
Author Organization [facility] Address [address] [place] [address] 7t [place] [address] Care Team Providers Care Flat Optical Element Maker Name Role Phone Nupur Weir Primary Care Provider Abel Chavarria RN Unavailable [phone] Margareth Chavarria Unavailable Encounter Details Date Type Department Care Team (Late st Contact Info) Description 08/14/2022 Abstract [facility] [address] [place] [address] Angel Lagos, CAPRI [address] [place] [address] Social History Tobacco Use Types Packs/Day Years [...] Description 06/12/2025 9:45 AM EDT Office Visit [facility] [address] [place] [address] 09/28/2025 9:30 AM EST Medication Management [facility] [address] [place] [address] Fay Leigh, MayoD [address] [place] [address] documented as of this encounter Visit Diagnoses Not on filedocumented in this encounter Care Teams Flat Optical Element Maker Relationship Specialty Start Date End Date Nupur Weir ANP [address] [place] [address] PCP - General Family Medicine 01/16/20 Abel Chavarria RN [address] [place] [address] Registered Nurse Family Medicine 02/26/25 Margareth Chavarria 02/26/25 documented as of this encounter
--- OUTSIDE RECORDS SUMMARY | 2025-05-25 16:03 | XMS_ITS | Encounter Summary ---
Author Organization [employer] Address [address] [place] [address] Street 7t [place] [address] Care Team Providers Care Arts And Crafts Instructor Name Role Phone Nupur Weir Primary Care Provider [phone] Abel Chavarria RN Unavailable [phone] Margareth Chavarria Unavailable Reason for Visit * Reason Comments Med Refill Encounter Details Date Type Department Care Team (Late st Contact Info) Description 07/22/2024 Refill [facility] [address] [place] [address] Nupur Weir ANP [address] [place] [address] Social History Tobacco Use Types Packs/Day Years [...] the past 12 months, has t he [email or web address], gas, oil or water [employer] threatened to shut off services in your [...] EDT Office Visit [facility] [address] [place] [address] 09/28/2025 9:30 AM EST Medication Management [facility] [address] [place] [address] Fay Leigh, PharmD [address] [place] [address] documented as of this encounter Visit Diagnoses Not on filedocumented in this encounter Care Teams Arts And Crafts Instructor Relationship Specialty Start Date End Date Nupur Weir ANP [address] [place] [address] PCP - General Family Medicine 01/16/20 Abel Chavarria RN [address] [place] [address] [place] [address] Registered Nurse Family Medicine 02/26/25 Margareth Chavarria 02/26/25 documented as of this encounter
--- OUTSIDE RECORDS SUMMARY | 2025-05-25 16:03 | XMS_ITS | Encounter Summary ---
Author Organization [employer] Address [address] 7t [place] [address] Care Team Providers Care Boot Liner Maker Name Role Phone Nupur Weir Primary Care Provider [phone] Abel Chavarria RN Unavailable [phone] Margareth Chavarria Unavailable Reason for Visit * Reason Comments Med Refill Encounter Details Date Type Department Care Team ([facility] st Contact Info) Description 06/19/2024 Refill [facility] 230 [place] [address] Nupur Weir ANP 230 [place] [address] Other specified hypothyroidism Social History Tobacco Use [...] Description 06/12/2025 9:45 AM EDT Office Visit [address] [address] 09/28/2025 9:30 AM EST Medication Management [address] [address] Fay Leigh, PharmD [address] [place] [address] documented as of this encounter Visit Diagnoses Diagnosis Other specified hypothyroidism documented in this encounter Care Teams Boot Liner Maker Relationship Specialty Start Date End Date Nupur Weir ANP 230 [place] [address] PCP - General Family Medicine 01/16/20 Abel Chavarria, ILENE [address] [place] [address] Registered Nurse Family Medicine 02/26/25 Margareth Chavarria 02/26/25 documented as of this encounter
--- OUTSIDE RECORDS SUMMARY | 2025-05-25 16:04 | XMS_ITS | Encounter Summary ---
Author Organization [employer] Address [address] [place] [address] Street 7t [place] [address] Care Team Providers Care Net Developer Software Engineer C Name Role Phone Nupur Weir Primary Care Provider [phone] Abel Chavarria RN Unavailable [phone] Margareth Chavarria Unavailable Reason for Visit * Reason Onset Date Comments Med Refill 01/19/2025 Encounter Details Date Type Department Care Team ([facility] st Contact Info) Description 01/19/2025 Telephone [facility] [address] [place] [address] Nupur Weir ANP [address] [place] [address] Med Refill Social History Tobacco Use Types [...] the past 12 months, has t he [employer], gas, oil or water [employer] threatened to shut off services in your [...] 50 MG tablet To be sent to: [facility] pharmacy documented in this encounter Plan of Treatment Upcoming Encounters Date Type Department Care Team (Late st Contact Info) Description 06/12/2025 9:45 AM EDT Office Visit [facility] [address] [place] [phone] 09/28/2025 9:30 AM EST Medication Management [facility] [address] [place] [address] Fay Leigh, PharmD [address] [place] [address] documented as of this encounter Visit Diagnoses Not on filedocumented in this encounter Care Teams Net Developer Software Engineer C Relationship Specialty Start Date End Date Nupur Weir ANP [address] [place] [address] PCP - General Family Medicine 01/16/20 Aebl Chavarria RN [address] [place] [address] Registered Nurse Family Medicine 02/26/25 Margareth Chavarria 02/26/25 documented as of this encounter
--- OUTSIDE RECORDS SUMMARY | 2025-05-25 16:04 | XMS_ITS | Encounter Summary ---
Author Organization [employer] Address [address] [place] [address] Street 7t [place] [address] Care Team Providers Care Epic Application Coordinator Name Role Phone Nupur Weir Primary Care Provider [phone] Abel Chavarria RN Unavailable [phone] Margareth Chavarria Unavailable Reason for Visit * Reason Onset Date Comments Med Refill 07/26/2024 Encounter Details Date Type Department Care Team ([facility] st Contact Info) Description 07/26/2024 Telephone [facility] [address] [place] [address] Nupur Weir ANP 230 [place] [address] Med Refill Social History Tobacco Use Types [...] the past 12 months, has t he [email or web address], gas, oil or water [employer] threatened to shut off services in your [...] 50 MG tablet To be sent to: [id number] [place], [place] [address] [facility] documented in this encounter Plan of Treatment Upcoming Encounters Date Type Department Care Team ([facility] st Contact Info) Description 06/12/2025 9:45 AM EDT Office Visit [facility] [address] [place] [address] 09/28/2025 9:30 AM EST Medication Management [facility] [address] [place] [address] Fay Leigh, PharmD 230 [place] [address] documented as of this encounter Visit Diagnoses Not on filedocumented in this encounter Care Teams Epic Application Coordinator Relationship Specialty Start Date End Date Nupur Weir ANP 230 [place] [address] PCP - General Family Medicine 01/16/20 Abel Chavarria, ILENE [address] [place] [address] Registered Nurse Family Medicine 02/26/25 Margareth Chavarria 02/26/25 documented as of this encounter
--- OUTSIDE RECORDS SUMMARY | 2025-05-25 16:04 | XMS_ITS | Encounter Summary ---
Author Organization [employer] Address [address] [place] [address] 7t [place] [address] Care Team Providers Care Manager Product Design Name Role Phone Nupur Weir Primary Care Provider [phone] Abel Chavarria RN Unavailable [phone] Margareth Chavarria Unavailable Reason for Visit * Reason Onset Date Comments Med Refill 05/14/2023 Encounter Details Date Type Department Care Team (Late st Contact Info) Description 05/14/2023 Telephone [facility] 230 [place] [address] Nupur Weir ANP 230 [place], [place] [phone] Med Refill Social History Tobacco Use Types [...] Upcoming Encounters Date Type Department Care Team ([facility] st Contact Info) Description 06/12/2025 9:45 AM EDT Office Visit [address] [address] 09/28/2025 9:30 AM EST Medication Management [address] [address] Fay Leigh, MayoD [address] [place] [address] documented as of this encounter Visit Diagnoses Not on filedocumented in this encounter Care Teams Manager Product Design Relationship Specialty Start Date End Date Nupur Weir ANP [address] [place] [address] PCP - General Family Medicine 01/16/20 Abel Chavarria, ILENE [address] [place] [address] Registered Nurse Family Medicine 02/26/25 Margareth Chavarria 02/26/25 documented as of this encounter
--- OUTSIDE RECORDS SUMMARY | 2025-05-25 16:04 | XMS_ITS | Patient Health Record ---
Author Organization [facility] Address [address] [place] [address] Care Team Providers Care Infant Teacher Name Role Phone MICHAEL YANEZ N.P. Primary Care Provider Fidencio Langley Jr Unavailable [phone] Allergies Allergen (clinical drug ingredient) Drug/Non Drug Allergy documented on EMR Reaction Allergy Type Onset Date Status fentanyl fentaNYL Unknown Drug Allergy Active Results Component Value Reference Range Notes Complete Blood Count Auto Di ff Reviewed date:07/17/2024 08:00:34 AM Interpretation: Performing Lab:[facility], [address] [place] [phone] Notes/Report: White Blood Count 5.3 4.8-10.8 X10*3/uL [...] Panel Reviewed date:07/17/2024 08:00:27 AM Interpretation: Performing Lab:[facility], [address] [place] [phone] Notes/Report: Bilirubin Total 0.7 0.0-1.0 mg/dL Bilirubin Direct 0.3 0.0-0.5 mg/dL Aspartate Amino Transferase 21 5-31 U/L Alanine Aminotransferase 17 0-31 U/L Total Protein 6.4 6.5-8.0 g/dL Albumin Level 3.7 3.5-5.0 g/dL Alkaline Phosphatase 104 39-117 U/L Lipase Reviewed date:07/17/2024 08:00:21 AM Interpretation: Performing Lab:[facility], [address] [place] [phone] Notes/Report: Lipase 14 8-78 U/L Thyroid Stimulating Hormone Reviewed date:07/17/2024 08:00:15 AM Interpretation: Performing Lab:[facility], [address] [place] [phone] Notes/Report: Thyroid Stimulating Hormone 0.97 0.32-4.0 uIU/ [...] Problem Status W/U Status Risk Notes Problem 886611229 Colon cancer screening (Z12.11) Active confirmed Problem 12083407 Rectal bleeding (K62.5) Active confirmed Problem 04225451 Epigastric pain (R10.13) Active confirmed Problem Dysphagia (49116406) Dysphagia (R13.10) Active confirmed Problem 110043897 Elevated LFTs (R79.89) Active confirmed Problem 269941477 Gastroesophageal reflux disease without esophagitis (K21.9) Active confirmed Problem 22584633 Dysphagia, unspecified type (R13.10) Active confirmed Vital Signs Blood pressure diastolic 00 mm Hg 07/14/2024 Height 64.5 in 07/14/2024 Blood pressure systolic 00 mm Hg 07/14/2024 Weight 153 lbs 07/14/2024 BMI 25.85 kg/m2 07/14/2024 Encounters Encounter Location Date Provider Diagnosis [facility] [address] [place] [phone] 07/14/2024 Fidencio Vila Jr Abdominal cramping R10.9 [facility] [address] [place] [phone] 07/17/2024 Fidencio Vila Jr Assessments Encounter Date [...] Name:Fidencio Lori haider , 07/18/2025 11:20:00 AM, [address] [place] [address], [address], [place], [address], Insurance Providers Payer Name Payer Address Payer Phone Subscriber Number Group Number Insured Name Patient Relationship to Insured Coverage Start Date Coverage End Date [facility]ICA[facility] [address] [place] [address] [id number] TAY TYLER Self - patient is the [...] partial hysterectomy tonsillectomy cancer in uterus [phone] Laparoscopic bypass surgery 11/14 removed two cyst removed fro m right shouder and outer colon =dr. jones
--- OUTSIDE RECORDS SUMMARY | 2025-05-25 16:04 | XMS_ITS | Encounter Summary ---
Author Organization [employer] Address [address] 7t [place] [address] Care Team Providers Care Flooring Professional Name Role Phone Nupur Weir Primary Care Provider [phone] Abel Chavarria RN Unavailable [phone] Margareth Chavarria Unavailable Encounter Details Date Type Department Care Team (Late st Contact Info) Description 04/05/2025 Orders Only [facility] [address] [place] [address] Jaleel Block MD [address] [place] [address] Right-sided chest pain (Primary Dx); Hemoptysis Social [...] Description 06/12/2025 9:45 AM EDT Office Visit [facility] [address] [place] [address] 09/28/2025 9:30 AM EST Medication Management [facility] [address] [place] [address] Fay Leigh, PharmD [address] [place] [address] documented as of this encounter Procedures Procedure Name Priority Date/Time Associated Diagnosis Comments CULTURE, URINE, ROUTINE Routine 04/05/2025 12:00 AM EDT Right-sided chest pain documented in this encounter Results * Culture, Urine, Routine (04/05/2025 12:00 AM EDT) Urine Urine specimen obtained by clean catch procedure / Unknown 04/05/2025 04/05/2025 Comment:[facility] - 04/06/2025 10:53 AM EDT Urine Culture No growth. Specimen Source: Urine clean catch us Generic External Data Provider LAB MICROBIOLOGY - GENERAL ORDERABLES Final Result [facility] [address] [place] [address] [phone] documented in this encounter Visit Diagnoses Diagnosis Right-sided chest pain- Primary Hemoptysis documented in this encounter Additional Health Concerns Assessment Noted Time PHQ-9 Depression Total Score: 7 03/15/20 25 3:29 PM EDT documented as of this encounter Care Teams Flooring Professional Relationship Specialty Start Date End Date Nupur Weir ANP [address] [place] [address] PCP - General Family Medicine 01/16/20 Abel Chavarria, ILENE [address] [place] [address] Registered Nurse Family Medicine 02/26/25 Margareth Chavarria 02/26/25 documented as of this encounter
--- OUTSIDE RECORDS SUMMARY | 2025-05-25 16:04 | XMS_ITS | Clinical Summary ---
Author Organization [employer] Address [address] [place] [address] [address] [place] [address] Care Team Providers Care Merry Go Round Attendant Name Role Phone Michael Yanez Primary Care Provider [phone] Abel Chavarria RN Unavailable [phone] Margareth Chavarria Unavailable Allergies Active Allergy Reactions Criticality Noted Date Comments Ondansetron 09/01/2022 Promethazine 04/29/2014 Sumatriptan 10/19/2011 Other reaction(s): tablet only Medications * This document contains information received from the source organization and may not represent a complete record from that organization. dicyclomine (Bentyl) 10 MG capsule Take 1 [...] Intertrigo Apply twice daily for 14-28d to [facility] area 30 g 025 Active Cholecalciferol (Vitamin [...] for 7 days after leaving. 28 tablet 025 Active naloxone (Narcan) 4 mg/0.1 mL nasal sprayIndications: Long-term current use of opiate analgesic Administer 1 spray (4 mg) into affected nostril(s) if needed for opioid reversal. May repeat every 2-3 minutes if needed, alternating nostrils, until medical assistance becomes available. 2 each 025 2025 Active levothyroxine (Synthroid, Levoxyl) 25 [...] EVERY EVENING WITH IRON supplement 90 tablet 025 Active losartan (Cozaar) 50 MG tabletIndications :Primary hypertension TAKE 1 TABLET BY MOUTH EVERY MORNING 90 tablet Active gabapentin (Neurontin) 100 MG capsuleIndication s:Arthralgia, unspecified joint TAKE 1 CAPSULE BY MOUTH AT NOON, EVENING, AND BEDTIME 90 capsule 2 025 Active tiZANidine (Zanaflex) 2 MG tablet Take 1 tablet (2 mg) by mouth every 8 (eight) hours if needed (pain) for up to 10 days. 30 tablet 025 Active lidocaine (Lidoderm) 5 % patch APPLY 1 PATCH TOPICALLY TO THE SKIN DAILY. LEAVE ON MOST PAINFUL AREA FOR UP TO 12 HOURS 30 patch 025 Active ferrous sulfate (Fe Tabs) 325 (65 Fe) MG EC tabletIndications :Iron deficiency anemia, unspecified iron deficiency anemia type Take 1 tab every other day with vitamin C or juice. Do not crush, chew, or split. 45 tablet 1 025 Active SUMAtriptan Succinate 4 MG/0.5ML solution auto-injectorIndi cations:Migraine with aura and without status migrainosus, not intractable ADMINISTER 0.5 ML UNDER THE SKIN ONCE NEEDED FOR MIGRAINE. CAN REPEAT ONCE IN 1 HOUR IF NOT EFFECTIVE. 1 mL 2 Active traMADol (Ultram) 50 MG tabletIndications :Long-term current use of opiate analgesic,Back pain, unspecified back location, unspecified back pain laterality, unspecified chronicity Take 1 tablet (50 mg) by mouth every 8 (eight) hours if needed for severe pain for up to 7 days. 21 tablet 025 2024 Active acetaminophen (Tylenol 8 Hour) 650 MG ER tablet Take 1 tablet (650 mg) by mouth every 8 (eight) hours if needed for mild pain. Do not crush, chew, or split. 40 tablet 1 025 2024 Active SUMAtriptan Succinate 4 MG/0.5ML solution auto-injectorIndi cations:Migraine with aura and without status migrainosus, not intractable Admin 0.5mL under the skin once as needed for migraine, can repeat once in 1 hour if not effective 1 mL 2 023 2024 Discontinued(R eorder (will not trigger notification to Pharmacy)) acetaminophen (Tylenol Extra Strength) 500 MG tablet Take 1 tablet (500 mg) by mouth every 6 (six) hours if needed for mild pain. 60 tablet 025 2024 Discontinued traMADol (Ultram) 50 MG tabletIndications :Long-term current [...] to 14 days. 42 tablet 025 2024 Discontinued(R eorder (will not trigger notification to Pharmacy)) amoxicillin-clavu lanate (Augmentin) 875-125 MG tabletIndications :Cat bite, subsequent encounter Take 1 tablet by mouth 2 times daily for 3 days. 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 UTOX unexpected. See clinical documentation spec. Send out MTD and BZO confirmatory. Possible [...] organization. Date Type Department Care Team Description 05/25/2025 10:00 AM EDT Office Visit [facility] [address] [place] [phone] Cecilia Johnson DO Pain and swelling of right lower leg (Primary Dx); Subcutaneous mass; Long-term current use of opiate analgesic; Back pain, unspecified back location, unspecified back pain laterality, unspecified chronicity 05/25/2025 Travel 05/25/2025 Refill [facility] [address] [place] [address] Marcella Colindres MD 05/25/2025 Refill [facility] [address] [place] [address] Jaleel Block MD 05/23/2025 Patient Outreach [facility] [address] [place] [address] Michael Yanez ANP Care Coordination (C3CM/CHW KHUSHBU Edwards- follow up call) 05/23/2025 Refill [facility] [address] [place] [address] Michael Yanez ANP Migraine with aura and without status migrainosus, not intractable 05/15/2025 9:15 AM EDT Office Visit [facility] [address] [place] [address] Michael Yanez ANP Cat bite, subsequent encounter (Primary Dx); Pure hypercholesterolemi a; Primary hypertension; Hypothyroidism, unspecified type 05/15/2025 Patient Outreach [address] [address] Michael Yanez ANP Care Management (C3CM- f/u call) 05/15/2025 Travel 05/14/[address] [address] Michael Yanez ANP chart prep 05/14/[address] [address] Julianne Anne RN AB Status Check 05/14/2025 Patient Outreach [address] [address] Michael Yanez ANP 05/13/2025 Orders Only GENERIC EXTERNAL DATA DEPARTMENT Provider, Generic External Data 05/11/2025 Patient Outreach [address] [address] Michael Yanez ANP 05/09/2025 5:40 PM EDT Office Visit [facility] [address] [address] Michael Yanez ANP Cat bite, subsequent encounter (Primary Dx); Puncture wound of calf, right, subsequent encounter 05/09/2025 Travel 05/08/2025 9:45 AM EDT Office Visit [address] [address] Anushka Gunter, KYLER Lumbar spondylosis (Primary Dx); Long-term current use of opiate analgesic 05/08/2025 Refill [facility] [address] [place] [address] Kassy Ramsey, ILENE Long-term current use of opiate analgesic; Back pain, unspecified back location, unspecified back pain laterality, unspecified chronicity 05/08/2025 Travel 05/07/2025 Patient Outreach [address] [address] Michael Yanez ANP Care Coordination ([facility]/KHUSHBU Adamson- Appt reminder/PT-1 update) 05/06/2025 Results Follow-Up [facility] [address] [place] [phone] Jaleel Block MD CTA Chest PE Protocal 05/03/2025 Patient Outreach [address] [address] Michael Yanez ANP Care Coordination (Aimee/KHUSHBU Jurado-Follow up/PT-1) 05/03/2025 Patient Outreach [address] [address] Michael Yanez ANP Care Management (C3CM- f/u call) 05/01/2025 Orders Only [facility] [address] [place] [phone] Jaleel Block MD 04/25/2025 Patient Outreach [address] [address] Michael Yanez ANP 04/23/2025 Patient Outreach [address] [address] Michael Yanez ANP Care Management (C3CM- f/u call) 04/18/[address] [address] Michael Yanez ANP Long-term current use of opiate analgesic; Back pain, unspecified back location, unspecified back pain laterality, unspecified chronicity 04/17/2025 10:30 AM EDT Clinical Support [facility] [address] [place] [address] Kassy Ramsey RN Long-term current use of opiate analgesic (Primary Dx) 04/17/[address] [address] Michael Yanez ANP Iron deficiency anemia, unspecified iron deficiency anemia type 04/17/2025 Telephone [facility] [address] [place] [address] Kassy Ramsey RN 04/17/2025 Travel 04/16/2025 Refill [facility] [address] [place] [address] Michael Yanez ANP Iron deficiency anemia, unspecified iron deficiency anemia type 04/11/2025 4:00 PM EDT Office Visit [address] [address] Michael Yanez ANP Primary hypertension (Primary Dx); RUQ pain 04/11/2025 Orders Only GENERIC EXTERNAL DATA DEPARTMENT Provider, Generic External Data 04/11/2025 Travel 04/10/2025 9:45 AM EDT Office Visit [address] [address] Anushka Gunter FNP Lumbar spondylosis (Primary Dx); Long-term current use of opiate analgesic 04/10/2025 Patient Outreach [address] [address] Michael Yanez ANP Care Coordination (C3/CHW KHUSHBU Edwards- Appt reminder) 04/10/2025 Telephone [facility] [address] [place] [address] Kassy Ramsey, ILENE 04/10/[address] [address] Jaleel Block MD CTA Chest order 04/10/[address] [address] Michael Yanez ANP CHART PREP 04/10/2025 Telephone [facility] [address] [place] [address] Kassy Ramsey RN 04/10/2025 Travel 04/10/[address] [address] Michael Yanez ANP ER Follow-up 04/09/2025 Patient Outreach [address] [address] Michael Yanez ANP Care Management (C3CM- f/u call) 04/09/2025 Patient Outreach [address] [address] Michael Yanez ANP 04/06/2025 Patient Outreach [address] [address] Michael Yanez ANP Pre-visit Planning (SDOH screening completed on 02/26/25 ) 04/05/2025 Patient Outreach [address] [address] Michael Yanez ANP 04/05/2025 Telephone [facility] [address] [address] Jaleel Block MD 04/05/2025 [facility] [address] [address] Jaleel Block MD Right-sided chest pain (Primary Dx); Hemoptysis 04/05/2025 Orders Only [facility] External Provider, [facility] 04/04/2025 9:40 AM EDT [facility] [address] [address] Jaleel Block MD Right-sided chest pain (Primary Dx); Hemoptysis 04/04/2025 Telephone [facility] [address] [address] Jaleel Block MD 04/04/2025 Orders Only [facility] [address] [address] Jaleel Block MD 04/04/2025 Telephone [facility] [address] [place] [phone] Jaleel Block MD 04/04/2025 Travel 03/28/2025 Patient Outreach [address] [address] Michael Yanez ANP Care Coordination (C3/CHW Margareth Chavarria TC- PT-1 Coordination) 03/27/2025 Patient Outreach [address] [address] Michael Yanez ANP Care Management (C3CM- f/u call) 03/22/2025 Orders Only GENERIC EXTERNAL DATA DEPARTMENT Provider, Generic External Data 03/22/2025 Travel 03/22/[address] [address] Michael Yanez ANP Long-term current use of opiate analgesic (Primary Dx); Back pain, unspecified back location, unspecified back pain laterality, unspecified chronicity 03/21/2025 Patient Outreach [address] [address] Michael Yanez ANP Care Coordination ([facility]/KHUSHBU Jurado-Appt reminder-[facility]) 03/19/[address] [address] Michael Yanez ANP Arthralgia, unspecified joint 03/16/2025 Patient Outreach [address] [address] Michael Yanez ANP Care Coordination ([facility]/MONTY Chavarria-KHUSHBU- Booked PT-1 for upcoming appt to [facility]) 03/15/2025 Patient Outreach [address] [address] Michael Yanez ANP Care Management (C3- initial assessment/ enrollment/) 03/15/[address] [address] Berkley Hinkle RN 03/15/2025 Plan of Care Documentation [address] [address] 03/14/[address] [address] Michael Yanez ANP Iron deficiency anemia, unspecified iron deficiency anemia type; Primary hypertension 03/13/2025 Patient Outreach [address] [address] Michael Yanez ANP Care Coordination ([facility]/KHUSHBU Jurado- CM Complex Care [place] Appt Reminder) 03/12/2025 2:00 PM EDT Office Visit [facility] [address] [place] [address] Marcella Colindres MD Acute bursitis of left shoulder (Primary Dx) 03/12/2025 Travel 03/12/2025 Patient Outreach [address] [address] Michael Yanez ANP 03/11/[address] [address] Michael Yanez ANP Arthralgia, unspecified joint 03/10/2025 Orders Only GENERIC EXTERNAL DATA DEPARTMENT Provider, Generic External Data 02/28/2025 Patient Outreach [address] [address] Michael Yanez ANP 02/27/2025 1:00 PM EDT Telemedicine [address] [address] Julianne Anne RN Strain of left shoulder, initial encounter 02/27/2025 Travel 02/26/2025 Patient Outreach [address] [address] Michael Yanez ANP Care Coordination (C3/W Margareth Chavarria - ADT Outreach-Agrees to participate) 02/26/2025 Patient Outreach [address] [address] Michael Yanez ANP Care Coordination (C3/MONTY Chavarria, Chart Review) 02/26/2025 Patient Outreach [address] [address] Michael Yanez ANP Care Management (C3- chart review) 02/26/2025 Patient Outreach [address] [address] Michael Yanez ANP 02/25/2025 Refill [facility] [address] [place] [address] Jaleel Block MD from Last 3 Months Immunizations Immunization Administration [...] 3.2 oz) 05/25/2025 9:54 AM EDT Height 165.1 cm (5' 5 ) 05/15/2025 8:57 AM EDT Body Mass Index 23.5 05/15/2025 8:57 AM EDT Plan of Treatment Upcoming Encounters Date Type Department Care Team (Late st Contact Info) Description 06/12/2025 9:45 AM EDT Office Visit [facility] [address] [place] [address] 09/28/2025 9:30 AM EST Medication Management [facility] [address] [place] [address] Fay Leigh, PharmD [address] [place] [address] Health Maintenance Due Date Last Done Comments [...] 11/09/2018 SDOH Screening 02/26/2026 02/26/2025 Tobacco Screening 05/25/2026 05/25/2025 Lipid Panel 08/25/2029 08/25/2024, 12/08/2021 Colonoscopy 12/28/2033 [...] Procedure Name Priority Date/Time Associated Diagnosis Comments SED RATE BY MODIFIED WESTERGREN Routine 05/13/2025 9:41 AM EDT C-REACTIVE PROTEIN Routine 05/13/2025 9: 41 AM EDT COMPREHENSIVE METABOLIC PANEL Routine 05/13/2025 9:41 AM EDT CBC WITH AUTO DIFFERENTIAL Routine 05/13/2025 9:41 AM EDT HOLD RED TOP Routine 05/13/2025 9:41 AM EDT POCT MERY-14 URINE DRUG SCREEN Routine 05/08/2025 [...] Recently Relevant to Health Maintenance Results * Hold Red (05/13/2025 9:41 AM EDT) Hold Red See Note [facility] Comment:Specimen held untest ed for 24 hours; Call to requestChemistry testing. 05/13/2025 9:41 AM EDT 05/13/2025 9:46 AM EDT us Generic External Data Provider LAB BLOOD ORDERAB LES Final Result [facility] [address] [place] [address] [phone] * (ABNORMAL) CBC auto differential (05/13/2025 9:41 AM EDT) Only the most recent of3 resultswithin the time period is included. Pathologist [facility] White Blood Count 4.4(L) 4.8 - 10.8 X10*3/uL [facility] Red Blood Count 4.76 4.20 - 5.50 X10*6/uL [facility] Hemoglobin 13.8 12.0 - 16.0 g/dl [facility] Hematocrit 42.3 37.0 - 47.0 % [facility] Mean Corpuscular Volume 88.9 80.0 - 98.0 fL [facility] Mean Corpuscular Hemoglobin 29.0 27.0 - 33.0 pg [facility] Mean Corpuscular HGB Conc 32.6 31.0 - 35.0 g/dl [facility] Red Cell Distribution Width 13.8 11.0 - 16.0 % [facility] Platelet Count 272 160 - 400 X10*3/uL [facility] Mean Platelet Volume 8.1(L) 9.4 - 12.3 fL [facility] Neutrophils Percent Auto 42.8(L) 45 - 73 % [facility] Imm Gran Pct Auto 0.0 0.0 - 0.4 % [facility] Lymphocytes Percent Auto 38.5 20 - 40 % [facility] Monocytes Percent Auto 8.1 2 - 11 % [facility] Eosinophils Percent Auto 9.7(H) 0 - 4 % [facility] Basophils Percent Auto 0.9 0 - 2 % [facility] NRBC Pct Auto 0.0 0.0 - 0.2 /100WBC [facility] Neutrophils Absolute Auto 1.9(L) 2.0 - 8.3 x10*3/uL [facility] Imm Gran Abs Auto 0.00 0.00 - 0.03 X10*3/uL [facility] Lymphocytes Absolute Auto 1.7 1.2 - 4.9 X10*3/uL [facility] Monocytes Absolute Auto 0.4 0.1 - 1.2 X10*3/uL [facility] Eosinophils Absolute Auto 0.4 0.0 - 0.4 X10*3/uL [facility] Basophils Absolute Auto 0.0 0.0 - 0.2 X10*3/uL [facility] NRBC Abs Auto 0.000 0.0 - 0.012 X10*3/uL [facility] 05/13/2025 9:41 AM EDT 05/13/2025 9:45 AM EDT Generic External Data Provider LAB BLOOD ORDERAB LES Final Result [facility] [address] [place] [address] [phone] * Sed Rate by Modified Adrian (05/13/2025 9:41 AM EDT) Erythrocyte Sedimentation Rate 11 0 - 20 MM/HR [facility] Comment:Patients with polycy themia and many hemoglobin abnormalitiesmay have depressed sed rates whereas patients with anemiamay have elevated sed rates. 05/13/2025 9:41 AM EDT 05/13/2025 9:45 AM EDT us Generic External Data Provider LAB BLOOD ORDERAB LES Final Result Performing Organization Address City/[facility]/ZIP Co de Phone Number [facility] [address] [place] [address] [phone] * C-reactive Protein (05/13/2025 9:41 AM EDT) [facility] C Reactive Protein 0.27 < or = 0.50 mg/dL [facility] 05/13/2025 9:41 AM EDT 05/13/2025 9:45 AM EDT Generic External Data Provider LAB BLOOD ORDERAB LES Final Result Performing Organization Address [facility] [[email or web address]] Co de Phone Number [facility] [address] [place] [address] [phone] * (ABNORMAL) Comprehensive Metabolic Panel (05/13/2025 9:41 AM EDT) Only the most recent of2 resultswithin the time period is included. [facility] Sodium 143 135 - 145 mmol/L [facility] Potassium 4.6 3.3 - 5.1 mmol/L [facility] Chloride 111(H) 96 - 108 mmol/L [facility] Carbon Dioxide 25 22 - 29 mmol/L [facility] Anion Gap 12 12 - 20 [facility] Urea Nitrogen (BUN) 9 9 - 16 mg/dL [facility] Creatinine, Serum 0.86 0.5 - 1.4 mg/dL [facility] Creatinine Clr Calc Pharmacy 63.3 [facility] Comment:Provided height and weight: 165.1 cm,66.4 kg.eGFR (calculated from the MDRD study equation) and eCrCl(calculated from the Cockcroft-Gault equation) are based ondifferent parameters and may not yield comparable results.If eCrCl result is absurd, please check patient'sheight/weight. Estimated Glomerular Filt Rate >60 [facility] Comment:Chronic Kidney Disea se: Estimated GFR < 60 mL/min/1.56f7Xkpnor Kidney Disease: Estimated GFR < 15 mL/min/1.73m2 Glucose 109 60 - 115 mg/dL [facility] Calcium 9.4 8.4 - 10.2 mg/dL [facility] Bilirubin, Total 0.4 0.0 - 1.0 mg/dL [facility] Aspartate Amino Transferase 23 5 - 31 U/L [facility] Alanine Aminotransferase 19 0 - 31 U/L [facility] Total Protein 7.1 6.5 - 8.0 g/dL [facility] Albumin Level 4.2 3.5 - 5.0 g/dL [facility] Alkaline Phosphatase 99 39 - 117 U/L [facility] 05/13/2025 9:41 AM EDT 05/13/2025 9:45 AM EDT us Generic External Data Provider LAB BLOOD ORDERAB LES Final Result [facility] [address] [place] [phone] * POCT MERY-14 Urine Drug Screen (05/08/2025 [...] - 05/08/2025 10:33 AM EDT .UTOX cup Lot#[id number] Exp. 06/05/26 Internal Pass Control us Michael Yanez ANP POINT OF CARE TEST ENTER/EDIT OR DERABLES Final Result * CTA Chest PE Protocal (05/01/2025 2:33 PM EDT) Anatomical Region Laterality Modality Body, Chest Computed Tomogra phy 05/01/2025 2:33 PM EDT Narrative 05/01/2025 3:11 PM EDT [place] [address] [address] Scan Report Signed Patient: Laura Gonzalez MR#: [id number] : 1965 Acct:[id number] Age/Sex: 60 / F ADM Date: 05/01/25 Loc: HO.CT Attending Dr: Jaleel Block MD Ordering Physician: JALEEL BLOCK MD Date of Service: 05/01/25 Procedure(s): CT angio chest PE protocol Accession Number(s): [id number] cc: JALEEL BLOCK MD; MICHAEL YANEZ NP Report Number: [id number]: Total DLP = 139.00 mGy-cm Reason for [...] 05/01/25 1508 DD/ 1433 TD/TT: 05/01/25 1452 Wool Hanker: Procedure Note Donotuseinterpreter, Image - 05/01/[address] [place] [address] [address] Scan Report Signed Patient: Aleksandar Gonzalez#: [id number] : 1965Acct:[id number] Age/Sex: 60 / FADM Date: 05/01/25 Loc: .CT Attending Dr: Jaleel Block MD Ordering Physician: JALEEL BLOCK MD Date of Service: 05/01/25 Procedure(s): CT angio chest PE protocol Accession Number(s): [id number] cc: JALEEL BLOCK MD; MICHAEL YANEZ NP Report Number: [id number]: Total DLP = 139.00 mGy-cm Reason for [...] 05/01/25 1508 DD/ 1433 TD/TT: 05/01/25 1452 Wool Hanker: Jaleel Block MD IMG CT PROCEDURES Final Result * Hematoxylin and Eosin Stain (04/11/2025 12:01 PM EDT) 04/11/2025 12:0 1 PM EDT 04/11/2025 1:46 PM EDT [facility] - 04/12/2025 2:08 PM EDT ----- ------- Name: Laura Gonzalez Age/Sex: 60/F : 1965 Unit#: [id number] Attend Dr: Tung Potter MD Re04/11/25 Status: [facility] Location: [facility] Disch: ----- ------- SPEC : [id number] RECD: 04/11/25 STATUS: CIELO PRICE NUM: [id number] ANGELA: 04/11/[address] [facility] [address]: Tung Potter MD ENTERED: 04/11/25 SP [...] developed and their performance characteristics determined by [facility]. They have not been cleared or approved by the U.S. Food and Drug Administration (FDA). However, the FDA has determined that such clearance or approval is not necessary. This laboratory is CONTINUED ON NEXT PAGE ----- ------- Name: Laura Gonzalez Age/Sex: 60/F : 1965 Unit#: [id number] Attend Dr: Tugn Potter MD Re04/11/25 Status: [facility] Location: [facility] Disch: ----- ------- SPEC : [id number] RECD: 04/11/25 STATUS: CIELO PRICE NUM: [id number] ANGELA: 04/11/25-[address] [facility] [address]: Tung Potter MD ENTERED: 04/11/25 SP TYPE: Surgical OTHR DR: MICHAEL YANEZ NP ORDERED: HE Stain/6, Gross Micro L4/2, IHC, Special st. 2/2, H. pylori, AB/PAS/2 IHC S/NG Disclaimer (Continued) certified under the Clinical Laboratory Improvement Amendments of 1988 (CLIA) as qualified to perform high complexity clinical laboratory testing. Copies To: Tung Potter MD [facility] Weight Management Program [address] [place] [address] [phone] MICHAEL YANEZ NP [address] [place], [place] [phone] ----- ------- Signed (signature on file) Yasmeen Carrasco MD 04/12/25 1408 ----- ------- END OF REPORT us Generic External Data Provider LAB BLOOD ORDERAB LES Final Result [facility] [address] [place] [address] [phone] * Drug Monitoring, Benzodiazepines, Quantitative, Urine (04/10/2025 10:00 AM EDT) Nordiazepam, GCMS Urine NEGATIVE [facility] Comment:CUTOFF: 50 ng/mL Oxazepam, GCMS Urine NEGATIVE [facility] Comment:CUTOFF: 50 ng/mL Lorazepam GCMS Urine NEGATIVE [facility] Comment:CUTOFF: 50 ng/mL Alprazolam, GCMS Urine NEGATIVE [facility] Comment:CUTOFF: 25 ng/mL Alphahydroxytriazolam, GCMS Ur NEGATIVE [facility] Comment:CUTOFF: 50 ng/mL Temazepam, GCMS Urine NEGATIVE [facility] Comment:CUTOFF: 50 ng/mL Alphahydroxymidazolam,GC MS Ur NEGATIVE [facility] Comment:CUTOFF: 50 ng/mL Aminoclonazepam, GCMS Urine NEGATIVE [facility] Comment:CUTOFF: 25 ng/mL Flurazepam Metabolite,GCMS Ur NEGATIVE [facility] Comment:CUTOFF: 50 ng/mL Benzodiazepines Comments SEE NOTE [facility] Comment:This drug testing is for medical treatment only. Analysiswas performed as non-forensic testing and these resultsshould be used only by healthcare providers to renderdiagnosis or treatment, or to monitor progress of medicalconditions.LDT Notes:Confirmation tests were developed and their analyticalperformance characteristics have been determined by [employer]. It has not been cleared or approved by the FDA.This assay has been validated pursuant to the CLIAregulations and is used for clinical purposes.Healthcare Providers needing Interpretation assistance,please contact us at [phone] ( ) M-F,8am to 10pm ESTPERFORMING SITE:FORMERLY [facility] [employer] [facility], [address] [place] [phone] Hazmat Truck Driver: NILSA MATTHEWS MD, CLIA:[id number] Urine (Urine, Random) 04/10/2025 10:00 AM EDT 04/10/2025 1:08 PM EDT Michael Yanez [facility] URINE ORDERABLES Final Resul t Performing Organization Address [facility] [[email or web address]] Co de Phone Number [facility] [address] [place] [phone] * Drug Monitoring, Methadone Metabolite, Screen, Urine (04/10/2025 10:00 AM EDT) Methadone Screen, Urine Not Detected Not Detect ng/mL [facility] Comment:Methadone cut-off is 300 ng/mL.Positive results are unconfirmed and should not be used fornon-medical purposes. Urine (Urine, Random) 04/10/2025 10:00 AM EDT 04/10/2025 1:08 PM EDT us Michael Yanez [facility] URINE ORDERABLES Final Resul t Performing Organization Address [facility] [[email or web address]] Co de Phone Number [facility] [address] [place] [phone] * US Abdomen Limited (04/05/2025 12:53 PM EDT) Anatomical Region Laterality Modality Abdomen Ultrasound 04/05/2025 12:5 3 PM EDT Narrative 04/05/2025 1:28 PM EDT [address] [address] Ultrasound Report Signed Patient: Laura Gonzalez MR#: [id number] : 1965 Acct:[id number] Age/Sex: 60 / F ADM Date: 04/05/25 Loc: HO.ED Attending Dr: Ordering Physician: Alisha Saldivar PA-C Date of Service: 04/05/25 Procedure(s): US abdomen limited Accession Number(s): [id number] cc: Alisha Saldivar PA-C; MICHAEL YANEZ NP [...] 04/05/25 1325 DD/ 1253 TD/TT: 04/05/25 1302 Wool Hanker: Procedure Note Donotuseinterpreter, Image - 04/05/[address] [address] Ultrasound Report Signed Patient: Aleksandar Gonzalez#: [id number] : 1965Acct:[id number] Age/Sex: 60 / FADM Date: 04/05/25 Loc: HO.ED Attending Dr: Ordering Physician: Alisha Saldivar PA-C Date of Service: 04/05/25 Procedure(s): US abdomen limited Accession Number(s): [id number] cc: Alisha Saldivar PA-C; MICHAEL YANEZ NP [...] 04/05/25 1325 DD/ 1253 TD/TT: 04/05/25 1302 Wool Hanker: us [facility] External Provider IMG US PROCEDURES Final Result * (ABNORMAL) Urinalysis, Complete, with Reflex to Culture (04/05/2025 10:08 AM EDT) Color Urine Yellow [facility] Appearance Urine Turbid [facility] PH 7.0 5.0 - 9.0 [facility] Glucose Urine UA Negative Negative mg/dL [facility] Urine Blood Negative Negative [facility] Specific [place] - Urine 1.015 1.005 - 1.025 [facility] Urine Protein Negative Neg-Trace mg/dL [facility] Urine Ketones Negative Negative mg/dL [facility] Nitrite Urine Negative Negative [facility] Leukocyte Esterase Urine Moderate (2+)(A) Negative [facility] RBC Urine 0-2 0 - 2 /HPF [facility] Urine WBC 6-10(A) 0 - 5 /HPF [facility] Urine Squamous Epithelial Cell 0-2 0 - 2 /HPF [facility] Urine Bacteria None Seen None Seen [facility] Hyaline Casts, Urine 0-2 0 - 2 /LPF [facility] 04/05/2025 10:0 8 AM EDT 04/05/2025 10:13 AM EDT Narrative [facility] - 04/05/2025 10:22 AM EDT Urine, Clean Catch us Generic External Data Provider LAB URINE ORDERAB LES Final Result [facility] [address] [place] [phone] * D Dimer High Sensitivity (04/05/2025 10:05 AM EDT) Only the most recent of2 resultswithin the time period is included. D Dimer High Sensitivity 164 NG/ML [facility] Comment:D-DIMER HS REFERENCE RANGENote: Our [...] ORDERAB LES Final Result Performing Organization Address [facility] [[email or web address]] Co de Phone Number [facility] [address] [place] [phone] * High Sensitivity Troponin I (04/05/2025 10:05 AM EDT) Only the most recent of2 resultswithin the time period is included. TROPONIN I HIGH SENSITIVITY <2.7 <3.5 - 17.0 ng/L [facility] Comment:The Brar high sens itivity Troponin-I results should beused in conjunction with other diagnostic information suchas ECG, clinical observations and information, and patientsymptoms to aid in the diagnosis of [place]. 04/05/2025 10:0 5 AM EDT 04/05/2025 10:08 AM EDT us Generic External Data Provider LAB BLOOD ORDERAB LES Final Result Performing Organization Address [facility] de Phone Number [facility] [address] [place] [phone] * Lipase (04/05/2025 10:05 AM EDT) Only the most recent of2 resultswithin the time period is included. Lipase 19 8 - 78 U/L [facility] 04/05/2025 10:0 5 AM EDT 04/05/2025 10:08 AM EDT us Generic External Data Provider LAB BLOOD ORDERAB LES Final Result Performing Organization Address [facility] [[email or web address]] Co de Phone Number [facility] [address] [place] [phone] * CT Abdomen Pelvis w/o Contrast (04/05/2025 9:45 AM EDT) Anatomical Region Laterality Modality Body, Pelvis, Abdomen Computed T omography 04/05/2025 9:45 AM EDT Narrative 04/05/2025 10:20 AM EDT [address] [address] [address] Scan Report Signed Patient: Laura Gonzalez MR#: [id number] : 1965 Acct:[id number] Age/Sex: 60 / F ADM Date: 04/05/25 Loc: HO.ED Attending Dr: Ordering Physician: Alisha Saldivar PA-C Date of Service: 04/05/25 Procedure(s): CT abdomen pelvis wo IV con Accession Number(s): [id number] cc: Alisha Saldivar PA-C; MICHAEL YANEZ NP Report Number: [id number]: Total DLP = 431.00 mGy-cm EXAMINATION: CT [...] 04/05/25 1018 DD/ 0945 TD/TT: 04/05/25 1000 Wool Hanker: Procedure Note Donotuseinterpreter, Image - 04/05/[address] [address] [address] Scan Report Signed Patient: Aleksandar Gonzalez#: [id number] : 1965Acct:[id number] Age/Sex: 60 / FADM Date: 04/05/25 Loc: HO.ED Attending Dr: Ordering Physician: Alisha Saldivar PA-C Date of Service: 04/05/25 Procedure(s): CT abdomen pelvis wo IV con Accession Number(s): [id number] cc: Alisha Saldivar PA-C; MICHAEL YANEZ NP Report Number: [id number]: Total DLP = 431.00 mGy-cm EXAMINATION: CT [...] 04/05/25 1018 DD/ 0945 TD/TT: 04/05/25 1000 Wool Hanker: [facility] External Provider IMG CT PROCEDURES Final Result * XR Chest 2 Views (04/05/2025 8:44 AM EDT) Only the most recent of3 resultswithin the time period is included. Anatomical Region Laterality Modality Chest Radiographic Jennifer ging 04/05/2025 8:44 AM EDT Narrative 04/05/2025 9:59 AM EDT [address] [address] XRay Report Signed Patient: Laura Gonzalez MR#: [id number] : 1965 Acct:[id number] Age/Sex: 60 / F ADM Date: 04/05/25 Loc: HO.ED Attending Dr: Ordering Physician: Alisha Saldivar PA-C Date of Service: 04/05/25 Procedure(s): XR chest 2V Accession Number(s): [id number] cc: Alisha Saldivar PA-C; YANEZ,MICHAEL VP & GENERAL COUNSEL EXAMINATION: XR CHEST CLINICAL INFORMATION: right upper [...] in OV> 04/05/2556 DD/ TD/TT: 04/05/25 0942 Wool Hanker: Procedure Note Donotuseinterpreter, Image - 04/05/2025 [place] [address] XRay Report Signed Patient: Aleksandar Gonzalez#: [id number] : 1965Acct:[id number] Age/Sex: 60 / FADM Date: 04/05/25 Loc: .ED Attending Dr: Ordering Physician: Alisha Saldivar PA-C Date of Service: 04/05/25 Procedure(s): XR chest 2V Accession Number(s): [id number] cc: Alisha Saldivar PA-C; MICHAEL YANEZ VP & GENERAL COUNSEL EXAMINATION: XR CHEST CLINICAL INFORMATION: right upper [...] in OV> 04/05/2556 DD/ 3 TD/TT: 04/05/25941 Wool Hanker: [facility] External Provider IMG XR PROCEDURES Final Result * Culture, Urine, Routine (04/05/2025 12:00 AM EDT) Only the most recent of2 resultswithin the time period is included. Urine Urine specimen obtained by clean catch procedure / Unknown 04/05/2025 04/05/2025 Comment:UACC Narrative [facility] - 04/06/2025 10:53 AM EDT Urine Culture No growth. Specimen Source: Urine clean catch Generic External Data Provider LAB MICROBIOLOGY - GENERAL ORDERABLES Final Result Performing Organization Address [facility] [[email or web address]] Co de Phone Number [facility] [address] [place] [phone] * Creatinine, Serum (04/04/2025 2:21 PM EDT) Creatinine, Serum 0.78 0.5 - 1.4 mg/dL [facility] Estimated Glomerular Filt Rate >60 [facility] Comment:Chronic Kidney Disea se: Estimated GFR < 60 mL/min/1.54q7Yuxkwv Kidney Disease: Estimated GFR < 15 mL/min/1.73m2 Blood Venous blood specimen / Unknown 04/04/2025 2:21 PM EDT 04/04/2025 2:21 PM EDT Jaleel Block MD LAB BLOOD ORDERABLES Final Resul t Performing Organization Address [facility] [[email or web address]] Co de Phone Number [facility] [address] [place] [address] [phone] * BUN (Blood Urea Nitrogen) (04/04/2025 2:21 PM EDT) Urea Nitrogen (BUN) 11 9 - 16 mg/dL [facility] Blood Venous blood specimen / Unknown 04/04/2025 2:21 PM EDT 04/04/2025 2:21 PM EDT us Jaleel Block MD LAB BLOOD ORDERABLES Final Resul t [facility] [address] [place] [phone] * (ABNORMAL) Comprehensive Metabolic Panel, Fasting (03/10/2025 11:57 AM EDT) Sodium 139 135 - 145 mmol/L [facility] Potassium 4.0 3.3 - 5.1 mmol/L [facility] Chloride 107 96 - 108 mmol/L [facility] Carbon Dioxide 26 22 - 29 mmol/L [facility] Anion Gap 10(L) 12 - 20 [facility] Urea Nitrogen (BUN) 11 9 - 16 mg/dL [facility] Creatinine, Serum 0.77 0.5 - 1.4 mg/dL [facility] Creatinine Clr Calc Pharmacy 73.6 [facility] Comment:Provided height and weight: 167.64 cm,67.7 kg.eGFR (calculated from the MDRD study equation) and eCrCl(calculated from the Cockcroft-Gault equation) are based ondifferent parameters and may not yield comparable results.If eCrCl result is absurd, please check patient'sheight/weight. Estimated Glomerular Filt Rate >60 [facility] Comment:Chronic Kidney Disea se: Estimated GFR < 60 mL/min/1.00b6Mhrwvv Kidney Disease: Estimated GFR < 15 mL/min/1.73m2 Glucose Fasting 95 60 - 99 mg/dL [facility] Calcium 8.9 8.4 - 10.2 mg/dL [facility] Bilirubin, Total 0.8 0.0 - 1.0 mg/dL [facility] Aspartate Amino Transferase 27 5 - 31 U/L [facility] Alanine Aminotransferase 29 0 - 31 U/L [facility] Total Protein 7.1 6.5 - 8.0 g/dL [facility] Albumin Level 4.2 3.5 - 5.0 g/dL [facility] Alkaline Phosphatase 100 39 - 117 U/L [facility] 03/10/2025 11:5 7 AM EDT 03/10/2025 12:00 PM EDT Generic External Data Provider LAB BLOOD ORDERAB LES Final Result Performing Organization Address [facility] [[email or web address]] Co de Phone Number [facility] [address] [place] [phone] * Magnesium (03/10/2025 11:57 AM EDT) Magnesium 2.3 1.6 - 2.6 mg/dL [facility] 03/10/2025 11:5 7 AM EDT 03/10/2025 12:00 PM EDT Generic External Data Provider LAB BLOOD ORDERAB LES Final Result Performing Organization Address [facility] de Phone Number [facility] [address] [place] [phone] * XR Hip left with Pelvis 1 view (02/24/2025 12:58 PM EDT) Anatomical Region Laterality Modality Lower Extremities, Hip Bilateral Radiograp hic Imaging 02/24/2025 12:5 8 PM EDT Narrative 02/24/2025 12:59 PM EDT [address] [address] XRay Report Signed Patient: Laura Graham MR#: [id number] 27 : 1965 Acct:[id number] Age/Sex: 60 / F ADM Date: 02/24/25 Loc: .ED Attending Dr: Ordering Physician: Garth Pedersen Date of Service: 02/24/25 Procedure(s): XR hip LT w PEL1V Accession Number(s): [id number] cc: Garth Pedersen; MICHAEL YANEZ NP CLINICAL HISTORY: fall Exam: AP pelvis with AP and frog-leg lateral views of the left hip. Comparison: CT/FL/SR - CT ABDOMEN PELVIS WO IV CON [...] OV> 02/24/25 1259 DD/ 125 TD/TT: 02/24/251257 Wool Hanker: Procedure Note Donotuseinterpreter, Image - 02/24/2025 [place] [address] XRay Report Signed Patient: Aleksandar Graham#: [id number] 27 : 1965Acct:[id number] Age/Sex: 60 / FADM Date: 02/24/25 Loc: .ED Attending Dr: Ordering Physician: Garth Pedersen Date of Service: 02/24/25 Procedure(s): XR hip LT w PEL1V Accession Number(s): [id number] cc: Garth Pedersen; MICHAEL YANEZ NP CLINICAL HISTORY: fall Exam: AP pelvis with AP and frog-leg lateral views of the left hip. Comparison: CT/FL/SR - CT ABDOMEN PELVIS WO IV CON [...] 02/24/25 1259 DD/ 1258 TD/TT: 02/24/25 1258 Wool Hanker: us [facility] External Provider IMG XR PROCEDURES Final Result * XR Shoulder 2+ Views Left (02/24/2025 12:58 PM EDT) Anatomical Region Laterality Modality Upper Extremities, Shoulder Left Radi ographic Imaging 02/24/2025 12:5 8 PM EDT Narrative 02/24/2025 12:59 PM EDT [address] [address] XRay Report Signed Patient: Laura Graham MR#: [id number] 27 : 1965 Acct:[id number] Age/Sex: 60 / F ADM Date: 02/24/25 Loc: .ED Attending Dr: Ordering Physician: Garth Pedersen Date of Service: 02/24/25 Procedure(s): XR shoulder LT min 2V Accession Number(s): [id number] cc: Garth Pedersen; MICHAEL YANEZ NP CLINICAL [...] 02/24/25 1259 DD/ 1258 TD/TT: 02/24/25 1258 Wool Hanker: Procedure Note Jayda, Frances - 02/24/[address] [address] XRay Report Signed Patient: Paz GrahamR#: [id number] 27 : 1965Acct:[id number] Age/Sex: 60 / FADM Date: 02/24/25 Loc: HO.ED Attending Dr: Ordering Physician: Garth Pedersen Date of Service: 02/24/25 Procedure(s): XR shoulder LT min 2V Accession Number(s): [id number] cc: Garth Pedersen; MICHAEL YANEZ NP CLINICAL [...] 02/24/25 1259 DD/ 1258 TD/TT: 02/24/25 1258 Wool Hanker: [facility] External Provider IMG XR PROCEDURES Final Result * XR Knee 4+ Views Left (02/24/2025 12:55 PM EDT) Anatomical Region Laterality Modality Lower Extremities, Knee Left Radiogra phic Imaging 02/24/2025 12:5 5 PM EDT Narrative 02/24/2025 12:57 PM EDT [place] [address] XRay Report Signed Patient: Laura Graham MR#: [id number] 27 : 1965 Acct:[id number] Age/Sex: 60 / F ADM Date: 02/24/25 Loc: HO.ED Attending Dr: Ordering Physician: Garth Pedersen Date of Service: 02/24/25 Procedure(s): XR knee LT 4V Accession Number(s): [id number] cc: Garth Pedersen; MICHAEL YANEZ NP CLINICAL [...] 02/24/25 1257 DD/ 1255 TD/TT: 02/24/25 125 Wool Hanker: Procedure Note Donotuseinterpreter, Image - 02/24/[address] [place] [address] XRay Report Signed Patient: Aleksandar Graham#: [id number] 27 : 1965Acct:[id number] Age/Sex: 60 / FADM Date: 02/24/25 Loc: HO.ED Attending Dr: Ordering Physician: Garth Pedersen Date of Service: 02/24/25 Procedure(s): XR knee LT 4V Accession Number(s): [id number] cc: Garth Pedersen; MICHAEL YANEZ NP CLINICAL [...] 02/24/25 1257 DD/ 1255 TD/TT: 02/24/25 125 Wool Hanker: [facility] External Provider IMG XR PROCEDURES Final Result * BI Mammogram Screening Tomosynthesis Bilateral (02/05/2025 12:34 PM EDT) Anatomical Region Laterality Modality Breast Bilateral Mammography 02/05/2025 12:3 4 PM EDT Narrative 02/12/2025 2:54 PM EDT [address] [place] [address] Mammography Report Signed Patient: Laura Graham MR#: [id number] 27 : 1965 Acct:[id number] Age/Sex: 60 / F ADM Date: 02/05/25 Loc: HO.MAMMO Attending Dr: Alex Machuca MD Ordering Physician: Alex Machuca MD Results: 2Benign Findings Date of Service: 02/05/25 Follow Up: 1 Year From Orig inal Mammogram Procedure(s): MM tomosynthesis screening BI Accession Number(s): [id number] cc: MICHAEL YANEZ VP & GENERAL COUNSEL; Alex Machuca MD EXAMINATION: MM SCREENING DIGITAL [...] 02/12/25 1451 DD/ 1234 TD/TT: 02/05/25 1248 Wool Hanker: Procedure Note Donotuseinterpreter, Image - 02/12/20[facility] [address] [place] [address] Mammography Report Signed Patient: Paz GrahamR#: [id number] 27 : 1965Acct:[id number] Age/Sex: 60 / FADM Date: 02/05/25 Loc: HO.MAMMO Attending Dr: Alex Machuca MD Ordering Physician: Alex Machuca MDResults: 2Benign Findings Date of Service: 02/05/25Follow Up: 1 Year From Orig ina Mammogram Procedure(s): MM tomosynthesis screening BI Accession Number(s): [id number] cc: MICHAEL YANEZ VP & GENERAL COUNSEL; Alex Machuca MD EXAMINATION: MM SCREENING DIGITAL [...] 02/12/25 1451 DD/ 1234 TD/TT: 02/05/25 1248 Wool Hanker: us [facility] External Provider IMG BI PROCEDURES Final Result * (ABNORMAL) Lipid Panel, Standard (08/25/2024 10:00 AM EST) Triglycerides 61 <150 mg/dL [facility] Comment:Desirable Triglyceri de: less than 150 mg/dLBorderline High Triglyceride 150-199 mg/dLHigh Triglyceride: 200-499 mg/dLVery High Triglyceride: greater than or equal to 5OO mg/dL Cholesterol 173 <200 mg/dL [facility] Comment:Desirable Cholestero l: less than 200 mg/dLBorderline High Cholesterol: 200-239 mg/dLHigh Cholesterol: greater than 239 mg/dL LDL Cholesterol Calculated 105(H) <100 mg/dL [facility] Comment:Desirable LDL: less than 100 mg/dLNear Optimal/Above Optimal LDL: 110- 129 mg/dLBorderline High LDL: 130-159 mg/dLHigh LDL: 160-189 mg/dLVery High LDL: greater than or equal to 190 mg/dL HDL Cholesterol 56 >40 mg/dL [facility] Comment:Desirable HDL: grea ter than 40 mg/dL Note: This HDL assay may give artificially low results in patients with liver disease. 08/25/2024 10:0 0 AM EST 08/25/2024 11:37 AM EST [facility] LAB BLOOD ORDERABLES Final Resul t [facility] [address] [place] [phone] * HIV-1/2 Antigen and Antibodies, Fourth Generation, with Reflexes (01/04/2024 9:49 AM EDT) HIV AB/AG Nonreactive Nonreactive [facility] Comment:HIV-1 p24 Ag and/or HIV-1/HIV-2 Ab not detected.A test result that is nonreactive does not exclude thepossibility of exposure to or infection with HIV-1 and/orHIV-2. Nonreactive results in this assay for individualswith prior exposure to HIV-1 and/or HIV-2 may be due toantigen and antibody levels that are below the limit ofdetection of this assay.The [employer] HIV Ag/Ab Combo assay result andsupplemental assay results should be interpreted inconjunction with the patient's clinical presentation,history and other laboratory results. If the results areinconsistent with clinical evidence, additional testing issuggested to confirm the result. Blood Venous blood specimen / Unknown 01/04/2024 9:49 AM EDT 01/04/2024 11:50 AM EDT [facility] ANP LAB BLOOD ORDERABLES Final Resul t Performing Organization Address [facility] [[email or web address]] Co de Phone Number [facility] [address] [place] [phone] * Hepatitis C Ab (09/09/2022 10:23 AM EST) Hepatitis C Antibody Nonreactive Nonreactive [facility] Comment:Antibodies to HCV no t detected; does not exclude early acuteHCV infection. 09/09/2022 10:2 3 AM EST 09/09/2022 10:23 AM EST [facility] External Provider LAB BLO OD ORDERABLES Final Result Performing Organization Address [facility] [[email or web address]] Co de Phone Number [facility] [address] [place] [phone] * Hm Colonoscopy (07/08/2021 12:15 PM EST) Colonoscopy Normal Normal Fidencio Vila MD HEALTH MAINTENANCE Edited Re sult - Final from Last 3 Months or Most Recently Relevant to Health Maintenance Insurance [facility] C[place] [employer] Care Teams Merry Go Round Attendant Relationship Specialty Start Date End Date Michael Yanez ANP [address] [place] [address] PCP - General Family Medicine 01/16/20 Abel Chavarria RN [address] [place] [address] Registered Nurse Family Medicine 02/26/25 Margareth Chavarria 02/26/25
--- OUTSIDE RECORDS SUMMARY | 2025-05-25 16:04 | XMS_ITS | Encounter Summary ---
Author Organization [employer] Address [address] [place] [address] Street 7t [place] [address] Care Team Providers Care Mold Maker Plaster Name Role Phone Nupur Weir Primary Care Provider [phone] Abel Chavarria RN Unavailable [phone] Margareth Chavarria Unavailable Reason for Visit * Reason Onset Date Comments Med Refill 12/22/2024 Encounter Details Date Type Department Care Team ([facility] st Contact Info) Description 12/22/2024 Telephone [facility] [address] [place] [address] Nupur Weir ANP 230 [place] [address] Med Refill Social History Tobacco Use Types [...] the past 12 months, has t he [employer], gas, oil or water [email or web address] threatened to shut off services in your [...] 50 MG tablet To be sent to: [facility] - [place], [place] - [address] [place] [address] documented in this encounter Plan of Treatment Upcoming Encounters Date Type Department Care Team ([facility] st Contact Info) Description 06/12/2025 9:45 AM EDT Office Visit [facility] [address] [place] [address] 09/28/2025 9:30 AM EST Medication Management [facility] [address] [place] [address] Fay Leigh, PharmD 230 [place] [address] documented as of this encounter Visit Diagnoses Not on filedocumented in this encounter Care Teams Mold Maker Plaster Relationship Specialty Start Date End Date Nupur Weir ANP [address] [place] [address] PCP - General Family Medicine 01/16/20 Abel Chavarria RN [address] [place] [address] Registered Nurse Family Medicine 02/26/25 Margareth Chavarria 02/26/25 documented as of this encounter
--- OUTSIDE RECORDS SUMMARY | 2025-05-25 16:04 | XMS_ITS | Encounter Summary ---
Author Organization [employer] Address [address] [facility] [address] 7t [place] [address] Care Team Providers Care Property Preservation Specialist Name Role Phone Nupur Weir Primary Care Provider [phone] Abel Chavarria RN Unavailable [phone] Margareth Chavarria Unavailable Reason for Visit * Reason Comments Med Refill Encounter Details Date Type Department Care Team (Late st Contact Info) Description 03/11/2025 Refill [facility] 230 [place] [address] Nupur Weir ANP 230 [place] [address] Arthralgia, unspecified joint Social History Tobacco Use [...] Description 06/12/2025 9:45 AM EDT Office Visit [facility] [address] [place] [address] 09/28/2025 9:30 AM EST Medication Management [facility] [address] [place] [address] Fay Leigh, PharmD [address] [place] [address] documented as of this encounter Visit Diagnoses Diagnosis Arthralgia, unspecified joint documented in this encounter Care Teams Property Preservation Specialist Relationship Specialty Start Date End Date Nupur Weir ANP [address] [place] [address] PCP - General Family Medicine 01/16/20 Abel Chavarria RN [address] [place] [address] Registered Nurse Family Medicine 02/26/25 Margareth Chavarria 02/26/25 documented as of this encounter
== END 2025-05-25 15:39 | disposition home or self-care (01) ==
LOC: HO.US 15:38
PROVIDERS: PCP Nurse Practitioner Primary Care; Visit Provider Family Medicine
DX: R60.0 Localized edema (principal); M79.661 Pain in right lower leg
CPT/HCPCS: 76881; 93971

== ENCOUNTER → 2025-05-25 16:01 | Outpatient (BNV) | payer MEDICAID, SELFPAY | PROVIDERS: PCP Nurse Practitioner Primary Care; Visit Provider Radiology Diagnostic Radiology | DX: R22.41 Localized swelling, mass and lump, right lower limb (principal) | CPT/HCPCS: 76881; 93971 ==

== ENCOUNTER 2025-06-04 13:04 | Outpatient (AMB) | payer MEDICAID, SELFPAY ==
--- OUTSIDE RECORDS SUMMARY | 2023-12-29 09:10 | XMS_ITS ---
Author Organization [facility] Address [address] [place] [address] [place] [phone] Care Team Providers Care Tooling Engineering Tech Name Role Phone MICHAEL YANEZ N.P. Primary Care Provider Fidencio Langley Jr REASON FOR VISIT rectal bleeding Encounters Encounter Location Date Provider Diagnosis [facility] [place] [address] [place] [id number] 12/29/2023 Fidencio Vila Jr Rectal bleeding K62.5 Assessments Encounter Date Diagnosis (ICD Code) Assessment Notes Treatment Notes Treatment Clinical Notes Section Notes 12/29/2023 Rectal bleeding (ICD-10 - K62.5) Plan Of Treatment Next Appt Details Provider Name:Fidencio haider Jr, 07/18/2025 11:20:00 AM, [address] [place] [address], Suite [facility], [place], [address], Progress Notes * TIFFANIE TYLERMACB: 6 (60 yo F)Acc No.[id number]:12/29/2023 COLON WITH MAC Patient: TAY CAPELLAN Provider: Remi Vila MD :1965 A ge:58 Y S ex:Female Date:12/29/2023 Address:[address] [place] Pcp:MICHAEL YANEZ N.P. Subjective: * Chief Complaints: [...] 0 12/29/2023 Generated for Viviane negrete/Shakila/Jadenitting on: 1 03:25 PM EDT
--- OUTSIDE RECORDS SUMMARY | 2025-01-03 05:20 | XMS_ITS ---
Author Organization [facility] Address 10 [facility] [address] [place] [address] Care Team Providers Care Bulldozer Engineer Name Role Phone MICHAEL YANEZ N.P. Primary Care Provider Fidencio Langley Jr REASON FOR VISIT dysphagia Encounters Encounter Location Date Provider Diagnosis [facility] [address] [place] [address] 01/03/2025 Fidencio Vila Jr Plan Of Treatment Next Appt Details Provider Name:Fidencio haider Jr, 07/18/2025 11:20:00 AM, [address] [place] [address], [address], [place], [address], Progress Notes * TIFFANIE TYLERADOB: 6 (60 yo F)Acc No.[id number]:01/03/2025 Progress Notes Patient: TAY CAPELLAN Provider: Remi Vila MD :1965 A ge:59 Y S ex:Female Date:01/03/2025 Address:[address] [place] Pcp:MICHAEL YANEZ N.P. Subjective: * Chief Complaints: [...] 01/03/2025 Generated for Viviane negrete/Shakila/Constantino on: 1 03:25 PM EDT
[2025-06-04 13:10] VITALS: BMI 23.3
--- NOTE | 2025-06-04 13:10 | MHC.OFFVIS ---
Vital Signs 06/04/25 13:10 Height 5 ft 5 in Weight 140 lb BMI 23.3 Intake Visit Reasons: leg abscess Intake Note: This patient [place] [facility] [place] for cat bite right lower leg. Pt c/o; completed antibiotics 10 day course, cat bite, swelling, reports pain, reports she feels a lump and is concerned of ER visit: 05/13/2025 Kitchen Porter Required: Yes Kitchen Porter Language: Business Center Manager Services: Kitchen Porter Present Kitchen Porter Name: Marcia Information Interpreted: non-clinical & clinical Accompanied by: Self / Same As Patient Allergies ondansetron (From ZOFRAN) Allergy (Unknown, Verified 06/04/25 13:23) per H&P sumatriptan (From IMITREX) Allergy (Unknown, Verified 06/04/25 13:23) RASH FROM TABLET NOT INJECTION promethazine (From PHENERGAN) Adverse Reaction (Severe, Verified 06/04/25 13:23) DYSTONIA Medication List - Last Reconciled 06/04/25 by Raffy Ramirez MD amoxicillin-pot clavulanate 875-125 mg 1 tab PO BID 7 days diltiazem HCl CD 180 mg PO DAILY estradiol 0.01%(0.1mg/gram) Apply a pea-sized amount to urethra daily x1 month and then 3 times per week thereafter 30 days fosfomycin tromethamine 3 grams PO Q3D 9 days gabapentin 100 mg PO TID levothyroxine 25 mcg PO DAILY lidocaine 5% 1 patch topical DAILY losartan 50 mg PO DAILY nitrofurantoin monohyd/m-cryst 100 mg (Macrobid) 100 mg PO Q12H 5 days pantoprazole 40 mg PO DAILY pyridoxine (vitamin B6) 100 mg PO DAILY 90 days riboflavin (vitamin B2) (Vitamin B-2) 200 mg PO BID solifenacin (Vesicare) 5 mg PO DAILY 30 days topiramate 100 mg PO BID HPI HPI leg abscess: Details: [age] year old female here because of what she described as an abscess on her right lower leg. She says she had an area of swelling, redness and drainage a month ago. She says it feels much better now although she says she still feels a small lump on the area. She says she wants this removed. She denies any redness anymore. She says this might have been from a cat bite but she is unsure. She had gone to the ER at that time and was on antibiotics. [facility] Medical History (Updated 06/04/25 @ 13:34 by Raffy Ramirez MD) Abscess of leg Well woman exam Epidermal cyst Migraine HTN (hypertension) IBS (irritable bowel syndrome) GERD (gastroesophageal reflux disease) Chronic interstitial cystitis Sleep apnea Asthma Anemia Hypercholesteremia Depression Anxiety Sacrococcygeal pilonidal cyst Recurrent UTI Goiter Flank pain Dysuria Hypercalciuria Swelling of joint, ankle, right Swelling of right foot Vitamin D deficiency Hypothyroidism Right patella fracture History of secondary hyperparathyroidism Abnormal mammogram Surgical History History of removal of cyst (~05/12/24) History of bladder surgery H/O bilateral salpingo-oophorectomy S/P gastric bypass H/O left breast biopsy H/O: hysterectomy History of bilateral tubal ligation History of appendectomy Family History Mother Uterine cancer Father No problems noted. 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 Sexual orientation: Straight/Heterosexual Gender identity: Female Female Reproductive History Menstrual Age of Menarche: 13 Review of Systems Const Denies chills and Denies fever(s) Card Denies chest pain, Denies dyspnea and Denies dyspnea on exertion Resp Denies cough, Denies dyspnea and Denies dyspnea on exertion GI Denies hematochezia and Denies change in bowel habits Denies hematuria Musc Denies back pain and Denies limited range of motion Neuro Denies focal weakness and Denies convulsions Psych Denies depression and Denies mood swings Physical Exam Vital Signs: BMI result Body Mass Index 23.3 Const General: comfortable and no acute distress Orientation/consciousness: patient oriented x3 Neck Neck: Yes no lymphadenopathy Resp Auscultation: clear to auscultation bilaterally Cardio Rhythm: regular rhythm GI Palpation (GI): Soft to palpation, nontender and no guarding Neuro General: patient oriented x3 Extrem Other: Right lower leg, medial aspect with note of an indurated area about 1.5 cm, healed open wound with scar, question ruptured epidermal cyst Assessment & Plan Assessment & Plan (1) Abscess of leg: Code(s): L02.419 - Cutaneous abscess of limb, unspecified Category: Medical Plan: She says she an area of swelling, redness and drainage as described above last month. This has improved significantly. There is still some residual induration. She likely had a ruptured epidermal cyst although she is uncertain as she also says she had a cat bite in the area. She however wants this indurated area excised. I explained the technique of excision under local anesthesia. I reviewed the risks including but not limited to bleeding, infections and poor healing, as well as the benefits and alternatives. She understands and wants to proceed. This has been done in the office on her next visit. Coding Level of Care Code New Pt Level 3 (71436) Diagnoses Abscess of leg L02.419
--- OUTSIDE RECORDS SUMMARY | 2025-06-04 15:25 | XMS_ITS | Encounter Summary ---
Author Organization [employer] Address [address] [place] [address] Street 7t [place] [address] Care Team Providers Care Ramp Flight Attendant Name Role Phone Nupur Weir Primary Care Provider [phone] Abel Chavarria RN Unavailable [phone] Margareth Chavarria Unavailable Reason for Visit * Reason Comments Med Refill Encounter Details Date Type Department Care Team (Late st Contact Info) Description 12/21/[address] [facility] [address] [place] [address] Nupur Weir ANP 230 [place] [address] Arthralgia, unspecified joint Social History Tobacco Use [...] t he electric, gas, oil or water [employer] threatened to shut off services in your [...] Description 06/12/2025 9:45 AM EDT Office Visit [address] [address] 08/14/2025 9:15 AM EST Office Visit [address] [address] Nupur Weir ANP [address] [place] [address] 09/28/2025 9:30 AM EST Medication Management [address] [address] Fay Leigh, MayoD [address] [place] [address] documented as of this encounter Visit Diagnoses Diagnosis Arthralgia, unspecified joint documented in this encounter Care Teams Ramp Flight Attendant Relationship Specialty Start Date End Date Nupur Weir ANP [address] [place] [address] PCP - General Family Medicine 01/16/20 Abel Chavarria, ILENE [address] [place] [address] Registered Nurse Family Medicine 02/26/25 Margareth Chavarria 02/26/25 documented as of this encounter
--- OUTSIDE RECORDS SUMMARY | 2025-06-04 15:25 | XMS_ITS | Encounter Summary ---
Author Organization [employer] Address [address] [place] [address] Street 7t [place] [address] Care Team Providers Care Metal Sander Name Role Phone Nupur Weir Primary Care Provider [phone] Abel Chavarria RN Unavailable [phone] Margareth Chavarria Unavailable Reason for Visit * Reason Onset Date Comments dec recall 05/31/2025 Encounter Details Date Type Department Care Team ([facility] st Contact Info) Description 05/31/2025 Telephone [facility] [address] [place] [address] Nupur Weir ANP [address] [place] [address] dec recall Social History Tobacco Use Types Packs/Day Years [...] encounter Miscellaneous Notes * Telephone Encounter - Isa De La Cruz [place] - 05/31/2025 10:46 AM EDT Telephone call to patient to schedule the following recall: Visit type: Follow up Appointment notes: HTN & lab review. Patient agree to appointment on 08/14/25 at 9:15 AM with Carmella. documented in this encounter Plan of Treatment Upcoming Encounters Date Type Department Care Team (Late st Contact Info) Description 06/12/2025 9:45 AM EDT Office Visit [facility] [address] [place] [address] 08/14/2025 9:15 AM EST Office Visit [facility] [address] [place] [address] Nupur Weir, ANP 230 [place] [address] 09/28/2025 9:30 AM EST Medication Management [facility] [address] [place], [place] [phone] Fay Leigh, PharmD [address] [place] [address] documented as of this encounter Visit Diagnoses Not on filedocumented in this encounter Additional Health Concerns Assessment Noted Time PHQ-9 Depression Total Score: 17 025 10:08 AM EDT documented as of this encounter Care Teams Metal Sander Relationship Specialty Start Date End Date Nupur Weir ANP [address] [place], [place] [phone] PCP - General Family Medicine 01/16/20 Abel Chavarria, ILENE [address] [place] [address] Registered Nurse Family Medicine 02/26/25 Margareth Chavarria 02/26/25 documented as of this encounter
--- OUTSIDE RECORDS SUMMARY | 2025-06-04 15:25 | XMS_ITS | Encounter Summary ---
Author Organization [employer] Address [address] 7t [place] [address] Care Team Providers Care High School Learning Support Teacher Name Role Phone Nupur Weir Primary Care Provider [phone] Abel Chavarria RN Unavailable Margareth Chavarria Unavailable Reason for Visit * Reason Comments Med Refill Encounter Details Date Type Department Care Team (Late st Contact Info) Description 11/11/2023 Refill [facility] 230 [place] [address] Nupur Weir ANP 230 [place] [address] Social History Tobacco Use Types Packs/Day Years [...] Description 06/12/2025 9:45 AM EDT Office Visit [address] [address] 08/14/2025 9:15 AM EST Office Visit [address] [address] Nupur Weir ANP [address] [place] [address] 09/28/2025 9:30 AM EST Medication Management [address] [address] Fay Leigh, PharmD [address] [place] [address] documented as of this encounter Visit Diagnoses Not on filedocumented in this encounter Care Teams High School Learning Support Teacher Relationship Specialty Start Date End Date Nupur Weir ANP [address] [place] [address] PCP - General Family Medicine 01/16/20 Abel Chavarria, ILENE [address] [place] [address] Registered Nurse Family Medicine 02/26/25 Margareth Chavarria 02/26/25 documented as of this encounter
--- OUTSIDE RECORDS SUMMARY | 2025-06-04 15:25 | XMS_ITS | Encounter Summary ---
Author Organization [employer] Address [address] [place] [address] Street 7t [place] [address] Care Team Providers Care Medart Operator Name Role Phone Nupur Weir Primary Care Provider Abel Chavarria RN Unavailable [phone] Margareth Chavarria Unavailable Reason for Visit * Reason Onset Date Comments rs no show appt 11/30/2024 Encounter Details Date Type Department Care Team (Late st Contact Info) Description 11/30/2024 Telephone [facility] 230 [place] [address] Taty, Laura 230 [place] [address] rs no show appt Social History Tobacco [...] the past 12 months, has t he [employer], gas, oil or water company threatened to [...] 06/12/2025 9:45 AM EDT Office Visit [address] [address] 08/14/2025 9:15 AM EST Office Visit [address] [address] Nupur Weir ANP [address] [place] [address] 09/28/2025 9:30 AM EST Medication Management [address] [address] Fay Leigh, PharmD [address] [place] [address] documented as of this encounter Visit Diagnoses Not on filedocumented in this encounter Care Teams Medart Operator Relationship Specialty Start Date End Date Nupur Weir ANP [address] [place] [address] PCP - General Family Medicine 01/16/20 Abel Chavarria, ILENE [address] [place] [address] Registered Nurse Family Medicine 02/26/25 Margareth Chavarria 02/26/25 documented as of this encounter
--- OUTSIDE RECORDS SUMMARY | 2025-06-04 15:25 | XMS_ITS | Encounter Summary ---
Author Organization [employer] Address [address] [facility] [address] 7t [place] [address] Care Team Providers Care Back Filler Operator Name Role Phone Nupur Weir Primary Care Provider [phone] Abel Chavarria RN Unavailable [phone] Margareth Chavarria Unavailable Reason for Visit * Reason Comments Med Refill Encounter Details Date Type Department Care Team (Late st Contact Info) Description 11/07/[address] [facility] [address] [place] [address] Nupur Weir ANP [address] [place] [address] Primary hypertension; Iron deficiency anemia, unspecified iron [...] Description 06/12/2025 9:45 AM EDT Office Visit [address] [address] 08/14/2025 9:15 AM EST Office Visit [address] [address] Nupur Weir, BATOOL [address] [place] [address] 09/28/2025 9:30 AM EST Medication Management [address] [address] Fay Leigh, Elba [address] [place] [address] documented as of this encounter Visit Diagnoses Diagnosis Primary hypertension Unspecified essential hypertension Iron deficiency anemia, unspecified iron deficiency anemia type documented in this encounter Care Teams Back Filler Operator Relationship Specialty Start Date End Date Nupur Weir ANP 230 [place] [address] PCP - General Family Medicine 01/16/20 Abel Chavarria RN [address] [place] [address] Registered Nurse Family Medicine 02/26/25 Margareth Chavarria 02/26/25 documented as of this encounter
--- OUTSIDE RECORDS SUMMARY | 2025-06-04 15:25 | XMS_ITS | Encounter Summary ---
Author Organization [employer] Address [address] [place] [address] 7t [place] [address] Care Team Providers Care Aerial Photograph Interpreter Name Role Phone Nupur Weir Primary Care Provider [phone] Abel Chavarria RN Unavailable [phone] Margareth Chavarria Unavailable Reason for Visit * Reason Onset Date Comments Med Refill 10/01/2023 Encounter Details Date Type Department Care Team ([facility] st Contact Info) Description 10/01/2023 Telephone [facility] 230 [place] [address] Nupur Weir ANP [address] [place] [address] Med Refill Social History Tobacco Use Types [...] Base) MCG/ACT inhaler To be sent to: [id number] [place], [place] - [address] [facility] documented in this encounter Plan of Treatment Upcoming Encounters Date Type Department Care Team (Late st Contact Info) Description 06/12/2025 9:45 AM EDT Office Visit [address] [address] 08/14/2025 9:15 AM EST Office Visit [facility] [address] [place] [address] Nupur Weir, ANP [address] [place] [address] 09/28/2025 9:30 AM EST Medication Management [facility] [address] [place] [address] Fay Leigh, PharmD [address] [place] [address] documented as of this encounter Visit Diagnoses Not on filedocumented in this encounter Care Teams Aerial Photograph Interpreter Relationship Specialty Start Date End Date Nupur Weir ANP [address] [place] [address] PCP - General Family Medicine 01/16/20 Abel Chavarria, ILENE [address] [place] [address] Registered Nurse Family Medicine 02/26/25 Margareth Chavarria 02/26/25 documented as of this encounter
--- OUTSIDE RECORDS SUMMARY | 2025-06-04 15:25 | XMS_ITS | Encounter Summary ---
Author Organization [employer] Address [address] [place] [address] Street 7t [place] [address] Care Team Providers Care Property Insurance Claims Examiner Name Role Phone Nupur Weir Primary Care Provider [phone] Abel Chavarria RN Unavailable [phone] Margareth Chavarria Unavailable Reason for Visit * Reason Comments Med Refill Encounter Details Date Type Department Care Team (Late st Contact Info) Description 09/19/2023 Refill [facility] 230 [place] [address] Nupur Weir ANP 230 [place] [address] Constipation, unspecified constipation type Social History Tobacco [...] Description 06/12/2025 9:45 AM EDT Office Visit [address] [address] 08/14/2025 9:15 AM EST Office Visit [address] [address] Nupur Weir ANP [address] [place] [address] 09/28/2025 9:30 AM EST Medication Management [address] [address] Fay Leigh PharmD [address] [place] [address] documented as of this encounter Visit Diagnoses Diagnosis Constipation, unspecified constipation type documented in this encounter Care Teams Property Insurance Claims Examiner Relationship Specialty Start Date End Date Nupur Weir ANP [address] [place] [address] PCP - General Family Medicine 01/16/20 Abel Chavarria, ILENE [address] [place] [address] Registered Nurse Family Medicine 02/26/25 Margareth Chavarria 02/26/25 documented as of this encounter
--- OUTSIDE RECORDS SUMMARY | 2025-06-04 15:25 | XMS_ITS | Encounter Summary ---
Author Organization [employer] Address [address] [facility] [address] 7t [place] [address] Care Team Providers Care Postmaster Relief Name Role Phone Nupur Weir Primary Care Provider [phone] Abel Chavarria RN Unavailable Margareth Chavarria Unavailable Encounter Details Date Type Department Care Team (Late st Contact Info) Description 05/25/2025 Results Follow-Up [facility] 230 [place] [address] Nupur Weir ANP 230 [place] [address] US VENOUS DUPLEX LE RT, US Extremity Non Vascular Complete Joint Right Social History Tobacco Use Types Packs/Day Years [...] as of this encounter Miscellaneous Notes * Result Encounter Note - BATOOL Liang - 05/25/2025 5:19 PM EDT Hi Laura, This ultrasound is normal. Please call our office if you have any questions. Por favor llame a la oficina si tiene preguntas. Take care, Cu??Nupur arambula SUPERVISOR BILLPOSTING documented in this encounter Plan of Treatment Upcoming Encounters Date Type Department Care Team (Late st Contact Info) Description 06/12/2025 9:45 AM EDT Office Visit [facility] [address] [place] [address] 08/14/2025 9:15 AM EST Office Visit [facility] [address] [place] [address] Nupur Weir ANP 230 [place] [address] 09/28/2025 9:30 AM EST Medication Management [facility] [address] [place], [place] [phone] Fay Leigh, PharmD 230 [place] [address] documented as of this encounter Visit Diagnoses Not on filedocumented in this encounter Additional Health Concerns Assessment Noted Time PHQ-9 Depression Total Score: 17 025 10:08 AM EDT documented as of this encounter Care Teams Postmaster Relief Relationship Specialty Start Date End Date Nupur Weir ANP 230 [place], [place] [phone] PCP - General Family Medicine 01/16/20 Abel Chavarria, ILENE [address] [place] [address] Registered Nurse Family Medicine 02/26/25 Margareth Chavarria 02/26/25 documented as of this encounter
--- OUTSIDE RECORDS SUMMARY | 2025-06-04 15:25 | XMS_ITS | Encounter Summary ---
Author Organization [employer] Address [address] [place] [address] Street 7t [place] [address] Care Team Providers Care Shoemaker Custom Name Role Phone Nupur Weir Primary Care Provider [phone] Abel Chavarria RN Unavailable [phone] Margareth Chavarria Unavailable Reason for Visit * Reason Onset Date Comments Appointment Request 11/30/2024 Encounter Details Date Type Department Care Team ([facility] st Contact Info) Description 11/30/2024 Telephone [facility] MED[facility]INE [address] [place] [address] Nupur Weir ANP 230 [place] [address] Appointment Request Social History Tobacco Use Types [...] t he electric, gas, oil or water [employer] threatened to shut off services in your [...] EDT Tc from pt requesting to r/s CLINICAL IMPLEMENTATION SPECIALIST appt. States has another appt around the same time at sleep medicine and pt informs takes bus and believes will not be able to make it on time. Would like to r/s for Wednesday. documented in this encounter Plan of Treatment Upcoming Encounters Date Type Department Care Team (Late st Contact Info) Description 06/12/2025 9:45 AM EDT Office Visit [address] [address] 08/14/2025 9:15 AM EST Office Visit [address] [address] Nupur Weir ANP 230 [place] [address] 09/28/2025 9:30 AM EST Medication Management [address] [address] Fay Leigh, PharmD 230 [place] [address] documented as of this encounter Visit Diagnoses Not on filedocumented in this encounter Care Teams Shoemaker Custom Relationship Specialty Start Date End Date Nupur Weir ANP 230 [place] [address] PCP - General Family Medicine 01/16/20 Abel Chavarria, ILENE [address] [place] [address] Registered Nurse Family Medicine 02/26/25 Margareth Chavarria 02/26/25 documented as of this encounter
--- OUTSIDE RECORDS SUMMARY | 2025-06-04 15:25 | XMS_ITS | Encounter Summary ---
Author Organization [employer] Address [address] 7t [place] [address] Care Team Providers Care Kitchen Runner Name Role Phone Nupur Weir Primary Care Provider [phone] Abel Chavarria RN Unavailable [phone] Margareth Chavarria Unavailable Reason for Visit * Reason Comments Med Refill Encounter Details Date Type Department Care Team ([facility] st Contact Info) Description 02/11/2024 Refill [facility] MED[facility] 230 [place] [address] Nupur Weir ANP 230 [place] [address] Social History Tobacco Use Types Packs/Day Years [...] Description 06/12/2025 9:45 AM EDT Office Visit [address] [address] 08/14/2025 9:15 AM EST Office Visit [address] [address] Nupur Weir ANP [address] [place] [address] 09/28/2025 9:30 AM EST Medication Management [address] [address] Fay Leigh, PharmD [address] [place] [address] documented as of this encounter Visit Diagnoses Not on filedocumented in this encounter Care Teams Kitchen Runner Relationship Specialty Start Date End Date Nupur Weir ANP [address] [place] [address] PCP - General Family Medicine 01/16/20 Abel Chavarria, ILENE [address] [place] [address] Registered Nurse Family Medicine 02/26/25 Margareth Chavarria 02/26/25 documented as of this encounter
--- OUTSIDE RECORDS SUMMARY | 2025-06-04 15:25 | XMS_ITS | Encounter Summary ---
Author Organization [employer] [facility] Address [address] [place] [address] 7t [place] [address] Care Team Providers Care Molding Manager Name Role Phone Nupur Weir Primary Care Provider [phone] Abel Chavarria RN Unavailable [phone] Margareth Chavarria Unavailable Reason for Visit * Reason Comments Med Refill Encounter Details Date Type Department Care Team (Late st Contact Info) Description 01/09/2023 Refill [facility] MED[facility]INE 230 [place] [address] Nupur Weir ANP 230 [place] [address] Arthralgia, unspecified joint; Other specified hypothyroidism Social [...] Description 06/12/2025 9:45 AM EDT Office Visit [address] [address] 08/14/2025 9:15 AM EST Office Visit [address] [address] Nupur Weir ANP [address] [place] [address] 09/28/2025 9:30 AM EST Medication Management [address] [address] Fay Leigh PharmD [address] [place] [address] documented as of this encounter Visit Diagnoses Diagnosis Arthralgia, unspecified joint Other specified hypothyroidism documented in this encounter Care Teams Molding Manager Relationship Specialty Start Date End Date Nupur Weir ANP [address] [place] [address] PCP - General Family Medicine 01/16/20 Abel Chavarria, RN [address] [place] [address] Registered Nurse Family Medicine 02/26/25 Margareth Chavarria 02/26/25 documented as of this encounter
--- OUTSIDE RECORDS SUMMARY | 2025-06-04 15:25 | XMS_ITS | Encounter Summary ---
Author Organization [employer] Address [address] [facility] [facility] [address] 7t [place] [address] Care Team Providers Care Tunneller Name Role Phone Nupur Weir Primary Care Provider [phone] Abel Chavarria RN Unavailable [phone] Margareth Chavarria Unavailable Reason for Visit * Reason Comments Med Refill Encounter Details Date Type Department Care Team (Late st Contact Info) Description 02/11/[address] [facility] MEDICINE 230 [place] [address] Marcella Colindres MD 230 [place] [address] Gastritis medicamentosa Social History Tobacco Use Types [...] Description 06/12/2025 9:45 AM EDT Office Visit [address] [address] 08/14/2025 9:15 AM EST Office Visit [address] [address] Nupur Weir ANP [address] [place] [address] 09/28/2025 9:30 AM EST Medication Management [address] [address] Fay Leigh PharmD [address] [place] [address] documented as of this encounter Visit Diagnoses Diagnosis Gastritis medicamentosa Other specified gastritis without mention of hemorrhage documented in this encounter Care Teams Tunneller Relationship Specialty Start Date End Date Nupur Weir ANP [address] [place] [address] PCP - General Family Medicine 01/16/20 Abel Chavarria, ILENE [address] [place] [address] Registered Nurse Family Medicine 02/26/25 Margareth Chavarria 02/26/25 documented as of this encounter
--- OUTSIDE RECORDS SUMMARY | 2025-06-04 15:26 | XMS_ITS ---
Author Organization [employer] Address [address] [place] [address] 7t [place] [address] Care Team Providers Care Spindraw Operator Name Role Phone Nupur Weir Primary Care Provider [phone] Abel Chavarria RN Unavailable [phone] Margareth Chavarria Unavailable CM Complex Status:Enrolled (Active) Start date:02/26/2025 Enrollment date:03/15/2025 Enrollment reason:ADT Feed Overview ED- Pt went to [facility] on 02/24/25. Case Team Name Relationship Phone Abel Chavarria RN(Responsible Staff) Registered Nurse [phone] Continued Care and Services Coordination
--- OUTSIDE RECORDS SUMMARY | 2025-06-04 15:26 | XMS_ITS | Encounter Summary ---
Author Organization [employer] Address [address] [place] [address] Street 7t [place] [address] Care Team Providers Care Procurement Analyst Name Role Phone Nupur Weir Primary Care Provider [phone] Abel Chavarria RN Unavailable [phone] Margareth Chavarria Unavailable Reason for Visit * Reason Onset Date Comments Med Refill 01/19/2025 Encounter Details Date Type Department Care Team ([facility] st Contact Info) Description 01/19/2025 Telephone [facility] MEDICINE 230 [place] [address] Nupur Weir ANP 230 [place] [address] Med Refill Social History Tobacco Use Types [...] t he electric, gas, oil or water [employer] threatened to shut off services in your [...] 50 MG tablet To be sent to: [facility] pharmacy documented in this encounter Plan of Treatment Upcoming Encounters Date Type Department Care Team (Late st Contact Info) Description 06/12/2025 9:45 AM EDT Office Visit [facility] [address] [place] [address] 08/14/2025 9:15 AM EST Office Visit [facility] [address] [place] [address] Nupur Weir, ANP 230 [place] [address] 09/28/2025 9:30 AM EST Medication Management [facility] 230 [place] [address] Fay Leigh, PharmD 230 [place] [address] documented as of this encounter Visit Diagnoses Not on filedocumented in this encounter Care Teams Procurement Analyst Relationship Specialty Start Date End Date Nupur Weir ANP [address] [place] [address] PCP - General Family Medicine 01/16/20 Abel Chavarria, ILENE [address] [place] [address] Registered Nurse Family Medicine 02/26/25 Margareth Chavarria 02/26/25 documented as of this encounter
--- OUTSIDE RECORDS SUMMARY | 2025-06-04 15:26 | XMS_ITS | Encounter Summary ---
Author Organization [employer] Address [address] [place] [address] 7t [place] [address] Care Team Providers Care Toll Repairer Central Office Name Role Phone Nupur Weir Primary Care Provider [phone] Abel Chavarria RN Unavailable Margareth Chavarria Unavailable Reason for Visit * Reason Onset Date Comments Med Refill 05/14/2023 Encounter Details Date Type Department Care Team (Late st Contact Info) Description 05/14/2023 Telephone [facility] MEDICINE 230 [place] [address] Nupur Weir ANP 230 [place], [place] [phone] Med Refill Social History Tobacco Use Types [...] Description 06/12/2025 9:45 AM EDT Office Visit [address] [address] 08/14/2025 9:15 AM EST Office Visit [address] [address] Nupur Weir ANP [address] [place] [address] 09/28/2025 9:30 AM EST Medication Management [address] [address] Fay Leigh PharmD [address] [place] [address] documented as of this encounter Visit Diagnoses Not on filedocumented in this encounter Care Teams Toll Repairer Central Office Relationship Specialty Start Date End Date Nupur Weir ANP [address] [place] [address] PCP - General Family Medicine 01/16/20 Abel Chavarria, RN [address] [place] [address] Registered Nurse Family Medicine 02/26/25 Margareth Chavarria 02/26/25 documented as of this encounter
--- OUTSIDE RECORDS SUMMARY | 2025-06-04 15:26 | XMS_ITS | Encounter Summary ---
Author Organization [employer] [facility] Address [address] [place] [address] 7t [place] [address] Care Team Providers Care Biometrician Name Role Phone Nupur Weir Primary Care Provider Abel Chavarria RN Unavailable [phone] Margareth Chavarria Unavailable Encounter Details Date Type Department Care Team (Late st Contact Info) Description 08/14/2022 Abstract [facility] 230 [place] [address] Angel Lagos, CAPRI 230 [place] [address] Social History Tobacco Use Types Packs/Day Years [...] Description 06/12/2025 9:45 AM EDT Office Visit [facility] [address] [place] [address] 08/14/2025 9:15 AM EST Office Visit [facility] [address] [place] [address] Nupur Weir ANP 230 [place] [address] 09/28/2025 9:30 AM EST Medication Management [facility] 230 [place] [address] Fay Leigh, MayoD 230 [place] [address] documented as of this encounter Visit Diagnoses Not on filedocumented in this encounter Care Teams Biometrician Relationship Specialty Start Date End Date Nupur Weir ANP [address] [place] [address] PCP - General Family Medicine 01/16/20 Abel Chavarria RN [address] [place] [address] Registered Nurse Family Medicine 02/26/25 Margareth Chavarria 02/26/25 documented as of this encounter
--- OUTSIDE RECORDS SUMMARY | 2025-06-04 15:26 | XMS_ITS | Encounter Summary ---
Author Organization [employer] Address [address] 7t [place] [address] Care Team Providers Care Job Order Clerk Name Role Phone Nupur Weir Primary Care Provider [phone] Abel Chavarria RN Unavailable [phone] Margareth Chavarria Unavailable Reason for Visit * Reason Comments Med Refill Encounter Details Date Type Department Care Team (Late st Contact Info) Description 03/11/2025 Refill [facility] 230 [place] [address] Nupur Weir ANP 230 [place] [address] Arthralgia, unspecified joint Social History Tobacco Use [...] Description 06/12/2025 9:45 AM EDT Office Visit [address] [address] 08/14/2025 9:15 AM EST Office Visit [address] [address] Nupur Weir, BATOOL [address] [place] [address] 09/28/2025 9:30 AM EST Medication Management [address] [address] Fay Leigh, MayoD [address] [place] [address] documented as of this encounter Visit Diagnoses Diagnosis Arthralgia, unspecified joint documented in this encounter Care Teams Job Order Clerk Relationship Specialty Start Date End Date Nupur Weir ANP 230 [place] [address] PCP - General Family Medicine 01/16/20 Abel Chavarria, ILENE [address] [place] [address] Registered Nurse Family Medicine 02/26/25 Margareth Chavarria 02/26/25 documented as of this encounter
--- OUTSIDE RECORDS SUMMARY | 2025-06-04 15:26 | XMS_ITS | Encounter Summary ---
Author Organization [employer] Address [address] 7t [place] [address] Care Team Providers Care Horses Or Mules Teamster Name Role Phone Nupur Weir Primary Care Provider [phone] Abel Chavarria RN Unavailable [phone] Margareth Chavarria Unavailable Encounter Details Date Type Department Care Team (Late st Contact Info) Description 04/05/[address] [facility] 230 [place] [address] Jaleel Block MD 230 [place] [address] Right-sided chest pain (Primary Dx); Hemoptysis Social [...] Description 06/12/2025 9:45 AM EDT Office Visit [address] [address] 08/14/2025 9:15 AM EST Office Visit [address] [address] Nupur Weir, BATOOL [address] [place] [address] 09/28/2025 9:30 AM EST Medication Management [address] [address] Fay Leigh, MayoD [address] [place] [address] documented as of this encounter Procedures Procedure Name Priority Date/Time Associated Diagnosis Comments CULTURE, URINE, ROUTINE Routine 04/05/2025 12:00 AM EDT Right-sided chest pain documented in this encounter Results * Culture, Urine, Routine (04/05/2025 12:00 AM EDT) Urine Urine specimen obtained by clean catch procedure / Unknown 04/05/2025 04/05/2025 Comment:[facility] - 04/06/2025 10:53 AM EDT Urine Culture No growth. Specimen Source: Urine clean catch us Generic External Data Provider LAB MICROBIOLOGY - GENERAL ORDERABLES Final Result Performing Organization Address City/State/[facility] Co de Phone Number [facility] [address] [place] [address] [phone] documented in this encounter Visit Diagnoses Diagnosis Right-sided chest pain- Primary Hemoptysis documented in this encounter Additional Health Concerns Assessment Noted Time PHQ-9 Depression Total Score: 7 03/15/20 25 3:29 PM EDT documented as of this encounter Care Teams Horses Or Mules Teamster Relationship Specialty Start Date End Date Nupur Weir ANP 230 [place] [address] PCP - General Family Medicine 01/16/20 Abel Chavarria, ILENE [address] [place] [address] Registered Nurse Family Medicine 02/26/25 Margareth Cahvarria 02/26/25 documented as of this encounter
--- OUTSIDE RECORDS SUMMARY | 2025-06-04 15:26 | XMS_ITS | Encounter Summary ---
Author Organization [employer] Address [address] [facility] [address] [address] 7t [place] [address] Care Team Providers Care Field Operations Manager Name Role Phone Nupur Weir Primary Care Provider [phone] Abel Chavarria RN Unavailable [phone] Margareth Chavarria Unavailable Encounter Details Date Type Department Care Team (Late st Contact Info) Description 04/11/[address] [facility] 230 [place] [address] Nupur Weir ANP 230 [place] [address] Social History Tobacco Use Types Packs/Day Years [...] Description 06/12/2025 9:45 AM EDT Office Visit [address] [address] 08/14/2025 9:15 AM EST Office Visit [address] [address] Nupur Weir ANP [address] [place] [address] 09/28/2025 9:30 AM EST Medication Management [address] [address] Fay Leigh, PharmD [address] [place] [address] documented as of this encounter Visit Diagnoses Not on filedocumented in this encounter Care Teams Field Operations Manager Relationship Specialty Start Date End Date Nupur Weir ANP [address] [place] [address] PCP - General Family Medicine 01/16/20 Abel Chavarria, ILENE [address] [place] [address] Registered Nurse Family Medicine 02/26/25 Margareth Chavarria 02/26/25 documented as of this encounter
--- OUTSIDE RECORDS SUMMARY | 2025-06-04 15:26 | XMS_ITS | Encounter Summary ---
Author Organization [employer] Address [address] [address] 7t [place] [address] Care Team Providers Care Hotel Guest Service Agent Name Role Phone Nupur Weir Primary Care Provider [phone] Abel Chavarria RN Unavailable [phone] Margareth Chavarria Unavailable Reason for Visit * Reason Comments Med Refill Encounter Details Date Type Department Care Team (Late st Contact Info) Description 03/22/2024 Refill [facility] MED[facility]INE 230 [place] [address] Marcella Colindres MD 230 [place] [address] Acute pyelonephritis Social History Tobacco Use Types [...] 06/12/2025 9:45 AM EDT Office Visit [address] [address] 08/14/2025 9:15 AM EST Office Visit [address] [address] Nupur Weir ANP [address] [place] [address] 09/28/2025 9:30 AM EST Medication Management [address] [address] Fay Leigh PharmD [address] [place] [address] documented as of this encounter Visit Diagnoses Diagnosis Acute pyelonephritis 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
--- OUTSIDE RECORDS SUMMARY | 2025-06-04 15:26 | XMS_ITS | Encounter Summary ---
Author Organization [employer] [facility] Address [address] [place] [address] 7t [place] [address] Care Team Providers Care Production Line Welder Name Role Phone Nupur Weir Primary Care Provider [phone] Abel Chavarria RN Unavailable [phone] Margareth Chavarria Unavailable Encounter Details Date Type Department Care Team (Latest Contact Info) Description 03/26/2022 Abstract [facility] CONVERSIONS Dental, Provider, DDS Social History [...] Description 06/12/2025 9:45 AM EDT Office Visit [facility] MEDICINE [address] [place] [address] 08/14/2025 9:15 AM EST Office Visit [facility] [address] [place] [address] Nupur Weir ANP 230 [place] [address] 09/28/2025 9:30 AM EST Medication Management [facility]INE [address] [place] [address] Fay Leigh PharmD 230 [place] [address] documented as of this encounter Visit Diagnoses Not on filedocumented in this encounter Care Teams Production Line Welder Relationship Specialty Start Date End Date Nupur Weir ANP 230 [place] [address] PCP - General Family Medicine 01/16/20 Abel Chavarria RN [address] [place] [address] Registered Nurse Family Medicine 02/26/25 Margareth Chavarria 02/26/25 documented as of this encounter
--- OUTSIDE RECORDS SUMMARY | 2025-06-04 15:26 | XMS_ITS | Patient Health Record ---
Author Organization [facility] Address [address] [place] [address] Care Team Providers Care Light Rail Train Operator Name Role Phone MICHAEL YANEZ N.P. Primary Care Provider Fidencio Langley Jr Unavailable [phone] Allergies Allergen (clinical drug ingredient) Drug/Non Drug Allergy documented on EMR Reaction Allergy Type Onset Date Status fentanyl fentaNYL Unknown Drug Allergy Active Results Component Value Reference Range Notes Complete Blood Count Auto Di ff Reviewed date:07/17/2024 08:00:34 AM Interpretation: Performing Lab:[facility], [address] [place] [phone] Notes/Report: White Blood Count 5.3 4.8-10.8 X10*3/uL [...] Panel Reviewed date:07/17/2024 08:00:27 AM Interpretation: Performing Lab:[facility], [address] [place] [phone] Notes/Report: Bilirubin Total 0.7 0.0-1.0 mg/dL Bilirubin Direct 0.3 0.0-0.5 mg/dL Aspartate Amino Transferase 21 5-31 U/L Alanine Aminotransferase 17 0-31 U/L Total Protein 6.4 6.5-8.0 g/dL Albumin Level 3.7 3.5-5.0 g/dL Alkaline Phosphatase 104 39-117 U/L Lipase Reviewed date:07/17/2024 08:00:21 AM Interpretation: Performing Lab:[facility], [address] [place] [phone] Notes/Report: Lipase 14 8-78 U/L Thyroid Stimulating Hormone Reviewed date:07/17/2024 08:00:15 AM Interpretation: Performing Lab:[facility], [address] [place] [phone] Notes/Report: Thyroid Stimulating Hormone 0.97 0.32-4.0 uIU/ [...] Problem Status W/U Status Risk Notes Problem 151316009 Colon cancer screening (Z12.11) Active confirmed Problem 69524603 Rectal bleeding (K62.5) Active confirmed Problem 52592761 Epigastric pain (R10.13) Active confirmed Problem Dysphagia (47060894) Dysphagia (R13.10) Active confirmed Problem 202439826 Elevated LFTs (R79.89) Active confirmed Problem 027097512 Gastroesophageal reflux disease without esophagitis (K21.9) Active confirmed Problem 39200197 Dysphagia, unspecified type (R13.10) Active confirmed Vital Signs Blood pressure diastolic 00 mm Hg 07/14/2024 Height 64.5 in 07/14/2024 Blood pressure systolic 00 mm Hg 07/14/2024 Weight 153 lbs 07/14/2024 BMI 25.85 kg/m2 07/14/2024 Encounters Encounter Location Date Provider Diagnosis [facility] [address] [place] [phone] 07/14/2024 Fidencio Vila Jr Abdominal cramping R10.9 [facility] [address] [place] [phone] 07/17/2024 Fidencio Vila Jr Assessments Encounter Date [...] Name:Fidencio Lori haider , 07/18/2025 11:20:00 AM, [address] [place] [address], [address], [place], [address], Insurance Providers Payer Name Payer Address Payer Phone Subscriber Number Group Number Insured Name Patient Relationship to Insured Coverage Start Date Coverage End Date [employer] [facility] [address] [place] [address] [phone] [id number] TAY TYLER Self - patient is the [...] partial hysterectomy tonsillectomy cancer in uterus x2 [phone] Laparoscopic bypass surgery 11/14 removed two cyst removed fro m right shouder and outer colon =dr. jones
--- OUTSIDE RECORDS SUMMARY | 2025-06-04 15:26 | XMS_ITS | Encounter Summary ---
Author Organization [employer] Address [facility] [address] [address] [place] [address] Care Team Providers Care Scientific Technical Writer Name Role Phone Nupur Weir Primary Care Provider [phone] Abel Chavarria RN Unavailable Margareth Chavarria Unavailable Reason for Visit * Reason Comments Med Refill Encounter Details Date Type Department Care Team ([facility] st Contact Info) Description 06/19/[address] [facility] [address] [place] [address] Nupur Weir ANP [address] [place] [address] Other specified hypothyroidism Social History Tobacco Use [...] Description 06/12/2025 9:45 AM EDT Office Visit [address] [address] 08/14/2025 9:15 AM EST Office Visit [address] [address] Nupur Weir ANP [address] [place] [address] 09/28/2025 9:30 AM EST Medication Management [address] [address] Fay Leigh, PharmD [address] [place] [id number] documented as of this encounter Visit Diagnoses Diagnosis Other specified hypothyroidism documented in this encounter Care Teams Scientific Technical Writer Relationship Specialty Start Date End Date Nupur Weir ANP [address] [place] [id number] PCP - General Family Medicine 01/16/20 Abel Chavarria, ILENE [address] [place] [address] Registered Nurse Family Medicine 02/26/25 Margareth Chavarria 02/26/25 documented as of this encounter
--- OUTSIDE RECORDS SUMMARY | 2025-06-04 15:26 | XMS_ITS | Encounter Summary ---
Author Organization [employer] Address [address] [place] [address] Street [address] [place] [address] Care Team Providers Care Solder Making Laborer Name Role Phone Nupur Weir Primary Care Provider [phone] Abel Chavarria RN Unavailable Margareth Chavarria Unavailable Reason for Visit * Reason Onset Date Comments Med Refill 12/22/2024 Encounter Details Date Type Department Care Team ([facility] st Contact Info) Description 12/22/2024 Telephone [facility] [address] [place] [address] Nupur Weir ANP [address] [place] [address] Med Refill Social History Tobacco Use Types [...] t he electric, gas, oil or water [employer] threatened to shut off services in your [...] 50 MG tablet To be sent to: [facility] - [place], [place] - [address] [place] [address] documented in this encounter Plan of Treatment Upcoming Encounters Date Type Department Care Team ([facility] st Contact Info) Description 06/12/2025 9:45 AM EDT Office Visit [facility] [address] [place] [address] 08/14/2025 9:15 AM EST Office Visit [facility] [address] [place] [address] Nupur Weir, BATOOL [address] [place] [address] 09/28/2025 9:30 AM EST Medication Management [facility] [address] [place], [place] [phone] Fay Leigh, PharmD [address] [place] [address] documented as of this encounter Visit Diagnoses Not on filedocumented in this encounter Care Teams Solder Making Laborer Relationship Specialty Start Date End Date Nupur Weir ANP [address] [place] [address] PCP - General Family Medicine 01/16/20 Abel Chavarria RN [address] [place] [address] Registered Nurse Family Medicine 02/26/25 Margareth Chavarria 02/26/25 documented as of this encounter
--- OUTSIDE RECORDS SUMMARY | 2025-06-04 15:26 | XMS_ITS | Encounter Summary ---
Author Organization [employer] Address [address] [place] [address] Street [address] [place] [address] Care Team Providers Care Wringer Machine Operator Name Role Phone Nupur Weir Primary Care Provider [phone] Abel Chavarria RN Unavailable [phone] Margareth Chavarria Unavailable Reason for Visit * Reason Comments Med Refill Encounter Details Date Type Department Care Team (Late st Contact Info) Description 12/22/2024 Refill [facility] [address] [place] [address] Nupur Weir ANP [address] [place] [address] Arthralgia, unspecified joint Social History Tobacco Use [...] t he electric, gas, oil or water [employer] threatened to shut off services in your [...] Description 06/12/2025 9:45 AM EDT Office Visit [address] [address] 08/14/2025 9:15 AM EST Office Visit [address] [address] Nupur Weir ANP [address] [place] [address] 09/28/2025 9:30 AM EST Medication Management [address] [address] Fay Leigh, MayoD [address] [place] [address] documented as of this encounter Visit Diagnoses Diagnosis Arthralgia, unspecified joint documented in this encounter Care Teams Wringer Machine Operator Relationship Specialty Start Date End Date Nupur Weir ANP [address] [place] [address] PCP - General Family Medicine 01/16/20 Abel Chavarria, ILENE [address] [place] [address] Registered Nurse Family Medicine 02/26/25 Margareth Chavarria 02/26/25 documented as of this encounter
--- OUTSIDE RECORDS SUMMARY | 2025-06-04 15:26 | XMS_ITS | Clinical Summary ---
Author Organization [employer] Address [address] [place] [address] [address] [place] [address] Care Team Providers Care Supply Technician Name Role Phone Michael Yanez Primary Care Provider [phone] Abel Chavarria RN Unavailable [phone] Margareth Chavarria Unavailable Allergies Active Allergy Reactions [...] Intertrigo Apply twice daily for 14-28d to nav area 30 g 025 Active Cholecalciferol (Vitamin [...] inhaler as directed 1 each 025 Active senna-docusate (Stimulant Laxative) 8.6-50 MG [...] MOUTH EVERY MORNING BEFORE BREAKFAST 90 tablet 025 Active Mometasone Furoate (Asmanex HFA) 100 MCG/ACT aerosol INHALE 1 PUFF EVERY TWELVE HOURS 13 g Active cyclobenzaprine (Flexeril) 10 MG tablet Take 1 tablet (10 mg) by mouth at bedtime for 10 days. 10 tablet 025 Active Ascorbic Acid (vitamin C) 500 MG tabletIndications :Iron deficiency anemia, unspecified iron deficiency anemia type TAKE 1 TABLET BY MOUTH EVERY EVENING WITH IRON supplement 90 tablet 025 Active losartan (Cozaar) 50 MG tabletIndications :Primary hypertension TAKE 1 TABLET BY MOUTH EVERY MORNING 90 tablet 025 Active gabapentin (Neurontin) 100 MG capsuleIndication [...] FOR UP TO 12 HOURS 30 patch Active ferrous sulfate (Fe Tabs) 325 (65 [...] HOUR IF NOT EFFECTIVE. 1 mL 2 025 Active meloxicam (Mobic) 15 MG tablet TAKE 1 TABLET BY MOUTH ONCE DAILY 30 tablet 025 Active fluticasone (Flonase) 50 MCG/ACT nasal spray SPRAY 2 SPRAYS IN EACH NOSTRIL ONCE DAILY 16 g 1 Active acetaminophen (Tylenol 8 Hour) 650 MG [...] Once per day. 16 g 1 025 2024 Discontinued(R eorder (will not trigger notification to Pharmacy)) meloxicam (Mobic) 15 MG tablet Take 1 tablet (15 mg) by mouth Once per day. 30 tablet 025 2024 Discontinued acetaminophen (Tylenol Extra Strength) 500 MG tablet [...] Take with food 6 tablet 025 2024 traMADol (Ultram) 50 MG tabletIndications :Long-term current use of opiate analgesic,Back pain, unspecified back location, unspecified back pain laterality, unspecified chronicity Take 1 tablet (50 mg) by mouth every 8 (eight) hours if needed for severe pain for up to 7 days. 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 UTOX unexpected. See curing supervisor. Send out MTD and BZO confirmatory. Possible [...] organization. Date Type Department Care Team Description 05/31/2025 Telephone [facility] [address] [place] [phone] Michael Yanez ANP dec recall 05/29/2025 Patient Outreach [facility] [address] [place] [address] Michael Yanez ANP Care Management (C3CM- f/u call) 05/25/2025 10:00 AM EDT Office Visit [facility] [address] [place] [phone] Cecilia Johnson DO Pain and swelling of right lower leg (Primary Dx); Subcutaneous mass; Long-term current use of opiate analgesic; Back pain, unspecified back location, unspecified back pain laterality, unspecified chronicity 05/25/2025 Results Follow-Up [address] [address] Michael Yanez ANP US VENOUS DUPLEX LE RT, US Extremity Non Vascular Complete Joint Right 05/25/2025 Orders Only [address] [address] Cecilia Johnson DO 05/25/2025 Travel 05/25/2025 Refill [facility] [address] [place] [phone] Marcella Colindres MD 05/25/2025 Refill [facility] [address] [place] [address] Jaleel Block MD 05/23/2025 Patient Outreach [address] [phone] Michael Yanez ANP Care Coordination (C3/W KHUSHBU Edwards- follow up call) 05/23/[address] [address] Michael Yanez ANP Migraine with aura and without status migrainosus, not intractable 05/15/2025 9:15 AM EDT Office Visit [address] [address] Michael Yanez ANP Cat bite, subsequent encounter (Primary Dx); Pure hypercholesterolemi a; Primary hypertension; Hypothyroidism, unspecified type 05/15/2025 Patient Outreach [address] [phone] Michael Yanez ANP Care Management (C3CM- f/u call) 05/15/2025 Travel 05/14/[address] [phone] Michael Yanez ANP chart prep 05/14/[address] [phone] Julianne Anne RN AB Status Check 05/14/2025 Patient Outreach [address] [phone] Michael Yanez ANP 05/13/2025 Orders Only GENERIC EXTERNAL DATA DEPARTMENT Provider, Generic External Data 05/11/2025 Patient Outreach [address] [address] Michael Yanez ANP 05/09/2025 5:40 PM EDT Office Visit [facility] [address] [address] Michael Yanez ANP Cat bite, subsequent encounter (Primary Dx); Puncture wound of calf, right, subsequent encounter 05/09/2025 Travel 05/08/2025 9:45 AM EDT Office Visit [address] [address] Anushka Gunter, MACHINE UMBRELLA TIPPER Lumbar spondylosis (Primary Dx); Long-term current use of opiate analgesic 05/08/2025 Refill [facility] [address] [place] [address] Kassy Ramsey RN Long-term current use of opiate analgesic; Back pain, unspecified back location, unspecified back pain laterality, unspecified chronicity 05/08/2025 Travel 05/07/2025 Patient Outreach [address] [address] Michael Yanez ANP Care Coordination ([facility]/KHUSHBU Jurado- Appt reminder/PT-1 update) 05/06/2025 Results [facility] [address] [address] Jaleel Block MD CTA Chest PE Protocal 05/03/2025 Patient Outreach [address] [address] Michael Yanez ANP Care Coordination ([facility]/KHUSHBU Jurado-Follow up/PT-1) 05/03/2025 Patient Outreach [address] [address] Michael Yanez ANP Care Management (C3- f/u call) 05/01/2025 Orders Only [facility] [address] [address] Jaleel Block MD 04/25/2025 Patient Outreach [address] [address] Michael Yanez ANP 04/23/2025 Patient Outreach [facility] [address] [place] [address] Michael Yanez ANP Care Management (C3- f/u call) 04/18/2025 Refill [facility] [address] [place] [address] Michael Yanez ANP Long-term current use of opiate analgesic; Back pain, unspecified back location, unspecified back pain laterality, unspecified chronicity 04/17/2025 10:30 AM EDT Clinical Support [facility] [address] [place] [address] Kassy Ramsey, ILENE Long-term current use of opiate analgesic (Primary Dx) 04/17/2025 Refill [facility] [address] [place] [address] Michael Yanez ANP Iron deficiency anemia, unspecified iron deficiency anemia type 04/17/2025 Telephone [facility] [address] [place] [address] Kassy Ramsey RN 04/17/2025 Travel 04/16/2025 Refill [facility] [address] [place] [phone] Michael Yanez ANP Iron deficiency anemia, unspecified iron deficiency anemia type 04/11/2025 4:00 PM EDT Office Visit [facility] [address] [place] [address] Michael Yanez ANP Primary hypertension (Primary Dx); RUQ pain 04/11/2025 Orders Only GENERIC EXTERNAL DATA DEPARTMENT Provider, Generic External Data 04/11/2025 Travel 04/10/2025 9:45 AM EDT Office Visit [facility] [address] [place] [address] Anushka Gunter, KYLER Lumbar spondylosis (Primary Dx); Long-term current use of opiate analgesic 04/10/2025 Patient Outreach [facility] [address] [place] [phone] Michael Yanez ANP Care Coordination (C3/W KHUSHBU Edwards- Appt reminder) 04/10/2025 Telephone [facility] [address] [place] [address] Kassy Ramsey, RN 04/10/[address] [address] Jaleel Block MD CTA Chest order 04/10/[address] [address] Michael Yanez ANP CHART PREP 04/10/2025 Telephone [facility] [address] [place] [address] Kassy Ramsey, ILENE 04/10/2025 Travel 04/10/[address] [address] Michael Yanez ANP ER Follow-up 04/09/2025 Patient Outreach [address] [address] Michael Yanez ANP Care Management (C3CM- f/u call) 04/09/2025 Patient Outreach [address] [address] Michael Yanez ANP 04/06/2025 Patient Outreach [address] [address] Michael Yanez ANP Pre-visit Planning (SDOH screening completed on 02/26/25 ) 04/05/2025 Patient Outreach [address] [address] Michael Yanez ANP 04/05/2025 Telephone [facility] [address] [address] Jaleel Block MD 04/05/2025 Orders Only [facility] [address] [address] Jaleel Block MD Right-sided chest pain (Primary Dx); Hemoptysis 04/05/2025 Orders Only [facility] External Provider, [facility] 04/04/2025 9:40 AM EDT Office Visit [facility] [address] [address] Jaleel Block MD Right-sided chest pain (Primary Dx); Hemoptysis 04/04/2025 Telephone [facility] [address] [place] [address] Jaleel Block MD 04/04/2025 Orders Only [facility] [address] [place] [address] Jaleel Block MD 04/04/2025 Telephone [facility] [address] [place] [address] Jaleel Block MD 04/04/2025 Travel 03/28/2025 Patient Outreach [address] [address] Michael Yanez ANP Care Coordination ([facility]/KHUSHBU Jurado- PT-1 Coordination) 03/27/2025 Patient Outreach [address] [address] Michael Yanez ANP Care Management (C3- f/u call) 03/22/2025 Orders Only GENERIC EXTERNAL DATA DEPARTMENT Provider, Generic External Data 03/22/2025 Travel 03/22/[address] [address] Michael Yanez ANP Long-term current use of opiate analgesic (Primary Dx); Back pain, unspecified back location, unspecified back pain laterality, unspecified chronicity 03/21/2025 Patient Outreach [address] [address] Michael Yanez ANP Care Coordination ([facility]/KHUSHBU Jurado-Appt reminder-[facility]) 03/19/[address] [address] Michael Yanez ANP Arthralgia, unspecified joint 03/16/2025 Patient Outreach [address] [address] Michael Yanez ANP Care Coordination ([facility]/MONTY Chavarria-KHUSHBU- Booked PT-1 for upcoming appt to [facility]) 03/15/2025 Patient Outreach [address] [address] Michael Yanez ANP Care Management (C3- initial assessment/ enrollment/) 03/15/2025 Telephone [facility] [address] [place] [phone] Berkley Hinkle RN 03/15/2025 Plan of Care Documentation [address] [address] 03/14/[address] [address] Michael Yanez ANP Iron deficiency anemia, unspecified iron deficiency anemia type; Primary hypertension 03/13/2025 Patient Outreach [facility] [address] [place] [address] Michael Yanez ANP Care Coordination ([facility]/CHW KHUSHBU Edwards- [facility] Appt Reminder) 03/12/2025 2:00 PM EDT Office Visit [facility] [address] [place] [address] Marcella Colindres MD Acute bursitis of left shoulder (Primary Dx) 03/12/2025 Travel 03/12/2025 Patient Outreach [address] [phone] Michael Yanez ANP 03/11/[address] [address] Michael Yanez ANP Arthralgia, unspecified joint 03/10/2025 Orders Only GENERIC EXTERNAL DATA DEPARTMENT Provider, Generic External Data from Last 3 Months Immunizations Immunization Administration [...] Visit [facility] [address] [place] [phone] 08/14/2025 9:15 AM EST Office Visit [address] [address] Michael Yanez, ANP [address] [place] [address] 09/28/2025 9:30 AM EST Medication Management [facility] [address] [place] [address] Fay Leigh, PharmD [address] [place] [address] Health Maintenance Due Date Last Done Comments [...] Procedure Name Priority Date/Time Associated Diagnosis Comments US EXTREMITY NON VASCULAR COMPLETE JOINT RIGHT Routine 05/25/2025 4:17 PM EDT US VENOUS DUPLEX LE RT Routine 4:01 PM EDT SED RATE BY MODIFIED WESTERGREN Routine 05/13/2025 [...] VIEWS Routine 03/10/2025 11:0 5 AM EDT BI MAMMOGRAM SCREENING TOMOSYNTHESIS BILATERAL Routine [...] Recently Relevant to Health Maintenance Results * US Extremity Non Vascular Complete Joint Right (05/25/2025 4:17 PM EDT) Anatomical Region Laterality Modality Ultrasound 05/25/2025 4:17 PM EDT Narrative 05/25/2025 5:12 PM EDT [address] [address] Ultrasound Report Signed Patient: Laura Gonzalez MR#: [id number] : 1965 Acct:[id number] Age/Sex: 60 / F ADM Date: 05/25/25 Loc: HO.US Attending Dr: Cecilia Johnson DO Ordering Physician: Cecilia Johnson DO Date of Service: 05/25/25 Procedure(s): US Extremity Nonvas Comp JT RT Accession Number(s): [id number] cc: Cecilia Johnson DO; MICHAEL YANEZ NP Reason for Exam: right leg, s/p cat bite, r/o abscess Examination:US Extremity Nonvas Comp Jt Rt HISTORY: right leg, s/p cat bite, r/o abscess TECHNIQUE: Grayscale and color Doppler imaging was performed in the right lower leg COMPARISON: None FINDINGS: No mass or loculated fluid collection is identified. In the region where the patient complains of a lump, there is a patent 2 mm parenchymal stain in the subcutaneous soft tissues. US/US Extremity Nonvas Comp JT RT IMPRESSION: No sign of an abscess on ultrasound. Electronically signed by: Kleber Garg MD 05/25/2025 05:09 PM EDT Dictated By: Kleber Garg MD Signed By: <Electronically signed by Kleber Garg MD in OV> 05/25/25 1709 DD/ 1617 TD/TT: 05/25/25 1620 Document Control Associate: Procedure Note Donotuseinterpreter, Image - 05/25/[address] [address] Ultrasound Report Signed Patient: Paz GonzalezR#: [id number] : 1965Acct:[id number] Age/Sex: 60 / FADM Date: 05/25/25 Loc: .US Attending Dr: Cecilia oJhnson DO Ordering Physician: Cecilia Johnson DO Date of Service: 05/25/25 Procedure(s): US Extremity Nonvas Comp JT RT Accession Number(s): [id number] cc: Cecilia Johnson DO; MICHAEL YANEZ NP Reason for Exam: right leg, s/p cat bite, r/o abscess Examination:US Extremity Nonvas Comp Jt Rt HISTORY: right leg, s/p cat bite, r/o abscess TECHNIQUE: Grayscale and color Doppler imaging was performed in the right lower leg COMPARISON: None FINDINGS: No mass or loculated fluid collection is identified. In the region where the patient complains of a lump, there is a patent 2 mm parenchymal stain in the subcutaneous soft tissues. US/US Extremity Nonvas Comp JT RT IMPRESSION: No sign of an abscess on ultrasound. Electronically signed by: Kleber Garg MD 05/25/2025 05:09 PM EDT Dictated By: Kleber Garg MD Signed By: <Electronically signed by Kleber Garg MD in OV> 05/25/25 1709 DD/ 1617 TD/TT: 05/25/25 1620 Document Control Associate: us Cecilia Johnson DO IMG US PROCEDURES Final Resu lt * US VENOUS DUPLEX LE RT (05/25/2025 4:01 PM EDT) Anatomical Region Laterality Modality Abdomen Ultrasound 05/25/2025 4:01 PM EDT Narrative 05/25/2025 4:44 PM EDT [address] [address] Ultrasound Report Signed Patient: Laura Gonzalez MR#: [id number] : 1965 Acct:[id number] Age/Sex: 60 / F ADM Date: 05/25/25 Loc: BUD.US Attending Dr: Cecilia Johnson DO Ordering Physician: Cecilia Johnson DO Date of Service: 05/25/25 Procedure(s): US venous duplex LE RT Accession Number(s): [id number] cc: Cecilia Johnson DO; MICHAEL YANEZ NP Reason for Exam: pain and swelling, r/o dvt EXAMINATION: US TRIPLEX LOWER EXTREMITY, RIGHT CLINICAL INFORMATION: Right lower extremity edema. COMPARISON: None available. TECHNIQUE: Color-flow triplex imaging with spectral analysis and compression Doppler were performed on the right lower extremity. FINDINGS: Respiratory variation, normal compression and augmented flow are noted throughout the right lower extremity. The visualized common femoral vein, superficial femoral vein, profunda femoral vein, popliteal vein and midcalf peroneal and posterior tibial venous segments show no evidence of deep venous thrombosis. There is no Fox's cyst. US/US venous duplex LE RT IMPRESSION: No evidence of deep venous thrombosis involving the right lower extremity. Electronically signed by: Gallo Schuster MD 05/25/2025 04:42 PM EDT Dictated By: Gallo Schuster MD Signed By: <Electronically signed by Gallo Schuster MD in OV> 05/25/25 1642 DD/ 1601 TD/TT: 05/25/25 1615 Document Control Associate: Procedure Note Donotuseinterpreter, Image - 05/25/2025 [place] [address] Ultrasound Report Signed Patient: Aleksandar Gonzalez#: [id number] : 1965Acct:[id number] Age/Sex: 60 / FADM Date: 05/25/25 Loc: .US Attending Dr: Cecilia Johnson DO Ordering Physician: Cecilia Johnson DO Date of Service: 05/25/25 Procedure(s): US venous duplex LE RT Accession Number(s): [id number] cc: Cecilia Johnson DO; MICHAEL YANEZ NP Reason for Exam: pain and swelling, r/o dvt EXAMINATION: US TRIPLEX LOWER EXTREMITY, RIGHT CLINICAL INFORMATION: Right lower extremity edema. COMPARISON: None available. TECHNIQUE: Color-flow triplex imaging with spectral analysis and compression Doppler were performed on the right lower extremity. FINDINGS: Respiratory variation, normal compression and augmented flow are noted throughout the right lower extremity. The visualized common femoral vein, superficial femoral vein, profunda femoral vein, popliteal vein and midcalf peroneal and posterior tibial venous segments show no evidence of deep venous thrombosis. There is no Fox's cyst. US/US venous duplex LE RT IMPRESSION: No evidence of deep venous thrombosis involving the right lower extremity. Electronically signed by: Gallo Schuster MD 05/25/2025 04:42 PM EDT RP Dictated By: Gallo Schuster MD Signed By: <Electronically signed by Gallo Schuster MD in OV> 05/25/25 1642 DD/ 1601 TD/TT: 05/25/25 1615 Document Control Associate: us Cecilia Johnson DO IMG US PROCEDURES Final Resu lt * Hold Red (05/13/2025 9:41 AM EDT) [facility] See Note [facility] Comment:Specimen held untest ed for 24 hours; Call to requestChemistry testing. 05/13/2025 9:41 AM EDT 05/13/2025 9:46 AM EDT us Generic External Data Provider LAB BLOOD ORDERAB LES Final Result [facility] [address] [place] [address] [phone] * (ABNORMAL) CBC auto differential (05/13/2025 9:41 AM EDT) Only the most recent of3 resultswithin the time period is included. [facility] White Blood Count 4.4(L) 4.8 - 10.8 X10*3/uL [facility] Red Blood Count 4.76 4.20 - 5.50 X10*6/uL [facility] Hemoglobin 13.8 12.0 - 16.0 g/dl [facility] Hematocrit 42.3 37.0 - 47.0 % [facility] Mean Corpuscular Volume 88.9 80.0 - 98.0 fL [facility] Mean Corpuscular Hemoglobin 29.0 27.0 - 33.0 pg [facility] Mean Corpuscular HGB Conc 32.6 31.0 - 35.0 g/dl [facility] Red Cell Distribution Width 13.8 11.0 - 16.0 % [facility] Platelet Count 272 160 - 400 X10*3/uL [facility] Mean Platelet Volume 8.1(L) 9.4 - 12.3 fL [facility] Neutrophils Percent Auto 42.8(L) 45 - 73 % [facility] Imm Gran Pct Auto 0.0 0.0 - 0.4 % [facility] Lymphocytes Percent Auto 38.5 20 - 40 % [facility] Monocytes Percent Auto 8.1 2 - 11 % [facility] Eosinophils Percent Auto 9.7(H) 0 - 4 % [facility] Basophils Percent Auto 0.9 0 - 2 % [facility] NRBC Pct Auto 0.0 0.0 - 0.2 /100WBC [facility] Neutrophils Absolute Auto 1.9(L) 2.0 - 8.3 x10*3/uL [facility] Imm Gran Abs Auto 0.00 0.00 - 0.03 X10*3/uL [facility] Lymphocytes Absolute Auto 1.7 1.2 - 4.9 X10*3/uL [facility] Monocytes Absolute Auto 0.4 0.1 - 1.2 X10*3/uL [facility] Eosinophils Absolute Auto 0.4 0.0 - 0.4 X10*3/uL [facility] Basophils Absolute Auto 0.0 0.0 - 0.2 X10*3/uL [facility] NRBC Abs Auto 0.000 0.0 - 0.012 X10*3/uL [facility] 05/13/2025 9:41 AM EDT 05/13/2025 9:45 AM EDT Generic External Data Provider LAB BLOOD ORDERAB LES Final Result Performing Organization Address [facility] Co de Phone Number [facility] [address] [place] [address] [phone] * Sed Rate by Modified Westergren (05/13/2025 9:41 AM EDT) Pathologist [facility] Erythrocyte Sedimentation Rate 11 0 - 20 MM/HR [facility] Comment:Patients with polycy themia and many hemoglobin abnormalitiesmay have depressed sed rates whereas patients with anemiamay have elevated sed rates. 05/13/2025 9:41 AM EDT 05/13/2025 9:45 AM EDT Generic External Data Provider LAB BLOOD ORDERAB LES Final Result Performing Organization Address [facility] Co de Phone Number [facility] [address] [place] [address] [phone] * C-reactive Protein (05/13/2025 9:41 AM EDT) [facility] C Reactive Protein 0.27 < or = 0.50 mg/dL [facility] 05/13/2025 9:41 AM EDT 05/13/2025 9:45 AM EDT Generic External Data Provider LAB BLOOD ORDERAB LES Final Result Performing Organization Address [facility] Co de Phone Number [facility] [address] [place] [address] [phone] * (ABNORMAL) Comprehensive Metabolic Panel (05/13/2025 9:41 AM EDT) Only the most recent of2 resultswithin the time period is included. [facility] Sodium 143 135 - 145 mmol/L [facility] Potassium 4.6 3.3 - 5.1 mmol/L [facility] Chloride 111(H) 96 - 108 mmol/L [facility] Carbon Dioxide 25 22 - 29 mmol/L [facility] Anion Gap 12 12 - 20 [facility] Urea Nitrogen (BUN) 9 9 - 16 mg/dL [facility] Creatinine, Serum 0.86 0.5 - 1.4 mg/dL [facility] Creatinine Clr Calc Pharmacy 63.3 [facility] Comment:Provided height and weight: 165.1 cm,66.4 kg.eGFR (calculated from the MDRD study equation) and eCrCl(calculated from the Cockcroft-Gault equation) are based ondifferent parameters and may not yield comparable results.If eCrCl result is absurd, please check patient'sheight/weight. Estimated Glomerular Filt Rate >60 [facility] Comment:Chronic Kidney Disea se: Estimated GFR < 60 mL/min/[id number] Kidney Disease: Estimated GFR < 15 mL/min/1.73m2 Glucose 109 60 - 115 mg/dL [facility] Calcium 9.4 8.4 - 10.2 mg/dL [facility] Bilirubin, Total 0.4 0.0 - 1.0 mg/dL [facility] Aspartate Amino Transferase 23 5 - 31 U/L [facility] Alanine Aminotransferase 19 0 - 31 U/L [facility] Total Protein 7.1 6.5 - 8.0 g/dL [facility] Albumin Level 4.2 3.5 - 5.0 g/dL [facility] Alkaline Phosphatase 99 39 - 117 U/L [facility] 05/13/2025 9:41 AM EDT 05/13/2025 9:45 AM EDT us Generic External Data Provider LAB BLOOD ORDERAB LES Final Result [facility] [address] [place] [address] [phone] * POCT MERY-14 Urine Drug Screen [...] - 05/08/2025 10:33 AM EDT .UTOX cup Lot#[id number] Exp. 06/05/26 Internal Pass Control Michael RENAE POINT OF CARE TEST ENTER/EDIT OR DERABLES Final Result * CTA Chest PE Protocal (05/01/2025 2:33 PM EDT) Anatomical Region Laterality Modality Body, Chest Computed Tomogra phy 05/01/2025 2:33 PM EDT Narrative 05/01/2025 3:11 PM EDT [place] [address] CT Scan Report Signed Patient: Laura Gonzalez MR#: [id number] : 1965 Acct:[id number] Age/Sex: 60 / F ADM Date: 05/01/25 Loc: HO.CT Attending Dr: Jaleel Block MD Ordering Physician: JALEEL BLOCK MD Date of Service: 05/01/25 Procedure(s): CT angio chest PE protocol Accession Number(s): [id number] cc: JALEEL BLOCK MD; MICHAEL YANEZ NP Report Number: [id number]: Total DLP = 139.00 mGy-cm Reason for [...] 05/01/25 1508 DD/ 1433 TD/TT: 05/01/25 1452 Document Control Associate: Procedure Note Donotuseinterpreter, Image - 05/01/[address] [address] [address] Scan Report Signed Patient: Aleksandar Gonzalez#: [id number] : 1965Acct:[id number] Age/Sex: 60 / FADM Date: 05/01/25 Loc: HO.CT Attending Dr: Jlaeel Block MD Ordering Physician: JALEEL BLOCK MD Date of Service: 05/01/25 Procedure(s): CT angio chest PE protocol Accession Number(s): [id number] cc: JALEEL BLOCK MD; MICHAEL YANEZ NP Report Number: [id number]: Total DLP = 139.00 mGy-cm Reason for [...] 05/01/25 1508 DD/ 1433 TD/TT: 05/01/25 1452 Document Control Associate: Jaleel Block MD IMG CT PROCEDURES Final Result * Hematoxylin and Eosin Stain (04/11/2025 12:01 PM EDT) 04/11/2025 12:0 1 PM EDT 04/11/2025 1:46 PM EDT [facility] - 04/12/2025 2:08 PM EDT ----- ------- Name: Laura Gonzalez Age/Sex: 60/F : 1965 Unit#: [id number] Attend Dr: Tung Potter MD Re04/11/25 Status: [facility] Location: [facility] Disch: ----- ------- SPEC : [id number] RECD: 04/11/25 STATUS: CIELO PRICE NUM: [id number] ANGELA: 04/11/25-1201 [facility] DR: Tung Potter MD ENTERED: 04/11/25 [...] developed and their performance characteristics determined by [facility]. They have not been cleared or approved by the U.S. Food and Drug Administration (FDA). However, the FDA has determined that such clearance or approval is not necessary. This laboratory is CONTINUED ON NEXT PAGE ----- ------- Name: Laura Gonzalez Age/Sex: 60/F : 1965 Unit#: [id number] Attend Dr: Tung Potter MD Re04/11/25 Status: [facility] Location: [facility] Disch: ----- ------- SPEC : [id number] RECD: 04/11/25-5586 STATUS: CIELO PRICE NUM: [id number] ANGELA: 04/11/25-[address]: Tung Potter MD ENTERED: 04/11/25-7863 SP TYPE: Surgical OTHR DR: MICHAEL YANEZ NP ORDERED: HE Stain/6, Gross Micro L4/2, IHC, Special st. 2/2, H. pylori, AB/PAS/2 IHC S/NG Disclaimer (Continued) certified under the Clinical Laboratory Improvement Amendments of 1988 (CLIA) as qualified to perform high complexity clinical laboratory testing. Copies To: Tung Potter MD [facility] [address] [place] [phone] MICHAEL YANEZ NP [address] [place] [address] ----- ------- Signed (signature on file) Yasmeen Carrasco MD 04/12/25 5302 ----- ------- END OF REPORT us Generic External Data Provider LAB BLOOD ORDERAB LES Final Result [facility] [address] [place] [address] [phone] * Drug Monitoring, Benzodiazepines, Quantitative, Urine (04/10/2025 10:00 AM EDT) Nordiazepam, GCMS Urine NEGATIVE [facility] Comment:CUTOFF: 50 ng/mL Oxazepam, GCMS Urine NEGATIVE [facility] Comment:CUTOFF: 50 ng/mL Lorazepam GCMS Urine NEGATIVE [facility] Comment:CUTOFF: 50 ng/mL Alprazolam, GCMS Urine NEGATIVE [facility] Comment:CUTOFF: 25 ng/mL Alphahydroxytriazolam, GCMS Ur NEGATIVE [facility] Comment:CUTOFF: 50 ng/mL Temazepam, GCMS Urine NEGATIVE [facility] Comment:CUTOFF: 50 ng/mL Alphahydroxymidazolam,GC MS Ur NEGATIVE [facility] Comment:CUTOFF: 50 ng/mL Aminoclonazepam, GCMS Urine NEGATIVE [facility] Comment:CUTOFF: 25 ng/mL Flurazepam Metabolite,GCMS Ur NEGATIVE [facility] Comment:CUTOFF: 50 ng/mL Benzodiazepines Comments SEE NOTE [facility] Comment:This drug testing is for medical treatment only. Analysiswas performed as non-forensic testing and these resultsshould be used only by healthcare providers to renderdiagnosis or treatment, or to monitor progress of medicalconditions.LDT Notes:Confirmation tests were developed and their analyticalperformance characteristics have been determined by [employer]. It has not been cleared or approved by the FDA.This assay has been validated pursuant to the CLIAregulations and is used for clinical purposes.Healthcare Providers needing Interpretation assistance,please contact us at [phone] ) M-F,8am to 10pm ESTPERFORMING SITE:[facility] [email or web address] [facility], [address] [place] [phone] Clinching Machine Operator: NILSA MATTHEWS MD, CLIA:[id number] Urine (Urine, Random) 04/10/2025 10:00 AM EDT 04/10/2025 1:08 PM EDT us [facility] LAB URINE ORDERABLES Final Resul t [facility] [address] [place] [address] [phone] * Drug Monitoring, Methadone Metabolite, Screen, Urine (04/10/2025 10:00 AM EDT) Methadone Screen, Urine Not Detected Not Detect ng/mL [facility] Comment:Methadone cut-off is 300 ng/mL.Positive results are unconfirmed and should not be used fornon-medical purposes. Urine (Urine, Random) 04/10/2025 10:00 AM EDT 04/10/2025 1:08 PM EDT us Michael Yanez ANP LAB URINE ORDERABLES Final Resul t [facility] [address] [place] [phone] * US Abdomen Limited (04/05/2025 12:53 PM EDT) Anatomical Region Laterality Modality Abdomen Ultrasound 04/05/2025 12:5 3 PM EDT Narrative 04/05/2025 1:28 PM EDT [address] [address] Ultrasound Report Signed Patient: Laura Gonzalez MR#: [id number] : 1965 Acct:[id number] Age/Sex: 60 / F ADM Date: 04/05/25 Loc: .ED Attending Dr: Ordering Physician: Alisha Saldivar PA-C Date of Service: 04/05/25 Procedure(s): US abdomen limited Accession Number(s): [id number] cc: Alisha Saldivar PA-C; MICHAEL YANEZ NP [...] 04/05/25 1325 DD/ 1253 TD/TT: 04/05/25 1302 Document Control Associate: Procedure Note Donotuseinterpreter, Image - 04/05/2025 [place] [address] Ultrasound Report Signed Patient: Aleksandar Gonzalez#: [id number] : 1965Acct:[id number] Age/Sex: 60 / FADM Date: 04/05/25 Loc: .ED Attending Dr: Ordering Physician: Alisha Saldivar PA-C Date of Service: 04/05/25 Procedure(s): US abdomen limited Accession Number(s): [id number] cc: Alisha Saldivar PA-C; MICHAEL YANEZ NP [...] 04/05/25 1325 DD/ 1253 TD/TT: 04/05/25 1302 Document Control Associate: us [facility] External Provider IMG US PROCEDURES Final Result * (ABNORMAL) Urinalysis, Complete, with Reflex to Culture (04/05/2025 10:08 AM EDT) Color Urine Yellow [facility] Appearance Urine Turbid [facility] PH 7.0 5.0 - 9.0 [facility] Glucose Urine UA Negative Negative mg/dL [facility] Urine Blood Negative Negative [facility] Specific [place] - Urine 1.015 1.005 - 1.025 [facility] Urine Protein Negative Neg-Trace mg/dL [facility] Urine Ketones Negative Negative mg/dL [facility] Nitrite Urine Negative Negative [facility] Leukocyte Esterase Urine Moderate (2+)(A) Negative [facility] RBC Urine 0-2 0 - 2 /HPF [facility] Urine WBC 6-10(A) 0 - 5 /HPF [facility] Urine Squamous Epithelial Cell 0-2 0 - 2 /HPF [facility] Urine Bacteria None Seen None Seen [facility] Hyaline Casts, Urine 0-2 0 - 2 /LPF [facility] 04/05/2025 10:0 8 AM EDT 04/05/2025 10:13 AM EDT Narrative [facility] - 04/05/2025 10:22 AM EDT Urine, Clean Catch Generic External Data Provider LAB URINE ORDERAB LES Final Result Performing Organization Address [facility] de Phone Number [facility] [address] [place] [phone] * D Dimer High Sensitivity (04/05/2025 10:05 AM EDT) Only the most recent of2 resultswithin the time period is included. D Dimer High Sensitivity 164 NG/ML [facility] Comment:D-DIMER HS REFERENCE RANGENote: Our [...] ORDERAB LES Final Result Performing Organization Address [facility] de Phone Number [facility] [address] [place] [phone] * High Sensitivity Troponin I (04/05/2025 10:05 AM EDT) Only the most recent of2 resultswithin the time period is included. Pathologist [facility] TROPONIN I HIGH SENSITIVITY <2.7 <3.5 - 17.0 ng/L [facility] Comment:The Brar high sens itivity Troponin-I results should beused in conjunction with other diagnostic information suchas ECG, clinical observations and information, and patientsymptoms to aid in the diagnosis of MO. 04/05/2025 10:0 5 AM EDT 04/05/2025 10:08 AM EDT Generic External Data Provider LAB BLOOD ORDERAB LES Final Result Performing Organization Address [facility] de Phone Number [facility] [address] [place] [phone] * Lipase (04/05/2025 10:05 AM EDT) Only the most recent of2 resultswithin the time period is included. Lipase 19 8 - 78 U/L [facility] 04/05/2025 10:0 5 AM EDT 04/05/2025 10:08 AM EDT Generic External Data Provider LAB BLOOD ORDERAB LES Final Result Performing Organization Address [facility] de Phone Number [facility] [address] [place] [phone] * CT Abdomen Pelvis w/o Contrast (04/05/2025 9:45 AM EDT) Anatomical Region Laterality Modality Body, Pelvis, Abdomen Computed T omography 04/05/2025 9:45 AM EDT Narrative 04/05/2025 10:20 AM EDT [address] [address] [address] Scan Report Signed Patient: Laura Gonzalez MR#: [id number] : 1965 Acct:[id number] Age/Sex: 60 / F ADM Date: 04/05/25 Loc: .ED Attending Dr: Ordering Physician: Alisha Saldivar PA-C Date of Service: 04/05/25 Procedure(s): CT abdomen pelvis wo IV con Accession Number(s): [id number] cc: Alisha Saldivar PA-C; MICHAEL YANEZ NP Report Number: [id number]: Total DLP = 431.00 mGy-cm EXAMINATION: CT [...] 04/05/25 1018 DD/ 0945 TD/TT: 04/05/25 1000 Document Control Associate: Procedure Note Donotuseinterpreter, Image - 04/05/[address] [place] [address] [address] Scan Report Signed Patient: Aleksandar Gonzalez#: [id number] : 1965Acct:[id number] Age/Sex: 60 / FADM Date: 04/05/25 Loc: .ED Attending Dr: Ordering Physician: Alisha Saldivar PA-C Date of Service: 04/05/25 Procedure(s): CT abdomen pelvis wo IV con Accession Number(s): [id number] cc: Alisha Saldivar PA-C; MICHAEL YANEZ NP Report Number: [id number]: Total DLP = 431.00 mGy-cm EXAMINATION: CT [...] 04/05/25 1018 DD/ 0945 TD/TT: 04/05/25 1000 Document Control Associate: [facility] External Provider IMG CT PROCEDURES Final Result * XR Chest 2 Views (04/05/2025 8:44 AM EDT) Only the most recent of3 resultswithin the time period is included. Anatomical Region Laterality Modality Chest Radiographic Jennifer ging 04/05/2025 8:44 AM EDT Narrative 04/05/2025 9:59 AM EDT [address] [address] XRay Report Signed Patient: Laura Gonzalez MR#: [id number] : 1965 Acct:[id number] Age/Sex: 60 / F ADM Date: 04/05/25 Loc: HO.ED Attending Dr: Ordering Physician: Alisha Saldivar PA-C Date of Service: 04/05/25 Procedure(s): XR chest 2V Accession Number(s): [id number] cc: Alisha Saldivar PA-C; MICHAEL YANEZ NP [...] Gallo Schuster MD 04/05/2025 09:56 AM EDT Dictated By: Gallo Schuster MD Signed By: <Electronically signed by Gallo Schuster MD in OV> 04/05/25 0956 DD/ 0844 TD/TT: 04/05/25 09 Document Control Associate: Procedure Note Donotuseinterpreter, Image - 04/05/[address] [address] XRay Report Signed Patient: Paz GonzalezR#: [id number] : 1965Acct:[id number] Age/Sex: 60 / FADM Date: 04/05/25 Loc: HO.ED Attending Dr: Ordering Physician: Alisha Saldivar PA-C Date of Service: 04/05/25 Procedure(s): XR chest 2V Accession Number(s): [id number] cc: Alisha Saldivar PA-C; MICHAEL YANEZ NP [...] Gallo Schuster MD 04/05/2025 09:56 AM EDT Dictated By: Gallo Schuster MD Signed By: <Electronically signed by Gallo Schuster MD in OV> 04/05/25 0956 DD/ 0844 TD/TT: 04/05/25 0942 Document Control Associate: [facility] External Provider IMG XR PROCEDURES Final Result * Culture, Urine, Routine (04/05/2025 12:00 AM EDT) Only the most recent of2 resultswithin the time period is included. Urine Urine specimen obtained by clean catch procedure / Unknown 04/05/2025 04/05/2025 Comment:UACC Narrative [facility] - 04/06/2025 10:53 AM EDT Urine Culture No growth. Specimen Source: Urine clean catch Generic External Data Provider LAB MICROBIOLOGY - GENERAL ORDERABLES Final Result [facility] [address] [place] [phone] [phone] * Creatinine, Serum (04/04/2025 2:21 PM EDT) Creatinine, Serum 0.78 0.5 - 1.4 mg/dL [facility] Estimated Glomerular Filt Rate >60 [facility] Comment:Chronic Kidney Disea se: Estimated GFR < 60 mL/min/1.89j7Nzprfa Kidney Disease: Estimated GFR < 15 mL/min/1.73m2 Blood Venous blood specimen / Unknown 04/04/2025 2:21 PM EDT 04/04/2025 2:21 PM EDT us Jaleel Block MD LAB BLOOD ORDERABLES Final Resul t Performing Organization Address [facility]/ZIP Co de Phone Number [facility] [address] [place] [phone] * BUN (Blood Urea Nitrogen) (04/04/2025 2:21 PM EDT) Urea Nitrogen (BUN) 11 9 - 16 mg/dL [facility] Blood Venous blood specimen / Unknown 04/04/2025 2:21 PM EDT 04/04/2025 2:21 PM EDT us Jaleel Block MD LAB BLOOD ORDERABLES Final Resul t Performing Organization Address [facility] de Phone Number [facility] [address] [place] [phone] * (ABNORMAL) Comprehensive Metabolic Panel, Fasting (03/10/2025 11:57 AM EDT) Sodium 139 135 - 145 mmol/L [facility] Potassium 4.0 3.3 - 5.1 mmol/L [facility] Chloride 107 96 - 108 mmol/L [facility] Carbon Dioxide 26 22 - 29 mmol/L [facility] Anion Gap 10(L) 12 - 20 [facility] Urea Nitrogen (BUN) 11 9 - 16 mg/dL [facility] Creatinine, Serum 0.77 0.5 - 1.4 mg/dL [facility] Creatinine Clr Calc Pharmacy 73.6 [facility] Comment:Provided height and weight: 167.64 cm,67.7 kg.eGFR (calculated from the MDRD study equation) and eCrCl(calculated from the Cockcroft-Gault equation) are based ondifferent parameters and may not yield comparable results.If eCrCl result is absurd, please check patient'sheight/weight. Estimated Glomerular Filt Rate >60 [facility] Comment:Chronic Kidney Disea se: Estimated GFR < 60 mL/min/1.32n9Wvjstg Kidney Disease: Estimated GFR < 15 mL/min/1.73m2 Glucose Fasting 95 60 - 99 mg/dL [facility] Calcium 8.9 8.4 - 10.2 mg/dL [facility] Bilirubin, Total 0.8 0.0 - 1.0 mg/dL [facility] Aspartate Amino Transferase 27 5 - 31 U/L [facility] Alanine Aminotransferase 29 0 - 31 U/L [facility] Total Protein 7.1 6.5 - 8.0 g/dL [facility] Albumin Level 4.2 3.5 - 5.0 g/dL [facility] Alkaline Phosphatase 100 39 - 117 U/L [facility] 03/10/2025 11:5 7 AM EDT 03/10/2025 12:00 PM EDT us Generic External Data Provider LAB BLOOD ORDERAB LES Final Result Performing Organization Address [facility]/ZIP Co de Phone Number [facility] [address] [place] [phone] * Magnesium (03/10/2025 11:57 AM EDT) Magnesium 2.3 1.6 - 2.6 mg/dL [facility] 03/10/2025 11:5 7 AM EDT 03/10/2025 12:00 PM EDT us Generic External Data Provider LAB BLOOD ORDERAB LES Final Result Performing Organization Address [facility]/ZIP Co de Phone Number [facility] [address] [place] [address] [phone] * BI Mammogram Screening Tomosynthesis Bilateral (02/05/2025 12:34 PM EDT) Anatomical Region Laterality Modality Breast Bilateral Mammography 02/05/2025 12:3 4 PM EDT Narrative 02/12/2025 2:54 PM EDT [address] [place] [address] Mammography Report Signed Patient: Laura Graham MR#: [id number] : 1965 Acct:[id number] Age/Sex: 60 / F ADM Date: 02/05/25 Loc: HO.MAMMO Attending Dr: Alex Machuca MD Ordering Physician: Alex Machuca MD Results: 2Benign Findings Date of Service: 02/05/25 Follow Up: 1 Year From [facility] Mammogram Procedure(s): MM tomosynthesis screening BI Accession Number(s): [id number] cc: MICHAEL YANEZ COMPOSITE SCIENCE TEACHER; Alex Machuca MD EXAMINATION: MM SCREENING DIGITAL [...] 02/12/25 1451 DD/ 1234 TD/TT: 02/05/25 1248 Document Control Associate: Procedure Note Donheraclioter, Image - 02/12/2025 [facility] [address] [place] [address] Mammography Report Signed Patient: Aleksandar Graham#: [id number] 27 : 1965Acct:[id number] Age/Sex: 60 / FADM Date: 02/05/25 Loc: HO.MAMMO Attending Dr: Alex Machuca MD Ordering Physician: Alex Machuca MDResults: 2Benign Findings Date of Service: 02/05/25Follow Up: 1 Year From Orig inal Mammogram Procedure(s): MM tomosynthesis screening BI Accession Number(s): [id number] cc: MICHAEL YANEZ NP; Alex Machuca MD [...] 02/12/25 1451 DD/ 1234 TD/TT: 02/05/25 1248 Document Control Associate: [facility] External Provider IMG BI PROCEDURES Final Result * (ABNORMAL) Lipid Panel, Standard (08/25/2024 10:00 AM EST) Triglycerides 61 <150 mg/dL [facility] Comment:Desirable Triglyceri de: less than 150 [...] 190 mg/dL HDL Cholesterol 56 >40 mg/dL [facility] Comment:Desirable HDL: great er than 40 mg/dL Note: This HDL assay may give artificially low results in patients with liver disease. 08/25/2024 10:0 0 AM EST 08/25/2024 11:37 AM EST [facility] LAB BLOOD ORDERABLES Final Resul t [facility] [place] [phone] [phone] * HIV-1/2 Antigen and Antibodies, Fourth Generation, with Reflexes (01/04/2024 9:49 AM EDT) HIV AB/AG Nonreactive Nonreactive [facility] Comment:HIV-1 p24 Ag and/or HIV-1/HIV-2 Ab not detected.A test result that is nonreactive does not exclude thepossibility of exposure to or infection with HIV-1 and/orHIV-2. Nonreactive results in this assay for individualswith prior exposure to HIV-1 and/or HIV-2 may be due toantigen and antibody levels that are below the limit ofdetection of this assay.The [employer] HIV Ag/Ab Combo assay result andsupplemental assay results should be interpreted inconjunction with the patient's clinical presentation,history and other laboratory results. If the results areinconsistent with clinical evidence, additional testing issuggested to confirm the result. Blood Venous blood specimen / Unknown 01/04/2024 9:49 AM EDT 01/04/2024 11:50 AM EDT [facility] LAB BLOOD ORDERABLES Final Resul t Performing Organization Address [facility] [employer] de Phone Number [facility] [address] [place] [phone] * Hepatitis C Ab (09/09/2022 10:23 AM EST) Hepatitis C Antibody Nonreactive Nonreactive [facility] Comment:Antibodies to HCV no t detected; does not exclude early acuteHCV infection. 09/09/2022 10:2 3 AM EST 09/09/2022 10:23 AM EST [facility] External Provider LAB BLO OD ORDERABLES Final Result Performing Organization Address [facility] de Phone Number [facility] [address] [place] [phone] * Hm Colonoscopy (07/08/2021 12:15 PM EST) Colonoscopy Normal Normal Fidencio Vila MD HEALTH MAINTENANCE Edited Re sult - Final from Last 3 Months or Most Recently Relevant to Health Maintenance Insurance [facility] C3 DENTAL-[facility] MEDICAID STAND ADULT [employer] Care Teams Supply Technician Relationship Specialty Start Date End Date Michael Yanez ANP [address] [place] [address] PCP - General Family Medicine 01/16/20 Abel Chavarria, ILENE [address] [place] [phone] Registered Nurse Family Medicine 02/26/25 Margareth Chavarria 02/26/25
--- OUTSIDE RECORDS SUMMARY | 2025-06-04 15:26 | XMS_ITS | Encounter Summary ---
Author Organization [employer] Address [address] [place] [address] [address] [place] [address] Care Team Providers Care Hydraulic Operator Name Role Phone Nupur Weir Primary Care Provider [phone] Abel Chavarria RN Unavailable [phone] Margareth Chavarria Unavailable Reason for Visit * Reason Onset Date Comments Med Refill 07/26/2024 Encounter Details Date Type Department Care Team ([facility] st Contact Info) Description 07/26/2024 Telephone [facility] MEDICINE [address] [place] [phone] Nupur Weir ANP [address] [place] [phone] Med Refill Social History Tobacco Use Types [...] t he electric, gas, oil or water [employer] threatened to shut off services in your [...] 50 MG tablet To be sent to: [id number] [address] [facility] documented in this encounter Plan of Treatment Upcoming Encounters Date Type Department Care Team ([facility] st Contact Info) Description 06/12/2025 9:45 AM EDT Office Visit [facility] MEDICINE [address] [place] [phone] 08/14/2025 9:15 AM EST Office Visit [facility] MEDICINE [address] [place] [phone] Nupur Weir, ANP [address] [place] [address] [phone] 09/28/2025 9:30 AM EST Medication Management [facility] MEDICINE [address], [place] [phone] Fay Leigh, MayoD [address] [place] [address] documented as of this encounter Visit Diagnoses Not on filedocumented in this encounter Care Teams Hydraulic Operator Relationship Specialty Start Date End Date Nupur Weir ANP [address] [place] [address] PCP - General Family Medicine 01/16/20 Abel Chavarria, ILENE [address] [place] [phone] Registered Nurse Family Medicine 02/26/25 Margareth Chavarria 02/26/25 documented as of this encounter
--- OUTSIDE RECORDS SUMMARY | 2025-06-04 15:26 | XMS_ITS | Encounter Summary ---
Author Organization [employer] Address [address] [place] [address] Street 7t [place] [address] Care Team Providers Care Director Biostatistics Name Role Phone Nupur Weir Primary Care Provider [phone] Abel Chavarria RN Unavailable [phone] Margareth Chavarria Unavailable Reason for Visit * Reason Comments Med Refill Encounter Details Date Type Department Care Team (Late st Contact Info) Description 07/22/2024 Refill [facility] MED[facility]INE [address] [place] [address] Nupur Weir ANP [address] [place] [address] Social History Tobacco Use Types Packs/Day Years [...] the past 12 months, has t he [employer], gas, oil or water [employer] threatened to shut off services in your [...] Description 06/12/2025 9:45 AM EDT Office Visit [address] [address] 08/14/2025 9:15 AM EST Office Visit [address] [address] Nupur Weir ANP [address] [place] [address] 09/28/2025 9:30 AM EST Medication Management [address] [address] Fay Leigh, MayoD [address] [place] [address] documented as of this encounter Visit Diagnoses Not on filedocumented in this encounter Care Teams Director Biostatistics Relationship Specialty Start Date End Date Nupur Weir ANP [address] [place] [address] PCP - General Family Medicine 01/16/20 Abel Chavarria RN [address] [place] [address] Registered Nurse Family Medicine 02/26/25 Margareth Chavarria 02/26/25 documented as of this encounter
--- OUTSIDE RECORDS SUMMARY | 2025-06-04 15:26 | XMS_ITS | Encounter Summary ---
Author Organization [employer] Address [address] 7t [place] [address] Care Team Providers Care Web Programmer Name Role Phone Nupur Weir Primary Care Provider [phone] Abel Chavarria RN Unavailable [phone] Margareth Chavarria Unavailable Encounter Details Date Type Department Care Team ([facility] st Contact Info) Description 07/05/2024 Telephone [facility] ADULT DENTAL [address] [place] [address] Alonso-PradhanYarelis friedman, DDS [address] [place] [address] Social History Tobacco Use Types Packs/Day Years [...] Shameka Simons - 07/05/2024 10:56 AM EST Or doctor flip Patient called she went her pharmacy and her medication was not there. Can we send her prescriptions to her pharmacy thank you . documented in this encounter Plan of Treatment Upcoming Encounters Date Type Department Care Team (Late st Contact Info) Description 06/12/2025 9:45 AM EDT Office Visit [facility] [address] [place] [address] 08/14/2025 9:15 AM EST Office Visit [facility] [address] [place] [address] Nupur Weir, BATOOL [address] [place] [address] 09/28/2025 9:30 AM EST Medication Management [facility] [address] [place] [address] Fay Leigh, PharmD [address] [place] [address] documented as of this encounter Visit Diagnoses Not on filedocumented in this encounter Care Teams Web Programmer Relationship Specialty Start Date End Date Nupur Weir ANP [address] [place] [address] PCP - General Family Medicine 01/16/20 Abel Chavarria RN [address] [place] [address] Registered Nurse Family Medicine 02/26/25 Margareth Chavarria 02/26/25 documented as of this encounter
--- OUTSIDE RECORDS SUMMARY | 2025-06-04 15:26 | XMS_ITS ---
Author Organization [employer] Address [address] [place] [address] 7t [place] [address] Care Team Providers Care Cottrell Operator Name Role Phone Nupur Weir Primary Care Provider [phone] Abel Chavarria RN Unavailable [phone] Margareth Chavarria Unavailable [facility] Status:Enrolled (Active) Start date:02/26/2025 Enrollment date:03/15/2025 Enrollment reason:ADT Feed Overview ED- Pt went to [facility] on 02/24/25. Please outreach for enrollment. Armida Case Team Name Relationship Phone Margareth Chavarria(Responsible Staff) [phone] Continued Care and Services Coordination
--- OUTSIDE RECORDS SUMMARY | 2025-06-04 15:26 | XMS_ITS | Encounter Summary ---
Author Organization [facility] Address [address] [place] [address] 7t [place] [address] Care Team Providers Care Entry Level Software Developer Name Role Phone Nupur Weir Primary Care Provider [phone] Abel Chavarria RN Unavailable [phone] Margareth Chavarria Unavailable Encounter Details Date Type Department Care Team (Late st Contact Info) Description 07/30/2022 Abstract [facility] ADULT DENTAL [address] [place] [address] Dental, Provider, DDS Social History Tobacco Use [...] Description 06/12/2025 9:45 AM EDT Office Visit [facility] [address] [place] [address] 08/14/2025 9:15 AM EST Office Visit [facility] [address] [place] [phone] Nupur Weir ANP [address] [place] [address] 09/28/2025 9:30 AM EST Medication Management [facility] [address] [place] [address] Fay Leigh, Elba [address] [place] [address] documented as of this encounter Procedures Procedure [...] on filedocumented in this encounter Care Teams Entry Level Software Developer Relationship Specialty Start Date End Date Nupur Weir ANP [address] [place] [address] PCP - General Family Medicine 01/16/20 Abel Chavarria, ILENE [address] [place] [address] Registered Nurse Family Medicine 02/26/25 Margareth Chavarria 02/26/25 documented as of this encounter
== END 2025-06-04 13:37 | disposition home or self-care (01) ==
LOC: HO.HGS 13:04
PROVIDERS: PCP Nurse Practitioner Primary Care; Visit Provider Surgery
DX: L02.419 Cutaneous abscess of limb, unspecified (principal)
CPT/HCPCS: 99213

== ENCOUNTER → 2025-06-04 13:04 | Outpatient (BNVA) | payer MEDICAID, SELFPAY | PROVIDERS: PCP Nurse Practitioner Primary Care; Visit Provider Surgery | DX: L02.415 Cutaneous abscess of right lower limb (principal) | CPT/HCPCS: 99212 ==

== ENCOUNTER 2025-06-06 10:21 | Outpatient (AMB) | payer MEDICAID, SELFPAY ==
--- NOTE | 2025-06-06 10:23 | A.OFFVIS_ITS ---
Vital Signs 3 06/06/25 10:32 Height 5 ft 5 in Weight 141 lb BMI 23.5 BP 112/77 Blood Pressure Location Rt brachial Position Sitting Pulse 80 Intake Visit Reasons: piercing infected, might need I&D Intake Note: Patient referred by Dr. Block for infected piercing on mid chest. Augmentin rx picked up yesterday but will start later this morning with meal. Patient c/o: swollen bump, oozing yesterday, painful, tender to touch. Yardmaster Required: Yes Information Interpreted: clinical only (Claudia REYES) Accompanied by: Self / Same As Patient Allergies ondansetron (From ZOFRAN) Allergy (Unknown, Verified 06/06/25 10:32) per H&P sumatriptan (From IMITREX) Allergy (Unknown, Verified 06/06/25 10:32) RASH FROM TABLET NOT INJECTION promethazine (From PHENERGAN) Adverse Reaction (Severe, Verified 06/06/25 10:32) DYSTONIA HPI HPI piercing infected, might need I&D: Details: 60 year old female who is known to our service, returning today after referral from Dr. block at [facility] for concern of abscess at a piercing site on the sternum. Patient states she got the piercing over 6 months ago and things were going well. She noticed some sudden sharp pain from the area and subsequently removed the piercing. After removal it has been come increasingly painful and there has been a new red lump. It has actually started to drain some pus starting about 2 days ago. Even light touch like in the shower causes pain. She was seen by Dr. Block who recommended she be seen by General surgery for possible incision and drainage of this. He did send her a one-week prescription for Augmentin yesterday however she has not begun taking it yet. She denies fevers at home. [facility] Medical History (Updated 06/06/25 @ 11:47 by Preston Barksdale PA-C) Abscess of leg Well woman exam Epidermal cyst Migraine HTN (hypertension) IBS (irritable bowel syndrome) GERD (gastroesophageal reflux disease) Chronic interstitial cystitis Sleep apnea Asthma Anemia Hypercholesteremia Depression Anxiety Sacrococcygeal pilonidal cyst Recurrent UTI Goiter Flank pain Dysuria Hypercalciuria Swelling of joint, ankle, right Swelling of right foot Vitamin D deficiency Hypothyroidism Right patella fracture History of secondary hyperparathyroidism Abnormal mammogram Surgical History History of removal of cyst (~05/12/24) History of bladder surgery H/O bilateral salpingo-oophorectomy S/P gastric bypass H/O left breast biopsy H/O: hysterectomy History of bilateral tubal ligation History of appendectomy Family History Mother Uterine cancer Father No problems noted. 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 1 cm round raised lesion. Tender to palpation no surrounding erythema. No active drainage, no drainage with manipulation. Just inferior you can see a whole, representing the other end of the piercing. There was a palpable firmness between the lesion in the hole from the other end of the piercing likely the tract from the piercing. Neuro General: patient oriented x3 Assessment & Plan Assessment & Plan (1) Body piercing: Comment: With possible abscess Code(s): Z78.9 - Other specified health status Category: Medical Plan 60 year old female who is known to our service, returning today after referral from Dr. block at [facility] for concern of abscess at a piercing site on the sternum. Patient reporting the superior aspect of the piercing became painful and there was a small lump forming. She removed the piercing hoping that this would improve however it was become increasingly more tender and larger and now began draining small amounts of pus. She saw Dr. Block at the [facility] who referred her to us for possible incision and drainage. He did also prescribe for one-week of Augmentin however she has not started taking this yet. On exam there was about a 1 cm round raised lesion that appears to be a granuloma rather than an abscess. I was unable to appreciate any fluid collection or manipulate any further drainage. This was very tender to the touch pad to see any cellulitic changes surrounding this. At this point I did not feel that it was necessary to drain this. Additionally she has not started antibiotics were would like her to try this week of antibiotics to see if this improves the area. If this is not improving can likely excise or incise to drain this area. I recommended that she should begin the antibiotics as soon as possible and complete the entire course as prescribed. Additionally recommend that she use warm compress on this area a few times a day which may help facilitate additional drainage if there is any fluid collection left. She will return in one-week for re-evaluation of this area. We discussed return precautions if this becomes more inflamed, has more drainage or she develops fevers or chills that she should reach out to the office to be seen earlier. She is agreeable to this plan Coding Level of Care Code Est Pt Level 3 (90329) Diagnoses Body piercing Z78.9
[2025-06-06 10:32] VITALS: BP 112/77; PULSE 80; BMI 23.5
== END 2025-06-06 10:45 | disposition home or self-care (01) ==
LOC: HO.HGS 10:22
PROVIDERS: PCP Nurse Practitioner Primary Care
DX: Z78.9 Other specified health status (principal)
CPT/HCPCS: 99213

== ENCOUNTER → 2025-06-06 10:21 | Outpatient (BNVA) | payer MEDICAID, SELFPAY | PROVIDERS: PCP Nurse Practitioner Primary Care | DX: N30.10 Interstitial cystitis (chronic) without hematuria (principal); R39.9 Unspecified symptoms and signs involving the genitourinary system; L08.89 Other specified local infections of the skin and subcutaneous tissue | CPT/HCPCS: 52000; 81003; 99212 ==

== ENCOUNTER 2025-06-06 12:39 | Outpatient (AMB) | payer MEDICAID, SELFPAY ==
--- NOTE | 2025-06-06 12:42 | A.OFFVIS_ITS ---
Intake Visit Reasons: cysto Intake Note: Patient is present for Cystoscopy Urology Medication:VITAMIN B6,estradiol, Vesicare Antibiotic Allergy:NONE Blood Thinner:NONE LAST PVR:54ML[facility] Shelter Monitor Required: No Accompanied by: Self / Same As Patient Allergies ondansetron (From ZOFRAN) Allergy (Unknown, Verified 06/06/25 12:43) per H&P sumatriptan (From IMITREX) Allergy (Unknown, Verified 06/06/25 12:43) RASH FROM TABLET NOT INJECTION promethazine (From PHENERGAN) Adverse Reaction (Severe, Verified 06/06/25 12:43) DYSTONIA HPI Comments Details: Glandular is a pleasant Citizen Of [place]-speaking female. She is a patient of Dr. Weir. She is seen for the following urologic conditions - hypercalciuria - interstitial cystitis - recurrent urinary tract infections Here for check cystoscopy Grade 1 trabeculation Mucosal changes consistent with probable interstitial cystitis Dietary advice given Continue topical estradiol Six-month follow-up nurse-practitioner Interstitial cystitis Recurrent UTI Microgen12/22 multi bacteria given linezolid [facility] Medical History (Updated 06/06/25 @ 11:47 by Preston Barksdale PA-C) Abscess of leg Well woman exam Epidermal cyst Migraine HTN (hypertension) IBS (irritable bowel syndrome) GERD (gastroesophageal reflux disease) Chronic interstitial cystitis Sleep apnea Asthma Anemia Hypercholesteremia Depression Anxiety Sacrococcygeal pilonidal cyst Recurrent UTI Goiter Flank pain Dysuria Hypercalciuria Swelling of joint, ankle, right Swelling of right foot Vitamin D deficiency Hypothyroidism Right patella fracture History of secondary hyperparathyroidism Abnormal mammogram Surgical History History of removal of cyst (~05/12/24) History of bladder surgery H/O bilateral salpingo-oophorectomy S/P gastric bypass H/O left breast biopsy H/O: hysterectomy History of bilateral tubal ligation History of appendectomy Family History Mother Uterine cancer Father No problems noted. 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 Sexual orientation: Straight/Heterosexual Gender identity: Female Female Reproductive History Menstrual Age of Menarche: 13 Review of Systems Const Denies chills and Denies fever(s) Card Reports no additional complaints and Denies syncope Resp Denies cough GI Denies abdominal pain and Denies heartburn Reports as per HPI and Denies change in libido Neuro Denies syncope Psych Denies change in libido Endo Denies change in libido Physical Exam Const General: cooperative, healthy appearing, comfortable and no acute distress Orientation/consciousness: patient oriented x3 HEENT Face and sinus: Yes normal facial exam Mouth: moist mucous membranes Neck Neck: Yes normal visual inspection, Yes full ROM and Yes trachea midline Chest Chest palpation & inspection: normal inspection of the chest Resp Effort & Inspection: normal respiratory effort, able to speak in complete sentences and no respiratory distress GI Inspection: Yes normal to inspection Back/Spine/Pelvis Cervical Spine: normal cervical lordosis Thoracic/Lumbar Spine: thoracic and lumbar spine normal to inspection Skin General skin exam: no rashes or lesions noted Neuro General: patient oriented x3, gait normal, tone normal and moves all extremities Extrem General: Yes normal to inspection and Yes capillary refill normal Office Procedures Cystoscopy Consent Discussed risk and benefit or proposed procedure with the patient. Information consent for procedure given to the patient. Discussed technical aspects, risks, benefits and alternatives in full. Addressed all of the patient's questions and concerns regarding the procedure. The patient demonstrated knowledge and understanding. They wish to proceed with this procedure. Preparation The patient was prepped in the usual manner. A graduate recruiter was present and in the room. Genitalia was prepped with betadine solution in a sterile manner. Lidocaine Jelly 2% was placed into the urethra and 16Fr flexible Olympus cystoscope was inserted into the meatus after adequate lubrication. Procedure Meatus normal position Urethra atrophic Bladder examination with retroflexion of cystoscope Bladder Orifices normal shape and position Trigone inflamed Bladder Capacity Normal Trabeculations grade 1 Cellule Formation None Diverticulum Formation None Mucosal Erythema changes consistent with interstitial cystitis. No ulcers Bladder Tumor None [id number] DISPOSABLE SCOPE URO-G FLEXIBLE SCOPE Procedure code (CPT) selection complete Office Meds lidocaine HCl 2 % mucosal jelly in applicator Performing Provider: Dameon Norton MD Performing Location: [facility] [place] [facility] Administered by: Johnna Jorgensen RN on 06/06/25 13:23 Dose Route Admin Location Dispensed Lot Number Expiration Date NDC Radius Corner Machine Operator 10 mL intra-urethral 10 mL nitrofurantoin monohydrate/macrocrystals 100 mg capsule Performing Provider: Dameon Norton MD Performing Location: [facility] [place] [facility] Administered by: Johnna Jorgensen RN on 06/06/25 13:23 Dose Route Admin Location Dispensed Lot Number Expiration Date NDC Radius Corner Machine Operator 100 mg PO 1 cap Assessment & Plan Assessment & Plan (1) Lower urinary tract symptoms: Code(s): R39.9 - Unspecified symptoms and signs involving the genitourinary system Category: Medical (2) Interstitial cystitis: Code(s): N30.10 - Interstitial cystitis (chronic) without hematuria Category: Medical (3) Recurrent UTI: Code(s): N39.0 - Urinary tract infection, site not specified Category: Medical Plan Six-month follow-up nurse-practitioner Orders: Orders AMB Cystoscopy Today N30.10 - Interstitial cystitis (chronic) without hematuria, N39.0 - Urinary tract infection, site not specified Patient Instructions: This note is constructed using voice recognition software. While every effort has been made to ensure accuracy overnight caregiver errors may have been included. Imaging studies, laboratory and physical exam results were discussed and reviewed in detail. No major barriers to patient understanding were identified. An opportunity to ask questions regarding the treatment plan was provided. All questions were answered. The patient expressed understanding and agreement with the above treatment plan. The patient is aware they should contact our office by phone for worsening of their current condition or the appearance of new urologic symptoms. Compliance is encouraged with any medications and followup testing that is ordered. It is a privilege to participate in the urologic care of your patient. If you have any questions or concerns regarding treatment for the above conditions, or other urologic issues, please do not hesitate to contact me. The office telephone contact is [phone]. Sincerely, Dr Dameon Norton MD, [facility] - Urology Compassionate Specialist Care for the Genitourinary System Coding Level of Care Code Est Pt Level 3 (70994) Complex EM visit Add On G2211 Diagnoses Lower urinary tract symptoms R39.9 Interstitial cystitis N30.10 Recurrent UTI N39.0 CPT Codes Cystoscopy - CPT: 80749-[id number] ([id number])
== END 2025-06-06 13:39 | disposition home or self-care (01) ==
LOC: HO.HUSH 12:39
PROVIDERS: PCP Nurse Practitioner Primary Care; Referring Provider Nurse Practitioner Primary Care; Visit Provider Urology
DX: R39.9 Unspecified symptoms and signs involving the genitourinary system (principal); N30.10 Interstitial cystitis (chronic) without hematuria; N39.0 Urinary tract infection, site not specified; Z13.9 Encounter for screening, unspecified
CPT/HCPCS: 52000; 99213

== ENCOUNTER 2025-06-13 12:56 | Outpatient (REF) | payer MEDICAID, SELFPAY | END 2025-06-13 12:57 | disposition home or self-care (01) | LOC: HO.LNP 12:56 | PROVIDERS: PCP Nurse Practitioner Primary Care | DX: L98.8 Other specified disorders of the skin and subcutaneous tissue (principal); Z78.9 Other specified health status | CPT/HCPCS: 11401; 88304; 99212 ==

== ENCOUNTER 2025-06-13 12:56 | Outpatient (AMB) | payer MEDICAID, SELFPAY ==
--- OUTSIDE RECORDS SUMMARY | 2023-12-29 09:10 | XMS_ITS ---
Author Organization [facility] Address [address] [place] [address] [place] [phone] Care Team Providers Care Account Classification Clerk Name Role Phone MICHAEL YANEZ N.P. Primary Care Provider Fidencio Langley Jr REASON FOR VISIT rectal bleeding Encounters Encounter Location Date Provider [place] [facility] [place] [address] [place] [id number] 12/29/2023 Fidencio Vila Jr Rectal bleeding K62.5 Assessments Encounter Date Diagnosis (ICD Code) Assessment Notes Treatment Notes Treatment Clinical Notes Section Notes 12/29/2023 Rectal bleeding (ICD-10 - K62.5) Plan Of Treatment Next Appt Details Provider Name:Fidencio haider Jr, 07/18/2025 11:20:00 AM, [address] [place] [address], Suite [facility], [place], [address], Progress Notes * TIFFANIE TYLERMACB: 6 (60 yo F)Acc No.[id number]:12/29/2023 COLON WITH MAC Patient: TAY CAPELLAN Provider: Remi Vila MD :1965 A ge:58 Y S ex:Female Date:12/29/2023 Address:[address] [place] Pcp:MICHAEL YANEZ N.P. Subjective: * Chief Complaints: [...] 12/29/2023 Generated for Viviane negrete/Shakila/Jadenitting on: 1 04:29 PM EDT
--- OUTSIDE RECORDS SUMMARY | 2025-01-03 05:20 | XMS_ITS ---
Author Organization [facility] Address [address] [facility] [address] [place] [address] Care Team Providers Care Animal Health Technician Name Role Phone MICHAEL YANEZ N.P. Primary Care Provider Fidencio Langley Jr [phone] REASON FOR VISIT dysphagia Encounters Encounter Location Date Provider Diagnosis [facility] [address] [place] [address] 01/03/2025 Fidencio Vila Jr Plan Of Treatment Next Appt Details Provider Name:Fidencio haider Jr, 07/18/2025 11:20:00 AM, [address] [place] [address], [address], [place], [address], Progress Notes * TIFFANIE TYLERADOB: 6 (60 yo F)Acc No.[id number]:01/03/2025 Progress Notes Patient: TAY CAPELLAN Provider: Remi Vila MD :1965 A ge:59 Y S ex:Female Date:01/03/2025 Address:[address] [place] Pcp:MICHAEL YANEZ N.P. Subjective: * Chief Complaints: [...] 01/03/2025 Generated for Viviane negrete/Shakila/Constantino on: 1 04:28 PM EDT
--- OUTSIDE RECORDS SUMMARY | 2025-06-12 09:45 | XMS_ITS | Encounter Summary ---
Author Organization [employer] Address [address] [place] [address] Care Team Providers Care Water Resource Manager Name Role Phone Nupur Weir Primary Care Provider [phone] Abel Chavarria RN Unavailable [phone] Margareth Chavarria Unavailable Encounter Details Date Type Department Care Team (Late st Contact Info) Description 06/12/2025 9:45 AM EDT Office Visit [facility] MEDIC[facility] [address] [place] [address] Anushka Gunter FNP [address] [place], [place] [phone] Lumbar spondylosis (Primary Dx); Long-term current use [...] this encounter Progress Notes * Anushka Gunter, YOKER MACHINE OPERATOR - 06/12/2025 9:45 AM EDT Subjective: Laura Graham is a 60 y.o. female w/ PMH hypertension, HLD, IBS, GERD, anemia, anxiety, insomnia, PETER, and chronic low back pain, who presents to the office for - Chronic Pain Clinic Group visits. Initial Group visit: 04/10/25 Group Topic: KT-Tape Presentation Chronic Pain History: Associated Diagnosis: chronic low [...] Q8H PRN Indication: arthralgia, lumbar spondylosis Last PANELBOARD ASSEMBLER Agreement: 12/01/24 Field Merchandiser tier 2 q 3 mo Current Assessment & Plan Timeline: - 05/08/25: Group - utox/pill count as expected - 06/12/25: Group - utox/pill count as expected Relevant [...] modalities Pill count and UTOX as expected Relevant Orders POCT MERY-14 Urine Drug Screen (Completed) Follow up: 1-3 months for Group Chronic Pain Clinic. Follow up as scheduled with PCP, sooner as needed. * Chika Longo RN - 06/12/2025 9:45 AM EDT PANELBOARD ASSEMBLER donor relations manager: PDMP reviewed today. Last fill date: 05/25/25 Tramadol 50mg count was 3, anticipated 0 to be remaining. UTOX completed. Negative for all substances: AMP, BAR, BUP, BZO, ADOLFO, FTY, MDMA, MET, MOP, MTD, OXY, PCP, TCA, THC. UTOX as expected. documented in this encounter Miscellaneous Notes * Assessment & Plan Note - KYLER Henson - 06/12/2025 12:48 PM EDT Associated Problem(s): Lumbar spondylosis Chronic low back pain, XR Lumbar spine Aug 2024 demonstrates moderate degenerative changes in the lumbar spine most pronounced at L5-S1 Good engagement and participation with Group Medical Visit model Encouraged multifactorial approach to pain control including pharm and non-pharm modalities Pill count and UTOX as expected * Assessment & Plan Note - KYLER Henson - 06/12/2025 12:47 PM EDT Associated Problem(s): Long-term current use of opiate analgesic Timeline: - 05/08/25: Group - utox/pill count as expected - 06/12/25: Group - utox/pill count as expected documented in this encounter Plan of Treatment Upcoming Encounters Date Type Department Care Team (Late st Contact Info) Description 07/10/2025 9:45 AM EST Office Visit [address] [address] 08/07/2025 9:45 AM EST Office Visit [address] [address] 08/14/2025 9:15 AM EST Office Visit [address] [address] Nupur Weir ANP [address] [place] [address] 09/28/2025 9:30 AM EST Medication Management [address] [address] Fay Leigh, PharmD [address] [place] [address] documented as of this encounter Procedures Procedure Name Priority Date/Time Associated Diagnosis Comments POCT MERY-14 URINE DRUG SCREEN Routine 06/12/2025 10:48 AM EDT Long-term current use of opiate analgesic Lumbar spondylosis documented in this encounter Results * (ABNORMAL) POCT MERY-14 Urine Drug Screen (06/12/2025 10:48 AM EDT) THC Negative Negative Cocaine Screen, [...] obtained by clean catch procedure / Unknown 06/12/2025 10:48 AM EDT Anushka Gunter YOKER MACHINE OPERATOR POINT OF CARE TEST ENTER/EDIT ORDERABLES Edited Result - Final documented in this encounter Visit Diagnoses Diagnosis Lumbar spondylosis- Primary Lumbosacral spondylosis without myelopathy Long-term current use of opiate analgesic Encounter for long-term (current) use of other medications documented in this encounter Additional Health Concerns Assessment Noted Time PHQ-9 Depression Total Score: 17 025 10:08 AM EDT documented as of this encounter Care Teams Water Resource Manager Relationship Specialty Start Date End Date Nupur Weir ANP [address] [place] [address] PCP - General Family Medicine 01/16/20 Abel Chavarria, ILENE [address] [place] [address] Registered Nurse Family Medicine 02/26/25 Margareth Chavarria 02/26/25 documented as of this encounter
--- NOTE | 2025-06-13 12:57 | A.OFFVIS_ITS ---
Vital Signs 06/13/25 12:59 Height 5 ft 5 in Weight 140 lb BMI 23.3 BP 123/77 Blood Pressure Location Rt brachial Position Sitting Pulse 83 Intake Visit Reasons: one week piercing infected, might need I&D Intake Note: Patient here to follow up abscess at a piercing site on mid chest. Patient c/o: started doxycycline 100mg bid X7d course. Reports site still sore, tender to touch. Denies bleeding, oozing. Branch Operation Evaluation Manager Required: No Accompanied by: Self / Same As Patient Allergies ondansetron (From ZOFRAN) Allergy (Unknown, Verified 06/13/25 12:58) per H&P sumatriptan (From IMITREX) Allergy (Unknown, Verified 06/13/25 12:58) RASH FROM TABLET NOT INJECTION promethazine (From PHENERGAN) Adverse Reaction (Severe, Verified 06/13/25 12:58) DYSTONIA HPI HPI one week piercing infected, might need I&D: Details: Patient reports she is still having pain at this area. It is very painful to the touch Denies any further drainage. She has taken the complete course of antibiotics in the lesion has not changed at all. She would like to get this removed. [facility] Medical History (Updated 06/13/25 @ 14:20 by Preston Barksdale PA-C) Abscess of leg Well woman exam Epidermal cyst Migraine HTN (hypertension) IBS (irritable bowel syndrome) GERD (gastroesophageal reflux disease) Chronic interstitial cystitis Sleep apnea Asthma Anemia Hypercholesteremia Depression Anxiety Sacrococcygeal pilonidal cyst Recurrent UTI Goiter Flank pain Dysuria Hypercalciuria Swelling of joint, ankle, right Swelling of right foot Vitamin D deficiency Hypothyroidism Right patella fracture History of secondary hyperparathyroidism Abnormal mammogram Surgical History History of removal of cyst (~05/12/24) History of bladder surgery H/O bilateral salpingo-oophorectomy S/P gastric bypass H/O left breast biopsy H/O: hysterectomy History of bilateral tubal ligation History of appendectomy Family History Mother Uterine cancer Father No problems noted. 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 Palpable cord likely representing the piercing tract from the superior to inferior piercing hole. No surrounding erythema no discharge no fluid collection or fluctuance. Neuro General: patient oriented x3 Office Procedures Excision Details: 60-year-old female with a 1 cm painful lesion of the mid chest after a piercing. Patient would like this excised. Consent for the procedure was obtained and signed for the patient. We discussed risks benefits alternatives to the procedure, patient would like to proceed with the excision of this lesion. I do not sterile gloves, the skin was prepped using Betadine, the area was draped in sterile fashion with a fenestrated sterile drape. The surrounding area was infiltrated with 1% lidocaine with epi for local anesthetic. Using a 15 blade I created a full-thickness elliptical incision encompassing the lesion in the entire tract from the previous piercing. The specimen was collected and sent for pathology. Hemostasis was achieved by holding direct pressure to the exc ision site. The skin was closed using 4 full-thickness 3-0 simple interrupted nylon sutures. The area was cleaned with normal saline and dried. The area was covered with gauze and tape. The patient tolerated the procedure well and there were no immediate complications. 38742-tkenc/arms/legs 0.6-1cm Procedure code (CPT) selection complete Assessment & Plan Assessment & Plan (1) Body piercing: Comment: With possible granuloma Code(s): Z78.9 - Other specified health status Category: Medical Plan 60-year-old female returning to the office with a painful lesion of the mid chest at the site of a previous piercing. Patient states he took the complete course of antibiotics that were previously prescribed in the area has not changed. There remains painful raised. She denies any drainage from the area she would like to get this removed if possible. We discussed risks benefits and alternatives to excision, patient decided to proceed with excision of this lesion. Consents were obtained. Details of the procedure can be seen above. Patient tolerated the procedure well, there were no immediate complications. Specimen will be sent to pathology. Patient will follow-up in one-week for wound check and suture removal can return sooner with any concerns or questions. Orders: Orders Surgical Today Z78.9 - Other specified health status Coding Level of Care Code Est Pt Level 4 (61858) Diagnoses Body piercing Z78.9 CPT Codes Trunk/Arms/Legs - CPT: 78250-ztpnq/arms/legs 0.6-1cm ([id number])
[2025-06-13 12:59] VITALS: BP 123/77; PULSE 83; BMI 23.3
--- OUTSIDE RECORDS SUMMARY | 2025-06-13 16:29 | XMS_ITS | Encounter Summary ---
Author Organization [employer] Address [address] [facility] [address] 7t [place] [address] Care Team Providers Care Disk Recordist Name Role Phone Nupur Weir Primary Care Provider [phone] Abel Chavarria RN Unavailable [phone] Margareth Chavarria Unavailable Reason for Visit * Reason Comments Med Refill Encounter Details Date Type Department Care Team (Late st Contact Info) Description 12/21/2024 Refill [facility] [place] [facility] MED[facility]INE [address] [place], [place] [phone] Nupur Weir ANP [address] [place] [address] Arthralgia, unspecified joint Social History Tobacco Use [...] Description 07/10/2025 9:45 AM EST Office Visit [address] [address] 08/07/2025 9:45 AM EST Office Visit [address] [address] 08/14/2025 9:15 AM EST Office Visit [address] [address] Nupur Weir, BATOOL [address] [place] [address] 09/28/2025 9:30 AM EST Medication Management [address] [address] Fay Leigh, MayoD [address] [place] [address] documented as of this encounter Visit Diagnoses Diagnosis Arthralgia, unspecified joint documented in this encounter Care Teams Disk Recordist Relationship Specialty Start Date End Date Nupur Weir ANP [address] [place], [place] [phone] PCP - General Family Medicine 01/16/20 Abel Chavarria, ILENE [address] [place] [address] Registered Nurse Family Medicine 02/26/25 Margareth Chavarria 02/26/25 documented as of this encounter
--- OUTSIDE RECORDS SUMMARY | 2025-06-13 16:29 | XMS_ITS | Encounter Summary ---
Author Organization [employer] Address [address] [facility] 7t [place] [address] Care Team Providers Care Website Designer Name Role Phone Nupur Weir Primary Care Provider [phone] Abel Chavarria RN Unavailable [phone] Margareth Chavarria Unavailable Reason for Visit * Reason Comments Med Refill Encounter Details Date Type Department Care Team (Late st Contact Info) Description 01/09/2023 Refill [facility] MEDICINE 230 [place], [place] [phone] Nupur Weir ANP [address] [place] [address] Arthralgia, unspecified joint; Other specified hypothyroidism Social [...] Upcoming Encounters Date Type Department Care Team ([facility] st Contact Info) Description 07/10/2025 9:45 AM EST Office Visit [address] [address] 08/07/2025 9:45 AM EST Office Visit [address] [address] 08/14/2025 9:15 AM EST Office Visit [address] [address] Nupur Weir ANP [address] [place] [address] 09/28/2025 9:30 AM EST Medication Management [address] [address] Fay Leigh PharmD [address] [place] [address] documented as of this encounter Visit Diagnoses Diagnosis Arthralgia, unspecified joint Other specified hypothyroidism documented in this encounter Care Teams Website Designer Relationship Specialty Start Date End Date Nupur Weir ANP [address] [place] [address] PCP - General Family Medicine 01/16/20 Abel Chavarria, ILENE [address] [place] [address] Registered Nurse Family Medicine 02/26/25 Margareth Chavarria 02/26/25 documented as of this encounter
--- OUTSIDE RECORDS SUMMARY | 2025-06-13 16:29 | XMS_ITS | Encounter Summary ---
Author Organization [employer] Address 75 [facility] 7t [place] [address] Care Team Providers Care Print Production Coordinator Name Role Phone Nupur Weir Primary Care Provider [phone] Abel Chavarria RN Unavailable [phone] Margareth Chavarria Unavailable Reason for Visit * Reason Onset Date Comments Med Refill 10/01/2023 Encounter Details Date Type Department Care Team (Late st Contact Info) Description 10/01/2023 Telephone [facility] MEDICINE [address], [place] [phone] Nupur Weir ANP [address] [place], [place] [phone] Med Refill Social History Tobacco Use Types [...] Base) MCG/ACT inhaler To be sent to: [id number] [place] - [address] [place] [address] documented in this encounter Plan of Treatment Upcoming Encounters Date Type Department Care Team (Late st Contact Info) Description 07/10/2025 9:45 AM EST Office Visit [address] [address] 08/07/2025 9:45 AM EST Office Visit [address] [address] 08/14/2025 9:15 AM EST Office Visit [address] [address] Nupur Weir ANP [address] [place] [address] 09/28/2025 9:30 AM EST Medication Management [address] [address] Fay Leigh, MayoD [address] [place] [address] documented as of this encounter Visit Diagnoses Not on filedocumented in this encounter Care Teams Print Production Coordinator Relationship Specialty Start Date End Date Nupur Weir ANP [address] [place] [address] PCP - General Family Medicine 01/16/20 Abel Chavarria, ILENE [address] [place] [address] Registered Nurse Family Medicine 02/26/25 Margareth Chavarria 02/26/25 documented as of this encounter
--- OUTSIDE RECORDS SUMMARY | 2025-06-13 16:29 | XMS_ITS | Encounter Summary ---
Author Organization [employer] Address [address] [facility] [address] 7t [place] [address] Care Team Providers Care Brim Curler Name Role Phone Nupur Weir Primary Care Provider [phone] Abel Chavarria RN Unavailable [phone] Margareth Chavarria Unavailable Encounter Details Date Type Department Care Team (Late st Contact Info) Description 05/25/2025 Results Follow-Up [facility] MEDICINE 230 [place] [address] Nupur Weir ANP 230 [place] [address] US VENOUS DUPLEX LE RT, US Extremity [...] tiene preguntas. Take care, Cu??Nupur arambula SUPERVISOR PASTE PLANT documented in this encounter Plan of Treatment Upcoming Encounters Date Type Department Care Team (Late st Contact Info) Description 07/10/2025 9:45 AM EST Office [address] [facility] [address] [place] [address] 08/07/2025 9:45 AM EST Office [address] [facility] [address] [place] [address] 08/14/2025 9:15 AM EST Office Visit [address] [address] Nupur Weir ANP [address] [place] [address] 09/28/2025 9:30 AM EST Medication Management [address] [address] Fay Leigh PharmD [address] [place] [address] documented as of this encounter Visit Diagnoses Not on filedocumented in this encounter Additional Health Concerns Assessment Noted Time PHQ-9 Depression Total Score: 17 04/12/ 025 10:08 AM EDT documented as of this encounter Care Teams Brim Curler Relationship Specialty Start Date End Date Nupur Weir ANP [address] [place] [address] PCP - General Family Medicine 01/16/20 Abel Chavarria, ILENE [address] [place] [address] Registered Nurse Family Medicine 02/26/25 Margareth Chavarria 02/26/25 documented as of this encounter
--- OUTSIDE RECORDS SUMMARY | 2025-06-13 16:29 | XMS_ITS | Encounter Summary ---
Author Organization [employer] Address [address] [facility] [address] 7t [place] [address] Care Team Providers Care Business Intelligence Developer Name Role Phone Nupur Weir Primary Care Provider [phone] Abel Chavarria RN Unavailable [phone] Margareth Chavarria Unavailable Reason for Visit * Reason Comments Med Refill Encounter Details Date Type Department Care Team (Late st Contact Info) Description 11/07/2024 Refill [facility] [address] [place], [place] [phone] Nupur Weir ANP 230 [place] [address] Primary hypertension; Iron deficiency anemia, unspecified iron [...] Description 07/10/2025 9:45 AM EST Office Visit [address] [address] 08/07/2025 9:45 AM EST Office Visit [address] [address] 08/14/2025 9:15 AM EST Office Visit [address] [address] Nupur Weir ANP [address] [place] [address] 09/28/2025 9:30 AM EST Medication Management [address] [address] Fay Leigh, PharmD 230 [place] [address] documented as of this encounter Visit Diagnoses Diagnosis Primary hypertension Unspecified essential hypertension Iron deficiency anemia, unspecified iron deficiency anemia type documented in this encounter Care Teams Business Intelligence Developer Relationship Specialty Start Date End Date Nupur Weir ANP 230 [place] [address] PCP - General Family Medicine 01/16/20 Abel Chavarria, ILENE [address] [place] [address] Registered Nurse Family Medicine 02/26/25 Margareth Chavarria 02/26/25 documented as of this encounter
--- OUTSIDE RECORDS SUMMARY | 2025-06-13 16:29 | XMS_ITS | Encounter Summary ---
Author Organization [employer] Address [address] [facility] [address] 7t [place] [address] Care Team Providers Care Pmo Manager Name Role Phone Nupur Weir Primary Care Provider [phone] Abel Chavarria RN Unavailable [phone] Margareth Chavarria Unavailable Reason for Visit * Reason Comments Med Refill Encounter Details Date Type Department Care Team (Late st Contact Info) Description 02/11/2024 Refill [facility] 230 [place], [place] [phone] Marcella Colindres MD 230 [place] [address] Gastritis medicamentosa Social History Tobacco Use Types Packs/Day Years Used Date Smoking Tobacco: Never Passive Smoke Exposure: Never Smokeless Tobacco: Never Alcohol Use Standard Drinks/Week Comments Never 0 (1 standard drink = 0.6 oz pur e alcohol) PHQ-2 Answer Date Recorded Patient Health Questionnaire-2 Score 0 01/01/2023 Housing Stability Answer Date Recorded What is your housing situation today? I have michael ofelia 06/13/[address] you li [...] Description 07/10/2025 9:45 AM EST Office Visit [address] [address] 08/07/2025 9:45 AM EST Office Visit [address] [address] 08/14/2025 9:15 AM EST Office Visit [address] [address] Nupur Weir ANP [address] [place] [address] 09/28/2025 9:30 AM EST Medication Management [address] [address] Fay Leigh, PharmD [address] [place] [address] documented as of this encounter Visit Diagnoses Diagnosis Gastritis medicamentosa Other specified gastritis without mention of hemorrhage documented in this encounter Care Teams Pmo Manager Relationship Specialty Start Date End Date Nupur Weir ANP [address] [place] [address] PCP - General Family Medicine 01/16/20 Abel Chavarria, ILENE [address] [place] [address] [place] [address] Registered Nurse Family Medicine 02/26/25 Margareth Chavarria 02/26/25 documented as of this encounter
--- OUTSIDE RECORDS SUMMARY | 2025-06-13 16:29 | XMS_ITS | Encounter Summary ---
Author Organization [employer] Address [address] [facility] [address] 7t [place] [address] Care Team Providers Care Team Coordinator Name Role Phone Nupur Weir Primary Care Provider [phone] Abel Chavarria RN Unavailable [phone] Margareth Chavarria Unavailable Reason for Visit * Reason Comments Med Refill Encounter Details Date Type Department Care Team (Late st Contact Info) Description 09/19/2023 Refill [facility] MEDICINE 230 [place], [place] [phone] Nupur Weir ANP 230 [place] [address] Constipation, unspecified constipation type Social History Tobacco [...] Description 07/10/2025 9:45 AM EST Office Visit [address] [address] 08/07/2025 9:45 AM EST Office Visit [address] [address] 08/14/2025 9:15 AM EST Office Visit [address] [address] Nupur Weir ANP [address] [place] [address] 09/28/2025 9:30 AM EST Medication Management [address] [address] Fay Leigh, PharmD [address] [place] [address] documented as of this encounter Visit Diagnoses Diagnosis Constipation, unspecified constipation type documented in this encounter Care Teams Team Coordinator Relationship Specialty Start Date End Date Nupur Weir ANP [address] [place] [address] PCP - General Family Medicine 01/16/20 Abel Chavarria RN [address] [place] [address] Registered Nurse Family Medicine 02/26/25 Margareth Chavarria 02/26/25 documented as of this encounter
--- OUTSIDE RECORDS SUMMARY | 2025-06-13 16:29 | XMS_ITS | Encounter Summary ---
Author Organization [employer] Address [address] [facility] [address] 7t [place] [address] Care Team Providers Care Face Cleaner Name Role Phone Nupur Weir Primary Care Provider [phone] Abel Chavarria RN Unavailable [phone] Margareth Chavarria Unavailable Reason for Visit * Reason Comments Med Refill Encounter Details Date Type Department Care Team (Late st Contact Info) Description 02/11/2024 Refill [facility] MEDICINE 230 [place], [place] [phone] Nupur Weir ANP 230 [place] [address] Social History Tobacco Use Types Packs/Day Years [...] Description 07/10/2025 9:45 AM EST Office Visit [address] [address] 08/07/2025 9:45 AM EST Office Visit [address] [address] 08/14/2025 9:15 AM EST Office Visit [address] [address] Nupur Weir ANP [address] [place] [address] 09/28/2025 9:30 AM EST Medication Management [address] [address] Fay Leigh, PharmD [address] [place] [address] documented as of this encounter Visit Diagnoses Not on filedocumented in this encounter Care Teams Face Cleaner Relationship Specialty Start Date End Date Nupur Weir ANP [address] [place] [address] PCP - General Family Medicine 01/16/20 Abel Chavarria RN [address] [place] [address] [place] [address] Registered Nurse Family Medicine 02/26/25 Margareth Chavarria 02/26/25 documented as of this encounter
--- OUTSIDE RECORDS SUMMARY | 2025-06-13 16:29 | XMS_ITS | Encounter Summary ---
Author Organization [employer] Address [address] [facility] [address] 7t [place] [address] Care Team Providers Care Petrographer Name Role Phone Nupur Weir Primary Care Provider [phone] Abel Chavarria RN Unavailable [phone] Margareth Chavarria Unavailable Encounter Details Date Type Department Care Team (Latest Contact Info) Description 06/12/2025 Travel Social History Tobacco Use Types Packs/Day [...] Description 07/10/2025 9:45 AM EST Office Visit [address] [address] 08/07/2025 9:45 AM EST Office Visit [address] [address] 08/14/2025 9:15 AM EST Office Visit [address] [address] Nupur Weir, BATOOL 230 [place] [address] 09/28/2025 9:30 AM EST Medication Management [facility] MEDICINE [address] [place] [address] Fay Leigh, PharmD [address] [place] [address] documented as of this encounter Visit Diagnoses Not on filedocumented in this encounter Additional Health Concerns Assessment Noted Time PHQ-9 Depression Total Score: 17 025 10:08 AM EDT documented as of this encounter Care Teams Petrographer Relationship Specialty Start Date End Date Nupur Weir ANP 230 [place] [address] PCP - General Family Medicine 01/16/20 Abel Chavarria, ILENE [address] [place] [address] Registered Nurse Family Medicine 02/26/25 Margareth Chavarria 02/26/25 documented as of this encounter
--- OUTSIDE RECORDS SUMMARY | 2025-06-13 16:29 | XMS_ITS | Encounter Summary ---
Author Organization [employer] Address [address] [facility] [address] 7t [place] [address] Care Team Providers Care Geriatrics Physician Name Role Phone Nupur Weir Primary Care Provider [phone] Abel Chavarria RN Unavailable [phone] Margareth Chavarria Unavailable Reason for Visit * Reason Comments Med Refill Encounter Details Date Type Department Care Team (Late st Contact Info) Description 11/11/2023 Refill [facility] MEDICINE 230 [place], [place] [phone] Nupur Weir ANP 230 [place] [address] Social History Tobacco Use Types Packs/Day Years [...] Description 07/10/2025 9:45 AM EST Office Visit [address] [address] 08/07/2025 9:45 AM EST Office Visit [address] [address] 08/14/2025 9:15 AM EST Office Visit [address] [address] Nupur Weir ANP [address] [place] [address] 09/28/2025 9:30 AM EST Medication Management [address] [address] Fay Leigh, PharmD [address] [place] [address] documented as of this encounter Visit Diagnoses Not on filedocumented in this encounter Care Teams Geriatrics Physician Relationship Specialty Start Date End Date Nupur Weir ANP [address] [place] [address] PCP - General Family Medicine 01/16/20 Abel Chavarria RN [address] [place] [address] [place] [address] Registered Nurse Family Medicine 02/26/25 Margareth Chavarria 02/26/25 documented as of this encounter
--- OUTSIDE RECORDS SUMMARY | 2025-06-13 16:29 | XMS_ITS | Encounter Summary ---
Author Organization [employer] Address [address] [facility] [address] 7t [place] [address] Care Team Providers Care Construction Scheduler Name Role Phone Nupur Weir Primary Care Provider [phone] Abel Chavarria RN Unavailable [phone] Margareth Chavarria Unavailable Reason for Visit * Reason Onset Date Comments rs no show appt 11/30/2024 Encounter Details Date Type Department Care Team (Late st Contact Info) Description 11/30/2024 Telephone [facility] 230 [place], [place] [phone] Taty Laura [address] [place], [place] [phone] rs no show appt Social History Tobacco [...] or on edge 2 12/01/2024 11:08 AM EDKassy Albarran RN Not being able to stop or [...] annoyed or irritable 1 12/01/2024 11:08 AM EDT Kassy Ramsey ILENE Feeling afraid as if somethi ng awful might happen 0 12/01/2024 11:08 AM EDT Kassy Ramsey RN ROSALBA-7 Total Score 6 12/01/2024 11:08 AM [...] Description 07/10/2025 9:45 AM EST Office Visit [address] [address] 08/07/2025 9:45 AM EST Office Visit [address] [address] 08/14/2025 9:15 AM EST Office Visit [address] [address] Nupur Weir ANP [address] [place] [address] 09/28/2025 9:30 AM EST Medication Management [address] [address] Fay Leigh, PharmD [address] [place] [address] documented as of this encounter Visit Diagnoses Not on filedocumented in this encounter Care Teams Construction Scheduler Relationship Specialty Start Date End Date Nupur Weir ANP [address] [place] [address] PCP - General Family Medicine 01/16/20 Abel Chavarria RN [address] [place] [address] [place] [address] Registered Nurse Family Medicine 02/26/25 Margareth Chavarria 02/26/25 documented as of this encounter
--- OUTSIDE RECORDS SUMMARY | 2025-06-13 16:29 | XMS_ITS | Encounter Summary ---
Author Organization [employer] Address [address] [facility] [address] 7t [place] [address] Care Team Providers Care Claim Processor Name Role Phone Nupur Weir Primary Care Provider [phone] Abel Chavarria RN Unavailable [phone] Margareth Chavarria Unavailable Reason for Visit * Reason Onset Date Comments Appointment Request 11/30/2024 Encounter Details Date Type Department Care Team (Late st Contact Info) Description 11/30/2024 Telephone [facility] 230 [place], [place] [phone] Nupur Weir ANP 230 [place], [place] [phone] Appointment Request Social History Tobacco Use Types [...] co ntrol worrying 2 12/01/2024 11:08 AM LORRAINET Kassy Ramsey RN Worrying too much about diff erent things 0 12/01/2024 11:08 AM Kassy Lay RN Trouble relaxing 1 12/01/2024 11:08 AM Kassy Lay RN Being so restless that it is hard to sit still 0 12/01/2024 11:08 AM Kassy Lay RN Becoming easily annoyed or irritable 1 12/01/2024 11:08 AM EDT Kassy Ramsey, ILENE Feeling afraid as if somethi ng awful might happen 0 12/01/2024 11:08 AM EDT Kassy Ramsey RN ROSALBA-7 Total Score 6 12/01/2024 11:08 AM EDT Kassy Ramsey, ILENE documented as of this encounter Miscellaneous Notes * Telephone Encounter - Chanel Whyte - 11/30/2024 11:07 AM EDT Tc from pt requesting to r/s RADIOLOGY NURSE appt. States has another appt around the same time at sleep medicine and pt informs takes bus and believes will not be able to make it on time. Would like to r/s for Wednesday. documented in this encounter Plan of Treatment Upcoming Encounters Date Type Department Care Team (Late st Contact Info) Description 07/10/2025 9:45 AM EST Office Visit [address] [address] 08/07/2025 9:45 AM EST Office Visit [address] [address] 08/14/2025 9:15 AM EST Office Visit [address] [address] Nupur Weir ANP 230 [place] [address] 09/28/2025 9:30 AM EST Medication Management [address] [address] Fay Leigh, PharmD 230 [place] [address] documented as of this encounter Visit Diagnoses Not on filedocumented in this encounter Care Teams Claim Processor Relationship Specialty Start Date End Date Nupur Weir ANP [address] [place] [address] PCP - General Family Medicine 01/16/20 Abel Chavarria RN [address] [place] [address] Registered Nurse Family Medicine 02/26/25 Margareth Chavarria 02/26/25 documented as of this encounter
--- OUTSIDE RECORDS SUMMARY | 2025-06-13 16:29 | XMS_ITS | Encounter Summary ---
Author Organization [employer] Address 75 [facility] [address] 7t [place] [address] Care Team Providers Care Electric Transfer Operator Name Role Phone Nupur Weir Primary Care Provider [phone] Abel Chavarria RN Unavailable [phone] Margareth Chavarria Unavailable Reason for Visit * Reason Onset Date Comments Med Refill 06/12/2025 Encounter Details Date Type Department Care Team (Late st Contact Info) Description 06/12/2025 Refill [facility] MED[facility]INE 230 [place] [address] Chika Longo RN Back pain, unspecified back location, unspecified back pain laterality, unspecified chronicity (Primary Dx) Social History Tobacco Use Types [...] 07/10/2025 9:45 AM EST Office Visit [address] [address] 08/07/2025 9:45 AM EST Office Visit [address] [address] 08/14/2025 9:15 AM EST Office Visit [address] [address] Nupur Weir ANP 230 [place] [address] 09/28/2025 9:30 AM EST Medication Management [address] [address] Fay Leigh, PharmD 230 [place] [address] documented as of this encounter Visit Diagnoses Diagnosis Back pain, unspecified back location, unspecified back pain laterality, unspecified chronicity- Primary documented in this encounter Additional Health Concerns Assessment Noted Time PHQ-9 Depression Total Score: 17 0814/2 025 10:08 AM EDT documented as of this encounter Care Teams Electric Transfer Operator Relationship Specialty Start Date End Date Nupur Weir ANP 230 [place] [address] PCP - General Family Medicine 01/16/20 Abel Chavarria RN [address] [place] [address] Registered Nurse Family Medicine 02/26/25 Margareth Chavarria 02/26/25 documented as of this encounter
--- OUTSIDE RECORDS SUMMARY | 2025-06-13 16:30 | XMS_ITS | Encounter Summary ---
Author Organization [email or web address] Address 75 [facility] [address] 7t [place] [address] Care Team Providers Care Truck Shop Supervisor Name Role Phone Nupur Weir Primary Care Provider [phone] Abel Chavarria RN Unavailable Margareth Chavarria Unavailable Reason for Visit * Reason Comments Med Refill Encounter Details Date Type Department Care Team (Late st Contact Info) Description 07/22/2024 Refill [facility] MED[facility]INE 230 [place], [place] [phone] Nupur Weir ANP 230 [place] [address] Social History Tobacco Use Types Packs/Day Years [...] Description 07/10/2025 9:45 AM EST Office Visit [address] [address] 08/07/2025 9:45 AM EST Office Visit [address] [address] 08/14/2025 9:15 AM EST Office Visit [address] [address] Nupur Weir ANP 230 [place] [address] 09/28/2025 9:30 AM EST Medication Management [address] [address] Fay Leigh, MayoD [address] [place] [address] documented as of this encounter Visit Diagnoses Not on filedocumented in this encounter Care Teams Truck Shop Supervisor Relationship Specialty Start Date End Date Nupur Weir ANP 230 [place] [address] PCP - General Family Medicine 01/16/20 Abel Chavarria, ILENE [address] [place] [address] Registered Nurse Family Medicine 02/26/25 Margareth Chavarria 02/26/25 documented as of this encounter
--- OUTSIDE RECORDS SUMMARY | 2025-06-13 16:30 | XMS_ITS | Encounter Summary ---
Author Organization [employer] Address [address] [facility] [address] 7t [place] [address] Care Team Providers Care Boiler Coverer Helper Name Role Phone Nupur Weir Primary Care Provider Abel Chavarria RN Unavailable [phone] Margareth Chavarria Unavailable Reason for Visit * Reason Comments Med Refill Encounter Details Date Type Department Care Team (Late st Contact Info) Description 12/22/2024 Refill [facility] MEDICINE 230 [place], [place] [phone] Nupur Weir ANP 230 [place] [address] Arthralgia, unspecified joint Social History Tobacco Use [...] Description 07/10/2025 9:45 AM EST Office Visit [address] [address] 08/07/2025 9:45 AM EST Office Visit [address] [address] 08/14/2025 9:15 AM EST Office Visit [address] [address] Nupur Weir, BATOOL 230 [place] [address] 09/28/2025 9:30 AM EST Medication Management [address] [address] Fay Leigh, MayoD 230 [place] [address] documented as of this encounter Visit Diagnoses Diagnosis Arthralgia, unspecified joint documented in this encounter Care Teams Boiler Coverer Helper Relationship Specialty Start Date End Date Nupur Weir ANP 230 [place], [place] [phone] PCP - General Family Medicine 01/16/20 Abel Chavarria, ILENE [address] [place] [address] Registered Nurse Family Medicine 02/26/25 Margareth Chavarria 02/26/25 documented as of this encounter
--- OUTSIDE RECORDS SUMMARY | 2025-06-13 16:30 | XMS_ITS | Encounter Summary ---
Author Organization [employer] Address [address] [facility] [address] 7t [place] [address] Care Team Providers Care Feed And Farm Management Adviser Name Role Phone Nupur Weir Primary Care Provider [phone] Abel Chavarria RN Unavailable Margareth Chavarria Unavailable Encounter Details Date Type Department Care Team (Late st Contact Info) Description 04/11/2024 Orders Only [facility] 230 [place], [place] [phone] Nupur Weir ANP 230 [place], [place] [phone] Social History Tobacco Use Types Packs/Day Years [...] Description 07/10/2025 9:45 AM EST Office Visit [address] [address] 08/07/2025 9:45 AM EST Office Visit [address] [address] 08/14/2025 9:15 AM EST Office Visit [address] [address] Nupur Weir ANP [address] [place] [address] 09/28/2025 9:30 AM EST Medication Management [address] [address] Fay Leigh, PharmD [address] [place] [address] documented as of this encounter Visit Diagnoses Not on filedocumented in this encounter Care Teams Feed And Farm Management Adviser Relationship Specialty Start Date End Date Nupur Weir ANP [address] [place] [address] PCP - General Family Medicine 01/16/20 Abel Chavarria RN [address] [place] [address] Registered Nurse Family Medicine 02/26/25 Margareth Chavarria 02/26/25 documented as of this encounter
--- OUTSIDE RECORDS SUMMARY | 2025-06-13 16:30 | XMS_ITS ---
Author Organization [employer] Address 75 [facility] 7 [place] [address] Care Team Providers Care Optical Laboratory Mechanic Name Role Phone Nupur Weir Primary Care Provider [phone] Abel Chavarria RN Unavailable [phone] Margareth Chavarria Unavailable CM Complex Status:Enrolled (Active) Start date:02/26/2025 Enrollment date:03/15/2025 Enrollment reason:ADT Feed Overview ED- Pt went to [facility] ED on 02/24/25. Case Team Name Relationship Phone Abel Chavarria RN(Responsible Staff) Registered Nurse [phone] Continued Care and Services Coordination
--- OUTSIDE RECORDS SUMMARY | 2025-06-13 16:30 | XMS_ITS | Encounter Summary ---
Author Organization [employer] Address 75 [facility] 7t [place] [address] Care Team Providers Care Stunt Woman Name Role Phone Nupur Weir Primary Care Provider [phone] Abel Chavarria RN Unavailable Margareth Chavarria Unavailable Encounter Details Date Type Department Care Team (Late st Contact Info) Description 07/30/2022 Abstract [facility] ADULT DENTAL 230 [place] [address] Dental, Provider, DDS Social History Tobacco Use [...] Description 07/10/2025 9:45 AM EST Office Visit [facility] [address] [place] [address] [phone] 08/07/2025 9:45 AM EST Office Visit [facility] [address] [place] [address] [phone] 08/14/2025 9:15 AM EST Office Visit [facility] [address] [place] [address] [phone] Nupur Weir ANP 230 [place] [address] 09/28/2025 9:30 AM EST Medication Management [facility] 230 [place] [address] Fay Leigh, PharmD 230 [place] [address] documented as of this encounter Procedures Procedure [...] on filedocumented in this encounter Care Teams Stunt Woman Relationship Specialty Start Date End Date Nupur Weir ANP 230 [place] [address] PCP - General Family Medicine 01/16/20 Abel Chavarria, ILENE [address] [place] [address] Registered Nurse Family Medicine 02/26/25 Margareth Chavarria 02/26/25 documented as of this encounter
--- OUTSIDE RECORDS SUMMARY | 2025-06-13 16:30 | XMS_ITS | Encounter Summary ---
Author Organization [employer] Address 75 [facility] 7t [place] [address] Care Team Providers Care Escalator Installer Name Role Phone Nupur Weir Primary Care Provider Abel Chavarria RN Unavailable [phone] Margareth Chavarria Unavailable Encounter Details Date Type Department Care Team (Late st Contact Info) Description 08/14/2022 Abstract [facility] ADULT DENTAL 230 [place] [address] Angel Lagos, CAPRI 230 [place] [address] Social History Tobacco Use Types Packs/Day Years [...] Description 07/10/2025 9:45 AM EST Office Visit [facility] MED[facility] [address] [place] [address] 08/07/2025 9:45 AM EST Office Visit [address] [phone] 08/14/2025 9:15 AM EST Office Visit [address] [address] Nupur Weir ANP [address] [place] [address] 09/28/2025 9:30 AM EST Medication Management [address] [address] Fay Leigh PharmD [address] [place] [address] [phone] documented as of this encounter Visit Diagnoses Not on filedocumented in this encounter Care Teams Escalator Installer Relationship Specialty Start Date End Date Nupur Weir ANP [address] [place] [address] [phone] PCP - General Family Medicine 01/16/20 Abel Chavarria RN [address] [place] [address] Registered Nurse Family Medicine 02/26/25 Margareth Chavarria 02/26/25 documented as of this encounter
--- OUTSIDE RECORDS SUMMARY | 2025-06-13 16:30 | XMS_ITS | Encounter Summary ---
Author Organization [employer] Address [address] [facility] [address] 7t [place] [address] Care Team Providers Care Automatic Outsole Cutter Name Role Phone Nupur Weir Primary Care Provider [phone] Abel Chavarria RN Unavailable [phone] Margareth Chavarria Unavailable Encounter Details Date Type Department Care Team (Late st Contact Info) Description 07/05/2024 Telephone [facility] ADULT DENTAL 230 [place] [address] Yarelis Rosales DDS 230 [place] [address] Social History Tobacco Use Types Packs/Day Years [...] Description 07/10/2025 9:45 AM EST Office Visit [facility] MEDICINE [address] [place] [address] 08/07/2025 9:45 AM EST Office Visit [address] [address] 08/14/2025 9:15 AM EST Office Visit [address] [address] Nupur Weir ANP [address] [place] [address] 09/28/2025 9:30 AM EST Medication Management [address] [address] Fay Leigh, MayoD 230 [place] [address] documented as of this encounter Visit Diagnoses Not on filedocumented in this encounter Care Teams Automatic Outsole Cutter Relationship Specialty Start Date End Date Nupur Weir ANP 230 [place] [address] PCP - General Family Medicine 01/16/20 Abel Chavarria, ILENE 505 [place] [address] Registered Nurse Family Medicine 02/26/25 Margareth Chavarria 02/26/25 documented as of this encounter
--- OUTSIDE RECORDS SUMMARY | 2025-06-13 16:30 | XMS_ITS | Encounter Summary ---
Author Organization [employer] Address 75 [facility] [address] 7t [place] [address] Care Team Providers Care Solution Lead Name Role Phone Nupur Weir Primary Care Provider [phone] Abel Chavarria RN Unavailable [phone] Margareth Chavarria Unavailable Reason for Visit * Reason Comments Med Refill Encounter Details Date Type Department Care Team (Late st Contact Info) Description 06/19/2024 Refill [facility] MEDICINE 230 [place], [place] [phone] Nupur Weir ANP 230 [place] [address] Other specified hypothyroidism Social History Tobacco Use [...] Description 07/10/2025 9:45 AM EST Office Visit [address] [address] 08/07/2025 9:45 AM EST Office Visit [address] [address] 08/14/2025 9:15 AM EST Office Visit [address] [address] Nupur Weir ANP [address] [place] [address] 09/28/2025 9:30 AM EST Medication Management [address] [address] Fay Leigh, PharmD [address] [place] [address] documented as of this encounter Visit Diagnoses Diagnosis Other specified hypothyroidism documented in this encounter Care Teams Solution Lead Relationship Specialty Start Date End Date Nupur Weir ANP [address] [place] [address] PCP - General Family Medicine 01/16/20 Abel Chavarria, ILENE [address] [place] [address] Registered Nurse Family Medicine 02/26/25 Margareth Chavarria 02/26/25 documented as of this encounter
--- OUTSIDE RECORDS SUMMARY | 2025-06-13 16:30 | XMS_ITS | Encounter Summary ---
Author Organization [employer] Address [address] [facility] [address] 7t [place] [address] Care Team Providers Care Coin Dealer Name Role Phone Nupur Weir Primary Care Provider [phone] Abel Chavarria RN Unavailable [phone] Margareth Chavarria Unavailable Reason for Visit * Reason Comments Med Refill Encounter Details Date Type Department Care Team (Late st Contact Info) Description 03/22/2024 Refill [facility] MEDICINE 230 [place], [place] [phone] Marcella Colindres MD 230 [place] [address] Acute pyelonephritis Social History Tobacco Use Types [...] Description 07/10/2025 9:45 AM EST Office Visit [address] [address] 08/07/2025 9:45 AM EST Office Visit [address] [address] 08/14/2025 9:15 AM EST Office Visit [address] [address] Nupur Weir ANP [address] [place] [address] 09/28/2025 9:30 AM EST Medication Management [address] [address] Fay Leigh, PharmD [address] [place] [address] documented as of this encounter Visit Diagnoses Diagnosis Acute pyelonephritis 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
--- OUTSIDE RECORDS SUMMARY | 2025-06-13 16:30 | XMS_ITS | Encounter Summary ---
Author Organization [employer] Address [address] [facility] [address] 7t [place] [address] Care Team Providers Care Academic Administrator Name Role Phone Nupur Weir Primary Care Provider [phone] Abel Chavarria RN Unavailable [phone] Margareth Chavarria Unavailable Reason for Visit * Reason Onset Date Comments Med Refill 12/22/2024 Encounter Details Date Type Department Care Team (Late st Contact Info) Description 12/22/2024 Telephone [facility] MEDICINE 230 [place], [place] [phone] Nupur Weir ANP 230 [place], [place] [phone] Med Refill Social History Tobacco Use Types [...] 50 MG tablet To be sent to: [facility] [place], [place] - [address] [place] [address] documented in this encounter Plan of Treatment Upcoming Encounters Date Type Department Care Team ([facility] st Contact Info) Description 07/10/2025 9:45 AM EST Office Visit [facility] MED[facility]INE [address] [place] [address] 08/07/2025 9:45 AM EST Office Visit [facility] MED[facility]INE [address] [place] [address] 08/14/2025 9:15 AM EST Office Visit [address] [address] Nupur Weir ANP [address] [place] [address] 09/28/2025 9:30 AM EST Medication Management [address] [address] Fay Leigh, MayoD [address] [place] [address] documented as of this encounter Visit Diagnoses Not on filedocumented in this encounter Care Teams Academic Administrator Relationship Specialty Start Date End Date Nupur Weir ANP [address] [place] [address] PCP - General Family Medicine 01/16/20 Abel Chavarria, ILENE [address] [place] [address] Registered Nurse Family Medicine 02/26/25 Margareth Chavarria 02/26/25 documented as of this encounter
--- OUTSIDE RECORDS SUMMARY | 2025-06-13 16:30 | XMS_ITS | Encounter Summary ---
Author Organization [employer] Address 75 [facility] 7t [place] [address] Care Team Providers Care Furnace Tapper Name Role Phone Nupur Weir Primary Care Provider [phone] Abel Chavarria RN Unavailable Margareth Chavarria Unavailable Encounter Details Date Type Department Care Team (Latest Contact Info) Description 03/26/2022 Abstract [facility] CON[facility] Dental, Provider, DDS Social History [...] Description 07/10/2025 9:45 AM EST Office Visit [facility] MEDICINE [address] [place] [address] [phone] 08/07/2025 9:45 AM EST Office Visit [facility] MED[facility] [address] [place] [address] [phone] 08/14/2025 9:15 AM EST Office Visit [facility] MED[facility]INE [address] [place] [address] Nupur Weir ANP 230 [place], [place] [phone] 09/28/2025 9:30 AM EST Medication Management [facility] MEDICINE 230 [place], [place] [phone] Fay Leigh, [place] 230 [place] [address] documented as of this encounter Visit Diagnoses Not on filedocumented in this encounter Care Teams Furnace Tapper Relationship Specialty Start Date End Date Nupur Weir ANP 230 [place] [address] PCP - General Family Medicine 01/16/20 Abel Chavarria, ILENE [address] [place] [address] Registered Nurse Family Medicine 02/26/25 Margareth Chavarria 02/26/25 documented as of this encounter
--- OUTSIDE RECORDS SUMMARY | 2025-06-13 16:30 | XMS_ITS ---
Author Organization [employer] Address 75 [facility] 7 [place] [address] Care Team Providers Care Cut Off Man Name Role Phone Nupur Weir Primary Care Provider [phone] Abel Chavarria RN Unavailable [phone] Margareth Chavarria Unavailable CHW Complex Status:Enrolled (Active) Start date:02/26/2025 Enrollment date:03/15/2025 Enrollment reason:ADT Feed Overview ED- Pt went to [facility] ED on 02/24/25. Please outreach for enrollment. [place] Case Team Name Relationship Phone Margareth Chavarria(Responsible Staff) [phone] Continued Care and Services Coordination
--- OUTSIDE RECORDS SUMMARY | 2025-06-13 16:31 | XMS_ITS | Encounter Summary ---
Author Organization [employer] Address [address] [facility] [address] 7t [place] [address] Care Team Providers Care Health Care Technician Name Role Phone Nupur Weir Primary Care Provider [phone] Abel Chavarria RN Unavailable [phone] Margareth Chavarria Unavailable Encounter Details Date Type Department Care Team (Late st Contact Info) Description 04/05/2025 Orders Only [facility] 230 [place], [place] [phone] Jaleel Block MD 230 [place], [place] [phone] Right-sided chest pain (Primary Dx); Hemoptysis Social [...] Description 07/10/2025 9:45 AM EST Office Visit [address] [address] 08/07/2025 9:45 AM EST Office Visit [address] [address] 08/14/2025 9:15 AM EST Office Visit [address] [address] Nupur Weir ANP 230 [place] [address] 09/28/2025 9:30 AM EST Medication Management [address] [address] Fay Leigh, PharmD 230 [place] [address] documented as of this encounter Procedures Procedure Name Priority Date/Time Associated Diagnosis Comments CULTURE, URINE, ROUTINE Routine 04/05/2025 12:00 AM EDT Right-sided chest pain documented in this encounter Results * Culture, Urine, Routine (04/05/2025 12:00 AM EDT) Urine Urine specimen obtained by clean catch procedure / Unknown 04/05/2025 04/05/2025 Comment:UACC Narrative [facility] - 04/06/2025 10:53 AM EDT Urine Culture No growth. Specimen Source: Urine clean catch us Generic External Data Provider LAB MICROBIOLOGY - GENERAL ORDERABLES Final Result [facility] [address] [place] [address] [phone] documented in this encounter Visit Diagnoses Diagnosis Right-sided chest pain- Primary Hemoptysis documented in this encounter Additional Health Concerns Assessment Noted Time PHQ-9 Depression Total Score: 7 03/15/20 25 3:29 PM EDT documented as of this encounter Care Teams Health Care Technician Relationship Specialty Start Date End Date Nupur Weir ANP 230 [place] [address] PCP - General Family Medicine 01/16/20 Abel Chavarria, ILENE [address] [place] [address] Registered Nurse Family Medicine 02/26/25 Margareth Chavarria 02/26/25 documented as of this encounter
--- OUTSIDE RECORDS SUMMARY | 2025-06-13 16:31 | XMS_ITS | Patient Health Record ---
Author Organization [facility] Address [address] [place] [address] Care Team Providers Care Senior Procurement Manager Name Role Phone MICHAEL YANEZ N.P. Primary Care Provider Fidencio Langley Jr Unavailable Allergies Allergen (clinical drug ingredient) Drug/Non Drug Allergy documented on EMR Reaction Allergy Type Onset Date Status fentanyl fentaNYL Unknown Drug Allergy Active Results Component Value Reference Range Notes Complete Blood Count Auto Di ff Reviewed date:07/17/2024 08:00:34 AM Interpretation: Performing Lab:[facility], [address] [place] [phone] Notes/Report: White Blood Count 5.3 4.8-10.8 X10*3/uL [...] Panel Reviewed date:07/17/2024 08:00:27 AM Interpretation: Performing Lab:[facility], [address] [place] [phone] Notes/Report: Bilirubin Total 0.7 0.0-1.0 mg/dL Bilirubin Direct 0.3 0.0-0.5 mg/dL Aspartate Amino Transferase 21 5-31 U/L Alanine Aminotransferase 17 0-31 U/L Total Protein 6.4 6.5-8.0 g/dL Albumin Level 3.7 3.5-5.0 g/dL Alkaline Phosphatase 104 39-117 U/L Lipase Reviewed date:07/17/2024 08:00:21 AM Interpretation: Performing Lab:[facility], [address] [place] [phone] Notes/Report: Lipase 14 8-78 U/L Thyroid Stimulating Hormone Reviewed date:07/17/2024 08:00:15 AM Interpretation: Performing Lab:[facility], [address] [place] [phone] Notes/Report: Thyroid Stimulating Hormone 0.97 0.32-4.0 uIU/ mL TSH 3rd Generation ([facility]) Reason For Referral No Information Medications Medication SIG (Take, Route, Frequency, Duration) Notes Start Date End Date Status Vitamin C Active Vitamin B-2 Active Ferrous Sulfate 325 (65 Fe) MG Oral; Duration: 90 D509,Unavaila ble Active Levothyroxine Sodium Active hydrOXYzine Pamoate 50 MG TAKE 1 CAPSULE BY MOUTH AT BEDTIME. TAKE 1 CAPSULE 2 TIMES PER DAY NEEDED FOR INCREASED ANXIETY Oral; Duration: 30 Active Flovent HFA 110 MCG/ACT INHALE 1 PUFF BY MOUTH TWICE DAILY Inhalation; Duration: 60 prn Active Vitamin B12 Active Cyclobenzaprine HCl prn Active Dicyclomine HCl 10 MG 1 tablet Orally 2- 4 times a day 07/14/2024 Active ProAir HFA 8.5gm Act jermain Pantoprazole Sodium 40 MG TAKE 1 TABLET BY MOUTH EVERY DAY; Duration: 90 Active Calcium Citrate Acti ve traMADol HCl 50 MG Oral; Duration: 7 M2550,Unava il able Active Gabapentin 100 MG TAKE 1 CAPSULE BY MOUTH FOUR TIMES DAILY Diagnosis Unavailable Oral; Duration: 30 Active Vitamin D 1000units Active Magnesium Oxide 400 MG TAKE 1 TABLET BY MOUTH DAILY Oral; Duration: 90 Active Topiramate 50 MG TAKE 1 TABLET BY MOUTH FOUR TIMES DAILY Oral; Duration: 90 Unknown Immunizations Vaccine Route Administration Date Status Comme nts Influenza Unknown 12/14/2018 Refused Influenza Unknown 11/30/2022 Refused Problems Problem Type SNOMED Code ICD Code Onset Dates Problem Status W/U Status Risk Notes Problem Colon cancer screening (294974100) Colon cancer screening (Z12.11) Active confirmed Problem Rectal bleeding (59353539) Rectal bleeding (K62.5) Active confirmed Problem Epigastric pain (22035288) Epigastric pain (R10.13) Active confirmed Problem Dysphagia (79251402) Dysphagia (R13.10) Active confirmed Problem Elevated liver enzymes level (761666441) Elevated LFTs (R79.89) Active confirmed Problem Gastroesophageal reflux disease without esophagitis (199890845) Gastroesophageal reflux disease without esophagitis (K21.9) Active confirmed Problem Dysphagia (64779802) Dysphagia, unspecified type (R13.10) Active confirmed Vital Signs Blood pressure diastolic 00 mm Hg 07/14/2024 Height 64.5 in 07/14/2024 Blood pressure systolic 00 mm Hg 07/14/2024 Weight 153 lbs 07/14/2024 BMI 25.85 kg/m2 07/14/2024 Encounters Encounter Location Date Provider Diagnosis [facility] [address] [place] [phone] 07/14/2024 Fidencio Vila Jr Abdominal cramping R10.[address] [facility] [address] [place] [address] 07/17/2024 Fidencio Vila Jr Assessments Encounter Date [...] 12/01/2023 Next Appt Details Provider Name:Fidencio haider Jr, 07/18/2025 11:20:00 AM, [address], [address], [place], [address], Insurance Providers Payer Name Payer Address Payer Phone Subscriber Number Group Number Insured Name Patient Relationship to Insured Coverage Start Date Coverage End Date MEDICA[employer] [facility] [address] [place] [phone] [id number] JAYSON TAY Self - patient is the insured Medical [...] partial hysterectomy tonsillectomy cancer in uterus x2 [phone] Laparoscopic bypass surgery 11/14 removed two cyst removed fro m right shouder and outer colon =dr. jones
--- OUTSIDE RECORDS SUMMARY | 2025-06-13 16:31 | XMS_ITS | Encounter Summary ---
Author Organization [employer] Address [address] [facility] 7[address] [place] [address] Care Team Providers Care Lamp Mechanic Name Role Phone Nupur Weir Primary Care Provider Abel Chavarria RN Unavailable [phone] Margareth Chavarria Unavailable Reason for Visit * Reason Onset Date Comments Med Refill 05/14/2023 Encounter Details Date Type Department Care Team (Late st Contact Info) Description 05/14/2023 Telephone [facility] MED[facility]INE [address] [place], [place] [phone] Nupur Weir ANP [address] [place], [place] [phone] Med Refill Social History Tobacco Use Types [...] 07/10/2025 9:45 AM EST Office Visit [address] [address] 08/07/2025 9:45 AM EST Office Visit [address] [address] 08/14/2025 9:15 AM EST Office Visit [address] [address] Nupur Weir ANP [address] [place] [phone] 09/28/2025 9:30 AM EST Medication Management [address] [address] Fay Leigh, PharmD [address] [place] [phone] documented as of this encounter Visit Diagnoses Not on filedocumented in this encounter Care Teams Lamp Mechanic Relationship Specialty Start Date End Date Nupur Weir ANP [address] [place] [phone] PCP - General Family Medicine 01/16/20 Abel Chavarria, RN [address] [place] [phone] Registered Nurse Family Medicine 02/26/25 Margareth Chavarria 02/26/25 documented as of this encounter
--- OUTSIDE RECORDS SUMMARY | 2025-06-13 16:31 | XMS_ITS | Encounter Summary ---
Author Organization [employer] Address [address] [facility] [address] [place] [address] Care Team Providers Care Pathology Transcriptionist Name Role Phone Nupur Weir Primary Care Provider [phone] Abel Chavarria RN Unavailable [phone] Margareth Chavarria Unavailable Reason for Visit * Reason Onset Date Comments Med Refill 07/26/2024 Encounter Details Date Type Department Care Team (Late st Contact Info) Description 07/26/2024 Telephone [facility] MEDICINE [address] [place], [place] [phone] Nupur Weir ANP [address] [place], [place] [phone] Med Refill Social History Tobacco Use Types [...] 50 MG tablet To be sent to: [id number] - [place], [place] - [address] [facility] documented in this encounter Plan of Treatment Upcoming Encounters Date Type Department Care Team ([facility] st Contact Info) Description 07/10/2025 9:45 AM EST Office Visit [facility] [address] [place] [address] 08/07/2025 9:45 AM EST Office Visit [facility] [address] [place] [phone] 08/14/2025 9:15 AM EST Office Visit [address] [address] Nupur Weir ANP [address] [place] [phone] 09/28/2025 9:30 AM EST Medication Management [address] [address] Fay Leigh, MayoD [address] [place] [phone] documented as of this encounter Visit Diagnoses Not on filedocumented in this encounter Care Teams Pathology Transcriptionist Relationship Specialty Start Date End Date Nupur Weir ANP [address] [place] [phone] PCP - General Family Medicine 01/16/20 Abel Chavarria, ILENE [address] [place] [address] Registered Nurse Family Medicine 02/26/25 Margareth Chavarria 02/26/25 documented as of this encounter
--- OUTSIDE RECORDS SUMMARY | 2025-06-13 16:31 | XMS_ITS | Encounter Summary ---
Author Organization [employer] Address [address] [facility] [address] [place] [address] Care Team Providers Care Atomic Physics Professor Name Role Phone Nupur Weir Primary Care Provider [phone] Abel Chavarria RN Unavailable [phone] Margareth Chavarria Unavailable Reason for Visit * Reason Onset Date Comments Med Refill 01/19/2025 Encounter Details Date Type Department Care Team (Late st Contact Info) Description 01/19/2025 Telephone [facility] MEDICINE [address] [place], [place] [phone] Nupur Weir ANP [address] [place], [place] [phone] Med Refill Social History Tobacco Use Types [...] Upcoming Encounters Date Type Department Care Team ([facility] st Contact Info) Description 07/10/2025 9:45 AM EST Office Visit [facility] [address] [place] [address] 08/07/2025 9:45 AM EST Office Visit [address] [address] 08/14/2025 9:15 AM EST Office Visit [address] [address] Nupur Weir ANP [address] [place] [phone] 09/28/2025 9:30 AM EST Medication Management [address] [address] Fay Leigh PharmD [address] [place] [address] documented as of this encounter Visit Diagnoses Not on filedocumented in this encounter Care Teams Atomic Physics Professor Relationship Specialty Start Date End Date Nupur Weir ANP [address] [place] [address] PCP - General Family Medicine 01/16/20 Abel Chavarria RN [address] [place] [address] Registered Nurse Family Medicine 02/26/25 Margareth Chavarria 02/26/25 documented as of this encounter
--- OUTSIDE RECORDS SUMMARY | 2025-06-13 16:31 | XMS_ITS | Clinical Summary ---
Author Organization [employer] Address [address] [facility] [address] [place] [address] Care Team Providers Care Bungy Jump Master Name Role Phone Michael Yanez Primary Care Provider [phone] Abel Chavarria RN Unavailable [phone] Margareth Chavarria Unavailable Allergies Active Allergy Reactions [...] by mouth Once per day. 024 Active solifenacin (VESIcare) 5 MG tablet Take 1 tablet by mouth Once per day. 024 Active topiramate (Topamax) 100 MG tablet Take [...] medical assistance becomes available. 2 each 2 2025 Active levothyroxine (Synthroid, Levoxyl) 25 MCG tabletIndications :Other specified hypothyroidism TAKE 1 TABLET BY MOUTH EVERY MORNING BEFORE BREAKFAST 90 tablet 1 025 Active Mometasone Furoate (Asmanex HFA) 100 MCG/ACT aerosol INHALE 1 PUFF EVERY TWELVE HOURS 13 g 1 025 Active cyclobenzaprine (Flexeril) 10 MG tablet Take 1 tablet (10 mg) by mouth at bedtime for 10 days. 10 tablet 025 Active losartan (Cozaar) 50 MG [...] TO 12 HOURS 30 patch 1 Active ferrous sulfate (Fe Tabs) 325 (65 [...] IN EACH NOSTRIL ONCE DAILY 16 g 025 Active ibuprofen 400 MG tablet Take 1 tablet (400 mg) by mouth every 6 (six) hours if needed for moderate pain or fever for up to 30 doses. 30 tablet Active acetaminophen (Tylenol 8 Hour) 650 MG ER tablet Take 1 tablet (650 mg) by mouth every 8 (eight) hours if needed for mild pain. Do not crush, chew, or split. 40 tablet 025 2024 Active Ascorbic Acid (vitamin C) 500 MG tabletIndications :Iron deficiency anemia, unspecified iron deficiency anemia type TAKE 1 TABLET BY MOUTH EVERY EVENING WITH IRON supplement 90 tablet Active traMADol (Ultram) 50 MG tabletIndications :Back pain, unspecified back location, unspecified back pain laterality, unspecified chronicity Take 1 tablet (50 mg) by mouth every 8 (eight) hours if needed for severe pain for up to 7 days. 21 tablet 2024 Active SUMAtriptan Succinate 4 MG/0.5ML solution [...] per day. 30 tablet 025 2024 Discontinued Ascorbic Acid (vitamin C) 500 MG tabletIndications :Iron deficiency anemia, unspecified iron deficiency anemia type TAKE 1 TABLET BY MOUTH EVERY EVENING WITH IRON supplement 90 tablet 025 2024 Discontinued(R eorder (will not [...] to 7 days. 21 tablet 025 2024 acetaminophen (Tylenol 8 Hour) 650 MG ER tablet Take 1 tablet (650 mg) by mouth every 8 (eight) hours if needed for mild pain. Do not crush, chew, or split. 40 tablet 1 025 2024 Discontinued(R eorder (will not trigger notification to Pharmacy)) doxycycline (Vibramycin) 100 MG capsule Take 1 capsule (100 mg) by mouth 2 times daily for 7 days. 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 Assessment & Plan (06/12/2025 12:47 PM EDT): Timeline: - 05/08/25: Group - utox/pill count as expected - 06/12/25: Group - utox/pill count as expected Assessment & Plan (05/08/2025 12:44 PM EDT): [...] 03/10/2012 Lumbar spondylosis 03/10/2012 Assessment & Plan (06/12/2025 12:48 PM EDT): Chronic low back pain, XR Lumbar spine Aug 2024 demonstrates moderate degenerative changes in the lumbar spine most pronounced at L5-S1 Good engagement and participation with Group Medical Visit model Encouraged multifactorial approach to pain control including pharm and non-pharm modalities Pill count and UTOX as expected Assessment & Plan (05/08/2025 12:44 PM EDT): [...] Pill count as expected. UTOX unexpected. See marketing finance specialist. Send out MTD and BZO confirmatory. Possible [...] organization. Date Type Department Care Team Description 06/12/2025 9:45 AM EDT Office Visit [facility] [address] [place] [address] Anushka Gunter FNP Lumbar spondylosis (Primary Dx); Long-term current use of opiate analgesic 06/12/2025 Refill [facility] [address] [place] [address] [phone] Chika Longo RN Back pain, unspecified back location, unspecified back pain laterality, unspecified chronicity (Primary Dx) 06/12/2025 Travel 06/07/2025 Patient Outreach [facility] [address] [place] [phone] Michael Yanez ANP Care Management (C3CM- f/u call lvm) 06/06/2025 Patient Outreach [facility] [address] [place] [phone] Michael Yanez ANP Care Coordination (C3CM/CHW KHUSHBU Edwards-Follow up) 06/05/2025 9:00 AM EDT Office Visit [facility] [address] [place] [address] 11821 Jaleel Block MD Wound infection (Primary Dx) 06/05/2025 Refill [facility] [address] [place] [address] 67[address] Michael Yanez ANP Iron deficiency anemia, unspecified iron deficiency anemia type 05/31/[address] [address] Michael Yanez ANP dec recall 05/29/2025 Patient Outreach [address] [address] Michael Yanez ANP Care Management (C3- f/u call) 05/25/2025 10:00 AM EDT Office Visit [facility] [address] [place] [address] [phone] Cecilia Johnson DO Pain and swelling of right lower leg (Primary Dx); Subcutaneous mass; Long-term current use of opiate analgesic; Back pain, unspecified back location, unspecified back pain laterality, unspecified chronicity 05/25/2025 Results Follow-Up [address] [address] Michael Yanez ANP US VENOUS DUPLEX LE RT, US Extremity Non Vascular Complete Joint Right 05/25/2025 Orders Only [address] [address] Cecilia Johnson DO 05/25/2025 Travel 05/25/2025 Refill [facility] [address] [place] [address] Marcella Colindres MD 05/25/2025 Refill [facility] [address] [place] [address] 52896 Jaleel Block MD 05/23/2025 Patient Outreach [address] [address] Michael Yanez ANP Care Coordination (C3/W KHUSHBU Edwards- follow up call) 05/23/[address] [address] Michael Yanez ANP Migraine with aura and without status migrainosus, not intractable 05/15/2025 9:15 AM EDT Office Visit [address] [address] Michael Yanez ANP Cat bite, subsequent encounter (Primary Dx); Pure hypercholesterolemi a; Primary hypertension; Hypothyroidism, unspecified type 05/15/2025 Patient Outreach [address] [address] Michael Yanez ANP Care Management (C3CM- f/u call) 05/15/2025 Travel 05/14/[address] [address] Michael Yanez ANP chart prep 05/14/[address] [address] Julianne Anne RN AB Status Check 05/14/2025 Patient Outreach [address] [phone] Michael Yanez ANP 05/13/2025 Orders Only GENERIC EXTERNAL DATA DEPARTMENT Provider, Generic External Data 05/11/2025 Patient Outreach [address] [address] Michael Yanez ANP 05/09/2025 5:40 PM EDT Office Visit [facility] [address] [place] [address] Michael Yanez ANP Cat bite, subsequent encounter (Primary Dx); Puncture wound of calf, right, subsequent encounter 05/09/2025 Travel 05/08/2025 9:45 AM EDT Office Visit [address] [address] Anushka Gunter, KYLER Lumbar spondylosis (Primary Dx); Long-term current use of opiate analgesic 05/08/2025 Refill [facility] [address] [place] [address] Kassy Ramsey, ILENE Long-term current use of opiate analgesic; Back pain, unspecified back location, unspecified back pain laterality, unspecified chronicity 05/08/2025 Travel 05/07/2025 Patient Outreach [address] [address] Michael Yanez ANP Care Coordination (C3/CHW KHUSHBU Edwards- Appt reminder/PT-1 update) 05/06/2025 Results Follow-Up [facility] [address] [place] [address] Jaleel Block MD CTA Chest PE Protocal 05/03/2025 Patient Outreach [address] [address] Michael Yanez ANP Care Coordination (C3/CHW KHUSHBU Edwards-Follow up/PT-1) 05/03/2025 Patient Outreach [address] [address] Michael Yanez ANP Care Management (C3CM- f/u call) 05/01/2025 Orders Only [facility] [address] [place] [address] 11604 Jaleel Block MD 04/25/2025 Patient Outreach [address] [address] Michael Yanez ANP 04/23/2025 Patient Outreach [address] [address] Michael Yanez ANP Care Management (C3CM- f/u call) 04/18/[address] [address] Michael Yanez ANP Long-term current use of opiate analgesic; Back pain, unspecified back location, unspecified back pain laterality, unspecified chronicity 04/17/2025 10:30 AM EDT Clinical Support [facility] [address] [place] [address] Kassy Ramsey, RN Long-term current use of opiate analgesic (Primary Dx) 04/17/2025 Refill [facility] [address] [place] [address] Michael Yanez ANP Iron deficiency anemia, unspecified iron deficiency anemia type 04/17/[address] [facility] [address] [place] [address] Kassy Ramsey RN 04/17/2025 Travel 04/16/2025 Refill [facility] [address] [place] [address] 297[address] Michael Yanez ANP Iron deficiency anemia, unspecified iron deficiency anemia type 04/11/2025 4:00 PM EDT Office Visit [address] [address] Michael Yanez ANP Primary hypertension (Primary Dx); RUQ pain 04/11/2025 Orders Only GENERIC EXTERNAL DATA DEPARTMENT Provider, Generic External Data 04/11/2025 Travel 04/10/2025 9:45 AM EDT Office Visit [address] [address] Anushka Gunter, BOWLING TEACHER Lumbar spondylosis (Primary Dx); Long-term current use of opiate analgesic 04/10/2025 Patient Outreach [address] [address] Michael Yanez ANP Care Coordination (C3/CHW KHUSHBU Edwards- Appt reminder) 04/10/[address] [facility] [address] [place] [address] Kassy Ramsey RN 04/10/[address] [address] Jaleel Block MD CTA Chest order 04/10/[address] [address] Michael Yanez ANP CHART PREP 04/10/[address] [facility] [address] [place] [address] Kassy Ramsey RN 04/10/2025 Travel 04/10/[address] [address] Michael Yanez ANP ER Follow-up 04/09/2025 Patient Outreach [address] [address] Michael Yanez ANP Care Management (C3- f/u call) 04/09/2025 Patient Outreach [address] [address] Michael Yanez ANP 04/06/2025 Patient Outreach [address] [address] Michael Yanez ANP Pre-visit Planning (SDOH screening completed on 02/26/25 ) 04/05/2025 Patient Outreach [address] [address] Michael Yanez ANP 04/05/2025 Telephone [facility] [address] [place] [address] 20854 Jaleel Block MD 04/05/2025 Orders [facility] [address] [address] Jaleel Block MD Right-sided chest pain (Primary Dx); Hemoptysis 04/05/2025 Orders Only [facility] External Provider, [facility] 04/04/2025 9:40 AM EDT [facility] [address] [address] Jaleel Block MD Right-sided chest pain (Primary Dx); Hemoptysis 04/04/2025 Telephone [facility] [address] [address] Jaleel Block MD 04/04/2025 Orders Only [facility] [address] [address] Jaleel Block MD 04/04/[address] [facility] [address] [place] [address] Jaleel Block MD 04/04/2025 Travel 03/28/2025 Patient Outreach [address] [address] Michael Yanez ANP Care Coordination (C3/W KHUSHBU Edwards- PT-1 Coordination) 03/27/2025 Patient Outreach [address] [address] Michael Yanez ANP Care Management (C3CM- f/u call) 03/22/2025 Orders Only GENERIC EXTERNAL DATA DEPARTMENT Provider, Generic External Data 03/22/2025 Travel 03/22/[address] [address] Michael Yanez ANP Long-term current use of opiate analgesic (Primary Dx); Back pain, unspecified back location, unspecified back pain laterality, unspecified chronicity 03/21/2025 Patient Outreach [address] [address] Michael Yanez ANP Care Coordination ([facility]/KHUSHBU Jurado-Appt reminder-[facility]) 03/19/2025 Refill [facility] [address] [place] [address] Michael Yanez ANP Arthralgia, unspecified joint 03/16/2025 Patient Outreach [address] [address] Michael Yanez ANP Care Coordination ([facility]/MONTY Chavarria-KHUSHBU- Booked PT-1 for upcoming appt to [facility]) 03/15/2025 Patient Outreach [address] [address] Michael Yanez ANP Care Management ([facility]- initial assessment/ enrollment/) 03/15/[address] [address] Berkley Hinkle, ILENE 03/15/2025 Plan of Care Documentation [address] [address] 03/14/[address] [address] Michael Yanez ANP Iron deficiency anemia, unspecified iron deficiency anemia type; Primary hypertension 03/13/2025 Patient Outreach [address] [address] Michael Yanez ANP Care Coordination ([facility]/KHUSHBU Jurado- Complex Care [place] Appt Reminder) from Last 3 Months Immunizations Immunization Administration [...] Sign Reading Time Taken Comments Blood Pressure 97/70 06/05/2025 8:37 AM EDT Pulse 73 06/05/2025 8:37 AM EDT Temperature 36.7 C (98 F) 06/05/2025 8:37 AM EDT Respiratory Rate 18 06/05/2025 8:37 AM EDT Oxygen Saturation 100% 06/05/2025 8:37 AM EDT Inhaled Oxygen Concentration - - Weight 64.2 kg (141 lb 9.6 oz) 06/05/2025 8:37 A M EDT Height 165.1 cm (5' 5 ) 05/15/2025 8:57 AM EDT Body Mass Index 23.56 05/15/2025 8:57 AM EDT Plan of Treatment Upcoming Encounters Date Type Department Care Team (Late st Contact Info) Description 07/10/2025 9:45 AM EST Office Visit [address] [address] 08/07/2025 9:45 AM EST Office Visit [address] [address] 08/14/2025 9:15 AM EST Office Visit [address] [address] Michael Yanez ANP [address] [place] [address] 09/28/2025 9:30 AM EST Medication Management [address] [address] Fay Leigh, PharmD [address] [place] [address] Health Maintenance Due Date Last Done Comments [...] 11/09/2018 SDOH Screening 02/26/2026 02/26/2025 Tobacco Screening 06/05/2026 06/05/2025 Lipid Panel 08/25/2029 08/25/2024, 12/08/2021 Colonoscopy 12/28/2033 [...] current use of opiate analgesic Lumbar spondylosis US EXTREMITY NON VASCULAR COMPLETE JOINT RIGHT [...] URINE, ROUTINE Routine 03/22/2025 11:18 AM EDT BI MAMMOGRAM SCREENING TOMOSYNTHESIS BILATERAL [...] Recently Relevant to Health Maintenance Results * (ABNORMAL) POCT MERY-14 Urine Drug Screen (06/12/2025 10:48 AM EDT) Only the most recent of4 resultswithin the time period is included. THC [...] procedure / Unknown 06/12/2025 10:48 AM EDT us Anushka Gunter BOWLING TEACHER POINT OF CARE TEST ENTER/EDIT ORDERABLES Edited Result - Final * US Extremity Non Vascular Complete Joint Right (05/25/2025 4:17 PM EDT) Anatomical Region Laterality Modality Ultrasound 05/25/2025 4:17 PM EDT Narrative 05/25/2025 5:12 PM EDT [place] [address] Ultrasound Report Signed Patient: Laura Gonzalez MR#: [id number] : 1965 Acct:[id number] Age/Sex: 60 / F ADM Date: 05/25/25 Loc: . Attending Dr: Cecilia Johnson DO Ordering Physician: Cecilia Johnson DO Date of Service: 05/25/25 Procedure(s): US Extremity Nonvas Comp JT RT Accession Number(s): [id number] cc: Cecilia Johnson DO; MICHAEL YANEZ NP [...] Kleber Garg MD 05/25/2025 05:09 PM EDT RP Dictated By: Kleber Garg MD Signed By: <Electronically signed by Kleber Garg MD in OV> 05/25/25 170 DD/ 1617 TD/TT: 05/25/25 1620 Warehouse Inventory Clerk: Procedure Note Donotuseinterpreter, Image - 05/25/2025 [place] [address] Ultrasound Report Signed Patient: Aleksandar Gonzalez#: [id number] : 1965Acct:[id number] Age/Sex: 60 / FADM Date: 05/25/25 Loc: HO.US Attending Dr: Cecilia Johnson DO Ordering Physician: Cecilia Johnson DO Date of Service: 05/25/25 Procedure(s): US Extremity Nonvas Comp JT RT Accession Number(s): [id number] cc: Cecilia Johnson DO; MICHAEL YANEZ NP [...] Kleber Garg MD 05/25/2025 05:09 PM EDT RP Dictated By: Kleber Garg MD Signed By: <Electronically signed by Kleber Garg MD in OV> 05/25/25 1709 DD/ 1617 TD/TT: 05/25/25 1620 Warehouse Inventory Clerk: us Cecilia Johnson DO IMG US PROCEDURES Final Resu lt * US VENOUS DUPLEX LE RT (05/25/2025 4:01 PM EDT) Anatomical Region Laterality Modality Abdomen Ultrasound 05/25/2025 4:01 PM EDT Narrative 05/25/2025 4:44 PM EDT [place] [address] Ultrasound Report Signed Patient: Laura Gonzalez MR#: [id number] : 1965 Acct:[id number] Age/Sex: 60 / F ADM Date: 05/25/25 Loc: HO.US Attending Dr: Cecilia Johnson DO Ordering Physician: Cecilia Johnson DO Date of Service: 05/25/25 Procedure(s): US venous duplex LE RT Accession Number(s): [id number] cc: Cecilia Johnson DO; MICHAEL YANEZ NP [...] 05/25/25 1642 DD/ 1601 TD/TT: 05/25/25 1615 Warehouse Inventory Clerk: Procedure Note Donotuseinterpreter, Image - 09/26/[address] [address] Ultrasound Report Signed Patient: Aleksandar Gonzalez#: [id number] : 1965Acct:[id number] Age/Sex: 60 / FADM Date: 05/25/25 Loc: HO.US Attending Dr: Cecilia Johnson DO Ordering Physician: Cecilia Johnson DO Date of Service: 05/25/25 Procedure(s): US venous duplex LE RT Accession Number(s): [id number] cc: Cecilia Johnson DO; MICHAEL YANEZ NP [...] 05/25/25 1642 DD/ 1601 TD/TT: 05/25/25 1615 Warehouse Inventory Clerk: us Cecilia Johnson DO IMG US PROCEDURES Final Resu lt * Hold Red (05/13/2025 9:41 AM EDT) Hold Red See Note [facility] Comment:Specimen held untest ed for 24 hours; Call to requestChemistry testing. 05/13/2025 9:41 AM EDT 05/13/2025 9:46 AM EDT us Generic External Data Provider LAB BLOOD ORDERAB LES Final Result [facility] [address] [place] [address] [phone] * (ABNORMAL) CBC auto differential (05/13/2025 9:41 AM EDT) Only the most recent of2 resultswithin the time period is included. White Blood Count 4.4(L) 4.8 - 10.8 X10*3/uL [facility] Red Blood Count 4.76 4.20 - 5.50 X10*6/uL [facility] Hemoglobin 13.8 12.0 - 16.0 g/dl [facility] Hematocrit 42.3 37.0 - 47.0 % [facility] Mean Corpuscular Volume 88.9 80.0 - 98.0 fL [facility] Mean Corpuscular Hemoglobin 29.0 27.0 - 33.0 pg [facility] Mean Corpuscular HGB Conc 32.6 31.0 - 35.0 g/dl [facility] Red Cell Distribution Width 13.8 11.0 - 16.0 % [facility] Platelet Count 272 160 - 400 X10*3/uL [facility] Mean Platelet Volume 8.1(L) 9.4 - 12.3 fL [facility] Neutrophils Percent Auto 42.8(L) 45 - 73 % [facility] Imm Gran Pct Auto 0.0 0.0 - 0.4 % [facility] Lymphocytes Percent Auto 38.5 20 - 40 % [facility] Monocytes Percent Auto 8.1 2 - 11 % [facility] Eosinophils Percent Auto 9.7(H) 0 - 4 % [facility] Basophils Percent Auto 0.9 0 - 2 % [facility] NRBC Pct Auto 0.0 0.0 - 0.2 /100WBC [facility] Neutrophils Absolute Auto 1.9(L) 2.0 - 8.3 x10*3/uL [facility] Imm Gran Abs Auto 0.00 0.00 - 0.03 X10*3/uL [facility] Lymphocytes Absolute Auto 1.7 1.2 - 4.9 X10*3/uL [facility] Monocytes Absolute Auto 0.4 0.1 - 1.2 X10*3/uL [facility] Eosinophils Absolute Auto 0.4 0.0 - 0.4 X10*3/uL [facility] Basophils Absolute Auto 0.0 0.0 - 0.2 X10*3/uL [facility] NRBC Abs Auto 0.000 0.0 - 0.012 X10*3/uL [facility] 05/13/2025 9:41 AM EDT 05/13/2025 9:45 AM EDT Generic External Data Provider LAB BLOOD ORDERAB LES Final Result Performing Organization Address City/[facility]/ZIP Co de Phone Number [facility] [address] [place] [phone] * Sed Rate by Modified Kenish[place] (05/13/2025 9:41 AM EDT) Pathologist [facility] Erythrocyte Sedimentation Rate 11 0 - 20 MM/HR [facility] Comment:Patients with polycy themia and many hemoglobin abnormalitiesmay have depressed sed rates whereas patients with anemiamay have elevated sed rates. 05/13/2025 9:41 AM EDT 05/13/2025 9:45 AM EDT us Generic External Data Provider LAB BLOOD ORDERAB LES Final Result Performing Organization Address [facility] Co de Phone Number [facility] [address] [place] [phone] * C-reactive Protein (05/13/2025 9:41 AM EDT) Pathologist [facility] C Reactive Protein 0.27 < or = 0.50 mg/dL [facility] 05/13/2025 9:41 AM EDT 05/13/2025 9:45 AM EDT us Generic External Data Provider LAB BLOOD ORDERAB LES Final Result [facility] [address] [place] [address] [phone] * (ABNORMAL) Comprehensive Metabolic Panel (05/13/2025 9:41 AM EDT) Only the most recent of2 resultswithin the time period is included. Sodium 143 135 - 145 mmol/L [facility] Potassium 4.6 3.3 - 5.1 mmol/L [facility] Chloride 111(H) 96 - 108 mmol/L [facility] Carbon Dioxide 25 22 - 29 mmol/L [facility] Anion Gap 12 12 - 20 [facility] Urea Nitrogen (BUN) 9 9 - 16 mg/dL [facility] Creatinine, Serum 0.86 0.5 - 1.4 mg/dL [facility] Creatinine Clr Calc Pharmacy 63.3 [facility] Comment:Provided height and weight: 165.1 cm,66.4 kg.eGFR (calculated from the MDRD study equation) and eCrCl(calculated from the Cockcroft-Gault equation) are based ondifferent parameters and may not yield comparable results.If eCrCl result is absurd, please check patient'sheight/weight. Estimated Glomerular Filt Rate >60 [facility] Comment:Chronic Kidney Disea se: Estimated GFR < 60 mL/min/1.17f7Rpzoti Kidney Disease: Estimated GFR < 15 mL/min/1.73m2 Glucose 109 60 - 115 mg/dL [facility] Calcium 9.4 8.4 - 10.2 mg/dL [facility] Bilirubin, Total 0.4 0.0 - 1.0 mg/dL [facility] Aspartate Amino Transferase 23 5 - 31 U/L [facility] Alanine Aminotransferase 19 0 - 31 U/L [facility] Total Protein 7.1 6.5 - 8.0 g/dL [facility] Albumin Level 4.2 3.5 - 5.0 g/dL [facility] Alkaline Phosphatase 99 39 - 117 U/L [facility] 05/13/2025 9:41 AM EDT 05/13/2025 9:45 AM EDT us Generic External Data Provider LAB BLOOD ORDERAB LES Final Result Performing Organization Address City/State/[facility] Co de Phone Number [facility] [address] [place] [phone] * CTA Chest PE Protocal (05/01/2025 2:33 PM EDT) Anatomical Region Laterality Modality Body, Chest Computed Tomogra phy 05/01/2025 2:33 PM EDT Narrative 05/01/2025 3:11 PM EDT [address] [address] [address] Scan Report Signed Patient: Laura Gonzalez MR#: [id number] : 1965 Acct:[id number] Age/Sex: 60 / F ADM Date: 05/01/25 Loc: HO.CT Attending Dr: Jaleel Block MD Ordering Physician: JALEEL BLOCK MD Date of Service: 05/01/25 Procedure(s): CT angio chest PE protocol Accession Number(s): [id number] cc: JALEEL BLOCK MD; MICHAEL YANEZ NP Report Number: [id number]: Total DLP = 139.00 mGy-cm Reason for [...] 05/01/25 1508 DD/ 1433 TD/TT: 05/01/25 1452 Warehouse Inventory Clerk: Procedure Note Donotuseinterpreter, Image - 05/01/[address] [place] [address] [address] Scan Report Signed Patient: Aleksandar Gonzalez#: [id number] : 1965Acct:[id number] Age/Sex: 60 / FADM Date: 05/01/25 Loc: HO.CT Attending Dr: Jaleel Block MD Ordering Physician: JALEEL BLOCK MD Date of Service: 05/01/25 Procedure(s): CT angio chest PE protocol Accession Number(s): [id number] cc: JALEEL BLOCK MD; MICHAEL YANEZ NP Report Number: [id number]: Total DLP = 139.00 mGy-cm Reason for [...] 05/01/25 1508 DD/ 1433 TD/TT: 05/01/25 1452 Warehouse Inventory Clerk: Jaleel Block MD [facility] [place] PROCEDURES Final Result * Hematoxylin and Eosin Stain (04/11/2025 12:01 PM EDT) 04/11/2025 12:0 1 PM EDT 04/11/2025 1:46 PM EDT [facility]S - 04/12/2025 2:08 PM EDT ----- ------- Name: Laura Gonzalez Age/Sex: 60/F : 1965 [facility]#: [id number] Unit#: [id number] Attend Dr: Tung Potter MD Re04/11/25 Status: [facility] Location: [facility] Disch: ----- ------- SPEC : [id number] RECD: 04/11/25-1345 STATUS: CIELO PRICE NUM: [id number] ANGELA: 04/11/25-1201 [facility] DR: Tung Potter MD ENTERED: 04/11/25-1347 SP TYPE: Surgical OTHR DR: MICHAEL YANEZ LEARNING DEVELOPER ORDERED: HE Stain/6, Gross Micro L4/2, IHC, [...] developed and their performance characteristics determined by [facility]. They have not been cleared or approved by the U.S. Food and Drug Administration (FDA). However, the FDA has determined that such clearance or approval is not necessary. This laboratory is CONTINUED ON NEXT PAGE ----- ------- Name: Laura Gonzalez Age/Sex: 60/F : 1965 Unit#: [id number] Attend Dr: Tung Potter MD Re04/11/25 Status: [facility] [place] [place] Location: [facility] Disch: ----- ------- SPEC : [id number] RECD: 04/11/25 STATUS: CIELO PRICE NUM: [id number] ANGELA: 04/11/25-1201 [facility] [address]: Tung Potter MD ENTERED: 04/11/25 SP TYPE: Surgical OTHR DR: MICHAEL YANEZ NP ORDERED: HE Stain/6, Gross Micro L4/2, IHC, Special st. 2/2, H. pylori, AB/PAS/2 IHC S/NG Disclaimer (Continued) certified under the Clinical Laboratory Improvement Amendments of 1988 (CLIA) as qualified to perform high complexity clinical laboratory testing. Copies To: Tung Potter MD [facility] [address] [place] [id number] MICHAEL YANEZ NP [facility] [address] [place] [address] ----- ------- Signed (signature on file) Yasmeen Carrasco MD 04/12/25 1408 ----- ------- END OF REPORT Generic External Data Provider LAB BLOOD ORDERAB LES Final Result [facility] [address] [place] [address] [phone] * Drug Monitoring, Benzodiazepines, Quantitative, Urine (04/10/2025 10:00 AM EDT) Nordiazepam, GCMS Urine NEGATIVE [facility] Comment:CUTOFF: 50 ng/mL Oxazepam, GCMS Urine NEGATIVE [facility] Comment:CUTOFF: 50 ng/mL Lorazepam GCMS Urine NEGATIVE [facility] Comment:CUTOFF: 50 ng/mL Alprazolam, GCMS Urine NEGATIVE [facility] Comment:CUTOFF: 25 ng/mL Alphahydroxytriazolam, GCMS Ur NEGATIVE [facility] Comment:CUTOFF: 50 ng/mL Temazepam, GCMS Urine NEGATIVE [facility] Comment:CUTOFF: 50 ng/mL Alphahydroxymidazolam,GC MS Ur NEGATIVE [facility] Comment:CUTOFF: 50 ng/mL Aminoclonazepam, GCMS Urine NEGATIVE [facility] Comment:CUTOFF: 25 ng/mL Flurazepam Metabolite,GCMS Ur NEGATIVE [facility] Comment:CUTOFF: 50 ng/mL Benzodiazepines Comments SEE NOTE [facility] Comment:This drug testing is for medical treatment only. Analysiswas performed as non-forensic testing and these resultsshould be used only by healthcare providers to renderdiagnosis or treatment, or to monitor progress of medicalconditions.LDT Notes:Confirmation tests were developed and their analyticalperformance characteristics have been determined by [facility]. It has not been cleared or approved by the FDA.This assay has been validated pursuant to the CLIAregulations and is used for clinical purposes.Healthcare Providers needing Interpretation assistance,please contact us at [phone] ( ) M-F,8am to 10pm ESTPERFORMING SITE:[facility], [address] [place] [phone] Visitor Use Assistant: NILSA MATTHEWS MD, CLIA:[id number] Urine (Urine, Random) 04/10/2025 10:00 AM EDT 04/10/2025 1:08 PM EDT [facility] LAB URINE ORDERABLES Final Resul t [facility] [address] [place] [address] [phone] * Drug Monitoring, Methadone Metabolite, Screen, Urine (04/10/2025 10:00 AM EDT) Methadone Screen, Urine Not Detected Not Detect ng/mL [facility] Comment:Methadone cut-off is 300 ng/mL.Positive results are unconfirmed and should not be used fornon-medical purposes. Urine (Urine, Random) 04/10/2025 10:00 AM EDT 04/10/2025 1:08 PM EDT us Michael Yanez ANP LAB URINE ORDERABLES Final Resul t [facility] [address] [place] [phone] * US Abdomen Limited (04/05/2025 12:53 PM EDT) Anatomical Region Laterality Modality Abdomen Ultrasound 04/05/2025 12:5 3 PM EDT Narrative 04/05/2025 1:28 PM EDT [address] [address] Ultrasound Report Signed Patient: Laura Gonzalez MR#: [id number] : 1965 Acct:[id number] Age/Sex: 60 / F ADM Date: 04/05/25 Loc: HO.ED Attending Dr: Ordering Physician: Alisha Saldivar PA-C Date of Service: 04/05/25 Procedure(s): US abdomen limited Accession Number(s): [id number] cc: Alisha Saldivar PA-C; MICHAEL YANEZ NP [...] 04/05/25 1325 DD/ 1253 TD/TT: 04/05/25 1302 Warehouse Inventory Clerk: Procedure Note Donotuseinterpreter, Image - 04/05/2025 [place] [address] Ultrasound Report Signed Patient: Aleksandar Gonzalez#: [id number] : 1965Acct:[id number] Age/Sex: 60 / FADM Date: 04/05/25 Loc: .ED Attending Dr: Ordering Physician: Alisha Saldivar PA-C Date of Service: 04/05/25 Procedure(s): US abdomen limited Accession Number(s): [id number] cc: Alisha Saldivar PA-C; MICHAEL YANEZ NP [...] 04/05/25 1325 DD/ 1253 TD/TT: 04/05/25 1302 Warehouse Inventory Clerk: us [facility] External Provider IMG US PROCEDURES Final Result * (ABNORMAL) Urinalysis, Complete, with Reflex to Culture (04/05/2025 10:08 AM EDT) Color Urine Yellow [facility] Appearance Urine Turbid [facility] PH 7.0 5.0 - 9.0 [facility] Glucose Urine UA Negative Negative mg/dL [facility] Urine Blood Negative Negative [facility] Specific [place] - Urine 1.015 1.005 - 1.025 [facility] Urine Protein Negative Neg-Trace mg/dL [facility] Urine Ketones Negative Negative mg/dL [facility] Nitrite Urine Negative Negative [facility] Leukocyte Esterase Urine Moderate (2+)(A) Negative [facility] RBC Urine 0-2 0 - 2 /HPF [facility] Urine WBC 6-10(A) 0 - 5 /HPF [facility] Urine Squamous Epithelial Cell 0-2 0 - 2 /HPF [facility] Urine Bacteria None Seen None Seen [facility] Hyaline Casts, Urine 0-2 0 - 2 /LPF [facility] 04/05/2025 10:0 8 AM EDT 04/05/2025 10:13 AM EDT Narrative [facility] - 04/05/2025 10:22 AM EDT Urine, Clean Catch Generic External Data Provider LAB URINE ORDERAB LES Final Result [facility] [address] [place] [phone] * D Dimer High Sensitivity (04/05/2025 10:05 AM EDT) Only the most recent of2 resultswithin the time period is included. [facility] D Dimer High Sensitivity 164 NG/ML [facility] Comment:D-DIMER HS REFERENCE RANGENote: Our [...] ORDERAB LES Final Result Performing Organization Address [facility] Co de Phone Number [facility] [address] [place] [phone] * High Sensitivity Troponin I (04/05/2025 10:05 AM EDT) [facility] TROPONIN I HIGH SENSITIVITY <2.7 <3.5 - 17.0 ng/L [facility] Comment:The Brar high sens itivity Troponin-I results should beused in conjunction with other diagnostic information suchas ECG, clinical observations and information, and patientsymptoms to aid in the diagnosis of [place]. 04/05/2025 10:0 5 AM EDT 04/05/2025 10:08 AM EDT us Generic External Data Provider LAB BLOOD ORDERAB LES Final Result Performing Organization Address City/[facility]/ZIP Co de Phone Number [facility] [address] [place] [phone] * Lipase (04/05/2025 10:05 AM EDT) [facility] Lipase 19 8 - 78 U/L [facility] 04/05/2025 10:0 5 AM EDT 04/05/2025 10:08 AM EDT us Generic External Data Provider LAB BLOOD ORDERAB LES Final Result [facility] [address] [place] [phone] * CT Abdomen Pelvis w/o Contrast (04/05/2025 9:45 AM EDT) Anatomical Region Laterality Modality Body, Pelvis, Abdomen Computed T omography 04/05/2025 9:45 AM EDT Narrative 04/05/2025 10:20 AM EDT [address] [address] [address] Scan Report Signed Patient: Laura Gonzalez MR#: [id number] : 1965 Acct:[id number] Age/Sex: 60 / F ADM Date: 04/05/25 Loc: HO.ED Attending Dr: Ordering Physician: Alisha Saldivar PA-C Date of Service: 04/05/25 Procedure(s): CT abdomen pelvis wo IV con Accession Number(s): [id number] cc: Alisha Saldivar PA-C; MICHAEL YANEZ NP Report Number: [id number]: Total DLP = 431.00 mGy-cm EXAMINATION: CT [...] 04/05/25 1018 DD/ 0945 TD/TT: 04/05/25 1000 Warehouse Inventory Clerk: Procedure Note Donotuseinterpreter, Image - 04/05/[address] [address] [address] Scan Report Signed Patient: Aleksandar Gonzalez#: [id number] : 1965Acct:[id number] Age/Sex: 60 / FADM Date: 04/05/25 Loc: HO.ED Attending Dr: Ordering Physician: Alisha Saldivar PA-C Date of Service: 04/05/25 Procedure(s): CT abdomen pelvis wo IV con Accession Number(s): [id number] cc: Alisha Saldivar PA-C; MICHAEL YANEZ NP Report Number: [id number]: Total DLP = 431.00 mGy-cm EXAMINATION: CT [...] been a hysterectomy. Electronically signed by: Gallo Schsuter MD 04/05/2025 10:18 AM EDT Dictated By: Gallo Schuster MD Signed By: <Electronically signed by Gallo Schuster MD in OV> 04/05/25 1018 DD/ 0945 TD/TT: 04/05/25 1000 Warehouse Inventory Clerk: [facility] External Provider IMG CT PROCEDURES Final Result * XR Chest 2 Views (04/05/2025 8:44 AM EDT) Only the most recent of2 resultswithin the time period is included. Anatomical Region Laterality Modality Chest Radiographic Jennifer ging 04/05/2025 8:44 AM EDT Narrative 04/05/2025 9:59 AM EDT [address] [address] XRay Report Signed Patient: Laura Gonzalez MR#: [id number] : 1965 Acct:[id number] Age/Sex: 60 / F ADM Date: 04/05/25 Loc: HO.ED Attending Dr: Ordering Physician: Alisha Saldivar PA-C Date of Service: 04/05/25 Procedure(s): XR chest 2V Accession Number(s): [id number] cc: Alisha Saldivar PA-C; MICHAEL YANEZ LEARNING DEVELOPER EXAMINATION: XR CHEST CLINICAL INFORMATION: right upper [...] 04/05/25 0956 DD/ 0844 TD/TT: 04/05/25 0942 Warehouse Inventory Clerk: Procedure Note Donotuseinterpreter, Image - 04/05/[address] [address] XRay Report Signed Patient: Paz GonzalezR#: [id number] : 1965Acct:[id number] Age/Sex: 60 / FADM Date: 04/05/25 Loc: .ED Attending Dr: Ordering Physician: Alisha Saldivar PA-C Date of Service: 04/05/25 Procedure(s): XR chest 2V Accession Number(s): [id number] cc: Alisha Saldivar PA-C; MICHAEL YANEZ LEARNING DEVELOPER EXAMINATION: XR CHEST CLINICAL INFORMATION: right upper [...] 04/05/25 0956 DD/ 0844 TD/TT: 04/05/25 0942 Warehouse Inventory Clerk: [facility] External Provider IMG XR PROCEDURES Final Result * Culture, Urine, Routine (04/05/2025 12:00 AM EDT) Only the most recent of2 resultswithin the time period is included. Urine Urine specimen obtained by clean catch procedure / Unknown 04/05/2025 04/05/2025 Comment:UACC Narrative [facility] - 04/06/2025 10:53 AM EDT Urine Culture No growth. Specimen Source: Urine clean catch Generic External Data Provider LAB MICROBIOLOGY - GENERAL ORDERABLES Final Result [facility] [address] [place] [phone] * Creatinine, Serum (04/04/2025 2:21 PM EDT) Creatinine, Serum 0.78 0.5 - 1.4 mg/dL [facility] Estimated Glomerular Filt Rate >60 [facility] Comment:Chronic Kidney Disea se: Estimated GFR < 60 mL/min/1.80t0Cvczkk Kidney Disease: Estimated GFR < 15 mL/min/1.73m2 Blood Venous blood specimen / Unknown 04/04/2025 2:21 PM EDT 04/04/2025 2:21 PM EDT us Jaleel Block MD LAB BLOOD ORDERABLES Final Resul t Performing Organization Address [facility] Co de Phone Number [facility] [address] [place] [phone] * BUN (Blood Urea Nitrogen) (04/04/2025 2:21 PM EDT) Urea Nitrogen (BUN) 11 9 - 16 mg/dL [facility] Blood Venous blood specimen / Unknown 04/04/2025 2:21 PM EDT 04/04/2025 2:21 PM EDT us Jaleel Block MD LAB BLOOD ORDERABLES Final Resul t Performing Organization Address [facility] de Phone Number [facility] [address] [place] [phone] * BI Mammogram Screening Tomosynthesis Bilateral (02/05/2025 12:34 PM EDT) Anatomical Region Laterality Modality Breast Bilateral Mammography 02/05/2025 12:3 4 PM EDT Narrative 02/12/2025 2:54 PM EDT [address] [place] [address] Mammography Report Signed Patient: Laura Graham MR#: [id number] : 1965 Acct:[id number] Age/Sex: 60 / F ADM Date: 02/05/25 Loc: HO.MAMMO Attending Dr: Alex Machuca MD Ordering Physician: Alex Machuca MD Results: 2Benign Findings Date of Service: 02/05/25 Follow Up: 1 Year From Orig inal Mammogram Procedure(s): MM tomosynthesis screening BI Accession Number(s): [id number] cc: MICHAEL YANEZ NP; Alex Machuca MD [...] 02/12/25 1451 DD/ 1234 TD/TT: 02/05/25 1248 Warehouse Inventory Clerk: Procedure Note Donotuseinterpreter, Image - 02/12/2025 [facility] [address] [place] [address] Mammography Report Signed Patient: Aleksandar Garham#: [id number] : 1965Acct:[id number] Age/Sex: 60 / FADM Date: 02/05/25 Loc: HO.MAMMO Attending Dr: Alex Machuca MD Ordering Physician: Alex Machuca MDResults: 2Benign Findings Date of Service: 02/05/25Follow Up: 1 Year From Orig inal Mammogram Procedure(s): MM tomosynthesis screening BI Accession Number(s): [id number] cc: MICHAEL YANEZ NP; Alex Machuca MD [...] 02/12/25 1451 DD/ 1234 TD/TT: 02/05/25 1248 Warehouse Inventory Clerk: [facility] External Provider IMG BI PROCEDURES Final Result * (ABNORMAL) Lipid Panel, Standard (08/25/2024 10:00 AM EST) Triglycerides 61 <150 mg/dL [facility] Comment:Desirable Triglyceri de: less than 150 mg/dLBorderline High Triglyceride 150-199 mg/dLHigh Triglyceride: 200-499 mg/dLVery High Triglyceride: greater than or equal to 5OO mg/dL Cholesterol 173 <200 mg/dL [facility] Comment:Desirable Cholestero l: less than 200 mg/dLBorderline High Cholesterol: 200-239 mg/dLHigh Cholesterol: greater than 239 mg/dL LDL Cholesterol Calculated 105(H) <100 mg/dL [facility] Comment:Desirable LDL: less than 100 mg/dLNear Optimal/Above Optimal LDL: 110- 129 mg/dLBorderline High LDL: 130-159 mg/dLHigh LDL: 160-189 mg/dLVery High LDL: greater than or equal to 190 mg/dL HDL Cholesterol 56 >40 mg/dL [facility] Comment:Desirable HDL: great er than 40 mg/dL Note: This HDL assay may give artificially low results in patients with liver disease. 08/25/2024 10:0 0 AM EST 08/25/2024 11:37 AM EST Michael Yanez [facility] LAB BLOOD ORDERABLES Final Resul t Performing Organization Address [facility] Co de Phone Number [facility] [address] [place] [address] [phone] * HIV-1/2 Antigen and Antibodies, Fourth Generation, with Reflexes (01/04/2024 9:49 AM EDT) HIV AB/AG Nonreactive Nonreactive [facility] Comment:HIV-1 p24 Ag and/or HIV-1/HIV-2 Ab not detected.A test result that is nonreactive does not exclude thepossibility of exposure to or infection with HIV-1 and/orHIV-2. Nonreactive results in this assay for individualswith prior exposure to HIV-1 and/or HIV-2 may be due toantigen and antibody levels that are below the limit ofdetection of this assay.The [employer] HIV Ag/Ab Combo assay result andsupplemental assay results should be interpreted inconjunction with the patient's clinical presentation,history and other laboratory results. If the results areinconsistent with clinical evidence, additional testing issuggested to confirm the result. Blood Venous blood specimen / Unknown 01/04/2024 9:49 AM EDT 01/04/2024 11:50 AM EDT Michael Yanez [facility] LAB BLOOD ORDERABLES Final Resul t Performing Organization Address [facility]/ZIP Co de Phone Number [facility] [address] [place] [phone] * Hepatitis C Ab (09/09/2022 10:23 AM EST) Hepatitis C Antibody Nonreactive Nonreactive [facility] Comment:Antibodies to HCV no t detected; does not exclude early acuteHCV infection. 09/09/2022 10:2 3 AM EST 09/09/2022 10:23 AM EST [facility] External Provider LAB BLO OD ORDERABLES Final Result [facility] [address] [place] [phone] * Hm Colonoscopy (07/08/2021 12:15 PM EST) Colonoscopy Normal Normal Fidencio Vila MD HEALTH MAINTENANCE Edited Re sult - Final from Last 3 Months or Most Recently Relevant to Health Maintenance [place] [address] [place] [address] C3 [facility] MEDICAID STAND ADULT [employer] [place] [id number] Care Teams Bungy Jump Master Relationship Specialty Start Date End Date Michael Yanez ANP [address] [place] [phone] PCP - General Family Medicine 01/16/20 Abel Chavarria RN [address] [place] [address] Registered Nurse Family Medicine 02/26/25 Margareth Chavarria 02/26/25
--- OUTSIDE RECORDS SUMMARY | 2025-06-13 16:31 | XMS_ITS | Encounter Summary ---
Author Organization [employer] Address [address] [place] [address] Care Team Providers Care High Wire Artist Name Role Phone Nupur Weir Primary Care Provider [phone] Abel Chavarria RN Unavailable [phone] Margareth Chavarria Unavailable Reason for Visit * Reason Comments Med Refill Encounter Details Date Type Department Care Team (Late st Contact Info) Description 03/11/2025 Refill [facility] [address] [place], [place] [phone] Nupur Weir ANP [address] [place] [address] Arthralgia, unspecified joint Social History Tobacco Use [...] Description 07/10/2025 9:45 AM EST Office Visit [address] [address] 08/07/2025 9:45 AM EST Office Visit [address] [address] 08/14/2025 9:15 AM EST Office Visit [address] [address] Nupur Weir ANP [address] [place] [address] 09/28/2025 9:30 AM EST Medication Management [address] [address] Fay Leigh, PharmD [address] [place] [address] documented as of this encounter Visit Diagnoses Diagnosis Arthralgia, unspecified joint documented in this encounter Care Teams High Wire Artist Relationship Specialty Start Date End Date Nupur Weir ANP [address] [place] [address] PCP - General Family Medicine 01/16/20 Abel Chavarria, ILENE [address] [place] [phone] Registered Nurse Family Medicine 02/26/25 Margareth Chavarria 02/26/25 documented as of this encounter
== END 2025-06-13 13:54 | disposition home or self-care (01) ==
LOC: HO.HGS 12:57
PROVIDERS: PCP Nurse Practitioner Primary Care
DX: L02.213 Cutaneous abscess of chest wall (principal)
CPT/HCPCS: 11401; 99214

== ENCOUNTER 2025-06-20 14:01 | Outpatient (AMB) | payer MEDICAID, SELFPAY ==
--- OUTSIDE RECORDS SUMMARY | 2023-12-29 09:10 | XMS_ITS ---
Author Organization [facility] Address [address] [place] [address] [place] [phone] Care Team Providers Care Solar Installer Technician Name Role Phone MICHAEL YANEZ N.P. Primary Care Provider Fidencio Langley Jr REASON FOR VISIT rectal bleeding Encounters Encounter Location Date Provider Diagnosis [facility] [place] [address] [place] [id number] 12/29/2023 Fidencio Vila Jr Rectal bleeding K62.5 Assessments Encounter Date Diagnosis (ICD Code) Assessment Notes Treatment Notes Treatment Clinical Notes Section Notes 12/29/2023 Rectal bleeding (ICD-10 - K62.5) Plan Of Treatment Next Appt Details Provider Name:Fidencio haider Jr, 07/18/2025 11:20:00 AM, [address] [place] [address], Suite [facility], [place], [address], Progress Notes * TIFFANIE TYLERMACB: 6 (60 yo F)Acc No.[id number]:12/29/2023 COLON WITH MAC Patient: TAY CAPELLAN Provider: Remi Vila MD :1965 A ge:58 Y S ex:Female Date:12/29/2023 Address:[address] [place] Pcp:MICHAEL YANEZ N.P. Subjective: * Chief Complaints: [...] 0 12/29/2023 Generated for Viviane negrete/Shakila/Jadenitting on: 08:09 PM EDT
--- OUTSIDE RECORDS SUMMARY | 2025-01-03 05:20 | XMS_ITS ---
Author Organization [facility] Address [address] [facility] [address] [place] [address] Care Team Providers Care Major Gifts Officer Name Role Phone MICHAEL YANEZ N.P. Primary Care Provider Fidencio Langley Jr [phone] REASON FOR VISIT dysphagia Encounters Encounter Location Date Provider Diagnosis [facility] [address] [place] [address] 01/03/2025 Fidencio Vila Jr Plan Of Treatment Next Appt Details Provider Name:Fidencio haider Jr, 07/18/2025 11:20:00 AM, [address] [place] [address], [address], [place], [address], Progress Notes * TIFFANIE TYLERADOB: 6 (60 yo F)Acc No.[id number]:01/03/2025 Progress Notes Patient: TAY CAPELLAN Provider: Remi Vila MD :1965 A ge:59 Y S ex:Female Date:01/03/2025 Address:[address] [place] Pcp:MICHAEL YANEZ N.P. Subjective: * Chief Complaints: [...] 01/03/2025 Generated for Viviane negrete/Shakila/Constantino on: 1 08:08 PM EDT
--- NOTE | 2025-06-20 14:02 | A.OFFVIS_ITS ---
Vital Signs 3 06/20/25 14:08 Height 5 ft 5 in Weight 139 lb BMI 23.1 BP 114/81 Blood Pressure Location Rt brachial Position Sitting Pulse 67 Intake Visit Reasons: s/p piercing removal Intake Note: Patient here for wound check on mid chest. Patient c/o: burning sensation inside along incision site. Denies oozing, pain. WLE (JOSE MANUEL): 06-13-2025 Senior Data Warehouse Developer Required: No Accompanied by: Self / Same As Patient Allergies ondansetron (From ZOFRAN) Allergy (Unknown, Verified 06/20/25 14:07) per H&P sumatriptan (From IMITREX) Allergy (Unknown, Verified 06/20/25 14:07) RASH FROM TABLET NOT INJECTION promethazine (From PHENERGAN) Adverse Reaction (Severe, Verified 06/20/25 14:07) DYSTONIA HPI HPI s/p piercing removal: Details: Doing well. She reports some burning pain at the incision site. Initially had some bleeding on the 1st day after the procedure and some increased pain. She called the office and we sent a prescription for oxycodone to get her to this appointment. Now currently having some minimal burning pain. There has been no further drainage. Denies fevers at home. She does state that the tape removed some skin from her left breast which she thinks is infected, states it had some clear yellow drainage that she was concerned about. Otherwise no concerns [facility] Medical History (Updated 06/13/25 @ 14:20 by Preston Barksdale PA-C) Abscess of leg Well woman exam Epidermal cyst Migraine HTN (hypertension) IBS (irritable bowel syndrome) GERD (gastroesophageal reflux disease) Chronic interstitial cystitis Sleep apnea Asthma Anemia Hypercholesteremia Depression Anxiety Sacrococcygeal pilonidal cyst Recurrent UTI Goiter Flank pain Dysuria Hypercalciuria Swelling of joint, ankle, right Swelling of right foot Vitamin D deficiency Hypothyroidism Right patella fracture History of secondary hyperparathyroidism Abnormal mammogram Surgical History (Updated 06/22/25 @ 13:48 by Preston Barksdale PA-C) History of removal of cyst (~05/12/24) History of bladder surgery H/O bilateral salpingo-oophorectomy S/P gastric bypass H/O left breast biopsy H/O: hysterectomy History of bilateral tubal ligation History of appendectomy Family History Mother Uterine cancer Father No problems noted. 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 Cyst Excision site: [address], excision site healing well. No surrounding erythema, no fluctuance or drainage. Neuro General: patient oriented x3 Assessment & Plan Assessment & Plan (1) H/O excision of epidermal inclusion cyst: Code(s): Z98.890 - Other specified postprocedural states; Z87.2 - Personal history of diseases of the skin and subcutaneous tissue Category: Medical Plan 60 year old female returnign to the office following excision of a skin lesion 1 week ago. She initially had some bleeding and pain post op for which she called the office and was sent a short rx for oxycodone. She reports she is doing well, there has been no further bleeding. Denies fevers, chills, drainage, redness around excision site. On exam the excision site appears to be healing well. No concern for infection. We reviewed the pathology report showing a ruptured epidermal inclusion cyst with marked granulation tissue. No malignancy identified. Sutures were removed in office without complication. Patient no longer requiring follow up. Can return as needed with any concerns Coding Level of Care Code Est Pt Level 3 (34166) Diagnoses H/O excision of epidermal inclusion cyst Z98.890; Z87.2
[2025-06-20 14:08] VITALS: BP 114/81; PULSE 67; BMI 23.1
--- OUTSIDE RECORDS SUMMARY | 2025-06-20 20:08 | XMS_ITS | Encounter Summary ---
Author Organization [employer] Address 75 [facility] 7t [place] [address] Care Team Providers Care Redrawer Name Role Phone Nupur Weir Primary Care Provider [phone] Abel Chavarria RN Unavailable [phone] Margareth Chavarria Unavailable Reason for Visit * Reason Comments Med Refill Encounter Details Date Type Department Care Team (Late st Contact Info) Description 11/07/2024 Refill [facility] [address] [place], [place] [phone] Nupur Weir ANP 230 [place] [address] Primary hypertension; Iron deficiency anemia, unspecified iron [...] Description 07/10/2025 9:45 AM EST Office Visit [address] [address] 08/07/2025 9:45 AM EST Office Visit [address] [address] 08/14/2025 9:15 AM EST Office Visit [address] [address] Nupur Weir ANP [address] [place] [address] 09/28/2025 9:30 AM EST Medication Management [address] [address] Fay Leigh, PharmD [address] [place] [address] documented as of this encounter Visit Diagnoses Diagnosis Primary hypertension Unspecified essential hypertension Iron deficiency anemia, unspecified iron deficiency anemia type documented in this encounter Care Teams Redrawer Relationship Specialty Start Date End Date Nupur Weir ANP [address] [place] [address] PCP - General Family Medicine 01/16/20 Abel Chavarria, ILENE [address] [place] [address] Registered Nurse Family Medicine 02/26/25 06/18/25 Margareth Chavarria 02/26/25 documented as of this encounter
--- OUTSIDE RECORDS SUMMARY | 2025-06-20 20:09 | XMS_ITS | Encounter Summary ---
Author Organization [employer] Address [address] [facility] [address] 7t [place] [address] Care Team Providers Care Dispatcher Service Or Work Name Role Phone Nupur Weir Primary Care Provider [phone] Abel Chavarria RN Unavailable [phone] Margareth Chavarria Unavailable Encounter Details Date Type Department Care Team (Late st Contact Info) Description 05/25/2025 Results Follow-Up [facility] 230 [place] [address] Nupur Weir ANP 230 [place] [address] US VENOUS DUPLEX LE RT, US Extremity [...] si tiene preguntas. Take care, Cu??Nupur arambula HOSPITAL PERSONNEL DIRECTOR documented in this encounter Plan of Treatment Upcoming Encounters Date Type Department Care Team (Late st Contact Info) Description 07/10/2025 9:45 AM EST Office Visit [facility] [address] [place] [address] 08/07/2025 9:45 AM EST Office Visit [facility] [address] [place] [address] 08/14/2025 9:15 AM EST Office Visit [address] [address] Nupur Weir ANP [address] [place] [address] 09/28/2025 9:30 AM EST Medication Management [address] [address] Fay Leigh PharmD [address] [place] [address] documented as of this encounter Visit Diagnoses Not on filedocumented in this encounter Additional Health Concerns Assessment Noted Time PHQ-9 Depression Total Score: 17 04/12/ 025 10:08 AM EDT documented as of this encounter Care Teams Dispatcher Service Or Work Relationship Specialty Start Date End Date Nupur Weir ANP [address] [place] [address] PCP - General Family Medicine 01/16/20 Abel Chavarria RN [address] [place] [address] Registered Nurse Family Medicine 02/26/25 06/18/25 Margareth Chavarria 02/26/25 documented as of this encounter
--- OUTSIDE RECORDS SUMMARY | 2025-06-20 20:09 | XMS_ITS | Encounter Summary ---
Author Organization [employer] Address [address] [facility] [address] 7t [place] [address] Care Team Providers Care Software Requirements Engineer Name Role Phone Nupur Weir Primary Care Provider [phone] Abel Chavarria RN Unavailable [phone] Margareth Chavarria Unavailable Reason for Visit * Reason Comments Med Refill Encounter Details Date Type Department Care Team (Late st Contact Info) Description 09/19/2023 Refill [facility] 230 [place], [place] [phone] Nupur Weir ANP 230 [place] [address] Constipation, unspecified constipation type Social History Tobacco [...] Description 07/10/2025 9:45 AM EST Office Visit [address] [address] 08/07/2025 9:45 AM EST Office Visit [address] [address] 08/14/2025 9:15 AM EST Office Visit [address] [address] Nupur Weir ANP [address] [place] [address] 09/28/2025 9:30 AM EST Medication Management [address] [address] Fay Leigh, PharmD [address] [place] [address] documented as of this encounter Visit Diagnoses Diagnosis Constipation, unspecified constipation type documented in this encounter Care Teams Software Requirements Engineer Relationship Specialty Start Date End Date Nupur Weir ANP [address] [place] [address] PCP - General Family Medicine 01/16/20 Abel Chavarria RN [address] [place] [address] Registered Nurse Family Medicine 02/26/25 06/18/25 Margareth Chavarria 02/26/25 documented as of this encounter
--- OUTSIDE RECORDS SUMMARY | 2025-06-20 20:09 | XMS_ITS | Encounter Summary ---
Author Organization [employer] Address 75 [facility] [place] [address] 7t [place] [address] Care Team Providers Care Landscape Technician Name Role Phone Nupur Weir Primary Care Provider [phone] Abel Chavarria RN Unavailable [phone] Margareth Chavarria Unavailable Reason for Visit * Reason Comments Med Refill Encounter Details Date Type Department Care Team (Late st Contact Info) Description 06/17/2025 Refill [facility] 230 [place], [place] [phone] Nupur Weir ANP 230 [place] [address] Social History Tobacco Use Types Packs/Day Years [...] ([facility] st Contact Info) Description 07/10/2025 9:45 AM EST Office Visit [address] [address] 08/07/2025 9:45 AM EST Office Visit [address] [address] 08/14/2025 9:15 AM EST Office Visit [address] [address] Nupur Weir ANP [address] [place] [address] 09/28/2025 9:30 AM EST Medication Management [address] [address] Fay Leigh, MayoD 230 [place] [address] documented as of this encounter Visit Diagnoses Not on filedocumented in this encounter Additional Health Concerns Assessment Noted Time PHQ-9 Depression Total Score: 17 08/ 025 10:08 AM EDT documented as of this encounter Care Teams Landscape Technician Relationship Specialty Start Date End Date Nupur Weir ANP 230 [place] [address] PCP - General Family Medicine 01/16/20 Abel Chavarria, ILENE [address] [place] [address] Registered Nurse Family Medicine 02/26/25 06/18/25 Margareth Chavarria 02/26/25 documented as of this encounter
--- OUTSIDE RECORDS SUMMARY | 2025-06-20 20:09 | XMS_ITS | Encounter Summary ---
Author Organization [employer] Address [address] [facility] [address] 7t [place] [address] Care Team Providers Care Netting Weaver Name Role Phone Nupur Weir Primary Care Provider [phone] Margareth Chavarria Unavailable Reason for Visit * Reason Comments Med Refill Encounter Details Date Type Department Care Team (Late st Contact Info) Description 06/19/2025 Refill [facility] 230 [place] [address] Nupur Weir ANP 230 [place] [address] Arthralgia, unspecified joint Social History Tobacco Use [...] Description 07/10/2025 9:45 AM EST Office Visit [address] [address] 08/07/2025 9:45 AM EST Office Visit [address] [address] 08/14/2025 9:15 AM EST Office Visit [address] [address] Nupur Weir, ANP [address] [place] [address] 09/28/2025 9:30 AM EST Medication Management [address] [address] Fay Leigh, MayoD [address] [place] [address] documented as of this encounter Visit Diagnoses Diagnosis Arthralgia, unspecified joint documented in this encounter Additional Health Concerns Assessment Noted Time PHQ-9 Depression Total Score: 17 04/12/ 025 10:08 AM EDT documented as of this encounter Care Teams Netting Weaver Relationship Specialty Start Date End Date Nupur Weir ANP 230 [facility] [address] PCP - General Family Medicine 01/16/20 Margareth Chavarria 02/26/25 documented as of this encounter
--- OUTSIDE RECORDS SUMMARY | 2025-06-20 20:09 | XMS_ITS | Encounter Summary ---
Author Organization [employer] Address [address] [facility] [address] 7t [place] [address] Care Team Providers Care Store Deli Manager Name Role Phone Nupur Weir Primary Care Provider [phone] Abel Chavarria RN Unavailable [phone] Margareth Chavarria Unavailable Reason for Visit * Reason Comments Med Refill Encounter Details Date Type Department Care Team (Late st Contact Info) Description 12/21/2024 Refill [facility] 230 [place], [place] [phone] Nupur Weir ANP 230 [place] [address] Arthralgia, unspecified joint Social History Tobacco Use [...] Description 07/10/2025 9:45 AM EST Office Visit [address] [address] 08/07/2025 9:45 AM EST Office Visit [address] [address] 08/14/2025 9:15 AM EST Office Visit [address] [address] Nupur Weir, BATOOL 230 [place] [address] 09/28/2025 9:30 AM EST Medication Management [address] [address] Fay Leigh, MayoD 230 [place] [address] documented as of this encounter Visit Diagnoses Diagnosis Arthralgia, unspecified joint documented in this encounter Care Teams Store Deli Manager Relationship Specialty Start Date End Date Nupur Weir ANP 230 [place] [address] PCP - General Family Medicine 01/16/20 Abel Chavarria, ILENE [address] [place] [address] Registered Nurse Family Medicine 02/26/25 06/18/25 Margareth Chavarria 02/26/25 documented as of this encounter
--- OUTSIDE RECORDS SUMMARY | 2025-06-20 20:09 | XMS_ITS | Encounter Summary ---
Author Organization [employer] Address [address] [facility] [address] 7t [place] [address] Care Team Providers Care Evaluation Manager Name Role Phone Nupur Weir Primary Care Provider [phone] Abel Chavarria RN Unavailable [phone] Margareth Chavarria Unavailable Reason for Visit * Reason Onset Date Comments Appointment Request 11/30/2024 Encounter Details Date Type Department Care Team (Late st Contact Info) Description 11/30/2024 Telephone [facility] MED[facility] 230 [place], [place] [phone] Nupur Weir ANP 230 [place], [place] [phone] Appointment Request Social History Tobacco Use Types [...] erent things 0 12/01/2024 11:08 AM Kassy aLy RN Trouble relaxing 1 12/01/2024 11:08 AM [...] EDT Tc from pt requesting to r/s CR[employer]ER appt. States has another appt around the same time at sleep medicine and pt informs takes bus and believes will not be able to make it on time. Would like to r/s for Wednesday. documented in this encounter Plan of Treatment Upcoming Encounters Date Type Department Care Team (Late st Contact Info) Description 07/10/2025 9:45 AM EST Office Visit [address] [address] 08/07/2025 9:45 AM EST Office Visit [address] [address] 08/14/2025 9:15 AM EST Office Visit [address] [address] Nupur Weir ANP 230 [place] [address] 09/28/2025 9:30 AM EST Medication Management [address] [address] Fay Leigh, PharmD 230 [place] [address] documented as of this encounter Visit Diagnoses Not on filedocumented in this encounter Care Teams Evaluation Manager Relationship Specialty Start Date End Date Nupur Weir ANP [address] [place] [address] PCP - General Family Medicine 01/16/20 Abel Chavarria RN [address] [place] [address] Registered Nurse Family Medicine 02/26/25 06/18/25 Margareth Chavarria 02/26/25 documented as of this encounter
--- OUTSIDE RECORDS SUMMARY | 2025-06-20 20:09 | XMS_ITS | Encounter Summary ---
Author Organization [employer] Address 75 [facility] 7t [place] [address] Care Team Providers Care Hotel Reservation Agent Name Role Phone Nupur Weir Primary Care Provider [phone] Abel Chavarria RN Unavailable [phone] Margareth Chavarria Unavailable Reason for Visit * Reason Comments Med Refill Encounter Details Date Type Department Care Team (Late st Contact Info) Description 01/09/2023 Refill [facility] 230 [place], [place] [phone] Nupur Weir ANP 230 [place] [address] Arthralgia, unspecified joint; Other specified hypothyroidism Social [...] Upcoming Encounters Date Type Department Care Team ([facility] st Contact Info) Description 07/10/2025 9:45 AM EST Office Visit [address] [address] 08/07/2025 9:45 AM EST Office Visit [address] [address] 08/14/2025 9:15 AM EST Office Visit [address] [address] Nupur Weir ANP [address] [place] [address] 09/28/2025 9:30 AM EST Medication Management [address] [address] Fay Leigh PharmD [address] [place] [address] documented as of this encounter Visit Diagnoses Diagnosis Arthralgia, unspecified joint Other specified hypothyroidism documented in this encounter Care Teams Hotel Reservation Agent Relationship Specialty Start Date End Date Nupur Weir ANP [address] [place] [address] PCP - General Family Medicine 01/16/20 Abel Chavarria RN [address] [place] [address] Registered Nurse Family Medicine 02/26/25 06/18/25 Margareth Chavarria 02/26/25 documented as of this encounter
--- OUTSIDE RECORDS SUMMARY | 2025-06-20 20:09 | XMS_ITS | Encounter Summary ---
Author Organization [employer] Address [address] [facility] [address] 7t [place] [address] Care Team Providers Care Manager Outreach Name Role Phone Nupur Weir Primary Care Provider [phone] Abel Chavarria RN Unavailable [phone] Margareth Chavarria Unavailable Reason for Visit * Reason Onset Date Comments rs no show appt 11/30/2024 Encounter Details Date Type Department Care Team (Late st Contact Info) Description 11/30/2024 Telephone [facility] 230 [place], [place] [phone] Taty Laura 230 [place], [place] [phone] rs no show appt Social History Tobacco [...] 07/10/2025 9:45 AM EST Office Visit [address] [address] 08/07/2025 9:45 AM EST Office Visit [address] [address] 08/14/2025 9:15 AM EST Office Visit [address] [address] Nupur Weir ANP [address] [place] [address] 09/28/2025 9:30 AM EST Medication Management [address] [address] Fay Leigh, PharmD [address] [place] [address] documented as of this encounter Visit Diagnoses Not on filedocumented in this encounter Care Teams Manager Outreach Relationship Specialty Start Date End Date Nupur Weir ANP [address] [place] [address] PCP - General Family Medicine 01/16/20 Abel Chavarria RN [address] [place] [address] [place] [address] Registered Nurse Family Medicine 02/26/25 06/18/25 Margareth Chavarria 02/26/25 documented as of this encounter
--- OUTSIDE RECORDS SUMMARY | 2025-06-20 20:09 | XMS_ITS | Encounter Summary ---
Author Organization [employer] Address 75 [facility] [place] [address]t [place] [address] Care Team Providers Care Healthcare Business Analyst Name Role Phone Nupur Weir Primary Care Provider [phone] Abel Chavarria RN Unavailable [phone] Margareth Chavarria Unavailable Reason for Visit * Reason Comments Care Management C3CM- f/u call Encounter Details Date Type Department Care Team ([facility] st Contact Info) Description 06/18/2025 Patient Outreach [facility] 230 [place], [place] [phone] Nupur Weir ANP 230 [place] [address] Care Management (C3CM- f/u call) Social History Tobacco Use Types Packs/Day [...] as of this encounter Progress Notes * Abel Chavarria RN - 06/18/2025 10:34 AM EDT CM Abel Chavarria RN placed outbound call to patient. Patient's name, and address confirmed. Patient denies recent illnesses or emergency room visits. Patient confirms attending visits with General Surgery and Urology as scheduled on 06/06. She states the visit with Urology went well. Per patient, completed labs and is waiting on the office to contact her with results. Patient also seen by general surgery for follow up on 06/13. Excision of piercing completed during the office visit. Patientc/o burning to site post procedure. She states she understands that itching occurs during healing process but she reports a burning sensation rather than itching. Per patient, sutures in place. She states the skin is intact and denies any drainage or bleeding from site. She reports feeling mild inflammation with palpation around the site. She denies fever, chills, nausea, vomiting, or other symptoms. Per patient, has a f/u scheduled on 06/20 for suture removal but will be calling the office today to report her symptoms. Patient does expresses needing PT1 for the upcoming visit with General Surgery. Advised a message will be sent to MONTY Zuluaga to outreach and assist. She agrees. Patient confirms attending her appointment with chronic pain clinic group as scheduled and states the visit went well. She is aware of the next f/u on 07/10/25. Patient reports adherence to medication regimen. She denies any concerns or need for refills at this time. She states she is doing well emotionally and confirms attending visits with as scheduled. Patient denies any further needs or concerns at this time. CM reinforced direct contact information or CHW for any additional questions or concerns. Education provided on Walk-In Urgent Care located in [facility]. Patient provided with after-hours line for [facility], , which offer night time triage service and option to transfer to aeronautical test engineer provider if needed. CM discussed with the patient progress made towards established goals. Patient notified is being graduated from the Care Management Program. Patient was educated on how to receive care management services in the future. Patient agrees with the plan and will contact us if any future needs arise. * Abel Chavarria RN - 06/18/2025 10:34 AM EDT CM Abel Chavarria RN, sent notification to PCP BATOOL Liang to inform that patient has completed [facility]3 Adult Complex Care program with goals partially/fully met at this time. documented in this encounter Plan of Treatment Upcoming Encounters Date Type Department Care Team ([facility] st Contact Info) Description 07/10/2025 9:45 AM EST Office Visit [address] [address] 08/07/2025 9:45 AM EST Office Visit [address] [address] 08/14/2025 9:15 AM EST Office Visit [address] [address] Nupur Weir ANP [address] [place] [address] 09/28/2025 9:30 AM EST Medication Management [address] [address] Fay Leigh, PharmD [address] [place] [address] documented as of this encounter Visit Diagnoses Not on filedocumented in this encounter Additional Health Concerns Assessment Noted Time PHQ-9 Depression Total Score: 17 08/2 025 10:08 AM EDT documented as of this encounter Care Teams Healthcare Business Analyst Relationship Specialty Start Date End Date Nupur Weir ANP [address] [place] [address] PCP - General Family Medicine 01/16/20 Abel Chavarria, ILENE [address] [place] [address] Registered Nurse Family Medicine 02/26/25 06/18/25 Margareth Chavarria 02/26/25 documented as of this encounter
--- OUTSIDE RECORDS SUMMARY | 2025-06-20 20:09 | XMS_ITS | Encounter Summary ---
Author Organization [employer] Address [address] [facility] [address] 7t [place] [address] Care Team Providers Care Vp Global Name Role Phone Weir Nupur RENAE Primary Care Provider [phone] Abel Chavarria RN Unavailable [phone] Margareth Chavarria Unavailable Reason for Visit * Reason Onset Date Comments Med Refill 06/18/2025 Encounter Details Date Type Department Care Team ([facility] st Contact Info) Description 06/18/2025 Refill [facility] 505 [place] [address] Kassy Ramsey, RN 505 [place] [address] Back pain, unspecified back location, unspecified back [...] encounter Miscellaneous Notes * Telephone Encounter - Kassy Ramsey RN - 06/18/2025 12:57 PM EDT TC back to pt regarding message below, no answer. Refill queued 14 days supply, 42 tab. documented in this encounter Plan of Treatment Upcoming Encounters Date Type Department Care Team (Late st Contact Info) Description 07/10/2025 9:45 AM EST Office Visit [facility] [address] [place] [address] 08/07/2025 9:45 AM EST Office Visit [facility] [address] [place] [address] 08/14/2025 9:15 AM EST Office Visit [address] [address] Nupur Weir ANP [address] [place] [address] 09/28/2025 9:30 AM EST Medication Management [address] [address] Fay Leigh, MayoD [address] [place] [address] documented as of this encounter Visit Diagnoses Diagnosis Back pain, unspecified back location, unspecified back pain laterality, unspecified chronicity documented in this encounter Additional Health Concerns Assessment Noted Time PHQ-9 Depression Total Score: 17 025 10:08 AM EDT documented as of this encounter Care Teams Vp Global Relationship Specialty Start Date End Date Nupur Weir ANP [address] [place] [address] PCP - General Family Medicine 01/16/20 Abel Chavarria RN [address] [place] [address] Registered Nurse Family Medicine 02/26/25 06/18/25 Margareth Chavarria 02/26/25 documented as of this encounter
--- OUTSIDE RECORDS SUMMARY | 2025-06-20 20:09 | XMS_ITS | Encounter Summary ---
Author Organization [employer] Address [address] [facility] [address] [address] 7t [place] [address] Care Team Providers Care Personnel Security Specialist Name Role Phone Michael Yanez Primary Care Provider [phone] Abel Chavarria RN Unavailable [phone] Margareth Chavarria Unavailable Encounter Details Date Type Department Care Team (Late st Contact Info) Description 06/13/2025 Orders Only GENERIC EXTERNAL DATA DEPARTMENT Provider, [...] Description 07/10/2025 9:45 AM EST Office Visit [address] [address] 08/07/2025 9:45 AM EST Office Visit [address] [address] 08/14/2025 9:15 AM EST Office Visit [address] [address] Michael Yanez, ANP [address] [place] [address] 09/28/2025 9:30 AM EST Medication Management [address] [address] Fay Leigh, PharmD [address] [place] [address] documented as of this encounter Procedures Procedure Name Priority Date/Time Associated Diagnosis Comments GROSS AND MICROSCOPIC LEVEL 3 Routine 06/13/2025 1:40 PM EDT documented in this encounter Results * Gross and Microscopic Level 3 (06/13/2025 1:40 PM EDT) 06/13/2025 1:40 PM EDT 06/14/2025 7:46 AM EDT [facility] - 06/15/2025 12:59 PM EDT ----- ------- Name: Laura Gonzalez Age/Sex: 60/F : 1965 Unit#: [id number] Attend Dr: Preston Barksdale PA-C Re06/13/25 Status: DEP REF Location: HO.LNP Disch: ----- ------- SPEC : [id number] RECD: 06/14/25 STATUS: CIELO PRICE NUM: [id number] ANGELA: 06/13/[address] [facility] [address]: Preston Barksdale PA-C ENTERED: 06/14/25 SP TYPE: Surgical OTHR DR: MICHAEL YANEZ NP ORDERED: Gross Micro L3 Diagnosis Skin, mid chest lesion, excision: Ruptured epidermal inclusion cyst and associated marked granulation tissue formation; no malignancy identified. Clinical History Mid chest, lesion at piercing site Microscopic Description Microscopic sections reviewed. Material Received Mid chest, lesion at piercing site Gross Description Received in formalin labeled mid chest-lesion at piercing site is an unoriented ellipse of skin measuring 2.5 x 1.0 cm in greatest dimension which has been excised to a depth of 0.5 cm. The skin surface is marti and smooth. Located at a distance of 0.3 cm from one longitudinal l pole of the specimen is a dome-shaped, grissom-marti lesion measuring 0.5 cm in diameter which is surrounded by a border of uninvolved skin ranging from 0.1 to 1.5 cm. The underside is composed of white subcutis that is grossly unremarkable. The margins of excision are inked blue. The longitudinal poles are submitted in cassette A1, 2 pieces. The remainder of the specimen is serially sectioned across the short axis and entirely submitted for microscopic examination in cassettes A2 and A3, 4 pieces each, with sections through the described surface lesion in cassette A2. ([facility]) IHC S/NG Disclaimer NOTE: Unless otherwise stated, all tissue is formalin-fixed and paraffin-embedded. Some or all of the immunohistochemical tests reported herein may have been developed and their performance characteristics determined by [facility]. They have not been cleared or approved by the U.S. Food and Drug Administration (FDA). However, the FDA has determined that such clearance or approval is not necessary. This laboratory is certified under the Clinical Laboratory Improvement Amendments of 1988 (CLIA) as qualified to perform high complexity clinical laboratory testing. CONTINUED ON NEXT PAGE ----- ------- Name: Laura Gonzalez Age/Sex: 60/F : 1965 Unit#: [id number] Attend Dr: Preston Barksdale PA-C Re06/13/25 Status: DEP [facility] ----- ------- SPEC : [id number] RECD: 06/14/25 STATUS: CIELO PRICE NUM: [id number] ANGELA: 06/13/[address] [facility] [address]: Preston Barksdale PA-C ENTERED: 06/14/25 SP TYPE: Surgical OTHR DR: MICHAEL YANEZ NP ORDERED: Gross Micro L3 Copies To: Preston Barksdale PA-C [facility] General Surgeons [address] [place] [address] [place] [address] [email or web address] MICHAEL YANEZ NP [address] [address] ----- ------- Signed (signature on file) Messi Anaya MD 06/15/25 1259 ----- ------- END OF REPORT us Generic External Data Provider LAB CYTOLOGY MARÍA NAJERA Final Result [facility] [address] [place] [address] [phone] documented in this encounter Visit Diagnoses Not on filedocumented in this encounter Additional Health Concerns Assessment Noted Time PHQ-9 Depression Total Score: 17 08/ 025 10:08 AM EDT documented as of this encounter Care Teams Personnel Security Specialist Relationship Specialty Start Date End Date Michael Yanez ANP [address] [place] [address] PCP - General Family Medicine 01/16/20 Abel Chavarria RN [address] [place] [address] Registered Nurse Family Medicine 02/26/25 06/18/25 Margareth Chavarria 02/26/25 documented as of this encounter
--- OUTSIDE RECORDS SUMMARY | 2025-06-20 20:09 | XMS_ITS | Encounter Summary ---
Author Organization [employer] Address 75 [facility] 7t [place] [address] Care Team Providers Care Plastic Installer Name Role Phone Nupur Weir Primary Care Provider [phone] Abel Chavarria RN Unavailable [phone] Margareth Chavarria Unavailable Reason for Visit * Reason Onset Date Comments Med Refill 10/01/2023 Encounter Details Date Type Department Care Team (Late st Contact Info) Description 10/01/2023 Telephone [facility] 230 [place], [place] [phone] Nupur Weir ANP [address] [place], [place] [phone] Med Refill Social History Tobacco Use Types [...] Base) MCG/ACT inhaler To be sent to: [id number] [place], [place] - [address] [place] [address] documented in this encounter Plan of Treatment Upcoming Encounters Date Type Department Care Team (Late st Contact Info) Description 07/10/2025 9:45 AM EST Office Visit [address] [address] 08/07/2025 9:45 AM EST Office Visit [address] [address] 08/14/2025 9:15 AM EST Office Visit [address] [address] Nupur Weir ANP [address] [place] [address] 09/28/2025 9:30 AM EST Medication Management [address] [address] Fay Leigh, PharmD [address] [place] [address] documented as of this encounter Visit Diagnoses Not on filedocumented in this encounter Care Teams Plastic Installer Relationship Specialty Start Date End Date Nupur Weir ANP [address] [place], [place] [phone] PCP - General Family Medicine 01/16/20 Abel Chavarria, ILENE [address] [place] [address] Registered Nurse Family Medicine 02/26/25 06/18/25 Margareth Chavarria 02/26/25 documented as of this encounter
--- OUTSIDE RECORDS SUMMARY | 2025-06-20 20:09 | XMS_ITS | Encounter Summary ---
Author Organization [employer] Address [address] [facility] [address] 7t [place] [address] Care Team Providers Care Taffy Candy Maker Name Role Phone Nupur Weir Primary Care Provider [phone] Abel Chavarria RN Unavailable [phone] Margareth Chavarria Unavailable Reason for Visit * Reason Onset Date Comments Medication Question 06/18/2025 Encounter Details Date Type Department Care Team (Late st Contact Info) Description 06/18/2025 Telephone [facility] 230 [place], [place] [phone] Nupur Weir ANP 230 [place], [place] [phone] Medication Question Social History Tobacco Use Types [...] encounter Miscellaneous Notes * Telephone Encounter - Willie Garrido - 06/18/2025 12:15 PM EDT TC from pt requesting a call back regarding traMADol (Ultram) 50 MG tablet . Pt reports only received 21 tablets when they were providing her with 45 tablets. documented in this encounter Plan of Treatment Upcoming Encounters Date Type Department Care Team ([facility] st Contact Info) Description 07/10/2025 9:45 AM EST Office Visit [facility] [address] [place] [address] 08/07/2025 9:45 AM EST Office Visit [facility] [address] [place] [address] 08/14/2025 9:15 AM EST Office Visit [address] [address] Nupur Weir ANP [address] [place], [place] [phone] 09/28/2025 9:30 AM EST Medication Management [address] [address] Fay Leigh PharmD [address] [place] [address] documented as of this encounter Visit Diagnoses Not on filedocumented in this encounter Additional Health Concerns Assessment Noted Time PHQ-9 Depression Total Score: 17 025 10:08 AM EDT documented as of this encounter Care Teams Taffy Candy Maker Relationship Specialty Start Date End Date Nupur Weir ANP [address] [place] [address] PCP - General Family Medicine 01/16/20 Abel Chavarria, ILENE [address] [place] [address] Registered Nurse Family Medicine 02/26/25 06/18/25 Margareth Chavarria 02/26/25 documented as of this encounter
--- OUTSIDE RECORDS SUMMARY | 2025-06-20 20:09 | XMS_ITS | Encounter Summary ---
Author Organization [employer] Address 75 [facility] 7t [place] [address] Care Team Providers Care Banking Officer Name Role Phone Nupur Weir BATOOL Primary Care Provider [phone] Margareth Chavarria Unavailable Reason for Visit * Reason Comments Med Refill Encounter Details Date Type Department Care Team ([facility] st Contact Info) Description 06/19/2025 Refill [facility] 230 [place] [address] Jill Rivero MD 230 [place] [address] Primary hypertension Social History Tobacco Use Types Packs/Day Years [...] Description 07/10/2025 9:45 AM EST Office Visit [address] [address] 08/07/2025 9:45 AM EST Office Visit [address] [address] 08/14/2025 9:15 AM EST Office Visit [address] [address] Nupur Weir, BATOOL [address] [place] [address] 09/28/2025 9:30 AM EST Medication Management [address] [address] Fay Leigh, MayoD [address] [place] [address] documented as of this encounter Visit Diagnoses Diagnosis Primary hypertension Unspecified essential hypertension documented in this encounter Additional Health Concerns Assessment Noted Time PHQ-9 Depression Total Score: 17 04/12/ 025 10:08 AM EDT documented as of this encounter Care Teams Banking Officer Relationship Specialty Start Date End Date Nupur Weir ANP [address] [place] [address] PCP - General Family Medicine 01/16/20 Margareth Chavarria 02/26/25 documented as of this encounter
--- OUTSIDE RECORDS SUMMARY | 2025-06-20 20:09 | XMS_ITS | Encounter Summary ---
Author Organization [employer] Address [address] [facility] [address] 7t [place] [address] Care Team Providers Care Activity Coordinator Name Role Phone Nupur Weir Primary Care Provider [phone] Abel Chavarria RN Unavailable [phone] Margareth Chavarria Unavailable Reason for Visit * Reason Comments Med Refill Encounter Details Date Type Department Care Team (Late st Contact Info) Description 11/11/2023 Refill [facility] 230 [place], [place] [phone] Nupur Weir ANP 230 [place] [address] Social History Tobacco Use Types Packs/Day Years [...] Description 07/10/2025 9:45 AM EST Office Visit [address] [address] 08/07/2025 9:45 AM EST Office Visit [address] [address] 08/14/2025 9:15 AM EST Office Visit [address] [address] Nupur Weir ANP [address] [place] [address] 09/28/2025 9:30 AM EST Medication Management [address] [address] Fay Leigh, PharmD [address] [place] [address] documented as of this encounter Visit Diagnoses Not on filedocumented in this encounter Care Teams Activity Coordinator Relationship Specialty Start Date End Date Nupur Weir ANP [address] [place] [address] PCP - General Family Medicine 01/16/20 Abel Chavarria RN [address] [place] [address] AMMY Mirza [address] Registered Nurse Family Medicine 02/26/25 06/18/25 Margareth Chavarria 02/26/25 documented as of this encounter
--- OUTSIDE RECORDS SUMMARY | 2025-06-20 20:09 | XMS_ITS | Encounter Summary ---
Author Organization [employer] Address [address] [facility] [address] 7t [place] [address] Care Team Providers Care Service Delivery Analyst Name Role Phone Nupur Weir Primary Care Provider [phone] Abel Chavarria RN Unavailable [phone] Margareth Chavarria Unavailable Reason for Visit * Reason Comments Med Refill Encounter Details Date Type Department Care Team (Late st Contact Info) Description 02/11/2024 Refill [facility] MEDICINE 230 [place], [place] [phone] Nupur Weir ANP 230 [place] [address] Social History Tobacco Use Types Packs/Day Years [...] Description 07/10/2025 9:45 AM EST Office Visit [address] [address] 08/07/2025 9:45 AM EST Office Visit [address] [address] 08/14/2025 9:15 AM EST Office Visit [address] [address] Nupur Weir ANP [address] [place] [address] 09/28/2025 9:30 AM EST Medication Management [address] [address] Fay Leigh, PharmD [address] [place] [address] documented as of this encounter Visit Diagnoses Not on filedocumented in this encounter Care Teams Service Delivery Analyst Relationship Specialty Start Date End Date Nupur Weir ANP [address] [place] [address] PCP - General Family Medicine 01/16/20 Abel Chavarria RN [address] [place] [address] AMMY Mirza [address] Registered Nurse Family Medicine 02/26/25 06/18/25 Margareth Chavarria 02/26/25 documented as of this encounter
--- OUTSIDE RECORDS SUMMARY | 2025-06-20 20:09 | XMS_ITS | Encounter Summary ---
Author Organization [employer] Address [address] [facility] [address] 7t [place] [address] Care Team Providers Care Rn Post Partum Name Role Phone Nupur Weir Primary Care Provider [phone] Abel Chavarria RN Unavailable [phone] Margareth Chavarria Unavailable Reason for Visit * Reason Comments Med Refill Encounter Details Date Type Department Care Team (Late st Contact Info) Description 02/11/2024 Refill [facility] 230 [place], [place] [phone] Marcella Colindres MD 230 [place] [address] Gastritis medicamentosa Social History Tobacco Use Types [...] Description 07/10/2025 9:45 AM EST Office Visit [address] [address] 08/07/2025 9:45 AM EST Office Visit [address] [address] 08/14/2025 9:15 AM EST Office Visit [address] [address] Nupur Weir ANP [address] [place] [address] 09/28/2025 9:30 AM EST Medication Management [address] [address] Fay Leigh, PharmD [address] [place] [address] documented as of this encounter Visit Diagnoses Diagnosis Gastritis medicamentosa Other specified gastritis without mention of hemorrhage documented in this encounter Care Teams Rn Post Partum Relationship Specialty Start Date End Date Nupur Weir ANP [address] [place] [address] PCP - General Family Medicine 01/16/20 Abel Chavarria RN [address] [place] [address] [place] [address] Registered Nurse Family Medicine 02/26/25 06/18/25 Margareth Chavarria 02/26/25 documented as of this encounter
--- OUTSIDE RECORDS SUMMARY | 2025-06-20 20:10 | XMS_ITS | Encounter Summary ---
Author Organization [employer] Address 75 [facility] 7t [place] [address] Care Team Providers Care Multimedia Engineer Name Role Phone Nupur Weir Primary Care Provider [phone] Abel Chavarria RN Unavailable [phone] Margareth Chavarria Unavailable Encounter Details Date Type Department Care Team (Latest Contact Info) Description 03/26/2022 Abstract [facility] CONVERSIONS Dental, Provider, DDS Social [...] 9:45 AM EST Office Visit [facility] MEDICINE [address] [place] [phone] 08/07/2025 9:45 AM EST Office Visit [facility] MEDICINE [address] [place] [address] [phone] 08/14/2025 9:15 AM EST Office Visit [facility] MEDICINE [address] [place] [address] Nupur Weir ANP 230 [place], [place] [phone] 09/28/2025 9:30 AM EST Medication Management [facility] MEDICINE 230 [place], [place] [phone] Fay Leigh, Elba [address] [place] [address] documented as of this encounter Visit Diagnoses Not on filedocumented in this encounter Care Teams Multimedia Engineer Relationship Specialty Start Date End Date Nupur Weir ANP [address] [place] [address] PCP - General Family Medicine 01/16/20 Abel Chavarria, ILENE [address] [place] [address] Registered Nurse Family Medicine 02/26/25 06/18/25 Margareth Chavarria 02/26/25 documented as of this encounter
--- OUTSIDE RECORDS SUMMARY | 2025-06-20 20:10 | XMS_ITS | Encounter Summary ---
Author Organization [employer] Address [address] [facility] [address] 7t [place] [address] Care Team Providers Care Edger Machine Helper Name Role Phone Nupur Weir Primary Care Provider [phone] Abel Chavarria RN Unavailable [phone] Margareth Chavarria Unavailable Reason for Visit * Reason Onset Date Comments Med Refill 07/26/2024 Encounter Details Date Type Department Care Team (Late st Contact Info) Description 07/26/2024 Telephone [facility] 230 [place], [place] [phone] Nupur Weir ANP 230 [place], [place] [phone] Med Refill Social History Tobacco Use Types [...] 50 MG tablet To be sent to: [id number] - [place], [place] - [address] [facility] documented in this encounter Plan of Treatment Upcoming Encounters Date Type Department Care Team ([facility] st Contact Info) Description 07/10/2025 9:45 AM EST Office Visit [facility] [address] [place] [address] 08/07/2025 9:45 AM EST Office Visit [facility] [address] [place] [address] 08/14/2025 9:15 AM EST Office Visit [address] [address] Nupur Weir ANP [address] [place] [address] 09/28/2025 9:30 AM EST Medication Management [address] [address] Fay Leigh, Elba [address] [place] [address] documented as of this encounter Visit Diagnoses Not on filedocumented in this encounter Care Teams Edger Machine Helper Relationship Specialty Start Date End Date Nupur Weir ANP [address] [place] [address] PCP - General Family Medicine 01/16/20 Abel Chavarria RN [address] [place] [address] Registered Nurse Family Medicine 02/26/25 06/18/25 Margareth Chavarria 02/26/25 documented as of this encounter
--- OUTSIDE RECORDS SUMMARY | 2025-06-20 20:10 | XMS_ITS ---
Author Organization [employer] Address [address] [facility] 7 [place] [address] Care Team Providers Care Machinist Class B Name Role Phone Nupur Weir Primary Care Provider [phone] Margareth Chavarria Unavailable CM Complex Status:Closed (Closed) Start date:02/26/2025 Enrollment date:03/15/2025 Enrollment reason:ADT Feed End date:06/18/2025 Close reason:Goals Met Overview ED- [facility] [place] [facility]. Continued Care and Services Coordination
--- OUTSIDE RECORDS SUMMARY | 2025-06-20 20:10 | XMS_ITS | Encounter Summary ---
Author Organization [employer] Address [address] [facility] [address] 7t [place] [address] Care Team Providers Care Maintenance Millwright Name Role Phone Nupur Weir Primary Care Provider [phone] Abel Chavarria RN Unavailable [phone] Margareth Chavarria Unavailable Reason for Visit * Reason Onset Date Comments Med Refill 12/22/2024 Encounter Details Date Type Department Care Team (Late st Contact Info) Description 12/22/2024 Telephone [facility] 230 [place], [place] [phone] Nupur Weir ANP 230 [place], [place] [phone] Med Refill Social History Tobacco Use Types [...] 50 MG tablet To be sent to: [facility] [place], [place] - [address] [place] [address] documented in this encounter Plan of Treatment Upcoming Encounters Date Type Department Care Team ([facility] st Contact Info) Description 07/10/2025 9:45 AM EST Office Visit [facility] [address] [place] [address] 08/07/2025 9:45 AM EST Office Visit [facility] [address] [place] [address] 08/14/2025 9:15 AM EST Office Visit [address] [address] Nupur Weir ANP [address] [place] [address] 09/28/2025 9:30 AM EST Medication Management [address] [address] Fay Leigh, PharmD [address] [place] [address] documented as of this encounter Visit Diagnoses Not on filedocumented in this encounter Care Teams Maintenance Millwright Relationship Specialty Start Date End Date Nupur Weir ANP [address] [place] [address] PCP - General Family Medicine 01/16/20 Abel Chavarria RN [address] [place] [address] Registered Nurse Family Medicine 02/26/25 06/18/25 Margareth Chavarria 02/26/25 documented as of this encounter
--- OUTSIDE RECORDS SUMMARY | 2025-06-20 20:10 | XMS_ITS | Encounter Summary ---
Author Organization [employer] Address [address] [facility] [address] 7t [place] [address] Care Team Providers Care Spring Internship Name Role Phone Nupur Weir Primary Care Provider [phone] Abel Chavarira RN Unavailable [phone] Margareth Chavarria Unavailable Reason for Visit * Reason Comments Med Refill Encounter Details Date Type Department Care Team (Late st Contact Info) Description 03/11/2025 Refill [facility] MEDICINE 230 [place], [place] [phone] Nupur Weir ANP 230 [place] [address] Arthralgia, unspecified joint Social History Tobacco Use [...] Description 07/10/2025 9:45 AM EST Office Visit [address] [address] 08/07/2025 9:45 AM EST Office Visit [address] [address] 08/14/2025 9:15 AM EST Office Visit [address] [address] Nupur Weir ANP 230 [place] [address] 09/28/2025 9:30 AM EST Medication Management [address] [address] Fay Leigh, PharmD 230 [place] [address] documented as of this encounter Visit Diagnoses Diagnosis Arthralgia, unspecified joint documented in this encounter Care Teams [employer] Internship Relationship Specialty Start Date End Date Nupur Weir ANP 230 [place], [place] [phone] PCP - General Family Medicine 01/16/20 Abel Chavarria, ILENE [address] [place] [address] Registered Nurse Family Medicine 02/26/25 06/18/25 Margareth Chavarria 02/26/25 documented as of this encounter
--- OUTSIDE RECORDS SUMMARY | 2025-06-20 20:10 | XMS_ITS | Encounter Summary ---
Author Organization [employer] Address [address] [place] [address] Care Team Providers Care Business Management Consultant Name Role Phone Nupur Weir Primary Care Provider [phone] Abel Chavarria RN Unavailable [phone] Margareth Chavarria Unavailable Reason for Visit * Reason Comments Med Refill Encounter Details Date Type Department Care Team (Late st Contact Info) Description 07/22/2024 Refill [facility] 230 [place], [place] [phone] Nupur Weir ANP 230 [place] [address] Social History Tobacco Use Types Packs/Day Years [...] Description 07/10/2025 9:45 AM EST Office Visit [address] [address] 08/07/2025 9:45 AM EST Office Visit [address] [address] 08/14/2025 9:15 AM EST Office Visit [address] [address] Nupur Weir ANP 230 [place] [address] 09/28/2025 9:30 AM EST Medication Management [address] [address] Fay Leigh, MayoD [address] [place] [address] documented as of this encounter Visit Diagnoses Not on filedocumented in this encounter Care Teams Business Management Consultant Relationship Specialty Start Date End Date Nupur Weir ANP 230 [place] [address] PCP - General Family Medicine 01/16/20 Abel Chavarria RN [address] [place] [address] Registered Nurse Family Medicine 02/26/25 06/18/25 Margareth Chavarria 02/26/25 documented as of this encounter
--- OUTSIDE RECORDS SUMMARY | 2025-06-20 20:10 | XMS_ITS | Encounter Summary ---
Author Organization [employer] Address [address] 7[address] [place] [address] Care Team Providers Care Seat Cover Cutter Name Role Phone Nupur Weir Primary Care Provider [phone] Abel Chavarria RN Unavailable [phone] Margareth Chavarria Unavailable Encounter Details Date Type Department Care Team (Late st Contact Info) Description 07/05/2024 Telephone [facility] D[facility] 230 [place] [address] Yarelis Rosales DDS [address] [place] [address] Social History Tobacco Use Types Packs/Day Years [...] your housing situation today? I have michael iglbert 06/13/[address] you li [...] Description 07/10/2025 9:45 AM EST Office Visit [facility] [address] [place] [address] 08/07/2025 9:45 AM EST Office Visit [address] [address] 08/14/2025 9:15 AM EST Office Visit [address] [address] Nupur Weir ANP [address] [place] [address] 09/28/2025 9:30 AM EST Medication Management [address] [address] Fay Leigh, MayoD 230 [place] [address] documented as of this encounter Visit Diagnoses Not on filedocumented in this encounter Care Teams Seat Cover Cutter Relationship Specialty Start Date End Date Nupur Weir ANP 230 [place] [address] PCP - General Family Medicine 01/16/20 Abel Chavarria, ILENE [address] [place] [address] Registered Nurse Family Medicine 02/26/25 06/18/25 Margareth Chavarria 02/26/25 documented as of this encounter
--- OUTSIDE RECORDS SUMMARY | 2025-06-20 20:10 | XMS_ITS | Encounter Summary ---
Author Organization [employer] Address [address] 7[address] [place] [address] Care Team Providers Care Oil Field Operator Name Role Phone Nupur Weir Primary Care Provider [phone] Abel Chavarria RN Unavailable [phone] Margareth Chavarria Unavailable Reason for Visit * Reason Comments Med Refill Encounter Details Date Type Department Care Team (Late st Contact Info) Description 03/22/2024 Refill [facility] 230 [place], [place] [phone] Marcella Colindres MD 230 [place] [address] Acute pyelonephritis Social History Tobacco Use Types [...] Description 07/10/2025 9:45 AM EST Office Visit [address] [address] 08/07/2025 9:45 AM EST Office Visit [address] [address] 08/14/2025 9:15 AM EST Office Visit [address] [address] Nupur Weir ANP [address] [place] [address] 09/28/2025 9:30 AM EST Medication Management [address] [address] Fay Leigh, PharmD [address] [place] [address] documented as of this encounter Visit Diagnoses Diagnosis Acute pyelonephritis 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
--- OUTSIDE RECORDS SUMMARY | 2025-06-20 20:10 | XMS_ITS ---
Author Organization [employer] Address [address] [facility] 7 [place] [address] Care Team Providers Care Cigarette Machine Filler Name Role Phone Nupur Weir Primary Care Provider [phone] Margareth Chavarria CHW Complex Status:Enrolled (Active) Start date:02/26/2025 Enrollment date:03/15/2025 Enrollment reason:ADT Feed Overview ED- Pt went to [facility] on 02/24/25. Please outreach for enrollment. [place] Case Team Name Relationship Phone Margareth Chavarria(Responsible Staff) [phone] Continued Care and Services Coordination
--- OUTSIDE RECORDS SUMMARY | 2025-06-20 20:10 | XMS_ITS | Encounter Summary ---
Author Organization [employer] Address [address] [facility] [address] [place] [address] Care Team Providers Care Overlay Plastician Name Role Phone Nupur Weir Primary Care Provider [phone] Abel Chavarria RN Unavailable [phone] Margareth Chavarria Unavailable Reason for Visit * Reason Comments Med Refill Encounter Details Date Type Department Care Team (Late st Contact Info) Description 12/22/2024 Refill [facility] MED[facility] 230 [place], [place] [phone] Nupur Weir ANP 230 [place] [address] Arthralgia, unspecified joint Social History Tobacco Use [...] 07/10/2025 9:45 AM EST Office Visit [address] [address] 08/07/2025 9:45 AM EST Office Visit [address] [address] 08/14/2025 9:15 AM EST Office Visit [address] [address] Nupur Weir, BATOOL 230 [place] [address] 09/28/2025 9:30 AM EST Medication Management [address] [address] Fay Leigh, MayoD 230 [place] [address] documented as of this encounter Visit Diagnoses Diagnosis Arthralgia, unspecified joint documented in this encounter Care Teams Overlay Plastician Relationship Specialty Start Date End Date Nupur Weir ANP 230 [place] [address] PCP - General Family Medicine 01/16/20 Abel Chavarria, ILENE [address] [place] [address] Registered Nurse Family Medicine 02/26/25 06/18/25 Margareth Chavarria 02/26/25 documented as of this encounter
--- OUTSIDE RECORDS SUMMARY | 2025-06-20 20:10 | XMS_ITS | Encounter Summary ---
Author Organization [employer] Address [address] [facility] 7t [place] [address] Care Team Providers Care Coffee Roaster Helper Name Role Phone Nupur Weir Primary Care Provider [phone] Abel Chavarria RN Unavailable [phone] Margareth Chavarria Unavailable Reason for Visit * Reason Onset Date Comments Med Refill 05/14/2023 Encounter Details Date Type Department Care Team (Late st Contact Info) Description 05/14/2023 Telephone [facility] MED[facility]INE 230 [place], [place] [phone] Nupur Weir ANP 230 [place], [place] [phone] Med Refill Social History Tobacco Use Types [...] Upcoming Encounters Date Type Department Care Team ([facility] st Contact Info) Description 07/10/2025 9:45 AM EST Office Visit [address] [address] 08/07/2025 9:45 AM EST Office Visit [address] [address] 08/14/2025 9:15 AM EST Office Visit [address] [address] Nupur Weir ANP [address] [place] [address] 09/28/2025 9:30 AM EST Medication Management [address] [address] Fay Leigh, PharmD [address] [place] [address] documented as of this encounter Visit Diagnoses Not on filedocumented in this encounter Care Teams Coffee Roaster Helper Relationship Specialty Start Date End Date Nupur Weir ANP [address] [place] [address] PCP - General Family Medicine 01/16/20 Abel Chavarria, RN [address] [place] [address] Registered Nurse Family Medicine 02/26/25 06/18/25 Margareth Chavarria 02/26/25 documented as of this encounter
--- OUTSIDE RECORDS SUMMARY | 2025-06-20 20:10 | XMS_ITS | Encounter Summary ---
Author Organization [employer] Address [address] [facility] 7t [place] [address] Care Team Providers Care Spectroscopist Name Role Phone Nupur Weir Primary Care Provider [phone] Abel Chavarria RN Unavailable [phone] Margareth Chavarria Unavailable Encounter Details Date Type Department Care Team (Late st Contact Info) Description 08/14/2022 Abstract [facility] ADULT D[facility]AL 230 [place] [address] Angel Lagos, CAPRI [address] [place] [address] Social History Tobacco Use Types Packs/Day Years [...] 9:45 AM EST Office Visit [facility] [address] [place] [address] 08/07/2025 9:45 AM EST Office Visit [address] [phone] 08/14/2025 9:15 AM EST Office Visit [address] [address] Nupur Weir ANP [address] [place] [address] 09/28/2025 9:30 AM EST Medication Management [address] [address] Fay Leigh PharmD [address] [place] [address] [phone] documented as of this encounter Visit Diagnoses Not on filedocumented in this encounter Care Teams Spectroscopist Relationship Specialty Start Date End Date Nupur Weir ANP [address] [place] [phone] PCP - General Family Medicine 01/16/20 Abel Chavarria RN [address] [place] [address] Registered Nurse Family Medicine 02/26/25 06/18/25 Margareth Chavarria 02/26/25 documented as of this encounter
--- OUTSIDE RECORDS SUMMARY | 2025-06-20 20:10 | XMS_ITS | Encounter Summary ---
Author Organization [employer] Address [address] [facility] [address] [address] [place] [address] Care Team Providers Care Pediatric Intensive Physician Name Role Phone Nupur Weir Primary Care Provider [phone] Abel Chavarria RN Unavailable [phone] Margareth Chavarria Unavailable Encounter Details Date Type Department Care Team (Late st Contact Info) Description 04/11/2024 Orders Only [facility] 230 [place], [place] [phone] Nupur Weir ANP 230 [place], [place] [phone] Social History Tobacco Use Types Packs/Day Years [...] Description 07/10/2025 9:45 AM EST Office Visit [address] [address] 08/07/2025 9:45 AM EST Office Visit [address] [address] 08/14/2025 9:15 AM EST Office Visit [address] [address] Nupur Weir ANP [address] [place] [address] 09/28/2025 9:30 AM EST Medication Management [address] [address] Fay Leigh, PharmD [address] [place] [address] documented as of this encounter Visit Diagnoses Not on filedocumented in this encounter Care Teams Pediatric Intensive Physician Relationship Specialty Start Date End Date Nupur Weir ANP [address] [place] [address] PCP - General Family Medicine 01/16/20 Abel Chavarria RN [address] [place] [address], [place] [address] Registered Nurse Family Medicine 02/26/25 06/18/25 Margareth Chavarria 02/26/25 documented as of this encounter
--- OUTSIDE RECORDS SUMMARY | 2025-06-20 20:10 | XMS_ITS | Clinical Summary ---
Author Organization [employer] Address [address] [place] [address] Care Team Providers Care Belt And Link Shop Supervisor Name Role Phone Michael Yanez BATOOL Primary Care Provider [phone] Margareth Chavarria Unavailable Allergies Active Allergy Reactions [...] Intertrigo Apply twice daily for 14-28d to [facility] area 30 g 025 Active Cholecalciferol (Vitamin [...] MORNING BEFORE BREAKFAST 90 tablet 1 Active cyclobenzaprine (Flexeril) 10 MG tablet Take 1 tablet (10 mg) by mouth at bedtime for 10 days. 10 tablet 025 Active gabapentin (Neurontin) 100 MG [...] crush, chew, or split. 45 tablet 1 Active SUMAtriptan Succinate 4 MG/0.5ML solution auto-injectorIndi cations:Migraine with aura and without status migrainosus, not intractable ADMINISTER 0.5 ML UNDER THE SKIN ONCE NEEDED FOR MIGRAINE. CAN REPEAT ONCE IN 1 HOUR IF NOT EFFECTIVE. 1 mL 2 Active fluticasone (Flonase) 50 MCG/ACT nasal spray SPRAY 2 SPRAYS IN EACH NOSTRIL ONCE DAILY 16 g 1 025 Active ibuprofen 400 MG tablet Take [...] WITH IRON supplement 90 tablet 025 Active Mometasone Furoate (Asmanex HFA) 100 MCG/ACT aerosol INHALE 1 PUFF BY MOUTH EVERY 12 HOURS RINSE MOUTH AFTER USING. 13 g 1 025 Active traMADol (Ultram) 50 MG tabletIndications :Back pain, unspecified back location, unspecified back pain laterality, unspecified chronicity Take 1 tablet (50 mg) by mouth every 8 (eight) hours if needed for severe pain for up to 14 days. Do not start before June 21, 2025. 42 tablet 025 2024 Active losartan (Cozaar) 50 MG tabletIndications :Primary hypertension TAKE 1 TABLET BY MOUTH EVERY MORNING 90 tablet 025 Active meloxicam (Mobic) 15 MG tablet TAKE 1 TABLET BY MOUTH ONCE DAILY 30 tablet Active SUMAtriptan Succinate 4 MG/0.5ML solution auto-injectorIndi [...] eorder (will not trigger notification to Pharmacy)) Mometasone Furoate (Asmanex HFA) 100 MCG/ACT aerosol INHALE 1 PUFF EVERY TWELVE HOURS 13 g 1 025 2024 Discontinued meloxicam (Mobic) 15 MG tablet Take 1 tablet (15 mg) by mouth Once per day. 30 tablet 025 2024 Discontinued Ascorbic Acid (vitamin C) 500 MG tabletIndications :Iron deficiency anemia, unspecified iron deficiency anemia type TAKE 1 TABLET BY MOUTH EVERY EVENING WITH IRON supplement 90 tablet 025 2024 Discontinued(R eorder (will not trigger notification to Pharmacy)) losartan (Cozaar) 50 MG tabletIndications :Primary hypertension TAKE 1 TABLET BY MOUTH EVERY MORNING 90 tablet 2024 Discontinued acetaminophen (Tylenol Extra Strength) 500 [...] for up to 14 days. 42 tablet 2024 Discontinued(R eorder (will not trigger notification to Pharmacy)) meloxicam (Mobic) 15 MG tablet TAKE 1 TABLET BY MOUTH ONCE DAILY 30 tablet 2024 Discontinued(R eorder (will not trigger notification to Pharmacy)) traMADol (Ultram) 50 MG tabletIndications :Long-term current use of opiate analgesic,Back pain, unspecified back location, unspecified back pain laterality, unspecified chronicity Take 1 tablet (50 mg) by mouth every 8 (eight) hours if needed for severe pain for up to 7 days. 21 tablet 2024 acetaminophen (Tylenol 8 Hour) 650 MG ER tablet Take 1 tablet (650 mg) by mouth every 8 (eight) hours if needed for mild pain. Do not crush, chew, or split. 40 tablet 1 2024 Discontinued(R eorder (will not trigger notification to Pharmacy)) doxycycline (Vibramycin) 100 MG capsule Take 1 capsule (100 mg) by mouth 2 times daily for 7 days. Take with at least 8 ounces (large glass) of water, do not lie down for 30 minutes after 14 capsule 025 2024 traMADol (Ultram) 50 MG tabletIndications :Back pain, unspecified back location, unspecified back pain laterality, unspecified chronicity Take 1 tablet (50 mg) by mouth every 8 (eight) hours if needed for severe pain for up to 7 days. 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 UTOX unexpected. See lens dotter. Send out MTD and BZO confirmatory. Possible [...] organization. Date Type Department Care Team Description 06/19/2025 Refill [facility] [address] [place] [address] Michael Yanez ANP Arthralgia, unspecified joint 06/19/2025 Refill [facility] [address], [place] [phone] Jill Rivero MD Primary hypertension 06/18/2025 Refill [facility] [address] [place], [place] [phone] Kassy Ramsey RN Back pain, unspecified back location, unspecified back pain laterality, unspecified chronicity 06/18/[address] [address] Michael Yanez ANP Medication Question 06/18/2025 Patient Outreach [address] [address] Michael Yanez ANP Care Management (C3CM- f/u call) 06/17/2025 Refill [facility] [address] [place] [phone] Micheal Yanez ANP 06/13/2025 Orders Only GENERIC EXTERNAL DATA DEPARTMENT Provider, Generic External Data 06/12/2025 9:45 AM EDT Office Visit [address] [address] Anushka Gunter FNP Lumbar spondylosis (Primary Dx); Long-term current use of opiate analgesic 06/12/[address] [address] Chika Longo RN Back pain, unspecified back location, unspecified back pain laterality, unspecified chronicity (Primary Dx) 06/12/2025 Travel 06/07/2025 Patient Outreach [address] [address] Michael Yanez ANP Care Management (C3CM- f/u call lvm) 06/06/2025 Patient Outreach [address] [address] Michael Yanez ANP Care Coordination (C3/W KHUSHBU Edwards-Follow up) 06/05/2025 9:00 AM EDT Office Visit [facility] [address] [place] [phone] Jaleel Blokc MD Wound infection (Primary Dx) 06/05/[address] [address] Michael Yanez ANP Iron deficiency anemia, unspecified iron deficiency anemia type 05/31/[address] [address] Michael Yanez ANP dec recall 05/29/2025 Patient Outreach [address] [address] Michael Yanez ANP Care Management (C3CM- f/u call) 05/25/2025 10:00 AM EDT Office Visit [facility] [address] [place] [phone] Cecilia Johnson DO Pain and swelling of right lower leg (Primary Dx); Subcutaneous mass; Long-term current use of opiate analgesic; Back pain, unspecified back location, unspecified back pain laterality, unspecified chronicity 05/25/2025 Results Follow-Up [address] [address] Michael Yanez ANP US VENOUS DUPLEX LE RT, US Extremity Non Vascular Complete Joint Right 05/25/2025 Orders Only [address] [address] Cecilia Johnson DO 05/25/2025 Travel 05/25/2025 Refill [facility] [address] [place] [address] Marcella Colindres MD 05/25/2025 Refill [facility] [address] [address] Jaleel Block MD 05/23/2025 Patient Outreach [address] [address] Michael Yanez ANP Care Coordination (C3/W KHUSHBU Edwards- follow up call) 05/23/[address] [address] Michael Yanez ANP Migraine with aura and without status migrainosus, not intractable 05/15/2025 9:15 AM EDT Office Visit [address] [address] Michael Yanez ANP Cat bite, subsequent encounter (Primary Dx); Pure hypercholesterolemia ; Primary hypertension; Hypothyroidism, unspecified type 05/15/2025 Patient Outreach [address] [address] Michael Yanez ANP Care Management (C3- f/u call) 05/15/2025 Travel 05/14/[address] [address] Michael Yanez ANP chart prep 05/14/[address] [address] Julianne Anne RN AB Status Check 05/14/2025 Patient Outreach [address] [address] Michael Yanez ANP 05/13/2025 Orders Only GENERIC EXTERNAL DATA DEPARTMENT Provider, Generic External Data 05/11/2025 Patient Outreach [address] [address] Michael Yanez ANP 05/09/2025 5:40 PM EDT Office Visit [facility] [address] [address] Michael Yanez ANP Cat bite, subsequent encounter (Primary Dx); Puncture wound of calf, right, subsequent encounter 05/09/2025 Travel 05/08/2025 9:45 AM EDT Office Visit [address] [address] Anushka Gunter FNP Lumbar spondylosis (Primary Dx); Long-term current use of opiate analgesic 05/08/2025 Refill [facility] [address] [place] [address] Kassy Ramsey, ILENE Long-term current use of opiate analgesic; Back pain, unspecified back location, unspecified back pain laterality, unspecified chronicity 05/08/2025 Travel 05/07/2025 Patient Outreach [address] [address] Michael Yanez ANP Care Coordination (C3/CHW KHUSHBU Edwards- Appt reminder/PT-1 update) 05/06/2025 Results Follow-Up [facility] [address] [address] Jaleel Block MD CTA Chest PE Protocal 05/03/2025 Patient Outreach [address] [address] Michael Yanez ANP Care Coordination (C3/W Margareth Chavarria TC-Follow up/PT-1) 05/03/2025 Patient Outreach [facility] [address] [place] [address] Michael Yanez ANP Care Management (C3CM- f/u call) 05/01/2025 Orders Only [facility] [address] [place] [address] Jaleel Block MD 04/25/2025 Patient Outreach [address] [address] Michael Yanez ANP 04/23/2025 Patient Outreach [address] [address] Michael Yanez ANP Care Management (C3CM- f/u call) 04/18/2025 Refill [facility] [address] [place] [address] Michael Yanez ANP Long-term current use of opiate analgesic; Back pain, unspecified back location, unspecified back pain laterality, unspecified chronicity 04/17/2025 10:30 AM EDT Clinical Support [facility] [address] [place] [address] Kassy Ramsey, ILENE Long-term current use of opiate analgesic (Primary Dx) 04/17/2025 Refill [facility] [address] [place] [address] Michael Yanez ANP Iron deficiency anemia, unspecified iron deficiency anemia type 04/17/2025 Telephone [facility] [address] [place] [address] Kassy Ramsey, ILENE 04/17/2025 Travel 04/16/[address] [address] Michael Yanez ANP Iron deficiency anemia, unspecified iron deficiency anemia type 04/11/2025 4:00 PM EDT Office Visit [address] [address] Michael Yanez ANP Primary hypertension (Primary Dx); RUQ pain 04/11/2025 Orders Only GENERIC EXTERNAL DATA DEPARTMENT Provider, Generic External Data 04/11/2025 Travel 04/10/2025 9:45 AM EDT Office Visit [address] [address] Anushka Gunter FNP Lumbar spondylosis (Primary Dx); Long-term current use of opiate analgesic 04/10/2025 Patient Outreach [address] [address] Michael Yanez ANP Care Coordination (C3CM/CHW KHUSHBU Edwards- Appt reminder) 04/10/2025 Telephone [facility] [address] [place] [address] Kassy Ramsey, ILENE 04/10/[address] [address] Jaleel Block MD CTA Chest order 04/10/[address] [address] Michael Yanez ANP CHART PREP 04/10/2025 Telephone [facility] [address] [place] [address] Kassy Ramsey RN 04/10/2025 Travel 04/10/[address] [address] Michael Yanez ANP ER Follow-up 04/09/2025 Patient Outreach [address] [address] Michael Yanez ANP Care Management (C3CM- f/u call) 04/09/2025 Patient Outreach [address] [address] Michael Yanez ANP 04/06/2025 Patient Outreach [address] [address] Michael Yanez ANP Pre-visit Planning (SDOH screening completed on 02/26/25 ) 04/05/2025 Patient Outreach [address] [address] Michael Yanez ANP 04/05/2025 Telephone [facility] [address] [place] [address] Jaleel Block MD 04/05/2025 Orders Only [facility] [address] [place] [address] Jaleel Block MD Right-sided chest pain (Primary Dx); Hemoptysis 04/05/2025 Orders Only [facility] External Provider, [facility] 04/04/2025 9:40 AM EDT [facility] [address] [address] Jaleel Block MD Right-sided chest pain (Primary Dx); Hemoptysis 04/04/2025 Telephone [facility] [address] [address] Jaleel Block MD 04/04/2025 Orders Only [facility] [address] [address] Jaleel lBock MD 04/04/2025 Telephone [facility] [address] [place] [address] Jaleel Block MD 04/04/2025 Travel 03/28/2025 Patient Outreach [address] [address] Michael Yanez ANP Care Coordination (NATHALY/KHUSHBU Jurado- PT-1 Coordination) 03/27/2025 Patient Outreach [address] [address] Michael Yanez ANP Care Management (C3CM- f/u call) 03/22/2025 Orders Only GENERIC EXTERNAL DATA DEPARTMENT Provider, Generic External Data 03/22/2025 Travel 03/22/[address] [address] Michael Yanez ANP Long-term current use of opiate analgesic (Primary Dx); Back pain, unspecified back location, unspecified back pain laterality, unspecified chronicity 03/21/2025 Patient Outreach [address] [address] Michael Yanez ANP Care Coordination (C3ISAAK/KHUSHBU Jurado-Appt reminder-[facility]) from Last 3 Months Immunizations Immunization Administration [...] the past 12 months, has t he [place] city [place]the [employer] gas, oil or water company threatened to [...] Description 07/10/2025 9:45 AM EST Office Visit [facility] [address] [place] [address] 08/07/2025 9:45 AM EST Office Visit [facility] [address] [place] [address] 08/14/2025 9:15 AM EST Office Visit [facility] [address] [place] [address] Michael Yanez, ANP [address] [place] [address] 09/28/2025 9:30 AM EST Medication Management [facility] [address] [place] [address] Fay Leigh, PharmD [address] [place] [address] Health Maintenance Due Date Last Done Comments [...] LEVEL 3 Routine 06/13/2025 1:40 PM EDT POCT MERY-14 URINE DRUG SCREEN Routine 06/12/2025 [...] chest pain UREA NITROGEN (BUN) Routine 04/04/2025 2:21 PM EDT Right-sided chest pain CULTURE, URINE, [...] Recently Relevant to Health Maintenance Results * Gross and Microscopic Level 3 (06/13/2025 1:40 PM EDT) 06/13/2025 1:40 PM EDT 06/14/2025 7:46 AM EDT [facility] - 06/15/2025 12:59 PM EDT ----- ------- Name: Gladys Laura Melissa Age/Sex: 60/F : 1965 Unit#: [id number] Attend Dr: Preston Barksdale PA-C Re06/13/25 Status: DEP REF Location: HO.LNP Disch: ----- ------- SPEC : [id number] RECD: 06/14/25 STATUS: CIELO PRICE NUM: [id number] ANGELA: 06/13/[address] [facility] [address]: Preston Barksdale PA-C ENTERED: 06/14/25 SP [...] the described surface lesion in cassette A2. ([facility]) IHC S/NG Disclaimer NOTE: Unless otherwise stated, all tissue is formalin-fixed and paraffin-embedded. Some or all of the immunohistochemical tests reported herein may have been developed and their performance characteristics determined by [facility]. They have not been cleared [...] Name: Laura Gonzalez Age/Sex: 60/F : 1965 [id number] Unit#: [id number] Attend Dr: Preston Barksdale PA-C Re06/13/25 Status: DEP REF Location: HO.LNP Disch: ----- ------- SPEC : [id number] RECD: 06/14/25 STATUS: CIELO PRICE NUM: [id number] ANGELA: 06/13/[address] [facility] [address]: Preston Barksdale PA-C ENTERED: 06/14/25 SP TYPE: Surgical OTHR DR: MICHAEL YANEZ NP ORDERED: Gross Micro L3 Copies To: Preston Barksdale PA-C [facility] General Surgeons [address] [place] [address] [place] [address] [email or web address] MICHAEL YANEZ NP [address] [address] ----- ------- Signed (signature on file) Messi Anaya MD 06/15/25 1259 ----- ------- END OF REPORT us Generic External Data Provider LAB CYTOLOGY MARÍA NAJERA Final Result [facility] [address] [place] [phone] * (ABNORMAL) POCT MERY-14 Urine Drug Screen [...] 06/12/2025 10:48 AM EDT us Anushka Gunter AIRPORT DUTY MANAGER POINT OF CARE TEST ENTER/EDIT ORDERABLES Edited Result - Final * US Extremity Non Vascular Complete Joint Right (05/25/2025 4:17 PM EDT) Anatomical Region Laterality Modality Ultrasound 05/25/2025 4:17 PM EDT Narrative 05/25/2025 5:12 PM EDT [address] [address] Ultrasound Report Signed Patient: Laura Gonzalez MR#: [id number] : 1965 Acct:[id number] Age/Sex: 60 / F ADM Date: 05/25/25 Loc: HO.US Attending Dr: Cecilia Johnson DO Ordering Physician: Cecilia Johnson DO Date of Service: 05/25/25 Procedure(s): US Extremity Nonvas Comp JT RT Accession Number(s): [id number] cc: Cecilia Johnson DO; MICHAEL YANEZ NP [...] 05/25/25 1709 DD/ 1617 TD/TT: 05/25/25 1620 Wool Grower: Procedure Note Donotuseinterpreter, Image - 05/25/2025 [place] [address] Ultrasound Report Signed Patient: Aleksandar Gonzalez#: [id number] : 1965Acct:[id number] Age/Sex: 60 / FADM Date: 05/25/25 Loc: . Attending Dr: Cecilia Johnson DO Ordering Physician: Cecilia Johnson DO Date of Service: 05/25/25 Procedure(s): US Extremity Nonvas Comp JT RT Accession Number(s): [id number] cc: Cecilia Johnson DO; MICHAEL YANEZ NP [...] 05/25/25 1709 DD/ 1617 TD/TT: 05/25/25 1620 Wool Grower: us Cecilia Johnson DO IMG US PROCEDURES Final Resu lt * US VENOUS DUPLEX LE RT (05/25/2025 4:01 PM EDT) Anatomical Region Laterality Modality Abdomen Ultrasound 05/25/2025 4:01 PM EDT Narrative 05/25/2025 4:44 PM EDT [place] [address] Ultrasound Report Signed Patient: Laura Gonzalez MR#: [id number] : 1965 Acct:[id number] Age/Sex: 60 / F ADM Date: 05/25/25 Loc: HO.US Attending Dr: Cecilia Johnson DO Ordering Physician: Cecilia Johnson DO Date of Service: 05/25/25 Procedure(s): US venous duplex LE RT Accession Number(s): [id number] cc: Cecilia Johnson DO; MICHAEL YANEZ NP [...] 05/25/25 1642 DD/ 1601 TD/TT: 05/25/25 1615 Wool Grower: Procedure Note Donotuseinterpreter, Image - 05/25/2025 [place] [address] Ultrasound Report Signed Patient: Aleksandar Gonzalez#: [id number] : 1965Acct:[id number] Age/Sex: 60 / FADM Date: 05/25/25 Loc: .US Attending Dr: Cecilia Johnson DO Ordering Physician: Cecilia Johnson DO Date of Service: 05/25/25 Procedure(s): US venous duplex LE RT Accession Number(s): [id number] cc: Cecilia Johnson DO; MICHAEL YANEZ NP [...] 05/25/25 1642 DD/ 1601 TD/TT: 05/25/25 1615 Wool Grower: us Cecilia Elizabeth DO IMG US PROCEDURES Final Resu lt * Hold Red (05/13/2025 9:41 AM EDT) Hold Red See Note [facility] Comment:Specimen held untest ed for 24 hours; Call to requestChemistry testing. 05/13/2025 9:41 AM EDT 05/13/2025 9:46 AM EDT us Generic External Data Provider LAB BLOOD ORDERAB LES Final Result [facility] [address] [place], [place] [phone] * (ABNORMAL) CBC auto differential (05/13/2025 9:41 AM EDT) Only the most recent of2 resultswithin the time period is included. White Blood Count 4.4(L) 4.8 - 10.8 X10*3/uL [facility] Red Blood Count 4.76 4.20 - 5.50 X10*6/uL [facility] Hemoglobin 13.8 12.0 - 16.0 g/dl [facility] Hematocrit 42.3 37.0 - 47.0 % [facility] Mean Corpuscular Volume 88.9 80.0 - 98.0 fL [facility] Mean Corpuscular Hemoglobin 29.0 27.0 - 33.0 pg [facility] Mean Corpuscular HGB Conc 32.6 31.0 - 35.0 g/dl [facility] Red Cell Distribution Width 13.8 11.0 - 16.0 % [facility] Platelet Count 272 160 - 400 X10*3/uL [facility] Mean Platelet Volume 8.1(L) 9.4 - 12.3 fL [facility] Neutrophils Percent Auto 42.8(L) 45 - 73 % [facility] Imm Gran Pct Auto 0.0 0.0 - 0.4 % [facility] Lymphocytes Percent Auto 38.5 20 - 40 % [facility] Monocytes Percent Auto 8.1 2 - 11 % [facility] Eosinophils Percent Auto 9.7(H) 0 - 4 % [facility] Basophils Percent Auto 0.9 0 - 2 % [facility] NRBC Pct Auto 0.0 0.0 - 0.2 /100WBC [facility] Neutrophils Absolute Auto 1.9(L) 2.0 - 8.3 x10*3/uL [facility] Imm Gran Abs Auto 0.00 0.00 - 0.03 X10*3/uL [facility] Lymphocytes Absolute Auto 1.7 1.2 - 4.9 X10*3/uL [facility] Monocytes Absolute Auto 0.4 0.1 - 1.2 X10*3/uL [facility] Eosinophils Absolute Auto 0.4 0.0 - 0.4 X10*3/uL [facility] Basophils Absolute Auto 0.0 0.0 - 0.2 X10*3/uL [facility] NRBC Abs Auto 0.000 0.0 - 0.012 X10*3/uL [facility] 05/13/2025 9:41 AM EDT 05/13/2025 9:45 AM EDT us Generic External Data Provider LAB BLOOD ORDERAB LES Final Result [facility] [address] [place] [phone] * Sed Rate by Modified [place] (05/13/2025 9:41 AM EDT) Erythrocyte Sedimentation Rate 11 0 - 20 MM/HR [facility] Comment:Patients with polycy themia and many hemoglobin abnormalitiesmay have depressed sed rates whereas patients with anemiamay have elevated sed rates. 05/13/2025 9:41 AM EDT 05/13/2025 9:45 AM EDT us Generic External Data Provider LAB BLOOD ORDERAB LES Final Result Performing Organization Address City/[facility]/ZIP Co de Phone Number [facility] [address] [place] [phone] * C-reactive Protein (05/13/2025 9:41 AM EDT) Pathologist [facility] C Reactive Protein 0.27 < or = 0.50 mg/dL [facility] 05/13/2025 9:41 AM EDT 05/13/2025 9:45 AM EDT Generic External Data Provider LAB BLOOD ORDERAB LES Final Result Performing Organization Address [facility] Co de Phone Number [facility] [address] [place] [address] [phone] * (ABNORMAL) Comprehensive Metabolic Panel (05/13/2025 9:41 AM EDT) Only the most recent of2 resultswithin the time period is included. Pathologist [facility] Sodium 143 135 - 145 mmol/L [facility] Potassium 4.6 3.3 - 5.1 mmol/L [facility] Chloride 111(H) 96 - 108 mmol/L [facility] Carbon Dioxide 25 22 - 29 mmol/L [facility] Anion Gap 12 12 - 20 [facility] Urea Nitrogen (BUN) 9 9 - 16 mg/dL [facility] Creatinine, Serum 0.86 0.5 - 1.4 mg/dL [facility] Creatinine Clr Calc Pharmacy 63.3 [facility] Comment:Provided height and weight: 165.1 cm,66.4 kg.eGFR (calculated from the MDRD study equation) and eCrCl(calculated from the Cockcroft-Gault equation) are based ondifferent parameters and may not yield comparable results.If eCrCl result is absurd, please check patient'sheight/weight. Estimated Glomerular Filt Rate >60 [facility] Comment:Chronic Kidney Disea se: Estimated GFR < 60 mL/min/1.15u2Ucwvbc Kidney Disease: Estimated GFR < 15 mL/min/1.73m2 Glucose 109 60 - 115 mg/dL [facility] Calcium 9.4 8.4 - 10.2 mg/dL [facility] Bilirubin, Total 0.4 0.0 - 1.0 mg/dL [facility] Aspartate Amino Transferase 23 5 - 31 U/L [facility] Alanine Aminotransferase 19 0 - 31 U/L [facility] Total Protein 7.1 6.5 - 8.0 g/dL [facility] Albumin Level 4.2 3.5 - 5.0 g/dL [facility] Alkaline Phosphatase 99 39 - 117 U/L [facility] 05/13/2025 9:41 AM EDT 05/13/2025 9:45 AM EDT us Generic External Data Provider LAB BLOOD ORDERAB LES Final Result Performing Organization Address City/State/[facility] Co de Phone Number [facility] [address] [place] [address] [phone] * CTA Chest PE Protocal (05/01/2025 2:33 PM EDT) Anatomical Region Laterality Modality Body, Chest Computed Tomogra phy 05/01/2025 2:33 PM EDT Narrative 05/01/2025 3:11 PM EDT [place] [address] [address] Scan Report Signed Patient: Laura Gonzalez MR#: [id number] : 1965 Acct:[id number] Age/Sex: 60 / F ADM Date: 05/01/25 Loc: HO.CT Attending Dr: Jaleel Block MD Ordering Physician: JALEEL BLOCK MD Date of Service: 05/01/25 Procedure(s): CT angio chest PE protocol Accession Number(s): [id number] cc: JALEEL BLOCK MD; MICHAEL YANEZ NP Report Number: [id number]: Total DLP = 139.00 mGy-cm Reason for [...] 1508 DD/ 1433 TD/TT: 05/01/25 1452 Wool Grower: Procedure Note Donotuseinterpreter, Image - 05/01/[address] [address] [address] Scan Report Signed Patient: Aleksandar Gonzalez#: [id number] : 1965Acct:[id number] Age/Sex: 60 / FADM Date: 05/01/25 Loc: HO.CT Attending Dr: Jaleel Block MD Ordering Physician: JALEEL BLOCK MD Date of Service: 05/01/25 Procedure(s): CT angio chest PE protocol Accession Number(s): [id number] cc: JALEEL BLOCK MD; MICHAEL YANEZ NP Report Number: [id number]: Total DLP = 139.00 mGy-cm Reason for [...] 1508 DD/ 1433 TD/TT: 05/01/25 1452 Wool Grower: Jaleel Block MD IMG CT PROCEDURES Final Result * Hematoxylin and Eosin Stain (04/11/2025 12:01 PM EDT) 04/11/2025 12:0 1 PM EDT 04/11/2025 1:46 PM EDT [facility] LABS - 04/12/2025 2:08 PM EDT ----- ------- Name: Laura Gonzalez Age/Sex: 60/F : 1965 Unit#: [id number] Attend Dr: Tung Potter MD Re04/11/25 Status: [facility] Location: [facility] Disch: ----- ------- SPEC : [id number] RECD: 04/11/25 STATUS: CIELO PRICE NUM: [id number] ANGELA: 04/11/25-[address] [facility] [address]: Tung Potter MD ENTERED: 04/11/25 SP TYPE: Surgical OTHR DR: MICHAEL YANEZ AMUSEMENT PARK WORKER ORDERED: HE Stain/6, Gross Micro L4/2, IHC, [...] developed and their performance characteristics determined by [facility]. They have not been cleared or approved by the U.S. Food and Drug Administration (FDA). However, the FDA has determined that such clearance or approval is not necessary. This laboratory is CONTINUED ON NEXT PAGE ----- ------- Name: Laura Gonzalez Age/Sex: 60/F : 1965 Unit#: [id number] Attend Dr: Tung Potter MD Re04/11/25 Status: [facility] Location: [facility] Disch: ----- ------- SPEC : [id number] RECD: 04/11/25-1346 STATUS: CIELO PRICE NUM: [id number] ANGELA: 04/11/25-[address] [facility] [address]: Tung Potter MD ENTERED: 04/11/252759 SP TYPE: Surgical OTHR DR: MICHAEL YANEZ NP ORDERED: HE Stain/6, Gross Micro L4/2, IHC, Special st. 2/2, H. pylori, AB/PAS/2 IHC S/NG Disclaimer (Continued) certified under the Clinical Laboratory Improvement Amendments of 1988 (CLIA) as qualified to perform high complexity clinical laboratory testing. Copies To: Tung Potter MD [facility] Weight Management Program [address] [place] [phone] MICHAEL YANEZ NP [address] [place], [place] [phone] ----- ------- Signed (signature on file) Yasmeen Carrasco MD 04/12/25 0389 ----- ------- END OF REPORT us Generic External Data Provider LAB BLOOD ORDERAB LES Final Result [facility] [address] [place] [phone] * Drug Monitoring, Benzodiazepines, Quantitative, Urine (04/10/2025 10:00 AM EDT) Claudine GCMS Urine NEGATIVE [facility] Comment:CUTOFF: 50 ng/mL Oxazepam, GCMS Urine NEGATIVE [facility] Comment:CUTOFF: 50 ng/mL Lorazepam GCMS Urine NEGATIVE [facility] Comment:CUTOFF: 50 ng/mL Alprazolam, GCMS Urine NEGATIVE [facility] Comment:CUTOFF: 25 ng/mL Alphahydroxytriazolam, GCMS Ur NEGATIVE [facility] Comment:CUTOFF: 50 ng/mL Temazepam, GCMS Urine NEGATIVE [facility] Comment:CUTOFF: 50 ng/mL Alphahydroxymidazolam,GC MS Ur NEGATIVE [facility] Comment:CUTOFF: 50 ng/mL Aminoclonazepam, GCMS Urine NEGATIVE [facility] Comment:CUTOFF: 25 ng/mL Flurazepam Metabolite,GCMS Ur NEGATIVE [facility] Comment:CUTOFF: 50 ng/mL Benzodiazepines Comments SEE NOTE [facility] Comment:This drug testing is for medical treatment only. Analysiswas performed as non-forensic testing and these resultsshould be used only by healthcare providers to renderdiagnosis or treatment, or to monitor progress of medicalconditions.LDT Notes:Confirmation tests were developed and their analyticalperformance characteristics have been determined by [employer]. It has not been cleared or approved by the FDA.This assay has been validated pursuant to the CLIAregulations and is used for clinical purposes.Healthcare Providers needing Interpretation assistance,please contact us at [phone] ( ) M-F,8am to 10pm ESTPERFORMING SITE:[facility] [employer] [facility], [address] [place] [phone] Pediatric Dental Assistant: NILSA MATTHEWS MD, CLIA:[id number] Urine (Urine, Random) 04/10/2025 10:00 AM EDT 04/10/2025 1:08 PM EDT [facility] LAB URINE ORDERABLES Final Resul t [facility] [address] [place] [phone] * Drug Monitoring, Methadone Metabolite, Screen, Urine (04/10/2025 10:00 AM EDT) Methadone Screen, Urine Not Detected Not Detect ng/mL [facility] Comment:Methadone cut-off is 300 ng/mL.Positive results are unconfirmed and should not be used fornon-medical purposes. Urine (Urine, Random) 04/10/2025 10:00 AM EDT 04/10/2025 1:08 PM EDT us Michael Yanez ANP LAB URINE ORDERABLES Final Resul t [facility] [address] [place] [phone] * US Abdomen Limited (04/05/2025 12:53 PM EDT) Anatomical Region Laterality Modality Abdomen Ultrasound 04/05/2025 12:5 3 PM EDT Narrative 04/05/2025 1:28 PM EDT [address] [address] Ultrasound Report Signed Patient: Laura Gonzalez MR#: [id number] : 1965 Acct:[id number] Age/Sex: 60 / F ADM Date: 04/05/25 Loc: HO.ED Attending Dr: Ordering Physician: Alisha Saldivar PA-C Date of Service: 04/05/25 Procedure(s): US abdomen limited Accession Number(s): [id number] cc: Alisha Saldivar PA-C; MICHAEL YANEZ NP [...] MRCP could be performed. Electronically signed by: lAlen Horta MD 04/05/2025 01:25 PM EDT RP Dictated By: Allen Horta MD Signed By: <Electronically signed by Allen Horta MD in OV> 04/05/25 1325 DD/ 1253 TD/TT: 04/05/25 1302 Wool Grower: Procedure Note Donotuseinterpreter, Image - 04/05/2025 [place] [address] Ultrasound Report Signed Patient: Aleksandar Gonzalez#: [id number] : 1965Acct:[id number] Age/Sex: 60 / FADM Date: 04/05/25 Loc: .ED Attending Dr: Ordering Physician: Alisha Saldivar PA-C Date of Service: 04/05/25 Procedure(s): US abdomen limited Accession Number(s): [id number] cc: Alisha Saldivar PA-C; MICHAEL YANEZ NP [...] 1325 DD/ 1253 TD/TT: 04/05/25 1302 Wool Grower: us [facility] External Provider IMG US PROCEDURES Final Result * (ABNORMAL) Urinalysis, Complete, with Reflex to Culture (04/05/2025 10:08 AM EDT) Color Urine Yellow [facility] Appearance Urine Turbid [facility] PH 7.0 5.0 - 9.0 [facility] Glucose Urine UA Negative Negative mg/dL [facility] Urine Blood Negative Negative [facility] Specific [place] - Urine 1.015 1.005 - 1.025 [facility] Urine Protein Negative Neg-Trace mg/dL [facility] Urine Ketones Negative Negative mg/dL [facility] Nitrite Urine Negative Negative [facility] Leukocyte Esterase Urine Moderate (2+)(A) Negative [facility] RBC Urine 0-2 0 - 2 /HPF [facility] Urine WBC 6-10(A) 0 - 5 /HPF [facility] Urine Squamous Epithelial Cell 0-2 0 - 2 /HPF [facility] Urine Bacteria None Seen None Seen [facility] Hyaline Casts, Urine 0-2 0 - 2 /LPF [facility] 04/05/2025 10:0 8 AM EDT 04/05/2025 10:13 AM EDT Narrative [facility] - 04/05/2025 10:22 AM EDT Urine, Clean Catch Generic External Data Provider LAB URINE ORDERAB LES Final Result Performing Organization Address [facility] de Phone Number [facility] [address] [place] [phone] * D Dimer High Sensitivity (04/05/2025 10:05 AM EDT) Only the most recent of2 resultswithin the time period is included. Pathologist [facility] D Dimer High Sensitivity 164 NG/ML [facility] Comment:D-DIMER HS REFERENCE RANGENote: Our [...] Final Result Performing Organization Address [facility] Co de Phone Number [facility] [address] [place] [phone] * High Sensitivity Troponin I (04/05/2025 10:05 AM EDT) Pathologist [facility] TROPONIN I HIGH SENSITIVITY <2.7 <3.5 - 17.0 ng/L [facility] Comment:The Brar high sens itivity Troponin-I results should beused in conjunction with other diagnostic information suchas ECG, clinical observations and information, and patientsymptoms to aid in the diagnosis of DE. 04/05/2025 10:0 5 AM EDT 04/05/2025 10:08 AM EDT us Generic External Data Provider LAB BLOOD ORDERAB LES Final Result Performing Organization Address City/[facility]/ZIP Co de Phone Number [facility] [address] [place] [phone] * Lipase (04/05/2025 10:05 AM EDT) Lipase 19 8 - 78 U/L [facility] 04/05/2025 10:0 5 AM EDT 04/05/2025 10:08 AM EDT us Generic External Data Provider LAB BLOOD ORDERAB LES Final Result Performing Organization Address [facility] Co de Phone Number [facility] [address] [place] [phone] * CT Abdomen Pelvis w/o Contrast (04/05/2025 9:45 AM EDT) Anatomical Region Laterality Modality Body, Pelvis, Abdomen Computed T omography 04/05/2025 9:45 AM EDT Narrative 04/05/2025 10:20 AM EDT [address] [address] [address] Scan Report Signed Patient: Laura Gonzalez MR#: [id number] : 1965 Acct:[id number] Age/Sex: 60 / F ADM Date: 04/05/25 Loc: HO.ED Attending Dr: Ordering Physician: Alisha Saldivar PA-C Date of Service: 04/05/25 Procedure(s): CT abdomen pelvis wo IV con Accession Number(s): [id number] cc: Alisha Saldivar PA-C; MICHAEL YANEZ NP Report Number: [id number]: Total DLP = 431.00 mGy-cm EXAMINATION: CT [...] 1018 DD/ 0945 TD/TT: 04/05/25 1000 Wool Grower: Procedure Note Donotuseinterpreter, Image - 04/05/[address] [address] [address] Scan Report Signed Patient: Aleksandar Gonzalez#: [id number] : 1965Acct:[id number] Age/Sex: 60 / FADM Date: 04/05/25 Loc: HO.ED Attending Dr: Ordering Physician: Alisha Saldivar PA-C Date of Service: 04/05/25 Procedure(s): CT abdomen pelvis wo IV con Accession Number(s): [id number] cc: Alisha Saldivar PA-C; MICHAEL YANEZ NP Report Number: [id number]: Total DLP = 431.00 mGy-cm EXAMINATION: CT [...] 1018 DD/ 0945 TD/TT: 04/05/25 1000 Wool Grower: [facility] External Provider IMG CT PROCEDURES Final Result * XR Chest 2 Views (04/05/2025 8:44 AM EDT) Only the most recent of2 resultswithin the time period is included. Anatomical Region Laterality Modality Chest Radiographic Jennifer ging 04/05/2025 8:44 AM EDT Narrative 04/05/2025 9:59 AM EDT [address] [address] XRay Report Signed Patient: Laura Gonzalez MR#: [id number] : 1965 Acct:[id number] Age/Sex: 60 / F ADM Date: 04/05/25 Loc: HO.ED Attending Dr: Ordering Physician: Alisha Saldivar PA-C Date of Service: 04/05/25 Procedure(s): XR chest 2V Accession Number(s): [id number] cc: Alisha Saldivar PA-C; MICHAEL YNAEZ NP EXAMINATION: XR CHEST CLINICAL INFORMATION: right [...] 04/05/25 0956 DD/ 0844 TD/TT: 04/05/25 0942 Wool Grower: Procedure Note Donotuseinterpreter, Image - 04/05/[address] [address] XRay Report Signed Patient: Paz GonzalezR#: [id number] : 1965Acct:[id number] Age/Sex: 60 / FADM Date: 04/05/25 Loc: HO.ED Attending Dr: Ordering Physician: Alisha Saldivar PA-C Date of Service: 04/05/25 Procedure(s): XR chest 2V Accession Number(s): [id number] cc: Alisha Saldivar PA-C; MICHAEL YANEZ NP [...] 04/05/25 0956 DD/ 0844 TD/TT: 04/05/25 0942 Wool Grower: [facility] External Provider IMG XR PROCEDURES Final Result * Culture, Urine, Routine (04/05/2025 12:00 AM EDT) Only the most recent of2 resultswithin the time period is included. Urine Urine specimen obtained by clean catch procedure / Unknown 04/05/2025 04/05/2025 Comment:UACC Narrative [facility] - 04/06/2025 10:53 AM EDT Urine Culture No growth. Specimen Source: Urine clean catch Generic External Data Provider LAB MICROBIOLOGY - GENERAL ORDERABLES Final Result [facility] [address] [place] [phone] * Creatinine, Serum (04/04/2025 2:21 PM EDT) Creatinine, Serum 0.78 0.5 - 1.4 mg/dL [facility] Estimated Glomerular Filt Rate >60 [facility] Comment:Chronic Kidney Disea se: Estimated GFR < 60 mL/min/1.10f4Xslotd Kidney Disease: Estimated GFR < 15 mL/min/1.73m2 Blood Venous blood specimen / Unknown 04/04/2025 2:21 PM EDT 04/04/2025 2:21 PM EDT us Jaleel Block MD LAB BLOOD ORDERABLES Final Resul t Performing Organization Address [facility] de Phone Number [facility] [address] [place] [phone] * BUN (Blood Urea Nitrogen) (04/04/2025 2:21 PM EDT) Urea Nitrogen (BUN) 11 9 - 16 mg/dL [facility] Blood Venous blood specimen / Unknown 04/04/2025 2:21 PM EDT 04/04/2025 2:21 PM EDT Jaleel Block MD LAB BLOOD ORDERABLES Final Resul t Performing Organization Address [facility] de Phone Number [facility] [address] [place] [phone] * BI Mammogram Screening Tomosynthesis Bilateral (02/05/2025 12:34 PM EDT) Anatomical Region Laterality Modality Breast Bilateral Mammography 02/05/2025 12:3 4 PM EDT Narrative 02/12/2025 2:54 PM EDT [facility] [address] [place] [address] Mammography Report Signed Patient: Laura Graham MR#: [id number] : 1965 Acct:[id number] Age/Sex: 60 / F ADM Date: 02/05/25 Loc: HO.MAMMO Attending Dr: Alex Machuca MD Ordering Physician: Alex Machuca MD Results: 2Benign Findings Date of Service: 02/05/25 Follow Up: 1 Year From Orig inal Mammogram Procedure(s): MM tomosynthesis screening BI Accession Number(s): [id number] cc: MICHAEL YANEZ NP; Alex Machuca MD [...] 1451 DD/ 1234 TD/TT: 02/05/25 1248 Wool Grower: Procedure Note Donotuseinterpreter, Image - 02/12/2025 [facility] [address] [place] [address] Mammography Report Signed Patient: Aleksandar Graham#: [id number] : 1965Acct:[id number] Age/Sex: 60 / FADM Date: 02/05/25 Loc: HO.MAMMO Attending Dr: Alex Machuca MD Ordering Physician: Alex Machuca MDResults: 2Benign Findings Date of Service: 02/05/25Follow Up: 1 Year From Orig inal Mammogram Procedure(s): MM tomosynthesis screening BI Accession Number(s): [id number] cc: MICHAEL YANEZ AMUSEMENT PARK WORKER; Alex Machuca MD EXAMINATION: MM SCREENING DIGITAL [...] 1451 DD/ 1234 TD/TT: 02/05/25 1248 Wool Grower: [facility] External Provider IMG BI PROCEDURES Final Result * (ABNORMAL) Lipid Panel, Standard (08/25/2024 10:00 AM EST) Triglycerides 61 <150 mg/dL [facility] Comment:Desirable Triglyceri de: less than 150 mg/dLBorderline High Triglyceride 150-199 mg/dLHigh Triglyceride: 200-499 mg/dLVery High Triglyceride: greater than or equal to 5OO mg/dL Cholesterol 173 <200 mg/dL [facility] Comment:Desirable Cholestero l: less than 200 mg/dLBorderline High Cholesterol: 200-239 mg/dLHigh Cholesterol: greater than 239 mg/dL LDL Cholesterol Calculated 105(H) <100 mg/dL [facility] Comment:Desirable LDL: less than 100 mg/dLNear Optimal/Above Optimal LDL: 110- 129 mg/dLBorderline High LDL: 130-159 mg/dLHigh LDL: 160-189 mg/dLVery High LDL: greater than or equal to 190 mg/dL HDL Cholesterol 56 >40 mg/dL [facility] Comment:Desirable HDL: great er than 40 mg/dL Note: This HDL assay may give artificially low results in patients with liver disease. 08/25/2024 10:0 0 AM EST 08/25/2024 11:37 AM EST Michael Yanez ANP LAB BLOOD ORDERABLES Final Resul t Performing Organization Address [facility] Co de Phone Number [facility] [address] [place] [phone] * HIV-1/2 Antigen and Antibodies, Fourth Generation, with Reflexes (01/04/2024 9:49 AM EDT) HIV AB/AG Nonreactive Nonreactive [facility] Comment:HIV-1 p24 Ag and/or HIV-1/HIV-2 Ab not detected.A test result that is nonreactive does not exclude thepossibility of exposure to or infection with HIV-1 and/orHIV-2. Nonreactive results in this assay for individualswith prior exposure to HIV-1 and/or HIV-2 may be due toantigen and antibody levels that are below the limit ofdetection of this assay.The [employer] HIV Ag/Ab Combo assay result andsupplemental assay results should be interpreted inconjunction with the patient's clinical presentation,history and other laboratory results. If the results areinconsistent with clinical evidence, additional testing issuggested to confirm the result. Blood Venous blood specimen / Unknown 01/04/2024 9:49 AM EDT 01/04/2024 11:50 AM EDT Michael Yanez [facility] LAB BLOOD ORDERABLES Final Resul t Performing Organization Address [facility]/ZIP Co de Phone Number [facility] [address] [place] [phone] * Hepatitis C Ab (09/09/2022 10:23 AM EST) Hepatitis C Antibody Nonreactive Nonreactive [facility] Comment:Antibodies to HCV no t detected; does not exclude early acuteHCV infection. 09/09/2022 10:2 3 AM EST 09/09/2022 10:23 AM EST [facility] External Provider LAB BLO OD ORDERABLES Final Result [facility] [address] [place] [phone] * Hm Colonoscopy (07/08/2021 12:15 PM EST) Colonoscopy Normal Normal Fidencio Vila MD HEALTH MAINTENANCE Edited Re sult - Final from Last 3 Months or Most Recently Relevant to Health Maintenance Insurance [facility] C3 [facility] MEDICAID STAND ADULT [employer] [place] [id number] Care Teams Belt And Link Shop Supervisor Relationship Specialty Start Date End Date Michael Yanez ANP [address] [place] [phone] PCP - General Family Medicine 01/16/20 Margareth Chavarria 02/26/25
--- OUTSIDE RECORDS SUMMARY | 2025-06-20 20:10 | XMS_ITS | Encounter Summary ---
Author Organization [employer] Address [address] [place] [address] Care Team Providers Care Health Services Director Name Role Phone Nupur Weir Primary Care Provider [phone] Abel Chavarria RN Unavailable [phone] Margareth Chavarria Unavailable Reason for Visit * Reason Comments Med Refill Encounter Details Date Type Department Care Team (Late st Contact Info) Description 06/19/2024 Refill [facility] MEDICINE [address] [place], [place] [phone] Nupur Weir ANP [address] [place] [address] Other specified hypothyroidism Social History Tobacco Use [...] Description 07/10/2025 9:45 AM EST Office Visit [address] [address] 08/07/2025 9:45 AM EST Office Visit [address] [address] 08/14/2025 9:15 AM EST Office Visit [address] [address] Nupur Weir ANP [address] [place] [address] 09/28/2025 9:30 AM EST Medication Management [address] [address] Fay Leigh, PharmD [address] [place] [phone] documented as of this encounter Visit Diagnoses Diagnosis Other specified hypothyroidism documented in this encounter Care Teams Health Services Director Relationship Specialty Start Date End Date Nupur Weir ANP [address] [place] [phone] PCP - General Family Medicine 01/16/20 Abel Chavarria, ILENE [address] [place] [address] [place] [address] Registered Nurse Family Medicine 02/26/25 06/18/25 Margareth Chavarria 02/26/25 documented as of this encounter
--- OUTSIDE RECORDS SUMMARY | 2025-06-20 20:10 | XMS_ITS | Patient Health Record ---
Author Organization [facility] Address [address] [place] [address] Care Team Providers Care Pin Drafter Name Role Phone MICHAEL YANEZ N.P. Primary Care Provider Fidencio Langley Jr Unavailable [phone] Allergies Allergen (clinical drug ingredient) Drug/Non Drug Allergy documented on EMR Reaction Allergy Type Onset Date Status fentanyl fentaNYL Unknown Drug Allergy Active Results Component Value Reference Range Notes Complete Blood Count Auto Di ff Reviewed date:07/17/2024 08:00:34 AM Interpretation: Performing Lab:[facility], [address] [place] [phone] Notes/Report: White Blood Count 5.3 4.8-10.8 X10*3/uL [...] Panel Reviewed date:07/17/2024 08:00:27 AM Interpretation: Performing Lab:[facility], [address] [place] [phone] Notes/Report: Bilirubin Total 0.7 0.0-1.0 mg/dL Bilirubin Direct 0.3 0.0-0.5 mg/dL Aspartate Amino Transferase 21 5-31 U/L Alanine Aminotransferase 17 0-31 U/L Total Protein 6.4 6.5-8.0 g/dL Albumin Level 3.7 3.5-5.0 g/dL Alkaline Phosphatase 104 39-117 U/L Lipase Reviewed date:07/17/2024 08:00:21 AM Interpretation: Performing Lab:[facility], [address] [place] [phone] Notes/Report: Lipase 14 8-78 U/L Thyroid Stimulating Hormone Reviewed date:07/17/2024 08:00:15 AM Interpretation: Performing Lab:[facility], [address] [place] [phone] Notes/Report: Thyroid Stimulating Hormone 0.97 0.32-4.0 uIU/ [...] Status Risk Notes Problem Colon cancer screening (451307872) Colon cancer screening (Z12.11) Active confirmed Problem Rectal bleeding (87467166) Rectal bleeding (K62.5) Active confirmed Problem Epigastric pain (27312315) Epigastric pain (R10.13) Active confirmed Problem Dysphagia (84548436) Dysphagia (R13.10) Active confirmed Problem Elevated liver enzymes level (216189485) Elevated LFTs (R79.89) Active confirmed Problem Gastroesophageal reflux disease without esophagitis (075778483) Gastroesophageal reflux disease without esophagitis (K21.9) Active confirmed Problem Dysphagia (95295520) Dysphagia, unspecified type (R13.10) Active confirmed Vital Signs Blood pressure diastolic 00 mm Hg 07/14/2024 Height 64.5 in 07/14/2024 Blood pressure systolic 00 mm Hg 07/14/2024 Weight 153 lbs 07/14/2024 BMI 25.85 kg/m2 07/14/2024 Encounters Encounter Location Date Provider Diagnosis [facility] [address] [place] [phone] 07/14/2024 Fidencio Vila Jr Abdominal cramping R10.9 [facility] [address] [place] [address] 07/17/2024 Fidencio Vila Jr Assessments Encounter Date [...] 11:20:00 AM, [address], [address], [place], [address], Insurance Providers Payer Name Payer Address Payer Phone Subscriber Number Group Number Insured Name Patient Relationship to Insured Coverage Start Date Coverage End Date [facility] [place] [facility] [address] [place] [id number] JAYSON TAY Self - patient is the [...] partial hysterectomy tonsillectomy cancer in uterus [phone] Laparoscopic bypass surgery 11/14 removed two cyst removed fro m right shouder and outer colon =dr. jones
--- OUTSIDE RECORDS SUMMARY | 2025-06-20 20:10 | XMS_ITS | Encounter Summary ---
Author Organization [employer] Address [address] [facility] 7t [place] [address] Care Team Providers Care Hr Payroll Coordinator Name Role Phone Nupur Weir Primary Care Provider [phone] Abel Chavarria RN Unavailable [phone] Margareth Chavarria Unavailable Encounter Details Date Type Department Care Team (Late st Contact Info) Description 07/30/2022 Abstract [facility] ADULT DENTAL [address] [place] [address] Dental, Provider, DDS Social History Tobacco Use [...] 07/10/2025 9:45 AM EST Office Visit [facility] MEDICINE [address] [place] [address] [phone] 08/07/2025 9:45 AM EST Office Visit [facility] MEDICINE [address] [place] [address] [phone] 08/14/2025 9:15 AM EST Office Visit [facility] MEDICINE [address] [place] [address] [phone] Nupur Weir ANP 230 [place] [address] 09/28/2025 9:30 AM EST Medication Management [facility] MEDICINE [address] [place] [address] Fay Leigh, PharmD 230 [place] [address] documented as of this encounter Procedures Procedure [...] on filedocumented in this encounter Care Teams Hr Payroll Coordinator Relationship Specialty Start Date End Date Nupur Weir ANP 230 [place] [address] PCP - General Family Medicine 01/16/20 Abel Chavarria, ILENE [address] [place] [address] Registered Nurse Family Medicine 02/26/25 06/18/25 Margareth Chavarria 02/26/25 documented as of this encounter
--- OUTSIDE RECORDS SUMMARY | 2025-06-20 20:10 | XMS_ITS | Encounter Summary ---
Author Organization [employer] Address [address] [facility] [address] 7t [place] [address] Care Team Providers Care Interior Assemblies Installer Name Role Phone Nupur Weir Primary Care Provider [phone] Abel Chavarria RN Unavailable [phone] Margareth Chavarria Unavailable Encounter Details Date Type Department Care Team (Late st Contact Info) Description 04/05/2025 Orders Only [facility] [address] [place], [place] [phone] Jaleel Block MD [address] [place], [place] [phone] Right-sided chest pain (Primary Dx); Hemoptysis Social [...] 07/10/2025 9:45 AM EST Office Visit [address] [address] 08/07/2025 9:45 AM EST Office Visit [address] [address] 08/14/2025 9:15 AM EST Office Visit [address] [address] Nupur Weir ANP [address] [place] [address] 09/28/2025 9:30 AM EST Medication Management [address] [address] Fay Leigh, PharmD [address] [place] [address] documented as of this encounter Procedures Procedure Name Priority Date/Time Associated Diagnosis Comments CULTURE, URINE, ROUTINE Routine 04/05/2025 12:00 AM EDT Right-sided chest pain documented in this encounter Results * Culture, Urine, Routine (04/05/2025 12:00 AM EDT) Urine Urine specimen obtained by clean catch procedure / Unknown 04/05/2025 04/05/2025 Comment:UACC Narrative [facility] - 04/06/2025 10:53 AM EDT Urine Culture No growth. Specimen Source: Urine clean catch us Generic External Data Provider LAB MICROBIOLOGY - GENERAL ORDERABLES Final Result [facility] [address] [place] [address] [phone] documented in this encounter Visit Diagnoses Diagnosis Right-sided chest pain- Primary Hemoptysis documented in this encounter Additional Health Concerns Assessment Noted Time PHQ-9 Depression Total Score: 7 03/15/20 25 3:29 PM EDT documented as of this encounter Care Teams Interior Assemblies Installer Relationship Specialty Start Date End Date Nupur Weir ANP 230 [place] [address] PCP - General Family Medicine 01/16/20 Abel Chavarria, ILENE [address] [place] [address] Registered Nurse Family Medicine 02/26/25 06/18/25 Margareth Chavarria 02/26/25 documented as of this encounter
--- OUTSIDE RECORDS SUMMARY | 2025-06-20 20:11 | XMS_ITS | Encounter Summary ---
Author Organization [employer] Address [address] [facility] [address] 7t [place] [address] Care Team Providers Care Bridal Sales Consultant Name Role Phone Nupur Weir Primary Care Provider [phone] Abel Chavarria RN Unavailable [phone] Margareth Chavarria Unavailable Reason for Visit * Reason Onset Date Comments Med Refill 01/19/2025 Encounter Details Date Type Department Care Team (Late st Contact Info) Description 01/19/2025 Telephone [facility] MEDICINE [address] [place], [place] [phone] Nupur Weir ANP 230 [place], [place] [phone] Med Refill Social History Tobacco Use Types [...] 50 MG tablet To be sent to: [facility] pharmacy documented in this encounter Plan of Treatment Upcoming Encounters Date Type Department Care Team ([facility] st Contact Info) Description 07/10/2025 9:45 AM EST Office Visit [facility] MEDICINE [address] [place] [address] 08/07/2025 9:45 AM EST Office Visit [address] [address] 08/14/2025 9:15 AM EST Office Visit [address] [address] Nupur Weir ANP [address] [place] [address] 09/28/2025 9:30 AM EST Medication Management [address] [address] Fay Leigh PharmD [address] [place] [address] documented as of this encounter Visit Diagnoses Not on filedocumented in this encounter Care Teams Bridal Sales Consultant Relationship Specialty Start Date End Date Nupur Weir ANP [address] [place] [address] PCP - General Family Medicine 01/16/20 Abel Chavarria RN [address] [place] [address] Registered Nurse Family Medicine 02/26/25 06/18/25 Margareth Chavarria 02/26/25 documented as of this encounter
== END 2025-06-20 14:13 | disposition home or self-care (01) ==
LOC: HO.HGS 14:01
PROVIDERS: PCP Nurse Practitioner Primary Care
DX: Z98.890 Other specified postprocedural states (principal); Z87.2 Personal history of diseases of the skin and subcutaneous tissue
CPT/HCPCS: 99024

== ENCOUNTER → 2025-06-20 14:01 | Outpatient (BNVA) | payer MEDICAID, SELFPAY | PROVIDERS: PCP Nurse Practitioner Primary Care | DX: Z48.817 Encounter for surgical aftercare following surgery on the skin and subcutaneous tissue (principal); Z87.2 Personal history of diseases of the skin and subcutaneous tissue | CPT/HCPCS: 99212 ==

== ENCOUNTER 2025-07-02 10:01 | Outpatient (AMB) | payer MEDICAID, SELFPAY ==
--- OUTSIDE RECORDS SUMMARY | 2025-01-03 04:20 | XMS_ITS ---
Author Organization [facility] Address [address] [place] [address] Care Team Providers Care Directory Assistance Operator Name Role Phone MICHAEL YANEZ N.P. Primary Care Provider Fidencio Langley Jr [phone] REASON FOR VISIT dysphagia Encounters Encounter Location Date Provider Diagnosis [facility] [address] [place] [phone] 01/03/2025 Fidencio Vila Jr Plan Of Treatment Next Appt Details Provider Name:Fidencio haider Jr, 07/18/2025 11:20:00 AM, [address] [place] [address], [address], [place], [address], Progress Notes * TIFFANIE TYLERADOB: 6 (60 yo F)Acc No.[id number]:01/03/2025 Progress Notes Patient: TAY CAPELLAN Provider: Remi Vila MD :1965 A ge:59 Y S ex:Female Date:01/03/2025 Address:[address] [id number] Pcp:MICHAEL YANEZ N.P. Subjective: * Chief Complaints: * 1 . Dysphagia. * Medical History: Objective: * Vitals: Assessment: Plan: * Treatment: * * The named appointment provid er may or may not be the originator of this progress note, and it is not deemed complete until electronically signed by the appointment provider. Sign off status: Pending * Provider: Remi Vila MD Date: 0 01/03/2025 Generated for Viviane negrete/Shakila/Constantino on: 09/01/2024 11:56 AM EST
--- NOTE | 2025-07-02 10:39 | MHC.OFFVIS ---
Intake Visit Reasons: excison cyst (R) lower leg leg abscess Allergies ondansetron (From ZOFRAN) Allergy (Unknown, Verified 06/20/25 14:07) per H&P sumatriptan (From IMITREX) Allergy (Unknown, Verified 06/20/25 14:07) RASH FROM TABLET NOT INJECTION promethazine (From PHENERGAN) Adverse Reaction (Severe, Verified 06/20/25 14:07) DYSTONIA HPI HPI excison cyst (R) lower leg leg abscess: Details: He is here for excision of a cyst from the right lower leg. [facility] Medical History (Updated 06/13/25 @ 14:20 by Preston Barksdale PA-C) Abscess of leg Well woman exam Epidermal cyst Migraine HTN (hypertension) IBS (irritable bowel syndrome) GERD (gastroesophageal reflux disease) Chronic interstitial cystitis Sleep apnea Asthma Anemia Hypercholesteremia Depression Anxiety Sacrococcygeal pilonidal cyst Recurrent UTI Goiter Flank pain Dysuria Hypercalciuria Swelling of joint, ankle, right Swelling of right foot Vitamin D deficiency Hypothyroidism Right patella fracture History of secondary hyperparathyroidism Abnormal mammogram Surgical History (Updated 06/22/25 @ 13:48 by Preston Barksdale PA-C) History of removal of cyst (~05/12/24) History of bladder surgery H/O bilateral salpingo-oophorectomy S/P gastric bypass H/O left breast biopsy H/O: hysterectomy History of bilateral tubal ligation History of appendectomy Family History Mother Uterine cancer Father No problems noted. 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 The area of the cystic induration on the right leg was prepped and draped. Lidocaine 1% was used for local anesthesia. I made an elliptical incision on the skin surrounding this area of induration using blade 15. This carried down through the full-thickness of the skin and subcutaneous fat to excise the entire indurated area. This was sent as a specimen. This cystic induration measured about 1.7 cm. I closed the incision with full-thickness nylon 3-0 simple interrupted sutures. Dressings were applied. The procedure was completed. She tolerated the procedure well. There were no immediate complications. There was minimal blood loss. 51325-ibwln/arms/legs 1.1-2cm Procedure code (CPT) selection complete Assessment & Plan Assessment & Plan (1) Epidermal cyst: Code(s): L72.0 - Epidermal cyst Category: Medical Plan: Excision was done in the office under local anesthesia. She was given wound care instructions. She will be seen for removal sutures in about 2 weeks. Coding Level of Care Code Procedure Only Diagnoses Epidermal cyst L72.0 CPT Codes Trunk/Arms/Legs - CPT: 35168-irlja/arms/legs 1.1-2cm ([id number])
--- OUTSIDE RECORDS SUMMARY | 2025-07-02 11:56 | XMS_ITS | Encounter Summary ---
Author Organization [employer] Address [address] [facility] [address] 7t [place] [address] Care Team Providers Care Angiographer Name Role Phone Nupur Weir Primary Care Provider [phone] Abel Chavarria RN Unavailable [phone] Margareth Chavarria Unavailable Reason for Visit * Reason Comments Med Refill Encounter Details Date Type Department Care Team (Late st Contact Info) Description 02/11/2024 Refill [facility] MEDICINE 230 [place], [place] [phone] Marcella Colindres MD 230 [place] [address] Gastritis medicamentosa Social History Tobacco Use Types [...] 07/10/2025 9:45 AM EST Office Visit [address] [address] 08/07/2025 9:45 AM EST Office Visit [address] [address] 08/14/2025 9:15 AM EST Office Visit [address] [address] Nupur Weir ANP [address] [place] [address] 09/28/2025 9:30 AM EST Medication Management [address] [address] Fay Leigh, PharmD [address] [place] [place] [address] documented as of this encounter Visit Diagnoses Diagnosis Gastritis medicamentosa Other specified gastritis without mention of hemorrhage documented in this encounter Care Teams Angiographer Relationship Specialty Start Date End Date Nupur Weir ANP [address] [place] [address] PCP - General Family Medicine 01/16/20 Abel Chavarria RN [address] [place] [address] [place] [address] Registered Nurse Family Medicine 02/26/25 06/18/25 Margareth Chavarria 02/26/25 06/21/25 documented as of this encounter
--- OUTSIDE RECORDS SUMMARY | 2025-07-02 11:56 | XMS_ITS | Encounter Summary ---
Author Organization [employer] Address [address] [facility] [address] 7t [place] [address] Care Team Providers Care Teen Counselor Name Role Phone Nupur Weir Primary Care Provider Abel Chavarria RN Unavailable [phone] Margareth Chavarria Unavailable Reason for Visit * Reason Onset Date Comments Appointment Request 11/30/2024 Encounter Details Date Type Department Care Team (Late st Contact Info) Description 11/30/2024 Telephone [facility] MEDICINE [address] [place], [place] [phone] Nupur Weir ANP 230 [place], [place] [phone] Appointment Request Social History Tobacco Use Types [...] EDT Tc from pt requesting to r/s CLIENT EXPERIENCE SPECIALIST appt. States has another appt around the same time at sleep medicine and pt informs takes bus and believes will not be able to make it on time. Would like to r/s for Wednesday. documented in this encounter Plan of Treatment Upcoming Encounters Date Type Department Care Team (Late st Contact Info) Description 07/10/2025 9:45 AM EST Office Visit [address] [address] 08/07/2025 9:45 AM EST Office Visit [address] [address] 08/14/2025 9:15 AM EST Office Visit [address] [address] Nupur Weir ANP [address] [place] [address] 09/28/2025 9:30 AM EST Medication Management [address] [address] Fay Leigh, PharmD [address] [place] [address] documented as of this encounter Visit Diagnoses Not on filedocumented in this encounter Care Teams Teen Counselor Relationship Specialty Start Date End Date Nupur Weir ANP [address] [place] [address] PCP - General Family Medicine 01/16/20 Abel Chavarria RN [address] [place] [address] Registered Nurse Family Medicine 02/26/25 06/18/25 Margareth Chavarria 02/26/25 06/21/25 documented as of this encounter
--- OUTSIDE RECORDS SUMMARY | 2025-07-02 11:56 | XMS_ITS | Encounter Summary ---
Author Organization [employer] Address [address] [facility] [address] 7t [place] [address] Care Team Providers Care Juice Mixer Name Role Phone Nupur Weir Primary Care Provider [phone] Abel Chavarria RN Unavailable [phone] Margareth Chavarria Unavailable Encounter Details Date Type Department Care Team (Late st Contact Info) Description 05/25/2025 Results Follow-Up [facility] MEDICINE 230 [place] [address] Nupur Weir ANP 230 [place] [address] US VENOUS DUPLEX LE RT, US Extremity [...] si tiene preguntas. Take care, Cu??Nupur arambula MANUAL MACHINIST documented in this encounter Plan of Treatment Upcoming Encounters Date Type Department Care Team (Late st Contact Info) Description 07/10/2025 9:45 AM EST Office Visit [facility] MEDICINE [address] [place] [address] 08/07/2025 9:45 AM EST Office Visit [facility] MEDICINE [address] [place] [address] 08/14/2025 9:15 AM EST Office Visit [address] [address] Nupur Wier ANP [address] [place] [address] 09/28/2025 9:30 AM EST Medication Management [address] [address] Fay Leigh PharmD [address] [place] [address] documented as of this encounter Visit Diagnoses Not on filedocumented in this encounter Additional Health Concerns Assessment Noted Time PHQ-9 Depression Total Score: 17 04/12/ 025 10:08 AM EDT documented as of this encounter Care Teams Juice Mixer Relationship Specialty Start Date End Date Nupur Weir ANP [address] [place] [address] PCP - General Family Medicine 01/16/20 Abel Chavarria RN [address] [place] [address] Registered Nurse Family Medicine 02/26/25 06/18/25 Margareth Chavarria 02/26/25 06/21/25 documented as of this encounter
--- OUTSIDE RECORDS SUMMARY | 2025-07-02 11:56 | XMS_ITS | Encounter Summary ---
Author Organization [employer] Address [address] [facility] [address] 7t [place] [address] Care Team Providers Care Roadside Mechanic Name Role Phone Nupur Weir Primary Care Provider [phone] Encounter Details Date Type Department Care Team (Late st Contact Info) Description 07/02/2025 Refill [facility] MEDICINE 230 [place] [address] Nupur Weir ANP 230 [place] [address] Arthralgia, unspecified joint Social History Tobacco Use [...] the past 12 months, has t he [employer], gas, oil or water [employer] threatened to shut off services in your [...] Description 07/10/2025 9:45 AM EST Office Visit [address] [address] 08/07/2025 9:45 AM EST Office Visit [address] [address] 08/14/2025 9:15 AM EST Office Visit [address] [address] Nupur Weir, BATOOL [address] [place] [address] 09/28/2025 9:30 AM EST Medication Management [address] [address] Fay Leigh, MayoD [address] [place] [address] documented as of this encounter Visit Diagnoses Diagnosis Arthralgia, unspecified joint documented in this encounter Additional Health Concerns Assessment Noted Time PHQ-9 Depression Total Score: 17 04/12/ 025 10:08 AM EDT documented as of this encounter Care Teams Roadside Mechanic Relationship Specialty Start Date End Date Nupur Weir ANP 230 [place] [address] PCP - General Family Medicine 01/16/20 documented as of this encounter
--- OUTSIDE RECORDS SUMMARY | 2025-07-02 11:56 | XMS_ITS | Encounter Summary ---
Author Organization [employer] Address 75 [facility] 7t [place] [address] Care Team Providers Care Knife Setter Grinder Machine Name Role Phone Nupur Weir Primary Care Provider [phone] Abel Chavarria RN Unavailable [phone] Margareth Chavarria Unavailable Reason for Visit * Reason Onset Date Comments Med Refill 10/01/2023 Encounter Details Date Type Department Care Team (Late st Contact Info) Description 10/01/2023 Telephone [facility] MEDICINE 230 [place], [place] [phone] Nupur Weir ANP 230 [place], [place] [phone] Med Refill Social History Tobacco Use Types [...] Base) MCG/ACT inhaler To be sent to: [id number] [place], [place] - [address] [place] [address] documented in this encounter Plan of Treatment Upcoming Encounters Date Type Department Care Team (Late st Contact Info) Description 07/10/2025 9:45 AM EST Office Visit [address] [address] 08/07/2025 9:45 AM EST Office Visit [address] [address] 08/14/2025 9:15 AM EST Office Visit [address] [address] Nupur Weir ANP [address] [place] [address] 09/28/2025 9:30 AM EST Medication Management [address] [address] Fay Leigh, MayoD 230 [place] [address] documented as of this encounter Visit Diagnoses Not on filedocumented in this encounter Care Teams Knife Setter Grinder Machine Relationship Specialty Start Date End Date Nupur Weir ANP 230 [place], [place] [phone] PCP - General Family Medicine 01/16/20 Abel Chavarria, ILENE [address] [place] [address] Registered Nurse Family Medicine 02/26/25 06/18/25 Margareth Chavarria 02/26/25 06/21/25 documented as of this encounter
--- OUTSIDE RECORDS SUMMARY | 2025-07-02 11:56 | XMS_ITS | Encounter Summary ---
Author Organization [employer] Address [address] [facility] [address] 7t [place] [address] Care Team Providers Care Button Tufter Name Role Phone Nupur Weir Primary Care Provider [phone] Abel Chavarria RN Unavailable [phone] Margareth Chavarria Unavailable Reason for Visit * Reason Comments Med Refill Encounter Details Date Type Department Care Team (Late st Contact Info) Description 11/07/2024 Refill [facility] [address] [place], [place] [phone] Nupur Weir ANP 230 [place] [address] Primary hypertension; Iron deficiency anemia, unspecified iron [...] Description 07/10/2025 9:45 AM EST Office Visit [address] [address] 08/07/2025 9:45 AM EST Office Visit [address] [address] 08/14/2025 9:15 AM EST Office Visit [address] [address] Nupur Weir ANP [address] [place] [address] 09/28/2025 9:30 AM EST Medication Management [address] [address] Fay Leigh, PharmD 230 [place] [address] documented as of this encounter Visit Diagnoses Diagnosis Primary hypertension Unspecified essential hypertension Iron deficiency anemia, unspecified iron deficiency anemia type documented in this encounter Care Teams Button Tufter Relationship Specialty Start Date End Date Nupur Weir ANP 230 [place] [address] PCP - General Family Medicine 01/16/20 Abel Chavarria, ILENE [address] [place] [address] Registered Nurse Family Medicine 02/26/25 06/18/25 Margareth Chavarria 02/26/25 06/21/25 documented as of this encounter
--- OUTSIDE RECORDS SUMMARY | 2025-07-02 11:56 | XMS_ITS | Encounter Summary ---
Author Organization [employer] Address [address] [facility] 7t [place] [address] Care Team Providers Care Student Specialist Name Role Phone Nupur Weir Primary Care Provider [phone] Abel Chavarria RN Unavailable [phone] Margareth Chavarria Unavailable Reason for Visit * Reason Comments Med Refill Encounter Details Date Type Department Care Team (Late st Contact Info) Description 01/09/2023 Refill [facility] MEDICINE 230 [place], [place] [phone] Nupur Weir ANP 230 [place] [address] Arthralgia, unspecified joint; Other specified hypothyroidism Social [...] ([facility] st Contact Info) Description 07/10/2025 9:45 AM EST Office Visit [address] [address] 08/07/2025 9:45 AM EST Office Visit [address] [address] 08/14/2025 9:15 AM EST Office Visit [address] [address] Nupur Weir ANP [address] [place] [address] 09/28/2025 9:30 AM EST Medication Management [address] [address] Fay Leigh PharmD [address] [place] [address] documented as of this encounter Visit Diagnoses Diagnosis Arthralgia, unspecified joint Other specified hypothyroidism documented in this encounter Care Teams Student Specialist Relationship Specialty Start Date End Date Nupur Weir ANP [address] [place] [address] PCP - General Family Medicine 01/16/20 Abel Chavarria RN [address] [place] [address] Registered Nurse Family Medicine 02/26/25 06/18/25 Margareth Chavarria 02/26/25 06/21/25 documented as of this encounter
--- OUTSIDE RECORDS SUMMARY | 2025-07-02 11:56 | XMS_ITS | Encounter Summary ---
Author Organization [employer] Address [address] [facility] [address] 7t [place] [address] Care Team Providers Care Special Effects Technician Name Role Phone Nupur Weir Primary Care Provider [phone] Abel Chavarria RN Unavailable [phone] Margareth Chavarria Unavailable Reason for Visit * Reason Onset Date Comments rs no show appt 11/30/2024 Encounter Details Date Type Department Care Team (Late st Contact Info) Description 11/30/2024 Telephone [facility] ADULT DENTAL 230 [place], [place] [phone] Taty Laura [address] [place], [place] [phone] rs no show appt Social History Tobacco [...] 07/10/2025 9:45 AM EST Office Visit [address] [address] 08/07/2025 9:45 AM EST Office Visit [address] [address] 08/14/2025 9:15 AM EST Office Visit [address] [address] Nupur Weir ANP [address] [place] [address] 09/28/2025 9:30 AM EST Medication Management [address] [address] Fay Leigh, PharmD [address] [place] [address] documented as of this encounter Visit Diagnoses Not on filedocumented in this encounter Care Teams Special Effects Technician Relationship Specialty Start Date End Date Nupur Weir ANP [address] [place] [address] PCP - General Family Medicine 01/16/20 Abel Chavarria RN [address] [place] [address] [place] [address] Registered Nurse Family Medicine 02/26/25 06/18/25 Margareth Chavarria 02/26/25 06/21/25 documented as of this encounter
--- OUTSIDE RECORDS SUMMARY | 2025-07-02 11:56 | XMS_ITS | Encounter Summary ---
Author Organization [employer] Address [address] [facility] [address] 7t [place] [address] Care Team Providers Care Records Management Clerk Name Role Phone Nupur Weir Primary Care Provider [phone] Abel Chavarria RN Unavailable [phone] Margareth Chavarria Unavailable Reason for Visit * Reason Onset Date Comments Medication Question 06/18/2025 Encounter Details Date Type Department Care Team (Late st Contact Info) Description 06/18/2025 Telephone [facility] 230 [place], [place] [phone] Nupur Weir ANP 230 [place], [place] [phone] Medication Question Social History Tobacco Use Types [...] Upcoming Encounters Date Type Department Care Team ([facility] st Contact Info) Description 07/10/2025 9:45 AM EST Office Visit [facility] [address] [place] [address] 08/07/2025 9:45 AM EST Office Visit [facility] [address] [place] [address] 08/14/2025 9:15 AM EST Office Visit [address] [address] Nupur Weir ANP 230 [place], [place] [phone] 09/28/2025 9:30 AM EST Medication Management [address] [address] Fay Leigh, Elba [address] [place] [address] documented as of this encounter Visit Diagnoses Not on filedocumented in this encounter Additional Health Concerns Assessment Noted Time PHQ-9 Depression Total Score: 17 025 10:08 AM EDT documented as of this encounter Care Teams Records Management Clerk Relationship Specialty Start Date End Date Nupur Weir ANP [address] [place] [address] PCP - General Family Medicine 01/16/20 Abel Chavarria, ILENE [address] [place] [address] Registered Nurse Family Medicine 02/26/25 06/18/25 Margareth Chavarria 02/26/25 06/21/25 documented as of this encounter
--- OUTSIDE RECORDS SUMMARY | 2025-07-02 11:56 | XMS_ITS | Encounter Summary ---
Author Organization [employer] Address [address] [facility] [address] 7t [place] [address] Care Team Providers Care Helpdesk Analyst Name Role Phone Nupur Weir Primary Care Provider [phone] Abel Chavarria RN Unavailable [phone] Margareth Chavarria Unavailable Reason for Visit * Reason Comments Med Refill Encounter Details Date Type Department Care Team (Late st Contact Info) Description 02/11/2024 Refill [facility] MED[facility] 230 [place], [place] [phone] Nupur Weir ANP 230 [place] [address] Social History Tobacco Use Types Packs/Day Years [...] 07/10/2025 9:45 AM EST Office Visit [address] [address] 08/07/2025 9:45 AM EST Office Visit [address] [address] 08/14/2025 9:15 AM EST Office Visit [address] [address] Nupur Weir ANP [address] [place] [address] 09/28/2025 9:30 AM EST Medication Management [address] [address] Fay Leigh, PharmD [address] [place] [address] documented as of this encounter Visit Diagnoses Not on filedocumented in this encounter Care Teams Helpdesk Analyst Relationship Specialty Start Date End Date Nupur Weir ANP [address] [place] [address] PCP - General Family Medicine 01/16/20 Abel Chavarria RN [address] [place] [address] AMMY Mirza [address] Registered Nurse Family Medicine 02/26/25 06/18/25 Margareth Chavarria 02/26/25 06/21/25 documented as of this encounter
--- OUTSIDE RECORDS SUMMARY | 2025-07-02 11:56 | XMS_ITS | Encounter Summary ---
Author Organization [employer] Address [address] [facility] [address] 7t [place] [address] Care Team Providers Care Full Stack Python Developer Name Role Phone Nupur Weir Primary Care Provider [phone] Margareth Chavarria Unavailable Reason for Visit * Reason Comments Med Refill Encounter Details Date Type Department Care Team (Late st Contact Info) Description 06/19/2025 Refill [facility] 230 [place] [address] Nupur Weir ANP 230 [place] [address] Arthralgia, unspecified joint Social History Tobacco Use [...] 07/10/2025 9:45 AM EST Office Visit [address] [address] 08/07/2025 9:45 AM EST Office Visit [address] [address] 08/14/2025 9:15 AM EST Office Visit [address] [address] Nupur Weir, ANP [address] [place] [address] 09/28/2025 9:30 AM EST Medication Management [address] [address] Fay Leigh, MayoD [address] [place] [address] documented as of this encounter Visit Diagnoses Diagnosis Arthralgia, unspecified joint documented in this encounter Additional Health Concerns Assessment Noted Time PHQ-9 Depression Total Score: 17 04/12/ 025 10:08 AM EDT documented as of this encounter Care Teams Full Stack Python Developer Relationship Specialty Start Date End Date Nupur Weir ANP 230 [facility] [place] [address] PCP - General Family Medicine 01/16/20 Margareth Chavarria 02/26/25 06/21/25 documented as of this encounter
--- OUTSIDE RECORDS SUMMARY | 2025-07-02 11:56 | XMS_ITS | Encounter Summary ---
Author Organization [employer] Address [address] [facility] [address] 7t [place] [address] Care Team Providers Care Automatic Pilot Mechanic Name Role Phone Nupur Weir Primary Care Provider [phone] Abel Chavarria RN Unavailable [phone] Margareth Chavarria Unavailable Reason for Visit * Reason Comments Med Refill Encounter Details Date Type Department Care Team (Late st Contact Info) Description 09/19/2023 Refill [facility] 230 [place], [place] [phone] Nupur Weir ANP 230 [place] [address] Constipation, unspecified constipation type Social History Tobacco [...] 07/10/2025 9:45 AM EST Office Visit [address] [address] 08/07/2025 9:45 AM EST Office Visit [address] [address] 08/14/2025 9:15 AM EST Office Visit [address] [address] Nupur Weir ANP [address] [place] [address] 09/28/2025 9:30 AM EST Medication Management [address] [address] Fay Leigh, PharmD [address] [place] [address] documented as of this encounter Visit Diagnoses Diagnosis Constipation, unspecified constipation type documented in this encounter Care Teams Automatic Pilot Mechanic Relationship Specialty Start Date End Date Nupur Weir ANP [address] [place] [address] PCP - General Family Medicine 01/16/20 Abel Chavarria RN [address] [place] [address] Registered Nurse Family Medicine 02/26/25 06/18/25 Margareth Chavarria 02/26/25 06/21/25 documented as of this encounter
--- OUTSIDE RECORDS SUMMARY | 2025-07-02 11:57 | XMS_ITS | Encounter Summary ---
Author Organization [employer] Address [address] [facility] [address] 7t [place] [address] Care Team Providers Care Aboriginal Ceremonial Celebrant Name Role Phone Nupur Weir Primary Care Provider [phone] Abel Chavarria RN Unavailable [phone] Margareth Chavarria Unavailable Encounter Details Date Type Department Care Team (Late st Contact Info) Description 04/11/2024 Orders Only [facility] 230 [place], [place] [phone] Nupur Weir ANP 230 [place], [place] [phone] Social History Tobacco Use Types Packs/Day Years [...] Description 07/10/2025 9:45 AM EST Office Visit [address] [address] 08/07/2025 9:45 AM EST Office Visit [address] [address] 08/14/2025 9:15 AM EST Office Visit [address] [address] Nupur Weir ANP [address] [place] [address] 09/28/2025 9:30 AM EST Medication Management [address] [address] Fay Leigh, PharmD [address] [place] [address] documented as of this encounter Visit Diagnoses Not on filedocumented in this encounter Care Teams Aboriginal Ceremonial Celebrant Relationship Specialty Start Date End Date Nupur Weir ANP [address] [place] [address] PCP - General Family Medicine 01/16/20 Abel Chavarria RN [address] [place] [address], [place] [address] Registered Nurse Family Medicine 02/26/25 06/18/25 Margareth Chavarria 02/26/25 06/21/25 documented as of this encounter
--- OUTSIDE RECORDS SUMMARY | 2025-07-02 11:57 | XMS_ITS | Encounter Summary ---
Author Organization [employer] Address [address] [facility] [address] 7t [place] [address] Care Team Providers Care Door Glass Installer Name Role Phone Nupur Weir Primary Care Provider [phone] Abel Chavarria RN Unavailable [phone] Margareth Chavarria Unavailable Reason for Visit * Reason Comments Med Refill Encounter Details Date Type Department Care Team (Late st Contact Info) Description 11/11/2023 Refill [facility] 230 [place], [place] [phone] Nupur Weir ANP 230 [place] [address] Social History Tobacco Use Types Packs/Day Years [...] Description 07/10/2025 9:45 AM EST Office Visit [address] [address] 08/07/2025 9:45 AM EST Office Visit [address] [address] 08/14/2025 9:15 AM EST Office Visit [address] [address] Nupur Weir ANP [address] [place] [address] 09/28/2025 9:30 AM EST Medication Management [address] [address] Fay Leigh, PharmD [address] [place] [address] documented as of this encounter Visit Diagnoses Not on filedocumented in this encounter Care Teams Door Glass Installer Relationship Specialty Start Date End Date Nupur Weir ANP [address] [place] [address] PCP - General Family Medicine 01/16/20 Abel Chavarria RN [address] [place] [address] AMMY Mirza [address] Registered Nurse Family Medicine 02/26/25 06/18/25 Margareth Chavarria 02/26/25 06/21/25 documented as of this encounter
--- OUTSIDE RECORDS SUMMARY | 2025-07-02 11:57 | XMS_ITS | Encounter Summary ---
Author Organization [employer] Address [address] [facility] 7t [place] [address] Care Team Providers Care Program Director/Traffic Director Name Role Phone Nupur Weir Primary Care Provider [phone] Abel Chavarria RN Unavailable [phone] Margareth Chavarria Unavailable Encounter Details Date Type Department Care Team (Late st Contact Info) Description 07/30/2022 Abstract [facility] 230 [place] [address] Dental, Provider, DDS Social History Tobacco Use [...] 9:45 AM EST Office Visit [facility] [address] [place] [address] [phone] 08/07/2025 9:45 AM EST Office Visit [facility] [address] [place] [address] [phone] 08/14/2025 9:15 AM EST Office Visit [facility] [address] [place] [address] [phone] Nupur Weir ANP 230 [place] [address] 09/28/2025 9:30 AM EST Medication Management [facility] 230 [place] [address] Fay Leigh, PharmD 230 [place] [address] documented as of this encounter Procedures Procedure [...] on filedocumented in this encounter Care Teams Program Director/Traffic Director Relationship Specialty Start Date End Date Nupur Weir ANP 230 [place] [address] PCP - General Family Medicine 01/16/20 Abel Chavarria, ILENE [address] [place] [address] Registered Nurse Family Medicine 02/26/25 06/18/25 Margareth Chavarria 02/26/25 06/21/25 documented as of this encounter
--- OUTSIDE RECORDS SUMMARY | 2025-07-02 11:57 | XMS_ITS | Encounter Summary ---
Author Organization [employer] Address [address] [facility] 7t [place] [address] Care Team Providers Care Band Sawmill Operator Name Role Phone Nupur Weir Primary Care Provider [phone] Abel Chavarria RN Unavailable [phone] Margareth Chavarria Unavailable Reason for Visit * Reason Onset Date Comments Med Refill 05/14/2023 Encounter Details Date Type Department Care Team (Late st Contact Info) Description 05/14/2023 Telephone [facility] 230 [place], [place] [phone] Nupur Weir ANP 230 [place], [place] [phone] Med Refill Social History Tobacco Use Types [...] 07/10/2025 9:45 AM EST Office Visit [address] [address] 08/07/2025 9:45 AM EST Office Visit [address] [address] 08/14/2025 9:15 AM EST Office Visit [address] [address] Nupur Weir ANP [address] [place] [address] 09/28/2025 9:30 AM EST Medication Management [address] [address] Fay Leigh, PharmD [address] [place] [address] documented as of this encounter Visit Diagnoses Not on filedocumented in this encounter Care Teams Band Sawmill Operator Relationship Specialty Start Date End Date Nupur Weir ANP 230 [place] [address] PCP - General Family Medicine 01/16/20 Abel Chavarria, RN [address] [place] [address] Registered Nurse Family Medicine 02/26/25 06/18/25 Margareth Chavarria 02/26/25 06/21/25 documented as of this encounter
--- OUTSIDE RECORDS SUMMARY | 2025-07-02 11:57 | XMS_ITS | Encounter Summary ---
Author Organization [employer] Address [address] [facility] [address] 7t [place] [address] Care Team Providers Care Supervisor Mattress And Boxsprings Name Role Phone Nupur Weir Primary Care Provider [phone] Abel Chavarria RN Unavailable [phone] Margareth Chavarria Unavailable Reason for Visit * Reason Comments Med Refill Encounter Details Date Type Department Care Team (Late st Contact Info) Description 12/21/2024 Refill [facility] 230 [place], [place] [phone] Nupur Weir ANP 230 [place] [address] Arthralgia, unspecified joint Social History Tobacco Use [...] 07/10/2025 9:45 AM EST Office Visit [address] [address] 08/07/2025 9:45 AM EST Office Visit [address] [address] 08/14/2025 9:15 AM EST Office Visit [address] [address] Nupur Weir, BATOOL 230 [place] [address] 09/28/2025 9:30 AM EST Medication Management [address] [address] Fay Leigh, MayoD 230 [place] [address] documented as of this encounter Visit Diagnoses Diagnosis Arthralgia, unspecified joint documented in this encounter Care Teams Supervisor [employer]ress And Boxsprings Relationship Specialty Start Date End Date Nupur Weir ANP 230 [place] [address] PCP - General Family Medicine 01/16/20 Abel Chavarria, ILENE [address] [place] [address] Registered Nurse Family Medicine 02/26/25 06/18/25 Margareth Chavarria 02/26/25 06/21/25 documented as of this encounter
--- OUTSIDE RECORDS SUMMARY | 2025-07-02 11:57 | XMS_ITS | Encounter Summary ---
Author Organization [email or web address] Address [address] [facility] [address] 7t [place] [address] Care Team Providers Care Call Centre Supervisor Name Role Phone Nupur Weir Primary Care Provider [phone] Abel Chavarria RN Unavailable [phone] Margareth Chavarria Unavailable Reason for Visit * Reason Comments Med Refill Encounter Details Date Type Department Care Team (Late st Contact Info) Description 03/22/2024 Refill [facility]INE 230 [place], [place] [phone] Marcella Colindres MD 230 [place] [address] Acute pyelonephritis Social History Tobacco Use Types [...] Description 07/10/2025 9:45 AM EST Office Visit [address] [address] 08/07/2025 9:45 AM EST Office Visit [address] [address] 08/14/2025 9:15 AM EST Office Visit [address] [address] Nupur Weir ANP [address] [place] [address] 09/28/2025 9:30 AM EST Medication Management [address] [address] Fay Leigh, PharmD [address] [place] [address] documented as of this encounter Visit Diagnoses Diagnosis Acute pyelonephritis 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
--- OUTSIDE RECORDS SUMMARY | 2025-07-02 11:57 | XMS_ITS | Encounter Summary ---
Author Organization [employer] Address [address] [facility] [address] 7t [place] [address] Care Team Providers Care Assistant Dean Of Students Name Role Phone Nupur Weir Primary Care Provider [phone] Abel Chavarria RN Unavailable [phone] Margareth Chavarria Unavailable Reason for Visit * Reason Comments Med Refill Encounter Details Date Type Department Care Team (Late st Contact Info) Description 12/22/2024 Refill [facility] MED[facility]INE 230 [place], [place] [phone] Nupur Weir ANP 230 [place] [address] Arthralgia, unspecified joint Social History Tobacco Use [...] 07/10/2025 9:45 AM EST Office Visit [address] [address] 08/07/2025 9:45 AM EST Office Visit [address] [address] 08/14/2025 9:15 AM EST Office Visit [address] [address] Nupur Weir, BATOOL 230 [place] [address] 09/28/2025 9:30 AM EST Medication Management [address] [address] Fay Leigh, MayoD 230 [place] [address] documented as of this encounter Visit Diagnoses Diagnosis Arthralgia, unspecified joint documented in this encounter Care Teams Assistant Dean Of Students Relationship Specialty Start Date End Date Nupur Weir ANP 230 [place] [address] PCP - General Family Medicine 01/16/20 Abel Chavarria, ILENE [address] [place] [address] Registered Nurse Family Medicine 02/26/25 06/18/25 Margareth Chavarria 02/26/25 06/21/25 documented as of this encounter
--- OUTSIDE RECORDS SUMMARY | 2025-07-02 11:57 | XMS_ITS | Encounter Summary ---
Author Organization [employer] Address 75 [facility] 7t [place] [address] Care Team Providers Care Cosmetic Dentist Name Role Phone Nupur Weir Primary Care Provider [phone] Able Chavarria RN Unavailable [phone] Margareth Chavarria Unavailable Encounter Details Date Type Department Care Team (Latest Contact Info) Description 03/26/2022 Abstract [facility] CON[facility] Dental, Provider, DDS Social History [...] 07/10/2025 9:45 AM EST Office Visit [facility]INE [address] [place] [address] [phone] 08/07/2025 9:45 AM EST Office Visit [facility] [address] [place] [address] [phone] 08/14/2025 9:15 AM EST Office Visit [facility] [address] [place] [address] Nupur Weir ANP 230 [place], [place] [phone] 09/28/2025 9:30 AM EST Medication Management [facility]INE 230 [place], [place] [phone] Fay Leigh, Elba 230 [place] [address] documented as of this encounter Visit Diagnoses Not on filedocumented in this encounter Care Teams Cosmetic Dentist Relationship Specialty Start Date End Date Nupur Weir ANP 230 [place] [address] PCP - General Family Medicine 01/16/20 Abel Chavarria, ILENE [address] [place] [address] Registered Nurse Family Medicine 02/26/25 06/18/25 Margareth Chavarria 02/26/25 06/21/25 documented as of this encounter
--- OUTSIDE RECORDS SUMMARY | 2025-07-02 11:57 | XMS_ITS | Encounter Summary ---
Author Organization [employer] Address [address] [facility] [address] 7t [place] [address] Care Team Providers Care Head Of Strategy Name Role Phone Nupur Weir Primary Care Provider Abel Chavarria RN Unavailable [phone] Margareth Chavarria Unavailable Encounter Details Date Type Department Care Team (Late st Contact Info) Description 07/05/2024 Telephone [facility] ADULT DENTAL 230 [place] [address] Yarelis Rosales DDS 230 [place] [address] Social History Tobacco Use Types Packs/Day Years [...] Description 07/10/2025 9:45 AM EST Office Visit [facility] [address] [place] [address] 08/07/2025 9:45 AM EST Office Visit [address] [address] 08/14/2025 9:15 AM EST Office Visit [address] [address] Nupur Weir ANP [address] [place] [address] 09/28/2025 9:30 AM EST Medication Management [address] [address] Fay Leigh, MayoD 230 [place] [address] documented as of this encounter Visit Diagnoses Not on filedocumented in this encounter Care Teams Head Of Strategy Relationship Specialty Start Date End Date Nupur Weir ANP 230 [place] [address] PCP - General Family Medicine 01/16/20 Abel Chavarria, ILENE 505 [place] [address] Registered Nurse Family Medicine 02/26/25 06/18/25 Margareth Chavarria 02/26/25 06/21/25 documented as of this encounter
--- OUTSIDE RECORDS SUMMARY | 2025-07-02 11:57 | XMS_ITS | Encounter Summary ---
Author Organization [employer] Address 75 [facility] 7t [place] [address] Care Team Providers Care Coin Machine Collector Name Role Phone Nupur Weir Primary Care Provider Abel Chavarria RN Unavailable [phone] Margareth Chavarria Unavailable Encounter Details Date Type Department Care Team (Late st Contact Info) Description 08/14/2022 Abstract [facility]ULT [facility] 230 [place] [address] Angel Lagos, CAPRI 230 [place] [address] Social History Tobacco Use Types Packs/Day Years [...] Description 07/10/2025 9:45 AM EST Office Visit [facility] [address] [place] [address] 08/07/2025 9:45 AM EST Office Visit [address] [phone] 08/14/2025 9:15 AM EST Office Visit [address] [address] Nupur Weir ANP [address] [place] [address] 09/28/2025 9:30 AM EST Medication Management [address] [address] Fay Leigh PharmD [address] [place] [address] [phone] documented as of this encounter Visit Diagnoses Not on filedocumented in this encounter Care Teams Coin Machine Collector Relationship Specialty Start Date End Date Nupur Weir ANP [address] [place] [address] [phone] PCP - General Family Medicine 01/16/20 Abel Chavarria RN [address] [place] [address] Registered Nurse Family Medicine 02/26/25 06/18/25 Margareth Chavarria 02/26/25 06/21/25 documented as of this encounter
--- OUTSIDE RECORDS SUMMARY | 2025-07-02 11:57 | XMS_ITS | Patient Health Record ---
Author Organization [facility] Address [address] [place] [address] Care Team Providers Care Duster Tender Name Role Phone MICHAEL YANEZ N.P. Primary Care Provider Fidencio Langley Jr Unavailable [phone] Allergies Allergen (clinical drug ingredient) Drug/Non Drug Allergy documented on EMR Reaction Allergy Type Onset Date Status fentanyl fentaNYL Unknown Drug Allergy Active Results Component Value Reference Range Notes Complete Blood Count Auto Di ff Reviewed date:07/17/2024 08:00:34 AM Interpretation: Performing Lab:[facility], [address] [place] [phone] Notes/Report: White Blood Count 5.3 4.8-10.8 X10*3/uL [...] Panel Reviewed date:07/17/2024 08:00:27 AM Interpretation: Performing Lab:[facility], [address] [place] [phone] Notes/Report: Bilirubin Total 0.7 0.0-1.0 mg/dL Bilirubin Direct 0.3 0.0-0.5 mg/dL Aspartate Amino Transferase 21 5-31 U/L Alanine Aminotransferase 17 0-31 U/L Total Protein 6.4 6.5-8.0 g/dL Albumin Level 3.7 3.5-5.0 g/dL Alkaline Phosphatase 104 39-117 U/L Lipase Reviewed date:07/17/2024 08:00:21 AM Interpretation: Performing Lab:[facility], [address] [place] [phone] Notes/Report: Lipase 14 8-78 U/L Thyroid Stimulating Hormone Reviewed date:07/17/2024 08:00:15 AM Interpretation: Performing Lab:[facility], [address] [place] [phone] Notes/Report: Thyroid Stimulating Hormone 0.97 0.32-4.0 uIU/ mL TSH 3rd Generation ([facility]) Reason For Referral Referring Provider First Name MICHAEL Referring Provider Last Name BEAU Huber Referred Organization [facility] Referred Provider Fidencio Vila Jr Referred Address [address] [place] [address],[place], [place],[address],[place] Referred Provider Specialty Gastroentero logy General Notes Sarah Posey 2024 03:34:27 PM >requested a [facility] referral from [facility] for visit with Dr. Vila on 07-18-25 Clinical Notes Mackay, Sarah 2024 09:14:45 AM >REQUESTED REFERRAL AGAIN Referral Priority Routine Medications Medication SIG (Take, Route, Frequency, Duration) [...] Status Risk Notes Problem Colon cancer screening (982166151) Colon cancer screening (Z12.11) Active confirmed Problem Rectal bleeding (63832626) Rectal bleeding (K62.5) Active confirmed Problem Epigastric pain (10544211) Epigastric pain (R10.13) Active confirmed Problem Dysphagia (53465785) Dysphagia (R13.10) Active confirmed Problem Elevated liver enzymes level (839687109) Elevated LFTs (R79.89) Active confirmed Problem Gastroesophageal reflux disease without esophagitis (549170127) Gastroesophageal reflux disease without esophagitis (K21.9) Active confirmed Problem Dysphagia (26490812) Dysphagia, unspecified type (R13.10) Active confirmed Vital Signs Blood pressure diastolic 00 mm Hg 07/14/2024 Height 64.5 in 07/14/2024 Blood pressure systolic 00 mm Hg 07/14/2024 Weight 153 lbs 07/14/2024 BMI 25.85 kg/m2 07/14/2024 Encounters Encounter Location Date Provider Diagnosis [facility] [address] [place] [address] 07/14/2024 Fidencio Vila Jr Abdominal cramping R10.9 [facility] [address] [place] [address] 07/17/2024 Fidencio Vila Jr Assessments Encounter Date [...] CBC w DIFF 07/14/2024 CBC w/o DIFF 11/11/2022 CBC w/o DIFF 11/30/2022 MITOCHONDRIAL AB 06/02/2023 SMOOTH MUSCLE ANTIBODIES 06/02/2023 XR GI SERIES 09/12/2015 US ABD 11/30/2022 Future Test Test Name Order Date COLONOSCOPY 07/08/2012 UPPER GI ENDOSCOPY BALLOOON DILATION OF ESOPH 12/11/2015 COLONOSCOPY 12/11/2015 COLONOSCOPY 06/23/2021 COLONOSCOPY 12/01/2023 Next Appt Details Provider Name:Fidencio haider Jr, 07/18/2025 11:20:00 AM, [address], [address], [place], [address], Insurance Providers Payer Name Payer Address Payer Phone Subscriber Number Group Number Insured Name Patient Relationship to Insured Coverage Start Date Coverage End Date [employer] [place] [address] [place] [id number] TAY TYLER Self - patient is the [...] partial hysterectomy tonsillectomy cancer in uterus [phone] Laparoscopic bypass surgery 11/14 removed two cyst removed fro m right shouder and outer colon =dr. jones
--- OUTSIDE RECORDS SUMMARY | 2025-07-02 11:57 | XMS_ITS | Clinical Summary ---
Author Organization [employer] Address [address] [place] [address] Care Team Providers Care Jute Bag Cutting Machine Operator Name Role Phone Michael Yanez BATOOL Primary Care Provider [phone] Allergies Active Allergy Reactions Criticality Noted Date [...] Intertrigo Apply twice daily for 14-28d to [facility] area 30 g 025 Active Cholecalciferol [...] BEFORE BREAKFAST 90 tablet 1 025 Active cyclobenzaprine (Flexeril) 10 MG [...] for up to 30 doses. 30 tablet 025 Active acetaminophen (Tylenol 8 Hour) 650 MG ER tablet Take 1 tablet (650 mg) by mouth every 8 (eight) hours if needed for mild pain. Do not crush, chew, or split. 40 tablet 025 2024 Active Ascorbic Acid (vitamin C) 500 MG tabletIndications :Iron deficiency anemia, unspecified iron deficiency anemia type TAKE 1 TABLET BY MOUTH EVERY EVENING WITH IRON supplement 90 tablet 10/07/2 025 Active Mometasone Furoate (Asmanex HFA) 100 MCG/ACT aerosol INHALE 1 PUFF BY MOUTH EVERY 12 HOURS RINSE MOUTH AFTER USING. 13 g 1 Active traMADol (Ultram) 50 MG tabletIndications :Back pain, unspecified back location, unspecified back pain laterality, unspecified chronicity Take 1 tablet (50 mg) by mouth every 8 (eight) hours if needed for severe pain for up to 14 days. Do not start before June 21, 2025. 42 tablet 2024 Active losartan (Cozaar) 50 MG tabletIndications :Primary hypertension TAKE 1 TABLET BY MOUTH EVERY MORNING 90 tablet Active meloxicam (Mobic) 15 MG tablet TAKE 1 TABLET BY MOUTH ONCE DAILY 30 tablet Active Mometasone Furoate (Asmanex HFA) 100 MCG/ACT aerosol INHALE 1 PUFF EVERY TWELVE HOURS 13 g 1 2024 Discontinued Ascorbic Acid (vitamin C) 500 MG tabletIndications :Iron deficiency anemia, unspecified iron deficiency anemia type TAKE 1 TABLET BY MOUTH EVERY EVENING WITH IRON supplement 90 tablet 2024 Discontinued(R eorder (will not trigger notification to Pharmacy)) losartan (Cozaar) 50 MG tabletIndications :Primary hypertension TAKE 1 TABLET BY MOUTH EVERY MORNING 90 tablet 025 2024 Discontinued meloxicam (Mobic) 15 MG tablet TAKE 1 TABLET BY MOUTH ONCE DAILY 30 tablet 2024 Discontinued(R eorder (will not trigger notification to Pharmacy)) acetaminophen (Tylenol 8 Hour) 650 MG ER [...] for 30 minutes after 14 capsule 2024 traMADol (Ultram) 50 MG tabletIndications :Back [...] Q8H PRN Indication: arthralgia, lumbar spondylosis Last [employer] SYSTEM ADMINISTRATOR Agreement: 12/01/24 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 UTOX unexpected. See radiologic technologist mammogram. Send out MTD and BZO confirmatory. Possible [...] organization. Date Type Department Care Team Description 07/02/2025 Refill [facility] MEDICINE [address] [place] [phone] Michale Yanez ANP Arthralgia, unspecified joint 06/21/2025 Patient Outreach [facility] MEDICINE [address] [place] [phone] Michael Yanez ANP Care Coordination (C3/CHW KHUSHBU Edwards- Last Follow up-Graduated) 06/19/2025 Refill [facility] MEDICINE [address] [place] [address] Michael Yanez ANP Arthralgia, unspecified joint 06/19/2025 Refill [facility] MEDICINE [address] [place] [phone] Jill Rivero MD Primary hypertension 06/18/2025 Refill [facility] MED & PEDS [address] [place] [address] Kassy Ramsey RN Back pain, unspecified back location, unspecified back pain laterality, unspecified chronicity 06/18/2025 Telephone [facility] MEDICINE [address] [place] [phone] Michael Yanez ANP Medication Question 06/18/2025 Patient Outreach [facility] MEDICINE [address] [place] [phone] Michael Yanez ANP Care Management (C3CM- f/u call) 06/17/2025 Refill [facility] WALK-IN CENTER [address] [place] [phone] Michael Yanez ANP 06/13/2025 Orders Only GENERIC EXTERNAL DATA DEPARTMENT Provider, Generic External Data 06/12/2025 9:45 AM EDT Office Visit [facility] MEDICINE [address] [place] [phone] Anushka Gunter, KYLER Lumbar spondylosis (Primary Dx); Long-term current use of opiate analgesic 06/12/2025 Refill [facility] MEDICINE [address] [place] [address] Chika Longo RN Back pain, unspecified back location, unspecified back pain laterality, unspecified chronicity (Primary Dx) 06/12/2025 Travel 06/07/2025 Patient Outreach [facility] MEDICINE [address] [place] [address] Michael Yanez ANP Care Management (C3CM- f/u call lvm) 06/06/2025 Patient Outreach [address] [address] Michael Yanez ANP Care Coordination (C3/W KHUSHBU Edwards-Follow up) 06/05/2025 9:00 AM EDT Office Visit [facility] WALK-IN CENTER [address] [place] [phone] Jaleel Block MD Wound infection (Primary Dx) 06/05/[address] [address] Michael Yanez ANP Iron deficiency anemia, unspecified iron deficiency anemia type 05/31/[address] [address] Michael Yanez ANP dec recall 05/29/2025 Patient Outreach [address] [address] Michael Yanez ANP Care Management (C3- f/u call) 05/25/2025 10:00 AM EDT Office Visit [facility] WALKIN [address] [address] Cecilia Johnson DO Pain and swelling of right lower leg (Primary Dx); Subcutaneous mass; Long-term current use of opiate analgesic; Back pain, unspecified back location, unspecified back pain laterality, unspecified chronicity 05/25/2025 Results Follow-Up [address] [address] Michael Yanez ANP US VENOUS DUPLEX LE RT, US Extremity Non Vascular Complete Joint Right 05/25/2025 Orders Only [address] [address] Cecilia Johnson DO 05/25/2025 Travel 05/25/2025 Refill [facility] WALK-IN CENTER [address] [place] [phone] Marcella Colindres MD 05/25/2025 Refill [facility] WALK-IN CENTER [address] [place] [phone] Jaleel Block MD 05/23/2025 Patient Outreach [address] [address] Michael Yanez ANP Care Coordination (C3/W KHUSHBU Edwards- follow up call) 05/23/2025 Refill [facility] MEDICINE [address] [place] [address] Michael Yanez ANP Migraine with aura and without status migrainosus, not intractable 05/15/2025 9:15 AM EDT Office Visit [address] [phone] Michael Yanez ANP Cat bite, subsequent encounter (Primary Dx); Pure hypercholesterolemia ; Primary hypertension; Hypothyroidism, unspecified type 05/15/2025 Patient Outreach [address] [phone] Michael Yanez ANP Care Management (C3- f/u call) 05/15/2025 Travel 05/14/[address] [phone] Michael Yanez ANP chart prep 05/14/[address] [phone] Julianne Anne RN AB Status Check 05/14/2025 Patient Outreach [address] [address] Michael Yanez ANP 05/13/2025 Orders Only GENERIC EXTERNAL DATA DEPARTMENT Provider, Generic External Data 05/11/2025 Patient Outreach [address] [phone] Michael Yanez ANP 05/09/2025 5:40 PM EDT Office Visit [facility] WALK-IN CENTER [address] [place] [address] Michael Yanez ANP Cat bite, subsequent encounter (Primary Dx); Puncture wound of calf, right, subsequent encounter 05/09/2025 Travel 05/08/2025 9:45 AM EDT Office Visit [address] [phone] Anushka Gunter FNP Lumbar spondylosis (Primary Dx); Long-term current use of opiate analgesic 05/08/2025 Refill [facility] MED & PEDS [address] [place], [place] [phone] Kassy Ramsey, ILENE Long-term current use of opiate analgesic; Back pain, unspecified back location, unspecified back pain laterality, unspecified chronicity 05/08/2025 Travel 05/07/2025 Patient Outreach [address] [address] Michael Yanez ANP Care Coordination (Aimee/KHUSHBU Jurado- Appt reminder/PT-1 update) 05/06/2025 Results Follow-Up [facility] WALK-IN CENTER [address] [place] [address] Jaleel Block MD CTA Chest PE Protocal 05/03/2025 Patient Outreach [address] [address] Michael Yanez ANP Care Coordination (Aimee/KHUSHBU Jurado-Follow up/PT-1) 05/03/2025 Patient Outreach [address] [address] Michael Yanez ANP Care Management (C3CM- f/u call) 05/01/2025 Orders Only [facility] WALK-IN CENTER [address] [place] [address] Jaleel Block MD 04/25/2025 Patient Outreach [address] [address] Michael Yanez ANP 04/23/2025 Patient Outreach [address] [address] Michael Yanez ANP Care Management (C3CM- f/u call) 04/18/[address] [address] Michael Yanez ANP Long-term current use of opiate analgesic; Back pain, unspecified back location, unspecified back pain laterality, unspecified chronicity 04/17/2025 10:30 AM EDT Clinical Support [facility] P[facility]S [address] [place] [address] Kassy Ramsey, ILENE Long-term current use of opiate analgesic (Primary Dx) 04/17/[address] [address] Michael Yanez ANP Iron deficiency anemia, unspecified iron deficiency anemia type 04/17/2025 Telephone [facility] MED [facility] PEDS [address] [place] [address] Kassy Ramsey RN 04/17/2025 Travel 04/16/[address] [address] Michael Yanez ANP Iron deficiency anemia, unspecified iron deficiency anemia type 04/11/2025 4:00 PM EDT Office Visit [address] [address] Michael Yanez ANP Primary hypertension (Primary Dx); RUQ pain 04/11/2025 Orders Only GENERIC EXTERNAL DATA DEPARTMENT Provider, Generic External Data 04/11/2025 Travel 04/10/2025 9:45 AM EDT Office Visit [address] [address] Anushka Gunter, UNEMPLOYMENT CLAIMS ADJUDICATOR Lumbar spondylosis (Primary Dx); Long-term current use of opiate analgesic 04/10/2025 Patient Outreach [address] [address] Michael Yanez ANP Care Coordination (C3CM/CHW KHUSHBU Edwards- Appt reminder) 04/10/2025 Telephone [facility] MED [facility] PEDS [address] [place] [address] Kassy Ramsey RN 04/10/[address] [address] Jaleel Block MD CTA Chest order 04/10/[address] [address] Michael Yanez ANP CHART PREP 04/10/2025 Telephone [facility] [address] [place] [address] Kassy Ramsey RN 04/10/2025 Travel 04/10/[address] [address] Michael Yanez ANP ER Follow-up 04/09/2025 Patient Outreach [address] [address] Michael Yanez ANP Care Management (C3CM- f/u call) 04/09/2025 Patient Outreach [address] [address] Michael Yanez ANP 04/06/2025 Patient Outreach [address] [address] Michael Yanez ANP Pre-visit Planning (SDOH screening completed on 02/26/25 ) 04/05/2025 Patient Outreach [address] [address] Michael Yanez ANP 04/05/2025 Telephone [facility] [address] [address] Jaleel Block MD 04/05/2025 Orders Only [facility] [address] [address] Jaleel Block MD Right-sided chest pain (Primary Dx); Hemoptysis 04/05/2025 Orders Only [facility] External Provider, [facility] 04/04/2025 9:40 AM EDT [facility] [address] [address] Jaleel Block MD Right-sided chest pain (Primary Dx); Hemoptysis 04/04/2025 Telephone [facility] [address] [address] Jaleel Block MD 04/04/2025 Orders Only [facility] [address] [address] Jaleel Block MD 04/04/2025 Telephone [facility] P[facility] [address] [place] [address] Jaleel Block MD 04/04/2025 Travel from Last 3 Months Immunizations Immunization Administration [...] Description 07/10/2025 9:45 AM EST Office Visit [facility] MEDICINE [address] [place] [address] 08/07/2025 9:45 AM EST Office Visit [address] [address] 08/14/2025 9:15 AM EST Office Visit [address] [address] Michael Yanez ANP [address] [place] [address] 09/28/2025 9:30 AM EST Medication Management [facility] MEDICINE [address] [place] [address] Fay Leigh, PharmD [address] [place] [address] Health Maintenance Due Date Last Done Comments [...] 2 :21 PM EDT Right-sided chest pain BI MAMMOGRAM SCREENING TOMOSYNTHESIS BILATERAL Routine 02/05/2025 [...] 1:40 PM EDT 06/14/2025 7:46 AM EDT [facility] LABS - 06/15/2025 12:59 PM EDT ----- ------- Name: Laura Gonzalez Age/Sex: 60/F : 1965 Unit#: [id number] Attend Dr: Preston Barksdale PA-C Re06/13/25 Status: DEP REF Location: HO.P Disch: ----- ------- SPEC : [id number] RECD: 06/14/2546 STATUS: CIELO PRICE NUM: [id number] ANGELA: 06/13/25 [facility] DR: Preston Barksdale PA-C ENTERED: 06/14/25 SP [...] the described surface lesion in cassette A2. ([facility]) IHC S/NG Disclaimer NOTE: Unless otherwise stated, all tissue is formalin-fixed and paraffin-embedded. Some or all of the immunohistochemical tests reported herein may have been developed and their performance characteristics determined by [facility]. They have not been cleared [...] Laura Gonzalez Age/Sex: 60/F : 1965 Unit#: [id number] Attend Dr: Preston Barksdale PA-C Re06/13/25 Status: DEP REF Location: HO.LNP Disch: ----- ------- SPEC : [id number] RECD: 06/14/25 STATUS: CIELO PRICE NUM: [id number] ANGELA: 06/13/[address] [facility] [address]: Preston Barksdale PA-C ENTERED: 06/14/25 SP TYPE: Surgical OTHR DR: MICHAEL YANEZ NP ORDERED: Gross Micro L3 Copies To: Preston Barksdale PA-C [facility] [address] [place] [address] [place] [address] [email or web address] MICHAEL YANEZ NP [address] [address] ----- ------- Signed (signature on file) Messi Anaya MD 06/15/25 8714 ----- ------- END OF REPORT us Generic External Data Provider LAB CYTOLOGY MARÍA NAJERA Final Result [facility] [address] [place] [address] [phone] * (ABNORMAL) POCT MERY-14 Urine Drug [...] Unknown 06/12/2025 10:48 AM EDT us Anushka Lambpeter UNEMPLOYMENT CLAIMS ADJUDICATOR POINT OF CARE TEST ENTER/EDIT ORDERABLES Edited Result - Final * US Extremity Non Vascular Complete Joint Right (05/25/2025 4:17 PM EDT) Anatomical Region Laterality Modality Ultrasound 05/25/2025 4:17 PM EDT Narrative 05/25/2025 5:12 PM EDT [place] [address] Ultrasound Report Signed Patient: Laura Gonzalez MR#: [id number] : 1965 Acct:[id number] Age/Sex: 60 / F ADM Date: 05/25/25 Loc: . Attending Dr: Cecilia Johnson DO Ordering Physician: Cecilia Johnson DO Date of Service: 05/25/25 Procedure(s): US Extremity Nonvas Comp JT RT Accession Number(s): [id number] cc: Cecilia Johnson DO; MICHAEL YANEZ NP [...] 05/25/25 170 DD/ 1617 TD/TT: 05/25/25 1620 Molder Bench: Procedure Note Donotuseinterpreter, Image - 05/25/2025 [place] [address] Ultrasound Report Signed Patient: Aleksandar Gonzalez#: [id number] : 1965Acct:[id number] Age/Sex: 60 / FADM Date: 05/25/25 Loc: HO.US Attending Dr: Cecilia Johnson DO Ordering Physician: Cecilia Johnson DO Date of Service: 05/25/25 Procedure(s): US Extremity Nonvas Comp JT RT Accession Number(s): [id number] cc: Cecilia Johnson DO; MICHAEL YANEZ NP [...] an abscess on ultrasound. Electronically signed by: Klebre Garg MD 05/25/2025 05:09 PM EDT RP Dictated By: Kleber Garg MD Signed By: <Electronically signed by Kleber Garg MD in OV> 05/25/251708 DD/ 1617 TD/TT: 05/25/25 1620 Molder Bench: us Cecilia Johnson DO IMG US PROCEDURES Final Resu lt * US VENOUS DUPLEX LE RT (05/25/2025 4:01 PM EDT) Anatomical Region Laterality Modality Abdomen Ultrasound 05/25/2025 4:01 PM EDT Narrative 05/25/2025 4:44 PM EDT [place] [address] Ultrasound Report Signed Patient: Laura Gonzalez MR#: [id number] : 1965 Acct:[id number] Age/Sex: 60 / F ADM Date: 05/25/25 Loc: HO.US Attending Dr: Cecilia Johnson DO Ordering Physician: Cecilia Johnson DO Date of Service: 05/25/25 Procedure(s): US venous duplex LE RT Accession Number(s): [id number] cc: Cecilia Johnson DO; MICHAEL YANEZ NP [...] 05/25/25 1642 DD/ 1601 TD/TT: 05/25/25 1615 Molder Bench: Procedure Note Donotuseinterpreter, Image - 05/25/[address] [address] Ultrasound Report Signed Patient: Aleksandar Gonzalez#: [id number] : 1965Acct:[id number] Age/Sex: 60 / FADM Date: 05/25/25 Loc: HO.US Attending Dr: Cecilia Johnson DO Ordering Physician: Cecilia Johnson DO Date of Service: 05/25/25 Procedure(s): US venous duplex LE RT Accession Number(s): [id number] cc: Cecilia Johnson DO; MICHAEL YANEZ NP [...] 05/25/25 1642 DD/ 1601 TD/TT: 05/25/25 1615 Molder Bench: us Cecilia Johnson DO IMG US PROCEDURES Final Resu lt * Hold Red (05/13/2025 9:41 AM EDT) Hold Red See Note [facility] Comment:Specimen held untest ed for 24 hours; Call to requestChemistry testing. 05/13/2025 9:41 AM EDT 05/13/2025 9:46 AM EDT us Generic External Data Provider LAB BLOOD ORDERAB LES Final Result [facility] [address] [place] [address] [phone] * (ABNORMAL) CBC auto differential (05/13/2025 9:41 AM EDT) Only the most recent of2 resultswithin the time period is included. White Blood Count 4.4(L) 4.8 - 10.8 X10*3/uL [facility] Red Blood Count 4.76 4.20 - 5.50 X10*6/uL [facility] Hemoglobin 13.8 12.0 - 16.0 g/dl [facility] Hematocrit 42.3 37.0 - 47.0 % [facility] Mean Corpuscular Volume 88.9 80.0 - 98.0 fL [facility] Mean Corpuscular Hemoglobin 29.0 27.0 - 33.0 pg [facility] Mean Corpuscular HGB Conc 32.6 31.0 - 35.0 g/dl [facility] Red Cell Distribution Width 13.8 11.0 - 16.0 % [facility] Platelet Count 272 160 - 400 X10*3/uL [facility] Mean Platelet Volume 8.1(L) 9.4 - 12.3 fL [facility] Neutrophils Percent Auto 42.8(L) 45 - 73 % [facility] Imm Gran Pct Auto 0.0 0.0 - 0.4 % [facility] Lymphocytes Percent Auto 38.5 20 - 40 % [facility] Monocytes Percent Auto 8.1 2 - 11 % [facility] Eosinophils Percent Auto 9.7(H) 0 - 4 % [facility] Basophils Percent Auto 0.9 0 - 2 % [facility] NRBC Pct Auto 0.0 0.0 - 0.2 /100WBC [facility] Neutrophils Absolute Auto 1.9(L) 2.0 - 8.3 x10*3/uL [facility] Imm Gran Abs Auto 0.00 0.00 - 0.03 X10*3/uL [facility] Lymphocytes Absolute Auto 1.7 1.2 - 4.9 X10*3/uL [facility] Monocytes Absolute Auto 0.4 0.1 - 1.2 X10*3/uL [facility] Eosinophils Absolute Auto 0.4 0.0 - 0.4 X10*3/uL [facility] Basophils Absolute Auto 0.0 0.0 - 0.2 X10*3/uL [facility] NRBC Abs Auto 0.000 0.0 - 0.012 X10*3/uL [facility] 05/13/2025 9:41 AM EDT 05/13/2025 9:45 AM EDT Generic External Data Provider LAB BLOOD ORDERAB LES Final Result Performing Organization Address City/[facility] Co de Phone Number [facility] [address] [place] [phone] * Sed Rate by Modified Bernardergren (05/13/2025 9:41 AM EDT) Pathologist [facility] Erythrocyte Sedimentation Rate 11 0 - 20 MM/HR [facility] Comment:Patients with polycy themia and many hemoglobin abnormalitiesmay have depressed sed rates whereas patients with anemiamay have elevated sed rates. 05/13/2025 9:41 AM EDT 05/13/2025 9:45 AM EDT Generic External Data Provider LAB BLOOD ORDERAB LES Final Result Performing Organization Address [facility] Co de Phone Number [facility] [address] [place] [phone] * C-reactive Protein (05/13/2025 9:41 AM EDT) Pathologist [facility] C Reactive Protein 0.27 < or = 0.50 mg/dL [facility] 05/13/2025 9:41 AM EDT 05/13/2025 9:45 AM EDT us Generic External Data Provider LAB BLOOD ORDERAB LES Final Result [facility] [address] [place] [address] [phone] * (ABNORMAL) Comprehensive Metabolic Panel (05/13/2025 9:41 AM EDT) Only the most recent of2 resultswithin the time period is included. Sodium 143 135 - 145 mmol/L [facility] Potassium 4.6 3.3 - 5.1 mmol/L [facility] Chloride 111(H) 96 - 108 mmol/L [facility] Carbon Dioxide 25 22 - 29 mmol/L [facility] Anion Gap 12 12 - 20 [facility] Urea Nitrogen (BUN) 9 9 - 16 mg/dL [facility] Creatinine, Serum 0.86 0.5 - 1.4 mg/dL [facility] Creatinine Clr Calc Pharmacy 63.3 [facility] Comment:Provided height and weight: 165.1 cm,66.4 kg.eGFR (calculated from the MDRD study equation) and eCrCl(calculated from the Cockcroft-Gault equation) are based ondifferent parameters and may not yield comparable results.If eCrCl result is absurd, please check patient'sheight/weight. Estimated Glomerular Filt Rate >60 [facility] Comment:Chronic Kidney Disea se: Estimated GFR < 60 mL/min/1.05m0Idiezc Kidney Disease: Estimated GFR < 15 mL/min/1.73m2 Glucose 109 60 - 115 mg/dL [facility] Calcium 9.4 8.4 - 10.2 mg/dL [facility] Bilirubin, Total 0.4 0.0 - 1.0 mg/dL [facility] Aspartate Amino Transferase 23 5 - 31 U/L [facility] Alanine Aminotransferase 19 0 - 31 U/L [facility] Total Protein 7.1 6.5 - 8.0 g/dL [facility] Albumin Level 4.2 3.5 - 5.0 g/dL [facility] Alkaline Phosphatase 99 39 - 117 U/L [facility] 05/13/2025 9:41 AM EDT 05/13/2025 9:45 AM EDT us Generic External Data Provider LAB BLOOD ORDERAB LES Final Result Performing Organization Address City/State/[facility] Co de Phone Number [facility] [address] [place] [phone] * CTA Chest PE Protocal (05/01/2025 2:33 PM EDT) Anatomical Region Laterality Modality Body, Chest Computed Tomogra phy 05/01/2025 2:33 PM EDT Narrative 05/01/2025 3:11 PM EDT [address] [address] [address] Scan Report Signed Patient: Laura Gonzalez MR#: [id number] : 1965 Acct:[id number] Age/Sex: 60 / F ADM Date: 05/01/25 Loc: HO.CT Attending Dr: Jaleel Block MD Ordering Physician: JALEEL BLOCK MD Date of Service: 05/01/25 Procedure(s): CT angio chest PE protocol Accession Number(s): [id number] cc: JALEEL BLOCK MD; MICHAEL YANEZ NP Report Number: [id number]: Total DLP = 139.00 mGy-cm Reason for [...] 05/01/25 1508 DD/ 1433 TD/TT: 05/01/25 1452 Molder Bench: Procedure Note Donotuseinterpreter, Image - 05/01/[address] [place] [address] [address] Scan Report Signed Patient: Aleksandar Gonzalez#: [id number] : 1965Acct:[id number] Age/Sex: 60 / FADM Date: 05/01/25 Loc: HO.CT Attending Dr: Jaleel Block MD Ordering Physician: JALEEL BLOCK MD Date of Service: 05/01/25 Procedure(s): CT angio chest PE protocol Accession Number(s): [id number] cc: JALEEL BLOCK MD; MICHAEL YANEZ NP Report Number: [id number]: Total DLP = 139.00 mGy-cm Reason for [...] 05/01/25 1508 DD/ 1433 TD/TT: 05/01/25 1452 Molder Bench: Jaleel Block MD [facility] CT PROCEDURES Final Result * Hematoxylin and Eosin Stain (04/11/2025 12:01 PM EDT) 04/11/2025 12:0 1 PM EDT 04/11/2025 1:46 PM EDT [facility] - 04/12/2025 2:08 PM EDT ----- ------- Name: Laura Gonzalez Age/Sex: 60/F : 1965 [facility]#: [id number] Unit#: [id number] Attend Dr: Tung Potter MD Re04/11/25 Status: [facility] Location: [facility] Disch: ----- ------- SPEC : [id number] RECD: 04/11/25-1345 STATUS: CIELO PRICE NUM: [id number] ANGELA: 04/11/25-1201 [facility] DR: Tung Potter MD ENTERED: 04/11/25-2 SP TYPE: Surgical OTHR DR: MICHAEL YANEZ ENVIRONMENTAL PROJECT MANAGER ORDERED: HE Stain/6, Gross Micro L4/2, IHC, [...] developed and their performance characteristics determined by [facility]. They have not been cleared or approved by the U.S. Food and Drug Administration (FDA). However, the FDA has determined that such clearance or approval is not necessary. This laboratory is CONTINUED ON NEXT PAGE ----- ------- Name: Laura Gonzalez Age/Sex: 60/F : 1965 Unit#: [id number] Attend Dr: Tung Potter MD Re04/11/25 Status: [facility] Location: [facility] Disch: ----- ------- SPEC : [id number] RECD: 04/11/25 STATUS: CIELO PRICE NUM: [id number] ANGELA: 04/11/25-1201 [facility] DR: Tung Potter MD ENTERED: 04/11/25 SP TYPE: Surgical OTHR DR: MICHAEL YANEZ NP ORDERED: HE Stain/6, Gross Micro L4/2, IHC, Special st. 2/2, H. pylori, AB/PAS/2 IHC S/NG Disclaimer (Continued) certified under the Clinical Laboratory Improvement Amendments of 1988 (CLIA) as qualified to perform high complexity clinical laboratory testing. Copies To: Tung Potter MD [facility] [address] [place], [place] [phone] MICHAEL YANEZ NP [facility] [address] [place] [address] ----- ------- Signed (signature on file) Yasmeen Carrasco MD 04/12/25 1408 ----- ------- END OF REPORT us Generic External Data Provider LAB BLOOD ORDERAB LES Final Result [facility] [address] [place] [phone] * Drug Monitoring, Benzodiazepines, Quantitative, Urine (04/10/2025 10:00 AM EDT) Nordiazepam, GCMS Urine NEGATIVE [facility] Comment:CUTOFF: 50 ng/mL Oxazepam, GCMS Urine NEGATIVE [facility] Comment:CUTOFF: 50 ng/mL Lorazepam GCMS Urine NEGATIVE [facility] Comment:CUTOFF: 50 ng/mL Alprazolam, GCMS Urine NEGATIVE [facility] Comment:CUTOFF: 25 ng/mL Alphahydroxytriazolam, GCMS Ur NEGATIVE [facility] Comment:CUTOFF: 50 ng/mL Temazepam, GCMS Urine NEGATIVE [facility] Comment:CUTOFF: 50 ng/mL Alphahydroxymidazolam,GC MS Ur NEGATIVE [facility] Comment:CUTOFF: 50 ng/mL Aminoclonazepam, GCMS Urine NEGATIVE [facility] Comment:CUTOFF: 25 ng/mL Flurazepam Metabolite,GCMS Ur NEGATIVE [facility] Comment:CUTOFF: 50 ng/mL Benzodiazepines Comments SEE NOTE [facility] Comment:This drug testing is for medical treatment only. Analysiswas performed as non-forensic testing and these resultsshould be used only by healthcare providers to renderdiagnosis or treatment, or to monitor progress of medicalconditions.LDT Notes:Confirmation tests were developed and their analyticalperformance characteristics have been determined by [employer]. It has not been cleared or approved by the FDA.This assay has been validated pursuant to the CLIAregulations and is used for clinical purposes.Healthcare Providers needing Interpretation assistance,please contact us at [phone] ( ) M-F,8am to 10pm ESTPERFORMING SITE:[facility] [employer] [facility], [address] [place] [phone] Yard Clerk: NILSA MATTHEWS MD, CLIA:[id number] Urine (Urine, Random) 04/10/2025 10:00 AM EDT 04/10/2025 1:08 PM EDT [facility] LAB URINE ORDERABLES Final Resul t [facility] [address] [place] [phone] [phone] * Drug Monitoring, Methadone Metabolite, Screen, Urine (04/10/2025 10:00 AM EDT) Methadone Screen, Urine Not Detected Not Detect ng/mL [facility] Comment:Methadone cut-off is 300 ng/mL.Positive results are unconfirmed and should not be used fornon-medical purposes. Urine (Urine, Random) 04/10/2025 10:00 AM EDT 04/10/2025 1:08 PM EDT us Michael Yanez ANP LAB URINE ORDERABLES Final Resul t [facility] [address] [place] [phone] * US Abdomen Limited (04/05/2025 12:53 PM EDT) Anatomical Region Laterality Modality Abdomen Ultrasound 04/05/2025 12:5 3 PM EDT Narrative 04/05/2025 1:28 PM EDT [address] [address] Ultrasound Report Signed Patient: Laura Gonzalez MR#: [id number] : 1965 Acct:[id number] Age/Sex: 60 / F ADM Date: 04/05/25 Loc: HO.ED Attending Dr: Ordering Physician: Alisha Saldivar PA-C Date of Service: 04/05/25 Procedure(s): US abdomen limited Accession Number(s): [id number] cc: Alisha Saldivar PA-C; MICHAEL YANEZ NP [...] 04/05/25 1325 DD/ 1253 TD/TT: 04/05/25 1302 Molder [address]: Procedure Note Donotuseinterpreter, Image - 04/05/2025 [place] [address] Ultrasound Report Signed Patient: Aleksandar Gonzalez#: [id number] : 1965Acct:[id number] Age/Sex: 60 / FADM Date: 04/05/25 Loc: HO.ED Attending Dr: Ordering Physician: Alisha Saldivar PA-C Date of Service: 04/05/25 Procedure(s): US abdomen limited Accession Number(s): [id number] cc: Alisha Saldivar PA-C; MICHAEL YANEZ NP [...] 04/05/25 1325 DD/ 1253 TD/TT: 04/05/25 1302 Molder Bench: us [facility] External Provider IMG US PROCEDURES Final Result * (ABNORMAL) Urinalysis, Complete, with Reflex to Culture (04/05/2025 10:08 AM EDT) Color Urine Yellow [facility] Appearance Urine Turbid [facility] PH 7.0 5.0 - 9.0 [facility] Glucose Urine UA Negative Negative mg/dL [facility] Urine Blood Negative Negative [facility] Specific [place] - Urine 1.015 1.005 - 1.025 [facility] Urine Protein Negative Neg-Trace mg/dL [facility] Urine Ketones Negative Negative mg/dL [facility] Nitrite Urine Negative Negative [facility] Leukocyte Esterase Urine Moderate (2+)(A) Negative [facility] RBC Urine 0-2 0 - 2 /HPF [facility] Urine WBC 6-10(A) 0 - 5 /HPF [facility] Urine Squamous Epithelial Cell 0-2 0 - 2 /HPF [facility] Urine Bacteria None Seen None Seen [facility] Hyaline Casts, Urine 0-2 0 - 2 /LPF [facility] 04/05/2025 10:0 8 AM EDT 04/05/2025 10:13 AM EDT Narrative [facility] - 04/05/2025 10:22 AM EDT Urine, Clean Catch Generic External Data Provider LAB URINE ORDERAB LES Final Result [facility] [address] [place] [phone] * D Dimer High Sensitivity (04/05/2025 10:05 AM EDT) Only the most recent of2 resultswithin the time period is included. [facility] D Dimer High Sensitivity 164 NG/ML [facility] Comment:D-DIMER HS REFERENCE RANGENote: [...] ORDERAB LES Final Result Performing Organization Address [facility] Co de Phone Number [facility] [address] [place] [phone] * High Sensitivity Troponin I (04/05/2025 10:05 AM EDT) [facility] TROPONIN I HIGH SENSITIVITY <2.7 <3.5 - 17.0 ng/L [facility] Comment:The Brar high sens itivity Troponin-I results should beused in conjunction with other diagnostic information suchas ECG, clinical observations and information, and patientsymptoms to aid in the diagnosis of GA. 04/05/2025 10:0 5 AM EDT 04/05/2025 10:08 AM EDT us Generic External Data Provider LAB BLOOD ORDERAB LES Final Result Performing Organization Address [facility] Co de Phone Number [facility] [address] [place] [phone] * Lipase (04/05/2025 10:05 AM EDT) [facility] Lipase 19 8 - 78 U/L [facility] 04/05/2025 10:0 5 AM EDT 04/05/2025 10:08 AM EDT us Generic External Data Provider LAB BLOOD ORDERAB LES Final Result [facility] [address] [place] [phone] * CT Abdomen Pelvis w/o Contrast (04/05/2025 9:45 AM EDT) Anatomical Region Laterality Modality Body, Pelvis, Abdomen Computed T omography 04/05/2025 9:45 AM EDT Narrative 04/05/2025 10:20 AM EDT [address] [address] [address] Scan Report Signed Patient: Laura Gonzalez MR#: [id number] : 1965 Acct:[id number] Age/Sex: 60 / F ADM Date: 04/05/25 Loc: HO.ED Attending Dr: Ordering Physician: Alisha Saldivar PA-C Date of Service: 04/05/25 Procedure(s): CT abdomen pelvis wo IV con Accession Number(s): [id number] cc: Alisha Saldivar PA-C; MICHAEL YANEZ NP Report Number: [id number]: Total DLP = 431.00 mGy-cm EXAMINATION: CT [...] 04/05/25 1018 DD/ 0945 TD/TT: 04/05/25 1000 [address]: Procedure Note Donotuseinterpreter, Image - 04/05/[address] [address] [address] Scan Report Signed Patient: Aleksandar Gonzalez#: [id number] : 1965Acct:[id number] Age/Sex: 60 / FADM Date: 04/05/25 Loc: HO.ED Attending Dr: Ordering Physician: Alisha Saldivar PA-C Date of Service: 04/05/25 Procedure(s): CT abdomen pelvis wo IV con Accession Number(s): [id number] cc: Alisha Saldivar PA-C; MICHAEL YANEZ NP Report Number: [id number]: Total DLP = 431.00 mGy-cm EXAMINATION: CT [...] 04/05/25 1018 DD/ 0945 TD/TT: 04/05/25 1000 [address]: us [facility] External Provider IMG CT PROCEDURES Final Result * XR Chest 2 Views (04/05/2025 8:44 AM EDT) Only the most recent of2 resultswithin the time period is included. Anatomical Region Laterality Modality Chest Radiographic Jennifer ging 04/05/2025 8:44 AM EDT Narrative 04/05/2025 9:59 AM EDT [address] [address] XRay Report Signed Patient: Laura Gonzalez MR#: [id number] : 1965 Acct:[id number] Age/Sex: 60 / F ADM Date: 04/05/25 Loc: .ED Attending Dr: Ordering Physician: Alisha Saldivar PA-C Date of Service: 04/05/25 Procedure(s): XR chest 2V Accession Number(s): [id number] cc: Alisha Saldivar PA-C; MICHAEL YANEZ ENVIRONMENTAL PROJECT MANAGER EXAMINATION: XR CHEST CLINICAL INFORMATION: right upper [...] 04/05/25 0956 DD/ 0844 TD/TT: 04/05/25 0942 Molder Bench: Procedure Note Donotuseinterpreter, Image - 04/05/[address] [address] XRay Report Signed Patient: Paz GonzalezR#: [id number] : 1965Acct:[id number] Age/Sex: 60 / FADM Date: 04/05/25 Loc: .ED Attending Dr: Ordering Physician: Alisha Saldivar PA-C Date of Service: 04/05/25 Procedure(s): XR chest 2V Accession Number(s): [id number] cc: Alisha Saldivar PA-C; MICHAEL YAENZ ENVIRONMENTAL PROJECT MANAGER EXAMINATION: XR CHEST CLINICAL INFORMATION: right upper [...] Schuster MD in OV> 04/05/25 0956 DD/ TD/TT: 04/05/25 0942 Molder Bench: [facility] External Provider IMG XR PROCEDURES Final Result * Culture, Urine, Routine (04/05/2025 12:00 AM EDT) Urine Urine specimen obtained by clean catch procedure / Unknown 04/05/2025 04/05/2025 Comment:UACC Narrative [facility] - 04/06/2025 10:53 AM EDT Urine Culture No growth. Specimen Source: Urine clean catch Generic External Data Provider LAB MICROBIOLOGY - GENERAL ORDERABLES Final Result [facility] [address] [place] [phone] * Creatinine, Serum (04/04/2025 2:21 PM EDT) Creatinine, Serum 0.78 0.5 - 1.4 mg/dL [facility] Estimated Glomerular Filt Rate >60 [facility] Comment:Chronic Kidney Disea se: Estimated GFR < 60 mL/min/1.52q3Sfivcb Kidney Disease: Estimated GFR < 15 mL/min/1.73m2 Blood Venous blood specimen / Unknown 04/04/2025 2:21 PM EDT 04/04/2025 2:21 PM EDT us Jaleel Block MD LAB BLOOD ORDERABLES Final Resul t Performing Organization Address [facility]/ZIP Co de Phone Number [facility] [address] [place] [phone] * BUN (Blood Urea Nitrogen) (04/04/2025 2:21 PM EDT) Urea Nitrogen (BUN) 11 9 - 16 mg/dL [facility] Blood Venous blood specimen / Unknown 04/04/2025 2:21 PM EDT 04/04/2025 2:21 PM EDT us Jaleel Block MD LAB BLOOD ORDERABLES Final Resul t Performing Organization Address [facility] Co de Phone Number [facility] [address] [place] [phone] * BI Mammogram Screening Tomosynthesis Bilateral (02/05/2025 12:34 PM EDT) Anatomical Region Laterality Modality Breast Bilateral Mammography 02/05/2025 12:3 4 PM EDT Narrative 02/12/2025 2:54 PM EDT [address] [place] [address] Mammography Report Signed Patient: Laura Graham MR#: [id number] : 1965 Acct:[id number] Age/Sex: 60 / F ADM Date: 02/05/25 Loc: HO.MAMMO Attending Dr: Alex Machuca MD Ordering Physician: Alex Machuca MD Results: 2Benign Findings Date of Service: 02/05/25 Follow Up: 1 Year From Orig inal Mammogram Procedure(s): MM tomosynthesis screening BI Accession Number(s): [id number] cc: MICHAEL YANEZ ENVIRONMENTAL PROJECT MANAGER; Alex Machuca MD EXAMINATION: MM SCREENING DIGITAL [...] 02/12/25 1451 DD/ 1234 TD/TT: 02/05/25 1248 Molder Bench: Procedure Note Donotuseinterpreter, Image - 02/12/2025 [facility] [address] [place] [address] Mammography Report Signed Patient: Aleksandar Graham#: [id number] 27 : 1965Acct:[id number] Age/Sex: 60 / FADM Date: 02/05/25 Loc: HO.MAMMO Attending Dr: Alex Machuca MD Ordering Physician: Alex Machuca MDResults: 2Benign Findings Date of Service: 02/05/25Follow Up: 1 Year From [facility] ina Mammogram Procedure(s): MM tomosynthesis screening BI Accession Number(s): [id number] cc: MICHAEL YANEZ ENVIRONMENTAL PROJECT MANAGER; Alex Machuca MD EXAMINATION: MM SCREENING DIGITAL [...] 02/12/25 1451 DD/ 1234 TD/TT: 02/05/25 1248 Molder Bench: [facility] External Provider IMG BI PROCEDURES Final Result * (ABNORMAL) Lipid Panel, Standard (08/25/2024 10:00 AM EST) Triglycerides 61 <150 mg/dL [facility] Comment:Desirable Triglyceri de: less than 150 mg/dLBorderline High Triglyceride 150-199 mg/dLHigh Triglyceride: 200-499 mg/dLVery High Triglyceride: greater than or equal to 5OO mg/dL Cholesterol 173 <200 mg/dL [facility] Comment:Desirable Cholestero l: less than 200 mg/dLBorderline High Cholesterol: 200-239 mg/dLHigh Cholesterol: greater than 239 mg/dL LDL Cholesterol Calculated 105(H) <100 mg/dL [facility] Comment:Desirable LDL: less than 100 mg/dLNear Optimal/Above Optimal LDL: 110- 129 mg/dLBorderline High LDL: 130-159 mg/dLHigh LDL: 160-189 mg/dLVery High LDL: greater than or equal to 190 mg/dL HDL Cholesterol 56 >40 mg/dL [facility] Comment:Desirable HDL: great er than 40 mg/dL Note: This HDL assay may give artificially low results in patients with liver disease. 08/25/2024 10:0 0 AM EST 08/25/2024 11:37 AM EST Michael Yanez [facility] LAB BLOOD ORDERABLES Final Resul t Performing Organization Address [facility] Co de Phone Number [facility] [address] [place] [phone] * HIV-1/2 Antigen and Antibodies, Fourth Generation, with Reflexes (01/04/2024 9:49 AM EDT) HIV AB/AG Nonreactive Nonreactive [facility] Comment:HIV-1 p24 Ag and/or HIV-1/HIV-2 Ab not detected.A test result that is nonreactive does not exclude thepossibility of exposure to or infection with HIV-1 and/orHIV-2. Nonreactive results in this assay for individualswith prior exposure to HIV-1 and/or HIV-2 may be due toantigen and antibody levels that are below the limit ofdetection of this assay.The [employer] HIV Ag/Ab Combo assay result andsupplemental assay results should be interpreted inconjunction with the patient's clinical presentation,history and other laboratory results. If the results areinconsistent with clinical evidence, additional testing issuggested to confirm the result. Blood Venous blood specimen / Unknown 01/04/2024 9:49 AM EDT 01/04/2024 11:50 AM EDT Result [facility] Michael Yanez [facility] LAB BLOOD ORDERABLES Final Resul t Performing Organization Address City/[facility] Co de Phone Number [facility] [address] [place] [phone] * Hepatitis C Ab (09/09/2022 10:23 AM EST) Hepatitis C Antibody Nonreactive Nonreactive [facility] Comment:Antibodies to HCV no t detected; does not exclude early acuteHCV infection. 09/09/2022 10:2 3 AM EST 09/09/2022 10:23 AM EST [facility] External Provider LAB BLO OD ORDERABLES Final Result [facility] [address] [place] [phone] * Hm Colonoscopy (07/08/2021 12:15 PM EST) Colonoscopy Normal Normal Fidencio Vila MD HEALTH MAINTENANCE Edited Re sult - Final from Last 3 Months or Most Recently Relevant to Health Maintenance Insurance [facility] C3 DENTAL-[facility] MEDICAID STAND ADULT [employer] [place] [id number] Care Teams Jute Bag Cutting Machine Operator Relationship Specialty Start Date End Date Michael Yanez ANP [address] [place] [phone] PCP - General Family Medicine 01/16/20
--- OUTSIDE RECORDS SUMMARY | 2025-07-02 11:57 | XMS_ITS | Encounter Summary ---
Author Organization [employer] Address [address] [place] [address] Care Team Providers Care Sound Printer Name Role Phone Nupur Weir Primary Care Provider [phone] Abel Chavarria RN Unavailable [phone] Margareth Chavarria Unavailable Reason for Visit * Reason Comments Med Refill Encounter Details Date Type Department Care Team (Late st Contact Info) Description 07/22/2024 Refill [facility] [address] [place], [place] [phone] Nupur Weir ANP [address] [place] [address] Social History Tobacco Use Types Packs/Day Years [...] Description 07/10/2025 9:45 AM EST Office Visit [address] [address] 08/07/2025 9:45 AM EST Office Visit [address] [address] 08/14/2025 9:15 AM EST Office Visit [address] [address] Nupur Weir ANP [address] [place] [address] 09/28/2025 9:30 AM EST Medication Management [address] [address] Fay Leigh, MayoD [address] [place] [phone] documented as of this encounter Visit Diagnoses Not on filedocumented in this encounter Care Teams Sound Printer Relationship Specialty Start Date End Date Nupur Weir ANP [address] [place] [address] PCP - General Family Medicine 01/16/20 Abel Chavarria RN [address] [place] [phone] Registered Nurse Family Medicine 02/26/25 06/18/25 Margareth Chavarria 02/26/25 06/21/25 documented as of this encounter
--- OUTSIDE RECORDS SUMMARY | 2025-07-02 11:57 | XMS_ITS | Encounter Summary ---
Author Organization [employer] Address [address] [place] [address] Care Team Providers Care Cloth Grader Name Role Phone Nupur Weir Primary Care Provider [phone] Abel Chavarria RN Unavailable [phone] Margareth Chavarria Unavailable Reason for Visit * Reason Onset Date Comments Med Refill 12/22/2024 Encounter Details Date Type Department Care Team (Late st Contact Info) Description 12/22/2024 Telephone [facility] [address] [place], [place] [phone] Nupur Weir ANP [address] [place], [place] [phone] Med Refill Social History Tobacco Use Types [...] 50 MG tablet To be sent to: [facility] - [place], [place] - [address] [place] [address] documented in this encounter Plan of Treatment Upcoming Encounters Date Type Department Care Team ([facility] st Contact Info) Description 07/10/2025 9:45 AM EST Office Visit [facility] [address] [place] [phone] 08/07/2025 9:45 AM EST Office Visit [facility] [address] [place] [address] 08/14/2025 9:15 AM EST Office Visit [address] [address] Nupur Weir ANP [address] [place] [address] 09/28/2025 9:30 AM EST Medication Management [address] [address] Fay Leigh, PharmD [address] [place] [phone] documented as of this encounter Visit Diagnoses Not on filedocumented in this encounter Care Teams Cloth Grader Relationship Specialty Start Date End Date Nupur Weir ANP [address] [place] [phone] PCP - General Family Medicine 01/16/20 Abel Chavarria RN [address] [place] [phone] Registered Nurse Family Medicine 02/26/25 06/18/25 Margareth Chavarria 02/26/25 06/21/25 documented as of this encounter
--- OUTSIDE RECORDS SUMMARY | 2025-07-02 11:57 | XMS_ITS | Encounter Summary ---
Author Organization [employer] Address [address] [place] [address] Care Team Providers Care Watch Manufacturing Supervisor Name Role Phone Nupur Weir Primary Care Provider [phone] Abel Chavarria RN Unavailable [phone] Margareth Chavarria Unavailable Reason for Visit * Reason Comments Med Refill Encounter Details Date Type Department Care Team (Late st Contact Info) Description 06/19/2024 Refill [facility] [address] [place], [place] [phone] Nupur Weir ANP [address] [place] [address] Other specified hypothyroidism Social History Tobacco Use [...] Description 07/10/2025 9:45 AM EST Office Visit [address] [address] 08/07/2025 9:45 AM EST Office Visit [address] [address] 08/14/2025 9:15 AM EST Office Visit [address] [address] Nupur Weir ANP [address] [place] [address] 09/28/2025 9:30 AM EST Medication Management [address] [address] Fay Leigh, PharmD [address] [place] [phone] documented as of this encounter Visit Diagnoses Diagnosis Other specified hypothyroidism documented in this encounter Care Teams Watch Manufacturing Supervisor Relationship Specialty Start Date End Date Nupur Weir ANP [address] [place] [phone] PCP - General Family Medicine 01/16/20 Abel Chavarria, ILENE [address] [place] [address] [place] [address] Registered Nurse Family Medicine 02/26/25 06/18/25 Margareth Chavarria 02/26/25 06/21/25 documented as of this encounter
--- OUTSIDE RECORDS SUMMARY | 2025-07-02 11:58 | XMS_ITS | Encounter Summary ---
Author Organization [employer] Address [address] 7t [place] [address] Care Team Providers Care Medical Specialist Name Role Phone Nupur Weir Primary Care Provider [phone] Abel Chavarria RN Unavailable [phone] Margareth Chavarria Unavailable Reason for Visit * Reason Onset Date Comments Med Refill 01/19/2025 Encounter Details Date Type Department Care Team (Late st Contact Info) Description 01/19/2025 Telephone [facility] 230 [place], [place] [phone] Nupur Weir ANP 230 [place], [place] [phone] Med Refill Social History Tobacco Use Types [...] MG tablet To be sent to: [facility] pharmacy documented in this encounter Plan of Treatment Upcoming Encounters Date Type Department Care Team ([facility] st Contact Info) Description 07/10/2025 9:45 AM EST Office Visit [facility] [address] [place] [address] 08/07/2025 9:45 AM EST Office Visit [address] [address] 08/14/2025 9:15 AM EST Office Visit [address] [address] Nupur Weir ANP [address] [place] [place] [address] 09/28/2025 9:30 AM EST Medication Management [address] [address] Fay Leigh PharmD [address] [place] [address] documented as of this encounter Visit Diagnoses Not on filedocumented in this encounter Care Teams Medical Specialist Relationship Specialty Start Date End Date Nupur Weir ANP [address] [place] [place] [address] PCP - General Family Medicine 01/16/20 Abel Chavarria RN [address] [place] [address] Registered Nurse Family Medicine 02/26/25 06/18/25 Margareth Chavarria 02/26/25 06/21/25 documented as of this encounter
--- OUTSIDE RECORDS SUMMARY | 2025-07-02 11:58 | XMS_ITS | Encounter Summary ---
Author Organization [employer] Address [address] [facility] 7t [place] [address] Care Team Providers Care Hr Operations Advisor Name Role Phone Nupur Weir Primary Care Provider [phone] Abel Chavarria RN Unavailable [phone] Margareth Chavarria Unavailable Reason for Visit * Reason Comments Med Refill Encounter Details Date Type Department Care Team (Late st Contact Info) Description 03/11/2025 Refill [facility] 230 [place], [place] [phone] Nupur Weir ANP 230 [place] [address] Arthralgia, unspecified joint Social History Tobacco Use [...] 07/10/2025 9:45 AM EST Office Visit [address] [address] 08/07/2025 9:45 AM EST Office Visit [address] [address] 08/14/2025 9:15 AM EST Office Visit [address] [address] Nupur Weir ANP 230 [place] [address] 09/28/2025 9:30 AM EST Medication Management [address] [address] Fay Leigh, PharmD 230 [place] [address] documented as of this encounter Visit Diagnoses Diagnosis Arthralgia, unspecified joint documented in this encounter Care Teams Hr Operations Advisor Relationship Specialty Start Date End Date Nupur Weir ANP 230 [place], [place] [phone] PCP - General Family Medicine 01/16/20 Abel Chavarria, ILENE [address] [place] [address] Registered Nurse Family Medicine 02/26/25 06/18/25 Margareth Chavarria 02/26/25 06/21/25 documented as of this encounter
--- OUTSIDE RECORDS SUMMARY | 2025-07-02 11:58 | XMS_ITS | Encounter Summary ---
Author Organization [employer] Address [address] [facility] [address] 7t [place] [address] Care Team Providers Care Acidizer Helper Name Role Phone Nupur Weir Primary Care Provider [phone] Abel Chavarria RN Unavailable [phone] Margareth Chavarria Unavailable Reason for Visit * Reason Onset Date Comments Med Refill 07/26/2024 Encounter Details Date Type Department Care Team (Late st Contact Info) Description 07/26/2024 Telephone [facility] 230 [place], [place] [phone] Nupur Weir ANP 230 [place], [place] [phone] Med Refill Social History Tobacco Use Types [...] 50 MG tablet To be sent to: [id number] - [place], [place] - [address] [facility] documented in this encounter Plan of Treatment Upcoming Encounters Date Type Department Care Team ([facility] st Contact Info) Description 07/10/2025 9:45 AM EST Office Visit [facility] [address] [place] [address] 08/07/2025 9:45 AM EST Office Visit [facility] [address] [place] [address] 08/14/2025 9:15 AM EST Office Visit [address] [address] Nupur Weir ANP [address] [place] [address] 09/28/2025 9:30 AM EST Medication Management [address] [address] Fay Leigh, Elba [address] [place] [address] documented as of this encounter Visit Diagnoses Not on filedocumented in this encounter Care Teams Acidizer Helper Relationship Specialty Start Date End Date Nupru Weir ANP [address] [place] [address] PCP - General Family Medicine 01/16/20 Abel Chavarria RN [address] [place] [address] Registered Nurse Family Medicine 02/26/25 06/18/25 Margareth Chavarria 02/26/25 06/21/25 documented as of this encounter
--- OUTSIDE RECORDS SUMMARY | 2025-07-02 11:58 | XMS_ITS | Encounter Summary ---
Author Organization [employer] Address [address] [facility] [address] 7t [place] [address] Care Team Providers Care Procurement Director Name Role Phone Nupur Weir Primary Care Provider [phone] Abel Chavarria RN Unavailable [phone] Margareth Chavarria Unavailable Encounter Details Date Type Department Care Team (Late st Contact Info) Description 04/05/[address] [facility] 230 [place], [place] [phone] Jaleel Block MD 230 [place], [place] [phone] Right-sided chest pain (Primary Dx); Hemoptysis Social [...] Description 07/10/2025 9:45 AM EST Office Visit [address] [address] 08/07/2025 9:45 AM EST Office Visit [address] [address] 08/14/2025 9:15 AM EST Office Visit [address] [address] Nupur Weir ANP 230 [place] [address] 09/28/2025 9:30 AM EST Medication Management [address] [address] Fay Leigh, PharmD 230 [place] [address] documented as of this encounter Procedures Procedure Name Priority Date/Time Associated Diagnosis Comments CULTURE, URINE, ROUTINE Routine 04/05/2025 12:00 AM EDT Right-sided chest pain documented in this encounter Results * Culture, Urine, Routine (04/05/2025 12:00 AM EDT) Urine Urine specimen obtained by clean catch procedure / Unknown 04/05/2025 04/05/2025 Comment:UACC Narrative [facility] - 04/06/2025 10:53 AM EDT Urine Culture No growth. Specimen Source: Urine clean catch us Generic External Data Provider LAB MICROBIOLOGY - GENERAL ORDERABLES Final Result [facility] [address] [place] [phone] documented in this encounter Visit Diagnoses Diagnosis Right-sided chest pain- Primary Hemoptysis documented in this encounter Additional Health Concerns Assessment Noted Time PHQ-9 Depression Total Score: 7 03/15/20 25 3:29 PM EDT documented as of this encounter Care Teams Procurement Director Relationship Specialty Start Date End Date Nupur Weir ANP 230 [place] [address] PCP - General Family Medicine 01/16/20 Abel Chavarria, ILENE [address] [place] [address] Registered Nurse Family Medicine 02/26/25 06/18/25 Margareth Chavarria 02/26/25 06/21/25 documented as of this encounter
== END 2025-07-02 10:51 | disposition home or self-care (01) ==
LOC: HO.HGS 10:02
PROVIDERS: PCP Nurse Practitioner Primary Care; Visit Provider Surgery
DX: L72.0 Epidermal cyst (principal)
CPT/HCPCS: 11402

== ENCOUNTER 2025-07-02 10:01 | Outpatient (REF) | payer MEDICAID, SELFPAY | END 2025-07-02 10:02 | disposition home or self-care (01) | LOC: HO.LNP 10:01 | PROVIDERS: PCP Nurse Practitioner Primary Care; Visit Provider Surgery | DX: L72.0 Epidermal cyst (principal); Z01.84 Encounter for antibody response examination | CPT/HCPCS: 11402; 88304; 88341; 88342 ==

== ENCOUNTER → 2025-07-17 13:08 | Outpatient (BNVA) | payer MEDICAID, SELFPAY | PROVIDERS: PCP Nurse Practitioner Primary Care | DX: Z48.02 Encounter for removal of sutures (principal) | CPT/HCPCS: 99211 ==

== ENCOUNTER 2025-07-25 09:24 | Outpatient (REF) | payer MEDICAID, SELFPAY ==
--- OUTSIDE RECORDS SUMMARY | 2025-01-03 04:20 | XMS_ITS ---
Author Organization [facility] Address [address] [place] [address] Care Team Providers Care Distributor Operator Name Role Phone MICHAEL YANEZ N.P. Primary Care Provider Fidencio Langley Jr [phone] REASON FOR VISIT dysphagia Encounters Encounter Location Date Provider Diagnosis [facility] [address] [place] [phone] 01/03/2025 Fidencio Vila Jr Plan Of Treatment Next Appt Details Provider Name:Fidencio haider Jr, 07/22/2026 10:00:00 AM, [address] [facility], [address], [place], [address], Progress Notes * TIFFANIE TYLERADOB: 6 (60 yo F)Acc No.[id number]:01/03/2025 Progress Notes Patient: TAY CAPELLAN Provider: Remi Vila MD :1965 A ge:59 Y S ex:Female Date:01/03/2025 Address:[address] [place] Pcp:MICHAEL YANEZ N.P. Subjective: * Chief Complaints: * D ysphagia * The named appointment provid er may or may not be the originator of this progress note, and it is not deemed complete until electronically signed by the appointment provider. Sign off status: Pending * Provider: Remi Vila MD Date: 0 01/03/2025 Generated for Viviane negrete/Shakila/Constantino on: 1 09/24/2024 10:28 AM EST
--- OUTSIDE RECORDS SUMMARY | 2025-07-11 04:40 | XMS_ITS ---
Author Organization [facility] Address [address] [place] [address] Care Team Providers Care Receiving Checker Name Role Phone MICHAEL YANEZ N.P. Primary Care Provider Fidencio Langley Jr [phone] Encounters Encounter Location Date Provider Diagnosis [facility] [address] [place] [phone] 07/11/2025 Fidencio Vila Jr Plan Of Treatment Next Appt Details Provider Name:Fidencio haider Jr, 07/22/2026 10:00:00 AM, [address] [facility], [address], [place], [address], Progress Notes * TIFFANIE TYLERADOB: 6 (60 yo F)Acc No.[id number]:07/11/2025 Progress Notes Patient: TAY CAPELLAN Provider: Remi Vila MD :1965 A ge:60 Y S ex:Female Date:07/11/2025 Address:[address] [id number] Pcp:MICHAEL YANEZ N.P. * The named appointment provid er may or may not be the originator of this progress note, and it is not deemed complete until electronically signed by the appointment provider. Sign off status: Pending * Provider: Remi Vila MD Date: 09/10/2024 Generated for Viviane negrete/Shakila/eTransmitting on: 1 09/24/2024 10:29 AM EST
[2025-07-25 10:03] LABS: Hematocrit 41.0 % (37.0-47.0); Hemoglobin 13.3 g/dl (12.0-16.0); Mean Corpuscular HGB Conc 32.4 g/dl (31.0-35.0); Mean Corpuscular Hemoglobin 28.9 pg (27.0-33.0); Mean Corpuscular Volume 88.9 fL (80.0-98.0); NRBC Abs Auto 0.000 X10*3/uL (0.0-0.012); NRBC Pct Auto 0.0 /100WBC (0.0-0.2); Platelet Count 287 X10*3/uL (160-400); Red Blood Count 4.61 X10*6/uL (4.20-5.50); White Blood Count 5.1 X10*3/uL (4.8-10.8)
--- OUTSIDE RECORDS SUMMARY | 2025-07-25 10:28 | XMS_ITS | Encounter Summary ---
Author Organization [employer] Address [address] [facility] 7t [place] [address] Care Team Providers Care Sawsmith Name Role Phone Nupur Weir Primary Care Provider [phone] Abel Chavarria RN Unavailable [phone] Margareth Chavarria Unavailable Reason for Visit * Reason Comments Med Refill Encounter Details Date Type Department Care Team (Late st Contact Info) Description 02/11/2024 Refill [facility] MED[facility]INE 230 [place], [place] [phone] Marcella Colindres MD 230 [place] [address] Gastritis medicamentosa Social History Tobacco Use Types [...] Care Team (Late st Contact Info) Description 08/07/2025 9:45 AM EST Office Visit [address] [address] 08/14/2025 9:15 AM EST Office Visit [address] [address] Nupur Weir ANP [address] [place] [address] 09/28/2025 9:30 AM EST Medication Management [address] [address] Fay Leigh, PharmD [address] [place] [address] documented as of this encounter Visit Diagnoses Diagnosis Gastritis medicamentosa Other specified gastritis without mention of hemorrhage documented in this encounter Care Teams Sawsmith Relationship Specialty Start Date End Date Nupur Weir ANP [address] [place] [address] PCP - General Family Medicine 01/16/20 Abel Chavarria RN [address] [place] [address] Registered Nurse Family Medicine 02/26/25 06/18/25 Margareth Chavarria 02/26/25 06/21/25 documented as of this encounter
--- OUTSIDE RECORDS SUMMARY | 2025-07-25 10:28 | XMS_ITS | Encounter Summary ---
Author Organization [employer] Address [address] 7t [place] [address] Care Team Providers Care Riding Silks Custodian Name Role Phone Nupur Weir Primary Care Provider [phone] Abel Chavarria RN Unavailable [phone] Margareth Chavarria Unavailable Reason for Visit * Reason Onset Date Comments rs no show appt 11/30/2024 Encounter Details Date Type Department Care Team (Late st Contact Info) Description 11/30/2024 Telephone [facility] 230 [place], [place] [phone] Taty Laura 230 [place], [place] [phone] rs no show appt Social History Tobacco [...] encounter Miscellaneous Notes * Telephone Encounter - Brittneysony Wiley - 11/30/2024 1:58 PM EDT Patient [...] Description 08/07/2025 9:45 AM EST Office Visit [address] [address] 08/14/2025 9:15 AM EST Office Visit [address] [address] Nupur Weir ANP [address] [place] [address] 09/28/2025 9:30 AM EST Medication Management [address] [address] Fay Leigh, PharmD [address] [place] [address] documented as of this encounter Visit Diagnoses Not on filedocumented in this encounter Care Teams Riding Silks Custodian Relationship Specialty Start Date End Date Nupur Weir ANP [address] [place] [address] PCP - General Family Medicine 01/16/20 Abel Chavarria, ILENE [address] [place] [address] Registered Nurse Family Medicine 02/26/25 06/18/25 Margareth Chavarria 02/26/25 06/21/25 documented as of this encounter
--- OUTSIDE RECORDS SUMMARY | 2025-07-25 10:28 | XMS_ITS | Encounter Summary ---
Author Organization [employer] Address [address] [facility] [address] 7t [place] [address] Care Team Providers Care Coat Hanger Shaper Machine Operator Name Role Phone Nupur Weir Primary Care Provider [phone] Abel Chavarria RN Unavailable [phone] Margareth Chavarria Unavailable Reason for Visit * Reason Comments Med Refill Encounter Details Date Type Department Care Team (Late st Contact Info) Description 09/19/2023 Refill [facility] 230 [place], [place] [phone] Nupur Weir ANP 230 [place] [address] Constipation, unspecified constipation type Social History Tobacco [...] Description 08/07/2025 9:45 AM EST Office Visit [address] [address] 08/14/2025 9:15 AM EST Office Visit [address] [address] Nupur Weir ANP [address] [place] [address] 09/28/2025 9:30 AM EST Medication Management [address] [address] Fay Leigh, PharmD [address] [place] [address] documented as of this encounter Visit Diagnoses Diagnosis Constipation, unspecified constipation type documented in this encounter Care Teams Coat Hanger Shaper Machine Operator Relationship Specialty Start Date End Date Nupur Weir ANP [address] [place] [address] PCP - General Family Medicine 01/16/20 Abel Chavarria RN [address] [place] [address] Registered Nurse Family Medicine 02/26/25 06/18/25 Margareth Chavarria 02/26/25 06/21/25 documented as of this encounter
--- OUTSIDE RECORDS SUMMARY | 2025-07-25 10:28 | XMS_ITS | Encounter Summary ---
Author Organization [employer] Address [address] 7t [place] [address] Care Team Providers Care Integrity Specialist Name Role Phone Nupur Weir Primary Care Provider [phone] Abel Chavarria RN Unavailable [phone] Margareth Chavarria Unavailable Reason for Visit * Reason Comments Med Refill Encounter Details Date Type Department Care Team (Late st Contact Info) Description 02/11/2024 Refill [facility] MED[facility]INE 230 [place], [place] [phone] Nupur Weir ANP 230 [place] [address] Social History Tobacco Use Types Packs/Day Years [...] Description 08/07/2025 9:45 AM EST Office Visit [address] [address] 08/14/2025 9:15 AM EST Office Visit [address] [address] Nupur Weir ANP [address] [place] [address] 09/28/2025 9:30 AM EST Medication Management [address] [address] Fay Leigh, PharmD [address] [place] [address] documented as of this encounter Visit Diagnoses Not on filedocumented in this encounter Care Teams Integrity Specialist Relationship Specialty Start Date End Date Nupur Weir ANP [address] [place] [address] PCP - General Family Medicine 01/16/20 Abel Chavarria RN [address] [place] [address] Registered Nurse Family Medicine 02/26/25 06/18/25 Margareth Chavarria 02/26/25 06/21/25 documented as of this encounter
--- OUTSIDE RECORDS SUMMARY | 2025-07-25 10:28 | XMS_ITS | Encounter Summary ---
Author Organization [employer] Address [address] [facility] 7t [place] [address] Care Team Providers Care Compliance Review Officer Name Role Phone Nupur Weir Primary Care Provider [phone] Abel Chavarria RN Unavailable [phone] Margareth Chavarria Unavailable Reason for Visit * Reason Onset Date Comments Med Refill 10/01/2023 Encounter Details Date Type Department Care Team (Late st Contact Info) Description 10/01/2023 Telephone [facility] MED[facility]INE 230 [place], [place] [phone] Nupur Weir ANP 230 [place], [place] [phone] Med Refill Social History Tobacco Use Types [...] Base) MCG/ACT inhaler To be sent to: [id number] [place], [place] - [address] [place] [address] documented in this encounter Plan of Treatment Upcoming Encounters Date Type Department Care Team (Late st Contact Info) Description 08/07/2025 9:45 AM EST Office Visit [facility] [address] [place] [address] 08/14/2025 9:15 AM EST Office Visit [facility] [address] [place] [address] Nupur Weir, ANP 230 [place] [address] 09/28/2025 9:30 AM EST Medication Management [facility] [address] [place] [address] Fay Leigh, PharmD [address] [place] [address] documented as of this encounter Visit Diagnoses Not on filedocumented in this encounter Care Teams Compliance Review Officer Relationship Specialty Start Date End Date Nupur Weir ANP 230 [place] [address] PCP - General Family Medicine 01/16/20 Abel Chavarria RN [address] [place] [address] Registered Nurse Family Medicine 02/26/25 06/18/25 Margareth Chavarria 02/26/25 06/21/25 documented as of this encounter
--- OUTSIDE RECORDS SUMMARY | 2025-07-25 10:28 | XMS_ITS | Encounter Summary ---
Author Organization [employer] Address [address] [facility] [address] [address] 7t [place] [address] Care Team Providers Care Rf Design Engineer Name Role Phone Nupur Weir Primary Care Provider [phone] Abel Chavarria RN Unavailable [phone] Margareth Chavarria Unavailable Reason for Visit * Reason Comments Med Refill Encounter Details Date Type Department Care Team (Late st Contact Info) Description 11/07/2024 Refill [facility] [address] [place], [place] [phone] Nupur Weir ANP 230 [place] [address] Primary hypertension; Iron deficiency anemia, unspecified iron [...] Description 08/07/2025 9:45 AM EST Office Visit [address] [address] 08/14/2025 9:15 AM EST Office Visit [address] [address] Nupur Weir, BATOOL [address] [place] [address] 09/28/2025 9:30 AM EST Medication Management [address] [address] Fay Leigh, PharmD [address] [place] [address] documented as of this encounter Visit Diagnoses Diagnosis Primary hypertension Unspecified essential hypertension Iron deficiency anemia, unspecified iron deficiency anemia type documented in this encounter Care Teams Rf Design Engineer Relationship Specialty Start Date End Date Nupur Weir ANP 230 [place] [address] PCP - General Family Medicine 01/16/20 Abel Chavarria RN [address] [place] [address] Registered Nurse Family Medicine 02/26/25 06/18/25 Margareth Chavarria 02/26/25 06/21/25 documented as of this encounter
--- OUTSIDE RECORDS SUMMARY | 2025-07-25 10:28 | XMS_ITS | Encounter Summary ---
Author Organization [employer] Address [address] [facility] 7t [place] [address] Care Team Providers Care Tyre Builder Name Role Phone Nupur Weir Primary Care Provider [phone] Abel Chavarria RN Unavailable [phone] Margareth Chavarria Unavailable Reason for Visit * Reason Comments Med Refill Encounter Details Date Type Department Care Team (Late st Contact Info) Description 01/09/2023 Refill [facility] MED[facility] 230 [place], [place] [phone] Nupur Weir ANP 230 [place] [address] Arthralgia, unspecified joint; Other specified hypothyroidism Social [...] Upcoming Encounters Date Type Department Care Team ([facility] st Contact Info) Description 08/07/2025 9:45 AM EST Office Visit [address] [address] 08/14/2025 9:15 AM EST Office Visit [address] [address] Nupur Weir ANP [address] [place] [address] 09/28/2025 9:30 AM EST Medication Management [address] [address] Fay Leigh PharmD [address] [place] [address] documented as of this encounter Visit Diagnoses Diagnosis Arthralgia, unspecified joint Other specified hypothyroidism documented in this encounter Care Teams Tyre Builder Relationship Specialty Start Date End Date Nupur Weir ANP [address] [place] [address] PCP - General Family Medicine 01/16/20 Abel Chavarria RN [address] [place] [address] Registered Nurse Family Medicine 02/26/25 06/18/25 Margareth Chavarria 02/26/25 06/21/25 documented as of this encounter
--- OUTSIDE RECORDS SUMMARY | 2025-07-25 10:28 | XMS_ITS | Encounter Summary ---
Author Organization [employer] Address [address] 7t [place] [address] Care Team Providers Care Sand Cleaning Machine Operator Name Role Phone Nupur Weir Primary Care Provider [phone] Abel Chavarria RN Unavailable [phone] Margareth Chavarria Unavailable Encounter Details Date Type Department Care Team (Late st Contact Info) Description 05/25/2025 Results Follow-Up [facility] 230 [place] [address] Nupur Weir ANP 230 [place] [address] US VENOUS DUPLEX LE RT, US Extremity [...] si tiene preguntas. Take care, Cu??Nupur arambula GLASS VIAL FILLER documented in this encounter Plan of Treatment Upcoming Encounters Date Type Department Care Team (Late st Contact Info) Description 08/07/2025 9:45 AM EST Office Visit [facility] [address] [place] [address] 08/14/2025 9:15 AM EST Office Visit [facility] [address] [place] [address] Nupur Weir ANP [address] [place] [address] [phone] 09/28/2025 9:30 AM EST Medication Management [facility] [address] [place] [address] [phone] Fay Leigh, MayoD [address] [place] [phone] documented as of this encounter Visit Diagnoses Not on filedocumented in this encounter Additional Health Concerns Assessment Noted Time PHQ-9 Depression Total Score: 17 025 10:08 AM EDT documented as of this encounter Care Teams Sand Cleaning Machine Operator Relationship Specialty Start Date End Date Nupur Weir ANP [address] [place] [address] [phone] PCP - General Family Medicine 01/16/20 Abel Chavarria RN [address] [place] [address] Registered Nurse Family Medicine 02/26/25 06/18/25 Margareth Chavarria 02/26/25 06/21/25 documented as of this encounter
--- OUTSIDE RECORDS SUMMARY | 2025-07-25 10:28 | XMS_ITS | Encounter Summary ---
Author Organization [employer] Address [address] [facility] [place] [address] Care Team Providers Care Nursing Program Manager Name Role Phone Nupur Weir Primary Care Provider Abel Chavarria RN Unavailable [phone] Margareth Chavarria Unavailable Reason for Visit * Reason Onset Date Comments Appointment Request 11/30/2024 Encounter Details Date Type Department Care Team (Late st Contact Info) Description 11/30/2024 Telephone [facility] MEDICINE [address] [place], [place] [phone] Nupur Weir ANP [address] [place], [place] [phone] Appointment Request Social History Tobacco Use Types [...] 1 12/01/2024 11:08 AM EDT Kassy Ramsey RN Feeling afraid as if somethi ng awful might happen 0 12/01/2024 11:08 AM EDT Kassy Ramsey RN ROSALBA-7 Total Score 6 12/01/2024 11:08 AM EDT Kassy Ramsey RN documented as of this encounter Miscellaneous Notes * Telephone Encounter - Chanel Whyte - 11/30/2024 11:07 AM EDT Tc from pt requesting to r/s [employer] appt. [facility] has another appt around the same time at sleep medicine and pt informs takes bus and believes will not be able to make it on time. Would like to r/s for Wednesday. documented in this encounter Plan of Treatment Upcoming Encounters Date Type Department Care Team (Late st Contact Info) Description 08/07/2025 9:45 AM EST Office Visit [address] [address] 08/14/2025 9:15 AM EST Office Visit [address] [address] Nupur Weir ANP [address] [place] [address] 09/28/2025 9:30 AM EST Medication Management [address] [address] Fay Leigh, PharmD [address] [place] [address] documented as of this encounter Visit Diagnoses Not on filedocumented in this encounter Care Teams Nursing Program Manager Relationship Specialty Start Date End Date Nupur Weir ANP [address] [place] [phone] PCP - General Family Medicine 01/16/20 Abel Chavarria, ILENE [address] [place] [phone] Registered Nurse Family Medicine 02/26/25 06/18/25 Margareth Chavarria 02/26/25 06/21/25 documented as of this encounter
--- OUTSIDE RECORDS SUMMARY | 2025-07-25 10:28 | XMS_ITS | Encounter Summary ---
Author Organization [employer] Address [address] [facility] [address] 7[address] [place] [address] Care Team Providers Care Interventional Cardiologist Name Role Phone Nupur Weir Primary Care Provider Margareth Chavarria Unavailable Reason for Visit * Reason Comments Med Refill Encounter Details Date Type Department Care Team (Late st Contact Info) Description 06/19/[address] [facility] MEDICINE [address] [place] [address] Nupur Weir ANP [address] [place] [address] Arthralgia, unspecified joint Social History Tobacco Use [...] Description 08/07/2025 9:45 AM EST Office Visit [address] [address] 08/14/2025 9:15 AM EST Office Visit [address] [address] Nupur Weir, BATOOL [address] [place] [address] 09/28/2025 9:30 AM EST Medication Management [address] [address] Fay Leigh, MayoD [address] [place] [address] documented as of this encounter Visit Diagnoses Diagnosis Arthralgia, unspecified joint documented in this encounter Additional Health Concerns Assessment Noted Time PHQ-9 Depression Total Score: 17 08/ 025 10:08 AM EDT documented as of this encounter Care Teams Interventional Cardiologist Relationship Specialty Start Date End Date Nupur Weir ANP [address] [place] [address] PCP - General Family Medicine 01/16/20 Margareth Chavarria 02/26/25 06/21/25 documented as of this encounter
--- OUTSIDE RECORDS SUMMARY | 2025-07-25 10:28 | XMS_ITS | Encounter Summary ---
Author Organization [employer] Address [address] [facility] [address] [place] [address] Care Team Providers Care Manager Research And Development Name Role Phone Nupur Weir Primary Care Provider [phone] Abel Chavarria RN Unavailable Margareth Chavarria Unavailable Reason for Visit * Reason Onset Date Comments Medication Question 06/18/2025 Encounter Details Date Type Department Care Team (Late st Contact Info) Description 06/18/2025 Telephone [facility] MEDICINE [address] [place], [place] [phone] Nupur Weir ANP [address] [place], [place] [phone] Medication Question Social History Tobacco Use Types [...] Description 08/07/2025 9:45 AM EST Office Visit [facility] [address] [place] [address] 08/14/2025 9:15 AM EST Office Visit [facility] [address] [place] [address] Nupur Weir, ANP [address] [place] [address] [place] [address] 09/28/2025 9:30 AM EST Medication Management [facility] [address] [place], [place] [phone] Fay Leigh, El[place] [address] [place] [address] documented as of this encounter Visit Diagnoses Not on filedocumented in this encounter Additional Health Concerns Assessment Noted Time PHQ-9 Depression Total Score: 17 025 10:08 AM EDT documented as of this encounter Care Teams Manager Research And Development Relationship Specialty Start Date End Date Nupur Weir ANP [address] [place] [address] PCP - General Family Medicine 01/16/20 Abel Chavarria, ILENE [address] [place] [address] Registered Nurse Family Medicine 02/26/25 06/18/25 Margareth Chavarria 02/26/25 06/21/25 documented as of this encounter
--- OUTSIDE RECORDS SUMMARY | 2025-07-25 10:29 | XMS_ITS | Encounter Summary ---
Author Organization [employer] Address [address] [facility] [address] [place] [address] Care Team Providers Care Hose Seamer Name Role Phone Nupur Weir Primary Care Provider [phone] Abel Chavarria RN Unavailable [phone] Margareth Chavarria Unavailable Reason for Visit * Reason Comments Med Refill Encounter Details Date Type Department Care Team (Late st Contact Info) Description 11/11/2023 Refill [facility] MEDICINE [address] [place], [place] [phone] Nupur Weir ANP [address] [place] [address] Social History Tobacco Use Types Packs/Day Years [...] 08/07/2025 9:45 AM EST Office Visit [address] [address] 08/14/2025 9:15 AM EST Office Visit [address] [address] Nupur Weir ANP [address] [place] [address] 09/28/2025 9:30 AM EST Medication Management [address] [address] Fay Leigh, PharmD [address] [place] [address] documented as of this encounter Visit Diagnoses Not on filedocumented in this encounter Care Teams Hose Seamer Relationship Specialty Start Date End Date Nupur Weir ANP [address] [place] [address] PCP - General Family Medicine 01/16/20 Abel Chavarria RN [address] [place] [address] Registered Nurse Family Medicine 02/26/25 06/18/25 Margareth Chavarria 02/26/25 06/21/25 documented as of this encounter
--- OUTSIDE RECORDS SUMMARY | 2025-07-25 10:29 | XMS_ITS | Clinical Summary ---
Author Organization [employer] Address [address] [place] [address] Care Team Providers Care Hat Lacer Name Role Phone Michael Yanez BATOOL Primary Care Provider [phone] Allergies Active Allergy Reactions Criticality Noted Date [...] Intertrigo Apply twice daily for 14-28d to [facility] area 30 g 025 Active Cholecalciferol [...] for 10 days. 10 tablet 025 Active tiZANidine (Zanaflex) 2 MG tablet Take 1 tablet (2 mg) by mouth every 8 (eight) hours if needed (pain) for up to 10 days. 30 tablet 025 Active lidocaine (Lidoderm) 5 % patch APPLY 1 PATCH TOPICALLY TO THE SKIN DAILY. LEAVE ON MOST PAINFUL AREA FOR UP TO 12 HOURS 30 patch 1 025 Active ferrous sulfate (Fe Tabs) 325 [...] NOT EFFECTIVE. 1 mL 2 025 Active fluticasone (Flonase) 50 MCG/ACT nasal spray SPRAY 2 SPRAYS IN EACH NOSTRIL ONCE DAILY 16 g 1 025 Active ibuprofen 400 MG tablet Take 1 tablet (400 mg) by mouth every 6 (six) hours if needed for moderate pain or fever for up to 30 doses. 30 tablet 025 Active Ascorbic Acid (vitamin C) 500 MG tabletIndications :Iron deficiency anemia, unspecified iron deficiency anemia type TAKE 1 TABLET BY MOUTH EVERY EVENING WITH IRON supplement 90 tablet 025 Active Mometasone Furoate (Asmanex HFA) 100 MCG/ACT aerosol INHALE 1 PUFF BY MOUTH EVERY 12 HOURS RINSE MOUTH AFTER USING. 13 g 1 025 Active losartan (Cozaar) 50 MG tabletIndications :Primary hypertension TAKE 1 TABLET BY MOUTH EVERY MORNING 90 tablet 025 Active meloxicam (Mobic) 15 MG tablet TAKE 1 TABLET BY MOUTH ONCE DAILY 30 tablet 10/22/2 025 Active gabapentin (Neurontin) 100 MG capsuleIndication s:Arthralgia, unspecified joint TAKE 1 CAPSULE BY MOUTH AT NOON, EVENING, AND BEDTIME 90 capsule 2 Active traMADol (Ultram) 50 MG tabletIndications :Back pain, unspecified back location, unspecified back pain laterality, unspecified chronicity Take 1 tablet (50 mg) by mouth every 8 (eight) hours if needed for severe pain for up to 28 days. 84 tablet 07/11/20 25 11:51 AM EST 025 2024 Active gabapentin (Neurontin) 100 MG capsuleIndication s:Arthralgia, unspecified joint TAKE 1 CAPSULE BY MOUTH AT NOON, EVENING, AND BEDTIME 90 capsule 2 025 2024 Discontinued(R eorder (will not trigger notification to Pharmacy)) acetaminophen (Tylenol 8 Hour) 650 MG ER tablet Take 1 tablet (650 mg) by mouth every 8 (eight) hours if needed for mild pain. Do not crush, chew, or split. 40 tablet 025 2024 traMADol (Ultram) 50 MG tabletIndications :Back pain, unspecified back location, unspecified back pain laterality, unspecified chronicity Take 1 tablet (50 mg) by mouth every 8 (eight) hours if needed for severe pain for up to 14 days. Do not start before June 21, 2025. 42 tablet 025 2024 Discontinued(R eorder (will [...] Q8H PRN Indication: arthralgia, lumbar spondylosis Last [employer]PERATOR [employer] Agreement: 12/01/24 Process Eng tier 2 q 3 mo Assessment & Plan (07/10/2025 1:45 PM EST): Timeline: - 05/08/25: Group - utox/pill count as expected - 06/12/25: Group - utox/pill count as expected - 07/10/25: Group - utox/pill count as expected Assessment & Plan (06/12/2025 12:47 PM EDT): [...] 03/10/2012 Lumbar spondylosis 03/10/2012 Assessment & Plan (07/10/2025 1:45 PM EST): Chronic low back pain, XR Lumbar spine Aug 2024 demonstrates moderate degenerative changes in the lumbar spine most pronounced at L5-S1 Good engagement and participation with Group Medical Visit model Encouraged multifactorial approach to pain control including pharm and non-pharm modalities Pill count and UTOX as expected Assessment & Plan (06/12/2025 12:48 PM EDT): [...] Pill count as expected. UTOX unexpected. See corrections identification technician. Send out MTD and BZO confirmatory. Possible [...] organization. Date Type Department Care Team Description 07/10/2025 9:45 AM EST Office Visit [facility] MEDICINE [address], [place] [phone] Anushka Gunter FNP Lumbar spondylosis (Primary Dx); Long-term current use of opiate analgesic 07/10/2025 Refill [facility] MED & PEDS [address] [place], [place] [phone] Michael Yanez ANP Back pain, unspecified back location, unspecified back pain laterality, unspecified chronicity 07/10/2025 Refill [facility] MED & PEDS [address] [place] [address] Kassy Ramsey RN Back pain, unspecified back location, unspecified back pain laterality, unspecified chronicity 07/10/2025 Travel 07/02/2025 Orders Only GENERIC EXTERNAL DATA DEPARTMENT Provider, Generic External Data 07/02/2025 Refill [facility] MEDICINE [address] [place] [phone] Michael Yanez ANP Arthralgia, unspecified joint 06/21/2025 Patient Outreach [facility] MEDICINE [address] [place] [phone] Michael Yanez ANP Care Coordination (C3/CHW KHUSHBU Edwards- Last Follow up-Graduated) 06/19/2025 Refill [facility] MEDICINE [address] [place] [phone] Michael Yanez ANP Arthralgia, unspecified joint 06/19/2025 Refill [facility] MEDICINE [address] [place] [phone] Jill Rivero MD Primary hypertension 06/18/2025 Refill [facility] MED & PEDS [address] [place] [address] Kassy Ramsey RN Back pain, unspecified back location, unspecified back pain laterality, unspecified chronicity 06/18/2025 Telephone [facility] MEDICINE [address] [place] [phone] Michael Yanez ANP Medication Question 06/18/2025 Patient Outreach [facility] MEDICINE [address] [place] [phone] Michael Yanez ANP Care Management (C3- f/u call) 06/17/2025 Refill [facility] WALK-IN CENTER [address] [place] [address] Michael Yanez ANP 06/13/2025 Orders Only GENERIC EXTERNAL DATA DEPARTMENT Provider, Generic External Data 06/12/2025 9:45 AM EDT Office Visit [facility] MEDICINE [address] [place] [phone] Anushka Gunter, KYLER Lumbar spondylosis (Primary Dx); Long-term current use of opiate analgesic 06/12/[address] [address] Chika Longo RN Back pain, unspecified back location, unspecified back pain laterality, unspecified chronicity (Primary Dx) 06/12/2025 Travel 06/07/2025 Patient Outreach [address] [address] Michael Yanez ANP Care Management (C3CM- f/u call lvm) 06/06/2025 Patient Outreach [address] [address] Michael Yanez ANP Care Coordination (C3/W KHUSHBU Edwards-Follow up) 06/05/2025 9:00 AM EDT Office Visit [facility] WALKIN [address] [address] Jaleel Block MD Wound infection (Primary Dx) 06/05/[address] [address] Michael Yanez ANP Iron deficiency anemia, unspecified iron deficiency anemia type 05/31/[address] [address] Michael Yanez ANP dec recall 05/29/2025 Patient Outreach [address] [address] Michael Yanez ANP Care Management (C3CM- f/u call) 05/25/2025 10:00 AM EDT Office Visit [facility] [address] [address] Cecilia Johnson DO Pain and swelling of right lower leg (Primary Dx); Subcutaneous mass; Long-term current use of opiate analgesic; Back pain, unspecified back location, unspecified back pain laterality, unspecified chronicity 05/25/2025 Results Follow-Up [address] [address] Michael Yanez ANP US VENOUS DUPLEX LE RT, US Extremity Non Vascular Complete Joint Right 05/25/2025 Orders Only [address] [address] Cecilia Johnson DO 05/25/2025 Travel 05/25/2025 Refill [facility] WALK-IN CENTER [address] [place] [address] Marcella Colindres MD 05/25/2025 Refill [facility] WALK[facility]IN CENTER [address] [place] [address] Jaleel Block MD 05/23/2025 Patient Outreach [address] [address] Michael Yanez ANP Care Coordination (C3/W KHUSHBU Edwards- follow up call) 05/23/[address] [address] Michael Yanez ANP Migraine with aura and without status migrainosus, not intractable 05/15/2025 9:15 AM EDT Office Visit [address] [address] Michael Yanez ANP Cat bite, subsequent encounter (Primary Dx); Pure hypercholesterolemia ; Primary hypertension; Hypothyroidism, unspecified type 05/15/2025 Patient Outreach [address] [address] Michael Yanez ANP Care Management (C3- f/u call) 05/15/2025 Travel 05/14/[address] [address] Michael Yanez ANP chart prep 05/14/[address] [phone] Julianne Anne RN AB Status Check 05/14/2025 Patient Outreach [address] [phone] Michael Yanez ANP 05/13/2025 Orders Only GENERIC EXTERNAL DATA DEPARTMENT Provider, Generic External Data 05/11/2025 Patient Outreach [address] [phone] Michael Yanez ANP 05/09/2025 5:40 PM EDT Office Visit [facility] [address] [address] Yanez, Michael, ANP Cat bite, subsequent encounter (Primary Dx); Puncture wound of calf, right, subsequent encounter 05/09/2025 Travel 05/08/2025 9:45 AM EDT Office Visit [address] [address] Anushka Gunter, KYLRE Lumbar spondylosis (Primary Dx); Long-term current use of opiate analgesic 05/08/2025 Refill [facility] P[facility]S [address] [place] [address] Kassy Ramsey RN Long-term current use of opiate analgesic; Back pain, unspecified back location, unspecified back pain laterality, unspecified chronicity 05/08/2025 Travel 05/07/2025 Patient Outreach [address] [address] Michael Yanez ANP Care Coordination (Aimee/KHUSHBU Jurado- Appt reminder/PT-1 update) 05/06/2025 Results Follow-Up [facility] WALK-IN CENTER [address] [place] [address] Jaleel Block MD CTA Chest PE Protocal 05/03/2025 Patient Outreach [address] [address] Michael Yanez ANP Care Coordination (KHUSHBU Dominguez-Follow up/PT-1) 05/03/2025 Patient Outreach [address] [address] Michael Yanez ANP Care Management ([facility]- f/u call) 05/01/2025 Orders Only [facility] WALK-IN CENTER [address] [place] [address] Jaleel Block MD 04/25/2025 Patient Outreach [address] [address] Michael Yanez ANP from Last 3 Months Immunizations Immunization Administration [...] kg (141 lb 9.6 oz) 06/05/2025 8:37 AM EDT Height 165.1 cm (5' 5 ) 05/15/2025 8:57 AM EDT Body Mass Index 23.56 05/15/2025 8:57 AM EDT Plan of Treatment Upcoming Encounters Date Type Department Care Team (Late st Contact Info) Description 08/07/2025 9:45 AM EST Office Visit [address] [address] 08/14/2025 9:15 AM EST Office Visit [address] [address] Michael Yanez ANP [address] [place] [address] 09/28/2025 9:30 AM EST Medication Management [address] [address] Fay Leigh, PharmD [address] [place] [address] Health Maintenance Due Date Last Done Comments CT Colonography 1966 FIT DNA/Cologuard 1965 FIT 1966 FOBT 1965 Sigmoidoscopy 1965 Pap Smear 1987 HPV/Cotest 01/27/1996 RSV Patients and Patients Aged 60 years or older (1 - Risk 50-74 years 1-dose series) 01/27/2016 Dental Oral Exam 11/06/2024 05/08/2024, 03/20/2022 Dental Prophylaxis 11/06/2024 05/08/2024, 03/20/2022 Dental X-Ray: Full Mouth 03/21/2025 03/20/2022, 02/28 Influenza Vaccine (#1) 2025 , 09/01/2022, 08/19/2021, Additional history exists Dental X-Ray: Bitewings 05/09/2025 05/08/2024 Hepatitis A Vaccines (2 of 2 - Risk 2-dose series) 07/15/2025 01/12/2025 Depression Monitoring 10/13/2025 04/12/2025, 025 Disability Screening 12/15/2025 12/15/2024 Mammogram 02/05/2026 02/05/2025, 04/2024, 11/09/2018 SDOH Screening 02/26/2026 02/26/2025 Alcohol/Substance Use Screening 03/15/2026 03/15/2025 Tobacco Screening 06/05/2026 06/05/2025 Lipid Panel 08/25/2029 08/25/2024, 12/08/2021 Colonoscopy 12/28/2033 12/29/2023, 04/2021, 07/01/2021 Colorectal Cancer Screening 12/28/2033 DTaP/Tdap/Td Vaccines (7 - Td or Tdap) 05/09/2035 05/09/2025, 07/12/2020, 08/17/2017, Additional history exists Hepatitis B Vaccines Completed 02/15/2008, 10/26/2007, 09/07/2007 [...] Comments POCT MERY-14 URINE DRUG SCREEN Routine 07/10/2025 10:35 AM EST Lumbar spondylosis GROSS AND MICROSCOPIC LEVEL 3 Routine 07/02/2025 10:53 AM EST GROSS AND MICROSCOPIC LEVEL 3 Routine 06/13/2025 [...] PE PROTOCAL Routine 05/01/2025 2:33 PM EDT BI MAMMOGRAM SCREENING TOMOSYNTHESIS BILATERAL [...] Results * POCT MERY-14 Urine Drug Screen (07/10/2025 10:35 AM EST) Only the most recent of3 resultswithin the [...] obtained by clean catch procedure / Unknown 07/10/2025 10:35 AM EST Narrative Kassy Ramsey, RN - 07/10/2025 10:35 AM EST .UTOX cup Lot#[id number] Exp. 07/30/26 Internal Pass Control [facility] POINT OF CARE TEST ENTER/EDIT OR DERABLES Final Result * Gross and Microscopic Level 3 (07/02/2025 10:53 AM EST) Only the most recent of2 resultswithin the time period is included. 07/02/2025 10:5 3 AM EST 07/03/2025 7:40 AM EST Narrative [facility] - 07/11/2025 11:20 AM EST ----- ------- Name: Gladys MelissaLaura Age/Sex: 60/F : 1965 Unit#: [id number] Attend Dr: Raffy Ramirez MD Re07/02/25 Status: DEP REF Location: .LNP Disch: ----- ------- SPEC : [id number] RECD: 07/03/25 STATUS: CIELO PRICE NUM: [id number] ANGELA: 07/02/25-[address] [facility] [address]: Raffy Ramirez MD ENTERED: 07/03/25 SP TYPE: Surgical OTHR DR: MICHAEL YANEZ NP ORDERED: Gross Micro L3, Cytokeratin, S 100, IHC, Add. immunos/3, Actin, CD34 COMMENTS: Block A sent to [facility] for HHV8 D240 IHC's on 07/05/25. Diagnosis Skin, right lower leg cyst, excision: -Benign skin with spindled dermis and hemorrhage, consistent with hypertrophic scar. Comment: No epidermal inclusion, other cyst, keratin debris, or vascular lesion is identified. Clinical correlation is necessary. Clinical History Epidermal cyst right lower leg Microscopic Description Multiple microscopic sections examined. Sections show dermal spindled cells with extensive red blood cell extravasation. The spindle cells are weakly positive for actin, and negative for CD34, S100, D2-40, HHV8, and pankeratin. Controls stain appropriately. Material Received Epidermal cyst right lower leg Gross Description Received in formalin is an unoriented 1.2 x 1.0 cm portion of brown skin with the attached firm subcutaneous soft tissue. The specimen is inked blue, bisected to reveal a dense fibrous cut surface without intact cystic structure identified. The specimen is entirely submitted in cassette A1. (DTL) This case was reviewed intradepartmentally. Special studies ordered and performed at [facility]: Immunostains for pankeratin, muscle specific actin, CD34 and S100 on A1. Special studies ordered and performed at [facility]: Immunostains for D2-40 and HHV8 on A1. IHC S/NG Disclaimer NOTE: Unless otherwise stated, all tissue is formalin-fixed and paraffin-embedded. Some or all of the immunohistochemical tests reported herein may have been developed and their performance characteristics determined by [facility]. They have not been cleared or approved by the U.S. Food and Drug Administration (FDA). However, the FDA has determined that such clearance or approval is not necessary. This laboratory is CONTINUED ON NEXT PAGE ----- ------- Name: Laura Gonzalez Age/Sex: 60/F : 1965 Unit#: [id number] Attend Dr: Raffy Ramirez MD Re07/02/25 Status: DEP REF Location: [facility] Disch: ----- ------- SPEC : [id number] RECD: 07/03/25 STATUS: CIELO PRICE NUM: [id number] ANGELA: 07/02/[address] [facility] [address]: Raffy Ramirez MD ENTERED: 07/03/25 SP TYPE: Surgical OTHR DR: MICHAEL YANEZ NP ORDERED: Gross Micro L3, Cytokeratin, S 100, IHC, Add. immunos/3, Actin, CD34 COMMENTS: Block A sent to [facility] for HHV8 D240 IHC's on 07/05/25. IHC S/NG Disclaimer (Continued) certified under the Clinical Laboratory Improvement Amendments of 1988 (CLIA) as qualified to perform high complexity clinical laboratory testing. Copies To: Raffy Ramirez MD [facility] [address] [place] [address] MICHAEL YANEZ NP [address] [address] ----- ------- Signed (signature on file) Monse [place] 07/11/25 1120 ----- ------- END OF REPORT us Generic External Data Provider LAB CYTOLOGY MARIBETHE REINALDO Final Result Performing Organization Address City/State/[facility] Co de Phone Number [facility] [address] [place] [phone] * US Extremity Non Vascular Complete Joint Right (05/25/2025 4:17 PM EDT) Anatomical Region Laterality Modality Ultrasound 05/25/2025 4:17 PM EDT Narrative 05/25/2025 5:12 PM EDT [address] [address] Ultrasound Report Signed Patient: Laura Gonzalez MR#: [id number] : 1965 Acct:[id number] Age/Sex: 60 / F ADM Date: 05/25/25 Loc: . Attending Dr: Cecilia Johnson DO Ordering Physician: Cecilia Johnson DO Date of Service: 05/25/25 Procedure(s): US Extremity Nonvas Comp JT RT Accession Number(s): [id number] cc: Cecilia Johnson DO; MICHAEL YANEZ NP [...] 05/25/25 1709 DD/ 1617 TD/TT: 05/25/25 1620 Bale Opener: Procedure Note Donotuseinterpreter, Image - 05/25/2025 [place] [address] Ultrasound Report Signed Patient: Aleksandar Gonzalez#: [id number] : 1965Acct:[id number] Age/Sex: 60 / FADM Date: 05/25/25 Loc: HO.US Attending Dr: Cecilia Johnson DO Ordering Physician: Cecilia Johnson DO Date of Service: 05/25/25 Procedure(s): US Extremity Nonvas Comp JT RT Accession Number(s): [id number] cc: Cecilia Johnson DO; MICHAEL YANEZ NP [...] 05/25/25 1709 DD/ 1617 TD/TT: 05/25/25 1620 Bale Opener: us Cecilia Johnson DO IMG US PROCEDURES Final Resu lt * US VENOUS DUPLEX LE RT (05/25/2025 4:01 PM EDT) Anatomical Region Laterality Modality Abdomen Ultrasound 05/25/2025 4:01 PM EDT Narrative 05/25/2025 4:44 PM EDT [place] [address] Ultrasound Report Signed Patient: Laura Gonzalez MR#: [id number] : 1965 Acct:[id number] Age/Sex: 60 / F ADM Date: 05/25/25 Loc: .US Attending Dr: Cecilia Johnson DO Ordering Physician: Cecilia Johnson DO Date of Service: 05/25/25 Procedure(s): US venous duplex LE RT Accession Number(s): [id number] cc: Cecilia Johnson DO; MICHAEL YANEZ NP [...] by Gallo Schuster MD in OV> 05/25/25 164 DD/ 160 TD/TT: 05/25/251614 Bale Opener: Procedure Note Miguelinater, Frances - 05/25/[address] [address] Ultrasound Report Signed Patient: Aleksandar Gonzalez#: [id number] : 1965Acct:[id number] Age/Sex: 60 / FADM Date: 05/25/25 Loc: HO.US Attending Dr: Cecilia Johnson DO Ordering Physician: Cecilia Johnson DO Date of Service: 05/25/25 Procedure(s): US venous duplex LE RT Accession Number(s): [id number] cc: Cecilia Johnson DO; MICHAEL YANEZ NP [...] by Gallo Schuster MD in OV> 05/25/25 164 DD/ 160 TD/TT: 05/25/251614 Bale Opener: us Cecilia Johnson DO IMG US PROCEDURES Final Resu lt * Hold Red (05/13/2025 9:41 AM EDT) Hold Red See Note [facility] Comment:Specimen held untest ed for 24 hours; Call to requestChemistry testing. 05/13/2025 9:41 AM EDT 05/13/2025 9:46 AM EDT us Generic External Data Provider LAB BLOOD ORDERAB LES Final Result [facility] [address] [place] [phone] [phone] * (ABNORMAL) CBC auto differential (05/13/2025 9:41 AM EDT) White Blood Count 4.4(L) 4.8 - 10.8 X10*3/uL [facility] Red Blood Count 4.76 4.20 - 5.50 X10*6/uL [facility] Hemoglobin 13.8 12.0 - 16.0 g/dl [facility] Hematocrit 42.3 37.0 - 47.0 % [facility] Mean Corpuscular Volume 88.9 80.0 - 98.0 fL [facility] Mean Corpuscular Hemoglobin 29.0 27.0 - 33.0 pg [facility] Mean Corpuscular HGB Conc 32.6 31.0 - 35.0 g/dl [facility] Red Cell Distribution Width 13.8 11.0 - 16.0 % [facility] Platelet Count 272 160 - 400 X10*3/uL [facility] Mean Platelet Volume 8.1(L) 9.4 - 12.3 fL [facility] Neutrophils Percent Auto 42.8(L) 45 - 73 % [facility] Imm Gran Pct Auto 0.0 0.0 - 0.4 % [facility] Lymphocytes Percent Auto 38.5 20 - 40 % [facility] Monocytes Percent Auto 8.1 2 - 11 % [facility] Eosinophils Percent Auto 9.7(H) 0 - 4 % [facility] Basophils Percent Auto 0.9 0 - 2 % [facility] NRBC Pct Auto 0.0 0.0 - 0.2 /100WBC [facility] Neutrophils Absolute Auto 1.9(L) 2.0 - 8.3 x10*3/uL [facility] Imm Gran Abs Auto 0.00 0.00 - 0.03 X10*3/uL [facility] Lymphocytes Absolute Auto 1.7 1.2 - 4.9 X10*3/uL [facility] Monocytes Absolute Auto 0.4 0.1 - 1.2 X10*3/uL [facility] Eosinophils Absolute Auto 0.4 0.0 - 0.4 X10*3/uL [facility] Basophils Absolute Auto 0.0 0.0 - 0.2 X10*3/uL [facility] NRBC Abs Auto 0.000 0.0 - 0.012 X10*3/uL [facility] 05/13/2025 9:41 AM EDT 05/13/2025 9:45 AM EDT us Generic External Data Provider LAB BLOOD ORDERAB LES Final Result Performing Organization Address City/[facility]/ZIP Co de Phone Number [facility] [address] [place] [phone] * Sed Rate by Modified Adrian (05/13/2025 9:41 AM EDT) Erythrocyte Sedimentation Rate 11 0 - 20 MM/HR [facility] Comment:Patients with polycy themia and many hemoglobin abnormalitiesmay have depressed sed rates whereas patients with anemiamay have elevated sed rates. 05/13/2025 9:41 AM EDT 05/13/2025 9:45 AM EDT us Generic External Data Provider LAB BLOOD ORDERAB LES Final Result Performing Organization Address [facility]/ZIP Co de Phone Number [facility] [address] [place] [phone] * C-reactive Protein (05/13/2025 9:41 AM EDT) C Reactive Protein 0.27 < or = 0.50 mg/dL [facility] 05/13/2025 9:41 AM EDT 05/13/2025 9:45 AM EDT us Generic External Data Provider LAB BLOOD ORDERAB LES Final Result [facility] [address] [place] [phone] * (ABNORMAL) Comprehensive Metabolic Panel (05/13/2025 9:41 AM EDT) Pathologist [facility] Sodium 143 135 - 145 mmol/L [facility] Potassium 4.6 3.3 - 5.1 mmol/L [facility] Chloride 111(H) 96 - 108 mmol/L [facility] Carbon Dioxide 25 22 - 29 mmol/L [facility] Anion Gap 12 12 - 20 [facility] Urea Nitrogen (BUN) 9 9 - 16 mg/dL [facility] Creatinine, Serum 0.86 0.5 - 1.4 mg/dL [facility] Creatinine Clr Calc Pharmacy 63.3 [facility] Comment:Provided height and weight: 165.1 cm,66.4 kg.eGFR (calculated from the MDRD study equation) and eCrCl(calculated from the Cockcroft-Gault equation) are based ondifferent parameters and may not yield comparable results.If eCrCl result is absurd, please check patient'sheight/weight. Estimated Glomerular Filt Rate >60 [facility] Comment:Chronic Kidney Disea se: Estimated GFR < 60 mL/min/1.93r5Mpincz Kidney Disease: Estimated GFR < 15 mL/min/1.73m2 Glucose 109 60 - 115 mg/dL [facility] Calcium 9.4 8.4 - 10.2 mg/dL [facility] Bilirubin, Total 0.4 0.0 - 1.0 mg/dL [facility] Aspartate Amino Transferase 23 5 - 31 U/L [facility] Alanine Aminotransferase 19 0 - 31 U/L [facility] Total Protein 7.1 6.5 - 8.0 g/dL [facility] Albumin Level 4.2 3.5 - 5.0 g/dL [facility] Alkaline Phosphatase 99 39 - 117 U/L [facility] 05/13/2025 9:41 AM EDT 05/13/2025 9:45 AM EDT us Generic External Data Provider LAB BLOOD ORDERAB LES Final Result Performing Organization Address City/State/[facility] Co de Phone Number [facility] [address] [place] [phone] * CTA Chest PE Protocal (05/01/2025 2:33 PM EDT) Anatomical Region Laterality Modality Body, Chest Computed Tomogra phy 05/01/2025 2:33 PM EDT Narrative 05/01/2025 3:11 PM EDT [address] [address] [address] Scan Report Signed Patient: Laura Gonzalez MR#: [id number] : 1965 Acct:[id number] Age/Sex: 60 / F ADM Date: 05/01/25 Loc: .CT Attending Dr: Jaleel Block MD Ordering Physician: JALEEL BLOCK MD Date of Service: 05/01/25 Procedure(s): CT angio chest PE protocol Accession Number(s): [id number] cc: JALEEL BLOCK MD; MICHAEL YANEZ NP Report Number: [id number]: Total DLP = 139.00 mGy-cm Reason for [...] 05/01/25 1508 DD/ 1433 TD/TT: 05/01/25 1452 Bale Opener: Procedure Note Donotuseinterpreter, Image - 05/01/[address] [place] [address] [address] Scan Report Signed Patient: Aleksandar Gonzalez#: [id number] : 1965Acct:[id number] Age/Sex: 60 / FADM Date: 05/01/25 Loc: HO.CT Attending Dr: Jaleel Block MD Ordering Physician: JALEEL BLOCK MD Date of Service: 05/01/25 Procedure(s): CT angio chest PE protocol Accession Number(s): [id number] cc: JALEEL BLOCK MD; MICHAEL YANEZ NP Report Number: [id number]: Total DLP = 139.00 mGy-cm Reason for [...] Garg MD Signed By: <Electronically signed by Klebre Garg MD in OV> 05/01/25 1508 DD/ 1433 TD/TT: 05/01/25 1452 Bale Opener: Jaleel Block MD IMG CT PROCEDURES Final Result * BI Mammogram Screening Tomosynthesis Bilateral (02/05/2025 12:34 PM EDT) Anatomical Region Laterality Modality Breast Bilateral Mammography 02/05/2025 12:3 4 PM EDT Narrative 02/12/2025 2:54 PM EDT [facility] [address] [place], [place] [address] Mammography Report Signed Patient: Laura Graham MR#: [id number] 27 : 1965 Acct:[id number] Age/Sex: 60 / F ADM Date: 02/05/25 Loc: HO.MAMMO Attending Dr: Alex Machuca MD Ordering Physician: Alex Machuca MD Results: 2Benign Findings Date of Service: 02/05/25 Follow Up: 1 Year From Orig inal Mammogram Procedure(s): MM tomosynthesis screening BI Accession Number(s): [id number] cc: MICHAEL YANEZ NP; Alex Machuca MD [...] 02/12/25 1451 DD/ 1234 TD/TT: 02/05/25 1248 Bale Opener: Procedure Note Donotuseinterpreter, Image - 02/12/2025 [facility] [address] [place] [address] [place] [address] Mammography Report Signed Patient: Aleksandar Graham#: [id number] 27 : 1965Acct:[id number] Age/Sex: 60 / FADM Date: 02/05/25 Loc: HO.MAMMO Attending Dr: Alex Machuca MD Ordering Physician: Alex Machuca MDResults: 2Benign Findings Date of Service: 02/05/25Follow Up: 1 Year From Orig inal Mammogram Procedure(s): MM tomosynthesis screening BI Accession Number(s): [id number] cc: MICHAEL YANEZ MANAGER OF PMO; Alex Machuca MD EXAMINATION: MM SCREENING DIGITAL [...] 02/12/25 1451 DD/ 1234 TD/TT: 02/05/25 1248 Bale Opener: [facility] External Provider IMG BI PROCEDURES Final Result * (ABNORMAL) Lipid Panel, Standard (08/25/2024 10:00 AM EST) Triglycerides 61 <150 mg/dL [facility] Comment:Desirable Triglyceri de: less than 150 mg/dLBorderline High Triglyceride 150-199 mg/dLHigh Triglyceride: 200-499 mg/dLVery High Triglyceride: greater than or equal to 5OO mg/dL Cholesterol 173 <200 mg/dL [facility] Comment:Desirable Cholestero l: less than 200 mg/dLBorderline High Cholesterol: 200-239 mg/dLHigh Cholesterol: greater than 239 mg/dL LDL Cholesterol Calculated 105(H) <100 mg/dL [facility] Comment:Desirable LDL: less than 100 mg/dLNear Optimal/Above Optimal LDL: 110- 129 mg/dLBorderline High LDL: 130-159 mg/dLHigh LDL: 160-189 mg/dLVery High LDL: greater than or equal to 190 mg/dL HDL Cholesterol 56 >40 mg/dL [facility] Comment:Desirable HDL: great er than 40 mg/dL Note: This HDL assay may give artificially low results in patients with liver disease. 08/25/2024 10:0 0 AM EST 08/25/2024 11:37 AM EST [facility] LAB BLOOD ORDERABLES Final Resul t [facility] [address] [place] [phone] * HIV-1/2 Antigen and Antibodies, Fourth Generation, with Reflexes (01/04/2024 9:49 AM EDT) HIV AB/AG Nonreactive Nonreactive [facility] Comment:HIV-1 p24 Ag and/or HIV-1/HIV-2 Ab not detected.A test result that is nonreactive does not exclude thepossibility of exposure to or infection with HIV-1 and/orHIV-2. Nonreactive results in this assay for individualswith prior exposure to HIV-1 and/or HIV-2 may be due toantigen and antibody levels that are below the limit ofdetection of this assay.The [employer] HIV Ag/Ab Combo assay result andsupplemental assay results should be interpreted inconjunction with the patient's clinical presentation,history and other laboratory results. If the results areinconsistent with clinical evidence, additional testing issuggested to confirm the result. Blood Venous blood specimen / Unknown 01/04/2024 9:49 AM EDT 01/04/2024 11:50 AM EDT Michael Sonora ANP LAB BLOOD ORDERABLES Final Resul t Performing Organization Address [facility] Co de Phone Number [facility] [address] [place] [address] [phone] * Hepatitis C Ab (09/09/2022 10:23 AM EST) Hepatitis C Antibody Nonreactive Nonreactive [facility] Comment:Antibodies to HCV no t detected; does not exclude early acuteHCV infection. 09/09/2022 10:2 3 AM EST 09/09/2022 10:23 AM EST [facility] External Provider LAB BLO OD ORDERABLES Final Result Performing Organization Address [facility] de Phone Number [facility] [address] [place] [address] [phone] * Hm Colonoscopy (07/08/2021 12:15 PM EST) Colonoscopy Normal Normal Fidencio Vila MD HEALTH MAINTENANCE Edited Re sult - Final from Last 3 Months or Most Recently Relevant to Health Maintenance Insurance [facility] [place] STAND ADULT [employer] Care Teams Hat Lacer Relationship Specialty Start Date End Date Michael Yanez ANP [address] [place] [address] PCP - General Family Medicine 01/16/20
--- OUTSIDE RECORDS SUMMARY | 2025-07-25 10:29 | XMS_ITS | Encounter Summary ---
Author Organization [employer] Address [address] 7t [place] [address] Care Team Providers Care Manager Lighting Name Role Phone Nupur Weir Primary Care Provider [phone] Abel Chavarria RN Unavailable [phone] Margareth Chavarria Unavailable Reason for Visit * Reason Onset Date Comments Med Refill 01/19/2025 Encounter Details Date Type Department Care Team (Late st Contact Info) Description 01/19/2025 Telephone [facility] MEDICINE [address] [place], [place] [phone] Nupur Weir ANP [address] [place], [place] [phone] Med Refill Social History Tobacco Use Types [...] 50 MG tablet To be sent to: [facility] pharmacy documented in this encounter Plan of Treatment Upcoming Encounters Date Type Department Care Team (Late st Contact Info) Description 08/07/2025 9:45 AM EST Office Visit [facility] MEDICINE [address] [place] [address] 08/14/2025 9:15 AM EST Office Visit [facility] MED[facility]INE [address] [place] [address] Nupur Weir ANP [address] [place] [address] [phone] 09/28/2025 9:30 AM EST Medication Management [facility] MEDICINE [address] [place], [place] [phone] Fay Leigh, PharmD [address] [place], [place] [phone] documented as of this encounter Visit Diagnoses Not on filedocumented in this encounter Care Teams Manager Lighting Relationship Specialty Start Date End Date Nupur Weir ANP [address] [place], [place] [phone] PCP - General Family Medicine 01/16/20 Abel Chavarria, ILENE [address] [place] [address] Registered Nurse Family Medicine 02/26/25 06/18/25 Margareth Chavarria 02/26/25 06/21/25 documented as of this encounter
--- OUTSIDE RECORDS SUMMARY | 2025-07-25 10:29 | XMS_ITS | Encounter Summary ---
Author Organization [employer] Address [address] [address] 7t [place] [address] Care Team Providers Care Booking Officer Name Role Phone Nupur Weir Primary Care Provider [phone] Abel Chavarria RN Unavailable [phone] Margareth Chavarria Unavailable Reason for Visit * Reason Comments Med Refill Encounter Details Date Type Department Care Team (Late st Contact Info) Description 12/22/2024 Refill [facility] MEDICINE [address] [place], [place] [phone] Nupur Weir ANP [address] [place] [address] Arthralgia, unspecified joint Social History Tobacco Use [...] Description 08/07/2025 9:45 AM EST Office Visit [address] [address] 08/14/2025 9:15 AM EST Office Visit [address] [address] Nupur Weir ANP [address] [place] [address] 09/28/2025 9:30 AM EST Medication Management [address] [address] Fay Leigh, MayoD [address] [place] [address] documented as of this encounter Visit Diagnoses Diagnosis Arthralgia, unspecified joint documented in this encounter Care Teams Booking Officer Relationship Specialty Start Date End Date Nupur Weir ANP [address] [place] [address] PCP - General Family Medicine 01/16/20 Abel Chavarria RN [address] [place] [address] Registered Nurse Family Medicine 02/26/25 06/18/25 Margareth Chavarria 02/26/25 06/21/25 documented as of this encounter
--- OUTSIDE RECORDS SUMMARY | 2025-07-25 10:29 | XMS_ITS | Encounter Summary ---
Author Organization [employer] Address [address] 7t [place] [address] Care Team Providers Care Hair Blender Name Role Phone Nupur Weir Primary Care Provider [phone] Abel Chavarria RN Unavailable [phone] Margareth Chavarria Unavailable Reason for Visit * Reason Comments Med Refill Encounter Details Date Type Department Care Team (Late st Contact Info) Description 07/22/2024 Refill [facility] MEDICINE [address] [place], [place] [phone] Nupur Weir ANP [address] [place] [address] Social History Tobacco Use Types Packs/Day Years [...] 08/07/2025 9:45 AM EST Office Visit [address] [address] 08/14/2025 9:15 AM EST Office Visit [address] [address] Nupur Weir ANP [address] [place] [address] 09/28/2025 9:30 AM EST Medication Management [address] [address] Fay Leigh, MayoD [address] [place] [address] documented as of this encounter Visit Diagnoses Not on filedocumented in this encounter Care Teams Hair Blender Relationship Specialty Start Date End Date Nupur Weir ANP [address] [place] [address] PCP - General Family Medicine 01/16/20 Abel Chavarria, ILENE [address] [place] [address] Registered Nurse Family Medicine 02/26/25 06/18/25 Margareth Chavarria 02/26/25 06/21/25 documented as of this encounter
--- OUTSIDE RECORDS SUMMARY | 2025-07-25 10:29 | XMS_ITS | Encounter Summary ---
Author Organization [employer] Address [address] 7t [place] [address] Care Team Providers Care Plywood Stock Grader Name Role Phone Nupur Weir Primary Care Provider Abel Chavarria RN Unavailable Margareth Chavarria Unavailable Reason for Visit * Reason Comments Med Refill Encounter Details Date Type Department Care Team (Late st Contact Info) Description 06/19/2024 Refill [facility] MEDICINE [address] [place], [place] [phone] Nupur Weir ANP [address] [place] [address] Other specified hypothyroidism Social History Tobacco Use [...] Description 08/07/2025 9:45 AM EST Office Visit [address] [address] 08/14/2025 9:15 AM EST Office Visit [address] [address] Nupur Weir ANP [address] [place] [address] 09/28/2025 9:30 AM EST Medication Management [address] [address] Fay Leigh PharmD [address] [place] [phone] documented as of this encounter Visit Diagnoses Diagnosis Other specified hypothyroidism documented in this encounter Care Teams Plywood Stock Grader Relationship Specialty Start Date End Date Nupur Weir ANP [address] [place] [address] PCP - General Family Medicine 01/16/20 Abel Chavarria RN [address] [place] [address] Registered Nurse Family Medicine 02/26/25 06/18/25 Margareth Chavarria 02/26/25 06/21/25 documented as of this encounter
--- OUTSIDE RECORDS SUMMARY | 2025-07-25 10:29 | XMS_ITS | Encounter Summary ---
Author Organization [employer] Address [address] [facility] [address] [facility] [address] 7t [place] [address] Care Team Providers Care Body Maker Name Role Phone Nupur Weir Primary Care Provider [phone] Abel Chavarria RN Unavailable [phone] Margareth Chavarria Unavailable Encounter Details Date Type Department Care Team (Late st Contact Info) Description 07/05/2024 Telephone [facility] ADULT DENTAL [address] [place] [address] Yarelis Rosales DDS 230 [place] [address] Social History Tobacco Use Types Packs/Day Years [...] Description 08/07/2025 9:45 AM EST Office Visit [facility] MEDICINE [address] [place] [address] 08/14/2025 9:15 AM EST Office Visit [facility] MEDICINE [address] [place] [address] Nupur Weir, ANP [address] [place] [address] 09/28/2025 9:30 AM EST Medication Management [facility] MEDICINE [address] [place] [address] Fay Leigh, PharmD [address] [place] [address] documented as of this encounter Visit Diagnoses Not on filedocumented in this encounter Care Teams Body Maker Relationship Specialty Start Date End Date Nupur Weir ANP [address] [place] [address] PCP - General Family Medicine 01/16/20 Abel Chavarria RN [address] [place] [address] Registered Nurse Family Medicine 02/26/25 06/18/25 Margareth Chavarria 02/26/25 06/21/25 documented as of this encounter
--- OUTSIDE RECORDS SUMMARY | 2025-07-25 10:29 | XMS_ITS | Encounter Summary ---
Author Organization [employer] Address [address] 7t [place] [address] Care Team Providers Care Diesel Technician Mechanic Name Role Phone Nupur Weir Primary Care Provider [phone] Reason for Visit * Reason Onset Date Comments Med Refill 07/10/2025 Encounter Details Date Type Department Care Team (Late st Contact Info) Description 07/10/2025 Refill [facility] [address] [place] [address] Nupur Weir ANP [address] [facility] [place] [address] Back pain, unspecified back location, unspecified back [...] Description 08/07/2025 9:45 AM EST Office Visit [address] [address] 08/14/2025 9:15 AM EST Office Visit [address] [address] Nupur Weir, BATOOL [address] [place] [address] 09/28/2025 9:30 AM EST Medication Management [address] [address] Fay Leigh, MayoD [address] [place] [address] documented as of this encounter Visit Diagnoses Diagnosis Back pain, unspecified back location, unspecified back pain laterality, unspecified chronicity documented in this encounter Additional Health Concerns Assessment Noted Time PHQ-9 Depression Total Score: 17 04/12/ 025 10:08 AM EDT documented as of this encounter Care Teams Diesel Technician Mechanic Relationship Specialty Start Date End Date Nupur Weir ANP [address] [place] [address] PCP - General Family Medicine 01/16/20 documented as of this encounter
--- OUTSIDE RECORDS SUMMARY | 2025-07-25 10:29 | XMS_ITS | Encounter Summary ---
Author Organization [employer] Address [address] 7t [place] [address] Care Team Providers Care Vice President Biostatistics Name Role Phone Nupur Weir Primary Care Provider [phone] Abel Chavarria RN Unavailable [phone] Margareth Chavarria Unavailable Reason for Visit * Reason Onset Date Comments Med Refill 12/22/2024 Encounter Details Date Type Department Care Team (Late st Contact Info) Description 12/22/2024 Telephone [facility] MEDICINE [address] [place], [place] [phone] Nupur Weir ANP [address] [place], [place] [phone] Med Refill Social History Tobacco Use Types [...] 50 MG tablet To be sent to: [facility] - [place], [place] - [address] [place] [address] documented in this encounter Plan of Treatment Upcoming Encounters Date Type Department Care Team ([facility] st Contact Info) Description 08/07/2025 9:45 AM EST Office Visit [facility] MEDICINE [address] [place] [address] 08/14/2025 9:15 AM EST Office Visit [facility] MEDICINE [address] [place] [address] Nupur Weir ANP [address] [place] [address] 09/28/2025 9:30 AM EST Medication Management [facility] MEDICINE [address] [place] [address] [phone] Fay Leigh PharmD [address] [place], [place] [phone] documented as of this encounter Visit Diagnoses Not on filedocumented in this encounter Care Teams Vice President Biostatistics Relationship Specialty Start Date End Date Nupur Weir ANP [address] [place] [address] [phone] PCP - General Family Medicine 01/16/20 Abel Chavarria, ILENE [address] [place] [address] Registered Nurse Family Medicine 02/26/25 06/18/25 Margareth Chavarria 02/26/25 06/21/25 documented as of this encounter
--- OUTSIDE RECORDS SUMMARY | 2025-07-25 10:29 | XMS_ITS | Encounter Summary ---
Author Organization [employer] Address [address] [facility] 7t [place] [address] Care Team Providers Care Garment Parts Cutter Hand Name Role Phone Nupur Weir Primary Care Provider [phone] Abel Chavarria RN Unavailable [phone] Margareth Chavarria Unavailable Reason for Visit * Reason Onset Date Comments Med Refill 05/14/2023 Encounter Details Date Type Department Care Team (Late st Contact Info) Description 05/14/2023 Telephone [facility] MEDICINE 230 [place], [place] [phone] Nupur Weir ANP 230 [place], [place] [phone] Med Refill Social History Tobacco Use Types [...] Description 08/07/2025 9:45 AM EST Office Visit [address] [address] 08/14/2025 9:15 AM EST Office Visit [address] [address] Nupur Weir ANP [address] [place] [address] 09/28/2025 9:30 AM EST Medication Management [address] [address] Fay Leigh PharmD [address] [place] [address] documented as of this encounter Visit Diagnoses Not on filedocumented in this encounter Care Teams Garment Parts Cutter Hand Relationship Specialty Start Date End Date Nupur Weir ANP [address] [place] [address] PCP - General Family Medicine 01/16/20 Abel Chavarria RN [address] [place] [address] Registered Nurse Family Medicine 02/26/25 06/18/25 Margareth Chavraria 02/26/25 06/21/25 documented as of this encounter
--- OUTSIDE RECORDS SUMMARY | 2025-07-25 10:29 | XMS_ITS | Patient Health Record ---
Author Organization [facility] Address [address] [place] [address] Care Team Providers Care Explosive Operator Fuse Name Role Phone MICHAEL YANEZ N.P. Primary Care Provider Tiara e Fidencio Vila Jr Unavailable Allergies Allergen (clinical drug ingredient) Drug/Non Drug Allergy documented on EMR Reaction Allergy Type Onset Date Status fentanyl fentaNYL Unknown Drug Allergy Active Reason For Referral Referring Provider First Name MICHAEL Referring Provider Last Name BEAU Huber Referred Organization [facility] Referred Provider Fidencio Vila Jr Referred Address [address] [facility],[address],[place], [place],[address], Referred Provider Specialty Gastroentero logy General Notes Sarah Posey 2024 03:34:27 PM >requested a [facility] referral from [facility] for visit with Dr. Vila on 07-18-25 Clinical Notes Sarah Posey 2024 09:14:45 AM >REQUESTED REFERRAL AGAIN Referral Priority Routine Medications Medication SIG (Take, Route, Frequency, Duration) Notes Start Date End Date Status Vitamin B12 Active Cyclobenzaprine HCl prn Active Levothyroxine Sodium Active Dicyclomine HCl 10 MG Capsule 1 tablet Orally 2-4 times a day 07/14/2024 Active Vitamin C Active Topiramate 50 MG Tablet TAKE 1 TABLET BY MOUTH FOUR TIMES DAILY Oral; Duration: 90 Unknown traMADol HCl 50 MG Tablet Oral; Duration: 7 M2550,Unavail able Active Vitamin B-2 Active Ferrous Sulfate 325 (65 Fe) MG Tablet Delayed Release Oral; Duration: 90 D509,Unavaila ble Active Vitamin D 1000units Active ProAir HFA 8.5gm Act jermain Pantoprazole Sodium 40 MG Tablet Delayed Release TAKE 1 TABLET BY MOUTH EVERY DAY; Duration: 90 Active Gabapentin 100 MG Capsule TAKE 1 CAPSULE BY MOUTH FOUR TIMES DAILY Diagnosis Unavailable Oral; Duration: 30 Active Magnesium Oxide 400 MG Tablet TAKE 1 TABLET BY MOUTH DAILY Oral; Duration: 90 Active hydrOXYzine Pamoate 50 MG Capsule TAKE 1 CAPSULE BY MOUTH AT BEDTIME. TAKE 1 CAPSULE 2 TIMES PER DAY NEEDED FOR INCREASED ANXIETY Oral; Duration: 30 Active Flovent HFA 110 MCG/ACT Aerosol INHALE 1 PUFF BY MOUTH TWICE DAILY Inhalation; Duration: 60 prn Active Melatonin 10 MG Capsule as directed Orally Active Immunizations Vaccine Route Administration Date Status Comme nts Influenza Unknown 12/14/2018 Refused Influenza Unknown 11/30/2022 Refused Influenza Unknown 07/18/2025 Refused Social History Social History Additional Details Category Social Info Options Details Miscellaneous: Marital status: single Occupation: unemployed Problems Problem Type SNOMED Code ICD Code Onset Dates Problem Status W/U Status Risk Notes Problem Colon cancer screening (761182761) Colon cancer screening (Z12.11) Active confirmed Problem Rectal bleeding (54357650) Rectal bleeding (K62.5) Active confirmed Problem Epigastric pain (99835788) Epigastric pain (R10.13) Active confirmed Problem Dysphagia (61042461) Dysphagia (R13.10) Active confirmed Problem Elevated liver enzymes level (368466989) Elevated LFTs (R79.89) Active confirmed Problem Gastroesophageal reflux disease without esophagitis (971377423) Gastroesophageal reflux disease without esophagitis (K21.9) Active confirmed Problem Dysphagia (08133422) Dysphagia, unspecified type (R13.10) Active confirmed Vital Signs Temperature 98.0 degrees Fahrenheit 07/18/2025 Blood pressure diastolic 01 mm Hg 07/18/2025 Height 64.5 in 07/18/2025 Blood pressure systolic 001 mm Hg 07/18/2025 Weight 137.2 lbs 07/18/2025 BMI 23.18 kg/m2 07/18/2025 Encounters Encounter Location Date Provider Diagnosis [facility] [address] [place] [address] 07/18/2025 Fidencio Vila Jr Weight loss R63.4 and Abdominal pain R10.9 [facility] [address] [place] [address] 07/18/2025 Fidencio Vila Jr Assessments Encounter Date Diagnosis (ICD Code) Assessment Notes Treatment Notes Treatment Clinical Notes Section Notes 07/18/2025 Abdominal pain (ICD-10 - R10.9) We discussed her symptoms today. We discussed further evaluation with laboratory studies. This will be arranged. She may need imaging pending her results. This will also depend on her clinical course. 07/18/2025 Weight loss (ICD-10 - R63.4) We discussed her symptoms today. We discussed further evaluation with laboratory studies. This will be arranged. She may need imaging pending her results. This will also depend on her clinical course. Plan Of Treatment Pending Test Test Name Order Date LIVER PROFILE 11/30/2022 LIVER PROFILE 06/02/2023 LIVER PROFILE 07/14/2024 LIVER PROFILE 11/11/2022 LIVER PROFILE 07/18/2025 LIPASE 11/11/2022 LIPASE 07/18/2025 LIPASE 07/14/2024 LIPASE 11/30/2022 GGT 06/02/2023 TSH (THYROID STIMULATING HORMONE) 2023 IRON + IBC (FE) 06/02/2023 FERRITIN 06/02/2023 CBC w DIFF 07/14/2024 CBC w/o DIFF 07/18/2025 CBC w/o DIFF 11/30/2022 CBC w/o DIFF 11/11/2022 MITOCHONDRIAL AB 06/02/2023 SMOOTH MUSCLE ANTIBODIES 06/02/2023 XR GI SERIES 09/12/2015 US ABD 11/30/2022 TSH REFLEX FREE T4 07/18/2025 Future Test Test Name Order Date COLONOSCOPY 07/08/2012 UPPER GI ENDOSCOPY BALLOOON DILATION OF ESOPH 12/11/2015 COLONOSCOPY 12/11/2015 COLONOSCOPY 06/23/2021 COLONOSCOPY 12/01/2023 Next Appt Details Provider Name:Fidencio haider Jr, 07/22/2026 10:00:00 AM, [address], [address], [place], [address], Insurance Providers Payer Name Payer Address Payer Phone Subscriber Number Group Number Insured Name Patient Relationship to Insured Coverage Start Date Coverage End Date MEDICAID OF [id number] [address] [place] [phone] [id number] TAY TYLER Self - patient is the [...] partial hysterectomy tonsillectomy cancer in uterus [phone] Laparoscopic bypass surgery 11/14 removed two cyst removed fro m right shouder and outer colon =dr. jones
--- OUTSIDE RECORDS SUMMARY | 2025-07-25 10:29 | XMS_ITS | Encounter Summary ---
Author Organization [employer] Address [address] [facility] 7t [place] [address] Care Team Providers Care Destaticizer Feeder Name Role Phone Nupur Weir Primary Care Provider Abel Chavarria RN Unavailable [phone] Margareth Chavarria Unavailable Encounter Details Date Type Department Care Team (Late st Contact Info) Description 08/14/2022 Abstract [facility] [address] [place] [address] Angel Lagos, CAPRI [address] [place], [place] [phone] Social History Tobacco Use Types Packs/Day Years [...] Description 08/07/2025 9:45 AM EST Office Visit [facility] [address] [place] [address] 08/14/2025 9:15 AM EST Office Visit [facility] [address] [place] [address] Nupur Weir ANP [address] [place], [place] [phone] 09/28/2025 9:30 AM EST Medication Management [facility] [address] [place], [place] [phone] Fay Leigh, PharmD [address] [place], [place] [phone] documented as of this encounter Visit Diagnoses Not on filedocumented in this encounter Care Teams Destaticizer Feeder Relationship Specialty Start Date End Date Nupur Weir ANP [address] [place], [place] [phone] PCP - General Family Medicine 01/16/20 Abel Chavarria, ILENE [address] [place] [address] Registered Nurse Family Medicine 02/26/25 06/18/25 Margareth Chavarria 02/26/25 06/21/25 documented as of this encounter
--- OUTSIDE RECORDS SUMMARY | 2025-07-25 10:29 | XMS_ITS | Encounter Summary ---
Author Organization [employer] Address [address] [facility] 7t [place] [address] Care Team Providers Care Report Checker Name Role Phone Nupur Weir Primary Care Provider [phone] Abel Chavarria RN Unavailable [phone] Margareth Chavarria Unavailable Reason for Visit * Reason Comments Med Refill Encounter Details Date Type Department Care Team (Late st Contact Info) Description 03/22/2024 Refill [facility] [address] [place], [place] [phone] Marcella Colindres MD 230 [place] [address] Acute pyelonephritis Social History Tobacco Use Types [...] Description 08/07/2025 9:45 AM EST Office Visit [address] [address] 08/14/2025 9:15 AM EST Office Visit [address] [address] Nupur Weir ANP [address] [place] [address] 09/28/2025 9:30 AM EST Medication Management [address] [address] Fay Leigh, PharmD [address] [place] [address] documented as of this encounter Visit Diagnoses Diagnosis Acute pyelonephritis 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
--- OUTSIDE RECORDS SUMMARY | 2025-07-25 10:29 | XMS_ITS | Encounter Summary ---
Author Organization [employer] Address [address] 7t [place] [address] Care Team Providers Care Towel Cabinet Repairer Name Role Phone Nupur Weir Primary Care Provider [phone] Abel Chavarria RN Unavailable [phone] Margareth Chavarria Unavailable Reason for Visit * Reason Onset Date Comments Med Refill 07/26/2024 Encounter Details Date Type Department Care Team (Late st Contact Info) Description 07/26/2024 Telephone [facility] [address] [place], [place] [phone] Nupur Weir ANP [address] [place], [place] [phone] Med Refill Social History Tobacco Use Types [...] 50 MG tablet To be sent to: [id number] - [place], [place] - [address] [facility] documented in this encounter Plan of Treatment Upcoming Encounters Date Type Department Care Team ([facility] st Contact Info) Description 08/07/2025 9:45 AM EST Office Visit [facility] [address] [place] [address] 08/14/2025 9:15 AM EST Office Visit [facility] [address] [place] [address] Nupur Weir ANP [address] [place] [address] 09/28/2025 9:30 AM EST Medication Management [facility] [address] [place], [place] [phone] Fay Leigh PharmD [address] [place], [place] [phone] documented as of this encounter Visit Diagnoses Not on filedocumented in this encounter Care Teams Towel Cabinet Repairer Relationship Specialty Start Date End Date Nupur Weir ANP [address] [place], [place] [phone] PCP - General Family Medicine 01/16/20 Abel Chavarria RN [address] [place] [address] Registered Nurse Family Medicine 02/26/25 06/18/25 Margareth Chavarria 02/26/25 06/21/25 documented as of this encounter
--- OUTSIDE RECORDS SUMMARY | 2025-07-25 10:29 | XMS_ITS | Encounter Summary ---
Author Organization [employer] Address [address] 7t [place] [address] Care Team Providers Care Superintendent Compressor Stations Name Role Phone Nupur Weir Primary Care Provider [phone] Abel Chavarria RN Unavailable [phone] Margareth Chavarria Unavailable Reason for Visit * Reason Comments Med Refill Encounter Details Date Type Department Care Team (Late st Contact Info) Description 03/11/2025 Refill [facility] 230 [place], [place] [phone] Nupur Weir ANP [address] [place] [address] Arthralgia, unspecified joint Social History Tobacco Use [...] Description 08/07/2025 9:45 AM EST Office Visit [address] [address] 08/14/2025 9:15 AM EST Office Visit [address] [address] Nupur Weir, ANP [address] [place] [address] 09/28/2025 9:30 AM EST Medication Management [address] [address] Fay Leigh, MayoD [address] [place] [address] documented as of this encounter Visit Diagnoses Diagnosis Arthralgia, unspecified joint documented in this encounter Care Teams Superintendent Compressor Stations Relationship Specialty Start Date End Date Nupur Weir ANP [address] [place] [address] PCP - General Family Medicine 01/16/20 Abel Chavarria RN [address] [place] [address] Registered Nurse Family Medicine 02/26/25 06/18/25 Margareth Chavarria 02/26/25 06/21/25 documented as of this encounter
--- OUTSIDE RECORDS SUMMARY | 2025-07-25 10:29 | XMS_ITS | Encounter Summary ---
Author Organization [employer] Address [address] [facility] [address] 7t [place] [address] Care Team Providers Care Nurse Advisor Name Role Phone Nupur Weir Primary Care Provider [phone] Abel Chavarria RN Unavailable [phone] Margareth Chavarria Unavailable Reason for Visit * Reason Comments Med Refill Encounter Details Date Type Department Care Team (Late st Contact Info) Description 12/21/2024 Refill [facility] 230 [place], [place] [phone] Nupur Weir ANP 230 [place] [address] Arthralgia, unspecified joint Social History Tobacco Use [...] Description 08/07/2025 9:45 AM EST Office Visit [address] [address] 08/14/2025 9:15 AM EST Office Visit [address] [address] Nupur Weir ANP [address] [place] [address] 09/28/2025 9:30 AM EST Medication Management [address] [address] Fay Leigh, MayoD [address] [place] [address] documented as of this encounter Visit Diagnoses Diagnosis Arthralgia, unspecified joint documented in this encounter Care Teams Nurse Advisor Relationship Specialty Start Date End Date Nupur Weir ANP 230 [place] [address] PCP - General Family Medicine 01/16/20 Abel Chavarria RN [address] [place] [address] Registered Nurse Family Medicine 02/26/25 06/18/25 Margareth Chavarria 02/26/25 06/21/25 documented as of this encounter
--- OUTSIDE RECORDS SUMMARY | 2025-07-25 10:29 | XMS_ITS | Encounter Summary ---
Author Organization [employer] Address [address] [facility] 7t [place] [address] Care Team Providers Care Laboratory Operations Coordinator Name Role Phone Nupur Weir Primary Care Provider [phone] Abel Chavarria RN Unavailable [phone] Margareth Chavarria Unavailable Encounter Details Date Type Department Care Team (Latest Contact Info) Description 03/26/2022 Abstract [facility] CON[facility] Dental, Provider, DDS Social History [...] Description 08/07/2025 9:45 AM EST Office Visit [facility] [address] [place] [address] 08/14/2025 9:15 AM EST Office Visit [facility] [address] [place] [address] [phone] Nupur Weir ANP 230 [place] [address] 09/28/2025 9:30 AM EST Medication Management [facility] [address] [place] [address] [phone] Fay Leigh, PharmD 230 [place] [address] documented as of this encounter Visit Diagnoses Not on filedocumented in this encounter Care Teams Laboratory Operations Coordinator Relationship Specialty Start Date End Date Nupur Weir ANP 230 [place], [place] [phone] PCP - General Family Medicine 01/16/20 Abel Chavarria, ILENE [address] [place] [address] Registered Nurse Family Medicine 02/26/25 06/18/25 Margareth Chavarria 02/26/25 06/21/25 documented as of this encounter
--- OUTSIDE RECORDS SUMMARY | 2025-07-25 10:29 | XMS_ITS | Encounter Summary ---
Author Organization [employer] Address [address] [facility] [address] 7t [place] [address] Care Team Providers Care Arcade Attendant Name Role Phone Nupur Weir Primary Care Provider [phone] Abel Chavarria RN Unavailable [phone] Margareth Chavarria Unavailable Encounter Details Date Type Department Care Team (Late st Contact Info) Description 04/11/2024 Orders Only [facility] 230 [place], [place] [phone] Nupur Weir ANP 230 [place], [place] [phone] Social History Tobacco Use Types Packs/Day Years [...] Description 08/07/2025 9:45 AM EST Office Visit [address] [address] 08/14/2025 9:15 AM EST Office Visit [address] [address] Nupur Weir ANP [address] [place] [address] 09/28/2025 9:30 AM EST Medication Management [address] [address] Fay Leigh PharmD [address] [place] [address] documented as of this encounter Visit Diagnoses Not on filedocumented in this encounter Care Teams Arcade Attendant Relationship Specialty Start Date End Date Nupur Weir ANP [address] [place] [address] PCP - General Family Medicine 01/16/20 Abel Chavarria, ILENE [address] [place] [address] Registered Nurse Family Medicine 02/26/25 06/18/25 Margareth Chavarria 02/26/25 06/21/25 documented as of this encounter
--- OUTSIDE RECORDS SUMMARY | 2025-07-25 10:29 | XMS_ITS | Encounter Summary ---
Author Organization [employer] Address [address] [facility] [address] 7t [place] [address] Care Team Providers Care Navy Senior Officer Name Role Phone Nupur Weir Primary Care Provider [phone] Abel Chavarria RN Unavailable [phone] Margareth Chavarria Unavailable Encounter Details Date Type Department Care Team (Late st Contact Info) Description 04/05/2025 Orders Only [facility] 230 [place], [place] [phone] Jaleel Block MD 230 [place], [place] [phone] Right-sided chest pain (Primary Dx); Hemoptysis Social [...] Description 08/07/2025 9:45 AM EST Office Visit [address] [address] 08/14/2025 9:15 AM EST Office Visit [address] [address] Nupur Weir, ANP [address] [place] [address] 09/28/2025 9:30 AM EST Medication Management [address] [address] Fay Leigh, MayoD [address] [place] [address] documented as of this encounter Procedures Procedure Name Priority Date/Time Associated Diagnosis Comments CULTURE, URINE, ROUTINE Routine 04/05/2025 12:00 AM EDT Right-sided chest pain documented in this encounter Results * Culture, Urine, Routine (04/05/2025 12:00 AM EDT) Urine Urine specimen obtained by clean catch procedure / Unknown 04/05/2025 04/05/2025 Comment:[facility] - 04/06/2025 10:53 AM EDT Urine Culture No growth. Specimen Source: Urine clean catch us Generic External Data Provider LAB MICROBIOLOGY - GENERAL ORDERABLES Final Result [facility] [address] [place] [address] [phone] documented in this encounter Visit Diagnoses Diagnosis Right-sided chest pain- Primary Hemoptysis documented in this encounter Additional Health Concerns Assessment Noted Time PHQ-9 Depression Total Score: 7 03/15/20 3:29 PM EDT documented as of this encounter Care Teams Navy Senior Officer Relationship Specialty Start Date End Date Nupur Weir ANP [address] [place] [address] PCP - General Family Medicine 01/16/20 Abel Chavarria RN [address] [place] [address] Registered Nurse Family Medicine 02/26/25 06/18/25 Margareth Chavarria 02/26/25 06/21/25 documented as of this encounter
--- OUTSIDE RECORDS SUMMARY | 2025-07-25 10:29 | XMS_ITS | Encounter Summary ---
Author Organization [employer] Address [address] [facility] 7t [place] [address] Care Team Providers Care Director Of In Service Education Name Role Phone Nupur Weir Primary Care Provider [phone] Abel Chavarria RN Unavailable [phone] Margareth Chavarria Unavailable Encounter Details Date Type Department Care Team (Late st Contact Info) Description 07/30/2022 Abstract [facility] ADULT D[facility]AL [address] [place] [address] Dental, Provider, DDS Social History Tobacco Use [...] 08/07/2025 9:45 AM EST Office Visit [facility] [address] [place] [address] [phone] 08/14/2025 9:15 AM EST Office Visit [facility] [address] [place] [address] Nupur Weir ANP [address] [place] [address] 09/28/2025 9:30 AM EST Medication Management [facility] [address] [place] [address] Fay Leigh, MayoD [address] [place] [address] documented as of this encounter Procedures Procedure [...] in this encounter Care Teams Director Of In Service Education Relationship Specialty Start Date End Date Nupur Weir ANP [address] [place] [address] PCP - General Family Medicine 01/16/20 Abel Chavarria RN [address] [place] [address] Registered Nurse Family Medicine 02/26/25 06/18/25 Margareth Chavarria 02/26/25 06/21/25 documented as of this encounter
[2025-07-25 11:37] LABS: Alanine Aminotransferase 17 U/L (0-31); Albumin Level 4.1 g/dL (3.5-5.0); Alkaline Phosphatase 97 U/L (39-117); Aspartate Amino Transferase 18 U/L (5-31); Lipase 15 U/L (8-78); Total Protein 6.6 g/dL (6.5-8.0)
== END 2025-07-25 09:25 | disposition home or self-care (01) ==
LOC: HO.LAB 09:24
PROVIDERS: Absent Provider Nurse Practitioner Primary Care; PCP Nurse Practitioner Primary Care; Referring Provider Nurse Practitioner Family; Visit Provider Internal Medicine Gastroenterology
DX: R63.4 Abnormal weight loss (principal); R10.9 Unspecified abdominal pain
CPT/HCPCS: 36415; 80076; 83690; 84443; 85027

== ENCOUNTER 2025-08-21 13:39 | Outpatient (REF) | payer MEDICAID, SELFPAY ==
--- OUTSIDE RECORDS SUMMARY | 2025-01-03 04:20 | XMS_ITS ---
Author Organization [facility] Address [address] [place] [address] Care Team Providers Care Online Trader Name Role Phone MICHAEL YANEZ N.P. Primary Care Provider Fidencio Langley Jr REASON FOR VISIT dysphagia Encounters Encounter Location Date Provider Diagnosis [facility] [address] [place] [phone] 01/03/2025 Fidencio Vila Jr Plan Of Treatment Next Appt Details Provider Name:Fidencio haider Jr, 07/22/2026 10:00:00 AM, [address] [facility] [address] [facility], [address], [place], [address], Progress Notes * TIFFANIE TYLERADOB: 6 (60 yo F)Acc No.[id number]:01/03/2025 Progress Notes Patient: TAY CAPELLAN Provider: Remi Vila MD :1965 A ge:59 Y S ex:Female Date:01/03/2025 Address:[address] [place] Pcp:MICHAEL YANEZ N.P. Subjective: * Chief Complaints: * D ysphagia * The named appointment provid er may or may not be the originator of this progress note, and it is not deemed complete until electronically signed by the appointment provider. Sign off status: Pending * Provider: Remi Vila MD Date: 0 01/03/2025 Generated for Viviane negrete/Shakila/Constantino on: 1 10/22/2024 02:49 PM EST
--- OUTSIDE RECORDS SUMMARY | 2025-07-11 04:40 | XMS_ITS ---
Author Organization [facility] Address [address] [place] [address] Care Team Providers Care Catalog Library Assistant Name Role Phone MICHAEL YANEZ N.P. Primary Care Provider Fidencio Langley Jr [phone] Encounters Encounter Location Date Provider Diagnosis [facility] [address] [place] [phone] 07/11/2025 Fidencio Vila Jr Plan Of Treatment Next Appt Details Provider Name:Fidencio haider Jr, 07/22/2026 10:00:00 AM, [address] [facility], [address], [place], [address], Progress Notes * TIFFANIE TYLERADOB: 6 (60 yo F)Acc No.[id number]:07/11/2025 Progress Notes Patient: TAY CAPELLAN Provider: Remi Vila MD :1965 A ge:60 Y S ex:Female Date:07/11/2025 Address:[address] [id number] Pcp:MICHAEL YANEZ N.P. * The named appointment provid er may or may not be the originator of this progress note, and it is not deemed complete until electronically signed by the appointment provider. Sign off status: Pending * Provider: Remi Vila MD Date: 09/10/2024 Generated for Viviane negrete/Shakila/Chungsmitting on: 1 10/22/2024 02:51 PM EST
--- OUTSIDE RECORDS SUMMARY | 2025-08-21 11:00 | XMS_ITS | Encounter Summary ---
Author Organization [employer] Address [address] [facility] [address] 7t [place] [address] Care Team Providers Care Button Sewer Name Role Phone Nupur Weir Primary Care Provider [phone] Abel Chavarria RN Unavailable [phone] Isabell Maldonado Unavailable Willi Deleon MD Unavailable Sultana Garcia NP Unavailable Fidencio Vila MD Unavailable Encounter Details Date Type Department Care Team (Late st Contact Info) Description 08/21/2025 11:00 AM EST Office Visit [facility] MED[facility] [address] [place] [address] Anushka Gunter FNP [address] [place], [place] [phone] 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 (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 Dx) Social History Tobacco Use Types [...] Care Team (Late st Contact Info) Description 09/21/2025 3:30 PM EST Office Visit [facility] [address] [place] [address] Angel Lagos, DMD [address] [place] [address] 09/28/2025 9:30 AM EST Medication Management [facility] [address] [place] [address] Fay Leigh, PharmD [address] [place] [address] 10/23/2025 11:00 AM EST Office Visit [facility] [address] [place] [address] 11/26/2025 8:45 AM EDT Office Visit [facility] [address] [place] [address] Taty, Laura [address] [place] [address] Scheduled Orders Name Type Priority Associated Diagnoses Orde r Schedule Methadone, GC/MS, Urine Lab Routine 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 Expected: 08/21/2025 (Approximate), Expires: 08/21/2026 documented as of this encounter Procedures Procedure Name Priority Date/Time Associated Diagnosis Comments POCT MERY-14 URINE DRUG SCREEN Routine 08/21/2025 1:50 PM EST 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 documented in this encounter Results * (ABNORMAL) POCT MERY-14 Urine Drug Screen (08/21/2025 1:50 PM EST) Amphetamine Screen, Urine Negative Negative Barbiturate Screen, Urine Negative Negative Buprenophine Screen, Urine Negative Negative Benzodiazepines Screen, Urine Negative Negative Cocaine Screen, Urine Negative Negative Fentanyl, Urine Negative Negative MDMA Urine Negative Negative ng/mL Methamphetamine Screen Urine Negative Negative Opiate Screen, Urine Negative Negative Methadone Screen, Urine Positive(A) Negative Oxycodone Screen, Urine Negative Negative Phencyclidine (PCP), Urine Negative Negative TCA, Urine Negative Negative THC Negative Negative Propoxyphene, Urine Negative Negative Urine Urine specimen obtained by clean catch procedure / Unknown 08/21/2025 1:50 PM EST Narrative Kassy Ramsey RN - 08/21/2025 1:50 PM EST .UT[employer] cup Lot#[id number] Exp. 06/29/26 Internal Pass Control Anushka Gunter DEVELOPMENT EDITOR POINT OF CARE TEST ENTER/EDIT ORDERABLES Final Result documented in this encounter Visit Diagnoses Diagnosis [facility] (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- Primary documented in this encounter Additional Health Concerns Assessment Noted Time PHQ-9 Depression Total Score: 17 04/12/ 025 10:08 AM EDT documented as of this encounter Care Teams Button Sewer Relationship Specialty Start Date End Date Nupur Weir ANP [address] [place] [address] PCP - General Family Medicine 01/16/20 Abel Chavarria, ILENE [address] [place] [address] Registered Nurse Family Medicine 08/03/25 Isabell Maldonado 08/03/25 Willi Deleon MD [address] [place] [address] Cardiology 08/14/25 Sultana Garcia NP [address] [place] [address] Drive [address] [place] [address] Urology 08/14/25 Fidencio Vila MD [address] [place] [address] DR [address] [place] [phone] Gastroenterology 08/14/25 documented as of this encounter
--- OUTSIDE RECORDS SUMMARY | 2025-08-21 14:49 | XMS_ITS | Encounter Summary ---
Author Organization [employer] Address 75 [facility] 7t [place] [address] Care Team Providers Care Operations Technician Name Role Phone Nupur Weir Primary Care Provider [phone] Abel Chavarria RN Unavailable [phone] Margareth Chavarria Unavailable Abel Chavarria RN Unavailable [phone] Isabell Maldonado Unavailable Willi Deleon MD Unavailable [phone] Sultana Garcia NP Unavailable Fidencio Vila MD Unavailable [phone] Reason for Visit * Reason Comments Med Refill Encounter Details Date Type Department Care Team (Late st Contact Info) Description 11/07/2024 Refill [facility] CH[facility] MED & PEDS [address] [place], [place] [phone] Nupur Weir ANP 230 [place] [address] Primary hypertension; Iron deficiency anemia, unspecified iron [...] t he electric, gas, oil or water [employer] threatened to shut off services in your [...] Description 09/21/2025 3:30 PM EST Office Visit [facility] ADULT DENTAL 230 [place] [address] Angel Lagos, CAPRI 230 [place] [address] 09/28/2025 9:30 AM EST Medication Management [facility] MEDICINE 230 [place] [address] Fay Leigh PharmD 230 [place] [address] 10/23/2025 11:00 AM EST Office Visit [facility] MEDICINE 230 [place] [address] 11/26/2025 8:45 AM EDT Office Visit [facility] ADULT DENTAL 230 [place] [address] Taty, Laura 230 [place] [address] documented as of this encounter Visit Diagnoses Diagnosis Primary hypertension Unspecified essential hypertension Iron deficiency anemia, unspecified iron deficiency anemia type documented in this encounter Care Teams Operations Technician Relationship Specialty Start Date End Date Nupur Weir ANP [address] [place] [address] PCP - General Family Medicine 01/16/20 Abel Chavarria, ILENE 505 [place] [address] Registered Nurse Family Medicine 02/26/25 06/18/25 Margareth Chavarria 02/26/25 06/21/25 Abel Chavarria, ILENE [address] [place] [address] Registered Nurse Family Medicine 08/03/25 Isabell Maldonado 08/03/25 Willi Deleon MD [address] [place] [address] Cardiology 08/14/25 Sultana Garcia NP [address] [place] [address] Urology 08/14/25 Fidencio Vila MD [address] [place] [address] [address] [place] [address] Gastroenterology 08/14/25 documented as of this encounter
--- OUTSIDE RECORDS SUMMARY | 2025-08-21 14:50 | XMS_ITS | Encounter Summary ---
Author Organization [employer] Address 75 [facility] 7t [place] [address] Care Team Providers Care Embossing Clerk Name Role Phone Nupur Weir Primary Care Provider [phone] Abel Chavarria RN Unavailable [phone] Isabell Maldonado Unavailable Willi Deleon MD Unavailable [phone] Sultana Garcia NP Unavailable Fidencio Vila MD Unavailable Reason for Visit * Reason Onset Date Comments Appointment Request 08/06/2025 Encounter Details Date Type Department Care Team (Late st Contact Info) Description 08/06/2025 Telephone [facility] MEDICINE 230 [place], [place] [phone] Nupur Weir ANP 230 [place] [address] Appointment Request Social History Tobacco Use Types [...] encounter Miscellaneous Notes * Telephone Encounter - Jasen Maldonado - 08/06/2025 4:49 PM EST Tc from pt requesting a call back to reschedule Pain management appointment. Please contact pt at [phone]. (Frisian Speaker) documented in this encounter Plan of Treatment Upcoming Encounters Date Type Department Care Team (Late st Contact Info) Description 09/21/2025 3:30 PM EST Office Visit [facility] ADULT DENTAL 230 [place] [address] Angel Lagos, DMD 230 [place] [address] 09/28/2025 9:30 AM EST Medication Management [address] [address] Fay Leigh, PharmD 230 [place] [address] 10/23/2025 11:00 AM EST Office Visit [address] [address] 11/26/2025 8:45 AM EDT Office Visit [facility] ADULT DENTAL [address] [place] [address] Taty Laura 230 [place] [address] documented as of this encounter Visit Diagnoses Not on filedocumented in this encounter Additional Health Concerns Assessment Noted Time PHQ-9 Depression Total Score: 17 025 10:08 AM EDT documented as of this encounter Care Teams Embossing Clerk Relationship Specialty Start Date End Date Nupur Weir ANP [address] [place] [address] PCP - General Family Medicine 01/16/20 Abel Chavarria, ILENE 505 [place] [address] Registered Nurse Family Medicine 08/03/25 Isabell Maldonado 08/03/25 Willi Deleon MD [address] [place] [address] Cardiology 08/14/25 Sultana Garcia NP [address] [place] [address] Urology 08/14/25 Fidencio Vila MD [address] [place] [address] [address] [place] [address] Gastroenterology 08/14/25 documented as of this encounter
--- OUTSIDE RECORDS SUMMARY | 2025-08-21 14:50 | XMS_ITS | Encounter Summary ---
Author Organization [employer] Address 75 [facility] 7t [place] [address] Care Team Providers Care Laminating Machine Operator Helper Name Role Phone Nupur Weir Primary Care Provider Abel Chavarria RN Unavailable [phone] Margareth Chavarria Unavailable Abel Chavarria RN Unavailable [phone] Isabell Maldonado Unavailable Willi Deleon MD Unavailable Sultana Garcia NP Unavailable Fidencio Vila MD Unavailable Reason for Visit * Reason Comments Med Refill Encounter Details Date Type Department Care Team (Late st Contact Info) Description 01/09/2023 Refill [facility] MEDICINE 230 [place] [address] Nupur Weir ANP 230 [place] [address] Arthralgia, unspecified joint; Other specified hypothyroidism Social [...] Description 09/21/2025 3:30 PM EST Office Visit [facility] ADULT DENTAL [address] [place] [address] Angel Lagos, CAPRI 230 [place] [address] 09/28/2025 9:30 AM EST Medication Management [facility] MEDICINE [address] [place] [address] Fay Leigh PharmD [address] [place] [address] 10/23/2025 11:00 AM EST Office Visit [address] [address] 11/26/2025 8:45 AM EDT Office Visit [facility] ADULT DENTAL [address] [place] [address] Laura Posey 230 [place] [address] documented as of this encounter Visit Diagnoses Diagnosis Arthralgia, unspecified joint Other specified hypothyroidism documented in this encounter Care Teams Laminating Machine Operator Helper Relationship Specialty Start Date End Date Nupur Weir ANP [address] [place] [address] PCP - General Family Medicine 01/16/20 Abel Chavarria RN [address] [place] [address] Registered Nurse Family Medicine 02/26/25 06/18/25 Margareth Chavarria 02/26/25 06/21/25 Abel Chavarria, RN [address] [place] [address] Registered Nurse Family Medicine 08/03/25 Isabell Maldonado 08/03/25 Willi Deleon MD [address] [place] [address] Cardiology 08/14/25 Sultana Garcia NP [address] [place] [address] Drive [address] [place] [address] Urology 08/14/25 Fidencio Vila MD [address] [place] [address] [address] [place] [phone] Gastroenterology 08/14/25 documented as of this encounter
--- OUTSIDE RECORDS SUMMARY | 2025-08-21 14:50 | XMS_ITS | Encounter Summary ---
Author Organization [employer] Address 75 [facility] 7t [place] [address] Care Team Providers Care Information Broker Name Role Phone Nupur Weir Primary Care Provider [phone] Abel Chavarria RN Unavailable [phone] Margareth Chavarria Unavailable Abel Chavarria RN Unavailable [phone] Isabell Maldonado Unavailable Willi Deleon MD Unavailable [phone] Sultana Garcia NP Unavailable Fidencio Vila MD Unavailable Reason for Visit * Reason Onset Date Comments Appointment Request 11/30/2024 Encounter Details Date Type Department Care Team (Late st Contact Info) Description 11/30/[address] [facility] MEDICINE 230 [place], [place] [phone] Nupur Weir ANP 230 [place], [place] [phone] Appointment Request Social History Tobacco Use Types [...] EDT Tc from pt requesting to r/s MEDICAL SERVICES MANAGER appt. States has another appt around the same time at sleep medicine and pt informs takes bus and believes will not be able to make it on time. Would like to r/s for Wednesday. documented in this encounter Plan of Treatment Upcoming Encounters Date Type Department Care Team (Late st Contact Info) Description 09/21/2025 3:30 PM EST Office Visit [facility] ADULT DENTAL [address] [place] [address] Angel Lagos, DMD 230 [place] [address] 09/28/2025 9:30 AM EST Medication Management [address] [address] Fay Leigh, MayoD [address] [place] [address] 10/23/2025 11:00 AM EST Office Visit [address] [address] 11/26/2025 8:45 AM EDT Office Visit [facility] ADULT DENTAL [address] [place] [address] Taty, Laura 230 [place] [address] documented as of this encounter Visit Diagnoses Not on filedocumented in this encounter Care Teams Information Broker Relationship Specialty Start Date End Date Nupur Weir ANP [address] [place] [address] PCP - General Family Medicine 01/16/20 Abel Chavarria RN 505 [place] [address] Registered Nurse Family Medicine 02/26/25 06/18/25 Margareth Chavarria 02/26/25 06/21/25 Abel Chavarria RN 505 [place] [address] Registered Nurse Family Medicine 08/03/25 Isabell Maldonado 08/03/25 Willi Deleon MD 5[address] [place] [address] Cardiology 08/14/25 Sultana Garcia NP [address] [place] [address] Drive [address] [place] [address] Urology 08/14/25 Fidencio Vila MD [address] [place] [address] [address] [place] [address] Gastroenterology 08/14/25 documented as of this encounter
--- OUTSIDE RECORDS SUMMARY | 2025-08-21 14:50 | XMS_ITS ---
Author Organization [employer] Address 75 [facility] 7t [place] [address] Care Team Providers Care Pellet Post Inspector Name Role Phone Nupur Weir Primary Care Provider Abel Chavarria RN Unavailable [phone] Isabell Maldonado Unavailable Willi Deleon MD Unavailable Sultana Garcia NP Unavailable Fidencio Vila MD Unavailable [phone] Complex Status:Outreach In Progress (Enrolling) Start date:08/03/2025 Enrollment reason:ADT Feed Overview ED- Pt went to [facility] ED on 08/02/25. Case Team Name Relationship Phone Abel Chavarria RN(Responsible Staff) Registered Nurse [phone] Continued Care and Services Coordination
--- OUTSIDE RECORDS SUMMARY | 2025-08-21 14:50 | XMS_ITS | Encounter Summary ---
Author Organization [employer] Address [address] [facility] [address] 7t [place] [address] Care Team Providers Care Docketing Specialist Name Role Phone Nupur Weir Primary Care Provider Abel Chavarria RN Unavailable [phone] Margareth Chavarria Unavailable Abel Chavarria RN Unavailable [phone] Isabell Maldonado Unavailable Willi Deleon MD Unavailable Sultana Garcia NP Unavailable Fidencio Vila MD Unavailable [phone] Reason for Visit * Reason Comments Med Refill Encounter Details Date Type Department Care Team (Late st Contact Info) Description 02/11/2024 Refill [facility] MEDICINE 230 [place], [place] [phone] Marcella Colindres MD 230 [place], [place] [phone] Gastritis medicamentosa Social History Tobacco Use Types [...] Description 09/21/2025 3:30 PM EST Office Visit [facility] ADULT DENTAL [address] [place] [address] Angel Lagos, DMD 230 [place] [address] 09/28/2025 9:30 AM EST Medication Management [facility] MEDICINE [address] [place] [address] Fay Leigh, PharmD 230 [place] [address] 10/23/2025 11:00 AM EST Office Visit [facility] MEDICINE [address] [place] [address] 11/26/2025 8:45 AM EDT Office Visit [facility] ADULT DENTAL [address] [place] [phone] Laura Posey 230 [place] [address] documented as of this encounter Visit Diagnoses Diagnosis Gastritis medicamentosa Other specified gastritis without mention of hemorrhage documented in this encounter Care Teams Docketing Specialist Relationship Specialty Start Date End Date Nupur Weir ANP 230 [place] [address] PCP - General Family Medicine 01/16/20 Abel Chavarria, ILENE 505 [place] [address] Registered Nurse Family Medicine 02/26/25 06/18/25 Margareth Chavarria 02/26/25 06/21/25 Abel Chavarria RN 505 [place] [address] Registered Nurse Family Medicine 08/03/25 Isabell Maldonado 08/03/25 Willi Deleon MD [address] [place] [address] Cardiology 08/14/25 Sultana Garcia NP [address] [place] [address] [address] [place] [address] Urology 08/14/25 Fidencio Vila MD [address] [place] [address] [address] [place] [phone] Gastroenterology 08/14/25 documented as of this encounter
--- OUTSIDE RECORDS SUMMARY | 2025-08-21 14:50 | XMS_ITS ---
Author Organization [employer] Address 75 [facility] 7t [place] [address] Care Team Providers Care Administration Specialist Name Role Phone Nupur Weir Primary Care Provider Abel Chavarria RN Unavailable [phone] Isabell Maldonado Unavailable Willi Deleon MD Unavailable [phone] Sultana Garcia NP Unavailable Fidencio Vila MD Unavailable CHW Complex Status:Outreach In Progress (Enrolling) Start date:08/03/2025 Enrollment reason:ADT Feed Overview ED- Pt went to [facility] ED on 08/02/25. Please outreach for enrollment. Case Team Name Relationship Phone Isabell Maldonado(Responsible Staff) [phone] Continued Care and Services Coordination
--- OUTSIDE RECORDS SUMMARY | 2025-08-21 14:50 | XMS_ITS | Encounter Summary ---
Author Organization [employer] Address 75 [facility] 7t [place] [address] Care Team Providers Care Cleaner Industrial Name Role Phone Nupur Weir Primary Care Provider [phone] Abel Chavarria RN Unavailable [phone] Margareth Chavarria Unavailable Abel Chavarria RN Unavailable [phone] Isabell Maldonado Unavailable Willi Deleon MD Unavailable Sultana Garcia NP Unavailable Fidencio Vila MD Unavailable Reason for Visit * Reason Comments Med Refill Encounter Details Date Type Department Care Team (Late st Contact Info) Description 02/11/2024 Refill [facility] MEDICINE 230 [place], [place] [phone] Nupur Weir ANP 230 [place] [address] Social History Tobacco Use Types Packs/Day Years [...] Description 09/21/2025 3:30 PM EST Office Visit [facility] ADULT DENTAL [address] [place] [address] Angel Lagos, DMD 230 [place] [address] 09/28/2025 9:30 AM EST Medication Management [facility] MEDICINE [address] [place] [address] Fay Leigh, PharmD 230 [place] [address] 10/23/2025 11:00 AM EST Office Visit [facility] MEDICINE [address] [place] [address] 11/26/2025 8:45 AM EDT Office Visit [facility] ADULT DENTAL [address] [place] [address] Laura Posey 230 [place] [address] documented as of this encounter Visit Diagnoses Not on filedocumented in this encounter Care Teams Cleaner Industrial Relationship Specialty Start Date End Date Nupur Weir ANP 230 [place] [address] PCP - General Family Medicine 01/16/20 Abel Chavarria, ILENE 505 [place] [address] Registered Nurse Family Medicine 02/26/25 06/18/25 Margareth Chavarria 02/26/25 06/21/25 Abel Chavarria RN 505 [place] [address] Registered Nurse Family Medicine 08/03/25 Isabell Maldonado 08/03/25 Willi Deleon MD [address] [place] [address] Cardiology 08/14/25 Sultana Garcia NP [address] [place] [address] [address] [place] [address] Urology 08/14/25 Fidencio Vila MD [address] [place] [address] [address] [place] [address] Gastroenterology 08/14/25 documented as of this encounter
--- OUTSIDE RECORDS SUMMARY | 2025-08-21 14:50 | XMS_ITS | Encounter Summary ---
Author Organization [employer] Address [address] [facility] [address] 7t [place] [address] Care Team Providers Care Director Of Strategic Marketing Name Role Phone Carmella Nupur RENAE Primary Care Provider [phone] Abel Chavarria RN Unavailable [phone] Isabell Maldonado Unavailable Willi Deleon MD Unavailable [phone] Sultana Garcia NP Unavailable Fidencio Vila MD Unavailable [phone] Encounter Details Date Type Department Care Team (Latest Contact Info) Description 08/21/2025 Travel Social History Tobacco Use Types Packs/Day [...] Description 09/21/2025 3:30 PM EST Office Visit [facility] ADULT DENTAL [address] [place] [address] Angel Lagos, DMD [address] [place] [address] 09/28/2025 9:30 AM EST Medication Management [facility] [address] [place] [address] Fay Leigh, PharmD [address] [place] [address] 10/23/2025 11:00 AM EST Office Visit [address] [address] 11/26/2025 8:45 AM EDT Office Visit [facility]ULT [facility] [address] [place] [address], [place] [address] Laura Posey 230 [place] [address] documented as of this encounter Visit Diagnoses Not on filedocumented in this encounter Additional Health Concerns Assessment Noted Time PHQ-9 Depression Total Score: 17 0814/2 025 10:08 AM EDT documented as of this encounter Care Teams Director Of Strategic Marketing Relationship Specialty Start Date End Date Nupur Weir ANP 230 [place] [address] PCP - General Family Medicine 01/16/20 Abel Chavarria, ILENE [address] [place] [address] Registered Nurse Family Medicine 08/03/25 Isabell Maldonado 08/03/25 Willi Deleon MD 5[address] [place] [address] Cardiology 08/14/25 Sultana Garcia NP [address] [place] [address] Drive [address] [place] [address] Urology 08/14/25 Fidencio Vila MD [address] [place] [address] [address] [place] [phone] Gastroenterology 08/14/25 documented as of this encounter
--- OUTSIDE RECORDS SUMMARY | 2025-08-21 14:50 | XMS_ITS | Encounter Summary ---
Author Organization [employer] Address 75 [facility] 7t [place] [address] Care Team Providers Care Offshore Diver Name Role Phone Nupur Weir Primary Care Provider Abel Chavarria RN Unavailable [phone] Margareth Chavarria Unavailable Abel Chavarria RN Unavailable [phone] Isabell Maldonado Unavailable Willi Deleon MD Unavailable Sultana Garcia NP Unavailable Fidencio Vial MD Unavailable [phone] Reason for Visit * Reason Comments Med Refill Encounter Details Date Type Department Care Team (Late st Contact Info) Description 09/19/[address] [facility] MEDICINE 230 [place], [place] [phone] Nupur Weir ANP 230 [place] [address] Constipation, unspecified constipation type Social History Tobacco [...] PM EST Office Visit [facility] ADULT DENTAL [address] [place] [address] Angel Lagos, DMD 230 [place] [address] 09/28/2025 9:30 AM EST Medication Management [facility] MEDICINE [address] [place] [address] Fay Leigh, PharmD 230 [place] [address] 10/23/2025 11:00 AM EST Office Visit [facility] MEDICINE [address] [place] [address] 11/26/2025 8:45 AM EDT Office Visit [facility] ADULT DENTAL [address] [place] [address] Laura Posey 230 [place] [address] documented as of this encounter Visit Diagnoses Diagnosis Constipation, unspecified constipation type documented in this encounter Care Teams Offshore Diver Relationship Specialty Start Date End Date Nupur Weir ANP 230 [place] [address] PCP - General Family Medicine 01/16/20 Abel Chavarria, ILENE 505 [place] [address] Registered Nurse Family Medicine 02/26/25 06/18/25 Margareth Chavarria 02/26/25 06/21/25 Abel Chavarria, ILENE 505 [place] [address] Registered Nurse Family Medicine 08/03/25 Isabell Maldonado 08/03/25 Willi Deleon MD [address] [place] [address] Cardiology 08/14/25 Sultana Garcia NP [address] [place] [address] Drive [address] [place] [address] Urology 08/14/25 Fidencio Vila MD [address] [place] [address] [address] [place] [phone] Gastroenterology 08/14/25 documented as of this encounter
--- OUTSIDE RECORDS SUMMARY | 2025-08-21 14:50 | XMS_ITS | Encounter Summary ---
Author Organization [employer] Address [address] [facility] [address] 7t [place] [address] Care Team Providers Care Equipment Processor Name Role Phone Nupur Weir Primary Care Provider [phone] Margareth Chavarria Unavailable Abel Chavarria RN Unavailable [phone] Isabell Maldonado Unavailable Willi Deleon MD Unavailable Sultana Garcia NP Unavailable Fidencio Vila MD Unavailable Reason for Visit * Reason Comments Med Refill Encounter Details Date Type Department Care Team (Late st Contact Info) Description 06/19/2025 Refill [facility] MEDICINE 230 [place], [place] [phone] Nupur Weir ANP 230 [place] [address] Arthralgia, unspecified joint Social History Tobacco Use [...] 3:30 PM EST Office Visit [facility] ADULT DENTAL [address] [place] [address] Angel Lagos, DMD [address] [place] [address] 09/28/2025 9:30 AM EST Medication Management [facility] MEDICINE [address] [place] [address] Fay Leigh, PharmD 230 [place] [address] 10/23/2025 11:00 AM EST Office Visit [facility] MEDICINE [address] [place] [address] 11/26/2025 8:45 AM EDT Office Visit [facility] ADULT DENTAL [address] [place] [address] Laura Psoey [address] [place] [address] documented as of this encounter Visit Diagnoses Diagnosis Arthralgia, unspecified joint documented in this encounter Additional Health Concerns Assessment Noted Time PHQ-9 Depression Total Score: 17 025 10:08 AM EDT documented as of this encounter Care Teams Equipment Processor Relationship Specialty Start Date End Date Nupur Weir ANP 230 [place] [address] PCP - General Family Medicine 01/16/20 Margareth Chavarria 02/26/25 06/21/25 Abel Chavarria, ILENE [address] [place] [address] Registered Nurse Family Medicine 08/03/25 Isabell Maldonado 08/03/25 Willi Deleon MD 6 [place] [address] Cardiology 08/14/25 Sultana Garcia NP [address] [place] [address] Drive [address] [place] [address] Urology 08/14/25 Fidencio Vila MD [address] [place] [address] [address] [place] [phone] Gastroenterology 08/14/25 documented as of this encounter
--- OUTSIDE RECORDS SUMMARY | 2025-08-21 14:50 | XMS_ITS | Encounter Summary ---
Author Organization [employer] Address [address] 7t [place] [address] Care Team Providers Care Professor Of Journalism Name Role Phone Nupur Weir Primary Care Provider [phone] Abel Chavarria RN Unavailable [phone] Margareth Chavarria Unavailable Abel Chavarria RN Unavailable Isabell Maldonado Unavailable Willi Deleon MD Unavailable [phone] Sultana Garcia NP Unavailable Fidencio Vila MD Unavailable Reason for Visit * Reason Onset Date Comments Medication Question 06/18/2025 Encounter Details Date Type Department Care Team (Late st Contact Info) Description 06/18/2025 Telephone [facility] MEDICINE [address] [place], [place] [phone] Nupur Weir ANP [address] [place], [place] [phone] Medication Question Social History Tobacco Use Types [...] Description 09/21/2025 3:30 PM EST Office Visit [facility] ADULT DENTAL [address] [place] [address] Angel Lagos, DMD 230 [place] [address] 09/28/2025 9:30 AM EST Medication Management [facility] MEDICINE [address] [place] [address] Fay Leigh, PharmD 230 [place] [address] 10/23/2025 11:00 AM EST Office Visit [address] [address] 11/26/2025 8:45 AM EDT Office Visit [facility] ADULT DENTAL [address] [place] [address] Laura Posey 230 [place] [address] documented as of this encounter Visit Diagnoses Not on filedocumented in this encounter Additional Health Concerns Assessment Noted Time PHQ-9 Depression Total Score: 17 08/ 025 10:08 AM EDT documented as of this encounter Care Teams Professor Of Journalism Relationship Specialty Start Date End Date Nupur Weir ANP 230 [place] [address] PCP - General Family Medicine 01/16/20 Abel Chavarria RN 505 [facility] [place] [address] Registered Nurse Family Medicine 02/26/25 06/18/25 Margareth Chavarria 02/26/25 06/21/25 Abel Chavarria RN 505 [facility] [place] [address] Registered Nurse Family Medicine 08/03/25 Isabell Maldonado 08/03/25 Willi Deleon MD 596 [place] [address] Cardiology 08/14/25 Sultana Garcia NP [address] [place] [address] Drive [address] [place] [address] Urology 08/14/25 Fidencio Vila MD [address] [place] [address] [address] [place] [phone] Gastroenterology 08/14/25 documented as of this encounter
--- OUTSIDE RECORDS SUMMARY | 2025-08-21 14:50 | XMS_ITS | Encounter Summary ---
Author Organization [employer] Address [address] 7t [place] [address] Care Team Providers Care Electric Crane Operator Name Role Phone Nupur Weir Primary Care Provider [phone] Abel Chavarria RN Unavailable [phone] Isabell Maldonado Unavailable Willi Deleon MD Unavailable [phone] Sultana Garcia NP Unavailable Fidencio Vila MD Unavailable Encounter Details Date Type Department Care Team (Late st Contact Info) Description 07/30/2025 Telephone [facility] MEDICINE [address] [place] [address] Nupur Weir ANP 230 [place] [address] Social History Tobacco Use Types Packs/Day Years [...] Description 09/21/2025 3:30 PM EST Office Visit [facility] ADULT DENTAL [address] [place] [address] Angel Lagos, DMD [address] [place] [address] 09/28/2025 9:30 AM EST Medication Management [facility] MEDICINE [address] [place] [address] Fay Leigh, PharmD 230 [place] [address] 10/23/2025 11:00 AM EST Office Visit [facility] MEDICINE [address] [place] [address] 11/26/2025 8:45 AM EDT Office Visit [facility] ADULT DENTAL [address] [place] [address] Laura Posey [address] [place] [address] documented as of this encounter Visit Diagnoses Diagnosis Constipation, unspecified constipation type documented in this encounter Additional Health Concerns Assessment Noted Time PHQ-9 Depression Total Score: 17 025 10:08 AM EDT documented as of this encounter Care Teams Electric Crane Operator Relationship Specialty Start Date End Date Nupur Weir ANP 230 [place] [address] PCP - General Family Medicine 01/16/20 Abel Chavarria RN 505 [place] [address] Registered Nurse Family Medicine 08/03/25 Isabell Maldonado 08/03/25 Willi Deleon MD 5[address] [place] [address] Cardiology 08/14/25 Sultana Garcia NP [address] [place] [address] Drive [address] [place] [address] Urology 08/14/25 Fidencio Vila MD [address] [place] [address] [address] [place] [phone] Gastroenterology 08/14/25 documented as of this encounter
--- OUTSIDE RECORDS SUMMARY | 2025-08-21 14:50 | XMS_ITS | Encounter Summary ---
Author Organization [employer] Address [address] [facility] 7t [place] [address] Care Team Providers Care Home School Liaison Officer Name Role Phone Nupur Weir Primary Care Provider [phone] Abel Chavarria RN Unavailable [phone] Isabell Maldonado Unavailable Willi Deleon MD Unavailable Sultana Garcia NP Unavailable Fidencio Vila MD Unavailable Reason for Visit * Reason Comments Med Refill Encounter Details Date Type Department Care Team (Late st Contact Info) Description 08/16/2025 Refill [facility] MED & PEDS [address] [place] [address] Nupur Weir ANP 230 [place] [address] Other specified hypothyroidism Social History Tobacco Use [...] [facility] ADULT DENTAL [address] [place] [address] Angel Lagos, DMD [address] [place] [address] 09/28/2025 9:30 AM EST Medication Management [facility] MEDICINE [address] [place] [address] Fay Leigh, PharmD 230 [place] [address] 10/23/2025 11:00 AM EST Office Visit [facility] MEDICINE [address] [place] [address] 11/26/2025 8:45 AM EDT Office Visit [facility] ADULT DENTAL [address] [place] [address] Laura Posey [address] [place] [address] documented as of this encounter Visit Diagnoses Diagnosis Other specified hypothyroidism documented in this encounter Additional Health Concerns Assessment Noted Time PHQ-9 Depression Total Score: 17 025 10:08 AM EDT documented as of this encounter Care Teams Home School Liaison Officer Relationship Specialty Start Date End Date Nupur Weir ANP 230 [place] [address] PCP - General Family Medicine 01/16/20 Abel Chavarria RN [address] [place] [address] Registered Nurse Family Medicine 08/03/25 Isabell Maldonado 08/03/25 Willi Deleon MD 596 [place] [address] Cardiology 08/14/25 Sultana Garcia NP [address] [place] [address] Drive [address] [place] [address] Urology 08/14/25 Fidencio Vila MD [address] [place] [address] [address] [place] [phone] Gastroenterology 08/14/25 documented as of this encounter
--- OUTSIDE RECORDS SUMMARY | 2025-08-21 14:50 | XMS_ITS | Encounter Summary ---
Author Organization [employer] Address [address] [facility] 7t [place] [address] Care Team Providers Care Supervisor General Name Role Phone Nupur Weir Primary Care Provider [phone] Abel Chavarria RN Unavailable [phone] Margareth Chavarria Unavailable Abel Chavarria RN Unavailable [phone] Isabell Maldonado Unavailable Willi Deleon MD Unavailable Sultana Garcia NP Unavailable Fidencio Vila MD Unavailable [phone] Reason for Visit * Reason Onset Date Comments rs no show appt 11/30/2024 Encounter Details Date Type Department Care Team (Late st Contact Info) Description 11/30/2024 Telephone [facility] ADULT DENTAL 230 [place], [place] [phone] Taty, Laura [address] [place], [place] [phone] rs no show appt Social History Tobacco [...] Description 09/21/2025 3:30 PM EST Office Visit [facility] ADULT DENTAL [address] [place] [address] Angel Lagos, DMD 230 [place] [address] 09/28/2025 9:30 AM EST Medication Management [address] [address] Fay Leigh, PharmD 230 [place] [address] 10/23/2025 11:00 AM EST Office Visit [address] [address] 11/26/2025 8:45 AM EDT Office Visit [facility] ADULT DENTAL 230 [place] [address] Laura Posey 230 [place] [address] documented as of this encounter Visit Diagnoses Not on filedocumented in this encounter Care Teams Supervisor General Relationship Specialty Start Date End Date Nupur Weir ANP [address] [place] [address] PCP - General Family Medicine 01/16/20 Abel Chavarria RN 505 [place], [place] Registered Nurse Family Medicine 02/26/25 06/18/25 Margareth Chavarria 02/26/25 06/21/25 Abel Chavarria RN [address] [place], [place] Registered Nurse Family Medicine 08/03/25 Isabell Maldonado 08/03/25 Willi Deleon MD 596 [place] [address] Cardiology 08/14/25 Sultana Garcia NP [address] [place] [address] [address] [place] [address] Urology 08/14/25 Fidencio Vila MD [address] [place] [address] [address] [place] [address] Gastroenterology 08/14/25 documented as of this encounter
--- OUTSIDE RECORDS SUMMARY | 2025-08-21 14:51 | XMS_ITS | Encounter Summary ---
Author Organization [employer] Address [address] [facility] 7t [place] [address] Care Team Providers Care Masonry Contractor Administrator Name Role Phone Nupur Weir Primary Care Provider Abel Chavarria RN Unavailable [phone] Isabell Maldonado Unavailable Willi Deleon MD Unavailable [phone] Sultana Garcia NP Unavailable Fidencio Vila MD Unavailable [phone] Reason for Visit * Reason Onset Date Comments Med Refill 07/10/2025 Encounter Details Date Type Department Care Team (Late st Contact Info) Description 07/10/[address] [facility] MED & PEDS [address] [place], [place] [phone] Nupur Weir ANP 230 [place] [address] Back pain, unspecified back location, unspecified back [...] Description 09/21/2025 3:30 PM EST Office Visit [facility] ADULT DENTAL 230 [place] [address] Angel Lagos, DMD [address] [place] [address] 09/28/2025 9:30 AM EST Medication Management [facility] MEDICINE [address] [place] [address] Fay Leigh PharmD 230 [place] [address] 10/23/2025 11:00 AM EST Office Visit [facility] MEDICINE [address] [place] [address] 11/26/2025 8:45 AM EDT Office Visit [facility] ADULT DENTAL [address] [place] [address] Taty, Laura [address] [place] [address] documented as of this encounter Visit Diagnoses Diagnosis Back pain, unspecified back location, unspecified back pain laterality, unspecified chronicity documented in this encounter Additional Health Concerns Assessment Noted Time PHQ-9 Depression Total Score: 17 025 10:08 AM EDT documented as of this encounter Care Teams Masonry Contractor Administrator Relationship Specialty Start Date End Date Nupur Weir ANP [address] [place] [address] PCP - General Family Medicine 01/16/20 Abel Chavarria, ILENE [address] [place] [address] Registered Nurse Family Medicine 08/03/25 Isabell Maldonado 08/03/25 Willi Deleon MD 5[address] [place] [address] Cardiology 08/14/25 Sultana Garcia NP [address] [place] [address] Drive [address] [place] [address] Urology 08/14/25 Fidencio Vila MD [address] [place] [address] [address] [place] [phone] Gastroenterology 08/14/25 documented as of this encounter
--- OUTSIDE RECORDS SUMMARY | 2025-08-21 14:51 | XMS_ITS | Patient Health Record ---
Author Organization [facility] Address [address] [place] [address] Care Team Providers Care Property Consultant Name Role Phone MICHAEL YANEZ N.P. Primary Care Provider Fidencio Langley Jr Unavailable Allergies Allergen (clinical drug ingredient) Drug/Non Drug Allergy documented on EMR Reaction Allergy Type Onset Date Status fentanyl fentaNYL Unknown Drug Allergy Active Results Component Value Reference Range Flag Notes Complete Blood Count no Diff Reviewed date:08/02/2025 11:06:20 AM Interpretation: Performing Lab:[facility], [address] [place] [phone] Notes/Report: White Blood Count 5.1 4.8-10.8 X10*3/uL N Red Blood Count 4.61 4.20-5.50 X10*6/uL N Hemoglobin 13.3 12.0-16.0 g/dl N Hematocrit 41.0 37.0-47.0 % N Mean Corpuscular Volume 88.9 80.0-98.0 fL N Mean Corpuscular Hemoglobin 28.9 27.0-33.0 pg N Mean Corpuscular HGB Conc 32.4 31.0-35.0 g/dl N Red Cell Distribution Width 14.3 11.0-16.0 % N Platelet Count 287 160-400 X10*3/uL N Mean Platelet Volume 8.3 9.4-12.3 fL L NRBC Pct Auto 0.0 0.0-0.2 /100WBC N NRBC Abs Auto 0.000 0.0-0.012 X10*3/uL N Liver Panel Reviewed date:08/02/2025 11:06:20 AM Interpretation: Performing Lab:[facility], [address] [place] [phone] Notes/Report: Bilirubin Total 0.6 0.0-1.0 mg/dL N Bilirubin Direct 0.2 0.0-0.5 mg/dL N Aspartate Amino Transferase 18 5-31 U/L N Alanine Aminotransferase 17 0-31 U/L N Total Protein 6.6 6.5-8.0 g/dL N Albumin Level 4.1 3.5-5.0 g/dL N Alkaline Phosphatase 97 39-117 U/L N Lipase Reviewed date:08/02/2025 11:06:10 AM Interpretation: Performing Lab:[facility], [address] [place] [phone] Notes/Report: Lipase 15 8-78 U/L N TSH reflex Free T4 Reviewed date:08/02/2025 11:06:20 AM Interpretation: Performing Lab:[facility], [address] [place] [phone] Notes/Report: TSH reflex Free T4 0.94 0.32-4.0 uIU/mL N Reason For Referral Referring Provider First Name MICHAEL Referring Provider Last Name BEAU Huber Referred Organization [facility] Referred Provider Fidencio Vila Jr Referred Address [address] [place] [phone], Referred Provider Specialty Gastroentero logy General Notes Sarah Posey 2024 03:34:27 PM >requested a [facility] referral from [facility] for visit with Dr. Vila on 07-18-25 Clinical Notes Sarah Posey 2024 09:14:45 AM >REQUESTED REFERRAL AGAIN Referral Priority Routine Medications Medication SIG (Take, Route, Frequency, Duration) Notes Start Date End Date Status Vitamin B12 Active Pantoprazole Sodium 40 MG Tablet Delayed Release TAKE 1 TABLET BY MOUTH EVERY DAY Orally Once a day; Duration: 90 days Active Cyclobenzaprine HCl prn Active Levothyroxine Sodium [...] 1000units Active ProAir HFA 8.5gm Act jermain Gabapentin 100 MG Capsule TAKE 1 CAPSULE [...] Status Risk Notes Problem Colon cancer screening (551031209) Colon cancer screening (Z12.11) Active confirmed Problem Rectal bleeding (06961028) Rectal bleeding (K62.5) Active confirmed Problem Epigastric pain (74869782) Epigastric pain (R10.13) Active confirmed Problem Dysphagia (96935050) Dysphagia (R13.10) Active confirmed Problem Elevated liver enzymes level (812501026) Elevated LFTs (R79.89) Active confirmed Problem Gastroesophageal reflux disease without esophagitis (692672192) Gastroesophageal reflux disease without esophagitis (K21.9) Active confirmed Problem Dysphagia (15206741) Dysphagia, unspecified type (R13.10) Active confirmed Vital Signs Temperature 98.0 degrees Fahrenheit 07/18/2025 Blood pressure diastolic 01 mm Hg 07/18/2025 Height 64.5 in 07/18/2025 Blood pressure systolic 001 mm Hg 07/18/2025 Weight 137.2 lbs 07/18/2025 BMI 23.18 kg/m2 07/18/2025 Encounters Encounter Location Date Provider Diagnosis [facility] [address] [place] [phone] 07/18/2025 Fidencio Vila Jr Weight loss R63.4 and Abdominal pain R10.9 [facility] [address] [place] [address] 07/18/2025 [facility]ana [facility] [address] [place] [address] 07/31/2025 Fidencio Vila Jr [facility] [address] [place] [address] 08/02/2025 Fidencio Vila Jr Assessments Encounter Date Diagnosis [...] COLONOSCOPY 12/01/2023 Next Appt Details Provider Name:Fidencio Sandoval Gageerika rosenbergtadeo Kapoor, 07/22/2026 10:00:00 AM, [address], [address], [place], [address], Insurance Providers Payer Name Payer Address Payer Phone Subscriber Number Group Number Insured Name Patient Relationship to Insured Coverage Start Date Coverage End Date MEDICAID OF [facility] [address] [place] [address] [id number] TAY TYLER Self - patient is the [...] partial hysterectomy tonsillectomy cancer in uterus [phone] Laparoscopic bypass surgery 11/14 removed two cyst removed fro m right shouder and outer colon =dr. jones
--- OUTSIDE RECORDS SUMMARY | 2025-08-21 14:51 | XMS_ITS | Encounter Summary ---
Author Organization [employer] Address [address] [facility] 7t [place] [address] Care Team Providers Care Grinder Mill Operator Name Role Phone Nupur Weir Primary Care Provider [phone] Abel Chavarria RN Unavailable [phone] Margareth Chavarria Unavailable Abel Chavarria RN Unavailable [phone] Isabell Maldonado Unavailable Willi Deleon MD Unavailable [phone] Sultana Garcia NP Unavailable Fidencio Vila MD Unavailable [phone] Reason for Visit * Reason Comments Med Refill Encounter Details Date Type Department Care Team (Late st Contact Info) Description 12/22/2024 Refill [facility] MEDICINE [address] [place] [address] Nupur Weir ANP [address] [place] [address] Arthralgia, unspecified joint Social History Tobacco Use [...] Description 09/21/2025 3:30 PM EST Office Visit [facility] ADULT DENTAL [address] [place] [address] Angel Lagos, CAPRI [address] [place] [address] 09/28/2025 9:30 AM EST Medication Management [facility] MEDICINE [address] [place] [address] Fay Leigh PharmD [address] [place] [address] 10/23/2025 11:00 AM EST Office Visit [facility] MEDICINE [address] [place] [address] 11/26/2025 8:45 AM EDT Office Visit [facility] ADULT DENTAL [address] [place] [address] Taty, Laura [address] [place] [address] documented as of this encounter Visit Diagnoses Diagnosis Arthralgia, unspecified joint documented in this encounter Care Teams Grinder Mill Operator Relationship Specialty Start Date End Date Nupur Weir ANP [address] [place] [address] PCP - General Family Medicine 01/16/20 Abel Chavarria RN 505 [place] [address] Registered Nurse Family Medicine 02/26/25 06/18/25 Margareth Chavarria 02/26/25 06/21/25 Abel Chavarria RN 505 [place] [address] Registered Nurse Family Medicine 08/03/25 Isabell Maldonado 08/03/25 Willi Deleon MD [address] [place] [address] Cardiology 08/14/25 Sultana Garcia NP [address] [place] [address] Urology 08/14/25 Fidencio Vila MD [address] [place] [address] [address] [place] [address] Gastroenterology 08/14/25 documented as of this encounter
--- OUTSIDE RECORDS SUMMARY | 2025-08-21 14:51 | XMS_ITS | Encounter Summary ---
Author Organization [employer] Address [address] [facility] 7t [place] [address] Care Team Providers Care Systems Test Analyst Name Role Phone Nupur Weir Primary Care Provider [phone] Abel Chavarria RN Unavailable [phone] Margareth Chavarria Unavailable Abel Chavarria RN Unavailable [phone] Isabell Maldonado Unavailable Willi Deleon MD Unavailable Sultana Garcia NP Unavailable Fidencio Vila MD Unavailable Reason for Visit * Reason Comments Med Refill Encounter Details Date Type Department Care Team (Late st Contact Info) Description 11/11/2023 Refill [facility] MEDICINE 230 [place], [place] [phone] Nupur Weir ANP 230 [place] [address] Social History Tobacco Use Types Packs/Day Years [...] 3:30 PM EST Office Visit [facility] ADULT DENTAL [address] [place] [address] Angel Lagos, DMD 230 [place] [address] 09/28/2025 9:30 AM EST Medication Management [facility] MEDICINE [address] [place] [address] Fay Leigh, PharmD 230 [place] [address] 10/23/2025 11:00 AM EST Office Visit [facility] MEDICINE [address] [place] [address] 11/26/2025 8:45 AM EDT Office Visit [facility] ADULT DENTAL [address] [place] [address] Laura Posey 230 [place] [address] documented as of this encounter Visit Diagnoses Not on filedocumented in this encounter Care Teams Systems Test Analyst Relationship Specialty Start Date End Date Nupur Weir ANP 230 [place] [address] PCP - General Family Medicine 01/16/20 Abel Chavarria, ILENE 505 [place] [address] Registered Nurse Family Medicine 02/26/25 06/18/25 Margareth Chavarria 02/26/25 06/21/25 Abel Chavarria RN 505 [place] [address] Registered Nurse Family Medicine 08/03/25 Isabell Maldonado 08/03/25 Willi Deleon MD [address] [place] [address] Cardiology 08/14/25 Sultana Garcia NP [address] [place] [address] Drive [address] [place] [address] Urology 08/14/25 Fidencio Vila MD [address] [place] [address] [address] [place] [phone] Gastroenterology 08/14/25 documented as of this encounter
--- OUTSIDE RECORDS SUMMARY | 2025-08-21 14:51 | XMS_ITS | Encounter Summary ---
Author Organization [employer] Address [address] [facility] 7t [place] [address] Care Team Providers Care Associate Dean Name Role Phone Nupur Weir Primary Care Provider [phone] Abel Chavarria RN Unavailable [phone] Margareth Chavarria Unavailable Abel Chavarria RN Unavailable [phone] Isabell Maldonado Unavailable Willi Deleon MD Unavailable Sultana Garcia NP Unavailable Fidencio Vila MD Unavailable Reason for Visit * Reason Onset Date Comments Med Refill 07/26/2024 Encounter Details Date Type Department Care Team (Late st Contact Info) Description 07/26/2024 Telephone [facility] MEDICINE [address] [place], [place] [phone] Nupur Weir ANP 230 [place], [place] [phone] Med Refill Social History Tobacco Use Types [...] 50 MG tablet To be sent to: [id number] - [place], [place] - [address] [facility] documented in this encounter Plan of Treatment Upcoming Encounters Date Type Department Care Team (Late st Contact Info) Description 09/21/2025 3:30 PM EST Office Visit [facility] ADULT DENTAL [address] [place] [address] Angel Lagos, DMD [address] [place] [address] 09/28/2025 9:30 AM EST Medication Management [address] [address] Fay Leigh, PharmD 230 [place] [address] 10/23/2025 11:00 AM EST Office Visit [address] [address] 11/26/2025 8:45 AM EDT Office Visit [facility] ADULT DENTAL 230 [place] [address] Taty, Laura [address] [place] [address] documented as of this encounter Visit Diagnoses Not on filedocumented in this encounter Care Teams Associate Dean Relationship Specialty Start Date End Date Nupur Weir ANP [address] [place] [address] PCP - General Family Medicine 01/16/20 Abel Chavarria RN [address] [facility] [place] [address] Registered Nurse Family Medicine 02/26/25 06/18/25 Margareth Chavarria 02/26/25 06/21/25 Abel Chavarria RN 505 [place] [address] Registered Nurse Family Medicine 08/03/25 Isabell Maldonado 08/03/25 Willi Deleon MD [address] [place] [address] Cardiology 08/14/25 Sultana Garcia NP [address] [place] [address] [address] [place] [address] Urology 08/14/25 Fidencio Vila MD [address] [place] [address] [address] [place] [address] Gastroenterology 08/14/25 documented as of this encounter
--- OUTSIDE RECORDS SUMMARY | 2025-08-21 14:51 | XMS_ITS | Encounter Summary ---
Author Organization [employer] Address 75 [facility] 7t [place] [address] Care Team Providers Care Performance Solutions Specialist Name Role Phone Nupur Weir Primary Care Provider [phone] Abel Chavarria RN Unavailable [phone] Margareth Chavarria Unavailable Abel Chavraria RN Unavailable [phone] Isabell Maldonado Unavailable Willi Deleon MD Unavailable Sultana Garcia NP Unavailable Fidencio Vila MD Unavailable Encounter Details Date Type Department Care Team (Late st Contact Info) Description 08/14/2022 Abstract [facility] [address] [place] [address] Angel Lagos, DMD 230 [place] [address] Social History Tobacco Use Types Packs/Day Years [...] 09/21/2025 3:30 PM EST Office Visit [facility] 230 [place] [address] Angel Lagos, DMD 230 [place] [address] 09/28/2025 9:30 AM EST Medication Management [address] [address] Fay Leigh, PharmD 230 [place] [address] 10/23/2025 11:00 AM EST Office Visit [address] [address] 11/26/2025 8:45 AM EDT Office Visit [facility] [address] [place] [address] Laura Posey 230 [place] [address] documented as of this encounter Visit Diagnoses Not on filedocumented in this encounter Care Teams Performance Solutions Specialist Relationship Specialty Start Date End Date Nupur Weir ANP [address] [place] [address] PCP - General Family Medicine 01/16/20 Abel Chavarria RN 505 [place] [address] Registered Nurse Family Medicine 02/26/25 06/18/25 Margareth Chavarria 02/26/25 06/21/25 Abel Chavarria RN 505 [place] [address] Registered Nurse Family Medicine 08/03/25 Isabell Maldonado 08/03/25 Willi Deleon MD 596 [place] [address] Cardiology 08/14/25 Sultana Garcia NP [address] [place] [address] [address] [place] [address] Urology 08/14/25 Fidencio Vila MD [address] [place] [address] [address] [place] [phone] Gastroenterology 08/14/25 documented as of this encounter
--- OUTSIDE RECORDS SUMMARY | 2025-08-21 14:51 | XMS_ITS | Encounter Summary ---
Author Organization [employer] Address [address] [facility] [address] 7t [place] [address] Care Team Providers Care Aerial Hurricane Hunter Name Role Phone Nupur Weir Primary Care Provider [phone] Abel Chavarria RN Unavailable [phone] Margareth Chavarria Unavailable Abel Chavarria RN Unavailable [phone] Isabell Maldonado Unavailable Willi Deleon MD Unavailable Sultana Garcia NP Unavailable Fidencio Vila MD Unavailable [phone] Encounter Details Date Type Department Care Team (Late st Contact Info) Description 07/05/2024 Telephone [facility] 230 [place] [address] Yarelis Rosales DDS 230 [place] [address] Social History Tobacco Use Types Packs/Day Years [...] Shameka Simons - 07/05/2024 10:56 AM EST Md doctor flip Patient called she went her pharmacy and her medication was not there. Can we send her prescriptions to her pharmacy thank you . documented in this encounter Plan of Treatment Upcoming Encounters Date Type Department Care Team (Late st Contact Info) Description 09/21/2025 3:30 PM EST Office Visit [facility] 230 [place] [address] Angel Lagos, DMD 230 [place] [address] 09/28/2025 9:30 AM EST Medication Management [address] [address] Fay Leigh PharmD 230 [place] [address] 10/23/2025 11:00 AM EST Office Visit [address] [address] 11/26/2025 8:45 AM EDT Office Visit [facility] [address] [place] [address] Taty, Laura 230 [place] [address] documented as of this encounter Visit Diagnoses Not on filedocumented in this encounter Care Teams Aerial Hurricane Hunter Relationship Specialty Start Date End Date Nupur Weir ANP [address] [place] [address] PCP - General Family Medicine 01/16/20 Abel Chavarria, ILENE 505 [place] [address] Registered Nurse Family Medicine 02/26/25 06/18/25 Margareth Chavarria 02/26/25 06/21/25 Abel Chavarria, ILENE 505 [place] [address] Registered Nurse Family Medicine 08/03/25 Isabell Maldonado 08/03/25 Willi Deleon MD 5[address] [place] [address] Cardiology 08/14/25 Sultana Garcia NP [address] [place] [address] Urology 08/14/25 Fidencio Vila MD [address] [place] [address] [address] [facility] [place] [address] Gastroenterology 08/14/25 documented as of this encounter
--- OUTSIDE RECORDS SUMMARY | 2025-08-21 14:51 | XMS_ITS | Encounter Summary ---
Author Organization [employer] Address 75 [facility] 7t [place] [address] Care Team Providers Care Plant Manager Name Role Phone Nupur Weir Primary Care Provider [phone] Abel Chavarria RN Unavailable [phone] Margareth Chavarria Unavailable Abel Chavarria RN Unavailable [phone] Isabell Maldonado Unavailable Willi Deleon MD Unavailable [phone] Sultana Garcia NP Unavailable Fidencio Vila MD Unavailable [phone] Encounter Details Date Type Department Care Team (Latest Contact Info) Description 03/26/2022 Abstract [facility] Dental, Provider, DDS Social History Tobacco [...] Care Team ( st Contact Info) Description 09/21/2025 3:30 PM EST Office Visit [facility] 230 [place] [address] Angel Lagos, CAPRI [address] [place] [address] 09/28/2025 9:30 AM EST Medication Management [address] [address] Fay Leigh PharmD 230 [place] [address] 10/23/2025 11:00 AM EST Office Visit [facility] [address] [place] [address] 11/26/2025 8:45 AM EDT Office Visit [facility] [address] [place] [address] Taty, Laura 230 [place] [address] documented as of this encounter Visit Diagnoses Not on filedocumented in this encounter Care Teams Plant Manager Relationship Specialty Start Date End Date Nupur Weir ANP [address] [place] [address] PCP - General Family Medicine 01/16/20 Abel Chavarria RN 505 [place] [address] Registered Nurse Family Medicine 02/26/25 06/18/25 Margareth Chavarria 02/26/25 06/21/25 Abel Chavarria, RN 505 [place] [address] Registered Nurse Family Medicine 08/03/25 Isabell Maldonado 08/03/25 Willi Deleon MD 6 [place] [address] Cardiology 08/14/25 Sultana Garcia NP [address] [place] [address], [place] [address] Urology 08/14/25 Fidencio Vila MD [address] [place] [address] [address] [place] [address] Gastroenterology 08/14/25 documented as of this encounter
--- OUTSIDE RECORDS SUMMARY | 2025-08-21 14:51 | XMS_ITS | Encounter Summary ---
Author Organization [employer] Address 75 [facility] [address] 7t [place] [address] Care Team Providers Care Community Assistant Name Role Phone Nupur Weir Primary Care Provider [phone] Abel Chavarria RN Unavailable [phone] Margareth Chavarria Unavailable Abel Chavarria RN Unavailable [phone] Isabell Maldonado Unavailable Willi Deleon MD Unavailable Sultana Garcia NP Unavailable Fidencio Vila MD Unavailable [phone] Reason for Visit * Reason Comments Med Refill Encounter Details Date Type Department Care Team (Late st Contact Info) Description 03/22/2024 Refill [facility] [address] [place], [place] [phone] Marcella Colindres MD 230 [place], [place] [phone] Acute pyelonephritis Social History Tobacco Use Types [...] Description 09/21/2025 3:30 PM EST Office Visit [facility] [address] [place] [address] Angel Lagos, DMD 230 [place] [address] 09/28/2025 9:30 AM EST Medication Management [facility] [address] [place] [address] Fay Leigh, PharmD 230 [place] [address] 10/23/2025 11:00 AM EST Office Visit [facility] [address] [place] [address] 11/26/2025 8:45 AM EDT Office Visit [facility] [address] [place] [address] Laura Posey 230 [place] [address] documented as of this encounter Visit Diagnoses Diagnosis Acute pyelonephritis 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 documented in this encounter Care Teams Community Assistant Relationship Specialty Start Date End Date Nupur Weir ANP 230 [place] [address] PCP - General Family Medicine 01/16/20 Abel Chavarria, RN 505 [place] [address] Registered Nurse Family Medicine 02/26/25 06/18/25 Margareth Chavarria 02/26/25 06/21/25 Abel Chavarria, ILENE 505 [place] [address] Registered Nurse Family Medicine 08/03/25 Isabell Maldonado 08/03/25 Willi Deleon MD 6 [place] [address] Cardiology 08/14/25 Sultana Garcia NP [address] [place] [address] [address] [place] [address] Urology 08/14/25 Fidencio Vila MD [address] [place] [address] [address] [place] [address] Gastroenterology 08/14/25 documented as of this encounter
--- OUTSIDE RECORDS SUMMARY | 2025-08-21 14:51 | XMS_ITS | Encounter Summary ---
Author Organization [employer] Address [address] [facility] [address] 7t [place] [address] Care Team Providers Care Sap Technical Developer Name Role Phone Nupur Weir Primary Care Provider [phone] Abel Chavarria RN Unavailable [phone] Margareth Chavarria Unavailable Abel Chavarria RN Unavailable [phone] Isabell Maldonado Unavailable Willi Deleon MD Unavailable Sultana Garcia NP Unavailable Fidencio Vila MD Unavailable [phone] Encounter Details Date Type Department Care Team (Late st Contact Info) Description 04/05/2025 Orders Only [facility] [address] [place], [place] [phone] Jaleel Block MD 230 [place], [place] [phone] Right-sided chest pain (Primary Dx); Hemoptysis Social [...] Description 09/21/2025 3:30 PM EST Office Visit [facility] [address] [place] [address] Angel Lagos, CAPRI [address] [place] [address] 09/28/2025 9:30 AM EST Medication Management [facility] [address] [place] [address] Fay Leigh PharmD 230 [place] [address] 10/23/2025 11:00 AM EST Office Visit [facility] [address] [place] [address] 11/26/2025 8:45 AM EDT Office Visit [facility] [address] [place] [address] Taty, Laura [address] [place] [address] documented as of this encounter Procedures Procedure Name Priority Date/Time Associated Diagnosis Comments CULTURE, URINE, ROUTINE Routine 04/05/2025 12:00 AM EDT Right-sided chest pain documented in this encounter Results * Culture, Urine, Routine (04/05/2025 12:00 AM EDT) Urine Urine specimen obtained by clean catch procedure / Unknown 04/05/2025 04/05/2025 Comment:[facility] - 04/06/2025 10:53 AM EDT Urine Culture No growth. Specimen Source: Urine clean catch us Generic External Data Provider LAB MICROBIOLOGY - GENERAL ORDERABLES Final Result [facility] [address] [place] [address] [phone] documented in this encounter Visit Diagnoses Diagnosis Right-sided chest pain- Primary Hemoptysis documented in this encounter Additional Health Concerns Assessment Noted Time PHQ-9 Depression Total Score: 7 03/15/20 25 3:29 PM EDT documented as of this encounter Care Teams Sap Technical Developer Relationship Specialty Start Date End Date Nupur Weir ANP 230 [place] [address] PCP - General Family Medicine 01/16/20 Abel Chavarria RN [address] [place] [address] Registered Nurse Family Medicine 02/26/25 06/18/25 Margareth Chavarria 02/26/25 06/21/25 Abel Chavarria, RN [address] [place] [address] Registered Nurse Family Medicine 08/03/25 Isabell Maldonado 08/03/25 Willi Deleon MD [address] [place] [address] Cardiology 08/14/25 Sultana Garcia NP [address] [place] [address] [address] [place] [address] Urology 08/14/25 Fidencio Vila MD [address] [place] [address] [address] [place] [phone] Gastroenterology 08/14/25 documented as of this encounter
--- OUTSIDE RECORDS SUMMARY | 2025-08-21 14:51 | XMS_ITS | Encounter Summary ---
Author Organization [employer] Address 75 [facility] 7t [place] [address] Care Team Providers Care Food Tray Assembler Name Role Phone Nupur Weir Primary Care Provider [phone] Abel Chavarria RN Unavailable [phone] Margareth Chavarria Unavailable Abel Chavarria RN Unavailable [phone] Isabell Maldonado Unavailable Willi Deleon MD Unavailable Sultana Garcia NP Unavailable Fidencio Vila MD Unavailable Reason for Visit * Reason Comments Med Refill Encounter Details Date Type Department Care Team (Late st Contact Info) Description 07/22/2024 Refill [facility] MED[facility]INE [address] [place] [address] Nupur Weir ANP [address] [place] [address] Social History Tobacco Use Types Packs/Day Years [...] 3:30 PM EST Office Visit [facility] ADULT DENTAL [address] [place] [address] Angel Lagos, CAPRI [address] [place] [address] 09/28/2025 9:30 AM EST Medication Management [facility] MED[facility] [address] [place] [address] Fay Leigh PharmD 230 [place] [address] 10/23/2025 11:00 AM EST Office Visit [facility] MED[facility]INE [address] [place] [address] 11/26/2025 8:45 AM EDT Office Visit [facility] ADULT [facility] [address] [place] [address] Taty, Laura [address] [place] [address] documented as of this encounter Visit Diagnoses Not on filedocumented in this encounter Care Teams Food Tray Assembler Relationship Specialty Start Date End Date Nupur Weir ANP 230 [place] [address] PCP - General Family Medicine 01/16/20 Abel Chavarria RN 505 [place] [address] Registered Nurse Family Medicine 02/26/25 06/18/25 Margareth Chavarria 02/26/25 06/21/25 Abel Chavarria RN 505 [place] [address] Registered Nurse Family Medicine 08/03/25 Isabell Maldonado 08/03/25 Willi Deleon MD 596 [place] [address] Cardiology 08/14/25 Sultana Garcia NP [address] [place] [address] Drive [address] [place] [address] Urology 08/14/25 Fidencio Vila MD [address] [place] [address] [address] [place] [address] Gastroenterology 08/14/25 documented as of this encounter
--- OUTSIDE RECORDS SUMMARY | 2025-08-21 14:51 | XMS_ITS | Encounter Summary ---
Author Organization [employer] Address [address] [facility] [address] 7t [place] [address] Care Team Providers Care On Site Services Specialist Name Role Phone Nupur Weir Primary Care Provider [phone] Abel Chavarria RN Unavailable [phone] Margareth Chavarria Unavailable Abel Chavarria RN Unavailable [phone] Isabell Maldonado Unavailable Willi Deleon MD Unavailable [phone] Sultana Garcia NP Unavailable Fidencio Vila MD Unavailable Encounter Details Date Type Department Care Team (Late st Contact Info) Description 04/11/2024 Orders Only [facility] 230 [place] [address] Nupur Weir ANP 230 [place] [address] Social History Tobacco Use Types Packs/Day Years [...] 3:30 PM EST Office Visit [facility] [address] [place] [address] Angel Lagos, CAPRI 230 [place] [address] 09/28/2025 9:30 AM EST Medication Management [facility] [address] [place] [address] Fay Leigh, PharmD 230 [place] [address] 10/23/2025 11:00 AM EST Office Visit [address] [address] 11/26/2025 8:45 AM EDT Office Visit [facility] [address] [place] [address] Laura Posey 230 [place], [place] documented as of this encounter Visit Diagnoses Not on filedocumented in this encounter Care Teams On Site Services Specialist Relationship Specialty Start Date End Date Nupur Weir ANP 230 [place] [address] PCP - General Family Medicine 01/16/20 Abel Chavarria, ILENE 505 [place] [address] Registered Nurse Family Medicine 02/26/25 06/18/25 Margareth Chavarria 02/26/25 06/21/25 Abel Chavarria, ILENE 505 [place] [address] Registered Nurse Family Medicine 08/03/25 Isabell Maldonado 08/03/25 Willi Deleon MD 6 [place] [address] Cardiology 08/14/25 Sultana Garcia NP [address] [place] [address] Drive [address] [place] [address] Urology 08/14/25 Fidencio Vila MD [address] [place] [address] [address] [place] [phone] Gastroenterology 08/14/25 documented as of this encounter
--- OUTSIDE RECORDS SUMMARY | 2025-08-21 14:51 | XMS_ITS | Encounter Summary ---
Author Organization [employer] Address 75 [facility] 7t [place] [address] Care Team Providers Care Recruiter Coordinator Name Role Phone Nupur Weir Primary Care Provider [phone] Abel Chavarria RN Unavailable [phone] Margareth Chavarria Unavailable Abel Chavarria RN Unavailable [phone] Isabell Maldonado Unavailable Willi Deleon MD Unavailable [phone] Sultana Garcia NP Unavailable Fidencio Vila MD Unavailable Reason for Visit * Reason Onset Date Comments Med Refill 12/22/2024 Encounter Details Date Type Department Care Team (Late st Contact Info) Description 12/22/2024 Telephone [facility] 230 [place], [place] [phone] Nupur Weir ANP 230 [place], [place] [phone] Med Refill Social History Tobacco Use Types [...] 50 MG tablet To be sent to: [facility] - [place], [place] - [address] documented in this encounter Plan of Treatment Upcoming Encounters Date Type Department Care Team (Late st Contact Info) Description 09/21/2025 3:30 PM EST Office Visit [facility] [address] [place] [address] Yolis Angel, DMD 230 [place] [address] 09/28/2025 9:30 AM EST Medication Management [address] [address] Fay Leigh, PharmD [address] [place] [address] 10/23/2025 11:00 AM EST Office Visit [address] [address] 11/26/2025 8:45 AM EDT Office Visit [facility] [address] [place] [address] Laura Posey 230 [place] [address] documented as of this encounter Visit Diagnoses Not on filedocumented in this encounter Care Teams Recruiter Coordinator Relationship Specialty Start Date End Date Nupur Weir ANP [address] [place] [address] PCP - General Family Medicine 01/16/20 Abel Chavarria RN 505 [place] [address] Registered Nurse Family Medicine 02/26/25 06/18/25 Margareth Chavarria 02/26/25 06/21/25 Abel Chavarria RN [address] [place], [place] Registered Nurse Family Medicine 08/03/25 Isabell Maldonado 08/03/25 Willi Deleon MD 5[address] [place] [address] Cardiology 08/14/25 Sultana Garcia NP [address] [place] [address] [address] [place] [address] Urology 08/14/25 Fidencio Vila MD [address] [place] [address] [address] [place] [address] Gastroenterology 08/14/25 documented as of this encounter
--- OUTSIDE RECORDS SUMMARY | 2025-08-21 14:51 | XMS_ITS | Encounter Summary ---
Author Organization [employer] Address 75 [facility] 7t [place] [address] Care Team Providers Care Upkeep Mechanic Name Role Phone Nupur Weir Primary Care Provider [phone] Abel Chavarria RN Unavailable [phone] Margareth Chavarria Unavailable Abel Chavarria RN Unavailable [phone] Isabell Maldonado Unavailable Willi Deleon MD Unavailable [phone] Sultana Garcia NP Unavailable Fidencio Vila MD Unavailable Reason for Visit * Reason Comments Med Refill Encounter Details Date Type Department Care Team (Late st Contact Info) Description 12/21/2024 Refill [facility] 230 [place] [address] Nupur Weir ANP 230 [place] [address] Arthralgia, unspecified joint Social History Tobacco Use [...] Description 09/21/2025 3:30 PM EST Office Visit [facility] 230 [place] [address] Angel Lagos, CAPRI [address] [place] [address] 09/28/2025 9:30 AM EST Medication Management [facility] 230 [place] [address] Fay Leigh PharmD 230 [place] [address] 10/23/2025 11:00 AM EST Office Visit [facility] [address] [place] [address] 11/26/2025 8:45 AM EDT Office Visit [facility] [address] [place] [address] Taty, Laura [address] [place] [address] documented as of this encounter Visit Diagnoses Diagnosis Arthralgia, unspecified joint documented in this encounter Care Teams Upkeep Mechanic Relationship Specialty Start Date End Date Nupur Weir ANP 230 [place] [address] PCP - General Family Medicine 01/16/20 Abel Chavarria RN 505 [place] [address] Registered Nurse Family Medicine 02/26/25 06/18/25 Margareth Chavarria 02/26/25 06/21/25 Abel Chavarria RN 505 [place] [address] Registered Nurse Family Medicine 08/03/25 Isabell Maldonado 08/03/25 Willi Deleon MD 596 [place] [address] Cardiology 08/14/25 Sultana Garcia NP [address] [facility] [address] [place] [address] Urology 08/14/25 Fidencio Vila MD [address] [place] [address] [address] [place] [address] Gastroenterology 08/14/25 documented as of this encounter
--- OUTSIDE RECORDS SUMMARY | 2025-08-21 14:51 | XMS_ITS | Encounter Summary ---
Author Organization [employer] Address 75 [facility] 7t [place] [address] Care Team Providers Care Forest Scientist Name Role Phone Nupur Weir Primary Care Provider [phone] Abel Chavarria RN Unavailable Margareth Chavarria Unavailable Abel Chavarria RN Unavailable [phone] Isabell Maldonado Unavailable Willi Deleon MD Unavailable Sultana Garcia NP Unavailable Fidencio Vila MD Unavailable [phone] Encounter Details Date Type Department Care Team (Late st Contact Info) Description 07/30/2022 Abstract [facility] [address] [place] [address] Dental, Provider, DDS Social History Tobacco Use [...] Description 09/21/2025 3:30 PM EST Office Visit [facility] [address] [place], [place] [phone] Angel Lagos, DMD [address] [place] [address] 09/28/2025 9:30 AM EST Medication Management [address] [address] Fay Leigh, PharmD 230 [place], [place] 10/23/2025 11:00 AM EST Office Visit [facility] [address] [place] [address] 11/26/2025 8:45 AM EDT Office Visit [facility] [address] [place] [address] Taty, Laura [address] [place], [place] documented as of this encounter Procedures Procedure [...] on filedocumented in this encounter Care Teams Forest Scientist Relationship Specialty Start Date End Date Nupur Weir ANP [address] [place] [address] PCP - General Family Medicine 01/16/20 Abel Chavarria RN [address] [place] [address] Registered Nurse Family Medicine 02/26/25 06/18/25 Margareth Chavarria 02/26/25 06/21/25 Abel Chavarria, RN 505 [place] [address] Registered Nurse Family Medicine 08/03/25 Isabell Maldonado 08/03/25 Willi Deleon MD 5[address] [place] [address] Cardiology 08/14/25 Sultana Garcia NP [address] [place] [address] Drive [address] [place] [address] Urology 08/14/25 Fidencio Vila MD [address] [place] [address] [address] [place] [phone] Gastroenterology 08/14/25 documented as of this encounter
--- OUTSIDE RECORDS SUMMARY | 2025-08-21 14:51 | XMS_ITS | Encounter Summary ---
Author Organization [employer] Address [address] [facility] [address] [place] [address] Care Team Providers Care Picture Enlarger Name Role Phone Nupur Weir Primary Care Provider [phone] Abel Chavarria RN Unavailable [phone] Margareth Chavarria Unavailable Abel Chavarria RN Unavailable [phone] Isabell Maldonado Unavailable Willi Deleon MD Unavailable Sultana Garcia NP Unavailable Fidencio Vila MD Unavailable Reason for Visit * Reason Onset Date Comments Med Refill 10/01/2023 Encounter Details Date Type Department Care Team (Late st Contact Info) Description 10/01/2023 Telephone [facility] MEDICINE [address] [place], [place] [phone] Nupur Weir ANP [address] [place], [place] [phone] Med Refill Social History Tobacco Use Types [...] Base) MCG/ACT inhaler To be sent to: [id number] [address] [facility] documented in this encounter Plan of Treatment Upcoming Encounters Date Type Department Care Team (Late st Contact Info) Description 09/21/2025 3:30 PM EST Office Visit [facility] ADULT DENTAL [address] [place] [address] Angel Lagos, DMD [address] [place] [address] 09/28/2025 9:30 AM EST Medication Management [facility] MEDICINE [address] [place] [address] Fay Leigh, Elba [address] [place] [address] 10/23/2025 11:00 AM EST Office Visit [facility] [address] [place] [address] 11/26/2025 8:45 AM EDT Office Visit [facility] ADULT DENTAL [address] [place] [address] Taty, Laura [address] [place] [address] documented as of this encounter Visit Diagnoses Not on filedocumented in this encounter Care Teams Picture Enlarger Relationship Specialty Start Date End Date Nupur Weir ANP [address] [place] [id number] PCP - General Family Medicine 01/16/20 Abel Chavarria RN [address] [place] [address] Registered Nurse Family Medicine 02/26/25 06/18/25 Margareth Chavarria 02/26/25 06/21/25 Abel Chavarria RN [address] [place] [address] Registered Nurse Family Medicine 08/03/25 Isabell Maldonado 08/03/25 Willi Deleon MD [address] [place] [address] Cardiology 08/14/25 Sultana Garica NP [address] [place] [id number] Urology 08/14/25 Fidencio Vila MD [address] [place] [address] [address] [place] [phone] Gastroenterology 08/14/25 documented as of this encounter
--- OUTSIDE RECORDS SUMMARY | 2025-08-21 14:51 | XMS_ITS | Clinical Summary ---
Author Organization [employer] Address [address] [facility] [address] [place] [address] Care Team Providers Care Jukebox Checker Name Role Phone Michael Yanez Primary Care Provider [phone] Abel Chavarria RN Unavailable [phone] Isabell Maldonado Unavailable Willi Deleon MD Unavailable Sultana Garcia NP Unavailable Fidencio Vila MD Unavailable [phone] Allergies Active Allergy Reactions Criticality Noted Date [...] morning and 1 tablet in the evening. Active clotrimazole (Lotrimin) 1 % creamIndications: Intertrigo Apply twice daily for 14-28d to navel area 30 g 025 Active Cholecalciferol (Vitamin D3) 125 MCG (5000 UT) chewable tablet Chew 1 tablet Once per day. otc Active polyethylene glycol, PEG, 3350 (MiraLax) 17 GM/SCOOP powderIndications :Constipation, unspecified constipation type Take 17 g by mouth Once daily as needed (constipation). 510 g Active polycarbophil (FiberCon) 625 MG tabletIndications :Constipation, unspecified constipation type Take 1 tablet (625 mg) by mouth Once per day. 90 tablet 3 08/02/20 25 6:07 PM EST 025 2025 Active hydrocortisone (Anusol-HC) 2.5 % [...] NEEDED FOR CONSTIPATION 180 tablet 1 Active naloxone (Narcan) 4 mg/0.1 mL nasal sprayIndications: Long-term current use of opiate analgesic Administer 1 spray (4 mg) into affected nostril(s) if needed for opioid reversal. May repeat every 2-3 minutes if needed, alternating nostrils, until medical assistance becomes available. 2 each 2 025 2025 Active cyclobenzaprine (Flexeril) 10 MG tablet Take 1 tablet (10 mg) by mouth at bedtime for 10 days. 10 tablet Active tiZANidine (Zanaflex) 2 MG tablet Take [...] crush, chew, or split. 45 tablet 1 08/02/20 25 6:06 PM EST 025 Active fluticasone (Flonase) 50 MCG/ACT nasal spray SPRAY 2 SPRAYS IN EACH NOSTRIL ONCE DAILY 16 g 1 08/02/20 25 6:07 PM EST 025 Active ibuprofen 400 MG tablet Take [...] MOUTH ONCE DAILY 30 tablet 025 Active gabapentin (Neurontin) 100 MG capsuleIndication s:Arthralgia, unspecified joint TAKE 1 CAPSULE BY MOUTH AT NOON, EVENING, AND BEDTIME 90 capsule 2 08/02/20 25 6:07 PM EST Active SUMAtriptan Succinate 4 MG/0.5ML solution auto-injectorIndi [...] EVERY 8 HOURS NEEDED FOR SEVERE PAIN 84 tablet 08/16/20 10:47 AM EST Active valACYclovir (Valtrex) 500 MG tabletIndications :History of herpes simplex type 2 infection Take 1 tab twice daily; start at first sign of herpes recurrence 6 tablet 08/16/20 10:47 AM EST Active levothyroxine (Synthroid, Levoxyl) 25 MCG tabletIndications :Other specified hypothyroidism TAKE 1 TABLET BY MOUTH EVERY MORNING BEFORE BREAKFAST 90 tablet 1 Active atovaquone-progua nil (Malarone) 250-100 MG tabletIndications :Need for malaria prophylaxis Begin 1 - 2 days before travel, take 1 tab daily during travel and for 7 days after leaving. 28 tablet 025 2024 Discontinued(T herapy completed) levothyroxine (Synthroid, Levoxyl) 25 MCG tabletIndications :Other specified hypothyroidism TAKE 1 TABLET BY MOUTH EVERY MORNING BEFORE BREAKFAST 90 tablet 1 025 2024 Discontinued SUMAtriptan Succinate 4 MG/0.5ML solution auto-injectorIndi cations:Migraine with aura and without status migrainosus, not intractable ADMINISTER 0.5 ML UNDER THE SKIN ONCE NEEDED FOR MIGRAINE. CAN REPEAT ONCE IN 1 HOUR IF NOT EFFECTIVE. 1 mL 2 025 2024 Discontinued(R eorder (will not trigger notification to Pharmacy)) traMADol (Ultram) 50 MG tabletIndications :Back pain, unspecified back location, unspecified back pain laterality, unspecified chronicity Take 1 tablet (50 mg) by mouth every 8 (eight) hours if needed for severe pain for up to 28 days. 84 tablet 11/12/20 25 11:51 AM EST 025 2024 Discontinued Active Problems Problem Noted Date Diagnosed Date History of herpes simplex type 2 infection 08/14 Overview (08/14/2025): as above; consider suppressive therapy pending recurrence Moderate major depression (CMS/HCC) 04/11/2025 Acute bursitis [...] Q8H PRN Indication: arthralgia, lumbar spondylosis Last POLYMER SPECIALIST Agreement: 12/01/24 Specification Writer tier 2 q 3 mo Assessment & [...] Pill count as expected. UTOX unexpected. See core java engineer. Send out MTD and BZO confirmatory. Possible [...] organization. 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 (Primary Dx) 08/21/2025 Travel 08/16/2025 Refill [facility] [address] [place] [address] Michael Yanez ANP Other specified hypothyroidism 08/14/2025 9:15 AM EST Office Visit [facility] [address] [place] [address] Michael Yanez ANP Herpes simplex type 2 infection (Primary Dx); Primary hypertension; History of herpes simplex type 2 infection 08/14/2025 Travel 08/14/2025 Refill [facility] [address] [place] [address] Michael Yanez ANP Back pain, unspecified back location, unspecified back pain laterality, unspecified chronicity 08/13/2025 Patient Outreach [facility] [address] [place] [phone] Michael Yanez ANP Care Coordination (CM/CHW outreach) 08/13/2025 Telephone [facility] [address] [place] [phone] Michael Yanez ANP chart prep 08/10/2025 Patient Outreach [address] [address] Michael Yanez ANP Care Management (C3CM- initial assessment/ enrollment.) 08/09/2025 Refill [facility] [address] [place] [address] Michael Yanez ANP Migraine with aura and without status migrainosus, not intractable 08/07/2025 Telephone [facility] [address] [place] [address] Kassy Ramsey, ILENE 08/06/[address] [address] Michael Yanez ANP Appointment Request 08/06/[address] [address] Berkley Hinkle RN ER Follow-up 08/03/2025 Patient Outreach [address] [phone] Michael Yanez ANP Care Coordination (CM/CHW outreach) 08/03/2025 Patient Outreach [address] [address] Michael Yanez ANP Care Coordination (CHW chart Review) 08/03/2025 Patient Outreach [address] [address] Michael Yanez ANP Care Management (C3CM- chart review) 08/03/2025 Patient Outreach [address] [address] Michael Yanez ANP 07/30/[address] [address] Michael Yanez ANP 07/10/2025 9:45 AM EST Office Visit [address] [address] Anushka Gunter, KYLER Lumbar spondylosis (Primary Dx); Long-term current use of opiate analgesic 07/10/2025 Refill [facility] [address] [place] [address] Michael Yanez ANP Back pain, unspecified back location, unspecified back pain laterality, unspecified chronicity 07/10/2025 Refill [facility] [address] [place] [address] Kassy Ramsey, ILENE Back pain, unspecified back location, unspecified back pain laterality, unspecified chronicity 07/10/2025 Travel 07/02/2025 Orders Only GENERIC EXTERNAL DATA DEPARTMENT Provider, Generic External Data 07/02/[address] [address] Michael Yanez ANP Arthralgia, unspecified joint 06/21/2025 Patient Outreach [facility] [address] [place] [address] Michael Yanez ANP Care Coordination (C3/CHW KHUSHBU Edwards- Last Follow up-Graduated) 06/19/2025 Refill [facility] [address] [place] [address] Michael Yanez ANP Arthralgia, unspecified joint 06/19/2025 Refill [facility] [address] [place] [address] Jill Rivero MD Primary hypertension 06/18/2025 Refill [facility] [address] [place] [address] Kassy Ramsey RN Back pain, unspecified back location, unspecified back pain laterality, unspecified chronicity 06/18/2025 Telephone [facility] [address] [place] [address] Michael Yanez ANP Medication Question 06/18/2025 Patient Outreach [facility] [address] [place] [phone] Michael Yanez ANP Care Management ([facility]- f/u call) 06/17/2025 Refill [facility] [address] [place] [phone] Michael Yanez ANP 06/13/2025 Orders Only GENERIC EXTERNAL DATA DEPARTMENT Provider, Generic External Data 06/12/2025 9:45 AM EDT Office Visit [facility] [address] [place] [address] Anushka Gunter, FIT MODEL Lumbar spondylosis (Primary Dx); Long-term current use of opiate analgesic 06/12/[address] [phone] Chika Longo RN Back pain, unspecified back location, unspecified back pain laterality, unspecified chronicity (Primary Dx) 06/12/2025 Travel 06/07/2025 Patient Outreach [facility] [address] [place] [phone] Michael Yanez ANP Care Management (C3CM- f/u call lvm) 06/06/2025 Patient Outreach [address] [address] Michael Yanez ANP Care Coordination (C3/W KHUSHBU Edwards-Follow up) 06/05/2025 9:00 AM EDT Office Visit [facility] [address] [place] [phone] Jaleel Block MD Wound infection (Primary Dx) 06/05/[address] [address] Michael Yanez ANP Iron deficiency anemia, unspecified iron deficiency anemia type 05/31/[address] [address] Michael Yanez ANP dec recall 05/29/2025 Patient Outreach [address] [address] Michael Yanez ANP Care Management (C3- f/u call) 05/25/2025 10:00 AM EDT Office Visit [facility] [address] [place] [address] Cecilia Johnson DO Pain and swelling of right lower leg (Primary Dx); Subcutaneous mass; Long-term current use of opiate analgesic; Back pain, unspecified back location, unspecified back pain laterality, unspecified chronicity 05/25/2025 Results Follow-Up [address] [address] Michael Yanez ANP US VENOUS DUPLEX LE RT, US Extremity Non Vascular Complete Joint Right 05/25/2025 Orders Only [address] [address] Cecilia Johnson DO 05/25/2025 Travel 05/25/2025 Refill [facility] [address] [place] [address] Marcella Colindres MD 05/25/2025 Refill [facility] [address] [place] [address] Jaleel Block MD 05/23/2025 Patient Outreach [place] [address] [place] [address] Michael Yanez ANP Care Coordination (C3CM/CHW KHUSHBU Edwards- follow up call) 05/23/2025 Refill [facility] [address] [place] [address] Michael Yanez ANP Migraine with aura and without status migrainosus, not intractable from Last 3 Months Immunizations Immunization Administration Dates Next Due Hep A, Adult 01/12/2025 Hep B, adult 02/15/2008,10/26/2007,09/07/2007 Influenza injectable quadriv alent preservative free 09/01/2022,08/19/2021,07/12/2020,07/20,07/17/2018,06/10/2017,10/12/2016 Influenza, IIV3, injectable 05/25/2014, 2,05/07/2011 Influenza, Split (incl. [place] antigen) 05/11/2013 Influenza, seasonal, injecta ble, preservative free 07/21/2024 Pfizer Covid-19 Vaccine 12+ 01/12/2025(Deferred: Patient decision) Pneumococcal Conjugate PCV 20 12/15/2024 Pneumococcal Polysaccharide PPSV23 07/20/2018,,02/09/2014 TD (adult), 2 Lf tetanus tox oid, [...] Sign Reading Time Taken Comments Blood Pressure 130/86 08/14/2025 9:14 AM EST Pulse 73 08/14/2025 9:14 AM EST Temperature 36.2 C (97.1 F) 08/14/2025 9:14 AM EST Respiratory Rate 15 08/14/2025 9:14 AM EST Oxygen Saturation 98% 08/14/2025 9:14 AM EST Inhaled Oxygen Concentration - - Weight 63.2 kg (139 lb 6 oz) 08/14/2025 9:14 AM EST Height 165.1 cm (5' 5 ) 08/14/2025 9:14 AM EST Body Mass Index 23.19 08/14/2025 9:14 AM EST Plan of Treatment Upcoming Encounters Date Type Department Care Team (Late st Contact Info) Description 09/21/2025 3:30 PM EST Office Visit [facility] [address] [place] [address] Angel Lagos, DMD [address] [place] [address] 09/28/2025 9:30 AM EST Medication Management [facility] [address] [place] [address] Fay Leigh, PharmD [address] [place] [address] 10/23/2025 11:00 AM EST Office Visit [facility] [address] [place] [address] 11/26/2025 8:45 AM EDT Office Visit [facility] [address] [place] [address] Diego Poseyaris [address] [place] [address] Health Maintenance Due Date Last Done Comments [...] SDOH Screening 02/26/2026 02/26/2025 Alcohol/Substance Use Screening 08/14/2026 08/14/2025 Tobacco Screening 08/14/2026 08/14/2025 Lipid Panel 08/25/2029 08/25/2024, 12/08/2021 Colonoscopy 12/28/2033 12/29/2023, 04/2021, 07/01/2021 Colorectal Cancer Screening 12/28/2033 DTaP/Tdap/Td Vaccines (7 - Td or Tdap) 05/09/2035 05/09/2025, 07/12/2020, 08/17/2017, Additional history exists Hepatitis B Vaccines Completed 02/15/2008, 10/26/2007, 09/07/2007 Hepatitis C Screening Completed 09/09/2022 , 12/08/2021, 08/08/2020 HIV Screening Completed 01/04/2024, 08/30, 12/08/2021, Additional history exists Zoster Vaccines Completed 10/03/2024, 07/21/2024 Pneumococcal Vaccine: 50+ Years Completed 12/15/2024, 07/20/2018, 07/17/2018, Additional history exists COVID-19 Vaccine Discontinued Cervical Cancer Screening Discontinued [...] DRUG SCREEN Routine 08/21/2025 1:50 PM EST 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 Amphetamine Screen, Urine Negative Negative Barbiturate Screen, [...] - 08/21/2025 1:50 PM EST .UTOX cup Lot#[id number] Exp. 06/29/26 Internal Pass Control Anushka Gunter FIT MODEL POINT OF CARE TEST ENTER/EDIT ORDERABLES Final Result * Gross and Microscopic Level 3 (07/02/2025 10:53 AM EST) Only the most recent of2 resultswithin the time period is included. 07/02/2025 10:5 3 AM EST 07/03/2025 7:40 AM EST Narrative [facility] - 07/11/2025 11:20 AM EST ----- ------- Name: Gladys MelissaLaura Age/Sex: 60/F : 1965 Unit#: [id number] Attend Dr: Raffy Ramirez MD Re07/02/25 Status: DEP [facility] Disch: ----- ------- SPEC : [id number] RECD: 07/03/25 STATUS: CIELO PRICE NUM: [id number] ANGELA: 07/02/25-[address]: Raffy Ramirez MD ENTERED: 07/03/25 SP [...] intradepartmentally. Special studies ordered and performed at [facility]: Immunostains for pankeratin, muscle specific actin, CD34 and S100 on A1. Special studies ordered and performed at [facility]: Immunostains for D2-40 and HHV8 on A1. IHC S/NG Disclaimer NOTE: Unless otherwise stated, all tissue is formalin-fixed and paraffin-embedded. Some or all of the immunohistochemical tests reported herein may have been developed and their performance characteristics determined by [facility]. They have not been cleared or approved by the U.S. Food and Drug Administration (FDA). However, the FDA has determined that such clearance or approval is not necessary. This laboratory is CONTINUED ON NEXT PAGE ----- ------- Name: Laura Gonzalez Age/Sex: 60/F : 1965 Unit#: [id number] Attend Dr: Raffy Ramirez MD Re07/02/25 Status: [facility] REF Location: [facility] Disch: ----- ------- SPEC : [id number] RECD: 07/03/25 STATUS: CIELO ALBERT NUM: [id number] ANGELA: 07/02/25-1053 [facility] DR: Raffy Ramirez MD ENTERED: 07/03/25-0430 SP TYPE: Surgical OTHR DR: MICHAEL YANEZ NP ORDERED: Gross Micro L3, Cytokeratin, S 100, IHC, Add. immunos/3, Actin, CD34 COMMENTS: Block A sent to [facility] for HHV8 D240 IHC's on 07/05/25. IHC S/NG Disclaimer (Continued) certified under the Clinical Laboratory Improvement Amendments of 1988 (CLIA) as qualified to perform high complexity clinical laboratory testing. Copies To: Raffy Ramirez MD [facility] [address] [place] [address] MICHAEL YANEZ NP [address] [address] ----- ------- Signed (signature on file) Monse Banner 07/11/25 1120 ----- ------- END OF REPORT us Generic External Data Provider LAB CYTOLOGY MARÍA NAJERA Final Result [facility] [address] [place] [phone] * US Extremity Non Vascular Complete Joint Right (05/25/2025 4:17 PM EDT) Anatomical Region Laterality Modality Ultrasound 05/25/2025 4:17 PM EDT Narrative 05/25/2025 5:12 PM EDT [address] [address] Ultrasound Report Signed Patient: Laura Gonzalez MR#: [id number] : 1965 Acct:[id number] Age/Sex: 60 / F ADM Date: 05/25/25 Loc: HO.US Attending Dr: Cecilia Johnson DO Ordering Physician: Cecilia Johnson DO Date of Service: 05/25/25 Procedure(s): US Extremity Nonvas Comp JT RT Accession Number(s): [id number] cc: Cecilia Johnson DO; MICHAEL YANEZ NP [...] 05/25/25 1709 DD/ 1617 TD/TT: 05/25/25 1620 Farm Appraiser: Procedure Note Donotuseinterpreter, Image - 05/25/2025 [place] [address] Ultrasound Report Signed Patient: Aleksandar Gonzalez#: [id number] : 1965Acct:[id number] Age/Sex: 60 / FADM Date: 05/25/25 Loc: HO.US Attending Dr: Cecilia Johnson DO Ordering Physician: Cecilia Johnson DO Date of Service: 05/25/25 Procedure(s): US Extremity Nonvas Comp JT RT Accession Number(s): [id number] cc: Cecilia Johnson DO; MICHAEL YANEZ NP [...] 05/25/25 1709 DD/ 1617 TD/TT: 05/25/25 1620 Farm Appraiser: us Cecilia Johnson DO IMG US PROCEDURES Final Resu lt * US VENOUS DUPLEX LE RT (05/25/2025 4:01 PM EDT) Anatomical Region Laterality Modality Abdomen Ultrasound 05/25/2025 4:01 PM EDT Narrative 05/25/2025 4:44 PM EDT [place] [address] Ultrasound Report Signed Patient: Laura Gonzalez MR#: [id number] : 1965 Acct:[id number] Age/Sex: 60 / F ADM Date: 05/25/25 Loc: .US Attending Dr: Cecilia Johnson DO Ordering Physician: Cecilia Johnson DO Date of Service: 05/25/25 Procedure(s): US venous duplex LE RT Accession Number(s): [id number] cc: Cecilia Johnson DO; MICHAEL YANEZ NP [...] 05/25/25 1642 DD/ 1601 TD/TT: 05/25/25 1615 Farm Appraiser: Procedure Note Donotuseinterpreter, Image - 05/25/[address] [address] Ultrasound Report Signed Patient: Aleksandar Gonzalez#: [id number] : 1965Acct:[id number] Age/Sex: 60 / FADM Date: 05/25/25 Loc: .US Attending Dr: Cecilia Johnson DO Ordering Physician: Cecilia Johnson DO Date of Service: 05/25/25 Procedure(s): US venous duplex LE RT Accession Number(s): [id number] cc: Cecilia Johnson DO; MICHAEL YANEZ NP [...] 05/25/25 1642 DD/ 1601 TD/TT: 05/25/25 1615 Farm Appraiser: us Cecilia Patebevmariola DO [facility] US PROCEDURES Final Resu lt * BI Mammogram Screening Tomosynthesis Bilateral (02/05/2025 12:34 PM EDT) Anatomical Region Laterality Modality Breast Bilateral Mammography 02/05/2025 12:3 4 PM EDT Narrative 02/12/2025 2:54 PM EDT [facility] [address] [place], [place] [address] Mammography Report Signed Patient: Laura Graham MR#: [id number] 27 : 1965 Acct:[id number] Age/Sex: 60 / F ADM Date: 02/05/25 Loc: HO.MAMMO Attending Dr: Alex Machuca MD Ordering Physician: Alex Machuca MD Results: 2Benign Findings Date of Service: 02/05/25 Follow Up: 1 Year From Orig ina Mammogram Procedure(s): MM tomosynthesis screening BI Accession Number(s): [id number] cc: MICHAEL YANEZ GROUP FITNESS DEPARTMENT HEAD; Alex Machuca MD EXAMINATION: MM SCREENING DIGITAL [...] for their next mammogram. Electronically signed by: Kylegih Buenrostro DO 02/12/2025 02:51 PM EDT RP Dictated By: Kyleigh Buenrostro DO Signed By: <Electronically signed by Kyleigh Buenrostro DO in OV> 02/12/25 1451 DD/ 1234 TD/TT: 02/05/25 1248 Farm Appraiser: Procedure Note Donotuseinterpreter, Image - 02/12/2025 [facility] [address] [place] [address] Mammography Report Signed Patient: Aleksandar Graham#: [id number] 27 : 1965Acct:[id number] Age/Sex: 60 / FADM Date: 02/05/25 Loc: HO.MAMMO Attending Dr: Alex Machuca MD Ordering Physician: Alex Machuca MDResults: 2Benign Findings Date of Service: 02/05/25Follow Up: 1 Year From Orig inal Mammogram Procedure(s): MM tomosynthesis screening BI Accession Number(s): [id number] cc: MICHAEL YANEZ NP; Alex Machuca MD [...] 02/12/25 1451 DD/ 1234 TD/TT: 02/05/25 1248 Farm Appraiser: [facility] External Provider IMG BI PROCEDURES Final Result * (ABNORMAL) Lipid Panel, Standard (08/25/2024 10:00 AM EST) Triglycerides 61 <150 mg/dL [facility] Comment:Desirable Triglyceri de: less than 150 mg/dLBorderline High Triglyceride 150-199 mg/dLHigh Triglyceride: 200-499 mg/dLVery High Triglyceride: greater than or equal to 5OO mg/dL Cholesterol 173 <200 mg/dL [facility] Comment:Desirable Cholestero l: less than 200 mg/dLBorderline High Cholesterol: 200-239 mg/dLHigh Cholesterol: greater than 239 mg/dL LDL Cholesterol Calculated 105(H) <100 mg/dL [facility] Comment:Desirable LDL: less than 100 mg/dLNear Optimal/Above Optimal LDL: 110- 129 mg/dLBorderline High LDL: 130-159 mg/dLHigh LDL: 160-189 mg/dLVery High LDL: greater than or equal to 190 mg/dL HDL Cholesterol 56 >40 mg/dL [facility] Comment:Desirable HDL: great er than 40 mg/dL Note: This HDL assay may give artificially low results in patients with liver disease. 08/25/2024 10:0 0 AM EST 08/25/2024 11:37 AM EST [facility] LAB BLOOD ORDERABLES Final Resul t [facility] [address] [place] [address] [phone] * HIV-1/2 Antigen and Antibodies, Fourth Generation, with Reflexes (01/04/2024 9:49 AM EDT) HIV AB/AG Nonreactive Nonreactive [facility] Comment:HIV-1 p24 Ag and/or HIV-1/HIV-2 Ab not detected.A test result that is nonreactive does not exclude thepossibility of exposure to or infection with HIV-1 and/orHIV-2. Nonreactive results in this assay for individualswith prior exposure to HIV-1 and/or HIV-2 may be due toantigen and antibody levels that are below the limit ofdetection of this assay.The The [employer] HIV Ag/Ab Combo assay result andsupplemental assay results should be interpreted inconjunction with the patient's clinical presentation,history and other laboratory results. If the results areinconsistent with clinical evidence, additional testing issuggested to confirm the result. Blood Venous blood specimen / Unknown 01/04/2024 9:49 AM EDT 01/04/2024 11:50 AM EDT [facility] LAB BLOOD ORDERABLES Final Resul t Performing Organization Address [facility] de Phone Number [facility] [address] [place] [phone] * Hepatitis C Ab (09/09/2022 10:23 AM EST) Hepatitis C Antibody Nonreactive Nonreactive [facility] Comment:Antibodies to HCV no t detected; does not exclude early acuteHCV infection. 09/09/2022 10:2 3 AM EST 09/09/2022 10:23 AM EST [facility] External Provider LAB BLO OD ORDERABLES Final Result Performing Organization Address [facility] de Phone Number [facility] [address] [place] [phone] * Hm Colonoscopy (07/08/2021 12:15 PM EST) Colonoscopy Normal Normal Fidencio Vila MD HEALTH MAINTENANCE Edited Re sult - Final from Last 3 Months or Most Recently Relevant to Health Maintenance Insurance [facility] STAND ADULT [employer] Care Teams Jukebox Checker Relationship Specialty Start Date End Date Michael Yanez ANP [address] [place] [address] PCP - General Family Medicine 01/16/20 Abel Chavarria, ILENE [address] [place] [address] Registered Nurse Family Medicine 08/03/25 Isabell Maldonado 08/03/25 Willi Deleon MD [address] [place] [address] Cardiology 08/14/25 Sultana Garcia NP [address] [place] [address] Drive [address] [place] [address] Urology 08/14/25 Fidencio Vila MD [address] [place] [address] DR [address] [place] [address] Gastroenterology 08/14/25
--- OUTSIDE RECORDS SUMMARY | 2025-08-21 14:51 | XMS_ITS | Encounter Summary ---
Author Organization [employer] Address [address] [facility] 7t [place] [address] Care Team Providers Care Blintze Roller Name Role Phone Nupur Weir Primary Care Provider [phone] Abel Chavarria RN Unavailable [phone] Margareth Chavarria Unavailable Abel Chavarria RN Unavailable [phone] Isabell Maldonado Unavailable Willi Deleon MD Unavailable Sultana Garcia NP Unavailable Fidencio Vila MD Unavailable Reason for Visit * Reason Onset Date Comments Med Refill 05/14/2023 Encounter Details Date Type Department Care Team (Late st Contact Info) Description 05/14/2023 Telephone [facility] MEDICINE [address] [place], [place] [phone] Nupur Weir ANP [address] [place], [place] [phone] Med Refill Social History Tobacco Use Types [...] 09/21/2025 3:30 PM EST Office Visit [facility] ADULT DENTAL 230 [place] [address] Angel Lagos DMD 230 [place] [address] 09/28/2025 9:30 AM EST Medication Management [facility] MEDICINE [address] [place] [address] Fay Leigh, PharmD 230 [place] [address] 10/23/2025 11:00 AM EST Office Visit [address] [address] 11/26/2025 8:45 AM EDT Office Visit [facility] ADULT DENTAL 230 [place] [address] Laura Posey 230 [place] [address] documented as of this encounter Visit Diagnoses Not on filedocumented in this encounter Care Teams Blintze Roller Relationship Specialty Start Date End Date Nupur Weir ANP 230 [place] [address] PCP - General Family Medicine 01/16/20 Abel Chavarria, ILENE [address] [place] [address] [place] [address] Registered Nurse Family Medicine 02/26/25 06/18/25 Margareth Chavarria 02/26/25 06/21/25 Abel Chavarria, RN [address] [place] [address] Registered Nurse Family Medicine 08/03/25 Isabell Maldonado 08/03/25 Willi Deleon MD [address] [place] [address] Cardiology 08/14/25 Sultana Garcia NP [address] [place] [address] Drive [address] [place] [address] Urology 08/14/25 Fidencio Vila MD [address] [place] [address] DR [facility] [address] [place] [phone] Gastroenterology 08/14/25 documented as of this encounter
--- OUTSIDE RECORDS SUMMARY | 2025-08-21 14:51 | XMS_ITS | Encounter Summary ---
Author Organization [employer] Address [address] [facility] [address] 7t [place] [address] Care Team Providers Care Nuclear Unit Operator Name Role Phone Nupur Weir Primary Care Provider [phone] Abel Chavarria RN Unavailable [phone] Margareth Chavarria Unavailable Abel Chavarria RN Unavailable [phone] Isabell Maldonado Unavailable Willi Deleon MD Unavailable [phone] Sultana Garcia NP Unavailable Fidencio Vila MD Unavailable Reason for Visit * Reason Comments Med Refill Encounter Details Date Type Department Care Team (Late st Contact Info) Description 06/19/2024 Refill [facility] MEDICINE 230 [place] [address] Nupur Weir ANP 230 [place] [address] Other specified hypothyroidism Social History Tobacco Use [...] Description 09/21/2025 3:30 PM EST Office Visit [facility] ADULT DENTAL 230 [place] [address] Angel Lagos, DMD 230 [place] [address] 09/28/2025 9:30 AM EST Medication Management [facility] MEDICINE [address] [place] [address] Fay Leigh, PharmD 230 [place] [address] 10/23/2025 11:00 AM EST Office Visit [address] [address] 11/26/2025 8:45 AM EDT Office Visit [facility] ADULT DENTAL 230 [place] [address] Laura Posey 230 [place] [address] documented as of this encounter Visit Diagnoses Diagnosis Other specified hypothyroidism documented in this encounter Care Teams Nuclear Unit Operator Relationship Specialty Start Date End Date Nupur Weir ANP 230 [place] [address] PCP - General Family Medicine 01/16/20 Abel Chavarria, ILENE 505 [place] [address] Registered Nurse Family Medicine 02/26/25 06/18/25 Margareth Chavarria 02/26/25 06/21/25 Abel Chavarria RN 505 [place] [address] Registered Nurse Family Medicine 08/03/25 Isabell Maldonado 08/03/25 Willi Deleon MD [address] [place] [address] Cardiology 08/14/25 Sultana Garcia NP [address] [place] [address] Drive [address] [place] [address] Urology 08/14/25 Fidencio Vila MD [address] [place] [address] [address] [place] [phone] Gastroenterology 08/14/25 documented as of this encounter
--- OUTSIDE RECORDS SUMMARY | 2025-08-21 14:52 | XMS_ITS | Encounter Summary ---
Author Organization [employer] Address 75 [facility] 7t [place] [address] Care Team Providers Care Installment Account Checker Name Role Phone Nupur Weir Primary Care Provider Abel Chavarria RN Unavailable [phone] Margareth Chavarria Unavailable Abel Chavarria RN Unavailable [phone] Isabell Maldonado Unavailable Willi Deleon MD Unavailable [phone] Sultana Garcia NP Unavailable Fidencio Vila MD Unavailable Reason for Visit * Reason Comments Med Refill Encounter Details Date Type Department Care Team (Late st Contact Info) Description 03/11/2025 Refill [facility] MEDICINE 230 [place] [address] Nupur Weir ANP 230 [place] [address] Arthralgia, unspecified joint Social History Tobacco Use [...] Office Visit [facility] ADULT DENTAL 230 [place] [address] Angel Lagos, CAPRI 230 [place] [address] 09/28/2025 9:30 AM EST Medication Management [facility] MEDICINE 230 [place] [address] Fay Leigh PharmD 230 [place] [address] 10/23/2025 11:00 AM EST Office Visit [facility] MEDICINE 230 [place] [address] 11/26/2025 8:45 AM EDT Office Visit [facility] ADULT DENTAL [address] [place] [address] Taty, Laura [address] [place] [address] documented as of this encounter Visit Diagnoses Diagnosis Arthralgia, unspecified joint documented in this encounter Care Teams Installment Account Checker Relationship Specialty Start Date End Date Nupur Weir ANP 230 [place] [address] PCP - General Family Medicine 01/16/20 Abel Chavarria RN 505 [place] [address] Registered Nurse Family Medicine 02/26/25 06/18/25 Margareth Chavarria 02/26/25 06/21/25 Abel Chavarria RN 505 [place] [address] Registered Nurse Family Medicine 08/03/25 Isabell Maldonado 08/03/25 Willi Deleon MD [address] [place] [address] Cardiology 08/14/25 Sultana Garcia NP [address] [place] [address] Urology 08/14/25 Fidencio Vila MD [address] [place] [address] [address] [place] [address] Gastroenterology 08/14/25 documented as of this encounter
--- OUTSIDE RECORDS SUMMARY | 2025-08-21 14:52 | XMS_ITS | Clinical Summary ---
Author Organization [facility] Address [address] [place] [address] Phone Care Team Providers Care Doula Name Role Phone Claudia Johnsonfer Diomedes SOLARES Primary Care Provider [phone] Allergies No known active allergies Medications valACYclovir (VALTREX) 1 gram tablet Take 1 tablet (1,000 mg total) by mouth 2 (two) times a day for 7 days. 14 each 08/02/2025 08/09/20 25 cephalexin (KEFLEX) 500 mg capsule Take 1 capsule (500 mg total) by mouth 4 (four) times a day for 7 days. 28 each 08/02/2025 08/09/20 25 ciprofloxacin (CIPRO) 500 mg tablet Take 1 tablet (500 mg total) by mouth 2 (two) times a day for 7 days. 14 each 08/06/2025 08/13/20 25 Encounters Date Type Department Care Team Description 08/06/2025 Results Follow-Up [facility] Emergency [address] [place] [address] Adamaris Cardona RN 08/02/2025 6:42 PM EST - 08/02/2025 7:16 PM EST Emergency [facility] Emergency [address] [place] [address] Vesicular lesion (Primary Dx) Discharge Disposition: Home or Self Care from Last 3 Months Medical History Medical History Date Comments Migraines 10/19/2011 DX:Migraines Borderline hypertension 10/19/2011 DX:Borde rline hypertension Hyperlipidemia LDL goal <130 10/19/2011 DX: Hyperlipidemia LDL goal <130 Family History Medical History Relation Name Comments Heart attack Mother Relation Name Status Comments Mother Social History Tobacco Use Types Packs/Day Years Used Date Smoking Tobacco: Never Alcohol Use Standard Drinks/Week Comments Not Asked 0 (1 standard drink = 0.6 oz pur e alcohol) Comments No Sex and Gender Information Value Date Recorded Sex Assigned at Not on file Legal Sex Female 9:46 AM EST Gender Identity Not on file Sexual Orientation Not on file Last Filed Vital Signs Vital Sign Reading Time Taken Comments Blood Pressure 105/81 08/02/2025 6:06 PM EST Pulse 90 08/02/2025 6:06 PM EST Temperature 36.7 C (98.1 F) 08/02/2025 6:06 PM EST Respiratory Rate 20 08/02/2025 6:06 PM EST Oxygen Saturation 100% 08/02/2025 6:58 PM EST Inhaled Oxygen Concentration - - Weight 60.8 kg (134 lb) 08/02/2025 6:06 PM EST Height 165.1 cm (5' 5 ) 08/02/2025 6:06 PM EST Body Mass Index 22.3 08/02/2025 6:06 PM EST Plan of Treatment Health Maintenance Due Date Last Done Comments Breast Cancer Screening 1966 Colorectal Cancer Screening: Colonoscopy 1966 Cervical Cancer Screening: Pap Smear 1987 RSV Immunization Adult Patients (1 - Risk 50-74 years 1-dose series) 01/27/2016 Depression Screening 08/30/2024 COVID-19 Vaccine ( season) 2025 Influenza Vaccine (#1) 2025 , 09/01/2022, 08/19/2021, Additional history exists Hepatitis C Screening 08/02/2025 Social Influencers of Health Screening 08/02/2025 Hypertension/CHF/CAD Annual BMP Blood Test 05/13/2026 05/13/2025 Cholesterol Screening (Lipid Panel) 08/25/2029 08/25/2024 DTaP,Tdap,and Td Vaccines (7 - Td or Tdap) 05/09/2035 05/09/2025, 07/12/2020, 08/17/2017, Additional history exists Hepatitis B Vaccines Completed 02/15/2008, 10/26/2007, 09/07/2007 HIV Screening Completed 01/04/2024 Zoster Vaccines Completed 10/03/2024, 07/21/2024 Pneumococcal Vaccine: 50+ Years Completed 12/15/2024, 07/17/2018, 02/09/2014 Hepatitis A Vaccines Aged Out 01/12/2025 No long er eligible based on patient's age to complete this topic HIB Vaccines Aged Out No longer eligi ble based on patient's age to complete this topic HPV Vaccines Aged Out No longer eligi ble based on patient's age to complete this topic IPV Vaccines Aged Out No longer eligi ble based on patient's age to complete this topic MMR Vaccines Aged Out No longer eligi ble based on patient's age to complete this topic Meningococcal ACWY Vaccine Aged Out N o longer eligible based on patient's age to complete this topic Meningococcal B Vaccine Aged Out No l onger eligible based on patient's age to complete this topic RSV Immunization Patients Under 20 months Aged Out No longer eligible based on patient's age to complete this topic Varicella Vaccines Aged Out No longer eligible based on patient's age to complete this topic Procedures Procedure Name Priority Date/Time Associated Diagnosis Comments CULTURE WOUND WITH GRAM STAIN STAT 08/02/2025 7:09 PM EST HERPES SIMPLEX VIRUS 1 AND 2 PCR, QUALITATIVE STAT 08/02/2025 7:09 PM EST from Last 3 Months Results * (ABNORMAL) Culture wound with gram stain (08/02/2025 7:09 PM EST) Culture, Wound From Enrichment Broth Staphylococcus coagulase negative(A) HERMILO 08/06/2025 11:[address] [facility] Comment: The organism value for this result has been updated. These results have been appended to the previously preliminary verified report. Edited result: Previously reported as Gram Positive Cocci on 08/05/2025 at 1139 EST. Gram Stain Result Many Polymorphonuclear leukocytes 08/06/2025 11:[address] [facility] Gram Stain Result No epithelial cells seen 08/06/2025 11:[address] [facility] Gram Stain Result No organisms seen 08/06/2025 11:[address] [facility] Swab Structure of left buttock / Unknown Non-blood Collection / Unknown 08/02/2025 7:09 PM EST 08/02/2025 7:21 PM EST Narrative Organism Antibiotic Method Susceptibility Staphylococcus coagulase negative Benzylpenicillin HERMILO >=0.5 ug/ml: Resistant Staphylococcus coagulase negative Oxacillin HERMILO <=0.25 ug/ml: Susceptible Staphylococcus coagulase negative Gentamicin HERMILO <=0.5 ug/ml: Susceptible Staphylococcus coagulase negative Ciprofloxacin HERMILO <=0.5 ug/ml: Susceptible Staphylococcus coagulase negative Levofloxacin HERMILO 0.25 ug/ml: Susceptible Staphylococcus coagulase negative Erythromycin HERMILO >=8 ug/ml: Resistant Staphylococcus coagulase negative Clindamycin HERMILO <=0.25 ug/ml: Resistant Staphylococcus coagulase negative Vancomycin HERMILO <=0.5 ug/ml: Susceptible Staphylococcus coagulase negative Tetracycline HERMILO >=16 ug/ml: Resistant Staphylococcus coagulase negative Rifampin HERMILO <=0.5 ug/ml: Susceptible [facility] MICROBIOLOGY - GENERAL ORDERABLES Final Result [facility] [address] [place] [address], * (ABNORMAL) Herpes simplex virus 1 and 2 molecular study, qualitative (08/02/2025 7:09 PM EST) Specimen Source Dermal - Left Buttock 08/06/2025 10:04 AM EST [facility] Herpes simplex Virus I Not detected Not detected 08/06/2025 10:04 AM EST [facility] Herpes simplex Virus II DETECTED(A) Not detected 08/06/2025 10:04 AM EST [facility] Comment: This test utilizes a real-time polymerase chain reaction procedure to amplify and detect portions of the herpes simplex virus glycoprotein G genes. The analytical sensitivity of this assay is 50 copies/mL. A Not detected result does not rule out infection. This test uses commercial reagents that have not been approved or cleared by the FDA. The FDA has determined that such clearance or approval is not necessary. The performance characteristics of this procedure were determined by [facility]. This test is performed pursuant to a license agreement with [employer] Test performed at [facility], [address], [place] [address] Mayela Diallo MD, PhD - Engineer Technician Swab Structure of left buttock / Unknown Non-blood Collection / Unknown 08/02/2025 7:09 PM EST 08/02/2025 7:21 PM EST us [facility] MICROBIOLOGY - GENERAL ORDERABLES Final Result [facility] [address] [place] [address] from Last 3 Months Additional Health Concerns Infection Onset Date Last Indicated Herpes simplex 08/02/2025 08/02/2025 Insurance MEDICAID - [place] Care Teams Doula Relationship Specialty Start Date End Date Cecilia Johnson DO [address] [place], [place] PCP - General Internal Medicine 06/28/14
--- OUTSIDE RECORDS SUMMARY | 2025-08-21 14:52 | XMS_ITS | Encounter Summary ---
Author Organization [employer] Address [address] [facility] 7t [place] [address] Care Team Providers Care Tar Roofer Name Role Phone Nupur Weir Primary Care Provider [phone] Abel Chavarria RN Unavailable [phone] Margareth Chavarria Unavailable Abel Chavarria RN Unavailable [phone] Isabell Maldonado Unavailable Willi Deleon MD Unavailable Sultana Garcia NP Unavailable Fidencio Vila MD Unavailable [phone] Reason for Visit * Reason Onset Date Comments Med Refill 01/19/2025 Encounter Details Date Type Department Care Team (Late st Contact Info) Description 01/19/2025 Telephone [facility] MEDICINE [address] [place], [place] [phone] Nupur Weir ANP [address] [place], [place] [phone] Med Refill Social History Tobacco Use Types [...] 50 MG tablet To be sent to: [facility] pharmacy documented in this encounter Plan of Treatment Upcoming Encounters Date Type Department Care Team (Late st Contact Info) Description 09/21/2025 3:30 PM EST Office Visit [facility] ADULT DENTAL [address] [place] [address] Angel Lagos, DMD [address] [place] [address] 09/28/2025 9:30 AM EST Medication Management [facility] MEDICINE [address] [place] [address] Fay Leigh, PharmD [address] [place] [address] 10/23/2025 11:00 AM EST Office Visit [address] [address] 11/26/2025 8:45 AM EDT Office Visit [facility] ADULT DENTAL [address] [place] [address] Laura Posey [address] [place] [address] documented as of this encounter Visit Diagnoses Not on filedocumented in this encounter Care Teams Tar Roofer Relationship Specialty Start Date End Date Nupur Weir ANP [address] [place] [address] PCP - General Family Medicine 01/16/20 Abel Chavarria RN [address] [place], [place] Registered Nurse Family Medicine 02/26/25 06/18/25 Margareth Chavarria 02/26/25 06/21/25 Abel Chavarria, RN [address] [place], [place] Registered Nurse Family Medicine 08/03/25 Isabell Maldonado 08/03/25 Willi Deleon MD [address] [place] [address] Cardiology 08/14/25 Sultana Garcia NP [address] [place] [address] Drive [address] [place] [address] Urology 08/14/25 Fidencio Vila MD [address] [place] [address] DR [facility] [address] [place] [id number] Gastroenterology 08/14/25 documented as of this encounter
--- OUTSIDE RECORDS SUMMARY | 2025-08-21 14:52 | XMS_ITS | Encounter Summary ---
Author Organization [facility] Address [address] [place] [address] Care Team Providers Care Wall Steamer Name Role Phone Cecilia Johnson DO Primary Care Provider [phone] Encounter Details Date Type Department Care Team ([facility] st Contact Info) Description 08/06/2025 Results Follow-Up [facility] Emergency [address] [place] [address] Adamaris Cardona RN Social History Tobacco Use Types Packs/Day Years Used Date Smoking Tobacco: Never Alcohol Use Standard Drinks/Week Comments Not Asked 0 (1 standard drink = 0.6 oz pur e alcohol) Comments No Sex and Gender Information Value Date Recorded Sex Assigned at Not on file Legal Sex Female 9:46 AM EST Gender Identity Not on file Sexual Orientation Not on file documented as of this encounter Progress Notes * Adamaris Cardona RN - 08/06/2025 1:12 PM EST Per angélica Casanova- pt can stop keflex and start Cipro 500mg bid x 7 days. Sent via computer by provider. Called and notified pt of test results and new prescription. documented in this encounter Plan of Treatment Not on file documented as of this encounter Visit Diagnoses Not on filedocumented in this encounter Additional Health Concerns Infection Onset Date Last Indicated Resolved Time Herpes simplex 08/02/2025 08/02/2025 documented as of this encounter Care Teams Wall Steamer Relationship Specialty Start Date End Date Cecilia Johnson DO [address] [place] [address] PCP - General Internal Medicine 06/28/14 documented as of this encounter
== END 2025-08-21 13:40 | disposition home or self-care (01) ==
LOC: HO.HHCLNP 13:39
PROVIDERS: Visit Provider Registered Nurse
DX: Z79.891 Long term (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 (principal)
CPT/HCPCS: 80358